=== PATIENT | male | born 1965 | race African-American/Black ===

== ENCOUNTER 2016-10-02 18:04 | Inpatient (IN) | payer OTHER ==
[~2016-10-02] VITALS: Ht 172.7 cm; Wt 72.6 kg
[~2016-10-02 18:04] MED LIST: IBUPROFEN600 MG ORAL; LORazepam Inj 2mg/ml 1ml ONE; VALIUM5 MG ORAL
[2016-10-02] MEDS ORDERED: DILANTIN100 MG ORAL (18:14)
[2016-10-02] MEDS ORDERED: LORazepam Inj 2mg/ml 1ml IM ONE (18:15)
--- NOTE | 2016-10-02 18:27 | Emergency Room Report ---
History of Present Illness General Chief Complaint: Seizure Source: Friend, Medical Record Present Illness HPI 51 YOM with known epilepsy, presents with seizure. BIBEMS. Unable to place IV. Patient had a second seizure in the ED coming in. Has blood in mouth, likely bit lip/tongue. Per EMS, patient compliant with dilantin except for today , "drank ETOH instead." No other trauma on scene per EMS. No family members presents. EMR reviewed, previous visit for ETOH withdrawal seizure. Allergies: Coded Allergies: No Known Allergies (Unverified , 02/10/15) Patient History Past Medical History: seizures Past Surgical History: unable to obtain Pertinent Family History: unable to obtain Social History: Reports: alcohol use Immunizations: UTD Reviewed Nursing Documentation: PMH: Agreed, PSxH: Agreed Nursing Documentation-PMH Past Medical History: No History, Except For Hx Seizures: Yes Review of Systems All Other Systems: limited - Seizure, post-ictal Physical Exam Vital Signs Date Time Temp Pulse Resp B/P Pulse Ox O2 Delivery O2 Flow Rate FiO2 10/02/16 18:05 98.8 165 23 124/104 95 Room Air Sp02 EP Interpretation: reviewed, abnormal General Appearance: normal inspection, other - seizing Head: normocephalic, atraumatic Eyes: bilateral eye EOMI, bilateral eye PERRL ENT: normal ENT inspection, no angioedema, TMs + canals normal, uvula midline, other - blood in oropharyx, small abrasion to tongue Neck: normal inspection, full range of motion, supple, no bony tend Respiratory: normal inspection, lungs clear, normal breath sounds, no respiratory distress, no retraction, no accessory muscle use, no wheezing Cardiovascular #1: regular rate, rhythm, no edema Gastrointestinal: normal inspection, normal bowel sounds, non tender, soft, no guarding, no hernia Genitourinary: no CVA tenderness Musculoskeletal: normal inspection, back normal, normal range of motion, Yusef' s Sign negative Neurologic: normal inspection, responsive, clinical specialist III-XII nml as tested, motor strength/tone normal, speech normal Psychiatric: normal inspection, judgement/insight normal, mood/affect normal Skin: normal inspection, normal color, no rash Medical Decision Making Diagnostic Impression: Primary Impression: Seizure disorder ER Course Bicarb level low and ABG with metabolic alkalosis likely d/t hyperpnea due to seizures Seizures ablated with IV ativan in ED 1g Keppra given All anti-epileptic levels are 0. ETOH level 39 - expected higher based on endorsed recent ETOH binge, but if this is low, likely ETOH withdrawal seizures Endorsed to Dr Guthrie for tele admission at 719pm EKG Diagnostic Results Rate: tachycardiac Rhythm: NSR ST Segments: no acute changes ASA given to the pt in ED: No Rhythm Strip Diag. Results EP Interpretation: yes Rate: 110 Rhythm: NSR, no PVC's, no ectopy Last Vital Signs Date Time Temp Pulse Resp B/P Pulse Ox O2 Delivery O2 Flow Rate FiO2 10/02/16 18:05 98.8 165 23 124/104 95 Room Air Status: improved Disposition: ADMITTED INPATIENT Condition: Serious Referrals: NOT CHOSEN IPA/,REFERRING (PCP) MERLINE RODRIGUEZ M.D. Oct 02, 2016 18:27
[2016-10-02] MEDS ORDERED: LORazepam Inj 2mg/ml 1ml IV ONE (18:30)
[2016-10-02 18:32] VITALS: BP 110/67
[2016-10-02 18:44] LABS: BASOPHILS % (AUTO) 3.1 % (0.0-2.0); EOSINOPHILS % (AUTO) 0.2 % (0.0-3.0); LYMPHOCYTES % (AUTO) 23.9 % (20.0-45.0); MEAN CORPUSCULAR HEMOGLOBIN 33.1 PG (27.0-31.0); MEAN CORPUSCULAR HGB CONC 32.1 G/DL (32.0-36.0); MEAN CORPUSCULAR VOLUME 103 FL (80-99); MEAN PLATELET VOLUME 6.2 FL (6.5-10.1); NEUTROPHILS % (AUTO) 61.9 % (45.0-75.0); PLATELET COUNT 225 K/UL (150-450); RED BLOOD COUNT 4.76 M/UL (4.70-6.10); RED CELL DISTRIBUTION WIDTH 12.4 % (11.6-14.8)
[2016-10-02] MEDS ORDERED: levETIRAcetam 1,000 MG in D5W 110 ML IVPB STA (18:52)
[2016-10-02 18:55] LABS: ACETAMINOPHEN < 10 ug/mL (10-30); ALCOHOL 39 mg/dL
[2016-10-02] MEDS ORDERED: levETIRAcetam 500mg vial IV ONE (19:22)
[2016-10-02 20:04] LABS: ALANINE AMINOTRANSFERASE 27 U/L (3-41); ALBUMIN/GLOBULIN RATIO 1.2 (1.0-2.7); ASPARTATE AMINO TRANSFERASE 78 U/L (5-40); CALCIUM 9.7 mg/dL (8.6-10.2); CHLORIDE 92 mEQ/L (98-107); CREATININE 0.8 mg/dL (0.7-1.2); GLOMERULAR FILTRATION RATE > 60 mL/min (>60); HEMOLYSIS 9; POTASSIUM 3.9 mEQ/L (3.4-4.9); SODIUM 145 mEQ/L (135-145); TOTAL PROTEIN 8.2 g/dL (6.6-8.7)
[2016-10-02 20:10] LABS: ANION GAP 44 (5-15)
[2016-10-02 20:13] LABS: CARBON DIOXIDE 9 mEQ/L (20-30)
[2016-10-02 20:40] VITALS: BP 123/69
[2016-10-02 21:26] VITALS: BP 120/59
[2016-10-02 22:25] LABS: ABG BASE EXCESS -1.3
[2016-10-02 22:26] LABS: ABG ALLEN TEST POSITIVE; ABG PCO2 31.6 mmHg (35.0-45.0)
[2016-10-02] MEDS ORDERED: Miralax 17gm pkt ORAL PRN (23:30)
[2016-10-02] MEDS ORDERED: chlordiazePOXIDE 25mg Cap ORAL PRN (23:30)
[2016-10-02] MEDS ORDERED: LORazepam Inj 2mg/ml 1ml IV PRN (23:30)
[2016-10-02] MEDS ORDERED: Morphine Sulfate 2mg/ml Inj IVP PRN (23:30)
[2016-10-02] MEDS ORDERED: Zolpidem 5mg tab ORAL PRN (23:30)
[2016-10-02] MEDS ORDERED: Mylanta II UD 30ml ORAL PRN (23:30)
[2016-10-03 00:16] VITALS: BP 119/76
[2016-10-03 04:14] VITALS: BP 122/82
[2016-10-03 07:32] LABS: ALANINE AMINOTRANSFERASE 21 U/L (3-41); ALBUMIN/GLOBULIN RATIO 1.2 (1.0-2.7); ANION GAP 18 (5-15); ASPARTATE AMINO TRANSFERASE 57 U/L (5-40); CALCIUM 9.3 mg/dL (8.6-10.2); CARBON DIOXIDE 26 mEQ/L (20-30); CHLORIDE 98 mEQ/L (98-107); CREATININE 0.6 mg/dL (0.7-1.2); GLOMERULAR FILTRATION RATE > 60 mL/min (>60); HEMOLYSIS 5; MEAN CORPUSCULAR HEMOGLOBIN 34.1 PG (27.0-31.0); MEAN CORPUSCULAR VOLUME 100 FL (80-99); MEAN PLATELET VOLUME 7.9 FL (6.5-10.1); PLATELET COUNT 206 K/UL (150-450); POTASSIUM 3.9 mEQ/L (3.4-4.9); RED BLOOD COUNT 4.31 M/UL (4.70-6.10); SODIUM 142 mEQ/L (135-145); TOTAL PROTEIN 7.3 g/dL (6.6-8.7); WHITE BLOOD COUNT 18.3 K/UL (4.8-10.8)
[2016-10-03 07:46] VITALS: BP 130/89
[2016-10-03] MEDS ORDERED: Thiamine HCl 100 MG, Folic Acid 1 MG, Magnesium Sulfate 2,000 MG, Multivitamin - 12 Inj... IV SCH ×5 (08:00)
[2016-10-03] MEDS: chlordiazePOXIDE 25mg Cap ORAL PRN (08:05)
[2016-10-03] MEDS: Heparin 5000 units/ml inj SUBQ SCH ×2 (09:05→22:14)
[2016-10-03] MEDS: Thiamine 100mg in D5W 55ml IVPB SCH (09:05)
[2016-10-03] MEDS: Phenytoin 100mg cap ORAL SCH ×3 (09:05→19:13)
[2016-10-03] MEDS: Folic Acid 1 MG, Magnesium Sulfate 2,000 MG, Multivitamin - 12 Injection 10 ML in NS w/... IV SCH (09:06)
[2016-10-03 11:28] VITALS: BP 123/78
[2016-10-03 11:53] LABS: BAND NEUTROPHILS % (MANUAL) 1 % (0-8); BASOPHILS % (MANUAL) 0 % (0-2); EOSINOPHILS % (MANUAL) 0 % (0-3); LYMPHOCYTES % (MANUAL) 3 % (20-45); NEUTROPHILS % (MANUAL) 88 % (45-75); PLATELET ESTIMATE ADEQUATE; PLATELET MORPHOLOGY NORMAL; TOTAL CELLS COUNTED 100
[2016-10-03 11:54] LABS: STOMATOCYTES OCCASIONAL
--- NOTE | 2016-10-03 11:58 | History and Physical ---
History of Present Illness General Date patient seen: Oct 03, 2016 Reason for Hospitalization: Seizure Present Illness HPI 51 year old with known hx of epilepsy, ETOH abuse BIBA with CC of seizure, he had a second seizure in the ED. He was treated and admitted to telemetry. Currently he is awake, stating that he ran out of his Dilantin a few month ago. He also stated that he started drinking. Allergies: Coded Allergies: No Known Allergies (Unverified , 02/10/15) Medication History Scheduled Phenytoin Sodium Extended* (Dilantin*), Unknown Dose ORAL THREE TIMES A DAY, ( Reported) Scheduled PRN Diazepam* (Valium*), 5 MG ORAL BID PRN for Muscle Spasm Ibuprofen* (Motrin*), 600 MG ORAL Q8H PRN for For Pain Patient History Healthcare decision maker Resuscitation status Full Code Advanced Directive on File No Past Medical/Surgical History Past Medical/Surgical History: (1) Alcohol withdrawal seizure (2) Seizure disorder (3) Alcohol withdrawal seizure Review of Systems All Other Systems: negative except mentioned in HPI Physical Exam General Appearance: WD/WN Lines, tubes and drains: peripheral, central line HEENT: normocephalic, atraumatic Neck: non-tender, normal alignment Respiratory/Chest: chest wall non-tender, lungs clear Breasts: no masses Cardiovascular/Chest: normal peripheral pulses Abdomen: normal bowel sounds, non tender Genitourinary/Rectal: normal genital exam Last 24 Hour Vital Signs Date Time Temp Pulse Resp B/P Pulse Ox O2 Delivery O2 Flow Rate FiO2 10/03/16 11:28 99.0 110 20 123/78 95 Room Air 10/03/16 08:00 111 10/03/16 07:46 99.1 124 20 130/89 96 Room Air 10/03/16 04:14 98.5 121 22 122/82 97 Room Air 10/03/16 04:00 125 10/03/16 00:16 98.8 130 20 119/76 98 Room Air 10/03/16 00:00 126 10/02/16 21:26 98.2 132 22 120/59 96 Room Air 10/02/16 20:41 98.7 143 19 110/67 94 Room Air 10/02/16 20:40 98.5 130 24 123/69 100 Room Air 10/02/16 19:29 143 19 Room Air 10/02/16 18:32 98.7 143 19 110/67 94 Room Air 10/02/16 18:05 98.8 165 23 124/104 95 Room Air Intake and Output 10/02/16 10/03/16 19:00 07:00 Intake Total 270 ml Output Total 300 ml Balance -30 ml Intake IV Total 270 ml Output Urine Total 300 ml # Voids 4 # Bowel Movements 4 Laboratory Tests Test 10/02/16 18:22 10/02/16 19:00 10/02/16 20:33 10/03/16 05:00 White Blood Count 10.0 K/UL (4.8-10.8) 18.3 K/UL (4.8-10.8) #H Red Blood Count 4.76 M/UL (4.70-6.10) 4.31 M/UL (4.70-6.10) L Hemoglobin 15.7 G/DL (14.2-18.0) 14.7 G/DL (14.2-18.0) Hematocrit 49.0 % (42.0-52.0) 43.1 % (42.0-52.0) Mean Corpuscular Volume 103 FL (80-99) H 100 FL (80-99) H Mean Corpuscular Hemoglobin 33.1 PG (27.0-31.0) H 34.1 PG (27.0-31.0) H Mean Corpuscular Hemoglobin Concent 32.1 G/DL (32.0-36.0) 34.0 G/DL (32.0-36.0) Red Cell Distribution Width 12.4 % (11.6-14.8) 12.0 % (11.6-14.8) Platelet Count 225 K/UL (150-450) 206 K/UL (150-450) Mean Platelet Volume 6.2 FL (6.5-10.1) L 7.9 FL (6.5-10.1) Neutrophils (%) (Auto) 61.9 % (45.0-75.0) % (45.0-75.0) Lymphocytes (%) (Auto) 23.9 % (20.0-45.0) % (20.0-45.0) Monocytes (%) (Auto) 11.0 % (1.0-10.0) H % (1.0-10.0) Eosinophils (%) (Auto) 0.2 % (0.0-3.0) % (0.0-3.0) Basophils (%) (Auto) 3.1 % (0.0-2.0) H % (0.0-2.0) Sodium Level 145 mEQ/L (135-145) 142 mEQ/L (135-145) Potassium Level 3.9 mEQ/L (3.4-4.9) 3.9 mEQ/L (3.4-4.9) Chloride Level 92 mEQ/L (98-107) L 98 mEQ/L (98-107) Carbon Dioxide Level 9 mEQ/L (20-30) *L 26 mEQ/L (20-30) Anion Gap 44 (5-15) H 18 (5-15) H Blood Urea Nitrogen 3 mg/dL (7-23) L 4 mg/dL (7-23) L Creatinine 0.8 mg/dL (0.7-1.2) 0.6 mg/dL (0.7-1.2) L Estimat Glomerular Filtration Rate > 60 mL/min (>60) > 60 mL/min (>60) Glucose Level 140 mg/dL (74-106) H 124 mg/dL (74-106) H Calcium Level 9.7 mg/dL (8.6-10.2) 9.3 mg/dL (8.6-10.2) Total Bilirubin 0.8 mg/dL (0.0-1.2) 1.0 mg/dL (0.0-1.2) Aspartate Amino Transf (AST/SGOT) 78 U/L (5-40) H 57 U/L (5-40) H Alanine Aminotransferase (ALT/SGPT) 27 U/L (3-41) 21 U/L (3-41) Alkaline Phosphatase 81 U/L (40-129) 64 U/L (40-129) Total Creatine Kinase 130 U/L (38-174) Total Protein 8.2 g/dL (6.6-8.7) 7.3 g/dL (6.6-8.7) Albumin 4.5 g/dL (3.5-5.2) 4.1 g/dL (3.5-5.2) Globulin 3.7 g/dL 3.2 g/dL Albumin/Globulin Ratio 1.2 (1.0-2.7) 1.2 (1.0-2.7) Salicylates Level < 1 mg/dL (10-30) L Acetaminophen Level < 10 ug/mL (10-30) L Phenytoin (Dilantin) Level < 0.8 ug/mL (10-20) L Serum Alcohol 39 mg/dL Urine Opiates Screen Negative (NEGATIVE) Urine Barbiturates Screen Negative (NEGATIVE) Phencyclidine (PCP) Screen Negative (NEGATIVE) Urine Amphetamines Screen Negative (NEGATIVE) Urine Benzodiazepines Screen Negative (NEGATIVE) Urine Cocaine Screen Negative (NEGATIVE) Urine Marijuana (THC) Screen Negative (NEGATIVE) Arterial Blood pH 7.453 (7.350-7.450) Arterial Blood Partial Pressure CO2 31.6 mmHg (35.0-45.0) L Arterial Blood Partial Pressure O2 100.5 mmHg (75.0-100.0) H Arterial Blood HCO3 21.6 mmol/L (22.0-26.0) L Arterial Blood Oxygen Saturation 97.6 % (92.0-98.0) Arterial Blood Base Excess -1.3 Cesar Test Positive Neutrophils % (Manual) Pending Lymphocytes % (Manual) Pending Platelet Estimate Pending Platelet Morphology Pending Microbiology Date/Time Source Procedure Growth Status 10/02/16 22:15 Stool Clostridium difficile Toxin Assay - Final Complete Height (Feet): 5 Height (Inches): 8.00 Weight (Pounds): 160 Medications Current Medications Medications (Trade) Dose Ordered Sig/Tonny Route PRN Reason Start Time Stop Time Status Last Admin Dose Admin Acetaminophen (Tylenol) 650 mg Q4H PRN ORAL fever 10/02/16 23:30 11/01/16 23:29 Al Hydroxide/Mg Hydroxide (Mylanta II) 30 ml Q6H PRN ORAL dyspepsia 10/02/16 23:30 11/01/16 23:29 Chlordiazepoxide (Librium) 25 mg Q6H PRN ORAL anxiety and tachycardia 10/03/16 11:30 10/10/16 11:29 10/03/16 08:05 Dextrose STAT PRN IV Hypoglycemia 10/02/16 23:30 11/01/16 23:29 Diazepam (Valium) 5 mg BID PRN ORAL Muscle Spasm 10/02/16 23:30 3/4/17 23:29 Folic Acid 1 mg/ Magnesium Sulfate 2000 mg/ Multivitamins 10 ml/Sodium Chloride 1,014.2 ml @ 125 mls/ hr Q24H IV 10/03/16 09:00 11/02/16 08:59 10/03/16 09:06 Heparin Sodium (Porcine) (Heparin 5000 units/ml) 5,000 units EVERY 12 HOURS SUBQ 10/03/16 09:00 11/02/16 08:59 10/03/16 09:05 Lorazepam (Ativan 2mg/ml 1ml) 2 mg EVERY HOUR PRN IV seizures 10/02/16 23:30 10/09/16 23:29 Morphine Sulfate (Morphine Sulfate) 1 mg Q4H PRN IVP For Pain 10/02/16 23:30 10/09/16 23:29 Ondansetron HCl (Zofran) 4 mg Q6H PRN IVP Nausea & Vomiting 10/02/16 23:30 11/01/16 23:29 10/03/16 02:50 Phenytoin (Dilantin) 100 mg THREE TIMES A DAY ORAL 10/03/16 09:00 11/02/16 08:59 10/03/16 09:05 Polyethylene Glycol (Miralax) 17 gm HSPRN PRN ORAL Constipation 10/02/16 23:30 11/01/16 23:29 Thiamine HCl/ Dextrose (Vitamin B1/D5W) 56 ml @ 112 mls/hr Q24H IVPB 10/03/16 09:00 11/02/16 08:59 10/03/16 09:05 Zolpidem Tartrate (Ambien) 5 mg HSPRN PRN ORAL Insomnia 10/02/16 23:30 11/01/16 23:29 Assessment/Plan Problem List: (1) Alcohol withdrawal seizure ICD Codes: F10.239 - Alcohol dependence with withdrawal, unspecified SNOMED: 826046994 (2) Seizure disorder ICD Codes: G40.909 - Epilepsy, unspecified, not intractable, without status epilepticus SNOMED: 484181676 (3) Non-compliance ICD Codes: Z91.19 - Patient's noncompliance with other medical treatment and regimen SNOMED: 8684182 Assessment/Plan resume Dilantin Banana bag Iv fluids Neuro evaluation YAMILET HUNT Oct 03, 2016 11:58
[2016-10-03] MEDS ORDERED: chlorproMAZINE 10mg tab ORAL PRN (12:00)
--- NOTE | 2016-10-03 12:18 | Neurology Progress Note ---
Objective Physical Exam Last Vital Signs Date Time Temp Pulse Resp B/P Pulse Ox O2 Delivery O2 Flow Rate FiO2 10/03/16 11:28 99.0 110 20 123/78 95 Room Air Laboratory Tests Test 10/02/16 18:22 10/02/16 19:00 10/02/16 20:33 10/03/16 05:00 White Blood Count 10.0 K/UL (4.8-10.8) 18.3 K/UL (4.8-10.8) #H Red Blood Count 4.76 M/UL (4.70-6.10) 4.31 M/UL (4.70-6.10) L Hemoglobin 15.7 G/DL (14.2-18.0) 14.7 G/DL (14.2-18.0) Hematocrit 49.0 % (42.0-52.0) 43.1 % (42.0-52.0) Mean Corpuscular Volume 103 FL (80-99) H 100 FL (80-99) H Mean Corpuscular Hemoglobin 33.1 PG (27.0-31.0) H 34.1 PG (27.0-31.0) H Mean Corpuscular Hemoglobin Concent 32.1 G/DL (32.0-36.0) 34.0 G/DL (32.0-36.0) Red Cell Distribution Width 12.4 % (11.6-14.8) 12.0 % (11.6-14.8) Platelet Count 225 K/UL (150-450) 206 K/UL (150-450) Mean Platelet Volume 6.2 FL (6.5-10.1) L 7.9 FL (6.5-10.1) Neutrophils (%) (Auto) 61.9 % (45.0-75.0) % (45.0-75.0) Lymphocytes (%) (Auto) 23.9 % (20.0-45.0) % (20.0-45.0) Monocytes (%) (Auto) 11.0 % (1.0-10.0) H % (1.0-10.0) Eosinophils (%) (Auto) 0.2 % (0.0-3.0) % (0.0-3.0) Basophils (%) (Auto) 3.1 % (0.0-2.0) H % (0.0-2.0) Sodium Level 145 mEQ/L (135-145) 142 mEQ/L (135-145) Potassium Level 3.9 mEQ/L (3.4-4.9) 3.9 mEQ/L (3.4-4.9) Chloride Level 92 mEQ/L (98-107) L 98 mEQ/L (98-107) Carbon Dioxide Level 9 mEQ/L (20-30) *L 26 mEQ/L (20-30) Anion Gap 44 (5-15) H 18 (5-15) H Blood Urea Nitrogen 3 mg/dL (7-23) L 4 mg/dL (7-23) L Creatinine 0.8 mg/dL (0.7-1.2) 0.6 mg/dL (0.7-1.2) L Estimat Glomerular Filtration Rate > 60 mL/min (>60) > 60 mL/min (>60) Glucose Level 140 mg/dL (74-106) H 124 mg/dL (74-106) H Calcium Level 9.7 mg/dL (8.6-10.2) 9.3 mg/dL (8.6-10.2) Total Bilirubin 0.8 mg/dL (0.0-1.2) 1.0 mg/dL (0.0-1.2) Aspartate Amino Transf (AST/SGOT) 78 U/L (5-40) H 57 U/L (5-40) H Alanine Aminotransferase (ALT/SGPT) 27 U/L (3-41) 21 U/L (3-41) Alkaline Phosphatase 81 U/L (40-129) 64 U/L (40-129) Total Creatine Kinase 130 U/L (38-174) Total Protein 8.2 g/dL (6.6-8.7) 7.3 g/dL (6.6-8.7) Albumin 4.5 g/dL (3.5-5.2) 4.1 g/dL (3.5-5.2) Globulin 3.7 g/dL 3.2 g/dL Albumin/Globulin Ratio 1.2 (1.0-2.7) 1.2 (1.0-2.7) Salicylates Level < 1 mg/dL (10-30) L Acetaminophen Level < 10 ug/mL (10-30) L Phenytoin (Dilantin) Level < 0.8 ug/mL (10-20) L Serum Alcohol 39 mg/dL Urine Opiates Screen Negative (NEGATIVE) Urine Barbiturates Screen Negative (NEGATIVE) Phencyclidine (PCP) Screen Negative (NEGATIVE) Urine Amphetamines Screen Negative (NEGATIVE) Urine Benzodiazepines Screen Negative (NEGATIVE) Urine Cocaine Screen Negative (NEGATIVE) Urine Marijuana (THC) Screen Negative (NEGATIVE) Arterial Blood pH 7.453 (7.350-7.450) Arterial Blood Partial Pressure CO2 31.6 mmHg (35.0-45.0) L Arterial Blood Partial Pressure O2 100.5 mmHg (75.0-100.0) H Arterial Blood HCO3 21.6 mmol/L (22.0-26.0) L Arterial Blood Oxygen Saturation 97.6 % (92.0-98.0) Arterial Blood Base Excess -1.3 Cesar Test Positive Differential Total Cells Counted 100 Neutrophils % (Manual) 88 % (45-75) H Lymphocytes % (Manual) 3 % (20-45) L Monocytes % (Manual) 8 % (1-10) Eosinophils % (Manual) 0 % (0-3) Basophils % (Manual) 0 % (0-2) Band Neutrophils 1 % (0-8) Platelet Estimate Adequate Platelet Morphology Normal Stomatocytes Occasional Impression/Recommendations Problems: (1) Seizure disorder (2) Non-compliance Status: stable Recommendations #[id number] ATILIO CHOWDHURY Oct 03, 2016 12:18
[2016-10-03] MEDS ORDERED: Phenytoin 500 MG in NS 110 ML IVPB ONE (14:00)
[2016-10-03 16:00] VITALS: BP 99/60
[2016-10-03] MEDS ORDERED: Tubing IV Secondary IV ONE (16:27)
[2016-10-03] MEDS ORDERED: NS 275ml ONE (16:27)
[2016-10-03] MEDS ORDERED: Phenytoin 250mg/5ml vial ONE (19:02)
--- NOTE | 2016-10-03 19:38 | Consultation ---
DATE OF CONSULTATION: 10/03/2016 NEUROLOGICAL CONSULTATION CONSULTING PHYSICIAN: González Myers M.D. REFERRING PHYSICIAN: Marvin Guthrie M.D. HISTORY OF PRESENT ILLNESS: This is a 51-year-old gentleman who is seen in neurological consultation to evaluate the exacerbation of chronic seizure disorder. The patient informed me that he has chronic seizures, which he felt were related to his alcohol abuse, but he was maintained previously on Dilantin, but had no seizures for the last year and he stopped taking medications. He also tried to stop drinking alcohol, but later clarifying that he actually does drink a small amount of beer. The patient was brought to this hospital after he had episodes of seizure. There was another seizure when he was brought to emergency room. He has signs of bitten tongue and lips. On arrival, his vital signs, blood pressure 124/104, respirations 20, heart rate of 165, and temperature 98. His initial laboratory work included a chemistry panel with alcohol level of 39 and phenytoin less than 0.8. Chemistry panel with carbon dioxide of 9, chloride 92, anion gap of 44, blood sugar 140, elevated AST of 78, and CPK of 120. His CBC study was unremarkable except elevated MCV and MCH. Repeat study today revealed WBC 18.3. The patient was admitted for further diagnostic studies and treatment. He was started on Dilantin 100 mg t.i.d., p.r.n. Zofran, p.r.n. lorazepam, Librium p.r.n., thiamine, and he was loaded with Keppra 1000 mg. Since admission, there was no further seizure activity. The patient developed persistent hiccup. FAMILY HISTORY: Noncontributory. SOCIAL HISTORY: The patient lives with his girlfriend. He is on disability. PAST MEDICAL HISTORY: History of alcohol abuse, history of seizure activities, and history of chronic psychiatric disease, as a result of which, he was placed on General Relief. The patient is off antipsychotic treatment. HABITS: The patient denies smoking, denies drug abuse, but admits to drinking "beer." REVIEW OF SYSTEMS: Denies headache or dizziness. No chest pain. No palpitation. No respiratory problem. Denies abdominal pain or discomfort. No urine or bowel incontinence. He has some hiccup and some bitten tongue. PHYSICAL EXAMINATION: GENERAL: This is a well-developed, well-nourished man, not in acute distress, lying comfortably in bed asleep. He is easily arousable. VITAL SIGNS: Stable except persistent sinus tachycardia, rate of 110. HEENT: Head, normocephalic. No evidence of injuries except the bitten tongue. NECK: Supple. No meningeal signs. MUSCULOSKELETAL: Unremarkable. There are no deformities. Peripheral pulses 1+ and symmetric. MENTAL STATUS: The patient is alert and oriented x3. Speech is fluent. Language intact. There is no aphasia. No apraxia. Cooperative and follows commands. CRANIAL NERVES: Cranial Nerve II: Pupils both responding to light and accommodation. Extraocular movements are intact. No nystagmus. CRANIAL NERVE V: Normal corneal responses. CRANIAL NERVE VII: No facial asymmetry. CRANIAL NERVE VIII: Grossly normal hearing. CRANIAL NERVE IX THROUGH XII: Tongue is in midline. Symmetric palate elevation. MOTOR EXAMINATION: Normal muscle tone. Strength 5/5 in all extremities. No involuntary movement. Deep tendon reflexes are 1+ and symmetric with downgoing toes on both sides. SENSORY EXAMINATION: Normal to pinprick and light touch. GAIT: Somewhat stooped, but stable. IMPRESSION: 1. Chronic seizure disorder exacerbation due to noncompliance. 2. Alcohol abuse, alcohol intoxication. 3. Chronic psychiatric disorder. 4. History of recurrent hiccups. RECOMMENDATION: Talked to the patient to restart the use of Dilantin. We will reload him with 1 g, followed by 300 mg at bedtime. Continue with thiamine and folate supplements. Recheck blood levels in a.m. We will follow with you. Thank you for allowing me to see this interesting patient in neurological consultation. González Myers M.D. DR: KAT JOB#: [id number] CC:
[2016-10-03 20:00] VITALS: BP 87/60
[2016-10-04 00:37] VITALS: BP 104/71
[2016-10-04] MEDS: chlordiazePOXIDE 25mg Cap ORAL PRN ×2 (01:47→12:49)
[2016-10-04 04:10] VITALS: BP 116/76
[2016-10-04 08:02] VITALS: BP 120/81
[2016-10-04] MEDS: Phenytoin 100mg cap ORAL SCH ×2 (09:15→12:42)
[2016-10-04] MEDS: Heparin 5000 units/ml inj SUBQ SCH (09:16)
[2016-10-04] MEDS: Thiamine 100mg in D5W 55ml IVPB SCH (10:04)
[2016-10-04] MEDS: Folic Acid 1 MG, Magnesium Sulfate 2,000 MG, Multivitamin - 12 Injection 10 ML in NS w/... IV SCH (10:38)
[2016-10-04 11:21] VITALS: BP 98/63
--- NOTE | 2016-10-04 12:11 | Neurology Progress Note ---
Interim History Interim History ROS Limited/Unobtainable: No Complaints: none Events: noted to be confused in AM Objective Physical Exam Last Vital Signs Date Time Temp Pulse Resp B/P Pulse Ox O2 Delivery O2 Flow Rate FiO2 10/04/16 11:21 98.6 113 20 98/63 99 Room Air General: well developed, well nourished, no acute distress Head: normocophalic, atraumatic Neck: no rigidity Neurologic Exam Mental Status: awake, alert, other - forgetful, ox2 Speech: normal speech, no dysarthia Language: normal language, no aphasia Cranial Nerve II: fundus normal, visual sheikh, no papilledema Cranial Nerves III, IV, : PERRLA, EOMI, pupils Cranial Nerve V: normal facial sensations, temporales function normal, masseters function normal, pterygoids function normal Cranial Nerve VII: no facial asymmetry, normal facial expressions Cranial Nerve VIII: normal hearing, no nystagmus Cranial Nerve IX: normal palate elevation, gag response Cranial Nerve X: no voice hoarseness Cranial Nerve XI: SCM symmetric, trapezii function normal Cranial Nerve XII: tongue midline, no tongue atrophy/fasciculations Motor System: normal muscle tone, strength 5/5, no involuntary movement, no muscle wasting Sensory: normal pinprick, normal light touch, normal position sense, normal graphesthesia Coordination: normal finger to nose bilaterally, normal heel to frances bilaterally, negative Romberg test Deep Tendon Reflexes: 0 ankle (L), 0 ankle (R), 0 bicep (L), 0 bicep (R), 0 brachioradialis (L), 0 brachioradialis (R), 0 knee (L), 0 knee (R), 0 tricep (L) , 0 tricep (R) Reflexes: flexor plantar (L), flexor plantar (R) Impression/Recommendations Problems: (1) Seizure disorder (2) Non-compliance (3) Episode of confusion Status: stable Recommendations EEG #[id number] DPH level tsh b12 MRI brain ATILIO CHOWDHURY Oct 04, 2016 12:11
[2016-10-04 13:23] LABS: CHOLESTEROL/HDL RATIO 2.8 (3.3-4.4)
[2016-10-04 13:29] LABS: THYROID STIMULATING HORMONE 2.01 uIU/mL (0.300-4.500)
--- NOTE | 2016-10-04 14:43 | Pulmonology Progress Note ---
Assessment/Plan Problems: (1) Alcohol withdrawal seizure (2) Seizure disorder (3) Non-compliance (4) Tachycardia Assessment/Plan IV fluids prn benzodiazepines Anti-seizures by neurology MRI ordered Subjective ROS Limited/Unobtainable: No Constitutional: Reports: no symptoms HEENT: Repors: no symptoms Respiratory: Reports: no symptoms Cardiovascular: Reports: no symptoms Gastrointestinal/Abdominal: Reports: no symptoms Allergies: Coded Allergies: No Known Allergies (Unverified , 02/10/15) Objective Last 24 Hour Vital Signs Date Time Temp Pulse Resp B/P Pulse Ox O2 Delivery O2 Flow Rate FiO2 10/04/16 12:19 118 10/04/16 11:21 98.6 113 20 98/63 99 Room Air 10/04/16 08:08 124 10/04/16 08:02 96.9 114 20 120/81 97 Room Air 10/04/16 04:10 98.7 98 19 116/76 99 Room Air 10/04/16 04:00 111 10/04/16 00:37 98.6 100 21 104/71 98 Room Air 10/04/16 00:00 114 10/03/16 20:00 97.9 88 19 87/60 98 Room Air 10/03/16 20:00 86 10/03/16 16:00 99 10/03/16 16:00 97.9 101 20 99/60 97 Room Air Intake and Output 10/03/16 10/04/16 19:00 07:00 Intake Total 1131 ml 700 ml Output Total 500 ml Balance 1131 ml 200 ml Intake Oral 450 ml 200 ml IV Total 681 ml 500 ml Output Urine Total 500 ml # Voids 1 HEENT: normocephalic Respiratory/Chest: chest wall non-tender, lungs clear Cardiovascular: normal peripheral pulses, normal rate Abdomen: normal bowel sounds, no organomegaly Extremities: no cyanosis 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 Lymphatic: no neck adenopathy Microbiology Date/Time Source Procedure Growth Status 10/02/16 22:15 Stool Clostridium difficile Toxin Assay - Final Complete Laboratory Tests 10/04/16 12:45: Triglycerides Level 102, Cholesterol Level 149, LDL Cholesterol 76, HDL Cholesterol 53, Cholesterol/HDL Ratio 2.8L, Vitamin B12 Level 968H, Thyroid Stimulating Hormone (TSH) 2.010, Phenytoin (Dilantin) Level 5.5L Current Medications Medications (Trade) Dose Ordered Sig/Tonny Route PRN Reason Start Time Stop Time Status Last Admin Dose Admin Acetaminophen (Tylenol) 650 mg Q4H PRN ORAL fever 10/02/16 23:30 11/01/16 23:29 Al Hydroxide/Mg Hydroxide (Mylanta II) 30 ml Q6H PRN ORAL dyspepsia 10/02/16 23:30 11/01/16 23:29 Chlordiazepoxide (Librium) 25 mg Q6H PRN ORAL anxiety and tachycardia 10/03/16 11:30 10/10/16 11:29 10/04/16 12:49 Chlorpromazine (Thorazine) 10 mg Q6H PRN ORAL hiccup 10/03/16 12:00 11/02/16 11:59 10/03/16 13:14 Dextrose STAT PRN IV Hypoglycemia 10/02/16 23:30 11/01/16 23:29 Diazepam (Valium) 5 mg BID PRN ORAL Muscle Spasm 10/02/16 23:30 10/09/16 23:29 Folic Acid 1 mg/ Magnesium Sulfate 2000 mg/ Multivitamins 10 ml/Sodium Chloride 1,014.2 ml @ 125 mls/ hr Q24H IV 10/03/16 09:00 11/02/16 08:59 10/04/16 10:38 Heparin Sodium (Porcine) (Heparin 5000 units/ml) 5,000 units EVERY 12 HOURS SUBQ 10/03/16 09:00 11/02/16 08:59 10/04/16 09:16 Lorazepam (Ativan 2mg/ml 1ml) 2 mg EVERY HOUR PRN IV seizures 10/02/16 23:30 10/09/16 23:29 Morphine Sulfate (Morphine Sulfate) 1 mg Q4H PRN IVP For Pain 10/02/16 23:30 10/09/16 23:29 Ondansetron HCl (Zofran) 4 mg Q6H PRN IVP Nausea & Vomiting 10/02/16 23:30 11/01/16 23:29 10/03/16 02:50 Phenytoin (Dilantin) 100 mg THREE TIMES A DAY ORAL 10/03/16 09:00 11/02/16 08:59 10/04/16 12:42 Polyethylene Glycol (Miralax) 17 gm HSPRN PRN ORAL Constipation 10/02/16 23:30 11/01/16 23:29 Thiamine HCl/ Dextrose (Vitamin B1/D5W) 56 ml @ 112 mls/hr Q24H IVPB 10/03/16 09:00 11/02/16 08:59 10/04/16 10:04 Zolpidem Tartrate (Ambien) 5 mg HSPRN PRN ORAL Insomnia 10/02/16 23:30 11/01/16 23:29 YAMILET HUNT Oct 04, 2016 14:43
--- NOTE | 2016-10-04 15:12 | Cardiology Progress Note ---
Assessment/Plan Assessment/Plan [id number] sinus tachy demaand related etoh seizure / epilepsy agitation hr has improved form 140-160 at admission ot present level of 110's he seem agitated and wasn to go home if agrees to stay will order echo keep on ivf tsh normal consider u/a and urine tox screen Objective Last 24 Hour Vital Signs Date Time Temp Pulse Resp B/P Pulse Ox O2 Delivery O2 Flow Rate FiO2 10/04/16 12:19 118 10/04/16 11:21 98.6 113 20 98/63 99 Room Air 10/04/16 08:08 124 10/04/16 08:02 96.9 114 20 120/81 97 Room Air 10/04/16 04:10 98.7 98 19 116/76 99 Room Air 10/04/16 04:00 111 10/04/16 00:37 98.6 100 21 104/71 98 Room Air 10/04/16 00:00 114 10/03/16 20:00 97.9 88 19 87/60 98 Room Air 10/03/16 20:00 86 10/03/16 16:00 99 10/03/16 16:00 97.9 101 20 99/60 97 Room Air Intake and Output 10/03/16 10/04/16 19:00 07:00 Intake Total 1131 ml 700 ml Output Total 500 ml Balance 1131 ml 200 ml Intake Oral 450 ml 200 ml IV Total 681 ml 500 ml Output Urine Total 500 ml # Voids 1 Laboratory Tests Test 10/04/16 12:45 Triglycerides Level 102 mg/dL (< 150) Cholesterol Level 149 mg/dL (< 200) LDL Cholesterol 76 mg/dL (60-99) HDL Cholesterol 53 mg/dL (> 60) Cholesterol/HDL Ratio 2.8 (3.3-4.4) L Vitamin B12 Level 968 pg/mL (211-946) H Thyroid Stimulating Hormone (TSH) 2.010 uIU/mL (0.300-4.500) Phenytoin (Dilantin) Level 5.5 ug/mL (10-20) L Microbiology Date/Time Source Procedure Growth Status 10/02/16 22:15 Stool Clostridium difficile Toxin Assay - Final Complete LA NENA CRAIG Oct 04, 2016 15:12
--- NOTE | 2016-10-05 00:18 | Consultation ---
DATE OF CONSULTATION: 10/04/2016 CARDIOLOGY CONSULTATION CONSULTING PHYSICIAN: Celso Herrera M.D. REFERRING PHYSICIAN: Marvin Guthrie M.D. REASON FOR REFERRAL: Tachycardia. HISTORY OF PRESENT ILLNESS: This is a middle-aged gentleman, 51 years old, who presented to the hospital on 10/02/2016. He has a history of known epilepsy and presented with a seizure. Paramedics were not able to start an intravenous. The patient had a second seizure in the department, had blood in his mouth, likely from biting his tongue. He apparently is incompliant with Dilantin. The patient is drinking alcohol instead of taking the medication. He is treated with a heart rate of 140, has remained tachycardiac at a rate of 110. This consultation is requested for the patient. He denies any chest pain or pressure or tightness. There is no PND. No orthopnea. No palpitations. No dizziness or lightheadedness on standing. He has shortness of breath only if he is laid somewhere. He is actually packing and is removing his tele box in anticipation of going home on his own today. He must leave he states. PAST MEDICAL HISTORY: Positive for history of seizure. He denies any diabetes or high blood pressure, heart attack, cancer, stroke, hepatitis, tuberculosis, asthma, emphysema, ulcers or kidney problems, liver problems, thyroid problems, anemia, or arthritis. SOCIAL HISTORY: He does drink alcoholic beverages. He does not admit to how many. He does not smoke and does not use drugs. REVIEW OF SYSTEMS: GI: Denies any nausea, vomiting, diarrhea, or constipation. Genitourinary: Denies any burning on urination. Pulmonary: He denies any coughing or wheezing. Constitutional: Denies any fevers, chills, or night sweats. Neurologic: Denies any numbness or tingling or problems with balance. PHYSICAL EXAMINATION: GENERAL: Shows to be an elderly gentleman. He is somewhat tremulous and agitated. NECK: Supple. No jugular venous distention. LUNGS: Clear to auscultation and percussion CARDIAC: S1 is normal. S2 is normal. Regular rhythm. Tachycardic. No heaves, thrills, or gallops noted. ABDOMEN: Soft and nontender. Positive bowel sounds. EXTREMITIES: There is no edema. He is difficult to examine because he is constantly trying to get up and is not willing to put both of his legs on the bed. One leg is on the floor. LABORATORY AND DIAGNOSTIC VALUES: He has a white count of 18.3 with a hemoglobin of 14.7 and a platelet count of 206,000. White count on 10/02/2016 was 10, yesterday was 18.2. We do not have a white count from today. Blood gases, pH of 7.43, pCO2 of 32, pO2 of 105, and a bicarbonate of 21. His chemistry, sodium is 142, potassium 3.9, chloride 98, bicarbonate 26, BUN of 18, creatinine 0.6, and a glucose of 124. Calcium is 9.3. AST is 57 and ALT of 21. Total cholesterol 149 with LDL of 76 and HDL of 53. TSH of 2.1 and B12 of 968. Urinalysis is fairly unremarkable. He does not have any x-rays available for review. His EKG shows sinus tachycardia. His original EKG shows sinus tachycardia of 141. He has had documented heart rate in the emergency room in 163 in the physician's chart. The patient does not have any significant ST or T wave abnormalities on this EKG despite being at a rate of 141. ASSESSMENT AND PLAN: 1. Alcoholism with a history of seizure disorder and epilepsy. 2. Sinus tachycardia, likely multifactorial, and with agitation. Dr. Guthrie, this patient was seen in cardiac consultation. The patient certainly has improved with the heart rate in the 160s now down to 110s. He seems to be a bit agitated and wanted to go home. He remains tachycardic. I suspect that he is probably demand related and certainly an echocardiogram would be helpful to rule out any cardiovascular causes of tachycardia, although it is likely that this may be volume depletion in origin as well as his being in agitated state of mind. If he agrees to stay, I will order an echocardiogram and further testing including an echocardiogram and orthostatic vitals, to continue intravenous hydration for the time being as part of his treatment and workup. Celso Herrera M.D. DR: FÉLIX JOB#: [id number] CC:
--- NOTE | 2016-10-05 08:34 | Discharge Summary ---
Discharge Summary Hospital Course Date of Admission Oct 02, 2016 at 18:57 Date of Discharge Oct 04, 2016 at 15:30 Admitting Diagnosis SEIZURES HPI Geovanni Brar is a 51 year old male who was admitted on Oct 02, 2016 at 18:57 for Seizures Hospital Course dc summary#[id number] Discharge Discharge Disposition Patient signed AMA Discharge Diagnoses: Discharge Instructions Discharge Instructions Special Instructions I have been assigned to complete a D/C Summary on this account. I was not involved in the patient management Kaitlin Little NP ([facility]) Oct 05, 2016 08:34
--- NOTE | 2016-10-06 06:18 | Discharge Summary 2 SIG ---
DATE OF ADMISSION: 10/02/2016 DATE OF DISCHARGE: 10/04/2016 REASON FOR ADMISSION: 51-year-old male with known history of seizure disorder presented with a seizure episode. He was brought in by ambulance. The patient had a second seizure episode in the emergency department while coming in. He had blood in his mouth likely biting his lip and tongue. The patient stated that he drank alcohol. Otherwise, he was unable to provide further information. Workup in the emergency room revealed alcohol level of 39, bicarbonate level low 9, ABG revealed metabolic alkalosis likely secondary to hyperpnea due to the seizure. Seizures ablated in emergency department with the intravenous Ativan. Patient also received 1 gram of Keppra. Again alcohol level was 39, which was expected to be higher based on endorsed recent alcohol binge. Since the level was low, it was likely alcohol withdrawal seizure. EKG showed sinus tachycardia, no acute changes. Heart rate was in 140 to 160 range, pulse oximetry was stable on the room air, elevated AST with normal ALT. The ratio was more than 2:1. The patient was admitted to the hospital for further management. ADMITTING DIAGNOSES: 1. Alcohol withdrawal seizures. 2. Chronic seizure disorder. 3. Alcohol intoxication. 4. History of alcohol abuse. 5. Noncompliance. 6. Metabolic alkalosis. 7. Sinus tachycardia. HOSPITAL STAY: The patient was admitted. The patient was started on intravenous fluids with thiamine, folic acid, and multivitamin. Urine toxicology screen was negative. Dilantin level was subtherapeutic. Neuro consult was requested. Neurologist ordered an MRI of the brain as well as an EEG. B12 level was stable. TSH was stable. The patient was loaded with 1 gram of Dilantin and continued on 300 mg at bedtime. Reinforced compliance with medication. Per Neurology, seizures were likely chronic seizure disease exacerbation secondary to noncompliance ( subtherapeutic Dilantin level) plus alcohol withdrawal seizure ( recent binge of alcohol). Cardiology consult was requested due to the tachycardia; upon admission with heart rate was 140 to 160. No acute ischemic changes on EKG. Cardiology seen the patient, heart rate was down to 110. Per tool builder, it was sinus tachycardia, demand related. The patient was agitated. If the patient agreed to stay per Cardiology, he would order echocardiogram. The patient refused to stay and do the MRI well as the other testing. He stated that he will go to [facility] where he lives. He stated that he needs to leave to pay his rent, otherwise he was going to be evicted. Girlfriend at the bedside next to the patient. The risks and consequences of signing against medical advice were explained to the patient. Nevertheless, the patient signed the form. FINAL DIAGNOSES: 1. Alcohol withdrawal seizures versus 2. Chronic seizure disorder exacerbation secondary to noncompliance. 2. Seizure disorder. 3. Alcohol abuse. 4. Alcohol intoxication. 5. Noncompliance. 6. Sinus tachycardia, demand related. Marvin Guthrie M.D. I have been assigned to dictate discharge summary on this account and I was not involved in the patient's management. Kaitlin Little ([facility]) N.PMaria Fernanda DR: RAVI JOB#: [id number] CC: LAN
--- NOTE | 2016-10-07 08:29 | Cardiology Report ---
APPROVED REPORT EKG Measurement Heart [id number] Sinus tachycardia Possible Left atrial enlargement Cannot rule out Anterior infarct, age undetermined Abnormal ECG
== END 2016-10-04 15:30 | disposition left against medical advice (07) | DRG 770 ==
LOC: EDBD 18:04 → EMR 18:40 → 2E 18:57 → EDBEDREQ 19:50
DX: F10.239 Alcohol dependence with withdrawal, unspecified (principal); E87.3 Alkalosis; G40.909 Epilepsy, unspecified, not intractable, without status epilepticus; Z91.19 Patient's noncompliance with other medical treatment and regimen; F10.229 Alcohol dependence with intoxication, unspecified; R00.0 Tachycardia, unspecified; F99 Mental disorder, not otherwise specified; R45.1 Restlessness and agitation
CPT/HCPCS: 36415; 36600; 80053; 80061; 80185; 80300; 80329; 82550; 82607; 82803; 84443; 85007; 85025; 87493; 93005; J1165; J2405

== ENCOUNTER 2017-07-31 14:57 | Inpatient (IN) | payer OTHER ==
[~2017-07-31] VITALS: Ht 172.7 cm; Wt 68.0 kg
[~2017-07-31 14:57] MED LIST changes: +DILANTIN100 MG ORAL; -LORazepam Inj 2mg/ml 1ml ONE
--- NOTE | 2017-07-31 15:11 | Emergency Room Report ---
History of Present Illness General Chief Complaint: Seizure Source: Patient Present Illness HPI 52-year-old male, history of seizures, noncompliant with Dilantin, also history of alcohol abuse, drinks every day, presenting with seizure. EMS was called after a friend calling 911, so patient to have a generalized tonic-clonic seizure. Less than 2 minutes. Patient does not recall event. Patient was noted to have trauma in his head, states that this happened a few days ago but states "I don't know how that happened" States that he drinks alcohol every day, more than a pint, however states that the last drink was yesterday He was last admitted in September 2016 for alcohol withdrawal and signed out AGAINST MEDICAL ADVICE Allergies: Coded Allergies: No Known Allergies (Unverified , 02/10/15) Patient History Past Medical History: see triage record Past Surgical History: none Pertinent Family History: none Reviewed Nursing Documentation: PMH: Agreed, PSxH: Agreed Nursing Documentation-PMH Past Medical History: No History, Except For Hx Cardiac Problems: No Hx Cancer: No Hx Gastrointestinal Problems: No Hx Neurological Problems: Yes Hx Seizures: Yes Review of Systems All Other Systems: negative except mentioned in HPI Physical Exam Vital Signs Date Time Temp Pulse Resp B/P (MAP) Pulse Ox O2 Delivery O2 Flow Rate FiO2 07/31/17 14:50 99.1 144 16 124/87 99 Room Air Sp02 EP Interpretation: reviewed, normal General Appearance: other - Disheveled middle-aged male, appears tremulous, however is awake alert and cooperating Head: normocephalic - Nonboggy hematoma on top of head, tender to palpation Eyes: bilateral eye normal inspection, bilateral eye PERRL, bilateral eye EOMI ENT: normal ENT inspection, normal pharynx, normal voice, moist mucus membranes Neck: normal inspection, full range of motion, supple Respiratory: normal inspection, lungs clear, normal breath sounds, no respiratory distress, no retraction, no wheezing, speaking full sentences, chest symmetrical Cardiovascular #1: no edema, tachycardia Cardiovascular #2: 2+ radial (R), 2+ radial (L) Gastrointestinal: normal inspection, non tender, soft, non-distended, no guarding Musculoskeletal: normal inspection, back normal, normal range of motion, non- tender Neurologic: normal inspection, alert, oriented x3, responsive, motor strength/ tone normal, sensory intact, normal gait, speech normal Psychiatric: normal inspection, judgement/insight normal, memory normal Skin: normal inspection, normal color, no rash, warm/dry, well hydrated, normal turgor Procedures Critical Care Time Critical Care Time 40 minutes of CC time 52-year-old male with seizure, alcohol abuse VS: Tachycardic Airway patent. Not hypoxic. PLAN: IV access, labs, troponin, Ativan when necessary, fluids Anticipate admission to Tele CC time also includes review of labs, review of EMR, discussion with family and paperwork from SNF, d/w hospitalist CC could include dosing of pressors, additional Abx CC time does not include procedures Medical Decision Making Diagnostic Impression: Primary Impression: Alcohol withdrawal seizure Additional Impression: Elevated troponin ER Course 52-year-old male, history of alcohol abuse, also history of primary seizures on Dilantin, with p/w seizure DDX: Alcohol withdrawal Primary seizure, triggered by infection UTI/PNA vs. dehydration vs. medication non compliance Electrolyte disturbance: hypoglycemia vs. hyponatremia vs. hypocalcemia vs. hypomagnesemia Cardiac: Arrythmia/acs Intracranial pathology: intracranial bleed, stroke Tox Plan: BGM EKG Labs, seizure medication levels, tox labs Ativan PRN, Librium, Dilantin ER course: Patient tremulous, tachycardic in the 120s, given Ativan and Librium No further seizures in ED however remains tachy pt required multiple doses of ativan CT Head neg will admit There is mild elevation of his troponin, 0.07, again taken later 3 hours is 0.08. I do not think that patient is having an NSTEMI, patient's troponin likely mildly elevated secondary to patient's tachycardia from withdrawal Disposition: Patient will be admitted to tele for seizure and alcohol withdrawal D/W hospitalist Dr Krishnamurthy who is covering for Dr Guthrie EKG Diagnostic Results EP Interpretation: Yes Rate: Tachycardic Rhythm: NSR ST Segments: No acute changes ASA given to patient: No Rhythm Strip EP Interpretation: Yes Rate: 120 Rhythm: NSR, no PVCs, no ectopy Laboratory Tests Test 07/31/17 15:30 White Blood Count 6.2 K/UL (4.8-10.8) Red Blood Count 4.59 M/UL (4.70-6.10) L Hemoglobin 15.1 G/DL (14.2-18.0) Hematocrit 46.3 % (42.0-52.0) Mean Corpuscular Volume 101 FL (80-99) H Mean Corpuscular Hemoglobin 32.8 PG (27.0-31.0) H Mean Corpuscular Hemoglobin Concent 32.5 G/DL (32.0-36.0) Red Cell Distribution Width 12.1 % (11.6-14.8) Platelet Count 138 K/UL (150-450) L Mean Platelet Volume 8.9 FL (6.5-10.1) Neutrophils (%) (Auto) % (45.0-75.0) Lymphocytes (%) (Auto) % (20.0-45.0) Monocytes (%) (Auto) % (1.0-10.0) Eosinophils (%) (Auto) % (0.0-3.0) Basophils (%) (Auto) % (0.0-2.0) Neutrophils % (Manual) Pending Lymphocytes % (Manual) Pending Platelet Estimate Pending Platelet Morphology Pending Urine Color Yellow Urine Appearance Slightly cloudy Urine pH 5 (4.5-8.0) Urine Specific [place] 1.030 (1.005-1.035) Urine Protein 2+ (NEGATIVE) H Urine Glucose (UA) Negative (NEGATIVE) Urine Ketones 3+ (NEGATIVE) H Urine Occult Blood 2+ (NEGATIVE) H Urine Nitrite Negative (NEGATIVE) Urine Bilirubin Negative (NEGATIVE) Urine Urobilinogen Normal MG/DL (0.0-1.0) Urine Leukocyte Esterase Negative (NEGATIVE) Urine RBC 20-30 /HPF (0 - 0) H Urine WBC 2-4 /HPF (0 - 0) Urine Squamous Epithelial Cells Occasional /LPF Urine Bacteria Occasional /HPF (NONE) Sodium Level 134 MMOL/L (136-145) L Potassium Level 3.6 MMOL/L (3.5-5.1) Chloride Level 92 MMOL/L (98-107) L Carbon Dioxide Level 21 MMOL/L (21-32) Anion Gap 21 mmol/L (5-15) H Blood Urea Nitrogen 4 mg/dL (7-18) L Creatinine 0.7 MG/DL (0.55-1.30) Estimate Glomerular Filtration Rate > 60 mL/min (>60) Glucose Level 98 MG/DL (74-106) Calcium Level 8.1 MG/DL (8.5-10.1) L Total Bilirubin 0.6 MG/DL (0.2-1.0) Aspartate Amino Transferase (AST) 124 U/L (15-37) H Alanine Aminotransferase (ALT) 51 U/L (12-78) Alkaline Phosphatase 78 U/L (46-116) Troponin I Pending Total Protein 7.3 G/DL (6.4-8.2) Albumin 3.4 G/DL (3.4-5.0) Globulin 3.9 g/dL Albumin/Globulin Ratio 0.9 (1.0-2.7) L Urine Opiates Screen Negative (NEGATIVE) Urine Barbiturates Screen Negative (NEGATIVE) Phenytoin (Dilantin) Level < 0.4 ug/mL (10-20) L Phencyclidine (PCP) Screen Negative (NEGATIVE) Urine Amphetamines Screen Negative (NEGATIVE) Urine Benzodiazepines Screen Negative (NEGATIVE) Urine Cocaine Screen Negative (NEGATIVE) Urine Marijuana (THC) Screen Negative (NEGATIVE) Serum Alcohol 21 mg/dL CT/MRI/US Diagnostic Results CT/MRI/US Diagnostic Results : Imaging Test Ordered: CT Head Impression CT HEAD: Comparison: CT head 02/10/15 No ICH, mass effect or edema. No evidence of acute cortical stroke. Mild generalized atrophy. Periventricular small vessel ischemic change. Visualized sinuses and mastoid air cells are clear aside from mild mucosal thickening maxillary and ethmoid sinuses. No skull fractures.. Last Vital Signs Date Time Temp Pulse Resp B/P (MAP) Pulse Ox O2 Delivery O2 Flow Rate FiO2 07/31/17 14:50 99.1 144 16 124/87 99 Room Air Disposition: ADMITTED INPATIENT Condition: Serious Patient Instructions: Alcohol Withdrawal, [id number], Seizure, Adult Renae Hernandez M.D. Jul 31, 2017 15:11
[2017-07-31] MEDS ORDERED: LORazepam Inj 2mg/ml 1ml IV ONE ×4 (15:15→18:15)
[2017-07-31] MEDS ORDERED: chlordiazePOXIDE 25mg Cap ORAL ONE (15:15)
[2017-07-31 15:53] LABS: APPEARANCE,URINE SLIGHTLY CLOUDY; BILIRUBIN, URINE NEGATIVE (NEGATIVE); GLUCOSE, URINE (UA) NEGATIVE (NEGATIVE); KETONES,URINE 3+ (NEGATIVE); LEUKOCYTE ESTERASE ,URINE NEGATIVE (NEGATIVE); NITRITE,URINE NEGATIVE (NEGATIVE); PH,URINE 5 (4.5-8.0); PROTEIN,URINE 2+ (NEGATIVE); UROBILINOGEN,URINE NORMAL MG/DL (0.0-1.0)
[2017-07-31 15:58] LABS: COLOR,URINE YELLOW
[2017-07-31 16:32] LABS: HEMATOCRIT 46.3 % (42.0-52.0); HEMOGLOBIN 15.1 G/DL (14.2-18.0); MEAN CORPUSCULAR VOLUME 101 FL (80-99); PLATELET COUNT 138 K/UL (150-450); RED BLOOD COUNT 4.59 M/UL (4.70-6.10); RED CELL DISTRIBUTION WIDTH 12.1 % (11.6-14.8); WHITE BLOOD COUNT 6.2 K/UL (4.8-10.8)
[2017-07-31 16:40] LABS: ANION GAP 21 mmol/L (5-15); BLOOD UREA NITROGEN 4 mg/dL (7-18); CALCIUM 8.1 MG/DL (8.5-10.1); CARBON DIOXIDE 21 MMOL/L (21-32); CHLORIDE 92 MMOL/L (98-107); CREATININE 0.7 MG/DL (0.55-1.30); POTASSIUM 3.6 MMOL/L (3.5-5.1); SODIUM 134 MMOL/L (136-145)
[2017-07-31 16:43] LABS: ALANINE AMINOTRANSFERASE 51 U/L (12-78); ALBUMIN 3.4 G/DL (3.4-5.0); ALBUMIN/GLOBULIN RATIO 0.9 (1.0-2.7); ALKALINE PHOSPHATASE 78 U/L (46-116); ASPARTATE AMINO TRANSFERASE 124 U/L (15-37); BILIRUBIN,TOTAL 0.6 MG/DL (0.2-1.0)
[2017-07-31 17:59] VITALS: BP 154/65
[2017-07-31 19:29] VITALS: BP 118/79
[2017-07-31] MEDS ORDERED: cefTRIAXone 1 GM in NS 55 ML IVPB ONE ×2 (19:45→22:45)
[2017-07-31] MEDS ORDERED: Acetaminophen 500mg (ES) tab ORAL ONE (19:45)
[2017-07-31 21:46] VITALS: BP 95/55
--- NOTE | 2017-07-31 22:31 | Infectious Diseases Prog Note ---
Assessment/Plan Problems: (1) Altered mental status Assessment & Plan: with seizure , possible meningitis , will start vancomycin and ceftriaxon , monitor mental status (2) Diarrhea Assessment & Plan: will start metronidazol empirically and send stool culture and C diff (3) Fever Assessment & Plan: due to the above, will send blood culture and start vancomcyin and ceftriaxon to cover for possible sepsis /meningitis (4) Alcohol withdrawal seizure Assessment & Plan: restart seizure meds, consult neurology (5) Non-compliance Assessment & Plan: recommend counseling and alcohol rehab (6) Oral thrush Assessment & Plan: will start nystatin and screen for HIV Subjective Allergies: Coded Allergies: No Known Allergies (Unverified , 02/10/15) Objective Vital Signs Last 24 Hour Vital Signs Date Time Temp Pulse Resp B/P (MAP) Pulse Ox O2 Delivery O2 Flow Rate FiO2 07/31/17 21:46 102.4 136 24 95/55 96 Room Air 07/31/17 20:46 102.4 07/31/17 19:29 99.1 136 23 118/79 97 Room Air 07/31/17 17:59 99.1 146 23 154/65 96 Room Air 07/31/17 15:00 144 16 Room Air 07/31/17 14:50 99.1 144 16 124/87 99 Room Air Height (Feet): 5 Height (Inches): 8.00 Weight (Pounds): 160 Laboratory Tests Test 07/31/17 15:30 07/31/17 18:06 White Blood Count 6.2 K/UL (4.8-10.8) Red Blood Count 4.59 M/UL (4.70-6.10) L Hemoglobin 15.1 G/DL (14.2-18.0) Hematocrit 46.3 % (42.0-52.0) Mean Corpuscular Volume 101 FL (80-99) H Mean Corpuscular Hemoglobin 32.8 PG (27.0-31.0) H Mean Corpuscular Hemoglobin Concent 32.5 G/DL (32.0-36.0) Red Cell Distribution Width 12.1 % (11.6-14.8) Platelet Count 138 K/UL (150-450) L Mean Platelet Volume 8.9 FL (6.5-10.1) Neutrophils (%) (Auto) % (45.0-75.0) Lymphocytes (%) (Auto) % (20.0-45.0) Monocytes (%) (Auto) % (1.0-10.0) Eosinophils (%) (Auto) % (0.0-3.0) Basophils (%) (Auto) % (0.0-2.0) Differential Total Cells Counted 100 Neutrophils % (Manual) 74 % (45-75) Lymphocytes % (Manual) 12 % (20-45) L Monocytes % (Manual) 14 % (1-10) H Eosinophils % (Manual) 0 % (0-3) Basophils % (Manual) 0 % (0-2) Band Neutrophils 0 % (0-8) Platelet Estimate Decreased L Platelet Morphology Normal Red Blood Cell Morphology Normal Urine Color Yellow Urine Appearance Slightly cloudy Urine pH 5 (4.5-8.0) Urine Specific [place] 1.030 (1.005-1.035) Urine Protein 2+ (NEGATIVE) H Urine Glucose (UA) Negative (NEGATIVE) Urine Ketones 3+ (NEGATIVE) H Urine Occult Blood 2+ (NEGATIVE) H Urine Nitrite Negative (NEGATIVE) Urine Bilirubin Negative (NEGATIVE) Urine Urobilinogen Normal MG/DL (0.0-1.0) Urine Leukocyte Esterase Negative (NEGATIVE) Urine RBC 20-30 /HPF (0 - 0) H Urine WBC 2-4 /HPF (0 - 0) Urine Squamous Epithelial Cells Occasional /LPF Urine Bacteria Occasional /HPF (NONE) Sodium Level 134 MMOL/L (136-145) L Potassium Level 3.6 MMOL/L (3.5-5.1) Chloride Level 92 MMOL/L (98-107) L Carbon Dioxide Level 21 MMOL/L (21-32) Anion Gap 21 mmol/L (5-15) H Blood Urea Nitrogen 4 mg/dL (7-18) L Creatinine 0.7 MG/DL (0.55-1.30) Estimat Glomerular Filtration Rate > 60 mL/min (>60) Glucose Level 98 MG/DL (74-106) Calcium Level 8.1 MG/DL (8.5-10.1) L Total Bilirubin 0.6 MG/DL (0.2-1.0) Aspartate Amino Transf (AST/SGOT) 124 U/L (15-37) H Alanine Aminotransferase (ALT/SGPT) 51 U/L (12-78) Alkaline Phosphatase 78 U/L (46-116) Troponin I 0.077 ng/mL (0.000-0.056) 0.088 ng/mL (0.000-0.056) Total Protein 7.3 G/DL (6.4-8.2) Albumin 3.4 G/DL (3.4-5.0) Globulin 3.9 g/dL Albumin/Globulin Ratio 0.9 (1.0-2.7) L Urine Opiates Screen Negative (NEGATIVE) Urine Barbiturates Screen Negative (NEGATIVE) Phenytoin (Dilantin) Level < 0.4 ug/mL (10-20) L Phencyclidine (PCP) Screen Negative (NEGATIVE) Urine Amphetamines Screen Negative (NEGATIVE) Urine Benzodiazepines Screen Negative (NEGATIVE) Urine Cocaine Screen Negative (NEGATIVE) Urine Marijuana (THC) Screen Negative (NEGATIVE) Serum Alcohol 21 mg/dL Current Medications Medications (Trade) Dose Ordered Sig/Tonny Route PRN Reason Start Time Stop Time Status Last Admin Dose Admin Sodium Chloride 1,000 ml @ 999 mls/hr Q1H1M ONCE IV 07/31/17 21:45 07/31/17 22:45 07/31/17 21:44 Lubna Bey M.D. Jul 31, 2017 22:31
[2017-07-31 23:00] VITALS: BP 96/61
[2017-07-31] MEDS ORDERED: LORazepam Inj 2mg/ml 1ml IV PRN (23:00)
[2017-07-31] MEDS ORDERED: chlordiazePOXIDE 25mg Cap ORAL PRN (23:00)
[2017-08-01] VITALS: BP 109/72
[2017-08-01] MEDS: NS w/KCl 20mEq 1,000 ML IV SCH ×6 (00:30→23:21)
[2017-08-01] MEDS: Vancomycin 1.5 GM/D5W 250ML IVPB SCH ×3 (01:41→23:16)
[2017-08-01 04:00] VITALS: BP 122/74
[2017-08-01 05:03] LABS: BASOPHILS % (AUTO) 0.7 % (0.0-2.0); HEMATOCRIT 37.5 % (42.0-52.0); HEMOGLOBIN 12.8 G/DL (14.2-18.0); MEAN CORPUSCULAR VOLUME 100 FL (80-99); MONOCYTES % (AUTO) 12.2 % (1.0-10.0); NEUTROPHILS % (AUTO) 81.1 % (45.0-75.0); PLATELET COUNT 122 K/UL (150-450); RED BLOOD COUNT 3.75 M/UL (4.70-6.10); RED CELL DISTRIBUTION WIDTH 12.4 % (11.6-14.8); WHITE BLOOD COUNT 11.9 K/UL (4.8-10.8)
[2017-08-01 05:21] LABS: ALANINE AMINOTRANSFERASE 31 U/L (12-78); ALBUMIN 2.4 G/DL (3.4-5.0); ALBUMIN/GLOBULIN RATIO 0.7 (1.0-2.7); ALKALINE PHOSPHATASE 55 U/L (46-116); ANION GAP 9 mmol/L (5-15); ASPARTATE AMINO TRANSFERASE 77 U/L (15-37); BILIRUBIN,TOTAL 0.5 MG/DL (0.2-1.0); BLOOD UREA NITROGEN 4 mg/dL (7-18); CALCIUM 6.6 MG/DL (8.5-10.1); CARBON DIOXIDE 26 MMOL/L (21-32); CHLORIDE 101 MMOL/L (98-107); CREATININE 0.6 MG/DL (0.55-1.30); SODIUM 136 MMOL/L (136-145)
[2017-08-01 08:00] VITALS: BP 107/75
--- NOTE | 2017-08-01 08:21 | Diagnostic Imaging Report ---
Indication: Reason For Exam: PAIN Technique: Continuous helical CT scanning of the head was performed without intravenous contrast material. Axial and coronal 5 mm sections were generated. Dose: Total Dose Length Product - DLP [address] Dose Index - CTDIvol(s) 70.38 mGy. Automated exposure control was utilized for dose reduction. Comparison: 02/10/2015 Findings: There is prominence of cortical sulci and the ventricular system. Periventricular low density is present. There is no shift of midline structures. No abnormal extra-axial fluid collections are noted. There is no evidence of intracerebral bleeding. No other abnormal high or low density areas are noted within the brain. Impression: Atrophy. Chronic small vessel white matter ischemic change. No acute abnormality. The above report is concordant with preliminary reading by [employer] . The CT scanner at [facility] is accredited by the [employer] and the scans are performed using protocols designed to limit radiation exposure to as low as reasonably achievable to attain images of sufficient resolution adequate for diagnostic evaluation.
--- NOTE | 2017-08-01 09:44 | Neurology Progress Note ---
Objective Physical Exam Last Vital Signs Date Time Temp Pulse Resp B/P (MAP) Pulse Ox O2 Delivery O2 Flow Rate FiO2 08/01/17 04:24 106 08/01/17 04:00 97.7 19 122/74 97 Room Air Laboratory Tests Test 07/31/17 15:30 07/31/17 18:06 08/01/17 03:15 White Blood Count 6.2 K/UL (4.8-10.8) 11.9 K/UL (4.8-10.8) #H Red Blood Count 4.59 M/UL (4.70-6.10) L 3.75 M/UL (4.70-6.10) L Hemoglobin 15.1 G/DL (14.2-18.0) 12.8 G/DL (14.2-18.0) L Hematocrit 46.3 % (42.0-52.0) 37.5 % (42.0-52.0) L Mean Corpuscular Volume 101 FL (80-99) H 100 FL (80-99) H Mean Corpuscular Hemoglobin 32.8 PG (27.0-31.0) H 34.0 PG (27.0-31.0) H Mean Corpuscular Hemoglobin Concent 32.5 G/DL (32.0-36.0) 34.0 G/DL (32.0-36.0) Red Cell Distribution Width 12.1 % (11.6-14.8) 12.4 % (11.6-14.8) Platelet Count 138 K/UL (150-450) L 122 K/UL (150-450) L Mean Platelet Volume 8.9 FL (6.5-10.1) 9.3 FL (6.5-10.1) Neutrophils (%) (Auto) % (45.0-75.0) 81.1 % (45.0-75.0) H Lymphocytes (%) (Auto) % (20.0-45.0) 6.0 % (20.0-45.0) L Monocytes (%) (Auto) % (1.0-10.0) 12.2 % (1.0-10.0) H Eosinophils (%) (Auto) % (0.0-3.0) 0.0 % (0.0-3.0) Basophils (%) (Auto) % (0.0-2.0) 0.7 % (0.0-2.0) Differential Total Cells Counted 100 Neutrophils % (Manual) 74 % (45-75) Lymphocytes % (Manual) 12 % (20-45) L Monocytes % (Manual) 14 % (1-10) H Eosinophils % (Manual) 0 % (0-3) Basophils % (Manual) 0 % (0-2) Band Neutrophils 0 % (0-8) Platelet Estimate Decreased L Platelet Morphology Normal Red Blood Cell Morphology Normal Urine Color Yellow Urine Appearance Slightly cloudy Urine pH 5 (4.5-8.0) Urine Specific [place] 1.030 (1.005-1.035) Urine Protein 2+ (NEGATIVE) H Urine Glucose (UA) Negative (NEGATIVE) Urine Ketones 3+ (NEGATIVE) H Urine Occult Blood 2+ (NEGATIVE) H Urine Nitrite Negative (NEGATIVE) Urine Bilirubin Negative (NEGATIVE) Urine Urobilinogen Normal MG/DL (0.0-1.0) Urine Leukocyte Esterase Negative (NEGATIVE) Urine RBC 20-30 /HPF (0 - 0) H Urine WBC 2-4 /HPF (0 - 0) Urine Squamous Epithelial Cells Occasional /LPF Urine Bacteria Occasional /HPF (NONE) Sodium Level 134 MMOL/L (136-145) L 136 MMOL/L (136-145) Potassium Level 3.6 MMOL/L (3.5-5.1) 3.0 MMOL/L (3.5-5.1) L Chloride Level 92 MMOL/L (98-107) L 101 MMOL/L (98-107) Carbon Dioxide Level 21 MMOL/L (21-32) 26 MMOL/L (21-32) Anion Gap 21 mmol/L (5-15) H 9 mmol/L (5-15) Blood Urea Nitrogen 4 mg/dL (7-18) L 4 mg/dL (7-18) L Creatinine 0.7 MG/DL (0.55-1.30) 0.6 MG/DL (0.55-1.30) Estimat Glomerular Filtration Rate > 60 mL/min (>60) > 60 mL/min (>60) Glucose Level 98 MG/DL (74-106) 97 MG/DL (74-106) Calcium Level 8.1 MG/DL (8.5-10.1) L 6.6 MG/DL (8.5-10.1) L Total Bilirubin 0.6 MG/DL (0.2-1.0) 0.5 MG/DL (0.2-1.0) Aspartate Amino Transf (AST/SGOT) 124 U/L (15-37) H 77 U/L (15-37) H Alanine Aminotransferase (ALT/SGPT) 51 U/L (12-78) 31 U/L (12-78) Alkaline Phosphatase 78 U/L (46-116) 55 U/L (46-116) Troponin I 0.077 ng/mL (0.000-0.056) 0.088 ng/mL (0.000-0.056) Total Protein 7.3 G/DL (6.4-8.2) 5.7 G/DL (6.4-8.2) L Albumin 3.4 G/DL (3.4-5.0) 2.4 G/DL (3.4-5.0) L Globulin 3.9 g/dL 3.3 g/dL Albumin/Globulin Ratio 0.9 (1.0-2.7) L 0.7 (1.0-2.7) L Urine Opiates Screen Negative (NEGATIVE) Urine Barbiturates Screen Negative (NEGATIVE) Phenytoin (Dilantin) Level < 0.4 ug/mL (10-20) L Phencyclidine (PCP) Screen Negative (NEGATIVE) Urine Amphetamines Screen Negative (NEGATIVE) Urine Benzodiazepines Screen Negative (NEGATIVE) Urine Cocaine Screen Negative (NEGATIVE) Urine Marijuana (THC) Screen Negative (NEGATIVE) Serum Alcohol 21 mg/dL Impression/Recommendations Problems: (1) Alcohol withdrawal seizure (2) Non-compliance (3) Diarrhea (4) Elevated troponin Status: unchanged Recommendations #[id number] ATILIO CHOWDHURY Aug 01, 2017 09:44
[2017-08-01] MEDS ORDERED: LORazepam Inj 2mg/ml 1ml IV PRN (10:00)
[2017-08-01] MEDS: cefTRIAXone 2 GM in D5W 55 ML IVPB SCH ×2 (10:33→20:45)
[2017-08-01] MEDS ORDERED: Folic Acid 1 MG, Magnesium Sulfate 2,000 MG, Multivitamin - 12 Injection 10 ML in NS w/... IV SCH (10:45)
[2017-08-01] MEDS ORDERED: Phenytoin 1,000 MG in NS 275 ML IVPB ONE (11:00)
[2017-08-01] MEDS: chlordiazePOXIDE 25mg Cap ORAL SCH ×2 (11:21→21:59)
[2017-08-01] MEDS: Thiamine HCl 100 MG in D5W 55 ML IV SCH (11:51)
--- NOTE | 2017-08-01 11:57 | Infectious Diseases Prog Note ---
Assessment/Plan Problems: (1) Altered mental status Assessment & Plan: with seizure , possible meningitis , continue vancomycin and ceftriaxon , monitor mental status, may need LP if no improvement in the next 24 hours , neurology is following (2) Diarrhea Assessment & Plan: on metronidazol empirically pending stool culture and C diff (3) Fever Assessment & Plan: due to the above, on vancomcyin , ceftriaxon to cover for possible sepsis /meningitis , and metronidazol for possible colitis pending stool study (4) Alcohol withdrawal seizure Assessment & Plan: restart seizure meds, watch for withdrawal, neurology is following (5) Non-compliance Assessment & Plan: recommend counseling and alcohol rehab Subjective ROS Limited/Unobtainable: Yes Allergies: Coded Allergies: No Known Allergies (Unverified , 02/10/15) Subjective he was more awake and alert, denied ay headache or photophobia , no fever or chills, no cough or SOB, more responsive Objective Vital Signs Last 24 Hour Vital Signs Date Time Temp Pulse Resp B/P (MAP) Pulse Ox O2 Delivery O2 Flow Rate FiO2 08/01/17 08:00 107 08/01/17 04:24 106 08/01/17 04:00 97.7 109 19 122/74 97 Room Air 109 08/01/17 00:00 98.8 122 16 109/72 95 Room Air 07/31/17 23:00 102.4 136 24 95/55 96 Room Air 07/31/17 23:00 120 23 96/61 95 Room Air 07/31/17 21:46 102.4 136 24 95/55 96 Room Air 07/31/17 20:46 102.4 07/31/17 19:29 99.1 136 23 118/79 97 Room Air 07/31/17 17:59 99.1 146 23 154/65 96 Room Air 07/31/17 15:00 144 16 Room Air 07/31/17 14:50 99.1 144 16 124/87 99 Room Air Height (Feet): 5 Height (Inches): 8.00 Weight (Pounds): 150 General Appearance: WD/WN, no acute distress HEENT: normocephalic, atraumatic, anicteric, mucous membranes moist, PERRL, EOMI, pharynx normal, supple, no JVD, other - oral thrush Respiratory/Chest: chest wall non-tender, lungs clear, normal breath sounds, no respiratory distress, no accessory muscle use, decreased breath sounds Cardiovascular: normal peripheral pulses, normal rate, regular rhythm, no gallop/murmur, no JVD Abdomen: normal bowel sounds, soft, non tender, no organomegaly, non distended , no mass, no scars Extremities: no cyanosis, no clubbing Skin: no rash, no lesions, no ulcers, other - bruises Neurologic/Psychiatric: alert, responsive Lymphatic: no neck adenopathy, no groin adenopathy Laboratory Tests Test 07/31/17 15:30 07/31/17 18:06 08/01/17 03:15 White Blood Count 6.2 K/UL (4.8-10.8) 11.9 K/UL (4.8-10.8) #H Red Blood Count 4.59 M/UL (4.70-6.10) L 3.75 M/UL (4.70-6.10) L Hemoglobin 15.1 G/DL (14.2-18.0) 12.8 G/DL (14.2-18.0) L Hematocrit 46.3 % (42.0-52.0) 37.5 % (42.0-52.0) L Mean Corpuscular Volume 101 FL (80-99) H 100 FL (80-99) H Mean Corpuscular Hemoglobin 32.8 PG (27.0-31.0) H 34.0 PG (27.0-31.0) H Mean Corpuscular Hemoglobin Concent 32.5 G/DL (32.0-36.0) 34.0 G/DL (32.0-36.0) Red Cell Distribution Width 12.1 % (11.6-14.8) 12.4 % (11.6-14.8) Platelet Count 138 K/UL (150-450) L 122 K/UL (150-450) L Mean Platelet Volume 8.9 FL (6.5-10.1) 9.3 FL (6.5-10.1) Neutrophils (%) (Auto) % (45.0-75.0) 81.1 % (45.0-75.0) H Lymphocytes (%) (Auto) % (20.0-45.0) 6.0 % (20.0-45.0) L Monocytes (%) (Auto) % (1.0-10.0) 12.2 % (1.0-10.0) H Eosinophils (%) (Auto) % (0.0-3.0) 0.0 % (0.0-3.0) Basophils (%) (Auto) % (0.0-2.0) 0.7 % (0.0-2.0) Differential Total Cells Counted 100 Neutrophils % (Manual) 74 % (45-75) Lymphocytes % (Manual) 12 % (20-45) L Monocytes % (Manual) 14 % (1-10) H Eosinophils % (Manual) 0 % (0-3) Basophils % (Manual) 0 % (0-2) Band Neutrophils 0 % (0-8) Platelet Estimate Decreased L Platelet Morphology Normal Red Blood Cell Morphology Normal Urine Color Yellow Urine Appearance Slightly cloudy Urine pH 5 (4.5-8.0) Urine Specific [place] 1.030 (1.005-1.035) Urine Protein 2+ (NEGATIVE) H Urine Glucose (UA) Negative (NEGATIVE) Urine Ketones 3+ (NEGATIVE) H Urine Occult Blood 2+ (NEGATIVE) H Urine Nitrite Negative (NEGATIVE) Urine Bilirubin Negative (NEGATIVE) Urine Urobilinogen Normal MG/DL (0.0-1.0) Urine Leukocyte Esterase Negative (NEGATIVE) Urine RBC 20-30 /HPF (0 - 0) H Urine WBC 2-4 /HPF (0 - 0) Urine Squamous Epithelial Cells Occasional /LPF Urine Bacteria Occasional /HPF (NONE) Sodium Level 134 MMOL/L (136-145) L 136 MMOL/L (136-145) Potassium Level 3.6 MMOL/L (3.5-5.1) 3.0 MMOL/L (3.5-5.1) L Chloride Level 92 MMOL/L (98-107) L 101 MMOL/L (98-107) Carbon Dioxide Level 21 MMOL/L (21-32) 26 MMOL/L (21-32) Anion Gap 21 mmol/L (5-15) H 9 mmol/L (5-15) Blood Urea Nitrogen 4 mg/dL (7-18) L 4 mg/dL (7-18) L Creatinine 0.7 MG/DL (0.55-1.30) 0.6 MG/DL (0.55-1.30) Estimat Glomerular Filtration Rate > 60 mL/min (>60) > 60 mL/min (>60) Glucose Level 98 MG/DL (74-106) 97 MG/DL (74-106) Calcium Level 8.1 MG/DL (8.5-10.1) L 6.6 MG/DL (8.5-10.1) L Total Bilirubin 0.6 MG/DL (0.2-1.0) 0.5 MG/DL (0.2-1.0) Aspartate Amino Transf (AST/SGOT) 124 U/L (15-37) H 77 U/L (15-37) H Alanine Aminotransferase (ALT/SGPT) 51 U/L (12-78) 31 U/L (12-78) Alkaline Phosphatase 78 U/L (46-116) 55 U/L (46-116) Troponin I 0.077 ng/mL (0.000-0.056) 0.088 ng/mL (0.000-0.056) Total Protein 7.3 G/DL (6.4-8.2) 5.7 G/DL (6.4-8.2) L Albumin 3.4 G/DL (3.4-5.0) 2.4 G/DL (3.4-5.0) L Globulin 3.9 g/dL 3.3 g/dL Albumin/Globulin Ratio 0.9 (1.0-2.7) L 0.7 (1.0-2.7) L Urine Opiates Screen Negative (NEGATIVE) Urine Barbiturates Screen Negative (NEGATIVE) Phenytoin (Dilantin) Level < 0.4 ug/mL (10-20) L Phencyclidine (PCP) Screen Negative (NEGATIVE) Urine Amphetamines Screen Negative (NEGATIVE) Urine Benzodiazepines Screen Negative (NEGATIVE) Urine Cocaine Screen Negative (NEGATIVE) Urine Marijuana (THC) Screen Negative (NEGATIVE) Serum Alcohol 21 mg/dL Current Medications Medications (Trade) Dose Ordered Sig/Tonny Route PRN Reason Start Time Stop Time Status Last Admin Dose Admin Acetaminophen (Tylenol) 650 mg Q8HR PRN ORAL Mild Pain/Temp > 100.5 07/31/17 23:00 08/30/17 22:59 Ceftriaxone Sodium 2 gm/ Dextrose 55 ml @ 110 mls/hr EVERY 12 HOURS IVPB 08/01/17 09:00 08/08/17 08:59 08/01/17 10:33 Chlordiazepoxide (Librium) 25 mg Q8HR ORAL 08/01/17 10:30 08/07/17 10:29 08/01/17 11:21 Folic Acid 1 mg/ Magnesium Sulfate 2000 mg/ Multivitamins 10 ml/Sodium Chloride 1,014.2 ml @ 125 mls/ hr Q24H IV 08/01/17 11:30 08/31/17 11:29 Lorazepam (Ativan 2mg/ml 1ml) 2 mg Q4H PRN IV Agitation seizure 08/01/17 10:00 08/08/17 09:59 Metronidazole 100 ml @ 100 mls/hr Q8HR IVPB 07/31/17 22:30 08/07/17 22:29 07/31/17 23:59 Sodium Chloride 1,000 ml @ 200 mls/hr Q5H IV 07/31/17 23:00 08/30/17 22:59 08/01/17 10:33 Thiamine HCl 100 mg/Dextrose 56 ml @ 112 mls/hr Q24H IV 08/01/17 11:30 08/31/17 11:29 Vancomycin HCl (Vanco rx to dose) 1 ea DAILY PRN MISC Per rx protocol 07/31/17 22:30 08/30/17 22:29 Vancomycin HCl/ Dextrose 250 ml @ 125 mls/hr Q12H IVPB 07/31/17 23:00 08/05/17 22:59 08/01/17 01:41 Lubna Bey M.D. Aug 01, 2017 11:57
[2017-08-01 12:00] VITALS: BP 122/67
[2017-08-01] MEDS: Folic Acid 1 MG, Magnesium Sulfate 2,000 MG, Multivitamin - 12 Injection 10 ML in NS w/... IV SCH (13:46)
[2017-08-01] MEDS ORDERED: Metoprolol 25mg tab ORAL ONE (14:30)
[2017-08-01] MEDS ORDERED: Metoprolol Succinate XL 50mg tab ORAL ONE (14:30)
[2017-08-01 16:00] VITALS: BP 130/60
--- NOTE | 2017-08-01 16:30 | Consultation ---
DATE OF CONSULTATION: 08/01/2017 NEUROLOGICAL CONSULTATION CONSULTING PHYSICIAN: González Myers M.D. REQUESTING PHYSICIAN: Robert Johnston M.D. HISTORY OF PRESENT ILLNESS: This is a 52-year-old man, seen in neurological consultation to evaluate the exacerbation of seizure activities. The patient has a chronic seizure disorder and known to be noncompliant, admitted now for not being taking some medication three times a week. He was brought to this facility after being observed with having generalized seizure. Apparently, he has heavy alcohol abuse drinking daily at least a pint of hard liquors. The patient now indicated that he had a previous seizure a few weeks ago, had head trauma, but has no recollection to what hospital he was. He is known to this facility since September 2016 when he was admitted with alcohol withdrawal seizure activity, loaded with Dilantin, discharged home against medical advice, and apparently was not keep taking medications His admission laboratory work included a phenytoin level less than 0.4, serum alcohol of 21. CBC study with elevated MCV and MCH, WBC of 11.9 and platelet count of 122,000. Chemistry panel with elevated troponin 0.077. Sodium 134. AST 124. Urinalysis 20 to 30 RBCs, 3+ ketones, and 2+ protein. CAT scan of the brain revealed periventricular low density, atrophy, signs of chronic small vessel ischemic changes, but no acute abnormalities noted. PAST MEDICAL HISTORY: The patient has a history of chronic seizure disorder, history of psychiatric disorder, and history of alcohol abuse. MEDICATIONS: The patient indicated prior to admission, he was taking Valium 5 mg twice a day for muscle spasms as needed as well as ibuprofen. He was supposed to take Dilantin 100 mg t.i.d., ALLERGIES: None reported. SOCIAL HISTORY: Smoker, alcohol abuse. FAMILY HISTORY: Unavailable. REVIEW OF SYMPTOMS: Aches and pains in low back region. No recollection of how he was brought to this facility. Generalized weakness. Denies chest pain or palpitations. Denies respiratory problems. PHYSICAL EXAMINATION: GENERAL: A well developed, somewhat ill-appearing and drowsy man, not in acute distress. VITAL SIGNS: Included heart rate of 106, temperature 97.7 degrees, blood pressure was 122/74. HEENT: Head normocephalic. There are signs of recent bruises. NECK: Supple. No meningeal signs. MUSCULOSKELETAL: Unremarkable. The patient has loose stool incontinent. Peripheral pulses 1+ symmetric. MENTAL STATUS: Arousable. Able to respond briefly, able to follow simple commands. He is slightly confused and amnestic on the event. CRANIAL NERVE II: Pupils both responding to light and accommodation. Extraocular movements intact. No nystagmus. CRANIAL NERVE V: Normal corneal responses. CRANIAL NERVE VII: No facial asymmetry. CRANIAL NERVE VIII: Normal hearing. CRANIAL NERVES IX THROUGH XII: Within normal limits. MOTOR: Revealed normal muscle tone. There is slight resting tremor of both upper extremities. Deep tendon reflexes 1+ symmetric with downgoing toes on both sides. SENSORY: Normal to pin stimulation. Gait not tested. IMPRESSION: 1. Chronic seizure disorder exacerbation due to noncompliance. 2. Alcohol abuse, withdrawal syndrome. 3. History of chronic psychiatric disorder. 4. Hyponatremia and hypocalcemia. 5. Abnormal troponin. RECOMMENDATION: Reload with Dilantin 1 g slow IV. Continue with Librium 25 mg q.8 h., Ativan 2 mg q.4 h. p.r.n. for breakthrough agitation or seizure activity. Start intravenous banana bag with magnesium, folate, and thiamine supplements. Thank you for allowing me to see this interesting patient in neurological consultation. González Myers M.D. DR: Pepe JOB#: [id number] CC:
--- NOTE | 2017-08-01 17:00 | Consultation ---
DATE OF CONSULTATION: 08/01/2017 INFECTIOUS DISEASES CONSULTATION CONSULTING PHYSICIAN: Lubna Bey M.D. REQUESTING PHYSICIAN: Robert Johnston M.D. REASON FOR CONSULTATION: Fever, diarrhea, and possible meningitis, recommendation for antibiotics treatment and management. HISTORY OF PRESENT ILLNESS: The patient is a 52-year-old male with history of seizure disorder, who is noncompliant with his seizure medication and alcohol abuse, who has been drinking daily over the last couple of days, was brought in to [facility] Emergency Room for breakthrough seizure. The patient was found by a friend seizing, who activated the emergency call and was found to have generalized tonic-clonic seizure activity. The patient was postictal, could not provide any history regarding the incident, but he stated that he was drinking everyday. In the emergency room, he was found to be febrile with temperature of 99.1 degrees. He was also altered. So, he was admitted to the hospital, started on IV antibiotics, and I was consulted by the primary admitting provider for antibiotics treatment and further management. As of note, the patient still altered, cannot provide any history. History was mainly obtained from the medical record and the nursing staff. PAST MEDICAL HISTORY: Significant for seizure disorder and alcohol abuse. PAST SURGICAL HISTORY: Negative. MEDICATIONS: He received Librium, Ativan, and ceftriaxone in the emergency room. For the rest of his medications, please refer to MAR. ALLERGIES: No known drug allergy. SOCIAL HISTORY: The patient lives alone at home. He drinks alcohol on daily basis, unclear whether he was using drugs or tobacco. FAMILY HISTORY: Unable to obtain. REVIEW OF SYSTEMS: Unable to obtain. The patient is poor historian. PHYSICAL EXAMINATION: VITAL SIGNS: Temperature 102.4 degrees, pulse 136, respirations 23, blood pressure 118/79, and pulse oximetry 97% on room air. GENERAL: Middle-aged male, lying in bed, obtunded, altered, not in acute distress. HEENT: Normocephalic and atraumatic. Mild bruises on the skull. Pupils reactive to light equally. Moist oral mucosa with thrush mainly on his tongue. NECK: Supple. No lymphadenopathy. CARDIOVASCULAR: He is tachycardic. S1 and S2 normal. No gallop or murmur. LUNGS: Diminished breathing sounds at the bases. Poor air entry. Normal respiratory effort. ABDOMEN: Soft, nontender, and nondistended. No organomegaly. No ascites. EXTREMITIES: No edema or cyanosis. SKIN: No rash or hives. NEUROLOGIC: Unable to perform. The patient does not follow commands. LABORATORY AND DIAGNOSTIC DATA: Labs showed white count of 6.2, hemoglobin of 15.1, hematocrit 46.3, and platelet count of 138,000. BUN of 4 and creatinine of 0.7. AST of 124 and ALT of 51. Urinalysis negative for nitrite, negative for leukocyte esterase, and WBC 2 to 4. Imaging, head CT scan showed atrophy and chronic small vessel white matter ischemic changes with no acute abnormalities. ASSESSMENT AND RECOMMENDATION: 1. Altered mental status with seizure activity, possible underlying meningitis. We will start the patient on vancomycin and ceftriaxone. Monitor mental status. May need lumbar puncture if no improvement in his condition. Continue seizure medicine as per Neurology. 2. Diarrhea. We will start the patient on metronidazole empirically and send stool culture and Clostridium difficile. 3. Fever, suspect due to the above. We will send blood culture. Start vancomycin and ceftriaxone to cover for possible sepsis and meningitis, pending further workup. 4. Alcohol withdrawal seizure. Continue to monitor in telemetry. Neurology is following. Restart seizure medication and consider alcohol withdrawal protocol. 5. Noncompliance with alcohol abuse. Recommend counseling and rehabilitation. Thank you for the consult. Infectious Diseases will continue to follow. Lubna Bey M.D. DR: Abiodun JOB#: [id number] CC:
[2017-08-01] MEDS: Nystatin Susp 500,000 units/5ml ORAL SCH ×3 (17:26→23:16)
[2017-08-01] MEDS ORDERED: Tubing IV Secondary IV ONE (17:29)
[2017-08-01] MEDS ORDERED: NS 275ml ONE (17:29)
--- NOTE | 2017-08-01 19:15 | Cardiology Report ---
APPROVED REPORT EKG Measurement Heart [id number] Sinus tachycardia Possible Left atrial enlargement Rightward axis Septal infarct, age undetermined Abnormal ECG
[2017-08-01 20:00] VITALS: BP 104/65
[2017-08-02] VITALS (7 sets, daily range): BP systolic 107–114; BP diastolic 58–78
--- NOTE | 2017-08-02 01:15 | History and Physical Report ---
DATE OF ADMISSION: 07/31/2017 NOTE: POOR AUDIO INTERNAL MEDICINE HISTORY AND PHYSICAL HISTORY OF PRESENT ILLNESS: The patient is a pleasant 52-year-old male with past medical history significant for seizure disorder, noncompliance, alcohol abuse, has been drinking daily over the past several days to weeks, presented to the ER with breakthrough seizure seizing activated in the emergency room, found to be in generalized tonic-clonic seizing with anterior and posterior currently sleepy. He has been drinking everyday. In the ER, he was noted to have a temperature of 99.3 and he was started on antibiotics. ID Service consulted. Currently, the patient has been started on vancomycin and ceftriaxone. May need lumbar puncture if it does not improve. Also having diarrhea at this time. He is on Flagyl empirically. He is on Ativan for alcohol withdrawal. He has also been seen by Neurology Service, recommending Dilantin p.r.n. PAST MEDICAL HISTORY: Chronic seizure disorder, psychiatric disorder, and alcohol abuse. MEDICATIONS: None reported. ALLERGIES: No known drug allergies. SOCIAL HISTORY: Alcohol abuse. Smoker. The patient's illicit drug use, none known. FAMILY HISTORY: Unknown. REVIEW OF SYSTEMS: The patient is pain free. Unable to obtain concise history, obtain at a later date. PHYSICAL EXAMINATION: VITAL SIGNS: Reviewed. GENERAL: No distress. PULMONARY: Decreased breath sounds. CARDIOVASCULAR: Regular rate. No S3 or S4. ABDOMEN: Soft, nontender, and nondistended. EXTREMITIES: There is 1+ edema. LABORATORY DATA: Labs, WBC is 11.9, hemoglobin 12.9, hematocrit 38, and platelet count 222,000. BUN of and creatinine 0.6 . HIV is negative. IMAGING STUDIES: CAT scan of the brain shows chronically changes. ASSESSMENT AND RECOMMENDATIONS: 1. Tonic-clonic seizure, potentially related to alcohol abuse versus potential meningitis. The patient may need a lumbar puncture if it does not improve. Currently on antibiotics as per ID Service. 2. Fever, suspected due to potential infection. Blood cultures and urine cultures are pending as well as chest x-ray. 3. Diarrhea. He is on Flagyl empirically. 4. Alcohol withdrawal seizure. Continue to closely monitor. Telemetry and Neurology is on board. Continue alcohol withdrawal protocol. 5. Chronic alcohol abuse. 6. Noncompliance. 7. Hyponatremia. 8. Hypocalcemia. 9. Abnormal troponin. 10. I appreciate the consultants' care. Robert Johnston M.D. DR: JACQUELINE JOB#: [id number] CC:
[2017-08-02] MEDS: NS w/KCl 20mEq 1,000 ML IV SCH (05:03)
[2017-08-02] MEDS: chlordiazePOXIDE 25mg Cap ORAL SCH ×3 (05:04→23:00)
--- NOTE | 2017-08-02 10:06 | Consultation ---
Consult Note Consult Note 52-year-old male, history of seizures, noncompliant with Dilantin, also history of alcohol abuse, drinks every day, presenting with seizure. EMS was called after a friend calling 911, so patient to have a generalized tonic-clonic seizure. Less than 2 minutes. Patient does not recall event. Patient was noted to have trauma in his head, states that this happened a few days ago but states "I don't know how that happened" States that he drinks alcohol every day, more than a pint, however states that the last drink was yesterday He was last admitted in September 2016 for alcohol withdrawal and signed out AGAINST MEDICAL ADVICE Past Medical History: No History, Except For Hx Neurological Problems: Yes Hx Seizures: Yes interviewed examined data reviewed Assessment/Plan Electrolyte imbalance due to dehydration and diarrhea (1) Altered mental status (2) Diarrhea ? Pancreatic insuff (3) Fever (4) Alcohol withdrawal seizure (5) Non-compliance (6) Anemia Plan: IV K supplement Per GI and ID per orders LANDRY ORO Aug 02, 2017 10:06
[2017-08-02] MEDS: cefTRIAXone 2 GM in D5W 55 ML IVPB SCH ×2 (10:15→22:05)
[2017-08-02] MEDS: Nystatin Susp 500,000 units/5ml ORAL SCH ×4 (10:16→22:05)
[2017-08-02 10:40] LABS: BASOPHILS % (AUTO) 0.7 % (0.0-2.0); HEMATOCRIT 38.2 % (42.0-52.0); HEMOGLOBIN 12.7 G/DL (14.2-18.0); LYMPHOCYTES % (AUTO) 12.7 % (20.0-45.0); MEAN CORPUSCULAR VOLUME 101 FL (80-99); MONOCYTES % (AUTO) 15.2 % (1.0-10.0); NEUTROPHILS % (AUTO) 70.4 % (45.0-75.0); PLATELET COUNT 125 K/UL (150-450); RED BLOOD COUNT 3.79 M/UL (4.70-6.10); RED CELL DISTRIBUTION WIDTH 12.9 % (11.6-14.8)
--- NOTE | 2017-08-02 10:50 | Infectious Diseases Prog Note ---
Assessment/Plan Problems: (1) Altered mental status Assessment & Plan: with seizure , continue vancomycin and ceftriaxon empirically , mental status is improving quickly , doubt meningitis (2) Diarrhea Assessment & Plan: continue metronidazol empirically , pending stool culture and C diff (3) Fever Assessment & Plan: due to the above, await blood culture and stool study , continue vancomcyin and ceftriaxon to cover for possible sepsis /meningitis (4) Alcohol withdrawal seizure Assessment & Plan: restart seizure meds, neurology is following (5) Non-compliance Assessment & Plan: recommend counseling and alcohol rehab (6) Oral thrush Assessment & Plan: continue oral nystatin, screening for HIV is negative Subjective Constitutional: Reports: fatigue, drenching sweats HEENT: Reports: no symptoms Respiratory: Reports: productive cough Breasts: Reports: no symptoms Cardiovascular: Reports: no symptoms Gastrointestinal/Abdominal: Reports: diarrhea Genitourinary: Reports: no symptoms Neurologic: Reports: weakness Psychiatric: Reports: no symptoms Skin: Reports: no symptoms Endocrine: Reports: no symptoms Hematologic: Reports: no symptoms Musculoskeletal: Reports: no symptoms Allergies: Coded Allergies: No Known Allergies (Unverified , 02/10/15) Subjective he was more awake and alert, denied ay headache or photophobia , no fever or chills, no cough or SOB, more responsive Objective Vital Signs Last 24 Hour Vital Signs Date Time Temp Pulse Resp B/P (MAP) Pulse Ox O2 Delivery O2 Flow Rate FiO2 08/02/17 04:00 98.1 93 20 109/71 93 Room Air 08/02/17 04:00 107 08/02/17 00:00 98.2 101 20 114/72 94 Room Air 08/02/17 00:00 100 08/01/17 21:44 98.5 08/01/17 20:00 100.4 113 20 104/65 94 Room Air 08/01/17 20:00 111 08/01/17 16:00 112 08/01/17 16:00 97.8 63 19 130/60 97 Room Air 73 08/01/17 14:33 135 122/74 08/01/17 12:00 97.8 63 19 122/67 97 Room Air 84 08/01/17 12:00 133 Height (Feet): 5 Height (Inches): 8.00 Weight (Pounds): 150 General Appearance: WD/WN, no acute distress HEENT: normocephalic, atraumatic, anicteric, mucous membranes moist, PERRL, EOMI, pharynx normal, supple, no JVD Respiratory/Chest: chest wall non-tender, no respiratory distress, no accessory muscle use, decreased breath sounds, expiratory wheezing Cardiovascular: normal peripheral pulses, normal rate, regular rhythm, no gallop/murmur, no JVD Abdomen: normal bowel sounds, soft, non tender, no organomegaly, non distended , no mass, no scars Extremities: no cyanosis, no clubbing Skin: no rash, no lesions, no ulcers Neurologic/Psychiatric: alert, responsive Microbiology Date/Time Source Procedure Growth Status 07/31/17 23:30 Blood Blood Culture - Preliminary NO GROWTH AFTER 24 HOURS Resulted 07/31/17 23:25 Blood Blood Culture - Preliminary NO GROWTH AFTER 24 HOURS Resulted Laboratory Tests Test 08/02/17 07:44 White Blood Count 8.0 K/UL (4.8-10.8) Red Blood Count 3.79 M/UL (4.70-6.10) L Hemoglobin 12.7 G/DL (14.2-18.0) L Hematocrit 38.2 % (42.0-52.0) L Mean Corpuscular Volume 101 FL (80-99) H Mean Corpuscular Hemoglobin 33.5 PG (27.0-31.0) H Mean Corpuscular Hemoglobin Concent 33.2 G/DL (32.0-36.0) Red Cell Distribution Width 12.9 % (11.6-14.8) Platelet Count 125 K/UL (150-450) L Mean Platelet Volume 8.6 FL (6.5-10.1) Neutrophils (%) (Auto) 70.4 % (45.0-75.0) Lymphocytes (%) (Auto) 12.7 % (20.0-45.0) L Monocytes (%) (Auto) 15.2 % (1.0-10.0) H Eosinophils (%) (Auto) 1.0 % (0.0-3.0) Basophils (%) (Auto) 0.7 % (0.0-2.0) Phenytoin (Dilantin) Level 11.6 ug/mL (10-20) Current Medications Medications (Trade) Dose Ordered Sig/Tonny Route PRN Reason Start Time Stop Time Status Last Admin Dose Admin Acetaminophen (Tylenol) 650 mg Q8HR PRN ORAL Mild Pain/Temp > 100.5 07/31/17 23:00 08/30/17 22:59 08/01/17 20:45 Amylase/Lipase/ Protease (Pancrease) 2 ea THREE TIMES A DAY ORAL 08/02/17 13:00 09/01/17 12:59 Ceftriaxone Sodium 2 gm/ Dextrose 55 ml @ 110 mls/hr EVERY 12 HOURS IVPB 08/01/17 09:00 08/08/17 08:59 08/02/17 10:15 Chlordiazepoxide (Librium) 25 mg Q8HR ORAL 08/01/17 10:30 08/07/17 10:29 08/02/17 05:04 Folic Acid 1 mg/ Magnesium Sulfate 2000 mg/ Multivitamins 10 ml/Sodium Chloride 1,014.2 ml @ 125 mls/ hr Q24H IV 08/01/17 11:30 08/31/17 11:29 08/01/17 13:46 Lansoprazole (Prevacid) 30 mg DAILY ORAL 08/02/17 11:00 09/01/17 10:59 Lorazepam (Ativan 2mg/ml 1ml) 2 mg Q4H PRN IV Agitation seizure 08/01/17 10:00 08/08/17 09:59 Metronidazole 100 ml @ 100 mls/hr Q8HR IVPB 07/31/17 22:30 08/07/17 22:29 08/02/17 05:04 Nystatin (Nystatin) 5 ml QID ORAL 08/01/17 14:00 08/08/17 13:59 08/02/17 10:16 Potassium Chloride 40 meq/ Dextrose 1,020 ml @ 75 mls/hr [id number] IV 08/02/17 11:30 09/01/17 11:29 Thiamine HCl 100 mg/Dextrose 56 ml @ 112 mls/hr Q24H IV 08/01/17 11:30 08/31/17 11:29 08/01/17 11:51 Vancomycin HCl (Vanco rx to dose) 1 ea DAILY PRN MISC Per rx protocol 07/31/17 22:30 08/30/17 22:29 Vancomycin HCl/ Dextrose 250 ml @ 125 mls/hr Q12H IVPB 07/31/17 23:00 08/05/17 22:59 08/01/17 23:16 Lubna Bey M.D. Aug 02, 2017 10:50
[2017-08-02 11:23] LABS: PHOSPHORUS 2.5 MG/DL (2.5-4.9)
[2017-08-02] MEDS: Vancomycin 1.5 GM/D5W 250ML IVPB SCH ×2 (11:32→22:57)
[2017-08-02 11:33] LABS: ALANINE AMINOTRANSFERASE 23 U/L (12-78); ALBUMIN/GLOBULIN RATIO 0.6 (1.0-2.7); ALKALINE PHOSPHATASE 48 U/L (46-116); ANION GAP 9 mmol/L (5-15); ASPARTATE AMINO TRANSFERASE 59 U/L (15-37); BILIRUBIN,TOTAL 0.5 MG/DL (0.2-1.0); BLOOD UREA NITROGEN 4 mg/dL (7-18); CALCIUM 6.5 MG/DL (8.5-10.1); CARBON DIOXIDE 25 MMOL/L (21-32); CHLORIDE 105 MMOL/L (98-107); CHOLESTEROL 55 MG/DL (< 200); CREATININE 0.4 MG/DL (0.55-1.30); FERRITIN 619 NG/ML (8-388); HDL CHOLESTEROL 11 MG/DL (40-60); POTASSIUM 2.8 MMOL/L (3.5-5.1); SODIUM 138 MMOL/L (136-145); TRIGLYCERIDES 77 MG/DL (30-150)
[2017-08-02] MEDS: Folic Acid 1 MG, Magnesium Sulfate 2,000 MG, Multivitamin - 12 Injection 10 ML in NS w/... IV SCH (11:33)
[2017-08-02] MEDS: Thiamine HCl 100 MG in D5W 55 ML IV SCH (11:34)
[2017-08-02] MEDS: Pancrease Cap ORAL SCH ×2 (12:49→19:31)
--- NOTE | 2017-08-02 14:59 | Diagnostic Imaging Report ---
Indication: Back pain Comparison: None Findings: 3 views of the lumbar spine were obtained. No acute fracture or malalignment is identified. Vertebral body heights and disk spaces are well maintained. Posterior elements are unremarkable. Impression: No acute findings.
--- NOTE | 2017-08-02 18:20 | Wound Care Consultation ---
Wound Assessment Wound Assessment #1: Wound Number: 1 Wound Present on Admission: Yes New Wound: No Status Change of Wound: No Wound Location Body Site Modif: right Wound Location Body Site: buttocks Wound Type: pressure ulcer Panchito Test: Does not Panchito Pressure Ulcer Stage: II Wound Thickness: Partial Thickness Wound Length: 2.0 Wound Width: 2.0 Wound Depth: less than 0.1 Percent of Wound [place]/Red: 100 Wound Drainage Description: Serosanguineous Wound Drainage Amount: Scant Wound Drainage Odor: None/Absent Tissue Surrounding Wound: Erythemic Wound General Appearance: Reddened, Draining Wound Assessment #2: Wound Number: 2 Wound Present on Admission: Yes New Wound: No Status Change of Wound: No Wound Location Body Site Modif: left Wound Location Body Site: buttocks Wound Type: pressure ulcer Panchito Test: Does not Panchito Pressure Ulcer Stage: II - scattered Wound Thickness: Partial Thickness Percent of Wound [place]/Red: 100 Wound Drainage Description: Serosanguineous Wound Drainage Amount: Scant Wound Drainage Odor: None/Absent Tissue Surrounding Wound: Erythemic Wound General Appearance: Reddened, Draining Wound Assessment #3: Wound Number: 3 Wound Present on Admission: Yes New Wound: No Status Change of Wound: No Wound Location Body Site Modif: mid Wound Location Body Site: other - Sacrococcygeal Wound Type: pressure ulcer Panchito Test: Does not Panchito Pressure Ulcer Stage: Deep Tissue Injury Wound Thickness: Full Thickness Wound Length: 3.5 Wound Width: 3.0 Wound Depth: utd Percent of Wound Purple/Maroon: 100 Wound Drainage Amount: None Wound Drainage Odor: None/Absent Tissue Surrounding Wound: Erythemic Wound General Appearance: Reddened - purple Wound Assessment #4: Wound Number: 4 Wound Present on Admission: Yes New Wound: No Status Change of Wound: No Wound Location Body Site: perineal area Wound Type: chemical burn Panchito Test: Does not Panchito Percent of Wound [place]/Red: 100 Wound Drainage Amount: None Wound Drainage Odor: None/Absent Tissue Surrounding Wound: Erythemic Wound General Appearance: Reddened Wound Comment #1 Right buttock stage II pressure ulcer #2 Left buttock scattered stage II pressure ulcer #3 Perineal area chemical burn #4 Sacrococcygeal DTI pressure ulcer Recommendation -Local wound care per protocol -Keep clean and dry -Turn and reposition -Optimize nutrition -Low air loss mattress -Offload both heels -Heel protector on both heels -Assess and f/u accordingly for any changes ISMAEL ARREDONDO RN Aug 02, 2017 18:20
--- NOTE | 2017-08-02 23:27 | General Progress Note ---
Assessment/Plan Assessment/Plan ASSESSMENT AND RECOMMENDATIONS: 1. Tonic-clonic seizure, potentially related to alcohol abuse versus potential meningitis. The patient may need a lumbar puncture if it does not improve. Currently on antibiotics as per ID Service. --> continue alcohol withdrawal protocol 2. Fever, suspected due to potential infection. Better 3. Alcohol withdrawal seizure. Continue to closely monitor. Telemetry and Neurology is on board. Continue alcohol withdrawal protocol. 4. Chronic alcohol abuse. 5. Hyponatremia. 6. Hypocalcemia. 7. Abnormal troponin. Subjective Constitutional: Reports: weakness Hematologic/Lymphatic: Reports: anemia Allergies: Coded Allergies: No Known Allergies (Unverified , 02/10/15) All Systems: reviewed and negative except above Subjective confused Objective Last 24 Hour Vital Signs Date Time Temp Pulse Resp B/P (MAP) Pulse Ox O2 Delivery O2 Flow Rate FiO2 08/02/17 19:54 98.1 115 19 107/58 91 Room Air 114 08/02/17 16:00 108 08/02/17 16:00 97.2 113 18 110/69 94 Room Air 08/02/17 12:00 108 08/02/17 12:00 96.9 115 20 109/66 95 Room Air 08/02/17 08:00 97.2 112 20 114/78 96 Room Air 08/02/17 08:00 116 08/02/17 04:00 98.1 93 20 109/71 93 Room Air 08/02/17 04:00 107 08/02/17 00:00 98.2 101 20 114/72 94 Room Air 08/02/17 00:00 100 Intake and Output 08/01/17 08/02/17 19:00 07:00 Intake Total 472 ml 1300 ml Balance 472 ml 1300 ml Intake Oral 472 ml 100 ml IV Total 1200 ml # Voids 2 4 # Bowel Movements 1 1 Laboratory Tests 08/02/17 07:44: White Blood Count 8.0, Red Blood Count 3.79L, Hemoglobin 12.7L, Hematocrit 38.2L , Mean Corpuscular Volume 101H, Mean Corpuscular Hemoglobin 33.5H, Mean Corpuscular Hemoglobin Concent 33.2, Red Cell Distribution Width 12.9, Platelet Count 125L, Mean Platelet Volume 8.6, Neutrophils (%) (Auto) 70.4, Lymphocytes ( %) (Auto) 12.7L, Monocytes (%) (Auto) 15.2H, Eosinophils (%) (Auto) 1.0, Basophils (%) (Auto) 0.7, Phenytoin (Dilantin) Level 11.6 08/02/17 10:35: Sodium Level 138, Potassium Level 2.8L, Chloride Level 105, Carbon Dioxide Level 25, Anion Gap 9, Blood Urea Nitrogen 4L, Creatinine 0.4L, Estimat Glomerular Filtration Rate > 60, Glucose Level 108H, Hemoglobin A1c 5.0, Uric Acid 3.2, Calcium Level 6.5L, Phosphorus Level 2.5, Magnesium Level 1.6L, Ferritin 619H, Total Bilirubin 0.5, Gamma Glutamyl Transpeptidase 345H, Aspartate Amino Transf (AST/SGOT) 59H, Alanine Aminotransferase (ALT/SGPT) 23, Alkaline Phosphatase 48, Troponin I 0.059H, C-Reactive Protein, Quantitative 7.5H, Pro-B-Type Natriuretic Peptide 968H, Total Protein 5.2L, Albumin 2.0L, Globulin 3.2, Albumin/Globulin Ratio 0.6L, Triglycerides Level 77, Cholesterol Level 55, LDL Cholesterol 31, HDL Cholesterol 11L, Cholesterol/HDL Ratio 5.0H, Lipase 79, Vitamin B12 Level 686, Folate 9.6, Thyroid Stimulating Hormone (TSH) 0.639, Vancomycin Level Trough 6.2 Height (Feet): 5 Height (Inches): 8.00 Weight (Pounds): 150 General Appearance: lethargic, confused EENT: normal ENT inspection Neck: normal alignment Extremities: normal range of motion Skin: normal pigmentation Robert Johnston Aug 02, 2017 23:27
[2017-08-03 03:53] VITALS: BP 118/78
[2017-08-03] MEDS: chlordiazePOXIDE 25mg Cap ORAL SCH ×3 (06:35→22:08)
[2017-08-03] MEDS: Vancomycin 1.5 GM/D5W 250ML IVPB SCH ×3 (06:35→23:22)
[2017-08-03 08:17] VITALS: BP 115/75
[2017-08-03] MEDS: Pancrease Cap ORAL SCH ×3 (09:28→18:16)
[2017-08-03] MEDS: Nystatin Susp 500,000 units/5ml ORAL SCH ×4 (09:28→21:05)
[2017-08-03] MEDS: cefTRIAXone 2 GM in D5W 55 ML IVPB SCH ×2 (09:31→21:05)
[2017-08-03] MEDS: Heparin 5000 units/ml inj SUBQ SCH ×2 (09:35→21:05)
[2017-08-03] MEDS ORDERED: Potassium Chloride 50 MEQ in Sodium Chloride 500ML 550 ML IVPB ONE (11:00)
[2017-08-03] MEDS: Thiamine HCl 100 MG in D5W 55 ML IV SCH (11:47)
[2017-08-03 12:01] VITALS: BP 110/64
[2017-08-03] MEDS: Folic Acid 1 MG, Magnesium Sulfate 2,000 MG, Multivitamin - 12 Injection 10 ML in NS w/... IV SCH (12:55)
--- NOTE | 2017-08-03 13:59 | Nephrology Progress Note ---
Assessment/Plan Problem List: (1) Elevated troponin (2) Altered mental status (3) Diarrhea (4) Alcohol withdrawal seizure (5) Electrolyte and fluid disorder Assessment Electrolyte imbalance due to dehydration and diarrhea (1) Altered mental status (2) Diarrhea ? Pancreatic insuff (3) Fever (4) Alcohol withdrawal seizure (5) Non-compliance (6) Anemia (7) troponin elevation Plan Plan: IV K supplement Per GI and ID nitrates per orders Subjective ROS Limited/Unobtainable: No Constitutional: Reports: malaise Objective Objective Last 24 Hour Vital Signs Date Time Temp Pulse Resp B/P (MAP) Pulse Ox O2 Delivery O2 Flow Rate FiO2 08/03/17 12:01 97.7 100 20 110/64 92 100 08/03/17 08:17 98.1 103 20 115/75 97 103 08/03/17 04:00 109 08/03/17 03:53 100.4 110 20 118/78 91 Room Air 110 08/03/17 00:00 120 08/02/17 23:50 97.8 116 20 107/69 98 Room Air 115 08/02/17 20:00 115 08/02/17 19:54 98.1 115 19 107/58 91 Room Air 114 08/02/17 16:00 108 08/02/17 16:00 97.2 113 18 110/69 94 Room Air Intake and Output 08/02/17 08/03/17 19:00 07:00 Intake Total 590 ml Output Total 800 ml Balance 590 ml -800 ml Intake Oral 590 ml Output Urine Total 800 ml # Voids 5 5 # Bowel Movements 3 1 Laboratory Tests 08/03/17 12:45: Vancomycin Level Trough 15.4H Height (Feet): 5 Height (Inches): 8.00 Weight (Pounds): 150 General Appearance: no apparent distress Cardiovascular: regular rhythm Respiratory/Chest: decreased breath sounds Abdomen: soft, distended LANDRY ORO Aug 03, 2017 13:59
--- NOTE | 2017-08-03 15:04 | Infectious Diseases Prog Note ---
Assessment/Plan Problems: (1) Altered mental status Assessment & Plan: with seizure , continue vancomycin and ceftriaxon empirically , mental status is improving quickly , doubt meningitis, suspect pneumonia , await culture results (2) Aspiration pneumonia Assessment & Plan: due to the above, on vancomycin, ceftriaxon and flagyl , will check CXR (3) Diarrhea Assessment & Plan: continue metronidazol empirically , pending stool culture and C diff (4) Fever Assessment & Plan: due to the above, await blood culture and stool study , continue vancomcyin and ceftriaxon to cover for possible sepsis, and pneumonia (5) Alcohol withdrawal seizure Assessment & Plan: restart seizure meds, neurology is following (6) Non-compliance Assessment & Plan: recommend counseling and alcohol rehab (7) Oral thrush Assessment & Plan: continue oral nystatin, screening for HIV is negative Subjective Constitutional: Reports: fatigue HEENT: Reports: no symptoms Respiratory: Reports: productive cough Breasts: Reports: no symptoms Cardiovascular: Reports: no symptoms Gastrointestinal/Abdominal: Reports: no symptoms Genitourinary: Reports: no symptoms Neurologic: Reports: no symptoms Psychiatric: Reports: no symptoms Skin: Reports: no symptoms Endocrine: Reports: no symptoms Hematologic: Reports: no symptoms Musculoskeletal: Reports: no symptoms Allergies: Coded Allergies: No Known Allergies (Unverified , 02/10/15) Subjective he was more awake and alert, denied ay headache or photophobia , no fever or chills, no cough or SOB, more responsive Objective Vital Signs Last 24 Hour Vital Signs Date Time Temp Pulse Resp B/P (MAP) Pulse Ox O2 Delivery O2 Flow Rate FiO2 08/03/17 12:01 97.7 100 20 110/64 92 100 08/03/17 08:17 98.1 103 20 115/75 97 103 08/03/17 04:00 109 08/03/17 03:53 100.4 110 20 118/78 91 Room Air 110 08/03/17 00:00 120 08/02/17 23:50 97.8 116 20 107/69 98 Room Air 115 08/02/17 20:00 115 08/02/17 19:54 98.1 115 19 107/58 91 Room Air 114 08/02/17 16:00 108 08/02/17 16:00 97.2 113 18 110/69 94 Room Air Height (Feet): 5 Height (Inches): 8.00 Weight (Pounds): 150 General Appearance: WD/WN, no acute distress HEENT: normocephalic, atraumatic, anicteric, mucous membranes moist, PERRL Respiratory/Chest: chest wall non-tender, lungs clear, normal breath sounds, no respiratory distress, no accessory muscle use Cardiovascular: normal peripheral pulses, normal rate, regular rhythm, no gallop/murmur, no JVD Abdomen: normal bowel sounds, soft, non tender, no organomegaly, non distended , no mass, no scars Extremities: no cyanosis, no clubbing Skin: no rash, no lesions, no ulcers Neurologic/Psychiatric: alert, oriented x 3, responsive Lymphatic: no neck adenopathy, no groin adenopathy Microbiology Date/Time Source Procedure Growth Status 07/31/17 23:30 Blood Blood Culture - Preliminary NO GROWTH AFTER 48 HOURS Resulted 07/31/17 23:25 Blood Blood Culture - Preliminary NO GROWTH AFTER 48 HOURS Resulted Laboratory Tests Test 08/03/17 12:45 Vancomycin Level Trough 15.4 ug/mL (5.0-12.0) H Current Medications Medications (Trade) Dose Ordered Sig/Tonny Route PRN Reason Start Time Stop Time Status Last Admin Dose Admin Acetaminophen (Tylenol) 650 mg Q8HR PRN ORAL Mild Pain/Temp > 100.5 07/31/17 23:00 08/30/17 22:59 08/01/17 20:45 Amylase/Lipase/ Protease (Pancrease) 2 ea THREE TIMES A DAY ORAL 08/02/17 13:00 09/01/17 12:59 08/03/17 13:38 Ceftriaxone Sodium 2 gm/ Dextrose 55 ml @ 110 mls/hr EVERY 12 HOURS IVPB 08/01/17 09:00 08/08/17 08:59 08/03/17 09:31 Chlordiazepoxide (Librium) 25 mg Q8HR ORAL 08/01/17 10:30 08/07/17 10:29 08/03/17 13:38 Folic Acid 1 mg/ Magnesium Sulfate 2000 mg/ Multivitamins 10 ml/Sodium Chloride 1,014.2 ml @ 125 mls/ hr Q24H IV 08/01/17 11:30 08/31/17 11:29 08/03/17 12:55 Heparin Sodium (Porcine) (Heparin 5000 units/ml) 5,000 units EVERY 12 HOURS SUBQ 08/03/17 09:00 09/02/17 08:59 08/03/17 09:35 Lansoprazole (Prevacid) 30 mg DAILY ORAL 08/02/17 11:00 09/01/17 10:59 08/03/17 09:27 Lorazepam (Ativan 2mg/ml 1ml) 2 mg Q4H PRN IV Agitation seizure 08/01/17 10:00 08/08/17 09:59 Metronidazole 100 ml @ 100 mls/hr Q8HR IVPB 07/31/17 22:30 08/07/17 22:29 08/03/17 14:48 Nitroglycerin (Ntg) 1 patch Q24H TDERMAL 08/03/17 15:00 09/02/17 14:59 Nystatin (Nystatin) 5 ml QID ORAL 08/01/17 14:00 08/08/17 13:59 08/03/17 13:39 Potassium Chloride 40 meq/ Dextrose 1,020 ml @ 50 mls/hr [id number] IV 08/03/17 16:00 09/02/17 15:59 Potassium Chloride 50 meq/ Sodium Chloride 575 ml @ 115 mls/hr ONCE ONCE IVPB 08/03/17 11:00 08/03/17 15:59 08/03/17 11:48 Thiamine HCl 100 mg/Dextrose 56 ml @ 112 mls/hr Q24H IV 08/01/17 11:30 08/31/17 11:29 08/03/17 11:47 Vancomycin HCl (Vanco rx to dose) 1 ea DAILY PRN MISC Per rx protocol 07/31/17 22:30 08/30/17 22:29 Vancomycin HCl/ Dextrose 250 ml @ 125 mls/hr Q8HR IVPB 08/02/17 22:00 08/07/17 21:59 08/03/17 06:35 Lubna Bey M.D. Aug 03, 2017 15:03
[2017-08-03 16:15] VITALS: BP 99/64
[2017-08-03] MEDS: Nitroglycerin Patch 0.2mg/hr TDERMAL SCH ×2 (16:29→16:30)
--- NOTE | 2017-08-03 17:23 | General Progress Note ---
Assessment/Plan Assessment/Plan ASSESSMENT AND RECOMMENDATIONS: 1. Tonic-clonic seizure --> continue seizure meds, neuro is on the case --> continue alcohol withdrawal protocol 2. Fever, suspected due to potential infection. Better 3. Alcohol withdrawal seizure. Continue to closely monitor. Educate re cessation 4. Thrombocytopenia, will obtain abdominal ultrasound and complete viral studies. HIV negative 5. Aspiration pneumonia 6. Oral thrush 7. Anemia, currently mild. Will continue to monitor Subjective Allergies: Coded Allergies: No Known Allergies (Unverified , 02/10/15) Subjective confused Objective Last 24 Hour Vital Signs Date Time Temp Pulse Resp B/P (MAP) Pulse Ox O2 Delivery O2 Flow Rate FiO2 08/03/17 16:30 99/64 08/03/17 16:15 97.9 67 20 99/64 94 08/03/17 12:01 97.7 100 20 110/64 92 100 08/03/17 08:17 98.1 103 20 115/75 97 103 08/03/17 04:00 109 08/03/17 03:53 100.4 110 20 118/78 91 Room Air 110 08/03/17 00:00 120 08/02/17 23:50 97.8 116 20 107/69 98 Room Air 115 08/02/17 20:00 115 08/02/17 19:54 98.1 115 19 107/58 91 Room Air 114 Intake and Output 08/02/17 08/03/17 19:00 07:00 Intake Total 590 ml Output Total 800 ml Balance 590 ml -800 ml Intake Oral 590 ml Output Urine Total 800 ml # Voids 5 5 # Bowel Movements 3 1 Laboratory Tests 08/03/17 12:45: Vancomycin Level Trough 15.4H Height (Feet): 5 Height (Inches): 8.00 Weight (Pounds): 150 Robert Johnston Aug 03, 2017 17:23
[2017-08-03 20:02] VITALS: BP 106/68
[2017-08-04 00:02] VITALS: BP 119/78
[2017-08-04 04:07] VITALS: BP 115/67
[2017-08-04] MEDS: Vancomycin 1.5 GM/D5W 250ML IVPB SCH ×3 (06:01→22:58)
[2017-08-04] MEDS: chlordiazePOXIDE 25mg Cap ORAL SCH ×3 (06:04→22:33)
[2017-08-04 08:07] LABS: HEMATOCRIT 36.6 % (42.0-52.0); HEMOGLOBIN 12.6 G/DL (14.2-18.0); MEAN CORPUSCULAR VOLUME 98 FL (80-99); PLATELET COUNT 180 K/UL (150-450); RED BLOOD COUNT 3.73 M/UL (4.70-6.10); RED CELL DISTRIBUTION WIDTH 12.9 % (11.6-14.8); WHITE BLOOD COUNT 5.4 K/UL (4.8-10.8)
[2017-08-04 08:08] VITALS: BP 113/69
[2017-08-04 08:46] LABS: % IRON SATURATION 31 % (15-50); IRON 40 ug/dL (50-175); TOTAL IRON BINDING CAPACITY 130 ug/dL (250-450)
[2017-08-04 08:57] LABS: ALANINE AMINOTRANSFERASE 17 U/L (12-78); ALBUMIN 2.2 G/DL (3.4-5.0); ALBUMIN/GLOBULIN RATIO 0.7 (1.0-2.7); ALKALINE PHOSPHATASE 55 U/L (46-116); ANION GAP 7 mmol/L (5-15); ASPARTATE AMINO TRANSFERASE 50 U/L (15-37); BILIRUBIN,TOTAL 0.5 MG/DL (0.2-1.0); BLOOD UREA NITROGEN 2 mg/dL (7-18); CALCIUM 6.6 MG/DL (8.5-10.1); CARBON DIOXIDE 27 MMOL/L (21-32); CHLORIDE 102 MMOL/L (98-107); CREATININE 0.4 MG/DL (0.55-1.30); PHOSPHORUS 1.3 MG/DL (2.5-4.9); POTASSIUM 2.8 MMOL/L (3.5-5.1); SODIUM 135 MMOL/L (136-145)
[2017-08-04] MEDS: cefTRIAXone 2 GM in D5W 55 ML IVPB SCH ×2 (09:54→22:08)
[2017-08-04] MEDS: Pancrease Cap ORAL SCH ×3 (10:03→18:01)
[2017-08-04] MEDS: Nystatin Susp 500,000 units/5ml ORAL SCH ×4 (10:03→22:08)
[2017-08-04] MEDS: Heparin 5000 units/ml inj SUBQ SCH ×2 (10:04→22:09)
--- NOTE | 2017-08-04 11:02 | Nephrology Progress Note ---
Assessment/Plan Problem List: (1) Elevated troponin (2) Altered mental status (3) Diarrhea (4) Alcohol withdrawal seizure (5) Electrolyte and fluid disorder Assessment Electrolyte imbalance due to dehydration and diarrhea (1) Altered mental status (2) Diarrhea ? Pancreatic insuff (3) Fever (4) Alcohol withdrawal seizure (5) Non-compliance (6) Anemia (7) troponin elevation Plan Plan: IV K and Phos and Mag supplement DC IV Per GI and ID nitrates per orders low dose beta carol Subjective ROS Limited/Unobtainable: No Constitutional: Reports: malaise, weakness Objective Objective Last 24 Hour Vital Signs Date Time Temp Pulse Resp B/P (MAP) Pulse Ox O2 Delivery O2 Flow Rate FiO2 08/04/17 08:08 97.9 98 20 113/69 93 08/04/17 05:14 102 08/04/17 04:07 98.2 92 20 115/67 100 Room Air 08/04/17 00:02 98.1 102 20 119/78 Room Air 08/04/17 00:00 99 08/03/17 20:02 97.3 96 20 106/68 94 Room Air 08/03/17 20:00 101 08/03/17 16:30 99/64 08/03/17 16:15 97.9 67 20 99/64 94 08/03/17 16:00 102 08/03/17 12:01 97.7 100 20 110/64 92 100 08/03/17 12:00 107 Intake and Output 08/03/17 08/04/17 19:00 07:00 Intake Total 240 ml 905 ml Output Total 3300 ml 1500 ml Balance -3060 ml -595 ml Intake Oral 240 ml IV Total 905 ml Output Urine Total 3300 ml 1500 ml # Bowel Movements 1 Laboratory Tests 08/03/17 12:45: Vancomycin Level Trough 15.4H, Hepatitis A IgM Antibody [Pending], Hepatitis B Surface Antigen [Pending], Hepatitis B Core IgM Antibody [Pending], Hepatitis C Antibody [Pending] 08/04/17 07:27: White Blood Count 5.4, Red Blood Count 3.73L, Hemoglobin 12.6L, Hematocrit 36.6L , Mean Corpuscular Volume 98, Mean Corpuscular Hemoglobin 33.8H, Mean Corpuscular Hemoglobin Concent 34.5, Red Cell Distribution Width 12.9, Platelet Count 180, Mean Platelet Volume 6.9, Neutrophils (%) (Auto) , Lymphocytes (%) ( Auto) , Monocytes (%) (Auto) , Eosinophils (%) (Auto) , Basophils (%) (Auto) , Differential Total Cells Counted 100, Neutrophils % (Manual) 50, Lymphocytes % ( Manual) 22, Monocytes % (Manual) 24H, Eosinophils % (Manual) 4H, Basophils % ( Manual) 0, Band Neutrophils 0, Platelet Estimate Adequate, Platelet Morphology Normal, Red Blood Cell Morphology Normal, Hypochromasia , Sodium Level 135L, Potassium Level 2.8L, Chloride Level 102, Carbon Dioxide Level 27, Anion Gap 7, Blood Urea Nitrogen 2L, Creatinine 0.4L, Estimat Glomerular Filtration Rate > 60 , Glucose Level 104, Uric Acid 2.0L, Calcium Level 6.6L, Phosphorus Level 1.3L, Magnesium Level 1.6L, Iron Level 40L, Total Iron Binding Capacity 130L, Percent Iron Saturation 31, Unsaturated Iron Binding 90L, Total Bilirubin 0.5, Aspartate Amino Transf (AST/SGOT) 50H, Alanine Aminotransferase (ALT/SGPT) 17, Alkaline Phosphatase 55, Troponin I 0.043, C-Reactive Protein, Quantitative 3.8H , Pro-B-Type Natriuretic Peptide 997H, Total Protein 5.5L, Albumin 2.2L, Globulin 3.3, Albumin/Globulin Ratio 0.7L Height (Feet): 5 Height (Inches): 8.00 Weight (Pounds): 150 General Appearance: no apparent distress Cardiovascular: tachycardia Abdomen: soft LANDRY ORO Aug 04, 2017 11:02
[2017-08-04] MEDS ORDERED: Metoprolol Tartrate 12.5mg TAB ORAL ONE (11:30)
[2017-08-04 12:00] VITALS: BP 103/65
[2017-08-04] MEDS ORDERED: Potassium Phosphate 30 MM in NS 275 ML IV ONE (12:30)
--- NOTE | 2017-08-04 12:49 | Diagnostic Imaging Report ---
Indication: Abnormal liver function tests. Abnormal renal function tests Technique: Richards-scale and duplex images of the upper abdomen were obtained Comparison: none Findings: Gallbladder demonstrates shadowing gallstones. There is equivocal mild gallbladder wall thickening, although this is probably an artifact of under distention. No pericholecystic fluid. Sonographic Dawson's sign is negative. Common bile duct measures mm in diameter. No intrahepatic biliary ductal dilatation. Liver demonstrates diffusely increased echogenicity, consistent with diffuse hepatocellular disease, most likely fatty change. Portal vein and hepatic veins are patent. Pancreas is unremarkable. Spleen is unremarkable. Left kidney measures 12.5 cm in length. Right kidney measures 12.8 cm length. Both kidneys demonstrate normal echogenicity. There is no hydronephrosis. No focal abnormality . Abdominal aorta is partially obscured by bowel gas, visualized portions are non-aneurysmal . Incidental finding of a left pleural effusion Impression: Cholelithiasis. Negative for dilated ducts Liver demonstrates diffusely increased echogenicity, consistent with diffuse hepatocellular disease, most likely fatty change. Left pleural effusion incidentally noted
--- NOTE | 2017-08-04 15:14 | Infectious Diseases Prog Note ---
Assessment/Plan Problems: (1) Altered mental status Assessment & Plan: due to seizure breakthrough , improved, continue vancomycin and ceftriaxon empirically , suspect aspiration pneumonia , mainly due to altered mental status, await culture results (2) Aspiration pneumonia Assessment & Plan: due to the above, on vancomycin, ceftriaxon and flagyl , monitor CXR (3) Diarrhea Assessment & Plan: continue metronidazol empirically , pending stool culture and C diff (4) Fever Assessment & Plan: due to the above, await blood culture and stool study , continue vancomcyin and ceftriaxon to cover for possible sepsis, and pneumonia (5) Alcohol withdrawal seizure Assessment & Plan: restart seizure meds, neurology is following (6) Non-compliance Assessment & Plan: recommend counseling and alcohol rehab (7) Oral thrush Assessment & Plan: continue oral nystatin, screening for HIV is negative Subjective Constitutional: Reports: no symptoms HEENT: Reports: no symptoms Respiratory: Reports: productive cough Breasts: Reports: no symptoms Cardiovascular: Reports: no symptoms Gastrointestinal/Abdominal: Reports: no symptoms Genitourinary: Reports: no symptoms Neurologic: Reports: weakness Psychiatric: Reports: depression Skin: Reports: no symptoms Endocrine: Reports: no symptoms Hematologic: Reports: no symptoms Musculoskeletal: Reports: no symptoms Allergies: Coded Allergies: No Known Allergies (Unverified , 02/10/15) Subjective he was more awake and alert, denied ay headache or photophobia , no fever or chills, no cough or SOB, more responsive Objective Vital Signs Last 24 Hour Vital Signs Date Time Temp Pulse Resp B/P (MAP) Pulse Ox O2 Delivery O2 Flow Rate FiO2 08/04/17 12:00 98.1 108 20 103/65 92 08/04/17 11:53 107 103/65 08/04/17 08:08 97.9 98 20 113/69 93 08/04/17 05:14 102 08/04/17 04:07 98.2 92 20 115/67 100 Room Air 08/04/17 00:02 98.1 102 20 119/78 Room Air 08/04/17 00:00 99 08/03/17 20:02 97.3 96 20 106/68 94 Room Air 08/03/17 20:00 101 08/03/17 16:30 99/64 08/03/17 16:15 97.9 67 20 99/64 94 08/03/17 16:00 102 Height (Feet): 5 Height (Inches): 8.00 Weight (Pounds): 150 General Appearance: WD/WN, no acute distress HEENT: normocephalic, atraumatic, anicteric, mucous membranes moist, PERRL, EOMI, pharynx normal, supple, no JVD Respiratory/Chest: chest wall non-tender, lungs clear, normal breath sounds, no respiratory distress, no accessory muscle use Cardiovascular: normal peripheral pulses, normal rate, regular rhythm, no gallop/murmur, no JVD Abdomen: normal bowel sounds, soft, non tender, no organomegaly, non distended , no mass, no scars Extremities: no cyanosis, no clubbing Skin: no rash, no lesions, no ulcers Neurologic/Psychiatric: alert, oriented x 3, responsive Laboratory Tests Test 08/04/17 07:27 White Blood Count 5.4 K/UL (4.8-10.8) Red Blood Count 3.73 M/UL (4.70-6.10) L Hemoglobin 12.6 G/DL (14.2-18.0) L Hematocrit 36.6 % (42.0-52.0) L Mean Corpuscular Volume 98 FL (80-99) Mean Corpuscular Hemoglobin 33.8 PG (27.0-31.0) H Mean Corpuscular Hemoglobin Concent 34.5 G/DL (32.0-36.0) Red Cell Distribution Width 12.9 % (11.6-14.8) Platelet Count 180 K/UL (150-450) Mean Platelet Volume 6.9 FL (6.5-10.1) Neutrophils (%) (Auto) % (45.0-75.0) Lymphocytes (%) (Auto) % (20.0-45.0) Monocytes (%) (Auto) % (1.0-10.0) Eosinophils (%) (Auto) % (0.0-3.0) Basophils (%) (Auto) % (0.0-2.0) Differential Total Cells Counted 100 Neutrophils % (Manual) 50 % (45-75) Lymphocytes % (Manual) 22 % (20-45) Monocytes % (Manual) 24 % (1-10) H Eosinophils % (Manual) 4 % (0-3) H Basophils % (Manual) 0 % (0-2) Band Neutrophils 0 % (0-8) Platelet Estimate Adequate Platelet Morphology Normal Red Blood Cell Morphology Normal Hypochromasia Sodium Level 135 MMOL/L (136-145) L Potassium Level 2.8 MMOL/L (3.5-5.1) L Chloride Level 102 MMOL/L (98-107) Carbon Dioxide Level 27 MMOL/L (21-32) Anion Gap 7 mmol/L (5-15) Blood Urea Nitrogen 2 mg/dL (7-18) L Creatinine 0.4 MG/DL (0.55-1.30) L Estimat Glomerular Filtration Rate > 60 mL/min (>60) Glucose Level 104 MG/DL (74-106) Uric Acid 2.0 MG/DL (2.6-7.2) L Calcium Level 6.6 MG/DL (8.5-10.1) L Phosphorus Level 1.3 MG/DL (2.5-4.9) L Magnesium Level 1.6 MG/DL (1.8-2.4) L Iron Level 40 ug/dL (50-175) L Total Iron Binding Capacity 130 ug/dL (250-450) L Percent Iron Saturation 31 % (15-50) Unsaturated Iron Binding 90 ug/dL (112-346) L Total Bilirubin 0.5 MG/DL (0.2-1.0) Aspartate Amino Transf (AST/SGOT) 50 U/L (15-37) H Alanine Aminotransferase (ALT/SGPT) 17 U/L (12-78) Alkaline Phosphatase 55 U/L (46-116) Troponin I 0.043 ng/mL (0.000-0.056) C-Reactive Protein, Quantitative 3.8 mg/dL (0.00-0.90) H Pro-B-Type Natriuretic Peptide 997 pg/mL (0-125) H Total Protein 5.5 G/DL (6.4-8.2) L Albumin 2.2 G/DL (3.4-5.0) L Globulin 3.3 g/dL Albumin/Globulin Ratio 0.7 (1.0-2.7) L Current Medications Medications (Trade) Dose Ordered Sig/Tonny Route PRN Reason Start Time Stop Time Status Last Admin Dose Admin Acetaminophen (Tylenol) 650 mg Q8HR PRN ORAL Mild Pain/Temp > 100.5 12/24/17 23:00 08/30/17 22:59 08/01/17 20:45 Amylase/Lipase/ Protease (Pancrease) 3 ea THREE TIMES A DAY ORAL 08/04/17 13:00 09/03/17 12:59 08/04/17 13:51 Ceftriaxone Sodium 2 gm/ Dextrose 55 ml @ 110 mls/hr EVERY 12 HOURS IVPB 08/01/17 09:00 08/08/17 08:59 08/04/17 09:54 Chlordiazepoxide (Librium) 25 mg Q8HR ORAL 08/01/17 10:30 08/07/17 10:29 08/04/17 13:52 Folic Acid (Folate) 1 mg DAILY ORAL 08/05/17 09:00 09/04/17 08:59 Heparin Sodium (Porcine) (Heparin 5000 units/ml) 5,000 units EVERY 12 HOURS SUBQ 08/03/17 09:00 09/02/17 08:59 08/04/17 10:04 Lansoprazole (Prevacid) 30 mg DAILY ORAL 08/02/17 11:00 09/01/17 10:59 08/04/17 10:07 Lorazepam (Ativan 2mg/ml 1ml) 2 mg Q4H PRN IV Agitation seizure 08/01/17 10:00 08/08/17 09:59 Magnesium Sulfate 100 ml @ 100 mls/hr Q1H IVPB 08/04/17 12:00 08/04/17 15:59 08/04/17 14:49 Metoprolol Tartrate (Lopressor) 12.5 mg Q12HR ORAL 08/04/17 21:00 09/03/17 20:59 Metronidazole 100 ml @ 100 mls/hr Q8HR IVPB 07/31/17 22:30 08/07/17 22:29 08/04/17 13:55 Nitroglycerin (Ntg) 1 patch Q24H TDERMAL 08/03/17 15:00 09/02/17 14:59 Nystatin (Nystatin) 5 ml QID ORAL 08/01/17 14:00 08/08/17 13:59 08/04/17 13:52 Potassium Chloride 40 meq/ Sodium Chloride 570 ml @ 142.5 mls/ hr ONCE ONCE IVPB 08/04/17 18:30 08/04/17 22:29 Potassium Phosphate 30 mm/ Sodium Chloride 285 ml @ 47.5 mls/hr ONCE ONCE IV 08/04/17 12:30 08/04/17 18:29 08/04/17 13:20 Thiamine HCl (Vitamin B1) 100 mg DAILY ORAL 08/05/17 09:00 09/04/17 08:59 Vancomycin HCl (Vanco rx to dose) 1 ea DAILY PRN MISC Per rx protocol 07/31/17 22:30 08/30/17 22:29 Vancomycin HCl/ Dextrose 250 ml @ 125 mls/hr Q8HR IVPB 08/02/17 22:00 08/07/17 21:59 08/04/17 14:49 Lubna Bey M.D. Aug 04, 2017 15:14
[2017-08-04 16:00] VITALS: BP 112/73
--- NOTE | 2017-08-04 16:06 | Diagnostic Imaging Report ---
Indication: Cough Technique: One view of the chest Comparison: 02/10/2015 Findings: There is hazy appearance to the mid and lower lungs bilaterally. The heart size is normal. The pleural spaces are clear. Impression: Hazy appearance to the bilateral mid and lower lungs, may reflect mild pulmonary edema, among other possibilities. Correlate with clinical findings
[2017-08-04] MEDS ORDERED: Potassium Chloride 40 MEQ in Sodium Chloride 500ML 550 ML IVPB ONE (18:30)
[2017-08-04 20:00] VITALS: BP 111/72
[2017-08-04] MEDS: Metoprolol Tartrate 12.5mg TAB ORAL SCH (22:08)
[2017-08-05] VITALS: BP 120/73
[2017-08-05 04:01] VITALS: BP 109/69
[2017-08-05] MEDS: chlordiazePOXIDE 25mg Cap ORAL SCH ×2 (05:31→21:22)
[2017-08-05] MEDS: Vancomycin 1.5 GM/D5W 250ML IVPB SCH (05:32)
[2017-08-05 08:00] VITALS: BP 113/73
--- NOTE | 2017-08-05 08:02 | General Progress Note ---
Assessment/Plan Assessment/Plan LATE ENTRY ASSESSMENT AND RECOMMENDATIONS: 1. Tonic-clonic seizure --> continue seizure meds, neuro is on the case --> continue alcohol withdrawal protocol 2. Fever, suspected due to potential infection. Better 3. Alcohol withdrawal seizure. Continue to closely monitor. Educate re cessation 4. Thrombocytopenia, will obtain abdominal ultrasound and complete viral studies. HIV negative, hepatitis negative -> abd US consistent with hepatocellular disease -> plt count normalized now 5. Aspiration pneumonia 6. Oral thrush 7. Anemia, currently mild. Will continue to monitor Subjective Date patient seen: Aug 04, 2017 Allergies: Coded Allergies: No Known Allergies (Unverified , 02/10/15) All Systems: reviewed and negative except above Subjective NAD Objective Last 24 Hour Vital Signs Date Time Temp Pulse Resp B/P (MAP) Pulse Ox O2 Delivery O2 Flow Rate FiO2 08/05/17 04:01 98.1 98 20 109/69 91 Room Air 08/05/17 04:00 93 08/05/17 04:00 Room Air 08/05/17 00:00 94 08/05/17 00:00 Room Air 08/05/17 00:00 97.0 92 20 120/73 95 Room Air 08/04/17 22:08 94 111/72 08/04/17 20:00 Room Air 08/04/17 20:00 99.3 94 20 111/72 93 Room Air 08/04/17 20:00 100 08/04/17 16:00 97.9 92 20 112/73 91 92 08/04/17 16:00 90 08/04/17 12:00 98.1 108 20 103/65 92 08/04/17 12:00 106 08/04/17 11:53 107 103/65 08/04/17 08:08 97.9 98 20 113/69 93 Intake and Output 08/04/17 08/05/17 19:00 07:00 Intake Total 687.5 ml 932.5 ml Output Total 2000 ml 1800 ml Balance -1312.5 ml -867.5 ml Intake Oral 420 ml IV Total 267.5 ml 932.5 ml Output Urine Total 2000 ml 1800 ml Height (Feet): 5 Height (Inches): 8.00 Weight (Pounds): 150 General Appearance: no apparent distress EENT: normal ENT inspection Cardiovascular: normal peripheral pulses Respiratory/Chest: chest wall non-tender Abdomen: normal bowel sounds Edema: mild edema Robert Johnston Aug 05, 2017 08:02
[2017-08-05 08:17] LABS: HEMATOCRIT 39.8 % (42.0-52.0); HEMOGLOBIN 13.2 G/DL (14.2-18.0); MEAN CORPUSCULAR VOLUME 101 FL (80-99); PLATELET COUNT 242 K/UL (150-450); RED BLOOD COUNT 3.95 M/UL (4.70-6.10); RED CELL DISTRIBUTION WIDTH 13.3 % (11.6-14.8); WHITE BLOOD COUNT 8.1 K/UL (4.8-10.8)
[2017-08-05 08:34] LABS: ALANINE AMINOTRANSFERASE 17 U/L (12-78); ALBUMIN 2.4 G/DL (3.4-5.0); ALBUMIN/GLOBULIN RATIO 0.6 (1.0-2.7); ALKALINE PHOSPHATASE 68 U/L (46-116); ANION GAP 5 mmol/L (5-15); ASPARTATE AMINO TRANSFERASE 44 U/L (15-37); BILIRUBIN,TOTAL 0.6 MG/DL (0.2-1.0); BLOOD UREA NITROGEN 2 mg/dL (7-18); CALCIUM 7.1 MG/DL (8.5-10.1); CARBON DIOXIDE 27 MMOL/L (21-32); CHLORIDE 103 MMOL/L (98-107); CREATININE 0.5 MG/DL (0.55-1.30); GAMMA GLUTAMYL TRANSPEPTIDASE 374 U/L (5-85); PHOSPHORUS 2.1 MG/DL (2.5-4.9); POTASSIUM 3.1 MMOL/L (3.5-5.1); SODIUM 135 MMOL/L (136-145)
[2017-08-05] MEDS: Nystatin Susp 500,000 units/5ml ORAL SCH ×4 (08:42→20:38)
[2017-08-05] MEDS: Pancrease Cap ORAL SCH ×3 (08:42→18:53)
[2017-08-05] MEDS: Metoprolol Tartrate 12.5mg TAB ORAL SCH (08:42)
[2017-08-05] MEDS: cefTRIAXone 2 GM in D5W 55 ML IVPB SCH ×2 (08:43→20:38)
[2017-08-05] MEDS: Heparin 5000 units/ml inj SUBQ SCH ×2 (08:44→20:40)
[2017-08-05] MEDS ORDERED: Thiamine 100mg tab ORAL SCH (09:00)
[2017-08-05] MEDS ORDERED: Potassium Phosphate 30 MM in NS 275 ML IV ONE ×2 (10:30→15:30)
--- NOTE | 2017-08-05 10:51 | Nephrology Progress Note ---
Assessment/Plan Problem List: (1) Elevated troponin (2) Altered mental status (3) Diarrhea (4) Alcohol withdrawal seizure (5) Electrolyte and fluid disorder Assessment Electrolyte imbalance due to dehydration and diarrhea diarrhea resolved (1) Altered mental status (2) Diarrhea ? Pancreatic insuff (3) Fever (4) Alcohol withdrawal seizure (5) Non-compliance (6) Anemia (7) troponin elevation Plan Plan: IV K and Phos and Mag supplement DC IV fluid Per GI and ID nitrates per orders low dose beta carol DC planning Subjective ROS Limited/Unobtainable: No Objective Objective Last 24 Hour Vital Signs Date Time Temp Pulse Resp B/P (MAP) Pulse Ox O2 Delivery O2 Flow Rate FiO2 08/05/17 08:42 107 113/73 08/05/17 08:00 97.1 107 20 113/73 93 Room Air 08/05/17 04:01 98.1 98 20 109/69 91 Room Air 08/05/17 04:00 93 08/05/17 04:00 Room Air 08/05/17 00:00 94 08/05/17 00:00 Room Air 08/05/17 00:00 97.0 92 20 120/73 95 Room Air 08/04/17 22:08 94 111/72 08/04/17 20:00 Room Air 08/04/17 20:00 99.3 94 20 111/72 93 Room Air 08/04/17 20:00 100 08/04/17 16:00 97.9 92 20 112/73 91 92 08/04/17 16:00 90 08/04/17 12:00 98.1 108 20 103/65 92 08/04/17 12:00 106 08/04/17 11:53 107 103/65 Intake and Output 08/04/17 08/05/17 19:00 07:00 Intake Total 687.5 ml 932.5 ml Output Total 2000 ml 1800 ml Balance -1312.5 ml -867.5 ml Intake Oral 420 ml IV Total 267.5 ml 932.5 ml Output Urine Total 2000 ml 1800 ml Laboratory Tests 08/05/17 07:45: White Blood Count 8.1, Red Blood Count 3.95L, Hemoglobin 13.2L, Hematocrit 39.8L , Mean Corpuscular Volume 101H, Mean Corpuscular Hemoglobin 33.5H, Mean Corpuscular Hemoglobin Concent 33.3, Red Cell Distribution Width 13.3, Platelet Count 242, Mean Platelet Volume 6.9, Neutrophils (%) (Auto) , Lymphocytes (%) ( Auto) , Monocytes (%) (Auto) , Eosinophils (%) (Auto) , Basophils (%) (Auto) , Differential Total Cells Counted 100, Neutrophils % (Manual) 58, Lymphocytes % ( Manual) 16L, Monocytes % (Manual) 23H, Eosinophils % (Manual) 3, Basophils % ( Manual) 0, Band Neutrophils 0, Platelet Estimate Adequate, Platelet Morphology Normal, Macrocytosis 1+, Sodium Level 135L, Potassium Level 3.1L, Chloride Level 103, Carbon Dioxide Level 27, Anion Gap 5, Blood Urea Nitrogen 2L, Creatinine 0.5L, Estimat Glomerular Filtration Rate > 60, Glucose Level 107H, Uric Acid 2.0L, Calcium Level 7.1L, Phosphorus Level 2.1L, Magnesium Level 1.5L , Total Bilirubin 0.6, Gamma Glutamyl Transpeptidase 374H, Aspartate Amino Transf (AST/SGOT) 44H, Alanine Aminotransferase (ALT/SGPT) 17, Alkaline Phosphatase 68, Troponin I 0.026, C-Reactive Protein, Quantitative 3.2H, Pro-B- Type Natriuretic Peptide 764H, Total Protein 6.2L, Albumin 2.4L, Globulin 3.8, Albumin/Globulin Ratio 0.6L Height (Feet): 5 Height (Inches): 8.00 Weight (Pounds): 150 General Appearance: no apparent distress Cardiovascular: tachycardia Abdomen: soft Objective no change LANDRY ORO Aug 05, 2017 10:51
[2017-08-05] MEDS ORDERED: Metoprolol Tartrate 12.5mg TAB ORAL ONE (11:00)
[2017-08-05] MEDS ORDERED: Vitamin D 50,000 units cap ORAL SCH (11:30)
[2017-08-05 12:00] VITALS: BP 99/66
--- NOTE | 2017-08-05 14:26 | Infectious Diseases Prog Note ---
Assessment/Plan Problems: (1) Altered mental status Assessment & Plan: due to seizure breakthrough , improved, continue vancomycin and ceftriaxon empirically , suspect aspiration pneumonia , mainly due to altered mental status, await culture results (2) Aspiration pneumonia Assessment & Plan: due to the above, on vancomycin, ceftriaxon and flagyl , monitor CXR (3) Diarrhea Assessment & Plan: continue metronidazol empirically , pending stool culture and C diff (4) Fever Assessment & Plan: due to the above, resolved , await blood culture and stool study , continue vancomcyin and ceftriaxon to cover for possible sepsis, and pneumonia (5) Alcohol withdrawal seizure Assessment & Plan: restart seizure meds, neurology is following (6) Non-compliance Assessment & Plan: recommend counseling and alcohol rehab (7) Oral thrush Assessment & Plan: continue oral nystatin, screening for HIV is negative Subjective Constitutional: Reports: no symptoms HEENT: Reports: no symptoms Respiratory: Reports: no symptoms Breasts: Reports: no symptoms Cardiovascular: Reports: no symptoms Gastrointestinal/Abdominal: Reports: no symptoms Genitourinary: Reports: no symptoms Neurologic: Reports: no symptoms Psychiatric: Reports: no symptoms Skin: Reports: no symptoms Endocrine: Reports: no symptoms Hematologic: Reports: no symptoms Musculoskeletal: Reports: no symptoms Allergies: Coded Allergies: No Known Allergies (Unverified , 02/10/15) Subjective he was more awake and alert, denied ay headache or photophobia , no fever or chills, no cough or SOB, more responsive Objective Vital Signs Last 24 Hour Vital Signs Date Time Temp Pulse Resp B/P (MAP) Pulse Ox O2 Delivery O2 Flow Rate FiO2 08/05/17 12:00 96.2 103 20 99/66 96 Room Air 08/05/17 11:18 107 113/73 08/05/17 08:42 107 113/73 08/05/17 08:00 103 08/05/17 08:00 97.1 107 20 113/73 93 Room Air 08/05/17 04:01 98.1 98 20 109/69 91 Room Air 08/05/17 04:00 93 08/05/17 04:00 Room Air 08/05/17 00:00 94 08/05/17 00:00 Room Air 08/05/17 00:00 97.0 92 20 120/73 95 Room Air 08/04/17 22:08 94 111/72 12/28/17 20:00 Room Air 08/04/17 20:00 99.3 94 20 111/72 93 Room Air 08/04/17 20:00 100 08/04/17 16:00 97.9 92 20 112/73 91 92 08/04/17 16:00 90 Height (Feet): 5 Height (Inches): 8.00 Weight (Pounds): 150 General Appearance: WD/WN, no acute distress HEENT: normocephalic, atraumatic, anicteric, mucous membranes moist Respiratory/Chest: chest wall non-tender, no respiratory distress, no accessory muscle use, decreased breath sounds, expiratory wheezing Cardiovascular: normal peripheral pulses, normal rate, regular rhythm, no gallop/murmur, no JVD Abdomen: normal bowel sounds, soft, non tender, no organomegaly, non distended , no mass, no scars Extremities: no cyanosis, no clubbing Skin: no rash, no lesions, no ulcers Neurologic/Psychiatric: alert, oriented x 3, responsive Laboratory Tests Test 08/05/17 07:45 White Blood Count 8.1 K/UL (4.8-10.8) Red Blood Count 3.95 M/UL (4.70-6.10) L Hemoglobin 13.2 G/DL (14.2-18.0) L Hematocrit 39.8 % (42.0-52.0) L Mean Corpuscular Volume 101 FL (80-99) H Mean Corpuscular Hemoglobin 33.5 PG (27.0-31.0) H Mean Corpuscular Hemoglobin Concent 33.3 G/DL (32.0-36.0) Red Cell Distribution Width 13.3 % (11.6-14.8) Platelet Count 242 K/UL (150-450) Mean Platelet Volume 6.9 FL (6.5-10.1) Neutrophils (%) (Auto) % (45.0-75.0) Lymphocytes (%) (Auto) % (20.0-45.0) Monocytes (%) (Auto) % (1.0-10.0) Eosinophils (%) (Auto) % (0.0-3.0) Basophils (%) (Auto) % (0.0-2.0) Differential Total Cells Counted 100 Neutrophils % (Manual) 58 % (45-75) Lymphocytes % (Manual) 16 % (20-45) L Monocytes % (Manual) 23 % (1-10) H Eosinophils % (Manual) 3 % (0-3) Basophils % (Manual) 0 % (0-2) Band Neutrophils 0 % (0-8) Platelet Estimate Adequate Platelet Morphology Normal Macrocytosis 1+ Sodium Level 135 MMOL/L (136-145) L Potassium Level 3.1 MMOL/L (3.5-5.1) L Chloride Level 103 MMOL/L (98-107) Carbon Dioxide Level 27 MMOL/L (21-32) Anion Gap 5 mmol/L (5-15) Blood Urea Nitrogen 2 mg/dL (7-18) L Creatinine 0.5 MG/DL (0.55-1.30) L Estimat Glomerular Filtration Rate > 60 mL/min (>60) Glucose Level 107 MG/DL (74-106) H Uric Acid 2.0 MG/DL (2.6-7.2) L Calcium Level 7.1 MG/DL (8.5-10.1) L Phosphorus Level 2.1 MG/DL (2.5-4.9) L Magnesium Level 1.5 MG/DL (1.8-2.4) L Total Bilirubin 0.6 MG/DL (0.2-1.0) Gamma Glutamyl Transpeptidase 374 U/L (5-85) H Aspartate Amino Transf (AST/SGOT) 44 U/L (15-37) H Alanine Aminotransferase (ALT/SGPT) 17 U/L (12-78) Alkaline Phosphatase 68 U/L (46-116) Troponin I 0.026 ng/mL (0.000-0.056) C-Reactive Protein, Quantitative 3.2 mg/dL (0.00-0.90) H Pro-B-Type Natriuretic Peptide 764 pg/mL (0-125) H Total Protein 6.2 G/DL (6.4-8.2) L Albumin 2.4 G/DL (3.4-5.0) L Globulin 3.8 g/dL Albumin/Globulin Ratio 0.6 (1.0-2.7) L Current Medications Medications (Trade) Dose Ordered Sig/Tonny Route PRN Reason Start Time Stop Time Status Last Admin Dose Admin Acetaminophen (Tylenol) 650 mg Q8HR PRN ORAL Mild Pain/Temp > 100.5 07/31/17 23:00 08/30/17 22:59 08/01/17 20:45 Amylase/Lipase/ Protease (Pancrease) 3 ea THREE TIMES A DAY ORAL 08/04/17 13:00 09/03/17 12:59 08/05/17 13:34 Ceftriaxone Sodium 2 gm/ Dextrose 55 ml @ 110 mls/hr EVERY 12 HOURS IVPB 08/01/17 09:00 08/08/17 08:59 08/05/17 08:43 Chlordiazepoxide (Librium) 25 mg Q8HR ORAL 08/01/17 10:30 08/07/17 10:29 08/05/17 05:31 Ergocalciferol (Drisdol) 50,000 intlu QWEEK ORAL 08/05/17 11:30 09/04/17 11:29 08/05/17 11:18 Folic Acid (Folate) 1 mg DAILY ORAL 08/05/17 09:00 09/04/17 08:59 08/05/17 08:41 Heparin Sodium (Porcine) (Heparin 5000 units/ml) 5,000 units EVERY 12 HOURS SUBQ 08/03/17 09:00 09/02/17 08:59 08/05/17 08:44 Lansoprazole (Prevacid) 30 mg DAILY ORAL 08/02/17 11:00 09/01/17 10:59 08/05/17 08:43 Lorazepam (Ativan 2mg/ml 1ml) 2 mg Q4H PRN IV Agitation seizure 08/01/17 10:00 08/08/17 09:59 Metoprolol Tartrate (Lopressor) 25 mg Q12HR ORAL 08/05/17 21:00 09/04/17 20:59 Metronidazole 100 ml @ 100 mls/hr Q8HR IVPB 07/31/17 22:30 08/07/17 22:29 08/05/17 05:32 Nitroglycerin (Ntg) 1 patch Q24H TDERMAL 08/03/17 15:00 09/02/17 14:59 Nystatin (Nystatin) 5 ml QID ORAL 08/01/17 14:00 08/08/17 13:59 08/05/17 13:33 Potassium Phosphate 30 mm/ Sodium Chloride 285 ml @ 47.5 mls/hr ONCE ONCE IV 08/05/17 10:30 08/05/17 16:29 08/05/17 11:03 Potassium Chloride (K-Dur) 40 meq TWICE A DAY ORAL 08/05/17 09:30 09/04/17 09:29 08/05/17 11:18 Thiamine HCl (Vitamin B1) 100 mg DAILY ORAL 08/05/17 09:00 09/04/17 08:59 08/05/17 08:43 Vancomycin HCl (Vanco rx to dose) 1 ea DAILY PRN MISC Per rx protocol 07/31/17 22:30 08/30/17 22:29 Vancomycin HCl/ Dextrose 250 ml @ 125 mls/hr Q8HR IVPB 08/02/17 22:00 08/07/17 21:59 08/05/17 05:32 Lubna Bey M.D. Aug 05, 2017 14:26
--- NOTE | 2017-08-05 15:15 | Infectious Diseases Prog Note ---
Assessment/Plan Problems: (1) Altered mental status Assessment & Plan: due to seizure breakthrough , improved, continue vancomycin and ceftriaxon empirically , suspect aspiration pneumonia , mainly due to altered mental status, await culture results (2) Aspiration pneumonia Assessment & Plan: due to the above, on vancomycin, ceftriaxon and flagyl , monitor CXR (3) Diarrhea Assessment & Plan: continue metronidazol empirically , pending stool culture and C diff (4) Fever Assessment & Plan: due to the above, resolved , await blood culture and stool study , continue vancomcyin and ceftriaxon to cover for possible sepsis, and pneumonia (5) Alcohol withdrawal seizure Assessment & Plan: restart seizure meds, neurology is following (6) Non-compliance Assessment & Plan: recommend counseling and alcohol rehab (7) Oral thrush Assessment & Plan: continue oral nystatin, screening for HIV is negative Subjective Constitutional: Reports: no symptoms HEENT: Reports: no symptoms Respiratory: Reports: no symptoms Breasts: Reports: no symptoms Cardiovascular: Reports: no symptoms Gastrointestinal/Abdominal: Reports: no symptoms Genitourinary: Reports: no symptoms Neurologic: Reports: no symptoms Psychiatric: Reports: no symptoms Skin: Reports: no symptoms Endocrine: Reports: no symptoms Hematologic: Reports: no symptoms Allergies: Coded Allergies: No Known Allergies (Unverified , 02/10/15) Subjective he was more awake and alert, denied ay headache or photophobia , no fever or chills, no cough or SOB, more responsive Objective Vital Signs Last 24 Hour Vital Signs Date Time Temp Pulse Resp B/P (MAP) Pulse Ox O2 Delivery O2 Flow Rate FiO2 08/05/17 12:00 96.2 103 20 99/66 96 Room Air 08/05/17 11:18 107 113/73 08/05/17 08:42 107 113/73 08/05/17 08:00 103 08/05/17 08:00 97.1 107 20 113/73 93 Room Air 08/05/17 04:01 98.1 98 20 109/69 91 Room Air 08/05/17 04:00 93 08/05/17 04:00 Room Air 08/05/17 00:00 94 08/05/17 00:00 Room Air 08/05/17 00:00 97.0 92 20 120/73 95 Room Air 08/04/17 22:08 94 111/72 08/04/17 20:00 Room Air 08/04/17 20:00 99.3 94 20 111/72 93 Room Air 08/04/17 20:00 100 08/04/17 16:00 97.9 92 20 112/73 91 92 08/04/17 16:00 90 Height (Feet): 5 Height (Inches): 8.00 Weight (Pounds): 150 General Appearance: WD/WN, no acute distress HEENT: normocephalic, atraumatic, anicteric, mucous membranes moist Respiratory/Chest: lungs clear, no respiratory distress, no accessory muscle use, decreased breath sounds, crackles/rales Cardiovascular: normal peripheral pulses, normal rate, regular rhythm, no JVD Abdomen: normal bowel sounds, soft, non tender, no organomegaly, non distended , no mass, no scars Extremities: no cyanosis, no clubbing Skin: no rash, no lesions, no ulcers Neurologic/Psychiatric: alert, oriented x 3, responsive Lymphatic: no neck adenopathy, no groin adenopathy Musculoskeletal: normal muscle bulk, no effusion Laboratory Tests Test 08/05/17 07:45 White Blood Count 8.1 K/UL (4.8-10.8) Red Blood Count 3.95 M/UL (4.70-6.10) L Hemoglobin 13.2 G/DL (14.2-18.0) L Hematocrit 39.8 % (42.0-52.0) L Mean Corpuscular Volume 101 FL (80-99) H Mean Corpuscular Hemoglobin 33.5 PG (27.0-31.0) H Mean Corpuscular Hemoglobin Concent 33.3 G/DL (32.0-36.0) Red Cell Distribution Width 13.3 % (11.6-14.8) Platelet Count 242 K/UL (150-450) Mean Platelet Volume 6.9 FL (6.5-10.1) Neutrophils (%) (Auto) % (45.0-75.0) Lymphocytes (%) (Auto) % (20.0-45.0) Monocytes (%) (Auto) % (1.0-10.0) Eosinophils (%) (Auto) % (0.0-3.0) Basophils (%) (Auto) % (0.0-2.0) Differential Total Cells Counted 100 Neutrophils % (Manual) 58 % (45-75) Lymphocytes % (Manual) 16 % (20-45) L Monocytes % (Manual) 23 % (1-10) H Eosinophils % (Manual) 3 % (0-3) Basophils % (Manual) 0 % (0-2) Band Neutrophils 0 % (0-8) Platelet Estimate Adequate Platelet Morphology Normal Macrocytosis 1+ Sodium Level 135 MMOL/L (136-145) L Potassium Level 3.1 MMOL/L (3.5-5.1) L Chloride Level 103 MMOL/L (98-107) Carbon Dioxide Level 27 MMOL/L (21-32) Anion Gap 5 mmol/L (5-15) Blood Urea Nitrogen 2 mg/dL (7-18) L Creatinine 0.5 MG/DL (0.55-1.30) L Estimat Glomerular Filtration Rate > 60 mL/min (>60) Glucose Level 107 MG/DL (74-106) H Uric Acid 2.0 MG/DL (2.6-7.2) L Calcium Level 7.1 MG/DL (8.5-10.1) L Phosphorus Level 2.1 MG/DL (2.5-4.9) L Magnesium Level 1.5 MG/DL (1.8-2.4) L Total Bilirubin 0.6 MG/DL (0.2-1.0) Gamma Glutamyl Transpeptidase 374 U/L (5-85) H Aspartate Amino Transf (AST/SGOT) 44 U/L (15-37) H Alanine Aminotransferase (ALT/SGPT) 17 U/L (12-78) Alkaline Phosphatase 68 U/L (46-116) Troponin I 0.026 ng/mL (0.000-0.056) C-Reactive Protein, Quantitative 3.2 mg/dL (0.00-0.90) H Pro-B-Type Natriuretic Peptide 764 pg/mL (0-125) H Total Protein 6.2 G/DL (6.4-8.2) L Albumin 2.4 G/DL (3.4-5.0) L Globulin 3.8 g/dL Albumin/Globulin Ratio 0.6 (1.0-2.7) L Current Medications Medications (Trade) Dose Ordered Sig/Tonny Route PRN Reason Start Time Stop Time Status Last Admin Dose Admin Acetaminophen (Tylenol) 650 mg Q8HR PRN ORAL Mild Pain/Temp > 100.5 08/05/17 22:00 08/30/17 22:59 Amylase/Lipase/ Protease (Pancrease) 3 ea THREE TIMES A DAY ORAL 08/05/17 18:00 09/03/17 12:59 Ceftriaxone Sodium 2 gm/ Dextrose 55 ml @ 110 mls/hr EVERY 12 HOURS IVPB 08/05/17 21:00 08/08/17 08:59 Chlordiazepoxide (Librium) 25 mg Q8HR ORAL 08/05/17 22:00 08/07/17 10:29 Ergocalciferol (Drisdol) 50,000 intlu QWEEK ORAL 08/12/17 11:30 09/04/17 11:29 Folic Acid (Folate) 1 mg DAILY ORAL 08/06/17 09:00 09/04/17 08:59 Heparin Sodium (Porcine) (Heparin 5000 units/ml) 5,000 units EVERY 12 HOURS SUBQ 08/05/17 21:00 09/02/17 08:59 Lansoprazole (Prevacid) 30 mg DAILY ORAL 08/06/17 09:00 09/01/17 10:59 Lorazepam (Ativan 2mg/ml 1ml) 2 mg Q4H PRN IV Agitation seizure 08/05/17 18:00 08/08/17 09:59 Metoprolol Tartrate (Lopressor) 25 mg Q12HR ORAL 08/05/17 21:00 09/04/17 20:59 Metronidazole 100 ml @ 100 mls/hr Q8H IVPB 08/05/17 15:30 08/12/17 15:29 Nitroglycerin (Ntg) 1 patch Q24H TDERMAL 08/05/17 15:30 09/02/17 15:29 Nystatin (Nystatin) 5 ml QID ORAL 08/05/17 18:00 08/08/17 13:59 Potassium Phosphate 30 mm/ Sodium Chloride 285 ml @ 47.5 mls/hr ONCE ONCE IV 08/05/17 10:30 08/05/17 16:29 08/05/17 11:03 Potassium Phosphate 30 mm/ Sodium Chloride 285 ml @ 47.5 mls/hr ONCE ONCE IV 08/05/17 15:30 08/05/17 21:29 Potassium Chloride (K-Dur) 40 meq TWICE A DAY ORAL 08/05/17 18:00 09/04/17 09:29 Thiamine HCl (Vitamin B1) 100 mg DAILY ORAL 08/06/17 09:00 09/04/17 08:59 Vancomycin HCl (Vanco rx to dose) 1 ea DAILY PRN MISC Per rx protocol 08/06/17 09:00 08/30/17 22:29 Vancomycin HCl/ Dextrose 250 ml @ 125 mls/hr Q8H IVPB 08/05/17 15:30 08/10/17 15:29 Lubna Bey M.D. Aug 05, 2017 15:15
[2017-08-05 15:58] VITALS: BP 120/77
[2017-08-05] MEDS: Nitroglycerin Patch 0.2mg/hr TDERMAL SCH (17:11)
[2017-08-05] MEDS: Vancomycin 1.5gm/D5W 250ml 250 ML IVPB SCH ×2 (17:12→23:53)
[2017-08-05] MEDS ORDERED: LORazepam Inj 2mg/ml 1ml IV PRN (18:00)
[2017-08-05 20:13] VITALS: BP 120/78
[2017-08-05] MEDS: Metoprolol 25mg tab ORAL SCH (20:39)
[2017-08-05] MEDS ORDERED: Metoprolol 25mg tab ORAL SCH (21:00)
--- NOTE | 2017-08-05 21:20 | General Progress Note ---
Assessment/Plan Assessment/Plan ASSESSMENT AND RECOMMENDATIONS: 1. Tonic-clonic seizure --> continue seizure meds, neuro is on the case --> continue alcohol withdrawal protocol 2. Fever, suspected due to potential infection. Better 3. Alcohol withdrawal seizure. Continue to closely monitor. Educate re cessation 4. Thrombocytopenia, will obtain abdominal ultrasound and complete viral studies. HIV negative, hepatitis negative -> abd US consistent with hepatocellular disease -> plt count normalized now 5. Aspiration pneumonia 6. Oral thrush 7. Anemia, currently mild. Will continue to monitor Subjective Allergies: Coded Allergies: No Known Allergies (Unverified , 02/10/15) All Systems: reviewed and negative except above Subjective NAD Objective Last 24 Hour Vital Signs Date Time Temp Pulse Resp B/P (MAP) Pulse Ox O2 Delivery O2 Flow Rate FiO2 08/05/17 20:39 90 120/78 08/05/17 20:13 98.3 90 20 120/78 96 Room Air 08/05/17 17:11 120/77 08/05/17 15:58 96.2 86 20 120/77 97 Room Air 08/05/17 12:00 96.2 103 20 99/66 96 Room Air 08/05/17 11:18 107 113/73 08/05/17 08:42 107 113/73 08/05/17 08:00 103 08/05/17 08:00 97.1 107 20 113/73 93 Room Air 08/05/17 04:01 98.1 98 20 109/69 91 Room Air 08/05/17 04:00 93 08/05/17 04:00 Room Air 08/05/17 00:00 94 08/05/17 00:00 Room Air 08/05/17 00:00 97.0 92 20 120/73 95 Room Air 08/04/17 22:08 94 111/72 Intake and Output 08/04/17 08/05/17 19:00 07:00 Intake Total 687.5 ml 932.5 ml Output Total 2000 ml 1800 ml Balance -1312.5 ml -867.5 ml Intake Oral 420 ml IV Total 267.5 ml 932.5 ml Output Urine Total 2000 ml 1800 ml Laboratory Tests 08/05/17 07:45: White Blood Count 8.1, Red Blood Count 3.95L, Hemoglobin 13.2L, Hematocrit 39.8L , Mean Corpuscular Volume 101H, Mean Corpuscular Hemoglobin 33.5H, Mean Corpuscular Hemoglobin Concent 33.3, Red Cell Distribution Width 13.3, Platelet Count 242, Mean Platelet Volume 6.9, Neutrophils (%) (Auto) , Lymphocytes (%) ( Auto) , Monocytes (%) (Auto) , Eosinophils (%) (Auto) , Basophils (%) (Auto) , Differential Total Cells Counted 100, Neutrophils % (Manual) 58, Lymphocytes % ( Manual) 16L, Monocytes % (Manual) 23H, Eosinophils % (Manual) 3, Basophils % ( Manual) 0, Band Neutrophils 0, Platelet Estimate Adequate, Platelet Morphology Normal, Macrocytosis 1+, Sodium Level 135L, Potassium Level 3.1L, Chloride Level 103, Carbon Dioxide Level 27, Anion Gap 5, Blood Urea Nitrogen 2L, Creatinine 0.5L, Estimat Glomerular Filtration Rate > 60, Glucose Level 107H, Uric Acid 2.0L, Calcium Level 7.1L, Phosphorus Level 2.1L, Magnesium Level 1.5L , Total Bilirubin 0.6, Gamma Glutamyl Transpeptidase 374H, Aspartate Amino Transf (AST/SGOT) 44H, Alanine Aminotransferase (ALT/SGPT) 17, Alkaline Phosphatase 68, Troponin I 0.026, C-Reactive Protein, Quantitative 3.2H, Pro-B- Type Natriuretic Peptide 764H, Total Protein 6.2L, Albumin 2.4L, Globulin 3.8, Albumin/Globulin Ratio 0.6L Height (Feet): 5 Height (Inches): 8.00 Weight (Pounds): 150 General Appearance: no apparent distress EENT: normal ENT inspection Neck: normal alignment Cardiovascular: normal peripheral pulses Abdomen: normal bowel sounds Extremities: non-tender Neurologic: rn labor delivery II-XII grossly normal Robert Johnston Aug 05, 2017 21:20
[2017-08-06 00:02] VITALS: BP 120/72
[2017-08-06 04:00] VITALS: BP 108/71
[2017-08-06] MEDS: chlordiazePOXIDE 25mg Cap ORAL SCH ×2 (05:47→13:43)
[2017-08-06] MEDS: Vancomycin 1.5gm/D5W 250ml 250 ML IVPB SCH ×2 (06:33→15:30)
[2017-08-06 07:55] VITALS: BP 108/71
[2017-08-06] MEDS: cefTRIAXone 2 GM in D5W 55 ML IVPB SCH (08:26)
[2017-08-06] MEDS: Pancrease Cap ORAL SCH ×2 (08:27→13:37)
[2017-08-06] MEDS: Nystatin Susp 500,000 units/5ml ORAL SCH ×2 (08:27→13:37)
[2017-08-06] MEDS: Metoprolol 25mg tab ORAL SCH (08:28)
[2017-08-06] MEDS: Heparin 5000 units/ml inj SUBQ SCH (08:36)
[2017-08-06] MEDS ORDERED: Thiamine 100mg tab ORAL SCH (09:00)
[2017-08-06 11:48] VITALS: BP 99/67
[2017-08-06] MEDS: Nitroglycerin Patch 0.2mg/hr TDERMAL SCH (14:42)
--- NOTE | 2017-08-06 15:24 | Nephrology Progress Note ---
Assessment/Plan Problem List: (1) Elevated troponin (2) Altered mental status (3) Diarrhea (4) Alcohol withdrawal seizure (5) Electrolyte and fluid disorder Assessment Electrolyte imbalance due to dehydration and diarrhea diarrhea resolved (1) Altered mental status (2) Diarrhea ? Pancreatic insuff (3) Fever (4) Alcohol withdrawal seizure (5) Non-compliance (6) Anemia (7) troponin elevation Plan Plan: no labs today IV K and Phos and Mag supplement DC IV fluid Per GI and ID nitrates per orders low dose beta carol DC planning Subjective ROS Limited/Unobtainable: No Constitutional: Reports: malaise Objective Objective Last 24 Hour Vital Signs Date Time Temp Pulse Resp B/P (MAP) Pulse Ox O2 Delivery O2 Flow Rate FiO2 08/06/17 14:42 110/80 08/06/17 11:48 99.1 88 18 99/67 92 Room Air 08/06/17 08:28 95 111/73 08/06/17 07:55 98.4 95 20 108/71 91 Room Air 08/06/17 04:00 98.5 90 20 108/71 94 Nasal Cannula 08/06/17 00:02 98.7 90 20 120/72 94 Room Air 08/05/17 20:39 90 120/78 08/05/17 20:13 98.3 90 20 120/78 96 Room Air 08/05/17 17:11 120/77 08/05/17 15:58 96.2 86 20 120/77 97 Room Air Intake and Output 08/05/17 08/06/17 19:00 07:00 Intake Total 830 ml 600 ml Output Total 850 ml 1000 ml Balance -20 ml -400 ml Intake Oral 830 ml 600 ml Output Urine Total 850 ml 1000 ml # Bowel Movements 1 Height (Feet): 5 Height (Inches): 8.00 Weight (Pounds): 150 General Appearance: no apparent distress Objective no change LANDRY ORO Aug 06, 2017 15:24
--- NOTE | 2017-08-06 15:34 | Infectious Diseases Prog Note ---
Assessment/Plan Problems: (1) Altered mental status Assessment & Plan: due to seizure breakthrough , improved, continue vancomycin and ceftriaxon empirically , suspect aspiration pneumonia , mainly due to altered mental status, await culture results (2) Aspiration pneumonia Assessment & Plan: due to the above, on vancomycin, ceftriaxon and flagyl , monitor CXR (3) Diarrhea Assessment & Plan: continue metronidazol empirically , pending stool culture and C diff (4) Fever Assessment & Plan: due to the above, resolved , await blood culture and stool study , continue vancomcyin and ceftriaxon to cover for possible sepsis, and pneumonia (5) Alcohol withdrawal seizure Assessment & Plan: restart seizure meds, neurology is following (6) Non-compliance Assessment & Plan: recommend counseling and alcohol rehab (7) Oral thrush Assessment & Plan: continue oral nystatin, screening for HIV is negative Subjective Constitutional: Reports: no symptoms HEENT: Reports: no symptoms Respiratory: Reports: no symptoms Breasts: Reports: no symptoms Cardiovascular: Reports: no symptoms Gastrointestinal/Abdominal: Reports: no symptoms Genitourinary: Reports: no symptoms Neurologic: Reports: no symptoms Psychiatric: Reports: no symptoms Skin: Reports: no symptoms Endocrine: Reports: no symptoms Hematologic: Reports: no symptoms Musculoskeletal: Reports: no symptoms Allergies: Coded Allergies: No Known Allergies (Unverified , 02/10/15) Subjective he was more awake and alert, denied ay headache or photophobia , no fever or chills, no cough or SOB, more responsive Objective Vital Signs Last 24 Hour Vital Signs Date Time Temp Pulse Resp B/P (MAP) Pulse Ox O2 Delivery O2 Flow Rate FiO2 08/06/17 14:42 110/80 08/06/17 11:48 99.1 88 18 99/67 92 Room Air 08/06/17 08:28 95 111/73 08/06/17 07:55 98.4 95 20 108/71 91 Room Air 08/06/17 04:00 98.5 90 20 108/71 94 Nasal Cannula 08/06/17 00:02 98.7 90 20 120/72 94 Room Air 08/05/17 20:39 90 120/78 08/05/17 20:13 98.3 90 20 120/78 96 Room Air 08/05/17 17:11 120/77 08/05/17 15:58 96.2 86 20 120/77 97 Room Air Height (Feet): 5 Height (Inches): 8.00 Weight (Pounds): 150 General Appearance: WD/WN, no acute distress HEENT: normocephalic, atraumatic, anicteric, mucous membranes moist Respiratory/Chest: chest wall non-tender, lungs clear, normal breath sounds, no respiratory distress, no accessory muscle use Cardiovascular: normal peripheral pulses, normal rate, regular rhythm, no gallop/murmur, no JVD Abdomen: normal bowel sounds, soft, non tender, no organomegaly, non distended , no mass Extremities: no cyanosis, no clubbing Skin: no rash, no lesions, no ulcers Neurologic/Psychiatric: alert, oriented x 3, responsive Current Medications Medications (Trade) Dose Ordered Sig/Tonny Route PRN Reason Start Time Stop Time Status Last Admin Dose Admin Acetaminophen (Tylenol) 650 mg Q8HR PRN ORAL Mild Pain/Temp > 100.5 08/05/17 22:00 08/30/17 22:59 Amylase/Lipase/ Protease (Pancrease) 3 ea THREE TIMES A DAY ORAL 08/05/17 18:00 09/03/17 12:59 08/06/17 13:37 Ceftriaxone Sodium 2 gm/ Dextrose 55 ml @ 110 mls/hr EVERY 12 HOURS IVPB 08/05/17 21:00 08/08/17 08:59 08/06/17 08:26 Chlordiazepoxide (Librium) 25 mg Q8HR ORAL 08/05/17 22:00 08/07/17 10:29 08/06/17 13:43 Ergocalciferol (Drisdol) 50,000 intlu QWEEK ORAL 08/12/17 11:30 09/04/17 11:29 Folic Acid (Folate) 1 mg DAILY ORAL 08/06/17 09:00 09/04/17 08:59 08/06/17 08:29 Heparin Sodium (Porcine) (Heparin 5000 units/ml) 5,000 units EVERY 12 HOURS SUBQ 08/05/17 21:00 09/02/17 08:59 08/06/17 08:36 Lansoprazole (Prevacid) 30 mg DAILY ORAL 08/06/17 09:00 09/01/17 10:59 08/06/17 08:27 Lorazepam (Ativan 2mg/ml 1ml) 2 mg Q4H PRN IV Agitation seizure 08/05/17 18:00 08/08/17 09:59 Metoprolol Tartrate (Lopressor) 25 mg Q12HR ORAL 08/05/17 21:00 09/04/17 20:59 08/06/17 08:28 Metronidazole 100 ml @ 100 mls/hr Q8H IVPB 08/05/17 15:30 08/12/17 15:29 08/06/17 14:36 Nitroglycerin (Ntg) 1 patch Q24H TDERMAL 08/05/17 15:30 09/02/17 15:29 08/06/17 14:42 Nystatin (Nystatin) 5 ml QID ORAL 08/05/17 18:00 08/08/17 13:59 08/06/17 13:37 Potassium Chloride (K-Dur) 40 meq TWICE A DAY ORAL 08/05/17 18:00 09/04/17 09:29 08/06/17 08:29 Thiamine HCl (Vitamin B1) 100 mg DAILY ORAL 08/06/17 09:00 09/04/17 08:59 08/06/17 08:27 Vancomycin HCl (Vanco rx to dose) 1 ea DAILY PRN MISC Per rx protocol 08/06/17 09:00 08/30/17 22:29 Vancomycin HCl/ Dextrose 250 ml @ 125 mls/hr Q8H IVPB 08/05/17 15:30 08/10/17 15:29 08/06/17 06:33 Lubna Bey M.D. Aug 06, 2017 15:34
[2017-08-06 15:44] VITALS: BP 113/67
[2017-08-06] MEDS ORDERED: Tubing IV Secondary IV ONE ×4 (17:04→17:19)
[2017-08-06] MEDS ORDERED: NS 275ml ONE ×2 (17:04→17:19)
--- NOTE | 2017-08-06 19:35 | General Progress Note ---
Assessment/Plan Assessment/Plan ASSESSMENT AND RECOMMENDATIONS: 1. Tonic-clonic seizure --> continue seizure meds, neuro is on the case --> continue alcohol withdrawal protocol 2. Fever, suspected due to potential infection. Better 3. Alcohol withdrawal seizure. Continue to closely monitor. Educate re cessation 4. Thrombocytopenia, will obtain abdominal ultrasound and complete viral studies. HIV negative, hepatitis negative -> abd US consistent with hepatocellular disease -> plt count normalized now 5. Aspiration pneumonia 6. Oral thrush 7. Anemia, currently mild. Will continue to monitor Subjective Allergies: Coded Allergies: No Known Allergies (Unverified , 02/10/15) All Systems: reviewed and negative except above Subjective wants to go home Objective Last 24 Hour Vital Signs Date Time Temp Pulse Resp B/P (MAP) Pulse Ox O2 Delivery O2 Flow Rate FiO2 08/06/17 15:44 99.3 65 20 113/67 93 Room Air 08/06/17 14:42 110/80 08/06/17 11:48 99.1 88 18 99/67 92 Room Air 08/06/17 08:28 95 111/73 08/06/17 07:55 98.4 95 20 108/71 91 Room Air 08/06/17 04:00 98.5 90 20 108/71 94 Nasal Cannula 08/06/17 00:02 98.7 90 20 120/72 94 Room Air 08/05/17 20:39 90 120/78 08/05/17 20:13 98.3 90 20 120/78 96 Room Air Intake and Output 08/05/17 08/06/17 19:00 07:00 Intake Total 830 ml 600 ml Output Total 850 ml 1000 ml Balance -20 ml -400 ml Intake Oral 830 ml 600 ml Output Urine Total 850 ml 1000 ml # Bowel Movements 1 Height (Feet): 5 Height (Inches): 8.00 Weight (Pounds): 150 General Appearance: no apparent distress EENT: normal ENT inspection Neck: normal alignment Cardiovascular: normal peripheral pulses Extremities: normal range of motion Neurologic: manager system II-XII grossly normal Skin: normal pigmentation Robert Johnston Aug 06, 2017 19:35
--- NOTE | 2017-08-10 13:08 | Discharge Summary ---
Discharge Summary Hospital Course Date of Admission Jul 31, 2017 at 20:03 Date of Discharge Aug 06, 2017 at 17:20 Admitting Diagnosis alcohol withdrawal/seizure HPI Geovanni Brar is a 52 year old male who was admitted on Jul 31, 2017 at 20:03 for Seizure, Alcohol Withdrawal Hospital Course dc summary #[id number] Discharge Discharge Disposition Patient signed AMA Discharge Diagnoses: Discharge Instructions Discharge Instructions Special Instructions I have been assigned to complete a D/C Summary on this account. I was not involved in the patient management Kaitlin Little NP ([facility]anchtein) Aug 10, 2017 13:08
--- NOTE | 2017-08-11 09:30 | Discharge Summary 2 SIG ---
DATE OF ADMISSION: 07/31/2017 DATE OF DISCHARGE: 08/06/2017 REASON FOR ADMISSION: 52-year-old male with a history of seizure disorder, noncompliant with Dilantin and history of alcohol abuse, alcohol abuse with daily consumption, presented with seizure. His friend called paramedics since the patient had a generalized tonic-clonic seizure, lasted less than two minutes. The patient did not recall the event. Upon evaluation in the emergency room, urine tox screen was negative. Serum alcohol - 21. The patient was tachycardic with a heart rate -144. Pulse oximetry was 99% on room air. Low-grade fever -99.1. Airway was patent. The patient was not hypoxic. Noted elevated troponin-0.077. CT of the head revealed no acute intracranial pathology. Follow up troponi -0.088. Troponin with mild elevation likely secondary to tachycardia from alcohol withdrawal. The patient was admitted with alcohol withdrawal seizure and elevated troponin for further management. HOSPITAL COURSE: The patient was admitted. ID, Nephrology, and Neurology consults were requested. CT of the head revealed chronic small vessel white matter ischemic changes and atrophy, but no acute abnormality was found. Neurologist closely evaluated the patient and concluded that the patient had chronic seizure disorder with exacerbation secondary to noncompliance. He loaded the patient with Dilantin and started the patient on IV banana bag with magnesium, folate, multivitamin, and thiamine supplements. The patient was continued on Librium [id number] and Ativan as needed for breakthrough agitation and seizure activity. Troponin started to trend down. The last one- 0.059. It was felt that the patient did not have non-ST elevation myocardial infarction. The patient had no cardiac symptoms, and elevated troponin was likely related to seizure activity or alcohol withdrawal. Osteopathic Physician closely followed the patient for electrolytes abnormalities. Renal parameters and electrolytes were closely monitored. Nephrotoxics were avoided and all electrolytes were corrected. as needed. The patient was on the IV fluids, which was discontinued on the last day prior to the patient signing against medical advice. Abdominal ultrasound revealed cholelithiasis, but was negative for dilated ducte. The liver demonstrated diffusely increased echogenicity consistent with diffuse hepatocellular disease, most likely fatty changes. Lumbar spine x-ray revealed no acute findings and chest x-ray revealed hazy appearance of the bilateral lower lungs,which may reflect mild pulmonary edema versus pneumonia. The patient had leukocytosis on the next day. In conjunction with low-grade fever and tachycardia, it was felt that the patient likely had aspiration pneumonia possibly as a result of the seizures. Anemia workup was consistent with anemia of chronic disease, remained on the baseline. Goal to keep hemoglobin above 7. The patient was clinically improving. Supplemental oxygen and pulmonary toilet provided as needed. Pulse oximetry was stable on the room air. HIV test was negative. Hepatitis panel was negative. Lipid panel was within normal limits. TSH was within normal limits. The patient noted to have oral thrush and started on oral nystatin. Blood cultures were negative. The patient was on empiric Flagyl along with other antibiotics due to the diarrhea. Stool for C. diff was pending to be sent. The patient was kept on seizure precautions. No further seizure. Mental status back to normal. The patient decided to sign against medical advice. The risks and consequences of signing against medical advice were discussed with the patient. The patient verbalized understanding, but signed AMA form and left. FINAL DIAGNOSES: 1. Chronic seizure disorder exacerbation secondary to noncompliance. 2. Alcohol abuse with withdrawal syndrome. 3. Alcohol withdrawal seizure. 4. Altered mental status secondary to seizure. 5. Aspiration pneumonia. 6. Electrolyte abnormality with hyponatremia, hypocalcemia, hypophosphatemia, hypokalemia, and hypomagnesemia. 7. Elevated troponin. 8. Anemia of chronic disease. 9. Diarrhea. 10. Oral thrush. Robert Johnston M.D. I have been assigned to dictate discharge summary on this account and I was not involved in the patient's management. Kaitlin Donohueshannan N.P. DR: CHRISTAL JOB#: [id number] CC: LAN
[2017-08-12] MEDS ORDERED: Vitamin D 50,000 units cap ORAL SCH (11:30)
== END 2017-08-06 17:20 | disposition left against medical advice (07) | DRG 770 ==
LOC: EDBD 14:57 → EMR 15:35 → EDBEDREQ 18:04 → 2W 20:03 → EDBEDREQ 21:15 → 2E 08-01 06:29 → 3E 08-05 14:15
DX: F10.239 Alcohol dependence with withdrawal, unspecified (principal); J69.0 Pneumonitis due to inhalation of food and vomit; B37.0 Candidal stomatitis; E87.1 Hypo-osmolality and hyponatremia; E83.39 Other disorders of phosphorus metabolism; E83.42 Hypomagnesemia; E83.51 Hypocalcemia; G40.909 Epilepsy, unspecified, not intractable, without status epilepticus; R19.7 Diarrhea, unspecified; E86.0 Dehydration; D63.8 Anemia in other chronic diseases classified elsewhere; F17.200 Nicotine dependence, unspecified, uncomplicated; Z91.14 Patient's other noncompliance with medication regimen; R79.89 Other specified abnormal findings of blood chemistry; Z53.21 Procedure and treatment not carried out due to patient leaving prior to being seen by health care provider
CPT/HCPCS: 36415; 70450; 71010; 72020; 76700; 80053; 80061; 80185; 80202; 80307; 80329; 81003; 82607; 82728; 82746; 82977; 83036; 83540; 83550; 83690; 83735; 83880; 84100; 84443; 84484; 84550; 85007; 85025; 86140; 86703; 86705; 86709; 86803; 87040; 87340; 93005; J1165; J8499

== ENCOUNTER 2017-12-19 22:50 | Emergency (ER) | payer OTHER ==
[~2017-12-19] VITALS: Ht 172.7 cm; Wt 65.8 kg
[2017-12-19] MEDS ORDERED: Sodium Chloride 500ML 500 ML IV ONE (23:02)
[2017-12-19] MEDS ORDERED: LORazepam Inj 2mg/ml 1ml IV ONE (23:15)
[2017-12-19] MEDS ORDERED: Phenytoin 500 MG in NS 110 ML IVPB ONE (23:15)
[2017-12-19 23:50] LABS: BASOPHILS % (AUTO) 1.7 % (0.0-2.0); EOSINOPHILS % (AUTO) 1.3 % (0.0-3.0); HEMATOCRIT 41.8 % (42.0-52.0); HEMOGLOBIN 14.4 G/DL (14.2-18.0); LYMPHOCYTES % (AUTO) 16.4 % (20.0-45.0); MEAN CORPUSCULAR VOLUME 96 FL (80-99); MONOCYTES % (AUTO) 14.8 % (1.0-10.0); NEUTROPHILS % (AUTO) 65.9 % (45.0-75.0); PLATELET COUNT 218 K/UL (150-450); RED BLOOD COUNT 4.37 M/UL (4.70-6.10); RED CELL DISTRIBUTION WIDTH 11.3 % (11.6-14.8); WHITE BLOOD COUNT 8.3 K/UL (4.8-10.8)
[2017-12-19 23:55] LABS: ANION GAP 14 mmol/L (5-15); BLOOD UREA NITROGEN 3 mg/dL (7-18); CALCIUM 9.3 MG/DL (8.5-10.1); CARBON DIOXIDE 25 MMOL/L (21-32); CHLORIDE 96 MMOL/L (98-107); CREATININE 1.1 MG/DL (0.55-1.30); POTASSIUM 3.3 MMOL/L (3.5-5.1); SODIUM 135 MMOL/L (136-145)
[2017-12-20] LABS: ALANINE AMINOTRANSFERASE 57 U/L (12-78); ALBUMIN/GLOBULIN RATIO 0.9 (1.0-2.7); ALKALINE PHOSPHATASE 102 U/L (46-116); ASPARTATE AMINO TRANSFERASE 130 U/L (15-37); BILIRUBIN,TOTAL 1.4 MG/DL (0.2-1.0); CREATINE KINASE 118 U/L (26-308)
[2017-12-20 00:23] LABS: CKMB 0.5 NG/ML (0.0-3.6)
[2017-12-20 03:32] VITALS: BP 138/89
--- NOTE | 2017-12-20 03:54 | Emergency Room Report ---
History of Present Illness General Chief Complaint: Seizure Source: Patient Present Illness HPI Patient presents with seizure activity Patient was staying with his girlfriend when he was found to have tonic-clonic seizure patient has had long-standing seizure disorder Is noncompliant with his Dilantin At this time denies any headache denies any chest pain or shortness of breath denies any vomiting or diarrhea Patient does drink alcohol on a daily basis Denies any fevers Allergies: Coded Allergies: No Known Allergies (Unverified , 02/10/15) Patient History Past Medical History: see triage record Pertinent Family History: none Reviewed Nursing Documentation: PMH: Agreed; PSxH: Agreed Nursing Documentation-PMH Past Medical History: No History, Except For Hx Cardiac Problems: No Hx Cancer: No Hx Gastrointestinal Problems: No Hx Neurological Problems: Yes Hx Seizures: Yes Review of Systems All Other Systems: negative except mentioned in HPI Physical Exam Vital Signs Date Time Temp Pulse Resp B/P (MAP) Pulse Ox O2 Delivery O2 Flow Rate FiO2 12/19/17 22:52 98.3 120 18 126/73 98 Room Air 98.2 Sp02 EP Interpretation: reviewed, normal General Appearance: well appearing, no apparent distress Head: normocephalic, atraumatic Eyes: bilateral eye PERRL, bilateral eye EOMI ENT: hearing grossly normal, normal pharynx, TMs + canals normal, uvula midline Neck: full range of motion, supple, no meningismus, no bony tend Respiratory: lungs clear, normal breath sounds, no rhonchi, no respiratory distress, no retraction, no accessory muscle use Cardiovascular #1: normal peripheral pulses, no edema, no gallop, no JVD, no murmur, tachycardia Gastrointestinal: normal bowel sounds, non tender, soft, no mass, no organomegaly, non-distended, no guarding, no hernia, no pulsatile mass, no rebound Genitourinary: no CVA tenderness Musculoskeletal: normal inspection Neurologic: oriented x3, responsive, java security architect III-XII nml as tested, motor strength/ tone normal, sensory intact Psychiatric: mood/affect normal Skin: normal color, no rash, warm/dry, palpation normal Lymphatic: normal inspection, no adenopathy Medical Decision Making Diagnostic Impression: Primary Impression: Seizure disorder ER Course Patient is awake and alert at this time Has had several presentations with breakthrough seizures Patient is appropriate with blood work at baseline levels patient was also provided with Dilantin Patient reports that he is noncompliant however is requesting prescription Patient observed for prolonged period of time in the emergency room continues to be more appropriate Hemodynamically improved with improved heart rate as well And will have close outpatient follow-up Labs Test 12/19/17 23:25 White Blood Count 8.3 K/UL (4.8-10.8) Red Blood Count 4.37 M/UL (4.70-6.10) Hemoglobin 14.4 G/DL (14.2-18.0) Hematocrit 41.8 % (42.0-52.0) Mean Corpuscular Volume 96 FL (80-99) Mean Corpuscular Hemoglobin 32.9 PG (27.0-31.0) Mean Corpuscular Hemoglobin Concent 34.4 G/DL (32.0-36.0) Red Cell Distribution Width 11.3 % (11.6-14.8) Platelet Count 218 K/UL (150-450) Mean Platelet Volume 7.9 FL (6.5-10.1) Neutrophils (%) (Auto) 65.9 % (45.0-75.0) Lymphocytes (%) (Auto) 16.4 % (20.0-45.0) Monocytes (%) (Auto) 14.8 % (1.0-10.0) Eosinophils (%) (Auto) 1.3 % (0.0-3.0) Basophils (%) (Auto) 1.7 % (0.0-2.0) Sodium Level 135 MMOL/L (136-145) Potassium Level 3.3 MMOL/L (3.5-5.1) Chloride Level 96 MMOL/L (98-107) Carbon Dioxide Level 25 MMOL/L (21-32) Anion Gap 14 mmol/L (5-15) Blood Urea Nitrogen 3 mg/dL (7-18) Creatinine 1.1 MG/DL (0.55-1.30) Estimat Glomerular Filtration Rate > 60 mL/min (>60) Glucose Level 136 MG/DL (74-106) Calcium Level 9.3 MG/DL (8.5-10.1) Total Bilirubin 1.4 MG/DL (0.2-1.0) Direct Bilirubin 0.0 MG/DL (0.0-0.3) Aspartate Amino Transf (AST/SGOT) 130 U/L (15-37) Alanine Aminotransferase (ALT/SGPT) 57 U/L (12-78) Alkaline Phosphatase 102 U/L (46-116) Total Creatine Kinase 118 U/L (26-308) Creatine Kinase MB 0.5 NG/ML (0.0-3.6) Creatine Kinase MB Relative Index 0.4 Total Protein 8.6 G/DL (6.4-8.2) Albumin 4.0 G/DL (3.4-5.0) Globulin 4.6 g/dL Albumin/Globulin Ratio 0.9 (1.0-2.7) Lipase 48 U/L (73-393) Urine Opiates Screen Negative (NEGATIVE) Urine Barbiturates Screen Negative (NEGATIVE) Phenytoin (Dilantin) Level 2.5 ug/mL (10-20) Phencyclidine (PCP) Screen Negative (NEGATIVE) Urine Amphetamines Screen Negative (NEGATIVE) Urine Benzodiazepines Screen Negative (NEGATIVE) Urine Cocaine Screen Negative (NEGATIVE) Urine Marijuana (THC) Screen Negative (NEGATIVE) Serum Alcohol < 3 mg/dL Rhythm Strip Diag. Results EP Interpretation: yes Rate: 112 Rhythm: no PVC's, no ectopy, other - sinus tach Chest X-Ray Diagnostic Results Chest X-Ray Diagnostic Results : Chest X-Ray Ordered: Yes # of Views/Limited/Complete: 1 View Indication: Chest Pain EP Interpretation: Yes Interpretation: no consolidation, no effusion, no pneumothorax Impression: No acute disease Electronically Signed by: Marce Jo DO Last Vital Signs Date Time Temp Pulse Resp B/P (MAP) Pulse Ox O2 Delivery O2 Flow Rate FiO2 12/20/17 03:32 98.2 113 18 138/89 98 Room Air 98.2 Status: improved Disposition: HOME, SELF-CARE Condition: Improved Scripts Phenytoin Sodium Extended* (DILANTIN*) 100 Mg Capsule 100 MG ORAL THREE TIMES A DAY, #90 CAP 0 Refills Prov: Marce Jo DO 12/20/17 Referrals: [facility]ERR[facility] (PCP) Additional Instructions: Patient is provided with the discharge instructions notified to follow up with primary doctor in the next 2-3 days otherwise return to the er with any worsening symptoms. Please note that this report is being documented using Pocket Change Card technology. This can lead to erroneous entry secondary to incorrect interpretation by the dictating instrument. Marce Jo DO December 20, 2017 03:54
[2017-12-20] MEDS ORDERED: DILANTIN100 MG ORAL (04:06)
[2017-12-20] MEDS ORDERED: LORazepam Inj 2mg/ml 1ml IV ONE (04:30)
[2017-12-20] MEDS ORDERED: Thiamine 100mg tab ORAL ONE (04:30)
[2017-12-20 07:15] VITALS: BP 113/79
[2017-12-20 08:37] VITALS: BP 113/79
--- NOTE | 2017-12-20 11:40 | Diagnostic Imaging Report ---
Indication: Chest pain Technique: One view of the chest Comparison: 08/04/2017 Findings: Lungs and pleural spaces are clear. Heart size is normal . Previously demonstrated parenchymal opacities are no longer evident Impression: No acute process
--- NOTE | 2017-12-20 14:28 | Cardiology Report ---
APPROVED REPORT EKG Measurement Heart [id number] Sinus tachycardia Biatrial enlargement Rightward axis Cannot rule out Anterior infarct, age undetermined Abnormal ECG
== END 2017-12-20 08:42 | disposition home or self-care (01) ==
LOC: EDUNIT# 22:50 → EDBD 22:50 → EMR 23:05
DX: G40.409 Other generalized epilepsy and epileptic syndromes, not intractable, without status epilepticus (principal)
CPT/HCPCS: 36415; 71045; 80053; 80185; 80307; 80329; 82248; 82550; 82553; 83690; 85025; 93005; 96374; 96375; 99283; J1165; J7040

== ENCOUNTER 2019-02-14 11:10 | Inpatient (IN) | payer OTHER ==
[~2019-02-14] VITALS: Ht 165.1 cm; Wt 74.8 kg
[2019-02-14 11:15] VITALS: BP 128/78
--- NOTE | 2019-02-14 11:18 | NUR ---
ED Nurse Note: seizure precaution pad appplied on both siderails.
--- NOTE | 2019-02-14 11:20 | NUR ---
ED Nurse Note: pt brought in to ER by ambulance from home after having seizure for 60 seconds and witnessed by girlfriend. pt aao x 3-4 and fatigued. skin clean and intact. pt was able to ambulate with assist from gurney to ER bed. pt denied head injury. per pt he was on couch. pt admitted that he drinks alcohol everyday. last drink was last night. pt is gown and on cardiac specialist.
--- NOTE | 2019-02-14 11:25 | NUR ---
ED Nurse Note: pt vomited x 3 yellow and watery vomit.
--- NOTE | 2019-02-14 11:29 | NUR ---
ED Nurse Note: reported ERMD about vomit and tachycardia.
--- NOTE | 2019-02-14 11:35 | NUR ---
ED Nurse Note: ERMD at bedside assessing patient.
--- NOTE | 2019-02-14 11:41 | Emergency Room Report ---
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 No c/p sob. Patient states he has been without his seizure medications, which tends to help, being off his meds aggravates his situation. Allergies: Coded Allergies: No Known Allergies (Unverified , 02/10/15) Nursing Documentation-[facility] Past Medical History: No History, Except For Hx Cardiac Problems: No Hx Cancer: No Hx Gastrointestinal Problems: No History Of Psychiatric Problem: Yes - etoh abuse Hx Neurological Problems: Yes Hx Seizures: Yes Review of Systems Constitutional: Denies: chills, fever Eye: Denies: blurred vision, double vision ENT: Denies: throat pain, nasal discharge Respiratory: Denies: cough, shortness of breath Cardiovascular: Denies: chest pain, palpitations Gastrointestinal: Denies: abdominal pain, diarrhea, nausea, vomiting Genitourinary: Denies: pain Musculoskeletal: Denies: back pain, muscle pain Skin: Denies: rash, lesions Neurological: Reports: seizure; Denies: headache, focal weakness Hematologic/Lymphatic: Denies: easy bleeding, easy bruising All Other Systems: negative except mentioned in HPI Physical Exam Vital Signs Date Time Temp Pulse Resp B/P (MAP) Pulse Ox O2 Delivery O2 Flow Rate FiO2 02/14/19 11:06 99.3 134 18 124/68 (86) 92 Room Air Sp02 EP Interpretation: reviewed, normal General Appearance: well appearing, no apparent distress, alert Head: normocephalic, atraumatic, other - Trauma noted to the head Eyes: bilateral eye PERRL, bilateral eye EOMI ENT: uvula midline, moist mucus membranes, other - Patient with bite loza on the tongue and lips Neck: supple, thyroid normal, supple/symm/no masses Respiratory: lungs clear, no respiratory distress, no retraction, no accessory muscle use Cardiovascular #1: normal peripheral pulses, regular rate, rhythm, no edema, no gallop, no murmur Gastrointestinal: non tender, soft, no guarding, no rebound Musculoskeletal: normal inspection Neurologic: alert, oriented x3 Psychiatric: mood/affect normal Skin: no rash, warm/dry Medical Decision Making Diagnostic Impression: Primary Impression: Seizure disorder Additional Impression: Non-compliance ER Course With acute seizure disorder, patient with acute seizure just prior to arrival, patient given phenytoin loading dose, patient then had a seizure in the ER in which she was given 4 of Ativan which resolved the seizure, patient is currently asymptomatic. Remains persistently tachycardic, will order another bolus, We will admit patient for observation given his 2 seizures, patient was given a loading dose of phenytoin, Patient admitted to Dr. Harris Laboratory Tests Test 02/14/19 11:20 02/14/19 12:30 White Blood Count 13.9 K/UL (4.8-10.8) H Red Blood Count 4.48 M/UL (4.70-6.10) L Hemoglobin 14.9 G/DL (14.2-18.0) Hematocrit 44.8 % (42.0-52.0) Mean Corpuscular Volume 100 FL (80-99) H Mean Corpuscular Hemoglobin 33.1 PG (27.0-31.0) H Mean Corpuscular Hemoglobin Concent 33.2 G/DL (32.0-36.0) Red Cell Distribution Width 13.0 % (11.6-14.8) Platelet Count 188 K/UL (150-450) Mean Platelet Volume 6.9 FL (6.5-10.1) Neutrophils (%) (Auto) 79.2 % (45.0-75.0) H Lymphocytes (%) (Auto) 8.1 % (20.0-45.0) L Monocytes (%) (Auto) 11.6 % (1.0-10.0) H Eosinophils (%) (Auto) 0.1 % (0.0-3.0) Basophils (%) (Auto) 1.0 % (0.0-2.0) Sodium Level 139 MMOL/L (136-145) Potassium Level 3.4 MMOL/L (3.5-5.1) L Chloride Level 98 MMOL/L (98-107) Carbon Dioxide Level 18 MMOL/L (21-32) L Anion Gap 24 mmol/L (5-15) H Blood Urea Nitrogen 3 mg/dL (7-18) L Creatinine 0.9 MG/DL (0.55-1.30) Estimate Glomerular Filtration Rate > 60 mL/min (>60) Glucose Level 124 MG/DL (74-106) H Calcium Level 9.7 MG/DL (8.5-10.1) Total Bilirubin 1.4 MG/DL (0.2-1.0) H Direct Bilirubin 0.5 MG/DL (0.0-0.3) H Aspartate Amino Transferase (AST) 98 U/L (15-37) H Alanine Aminotransferase (ALT) 35 U/L (12-78) Alkaline Phosphatase 130 U/L (46-116) H Total Creatine Kinase 73 U/L (26-308) Creatine Kinase MB 1.0 NG/ML (0.0-3.6) Creatine Kinase MB Relative Index 1.3 Total Protein 9.0 G/DL (6.4-8.2) H Albumin 3.8 G/DL (3.4-5.0) Globulin 5.2 g/dL Albumin/Globulin Ratio 0.7 (1.0-2.7) L Phenytoin (Dilantin) Level < 0.5 ug/mL (10-20) L Urine Color Yellow Urine Appearance Slightly cloudy Urine pH 6 (4.5-8.0) Urine Specific [place] 1.020 (1.005-1.035) Urine Protein 3+ (NEGATIVE) H Urine Glucose (UA) Negative (NEGATIVE) Urine Ketones 3+ (NEGATIVE) H Urine Blood 3+ (NEGATIVE) H Urine Nitrite Negative (NEGATIVE) Urine Bilirubin Negative (NEGATIVE) Urine Urobilinogen 1 MG/DL (0.0-1.0) H Urine Leukocyte Esterase 3+ (NEGATIVE) H Urine RBC 10-15 /HPF (0 - 0) H Urine WBC Tntc /HPF (0 - 0) H Urine Squamous Epithelial Cells Occasional /LPF Urine Bacteria Many /HPF (NONE) H Urine Opiates Screen Negative (NEGATIVE) Urine Barbiturates Screen Negative (NEGATIVE) Phencyclidine (PCP) Screen Negative (NEGATIVE) Urine Amphetamines Screen Negative (NEGATIVE) Urine Benzodiazepines Screen Negative (NEGATIVE) Urine Cocaine Screen Negative (NEGATIVE) Urine Marijuana (THC) Screen Negative (NEGATIVE) EKG Diagnostic Results EKG Time: 11:52 EP Interpretation: Tachycardia, no acute ST elevations, normal axis Rate: tachycardiac Rhythm: other - sinus tachycardia ST Segments: no acute changes Last Vital Signs Date Time Temp Pulse Resp B/P (MAP) Pulse Ox O2 Delivery O2 Flow Rate FiO2 02/14/19 11:15 130 22 Room Air 02/14/19 11:15 99.3 128/78 92 Disposition: ADMITTED INPATIENT Condition: Improved Myron Smith M.D. Feb 14, 2019 11:41
--- NOTE | 2019-02-14 11:52 | NUR ---
ED Nurse Note: pt requested orange juice. per ERMD it is ok for him to drink.
[2019-02-14 11:56] LABS: EOSINOPHILS % (AUTO) 0.1 % (0.0-3.0); HEMATOCRIT 44.8 % (42.0-52.0); HEMOGLOBIN 14.9 G/DL (14.2-18.0); LYMPHOCYTES % (AUTO) 8.1 % (20.0-45.0); MEAN CORPUSCULAR VOLUME 100 FL (80-99); MONOCYTES % (AUTO) 11.6 % (1.0-10.0); NEUTROPHILS % (AUTO) 79.2 % (45.0-75.0); PLATELET COUNT 188 K/UL (150-450); RED BLOOD COUNT 4.48 M/UL (4.70-6.10); WHITE BLOOD COUNT 13.9 K/UL (4.8-10.8)
[2019-02-14 11:58] LABS: ANION GAP 24 mmol/L (5-15); BLOOD UREA NITROGEN 3 mg/dL (7-18); CALCIUM 9.7 MG/DL (8.5-10.1); CARBON DIOXIDE 18 MMOL/L (21-32); CHLORIDE 98 MMOL/L (98-107); CREATININE 0.9 MG/DL (0.55-1.30); POTASSIUM 3.4 MMOL/L (3.5-5.1); SODIUM 139 MMOL/L (136-145)
[2019-02-14 12:12] LABS: ALANINE AMINOTRANSFERASE 35 U/L (12-78); ALBUMIN 3.8 G/DL (3.4-5.0); ALBUMIN/GLOBULIN RATIO 0.7 (1.0-2.7); ALKALINE PHOSPHATASE 130 U/L (46-116); ASPARTATE AMINO TRANSFERASE 98 U/L (15-37); BILIRUBIN,DIRECT 0.5 MG/DL (0.0-0.3); BILIRUBIN,TOTAL 1.4 MG/DL (0.2-1.0); CREATINE KINASE 73 U/L (26-308)
[2019-02-14 12:43] LABS: APPEARANCE,URINE SLIGHTLY CLOUDY; BILIRUBIN, URINE NEGATIVE (NEGATIVE); GLUCOSE, URINE (UA) NEGATIVE (NEGATIVE); KETONES,URINE 3+ (NEGATIVE); LEUKOCYTE ESTERASE ,URINE 3+ (NEGATIVE); NITRITE,URINE NEGATIVE (NEGATIVE); PH,URINE 6 (4.5-8.0); PROTEIN,URINE 3+ (NEGATIVE); UROBILINOGEN,URINE 1 MG/DL (0.0-1.0)
[2019-02-14 12:46] LABS: COLOR,URINE YELLOW
[2019-02-14] MEDS ORDERED: Phenytoin Susp 100mg/4ml ORAL ONE (13:00)
[2019-02-14 13:15] VITALS: BP 134/79
[2019-02-14] MEDS ORDERED: Phenytoin 1,000 MG in NS 275 ML IVPB ONE (13:15)
--- NOTE | 2019-02-14 13:20 | NUR ---
ED Nurse Note: pt pulled out iv line by mistake.
--- NOTE | 2019-02-14 13:58 | NUR ---
ED Nurse Note: pt had a seizure for 60 seconds witnessed by RN and RT. ERMD informed immediately.
[2019-02-14] MEDS ORDERED: LORazepam Inj 2mg/ml 1ml IV ONE ×2 (14:00)
[2019-02-14 15:15] VITALS: BP 138/71
--- NOTE | 2019-02-14 15:52 | NUR ---
ED Nurse Note: report given to ESHA Espinoza
--- NOTE | 2019-02-14 15:54 | NUR ---
logan marino (girlfriend)
--- NOTE | 2019-02-14 16:00 | NUR ---
ED Nurse Note: pt left unit with 1 alarm technician and 1 RN in stable condition.
[2019-02-14 16:09] VITALS: BP 128/83
--- NOTE | 2019-02-14 16:10 | NUR ---
NURSE NOTES: Pt transferred safely from ER to 2E. Belongings list verified. Pt has phone at bedside. monitoring and evaluation advisor applied and pt is sinus tachy @ 120. Pt is very lethargic, alert and oriented x2. No SOB/pain noted. IV site is patent. Respirations are even and unlabored on room air. Seizure precautions in place. Pt is cold and shivering; applied extra blanket. Pt is in stable condition at this time; admission orders in.
[2019-02-14] MEDS ORDERED: LORazepam Inj 2mg/ml 1ml IV PRN (16:15)
--- NOTE | 2019-02-14 16:20 | History and Physical ---
History of Present Illness General Date patient seen: Feb 14, 2019 Reason for Hospitalization: Seizure Present Illness HPI 54 year old male with PMH of seizure disorder (on phenytoin) and ETOH abuse presented s/p seizures, tonic-clonic, unknown length of time, does not recall what happened. Last thing he remembered was sitting on the couch, denies head trauma. Pt states he has not been taking his medications for past few weeks because he ran out and had no refills left. Denies ETOH recently, lives with a friend who takes care of him. Pt denies n/v/c/d, abdominal complaints, chest pain, urinary complaints, falls, headaches, blurry vision, fevers, chills or SOB. Allergies: Coded Allergies: No Known Allergies (Unverified , 02/10/15) Medication History Scheduled Phenytoin Sodium Extended* (Dilantin*), 100 MG ORAL THREE TIMES A DAY, (Reported ) Discontinued Medications Diazepam* (Valium*), 5 MG ORAL BID PRN for Muscle Spasm Discontinued Reason: Pt stopped taking med Ibuprofen* (Motrin*), 600 MG ORAL Q8H PRN for For Pain Discontinued Reason: Pt stopped taking med Phenytoin Sodium Extended* (Dilantin*), 100 MG ORAL THREE TIMES A DAY Discontinued Reason: Pt stopped taking med Patient History History Provided By: Patient Healthcare decision maker Resuscitation status Advanced Directive on File Review of Systems ROS Narrative General ROS:~no weight loss or fever Psychological ROS:~no depression or mood changes, no memory loss Ophthalmic ROS:~no visual changes or eye irritation ENT ROS:~no nasal congestion, hearing loss, dizziness Allergy and Immunology ROS:~no allergic symptoms or urticaria Hematological and Lymphatic ROS:~no swollen glands, unusual bleeding or bruising Endocrine ROS:~no polyuria, polydipsia, weight changes, temperature intolerance Respiratory ROS:~no cough, shortness of breath, or wheezing Cardiovascular ROS:~no chest pain or dyspnea on exertion Gastrointestinal ROS:~no abdominal pain, change in bowel habits, or black or bloody stools~c/o constipation~ Musculoskeletal ROS:~no myalgias or arthralgias Neurological ROS:~no TIA or stroke symptoms Dermatological ROS:~no new or changing skin lesions, rashes or pruritis Physical Exam Last 24 Hour Vital Signs Date Time Temp Pulse Resp B/P (MAP) Pulse Ox O2 Delivery O2 Flow Rate FiO2 02/14/19 16:00 98.6 116 19 133/61 98 Room Air 02/14/19 15:15 98.6 120 22 138/71 98 Nasal Cannula 2.0 02/14/19 13:15 98.9 118 22 134/79 98 Room Air 02/14/19 11:15 130 22 Room Air 02/14/19 11:15 99.3 135 22 128/78 92 Room Air 02/14/19 11:06 99.3 134 18 124/68 (86) 92 Room Air Laboratory Tests Test 02/14/19 11:20 02/14/19 12:30 White Blood Count 13.9 K/UL (4.8-10.8) H Red Blood Count 4.48 M/UL (4.70-6.10) L Hemoglobin 14.9 G/DL (14.2-18.0) Hematocrit 44.8 % (42.0-52.0) Mean Corpuscular Volume 100 FL (80-99) H Mean Corpuscular Hemoglobin 33.1 PG (27.0-31.0) H Mean Corpuscular Hemoglobin Concent 33.2 G/DL (32.0-36.0) Red Cell Distribution Width 13.0 % (11.6-14.8) Platelet Count 188 K/UL (150-450) Mean Platelet Volume 6.9 FL (6.5-10.1) Neutrophils (%) (Auto) 79.2 % (45.0-75.0) H Lymphocytes (%) (Auto) 8.1 % (20.0-45.0) L Monocytes (%) (Auto) 11.6 % (1.0-10.0) H Eosinophils (%) (Auto) 0.1 % (0.0-3.0) Basophils (%) (Auto) 1.0 % (0.0-2.0) Sodium Level 139 MMOL/L (136-145) Potassium Level 3.4 MMOL/L (3.5-5.1) L Chloride Level 98 MMOL/L (98-107) Carbon Dioxide Level 18 MMOL/L (21-32) L Anion Gap 24 mmol/L (5-15) H Blood Urea Nitrogen 3 mg/dL (7-18) L Creatinine 0.9 MG/DL (0.55-1.30) Estimat Glomerular Filtration Rate > 60 mL/min (>60) Glucose Level 124 MG/DL (74-106) H Calcium Level 9.7 MG/DL (8.5-10.1) Total Bilirubin 1.4 MG/DL (0.2-1.0) H Direct Bilirubin 0.5 MG/DL (0.0-0.3) H Aspartate Amino Transf (AST/SGOT) 98 U/L (15-37) H Alanine Aminotransferase (ALT/SGPT) 35 U/L (12-78) Alkaline Phosphatase 130 U/L (46-116) H Total Creatine Kinase 73 U/L (26-308) Creatine Kinase MB 1.0 NG/ML (0.0-3.6) Creatine Kinase MB Relative Index 1.3 Total Protein 9.0 G/DL (6.4-8.2) H Albumin 3.8 G/DL (3.4-5.0) Globulin 5.2 g/dL Albumin/Globulin Ratio 0.7 (1.0-2.7) L Phenytoin (Dilantin) Level < 0.5 ug/mL (10-20) L Urine Color Yellow Urine Appearance Slightly cloudy Urine pH 6 (4.5-8.0) Urine Specific [place] 1.020 (1.005-1.035) Urine Protein 3+ (NEGATIVE) H Urine Glucose (UA) Negative (NEGATIVE) Urine Ketones 3+ (NEGATIVE) H Urine Blood 3+ (NEGATIVE) H Urine Nitrite Negative (NEGATIVE) Urine Bilirubin Negative (NEGATIVE) Urine Urobilinogen 1 MG/DL (0.0-1.0) H Urine Leukocyte Esterase 3+ (NEGATIVE) H Urine RBC 10-15 /HPF (0 - 0) H Urine WBC Tntc /HPF (0 - 0) H Urine Squamous Epithelial Cells Occasional /LPF Urine Bacteria Many /HPF (NONE) H Urine Opiates Screen Negative (NEGATIVE) Urine Barbiturates Screen Negative (NEGATIVE) Phencyclidine (PCP) Screen Negative (NEGATIVE) Urine Amphetamines Screen Negative (NEGATIVE) Urine Benzodiazepines Screen Negative (NEGATIVE) Urine Cocaine Screen Negative (NEGATIVE) Urine Marijuana (THC) Screen Negative (NEGATIVE) Height (Feet): 5 Height (Inches): 8.00 Weight (Pounds): 140 Objective Narrative General appearance:~~alert, cooperative, no distress, appears stated age Head:~~Normocephalic, without obvious abnormality, atraumatic Eyes:~~conjunctivae/corneas clear. PERRL, EOM's intact. Fundi benign Throat:~~Lips, mucosa, and tongue normal. Teeth and gums normal Neck:~~supple, symmetrical, trachea midline, no adenopathy, thyroid: not enlarged, symmetric, no tenderness/mass/nodules, no carotid bruit and no JVD Lungs:~~clear to auscultation bilaterally Heart:~~regular rate and rhythm, S1, S2 normal, no murmur, click, rub or gallop Abdomen:~~soft, non-tender. Bowel sounds normal. No masses, ~no organomegaly Extremities:~~extremities normal, atraumatic, no cyanosis or edema Pulses:~~2+ and symmetric Skin:~~Skin color, texture, turgor normal. No rashes or lesions Neurologic:~~Grossly normal Assessment/Plan Assessment/Plan: 54 year old male with pMH of seizure disorder and etoh abuse admitted for seizures 2/2 non-compliance #Seizures 2/2 noncomplaint with AED -s/p phenytoin load in ed -Cont Phenytoin -Neurology consulted -Ativan PRN for seizures -NPO until cleared by speech -Seizure precautions #Hypokalemia -repleted -CTM Code: Commercial Real Estate Assistant of note does not reflect time of encounter Lyn Cuevas MD Feb 14, 2019 16:20
--- NOTE | 2019-02-14 16:57 | NUR ---
NURSE NOTES: Pt vomited moderate amount of black emesis. Addendum: 02/14/19 at 1701 by Carley Marcelo RN Dr. Cuevas aware. She said she will consult GI.
--- NOTE | 2019-02-14 17:43 | NUR ---
NURSE NOTES: Pt is A+Ox4, but confused at times due to medication. Surinder ordered consent for EGD. Will wait to witness consent until patient is more alert.
--- NOTE | 2019-02-14 17:54 | NUR ---
NURSE NOTES: Healed wound with hyperpigmentation noted on left mid back. Not pressure related.
--- NOTE | 2019-02-14 19:26 | NUR ---
HAND-OFF: Report given to ESHA Dela Cruz. Pt is in stable condition; plan of care endorsed.
--- NOTE | 2019-02-14 19:30 | NUR ---
NURSE NOTES: Received report from Mikala Cabello RN. Patient in bed AAO X3-4 with episodes of confusion. No complaint of acute pain at this time. Kept clean, dry, and comfortable in bed. IV line intact and patent with continuous cardiac monitoring per protocol and tachycardia. Condom catheter in place for incontinence and cleaned in bed PRN if soiled. Noted coffee-ground emesis from the previous morning, will continue for any further episodes noted. Safety and seizure precaution in place; siderails X3 up and padded, call light within reach, bed in lowest position and free from clutter, brakes and alarm on at all times, and suction equipment at bedside. Needs and wants anticipated and attended, will continue plan of care and monitor for any changes noted. NPO after CHRIS Cadena will witness consent signing by patient tomorrow 02/15/19 EEG scheduled tomorrow 02/15/19
[2019-02-14 20:00] VITALS: BP 103/74
[2019-02-14] MEDS: Heparin 5000 units/ml inj SUBQ SCH (20:42)
--- NOTE | 2019-02-14 20:43 | NUR ---
NURSE NOTES: Heparin SQ held d/t coffee ground emesis observed X1 by previous shift, aware. Will await EGD result scheduled for tomorrow 02/15/19. Will continue to monitor
[2019-02-14] MEDS: Phenytoin 100mg cap ORAL SCH (21:19)
[2019-02-14] MEDS: Docusate 100mg cap ORAL SCH (21:19)
--- NOTE | 2019-02-14 22:30 | Neurology Progress Note ---
Interim History Interim History ROS Limited/Unobtainable: No Interim History 54 year old male with PMH of seizure disorder (on phenytoin) and ETOH abuse presented s/p seizures, tonic-clonic, unknown length of time, does not recall what happened. Last thing he remembered was sitting on the couch, denies head trauma. Pt states he has not been taking his medications for past few weeks because he ran out and had no refills left. Denies ETOH recently, lives with a friend who takes care of him. Pt denies n/v/c/d, abdominal complaints, chest pain, urinary complaints, falls, headaches, blurry vision, fevers, chills or SOB. Objective Physical Exam Last Vital Signs Date Time Temp Pulse Resp B/P (MAP) Pulse Ox O2 Delivery O2 Flow Rate FiO2 02/14/19 20:00 98.2 120 22 103/74 (84) 96 02/14/19 16:38 Room Air 02/14/19 15:15 2.0 Laboratory Tests Test 02/14/19 11:20 02/14/19 12:30 02/14/19 18:30 White Blood Count 13.9 K/UL (4.8-10.8) H Red Blood Count 4.48 M/UL (4.70-6.10) L Hemoglobin 14.9 G/DL (14.2-18.0) Hematocrit 44.8 % (42.0-52.0) Mean Corpuscular Volume 100 FL (80-99) H Mean Corpuscular Hemoglobin 33.1 PG (27.0-31.0) H Mean Corpuscular Hemoglobin Concent 33.2 G/DL (32.0-36.0) Red Cell Distribution Width 13.0 % (11.6-14.8) Platelet Count 188 K/UL (150-450) Mean Platelet Volume 6.9 FL (6.5-10.1) Neutrophils (%) (Auto) 79.2 % (45.0-75.0) H Lymphocytes (%) (Auto) 8.1 % (20.0-45.0) L Monocytes (%) (Auto) 11.6 % (1.0-10.0) H Eosinophils (%) (Auto) 0.1 % (0.0-3.0) Basophils (%) (Auto) 1.0 % (0.0-2.0) Sodium Level 139 MMOL/L (136-145) Potassium Level 3.4 MMOL/L (3.5-5.1) L Chloride Level 98 MMOL/L (98-107) Carbon Dioxide Level 18 MMOL/L (21-32) L Anion Gap 24 mmol/L (5-15) H Blood Urea Nitrogen 3 mg/dL (7-18) L Creatinine 0.9 MG/DL (0.55-1.30) Estimat Glomerular Filtration Rate > 60 mL/min (>60) Glucose Level 124 MG/DL (74-106) H Calcium Level 9.7 MG/DL (8.5-10.1) Total Bilirubin 1.4 MG/DL (0.2-1.0) H Direct Bilirubin 0.5 MG/DL (0.0-0.3) H Aspartate Amino Transf (AST/SGOT) 98 U/L (15-37) H Alanine Aminotransferase (ALT/SGPT) 35 U/L (12-78) Alkaline Phosphatase 130 U/L (46-116) H Total Creatine Kinase 73 U/L (26-308) Creatine Kinase MB 1.0 NG/ML (0.0-3.6) Creatine Kinase MB Relative Index 1.3 Total Protein 9.0 G/DL (6.4-8.2) H Albumin 3.8 G/DL (3.4-5.0) Globulin 5.2 g/dL Albumin/Globulin Ratio 0.7 (1.0-2.7) L Lipase 68 U/L (73-393) L Phenytoin (Dilantin) Level < 0.5 ug/mL (10-20) L Urine Color Yellow Urine Appearance Slightly cloudy Urine pH 6 (4.5-8.0) Urine Specific [place] 1.020 (1.005-1.035) Urine Protein 3+ (NEGATIVE) H Urine Glucose (UA) Negative (NEGATIVE) Urine Ketones 3+ (NEGATIVE) H Urine Blood 3+ (NEGATIVE) H Urine Nitrite Negative (NEGATIVE) Urine Bilirubin Negative (NEGATIVE) Urine Urobilinogen 1 MG/DL (0.0-1.0) H Urine Leukocyte Esterase 3+ (NEGATIVE) H Urine RBC 10-15 /HPF (0 - 0) H Urine WBC Tntc /HPF (0 - 0) H Urine Squamous Epithelial Cells Occasional /LPF Urine Bacteria Many /HPF (NONE) H Urine Opiates Screen Negative (NEGATIVE) Urine Barbiturates Screen Negative (NEGATIVE) Phencyclidine (PCP) Screen Negative (NEGATIVE) Urine Amphetamines Screen Negative (NEGATIVE) Urine Benzodiazepines Screen Negative (NEGATIVE) Urine Cocaine Screen Negative (NEGATIVE) Urine Marijuana (THC) Screen Negative (NEGATIVE) Stool Occult Blood Pending General: well developed Head: normocophalic Neck: no rigidity EENT: benign Neurologic Exam Mental Status: awake, alert, oriented x4, normal cognition, good mathematical skills, normal recent memory, normal remote memory, preserved visuospatial function Speech: normal speech, no dysarthia Cranial Nerves III, IV, : PERRLA, EOMI, pupils Motor System: normal muscle tone, strength 5/5, no involuntary movement, no muscle wasting Impression/Recommendations Problems: (1) Episode of confusion (2) Tachycardia (3) Fever (4) Diarrhea (5) Altered mental status (6) Alcohol withdrawal seizure (7) Oral thrush (8) Electrolyte and fluid disorder (9) Aspiration pneumonia (10) Alcohol withdrawal seizure (11) Non-compliance (12) Seizure disorder Status: stable Diagnostic Impression seizure due to non compliance dilantin load cont dilantin 100 mg q8h eeg Myron Estrella MD Feb 14, 2019 22:30
[2019-02-15] VITALS (14 sets, daily range): BP systolic 80–135; BP diastolic 43–95
--- NOTE | 2019-02-15 | NUR ---
NURSE NOTES: Noted patient with coffee-ground emesis X1. Kept HOB elevated at semi fowlers for aspiration precaution. Will continue to monitor. Anticoagulants held.
--- NOTE | 2019-02-15 03:00 | NUR ---
NURSE NOTES: Patient in bed with no complaints of CP or SOB at this time. Observed on surveillance monitor that patient's HR spiked up 170. Obtained EKG strip to confirm. Showed possible anterolateral infarct. MD Kimberly. called and left message of patients current situation. Awaiting call-back MD Faith. called and left message of patients current situation. Awaiting call-back
--- NOTE | 2019-02-15 03:30 | NUR ---
NURSE NOTES: Received call back from Jenny Lloyd MD. Stat trop lvl, Aivan 2mg IV once, and 500ml NS bolus ordered.
[2019-02-15] MEDS ORDERED: LORazepam Inj 2mg/ml 1ml IV ONE (05:30)
--- NOTE | 2019-02-15 06:00 | NUR ---
NURSE NOTES: Patient in bed AAO X3 with no complaints of CP or SOB. HR down to 130-140. Still NPO for EGD procedure today. Will continue to monitor.
--- NOTE | 2019-02-15 06:15 | General Progress Note ---
Assessment/Plan Status: stable Assessment/Plan: Coverage note; received call about tachycardia in 150. admitted for seizure and alcohol withdrawal - requiring ativan. no chest pain. per staff- patient otherwise stable/ BP stable. appears inebriated/confused- withdrawl. rajat get trop I. ekg reviewed by ER MD per staff-no STEMI. plan -will order ativan 2 mg and fluid bolus. wait trop level. rechecked later- patient stable. getting fluid bolus- heart rate not much change. ekg more like sinus tachycardia. continue to monitor- patient no symptoms per staff Later met patient at bedside. wants some juice- states little. denies any chest pain/dyspnea. admits shaking. has tremors.dry mouth. per staff- still coffee ground emesis. hb pending this morning. Heart rate down to 130 now Subjective Allergies: Coded Allergies: No Known Allergies (Unverified , 02/10/15) Objective Last 24 Hour Vital Signs Date Time Temp Pulse Resp B/P (MAP) Pulse Ox O2 Delivery O2 Flow Rate FiO2 02/15/19 00:00 98.6 125 20 109/75 (86) 96 02/14/19 21:00 Room Air 02/14/19 20:00 98.2 120 22 103/74 (84) 96 02/14/19 16:38 Room Air 02/14/19 16:09 98.8 115 20 128/83 (98) 98 02/14/19 16:00 98.6 116 19 133/61 98 Room Air 02/14/19 15:15 98.6 120 22 138/71 98 Nasal Cannula 2.0 02/14/19 13:15 98.9 118 22 134/79 98 Room Air 02/14/19 11:15 130 22 Room Air 02/14/19 11:15 99.3 135 22 128/78 92 Room Air 02/14/19 11:06 99.3 134 18 124/68 (86) 92 Room Air Intake and Output 02/14/19 02/15/19 19:00 07:00 Intake Total 1295 ml Balance 1295 ml Intake Oral 0 ml IV Total 1295 ml # Voids 2 # Bowel Movements 1 1 Laboratory Tests 02/14/19 11:20: White Blood Count 13.9H, Red Blood Count 4.48L, Hemoglobin 14.9, Hematocrit 44.8 , Mean Corpuscular Volume 100H, Mean Corpuscular Hemoglobin 33.1H, Mean Corpuscular Hemoglobin Concent 33.2, Red Cell Distribution Width 13.0, Platelet Count 188, Mean Platelet Volume 6.9, Neutrophils (%) (Auto) 79.2H, Lymphocytes ( %) (Auto) 8.1L, Monocytes (%) (Auto) 11.6H, Eosinophils (%) (Auto) 0.1, Basophils (%) (Auto) 1.0, Sodium Level 139, Potassium Level 3.4L, Chloride Level 98, Carbon Dioxide Level 18L, Anion Gap 24H, Blood Urea Nitrogen 3L, Creatinine 0.9, Estimat Glomerular Filtration Rate > 60, Glucose Level 124H, Calcium Level 9.7, Total Bilirubin 1.4H, Direct Bilirubin 0.5H, Aspartate Amino Transf (AST/SGOT) 98H, Alanine Aminotransferase (ALT/SGPT) 35, Alkaline Phosphatase 130H, Total Creatine Kinase 73, Creatine Kinase MB 1.0, Creatine Kinase MB Relative Index 1.3, Total Protein 9.0H, Albumin 3.8, Globulin 5.2, Albumin/Globulin Ratio 0.7L, Lipase 68L, Phenytoin (Dilantin) Level < 0.5L 02/14/19 12:30: Urine Color Yellow, Urine Appearance Slightly cloudy, Urine pH 6, Urine Specific [place] 1.020, Urine Protein 3+H, Urine Glucose (UA) Negative, Urine Ketones 3+H, Urine Blood 3+H, Urine Nitrite Negative, Urine Bilirubin Negative, Urine Urobilinogen 1H, Urine Leukocyte Esterase 3+H, Urine RBC 10-15H, Urine WBC TntcH, Urine Squamous Epithelial Cells Occasional, Urine Bacteria ManyH, Urine Opiates Screen Negative, Urine Barbiturates Screen Negative, Phencyclidine (PCP) Screen Negative, Urine Amphetamines Screen Negative, Urine Benzodiazepines Screen Negative, Urine Cocaine Screen Negative, Urine Marijuana (THC) Screen Negative 02/14/19 18:30: Stool Occult Blood [Pending] Height (Feet): 5 Height (Inches): 8.00 Weight (Pounds): 130 David Lloyd MD Feb 15, 2019 06:15
[2019-02-15] MEDS: Phenytoin 100mg cap ORAL SCH ×4 (06:16→22:59)
--- NOTE | 2019-02-15 07:00 | NUR ---
NURSE NOTES: Pt seen by Jenny Melara MD. new orders received and carried out. Continue plan of care
[2019-02-15 07:03] LABS: INR 1.3 (0.9-1.1)
[2019-02-15 07:26] LABS: HEMATOCRIT 40.7 % (42.0-52.0); HEMOGLOBIN 13.9 G/DL (14.2-18.0); MEAN CORPUSCULAR VOLUME 99 FL (80-99); PLATELET COUNT 130 K/UL (150-450); RED BLOOD COUNT 4.13 M/UL (4.70-6.10)
[2019-02-15 07:32] LABS: ANION GAP 17 mmol/L (5-15); BLOOD UREA NITROGEN 8 mg/dL (7-18); CALCIUM 8.9 MG/DL (8.5-10.1); CARBON DIOXIDE 20 MMOL/L (21-32); CHLORIDE 105 MMOL/L (98-107); CREATINE KINASE 90 U/L (26-308); CREATININE 1.1 MG/DL (0.55-1.30); PHOSPHORUS 2.2 MG/DL (2.5-4.9); POTASSIUM 3.1 MMOL/L (3.5-5.1); SODIUM 141 MMOL/L (136-145)
--- NOTE | 2019-02-15 07:34 | NUR ---
HAND-OFF: Report given to Kamilah Moran RN. Patient in bed with no S/S of distress. Endorsed plan of care.
--- NOTE | 2019-02-15 07:35 | NUR ---
NURSE NOTES: Received patient in bed. In no apparent distress. On nasal cannula at 2LPM. With IVF running of NS at 75cc/hour. Kept NPO for EGD. Will continue plan of care.
[2019-02-15 07:37] LABS: WHITE BLOOD COUNT 27.5 K/UL (4.8-10.8)
[2019-02-15] MEDS: Heparin 5000 units/ml inj SUBQ SCH (08:30)
[2019-02-15] MEDS: Docusate 100mg cap ORAL SCH (08:30)
--- NOTE | 2019-02-15 10:42 | GI Initial Consult Note ---
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 No c/p sob. Patient states he has been without his seizure medications, which tends to help, being off his meds aggravates his situation. Patient seen, awake alert oriented no apparent distress. Reported that patient had an episode of coffee-ground emesis last night. In addition, reported by the RN the patient had dark tarry stools this morning. Patient presents with recurrent seizures. Currently with a white count of 28, hemoglobin of 13.9, electrolyte imbalance and elevated LFTs. No known history of endoscopic colonoscopy. Home Meds Reported Medications Phenytoin Sodium Extended* (DILANTIN*) 100 Mg Capsule, 100 MG ORAL THREE TIMES A DAY, #90 CAP 0 Refills 10/02/16 Discontinued Scripts Phenytoin Sodium Extended* (DILANTIN*) 100 Mg Capsule, 100 MG ORAL THREE TIMES A DAY, #90 CAP 0 Refills Prov:Marce Jo DO 12/20/17 Ibuprofen* (MOTRIN*) 600 Mg Tablet, 600 MG ORAL Q8H PRN for For Pain, #30 TAB 0 Refills Prov:SHRUTHI SCOTT M.D. 02/10/15 Diazepam* (VALIUM*) 5 Mg Tablet, 5 MG ORAL BID PRN for Muscle Spasm, #10 TAB 0 Refills Prov:SHRUTHI SCOTT M.D. 02/10/15 Med list reviewed/reconciled: Yes Allergies: Coded Allergies: No Known Allergies (Unverified , 02/10/15) Patient History History Provided By: Patient, Medical Record PMH Narrative Past Medical History: No History, Except For Hx Cardiac Problems: No Hx Cancer: No Hx Gastrointestinal Problems: No History Of Psychiatric Problem: Yes - etoh abuse Hx Neurological Problems: Yes Hx Seizures: Yes Social History: Denies: smoking, alcohol use, drug use, other Review of Systems All Other Systems: negative except mentioned in HPI Physical Exam Vital Signs Date Time Temp Pulse Resp B/P (MAP) Pulse Ox O2 Delivery O2 Flow Rate FiO2 02/14/19 11:06 99.3 134 18 124/68 (86) 92 Room Air 02/14/19 15:15 2.0 Sp02 EP Interpretation: reviewed, normal Labs Laboratory Tests Test 02/14/19 11:20 02/14/19 12:30 02/14/19 18:30 02/15/19 06:09 White Blood Count 13.9 K/UL (4.8-10.8) H 27.5 K/UL (4.8-10.8) #*H Red Blood Count 4.48 M/UL (4.70-6.10) L 4.13 M/UL (4.70-6.10) L Hemoglobin 14.9 G/DL (14.2-18.0) 13.9 G/DL (14.2-18.0) L Hematocrit 44.8 % (42.0-52.0) 40.7 % (42.0-52.0) L Mean Corpuscular Volume 100 FL (80-99) H 99 FL (80-99) Mean Corpuscular Hemoglobin 33.1 PG (27.0-31.0) H 33.7 PG (27.0-31.0) H Mean Corpuscular Hemoglobin Concent 33.2 G/DL (32.0-36.0) 34.2 G/DL (32.0-36.0) Red Cell Distribution Width 13.0 % (11.6-14.8) 13.0 % (11.6-14.8) Platelet Count 188 K/UL (150-450) 130 K/UL (150-450) L Mean Platelet Volume 6.9 FL (6.5-10.1) 7.7 FL (6.5-10.1) Neutrophils (%) (Auto) 79.2 % (45.0-75.0) H % (45.0-75.0) Lymphocytes (%) (Auto) 8.1 % (20.0-45.0) L % (20.0-45.0) Monocytes (%) (Auto) 11.6 % (1.0-10.0) H % (1.0-10.0) Eosinophils (%) (Auto) 0.1 % (0.0-3.0) % (0.0-3.0) Basophils (%) (Auto) 1.0 % (0.0-2.0) % (0.0-2.0) Sodium Level 139 MMOL/L (136-145) 141 MMOL/L (136-145) Potassium Level 3.4 MMOL/L (3.5-5.1) L 3.1 MMOL/L (3.5-5.1) L Chloride Level 98 MMOL/L (98-107) 105 MMOL/L (98-107) Carbon Dioxide Level 18 MMOL/L (21-32) L 20 MMOL/L (21-32) L Anion Gap 24 mmol/L (5-15) H 17 mmol/L (5-15) H Blood Urea Nitrogen 3 mg/dL (7-18) L 8 mg/dL (7-18) Creatinine 0.9 MG/DL (0.55-1.30) 1.1 MG/DL (0.55-1.30) Estimat Glomerular Filtration Rate > 60 mL/min (>60) > 60 mL/min (>60) Glucose Level 124 MG/DL (74-106) H 108 MG/DL (74-106) H Calcium Level 9.7 MG/DL (8.5-10.1) 8.9 MG/DL (8.5-10.1) Total Bilirubin 1.4 MG/DL (0.2-1.0) H Direct Bilirubin 0.5 MG/DL (0.0-0.3) H Aspartate Amino Transf (AST/SGOT) 98 U/L (15-37) H Alanine Aminotransferase (ALT/SGPT) 35 U/L (12-78) Alkaline Phosphatase 130 U/L (46-116) H Total Creatine Kinase 73 U/L (26-308) 90 U/L (26-308) Creatine Kinase MB 1.0 NG/ML (0.0-3.6) Creatine Kinase MB Relative Index 1.3 Total Protein 9.0 G/DL (6.4-8.2) H Albumin 3.8 G/DL (3.4-5.0) Globulin 5.2 g/dL Albumin/Globulin Ratio 0.7 (1.0-2.7) L Lipase 68 U/L (73-393) L Phenytoin (Dilantin) Level < 0.5 ug/mL (10-20) L Urine Color Yellow Urine Appearance Slightly cloudy Urine pH 6 (4.5-8.0) Urine Specific [place] 1.020 (1.005-1.035) Urine Protein 3+ (NEGATIVE) H Urine Glucose (UA) Negative (NEGATIVE) Urine Ketones 3+ (NEGATIVE) H Urine Blood 3+ (NEGATIVE) H Urine Nitrite Negative (NEGATIVE) Urine Bilirubin Negative (NEGATIVE) Urine Urobilinogen 1 MG/DL (0.0-1.0) H Urine Leukocyte Esterase 3+ (NEGATIVE) H Urine RBC 10-15 /HPF (0 - 0) H Urine WBC Tntc /HPF (0 - 0) H Urine Squamous Epithelial Cells Occasional /LPF Urine Bacteria Many /HPF (NONE) H Urine Opiates Screen Negative (NEGATIVE) Urine Barbiturates Screen Negative (NEGATIVE) Phencyclidine (PCP) Screen Negative (NEGATIVE) Urine Amphetamines Screen Negative (NEGATIVE) Urine Benzodiazepines Screen Negative (NEGATIVE) Urine Cocaine Screen Negative (NEGATIVE) Urine Marijuana (THC) Screen Negative (NEGATIVE) Stool Occult Blood Pending Differential Total Cells Counted 100 Neutrophils % (Manual) 83 % (45-75) H Lymphocytes % (Manual) 2 % (20-45) L Monocytes % (Manual) 6 % (1-10) Eosinophils % (Manual) 1 % (0-3) Basophils % (Manual) 0 % (0-2) Band Neutrophils 8 % (0-8) Platelet Estimate Decreased L Platelet Morphology Normal Red Blood Cell Morphology Normal Prothrombin Time 13.8 SEC (9.30-11.50) H Prothromb Time International Ratio 1.3 (0.9-1.1) H Activated Partial Thromboplast Time 32 SEC (23-33) Phosphorus Level 2.2 MG/DL (2.5-4.9) L Magnesium Level 1.4 MG/DL (1.8-2.4) L Troponin I 0.014 ng/mL (0.000-0.056) General Appearance: well appearing, no apparent distress, alert Head: normocephalic EENT: PERRL/EOMI, normal ENT inspection Neck: supple Respiratory: normal breath sounds, no respiratory distress Cardiovascular: normal rate Gastrointestinal: normal inspection, non tender, soft, normal bowel sounds, non -distended Rectal: deferred Genitourinary: deferred Musculoskeletal: normal inspection, back normal Neurologic: normal inspection, alert, oriented x3, responsive Psychiatric: normal inspection, judgement/insight normal, memory normal Skin: normal inspection, normal color, no rash, warm/dry, palpation normal, well hydrated Lymphatic: normal inspection, no adenopathy Current Medications Current Medications Medications (Trade) Dose Ordered Sig/Tonny Route PRN Reason Start Time Stop Time Status Last Admin Dose Admin Acetaminophen (Tylenol) 650 mg Q4H PRN ORAL Mild Pain (Pain Scale 1-3) 02/14/19 16:21 03/16/19 16:20 02/15/19 09:12 Bisacodyl (Dulcolax) 10 mg HSPRN PRN RECTAL Constipation 02/14/19 16:15 03/16/19 16:14 Dextrose (Dextrose 50%) 25 ml Q30M PRN IV Hypoglycemia 02/14/19 16:15 03/16/19 16:14 Dextrose (Dextrose 50%) 50 ml Q30M PRN IV Hypoglycemia 02/14/19 16:15 03/16/19 16:14 Diphenhydramine HCl (Benadryl) 25 mg Q6H PRN ORAL Itching/Pruritis 02/14/19 16:21 03/16/19 16:20 Docusate Sodium (Colace) 100 mg EVERY 12 HOURS ORAL 02/14/19 21:00 03/16/19 20:59 02/15/19 08:30 Heparin Sodium (Porcine) (Heparin 5000 units/ml) 5,000 units EVERY 12 HOURS SUBQ 02/14/19 21:00 03/16/19 20:59 Lorazepam (Ativan 2mg/ml 1ml) 1 mg Q4H PRN IV For Seizures 02/14/19 16:15 02/21/19 16:14 Magnesium Sulfate 100 ml @ 100 mls/hr Q1H IVPB 02/15/19 09:30 02/15/19 11:29 02/15/19 09:38 Ondansetron HCl (Zofran) 4 mg Q6H PRN IVP Nausea & Vomiting 02/14/19 16:15 03/16/19 16:14 02/15/19 02:25 Phenytoin (Dilantin) 100 mg Q8HR ORAL 02/14/19 22:00 03/16/19 21:59 02/15/19 06:16 Potassium Phosphate 30 mm/ Sodium Chloride 285 ml @ 47.5 mls/hr ONCE ONCE IV 02/15/19 11:00 02/15/19 16:59 Sodium Chloride 1,000 ml @ 75 mls/hr [id number] IVLG 02/14/19 16:21 03/16/19 16:20 02/15/19 06:19 GI: Plan Problems: (1) Coffee ground emesis (2) Episode of confusion (3) Alcohol withdrawal seizure (4) Electrolyte and fluid disorder (5) Non-compliance Plan plan for EGD when stable maintain NPO Follow-up ID recommendations given leukocytosis anemia work up OB stool r/o GI bleed monitor H&H, prn transfusions bowel regimen IV hydration plus electrolyte correction ppi fu labs Discussed with Dr. Bloom. Thank you for this patient referral, we will follow. The patient was seen and examined at bedside and all new and available data was reviewed in the patients chart. I agree with the above findings, impression and plan. (Patient seen earlier today. Signature stamp does not reflect patient encounter time.). - MD Marcella MaysBannerAlfredoSurinder GUNNER MATE Feb 15, 2019 10:42
[2019-02-15] MEDS ORDERED: Potassium Phosphate 30 MM in NS 275 ML IV ONE (11:00)
[2019-02-15] MEDS ORDERED: Vancomycin 1gm/D5W 275ml IVPB ONE ×2 (12:00)
--- NOTE | 2019-02-15 12:20 | NUR ---
TRANSFER TO FLOOR: Patient transferred to SDU room 242-2, per Dr. Cuevas. Report given to Wisam Squires RN. Belongings and medications given to Wisam Squires RN. Patient remians on nasal cannula at 2LPM.
--- NOTE | 2019-02-15 12:41 | Infectious Diseases Prog Note ---
Assessment/Plan Assessment/Plan Ful consult to follow: A) 1) sepsis, sirs, leukocytosis, fevers, elevated lactic acid 2) GIB 3) gram neg uti/pyelonephritis 4) allergies - nkda P) 1) vancomycin and zosyn 2) check cultures, labs, imaging 3) GI f/u 4 thank you Subjective Allergies: Coded Allergies: No Known Allergies (Unverified , 02/10/15) Objective Vital Signs Last 24 Hour Vital Signs Date Time Temp Pulse Resp B/P (MAP) Pulse Ox O2 Delivery O2 Flow Rate FiO2 02/15/19 12:15 96/61 (73) 02/15/19 11:30 98.7 132 18 86/62 (70) 96 02/15/19 09:00 Room Air 02/15/19 08:00 100.4 144 18 92/68 (76) 96 02/15/19 07:26 146 02/15/19 04:00 98.5 131 20 135/77 (96) 98 02/15/19 04:00 142 02/15/19 00:00 128 02/15/19 00:00 98.6 125 20 109/75 (86) 96 02/14/19 21:00 Room Air 02/14/19 20:00 137 02/14/19 20:00 98.2 120 22 103/74 (84) 96 02/14/19 16:38 Room Air 02/14/19 16:09 98.8 115 20 128/83 (98) 98 02/14/19 16:00 98.6 116 19 133/61 98 Room Air 02/14/19 15:15 98.6 120 22 138/71 98 Nasal Cannula 2.0 02/14/19 13:15 98.9 118 22 134/79 98 Room Air Height (Feet): 5 Height (Inches): 5.00 Weight (Pounds): 130 Microbiology Date/Time Source Procedure Growth Status 02/14/19 12:30 Urine,Clean Catch Urine Culture - Preliminary Gram Negative Bacillus 1 Resulted Laboratory Tests Test 02/14/19 18:30 02/15/19 06:09 02/15/19 11:15 Stool Occult Blood Pending White Blood Count 27.5 K/UL (4.8-10.8) #*H Red Blood Count 4.13 M/UL (4.70-6.10) L Hemoglobin 13.9 G/DL (14.2-18.0) L Hematocrit 40.7 % (42.0-52.0) L Mean Corpuscular Volume 99 FL (80-99) Mean Corpuscular Hemoglobin 33.7 PG (27.0-31.0) H Mean Corpuscular Hemoglobin Concent 34.2 G/DL (32.0-36.0) Red Cell Distribution Width 13.0 % (11.6-14.8) Platelet Count 130 K/UL (150-450) L Mean Platelet Volume 7.7 FL (6.5-10.1) Neutrophils (%) (Auto) % (45.0-75.0) Lymphocytes (%) (Auto) % (20.0-45.0) Monocytes (%) (Auto) % (1.0-10.0) Eosinophils (%) (Auto) % (0.0-3.0) Basophils (%) (Auto) % (0.0-2.0) Differential Total Cells Counted 100 Neutrophils % (Manual) 83 % (45-75) H Lymphocytes % (Manual) 2 % (20-45) L Monocytes % (Manual) 6 % (1-10) Eosinophils % (Manual) 1 % (0-3) Basophils % (Manual) 0 % (0-2) Band Neutrophils 8 % (0-8) Platelet Estimate Decreased L Platelet Morphology Normal Red Blood Cell Morphology Normal Prothrombin Time 13.8 SEC (9.30-11.50) H Prothromb Time International Ratio 1.3 (0.9-1.1) H Activated Partial Thromboplast Time 32 SEC (23-33) Sodium Level 141 MMOL/L (136-145) Potassium Level 3.1 MMOL/L (3.5-5.1) L Chloride Level 105 MMOL/L (98-107) Carbon Dioxide Level 20 MMOL/L (21-32) L Anion Gap 17 mmol/L (5-15) H Blood Urea Nitrogen 8 mg/dL (7-18) Creatinine 1.1 MG/DL (0.55-1.30) Estimat Glomerular Filtration Rate > 60 mL/min (>60) Glucose Level 108 MG/DL (74-106) H Calcium Level 8.9 MG/DL (8.5-10.1) Phosphorus Level 2.2 MG/DL (2.5-4.9) L Magnesium Level 1.4 MG/DL (1.8-2.4) L Total Creatine Kinase 90 U/L (26-308) Troponin I 0.014 ng/mL (0.000-0.056) Lactic Acid Level 7.90 mmol/L (0.4-2.0) H Current Medications Medications (Trade) Dose Ordered Sig/Tonny Route PRN Reason Start Time Stop Time Status Last Admin Dose Admin Acetaminophen (Tylenol) 650 mg Q4H PRN ORAL Mild Pain (Pain Scale 1-3) 02/15/19 12:30 03/16/19 12:29 Bisacodyl (Dulcolax) 10 mg HSPRN PRN RECTAL Constipation 02/15/19 21:00 03/16/19 20:59 Dextrose (Dextrose 50%) 25 ml Q30M PRN IV Hypoglycemia 02/15/19 12:45 03/16/19 16:14 Dextrose (Dextrose 50%) 50 ml Q30M PRN IV Hypoglycemia 02/15/19 12:45 03/16/19 16:14 Diphenhydramine HCl (Benadryl) 25 mg Q6H PRN ORAL Itching/Pruritis 02/15/19 13:00 03/16/19 12:59 Docusate Sodium (Colace) 100 mg EVERY 12 HOURS ORAL 02/15/19 21:00 03/16/19 20:59 Heparin Sodium (Porcine) (Heparin 5000 units/ml) 5,000 units EVERY 12 HOURS SUBQ 02/15/19 21:00 03/16/19 20:59 Lorazepam (Ativan 2mg/ml 1ml) 1 mg Q4H PRN IV For Seizures 02/15/19 13:00 02/21/19 12:59 Ondansetron HCl (Zofran) 4 mg Q6H PRN IVP Nausea & Vomiting 02/15/19 13:00 03/16/19 12:59 Phenytoin (Dilantin) 100 mg Q8HR ORAL 02/15/19 14:00 03/16/19 21:59 Piperacillin Sod/ Tazobactam Sod 3.375 gm/Sodium Chloride 110 ml @ 27.5 mls/hr EVERY 8 HOURS IVPB 02/15/19 14:00 02/20/19 13:59 Sodium Chloride 1,000 ml @ 75 mls/hr [id number] IVLG 02/15/19 12:30 03/17/19 12:29 Vancomycin HCl (Vanco rx to dose) 1 ea DAILY PRN MISC Per rx protocol 02/15/19 13:00 03/17/19 12:59 Vancomycin HCl 750 mg/Sodium Chloride 275 ml @ 183.333 mls/hr Q12H IVPB 02/16/19 00:00 02/21/19 00:00 Vancomycin HCl 1 gm/Dextrose 275 ml @ 183.708 mls/hr ONCE ONCE IVPB 02/16/19 12:00 02/16/19 13:29 Barry Plummer MD Feb 15, 2019 12:41
--- NOTE | 2019-02-15 12:42 | NUR ---
CASE MANAGEMENT: INITIAL REVIEW 54 YO M BIB [facility] CC: SZ PMHx: SZ. ETOH ABUSE. SI:RECURRENT SZ. GRAM NEG LUIS UTI. T 99.3 HR 134 RR 18 B/P 124/68 SATS 92% ON RA WBC 13.9 K 3.4 CO2 18 BUN 3 GLU 124 TBILI 1.4 DBILI 0.5 AST 98 ALP 130 LIPASE 68 PHENYTOIN <0.5 IS: NS BOLUS X2 PHENYTOIN PO X2 ATIVAN IV X2 PATIENT ADMITTED TO [facility] 02/14/2019 @ 1610 DCP: PATIENT TO BE DISCHARGED TO HOME ONCE MEDICALLY CLEARED 02/15/2019 SI:RECURRENT SZ. GRAM NEG LUIS UTI. T 100.4 HR 144 RR 18 B//P 92/68 SATS 96% ON RA WBC 27.5 K 3.1 CO2 20 GLU 108 LACTIC ACID 7.9 PHOS 2.2 MG 1.4 IS: IVF @ 75 mL/HR ZOSYN IV Q8H VANCO IV Q12H DILANTIN PO Q8H SDU DCP: PATIENT TO BE DISCHARGED TO HOME ONCE MEDICALLY CLEARED PLAN OF CARE: TRANSFER TO SDU Addendum: 02/16/19 at 0822 by Lisa Rivers CM [facility]
--- NOTE | 2019-02-15 12:53 | NUR ---
INSURANCE NO B/AR INDICATION WHERE TO FAX CLINICALS OR REVIEWS AT THIS TIME.
[2019-02-15] MEDS ORDERED: Vancomycin 1 GM in D5W 275 ML IVPB ONE ×4 (13:00)
[2019-02-15] MEDS ORDERED: LORazepam Inj 2mg/ml 1ml IV PRN (13:00)
[2019-02-15] MEDS: Piperacillin/Tazobactam 3.375 GM in NS 110 ML IVPB SCH ×3 (13:46→22:22)
[2019-02-15] MEDS ORDERED: Piperacillin/Tazobactam 3.375 GM in NS 110 ML IVPB SCH (14:00)
--- NOTE | 2019-02-15 14:10 | Consultation ---
History of Present Illness General Reason for Hospitalization: Seizure Present Illness HPI This is a pleasant 54-year-old male with known history of seizures who presented to [facility] after having a seizure. Patient noncompliant with medications states that he ran out a little while ago and has not been taking them for over 2 weeks. Patient states that he has abdominal discomfort at times intermittent nausea and had coffee-ground emesis recently. Per report patient noted to have dark maroon-colored stools as well this morning. Patient identified to have a worsening leukocytosis, anemia, lactic acidosis. Surgery called to evaluate and assist with care. Patient seen, patient [place], chart reviewed. Currently patient in monitored unit undergoing work-up. States he feels well and is thirsty. Does not have any current complaints. Allergies: Coded Allergies: No Known Allergies (Unverified , 02/10/15) Medication History Scheduled Phenytoin Sodium Extended* (Dilantin*), 100 MG ORAL THREE TIMES A DAY, (Reported ) Discontinued Medications Diazepam* (Valium*), 5 MG ORAL BID PRN for Muscle Spasm Discontinued Reason: Pt stopped taking med Ibuprofen* (Motrin*), 600 MG ORAL Q8H PRN for For Pain Discontinued Reason: Pt stopped taking med Phenytoin Sodium Extended* (Dilantin*), 100 MG ORAL THREE TIMES A DAY Discontinued Reason: Pt stopped taking med Patient History History Provided By: Patient, Medical Record, PMD Healthcare decision maker Resuscitation status Full Code Advanced Directive on File No Past Medical/Surgical History Past Medical/Surgical History: (1) Non-compliance (2) Electrolyte and fluid disorder (3) Fever (4) Oral thrush (5) Diarrhea (6) Aspiration pneumonia (7) Seizure disorder (8) Tachycardia (9) Altered mental status (10) Alcohol withdrawal seizure (11) Alcohol withdrawal seizure (12) Episode of confusion (13) Coffee ground emesis Review of Systems Review of Symptoms General ROS: no weight loss or fever Psychological ROS: no depression or mood changes, no memory loss Ophthalmic ROS: no visual changes or eye irritation ENT ROS: no nasal congestion, hearing loss, dizziness Allergy and Immunology ROS: no allergic symptoms or urticaria Hematological and Lymphatic ROS: no swollen glands, unusual bleeding or bruising Endocrine ROS: no polyuria, polydipsia, weight changes, temperature intolerance Respiratory ROS: no cough, shortness of breath, or wheezing Cardiovascular ROS: no chest pain or dyspnea on exertion Gastrointestinal ROS: abdominal pain, no bright red blood in stool. Musculoskeletal ROS: no myalgias or arthralgias Neurological ROS: no TIA or stroke symptoms Dermatological ROS: no new or changing skin lesions, rashes or pruritis Physical Exam Physical Exam General appearance: alert, cooperative, no distress, appears stated age Head: Normocephalic, without obvious abnormality, atraumatic Eyes: conjunctivae/corneas clear. PERRL, EOM's intact. Fundi benign Throat: Lips, mucosa, and tongue normal. Teeth and gums normal Neck: supple, symmetrical, trachea midline, no adenopathy, thyroid: not enlarged, symmetric, no tenderness/mass/nodules, no carotid bruit and no JVD Lungs: clear to auscultation bilaterally Heart: regular rate and rhythm, S1, S2 normal, no murmur, click, rub or gallop Abdomen: soft, non-tender. Bowel sounds normal. No masses, no organomegaly Extremities: extremities normal, atraumatic, no cyanosis or edema Pulses: 2+ and symmetric Skin: Skin color, texture, turgor normal. No rashes or lesions Neurologic: Grossly normal Last 24 Hour Vital Signs Date Time Temp Pulse Resp B/P (MAP) Pulse Ox O2 Delivery O2 Flow Rate FiO2 02/15/19 12:15 96/61 (73) 02/15/19 11:30 98.7 132 18 86/62 (70) 96 02/15/19 09:00 Room Air 02/15/19 08:00 100.4 144 18 92/68 (76) 96 02/15/19 07:26 146 02/15/19 04:00 98.5 131 20 135/77 (96) 98 02/15/19 04:00 142 02/15/19 00:00 128 02/15/19 00:00 98.6 125 20 109/75 (86) 96 02/14/19 21:00 Room Air 02/14/19 20:00 137 02/14/19 20:00 98.2 120 22 103/74 (84) 96 02/14/19 16:38 Room Air 02/14/19 16:09 98.8 115 20 128/83 (98) 98 02/14/19 16:00 98.6 116 19 133/61 98 Room Air 02/14/19 15:15 98.6 120 22 138/71 98 Nasal Cannula 2.0 Intake and Output 02/14/19 02/15/19 19:00 07:00 Intake Total 1295 ml Output Total 602 ml Balance 1295 ml -602 ml Intake Oral 0 ml IV Total 1295 ml Output Urine Total 600 ml Emesis 2 ml # Voids 2 # Bowel Movements 1 1 Laboratory Tests Test 02/14/19 18:30 02/15/19 06:09 02/15/19 11:15 02/15/19 13:45 Stool Occult Blood Positive (NEGATIVE) White Blood Count 27.5 K/UL (4.8-10.8) #*H Red Blood Count 4.13 M/UL (4.70-6.10) L Hemoglobin 13.9 G/DL (14.2-18.0) L Hematocrit 40.7 % (42.0-52.0) L Mean Corpuscular Volume 99 FL (80-99) Mean Corpuscular Hemoglobin 33.7 PG (27.0-31.0) H Mean Corpuscular Hemoglobin Concent 34.2 G/DL (32.0-36.0) Red Cell Distribution Width 13.0 % (11.6-14.8) Platelet Count 130 K/UL (150-450) L Mean Platelet Volume 7.7 FL (6.5-10.1) Neutrophils (%) (Auto) % (45.0-75.0) Lymphocytes (%) (Auto) % (20.0-45.0) Monocytes (%) (Auto) % (1.0-10.0) Eosinophils (%) (Auto) % (0.0-3.0) Basophils (%) (Auto) % (0.0-2.0) Differential Total Cells Counted 100 Neutrophils % (Manual) 83 % (45-75) H Lymphocytes % (Manual) 2 % (20-45) L Monocytes % (Manual) 6 % (1-10) Eosinophils % (Manual) 1 % (0-3) Basophils % (Manual) 0 % (0-2) Band Neutrophils 8 % (0-8) Platelet Estimate Decreased L Platelet Morphology Normal Red Blood Cell Morphology Normal Prothrombin Time 13.8 SEC (9.30-11.50) H Prothromb Time International Ratio 1.3 (0.9-1.1) H Activated Partial Thromboplast Time 32 SEC (23-33) Sodium Level 141 MMOL/L (136-145) Potassium Level 3.1 MMOL/L (3.5-5.1) L Chloride Level 105 MMOL/L (98-107) Carbon Dioxide Level 20 MMOL/L (21-32) L Anion Gap 17 mmol/L (5-15) H Blood Urea Nitrogen 8 mg/dL (7-18) Creatinine 1.1 MG/DL (0.55-1.30) Estimat Glomerular Filtration Rate > 60 mL/min (>60) Glucose Level 108 MG/DL (74-106) H Calcium Level 8.9 MG/DL (8.5-10.1) Phosphorus Level 2.2 MG/DL (2.5-4.9) L Magnesium Level 1.4 MG/DL (1.8-2.4) L Total Creatine Kinase 90 U/L (26-308) Troponin I 0.014 ng/mL (0.000-0.056) Lactic Acid Level 7.90 mmol/L (0.4-2.0) H Pending Height (Feet): 5 Height (Inches): 5.00 Weight (Pounds): 130 Medications Current Medications Medications (Trade) Dose Ordered Sig/Tonny Route PRN Reason Start Time Stop Time Status Last Admin Dose Admin Acetaminophen (Tylenol) 650 mg Q4H PRN ORAL Mild Pain (Pain Scale 1-3) 02/15/19 12:30 03/16/19 12:29 Bisacodyl (Dulcolax) 10 mg HSPRN PRN RECTAL Constipation 02/15/19 21:00 03/16/19 20:59 Dextrose (Dextrose 50%) 25 ml Q30M PRN IV Hypoglycemia 02/15/19 12:45 03/16/19 16:14 Dextrose (Dextrose 50%) 50 ml Q30M PRN IV Hypoglycemia 02/15/19 12:45 03/16/19 16:14 Diphenhydramine HCl (Benadryl) 25 mg Q6H PRN ORAL Itching/Pruritis 02/15/19 13:00 03/16/19 12:59 Docusate Sodium (Colace) 100 mg EVERY 12 HOURS ORAL 02/15/19 21:00 03/16/19 20:59 Heparin Sodium (Porcine) (Heparin 5000 units/ml) 5,000 units EVERY 12 HOURS SUBQ 02/15/19 21:00 03/16/19 20:59 Lorazepam (Ativan 2mg/ml 1ml) 1 mg Q4H PRN IV For Seizures 02/15/19 13:00 02/21/19 12:59 Ondansetron HCl (Zofran) 4 mg Q6H PRN IVP Nausea & Vomiting 02/15/19 13:00 03/16/19 12:59 Phenytoin (Dilantin) 100 mg Q8HR ORAL 02/15/19 14:00 03/16/19 21:59 02/15/19 13:46 Piperacillin Sod/ Tazobactam Sod 3.375 gm/Sodium Chloride 110 ml @ 27.5 mls/hr EVERY 8 HOURS IVPB 02/15/19 14:00 02/20/19 13:59 02/15/19 13:46 Sodium Chloride 1,000 ml @ 75 mls/hr [id number] IVLG 02/15/19 12:30 03/17/19 12:29 02/15/19 12:42 Vancomycin HCl (Vanco rx to dose) 1 ea DAILY PRN MISC Per rx protocol 02/15/19 13:00 03/17/19 12:59 Vancomycin HCl 750 mg/Sodium Chloride 275 ml @ 183.333 mls/hr Q12H IVPB 02/16/19 00:00 02/21/19 00:00 Vancomycin HCl 1 gm/Dextrose 275 ml @ 183.708 mls/hr ONCE ONCE IVPB 02/15/19 13:00 02/15/19 14:29 Assessment/Plan Problem List: (1) Non-compliance Assessment & Plan: Noncompliance with seizure medication with known history of seizures Now had seizure Appreciate neurology input ICD Codes: Z91.19 - Patient's noncompliance with other medical treatment and regimen SNOMED: 4540672 (2) Electrolyte and fluid disorder Assessment & Plan: Likely due to EtOH use and dehydration IV hydration Trend labs ICD Codes: E87.8 - Other disorders of electrolyte and fluid balance, not elsewhere classified SNOMED: 95056254 (3) Fever ICD Codes: R50.9 - Fever, unspecified SNOMED: 845299005 (4) Oral thrush ICD Codes: B37.0 - Candidal stomatitis SNOMED: 64061610 (5) Diarrhea ICD Codes: R19.7 - Diarrhea, unspecified SNOMED: 47767790 (6) Aspiration pneumonia ICD Codes: J69.0 - Pneumonitis due to inhalation of food and vomit SNOMED: 726948336 (7) Seizure disorder ICD Codes: G40.909 - Epilepsy, unspecified, not intractable, without status epilepticus SNOMED: 817704081 (8) Tachycardia ICD Codes: R00.0 - Tachycardia, unspecified SNOMED: 6955867 (9) Altered mental status ICD Codes: R41.82 - Altered mental status, unspecified SNOMED: 240607149 (10) Alcohol withdrawal seizure ICD Codes: F10.239 - Alcohol dependence with withdrawal, unspecified SNOMED: 155861529 (11) Alcohol withdrawal seizure ICD Codes: F10.239 - Alcohol dependence with withdrawal, unspecified SNOMED: 004355462 (12) Episode of confusion ICD Codes: R41.0 - Disorientation, unspecified SNOMED: 50159759 (13) Coffee ground emesis ICD Codes: K92.0 - Hematemesis SNOMED: 63227538 (14) Gastrointestinal bleed Assessment & Plan: Patient on admission identified to have maroon-colored stool and coffee-ground emesis. Labs noted mild anemia with H&H trending down. No acute active bleed noted but given patient's history high risk for potential ulcers. PPI Appreciate GI input considerations for EGD once stable We will follow with recommendations thank you ICD Codes: K92.2 - Gastrointestinal hemorrhage, unspecified SNOMED: 61041364 Juanpablo Marcus Feb 15, 2019 14:10
--- NOTE | 2019-02-15 14:28 | NUR ---
P.T NOTE:LATE ENTRY 929 P.T EVALUATION COMPLETED AND TREATMENT INITIATED. PLEASE REFER TO P.T EVALUATION FOR CURRENT FUNCTIONAL STATUS. PATIENT IS ALERT, O TO SELF AND PLACE BUT NOT TIME AND CURRENT SITUATION. PATIENT IS SOMEWHAT CONFUSED AND RESTLESS HOWEVER ABLE TO FOLLOW COMMANDS WITH CONSTANT REDIRECTIONS. PATIENT DENIED C/O PAIN NOR DISCOMFORT. PATIENT IS GENERALLY WEAK AND APPEARED DECONDITIONED. PATIENT CURRENTLY REQUIRE MOD A X 1 FOR BED MOBILITY AND MOD A X 1 FOR TRANSFER MOBILITY TASKS USING THE FWW. PATIENT WAS ABLE TO WITH WITH BUE SUPPORT AND WAS ABLE TO STAND USING THE FWW FOR 30 SECS WITH MOD SUPPORT HOWEVER UNABLE TO TAKE STEPS DUE WEAKNESS. SKILLED P.T SERVICE IS WARRANTED TO INCREASE HIS STRENGTH, BALANCE AND ENDURANCE TO INCREASE HIS MOBILITY INDEPENDENCE AND SAFETY. SNF IS RECOMMEND FOR SHORT TERM REHAB VS HOME P.T AT D/C. THANK YOU FOR THIS REFERRAL.
--- NOTE | 2019-02-15 15:00 | NUR ---
NURSE NOTES: Patient alert and oriented x 4. Signed IV contrast consent for CT abdomen. Consent in chart.
--- NOTE | 2019-02-15 15:28 | Diagnostic Imaging Report ---
Indication: Abdominal pain Technique: Grayscale and duplex Doppler imaging of the abdomen performed. Comparison: 08/04/2017 Findings: The liver is echogenic, measures 19 cm and shows a nodular surface. Doppler interrogation of the main portal vein shows patency with hepatopedal, monophasic flow. There is no biliary ductal dilatation identified. Gallbladder shows multiple small stones. Sonographic Dawson's sign was negative per technologist. CBD is 3 mm. There demonstrated part of the pancreas, aorta and IVC show no definite abnormalities. Both kidneys appear unremarkable. There is no hydronephrosis. IMPRESSION: Cholelithiasis Hepatomegaly with fatty infiltration. Surface nodularity suggestive of chronic disease.
--- NOTE | 2019-02-15 16:00 | NUR ---
NURSE NOTES: Patient vomited x 1 dark brown emesis. Notified Dr. Marcus. MD ordered Pantoprazole 40 mg IV x 1 now and Pantoprazole 40 mg IV BID. Ordered CBC, BMP, and lactic acid at 1800 hours. MD aware of Lactic Acid level. Orders entered, noted, and carried out. Will continue to monitor patient.
[2019-02-15] MEDS ORDERED: Pantoprazole Inj IVP SCH (16:15)
--- NOTE | 2019-02-15 16:47 | NUR ---
SPEECH PATHOLOGY: COGNITIVE/LINGUISTIC STATUS: PATIENT PRESENTS WITH MOD/SEVERE COGNITIVE IMPAIRMENT VERIFIED BY RN'S OBSERVATION THAT THE PATIENT PRESENTS "ALTERED", PATIENT CONTINUES TO EXPERIENCE REPEATED EPISODES OF EMESIS, DISORIENTATION, CONFUSION. PATIENT UNABLE TO DRAW A CLOCK, GENERATIVE NAMING LESS THAN 5 ITEMS PER CATAGORY, PERSEVERATION, FLAT AFFECT. ST TO FOLLOW UP WITH COGNITIVE/LINGUISTIC TRAINING, ONGOING ASSESSMENT, PATIENT/CAREGIVER EDUCATION. THANK YOU FOR THIS REFERRAL. GERA VAZQUEZ MA/MSLP
--- NOTE | 2019-02-15 17:23 | Cardiac Electrophysiology PN ---
Subjective Subjective [id number] Objective Last 24 Hour Vital Signs Date Time Temp Pulse Resp B/P (MAP) Pulse Ox O2 Delivery O2 Flow Rate FiO2 02/15/19 12:15 96/61 (73) 02/15/19 12:00 132 02/15/19 11:30 98.7 132 18 86/62 (70) 96 02/15/19 09:00 Room Air 02/15/19 08:00 100.4 144 18 92/68 (76) 96 02/15/19 07:26 146 02/15/19 04:00 98.5 131 20 135/77 (96) 98 02/15/19 04:00 142 02/15/19 00:00 128 02/15/19 00:00 98.6 125 20 109/75 (86) 96 02/14/19 21:00 Room Air 02/14/19 20:00 137 02/14/19 20:00 98.2 120 22 103/74 (84) 96 Intake and Output 02/14/19 02/15/19 19:00 07:00 Intake Total 1295 ml Output Total 602 ml Balance 1295 ml -602 ml Intake Oral 0 ml IV Total 1295 ml Output Urine Total 600 ml Emesis 2 ml # Voids 2 # Bowel Movements 1 1 Laboratory Tests Test 02/14/19 18:30 02/15/19 06:09 02/15/19 11:15 02/15/19 13:45 Stool Occult Blood Positive (NEGATIVE) White Blood Count 27.5 K/UL (4.8-10.8) #*H Red Blood Count 4.13 M/UL (4.70-6.10) L Hemoglobin 13.9 G/DL (14.2-18.0) L Hematocrit 40.7 % (42.0-52.0) L Mean Corpuscular Volume 99 FL (80-99) Mean Corpuscular Hemoglobin 33.7 PG (27.0-31.0) H Mean Corpuscular Hemoglobin Concent 34.2 G/DL (32.0-36.0) Red Cell Distribution Width 13.0 % (11.6-14.8) Platelet Count 130 K/UL (150-450) L Mean Platelet Volume 7.7 FL (6.5-10.1) Neutrophils (%) (Auto) % (45.0-75.0) Lymphocytes (%) (Auto) % (20.0-45.0) Monocytes (%) (Auto) % (1.0-10.0) Eosinophils (%) (Auto) % (0.0-3.0) Basophils (%) (Auto) % (0.0-2.0) Differential Total Cells Counted 100 Neutrophils % (Manual) 83 % (45-75) H Lymphocytes % (Manual) 2 % (20-45) L Monocytes % (Manual) 6 % (1-10) Eosinophils % (Manual) 1 % (0-3) Basophils % (Manual) 0 % (0-2) Band Neutrophils 8 % (0-8) Platelet Estimate Decreased L Platelet Morphology Normal Red Blood Cell Morphology Normal Prothrombin Time 13.8 SEC (9.30-11.50) H Prothromb Time International Ratio 1.3 (0.9-1.1) H Activated Partial Thromboplast Time 32 SEC (23-33) Sodium Level 141 MMOL/L (136-145) Potassium Level 3.1 MMOL/L (3.5-5.1) L Chloride Level 105 MMOL/L (98-107) Carbon Dioxide Level 20 MMOL/L (21-32) L Anion Gap 17 mmol/L (5-15) H Blood Urea Nitrogen 8 mg/dL (7-18) Creatinine 1.1 MG/DL (0.55-1.30) Estimat Glomerular Filtration Rate > 60 mL/min (>60) Glucose Level 108 MG/DL (74-106) H Calcium Level 8.9 MG/DL (8.5-10.1) Phosphorus Level 2.2 MG/DL (2.5-4.9) L Magnesium Level 1.4 MG/DL (1.8-2.4) L Total Creatine Kinase 90 U/L (26-308) Troponin I 0.014 ng/mL (0.000-0.056) Lactic Acid Level 7.90 mmol/L (0.4-2.0) H 7.30 mmol/L (0.66-2.22) H Microbiology Date/Time Source Procedure Growth Status 02/14/19 12:30 Urine,Clean Catch Urine Culture - Preliminary Gram Negative Bacillus 1 Resulted Fidencio Trevino MD Feb 15, 2019 17:23
--- NOTE | 2019-02-15 18:00 | Consultation ---
DATE OF CONSULTATION: 02/15/2019 CARDIOLOGY CONSULTATION CONSULTING PHYSICIAN: Fidencio Trevino M.D. REFERRING PHYSICIAN: Diego Castrejon M.D. REASON FOR CONSULTATION: Tachycardia. HISTORY OF PRESENT ILLNESS: This is a 54-year-old gentleman with history of seizure disorder, on Dilantin and history of alcohol abuse, presented to the hospital with tonic clonic seizures of unknown length of time. The patient does not remember what happened. The patient has been not taking his medication for past 2 weeks as he ran out of medication and did not have any refills. In the emergency room, the patient was found to be tachycardic with heart rate of 160s. No evidence of atrial fibrillation, it was just sinus tachycardia. Cardiology consultation was obtained for further evaluation. REVIEW OF SYSTEMS: Negative other than what was mentioned in the history of present illness. PAST MEDICAL HISTORY: As mentioned above. FAMILY HISTORY: Noncontributory. SOCIAL HISTORY: He lives with a friend who takes care of him. PHYSICAL EXAMINATION: VITAL SIGNS: Show blood pressure of 96/61, it was as low as 86/62, pulse was 160s, currently 132, respirations 18. HEAD AND NECK: Shows no JVD. LUNGS: Decreased breath sounds. CARDIOVASCULAR: Regular S1 and S2 with no gallop or murmur. ABDOMEN: Soft. EXTREMITIES: No pitting edema. LABORATORY AND DIAGNOSTIC DATA: His labs show white count of 27.5, hemoglobin of 13.9, hematocrit of 40, and platelet count 130. Sodium 141, potassium , BUN of 8, creatinine 1.1. Troponin is negative. His urine toxicology screen is negative. ASSESSMENT AND PLAN: 1. Tachycardia due to sinus tachycardia. No evidence of acute myocardial infarction given the computer was read as such. The patient does not have any chest pain. This is likely due to the patient's sepsis and anemia and alcohol withdrawal. 2. Sepsis. The patient was on broad-spectrum IV antibiotics. 3. Seizures with noncompliance. Thank you very much for allowing me to participate in the care of this patient. Please do not hesitate to contact me for any questions regarding my evaluation. Echocardiogram is pending at the time of this dictation. Fidencio Trevino M.D. DR: RAYRAY JOB#: [id number] CC:
[2019-02-15 18:02] LABS: HEMATOCRIT 38.4 % (42.0-52.0); HEMOGLOBIN 12.8 G/DL (14.2-18.0); MEAN CORPUSCULAR VOLUME 99 FL (80-99); PLATELET COUNT 106 K/UL (150-450); RED BLOOD COUNT 3.89 M/UL (4.70-6.10); RED CELL DISTRIBUTION WIDTH 13.2 % (11.6-14.8)
--- NOTE | 2019-02-15 18:12 | NUR ---
NURSE NOTES: Called and left message with Erasmo regarding EEG order, . Awaiting call back. Will continue to monitor patient.
[2019-02-15 18:24] LABS: ANION GAP 19 mmol/L (5-15); BLOOD UREA NITROGEN 11 mg/dL (7-18); CALCIUM 8.9 MG/DL (8.5-10.1); CARBON DIOXIDE 15 MMOL/L (21-32); CHLORIDE 109 MMOL/L (98-107); CREATININE 1.2 MG/DL (0.55-1.30); POTASSIUM 3.8 MMOL/L (3.5-5.1); SODIUM 143 MMOL/L (136-145)
--- NOTE | 2019-02-15 18:49 | NUR ---
NURSE NOTES: Patient noted with elevated heart rate of 151 bpm. Contacted and informed Dr. Trevino that patient's heart rate goes as high as 151 bpm sinus tachycardia, BP 103/65. Patient denies dizziness, denies chest paint. Currently patient is heart rate [address] Trevino acknowledged, ordered NS 500 cc bolus x 1. Order entered, noted, and carried out. Will continue to monitor patient.
[2019-02-15 19:08] LABS: WHITE BLOOD COUNT 25.5 K/UL (4.8-10.8)
--- NOTE | 2019-02-15 19:32 | NUR ---
NURSE NOTES: Contacted and informed Dr. Marcus of WBC level of 25 and lactic acid of 9.60. Dr. Marcus acknowledged. No new orders given at this time. Noted.
--- NOTE | 2019-02-15 19:33 | NUR ---
HAND-OFF: Report given to ESHA Angel.
--- NOTE | 2019-02-15 19:45 | NUR ---
NURSE NOTES: BEDSIDE REPORT RECEIVED FROM ESHA SALGUERO. PT IS X3-4, ABLE TO MAKE NEEDS KNOWN. 2L NC SATING WELL. SIZE STAMPER SHOWING ST, ASYMPTOMATIC CURRENTLY. CONDOM CATH IN PLACE, DRAINING. SKIN IS CLEAN, DRY, INTACT. IV SITES ARE LW AND RFRA, ASYMPTOMATIC. RUNNING NS @ 125. ORDER FOR 500 NS BOLUS FOR DECREASED BLOOD PRESSURE. ESHA SALGUERO WILL CARRY OUT AND I WILL REASSESS BP. AWAITING LABS TO INFORM MD. BED IS LOCKED IN LOWEST POSITION, SRX3, CALL ROSE W/ IN REACH, SZ PRECAUTIONS CONTINUED. WILL CONTINUE TO MONITOR AND FOLLOW W/ PLAN OF CARE.
--- NOTE | 2019-02-15 20:05 | General Progress Note ---
Assessment/Plan Status: stable Assessment/Plan: 54 year old male with pMH of seizure disorder and etoh abuse admitted for seizures 2/2 non-compliance #Severe sepsis likely 2/2 UTI #Hypotension responding to fluids -Vanc and Zosyn started -ID consulted -f/u cultures -upgrade to SKY #Lactic acidosis likely 2/2 recent seizures -unlikely abdominal source as pt denies abdominal pain -CTM -Fluid boluses ordered -Cont mIVF -Repeat in AM #Coffee ground emesis likely in setting of GI bleed -H/H stable -GI consult appreciated -Plan for EGD in AM -cont NPO -surgery consult appreciated #Seizures 2/2 noncomplaint with AED -s/p phenytoin load in ed -Cont Phenytoin -Neurology consult appreciated -pendign EEG tonight -Ativan PRN for seizures -NPO until cleared by speech -Seizure precautions #Hypokalemia -repleted -CTM 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 Lactic acidosis possible 2/2 recent seizures. Clinically stable, answering questions appropriately, has no complaints at this time. Objective Last 24 Hour Vital Signs Date Time Temp Pulse Resp B/P (MAP) Pulse Ox O2 Delivery O2 Flow Rate FiO2 02/15/19 16:00 Room Air 02/15/19 16:00 97.7 133 23 103/65 (78) 97 02/15/19 16:00 135 02/15/19 12:15 96/61 (73) 02/15/19 12:00 132 02/15/19 11:30 98.7 132 18 86/62 (70) 96 02/15/19 09:00 Room Air 02/15/19 08:00 100.4 144 18 92/68 (76) 96 02/15/19 07:26 146 02/15/19 04:00 98.5 131 20 135/77 (96) 98 02/15/19 04:00 142 02/15/19 00:00 128 02/15/19 00:00 98.6 125 20 109/75 (86) 96 02/14/19 21:00 Room Air 02/14/19 20:00 137 02/14/19 20:00 98.2 120 22 103/74 (84) 96 Intake and Output 02/14/19 02/15/19 19:00 07:00 Intake Total 1295 ml Output Total 602 ml Balance 1295 ml -602 ml Intake Oral 0 ml IV Total 1295 ml Output Urine Total 600 ml Emesis 2 ml # Voids 2 # Bowel Movements 1 1 Laboratory Tests 02/15/19 06:09: White Blood Count 27.5#*H, Red Blood Count 4.13L, Hemoglobin 13.9L, Hematocrit 40.7L, Mean Corpuscular Volume 99, Mean Corpuscular Hemoglobin 33.7H, Mean Corpuscular Hemoglobin Concent 34.2, Red Cell Distribution Width 13.0, Platelet Count 130L, Mean Platelet Volume 7.7, Neutrophils (%) (Auto) , Lymphocytes (%) ( Auto) , Monocytes (%) (Auto) , Eosinophils (%) (Auto) , Basophils (%) (Auto) , Differential Total Cells Counted 100, Neutrophils % (Manual) 83H, Lymphocytes % (Manual) 2L, Monocytes % (Manual) 6, Eosinophils % (Manual) 1, Basophils % ( Manual) 0, Band Neutrophils 8, Platelet Estimate DecreasedL, Platelet Morphology Normal, Red Blood Cell Morphology Normal, Prothrombin Time 13.8H, Prothromb Time International Ratio 1.3H, Activated Partial Thromboplast Time 32 , Sodium Level 141, Potassium Level 3.1L, Chloride Level 105, Carbon Dioxide Level 20L, Anion Gap 17H, Blood Urea Nitrogen 8, Creatinine 1.1, Estimat Glomerular Filtration Rate > 60, Glucose Level 108H, Calcium Level 8.9, Phosphorus Level 2.2L, Magnesium Level 1.4L, Total Creatine Kinase 90, Troponin I 0.014 02/15/19 11:15: Lactic Acid Level 7.90H 02/15/19 13:45: Lactic Acid Level 7.30H 02/15/19 17:55: White Blood Count 25.5*H, Red Blood Count 3.89L, Hemoglobin 12.8L, Hematocrit 38.4L, Mean Corpuscular Volume 99, Mean Corpuscular Hemoglobin 32.9H, Mean Corpuscular Hemoglobin Concent 33.4, Red Cell Distribution Width 13.2, Platelet Count 106L, Mean Platelet Volume 8.2, Neutrophils (%) (Auto) , Lymphocytes (%) ( Auto) , Monocytes (%) (Auto) , Eosinophils (%) (Auto) , Basophils (%) (Auto) , Neutrophils % (Manual) [Pending], Lymphocytes % (Manual) [Pending], Platelet Estimate [Pending], Platelet Morphology [Pending], Sodium Level 143, Potassium Level 3.8, Chloride Level 109H, Carbon Dioxide Level 15L, Anion Gap 19H, Blood Urea Nitrogen 11, Creatinine 1.2, Estimat Glomerular Filtration Rate > 60, Glucose Level 133H, Calcium Level 8.9, Lactic Acid Level 9.60H Height (Feet): 5 Height (Inches): 5.00 Weight (Pounds): 130 Objective General appearance: alert, cooperative, no distress, appears stated age Head: Normocephalic, without obvious abnormality, atraumatic Eyes: conjunctivae/corneas clear. PERRL, EOM's intact. Fundi benign Throat: Lips, mucosa, and tongue normal. Teeth and gums normal Neck: supple, symmetrical, trachea midline, no adenopathy, thyroid: not enlarged, symmetric, no tenderness/mass/nodules, no carotid bruit and no JVD Lungs: clear to auscultation bilaterally Heart: regular rate and rhythm, S1, S2 normal, no murmur, click, rub or gallop Abdomen: soft, non-tender. Bowel sounds normal. No masses, no organomegaly Extremities: extremities normal, atraumatic, no cyanosis or edema Pulses: 2+ and symmetric Skin: Skin color, texture, turgor normal. No rashes or lesions Neurologic: Grossly normal Lyn Cuevas MD Feb 15, 2019 20:05
--- NOTE | 2019-02-15 20:15 | NUR ---
NURSE NOTES: SPOKE W/ DR. SANTIZO, BP SYS IS 70-80 SUSTAINED AFTER 1, 500 BOLUS, ORDER TO ADMIN #2. WILL CARRY OUT AND CONTINUE TO MONITOR. LET MD KNOW LACTIC ACID LEVEL. WILL CONTINUE TO MONITOR.
--- NOTE | 2019-02-15 20:17 | Neurology Progress Note ---
Interim History Interim History ROS Limited/Unobtainable: No Interim History no further seizures pending eeg Objective Physical Exam Last Vital Signs Date Time Temp Pulse Resp B/P (MAP) Pulse Ox O2 Delivery O2 Flow Rate FiO2 02/15/19 16:00 Room Air 02/15/19 16:00 97.7 133 23 103/65 (78) 97 02/14/19 15:15 2.0 Laboratory Tests Test 02/15/19 06:09 02/15/19 11:15 02/15/19 13:45 02/15/19 17:55 White Blood Count 27.5 K/UL (4.8-10.8) #*H 25.5 K/UL (4.8-10.8) *H Red Blood Count 4.13 M/UL (4.70-6.10) L 3.89 M/UL (4.70-6.10) L Hemoglobin 13.9 G/DL (14.2-18.0) L 12.8 G/DL (14.2-18.0) L Hematocrit 40.7 % (42.0-52.0) L 38.4 % (42.0-52.0) L Mean Corpuscular Volume 99 FL (80-99) 99 FL (80-99) Mean Corpuscular Hemoglobin 33.7 PG (27.0-31.0) H 32.9 PG (27.0-31.0) H Mean Corpuscular Hemoglobin Concent 34.2 G/DL (32.0-36.0) 33.4 G/DL (32.0-36.0) Red Cell Distribution Width 13.0 % (11.6-14.8) 13.2 % (11.6-14.8) Platelet Count 130 K/UL (150-450) L 106 K/UL (150-450) L Mean Platelet Volume 7.7 FL (6.5-10.1) 8.2 FL (6.5-10.1) Neutrophils (%) (Auto) % (45.0-75.0) % (45.0-75.0) Lymphocytes (%) (Auto) % (20.0-45.0) % (20.0-45.0) Monocytes (%) (Auto) % (1.0-10.0) % (1.0-10.0) Eosinophils (%) (Auto) % (0.0-3.0) % (0.0-3.0) Basophils (%) (Auto) % (0.0-2.0) % (0.0-2.0) Differential Total Cells Counted 100 Neutrophils % (Manual) 83 % (45-75) H Pending Lymphocytes % (Manual) 2 % (20-45) L Pending Monocytes % (Manual) 6 % (1-10) Eosinophils % (Manual) 1 % (0-3) Basophils % (Manual) 0 % (0-2) Band Neutrophils 8 % (0-8) Platelet Estimate Decreased L Pending Platelet Morphology Normal Pending Red Blood Cell Morphology Normal Prothrombin Time 13.8 SEC (9.30-11.50) H Prothromb Time International Ratio 1.3 (0.9-1.1) H Activated Partial Thromboplast Time 32 SEC (23-33) Sodium Level 141 MMOL/L (136-145) 143 MMOL/L (136-145) Potassium Level 3.1 MMOL/L (3.5-5.1) L 3.8 MMOL/L (3.5-5.1) Chloride Level 105 MMOL/L (98-107) 109 MMOL/L (98-107) H Carbon Dioxide Level 20 MMOL/L (21-32) L 15 MMOL/L (21-32) L Anion Gap 17 mmol/L (5-15) H 19 mmol/L (5-15) H Blood Urea Nitrogen 8 mg/dL (7-18) 11 mg/dL (7-18) Creatinine 1.1 MG/DL (0.55-1.30) 1.2 MG/DL (0.55-1.30) Estimat Glomerular Filtration Rate > 60 mL/min (>60) > 60 mL/min (>60) Glucose Level 108 MG/DL (74-106) H 133 MG/DL (74-106) H Calcium Level 8.9 MG/DL (8.5-10.1) 8.9 MG/DL (8.5-10.1) Phosphorus Level 2.2 MG/DL (2.5-4.9) L Magnesium Level 1.4 MG/DL (1.8-2.4) L Total Creatine Kinase 90 U/L (26-308) Troponin I 0.014 ng/mL (0.000-0.056) Lactic Acid Level 7.90 mmol/L (0.4-2.0) H 7.30 mmol/L (0.66-2.22) H 9.60 mmol/L (0.4-2.0) H General: well developed Head: normocophalic Neck: no rigidity EENT: benign Neurologic Exam Mental Status: awake, alert, oriented x4, normal cognition, good mathematical skills, normal recent memory, normal remote memory, preserved visuospatial function Speech: normal speech, no dysarthia Cranial Nerves III, IV, : PERRLA, EOMI, pupils Motor System: normal muscle tone, strength 5/5, no involuntary movement, no muscle wasting Impression/Recommendations Problems: (1) Episode of confusion (2) Tachycardia (3) Fever (4) Diarrhea (5) Altered mental status (6) Alcohol withdrawal seizure (7) Oral thrush (8) Electrolyte and fluid disorder (9) Aspiration pneumonia (10) Alcohol withdrawal seizure (11) Non-compliance (12) Seizure disorder Status: stable Diagnostic Impression seizure due to non compliance dilantin load cont dilantin 100 mg q8h eeg Myron Estrella MD Feb 15, 2019 20:17
[2019-02-15] MEDS ORDERED: Docusate 100mg cap ORAL SCH (21:00)
[2019-02-15] MEDS ORDERED: Heparin 5000 units/ml inj SUBQ SCH (21:00)
--- NOTE | 2019-02-15 21:00 | NUR ---
NURSE NOTES: ADMINISTERED #2 BOLUS, PT BP STILL IN 70-80'S SYS SUSTAINED. REACHED OUT TO DR. SANTIZO REGARDING THIS, LOW URINE OUTPUT, NEW ONSET CONFUSION, DOUBLE VISION REPORTED BY PT. ORDER #3 BOLUS, AND WILL CONTACT DR. EDUARDO WHO IS ONSITE. NO OTHER ORDERS AT THIS TIME. WILL CONTINUE TO MONITOR.
--- NOTE | 2019-02-15 21:25 | NUR ---
NURSE NOTES: FINISHED NS BOLUS #3, PT REMAINS IN 80'S-90'S SYS SUSTAINED. DR. EDUARDO AT BEDSIDE, GOING TO INSERT FEMORAL TLC. UPDATED HIM ON PT CONDITION. PT IS LETHARGIC, CONFUSED, COMBATIVE, OBSERVED PULLING AT IV. WILL CONTINUE TO MONITOR AND FOLLOW W/ PLAN OF CARE.
--- NOTE | 2019-02-15 21:30 | NUR ---
NURSE NOTES: PER DR. BARAHONA, ORDER TO INSERT WILKINSON. CARRIED OUT, NO OUTPUT CURRENTLY. ORDER TO TRANSFER TO ICU, WILL CARRY OUT. PT HAD EPISODE OF VOMITING, PO MED HELD. DR. EDUARDO AWARE. WILL CONTINUE TO MONITOR.
--- NOTE | 2019-02-15 21:31 | Operative Note - PDOC ---
Operative Note Operative Note Date of Operation/Procedure: Feb 15, 2019 Pre-op Diagnosis: sepsis, hypotension Procedure: left femoral central venous catheter insertion Post-op Diagnosis: same as pre-op Surgeon: john Anesthesia: local Specimen: none Complications: none Condition: stable Estimated Blood Loss: minimal Drains: none Implant(s) used?: No Indications for Procedure 54M admitted to [facility] with sepsis. hypotension, tachycardic, leukocytosis, lactic acidosis. poor peripheral access. needs fluids, meds, and possible pressors. consent obtained. procedure done at bedside. Description of Procedure patient made comfortable at bedside. left groin prepped and draped in standard surgical fashion after time out performed. consent noted. site noted. 1% lido with epi infiltrated. finder needle used and left femoral vein cannulated on first stick. venous blood noted. guidewire placed and needle removed. small skin incision made around wire. dilators used. line placed over wire without complication. all three ports flushed and aspirated well. line sutured in place. dressings applied. patient tolerated well. line ready for use Juanpablo Marcus Feb 15, 2019 21:31
--- NOTE | 2019-02-15 22:00 | NUR ---
TRANSFER TO FLOOR: Patient transferred to ICU 246-B, per DR. EDUARDO. Report given to ESHA LE. Belongings and medications given to ESHA LE. Family and or S/O informed of transfer.
--- NOTE | 2019-02-15 22:10 | NUR ---
NURSE NOTES: Received pt from SDU, report given by ESHA Angel. Pt's transferred to ICU due to hypotension, his BP current 90/45, pt received 1500ml NS bolus, also newly inserted Left femoral TLC by DR Marcus, running NS at 150ml/hr at this time. Patient in bed AAO X2-3 with episodes of confusion. O2 sat at 98% with 2L/NC. No complaint of acute pain at this time. NPO at this time. Kept clean, dry, and comfortable in bed. IV line Right FA 20G intact and patent. Continuous cardiac monitoring per protocol and noted tachycardia. Aguilar 18fr noted in place for incontinence small amount of dark eneida urine noted. Noted coffee-ground emesis from the previous shift, will continue for any further episodes noted. Safety and seizure precaution in place; siderails X3 up and padded, call light within reach, bed in lowest position and free from clutter, brakes and alarm on at all times, and suction equipment at bedside. Planning for EGD, abdomen CT scan with contrast, and 2D Echo in AM. EEG done previous shift, result in chart. Needs and wants anticipated and attended, will continue plan of care and monitor for any changes noted.
--- NOTE | 2019-02-15 22:30 | NUR ---
NURSE NOTES: PRIMARY INFORMED OF TRANSFER. LEFT MESSAGE WITH CATDR. 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
[2019-02-16] VITALS (67 sets, daily range): BP systolic 58–125; BP diastolic 32–104
[2019-02-16] MEDS ORDERED: Vancomycin 750 MG in NS 275 ML IVPB SCH ×4
[2019-02-16] MEDS ORDERED: Vancomycin 750mg/NS 275ml IVPB SCH ×2
[2019-02-16] MEDS: LORazepam Inj 2mg/ml 1ml IV PRN ×2 (00:07→10:46)
--- NOTE | 2019-02-16 00:50 | NUR ---
NURSE NOTES: Noted pt became more confuse, tachycardia and tachypnea, paged Dr Castrejon. Awaiting for call back. Also EKG was done showed SVT, paged Dr. Trevino. Current Hr 178, BP 97/53, Resp 38, O2 sat 98% on 2L/NC. Will continue to monitor. Levophed on standby per Dr Marcus previously ordered.
[2019-02-16] MEDS ORDERED: LORazepam Inj 2mg/ml 1ml IV PRN (01:00)
[2019-02-16] MEDS ORDERED: Acetaminophen 650 MG SUPP RECTAL PRN (04:30)
--- NOTE | 2019-02-16 04:40 | NUR ---
NURSE NOTES: Dr Sylvester is covering for Dr Castrejon called back, also informed pt's current condition and lactic acid level, Dr ordered to have STAT ABG and Banana bag. Will continue to monitor.
--- NOTE | 2019-02-16 05:10 | NUR ---
NURSE NOTES: Relayed ABG result to Dr Sylvester, ordered to start Bipap 15/5 100%FiO2, and BiCarb drip. Orders noted and carried out. Pt's resting in bed, continue with ST and tachypnea. Will continue to monitor.
[2019-02-16] MEDS: SODIUM BICARBONATE IV SCH ×3 (05:29→23:24)
[2019-02-16] MEDS: SODIUM CHLORIDE IV SCH ×3 (05:29→23:24)
[2019-02-16 05:38] LABS: HEMATOCRIT 32.3 % (42.0-52.0); MEAN CORPUSCULAR VOLUME 107 FL (80-99); PLATELET COUNT 90 K/UL (150-450); RED BLOOD COUNT 3.03 M/UL (4.70-6.10); RED CELL DISTRIBUTION WIDTH 14.9 % (11.6-14.8)
[2019-02-16 05:49] LABS: WHITE BLOOD COUNT 41.8 K/UL (4.8-10.8)
[2019-02-16] MEDS: Phenytoin 100mg cap ORAL SCH ×3 (06:00→21:27)
[2019-02-16] MEDS: Piperacillin/Tazobactam 3.375 GM in NS 110 ML IVPB SCH ×3 (06:00→21:29)
[2019-02-16 06:03] LABS: CREATINE KINASE 210 U/L (26-308); PHOSPHORUS 3.4 MG/DL (2.5-4.9)
[2019-02-16 06:06] LABS: ANION GAP 27 mmol/L (5-15); BLOOD UREA NITROGEN 14 mg/dL (7-18); CALCIUM 8.4 MG/DL (8.5-10.1); CHLORIDE 111 MMOL/L (98-107); CREATININE 2.1 MG/DL (0.55-1.30); POTASSIUM 3.8 MMOL/L (3.5-5.1); SODIUM 147 MMOL/L (136-145)
--- NOTE | 2019-02-16 06:16 | NUR ---
NURSE NOTES: Called and left message for MD Trevino at this time. Patient is currently on Levophed at 30 mcg/min. Hr 163, BP 77/48. awaiting call back
[2019-02-16 06:25] LABS: CARBON DIOXIDE 9 MMOL/L (21-32)
[2019-02-16 06:26] LABS: ALANINE AMINOTRANSFERASE 29 U/L (12-78); ALBUMIN 2.3 G/DL (3.4-5.0); ALKALINE PHOSPHATASE 75 U/L (46-116); ASPARTATE AMINO TRANSFERASE 110 U/L (15-37); BILIRUBIN,DIRECT 1.3 MG/DL (0.0-0.3); BILIRUBIN,TOTAL 2.1 MG/DL (0.2-1.0)
--- NOTE | 2019-02-16 07:00 | NUR ---
HAND-OFF: Report given to ESHA Cool.
--- NOTE | 2019-02-16 07:29 | NUR ---
RESPIRATORY NOTE: received pt on bipap. partial facial mask being used. foam tape in place with skin intact. no redness or skin tears visible around facial area. pt is tachypneic and tachycardic with retractive breathing. will attempt to remove bipap on pt. will cont to monitor.
--- NOTE | 2019-02-16 07:35 | NUR ---
NURSE NOTES: Report received from Dale RN. Pt alert and oriented x 1-2, confused and restless at times. Pt connected to rn cardiac rehab 130s. Pt on bipap 15/5 saturating 100%. Pt kept NPO at this time. Aguilar noted and intact with a small amount of clear eneida urine. BAUDILIO 20 G HL noted and intact. L TLC noted with Levophed going at 30 mcg and NS +3 amp bicarb at 125 cc/hr. Dr Cuevas called because bp in 70s and she ordered to add vasopressin. Safety measures in place with bed locked and in lowest position, side rails x3 up and bed alarm on. Will continue to monitor and continue plan of care.
--- NOTE | 2019-02-16 07:51 | NUR ---
RADIOLOGY DEPT., CHEST X-RAY DONE.-P.DYE
[2019-02-16] MEDS: Vasopressin 100 UNITS in NS 95 ML IV SCH (08:15)
--- NOTE | 2019-02-16 08:30 | General Progress Note ---
Assessment/Plan Status: stable Assessment/Plan: (1) Coffee ground emesis (2) Episode of confusion (3) Alcohol withdrawal seizure (4) Electrolyte and fluid disorder (5) Non-compliance (6) Sepsis/DIC (7) coagulopathic Plan Hold EGD plans for now ppi monitor H&H maintain NPO Follow-up ID recommendations given leukocytosis OB stool r/o GI bleed monitor H&H, prn transfusions IV hydration plus electrolyte correction Vit K fu labs Subjective ROS Limited/Unobtainable: No Allergies: Coded Allergies: No Known Allergies (Unverified , 02/10/15) Objective Last 24 Hour Vital Signs Date Time Temp Pulse Resp B/P (MAP) Pulse Ox O2 Delivery O2 Flow Rate FiO2 02/16/19 08:00 99.0 157 35 79/54 (62) 100 02/16/19 07:30 156 43 81/50 (60) 100 02/16/19 07:24 158 44 100 Facial 50 02/16/19 07:15 158 38 84/51 (62) 100 02/16/19 07:00 99.0 158 38 84/51 (62) 100 02/16/19 07:00 84/51 02/16/19 06:45 157 41 91/48 (62) 100 02/16/19 06:33 76/48 02/16/19 06:30 156 41 73/48 (56) 100 02/16/19 06:15 160 45 76/48 (57) 99 02/16/19 06:10 162 42 77/48 (58) 95 02/16/19 06:00 160 37 81/50 (60) 100 02/16/19 06:00 81/50 02/16/19 05:45 162 36 87/64 (72) 98 02/16/19 05:31 99.9 02/16/19 05:30 163 36 85/56 (66) 100 02/16/19 05:30 87/64 02/16/19 05:19 164 36 89/52 (64) 96 02/16/19 05:16 162 37 Bi-Pap 100 02/16/19 05:15 161 40 83/55 (64) 98 02/16/19 05:10 162 37 99 Facial 100 02/16/19 05:06 161 37 88/53 (65) 100 02/16/19 05:00 88/53 02/16/19 05:00 100.5 159 32 58/44 (49) 95 02/16/19 04:58 160 37 80/46 (57) 95 02/16/19 04:53 163 30 82/51 (61) 96 02/16/19 04:45 166 41 83/55 (64) 100 02/16/19 04:30 167 41 85/50 (62) 97 02/16/19 04:30 83/55 02/16/19 04:15 171 36 88/56 (67) 85 02/16/19 04:00 Room Air 02/16/19 04:00 88/56 02/16/19 04:00 173 02/16/19 04:00 168 50 97/55 (69) 95 02/16/19 03:45 173 50 74/52 (59) 99 02/16/19 03:30 74/52 02/16/19 03:30 182 28 96/60 (72) 88 02/16/19 03:15 173 56 92/68 (76) 93 02/16/19 03:00 177 46 79/50 (60) 94 02/16/19 03:00 79/38 02/16/19 02:45 173 56 76/53 (61) 97 02/16/19 02:30 173 42 87/48 (61) 96 02/16/19 02:09 171 47 96/32 (53) 98 02/16/19 02:06 173 33 85/47 (60) 97 02/16/19 02:02 79/55 02/16/19 02:00 168 43 77/52 (60) 99 02/16/19 01:45 178 37 88/41 (57) 98 02/16/19 01:30 173 40 79/42 (54) 98 02/16/19 01:15 172 46 96/54 (68) 99 02/16/19 01:00 99.4 175 38 97/53 (68) 98 02/16/19 00:45 185 41 98/65 (76) 90 02/16/19 00:39 184 22 93/64 (74) 99 02/16/19 00:15 180 25 105/54 (71) 96 02/16/19 00:00 145 02/16/19 00:00 Room Air 02/16/19 00:00 176 24 125/104 (111) 91 02/15/19 23:45 163 31 109/66 (80) 96 02/15/19 23:30 150 29 93/71 (78) 95 02/15/19 23:00 138 20 103/64 (77) 96 02/15/19 22:45 134 26 80/60 (67) 95 02/15/19 22:30 134 22 131/95 (107) 96 02/15/19 22:15 135 28 115/43 (67) 95 02/15/19 22:00 98.5 21 83/55 (64) 95 02/15/19 20:00 Room Air 02/15/19 20:00 98.1 130 22 85/65 (72) 98 02/15/19 20:00 134 02/15/19 16:00 Room Air 02/15/19 16:00 97.7 133 23 103/65 (78) 97 02/15/19 16:00 135 02/15/19 12:15 96/61 (73) 02/15/19 12:00 132 02/15/19 11:30 98.7 132 18 86/62 (70) 96 02/15/19 09:00 Room Air Intake and Output 02/15/19 02/16/19 18:59 06:59 Intake Total 1520.0 ml 4993.666 ml Output Total 126 ml 201 ml Balance 1394.0 ml 4792.666 ml Intake Oral 0 ml IV Total 1520.0 ml 4993.666 ml Output Urine Total 125 ml 200 ml Emesis 1 ml 1 ml # Voids 1 # Bowel Movements 3 Laboratory Tests 02/15/19 11:15: Lactic Acid Level 7.90H 02/15/19 13:45: Lactic Acid Level 7.30H 02/15/19 17:55: Lactic Acid Level 9.60H, White Blood Count 25.5*H, Red Blood Count 3.89L, Hemoglobin 12.8L, Hematocrit 38.4L, Mean Corpuscular Volume 99, Mean Corpuscular Hemoglobin 32.9H, Mean Corpuscular Hemoglobin Concent 33.4, Red Cell Distribution Width 13.2, Platelet Count 106L, Mean Platelet Volume 8.2, Neutrophils (%) (Auto) , Lymphocytes (%) (Auto) , Monocytes (%) (Auto) , Eosinophils (%) (Auto) , Basophils (%) (Auto) , Differential Total Cells Counted 100, Neutrophils % (Manual) 61, Lymphocytes % (Manual) 5L, Monocytes % ( Manual) 4, Eosinophils % (Manual) 0, Basophils % (Manual) 0, Metamyelocytes % 5H , Band Neutrophils 25H, Platelet Estimate DecreasedL, Platelet Morphology Normal , Poikilocytosis 1+, Macrocytosis 1+, Sodium Level 143, Potassium Level 3.8, Chloride Level 109H, Carbon Dioxide Level 15L, Anion Gap 19H, Blood Urea Nitrogen 11, Creatinine 1.2, Estimat Glomerular Filtration Rate > 60, Glucose Level 133H, Calcium Level 8.9 02/16/19 00:42: Lactic Acid Level 14.70H 02/16/19 04:35: Arterial Blood pH 7.105*L, Arterial Blood Partial Pressure CO2 26.5L, Arterial Blood Partial Pressure O2 89.5, Arterial Blood HCO3 8.1*L, Arterial Blood Oxygen Saturation 92.7L, Arterial Blood Base Excess -19.9*L, Cesar Test Positive 02/16/19 05:20: White Blood Count 41.8#*H, Red Blood Count 3.03L, Hemoglobin 10.0L, Hematocrit 32.3L, Mean Corpuscular Volume 107#H, Mean Corpuscular Hemoglobin 32.9H, Mean Corpuscular Hemoglobin Concent 30.9L, Red Cell Distribution Width 14.9H, Platelet Count 90L, Mean Platelet Volume 9.5, Neutrophils (%) (Auto) , Lymphocytes (%) (Auto) , Monocytes (%) (Auto) , Eosinophils (%) (Auto) , Basophils (%) (Auto) , Neutrophils % (Manual) [Pending], Lymphocytes % (Manual) [Pending], Platelet Estimate [Pending], Platelet Morphology [Pending], Erythrocyte Sedimentation Rate 23H, Prothrombin Time 20.2H, Prothromb Time International Ratio 2.0H, Activated Partial Thromboplast Time 50H, Sodium Level 147H, Potassium Level 3.8, Chloride Level 111H, Carbon Dioxide Level 9*L, Anion Gap 27H, Blood Urea Nitrogen 14, Creatinine 2.1#H, Estimat Glomerular Filtration Rate 40.0, Glucose Level 33#*L, Lactic Acid Level 16.00H, Calcium Level 8.4L, Phosphorus Level 3.4, Total Bilirubin 2.1H, Direct Bilirubin 1.3H, Aspartate Amino Transf (AST/SGOT) 110H, Alanine Aminotransferase (ALT/SGPT) 29, Alkaline Phosphatase 75, Total Creatine Kinase 210, Troponin I 0.167H, C- Reactive Protein, Quantitative 6.8H, Total Protein 5.5L, Albumin 2.3L, Lipase 39L Height (Feet): 5 Height (Inches): 5.00 Weight (Pounds): 130 General Appearance: lethargic EENT: normal ENT inspection Neck: supple Cardiovascular: tachycardia Respiratory/Chest: decreased breath sounds Abdomen: normal bowel sounds, non tender, soft Extremities: non-tender Jones Bloom MD Feb 16, 2019 08:30
--- NOTE | 2019-02-16 08:45 | Pulmonolgy Critical Care Note ---
Critical Care - Asmt/Plan Problems: (1) Septic shock (2) Sepsis (3) Sinus tachycardia (4) Lactic acid acidosis (5) High anion gap metabolic acidosis (6) STEFANI (acute kidney injury) (7) Abnormal LFTs (8) Coffee ground emesis (9) Gastrointestinal bleed (10) Altered mental status (11) Alcohol withdrawal seizure (12) Seizure disorder Assessment/Plan: NS 1L wide open now, inc IVF to 200cc/hr Titrate NE to keep MAP > 60, add Vaso 0.04 Continue Vano/Zosyn per ID, F/U Cx's Trend Cr, LA, LFT's STAT repeat ABG now May need intubation CXR, KUB F/U GI recs, EGD when able Monitor HH, transfuse as needed Banana bag daily Monitor for EtOH w/drawal, PRN ativan DVT Px: Hep SQ (held) STAT TTE Duplex and D-dimer FC CCT 60 Critical Care - Objective Last 24 Hour Vital Signs Date Time Temp Pulse Resp B/P (MAP) Pulse Ox O2 Delivery O2 Flow Rate FiO2 02/16/19 08:00 99.0 157 35 79/54 (62) 100 02/16/19 07:30 156 43 81/50 (60) 100 02/16/19 07:24 158 44 100 Facial 50 02/16/19 07:15 158 38 84/51 (62) 100 02/16/19 07:00 99.0 158 38 84/51 (62) 100 02/16/19 07:00 84/51 02/16/19 06:45 157 41 91/48 (62) 100 02/16/19 06:33 76/48 02/16/19 06:30 156 41 73/48 (56) 100 02/16/19 06:15 160 45 76/48 (57) 99 02/16/19 06:10 162 42 77/48 (58) 95 02/16/19 06:00 160 37 81/50 (60) 100 02/16/19 06:00 81/50 02/16/19 05:45 162 36 87/64 (72) 98 02/16/19 05:31 99.9 02/16/19 05:30 163 36 85/56 (66) 100 02/16/19 05:30 87/64 02/16/19 05:19 164 36 89/52 (64) 96 02/16/19 05:16 162 37 Bi-Pap 100 02/16/19 05:15 161 40 83/55 (64) 98 02/16/19 05:10 162 37 99 Facial 100 02/16/19 05:06 161 37 88/53 (65) 100 02/16/19 05:00 88/53 02/16/19 05:00 100.5 159 32 58/44 (49) 95 02/16/19 04:58 160 37 80/46 (57) 95 02/16/19 04:53 163 30 82/51 (61) 96 02/16/19 04:45 166 41 83/55 (64) 100 02/16/19 04:30 167 41 85/50 (62) 97 02/16/19 04:30 83/55 02/16/19 04:15 171 36 88/56 (67) 85 02/16/19 04:00 Room Air 02/16/19 04:00 88/56 02/16/19 04:00 173 02/16/19 04:00 168 50 97/55 (69) 95 02/16/19 03:45 173 50 74/52 (59) 99 02/16/19 03:30 74/52 02/16/19 03:30 182 28 96/60 (72) 88 02/16/19 03:15 173 56 92/68 (76) 93 02/16/19 03:00 177 46 79/50 (60) 94 02/16/19 03:00 79/38 02/16/19 02:45 173 56 76/53 (61) 97 02/16/19 02:30 173 42 87/48 (61) 96 02/16/19 02:09 171 47 96/32 (53) 98 02/16/19 02:06 173 33 85/47 (60) 97 02/16/19 02:02 79/55 02/16/19 02:00 168 43 77/52 (60) 99 02/16/19 01:45 178 37 88/41 (57) 98 02/16/19 01:30 173 40 79/42 (54) 98 02/16/19 01:15 172 46 96/54 (68) 99 02/16/19 01:00 99.4 175 38 97/53 (68) 98 02/16/19 00:45 185 41 98/65 (76) 90 02/16/19 00:39 184 22 93/64 (74) 99 02/16/19 00:15 180 25 105/54 (71) 96 02/16/19 00:00 145 02/16/19 00:00 Room Air 02/16/19 00:00 176 24 125/104 (111) 91 02/15/19 23:45 163 31 109/66 (80) 96 02/15/19 23:30 150 29 93/71 (78) 95 02/15/19 23:00 138 20 103/64 (77) 96 02/15/19 22:45 134 26 80/60 (67) 95 02/15/19 22:30 134 22 131/95 (107) 96 02/15/19 22:15 135 28 115/43 (67) 95 02/15/19 22:00 98.5 21 83/55 (64) 95 02/15/19 20:00 Room Air 02/15/19 20:00 98.1 130 22 85/65 (72) 98 02/15/19 20:00 134 02/15/19 16:00 Room Air 02/15/19 16:00 97.7 133 23 103/65 (78) 97 02/15/19 16:00 135 02/15/19 12:15 96/61 (73) 02/15/19 12:00 132 02/15/19 11:30 98.7 132 18 86/62 (70) 96 02/15/19 09:00 Room Air Status: other - confused on BiPAP Condition: critical HEENT: atraumatic, normocephalic Lungs: clear Heart: HR/BP unstable Abdomen: soft, non-tender, active bowel sounds Extremities: no C/C/E Micro: Microbiology Date/Time Source Procedure Growth Status 02/14/19 12:30 Urine,Clean Catch Urine Culture - Final Escherichia Coli Complete Accucheck: 33 Blood Sugars: BS not controlled Critical Care - Subjective ROS Limited/Unobtainable: Yes ICU Day: 2 Interval Events: 54 m h/o Sz DO, EtOH abuse p/w CGE and TC Sz'd, started on BSABx, ON tx'd to ICU with tachy and low BP, R fem CVC placed now on NE 30 and NS @ 100 7.105/26/89/8/92, LA 16 Cr 2.1 WCt 40, trop inc, pt agitated on BiPAP 20/12 Condition: critical IV Access: central - R fem CVC EKG Rhythm: Sinus Tachycardia FI02: 50 Sputum Amount: None Fluids: [id number] of HCO30-@150 Drips: NE@ 30 I&O: Intake and Output 02/15/19 02/16/19 18:59 06:59 Intake Total 1520.0 ml 4993.666 ml Output Total 126 ml 201 ml Balance 1394.0 ml 4792.666 ml Intake Oral 0 ml IV Total 1520.0 ml 4993.666 ml Output Urine Total 125 ml 200 ml Emesis 1 ml 1 ml # Voids 1 # Bowel Movements 3 Subjective: confused Labs: Laboratory Tests Test 02/15/19 11:15 02/15/19 13:45 02/15/19 17:55 02/16/19 00:42 Lactic Acid Level 7.90 mmol/L (0.4-2.0) H 7.30 mmol/L (0.66-2.22) H 9.60 mmol/L (0.4-2.0) H 14.70 mmol/L (0.4-2.0) H White Blood Count 25.5 K/UL (4.8-10.8) *H Red Blood Count 3.89 M/UL (4.70-6.10) L Hemoglobin 12.8 G/DL (14.2-18.0) L Hematocrit 38.4 % (42.0-52.0) L Mean Corpuscular Volume 99 FL (80-99) Mean Corpuscular Hemoglobin 32.9 PG (27.0-31.0) H Mean Corpuscular Hemoglobin Concent 33.4 G/DL (32.0-36.0) Red Cell Distribution Width 13.2 % (11.6-14.8) Platelet Count 106 K/UL (150-450) L Mean Platelet Volume 8.2 FL (6.5-10.1) Neutrophils (%) (Auto) % (45.0-75.0) Lymphocytes (%) (Auto) % (20.0-45.0) Monocytes (%) (Auto) % (1.0-10.0) Eosinophils (%) (Auto) % (0.0-3.0) Basophils (%) (Auto) % (0.0-2.0) Differential Total Cells Counted 100 Neutrophils % (Manual) 61 % (45-75) Lymphocytes % (Manual) 5 % (20-45) L Monocytes % (Manual) 4 % (1-10) Eosinophils % (Manual) 0 % (0-3) Basophils % (Manual) 0 % (0-2) Metamyelocytes % 5 % (0-0) H Band Neutrophils 25 % (0-8) H Platelet Estimate Decreased L Platelet Morphology Normal Poikilocytosis 1+ Macrocytosis 1+ Sodium Level 143 MMOL/L (136-145) Potassium Level 3.8 MMOL/L (3.5-5.1) Chloride Level 109 MMOL/L (98-107) H Carbon Dioxide Level 15 MMOL/L (21-32) L Anion Gap 19 mmol/L (5-15) H Blood Urea Nitrogen 11 mg/dL (7-18) Creatinine 1.2 MG/DL (0.55-1.30) Estimat Glomerular Filtration Rate > 60 mL/min (>60) Glucose Level 133 MG/DL (74-106) H Calcium Level 8.9 MG/DL (8.5-10.1) Test 02/16/19 04:35 02/16/19 05:20 Arterial Blood pH 7.105 (7.350-7.450) Arterial Blood Partial Pressure CO2 26.5 mmHg (35.0-45.0) L Arterial Blood Partial Pressure O2 89.5 mmHg (75.0-100.0) Arterial Blood HCO3 8.1 mmol/L (22.0-26.0) *L Arterial Blood Oxygen Saturation 92.7 % (95-100) L Arterial Blood Base Excess -19.9 (-2-2) *L Cesar Test Positive White Blood Count 41.8 K/UL (4.8-10.8) #*H Red Blood Count 3.03 M/UL (4.70-6.10) L Hemoglobin 10.0 G/DL (14.2-18.0) L Hematocrit 32.3 % (42.0-52.0) L Mean Corpuscular Volume 107 FL (80-99) #H Mean Corpuscular Hemoglobin 32.9 PG (27.0-31.0) H Mean Corpuscular Hemoglobin Concent 30.9 G/DL (32.0-36.0) L Red Cell Distribution Width 14.9 % (11.6-14.8) H Platelet Count 90 K/UL (150-450) L Mean Platelet Volume 9.5 FL (6.5-10.1) Neutrophils (%) (Auto) % (45.0-75.0) Lymphocytes (%) (Auto) % (20.0-45.0) Monocytes (%) (Auto) % (1.0-10.0) Eosinophils (%) (Auto) % (0.0-3.0) Basophils (%) (Auto) % (0.0-2.0) Differential Total Cells Counted 100 Neutrophils % (Manual) 65 % (45-75) Lymphocytes % (Manual) 6 % (20-45) L Monocytes % (Manual) 13 % (1-10) H Eosinophils % (Manual) 1 % (0-3) Basophils % (Manual) 1 % (0-2) Metamyelocytes % 1 % (0-0) H Band Neutrophils 13 % (0-8) H Platelet Estimate Decreased L Platelet Morphology Normal Anisocytosis 1+ Macrocytosis 1+ Erythrocyte Sedimentation Rate 23 MM/HR (0-20) H Prothrombin Time 20.2 SEC (9.30-11.50) H Prothromb Time International Ratio 2.0 (0.9-1.1) H Activated Partial Thromboplast Time 50 SEC (23-33) H Sodium Level 147 MMOL/L (136-145) H Potassium Level 3.8 MMOL/L (3.5-5.1) Chloride Level 111 MMOL/L (98-107) H Carbon Dioxide Level 9 MMOL/L (21-32) *L Anion Gap 27 mmol/L (5-15) H Blood Urea Nitrogen 14 mg/dL (7-18) Creatinine 2.1 MG/DL (0.55-1.30) #H Estimat Glomerular Filtration Rate 40.0 mL/min (>60) Glucose Level 33 MG/DL (74-106) #*L Lactic Acid Level 16.00 mmol/L (0.66-2.22) H Calcium Level 8.4 MG/DL (8.5-10.1) L Phosphorus Level 3.4 MG/DL (2.5-4.9) Total Bilirubin 2.1 MG/DL (0.2-1.0) H Direct Bilirubin 1.3 MG/DL (0.0-0.3) H Aspartate Amino Transf (AST/SGOT) 110 U/L (15-37) H Alanine Aminotransferase (ALT/SGPT) 29 U/L (12-78) Alkaline Phosphatase 75 U/L (46-116) Total Creatine Kinase 210 U/L (26-308) Troponin I 0.167 ng/mL (0.000-0.056) C-Reactive Protein, Quantitative 6.8 mg/dL (0.00-0.90) H Total Protein 5.5 G/DL (6.4-8.2) L Albumin 2.3 G/DL (3.4-5.0) L Lipase 39 U/L (73-393) L Han Harris MD Feb 16, 2019 08:45
[2019-02-16] MEDS ORDERED: Docusate 100mg cap ORAL SCH (09:00)
[2019-02-16] MEDS ORDERED: Pantoprazole Inj IVP SCH (09:00)
[2019-02-16] MEDS: Pantoprazole Inj IVP SCH ×2 (09:00→21:30)
[2019-02-16] MEDS ORDERED: Norepinephrine Bitartrate 8 MG in D5W 500ml 500 ML IV SCH (09:30)
--- NOTE | 2019-02-16 09:30 | NUR ---
NURSE NOTES: Dr Harris came to see pt. Labs reordered stat. Echo at bedside done. Will continue to monitor.
[2019-02-16] MEDS ORDERED: Phytonadione 1 MG in D5W 55 ML IVPB ONE (10:00)
[2019-02-16 10:20] LABS: HEMATOCRIT 28.3 % (42.0-52.0); HEMOGLOBIN 8.8 G/DL (14.2-18.0); MEAN CORPUSCULAR VOLUME 107 FL (80-99); PLATELET COUNT 73 K/UL (150-450); RED BLOOD COUNT 2.66 M/UL (4.70-6.10); RED CELL DISTRIBUTION WIDTH 14.4 % (11.6-14.8)
[2019-02-16] MEDS: Thiamine 100mg in D5W 55ml IVPB SCH (10:20)
[2019-02-16] MEDS: Folic Acid 1 MG, Magnesium Sulfate 2,000 MG, Multivitamin - 12 Injection 10 ML in Sodiu... IV SCH (10:20)
[2019-02-16 10:21] LABS: WHITE BLOOD COUNT 40.2 K/UL (4.8-10.8)
[2019-02-16 10:48] LABS: ALBUMIN 1.8 G/DL (3.4-5.0); ALBUMIN/GLOBULIN RATIO 0.6 (1.0-2.7); ALKALINE PHOSPHATASE 39 U/L (46-116); ANION GAP 23 mmol/L (5-15); ASPARTATE AMINO TRANSFERASE 109 U/L (15-37); BILIRUBIN,TOTAL 1.7 MG/DL (0.2-1.0); BLOOD UREA NITROGEN 16 mg/dL (7-18); CALCIUM 7.7 MG/DL (8.5-10.1); CARBON DIOXIDE 13 MMOL/L (21-32); CHLORIDE 113 MMOL/L (98-107); CREATININE 2.2 MG/DL (0.55-1.30); POTASSIUM 3.9 MMOL/L (3.5-5.1); SODIUM 149 MMOL/L (136-145)
--- NOTE | 2019-02-16 11:16 | NUR ---
NURSE NOTES: Discussed ABG result with Dr Harris, bipap settings changed to 20/5. Pt given ativan for agitation. BP 80s/50s, HR 130s. Will continue to monitor.
[2019-02-16 11:42] LABS: ALANINE AMINOTRANSFERASE 27 U/L (12-78); BILIRUBIN,DIRECT 1.1 MG/DL (0.0-0.3)
[2019-02-16] MEDS ORDERED: Isovue-300 100ml vial INJ PRN ×2 (12:00)
--- NOTE | 2019-02-16 12:09 | Emergency Room Report ---
History of Present Illness General Chief Complaint: Seizure Source: Patient, Medical Record, PMD Present Illness HPI 54-year-old male past medical history of seizures, initially admitted to the inpatient floor sent to the ICU for hypotension, patient found to be tachypneic , short of breath, at 1145 Dr. Marcus called me to intubate patient, due to resp failure. Patient found altered unable to give a history Allergies: Coded Allergies: No Known Allergies (Unverified , 02/10/15) Patient History Limited by: medical condition Past Medical History: old chart reviewed Reviewed Nursing Documentation: PMH: Agreed; PSxH: Agreed Nursing Documentation-PM Past Medical History: No History, Except For Hx Cardiac Problems: No Hx Cancer: No Hx Gastrointestinal Problems: No History Of Psychiatric Problem: Yes - etoh abuse Hx Neurological Problems: Yes Hx Seizures: Yes Review of Systems All Other Systems: limited - Patient altered Physical Exam Vital Signs Date Time Temp Pulse Resp B/P (MAP) Pulse Ox O2 Delivery O2 Flow Rate FiO2 02/14/19 11:06 99.3 134 18 124/68 (86) 92 Room Air 02/14/19 15:15 2.0 02/16/19 05:10 100 General Appearance: severe distress, thin Eyes: bilateral eye PERRL, bilateral eye EOMI ENT: uvula midline, dry mucus membranes Neck: supple Respiratory: respiratory distress, accessory muscle use Cardiovascular #1: no murmur, tachycardia Gastrointestinal: non tender, soft Neuologic: other - confused, unable to answer questions Skin: normal color, warm/dry Procedures Critical Care Time Critical Care Time The patient was immediately assessed by myself and the nurse, and cardiac monitoring initiated due to the potential for rapid decompensation of the patient's clinical condition. During the course of the patient's stay, I spent a considerable amount of time at the bedside performing serial re-evaluations of the patient's hemodynamic and clinical status because of the recognized potential threat to life or limb in this condition. I then had a chance to review not only all of the available current laboratory and radiographic studies obtained today, but I also reviewed old records available to me at the time. Additionally, any ancillary information available including lyric writer records were reviewed. Sequential vital signs were obtained. Patient was at risk of respiratory failure she was tachypneic, and short of breath, lactic acidosis Critical Care time of 30 minutes was performed exclusive of billable procedures. Intubation Intubation : Consent: Emergent Time of Intubation: 12:00 Intubation Method: orotracheal Tube Size (cm): 7.5 Medications: Etomidate, Rocuronium Breath Sounds after Intubation: equal Intubation Complications: no complications Post Intubation Xray: Yes Progress/Xray Impression: Tube well-seated, NG tube in place Attempts: One Patient Tolerated: Well Complications: None Medical Decision Making Diagnostic Impression: Primary Impression: Lactic acid acidosis Additional Impression: Sepsis Ruled Out: Seizure disorder, Non-compliance Last Vital Signs Date Time Temp Pulse Resp B/P (MAP) Pulse Ox O2 Delivery O2 Flow Rate FiO2 02/16/19 11:26 86/51 02/16/19 11:11 139 28 98 02/16/19 10:57 Facial 100 02/16/19 08:00 99.0 02/14/19 15:15 2.0 Disposition: ADMITTED INPATIENT Condition: Critical Referrals: NON PHYSICIAN (PCP) Myron Smith M.D. Feb 16, 2019 12:09
--- NOTE | 2019-02-16 12:19 | Diagnostic Imaging Report ---
Indication: Dyspnea Comparison: 12/19/2017 A single view chest radiograph was obtained. Findings: Interstitial opacities demonstrated with the slightly prominent central pulmonary vascularity. Heart size is stable and within normal limits in size. IMPRESSION: Suspected interstitial edema.
--- NOTE | 2019-02-16 12:20 | Surgery Progress Note ---
Surgery Progress Note Subjective Procedure Performed left femoral central venous catheter insertion Additional Comments patient continues to decline. tachycardic hypotensive on pressors worsening sepsis / leukocytosis renal function declining bacteremia on IV Abx IV fluids needs to be intubated now Objective Last 24 Hour Vital Signs Date Time Temp Pulse Resp B/P (MAP) Pulse Ox O2 Delivery O2 Flow Rate FiO2 02/16/19 11:26 86/51 02/16/19 11:11 139 28 86/51 (63) 98 02/16/19 11:00 139 28 98 02/16/19 10:57 143 39 100 Facial 100 02/16/19 10:30 143 22 86/59 (68) 99 02/16/19 10:00 143 36 88/37 (54) 100 02/16/19 09:23 79/54 02/16/19 09:15 139 38 100 Facial 50 02/16/19 09:00 144 43 63/34 (44) 100 02/16/19 08:30 154 35 81/50 (60) 100 02/16/19 08:00 Bi-pap 02/16/19 08:00 156 02/16/19 08:00 99.0 157 35 79/54 (62) 100 02/16/19 07:30 156 43 81/50 (60) 100 02/16/19 07:24 158 44 100 Facial 50 02/16/19 07:15 158 38 84/51 (62) 100 02/16/19 07:00 99.0 158 38 84/51 (62) 100 02/16/19 07:00 84/51 02/16/19 06:45 157 41 91/48 (62) 100 02/16/19 06:33 76/48 02/16/19 06:30 156 41 73/48 (56) 100 02/16/19 06:15 160 45 76/48 (57) 99 02/16/19 06:10 162 42 77/48 (58) 95 02/16/19 06:00 160 37 81/50 (60) 100 02/16/19 06:00 81/50 02/16/19 05:45 162 36 87/64 (72) 98 02/16/19 05:31 99.9 02/16/19 05:30 163 36 85/56 (66) 100 02/16/19 05:30 87/64 02/16/19 05:19 164 36 89/52 (64) 96 02/16/19 05:16 162 37 Bi-Pap 100 02/16/19 05:15 161 40 83/55 (64) 98 02/16/19 05:10 162 37 99 Facial 100 02/16/19 05:06 161 37 88/53 (65) 100 02/16/19 05:00 88/53 02/16/19 05:00 100.5 159 32 58/44 (49) 95 02/16/19 04:58 160 37 80/46 (57) 95 02/16/19 04:53 163 30 82/51 (61) 96 02/16/19 04:45 166 41 83/55 (64) 100 02/16/19 04:30 167 41 85/50 (62) 97 02/16/19 04:30 83/55 02/16/19 04:15 171 36 88/56 (67) 85 02/16/19 04:00 Room Air 02/16/19 04:00 88/56 02/16/19 04:00 173 02/16/19 04:00 168 50 97/55 (69) 95 02/16/19 03:45 173 50 74/52 (59) 99 02/16/19 03:30 74/52 02/16/19 03:30 182 28 96/60 (72) 88 02/16/19 03:15 173 56 92/68 (76) 93 02/16/19 03:00 177 46 79/50 (60) 94 02/16/19 03:00 79/38 02/16/19 02:45 173 56 76/53 (61) 97 02/16/19 02:30 173 42 87/48 (61) 96 02/16/19 02:09 171 47 96/32 (53) 98 02/16/19 02:06 173 33 85/47 (60) 97 02/16/19 02:02 79/55 02/16/19 02:00 168 43 77/52 (60) 99 02/16/19 01:45 178 37 88/41 (57) 98 02/16/19 01:30 173 40 79/42 (54) 98 02/16/19 01:15 172 46 96/54 (68) 99 02/16/19 01:00 99.4 175 38 97/53 (68) 98 02/16/19 00:45 185 41 98/65 (76) 90 02/16/19 00:39 184 22 93/64 (74) 99 02/16/19 00:15 180 25 105/54 (71) 96 02/16/19 00:00 145 02/16/19 00:00 Room Air 02/16/19 00:00 176 24 125/104 (111) 91 02/15/19 23:45 163 31 109/66 (80) 96 02/15/19 23:30 150 29 93/71 (78) 95 02/15/19 23:00 138 20 103/64 (77) 96 02/15/19 22:45 134 26 80/60 (67) 95 02/15/19 22:30 134 22 131/95 (107) 96 02/15/19 22:15 135 28 115/43 (67) 95 02/15/19 22:00 98.5 21 83/55 (64) 95 02/15/19 20:00 Room Air 02/15/19 20:00 98.1 130 22 85/65 (72) 98 02/15/19 20:00 134 02/15/19 16:00 Room Air 02/15/19 16:00 97.7 133 23 103/65 (78) 97 02/15/19 16:00 135 I&O Intake and Output 02/15/19 02/16/19 19:00 07:00 Intake Total 1520.0 ml 5258.666 ml Output Total 126 ml 211 ml Balance 1394.0 ml 5047.666 ml Intake Oral 0 ml IV Total 1520.0 ml 5258.666 ml Output Urine Total 125 ml 210 ml Emesis 1 ml 1 ml # Voids 1 # Bowel Movements 3 Cardiovascular: RSR Respiratory: decreased breath sounds Abdomen: soft, distended, non-tender, decreased bowel sounds Extremities: edema, no cyanosis Laboratory Tests Test 02/15/19 13:45 02/15/19 17:55 02/16/19 00:42 02/16/19 04:35 Lactic Acid Level 7.30 mmol/L (0.66-2.22) H 9.60 mmol/L (0.4-2.0) H 14.70 mmol/L (0.4-2.0) H White Blood Count 25.5 K/UL (4.8-10.8) *H Red Blood Count 3.89 M/UL (4.70-6.10) L Hemoglobin 12.8 G/DL (14.2-18.0) L Hematocrit 38.4 % (42.0-52.0) L Mean Corpuscular Volume 99 FL (80-99) Mean Corpuscular Hemoglobin 32.9 PG (27.0-31.0) H Mean Corpuscular Hemoglobin Concent 33.4 G/DL (32.0-36.0) Red Cell Distribution Width 13.2 % (11.6-14.8) Platelet Count 106 K/UL (150-450) L Mean Platelet Volume 8.2 FL (6.5-10.1) Neutrophils (%) (Auto) % (45.0-75.0) Lymphocytes (%) (Auto) % (20.0-45.0) Monocytes (%) (Auto) % (1.0-10.0) Eosinophils (%) (Auto) % (0.0-3.0) Basophils (%) (Auto) % (0.0-2.0) Differential Total Cells Counted 100 Neutrophils % (Manual) 61 % (45-75) Lymphocytes % (Manual) 5 % (20-45) L Monocytes % (Manual) 4 % (1-10) Eosinophils % (Manual) 0 % (0-3) Basophils % (Manual) 0 % (0-2) Metamyelocytes % 5 % (0-0) H Band Neutrophils 25 % (0-8) H Platelet Estimate Decreased L Platelet Morphology Normal Poikilocytosis 1+ Macrocytosis 1+ Sodium Level 143 MMOL/L (136-145) Potassium Level 3.8 MMOL/L (3.5-5.1) Chloride Level 109 MMOL/L (98-107) H Carbon Dioxide Level 15 MMOL/L (21-32) L Anion Gap 19 mmol/L (5-15) H Blood Urea Nitrogen 11 mg/dL (7-18) Creatinine 1.2 MG/DL (0.55-1.30) Estimat Glomerular Filtration Rate > 60 mL/min (>60) Glucose Level 133 MG/DL (74-106) H Calcium Level 8.9 MG/DL (8.5-10.1) Arterial Blood pH 7.105 (7.350-7.450) Arterial Blood Partial Pressure CO2 26.5 mmHg (35.0-45.0) L Arterial Blood Partial Pressure O2 89.5 mmHg (75.0-100.0) Arterial Blood HCO3 8.1 mmol/L (22.0-26.0) *L Arterial Blood Oxygen Saturation 92.7 % (95-100) L Arterial Blood Base Excess -19.9 (-2-2) *L Cesar Test Positive Test 02/16/19 05:20 02/16/19 09:50 02/16/19 10:25 02/16/19 11:15 White Blood Count 41.8 K/UL (4.8-10.8) #*H 40.2 K/UL (4.8-10.8) *H Red Blood Count 3.03 M/UL (4.70-6.10) L 2.66 M/UL (4.70-6.10) L Hemoglobin 10.0 G/DL (14.2-18.0) L 8.8 G/DL (14.2-18.0) L Hematocrit 32.3 % (42.0-52.0) L 28.3 % (42.0-52.0) L Mean Corpuscular Volume 107 FL (80-99) #H 107 FL (80-99) H Mean Corpuscular Hemoglobin 32.9 PG (27.0-31.0) H 33.2 PG (27.0-31.0) H Mean Corpuscular Hemoglobin Concent 30.9 G/DL (32.0-36.0) L 31.2 G/DL (32.0-36.0) L Red Cell Distribution Width 14.9 % (11.6-14.8) H 14.4 % (11.6-14.8) Platelet Count 90 K/UL (150-450) L 73 K/UL (150-450) L Mean Platelet Volume 9.5 FL (6.5-10.1) 8.2 FL (6.5-10.1) Neutrophils (%) (Auto) % (45.0-75.0) % (45.0-75.0) Lymphocytes (%) (Auto) % (20.0-45.0) % (20.0-45.0) Monocytes (%) (Auto) % (1.0-10.0) % (1.0-10.0) Eosinophils (%) (Auto) % (0.0-3.0) % (0.0-3.0) Basophils (%) (Auto) % (0.0-2.0) % (0.0-2.0) Differential Total Cells Counted 100 100 Neutrophils % (Manual) 65 % (45-75) 58 % (45-75) Lymphocytes % (Manual) 6 % (20-45) L 11 % (20-45) L Monocytes % (Manual) 13 % (1-10) H 12 % (1-10) H Eosinophils % (Manual) 1 % (0-3) 0 % (0-3) Basophils % (Manual) 1 % (0-2) 0 % (0-2) Metamyelocytes % 1 % (0-0) H 2 % (0-0) H Band Neutrophils 13 % (0-8) H 17 % (0-8) H Platelet Estimate Decreased L Decreased L Platelet Morphology Normal Normal Anisocytosis 1+ 1+ Macrocytosis 1+ 1+ Erythrocyte Sedimentation Rate 23 MM/HR (0-20) H Prothrombin Time 20.2 SEC (9.30-11.50) H Prothromb Time International Ratio 2.0 (0.9-1.1) H Activated Partial Thromboplast Time 50 SEC (23-33) H Sodium Level 147 MMOL/L (136-145) H 149 MMOL/L (136-145) H Potassium Level 3.8 MMOL/L (3.5-5.1) 3.9 MMOL/L (3.5-5.1) Chloride Level 111 MMOL/L (98-107) H 113 MMOL/L (98-107) H Carbon Dioxide Level 9 MMOL/L (21-32) *L 13 MMOL/L (21-32) L Anion Gap 27 mmol/L (5-15) H 23 mmol/L (5-15) H Blood Urea Nitrogen 14 mg/dL (7-18) 16 mg/dL (7-18) Creatinine 2.1 MG/DL (0.55-1.30) #H 2.2 MG/DL (0.55-1.30) H Estimat Glomerular Filtration Rate 40.0 mL/min (>60) 37.8 mL/min (>60) Glucose Level 33 MG/DL (74-106) #*L 112 MG/DL (74-106) H Lactic Acid Level 16.00 mmol/L (0.66-2.22) H 17.00 mmol/L (0.4-2.0) H Calcium Level 8.4 MG/DL (8.5-10.1) L 7.7 MG/DL (8.5-10.1) L Phosphorus Level 3.4 MG/DL (2.5-4.9) Total Bilirubin 2.1 MG/DL (0.2-1.0) H 1.7 MG/DL (0.2-1.0) H Direct Bilirubin 1.3 MG/DL (0.0-0.3) H 1.1 MG/DL (0.0-0.3) H Aspartate Amino Transf (AST/SGOT) 110 U/L (15-37) H 109 U/L (15-37) H Alanine Aminotransferase (ALT/SGPT) 29 U/L (12-78) 27 U/L (12-78) Alkaline Phosphatase 75 U/L (46-116) 39 U/L (46-116) L Total Creatine Kinase 210 U/L (26-308) Troponin I 0.167 ng/mL (0.000-0.056) C-Reactive Protein, Quantitative 6.8 mg/dL (0.00-0.90) H Total Protein 5.5 G/DL (6.4-8.2) L 4.6 G/DL (6.4-8.2) L Albumin 2.3 G/DL (3.4-5.0) L 1.8 G/DL (3.4-5.0) L Lipase 39 U/L (73-393) L Hypochromasia 1+ D-Dimer 17.05 mg/L FEU (0.00-0.49) H Globulin 2.8 g/dL Albumin/Globulin Ratio 0.6 (1.0-2.7) L Arterial Blood pH 7.240 (7.350-7.450) Arterial Blood Partial Pressure CO2 19.4 mmHg (35.0-45.0) *L Arterial Blood Partial Pressure O2 145.2 mmHg (75.0-100.0) H Arterial Blood HCO3 8.2 mmol/L (22.0-26.0) *L Arterial Blood Oxygen Saturation 98.0 % (95-100) Arterial Blood Base Excess -17.3 (-2-2) *L Cesar Test Positive Vancomycin Level Trough 13.3 ug/mL (5.0-12.0) H Plan Problems: (1) Non-compliance Assessment & Plan: Noncompliance with seizure medication with known history of seizures Now had seizure Appreciate neurology input (2) Electrolyte and fluid disorder Assessment & Plan: Likely due to EtOH use and dehydration IV hydration Trend labs (3) Fever (4) Oral thrush (5) Diarrhea (6) Aspiration pneumonia (7) Seizure disorder (8) Tachycardia (9) Altered mental status (10) Alcohol withdrawal seizure (11) Alcohol withdrawal seizure (12) Episode of confusion (13) Coffee ground emesis (14) Gastrointestinal bleed Assessment & Plan: Patient on admission identified to have maroon-colored stool and coffee-ground emesis. Labs noted mild anemia with H&H trending down. No acute active bleed noted but given patient's history high risk for potential ulcers. PPI Appreciate GI input considerations for EGD once stable We will follow with recommendations thank you (15) Sinus tachycardia (16) Septic shock (17) Sepsis Assessment & Plan: Patient septic and declining worsening leukocytosis anemia renal function declining electrolyte disturbance US noted on pressors now on iv fluids with bolus on IV abx intubated at bedside cont with aggressive resuscitation needs CT C/A/P STAT (18) Lactic acid acidosis (19) STEFANI (acute kidney injury) (20) Abnormal LFTs (21) High anion gap metabolic acidosis Juanpablo Marcus Feb 16, 2019 12:20
--- NOTE | 2019-02-16 12:25 | NUR ---
RESPIRATORY NOTE: was called that pt needed to be intubated. intubated pt at 1200 with RN and ER MD at bedside. ETT size 7.5 placed 24cm at the lip and secured via anchor fast. xray to be taken to confirm placement. no redness or skin tears prior to placing anchor fast. MD given verbal orders for vent settings AC 20 420 50% +5. pt current sedated with no resp distress noted. will cont to monitor
[2019-02-16] MEDS ORDERED: Vancomycin 1gm/D5W 275ml IVPB ONE ×2 (13:00)
[2019-02-16] MEDS ORDERED: Phytonadione 10 MG in D5W 55 ML IVPB ONE (13:00)
--- NOTE | 2019-02-16 13:16 | NUR ---
P.T Note: Pt was transferred to ICU for further medical management. P.T on hold. ROBERT Swann.T. please reorder when medically stable. Thank you.
--- NOTE | 2019-02-16 13:24 | NUR ---
CASE MANAGEMENT: REVIEW 02/16/2019 SI:RECURRENT SZ. GRAM NEG LUIS UTI. T 99.2 HR 149 RR 25 B/P 108/70 SATS 87% ON MECH VENT FIO2 50 WBC 40.2 NA 149 CL 113 CO2 13 CR 2.2 GLU 112 LACTIC ACID 17 CA 7.7 TBILI 1.7 DBILI 1.1 ALT 109 ALP 39 TROPONIN 0.167 IS: IVF @ 75 mL/HR ZOSYN IV Q8H VANCO IV Q12H DILANTIN PO Q8H VASOPRESSIN IV Q24H LEVOPHED PER PARAMETERS ICU DCP: PATIENT TO BE DISCHARGED TO HOME ONCE MEDICALLY CLEARED PLAN OF CARE: VENT SUPPORT CT ABD
--- NOTE | 2019-02-16 13:28 | NUR ---
INSURANCE CLINICALS AND REVIEWS FAXED TO F/S FAXED TO [facility]: [place] P- [phone]..............REVIEW/CLINICAL Addendum: 02/16/19 at 1331 by Lisa Rivers CORRECTION CLINICALS AND REVIEWS FAXED TO F/S FAXED TO [facility]: [place] P- [phone] X [phone]..............REVIEW/CLINICAL
--- NOTE | 2019-02-16 13:45 | NUR ---
NURSE NOTES: Pt still sedated post intubation. BP now is 104/56 on vasopressin and levophed. HR 150s. Will continue to monitor.
--- NOTE | 2019-02-16 14:03 | NUR ---
DISCHARGE SWALLOW/SPEECH THERAPY NOTE: PATIENT SEEN FOR SWALLOWING, SEE SWALLOWING EVALUATION. PATIENT D/C FROM SKILLED ST SINCE HE TRANSFERRED TO ICU DUE TO CHANGE IN MEDICAL STATUS AND INTUBATION. PLAN: PLEASE RECONSULT WHEN INDICATED.
[2019-02-16] MEDS ORDERED: Etomidate 40mg/20ml Inj IV ONE (14:10)
[2019-02-16] MEDS ORDERED: Zemuron 50mg/5ml Inj IV ONE (14:10)
--- NOTE | 2019-02-16 14:21 | NUR ---
RADIOLOGY DEPT, ABDOMEN X-RAY DONE.-P.DYE
--- NOTE | 2019-02-16 15:00 | Consultation ---
Consult Note Consult Note asked to eval for rising Cr Patient seen in ICU-B Intubated on Vent On pressors data reviewed discussed with melt superintendant/Plan - STEFANI (acute kidney injury) - Septic shock - Lactic acid acidosis - Abnormal LFTs - Gastrointestinal bleed - Alcohol withdrawal seizure Hemodynamic support Pressors / Fluids Aim to correct the electrolyte and acid base imbalance monitor renal parameters gastric support per orders Scotty Bailon MD Feb 16, 2019 15:00
--- NOTE | 2019-02-16 15:13 | Diagnostic Imaging Report ---
Indication: Abdominal pain Comparison: None Single view of the abdomen obtained Findings: NG tube is in good position. There is air in the stomach. There is relative absence of bowel gas otherwise limiting evaluation. No mass, ectopic calcifications, or abnormal gas collections are identified. The bones are unremarkable. There is a left femoral line present. There is a catheter projected over the urethra well short of the bladder. Please correlate clinically. Impression: Relatively nondiagnostic exam due to absence of bowel gas. Question the position of the Aguilar catheter. This is projected over the urethra.
--- NOTE | 2019-02-16 15:27 | NUR ---
NURSE NOTES: Pt had large liquid maroon stool. made aware. Dr ordered stat cbc and lactic acid. BP 90s/60s, HR 140s on max levophed and max vasopressin. Will continue to monitor.
[2019-02-16 15:38] LABS: HEMATOCRIT 29.6 % (42.0-52.0); HEMOGLOBIN 9.2 G/DL (14.2-18.0); MEAN CORPUSCULAR VOLUME 106 FL (80-99); PLATELET COUNT 75 K/UL (150-450); RED CELL DISTRIBUTION WIDTH 14.8 % (11.6-14.8)
--- NOTE | 2019-02-16 15:43 | Cardiology Report ---
APPROVED REPORT EXAM: Two-dimensional and M-mode echocardiogram with Doppler and color Doppler. INDICATION Tachycardia M-Mode DIMENSIONS IVSd1.2 (0.7-1.1cm)Left Atrium (MM)2.4 (1.6-4.0cm) LVDd3.0 (3.5-5.6cm)Aortic Root4.0 (2.0-3.7cm) PWd1.0 (0.7-1.1cm)Aortic Cusp Exc.1.9 (1.5-2.0cm) IVSs1.9 cm LVDs1.3 (2.5-4.0cm) PWs1.6 cm Technically difficult study due to patient on ventilator. Study quality precludes accurate assessment of regional wall motion. Normal left ventricular chamber size, systolic function and wall motion. Left ventricular ejection fraction estimated to be 65%. No evidence of left ventricular hypertrophy. Trivial pericardial effusion. All other cardiac chamber sizes are within normal limits. Focal aortic valve sclerosis with adequate cusp excursion. Thickened mitral valve leaflets with normal excursion. Mild mitral annulus and aortic root calcification. Mild aortic root dilation. Normal pulmonic valve structure. Normal tricuspid valve structure. IVC is normal in size with physiological collapse. A color flow and spectral Doppler study was performed and revealed: No aortic regurgitation. Trace mitral regurgitation. Mitral diastolic velocities suggest mild left ventricular diastolic dysfunction (Grade I). Mild to moderate tricuspid regurgitation. Tricuspid systolic velocities suggests peak right ventricular systolic pressure of 55 mmHg, consistent with moderate pulmonary hypertension. No pulmonic regurgitation present.
[2019-02-16 15:45] LABS: WHITE BLOOD COUNT 40.1 K/UL (4.8-10.8)
--- NOTE | 2019-02-16 15:59 | Cardiology Report ---
APPROVED REPORT EKG Measurement Heart [id number] Sinus tachycardia Possible Inferior infarct, age undetermined Possible Anterolateral infarct, age undetermined Abnormal ECG
--- NOTE | 2019-02-16 16:04 | Cardiology Report ---
APPROVED REPORT EKG Measurement Heart [id number] Sinus tachycardia Otherwise normal ECG
--- NOTE | 2019-02-16 16:08 | Neurology Progress Note ---
Interim History Interim History ROS Limited/Unobtainable: Yes Interim History septi shock intubated, minimal sedation on pressors Poor wihrawal pupils reactive Objective Physical Exam Last Vital Signs Date Time Temp Pulse Resp B/P (MAP) Pulse Ox O2 Delivery O2 Flow Rate FiO2 02/16/19 15:55 95/67 02/16/19 15:13 148 26 40 02/16/19 15:00 100 02/16/19 12:00 99.2 02/16/19 12:00 Mechanical Ventilator 02/14/19 15:15 2.0 Laboratory Tests Test 02/15/19 17:55 02/16/19 00:42 02/16/19 04:35 02/16/19 05:20 White Blood Count 25.5 K/UL (4.8-10.8) *H 41.8 K/UL (4.8-10.8) #*H Red Blood Count 3.89 M/UL (4.70-6.10) L 3.03 M/UL (4.70-6.10) L Hemoglobin 12.8 G/DL (14.2-18.0) L 10.0 G/DL (14.2-18.0) L Hematocrit 38.4 % (42.0-52.0) L 32.3 % (42.0-52.0) L Mean Corpuscular Volume 99 FL (80-99) 107 FL (80-99) #H Mean Corpuscular Hemoglobin 32.9 PG (27.0-31.0) H 32.9 PG (27.0-31.0) H Mean Corpuscular Hemoglobin Concent 33.4 G/DL (32.0-36.0) 30.9 G/DL (32.0-36.0) L Red Cell Distribution Width 13.2 % (11.6-14.8) 14.9 % (11.6-14.8) H Platelet Count 106 K/UL (150-450) L 90 K/UL (150-450) L Mean Platelet Volume 8.2 FL (6.5-10.1) 9.5 FL (6.5-10.1) Neutrophils (%) (Auto) % (45.0-75.0) % (45.0-75.0) Lymphocytes (%) (Auto) % (20.0-45.0) % (20.0-45.0) Monocytes (%) (Auto) % (1.0-10.0) % (1.0-10.0) Eosinophils (%) (Auto) % (0.0-3.0) % (0.0-3.0) Basophils (%) (Auto) % (0.0-2.0) % (0.0-2.0) Differential Total Cells Counted 100 100 Neutrophils % (Manual) 61 % (45-75) 65 % (45-75) Lymphocytes % (Manual) 5 % (20-45) L 6 % (20-45) L Monocytes % (Manual) 4 % (1-10) 13 % (1-10) H Eosinophils % (Manual) 0 % (0-3) 1 % (0-3) Basophils % (Manual) 0 % (0-2) 1 % (0-2) Metamyelocytes % 5 % (0-0) H 1 % (0-0) H Band Neutrophils 25 % (0-8) H 13 % (0-8) H Platelet Estimate Decreased L Decreased L Platelet Morphology Normal Normal Poikilocytosis 1+ Macrocytosis 1+ 1+ Sodium Level 143 MMOL/L (136-145) 147 MMOL/L (136-145) H Potassium Level 3.8 MMOL/L (3.5-5.1) 3.8 MMOL/L (3.5-5.1) Chloride Level 109 MMOL/L (98-107) H 111 MMOL/L (98-107) H Carbon Dioxide Level 15 MMOL/L (21-32) L 9 MMOL/L (21-32) *L Anion Gap 19 mmol/L (5-15) H 27 mmol/L (5-15) H Blood Urea Nitrogen 11 mg/dL (7-18) 14 mg/dL (7-18) Creatinine 1.2 MG/DL (0.55-1.30) 2.1 MG/DL (0.55-1.30) #H Estimat Glomerular Filtration Rate > 60 mL/min (>60) 40.0 mL/min (>60) Glucose Level 133 MG/DL (74-106) H 33 MG/DL (74-106) #*L Lactic Acid Level 9.60 mmol/L (0.4-2.0) H 14.70 mmol/L (0.4-2.0) H 16.00 mmol/L (0.66-2.22) H Calcium Level 8.9 MG/DL (8.5-10.1) 8.4 MG/DL (8.5-10.1) L Arterial Blood pH 7.105 (7.350-7.450) Arterial Blood Partial Pressure CO2 26.5 mmHg (35.0-45.0) L Arterial Blood Partial Pressure O2 89.5 mmHg (75.0-100.0) Arterial Blood HCO3 8.1 mmol/L (22.0-26.0) *L Arterial Blood Oxygen Saturation 92.7 % (95-100) L Arterial Blood Base Excess -19.9 (-2-2) *L Cesar Test Positive Anisocytosis 1+ Erythrocyte Sedimentation Rate 23 MM/HR (0-20) H Prothrombin Time 20.2 SEC (9.30-11.50) H Prothromb Time International Ratio 2.0 (0.9-1.1) H Activated Partial Thromboplast Time 50 SEC (23-33) H Phosphorus Level 3.4 MG/DL (2.5-4.9) Total Bilirubin 2.1 MG/DL (0.2-1.0) H Direct Bilirubin 1.3 MG/DL (0.0-0.3) H Aspartate Amino Transf (AST/SGOT) 110 U/L (15-37) H Alanine Aminotransferase (ALT/SGPT) 29 U/L (12-78) Alkaline Phosphatase 75 U/L (46-116) Total Creatine Kinase 210 U/L (26-308) Troponin I 0.167 ng/mL (0.000-0.056) C-Reactive Protein, Quantitative 6.8 mg/dL (0.00-0.90) H Total Protein 5.5 G/DL (6.4-8.2) L Albumin 2.3 G/DL (3.4-5.0) L Lipase 39 U/L (73-393) L Test 02/16/19 09:50 02/16/19 10:25 02/16/19 11:15 02/16/19 13:50 White Blood Count 40.2 K/UL (4.8-10.8) *H Red Blood Count 2.66 M/UL (4.70-6.10) L Hemoglobin 8.8 G/DL (14.2-18.0) L Hematocrit 28.3 % (42.0-52.0) L Mean Corpuscular Volume 107 FL (80-99) H Mean Corpuscular Hemoglobin 33.2 PG (27.0-31.0) H Mean Corpuscular Hemoglobin Concent 31.2 G/DL (32.0-36.0) L Red Cell Distribution Width 14.4 % (11.6-14.8) Platelet Count 73 K/UL (150-450) L Mean Platelet Volume 8.2 FL (6.5-10.1) Neutrophils (%) (Auto) % (45.0-75.0) Lymphocytes (%) (Auto) % (20.0-45.0) Monocytes (%) (Auto) % (1.0-10.0) Eosinophils (%) (Auto) % (0.0-3.0) Basophils (%) (Auto) % (0.0-2.0) Differential Total Cells Counted 100 Neutrophils % (Manual) 58 % (45-75) Lymphocytes % (Manual) 11 % (20-45) L Monocytes % (Manual) 12 % (1-10) H Eosinophils % (Manual) 0 % (0-3) Basophils % (Manual) 0 % (0-2) Metamyelocytes % 2 % (0-0) H Band Neutrophils 17 % (0-8) H Platelet Estimate Decreased L Platelet Morphology Normal Hypochromasia 1+ Anisocytosis 1+ Macrocytosis 1+ D-Dimer 17.05 mg/L FEU (0.00-0.49) H Sodium Level 149 MMOL/L (136-145) H Potassium Level 3.9 MMOL/L (3.5-5.1) Chloride Level 113 MMOL/L (98-107) H Carbon Dioxide Level 13 MMOL/L (21-32) L Anion Gap 23 mmol/L (5-15) H Blood Urea Nitrogen 16 mg/dL (7-18) Creatinine 2.2 MG/DL (0.55-1.30) H Estimat Glomerular Filtration Rate 37.8 mL/min (>60) Glucose Level 112 MG/DL (74-106) H Lactic Acid Level 17.00 mmol/L (0.4-2.0) H Calcium Level 7.7 MG/DL (8.5-10.1) L Total Bilirubin 1.7 MG/DL (0.2-1.0) H Direct Bilirubin 1.1 MG/DL (0.0-0.3) H Aspartate Amino Transf (AST/SGOT) 109 U/L (15-37) H Alanine Aminotransferase (ALT/SGPT) 27 U/L (12-78) Alkaline Phosphatase 39 U/L (46-116) L Total Protein 4.6 G/DL (6.4-8.2) L Albumin 1.8 G/DL (3.4-5.0) L Globulin 2.8 g/dL Albumin/Globulin Ratio 0.6 (1.0-2.7) L Arterial Blood pH 7.240 (7.350-7.450) 7.130 (7.350-7.450) Arterial Blood Partial Pressure CO2 19.4 mmHg (35.0-45.0) *L 42.1 mmHg (35.0-45.0) Arterial Blood Partial Pressure O2 145.2 mmHg (75.0-100.0) H 127.5 mmHg (75.0-100.0) H Arterial Blood HCO3 8.2 mmol/L (22.0-26.0) *L 13.7 mmol/L (22.0-26.0) *L Arterial Blood Oxygen Saturation 98.0 % (95-100) 97.1 % (95-100) Arterial Blood Base Excess -17.3 (-2-2) *L -14.6 (-2-2) *L Cesar Test Positive Positive Vancomycin Level Trough 13.3 ug/mL (5.0-12.0) H Test 02/16/19 15:00 White Blood Count 40.1 K/UL (4.8-10.8) *H Red Blood Count 2.80 M/UL (4.70-6.10) L Hemoglobin 9.2 G/DL (14.2-18.0) L Hematocrit 29.6 % (42.0-52.0) L Mean Corpuscular Volume 106 FL (80-99) H Mean Corpuscular Hemoglobin 33.0 PG (27.0-31.0) H Mean Corpuscular Hemoglobin Concent 31.2 G/DL (32.0-36.0) L Red Cell Distribution Width 14.8 % (11.6-14.8) Platelet Count 75 K/UL (150-450) L Mean Platelet Volume 11.4 FL (6.5-10.1) H Neutrophils (%) (Auto) % (45.0-75.0) Lymphocytes (%) (Auto) % (20.0-45.0) Monocytes (%) (Auto) % (1.0-10.0) Eosinophils (%) (Auto) % (0.0-3.0) Basophils (%) (Auto) % (0.0-2.0) Neutrophils % (Manual) Pending Lymphocytes % (Manual) Pending Platelet Estimate Pending Platelet Morphology Pending Lactic Acid Level 10.10 mmol/L (0.4-2.0) H Head: normocophalic Neck: no rigidity EENT: benign Neurologic Exam Cranial Nerves III, IV, : PERRLA Motor System: no involuntary movement Objective pupils 3 mm reactive no nuchal rigidity minimal withdrawal intubated cc time 35 min Impression/Recommendations Problems: (1) Episode of confusion (2) Tachycardia (3) Fever (4) Diarrhea (5) Altered mental status (6) Alcohol withdrawal seizure (7) Oral thrush (8) Electrolyte and fluid disorder (9) Aspiration pneumonia (10) Alcohol withdrawal seizure (11) Non-compliance (12) Seizure disorder Status: deteriorating Diagnostic Impression seizure due to non compliance septic shock with bacteremia broad sectrum atb sp intubation dilantin 100 mg tid Poor prognosis Myron Estrella MD Feb 16, 2019 16:08
--- NOTE | 2019-02-16 16:44 | Cardiac Electrophysiology PN ---
Assessment/Plan Assessment/Plan 1. Sinus tachycardia up to 170s. No evidence of acute myocardial infarction . The patient did not have any chest pain. This is likely due to the patient's sepsis and anemia and alcohol withdrawal. Echo Nl EF 60% 2. Septic shock and severe Lactic acidosis on Levophed and vasopressin and broad -spectrum IV antibiotics. 3. Troponin leak. Type 2. Repeat pending. 4. Respiratory failure intubated 5. ETOH withdrawal 6. Seizures with noncompliance. CONSTANCE RN Subjective Subjective Transferred to ICU for septic shock. On Levophed and Vasopressin and intubated on the Vent Objective Last 24 Hour Vital Signs Date Time Temp Pulse Resp B/P (MAP) Pulse Ox O2 Delivery O2 Flow Rate FiO2 02/16/19 16:00 99.3 140 26 90/58 (69) 100 02/16/19 16:00 Mechanical Ventilator 02/16/19 16:00 139 02/16/19 15:55 95/67 02/16/19 15:13 148 26 40 02/16/19 15:00 148 25 95/67 (76) 100 02/16/19 14:30 148 22 93/50 (64) 100 02/16/19 14:00 150 16 96/71 (79) 100 02/16/19 13:30 146 24 104/56 (72) 100 02/16/19 13:00 150 23 102/54 (70) 100 02/16/19 12:58 149 22 50 02/16/19 12:30 150 20 100/58 (72) 100 02/16/19 12:00 99.2 149 25 108/70 (83) 87 02/16/19 12:00 Mechanical Ventilator 02/16/19 12:00 142 02/16/19 11:30 138 31 98/53 (68) 100 02/16/19 11:26 86/51 02/16/19 11:11 139 28 86/51 (63) 98 02/16/19 11:00 139 28 98 02/16/19 10:57 143 39 100 Facial 100 02/16/19 10:30 143 22 86/59 (68) 99 02/16/19 10:00 143 36 88/37 (54) 100 02/16/19 09:23 79/54 02/16/19 09:15 139 38 100 Facial 50 02/16/19 09:00 144 43 63/34 (44) 100 02/16/19 08:30 154 35 81/50 (60) 100 02/16/19 08:00 Bi-pap 02/16/19 08:00 156 02/16/19 08:00 99.0 157 35 79/54 (62) 100 02/16/19 07:30 156 43 81/50 (60) 100 02/16/19 07:24 158 44 100 Facial 50 02/16/19 07:15 158 38 84/51 (62) 100 02/16/19 07:00 99.0 158 38 84/51 (62) 100 02/16/19 07:00 84/51 02/16/19 06:45 157 41 91/48 (62) 100 02/16/19 06:33 76/48 02/16/19 06:30 156 41 73/48 (56) 100 02/16/19 06:15 160 45 76/48 (57) 99 02/16/19 06:10 162 42 77/48 (58) 95 02/16/19 06:00 160 37 81/50 (60) 100 02/16/19 06:00 81/50 02/16/19 05:45 162 36 87/64 (72) 98 02/16/19 05:31 99.9 02/16/19 05:30 163 36 85/56 (66) 100 02/16/19 05:30 87/64 02/16/19 05:19 164 36 89/52 (64) 96 02/16/19 05:16 162 37 Bi-Pap 100 02/16/19 05:15 161 40 83/55 (64) 98 02/16/19 05:10 162 37 99 Facial 100 02/16/19 05:06 161 37 88/53 (65) 100 02/16/19 05:00 88/53 02/16/19 05:00 100.5 159 32 58/44 (49) 95 02/16/19 04:58 160 37 80/46 (57) 95 02/16/19 04:53 163 30 82/51 (61) 96 02/16/19 04:45 166 41 83/55 (64) 100 02/16/19 04:30 167 41 85/50 (62) 97 02/16/19 04:30 83/55 02/16/19 04:15 171 36 88/56 (67) 85 02/16/19 04:00 Room Air 02/16/19 04:00 88/56 02/16/19 04:00 173 02/16/19 04:00 168 50 97/55 (69) 95 02/16/19 03:45 173 50 74/52 (59) 99 02/16/19 03:30 74/52 02/16/19 03:30 182 28 96/60 (72) 88 02/16/19 03:15 173 56 92/68 (76) 93 02/16/19 03:00 177 46 79/50 (60) 94 02/16/19 03:00 79/38 02/16/19 02:45 173 56 76/53 (61) 97 02/16/19 02:30 173 42 87/48 (61) 96 02/16/19 02:09 171 47 96/32 (53) 98 02/16/19 02:06 173 33 85/47 (60) 97 02/16/19 02:02 79/55 02/16/19 02:00 168 43 77/52 (60) 99 02/16/19 01:45 178 37 88/41 (57) 98 02/16/19 01:30 173 40 79/42 (54) 98 02/16/19 01:15 172 46 96/54 (68) 99 02/16/19 01:00 99.4 175 38 97/53 (68) 98 02/16/19 00:45 185 41 98/65 (76) 90 02/16/19 00:39 184 22 93/64 (74) 99 02/16/19 00:15 180 25 105/54 (71) 96 02/16/19 00:00 145 02/16/19 00:00 Room Air 02/16/19 00:00 176 24 125/104 (111) 91 02/15/19 23:45 163 31 109/66 (80) 96 02/15/19 23:30 150 29 93/71 (78) 95 02/15/19 23:00 138 20 103/64 (77) 96 02/15/19 22:45 134 26 80/60 (67) 95 02/15/19 22:30 134 22 131/95 (107) 96 02/15/19 22:15 135 28 115/43 (67) 95 02/15/19 22:00 98.5 21 83/55 (64) 95 02/15/19 20:00 Room Air 02/15/19 20:00 98.1 130 22 85/65 (72) 98 02/15/19 20:00 134 Intake and Output 02/15/19 02/16/19 19:00 07:00 Intake Total 1520.0 ml 5258.666 ml Output Total 126 ml 211 ml Balance 1394.0 ml 5047.666 ml Intake Oral 0 ml IV Total 1520.0 ml 5258.666 ml Output Urine Total 125 ml 210 ml Emesis 1 ml 1 ml # Voids 1 # Bowel Movements 3 Laboratory Tests Test 02/15/19 17:55 02/16/19 00:42 02/16/19 04:35 02/16/19 05:20 White Blood Count 25.5 K/UL (4.8-10.8) *H 41.8 K/UL (4.8-10.8) #*H Red Blood Count 3.89 M/UL (4.70-6.10) L 3.03 M/UL (4.70-6.10) L Hemoglobin 12.8 G/DL (14.2-18.0) L 10.0 G/DL (14.2-18.0) L Hematocrit 38.4 % (42.0-52.0) L 32.3 % (42.0-52.0) L Mean Corpuscular Volume 99 FL (80-99) 107 FL (80-99) #H Mean Corpuscular Hemoglobin 32.9 PG (27.0-31.0) H 32.9 PG (27.0-31.0) H Mean Corpuscular Hemoglobin Concent 33.4 G/DL (32.0-36.0) 30.9 G/DL (32.0-36.0) L Red Cell Distribution Width 13.2 % (11.6-14.8) 14.9 % (11.6-14.8) H Platelet Count 106 K/UL (150-450) L 90 K/UL (150-450) L Mean Platelet Volume 8.2 FL (6.5-10.1) 9.5 FL (6.5-10.1) Neutrophils (%) (Auto) % (45.0-75.0) % (45.0-75.0) Lymphocytes (%) (Auto) % (20.0-45.0) % (20.0-45.0) Monocytes (%) (Auto) % (1.0-10.0) % (1.0-10.0) Eosinophils (%) (Auto) % (0.0-3.0) % (0.0-3.0) Basophils (%) (Auto) % (0.0-2.0) % (0.0-2.0) Differential Total Cells Counted 100 100 Neutrophils % (Manual) 61 % (45-75) 65 % (45-75) Lymphocytes % (Manual) 5 % (20-45) L 6 % (20-45) L Monocytes % (Manual) 4 % (1-10) 13 % (1-10) H Eosinophils % (Manual) 0 % (0-3) 1 % (0-3) Basophils % (Manual) 0 % (0-2) 1 % (0-2) Metamyelocytes % 5 % (0-0) H 1 % (0-0) H Band Neutrophils 25 % (0-8) H 13 % (0-8) H Platelet Estimate Decreased L Decreased L Platelet Morphology Normal Normal Poikilocytosis 1+ Macrocytosis 1+ 1+ Sodium Level 143 MMOL/L (136-145) 147 MMOL/L (136-145) H Potassium Level 3.8 MMOL/L (3.5-5.1) 3.8 MMOL/L (3.5-5.1) Chloride Level 109 MMOL/L (98-107) H 111 MMOL/L (98-107) H Carbon Dioxide Level 15 MMOL/L (21-32) L 9 MMOL/L (21-32) *L Anion Gap 19 mmol/L (5-15) H 27 mmol/L (5-15) H Blood Urea Nitrogen 11 mg/dL (7-18) 14 mg/dL (7-18) Creatinine 1.2 MG/DL (0.55-1.30) 2.1 MG/DL (0.55-1.30) #H Estimat Glomerular Filtration Rate > 60 mL/min (>60) 40.0 mL/min (>60) Glucose Level 133 MG/DL (74-106) H 33 MG/DL (74-106) #*L Lactic Acid Level 9.60 mmol/L (0.4-2.0) H 14.70 mmol/L (0.4-2.0) H 16.00 mmol/L (0.66-2.22) H Calcium Level 8.9 MG/DL (8.5-10.1) 8.4 MG/DL (8.5-10.1) L Arterial Blood pH 7.105 (7.350-7.450) Arterial Blood Partial Pressure CO2 26.5 mmHg (35.0-45.0) L Arterial Blood Partial Pressure O2 89.5 mmHg (75.0-100.0) Arterial Blood HCO3 8.1 mmol/L (22.0-26.0) *L Arterial Blood Oxygen Saturation 92.7 % (95-100) L Arterial Blood Base Excess -19.9 (-2-2) *L Cesar Test Positive Anisocytosis 1+ Erythrocyte Sedimentation Rate 23 MM/HR (0-20) H Prothrombin Time 20.2 SEC (9.30-11.50) H Prothromb Time International Ratio 2.0 (0.9-1.1) H Activated Partial Thromboplast Time 50 SEC (23-33) H Phosphorus Level 3.4 MG/DL (2.5-4.9) Total Bilirubin 2.1 MG/DL (0.2-1.0) H Direct Bilirubin 1.3 MG/DL (0.0-0.3) H Aspartate Amino Transf (AST/SGOT) 110 U/L (15-37) H Alanine Aminotransferase (ALT/SGPT) 29 U/L (12-78) Alkaline Phosphatase 75 U/L (46-116) Total Creatine Kinase 210 U/L (26-308) Troponin I 0.167 ng/mL (0.000-0.056) C-Reactive Protein, Quantitative 6.8 mg/dL (0.00-0.90) H Total Protein 5.5 G/DL (6.4-8.2) L Albumin 2.3 G/DL (3.4-5.0) L Lipase 39 U/L (73-393) L Test 02/16/19 09:50 02/16/19 10:25 02/16/19 11:15 02/16/19 13:50 White Blood Count 40.2 K/UL (4.8-10.8) *H Red Blood Count 2.66 M/UL (4.70-6.10) L Hemoglobin 8.8 G/DL (14.2-18.0) L Hematocrit 28.3 % (42.0-52.0) L Mean Corpuscular Volume 107 FL (80-99) H Mean Corpuscular Hemoglobin 33.2 PG (27.0-31.0) H Mean Corpuscular Hemoglobin Concent 31.2 G/DL (32.0-36.0) L Red Cell Distribution Width 14.4 % (11.6-14.8) Platelet Count 73 K/UL (150-450) L Mean Platelet Volume 8.2 FL (6.5-10.1) Neutrophils (%) (Auto) % (45.0-75.0) Lymphocytes (%) (Auto) % (20.0-45.0) Monocytes (%) (Auto) % (1.0-10.0) Eosinophils (%) (Auto) % (0.0-3.0) Basophils (%) (Auto) % (0.0-2.0) Differential Total Cells Counted 100 Neutrophils % (Manual) 58 % (45-75) Lymphocytes % (Manual) 11 % (20-45) L Monocytes % (Manual) 12 % (1-10) H Eosinophils % (Manual) 0 % (0-3) Basophils % (Manual) 0 % (0-2) Metamyelocytes % 2 % (0-0) H Band Neutrophils 17 % (0-8) H Platelet Estimate Decreased L Platelet Morphology Normal Hypochromasia 1+ Anisocytosis 1+ Macrocytosis 1+ D-Dimer 17.05 mg/L FEU (0.00-0.49) H Sodium Level 149 MMOL/L (136-145) H Potassium Level 3.9 MMOL/L (3.5-5.1) Chloride Level 113 MMOL/L (98-107) H Carbon Dioxide Level 13 MMOL/L (21-32) L Anion Gap 23 mmol/L (5-15) H Blood Urea Nitrogen 16 mg/dL (7-18) Creatinine 2.2 MG/DL (0.55-1.30) H Estimat Glomerular Filtration Rate 37.8 mL/min (>60) Glucose Level 112 MG/DL (74-106) H Lactic Acid Level 17.00 mmol/L (0.4-2.0) H Calcium Level 7.7 MG/DL (8.5-10.1) L Total Bilirubin 1.7 MG/DL (0.2-1.0) H Direct Bilirubin 1.1 MG/DL (0.0-0.3) H Aspartate Amino Transf (AST/SGOT) 109 U/L (15-37) H Alanine Aminotransferase (ALT/SGPT) 27 U/L (12-78) Alkaline Phosphatase 39 U/L (46-116) L Total Protein 4.6 G/DL (6.4-8.2) L Albumin 1.8 G/DL (3.4-5.0) L Globulin 2.8 g/dL Albumin/Globulin Ratio 0.6 (1.0-2.7) L Arterial Blood pH 7.240 (7.350-7.450) 7.130 (7.350-7.450) Arterial Blood Partial Pressure CO2 19.4 mmHg (35.0-45.0) *L 42.1 mmHg (35.0-45.0) Arterial Blood Partial Pressure O2 145.2 mmHg (75.0-100.0) H 127.5 mmHg (75.0-100.0) H Arterial Blood HCO3 8.2 mmol/L (22.0-26.0) *L 13.7 mmol/L (22.0-26.0) *L Arterial Blood Oxygen Saturation 98.0 % (95-100) 97.1 % (95-100) Arterial Blood Base Excess -17.3 (-2-2) *L -14.6 (-2-2) *L Cesar Test Positive Positive Vancomycin Level Trough 13.3 ug/mL (5.0-12.0) H Test 02/16/19 15:00 White Blood Count 40.1 K/UL (4.8-10.8) *H Red Blood Count 2.80 M/UL (4.70-6.10) L Hemoglobin 9.2 G/DL (14.2-18.0) L Hematocrit 29.6 % (42.0-52.0) L Mean Corpuscular Volume 106 FL (80-99) H Mean Corpuscular Hemoglobin 33.0 PG (27.0-31.0) H Mean Corpuscular Hemoglobin Concent 31.2 G/DL (32.0-36.0) L Red Cell Distribution Width 14.8 % (11.6-14.8) Platelet Count 75 K/UL (150-450) L Mean Platelet Volume 11.4 FL (6.5-10.1) H Neutrophils (%) (Auto) % (45.0-75.0) Lymphocytes (%) (Auto) % (20.0-45.0) Monocytes (%) (Auto) % (1.0-10.0) Eosinophils (%) (Auto) % (0.0-3.0) Basophils (%) (Auto) % (0.0-2.0) Neutrophils % (Manual) Pending Lymphocytes % (Manual) Pending Platelet Estimate Pending Platelet Morphology Pending Lactic Acid Level 10.10 mmol/L (0.4-2.0) H Microbiology Date/Time Source Procedure Growth Status 02/15/19 11:30 Blood Blood Culture - Preliminary Resulted 02/15/19 11:15 Blood Blood Culture - Preliminary Resulted 02/14/19 12:30 Urine,Clean Catch Urine Culture - Final Escherichia Coli Complete Objective HEAD AND NECK: Shows no JVD.Orally intubated with OG tube LUNGS: Decreased breath sounds. CARDIOVASCULAR: Regular S1 and S2 with no gallop or murmur. ABDOMEN: Soft. EXTREMITIES: No pitting edema. Fidencio Trevino MD Feb 16, 2019 16:44
--- NOTE | 2019-02-16 17:00 | NUR ---
NURSE NOTES: Dr Trevino here to see pt. No new orders. Will continue to monitor.
--- NOTE | 2019-02-16 17:15 | Electroencephalogram ---
REQUESTING PHYSICIAN: Myron Estrella M.D. READING PHYSICIAN: Lance Joyce M.D. DATE OF TRACIN02/15/2019 HISTORY: This EEG was performed on a 54-year-old gentleman with a history of a seizure disorder, who was hospitalized for an alteration in mental state and alcohol withdrawal. The purpose of this EEG was to evaluate the patient for ongoing ictal or interictal phenomena. TECHNICAL NOTE: This EEG was performed on a [employer] with electrodes placed on the scalp according to the International 10-20 system. [id number] and [id number] montages were used. The EEG was technically satisfactory and was performed while the patient was in the awake state. OBSERVATIONS: In the best awake state, the background activity consisted of 8-9 Hz low-amplitude alpha activity, with a moderate amount of superimposed beta frequencies. Large parts of the EEG were marred by EMG artifact. No definite focal abnormalities or epileptiform discharges were seen. IMPRESSION: Normal awake EEG. COMMENT: A normal EEG does not rule out a seizure disorder. Lance Joyce M.D., M.S.P.H. DR: TIFFANY JOB#: [id number] MTDD
[2019-02-16] MEDS: Docusate 100mg cap ORAL SCH (17:16)
[2019-02-16] MEDS ORDERED: Gentamicin Rx monitoring MISC PRN (18:00)
--- NOTE | 2019-02-16 18:05 | Infectious Diseases Prog Note ---
Assessment/Plan Assessment/Plan Ful consult dictated: A) 1) sepsis/shock, sirs, leukocytosis, fevers, elevated lactic acid, respiratory failure, vent 2) gram neg bacteremia 3) e.coli uti/pyelonephritis 4) allergies - nkda 5) GIB, etoh, sz P) 1) vancomycin and zosyn, add gentamicin 2) check cultures, labs, imaging 3) icu, pressors, vent 4) will f/u Subjective Allergies: Coded Allergies: No Known Allergies (Unverified , 02/10/15) Objective Vital Signs Last 24 Hour Vital Signs Date Time Temp Pulse Resp B/P (MAP) Pulse Ox O2 Delivery O2 Flow Rate FiO2 02/16/19 17:02 139 26 40 02/16/19 17:00 138 27 81/59 (66) 100 02/16/19 16:00 99.3 140 26 90/58 (69) 100 02/16/19 16:00 Mechanical Ventilator 02/16/19 16:00 139 02/16/19 15:55 95/67 02/16/19 15:13 148 26 40 02/16/19 15:00 148 25 95/67 (76) 100 02/16/19 14:30 148 22 93/50 (64) 100 02/16/19 14:00 150 16 96/71 (79) 100 02/16/19 13:30 146 24 104/56 (72) 100 02/16/19 13:00 150 23 102/54 (70) 100 02/16/19 12:58 149 22 50 02/16/19 12:30 150 20 100/58 (72) 100 02/16/19 12:00 99.2 149 25 108/70 (83) 87 02/16/19 12:00 Mechanical Ventilator 02/16/19 12:00 142 02/16/19 11:30 138 31 98/53 (68) 100 02/16/19 11:26 86/51 02/16/19 11:11 139 28 86/51 (63) 98 02/16/19 11:00 139 28 98 02/16/19 10:57 143 39 100 Facial 100 02/16/19 10:30 143 22 86/59 (68) 99 02/16/19 10:00 143 36 88/37 (54) 100 02/16/19 09:23 79/54 02/16/19 09:15 139 38 100 Facial 50 02/16/19 09:00 144 43 63/34 (44) 100 02/16/19 08:30 154 35 81/50 (60) 100 02/16/19 08:00 Bi-pap 02/16/19 08:00 156 02/16/19 08:00 99.0 157 35 79/54 (62) 100 02/16/19 07:30 156 43 81/50 (60) 100 02/16/19 07:24 158 44 100 Facial 50 02/16/19 07:15 158 38 84/51 (62) 100 02/16/19 07:00 99.0 158 38 84/51 (62) 100 02/16/19 07:00 84/51 02/16/19 06:45 157 41 91/48 (62) 100 02/16/19 06:33 76/48 02/16/19 06:30 156 41 73/48 (56) 100 02/16/19 06:15 160 45 76/48 (57) 99 02/16/19 06:10 162 42 77/48 (58) 95 02/16/19 06:00 160 37 81/50 (60) 100 02/16/19 06:00 81/50 02/16/19 05:45 162 36 87/64 (72) 98 02/16/19 05:31 99.9 02/16/19 05:30 163 36 85/56 (66) 100 02/16/19 05:30 87/64 02/16/19 05:19 164 36 89/52 (64) 96 02/16/19 05:16 162 37 Bi-Pap 100 02/16/19 05:15 161 40 83/55 (64) 98 02/16/19 05:10 162 37 99 Facial 100 02/16/19 05:06 161 37 88/53 (65) 100 02/16/19 05:00 88/53 02/16/19 05:00 100.5 159 32 58/44 (49) 95 02/16/19 04:58 160 37 80/46 (57) 95 02/16/19 04:53 163 30 82/51 (61) 96 02/16/19 04:45 166 41 83/55 (64) 100 02/16/19 04:30 167 41 85/50 (62) 97 02/16/19 04:30 83/55 02/16/19 04:15 171 36 88/56 (67) 85 02/16/19 04:00 Room Air 02/16/19 04:00 88/56 02/16/19 04:00 173 02/16/19 04:00 168 50 97/55 (69) 95 02/16/19 03:45 173 50 74/52 (59) 99 02/16/19 03:30 74/52 02/16/19 03:30 182 28 96/60 (72) 88 02/16/19 03:15 173 56 92/68 (76) 93 02/16/19 03:00 177 46 79/50 (60) 94 02/16/19 03:00 79/38 02/16/19 02:45 173 56 76/53 (61) 97 02/16/19 02:30 173 42 87/48 (61) 96 02/16/19 02:09 171 47 96/32 (53) 98 02/16/19 02:06 173 33 85/47 (60) 97 02/16/19 02:02 79/55 02/16/19 02:00 168 43 77/52 (60) 99 02/16/19 01:45 178 37 88/41 (57) 98 02/16/19 01:30 173 40 79/42 (54) 98 02/16/19 01:15 172 46 96/54 (68) 99 02/16/19 01:00 99.4 175 38 97/53 (68) 98 02/16/19 00:45 185 41 98/65 (76) 90 02/16/19 00:39 184 22 93/64 (74) 99 02/16/19 00:15 180 25 105/54 (71) 96 02/16/19 00:00 145 02/16/19 00:00 Room Air 02/16/19 00:00 176 24 125/104 (111) 91 02/15/19 23:45 163 31 109/66 (80) 96 02/15/19 23:30 150 29 93/71 (78) 95 02/15/19 23:00 138 20 103/64 (77) 96 02/15/19 22:45 134 26 80/60 (67) 95 02/15/19 22:30 134 22 131/95 (107) 96 02/15/19 22:15 135 28 115/43 (67) 95 02/15/19 22:00 98.5 21 83/55 (64) 95 02/15/19 20:00 Room Air 02/15/19 20:00 98.1 130 22 85/65 (72) 98 02/15/19 20:00 134 Height (Feet): 5 Height (Inches): 5.00 Weight (Pounds): 130 Microbiology Date/Time Source Procedure Growth Status 02/15/19 11:30 Blood Blood Culture - Preliminary Resulted 02/15/19 11:15 Blood Blood Culture - Preliminary Resulted 02/14/19 12:30 Urine,Clean Catch Urine Culture - Final Escherichia Coli Complete Laboratory Tests Test 02/16/19 00:42 02/16/19 04:35 02/16/19 05:20 02/16/19 09:50 Lactic Acid Level 14.70 mmol/L (0.4-2.0) H 16.00 mmol/L (0.66-2.22) H 17.00 mmol/L (0.4-2.0) H Arterial Blood pH 7.105 (7.350-7.450) Arterial Blood Partial Pressure CO2 26.5 mmHg (35.0-45.0) L Arterial Blood Partial Pressure O2 89.5 mmHg (75.0-100.0) Arterial Blood HCO3 8.1 mmol/L (22.0-26.0) *L Arterial Blood Oxygen Saturation 92.7 % (95-100) L Arterial Blood Base Excess -19.9 (-2-2) *L Cesar Test Positive White Blood Count 41.8 K/UL (4.8-10.8) #*H 40.2 K/UL (4.8-10.8) *H Red Blood Count 3.03 M/UL (4.70-6.10) L 2.66 M/UL (4.70-6.10) L Hemoglobin 10.0 G/DL (14.2-18.0) L 8.8 G/DL (14.2-18.0) L Hematocrit 32.3 % (42.0-52.0) L 28.3 % (42.0-52.0) L Mean Corpuscular Volume 107 FL (80-99) #H 107 FL (80-99) H Mean Corpuscular Hemoglobin 32.9 PG (27.0-31.0) H 33.2 PG (27.0-31.0) H Mean Corpuscular Hemoglobin Concent 30.9 G/DL (32.0-36.0) L 31.2 G/DL (32.0-36.0) L Red Cell Distribution Width 14.9 % (11.6-14.8) H 14.4 % (11.6-14.8) Platelet Count 90 K/UL (150-450) L 73 K/UL (150-450) L Mean Platelet Volume 9.5 FL (6.5-10.1) 8.2 FL (6.5-10.1) Neutrophils (%) (Auto) % (45.0-75.0) % (45.0-75.0) Lymphocytes (%) (Auto) % (20.0-45.0) % (20.0-45.0) Monocytes (%) (Auto) % (1.0-10.0) % (1.0-10.0) Eosinophils (%) (Auto) % (0.0-3.0) % (0.0-3.0) Basophils (%) (Auto) % (0.0-2.0) % (0.0-2.0) Differential Total Cells Counted 100 100 Neutrophils % (Manual) 65 % (45-75) 58 % (45-75) Lymphocytes % (Manual) 6 % (20-45) L 11 % (20-45) L Monocytes % (Manual) 13 % (1-10) H 12 % (1-10) H Eosinophils % (Manual) 1 % (0-3) 0 % (0-3) Basophils % (Manual) 1 % (0-2) 0 % (0-2) Metamyelocytes % 1 % (0-0) H 2 % (0-0) H Band Neutrophils 13 % (0-8) H 17 % (0-8) H Platelet Estimate Decreased L Decreased L Platelet Morphology Normal Normal Anisocytosis 1+ 1+ Macrocytosis 1+ 1+ Erythrocyte Sedimentation Rate 23 MM/HR (0-20) H Prothrombin Time 20.2 SEC (9.30-11.50) H Prothromb Time International Ratio 2.0 (0.9-1.1) H Activated Partial Thromboplast Time 50 SEC (23-33) H Sodium Level 147 MMOL/L (136-145) H 149 MMOL/L (136-145) H Potassium Level 3.8 MMOL/L (3.5-5.1) 3.9 MMOL/L (3.5-5.1) Chloride Level 111 MMOL/L (98-107) H 113 MMOL/L (98-107) H Carbon Dioxide Level 9 MMOL/L (21-32) *L 13 MMOL/L (21-32) L Anion Gap 27 mmol/L (5-15) H 23 mmol/L (5-15) H Blood Urea Nitrogen 14 mg/dL (7-18) 16 mg/dL (7-18) Creatinine 2.1 MG/DL (0.55-1.30) #H 2.2 MG/DL (0.55-1.30) H Estimat Glomerular Filtration Rate 40.0 mL/min (>60) 37.8 mL/min (>60) Glucose Level 33 MG/DL (74-106) #*L 112 MG/DL (74-106) H Calcium Level 8.4 MG/DL (8.5-10.1) L 7.7 MG/DL (8.5-10.1) L Phosphorus Level 3.4 MG/DL (2.5-4.9) Total Bilirubin 2.1 MG/DL (0.2-1.0) H 1.7 MG/DL (0.2-1.0) H Direct Bilirubin 1.3 MG/DL (0.0-0.3) H 1.1 MG/DL (0.0-0.3) H Aspartate Amino Transf (AST/SGOT) 110 U/L (15-37) H 109 U/L (15-37) H Alanine Aminotransferase (ALT/SGPT) 29 U/L (12-78) 27 U/L (12-78) Alkaline Phosphatase 75 U/L (46-116) 39 U/L (46-116) L Total Creatine Kinase 210 U/L (26-308) Troponin I 0.167 ng/mL (0.000-0.056) C-Reactive Protein, Quantitative 6.8 mg/dL (0.00-0.90) H Total Protein 5.5 G/DL (6.4-8.2) L 4.6 G/DL (6.4-8.2) L Albumin 2.3 G/DL (3.4-5.0) L 1.8 G/DL (3.4-5.0) L Lipase 39 U/L (73-393) L Hypochromasia 1+ D-Dimer 17.05 mg/L FEU (0.00-0.49) H Globulin 2.8 g/dL Albumin/Globulin Ratio 0.6 (1.0-2.7) L Test 02/16/19 10:25 02/16/19 11:15 02/16/19 13:50 02/16/19 15:00 Arterial Blood pH 7.240 (7.350-7.450) 7.130 (7.350-7.450) Arterial Blood Partial Pressure CO2 19.4 mmHg (35.0-45.0) *L 42.1 mmHg (35.0-45.0) Arterial Blood Partial Pressure O2 145.2 mmHg (75.0-100.0) H 127.5 mmHg (75.0-100.0) H Arterial Blood HCO3 8.2 mmol/L (22.0-26.0) *L 13.7 mmol/L (22.0-26.0) *L Arterial Blood Oxygen Saturation 98.0 % (95-100) 97.1 % (95-100) Arterial Blood Base Excess -17.3 (-2-2) *L -14.6 (-2-2) *L Cesar Test Positive Positive Vancomycin Level Trough 13.3 ug/mL (5.0-12.0) H White Blood Count 40.1 K/UL (4.8-10.8) *H Red Blood Count 2.80 M/UL (4.70-6.10) L Hemoglobin 9.2 G/DL (14.2-18.0) L Hematocrit 29.6 % (42.0-52.0) L Mean Corpuscular Volume 106 FL (80-99) H Mean Corpuscular Hemoglobin 33.0 PG (27.0-31.0) H Mean Corpuscular Hemoglobin Concent 31.2 G/DL (32.0-36.0) L Red Cell Distribution Width 14.8 % (11.6-14.8) Platelet Count 75 K/UL (150-450) L Mean Platelet Volume 11.4 FL (6.5-10.1) H Neutrophils (%) (Auto) % (45.0-75.0) Lymphocytes (%) (Auto) % (20.0-45.0) Monocytes (%) (Auto) % (1.0-10.0) Eosinophils (%) (Auto) % (0.0-3.0) Basophils (%) (Auto) % (0.0-2.0) Neutrophils % (Manual) Pending Lymphocytes % (Manual) Pending Platelet Estimate Pending Platelet Morphology Pending Lactic Acid Level 10.10 mmol/L (0.4-2.0) H Current Medications Medications (Trade) Dose Ordered Sig/Tonny Route PRN Reason Start Time Stop Time Status Last Admin Dose Admin Acetaminophen (Tylenol) 650 mg Q4H PRN ORAL Mild Pain (Pain Scale 1-3) 02/16/19 00:30 03/16/19 12:29 Acetaminophen (Tylenol) 650 mg Q4H PRN RECTAL Mild Pain (Pain Scale 1-3) 02/16/19 04:30 03/18/19 04:29 02/16/19 04:31 Bisacodyl (Dulcolax) 10 mg HSPRN PRN RECTAL Constipation 02/16/19 21:00 03/16/19 20:59 Chlorhexidine Gluconate (Stephanie-Hex 2%) 1 applic DAILY@2000 TOPIC 02/16/19 20:00 03/18/19 19:59 Dextrose (Dextrose 50%) 25 ml Q30M PRN IV Hypoglycemia 02/15/19 22:15 03/16/19 16:14 Dextrose (Dextrose 50%) 50 ml Q30M PRN IV Hypoglycemia 02/15/19 22:15 03/16/19 16:14 02/16/19 06:32 Docusate Sodium (Colace) 100 mg TID ORAL 02/16/19 18:00 03/16/19 20:59 Folic Acid 1 mg/ Magnesium Sulfate 2000 mg/ Multivitamins 10 ml/Sodium Chloride 1,014.2 ml @ 125 mls/ hr Q24H IV 02/16/19 09:00 03/18/19 08:59 02/16/19 10:20 Iopamidol (Isovue-300 100ml) 100 ml NOW PRN INJ Radiology Procedure 02/16/19 12:00 02/18/19 11:59 Iopamidol (Isovue-300 100ml) 100 ml NOW PRN INJ Radiology Procedure 02/16/19 12:00 02/18/19 11:59 Lorazepam (Ativan 2mg/ml 1ml) 1 mg Q2H PRN IV For Anxiety 02/16/19 09:00 02/23/19 08:59 02/16/19 10:46 Lorazepam (Ativan 2mg/ml 1ml) 1 mg Q4H PRN IV For Seizures 02/16/19 00:15 02/23/19 00:14 02/16/19 00:07 Norepinephrine Bitartrate 8 mg/ Dextrose 508 ml @ 0 mls/hr Q24H IV 02/16/19 09:30 03/18/19 09:29 02/16/19 15:55 Ondansetron HCl (Zofran) 4 mg Q6H PRN IVP Nausea & Vomiting 02/16/19 01:00 03/16/19 12:59 Pantoprazole (Protonix) 40 mg EVERY 12 HOURS IVP 02/16/19 09:00 03/18/19 08:59 02/16/19 09:00 Phenytoin (Dilantin) 100 mg Q8HR ORAL 02/15/19 22:15 03/16/19 21:59 02/15/19 22:59 Piperacillin Sod/ Tazobactam Sod 3.375 gm/Sodium Chloride 110 ml @ 27.5 mls/hr EVERY 12 HOURS IVPB 02/16/19 21:00 02/21/19 20:59 Sodium Bicarbonate 150 ml/Sodium Chloride 1,150 ml @ 125 mls/hr Q9H12M IV 02/16/19 05:00 03/18/19 04:59 02/16/19 15:20 Thiamine HCl 100 mg/Dextrose 56 ml @ 112 mls/hr Q24H IVPB 02/16/19 09:00 03/18/19 08:59 02/16/19 10:20 Vancomycin HCl (Vanco rx to dose) 1 ea DAILY PRN MISC Per rx protocol 02/16/19 09:00 03/17/19 12:59 Vasopressin 100 units/Sodium Chloride 100 ml @ 0 mls/hr Q24H IV 02/16/19 08:15 03/18/19 08:14 02/16/19 08:15 Barry Plummer MD Feb 16, 2019 18:05
--- NOTE | 2019-02-16 19:12 | NUR ---
HAND-OFF: Report given to Dale BALBUENA.
--- NOTE | 2019-02-16 19:20 | NUR ---
NURSE NOTES: Received report from ESHA Cool. Patient in bed AO X1, nonverbal, eyes open spontaneously, currently intubated ETT8, 24LL, AC26, VT 600, PEEP 5, O2 sat at 100% with 40% FiO2. NPO at this time. Continuous cardiac monitoring per protocol and noted tachycardia. BP87/54, currently on max of Levophed 30mcg/min and max of vasopressin 0.04units/min. Also NS with 3 amps of bicarb running at 125ml/hr via Left femorla TLC. Aguilar 18fr draining small amount of dark/ reddish urine noted. Safety and seizure precaution in place; siderails X3 up and padded, call light within reach, bed in lowest position and free from clutter, brakes and alarm on at all times, and suction equipment at bedside. Needs and wants anticipated and attended, will continue plan of care and monitor for any changes noted.
--- NOTE | 2019-02-16 19:41 | NUR ---
RESPIRATORY NOTE: Received pt. on current AC vent settings with a 7.[address], measuring 24 at the lip. Pt is currently stable at this time. Vent alarms on and audible, ambu bag at bedside. Will continue to monitor.
[2019-02-16] MEDS ORDERED: Gentamicin inj 120 MG in NS 110 ML IVPB SCH (20:00)
[2019-02-16] MEDS: Dyna-Hex 2% Top Sol 2oz TOPIC SCH (20:22)
--- NOTE | 2019-02-16 20:39 | General Progress Note ---
Assessment/Plan Status: deteriorating Assessment/Plan: 54 year old male with pMH of seizure disorder and etoh abuse admitted for seizures 2/2 non-compliance #severe septic shock likely 2/2 UTI #Gram negative bacteremia #Acute respiratory failure -Vanc and Zosyn - gentamicin started -ID consult appreciated -f/u cultures -cont ICU care -cont BIPAP for now -ED MD called for intubation #Lactic acidosis -2/2 severe shock/ poss abd source/ seizures -CTM -Fluid boluses ordered -Cont mIVF -Repeat in AM - increased, bolused, pending repeat #Coagulopathy -likely 2/2 hepatic injury 2/2 shock -WIll give vitamin K in setting of poss GI bleed #Coffee ground emesis likely in setting of GI bleed -H/H stable -GI consult appreciated -Plan for EGD once stable -cont NPO -surgery consult appreciated #Seizures 2/2 noncomplaint with AED -s/p phenytoin load in ed -Cont Phenytoin -Neurology consult appreciated -pendign EEG tonight -Ativan PRN for seizures -NPO -Seizure precautions #Hypokalemia -repleted -CTM Code: Asphalt Patcher of note does not reflect time of encounter Subjective Date patient seen: Feb 16, 2019 ROS Limited/Unobtainable: Yes Allergies: Coded Allergies: No Known Allergies (Unverified , 02/10/15) Subjective Pt hypotensive overnight, femoral line placed, started on pressors and transferred to MICU. This AM, maxed out on levophen, vasopressin added, lactate trending up, boluses given, INR increased, creatinine increased. On BiPAP, increased respiratory rate, will need intubation. Objective Last 24 Hour Vital Signs Date Time Temp Pulse Resp B/P (MAP) Pulse Ox O2 Delivery O2 Flow Rate FiO2 02/16/19 19:00 141 26 91/53 (66) 100 02/16/19 18:57 142 28 40 02/16/19 18:00 140 26 78/52 (61) 100 02/16/19 17:02 139 26 40 02/16/19 17:00 138 27 81/59 (66) 100 02/16/19 16:00 99.3 140 26 90/58 (69) 100 02/16/19 16:00 Mechanical Ventilator 02/16/19 16:00 139 02/16/19 15:55 95/67 02/16/19 15:13 148 26 40 02/16/19 15:00 148 25 95/67 (76) 100 02/16/19 14:30 148 22 93/50 (64) 100 02/16/19 14:00 150 16 96/71 (79) 100 02/16/19 13:30 146 24 104/56 (72) 100 02/16/19 13:00 150 23 102/54 (70) 100 02/16/19 12:58 149 22 50 02/16/19 12:30 150 20 100/58 (72) 100 02/16/19 12:00 99.2 149 25 108/70 (83) 87 02/16/19 12:00 Mechanical Ventilator 02/16/19 12:00 142 02/16/19 11:30 138 31 98/53 (68) 100 02/16/19 11:26 86/51 02/16/19 11:11 139 28 86/51 (63) 98 02/16/19 11:00 139 28 98 02/16/19 10:57 143 39 100 Facial 100 02/16/19 10:30 143 22 86/59 (68) 99 02/16/19 10:00 143 36 88/37 (54) 100 02/16/19 09:23 79/54 02/16/19 09:15 139 38 100 Facial 50 02/16/19 09:00 144 43 63/34 (44) 100 02/16/19 08:30 154 35 81/50 (60) 100 02/16/19 08:00 Bi-pap 02/16/19 08:00 156 02/16/19 08:00 99.0 157 35 79/54 (62) 100 02/16/19 07:30 156 43 81/50 (60) 100 02/16/19 07:24 158 44 100 Facial 50 02/16/19 07:15 158 38 84/51 (62) 100 02/16/19 07:00 99.0 158 38 84/51 (62) 100 02/16/19 07:00 84/51 02/16/19 06:45 157 41 91/48 (62) 100 02/16/19 06:33 76/48 02/16/19 06:30 156 41 73/48 (56) 100 02/16/19 06:15 160 45 76/48 (57) 99 02/16/19 06:10 162 42 77/48 (58) 95 02/16/19 06:00 160 37 81/50 (60) 100 02/16/19 06:00 81/50 02/16/19 05:45 162 36 87/64 (72) 98 02/16/19 05:31 99.9 02/16/19 05:30 163 36 85/56 (66) 100 02/16/19 05:30 87/64 02/16/19 05:19 164 36 89/52 (64) 96 02/16/19 05:16 162 37 Bi-Pap 100 02/16/19 05:15 161 40 83/55 (64) 98 02/16/19 05:10 162 37 99 Facial 100 02/16/19 05:06 161 37 88/53 (65) 100 02/16/19 05:00 88/53 02/16/19 05:00 100.5 159 32 58/44 (49) 95 02/16/19 04:58 160 37 80/46 (57) 95 02/16/19 04:53 163 30 82/51 (61) 96 02/16/19 04:45 166 41 83/55 (64) 100 02/16/19 04:30 167 41 85/50 (62) 97 02/16/19 04:30 83/55 02/16/19 04:15 171 36 88/56 (67) 85 02/16/19 04:00 Room Air 02/16/19 04:00 88/56 02/16/19 04:00 173 02/16/19 04:00 168 50 97/55 (69) 95 02/16/19 03:45 173 50 74/52 (59) 99 02/16/19 03:30 74/52 02/16/19 03:30 182 28 96/60 (72) 88 02/16/19 03:15 173 56 92/68 (76) 93 02/16/19 03:00 177 46 79/50 (60) 94 02/16/19 03:00 79/38 02/16/19 02:45 173 56 76/53 (61) 97 02/16/19 02:30 173 42 87/48 (61) 96 02/16/19 02:09 171 47 96/32 (53) 98 02/16/19 02:06 173 33 85/47 (60) 97 02/16/19 02:02 79/55 02/16/19 02:00 168 43 77/52 (60) 99 02/16/19 01:45 178 37 88/41 (57) 98 02/16/19 01:30 173 40 79/42 (54) 98 02/16/19 01:15 172 46 96/54 (68) 99 02/16/19 01:00 99.4 175 38 97/53 (68) 98 02/16/19 00:45 185 41 98/65 (76) 90 02/16/19 00:39 184 22 93/64 (74) 99 02/16/19 00:15 180 25 105/54 (71) 96 02/16/19 00:00 145 02/16/19 00:00 Room Air 02/16/19 00:00 176 24 125/104 (111) 91 02/15/19 23:45 163 31 109/66 (80) 96 02/15/19 23:30 150 29 93/71 (78) 95 02/15/19 23:00 138 20 103/64 (77) 96 02/15/19 22:45 134 26 80/60 (67) 95 02/15/19 22:30 134 22 131/95 (107) 96 02/15/19 22:15 135 28 115/43 (67) 95 02/15/19 22:00 98.5 21 83/55 (64) 95 Intake and Output 02/15/19 02/16/19 19:00 07:00 Intake Total 1520.0 ml 5258.666 ml Output Total 126 ml 211 ml Balance 1394.0 ml 5047.666 ml Intake Oral 0 ml IV Total 1520.0 ml 5258.666 ml Output Urine Total 125 ml 210 ml Emesis 1 ml 1 ml # Voids 1 # Bowel Movements 3 Laboratory Tests 02/16/19 00:42: Lactic Acid Level 14.70H 02/16/19 04:35: Arterial Blood pH 7.105*L, Arterial Blood Partial Pressure CO2 26.5L, Arterial Blood Partial Pressure O2 89.5, Arterial Blood HCO3 8.1*L, Arterial Blood Oxygen Saturation 92.7L, Arterial Blood Base Excess -19.9*L, Cesar Test Positive 02/16/19 05:20: Lactic Acid Level 16.00H, White Blood Count 41.8#*H, Red Blood Count 3.03L, Hemoglobin 10.0L, Hematocrit 32.3L, Mean Corpuscular Volume 107#H, Mean Corpuscular Hemoglobin 32.9H, Mean Corpuscular Hemoglobin Concent 30.9L, Red Cell Distribution Width 14.9H, Platelet Count 90L, Mean Platelet Volume 9.5, Neutrophils (%) (Auto) , Lymphocytes (%) (Auto) , Monocytes (%) (Auto) , Eosinophils (%) (Auto) , Basophils (%) (Auto) , Differential Total Cells Counted 100, Neutrophils % (Manual) 65, Lymphocytes % (Manual) 6L, Monocytes % ( Manual) 13H, Eosinophils % (Manual) 1, Basophils % (Manual) 1, Metamyelocytes % 1H, Band Neutrophils 13H, Platelet Estimate DecreasedL, Platelet Morphology Normal, Anisocytosis 1+, Macrocytosis 1+, Erythrocyte Sedimentation Rate 23H, Prothrombin Time 20.2H, Prothromb Time International Ratio 2.0H, Activated Partial Thromboplast Time 50H, Sodium Level 147H, Potassium Level 3.8, Chloride Level 111H, Carbon Dioxide Level 9*L, Anion Gap 27H, Blood Urea Nitrogen 14, Creatinine 2.1#H, Estimat Glomerular Filtration Rate 40.0, Glucose Level 33#*L, Calcium Level 8.4L, Phosphorus Level 3.4, Total Bilirubin 2.1H, Direct Bilirubin 1.3H, Aspartate Amino Transf (AST/SGOT) 110H, Alanine Aminotransferase (ALT/SGPT) 29, Alkaline Phosphatase 75, Total Creatine Kinase 210, Troponin I 0.167H, C-Reactive Protein, Quantitative 6.8H, Total Protein 5.5L, Albumin 2.3L, Lipase 39L 02/16/19 09:50: Lactic Acid Level 17.00H, White Blood Count 40.2*H, Red Blood Count 2.66L, Hemoglobin 8.8L, Hematocrit 28.3L, Mean Corpuscular Volume 107H, Mean Corpuscular Hemoglobin 33.2H, Mean Corpuscular Hemoglobin Concent 31.2L, Red Cell Distribution Width 14.4, Platelet Count 73L, Mean Platelet Volume 8.2, Neutrophils (%) (Auto) , Lymphocytes (%) (Auto) , Monocytes (%) (Auto) , Eosinophils (%) (Auto) , Basophils (%) (Auto) , Differential Total Cells Counted 100, Neutrophils % (Manual) 58, Lymphocytes % (Manual) 11L, Monocytes % (Manual) 12H, Eosinophils % (Manual) 0, Basophils % (Manual) 0, Metamyelocytes % 2H, Band Neutrophils 17H, Platelet Estimate DecreasedL, Platelet Morphology Normal, Anisocytosis 1+, Macrocytosis 1+, Sodium Level 149H, Potassium Level 3.9 , Chloride Level 113H, Carbon Dioxide Level 13L, Anion Gap 23H, Blood Urea Nitrogen 16, Creatinine 2.2H, Estimat Glomerular Filtration Rate 37.8, Glucose Level 112H, Calcium Level 7.7L, Total Bilirubin 1.7H, Direct Bilirubin 1.1H, Aspartate Amino Transf (AST/SGOT) 109H, Alanine Aminotransferase (ALT/SGPT) 27, Alkaline Phosphatase 39L, Total Protein 4.6L, Albumin 1.8L, Hypochromasia 1+, D- Dimer 17.05H, Globulin 2.8, Albumin/Globulin Ratio 0.6L 02/16/19 10:25: Arterial Blood pH 7.240*L, Arterial Blood Partial Pressure CO2 19.4*L, Arterial Blood Partial Pressure O2 145.2H, Arterial Blood HCO3 8.2*L, Arterial Blood Oxygen Saturation 98.0, Arterial Blood Base Excess -17.3*L, Cesar Test Positive 02/16/19 11:15: Vancomycin Level Trough 13.3H 02/16/19 13:50: Arterial Blood pH 7.130*L, Arterial Blood Partial Pressure CO2 42.1, Arterial Blood Partial Pressure O2 127.5H, Arterial Blood HCO3 13.7*L, Arterial Blood Oxygen Saturation 97.1, Arterial Blood Base Excess -14.6*L, Cesar Test Positive 02/16/19 15:00: White Blood Count 40.1*H, Red Blood Count 2.80L, Hemoglobin 9.2L, Hematocrit 29.6L, Mean Corpuscular Volume 106H, Mean Corpuscular Hemoglobin 33.0H, Mean Corpuscular Hemoglobin Concent 31.2L, Red Cell Distribution Width 14.8, Platelet Count 75L, Mean Platelet Volume 11.4H, Neutrophils (%) (Auto) , Lymphocytes (%) (Auto) , Monocytes (%) (Auto) , Eosinophils (%) (Auto) , Basophils (%) (Auto) , Neutrophils % (Manual) [Pending], Lymphocytes % (Manual) [Pending], Platelet Estimate [Pending], Platelet Morphology [Pending], Lactic Acid Level 10.10H Height (Feet): 5 Height (Inches): 5.00 Weight (Pounds): 130 Objective General appearance: alert, distress, appears stated age, on bipap Head: Normocephalic, without obvious abnormality, atraumatic Eyes: conjunctivae/corneas clear. PERRL, EOM's intact. Fundi benign Throat: Lips, mucosa, and tongue normal. Teeth and gums normal Neck: supple, symmetrical, trachea midline, no adenopathy, thyroid: not enlarged, symmetric, no tenderness/mass/nodules, no carotid bruit and no JVD Lungs: increased work of breathing, on BiPAP Heart: regular rate and rhythm, S1, S2 normal, no murmur, click, rub or gallop Abdomen: soft, non-tender. Bowel sounds normal. No masses, no organomegaly Extremities: extremities normal, atraumatic, no cyanosis or edema Pulses: 2+ and symmetric Skin: Skin color, texture, turgor normal. No rashes or lesions Neurologic: Grossly normal Lyn Cuevas MD Feb 16, 2019 20:39
--- NOTE | 2019-02-16 21:11 | NUR ---
NURSE NOTES: Called and spoke with MD Healy at this time. Notified him patient SBP currently 75-81, MAP 57. MD ordered to add ashley at this time. Orders read back and confirmed by .
--- NOTE | 2019-02-16 22:00 | NUR ---
NURSE NOTES: Pt's BP 89/50, continue on max of Levophed and max of Vasopressin, pt's resting in bed with eyes closed, no acute distress noted at this time. Will continue to monitor
--- NOTE | 2019-02-16 22:15 | Consultation ---
DATE OF CONSULTATION: 02/16/2019 INFECTIOUS DISEASE CONSULTATION CONSULTING PHYSICIAN: Barry Plummer M.D. ATTENDING PHYSICIAN: Diego Castrejon M.D. REFERRING PHYSICIAN: Lyn Adorno M.D. REASON FOR CONSULTATION: Sepsis, shock, gram-negative bacteremia, E. coli urinary tract infection, pyelonephritis, fevers, and leukocytosis. CHIEF COMPLAINT: The patient's chief complaint coming into the hospital is recurrent seizures. HISTORY OF PRESENT ILLNESS: This is a 54-year-old male, who I saw yesterday, who had an elevated white count and febrile and septic. The patient was started empirically on vancomycin and Zosyn. Workup shows that he has gram-negative bacteremia and E. coli urinary tract infection and pyelonephritis with sepsis and fevers and leukocytosis. The patient has severe sepsis with white count as high as 41.8 today and was 25.5 yesterday. The patient is also febrile. Currently, the patient is in septic shock requiring pressors and now is in respiratory failure on a vent. The patient is on Zosyn and vancomycin. I am going to add gentamicin. The patient's urine culture had E. coli sensitive to Zosyn, cefazolin, Cipro, and gentamicin. MAR was noted. Orders were noted. Notes and records were reviewed. The patient is in the intensive care unit. Again, the patient presented to the [facility] . REVIEW OF SYSTEMS: HEAD AND NECK: He is orally intubated. CARDIAC: He is on pressors. GASTROINTESTINAL: No diarrhea, nausea, or vomiting. GENITOURINARY: He has a Aguilar. PULMONARY: On a vent. Poorly responsive currently. He came in with what looks like recurrent seizures also. PAST MEDICAL HISTORY: The patient's past medical history includes the following. The patient has a past medical history of seizure disorder and ETOH abuse. He does not have a history of diabetes or hypertension. ALLERGIES: No known drug allergies. SOCIAL HISTORY: Positive for ETOH abuse. No IV drug abuse. No mention of smoking. FAMILY HISTORY: Noncontributory. No mention of any significant diseases per the records. MEDICATIONS: Noted and reviewed. He is on Zosyn, vancomycin, ____, gentamicin, and docusate. Other medications that he is on include pantoprazole, folic acid, thiamine, lorazepam, vasopressin, sodium, and acetaminophen. MAR was noted. Outside medications were noted and reconciliated. Antibiotics, Zosyn, vancomycin, and gentamicin started. PHYSICAL EXAMINATION: VITAL SIGNS: Temperature is 99.3, pulse rate 139, respiratory rate 26, blood pressure 81/59, and saturation 100% on FiO2 40%. He is on multiple pressors. T-max is 100.5. GENERAL: Lethargic, poorly responsive. HEAD AND NECK: Orally intubated. Eye exam, no icterus. Normocephalic. HEART: Regular. Tachycardic. No obvious gallop or murmur. ABDOMEN: Soft. Decreased bowel sounds. LUNGS: Bilateral rhonchi. Possible rales. SKIN: No rash. MUSCULOSKELETAL: No effusion. Legs are without cellulitis. PERIPHERAL VASCULAR: No gangrene. GENITOURINARY: He has a Aguilar. Urine is cloudy. LINES SITES: Without phlebitis. NEUROLOGIC: Poorly responsive. LABORATORY DATA: White count 40.1, hemoglobin 9.2, and platelet count is 75,000. Creatinine is 2.2. Lactic acid is 17. Urinalysis had 3+ leukocyte esterase and too many to count white blood cells. CULTURES: Blood cultures are gram-negative rods. Identification is pending in multiple bottles and urine culture with E. coli, sensitive to Zosyn, cephalosporins, and gentamicin. Chest x-ray which is done today showed interstitial edema. CT scan of the abdomen and pelvis has been ordered, but the patient is unstable for it. Ultrasound showed cholelithiasis. No ductal dilatation mentioned. ASSESSMENT AND PLAN: 1. The patient has sepsis shock. The patient has gram-negative bacteremia, likely E. coli urinary tract infection and pyelonephritis with gram-negative bacteremia sepsis shock. The patient has leukocytosis and fevers. Rule out aspiration, healthcare-acquired pneumonia, versus edema and respiratory failure. Continue vancomycin and Zosyn and gentamicin is added for aminoglycoside coverage for the gram-negative bacteremia. Continue vancomycin, Zosyn, and gentamicin. Check cultures, labs, chest x-ray, sputum culture, and final blood culture results. Continue treatment for sepsis, shock, gram-negative bacteremia, and E. coli urinary tract infection, pyelonephritis, sepsis, elevated white count, and possible pneumonia. 2. History of seizures. Workup per Neurology. 3. Acute kidney injury, likely secondary to sepsis. 4. The patient is anemic. 5. Severe sepsis with leukocytosis. 6. History of ETOH abuse. 7. No known allergies. 8. Family history is noncontributory. 9. MAR was noted. 10. Case was discussed with RN. 11. Social history is positive for ETOH abuse. 12. Poor prognosis. Barry Plummer M.D. DR: CHRISTOPHER JOB#: [id number] CC:
[2019-02-16] MEDS: Phenylephrine 50 MG in D5W 245 ML IV SCH (22:30)
[2019-02-17] VITALS (84 sets, daily range): BP systolic 64–123; BP diastolic 42–85
--- NOTE | 2019-02-17 | NUR ---
NURSE NOTES: Pt's resting in bed, in no acute distress, bilateral wrist restrains in placed, no adverb events noted. Will continue to monitor
[2019-02-17] MEDS: SODIUM CHLORIDE IV SCH ×2 (01:35→08:49)
[2019-02-17] MEDS: SODIUM BICARBONATE IV SCH ×2 (01:35→08:49)
--- NOTE | 2019-02-17 02:00 | NUR ---
NURSE NOTES: Pt's resting in bed, in no acute distress. VS stable with max of Levophed and Vasopressin. Will continue to monitor.
--- NOTE | 2019-02-17 04:00 | NUR ---
NURSE NOTES: Pt's resting in bed, in no acute distress. VS stable. Will continue to monitor.
--- NOTE | 2019-02-17 06:00 | NUR ---
NURSE NOTES: Pt's resting in bed, in no acute distress. VS stable. Noted moderate amount of melena. Dr Bloom awarejen. Will continue to monitor.
[2019-02-17] MEDS ORDERED: D5W 275ml ONE ×2 (06:01→08:59)
[2019-02-17] MEDS ORDERED: NS 275ml ONE ×3 (06:01→19:30)
[2019-02-17] MEDS: Phenytoin 100mg cap ORAL SCH ×3 (06:26→22:49)
--- NOTE | 2019-02-17 07:00 | NUR ---
HAND-OFF: Report given to ESHA Guardado.
--- NOTE | 2019-02-17 07:01 | NUR ---
NURSE NOTES: Received patient from ESHA Hunter. Patient blood pressure 106/66, HR 124, temp 99.1, and RR 26. Patient sightly restless at this time but drowsy. Patient on bilateral soft wrist restraint due to patient witnessed attempting to remove ETT/OGT. Patient on seizure precaution. Patient intubated with ETT 8cm with 24cm at the lip line. Setting AC 26, tidal volume 600, Patient NPO with coffee ground gastric secretion. Patient has oral gastric tube that is patent and verified with auscultation at this time. Patient has black stool. Patient skin intact. Patient has delgado for urine retention with pink, blood tinged urine. Patient has right forearm 20 gauge PIV that is patent and asymptomatic at this time. Patient has left femoral triple lumen catheter that is patent, asymptomatic, and dressing intact. Patient on levophed drip at 30mcg/min and vasopressin 0.04units/min. patient blood pressure stable at 108/60. Will continue to monitor blood pressure and titrate drips per protocol. Patient running normal saline with 2 amp Bicarb at 125mL/hr and banana bag at 125mL/hr. Patient bed in low position with bed alarm on and call light in reach at this time. Patient labs pending this morning. Will follow up.
[2019-02-17 07:22] LABS: HEMATOCRIT 24.7 % (42.0-52.0); HEMOGLOBIN 8.2 G/DL (14.2-18.0); MEAN CORPUSCULAR VOLUME 100 FL (80-99); PLATELET COUNT 50 K/UL (150-450); RED BLOOD COUNT 2.47 M/UL (4.70-6.10); RED CELL DISTRIBUTION WIDTH 14.4 % (11.6-14.8); WHITE BLOOD COUNT 18.9 K/UL (4.8-10.8)
[2019-02-17 07:29] LABS: INR 1.9 (0.9-1.1)
[2019-02-17 07:30] LABS: AMMONIA 93 umol/L (11-32)
--- NOTE | 2019-02-17 07:48 | General Progress Note ---
Assessment/Plan Status: deteriorating Assessment/Plan: (1) Coffee ground emesis (2) Episode of confusion (3) Alcohol withdrawal seizure (4) Electrolyte and fluid disorder (5) Non-compliance (6) Sepsis/DIC (7) coagulopathic Plan black stools per nurses high risk patient, consider EGD on Tuesday if needed ppi IV Q 12 monitor H&H maintain NPO Follow-up ID recommendations given leukocytosis OB stool r/o GI bleed monitor H&H, prn transfusions IV hydration plus electrolyte correction fu labs Subjective ROS Limited/Unobtainable: No Allergies: Coded Allergies: No Known Allergies (Unverified , 02/10/15) Objective Last 24 Hour Vital Signs Date Time Temp Pulse Resp B/P (MAP) Pulse Ox O2 Delivery O2 Flow Rate FiO2 02/17/19 07:18 124 26 40 02/17/19 07:00 131 25 101/66 (78) 99 02/17/19 06:30 131 25 93/63 (73) 99 02/17/19 06:27 105/73 02/17/19 06:15 151 25 105/73 (84) 99 02/17/19 06:00 145 26 115/68 (84) 99 02/17/19 05:45 155 25 119/72 (88) 98 02/17/19 05:40 99.5 02/17/19 05:30 144 28 105/60 (75) 99 02/17/19 05:16 146 29 40 02/17/19 05:15 143 25 121/72 (88) 100 02/17/19 05:00 150 23 101/75 (84) 98 02/17/19 04:45 150 26 116/65 (82) 97 02/17/19 04:30 148 25 96/71 (79) 02/17/19 04:15 153 26 117/69 (85) 95 02/17/19 04:00 141 22 103/72 (82) 02/17/19 04:00 Mechanical Ventilator 02/17/19 04:00 140 02/17/19 03:45 140 26 103/63 (76) 86 02/17/19 03:30 144 28 97/59 (72) 91 02/17/19 03:15 151 23 107/77 (87) 100 02/17/19 03:03 140 26 40 02/17/19 03:00 145 24 103/69 (80) 100 02/17/19 02:45 147 27 112/79 (90) 100 02/17/19 02:30 138 26 102/85 (91) 100 02/17/19 02:00 143 25 90/63 (72) 100 02/17/19 01:35 96/65 02/17/19 01:30 147 26 96/65 (75) 80 02/17/19 01:16 145 32 40 02/17/19 01:00 135 25 105/63 (77) 100 02/17/19 00:30 136 26 101/67 (78) 100 02/17/19 00:00 144 02/17/19 00:00 136 26 96/60 (72) 100 02/17/19 00:00 Mechanical Ventilator 02/16/19 23:30 137 27 96/61 (73) 100 02/16/19 23:06 142 31 40 02/16/19 23:00 136 27 89/64 (72) 100 02/16/19 22:30 140 29 86/55 (65) 100 02/16/19 22:00 89/50 02/16/19 22:00 143 29 89/50 (63) 100 02/16/19 21:45 149 33 84/48 (60) 100 02/16/19 21:30 145 26 108/63 (78) 100 02/16/19 21:15 142 30 81/53 (62) 100 02/16/19 21:03 140 30 40 02/16/19 21:00 84/48 02/16/19 21:00 142 26 84/45 (58) 100 02/16/19 20:56 93/68 02/16/19 20:45 148 30 93/68 (76) 100 02/16/19 20:30 147 32 94/58 (70) 100 02/16/19 20:15 152 27 103/86 (92) 100 02/16/19 20:00 99.4 148 26 97/62 (74) 100 02/16/19 20:00 103/86 02/16/19 20:00 Mechanical Ventilator 02/16/19 20:00 140 02/16/19 19:00 141 26 91/53 (66) 100 02/16/19 18:57 142 28 40 02/16/19 18:00 140 26 78/52 (61) 100 02/16/19 17:02 139 26 40 02/16/19 17:00 138 27 81/59 (66) 100 02/16/19 16:00 99.3 140 26 90/58 (69) 100 02/16/19 16:00 Mechanical Ventilator 02/16/19 16:00 139 02/16/19 15:55 95/67 02/16/19 15:13 148 26 40 02/16/19 15:00 148 25 95/67 (76) 100 02/16/19 14:30 148 22 93/50 (64) 100 02/16/19 14:00 150 16 96/71 (79) 100 02/16/19 13:30 146 24 104/56 (72) 100 02/16/19 13:00 150 23 102/54 (70) 100 02/16/19 12:58 149 22 50 02/16/19 12:30 150 20 100/58 (72) 100 02/16/19 12:00 99.2 149 25 108/70 (83) 87 02/16/19 12:00 Mechanical Ventilator 02/16/19 12:00 142 02/16/19 11:30 138 31 98/53 (68) 100 02/16/19 11:26 86/51 02/16/19 11:11 139 28 86/51 (63) 98 02/16/19 11:00 139 28 98 02/16/19 10:57 143 39 100 Facial 100 02/16/19 10:30 143 22 86/59 (68) 99 02/16/19 10:00 143 36 88/37 (54) 100 02/16/19 09:23 79/54 02/16/19 09:15 139 38 100 Facial 50 02/16/19 09:00 144 43 63/34 (44) 100 02/16/19 08:30 154 35 81/50 (60) 100 02/16/19 08:00 Bi-pap 02/16/19 08:00 156 02/16/19 08:00 99.0 157 35 79/54 (62) 100 Intake and Output 02/16/19 02/17/19 18:59 06:59 Intake Total 2806.78 ml 3123.40 ml Output Total 830 ml 440 ml Balance 1976.78 ml 2683.40 ml IV Total 2806.78 ml 3123.40 ml Output Urine Total 230 ml 440 ml Gastric Drainage Total 600 ml # Bowel Movements 1 Laboratory Tests 02/16/19 09:50: White Blood Count 40.2*H, Red Blood Count 2.66L, Hemoglobin 8.8L, Hematocrit 28.3L, Mean Corpuscular Volume 107H, Mean Corpuscular Hemoglobin 33.2H, Mean Corpuscular Hemoglobin Concent 31.2L, Red Cell Distribution Width 14.4, Platelet Count 73L, Mean Platelet Volume 8.2, Neutrophils (%) (Auto) , Lymphocytes (%) (Auto) , Monocytes (%) (Auto) , Eosinophils (%) (Auto) , Basophils (%) (Auto) , Differential Total Cells Counted 100, Neutrophils % ( Manual) 58, Lymphocytes % (Manual) 11L, Monocytes % (Manual) 12H, Eosinophils % (Manual) 0, Basophils % (Manual) 0, Metamyelocytes % 2H, Band Neutrophils 17H, Platelet Estimate DecreasedL, Platelet Morphology Normal, Hypochromasia 1+, Anisocytosis 1+, Macrocytosis 1+, D-Dimer 17.05H, Sodium Level 149H, Potassium Level 3.9, Chloride Level 113H, Carbon Dioxide Level 13L, Anion Gap 23H, Blood Urea Nitrogen 16, Creatinine 2.2H, Estimat Glomerular Filtration Rate 37.8, Glucose Level 112H, Lactic Acid Level 17.00H, Calcium Level 7.7L, Total Bilirubin 1.7H, Direct Bilirubin 1.1H, Aspartate Amino Transf (AST/SGOT) 109H, Alanine Aminotransferase (ALT/SGPT) 27, Alkaline Phosphatase 39L, Total Protein 4.6L, Albumin 1.8L, Globulin 2.8, Albumin/Globulin Ratio 0.6L 02/16/19 10:25: Arterial Blood pH 7.240*L, Arterial Blood Partial Pressure CO2 19.4*L, Arterial Blood Partial Pressure O2 145.2H, Arterial Blood HCO3 8.2*L, Arterial Blood Oxygen Saturation 98.0, Arterial Blood Base Excess -17.3*L, Cesar Test Positive 02/16/19 11:15: Vancomycin Level Trough 13.3H 02/16/19 13:50: Arterial Blood pH 7.130*L, Arterial Blood Partial Pressure CO2 42.1, Arterial Blood Partial Pressure O2 127.5H, Arterial Blood HCO3 13.7*L, Arterial Blood Oxygen Saturation 97.1, Arterial Blood Base Excess -14.6*L, Cesar Test Positive 02/16/19 15:00: White Blood Count 40.1*H, Red Blood Count 2.80L, Hemoglobin 9.2L, Hematocrit 29.6L, Mean Corpuscular Volume 106H, Mean Corpuscular Hemoglobin 33.0H, Mean Corpuscular Hemoglobin Concent 31.2L, Red Cell Distribution Width 14.8, Platelet Count 75L, Mean Platelet Volume 11.4H, Neutrophils (%) (Auto) , Lymphocytes (%) (Auto) , Monocytes (%) (Auto) , Eosinophils (%) (Auto) , Basophils (%) (Auto) , Neutrophils % (Manual) [Pending], Lymphocytes % (Manual) [Pending], Platelet Estimate [Pending], Platelet Morphology [Pending], Lactic Acid Level 10.10H 02/17/19 06:30: White Blood Count [Pending], Red Blood Count [Pending], Hemoglobin [Pending], Hematocrit [Pending], Mean Corpuscular Volume [Pending], Mean Corpuscular Hemoglobin [Pending], Mean Corpuscular Hemoglobin Concent [Pending], Red Cell Distribution Width [Pending], Platelet Count [Pending], Mean Platelet Volume [ Pending], Neutrophils (%) (Auto) [Pending], Lymphocytes (%) (Auto) [Pending], Monocytes (%) (Auto) [Pending], Eosinophils (%) (Auto) [Pending], Basophils (%) (Auto) [Pending], Lactic Acid Level 5.30H, Prothrombin Time 19.9H, Prothromb Time International Ratio 1.9H, Sodium Level [Pending], Potassium Level [Pending] , Chloride Level [Pending], Carbon Dioxide Level [Pending], Blood Urea Nitrogen [Pending], Creatinine [Pending], Estimat Glomerular Filtration Rate [Pending], Glucose Level [Pending], Hemoglobin A1c 4.5, Uric Acid [Pending], Calcium Level [Pending], Phosphorus Level [Pending], Magnesium Level [Pending], Iron Level [ Pending], Unsaturated Iron Binding [Pending], Ferritin [Pending], Total Bilirubin [Pending], Gamma Glutamyl Transpeptidase [Pending], Aspartate Amino Transf (AST/SGOT) [Pending], Alanine Aminotransferase (ALT/SGPT) [Pending], Alkaline Phosphatase [Pending], Ammonia 93H, Troponin I [Pending], C-Reactive Protein, Quantitative [Pending], Pro-B-Type Natriuretic Peptide [Pending], Total Protein [Pending], Albumin [Pending], Globulin [Pending], Triglycerides Level [Pending], Cholesterol Level [Pending], LDL Cholesterol [Pending], HDL Cholesterol [Pending], Cholesterol/HDL Ratio [Pending], Vitamin B12 Level [ Pending], Folate [Pending], Thyroid Stimulating Hormone (TSH) [Pending], Cortisol AM Sample [Pending], Random Vancomycin Level [Pending], Phenytoin ( Dilantin) Level [Pending] Height (Feet): 5 Height (Inches): 5.00 Weight (Pounds): 130 General Appearance: lethargic EENT: normal ENT inspection Neck: supple Cardiovascular: bradycardia Respiratory/Chest: decreased breath sounds Abdomen: normal bowel sounds, non tender, soft Extremities: non-tender Jones Bloom MD Feb 17, 2019 07:48
[2019-02-17 07:54] LABS: ALANINE AMINOTRANSFERASE 33 U/L (12-78); ALBUMIN 1.7 G/DL (3.4-5.0); ALBUMIN/GLOBULIN RATIO 0.6 (1.0-2.7); ALKALINE PHOSPHATASE 45 U/L (46-116); ANION GAP 9 mmol/L (5-15); ASPARTATE AMINO TRANSFERASE 125 U/L (15-37); BILIRUBIN,TOTAL 3.5 MG/DL (0.2-1.0); CALCIUM 7.7 MG/DL (8.5-10.1); CARBON DIOXIDE 27 MMOL/L (21-32); CHLORIDE 114 MMOL/L (98-107); CREATININE 1.3 MG/DL (0.55-1.30); POTASSIUM 2.9 MMOL/L (3.5-5.1); SODIUM 150 MMOL/L (136-145)
[2019-02-17 07:56] LABS: BILIRUBIN,DIRECT 2.7 MG/DL (0.0-0.3)
[2019-02-17 08:00] LABS: % IRON SATURATION 99 % (15-50); IRON 91 ug/dL (50-175); TOTAL IRON BINDING CAPACITY 92 ug/dL (250-450)
[2019-02-17 08:02] LABS: BLOOD UREA NITROGEN 24 mg/dL (7-18)
[2019-02-17 08:06] LABS: GAMMA GLUTAMYL TRANSPEPTIDASE 358 U/L (5-85)
[2019-02-17 08:14] LABS: CHOLESTEROL < 50 MG/DL (< 200); FERRITIN 543 NG/ML (8-388); HDL CHOLESTEROL 6 MG/DL (40-60); TRIGLYCERIDES 81 MG/DL (30-150)
[2019-02-17] MEDS: Vasopressin 100 UNITS in NS 95 ML IV SCH (08:15)
--- NOTE | 2019-02-17 08:22 | NUR ---
NURSE NOTES: Dr Bloom notified regarding Hgb 8.2, Hct 24.7, and platelet of 50 today as well as black stool and coffee ground emesis. No new orders received.
[2019-02-17 08:28] LABS: PHOSPHORUS 0.5 MG/DL (2.5-4.9)
[2019-02-17] MEDS: Pantoprazole Inj IVP SCH ×2 (08:48→21:12)
[2019-02-17] MEDS: Thiamine 100mg in D5W 55ml IVPB SCH (08:48)
[2019-02-17] MEDS: Piperacillin/Tazobactam 3.375 GM in NS 110 ML IVPB SCH ×2 (08:49→21:13)
[2019-02-17] MEDS: Docusate 100mg cap ORAL SCH ×3 (08:49→17:50)
[2019-02-17] MEDS: Folic Acid 1 MG, Magnesium Sulfate 2,000 MG, Multivitamin - 12 Injection 10 ML in Sodiu... IV SCH (08:49)
[2019-02-17] MEDS ORDERED: NS 500ML ONE (08:56)
[2019-02-17] MEDS ORDERED: Tubing IV Secondary IV ONE ×3 (08:56→19:30)
[2019-02-17] MEDS: Vancomycin 500mg/D5W 110ml IVPB SCH ×4 (09:06→21:12)
--- NOTE | 2019-02-17 09:23 | NUR ---
RADIOLOGY DEPT., CHEST X-RAY DONE.-P.DYE
[2019-02-17 10:00] LABS: ANION GAP 7 mmol/L (5-15); BLOOD UREA NITROGEN 25 mg/dL (7-18); CALCIUM 7.6 MG/DL (8.5-10.1); CARBON DIOXIDE 29 MMOL/L (21-32); CHLORIDE 115 MMOL/L (98-107); CREATININE 1.3 MG/DL (0.55-1.30); SODIUM 151 MMOL/L (136-145)
[2019-02-17] MEDS ORDERED: Potassium Phosphate 30 MM in NS 275 ML IV SCH ×2 (10:00→16:00)
[2019-02-17 10:18] LABS: ALANINE AMINOTRANSFERASE 37 U/L (12-78); ALBUMIN 1.7 G/DL (3.4-5.0); ALBUMIN/GLOBULIN RATIO 0.7 (1.0-2.7); ALKALINE PHOSPHATASE 49 U/L (46-116); ASPARTATE AMINO TRANSFERASE 131 U/L (15-37); BILIRUBIN,TOTAL 3.6 MG/DL (0.2-1.0)
[2019-02-17 10:19] LABS: BILIRUBIN,DIRECT 2.8 MG/DL (0.0-0.3)
--- NOTE | 2019-02-17 10:24 | Nephrology Progress Note ---
Assessment/Plan Problem List: (1) STEFANI (acute kidney injury) Assessment: Cr lower (2) Septic shock (3) Electrolyte and fluid disorder (4) Abnormal LFTs Assessment - STEFANI (acute kidney injury) - Septic shock - Lactic acid acidosis - Abnormal LFTs - Gastrointestinal bleed - Alcohol withdrawal seizure Plan K and Mag and Phos supplement as needed Hemodynamic support Pressors / Fluids Aim to correct the electrolyte and acid base imbalance monitor renal parameters gastric support per orders Subjective ROS Limited/Unobtainable: Yes Objective Objective Last 24 Hour Vital Signs Date Time Temp Pulse Resp B/P (MAP) Pulse Ox O2 Delivery O2 Flow Rate FiO2 02/17/19 09:07 117 24 40 02/17/19 07:18 124 26 40 02/17/19 07:00 131 25 101/66 (78) 99 02/17/19 06:30 131 25 93/63 (73) 99 02/17/19 06:27 105/73 02/17/19 06:15 151 25 105/73 (84) 99 02/17/19 06:00 145 26 115/68 (84) 99 02/17/19 05:45 155 25 119/72 (88) 98 02/17/19 05:40 99.5 02/17/19 05:30 144 28 105/60 (75) 99 02/17/19 05:16 146 29 40 02/17/19 05:15 143 25 121/72 (88) 100 02/17/19 05:00 150 23 101/75 (84) 98 02/17/19 04:45 150 26 116/65 (82) 97 02/17/19 04:30 148 25 96/71 (79) 02/17/19 04:15 153 26 117/69 (85) 95 02/17/19 04:00 141 22 103/72 (82) 02/17/19 04:00 Mechanical Ventilator 02/17/19 04:00 140 02/17/19 03:45 140 26 103/63 (76) 86 02/17/19 03:30 144 28 97/59 (72) 91 02/17/19 03:15 151 23 107/77 (87) 100 02/17/19 03:03 140 26 40 02/17/19 03:00 145 24 103/69 (80) 100 02/17/19 02:45 147 27 112/79 (90) 100 02/17/19 02:30 138 26 102/85 (91) 100 02/17/19 02:00 143 25 90/63 (72) 100 02/17/19 01:35 96/65 02/17/19 01:30 147 26 96/65 (75) 80 02/17/19 01:16 145 32 40 02/17/19 01:00 135 25 105/63 (77) 100 02/17/19 00:30 136 26 101/67 (78) 100 02/17/19 00:00 144 02/17/19 00:00 136 26 96/60 (72) 100 02/17/19 00:00 Mechanical Ventilator 02/16/19 23:30 137 27 96/61 (73) 100 02/16/19 23:06 142 31 40 02/16/19 23:00 136 27 89/64 (72) 100 02/16/19 22:30 140 29 86/55 (65) 100 02/16/19 22:00 89/50 02/16/19 22:00 143 29 89/50 (63) 100 02/16/19 21:45 149 33 84/48 (60) 100 02/16/19 21:30 145 26 108/63 (78) 100 02/16/19 21:15 142 30 81/53 (62) 100 02/16/19 21:03 140 30 40 02/16/19 21:00 84/48 02/16/19 21:00 142 26 84/45 (58) 100 02/16/19 20:56 93/68 02/16/19 20:45 148 30 93/68 (76) 100 02/16/19 20:30 147 32 94/58 (70) 100 02/16/19 20:15 152 27 103/86 (92) 100 02/16/19 20:00 99.4 148 26 97/62 (74) 100 02/16/19 20:00 103/86 02/16/19 20:00 Mechanical Ventilator 02/16/19 20:00 140 02/16/19 19:00 141 26 91/53 (66) 100 02/16/19 18:57 142 28 40 02/16/19 18:00 140 26 78/52 (61) 100 02/16/19 17:02 139 26 40 02/16/19 17:00 138 27 81/59 (66) 100 02/16/19 16:00 99.3 140 26 90/58 (69) 100 02/16/19 16:00 Mechanical Ventilator 02/16/19 16:00 139 02/16/19 15:55 95/67 02/16/19 15:13 148 26 40 02/16/19 15:00 148 25 95/67 (76) 100 02/16/19 14:30 148 22 93/50 (64) 100 02/16/19 14:00 150 16 96/71 (79) 100 02/16/19 13:30 146 24 104/56 (72) 100 02/16/19 13:00 150 23 102/54 (70) 100 02/16/19 12:58 149 22 50 02/16/19 12:30 150 20 100/58 (72) 100 02/16/19 12:00 99.2 149 25 108/70 (83) 87 02/16/19 12:00 Mechanical Ventilator 02/16/19 12:00 142 02/16/19 11:30 138 31 98/53 (68) 100 02/16/19 11:26 86/51 02/16/19 11:11 139 28 86/51 (63) 98 02/16/19 11:00 139 28 98 02/16/19 10:57 143 39 100 Facial 100 02/16/19 10:30 143 22 86/59 (68) 99 Intake and Output 02/16/19 02/17/19 18:59 06:59 Intake Total 2806.78 ml 3123.40 ml Output Total 830 ml 440 ml Balance 1976.78 ml 2683.40 ml IV Total 2806.78 ml 3123.40 ml Output Urine Total 230 ml 440 ml Gastric Drainage Total 600 ml # Bowel Movements 1 Laboratory Tests 02/16/19 10:25: Arterial Blood pH 7.240*L, Arterial Blood Partial Pressure CO2 19.4*L, Arterial Blood Partial Pressure O2 145.2H, Arterial Blood HCO3 8.2*L, Arterial Blood Oxygen Saturation 98.0, Arterial Blood Base Excess -17.3*L, Cesar Test Positive 02/16/19 11:15: Vancomycin Level Trough 13.3H 02/16/19 13:50: Arterial Blood pH 7.130*L, Arterial Blood Partial Pressure CO2 42.1, Arterial Blood Partial Pressure O2 127.5H, Arterial Blood HCO3 13.7*L, Arterial Blood Oxygen Saturation 97.1, Arterial Blood Base Excess -14.6*L, Cesar Test Positive 02/16/19 15:00: White Blood Count 40.1*H, Red Blood Count 2.80L, Hemoglobin 9.2L, Hematocrit 29.6L, Mean Corpuscular Volume 106H, Mean Corpuscular Hemoglobin 33.0H, Mean Corpuscular Hemoglobin Concent 31.2L, Red Cell Distribution Width 14.8, Platelet Count 75L, Mean Platelet Volume 11.4H, Neutrophils (%) (Auto) , Lymphocytes (%) (Auto) , Monocytes (%) (Auto) , Eosinophils (%) (Auto) , Basophils (%) (Auto) , Differential Total Cells Counted 100, Neutrophils % ( Manual) 30L, Lymphocytes % (Manual) 2L, Monocytes % (Manual) 4, Eosinophils % ( Manual) 0, Basophils % (Manual) 0, Metamyelocytes % 3H, Myelocytes % 5H, Blast Cells % 2*H, Band Neutrophils 54H, Platelet Estimate DecreasedL, Platelet Morphology See comment, Giant Platelets Rare, Anisocytosis 1+, Macrocytosis 2+, Lactic Acid Level 10.10H 02/17/19 06:30: White Blood Count 18.9#H, Red Blood Count 2.47L, Hemoglobin 8.2L, Hematocrit 24.7L, Mean Corpuscular Volume 100H, Mean Corpuscular Hemoglobin 33.5H, Mean Corpuscular Hemoglobin Concent 33.4, Red Cell Distribution Width 14.4, Platelet Count 50L, Mean Platelet Volume 9.2, Neutrophils (%) (Auto) , Lymphocytes (%) ( Auto) , Monocytes (%) (Auto) , Eosinophils (%) (Auto) , Basophils (%) (Auto) , Differential Total Cells Counted 100, Neutrophils % (Manual) 53, Lymphocytes % ( Manual) 8L, Monocytes % (Manual) 9, Eosinophils % (Manual) 1, Basophils % ( Manual) 0, Metamyelocytes % 1H, Band Neutrophils 28H, Nucleated Red Blood Cells 1, Platelet Estimate DecreasedL, Platelet Morphology Normal, Macrocytosis 1+, Prothrombin Time 19.9H, Prothromb Time International Ratio 1.9H, Sodium Level 150H, Potassium Level 2.9L, Chloride Level 114H, Carbon Dioxide Level 27, Anion Gap 9, Blood Urea Nitrogen 24H, Creatinine 1.3, Estimat Glomerular Filtration Rate > 60, Glucose Level 148H, Hemoglobin A1c 4.5, Lactic Acid Level 5.30H, Uric Acid 3.7, Calcium Level 7.7L, Phosphorus Level 0.5*L, Magnesium Level 1.8, Iron Level 91, Total Iron Binding Capacity 92L, Percent Iron Saturation 99H, Unsaturated Iron Binding 1L, Ferritin 543H, Total Bilirubin 3.5H, Direct Bilirubin 2.7H, Gamma Glutamyl Transpeptidase 358H, Aspartate Amino Transf (AST/ SGOT) 125H, Alanine Aminotransferase (ALT/SGPT) 33, Alkaline Phosphatase 45L, Ammonia 93H, Troponin I 0.113H, C-Reactive Protein, Quantitative 8.2H, Pro-B- Type Natriuretic Peptide 2467H, Total Protein 4.5L, Albumin 1.7L, Globulin 2.8, Albumin/Globulin Ratio 0.6L, Triglycerides Level 81, Cholesterol Level < 50, LDL Cholesterol 16, HDL Cholesterol 6L, Cholesterol/HDL Ratio 8.3H, Vitamin B12 Level 1852H, Folate 7.3L, Thyroid Stimulating Hormone (TSH) 0.216L, Cortisol AM Sample [Pending], Random Vancomycin Level 10.7, Phenytoin (Dilantin) Level 7.2L 02/17/19 08:21: Sodium Level 151H, Potassium Level 3.0L, Chloride Level 115H, Carbon Dioxide Level 29, Anion Gap 7, Blood Urea Nitrogen 25H, Creatinine 1.3, Estimat Glomerular Filtration Rate > 60, Glucose Level 157H, Lactic Acid Level 5.60H, Calcium Level 7.6L, Total Bilirubin 3.6H, Direct Bilirubin 2.8H, Aspartate Amino Transf (AST/SGOT) 131H, Alanine Aminotransferase (ALT/SGPT) 37, Alkaline Phosphatase 49, Total Protein 4.2L, Albumin 1.7L, Globulin 2.5, Albumin/ Globulin Ratio 0.7L 02/17/19 09:25: Phosphorus Level [Pending] Height (Feet): 5 Height (Inches): 5.00 Weight (Pounds): 130 General Appearance: mild distress EENT: other - vented Cardiovascular: tachycardia Respiratory/Chest: decreased breath sounds Abdomen: distended Scotty Bailon MD Feb 17, 2019 10:24
--- NOTE | 2019-02-17 10:52 | NUR ---
NURSE NOTES: Left message for Dr Bailon regarding repeat CMP potassium value of 3.0 and phosphorous value of less than 0.5. Awaiting call back.
--- NOTE | 2019-02-17 12:00 | NUR ---
NURSE NOTES: Patient blood pressure 98/62, HR 118, temp 98.9, and RR 27. Patient sleeping. Patient tolerating new ventilator setting of AC 26, tidal volume 500. Patient NPO with coffee ground gastric secretion. Patient has oral gastric tube that is patent and verified with auscultation at this time. Patient was asking for something to drink but he was told that he cannot have it while on ventilator. Patient had tarry black stool times 2 this morning. Patient skin intact. Patient has delgado for urine retention with pink, blood tinged urine. Patient has right forearm 20 gauge PIV that is patent and asymptomatic and running Zosyn at this time. Patient has left femoral triple lumen catheter that is patent, asymptomatic, and dressing intact. Patient on levophed drip at 30mcg/min and vasopressin 0.03 units/min. Dr Villasenor came to see the patient and he asked for the patient to be weaned from Vasopressin first. Will continue to monitor blood pressure and titrate drips per protocol. Patient running normal saline at 100mL/hr, banana bag at 125mL/hr, and 30mmol potassium phosphate at 47.5mL/hr. Dr Bailon ordered a total of 60mmol. Second bag due for 1600. Patient bed in low position with bed alarm on and call light in reach at this time.
--- NOTE | 2019-02-17 12:01 | Surgery Progress Note ---
Surgery Progress Note Subjective Procedure Performed left femoral central venous catheter insertion Additional Comments tachycardic fevers leukocytosis much improved lactic acidosis improved electrolytes abnormal exam stable weaning off pressors Objective Last 24 Hour Vital Signs Date Time Temp Pulse Resp B/P (MAP) Pulse Ox O2 Delivery O2 Flow Rate FiO2 02/17/19 11:32 82/55 02/17/19 11:15 110 26 40 02/17/19 09:07 117 24 40 02/17/19 07:18 124 26 40 02/17/19 07:00 131 25 101/66 (78) 99 02/17/19 06:30 131 25 93/63 (73) 99 02/17/19 06:27 105/73 02/17/19 06:15 151 25 105/73 (84) 99 02/17/19 06:00 145 26 115/68 (84) 99 02/17/19 05:45 155 25 119/72 (88) 98 02/17/19 05:40 99.5 02/17/19 05:30 144 28 105/60 (75) 99 02/17/19 05:16 146 29 40 02/17/19 05:15 143 25 121/72 (88) 100 02/17/19 05:00 150 23 101/75 (84) 98 02/17/19 04:45 150 26 116/65 (82) 97 02/17/19 04:30 148 25 96/71 (79) 02/17/19 04:15 153 26 117/69 (85) 95 02/17/19 04:00 141 22 103/72 (82) 02/17/19 04:00 Mechanical Ventilator 02/17/19 04:00 140 02/17/19 03:45 140 26 103/63 (76) 86 02/17/19 03:30 144 28 97/59 (72) 91 02/17/19 03:15 151 23 107/77 (87) 100 02/17/19 03:03 140 26 40 02/17/19 03:00 145 24 103/69 (80) 100 02/17/19 02:45 147 27 112/79 (90) 100 02/17/19 02:30 138 26 102/85 (91) 100 02/17/19 02:00 143 25 90/63 (72) 100 02/17/19 01:35 96/65 02/17/19 01:30 147 26 96/65 (75) 80 02/17/19 01:16 145 32 40 02/17/19 01:00 135 25 105/63 (77) 100 02/17/19 00:30 136 26 101/67 (78) 100 02/17/19 00:00 144 02/17/19 00:00 136 26 96/60 (72) 100 02/17/19 00:00 Mechanical Ventilator 02/16/19 23:30 137 27 96/61 (73) 100 02/16/19 23:06 142 31 40 02/16/19 23:00 136 27 89/64 (72) 100 02/16/19 22:30 140 29 86/55 (65) 100 02/16/19 22:00 89/50 02/16/19 22:00 143 29 89/50 (63) 100 02/16/19 21:45 149 33 84/48 (60) 100 02/16/19 21:30 145 26 108/63 (78) 100 02/16/19 21:15 142 30 81/53 (62) 100 02/16/19 21:03 140 30 40 02/16/19 21:00 84/48 02/16/19 21:00 142 26 84/45 (58) 100 02/16/19 20:56 93/68 02/16/19 20:45 148 30 93/68 (76) 100 02/16/19 20:30 147 32 94/58 (70) 100 02/16/19 20:15 152 27 103/86 (92) 100 02/16/19 20:00 99.4 148 26 97/62 (74) 100 02/16/19 20:00 103/86 02/16/19 20:00 Mechanical Ventilator 02/16/19 20:00 140 02/16/19 19:00 141 26 91/53 (66) 100 02/16/19 18:57 142 28 40 02/16/19 18:00 140 26 78/52 (61) 100 02/16/19 17:02 139 26 40 02/16/19 17:00 138 27 81/59 (66) 100 02/16/19 16:00 99.3 140 26 90/58 (69) 100 02/16/19 16:00 Mechanical Ventilator 02/16/19 16:00 139 02/16/19 15:55 95/67 02/16/19 15:13 148 26 40 02/16/19 15:00 148 25 95/67 (76) 100 02/16/19 14:30 148 22 93/50 (64) 100 02/16/19 14:00 150 16 96/71 (79) 100 02/16/19 13:30 146 24 104/56 (72) 100 02/16/19 13:00 150 23 102/54 (70) 100 02/16/19 12:58 149 22 50 02/16/19 12:30 150 20 100/58 (72) 100 I&O Intake and Output 02/16/19 02/17/19 18:59 06:59 Intake Total 2806.78 ml 3123.40 ml Output Total 830 ml 440 ml Balance 1976.78 ml 2683.40 ml IV Total 2806.78 ml 3123.40 ml Output Urine Total 230 ml 440 ml Gastric Drainage Total 600 ml # Bowel Movements 1 Dressing: dry Wound: clean Cardiovascular: RSR Respiratory: decreased breath sounds Abdomen: soft, non-tender, present bowel sounds, non-distended Extremities: no edema, no tenderness, no cyanosis Laboratory Tests Test 02/16/19 13:50 02/16/19 15:00 02/17/19 06:30 02/17/19 08:21 Arterial Blood pH 7.130 (7.350-7.450) Arterial Blood Partial Pressure CO2 42.1 mmHg (35.0-45.0) Arterial Blood Partial Pressure O2 127.5 mmHg (75.0-100.0) H Arterial Blood HCO3 13.7 mmol/L (22.0-26.0) *L Arterial Blood Oxygen Saturation 97.1 % (95-100) Arterial Blood Base Excess -14.6 (-2-2) *L Cesar Test Positive White Blood Count 40.1 K/UL (4.8-10.8) *H 18.9 K/UL (4.8-10.8) #H Red Blood Count 2.80 M/UL (4.70-6.10) L 2.47 M/UL (4.70-6.10) L Hemoglobin 9.2 G/DL (14.2-18.0) L 8.2 G/DL (14.2-18.0) L Hematocrit 29.6 % (42.0-52.0) L 24.7 % (42.0-52.0) L Mean Corpuscular Volume 106 FL (80-99) H 100 FL (80-99) H Mean Corpuscular Hemoglobin 33.0 PG (27.0-31.0) H 33.5 PG (27.0-31.0) H Mean Corpuscular Hemoglobin Concent 31.2 G/DL (32.0-36.0) L 33.4 G/DL (32.0-36.0) Red Cell Distribution Width 14.8 % (11.6-14.8) 14.4 % (11.6-14.8) Platelet Count 75 K/UL (150-450) L 50 K/UL (150-450) L Mean Platelet Volume 11.4 FL (6.5-10.1) H 9.2 FL (6.5-10.1) Neutrophils (%) (Auto) % (45.0-75.0) % (45.0-75.0) Lymphocytes (%) (Auto) % (20.0-45.0) % (20.0-45.0) Monocytes (%) (Auto) % (1.0-10.0) % (1.0-10.0) Eosinophils (%) (Auto) % (0.0-3.0) % (0.0-3.0) Basophils (%) (Auto) % (0.0-2.0) % (0.0-2.0) Differential Total Cells Counted 100 100 Neutrophils % (Manual) 30 % (45-75) L 53 % (45-75) Lymphocytes % (Manual) 2 % (20-45) L 8 % (20-45) L Monocytes % (Manual) 4 % (1-10) 9 % (1-10) Eosinophils % (Manual) 0 % (0-3) 1 % (0-3) Basophils % (Manual) 0 % (0-2) 0 % (0-2) Metamyelocytes % 3 % (0-0) H 1 % (0-0) H Myelocytes % 5 % (0-0) H Blast Cells % 2 % (0-0) *H Band Neutrophils 54 % (0-8) H 28 % (0-8) H Platelet Estimate Decreased L Decreased L Platelet Morphology See comment Normal Giant Platelets Rare Anisocytosis 1+ Macrocytosis 2+ 1+ Lactic Acid Level 10.10 mmol/L (0.4-2.0) H 5.30 mmol/L (0.4-2.0) H 5.60 mmol/L (0.66-2.22) H Nucleated Red Blood Cells 1 /100 WBC Prothrombin Time 19.9 SEC (9.30-11.50) H Prothromb Time International Ratio 1.9 (0.9-1.1) H Sodium Level 150 MMOL/L (136-145) H 151 MMOL/L (136-145) H Potassium Level 2.9 MMOL/L (3.5-5.1) L 3.0 MMOL/L (3.5-5.1) L Chloride Level 114 MMOL/L (98-107) H 115 MMOL/L (98-107) H Carbon Dioxide Level 27 MMOL/L (21-32) 29 MMOL/L (21-32) Anion Gap 9 mmol/L (5-15) 7 mmol/L (5-15) Blood Urea Nitrogen 24 mg/dL (7-18) H 25 mg/dL (7-18) H Creatinine 1.3 MG/DL (0.55-1.30) 1.3 MG/DL (0.55-1.30) Estimat Glomerular Filtration Rate > 60 mL/min (>60) > 60 mL/min (>60) Glucose Level 148 MG/DL (74-106) H 157 MG/DL (74-106) H Hemoglobin A1c 4.5 % (4.3-6.0) Uric Acid 3.7 MG/DL (2.6-7.2) Calcium Level 7.7 MG/DL (8.5-10.1) L 7.6 MG/DL (8.5-10.1) L Phosphorus Level 0.5 MG/DL (2.5-4.9) *L Magnesium Level 1.8 MG/DL (1.8-2.4) Iron Level 91 ug/dL (50-175) Total Iron Binding Capacity 92 ug/dL (250-450) L Percent Iron Saturation 99 % (15-50) H Unsaturated Iron Binding 1 ug/dL (112-346) L Ferritin 543 NG/ML (8-388) H Total Bilirubin 3.5 MG/DL (0.2-1.0) H 3.6 MG/DL (0.2-1.0) H Direct Bilirubin 2.7 MG/DL (0.0-0.3) H 2.8 MG/DL (0.0-0.3) H Gamma Glutamyl Transpeptidase 358 U/L (5-85) H Aspartate Amino Transf (AST/SGOT) 125 U/L (15-37) H 131 U/L (15-37) H Alanine Aminotransferase (ALT/SGPT) 33 U/L (12-78) 37 U/L (12-78) Alkaline Phosphatase 45 U/L (46-116) L 49 U/L (46-116) Ammonia 93 umol/L (11-32) H Troponin I 0.113 ng/mL (0.000-0.056) C-Reactive Protein, Quantitative 8.2 mg/dL (0.00-0.90) H Pro-B-Type Natriuretic Peptide 2467 pg/mL (0-125) H Total Protein 4.5 G/DL (6.4-8.2) L 4.2 G/DL (6.4-8.2) L Albumin 1.7 G/DL (3.4-5.0) L 1.7 G/DL (3.4-5.0) L Globulin 2.8 g/dL 2.5 g/dL Albumin/Globulin Ratio 0.6 (1.0-2.7) L 0.7 (1.0-2.7) L Triglycerides Level 81 MG/DL (30-150) Cholesterol Level < 50 MG/DL (< 200) LDL Cholesterol 16 mg/dL (<100) HDL Cholesterol 6 MG/DL (40-60) L Cholesterol/HDL Ratio 8.3 (3.3-4.4) H Vitamin B12 Level 1852 PG/ML (193-986) H Folate 7.3 NG/ML (8.6-58.9) L Thyroid Stimulating Hormone (TSH) 0.216 uiU/mL (0.358-3.740) Cortisol AM Sample Pending Random Vancomycin Level 10.7 ug/mL Phenytoin (Dilantin) Level 7.2 ug/mL (10-20) L Test 7/13/19 09:25 02/17/19 11:07 Phosphorus Level < 0.5 MG/DL (2.5-4.9) *L Arterial Blood pH 7.570 (7.350-7.450) Arterial Blood Partial Pressure CO2 28.7 mmHg (35.0-45.0) L Arterial Blood Partial Pressure O2 68.5 mmHg (75.0-100.0) L Arterial Blood HCO3 26.1 mmol/L (22.0-26.0) H Arterial Blood Oxygen Saturation 95.2 % (95-100) Arterial Blood Base Excess 4.0 (-2-2) H Cesar Test Positive Plan Problems: (1) Non-compliance Assessment & Plan: Noncompliance with seizure medication with known history of seizures Now had seizure Appreciate neurology input (2) Electrolyte and fluid disorder Assessment & Plan: Likely due to EtOH use and dehydration IV hydration Trend labs (3) Fever (4) Oral thrush (5) Diarrhea (6) Aspiration pneumonia (7) Seizure disorder (8) Tachycardia (9) Altered mental status (10) Alcohol withdrawal seizure (11) Alcohol withdrawal seizure (12) Episode of confusion (13) Coffee ground emesis (14) Gastrointestinal bleed Assessment & Plan: Patient on admission identified to have maroon-colored stool and coffee-ground emesis. Labs noted mild anemia with H&H trending down. No acute active bleed noted but given patient's history high risk for potential ulcers. PPI Appreciate GI input considerations for EGD once stable We will follow with recommendations thank you (15) Sinus tachycardia (16) Septic shock (17) Sepsis Assessment & Plan: Patient septic leukocytosis improved today lactic acidosis improving anemia renal function declining electrolyte disturbance US noted on pressors now but weaning on IV abx intubated on vent support cont with aggressive resuscitation needs CT C/A/P (18) Lactic acid acidosis (19) STEFANI (acute kidney injury) (20) Abnormal LFTs (21) High anion gap metabolic acidosis Juanpablo Marcus Feb 17, 2019 12:01
--- NOTE | 2019-02-17 12:02 | Diagnostic Imaging Report ---
Indication: Dyspnea Comparison: 02/16/2019 A single view chest radiograph was obtained. Findings: Left basilar consolidation with air bronchograms demonstrated. Costophrenic angle is obscured. Heart size is normal. Tubes and lines are stable and satisfactory in position. IMPRESSION: No significant change from the previous exam
--- NOTE | 2019-02-17 12:27 | Infectious Diseases Prog Note ---
Assessment/Plan Assessment/Plan Ful consult dictated: A) 1) sepsis/shock, sirs, leukocytosis, fevers, elevated lactic acid, respiratory failure, vent 2) gram neg bacteremia 3) e.coli uti/pyelonephritis 4) allergies - nkda 5) GIB, etoh, sz P) 1) vancomycin and zosyn, gentamicin 2) check cultures, labs, imaging 3) icu, pressors, vent 4) will f/u Subjective Constitutional: Reports: other - + vent and pressors HEENT: Reports: congestion Respiratory: Reports: shortness of breath Gastrointestinal/Abdominal: Reports: other - tarry black stool; Denies: nausea , vomiting Genitourinary: Reports: other - + delgado Allergies: Coded Allergies: No Known Allergies (Unverified , 02/10/15) Objective Vital Signs Last 24 Hour Vital Signs Date Time Temp Pulse Resp B/P (MAP) Pulse Ox O2 Delivery O2 Flow Rate FiO2 02/17/19 11:32 82/55 02/17/19 11:15 110 26 40 02/17/19 09:07 117 24 40 02/17/19 07:18 124 26 40 02/17/19 07:00 131 25 101/66 (78) 99 02/17/19 06:30 131 25 93/63 (73) 99 02/17/19 06:27 105/73 02/17/19 06:15 151 25 105/73 (84) 99 02/17/19 06:00 145 26 115/68 (84) 99 02/17/19 05:45 155 25 119/72 (88) 98 02/17/19 05:40 99.5 02/17/19 05:30 144 28 105/60 (75) 99 02/17/19 05:16 146 29 40 02/17/19 05:15 143 25 121/72 (88) 100 02/17/19 05:00 150 23 101/75 (84) 98 02/17/19 04:45 150 26 116/65 (82) 97 02/17/19 04:30 148 25 96/71 (79) 02/17/19 04:15 153 26 117/69 (85) 95 02/17/19 04:00 141 22 103/72 (82) 02/17/19 04:00 Mechanical Ventilator 02/17/19 04:00 140 02/17/19 03:45 140 26 103/63 (76) 86 02/17/19 03:30 144 28 97/59 (72) 91 02/17/19 03:15 151 23 107/77 (87) 100 02/17/19 03:03 140 26 40 02/17/19 03:00 145 24 103/69 (80) 100 02/17/19 02:45 147 27 112/79 (90) 100 02/17/19 02:30 138 26 102/85 (91) 100 02/17/19 02:00 143 25 90/63 (72) 100 02/17/19 01:35 96/65 02/17/19 01:30 147 26 96/65 (75) 80 02/17/19 01:16 145 32 40 02/17/19 01:00 135 25 105/63 (77) 100 02/17/19 00:30 136 26 101/67 (78) 100 02/17/19 00:00 144 02/17/19 00:00 136 26 96/60 (72) 100 02/17/19 00:00 Mechanical Ventilator 02/16/19 23:30 137 27 96/61 (73) 100 02/16/19 23:06 142 31 40 02/16/19 23:00 136 27 89/64 (72) 100 02/16/19 22:30 140 29 86/55 (65) 100 02/16/19 22:00 89/50 02/16/19 22:00 143 29 89/50 (63) 100 02/16/19 21:45 149 33 84/48 (60) 100 02/16/19 21:30 145 26 108/63 (78) 100 02/16/19 21:15 142 30 81/53 (62) 100 02/16/19 21:03 140 30 40 02/16/19 21:00 84/48 02/16/19 21:00 142 26 84/45 (58) 100 02/16/19 20:56 93/68 02/16/19 20:45 148 30 93/68 (76) 100 02/16/19 20:30 147 32 94/58 (70) 100 02/16/19 20:15 152 27 103/86 (92) 100 02/16/19 20:00 99.4 148 26 97/62 (74) 100 02/16/19 20:00 103/86 02/16/19 20:00 Mechanical Ventilator 02/16/19 20:00 140 02/16/19 19:00 141 26 91/53 (66) 100 02/16/19 18:57 142 28 40 02/16/19 18:00 140 26 78/52 (61) 100 02/16/19 17:02 139 26 40 02/16/19 17:00 138 27 81/59 (66) 100 02/16/19 16:00 99.3 140 26 90/58 (69) 100 02/16/19 16:00 Mechanical Ventilator 02/16/19 16:00 139 02/16/19 15:55 95/67 02/16/19 15:13 148 26 40 02/16/19 15:00 148 25 95/67 (76) 100 02/16/19 14:30 148 22 93/50 (64) 100 02/16/19 14:00 150 16 96/71 (79) 100 02/16/19 13:30 146 24 104/56 (72) 100 02/16/19 13:00 150 23 102/54 (70) 100 02/16/19 12:58 149 22 50 02/16/19 12:30 150 20 100/58 (72) 100 Height (Feet): 5 Height (Inches): 5.00 Weight (Pounds): 130 General Appearance: other - more alert HEENT: normocephalic, no JVD, other - intubated Abdomen: soft, non tender, no organomegaly, non distended Microbiology Date/Time Source Procedure Growth Status 02/15/19 11:30 Blood Blood Culture - Preliminary Gram Negative Isac Resulted 02/15/19 11:15 Blood Blood Culture - Preliminary Gram Negative Isac Resulted 02/16/19 19:30 Sputum Gram Stain - Final Resulted 02/16/19 19:30 Sputum Sputum Culture Pending Resulted 02/14/19 12:30 Urine,Clean Catch Urine Culture - Final Escherichia Coli Complete Laboratory Tests Test 02/16/19 13:50 02/16/19 15:00 02/17/19 06:30 02/17/19 08:21 Arterial Blood pH 7.130 (7.350-7.450) Arterial Blood Partial Pressure CO2 42.1 mmHg (35.0-45.0) Arterial Blood Partial Pressure O2 127.5 mmHg (75.0-100.0) H Arterial Blood HCO3 13.7 mmol/L (22.0-26.0) *L Arterial Blood Oxygen Saturation 97.1 % (95-100) Arterial Blood Base Excess -14.6 (-2-2) *L Cesar Test Positive White Blood Count 40.1 K/UL (4.8-10.8) *H 18.9 K/UL (4.8-10.8) #H Red Blood Count 2.80 M/UL (4.70-6.10) L 2.47 M/UL (4.70-6.10) L Hemoglobin 9.2 G/DL (14.2-18.0) L 8.2 G/DL (14.2-18.0) L Hematocrit 29.6 % (42.0-52.0) L 24.7 % (42.0-52.0) L Mean Corpuscular Volume 106 FL (80-99) H 100 FL (80-99) H Mean Corpuscular Hemoglobin 33.0 PG (27.0-31.0) H 33.5 PG (27.0-31.0) H Mean Corpuscular Hemoglobin Concent 31.2 G/DL (32.0-36.0) L 33.4 G/DL (32.0-36.0) Red Cell Distribution Width 14.8 % (11.6-14.8) 14.4 % (11.6-14.8) Platelet Count 75 K/UL (150-450) L 50 K/UL (150-450) L Mean Platelet Volume 11.4 FL (6.5-10.1) H 9.2 FL (6.5-10.1) Neutrophils (%) (Auto) % (45.0-75.0) % (45.0-75.0) Lymphocytes (%) (Auto) % (20.0-45.0) % (20.0-45.0) Monocytes (%) (Auto) % (1.0-10.0) % (1.0-10.0) Eosinophils (%) (Auto) % (0.0-3.0) % (0.0-3.0) Basophils (%) (Auto) % (0.0-2.0) % (0.0-2.0) Differential Total Cells Counted 100 100 Neutrophils % (Manual) 30 % (45-75) L 53 % (45-75) Lymphocytes % (Manual) 2 % (20-45) L 8 % (20-45) L Monocytes % (Manual) 4 % (1-10) 9 % (1-10) Eosinophils % (Manual) 0 % (0-3) 1 % (0-3) Basophils % (Manual) 0 % (0-2) 0 % (0-2) Metamyelocytes % 3 % (0-0) H 1 % (0-0) H Myelocytes % 5 % (0-0) H Blast Cells % 2 % (0-0) *H Band Neutrophils 54 % (0-8) H 28 % (0-8) H Platelet Estimate Decreased L Decreased L Platelet Morphology See comment Normal Giant Platelets Rare Anisocytosis 1+ Macrocytosis 2+ 1+ Lactic Acid Level 10.10 mmol/L (0.4-2.0) H 5.30 mmol/L (0.4-2.0) H 5.60 mmol/L (0.66-2.22) H Nucleated Red Blood Cells 1 /100 WBC Prothrombin Time 19.9 SEC (9.30-11.50) H Prothromb Time International Ratio 1.9 (0.9-1.1) H Sodium Level 150 MMOL/L (136-145) H 151 MMOL/L (136-145) H Potassium Level 2.9 MMOL/L (3.5-5.1) L 3.0 MMOL/L (3.5-5.1) L Chloride Level 114 MMOL/L (98-107) H 115 MMOL/L (98-107) H Carbon Dioxide Level 27 MMOL/L (21-32) 29 MMOL/L (21-32) Anion Gap 9 mmol/L (5-15) 7 mmol/L (5-15) Blood Urea Nitrogen 24 mg/dL (7-18) H 25 mg/dL (7-18) H Creatinine 1.3 MG/DL (0.55-1.30) 1.3 MG/DL (0.55-1.30) Estimat Glomerular Filtration Rate > 60 mL/min (>60) > 60 mL/min (>60) Glucose Level 148 MG/DL (74-106) H 157 MG/DL (74-106) H Hemoglobin A1c 4.5 % (4.3-6.0) Uric Acid 3.7 MG/DL (2.6-7.2) Calcium Level 7.7 MG/DL (8.5-10.1) L 7.6 MG/DL (8.5-10.1) L Phosphorus Level 0.5 MG/DL (2.5-4.9) *L Magnesium Level 1.8 MG/DL (1.8-2.4) Iron Level 91 ug/dL (50-175) Total Iron Binding Capacity 92 ug/dL (250-450) L Percent Iron Saturation 99 % (15-50) H Unsaturated Iron Binding 1 ug/dL (112-346) L Ferritin 543 NG/ML (8-388) H Total Bilirubin 3.5 MG/DL (0.2-1.0) H 3.6 MG/DL (0.2-1.0) H Direct Bilirubin 2.7 MG/DL (0.0-0.3) H 2.8 MG/DL (0.0-0.3) H Gamma Glutamyl Transpeptidase 358 U/L (5-85) H Aspartate Amino Transf (AST/SGOT) 125 U/L (15-37) H 131 U/L (15-37) H Alanine Aminotransferase (ALT/SGPT) 33 U/L (12-78) 37 U/L (12-78) Alkaline Phosphatase 45 U/L (46-116) L 49 U/L (46-116) Ammonia 93 umol/L (11-32) H Troponin I 0.113 ng/mL (0.000-0.056) C-Reactive Protein, Quantitative 8.2 mg/dL (0.00-0.90) H Pro-B-Type Natriuretic Peptide 2467 pg/mL (0-125) H Total Protein 4.5 G/DL (6.4-8.2) L 4.2 G/DL (6.4-8.2) L Albumin 1.7 G/DL (3.4-5.0) L 1.7 G/DL (3.4-5.0) L Globulin 2.8 g/dL 2.5 g/dL Albumin/Globulin Ratio 0.6 (1.0-2.7) L 0.7 (1.0-2.7) L Triglycerides Level 81 MG/DL (30-150) Cholesterol Level < 50 MG/DL (< 200) LDL Cholesterol 16 mg/dL (<100) HDL Cholesterol 6 MG/DL (40-60) L Cholesterol/HDL Ratio 8.3 (3.3-4.4) H Vitamin B12 Level 1852 PG/ML (193-986) H Folate 7.3 NG/ML (8.6-58.9) L Thyroid Stimulating Hormone (TSH) 0.216 uiU/mL (0.358-3.740) Cortisol AM Sample Pending Random Vancomycin Level 10.7 ug/mL Phenytoin (Dilantin) Level 7.2 ug/mL (10-20) L Test 02/17/19 09:25 02/17/19 11:07 Phosphorus Level < 0.5 MG/DL (2.5-4.9) *L Arterial Blood pH 7.570 (7.350-7.450) Arterial Blood Partial Pressure CO2 28.7 mmHg (35.0-45.0) L Arterial Blood Partial Pressure O2 68.5 mmHg (75.0-100.0) L Arterial Blood HCO3 26.1 mmol/L (22.0-26.0) H Arterial Blood Oxygen Saturation 95.2 % (95-100) Arterial Blood Base Excess 4.0 (-2-2) H Cesar Test Positive Current Medications Medications (Trade) Dose Ordered Sig/Tonny Route PRN Reason Start Time Stop Time Status Last Admin Dose Admin Acetaminophen (Tylenol) 650 mg Q4H PRN ORAL Mild Pain (Pain Scale 1-3) 02/16/19 00:30 03/16/19 12:29 02/17/19 04:53 Acetaminophen (Tylenol) 650 mg Q4H PRN RECTAL Mild Pain (Pain Scale 1-3) 02/16/19 04:30 03/18/19 04:29 02/16/19 04:31 Bisacodyl (Dulcolax) 10 mg HSPRN PRN RECTAL Constipation 02/16/19 21:00 03/16/19 20:59 Chlorhexidine Gluconate (Stephanie-Hex 2%) 1 applic DAILY@2000 TOPIC 02/16/19 20:00 03/18/19 19:59 02/16/19 20:22 Dextrose (Dextrose 50%) 25 ml Q30M PRN IV Hypoglycemia 02/15/19 22:15 03/16/19 16:14 Dextrose (Dextrose 50%) 50 ml Q30M PRN IV Hypoglycemia 02/15/19 22:15 03/16/19 16:14 02/16/19 06:32 Docusate Sodium (Colace) 100 mg TID ORAL 02/16/19 18:00 03/16/19 20:59 Folic Acid 1 mg/ Magnesium Sulfate 2000 mg/ Multivitamins 10 ml/Sodium Chloride 1,014.2 ml @ 125 mls/ hr Q24H IV 02/16/19 09:00 03/18/19 08:59 02/17/19 08:49 Gentamicin Protocol (Gentamicin pharmacy to dose) 1 ea DAILY PRN MISC Per rx protocol 02/16/19 18:00 03/18/19 17:59 Gentamicin Sulfate 300 mg/ Sodium Chloride 117.5 ml @ 117.5 mls/ hr Q36H IVPB 02/17/19 17:00 02/24/19 16:59 Iopamidol (Isovue-300 100ml) 100 ml NOW PRN INJ Radiology Procedure 02/16/19 12:00 02/18/19 11:59 Lorazepam (Ativan 2mg/ml 1ml) 1 mg Q2H PRN IV For Anxiety 02/16/19 09:00 02/23/19 08:59 02/16/19 10:46 Lorazepam (Ativan 2mg/ml 1ml) 1 mg Q4H PRN IV For Seizures 02/16/19 00:15 02/23/19 00:14 02/16/19 00:07 Norepinephrine Bitartrate 8 mg/ Dextrose 508 ml @ 0 mls/hr Q24H IV 02/16/19 09:30 03/18/19 09:29 02/17/19 11:32 Ondansetron HCl (Zofran) 4 mg Q6H PRN IVP Nausea & Vomiting 02/16/19 01:00 03/16/19 12:59 Pantoprazole (Protonix) 40 mg EVERY 12 HOURS IVP 02/16/19 09:00 03/18/19 08:59 02/17/19 08:48 Phenylephrine HCl 50 mg/Dextrose 250 ml @ 0 mls/hr Q24H IV 02/16/19 22:30 03/18/19 22:29 Phenytoin (Dilantin) 100 mg Q8HR ORAL 02/15/19 22:15 03/16/19 21:59 02/17/19 06:26 Piperacillin Sod/ Tazobactam Sod 3.375 gm/Sodium Chloride 110 ml @ 27.5 mls/hr EVERY 12 HOURS IVPB 02/16/19 21:00 02/21/19 20:59 02/17/19 08:49 Potassium Phosphate 30 mm/ Sodium Chloride 285 ml @ 47.5 mls/hr ONCE IV 02/17/19 10:00 02/17/19 16:00 02/17/19 10:06 Potassium Phosphate 30 mm/ Sodium Chloride 285 ml @ 47.5 mls/hr ONCE IV 02/17/19 16:00 02/17/19 22:00 Sodium Chloride 1,000 ml @ 100 mls/hr Q10H IV 02/17/19 11:46 03/19/19 11:45 02/17/19 12:06 Thiamine HCl 100 mg/Dextrose 56 ml @ 112 mls/hr Q24H IVPB 02/16/19 09:00 03/18/19 08:59 02/17/19 08:48 Vancomycin HCl (Vanco rx to dose) 1 ea DAILY PRN MISC Per rx protocol 02/16/19 09:00 03/17/19 12:59 Vancomycin HCl 500 mg/Dextrose 110 ml @ 110 mls/hr Q12HR IVPB 02/17/19 09:00 02/22/19 08:59 02/17/19 09:06 Vasopressin 100 units/Sodium Chloride 100 ml @ 0 mls/hr Q24H IV 02/16/19 08:15 03/18/19 08:14 02/16/19 08:15 Barry Plummer MD Feb 17, 2019 12:27
--- NOTE | 2019-02-17 14:00 | NUR ---
NURSE NOTES: Patient blood pressure 114/65 on levophed 30mcg/min and Vasopressin 0.04units/min. Will continue to monitor blood pressure and titrate medication per protocol.
--- NOTE | 2019-02-17 14:32 | Pulmonolgy Critical Care Note ---
Critical Care - Asmt/Plan Problems: (1) Seizure disorder (2) Endotracheally intubated (3) Septic shock (4) Sepsis (5) Sinus tachycardia (6) Lactic acid acidosis (7) High anion gap metabolic acidosis (8) STEFANI (acute kidney injury) (9) Abnormal LFTs (10) Coffee ground emesis (11) Gastrointestinal bleed (12) Altered mental status (13) Alcohol withdrawal seizure (14) Ventilator dependent Assessment/Plan: Change IVF to [id number] Replete K and phos Titrate NE to keep MAP > 60, continue Vaso 0.02 Continue Vano/Zosyn/Gent per ID, F/U Cx's Trend Cr, LA, LFT's STAT CT-A CAP (already ordered), can be done with ICU/ACLS RN and crash cart F/U GI recs, PPI, EGD possibly tuesday Monitor HH and platelets, transfuse as needed Banana bag daily Monitor for EtOH w/drawal, PRN ativan Continue AEDs, monitor for Sz's, F/U neuro recs FC CCT 45 Critical Care - Objective Last 24 Hour Vital Signs Date Time Temp Pulse Resp B/P (MAP) Pulse Ox O2 Delivery O2 Flow Rate FiO2 02/17/19 14:00 123/74 02/17/19 14:00 112 27 123/74 (90) 100 02/17/19 13:45 116 31 119/71 (87) 100 02/17/19 13:30 116 28 123/76 (92) 100 02/17/19 13:15 114 28 112/63 (79) 100 02/17/19 13:05 114 28 40 02/17/19 13:00 117 29 91/49 (63) 100 02/17/19 13:00 112/63 02/17/19 12:45 120 33 115/72 (86) 100 02/17/19 12:30 117 31 112/70 (84) 100 02/17/19 12:15 131 25 98/62 (74) 100 02/17/19 12:00 119 02/17/19 12:00 98/62 02/17/19 12:00 98.9 122 31 121/70 (87) 100 02/17/19 12:00 Mechanical Ventilator 02/17/19 11:45 107 26 123/76 (92) 100 02/17/19 11:32 82/55 02/17/19 11:30 108 26 114/73 (87) 100 02/17/19 11:24 125 23 82/55 (64) 98 02/17/19 11:15 110 26 40 02/17/19 11:00 82/55 02/17/19 10:45 117 26 112/70 (84) 100 02/17/19 10:30 127 25 108/68 (81) 99 02/17/19 10:15 129 24 100/72 (81) 100 02/17/19 10:00 126 27 112/71 (85) 100 02/17/19 10:00 100/72 02/17/19 09:45 119 26 113/70 (84) 100 02/17/19 09:30 121 25 108/70 (83) 100 02/17/19 09:15 136 22 102/66 (78) 100 02/17/19 09:07 117 24 40 02/17/19 09:00 124 25 105/64 (78) 100 02/17/19 09:00 102/66 02/17/19 08:45 126 26 105/67 (80) 100 02/17/19 08:30 136 25 101/66 (78) 100 02/17/19 08:15 124 26 109/65 (80) 94 02/17/19 08:00 Mechanical Ventilator 02/17/19 08:00 108/60 02/17/19 08:00 124 02/17/19 08:00 99.1 126 25 108/60 (76) 100 02/17/19 07:45 128 25 82/50 (61) 100 02/17/19 07:30 136 25 116/70 (85) 98 02/17/19 07:18 124 26 40 02/17/19 07:15 127 26 101/66 (78) 100 02/17/19 07:00 131 25 101/66 (78) 99 02/17/19 06:30 131 25 93/63 (73) 99 02/17/19 06:27 105/73 02/17/19 06:15 151 25 105/73 (84) 99 02/17/19 06:00 145 26 115/68 (84) 99 02/17/19 05:45 155 25 119/72 (88) 98 02/17/19 05:40 99.5 7/13/19 05:30 144 28 105/60 (75) 99 02/17/19 05:16 146 29 40 02/17/19 05:15 143 25 121/72 (88) 100 02/17/19 05:00 150 23 101/75 (84) 98 02/17/19 04:45 150 26 116/65 (82) 97 02/17/19 04:30 148 25 96/71 (79) 02/17/19 04:15 153 26 117/69 (85) 95 02/17/19 04:00 141 22 103/72 (82) 02/17/19 04:00 Mechanical Ventilator 02/17/19 04:00 140 02/17/19 03:45 140 26 103/63 (76) 86 02/17/19 03:30 144 28 97/59 (72) 91 02/17/19 03:15 151 23 107/77 (87) 100 02/17/19 03:03 140 26 40 02/17/19 03:00 145 24 103/69 (80) 100 02/17/19 02:45 147 27 112/79 (90) 100 02/17/19 02:30 138 26 102/85 (91) 100 02/17/19 02:00 143 25 90/63 (72) 100 02/17/19 01:35 96/65 02/17/19 01:30 147 26 96/65 (75) 80 02/17/19 01:16 145 32 40 02/17/19 01:00 135 25 105/63 (77) 100 02/17/19 00:30 136 26 101/67 (78) 100 02/17/19 00:00 144 02/17/19 00:00 136 26 96/60 (72) 100 02/17/19 00:00 Mechanical Ventilator 02/16/19 23:30 137 27 96/61 (73) 100 02/16/19 23:06 142 31 40 02/16/19 23:00 136 27 89/64 (72) 100 02/16/19 22:30 140 29 86/55 (65) 100 02/16/19 22:00 89/50 02/16/19 22:00 143 29 89/50 (63) 100 02/16/19 21:45 149 33 84/48 (60) 100 02/16/19 21:30 145 26 108/63 (78) 100 02/16/19 21:15 142 30 81/53 (62) 100 02/16/19 21:03 140 30 40 02/16/19 21:00 84/48 02/16/19 21:00 142 26 84/45 (58) 100 02/16/19 20:56 93/68 02/16/19 20:45 148 30 93/68 (76) 100 02/16/19 20:30 147 32 94/58 (70) 100 02/16/19 20:15 152 27 103/86 (92) 100 02/16/19 20:00 99.4 148 26 97/62 (74) 100 02/16/19 20:00 103/86 02/16/19 20:00 Mechanical Ventilator 02/16/19 20:00 140 02/16/19 19:00 141 26 91/53 (66) 100 02/16/19 18:57 142 28 40 02/16/19 18:00 140 26 78/52 (61) 100 02/16/19 17:02 139 26 40 02/16/19 17:00 138 27 81/59 (66) 100 02/16/19 16:00 99.3 140 26 90/58 (69) 100 02/16/19 16:00 Mechanical Ventilator 02/16/19 16:00 139 02/16/19 15:55 95/67 02/16/19 15:13 148 26 40 02/16/19 15:00 148 25 95/67 (76) 100 02/16/19 14:30 148 22 93/50 (64) 100 Status: somnolent, other - intubated Condition: critical HEENT: atraumatic, normocephalic Lungs: rhonchi - @ bases Heart: HR/BP stable Abdomen: soft, non-tender, active bowel sounds Extremities: no C/C/E, other - L fem CVC R FA 20g IV FC, ETT, OGT Micro: Microbiology Date/Time Source Procedure Growth Status 02/15/19 11:30 Blood Blood Culture - Preliminary Gram Negative Isac Resulted 02/15/19 11:15 Blood Blood Culture - Preliminary Gram Negative Isac Resulted 02/16/19 19:30 Sputum Gram Stain - Final Resulted 02/16/19 19:30 Sputum Sputum Culture Pending Resulted Accucheck: 33 Critical Care - Subjective ROS Limited/Unobtainable: Yes ICU Day: 3 Intubation Day: 2 Interval Events: Intubated yesterday 7.57/29/69/26/96 Vaso 0.02, NE 30 Na 151 HCO3 29 gap 7 cr 1.3 TB inc TTE LVEF 65% nl LV PASP 55 Duplex neg D-dimer + CT-A not done GNR in blood WCT better Hb 8.2 Plt 50 Condition: critical IV Access: central - L fem CVC (02/16) EKG Rhythm: Sinus Tachycardia FI02: 40 Vent Support Breath Rate: 26 Vent Support Mode: AC - ac 26 tv 500 40/5 Vent Tidal Volume: 500 Sputum Amount: Small PEEP: 5.0 PIP: 30 Secretions: minimal Fluids: NS@100 + BANANA BAG Drips: NE 30 VASO 0.02 I&O: Intake and Output 02/16/19 02/17/19 19:00 07:00 Intake Total 2783.48 ml 3123.40 ml Output Total 850 ml 460 ml Balance 1933.48 ml 2663.40 ml IV Total 2783.48 ml 3123.40 ml Output Urine Total 250 ml 460 ml Gastric Drainage Total 600 ml # Bowel Movements 1 Subjective: [place] CXR: Inf L base ET-Tube: 7.5 ET Position: 24 Labs: Laboratory Tests Test 02/16/19 15:00 02/17/19 06:30 02/17/19 08:21 02/17/19 09:25 White Blood Count 40.1 K/UL (4.8-10.8) *H 18.9 K/UL (4.8-10.8) #H Red Blood Count 2.80 M/UL (4.70-6.10) L 2.47 M/UL (4.70-6.10) L Hemoglobin 9.2 G/DL (14.2-18.0) L 8.2 G/DL (14.2-18.0) L Hematocrit 29.6 % (42.0-52.0) L 24.7 % (42.0-52.0) L Mean Corpuscular Volume 106 FL (80-99) H 100 FL (80-99) H Mean Corpuscular Hemoglobin 33.0 PG (27.0-31.0) H 33.5 PG (27.0-31.0) H Mean Corpuscular Hemoglobin Concent 31.2 G/DL (32.0-36.0) L 33.4 G/DL (32.0-36.0) Red Cell Distribution Width 14.8 % (11.6-14.8) 14.4 % (11.6-14.8) Platelet Count 75 K/UL (150-450) L 50 K/UL (150-450) L Mean Platelet Volume 11.4 FL (6.5-10.1) H 9.2 FL (6.5-10.1) Neutrophils (%) (Auto) % (45.0-75.0) % (45.0-75.0) Lymphocytes (%) (Auto) % (20.0-45.0) % (20.0-45.0) Monocytes (%) (Auto) % (1.0-10.0) % (1.0-10.0) Eosinophils (%) (Auto) % (0.0-3.0) % (0.0-3.0) Basophils (%) (Auto) % (0.0-2.0) % (0.0-2.0) Differential Total Cells Counted 100 100 Neutrophils % (Manual) 30 % (45-75) L 53 % (45-75) Lymphocytes % (Manual) 2 % (20-45) L 8 % (20-45) L Monocytes % (Manual) 4 % (1-10) 9 % (1-10) Eosinophils % (Manual) 0 % (0-3) 1 % (0-3) Basophils % (Manual) 0 % (0-2) 0 % (0-2) Metamyelocytes % 3 % (0-0) H 1 % (0-0) H Myelocytes % 5 % (0-0) H Blast Cells % 2 % (0-0) *H Band Neutrophils 54 % (0-8) H 28 % (0-8) H Platelet Estimate Decreased L Decreased L Platelet Morphology See comment Normal Giant Platelets Rare Anisocytosis 1+ Macrocytosis 2+ 1+ Lactic Acid Level 10.10 mmol/L (0.4-2.0) H 5.30 mmol/L (0.4-2.0) H 5.60 mmol/L (0.66-2.22) H Nucleated Red Blood Cells 1 /100 WBC Prothrombin Time 19.9 SEC (9.30-11.50) H Prothromb Time International Ratio 1.9 (0.9-1.1) H Sodium Level 150 MMOL/L (136-145) H 151 MMOL/L (136-145) H Potassium Level 2.9 MMOL/L (3.5-5.1) L 3.0 MMOL/L (3.5-5.1) L Chloride Level 114 MMOL/L (98-107) H 115 MMOL/L (98-107) H Carbon Dioxide Level 27 MMOL/L (21-32) 29 MMOL/L (21-32) Anion Gap 9 mmol/L (5-15) 7 mmol/L (5-15) Blood Urea Nitrogen 24 mg/dL (7-18) H 25 mg/dL (7-18) H Creatinine 1.3 MG/DL (0.55-1.30) 1.3 MG/DL (0.55-1.30) Estimat Glomerular Filtration Rate > 60 mL/min (>60) > 60 mL/min (>60) Glucose Level 148 MG/DL (74-106) H 157 MG/DL (74-106) H Hemoglobin A1c 4.5 % (4.3-6.0) Uric Acid 3.7 MG/DL (2.6-7.2) Calcium Level 7.7 MG/DL (8.5-10.1) L 7.6 MG/DL (8.5-10.1) L Phosphorus Level 0.5 MG/DL (2.5-4.9) *L < 0.5 MG/DL (2.5-4.9) *L Magnesium Level 1.8 MG/DL (1.8-2.4) Iron Level 91 ug/dL (50-175) Total Iron Binding Capacity 92 ug/dL (250-450) L Percent Iron Saturation 99 % (15-50) H Unsaturated Iron Binding 1 ug/dL (112-346) L Ferritin 543 NG/ML (8-388) H Total Bilirubin 3.5 MG/DL (0.2-1.0) H 3.6 MG/DL (0.2-1.0) H Direct Bilirubin 2.7 MG/DL (0.0-0.3) H 2.8 MG/DL (0.0-0.3) H Gamma Glutamyl Transpeptidase 358 U/L (5-85) H Aspartate Amino Transf (AST/SGOT) 125 U/L (15-37) H 131 U/L (15-37) H Alanine Aminotransferase (ALT/SGPT) 33 U/L (12-78) 37 U/L (12-78) Alkaline Phosphatase 45 U/L (46-116) L 49 U/L (46-116) Ammonia 93 umol/L (11-32) H Troponin I 0.113 ng/mL (0.000-0.056) C-Reactive Protein, Quantitative 8.2 mg/dL (0.00-0.90) H Pro-B-Type Natriuretic Peptide 2467 pg/mL (0-125) H Total Protein 4.5 G/DL (6.4-8.2) L 4.2 G/DL (6.4-8.2) L Albumin 1.7 G/DL (3.4-5.0) L 1.7 G/DL (3.4-5.0) L Globulin 2.8 g/dL 2.5 g/dL Albumin/Globulin Ratio 0.6 (1.0-2.7) L 0.7 (1.0-2.7) L Triglycerides Level 81 MG/DL (30-150) Cholesterol Level < 50 MG/DL (< 200) LDL Cholesterol 16 mg/dL (<100) HDL Cholesterol 6 MG/DL (40-60) L Cholesterol/HDL Ratio 8.3 (3.3-4.4) H Vitamin B12 Level 1852 PG/ML (193-986) H Folate 7.3 NG/ML (8.6-58.9) L Thyroid Stimulating Hormone (TSH) 0.216 uiU/mL (0.358-3.740) Cortisol AM Sample Pending Random Vancomycin Level 10.7 ug/mL Phenytoin (Dilantin) Level 7.2 ug/mL (10-20) L Test 02/17/19 11:07 02/17/19 13:07 Arterial Blood pH 7.570 (7.350-7.450) Arterial Blood Partial Pressure CO2 28.7 mmHg (35.0-45.0) L Arterial Blood Partial Pressure O2 68.5 mmHg (75.0-100.0) L Arterial Blood HCO3 26.1 mmol/L (22.0-26.0) H Arterial Blood Oxygen Saturation 95.2 % (95-100) Arterial Blood Base Excess 4.0 (-2-2) H Cesar Test Positive Lactic Acid Level 3.00 mmol/L (0.4-2.0) H Han Harris MD Feb 17, 2019 14:32
--- NOTE | 2019-02-17 14:43 | NUR ---
CASE MANAGEMENT: REVIEW 02/17/2019 SI:RECURRENT SZ. GRAM NEG LUIS UTI. T 98.9 HR 122 RR 31 B/P 98/62 SATS 100% ON MECH VENT FIO2 40 WBC 18.9 NA 151 K 3 CL 115 BUN 25 GLU 157 CA 7.6 PHOS <0.5 TBILI 3.6 DBILI 2.8 AST 131 IS: IVF @ 75 mL/HR ZOSYN IV Q8H VANCO IV Q12H DILANTIN PO Q8H VASOPRESSIN IV Q24H LEVOPHED PER PARAMETERS ICU DCP: PATIENT TO BE DISCHARGED TO HOME ONCE MEDICALLY CLEARED PLAN OF CARE: VENT SUPPORT CT ABD
[2019-02-17] MEDS ORDERED: Isovue-370 150ml vial INJ PRN ×3 (14:45)
--- NOTE | 2019-02-17 14:45 | Cardiac Electrophysiology PN ---
Assessment/Plan Assessment/Plan 1. Sinus tachycardia up to 170s. No evidence of acute myocardial infarction . The patient did not have any chest pain. This is likely due to sepsis and anemia and alcohol withdrawal. Echo Nl EF 60% 2. Septic shock and severe Lactic acidosis on Levophed and vasopressin and broad -spectrum IV antibiotics. 3. Troponin leak. Type 2. Repeat level 0.16 4. Respiratory failure on the vent. 5. ETOH withdrawal 6. Seizures with noncompliance. CONSTANCE RN and Dr Harris Extubation tomorrow Subjective Subjective In ICU for septic shock. On Levophed and Vasopressin and intubated on the Vent. In Sinus tach. Objective Last 24 Hour Vital Signs Date Time Temp Pulse Resp B/P (MAP) Pulse Ox O2 Delivery O2 Flow Rate FiO2 02/17/19 14:00 123/74 02/17/19 14:00 112 27 123/74 (90) 100 02/17/19 13:45 116 31 119/71 (87) 100 02/17/19 13:30 116 28 123/76 (92) 100 02/17/19 13:15 114 28 112/63 (79) 100 02/17/19 13:05 114 28 40 02/17/19 13:00 117 29 91/49 (63) 100 02/17/19 13:00 112/63 02/17/19 12:45 120 33 115/72 (86) 100 02/17/19 12:30 117 31 112/70 (84) 100 02/17/19 12:15 131 25 98/62 (74) 100 02/17/19 12:00 119 02/17/19 12:00 98/62 02/17/19 12:00 98.9 122 31 121/70 (87) 100 02/17/19 12:00 Mechanical Ventilator 02/17/19 11:45 107 26 123/76 (92) 100 02/17/19 11:32 82/55 02/17/19 11:30 108 26 114/73 (87) 100 02/17/19 11:24 125 23 82/55 (64) 98 02/17/19 11:15 110 26 40 02/17/19 11:00 82/55 02/17/19 10:45 117 26 112/70 (84) 100 02/17/19 10:30 127 25 108/68 (81) 99 02/17/19 10:15 129 24 100/72 (81) 100 02/17/19 10:00 126 27 112/71 (85) 100 02/17/19 10:00 100/72 02/17/19 09:45 119 26 113/70 (84) 100 02/17/19 09:30 121 25 108/70 (83) 100 02/17/19 09:15 136 22 102/66 (78) 100 02/17/19 09:07 117 24 40 02/17/19 09:00 124 25 105/64 (78) 100 02/17/19 09:00 102/66 02/17/19 08:45 126 26 105/67 (80) 100 02/17/19 08:30 136 25 101/66 (78) 100 02/17/19 08:15 124 26 109/65 (80) 94 02/17/19 08:00 Mechanical Ventilator 02/17/19 08:00 108/60 02/17/19 08:00 124 02/17/19 08:00 99.1 126 25 108/60 (76) 100 02/17/19 07:45 128 25 82/50 (61) 100 02/17/19 07:30 136 25 116/70 (85) 98 02/17/19 07:18 124 26 40 02/17/19 07:15 127 26 101/66 (78) 100 02/17/19 07:00 131 25 101/66 (78) 99 02/17/19 06:30 131 25 93/63 (73) 99 02/17/19 06:27 105/73 02/17/19 06:15 151 25 105/73 (84) 99 02/17/19 06:00 145 26 115/68 (84) 99 02/17/19 05:45 155 25 119/72 (88) 98 02/17/19 05:40 99.5 02/17/19 05:30 144 28 105/60 (75) 99 02/17/19 05:16 146 29 40 02/17/19 05:15 143 25 121/72 (88) 100 02/17/19 05:00 150 23 101/75 (84) 98 02/17/19 04:45 150 26 116/65 (82) 97 02/17/19 04:30 148 25 96/71 (79) 02/17/19 04:15 153 26 117/69 (85) 95 02/17/19 04:00 141 22 103/72 (82) 02/17/19 04:00 Mechanical Ventilator 02/17/19 04:00 140 02/17/19 03:45 140 26 103/63 (76) 86 02/17/19 03:30 144 28 97/59 (72) 91 02/17/19 03:15 151 23 107/77 (87) 100 02/17/19 03:03 140 26 40 02/17/19 03:00 145 24 103/69 (80) 100 02/17/19 02:45 147 27 112/79 (90) 100 02/17/19 02:30 138 26 102/85 (91) 100 02/17/19 02:00 143 25 90/63 (72) 100 02/17/19 01:35 96/65 02/17/19 01:30 147 26 96/65 (75) 80 02/17/19 01:16 145 32 40 02/17/19 01:00 135 25 105/63 (77) 100 02/17/19 00:30 136 26 101/67 (78) 100 02/17/19 00:00 144 02/17/19 00:00 136 26 96/60 (72) 100 02/17/19 00:00 Mechanical Ventilator 02/16/19 23:30 137 27 96/61 (73) 100 02/16/19 23:06 142 31 40 02/16/19 23:00 136 27 89/64 (72) 100 02/16/19 22:30 140 29 86/55 (65) 100 02/16/19 22:00 89/50 02/16/19 22:00 143 29 89/50 (63) 100 02/16/19 21:45 149 33 84/48 (60) 100 02/16/19 21:30 145 26 108/63 (78) 100 02/16/19 21:15 142 30 81/53 (62) 100 02/16/19 21:03 140 30 40 02/16/19 21:00 84/48 02/16/19 21:00 142 26 84/45 (58) 100 02/16/19 20:56 93/68 02/16/19 20:45 148 30 93/68 (76) 100 02/16/19 20:30 147 32 94/58 (70) 100 02/16/19 20:15 152 27 103/86 (92) 100 02/16/19 20:00 99.4 148 26 97/62 (74) 100 02/16/19 20:00 103/86 02/16/19 20:00 Mechanical Ventilator 02/16/19 20:00 140 02/16/19 19:00 141 26 91/53 (66) 100 02/16/19 18:57 142 28 40 02/16/19 18:00 140 26 78/52 (61) 100 02/16/19 17:02 139 26 40 02/16/19 17:00 138 27 81/59 (66) 100 02/16/19 16:00 99.3 140 26 90/58 (69) 100 02/16/19 16:00 Mechanical Ventilator 02/16/19 16:00 139 02/16/19 15:55 95/67 02/16/19 15:13 148 26 40 02/16/19 15:00 148 25 95/67 (76) 100 Intake and Output 02/16/19 02/17/19 19:00 07:00 Intake Total 2783.48 ml 3123.40 ml Output Total 850 ml 460 ml Balance 1933.48 ml 2663.40 ml IV Total 2783.48 ml 3123.40 ml Output Urine Total 250 ml 460 ml Gastric Drainage Total 600 ml # Bowel Movements 1 Laboratory Tests Test 02/16/19 15:00 02/17/19 06:30 02/17/19 08:21 02/17/19 09:25 White Blood Count 40.1 K/UL (4.8-10.8) *H 18.9 K/UL (4.8-10.8) #H Red Blood Count 2.80 M/UL (4.70-6.10) L 2.47 M/UL (4.70-6.10) L Hemoglobin 9.2 G/DL (14.2-18.0) L 8.2 G/DL (14.2-18.0) L Hematocrit 29.6 % (42.0-52.0) L 24.7 % (42.0-52.0) L Mean Corpuscular Volume 106 FL (80-99) H 100 FL (80-99) H Mean Corpuscular Hemoglobin 33.0 PG (27.0-31.0) H 33.5 PG (27.0-31.0) H Mean Corpuscular Hemoglobin Concent 31.2 G/DL (32.0-36.0) L 33.4 G/DL (32.0-36.0) Red Cell Distribution Width 14.8 % (11.6-14.8) 14.4 % (11.6-14.8) Platelet Count 75 K/UL (150-450) L 50 K/UL (150-450) L Mean Platelet Volume 11.4 FL (6.5-10.1) H 9.2 FL (6.5-10.1) Neutrophils (%) (Auto) % (45.0-75.0) % (45.0-75.0) Lymphocytes (%) (Auto) % (20.0-45.0) % (20.0-45.0) Monocytes (%) (Auto) % (1.0-10.0) % (1.0-10.0) Eosinophils (%) (Auto) % (0.0-3.0) % (0.0-3.0) Basophils (%) (Auto) % (0.0-2.0) % (0.0-2.0) Differential Total Cells Counted 100 100 Neutrophils % (Manual) 30 % (45-75) L 53 % (45-75) Lymphocytes % (Manual) 2 % (20-45) L 8 % (20-45) L Monocytes % (Manual) 4 % (1-10) 9 % (1-10) Eosinophils % (Manual) 0 % (0-3) 1 % (0-3) Basophils % (Manual) 0 % (0-2) 0 % (0-2) Metamyelocytes % 3 % (0-0) H 1 % (0-0) H Myelocytes % 5 % (0-0) H Blast Cells % 2 % (0-0) *H Band Neutrophils 54 % (0-8) H 28 % (0-8) H Platelet Estimate Decreased L Decreased L Platelet Morphology See comment Normal Giant Platelets Rare Anisocytosis 1+ Macrocytosis 2+ 1+ Lactic Acid Level 10.10 mmol/L (0.4-2.0) H 5.30 mmol/L (0.4-2.0) H 5.60 mmol/L (0.66-2.22) H Nucleated Red Blood Cells 1 /100 WBC Prothrombin Time 19.9 SEC (9.30-11.50) H Prothromb Time International Ratio 1.9 (0.9-1.1) H Sodium Level 150 MMOL/L (136-145) H 151 MMOL/L (136-145) H Potassium Level 2.9 MMOL/L (3.5-5.1) L 3.0 MMOL/L (3.5-5.1) L Chloride Level 114 MMOL/L (98-107) H 115 MMOL/L (98-107) H Carbon Dioxide Level 27 MMOL/L (21-32) 29 MMOL/L (21-32) Anion Gap 9 mmol/L (5-15) 7 mmol/L (5-15) Blood Urea Nitrogen 24 mg/dL (7-18) H 25 mg/dL (7-18) H Creatinine 1.3 MG/DL (0.55-1.30) 1.3 MG/DL (0.55-1.30) Estimat Glomerular Filtration Rate > 60 mL/min (>60) > 60 mL/min (>60) Glucose Level 148 MG/DL (74-106) H 157 MG/DL (74-106) H Hemoglobin A1c 4.5 % (4.3-6.0) Uric Acid 3.7 MG/DL (2.6-7.2) Calcium Level 7.7 MG/DL (8.5-10.1) L 7.6 MG/DL (8.5-10.1) L Phosphorus Level 0.5 MG/DL (2.5-4.9) *L < 0.5 MG/DL (2.5-4.9) *L Magnesium Level 1.8 MG/DL (1.8-2.4) Iron Level 91 ug/dL (50-175) Total Iron Binding Capacity 92 ug/dL (250-450) L Percent Iron Saturation 99 % (15-50) H Unsaturated Iron Binding 1 ug/dL (112-346) L Ferritin 543 NG/ML (8-388) H Total Bilirubin 3.5 MG/DL (0.2-1.0) H 3.6 MG/DL (0.2-1.0) H Direct Bilirubin 2.7 MG/DL (0.0-0.3) H 2.8 MG/DL (0.0-0.3) H Gamma Glutamyl Transpeptidase 358 U/L (5-85) H Aspartate Amino Transf (AST/SGOT) 125 U/L (15-37) H 131 U/L (15-37) H Alanine Aminotransferase (ALT/SGPT) 33 U/L (12-78) 37 U/L (12-78) Alkaline Phosphatase 45 U/L (46-116) L 49 U/L (46-116) Ammonia 93 umol/L (11-32) H Troponin I 0.113 ng/mL (0.000-0.056) C-Reactive Protein, Quantitative 8.2 mg/dL (0.00-0.90) H Pro-B-Type Natriuretic Peptide 2467 pg/mL (0-125) H Total Protein 4.5 G/DL (6.4-8.2) L 4.2 G/DL (6.4-8.2) L Albumin 1.7 G/DL (3.4-5.0) L 1.7 G/DL (3.4-5.0) L Globulin 2.8 g/dL 2.5 g/dL Albumin/Globulin Ratio 0.6 (1.0-2.7) L 0.7 (1.0-2.7) L Triglycerides Level 81 MG/DL (30-150) Cholesterol Level < 50 MG/DL (< 200) LDL Cholesterol 16 mg/dL (<100) HDL Cholesterol 6 MG/DL (40-60) L Cholesterol/HDL Ratio 8.3 (3.3-4.4) H Vitamin B12 Level 1852 PG/ML (193-986) H Folate 7.3 NG/ML (8.6-58.9) L Thyroid Stimulating Hormone (TSH) 0.216 uiU/mL (0.358-3.740) Cortisol AM Sample Pending Random Vancomycin Level 10.7 ug/mL Phenytoin (Dilantin) Level 7.2 ug/mL (10-20) L Test 02/17/19 11:07 02/17/19 13:07 Arterial Blood pH 7.570 (7.350-7.450) Arterial Blood Partial Pressure CO2 28.7 mmHg (35.0-45.0) L Arterial Blood Partial Pressure O2 68.5 mmHg (75.0-100.0) L Arterial Blood HCO3 26.1 mmol/L (22.0-26.0) H Arterial Blood Oxygen Saturation 95.2 % (95-100) Arterial Blood Base Excess 4.0 (-2-2) H Cesar Test Positive Lactic Acid Level 3.00 mmol/L (0.4-2.0) H Microbiology Date/Time Source Procedure Growth Status 02/15/19 11:30 Blood Blood Culture - Preliminary Gram Negative Isac Resulted 02/15/19 11:15 Blood Blood Culture - Preliminary Gram Negative Isac Resulted 02/16/19 19:30 Sputum Gram Stain - Final Resulted 02/16/19 19:30 Sputum Sputum Culture Pending Resulted Objective HEAD AND NECK: Shows no JVD.Orally intubated with OG tube LUNGS: Decreased breath sounds. CARDIOVASCULAR: Regular S1 and S2 with no gallop or murmur. ABDOMEN: Soft. EXTREMITIES: No pitting edema. Fidencio Trevino MD Feb 17, 2019 14:45
[2019-02-17] MEDS: D5 1/2NS w/KCl 20mEq 1,000 ML IV SCH (15:34)
--- NOTE | 2019-02-17 16:00 | NUR ---
NURSE NOTES: Patient blood pressure 112/69, HR 127, temp 98.9, and RR 26. Patient calm and sleeping. Patient tolerating ventilator setting of AC 26, tidal volume 500, FiO2 40%. Patient NPO with coffee ground/bloody gastric secretion. 150mL was extracted this afternoon. Patient has oral gastric tube that is patent and verified with auscultation at this time. Patient has an order for chest, abdomen, and pelvis CTA with contrast. Will follow up and take patient down when possible. Patient has delgado for urine retention with pink, blood tinged urine. Patient's left femoral triple lumen catheter that is patent, asymptomatic, and dressing intact. Patient on Levophed drip at 30mcg/min. Vasopressin stopped per Dr Trevino. Will continue to monitor blood pressure and titrate Levophed per protocol. Patient running D5 0.45% normal saline with 20mEq KCl at 100mL/hr, banana bag at 125mL/hr, and 2nd bag of 30mmol potassium phosphate at 47.5mL/hr. Patient bed in low position with bed alarm on and call light in reach at this time. Patient turned and oral care performed at this time.
[2019-02-17] MEDS ORDERED: Gentamicin inj 300 MG in NS 110 ML IVPB SCH (17:00)
--- NOTE | 2019-02-17 18:00 | NUR ---
NURSE NOTES: Blood pressure 97/48 on Levophed at 28mcg/min. Will continue to monitor and titrate levophed drip per protocol. Patient calm and sleeping at this time. bed in low position with bed alarm on. Patient's girlfriend just called to report that the patient fell about 4-5 months ago and had a large bruise on his side that resulted in pain for a while. The patient did not go to the doctor after this fall.
[2019-02-17 18:46] LABS: HEMATOCRIT 22.7 % (42.0-52.0); HEMOGLOBIN 7.8 G/DL (14.2-18.0); MEAN CORPUSCULAR VOLUME 96 FL (80-99); PLATELET COUNT 44 K/UL (150-450); RED BLOOD COUNT 2.36 M/UL (4.70-6.10); RED CELL DISTRIBUTION WIDTH 13.2 % (11.6-14.8); WHITE BLOOD COUNT 15.2 K/UL (4.8-10.8)
--- NOTE | 2019-02-17 19:00 | NUR ---
HAND-OFF: Report given to ESHA Carpio. Patient blood pressure 108/67 at this time on Levophed 28mcg/min. Still awaiting result of CTA of chest, abdomen, and pelvis. Dr medrano and Dr Harris notified regarding Hgb of 7.8, hct 22.7, and Platelet 44 this afternoon. No new orders received. Endorsed to follow up.
--- NOTE | 2019-02-17 19:30 | NUR ---
NURSE NOTES: Recvd.on a vent.orally intubated.See Settings.Lungs Few Rh.Diminished BS at Bases.P.Ox.97-100%.See V/S.Scope ST.Levo.drip in progress TiT.BPS>90.OGT intact clamped.NPO.IV therapy in progress.F/Cath.intact patent Dumping large amt.Pinkish Urinary drainage.Pos.chg.Suctioned.Alert able to follows simple command.anxious/apprehensive occ. forgot limitations.Bila.soft wrist restraints on prev.self-injury.Re-assured,Re-oriented.
[2019-02-17] MEDS: Dyna-Hex 2% Top Sol 2oz TOPIC SCH (19:43)
--- NOTE | 2019-02-17 20:15 | Neurology Progress Note ---
Interim History Interim History ROS Limited/Unobtainable: Yes Interim History more awake, able to follow commands one 1 pressor now Objective Physical Exam Last Vital Signs Date Time Temp Pulse Resp B/P (MAP) Pulse Ox O2 Delivery O2 Flow Rate FiO2 02/17/19 19:30 142 29 111/68 (82) 100 02/17/19 17:08 40 02/17/19 17:00 98.9 02/17/19 16:00 Mechanical Ventilator 02/14/19 15:15 2.0 Laboratory Tests Test 02/17/19 06:30 02/17/19 08:21 02/17/19 09:25 02/17/19 11:07 White Blood Count 18.9 K/UL (4.8-10.8) #H Red Blood Count 2.47 M/UL (4.70-6.10) L Hemoglobin 8.2 G/DL (14.2-18.0) L Hematocrit 24.7 % (42.0-52.0) L Mean Corpuscular Volume 100 FL (80-99) H Mean Corpuscular Hemoglobin 33.5 PG (27.0-31.0) H Mean Corpuscular Hemoglobin Concent 33.4 G/DL (32.0-36.0) Red Cell Distribution Width 14.4 % (11.6-14.8) Platelet Count 50 K/UL (150-450) L Mean Platelet Volume 9.2 FL (6.5-10.1) Neutrophils (%) (Auto) % (45.0-75.0) Lymphocytes (%) (Auto) % (20.0-45.0) Monocytes (%) (Auto) % (1.0-10.0) Eosinophils (%) (Auto) % (0.0-3.0) Basophils (%) (Auto) % (0.0-2.0) Differential Total Cells Counted 100 Neutrophils % (Manual) 53 % (45-75) Lymphocytes % (Manual) 8 % (20-45) L Monocytes % (Manual) 9 % (1-10) Eosinophils % (Manual) 1 % (0-3) Basophils % (Manual) 0 % (0-2) Metamyelocytes % 1 % (0-0) H Band Neutrophils 28 % (0-8) H Nucleated Red Blood Cells 1 /100 WBC Platelet Estimate Decreased L Platelet Morphology Normal Macrocytosis 1+ Prothrombin Time 19.9 SEC (9.30-11.50) H Prothromb Time International Ratio 1.9 (0.9-1.1) H Sodium Level 150 MMOL/L (136-145) H 151 MMOL/L (136-145) H Potassium Level 2.9 MMOL/L (3.5-5.1) L 3.0 MMOL/L (3.5-5.1) L Chloride Level 114 MMOL/L (98-107) H 115 MMOL/L (98-107) H Carbon Dioxide Level 27 MMOL/L (21-32) 29 MMOL/L (21-32) Anion Gap 9 mmol/L (5-15) 7 mmol/L (5-15) Blood Urea Nitrogen 24 mg/dL (7-18) H 25 mg/dL (7-18) H Creatinine 1.3 MG/DL (0.55-1.30) 1.3 MG/DL (0.55-1.30) Estimat Glomerular Filtration Rate > 60 mL/min (>60) > 60 mL/min (>60) Glucose Level 148 MG/DL (74-106) H 157 MG/DL (74-106) H Hemoglobin A1c 4.5 % (4.3-6.0) Lactic Acid Level 5.30 mmol/L (0.4-2.0) H 5.60 mmol/L (0.66-2.22) H Uric Acid 3.7 MG/DL (2.6-7.2) Calcium Level 7.7 MG/DL (8.5-10.1) L 7.6 MG/DL (8.5-10.1) L Phosphorus Level 0.5 MG/DL (2.5-4.9) *L < 0.5 MG/DL (2.5-4.9) *L Magnesium Level 1.8 MG/DL (1.8-2.4) Iron Level 91 ug/dL (50-175) Total Iron Binding Capacity 92 ug/dL (250-450) L Percent Iron Saturation 99 % (15-50) H Unsaturated Iron Binding 1 ug/dL (112-346) L Ferritin 543 NG/ML (8-388) H Total Bilirubin 3.5 MG/DL (0.2-1.0) H 3.6 MG/DL (0.2-1.0) H Direct Bilirubin 2.7 MG/DL (0.0-0.3) H 2.8 MG/DL (0.0-0.3) H Gamma Glutamyl Transpeptidase 358 U/L (5-85) H Aspartate Amino Transf (AST/SGOT) 125 U/L (15-37) H 131 U/L (15-37) H Alanine Aminotransferase (ALT/SGPT) 33 U/L (12-78) 37 U/L (12-78) Alkaline Phosphatase 45 U/L (46-116) L 49 U/L (46-116) Ammonia 93 umol/L (11-32) H Troponin I 0.113 ng/mL (0.000-0.056) C-Reactive Protein, Quantitative 8.2 mg/dL (0.00-0.90) H Pro-B-Type Natriuretic Peptide 2467 pg/mL (0-125) H Total Protein 4.5 G/DL (6.4-8.2) L 4.2 G/DL (6.4-8.2) L Albumin 1.7 G/DL (3.4-5.0) L 1.7 G/DL (3.4-5.0) L Globulin 2.8 g/dL 2.5 g/dL Albumin/Globulin Ratio 0.6 (1.0-2.7) L 0.7 (1.0-2.7) L Triglycerides Level 81 MG/DL (30-150) Cholesterol Level < 50 MG/DL (< 200) LDL Cholesterol 16 mg/dL (<100) HDL Cholesterol 6 MG/DL (40-60) L Cholesterol/HDL Ratio 8.3 (3.3-4.4) H Vitamin B12 Level 1852 PG/ML (193-986) H Folate 7.3 NG/ML (8.6-58.9) L Thyroid Stimulating Hormone (TSH) 0.216 uiU/mL (0.358-3.740) Cortisol AM Sample Pending Random Vancomycin Level 10.7 ug/mL Phenytoin (Dilantin) Level 7.2 ug/mL (10-20) L Arterial Blood pH 7.570 (7.350-7.450) Arterial Blood Partial Pressure CO2 28.7 mmHg (35.0-45.0) L Arterial Blood Partial Pressure O2 68.5 mmHg (75.0-100.0) L Arterial Blood HCO3 26.1 mmol/L (22.0-26.0) H Arterial Blood Oxygen Saturation 95.2 % (95-100) Arterial Blood Base Excess 4.0 (-2-2) H Cesar Test Positive Test 02/17/19 11:50 02/17/19 13:07 02/17/19 18:24 Lactic Acid Level 2.90 mmol/L (0.66-2.22) H 3.00 mmol/L (0.4-2.0) H 2.60 mmol/L (0.4-2.0) H White Blood Count 15.2 K/UL (4.8-10.8) H Red Blood Count 2.36 M/UL (4.70-6.10) L Hemoglobin 7.8 G/DL (14.2-18.0) L Hematocrit 22.7 % (42.0-52.0) L Mean Corpuscular Volume 96 FL (80-99) Mean Corpuscular Hemoglobin 32.9 PG (27.0-31.0) H Mean Corpuscular Hemoglobin Concent 34.2 G/DL (32.0-36.0) Red Cell Distribution Width 13.2 % (11.6-14.8) Platelet Count 44 K/UL (150-450) L Mean Platelet Volume 8.8 FL (6.5-10.1) Neutrophils (%) (Auto) % (45.0-75.0) Lymphocytes (%) (Auto) % (20.0-45.0) Monocytes (%) (Auto) % (1.0-10.0) Eosinophils (%) (Auto) % (0.0-3.0) Basophils (%) (Auto) % (0.0-2.0) Neutrophils % (Manual) Pending Lymphocytes % (Manual) Pending Platelet Estimate Pending Platelet Morphology Pending Head: normocophalic Neck: no rigidity EENT: benign Neurologic Exam Cranial Nerves III, IV, : PERRLA Motor System: no involuntary movement Objective pupils 3 mm reactive no nuchal rigidity minimal withdrawal intubated cc time 35 min Impression/Recommendations Problems: (1) Episode of confusion (2) Tachycardia (3) Fever (4) Diarrhea (5) Altered mental status (6) Alcohol withdrawal seizure (7) Oral thrush (8) Electrolyte and fluid disorder (9) Aspiration pneumonia (10) Alcohol withdrawal seizure (11) Non-compliance (12) Seizure disorder Status: deteriorating Diagnostic Impression seizure due to non compliance septic shock with bacteremia broad sectrum atb sp intubation dilantin 100 mg tid Poor prognosis Myron Estrella MD Feb 17, 2019 20:15
--- NOTE | 2019-02-17 20:30 | NUR ---
RESPIRATORY NOTE: Received pt. on 840 vent. Vent settings are: A/C rate of 26, Vt 500, FI02 40%, PEEP +5. No respiratory distress noted, pt. sP02 @ 100%. AMBU bag @ BS. Vent plugged on red outlet. Will continue to monitor pt.
[2019-02-17] MEDS: Phenylephrine 50 MG in D5W 245 ML IV SCH (22:30)
--- NOTE | 2019-02-17 22:30 | NUR ---
NURSE NOTES: Repositioned,Suctioned.Due meds admin.Cont.to Diuresis large amt.of urine.IV Hydration remain in progress.No Sz.act.noted.Precaution maintained.
--- NOTE | 2019-02-17 23:44 | General Progress Note ---
Assessment/Plan Assessment/Plan: 54 year old male with pMH of seizure disorder and etoh abuse admitted for seizures 2/2 non-compliance #severe septic shock likely 2/2 UTI #Gram negative bacteremia #Acute respiratory failure -Vanc and Zosyn - gentamicin -ID consult appreciated -f/u cultures -cont ICU care -intubated and sedated -vent management per pulmonary -wean as tolerated -Titrate pressors to goal map >65 -abg prn -pending CT chest/abd/pel #Lactic acidosis -2/2 severe shock/ poss abd source/ seizures -CTM -Fluid boluses ordered -Cont mIVF -Repeat in AM - increased, bolused, pending repeat #Coagulopathy -likely 2/2 hepatic injury 2/2 shock #Coffee ground emesis likely in setting of GI bleed -H/H trending down -GI consult appreciated -Plan for EGD once stable -cont NPO -surgery consult appreciated #Seizures 2/2 noncomplaint with AED -s/p phenytoin load in ed -Cont Phenytoin -Neurology consult appreciated -pendign EEG -Ativan PRN for seizures -NPO -Seizure precautions #Hypokalemia #hypophos -repleted -CTM Code: Layer Out of note does not reflect time of encounter Subjective Date patient seen: Feb 17, 2019 Allergies: Coded Allergies: No Known Allergies (Unverified , 02/10/15) Subjective Pt remains intubated and sedated, lactic acid trending down, severe hypophos, repleted, repeat pending, pending CT Objective Last 24 Hour Vital Signs Date Time Temp Pulse Resp B/P (MAP) Pulse Ox O2 Delivery O2 Flow Rate FiO2 02/17/19 23:26 136 31 40 02/17/19 22:59 116/67 02/17/19 22:30 124 115/69 02/17/19 22:15 137 33 107/66 (80) 97 02/17/19 22:00 125 27 112/67 (82) 98 02/17/19 21:45 123 27 119/71 (87) 100 02/17/19 21:31 127 28 91/63 (72) 98 02/17/19 21:30 128 28 113/66 (82) 98 02/17/19 21:30 130 26 40 02/17/19 21:15 126 27 120/54 (76) 98 02/17/19 21:00 136 30 98/65 (76) 97 02/17/19 20:45 143 33 115/70 (85) 97 02/17/19 20:30 133 28 110/70 (83) 98 02/17/19 20:15 139 30 100/64 (76) 98 02/17/19 20:00 98.8 143 25 96/59 (71) 97 02/17/19 20:00 Mechanical Ventilator 02/17/19 20:00 144 02/17/19 19:45 139 29 87/58 (68) 99 02/17/19 19:30 142 29 111/68 (82) 100 02/17/19 19:30 142 29 111/68 (82) 100 02/17/19 19:15 137 26 108/67 (81) 72 02/17/19 19:00 135 28 97/70 (79) 98 02/17/19 19:00 97/48 02/17/19 19:00 133 28 40 02/17/19 18:45 133 28 103/64 (77) 98 02/17/19 18:32 141 24 112/50 (70) 97 02/17/19 18:15 127 27 97/48 (64) 98 02/17/19 18:00 106/67 02/17/19 18:00 130 25 113/71 (85) 99 02/17/19 17:45 132 28 106/67 (80) 98 02/17/19 17:30 132 28 106/63 (77) 99 02/17/19 17:15 136 27 115/82 (93) 98 02/17/19 17:08 134 32 40 02/17/19 17:00 98.9 133 26 102/68 (79) 98 02/17/19 17:00 115/82 02/17/19 16:40 99/55 02/17/19 16:30 129 28 99/55 (70) 98 02/17/19 16:00 130 26 112/69 (83) 98 02/17/19 16:00 71/48 02/17/19 16:00 125 02/17/19 16:00 Mechanical Ventilator 02/17/19 15:30 126 26 99/56 (70) 100 02/17/19 15:00 93/60 02/17/19 15:00 123 27 64/42 (49) 98 7/13/19 14:55 109 26 40 02/17/19 14:30 115 27 119/71 (87) 100 02/17/19 14:00 123/74 02/17/19 14:00 112 27 123/74 (90) 100 02/17/19 13:45 116 31 119/71 (87) 100 02/17/19 13:30 116 28 123/76 (92) 100 02/17/19 13:15 114 28 112/63 (79) 100 02/17/19 13:05 114 28 40 02/17/19 13:00 117 29 91/49 (63) 100 02/17/19 13:00 112/63 02/17/19 12:45 120 33 115/72 (86) 100 02/17/19 12:30 117 31 112/70 (84) 100 02/17/19 12:15 131 25 98/62 (74) 100 02/17/19 12:00 119 02/17/19 12:00 98/62 02/17/19 12:00 98.9 122 31 121/70 (87) 100 02/17/19 12:00 Mechanical Ventilator 02/17/19 11:45 107 26 123/76 (92) 100 02/17/19 11:32 82/55 02/17/19 11:30 108 26 114/73 (87) 100 02/17/19 11:24 125 23 82/55 (64) 98 02/17/19 11:15 110 26 40 02/17/19 11:00 82/55 02/17/19 10:45 117 26 112/70 (84) 100 02/17/19 10:30 127 25 108/68 (81) 99 02/17/19 10:15 129 24 100/72 (81) 100 02/17/19 10:00 126 27 112/71 (85) 100 02/17/19 10:00 100/72 02/17/19 09:45 119 26 113/70 (84) 100 02/17/19 09:30 121 25 108/70 (83) 100 02/17/19 09:15 136 22 102/66 (78) 100 02/17/19 09:07 117 24 40 02/17/19 09:00 124 25 105/64 (78) 100 02/17/19 09:00 102/66 7/13/19 08:45 126 26 105/67 (80) 100 02/17/19 08:30 136 25 101/66 (78) 100 02/17/19 08:15 124 26 109/65 (80) 94 02/17/19 08:00 Mechanical Ventilator 02/17/19 08:00 108/60 02/17/19 08:00 124 02/17/19 08:00 99.1 126 25 108/60 (76) 100 02/17/19 07:45 128 25 82/50 (61) 100 02/17/19 07:30 136 25 116/70 (85) 98 02/17/19 07:18 124 26 40 02/17/19 07:15 127 26 101/66 (78) 100 02/17/19 07:00 131 25 101/66 (78) 99 02/17/19 06:30 131 25 93/63 (73) 99 02/17/19 06:27 105/73 02/17/19 06:15 151 25 105/73 (84) 99 02/17/19 06:00 145 26 115/68 (84) 99 02/17/19 05:45 155 25 119/72 (88) 98 02/17/19 05:40 99.5 02/17/19 05:30 144 28 105/60 (75) 99 02/17/19 05:16 146 29 40 02/17/19 05:15 143 25 121/72 (88) 100 02/17/19 05:00 150 23 101/75 (84) 98 02/17/19 04:45 150 26 116/65 (82) 97 02/17/19 04:30 148 25 96/71 (79) 02/17/19 04:15 153 26 117/69 (85) 95 02/17/19 04:00 141 22 103/72 (82) 02/17/19 04:00 Mechanical Ventilator 02/17/19 04:00 140 02/17/19 03:45 140 26 103/63 (76) 86 02/17/19 03:30 144 28 97/59 (72) 91 02/17/19 03:15 151 23 107/77 (87) 100 02/17/19 03:03 140 26 40 02/17/19 03:00 145 24 103/69 (80) 100 02/17/19 02:45 147 27 112/79 (90) 100 02/17/19 02:30 138 26 102/85 (91) 100 02/17/19 02:00 143 25 90/63 (72) 100 02/17/19 01:35 96/65 02/17/19 01:30 147 26 96/65 (75) 80 02/17/19 01:16 145 32 40 02/17/19 01:00 135 25 105/63 (77) 100 02/17/19 00:30 136 26 101/67 (78) 100 02/17/19 00:00 144 02/17/19 00:00 136 26 96/60 (72) 100 02/17/19 00:00 Mechanical Ventilator Intake and Output 02/16/19 02/17/19 19:00 07:00 Intake Total 2783.48 ml 3123.40 ml Output Total 850 ml 460 ml Balance 1933.48 ml 2663.40 ml IV Total 2783.48 ml 3123.40 ml Output Urine Total 250 ml 460 ml Gastric Drainage Total 600 ml # Bowel Movements 1 Laboratory Tests 02/17/19 06:30: White Blood Count 18.9#H, Red Blood Count 2.47L, Hemoglobin 8.2L, Hematocrit 24.7L, Mean Corpuscular Volume 100H, Mean Corpuscular Hemoglobin 33.5H, Mean Corpuscular Hemoglobin Concent 33.4, Red Cell Distribution Width 14.4, Platelet Count 50L, Mean Platelet Volume 9.2, Neutrophils (%) (Auto) , Lymphocytes (%) ( Auto) , Monocytes (%) (Auto) , Eosinophils (%) (Auto) , Basophils (%) (Auto) , Differential Total Cells Counted 100, Neutrophils % (Manual) 53, Lymphocytes % ( Manual) 8L, Monocytes % (Manual) 9, Eosinophils % (Manual) 1, Basophils % ( Manual) 0, Metamyelocytes % 1H, Band Neutrophils 28H, Nucleated Red Blood Cells 1, Platelet Estimate DecreasedL, Platelet Morphology Normal, Macrocytosis 1+, Prothrombin Time 19.9H, Prothromb Time International Ratio 1.9H, Sodium Level 150H, Potassium Level 2.9L, Chloride Level 114H, Carbon Dioxide Level 27, Anion Gap 9, Blood Urea Nitrogen 24H, Creatinine 1.3, Estimat Glomerular Filtration Rate > 60, Glucose Level 148H, Hemoglobin A1c 4.5, Lactic Acid Level 5.30H, Uric Acid 3.7, Calcium Level 7.7L, Phosphorus Level 0.5*L, Magnesium Level 1.8, Iron Level 91, Total Iron Binding Capacity 92L, Percent Iron Saturation 99H, Unsaturated Iron Binding 1L, Ferritin 543H, Total Bilirubin 3.5H, Direct Bilirubin 2.7H, Gamma Glutamyl Transpeptidase 358H, Aspartate Amino Transf (AST/ SGOT) 125H, Alanine Aminotransferase (ALT/SGPT) 33, Alkaline Phosphatase 45L, Ammonia 93H, Troponin I 0.113H, C-Reactive Protein, Quantitative 8.2H, Pro-B- Type Natriuretic Peptide 2467H, Total Protein 4.5L, Albumin 1.7L, Globulin 2.8, Albumin/Globulin Ratio 0.6L, Triglycerides Level 81, Cholesterol Level < 50, LDL Cholesterol 16, HDL Cholesterol 6L, Cholesterol/HDL Ratio 8.3H, Vitamin B12 Level 1852H, Folate 7.3L, Thyroid Stimulating Hormone (TSH) 0.216L, Cortisol AM Sample [Pending], Random Vancomycin Level 10.7, Phenytoin (Dilantin) Level 7.2L 02/17/19 08:21: Sodium Level 151H, Potassium Level 3.0L, Chloride Level 115H, Carbon Dioxide Level 29, Anion Gap 7, Blood Urea Nitrogen 25H, Creatinine 1.3, Estimat Glomerular Filtration Rate > 60, Glucose Level 157H, Lactic Acid Level 5.60H, Calcium Level 7.6L, Total Bilirubin 3.6H, Direct Bilirubin 2.8H, Aspartate Amino Transf (AST/SGOT) 131H, Alanine Aminotransferase (ALT/SGPT) 37, Alkaline Phosphatase 49, Total Protein 4.2L, Albumin 1.7L, Globulin 2.5, Albumin/ Globulin Ratio 0.7L 02/17/19 09:25: Phosphorus Level < 0.5*L 02/17/19 11:07: Arterial Blood pH 7.570*H, Arterial Blood Partial Pressure CO2 28.7L, Arterial Blood Partial Pressure O2 68.5L, Arterial Blood HCO3 26.1H, Arterial Blood Oxygen Saturation 95.2, Arterial Blood Base Excess 4.0H, Cesar Test Positive 02/17/19 11:50: Lactic Acid Level 2.90H 02/17/19 13:07: Lactic Acid Level 3.00H 02/17/19 18:24: Lactic Acid Level 2.60H, White Blood Count 15.2H, Red Blood Count 2.36L, Hemoglobin 7.8L, Hematocrit 22.7L, Mean Corpuscular Volume 96, Mean Corpuscular Hemoglobin 32.9H, Mean Corpuscular Hemoglobin Concent 34.2, Red Cell Distribution Width 13.2, Platelet Count 44L, Mean Platelet Volume 8.8, Neutrophils (%) (Auto) , Lymphocytes (%) (Auto) , Monocytes (%) (Auto) , Eosinophils (%) (Auto) , Basophils (%) (Auto) , Differential Total Cells Counted 100, Neutrophils % (Manual) 56, Lymphocytes % (Manual) 13L, Monocytes % (Manual) 9, Eosinophils % (Manual) 2, Basophils % (Manual) 1, Band Neutrophils 19H, Platelet Estimate DecreasedL, Platelet Morphology Normal, Hypochromasia 1+ , Anisocytosis 1+ Height (Feet): 5 Height (Inches): 5.00 Weight (Pounds): 130 Objective General appearance: intubated and sedated Head: Normocephalic, without obvious abnormality, atraumatic Eyes: conjunctivae/corneas clear. PERRL, EOM's intact. Fundi benign Throat: Lips, mucosa, and tongue normal. Teeth and gums normal Neck: supple, symmetrical, trachea midline, no adenopathy, thyroid: not enlarged, symmetric, no tenderness/mass/nodules, no carotid bruit and no JVD Lungs: intubated, b/l air entry, no wheezing noted Heart: regular rate and rhythm, S1, S2 normal, no murmur, click, rub or gallop Abdomen: soft, non-tender. Bowel sounds normal. No masses, no organomegaly Extremities: extremities normal, atraumatic, no cyanosis or edema Pulses: 2+ and symmetric Skin: Skin color, texture, turgor normal. No rashes or lesions Neurologic: Grossly normal Lyn Cuevas MD Feb 17, 2019 23:44
[2019-02-18] VITALS (76 sets, daily range): BP systolic 89–119; BP diastolic 28–82
--- NOTE | 2019-02-18 00:29 | NUR ---
NURSE NOTES: Repositioned,suctioned.Neuro status same.See V/S.Levo.drip <24mcg/min.Scope rhythm same.Cont.Plan of care.
[2019-02-18] MEDS: D5 1/2NS w/KCl 20mEq 1,000 ML IV SCH ×3 (01:00→19:18)
--- NOTE | 2019-02-18 03:17 | NUR ---
NURSE NOTES: Pos.chg.Suctioned.Status same.No distress.
--- NOTE | 2019-02-18 05:00 | NUR ---
NURSE NOTES: Inct.of loose tarry stool.romana Diaz chg.blood drawn for cbc/cmp/tropo.etc spec.to lab.See V/S.Levo.Drip Tit.down to 18mcg/min.Scope Rhythm same.
[2019-02-18] MEDS: Phenytoin 100mg cap ORAL SCH (05:59)
[2019-02-18 06:58] LABS: HEMATOCRIT 21.7 % (42.0-52.0); HEMOGLOBIN 7.3 G/DL (14.2-18.0); MEAN CORPUSCULAR VOLUME 98 FL (80-99); PLATELET COUNT 40 K/UL (150-450); RED BLOOD COUNT 2.23 M/UL (4.70-6.10); RED CELL DISTRIBUTION WIDTH 13.9 % (11.6-14.8); WHITE BLOOD COUNT 13.2 K/UL (4.8-10.8)
--- NOTE | 2019-02-18 07:00 | NUR ---
RESPIRATORY NOTE:Received pt. on 840 vent. No respiratory distress noted, pt. sP02 @ 97%. AMBU bag @ BS. Vent plugged on red outlet. Alarms on and audible. Will continue to monitor pt
--- NOTE | 2019-02-18 07:07 | NUR ---
HAND-OFF: Report given to ESHA SEN.
--- NOTE | 2019-02-18 07:10 | NUR ---
NURSE NOTES: Received patient from ESHA Carpio. Patient blood pressure 98/61, HR 125, temp 100.0, and RR 26. Patient sightly restless at this time but drowsy. Patient on bilateral soft wrist restraint due to patient witnessed attempting to remove ETT/OGT. Patient on seizure precaution. Patient intubated with ETT 8cm with 24cm at the lip line. Setting AC 26, tidal volume 500, Patient NPO with coffee ground/dark bloody gastric secretion. Patient has oral gastric tube that is patent and verified with auscultation at this time. Patient has tarry black stool. Patient skin intact. Patient has delgado for urine retention with pink, blood tinged urine. Patient has right forearm 20 gauge PIV that is patent and asymptomatic at this time. Patient has left femoral triple lumen catheter that is patent, asymptomatic, and dressing intact. Patient on levophed drip at 18 mcg/min. Will monitor blood pressure and titrate drips per protocol. Dr Bloom placed an order for EGD tomorrow if patient off of levophed. Patient running D51/2NS with 20mEq at 100mL/hr and banana bag at 125mL/hr. Patient bed in low position with bed alarm on and call light in reach at this time. Patient labs pending this morning. Will follow up.
--- NOTE | 2019-02-18 07:16 | NUR ---
NURSE NOTES: Called radiology to ask about the CT chest result. The paper that is in the chart does not have a result for the CT chest. The area where the findings are normally typed was blank. I reported this to radiology and they stated that the radiologist, Dr Mccoy, will be read the CT and send us the result. Will follow up.
--- NOTE | 2019-02-18 07:23 | General Progress Note ---
Assessment/Plan Assessment/Plan: (1) Coffee ground emesis (2) Episode of confusion (3) Alcohol withdrawal seizure (4) Electrolyte and fluid disorder (5) Non-compliance (6) Sepsis/DIC (7) coagulopathic Plan black stools per nurses drop in H&H positive stool ob ppi IV Q 12 monitor H&H maintain NPO Follow-up ID recommendations given leukocytosis monitor H&H, prn transfusions IV hydration plus electrolyte correction fu labs plan EGD in AM if stable transfuse one unit of PRBC and FFP for today Vit k Subjective ROS Limited/Unobtainable: No Allergies: Coded Allergies: No Known Allergies (Unverified , 02/10/15) Objective Last 24 Hour Vital Signs Date Time Temp Pulse Resp B/P (MAP) Pulse Ox O2 Delivery O2 Flow Rate FiO2 02/18/19 06:44 129 30 40 02/18/19 06:00 121 28 100/61 (74) 100 02/18/19 05:45 128 29 105/61 (76) 98 02/18/19 05:30 128 29 92/28 (49) 99 02/18/19 05:25 133 28 40 02/18/19 05:15 127 31 99/60 (73) 99 02/18/19 05:11 107/63 02/18/19 05:00 129 34 107/63 (78) 100 02/18/19 04:45 137 29 118/73 (88) 02/18/19 04:30 125 28 105/68 (80) 99 02/18/19 04:15 128 31 106/68 (81) 98 02/18/19 04:00 128 29 107/66 (80) 97 02/18/19 04:00 Mechanical Ventilator 02/18/19 04:00 40 02/18/19 04:00 128 02/18/19 03:45 123 28 113/70 (84) 100 02/18/19 03:30 121 25 108/64 (79) 98 02/18/19 03:15 122 27 113/68 (83) 98 02/18/19 03:11 122 26 40 02/18/19 03:00 124 29 102/71 (81) 99 02/18/19 02:45 128 29 110/65 (80) 99 02/18/19 02:30 127 29 110/72 (85) 99 02/18/19 02:15 118 26 104/62 (76) 100 02/18/19 02:00 122 27 99/60 (73) 100 02/18/19 01:45 131 29 96/65 (75) 98 02/18/19 01:31 135 24 40 02/18/19 01:30 128 30 118/72 (87) 99 02/18/19 01:15 130 29 103/62 (76) 98 02/18/19 01:00 133 27 101/68 (79) 96 02/18/19 00:45 121 26 93/62 (72) 99 02/18/19 00:30 122 26 112/61 (78) 99 02/18/19 00:15 125 27 109/67 (81) 99 02/18/19 00:00 40 02/18/19 00:00 Mechanical Ventilator 02/18/19 00:00 98.6 127 30 104/64 (77) 98 02/18/19 00:00 127 02/17/19 23:45 125 27 99/63 (75) 99 02/17/19 23:30 131 27 92/61 (71) 99 02/17/19 23:26 136 31 40 02/17/19 23:15 138 31 102/61 (75) 97 02/17/19 23:00 138 29 114/63 (80) 96 02/17/19 22:59 116/67 02/17/19 22:45 125 27 116/67 (83) 98 02/17/19 22:30 126 28 115/69 (84) 99 02/17/19 22:30 124 115/69 02/17/19 22:15 137 33 107/66 (80) 97 02/17/19 22:00 125 27 112/67 (82) 98 02/17/19 21:45 123 27 119/71 (87) 100 02/17/19 21:31 127 28 91/63 (72) 98 02/17/19 21:30 128 28 113/66 (82) 98 02/17/19 21:30 130 26 40 02/17/19 21:15 126 27 120/54 (76) 98 02/17/19 21:00 136 30 98/65 (76) 97 02/17/19 20:45 143 33 115/70 (85) 97 02/17/19 20:30 133 28 110/70 (83) 98 02/17/19 20:15 139 30 100/64 (76) 98 02/17/19 20:00 98.8 143 25 96/59 (71) 97 02/17/19 20:00 40 02/17/19 20:00 Mechanical Ventilator 02/17/19 20:00 144 02/17/19 19:45 139 29 87/58 (68) 99 02/17/19 19:30 142 29 111/68 (82) 100 02/17/19 19:30 142 29 111/68 (82) 100 02/17/19 19:15 137 26 108/67 (81) 72 02/17/19 19:00 135 28 97/70 (79) 98 02/17/19 19:00 97/48 02/17/19 19:00 133 28 40 02/17/19 18:45 133 28 103/64 (77) 98 02/17/19 18:32 141 24 112/50 (70) 97 02/17/19 18:15 127 27 97/48 (64) 98 02/17/19 18:00 106/67 02/17/19 18:00 130 25 113/71 (85) 99 02/17/19 17:45 132 28 106/67 (80) 98 02/17/19 17:30 132 28 106/63 (77) 99 02/17/19 17:15 136 27 115/82 (93) 98 02/17/19 17:08 134 32 40 02/17/19 17:00 98.9 133 26 102/68 (79) 98 02/17/19 17:00 115/82 02/17/19 16:40 99/55 02/17/19 16:30 129 28 99/55 (70) 98 02/17/19 16:00 130 26 112/69 (83) 98 02/17/19 16:00 71/48 02/17/19 16:00 125 02/17/19 16:00 40 02/17/19 16:00 Mechanical Ventilator 02/17/19 15:30 126 26 99/56 (70) 100 02/17/19 15:00 93/60 02/17/19 15:00 123 27 64/42 (49) 98 02/17/19 14:55 109 26 40 02/17/19 14:30 115 27 119/71 (87) 100 02/17/19 14:00 123/74 02/17/19 14:00 112 27 123/74 (90) 100 02/17/19 13:45 116 31 119/71 (87) 100 02/17/19 13:30 116 28 123/76 (92) 100 02/17/19 13:15 114 28 112/63 (79) 100 02/17/19 13:05 114 28 40 02/17/19 13:00 117 29 91/49 (63) 100 02/17/19 13:00 112/63 02/17/19 12:45 120 33 115/72 (86) 100 02/17/19 12:30 117 31 112/70 (84) 100 02/17/19 12:15 131 25 98/62 (74) 100 02/17/19 12:00 119 02/17/19 12:00 98/62 02/17/19 12:00 98.9 122 31 121/70 (87) 100 02/17/19 12:00 40 02/17/19 12:00 Mechanical Ventilator 02/17/19 11:45 107 26 123/76 (92) 100 02/17/19 11:32 82/55 02/17/19 11:30 108 26 114/73 (87) 100 02/17/19 11:24 125 23 82/55 (64) 98 02/17/19 11:15 110 26 40 02/17/19 11:00 82/55 02/17/19 10:45 117 26 112/70 (84) 100 02/17/19 10:30 127 25 108/68 (81) 99 02/17/19 10:15 129 24 100/72 (81) 100 02/17/19 10:00 126 27 112/71 (85) 100 02/17/19 10:00 100/72 02/17/19 09:45 119 26 113/70 (84) 100 02/17/19 09:30 121 25 108/70 (83) 100 02/17/19 09:15 136 22 102/66 (78) 100 02/17/19 09:07 117 24 40 02/17/19 09:00 124 25 105/64 (78) 100 02/17/19 09:00 102/66 02/17/19 08:45 126 26 105/67 (80) 100 02/17/19 08:30 136 25 101/66 (78) 100 02/17/19 08:15 124 26 109/65 (80) 94 02/17/19 08:00 Mechanical Ventilator 02/17/19 08:00 108/60 02/17/19 08:00 40 02/17/19 08:00 124 02/17/19 08:00 99.1 126 25 108/60 (76) 100 02/17/19 07:45 128 25 82/50 (61) 100 02/17/19 07:30 136 25 116/70 (85) 98 Intake and Output 02/17/19 02/18/19 18:59 06:59 Intake Total 3940.375 ml 2420.00 ml Output Total 1875 ml 1450 ml Balance 2065.375 ml 970.00 ml IV Total 3940.375 ml 2420.00 ml Output Urine Total 1875 ml 1450 ml # Bowel Movements 2 Laboratory Tests 02/17/19 08:21: Sodium Level 151H, Potassium Level 3.0L, Chloride Level 115H, Carbon Dioxide Level 29, Anion Gap 7, Blood Urea Nitrogen 25H, Creatinine 1.3, Estimat Glomerular Filtration Rate > 60, Glucose Level 157H, Lactic Acid Level 5.60H, Calcium Level 7.6L, Total Bilirubin 3.6H, Direct Bilirubin 2.8H, Aspartate Amino Transf (AST/SGOT) 131H, Alanine Aminotransferase (ALT/SGPT) 37, Alkaline Phosphatase 49, Total Protein 4.2L, Albumin 1.7L, Globulin 2.5, Albumin/ Globulin Ratio 0.7L 02/17/19 09:25: Phosphorus Level < 0.5*L 02/17/19 11:07: Arterial Blood pH 7.570*H, Arterial Blood Partial Pressure CO2 28.7L, Arterial Blood Partial Pressure O2 68.5L, Arterial Blood HCO3 26.1H, Arterial Blood Oxygen Saturation 95.2, Arterial Blood Base Excess 4.0H, Cesar Test Positive 02/17/19 11:50: Lactic Acid Level 2.90H 02/17/19 13:07: Lactic Acid Level 3.00H 02/17/19 18:24: Lactic Acid Level 2.60H, White Blood Count 15.2H, Red Blood Count 2.36L, Hemoglobin 7.8L, Hematocrit 22.7L, Mean Corpuscular Volume 96, Mean Corpuscular Hemoglobin 32.9H, Mean Corpuscular Hemoglobin Concent 34.2, Red Cell Distribution Width 13.2, Platelet Count 44L, Mean Platelet Volume 8.8, Neutrophils (%) (Auto) , Lymphocytes (%) (Auto) , Monocytes (%) (Auto) , Eosinophils (%) (Auto) , Basophils (%) (Auto) , Differential Total Cells Counted 100, Neutrophils % (Manual) 56, Lymphocytes % (Manual) 13L, Monocytes % (Manual) 9, Eosinophils % (Manual) 2, Basophils % (Manual) 1, Band Neutrophils 19H, Platelet Estimate DecreasedL, Platelet Morphology Normal, Hypochromasia 1+ , Anisocytosis 1+ 02/18/19 05:00: Lactic Acid Level [Pending], White Blood Count 13.2H, Red Blood Count 2.23L, Hemoglobin 7.3L, Hematocrit 21.7L, Mean Corpuscular Volume 98, Mean Corpuscular Hemoglobin 32.9H, Mean Corpuscular Hemoglobin Concent 33.7, Red Cell Distribution Width 13.9, Platelet Count 40L, Mean Platelet Volume 9.5, Neutrophils (%) (Auto) , Lymphocytes (%) (Auto) , Monocytes (%) (Auto) , Eosinophils (%) (Auto) , Basophils (%) (Auto) , Neutrophils % (Manual) [Pending] , Lymphocytes % (Manual) [Pending], Platelet Estimate [Pending], Platelet Morphology [Pending], Sodium Level [Pending], Potassium Level [Pending], Chloride Level [Pending], Carbon Dioxide Level [Pending], Blood Urea Nitrogen [ Pending], Creatinine [Pending], Estimat Glomerular Filtration Rate [Pending], Glucose Level [Pending], Uric Acid [Pending], Calcium Level [Pending], Phosphorus Level [Pending], Magnesium Level [Pending], Total Bilirubin [Pending] , Aspartate Amino Transf (AST/SGOT) [Pending], Alanine Aminotransferase (ALT/ SGPT) [Pending], Alkaline Phosphatase [Pending], Troponin I [Pending], C- Reactive Protein, Quantitative [Pending], Pro-B-Type Natriuretic Peptide [ Pending], Total Protein [Pending], Albumin [Pending], Globulin [Pending], Random Gentamicin Level [Pending] Height (Feet): 5 Height (Inches): 5.00 Weight (Pounds): 130 General Appearance: lethargic EENT: normal ENT inspection Neck: supple Cardiovascular: tachycardia Respiratory/Chest: decreased breath sounds Abdomen: normal bowel sounds, non tender, soft Extremities: non-tender Jones Bloom MD Feb 18, 2019 07:23
[2019-02-18 07:42] LABS: PHOSPHORUS 1.1 MG/DL (2.5-4.9)
[2019-02-18 07:45] LABS: ALANINE AMINOTRANSFERASE 40 U/L (12-78); ALBUMIN 1.6 G/DL (3.4-5.0); ALBUMIN/GLOBULIN RATIO 0.6 (1.0-2.7); ALKALINE PHOSPHATASE 95 U/L (46-116); ANION GAP 6 mmol/L (5-15); ASPARTATE AMINO TRANSFERASE 153 U/L (15-37); BILIRUBIN,TOTAL 3.7 MG/DL (0.2-1.0); BLOOD UREA NITROGEN 16 mg/dL (7-18); CALCIUM 7.3 MG/DL (8.5-10.1); CARBON DIOXIDE 30 MMOL/L (21-32); CHLORIDE 113 MMOL/L (98-107); CREATININE 0.9 MG/DL (0.55-1.30); POTASSIUM 2.9 MMOL/L (3.5-5.1); SODIUM 149 MMOL/L (136-145)
[2019-02-18 07:49] LABS: BILIRUBIN,DIRECT 2.8 MG/DL (0.0-0.3)
--- NOTE | 2019-02-18 08:03 | NUR ---
NURSE NOTES: CT chest showed no sign of PE.
[2019-02-18] MEDS: Vasopressin 100 UNITS in NS 95 ML IV SCH (08:15)
[2019-02-18] MEDS: Docusate 100mg cap ORAL SCH ×3 (08:34→17:39)
[2019-02-18] MEDS: Vancomycin 500mg/D5W 110ml IVPB SCH ×2 (08:53)
[2019-02-18] MEDS: Folic Acid 1 MG, Magnesium Sulfate 2,000 MG, Multivitamin - 12 Injection 10 ML in Sodiu... IV SCH (08:53)
[2019-02-18] MEDS: Pantoprazole Inj IVP SCH ×2 (08:54→20:35)
[2019-02-18] MEDS: Thiamine 100mg in D5W 55ml IVPB SCH (08:54)
--- NOTE | 2019-02-18 10:00 | NUR ---
NURSE NOTES: Blood pressure 108/62, HR 124, SpO2 100%, and RR 26. Levophed drip running at 16mcg/min. Patient showing no sign of acute distress. Will continue to monitor blood pressure and titrate Levophed per protocol. Still unable to contact patient's sister for blood transfusion consent.
--- NOTE | 2019-02-18 10:28 | NUR ---
RD ASSESSMENT & RECOMMENDATIONS SEE CARE ACTIVITY FOR COMPLETE ASSESSMENT DAILY ESTIMATED NEEDS: Needs based on Critical care, sepsis 72.7kg 22-30 kcals/kg 5498-7623 total kcals 1.2-2 g protein/kg 87-145 g total protein 25-30 mL/kg 7654-7547 total fluid mLs NUTRITION DIAGNOSIS: 1) Swallowing difficulty r/t respiratory status as evidenced by pt now orally intubated, on pressor support, adm w/ seizures and GIB, NPO at this time. 2) Altered nutrition related lab values r/t clinical condition as evidenced by pt w/ low lytes (K 2.9, phos 1.1, Mg 1.6) critically elev WBC on adm, now trending down, elev ammonia, elev T bili. ENTERAL NUTRITION RECOMMENDATIONS: Vital AF 1.2 for critical care @75ml/hr x18 hrs (On dilantin q8hrs) to provide 1350ml, 1620 kcal, 101g pro, 1095ml free H2o - As medically able rec Vital AF for critical care - Start @25ml for 4 hrs, increase by 10ml/hr q4-6 hrs to goal - HOLD TF 1 hr before and after dilantin as per pharmacy recs - FEED W/ HEMODYNAMIC STABILITY-> OTHERWISE TROPHIC FEEDS FOR 5-10ML/HR - Flush per , HOB over 30 degrees ADDITIONAL RECOMMENDATIONS: 1) Tf recs as above when hemodynamically stable 2) Obtain a CALIBRATED BED SCALE Pt does not appear c/w WT of 130# per EMR 3) Replete lytes, check daily 4) Con't banana bag + thiamine
[2019-02-18] MEDS ORDERED: Potassium Phosphate 30 MM in NS 275 ML IV SCH (11:00)
[2019-02-18] MEDS ORDERED: Phytonadione 1 MG in D5W 55 ML IVPB SCH (11:00)
--- NOTE | 2019-02-18 11:46 | Surgery Progress Note ---
Surgery Progress Note Subjective Procedure Performed left femoral central venous catheter insertion Additional Comments leukocytosis improving weaning off pressors tachycardia improving uop noted slowly improving on vent support Objective Last 24 Hour Vital Signs Date Time Temp Pulse Resp B/P (MAP) Pulse Ox O2 Delivery O2 Flow Rate FiO2 02/18/19 10:43 117 32 40 02/18/19 09:01 118 32 40 02/18/19 06:44 129 30 40 02/18/19 06:00 121 28 100/61 (74) 100 02/18/19 05:45 128 29 105/61 (76) 98 02/18/19 05:30 128 29 92/28 (49) 99 02/18/19 05:25 133 28 40 02/18/19 05:15 127 31 99/60 (73) 99 02/18/19 05:11 107/63 02/18/19 05:00 129 34 107/63 (78) 100 02/18/19 04:45 137 29 118/73 (88) 02/18/19 04:30 125 28 105/68 (80) 99 02/18/19 04:15 128 31 106/68 (81) 98 02/18/19 04:00 128 29 107/66 (80) 97 02/18/19 04:00 Mechanical Ventilator 02/18/19 04:00 40 02/18/19 04:00 128 02/18/19 03:45 123 28 113/70 (84) 100 02/18/19 03:30 121 25 108/64 (79) 98 02/18/19 03:15 122 27 113/68 (83) 98 02/18/19 03:11 122 26 40 02/18/19 03:00 124 29 102/71 (81) 99 02/18/19 02:45 128 29 110/65 (80) 99 02/18/19 02:30 127 29 110/72 (85) 99 02/18/19 02:15 118 26 104/62 (76) 100 02/18/19 02:00 122 27 99/60 (73) 100 02/18/19 01:45 131 29 96/65 (75) 98 02/18/19 01:31 135 24 40 02/18/19 01:30 128 30 118/72 (87) 99 02/18/19 01:15 130 29 103/62 (76) 98 02/18/19 01:00 133 27 101/68 (79) 96 02/18/19 00:45 121 26 93/62 (72) 99 02/18/19 00:30 122 26 112/61 (78) 99 02/18/19 00:15 125 27 109/67 (81) 99 02/18/19 00:00 40 02/18/19 00:00 Mechanical Ventilator 02/18/19 00:00 98.6 127 30 104/64 (77) 98 02/18/19 00:00 127 02/17/19 23:45 125 27 99/63 (75) 99 02/17/19 23:30 131 27 92/61 (71) 99 02/17/19 23:26 136 31 40 02/17/19 23:15 138 31 102/61 (75) 97 02/17/19 23:00 138 29 114/63 (80) 96 02/17/19 22:59 116/67 02/17/19 22:45 125 27 116/67 (83) 98 02/17/19 22:30 126 28 115/69 (84) 99 02/17/19 22:30 124 115/69 02/17/19 22:15 137 33 107/66 (80) 97 02/17/19 22:00 125 27 112/67 (82) 98 02/17/19 21:45 123 27 119/71 (87) 100 02/17/19 21:31 127 28 91/63 (72) 98 02/17/19 21:30 128 28 113/66 (82) 98 02/17/19 21:30 130 26 40 02/17/19 21:15 126 27 120/54 (76) 98 02/17/19 21:00 136 30 98/65 (76) 97 02/17/19 20:45 143 33 115/70 (85) 97 02/17/19 20:30 133 28 110/70 (83) 98 02/17/19 20:15 139 30 100/64 (76) 98 02/17/19 20:00 98.8 143 25 96/59 (71) 97 02/17/19 20:00 40 02/17/19 20:00 Mechanical Ventilator 02/17/19 20:00 144 02/17/19 19:45 139 29 87/58 (68) 99 02/17/19 19:30 142 29 111/68 (82) 100 02/17/19 19:30 142 29 111/68 (82) 100 02/17/19 19:15 137 26 108/67 (81) 72 02/17/19 19:00 135 28 97/70 (79) 98 02/17/19 19:00 97/48 02/17/19 19:00 133 28 40 02/17/19 18:45 133 28 103/64 (77) 98 02/17/19 18:32 141 24 112/50 (70) 97 02/17/19 18:15 127 27 97/48 (64) 98 02/17/19 18:00 106/67 02/17/19 18:00 130 25 113/71 (85) 99 02/17/19 17:45 132 28 106/67 (80) 98 02/17/19 17:30 132 28 106/63 (77) 99 02/17/19 17:15 136 27 115/82 (93) 98 02/17/19 17:08 134 32 40 02/17/19 17:00 98.9 133 26 102/68 (79) 98 02/17/19 17:00 115/82 02/17/19 16:40 99/55 02/17/19 16:30 129 28 99/55 (70) 98 02/17/19 16:00 130 26 112/69 (83) 98 02/17/19 16:00 71/48 02/17/19 16:00 125 02/17/19 16:00 40 02/17/19 16:00 Mechanical Ventilator 02/17/19 15:30 126 26 99/56 (70) 100 02/17/19 15:00 93/60 02/17/19 15:00 123 27 64/42 (49) 98 02/17/19 14:55 109 26 40 02/17/19 14:30 115 27 119/71 (87) 100 02/17/19 14:00 123/74 02/17/19 14:00 112 27 123/74 (90) 100 02/17/19 13:45 116 31 119/71 (87) 100 02/17/19 13:30 116 28 123/76 (92) 100 02/17/19 13:15 114 28 112/63 (79) 100 02/17/19 13:05 114 28 40 02/17/19 13:00 117 29 91/49 (63) 100 02/17/19 13:00 112/63 02/17/19 12:45 120 33 115/72 (86) 100 02/17/19 12:30 117 31 112/70 (84) 100 02/17/19 12:15 131 25 98/62 (74) 100 02/17/19 12:00 119 02/17/19 12:00 98/62 02/17/19 12:00 98.9 122 31 121/70 (87) 100 02/17/19 12:00 40 02/17/19 12:00 Mechanical Ventilator I&O Intake and Output 02/17/19 02/18/19 18:59 06:59 Intake Total 3940.375 ml 2420.00 ml Output Total 1875 ml 1450 ml Balance 2065.375 ml 970.00 ml IV Total 3940.375 ml 2420.00 ml Output Urine Total 1875 ml 1450 ml # Bowel Movements 2 Cardiovascular: RSR Respiratory: clear Abdomen: soft, present bowel sounds, non-distended Extremities: no edema, no tenderness, no cyanosis Laboratory Tests Test 02/17/19 11:50 02/17/19 13:07 02/17/19 18:24 02/18/19 05:00 Lactic Acid Level 2.90 mmol/L (0.66-2.22) H 3.00 mmol/L (0.4-2.0) H 2.60 mmol/L (0.4-2.0) H 2.80 mmol/L (0.4-2.0) H White Blood Count 15.2 K/UL (4.8-10.8) H 13.2 K/UL (4.8-10.8) H Red Blood Count 2.36 M/UL (4.70-6.10) L 2.23 M/UL (4.70-6.10) L Hemoglobin 7.8 G/DL (14.2-18.0) L 7.3 G/DL (14.2-18.0) L Hematocrit 22.7 % (42.0-52.0) L 21.7 % (42.0-52.0) L Mean Corpuscular Volume 96 FL (80-99) 98 FL (80-99) Mean Corpuscular Hemoglobin 32.9 PG (27.0-31.0) H 32.9 PG (27.0-31.0) H Mean Corpuscular Hemoglobin Concent 34.2 G/DL (32.0-36.0) 33.7 G/DL (32.0-36.0) Red Cell Distribution Width 13.2 % (11.6-14.8) 13.9 % (11.6-14.8) Platelet Count 44 K/UL (150-450) L 40 K/UL (150-450) L Mean Platelet Volume 8.8 FL (6.5-10.1) 9.5 FL (6.5-10.1) Neutrophils (%) (Auto) % (45.0-75.0) % (45.0-75.0) Lymphocytes (%) (Auto) % (20.0-45.0) % (20.0-45.0) Monocytes (%) (Auto) % (1.0-10.0) % (1.0-10.0) Eosinophils (%) (Auto) % (0.0-3.0) % (0.0-3.0) Basophils (%) (Auto) % (0.0-2.0) % (0.0-2.0) Differential Total Cells Counted 100 100 Neutrophils % (Manual) 56 % (45-75) 43 % (45-75) L Lymphocytes % (Manual) 13 % (20-45) L 16 % (20-45) L Monocytes % (Manual) 9 % (1-10) 21 % (1-10) H Eosinophils % (Manual) 2 % (0-3) 0 % (0-3) Basophils % (Manual) 1 % (0-2) 0 % (0-2) Band Neutrophils 19 % (0-8) H 20 % (0-8) H Platelet Estimate Decreased L Decreased L Platelet Morphology Normal Hypochromasia 1+ 1+ Anisocytosis 1+ Giant Platelets Rare Macrocytosis 1+ Sodium Level 149 MMOL/L (136-145) H Potassium Level 2.9 MMOL/L (3.5-5.1) L Chloride Level 113 MMOL/L (98-107) H Carbon Dioxide Level 30 MMOL/L (21-32) Anion Gap 6 mmol/L (5-15) Blood Urea Nitrogen 16 mg/dL (7-18) Creatinine 0.9 MG/DL (0.55-1.30) Estimat Glomerular Filtration Rate > 60 mL/min (>60) Glucose Level 164 MG/DL (74-106) H Uric Acid 2.0 MG/DL (2.6-7.2) L Calcium Level 7.3 MG/DL (8.5-10.1) L Phosphorus Level 1.1 MG/DL (2.5-4.9) L Magnesium Level 1.6 MG/DL (1.8-2.4) L Total Bilirubin 3.7 MG/DL (0.2-1.0) H Direct Bilirubin 2.8 MG/DL (0.0-0.3) H Aspartate Amino Transf (AST/SGOT) 153 U/L (15-37) H Alanine Aminotransferase (ALT/SGPT) 40 U/L (12-78) Alkaline Phosphatase 95 U/L (46-116) Troponin I 0.069 ng/mL (0.000-0.056) C-Reactive Protein, Quantitative 9.6 mg/dL (0.00-0.90) H Pro-B-Type Natriuretic Peptide 1697 pg/mL (0-125) H Total Protein 4.4 G/DL (6.4-8.2) L Albumin 1.6 G/DL (3.4-5.0) L Globulin 2.8 g/dL Albumin/Globulin Ratio 0.6 (1.0-2.7) L Random Gentamicin Level 2.0 ug/mL Test 02/18/19 10:22 Lactic Acid Level 2.20 mmol/L (0.66-2.22) Plan Problems: (1) Non-compliance Assessment & Plan: Noncompliance with seizure medication with known history of seizures Now had seizure Appreciate neurology input (2) Electrolyte and fluid disorder Assessment & Plan: Likely due to EtOH use and dehydration IV hydration Trend labs (3) Fever (4) Oral thrush (5) Diarrhea (6) Aspiration pneumonia (7) Seizure disorder (8) Tachycardia (9) Altered mental status (10) Alcohol withdrawal seizure (11) Alcohol withdrawal seizure (12) Episode of confusion (13) Coffee ground emesis (14) Gastrointestinal bleed Assessment & Plan: Patient on admission identified to have maroon-colored stool and coffee-ground emesis. Labs noted mild anemia with H&H trending down. No acute active bleed noted but given patient's history high risk for potential ulcers. PPI Appreciate GI input considerations for EGD once stable We will follow with recommendations thank you (15) Sinus tachycardia (16) Septic shock (17) Sepsis Assessment & Plan: Patient septic leukocytosis improved today lactic acidosis improving anemia renal function declining electrolyte disturbance US noted on pressors now but weaning on IV abx intubated on vent support cont with aggressive resuscitation (18) Lactic acid acidosis (19) STEFANI (acute kidney injury) (20) Abnormal LFTs (21) High anion gap metabolic acidosis Juanpablo Marcus Feb 18, 2019 11:46
--- NOTE | 2019-02-18 11:49 | Pulmonolgy Critical Care Note ---
Critical Care - Asmt/Plan Problems: (1) Seizure disorder (2) Endotracheally intubated (3) Septic shock (4) Sepsis (5) Sinus tachycardia (6) Lactic acid acidosis (7) High anion gap metabolic acidosis (8) STEFANI (acute kidney injury) (9) Abnormal LFTs (10) Coffee ground emesis (11) Gastrointestinal bleed (12) Altered mental status (13) Alcohol withdrawal seizure (14) Ventilator dependent Assessment/Plan: Continue [id number]@100 Replete K and phos Titrate NE to keep MAP > 60, off Vaso Continue Vano/Zosyn/Gent per ID, F/U Cx's Trend Cr, LA, LFT's STAT CT-A CAP (already ordered), can be done with ICU/ACLS RN and crash cart F/U GI recs, PPI, EGD possibly tuesday Monitor HH and platelets, transfuse as needed, EGD tomorrow Banana bag daily Monitor for EtOH w/drawal, PRN ativan Continue AEDs, monitor for Sz's, F/U neuro recs FC CCT 35 Critical Care - Objective Last 24 Hour Vital Signs Date Time Temp Pulse Resp B/P (MAP) Pulse Ox O2 Delivery O2 Flow Rate FiO2 02/18/19 10:43 117 32 40 02/18/19 09:01 118 32 40 02/18/19 06:44 129 30 40 02/18/19 06:00 121 28 100/61 (74) 100 02/18/19 05:45 128 29 105/61 (76) 98 02/18/19 05:30 128 29 92/28 (49) 99 02/18/19 05:25 133 28 40 02/18/19 05:15 127 31 99/60 (73) 99 02/18/19 05:11 107/63 02/18/19 05:00 129 34 107/63 (78) 100 02/18/19 04:45 137 29 118/73 (88) 02/18/19 04:30 125 28 105/68 (80) 99 02/18/19 04:15 128 31 106/68 (81) 98 02/18/19 04:00 128 29 107/66 (80) 97 02/18/19 04:00 Mechanical Ventilator 02/18/19 04:00 40 02/18/19 04:00 128 02/18/19 03:45 123 28 113/70 (84) 100 02/18/19 03:30 121 25 108/64 (79) 98 02/18/19 03:15 122 27 113/68 (83) 98 02/18/19 03:11 122 26 40 02/18/19 03:00 124 29 102/71 (81) 99 02/18/19 02:45 128 29 110/65 (80) 99 02/18/19 02:30 127 29 110/72 (85) 99 02/18/19 02:15 118 26 104/62 (76) 100 02/18/19 02:00 122 27 99/60 (73) 100 02/18/19 01:45 131 29 96/65 (75) 98 02/18/19 01:31 135 24 40 02/18/19 01:30 128 30 118/72 (87) 99 02/18/19 01:15 130 29 103/62 (76) 98 02/18/19 01:00 133 27 101/68 (79) 96 02/18/19 00:45 121 26 93/62 (72) 99 02/18/19 00:30 122 26 112/61 (78) 99 02/18/19 00:15 125 27 109/67 (81) 99 02/18/19 00:00 40 02/18/19 00:00 Mechanical Ventilator 02/18/19 00:00 98.6 127 30 104/64 (77) 98 02/18/19 00:00 127 02/17/19 23:45 125 27 99/63 (75) 99 02/17/19 23:30 131 27 92/61 (71) 99 02/17/19 23:26 136 31 40 02/17/19 23:15 138 31 102/61 (75) 97 02/17/19 23:00 138 29 114/63 (80) 96 02/17/19 22:59 116/67 02/17/19 22:45 125 27 116/67 (83) 98 02/17/19 22:30 126 28 115/69 (84) 99 02/17/19 22:30 124 115/69 02/17/19 22:15 137 33 107/66 (80) 97 02/17/19 22:00 125 27 112/67 (82) 98 02/17/19 21:45 123 27 119/71 (87) 100 02/17/19 21:31 127 28 91/63 (72) 98 02/17/19 21:30 128 28 113/66 (82) 98 02/17/19 21:30 130 26 40 02/17/19 21:15 126 27 120/54 (76) 98 02/17/19 21:00 136 30 98/65 (76) 97 02/17/19 20:45 143 33 115/70 (85) 97 02/17/19 20:30 133 28 110/70 (83) 98 02/17/19 20:15 139 30 100/64 (76) 98 02/17/19 20:00 98.8 143 25 96/59 (71) 97 02/17/19 20:00 40 02/17/19 20:00 Mechanical Ventilator 02/17/19 20:00 144 02/17/19 19:45 139 29 87/58 (68) 99 02/17/19 19:30 142 29 111/68 (82) 100 02/17/19 19:30 142 29 111/68 (82) 100 02/17/19 19:15 137 26 108/67 (81) 72 02/17/19 19:00 135 28 97/70 (79) 98 02/17/19 19:00 97/48 02/17/19 19:00 133 28 40 02/17/19 18:45 133 28 103/64 (77) 98 02/17/19 18:32 141 24 112/50 (70) 97 02/17/19 18:15 127 27 97/48 (64) 98 02/17/19 18:00 106/67 02/17/19 18:00 130 25 113/71 (85) 99 02/17/19 17:45 132 28 106/67 (80) 98 02/17/19 17:30 132 28 106/63 (77) 99 02/17/19 17:15 136 27 115/82 (93) 98 02/17/19 17:08 134 32 40 02/17/19 17:00 98.9 133 26 102/68 (79) 98 02/17/19 17:00 115/82 02/17/19 16:40 99/55 02/17/19 16:30 129 28 99/55 (70) 98 02/17/19 16:00 130 26 112/69 (83) 98 02/17/19 16:00 71/48 02/17/19 16:00 125 02/17/19 16:00 40 02/17/19 16:00 Mechanical Ventilator 02/17/19 15:30 126 26 99/56 (70) 100 02/17/19 15:00 93/60 02/17/19 15:00 123 27 64/42 (49) 98 02/17/19 14:55 109 26 40 02/17/19 14:30 115 27 119/71 (87) 100 02/17/19 14:00 123/74 02/17/19 14:00 112 27 123/74 (90) 100 02/17/19 13:45 116 31 119/71 (87) 100 02/17/19 13:30 116 28 123/76 (92) 100 02/17/19 13:15 114 28 112/63 (79) 100 02/17/19 13:05 114 28 40 02/17/19 13:00 117 29 91/49 (63) 100 02/17/19 13:00 112/63 02/17/19 12:45 120 33 115/72 (86) 100 02/17/19 12:30 117 31 112/70 (84) 100 02/17/19 12:15 131 25 98/62 (74) 100 02/17/19 12:00 119 02/17/19 12:00 98/62 02/17/19 12:00 98.9 122 31 121/70 (87) 100 02/17/19 12:00 40 02/17/19 12:00 Mechanical Ventilator Status: sedated - intubated Condition: critical HEENT: atraumatic, normocephalic Lungs: rales Heart: HR/BP unstable Abdomen: soft, non-tender, active bowel sounds Extremities: no C/C/E Micro: Microbiology Date/Time Source Procedure Growth Status 02/17/19 06:30 Blood Blood Culture - Preliminary Gram Negative Isac Resulted 02/17/19 06:25 Blood Blood Culture - Preliminary Gram Negative Isac Resulted 02/16/19 19:30 Sputum Gram Stain - Final Resulted 02/16/19 19:30 Sputum Sputum Culture - Preliminary NO GROWTH AFTER 24 HOURS Resulted Accucheck: 33 Blood Sugars: BS not controlled Critical Care - Subjective ROS Limited/Unobtainable: Yes ICU Day: 4 Intubation Day: 3 Interval Events: Tarry stool, dark NGT OP Plan for EGD tomm Ne 16 off Vaso LA better More alert Condition: critical IV Access: central EKG Rhythm: Sinus Tachycardia FI02: 40 Vent Support Breath Rate: 26 Vent Support Mode: AC Vent Tidal Volume: 500 Sputum Amount: Small PEEP: 5.0 PIP: 30 Fluids: D51/[id number]@100 Drips: NE@16 I&O: Intake and Output 02/17/19 02/18/19 18:59 06:59 Intake Total 3940.375 ml 2420.00 ml Output Total 1875 ml 1450 ml Balance 2065.375 ml 970.00 ml IV Total 3940.375 ml 2420.00 ml Output Urine Total 1875 ml 1450 ml # Bowel Movements 2 Subjective: [place] ET-Tube: 7.5 ET Position: 24 Labs: Laboratory Tests Test 02/17/19 11:50 02/17/19 13:07 02/17/19 18:24 02/18/19 05:00 Lactic Acid Level 2.90 mmol/L (0.66-2.22) H 3.00 mmol/L (0.4-2.0) H 2.60 mmol/L (0.4-2.0) H 2.80 mmol/L (0.4-2.0) H White Blood Count 15.2 K/UL (4.8-10.8) H 13.2 K/UL (4.8-10.8) H Red Blood Count 2.36 M/UL (4.70-6.10) L 2.23 M/UL (4.70-6.10) L Hemoglobin 7.8 G/DL (14.2-18.0) L 7.3 G/DL (14.2-18.0) L Hematocrit 22.7 % (42.0-52.0) L 21.7 % (42.0-52.0) L Mean Corpuscular Volume 96 FL (80-99) 98 FL (80-99) Mean Corpuscular Hemoglobin 32.9 PG (27.0-31.0) H 32.9 PG (27.0-31.0) H Mean Corpuscular Hemoglobin Concent 34.2 G/DL (32.0-36.0) 33.7 G/DL (32.0-36.0) Red Cell Distribution Width 13.2 % (11.6-14.8) 13.9 % (11.6-14.8) Platelet Count 44 K/UL (150-450) L 40 K/UL (150-450) L Mean Platelet Volume 8.8 FL (6.5-10.1) 9.5 FL (6.5-10.1) Neutrophils (%) (Auto) % (45.0-75.0) % (45.0-75.0) Lymphocytes (%) (Auto) % (20.0-45.0) % (20.0-45.0) Monocytes (%) (Auto) % (1.0-10.0) % (1.0-10.0) Eosinophils (%) (Auto) % (0.0-3.0) % (0.0-3.0) Basophils (%) (Auto) % (0.0-2.0) % (0.0-2.0) Differential Total Cells Counted 100 100 Neutrophils % (Manual) 56 % (45-75) 43 % (45-75) L Lymphocytes % (Manual) 13 % (20-45) L 16 % (20-45) L Monocytes % (Manual) 9 % (1-10) 21 % (1-10) H Eosinophils % (Manual) 2 % (0-3) 0 % (0-3) Basophils % (Manual) 1 % (0-2) 0 % (0-2) Band Neutrophils 19 % (0-8) H 20 % (0-8) H Platelet Estimate Decreased L Decreased L Platelet Morphology Normal Hypochromasia 1+ 1+ Anisocytosis 1+ Giant Platelets Rare Macrocytosis 1+ Sodium Level 149 MMOL/L (136-145) H Potassium Level 2.9 MMOL/L (3.5-5.1) L Chloride Level 113 MMOL/L (98-107) H Carbon Dioxide Level 30 MMOL/L (21-32) Anion Gap 6 mmol/L (5-15) Blood Urea Nitrogen 16 mg/dL (7-18) Creatinine 0.9 MG/DL (0.55-1.30) Estimat Glomerular Filtration Rate > 60 mL/min (>60) Glucose Level 164 MG/DL (74-106) H Uric Acid 2.0 MG/DL (2.6-7.2) L Calcium Level 7.3 MG/DL (8.5-10.1) L Phosphorus Level 1.1 MG/DL (2.5-4.9) L Magnesium Level 1.6 MG/DL (1.8-2.4) L Total Bilirubin 3.7 MG/DL (0.2-1.0) H Direct Bilirubin 2.8 MG/DL (0.0-0.3) H Aspartate Amino Transf (AST/SGOT) 153 U/L (15-37) H Alanine Aminotransferase (ALT/SGPT) 40 U/L (12-78) Alkaline Phosphatase 95 U/L (46-116) Troponin I 0.069 ng/mL (0.000-0.056) C-Reactive Protein, Quantitative 9.6 mg/dL (0.00-0.90) H Pro-B-Type Natriuretic Peptide 1697 pg/mL (0-125) H Total Protein 4.4 G/DL (6.4-8.2) L Albumin 1.6 G/DL (3.4-5.0) L Globulin 2.8 g/dL Albumin/Globulin Ratio 0.6 (1.0-2.7) L Random Gentamicin Level 2.0 ug/mL Test 02/18/19 10:22 Lactic Acid Level 2.20 mmol/L (0.66-2.22) Han Harris MD Feb 18, 2019 11:49
--- NOTE | 2019-02-18 11:51 | NUR ---
NURSE NOTES: Called Sister multiple times with no answer. Dr Harris put in his note that the patient needs blood in emergency. Dr Harris also reported that the lactic does not need to be redrawn as the last value was 2.2.
--- NOTE | 2019-02-18 12:00 | NUR ---
NURSE NOTES: Patient blood pressure 98/61, HR 125, temp 98.9, O2 sat 100%, and RR 26. Patient sightly restless at this time but drowsy. Patient remains on bilateral soft wrist restraint due to patient witnessed attempting to remove ETT/OGT. Patient intubated with ETT 8cm with 24cm at the lip line. Setting AC 26, tidal volume 500, FiO2 40%, and PEEP 5. Patient NPO with yellow/pink with blood clots gastric secretion. Patient has oral gastric tube that is patent and verified with auscultation at this time. Patient has tarry black stool. Patient skin intact with some excoriation on the scrotum from frequent bowel movements. Patient has delgado for urine retention with pink, blood tinged urine with bloody sediment. Patient has right forearm 20 gauge PIV that is patent and asymptomatic at this time. Patient has left femoral triple lumen catheter that is patent, asymptomatic, and dressing intact. Patient on levophed drip at 16 mcg/min. Will monitor blood pressure and titrate drips per protocol. Patient running D51/2NS with 20mEq at 100mL/hr and banana bag at 125mL/hr. Patient bed in low position with bed alarm on and call light in reach at this time.
--- NOTE | 2019-02-18 12:57 | Nephrology Progress Note ---
Assessment/Plan Problem List: (1) STEFANI (acute kidney injury) Assessment: Cr lower (2) Septic shock (3) Electrolyte and fluid disorder (4) Abnormal LFTs Assessment - STEFANI (acute kidney injury) - Septic shock - Lactic acid acidosis - Abnormal LFTs - Gastrointestinal bleed - Alcohol withdrawal seizure Plan K and Mag and Phos supplement as needed Hemodynamic support Pressors / Fluids Aim to correct the electrolyte and acid base imbalance monitor renal parameters gastric support switch dilantin to keppra as LFTs rising per orders Subjective ROS Limited/Unobtainable: Yes Objective Objective Last 24 Hour Vital Signs Date Time Temp Pulse Resp B/P (MAP) Pulse Ox O2 Delivery O2 Flow Rate FiO2 02/18/19 10:43 117 32 40 02/18/19 09:01 118 32 40 02/18/19 06:44 129 30 40 02/18/19 06:00 121 28 100/61 (74) 100 02/18/19 05:45 128 29 105/61 (76) 98 02/18/19 05:30 128 29 92/28 (49) 99 02/18/19 05:25 133 28 40 02/18/19 05:15 127 31 99/60 (73) 99 02/18/19 05:11 107/63 02/18/19 05:00 129 34 107/63 (78) 100 02/18/19 04:45 137 29 118/73 (88) 02/18/19 04:30 125 28 105/68 (80) 99 02/18/19 04:15 128 31 106/68 (81) 98 02/18/19 04:00 128 29 107/66 (80) 97 02/18/19 04:00 Mechanical Ventilator 02/18/19 04:00 40 02/18/19 04:00 128 02/18/19 03:45 123 28 113/70 (84) 100 02/18/19 03:30 121 25 108/64 (79) 98 02/18/19 03:15 122 27 113/68 (83) 98 02/18/19 03:11 122 26 40 02/18/19 03:00 124 29 102/71 (81) 99 02/18/19 02:45 128 29 110/65 (80) 99 02/18/19 02:30 127 29 110/72 (85) 99 02/18/19 02:15 118 26 104/62 (76) 100 02/18/19 02:00 122 27 99/60 (73) 100 02/18/19 01:45 131 29 96/65 (75) 98 02/18/19 01:31 135 24 40 02/18/19 01:30 128 30 118/72 (87) 99 02/18/19 01:15 130 29 103/62 (76) 98 02/18/19 01:00 133 27 101/68 (79) 96 02/18/19 00:45 121 26 93/62 (72) 99 02/18/19 00:30 122 26 112/61 (78) 99 02/18/19 00:15 125 27 109/67 (81) 99 02/18/19 00:00 40 02/18/19 00:00 Mechanical Ventilator 02/18/19 00:00 98.6 127 30 104/64 (77) 98 02/18/19 00:00 127 02/17/19 23:45 125 27 99/63 (75) 99 02/17/19 23:30 131 27 92/61 (71) 99 02/17/19 23:26 136 31 40 02/17/19 23:15 138 31 102/61 (75) 97 02/17/19 23:00 138 29 114/63 (80) 96 02/17/19 22:59 116/67 02/17/19 22:45 125 27 116/67 (83) 98 02/17/19 22:30 126 28 115/69 (84) 99 02/17/19 22:30 124 115/69 02/17/19 22:15 137 33 107/66 (80) 97 02/17/19 22:00 125 27 112/67 (82) 98 02/17/19 21:45 123 27 119/71 (87) 100 02/17/19 21:31 127 28 91/63 (72) 98 02/17/19 21:30 128 28 113/66 (82) 98 02/17/19 21:30 130 26 40 02/17/19 21:15 126 27 120/54 (76) 98 02/17/19 21:00 136 30 98/65 (76) 97 02/17/19 20:45 143 33 115/70 (85) 97 02/17/19 20:30 133 28 110/70 (83) 98 02/17/19 20:15 139 30 100/64 (76) 98 02/17/19 20:00 98.8 143 25 96/59 (71) 97 02/17/19 20:00 40 02/17/19 20:00 Mechanical Ventilator 02/17/19 20:00 144 02/17/19 19:45 139 29 87/58 (68) 99 02/17/19 19:30 142 29 111/68 (82) 100 02/17/19 19:30 142 29 111/68 (82) 100 02/17/19 19:15 137 26 108/67 (81) 72 02/17/19 19:00 135 28 97/70 (79) 98 02/17/19 19:00 97/48 02/17/19 19:00 133 28 40 02/17/19 18:45 133 28 103/64 (77) 98 02/17/19 18:32 141 24 112/50 (70) 97 02/17/19 18:15 127 27 97/48 (64) 98 02/17/19 18:00 106/67 02/17/19 18:00 130 25 113/71 (85) 99 02/17/19 17:45 132 28 106/67 (80) 98 02/17/19 17:30 132 28 106/63 (77) 99 02/17/19 17:15 136 27 115/82 (93) 98 02/17/19 17:08 134 32 40 02/17/19 17:00 98.9 133 26 102/68 (79) 98 02/17/19 17:00 115/82 02/17/19 16:40 99/55 02/17/19 16:30 129 28 99/55 (70) 98 02/17/19 16:00 130 26 112/69 (83) 98 02/17/19 16:00 71/48 02/17/19 16:00 125 02/17/19 16:00 40 02/17/19 16:00 Mechanical Ventilator 02/17/19 15:30 126 26 99/56 (70) 100 02/17/19 15:00 93/60 02/17/19 15:00 123 27 64/42 (49) 98 02/17/19 14:55 109 26 40 02/17/19 14:30 115 27 119/71 (87) 100 02/17/19 14:00 123/74 02/17/19 14:00 112 27 123/74 (90) 100 02/17/19 13:45 116 31 119/71 (87) 100 02/17/19 13:30 116 28 123/76 (92) 100 02/17/19 13:15 114 28 112/63 (79) 100 02/17/19 13:05 114 28 40 02/17/19 13:00 117 29 91/49 (63) 100 02/17/19 13:00 112/63 Intake and Output 02/17/19 02/18/19 18:59 06:59 Intake Total 3940.375 ml 2420.00 ml Output Total 1875 ml 1450 ml Balance 2065.375 ml 970.00 ml IV Total 3940.375 ml 2420.00 ml Output Urine Total 1875 ml 1450 ml # Bowel Movements 2 Laboratory Tests 02/17/19 13:07: Lactic Acid Level 3.00H 02/17/19 18:24: Lactic Acid Level 2.60H, White Blood Count 15.2H, Red Blood Count 2.36L, Hemoglobin 7.8L, Hematocrit 22.7L, Mean Corpuscular Volume 96, Mean Corpuscular Hemoglobin 32.9H, Mean Corpuscular Hemoglobin Concent 34.2, Red Cell Distribution Width 13.2, Platelet Count 44L, Mean Platelet Volume 8.8, Neutrophils (%) (Auto) , Lymphocytes (%) (Auto) , Monocytes (%) (Auto) , Eosinophils (%) (Auto) , Basophils (%) (Auto) , Differential Total Cells Counted 100, Neutrophils % (Manual) 56, Lymphocytes % (Manual) 13L, Monocytes % (Manual) 9, Eosinophils % (Manual) 2, Basophils % (Manual) 1, Band Neutrophils 19H, Platelet Estimate DecreasedL, Platelet Morphology Normal, Hypochromasia 1+ , Anisocytosis 1+ 02/18/19 05:00: Lactic Acid Level 2.80H, White Blood Count 13.2H, Red Blood Count 2.23L, Hemoglobin 7.3L, Hematocrit 21.7L, Mean Corpuscular Volume 98, Mean Corpuscular Hemoglobin 32.9H, Mean Corpuscular Hemoglobin Concent 33.7, Red Cell Distribution Width 13.9, Platelet Count 40L, Mean Platelet Volume 9.5, Neutrophils (%) (Auto) , Lymphocytes (%) (Auto) , Monocytes (%) (Auto) , Eosinophils (%) (Auto) , Basophils (%) (Auto) , Differential Total Cells Counted 100, Neutrophils % (Manual) 43L, Lymphocytes % (Manual) 16L, Monocytes % (Manual) 21H, Eosinophils % (Manual) 0, Basophils % (Manual) 0, Band Neutrophils 20H, Platelet Estimate DecreasedL, Platelet Morphology , Hypochromasia 1+, Giant Platelets Rare, Macrocytosis 1+, Sodium Level 149H, Potassium Level 2.9L, Chloride Level 113H, Carbon Dioxide Level 30, Anion Gap 6 , Blood Urea Nitrogen 16, Creatinine 0.9, Estimat Glomerular Filtration Rate > 60, Glucose Level 164H, Uric Acid 2.0L, Calcium Level 7.3L, Phosphorus Level 1.1L, Magnesium Level 1.6L, Total Bilirubin 3.7H, Direct Bilirubin 2.8H, Aspartate Amino Transf (AST/SGOT) 153H, Alanine Aminotransferase (ALT/SGPT) 40, Alkaline Phosphatase 95, Troponin I 0.069H, C-Reactive Protein, Quantitative 9.6H, Pro-B-Type Natriuretic Peptide 1697H, Total Protein 4.4L, Albumin 1.6L, Globulin 2.8, Albumin/Globulin Ratio 0.6L, Random Gentamicin Level 2.0 02/18/19 10:22: Lactic Acid Level 2.20 Height (Feet): 5 Height (Inches): 5.00 Weight (Pounds): 130 General Appearance: no apparent distress Respiratory/Chest: decreased breath sounds Abdomen: distended Scotty Bailon MD Feb 18, 2019 12:57
--- NOTE | 2019-02-18 13:11 | Infectious Diseases Prog Note ---
Assessment/Plan Assessment/Plan ASSESSMENT AND PLAN: 1. sepsis, shock, gram neg bacteremia, gram neg sepsis, e.coli uti, pna/HCAP, ct noted, leukocytosis, sirs, fevers - zosyn, vancomycin, gentamicin - check final blood cultures, labs and chest x-ray - icu and supportive care 2. History of seizures. Workup per Neurology. 3. Acute kidney injury, likely secondary to sepsis. 4. The patient is anemic. 5. Severe sepsis with leukocytosis. 6. History of ETOH abuse. 7. No known allergies. 8. Family history is noncontributory. 9. MAR was noted. 10. Case was discussed with RN. 11. Social history is positive for ETOH abuse. 12. Poor prognosis. Subjective Constitutional: Denies: fever HEENT: Reports: congestion Respiratory: Reports: shortness of breath Cardiovascular: Denies: chest pain Gastrointestinal/Abdominal: Reports: diarrhea, other - black, tarry stool ; Denies: nausea, vomiting Genitourinary: Reports: other - + delgado Neurologic: Reports: weakness; Denies: headache Psychiatric: Denies: depression Skin: Denies: rash Hematologic: Reports: bleeding - + black, tarry school Musculoskeletal: Denies: pain Allergies: Coded Allergies: No Known Allergies (Unverified , 02/10/15) Objective Vital Signs Last 24 Hour Vital Signs Date Time Temp Pulse Resp B/P (MAP) Pulse Ox O2 Delivery O2 Flow Rate FiO2 02/18/19 10:43 117 32 40 02/18/19 09:01 118 32 40 02/18/19 06:44 129 30 40 02/18/19 06:00 121 28 100/61 (74) 100 02/18/19 05:45 128 29 105/61 (76) 98 02/18/19 05:30 128 29 92/28 (49) 99 02/18/19 05:25 133 28 40 02/18/19 05:15 127 31 99/60 (73) 99 02/18/19 05:11 107/63 02/18/19 05:00 129 34 107/63 (78) 100 02/18/19 04:45 137 29 118/73 (88) 02/18/19 04:30 125 28 105/68 (80) 99 02/18/19 04:15 128 31 106/68 (81) 98 02/18/19 04:00 128 29 107/66 (80) 97 02/18/19 04:00 Mechanical Ventilator 02/18/19 04:00 40 02/18/19 04:00 128 02/18/19 03:45 123 28 113/70 (84) 100 02/18/19 03:30 121 25 108/64 (79) 98 02/18/19 03:15 122 27 113/68 (83) 98 02/18/19 03:11 122 26 40 02/18/19 03:00 124 29 102/71 (81) 99 02/18/19 02:45 128 29 110/65 (80) 99 02/18/19 02:30 127 29 110/72 (85) 99 02/18/19 02:15 118 26 104/62 (76) 100 02/18/19 02:00 122 27 99/60 (73) 100 02/18/19 01:45 131 29 96/65 (75) 98 02/18/19 01:31 135 24 40 02/18/19 01:30 128 30 118/72 (87) 99 02/18/19 01:15 130 29 103/62 (76) 98 02/18/19 01:00 133 27 101/68 (79) 96 02/18/19 00:45 121 26 93/62 (72) 99 02/18/19 00:30 122 26 112/61 (78) 99 02/18/19 00:15 125 27 109/67 (81) 99 02/18/19 00:00 40 02/18/19 00:00 Mechanical Ventilator 02/18/19 00:00 98.6 127 30 104/64 (77) 98 02/18/19 00:00 127 02/17/19 23:45 125 27 99/63 (75) 99 02/17/19 23:30 131 27 92/61 (71) 99 02/17/19 23:26 136 31 40 02/17/19 23:15 138 31 102/61 (75) 97 02/17/19 23:00 138 29 114/63 (80) 96 02/17/19 22:59 116/67 02/17/19 22:45 125 27 116/67 (83) 98 02/17/19 22:30 126 28 115/69 (84) 99 02/17/19 22:30 124 115/69 02/17/19 22:15 137 33 107/66 (80) 97 02/17/19 22:00 125 27 112/67 (82) 98 02/17/19 21:45 123 27 119/71 (87) 100 02/17/19 21:31 127 28 91/63 (72) 98 02/17/19 21:30 128 28 113/66 (82) 98 02/17/19 21:30 130 26 40 02/17/19 21:15 126 27 120/54 (76) 98 02/17/19 21:00 136 30 98/65 (76) 97 02/17/19 20:45 143 33 115/70 (85) 97 02/17/19 20:30 133 28 110/70 (83) 98 02/17/19 20:15 139 30 100/64 (76) 98 02/17/19 20:00 98.8 143 25 96/59 (71) 97 02/17/19 20:00 40 02/17/19 20:00 Mechanical Ventilator 02/17/19 20:00 144 02/17/19 19:45 139 29 87/58 (68) 99 02/17/19 19:30 142 29 111/68 (82) 100 02/17/19 19:30 142 29 111/68 (82) 100 02/17/19 19:15 137 26 108/67 (81) 72 02/17/19 19:00 135 28 97/70 (79) 98 02/17/19 19:00 97/48 02/17/19 19:00 133 28 40 02/17/19 18:45 133 28 103/64 (77) 98 02/17/19 18:32 141 24 112/50 (70) 97 02/17/19 18:15 127 27 97/48 (64) 98 02/17/19 18:00 106/67 02/17/19 18:00 130 25 113/71 (85) 99 02/17/19 17:45 132 28 106/67 (80) 98 02/17/19 17:30 132 28 106/63 (77) 99 02/17/19 17:15 136 27 115/82 (93) 98 02/17/19 17:08 134 32 40 02/17/19 17:00 98.9 133 26 102/68 (79) 98 02/17/19 17:00 115/82 02/17/19 16:40 99/55 02/17/19 16:30 129 28 99/55 (70) 98 02/17/19 16:00 130 26 112/69 (83) 98 02/17/19 16:00 71/48 02/17/19 16:00 125 02/17/19 16:00 40 02/17/19 16:00 Mechanical Ventilator 02/17/19 15:30 126 26 99/56 (70) 100 02/17/19 15:00 93/60 02/17/19 15:00 123 27 64/42 (49) 98 02/17/19 14:55 109 26 40 02/17/19 14:30 115 27 119/71 (87) 100 02/17/19 14:00 123/74 02/17/19 14:00 112 27 123/74 (90) 100 02/17/19 13:45 116 31 119/71 (87) 100 02/17/19 13:30 116 28 123/76 (92) 100 02/17/19 13:15 114 28 112/63 (79) 100 02/17/19 13:05 114 28 40 Height (Feet): 5 Height (Inches): 5.00 Weight (Pounds): 130 General Appearance: other - + vent HEENT: normocephalic, atraumatic, anicteric, no JVD, other - oral - intubated Respiratory/Chest: crackles/rales, rhonchi - bilaterally Cardiovascular: normal rate, regular rhythm, regularly irregular, no JVD Abdomen: normal bowel sounds, soft, non tender, no organomegaly, non distended Genitourinary: other - + delgado - urine clear Extremities: no cyanosis Skin: no rash Neurologic/Psychiatric: comb setter II-XII grossly normal, alert, responsive, other - oral - intubated Lymphatic: no neck adenopathy Musculoskeletal: no effusion Objective CT abdomen and pelvis reading noted in paper chart - no abscess, ? enterocolitis , dense airspace disease Chest x-ray - 02/17/19 - Procedure: XRAY Chest 1v Indication: Dyspnea Comparison: 02/16/2019 A single view chest radiograph was obtained. Findings: Left basilar consolidation with air bronchograms demonstrated. Costophrenic angle is obscured. Heart size is normal. Tubes and lines are stable and satisfactory in position. IMPRESSION: No significant change from the previous exam Microbiology Date/Time Source Procedure Growth Status 02/17/19 06:30 Blood Blood Culture - Preliminary Gram Negative Isac Resulted 02/16/19 19:30 Sputum Gram Stain - Final Resulted 02/16/19 19:30 Sputum Sputum Culture - Preliminary NO GROWTH AFTER 24 HOURS Resulted 02/14/19 12:30 Urine,Clean Catch Urine Culture - Final Escherichia Coli Complete Microbiology Date/Time Source Procedure Growth Status 02/17/19 06:30 Blood Blood Culture - Preliminary Gram Negative Isac Resulted 02/17/19 06:25 Blood Blood Culture - Preliminary Gram Negative Isac Resulted 02/16/19 19:30 Sputum Gram Stain - Final Resulted 02/16/19 19:30 Sputum Sputum Culture - Preliminary NO GROWTH AFTER 24 HOURS Resulted Laboratory Tests Test 02/17/19 13:07 02/17/19 18:24 02/18/19 05:00 02/18/19 10:22 Lactic Acid Level 3.00 mmol/L (0.4-2.0) H 2.60 mmol/L (0.4-2.0) H 2.80 mmol/L (0.4-2.0) H 2.20 mmol/L (0.66-2.22) White Blood Count 15.2 K/UL (4.8-10.8) H 13.2 K/UL (4.8-10.8) H Red Blood Count 2.36 M/UL (4.70-6.10) L 2.23 M/UL (4.70-6.10) L Hemoglobin 7.8 G/DL (14.2-18.0) L 7.3 G/DL (14.2-18.0) L Hematocrit 22.7 % (42.0-52.0) L 21.7 % (42.0-52.0) L Mean Corpuscular Volume 96 FL (80-99) 98 FL (80-99) Mean Corpuscular Hemoglobin 32.9 PG (27.0-31.0) H 32.9 PG (27.0-31.0) H Mean Corpuscular Hemoglobin Concent 34.2 G/DL (32.0-36.0) 33.7 G/DL (32.0-36.0) Red Cell Distribution Width 13.2 % (11.6-14.8) 13.9 % (11.6-14.8) Platelet Count 44 K/UL (150-450) L 40 K/UL (150-450) L Mean Platelet Volume 8.8 FL (6.5-10.1) 9.5 FL (6.5-10.1) Neutrophils (%) (Auto) % (45.0-75.0) % (45.0-75.0) Lymphocytes (%) (Auto) % (20.0-45.0) % (20.0-45.0) Monocytes (%) (Auto) % (1.0-10.0) % (1.0-10.0) Eosinophils (%) (Auto) % (0.0-3.0) % (0.0-3.0) Basophils (%) (Auto) % (0.0-2.0) % (0.0-2.0) Differential Total Cells Counted 100 100 Neutrophils % (Manual) 56 % (45-75) 43 % (45-75) L Lymphocytes % (Manual) 13 % (20-45) L 16 % (20-45) L Monocytes % (Manual) 9 % (1-10) 21 % (1-10) H Eosinophils % (Manual) 2 % (0-3) 0 % (0-3) Basophils % (Manual) 1 % (0-2) 0 % (0-2) Band Neutrophils 19 % (0-8) H 20 % (0-8) H Platelet Estimate Decreased L Decreased L Platelet Morphology Normal Hypochromasia 1+ 1+ Anisocytosis 1+ Giant Platelets Rare Macrocytosis 1+ Sodium Level 149 MMOL/L (136-145) H Potassium Level 2.9 MMOL/L (3.5-5.1) L Chloride Level 113 MMOL/L (98-107) H Carbon Dioxide Level 30 MMOL/L (21-32) Anion Gap 6 mmol/L (5-15) Blood Urea Nitrogen 16 mg/dL (7-18) Creatinine 0.9 MG/DL (0.55-1.30) Estimat Glomerular Filtration Rate > 60 mL/min (>60) Glucose Level 164 MG/DL (74-106) H Uric Acid 2.0 MG/DL (2.6-7.2) L Calcium Level 7.3 MG/DL (8.5-10.1) L Phosphorus Level 1.1 MG/DL (2.5-4.9) L Magnesium Level 1.6 MG/DL (1.8-2.4) L Total Bilirubin 3.7 MG/DL (0.2-1.0) H Direct Bilirubin 2.8 MG/DL (0.0-0.3) H Aspartate Amino Transf (AST/SGOT) 153 U/L (15-37) H Alanine Aminotransferase (ALT/SGPT) 40 U/L (12-78) Alkaline Phosphatase 95 U/L (46-116) Troponin I 0.069 ng/mL (0.000-0.056) C-Reactive Protein, Quantitative 9.6 mg/dL (0.00-0.90) H Pro-B-Type Natriuretic Peptide 1697 pg/mL (0-125) H Total Protein 4.4 G/DL (6.4-8.2) L Albumin 1.6 G/DL (3.4-5.0) L Globulin 2.8 g/dL Albumin/Globulin Ratio 0.6 (1.0-2.7) L Random Gentamicin Level 2.0 ug/mL Current Medications Medications (Trade) Dose Ordered Sig/Tonny Route PRN Reason Start Time Stop Time Status Last Admin Dose Admin Acetaminophen (Tylenol) 650 mg Q4H PRN ORAL Mild Pain (Pain Scale 1-3) 02/16/19 00:30 03/16/19 12:29 02/17/19 04:53 Acetaminophen (Tylenol) 650 mg Q4H PRN RECTAL Mild Pain (Pain Scale 1-3) 02/16/19 04:30 03/18/19 04:29 02/16/19 04:31 Bisacodyl (Dulcolax) 10 mg HSPRN PRN RECTAL Constipation 02/16/19 21:00 03/16/19 20:59 Chlorhexidine Gluconate (Stephanie-Hex 2%) 1 applic DAILY@1999 TOPIC 02/16/19 20:00 03/18/19 19:59 02/17/19 19:43 Dextrose (Dextrose 50%) 25 ml Q30M PRN IV Hypoglycemia 02/15/19 22:15 03/16/19 16:14 Dextrose (Dextrose 50%) 50 ml Q30M PRN IV Hypoglycemia 02/15/19 22:15 03/16/19 16:14 02/16/19 06:32 Dextrose/ Electrolytes 1,000 ml @ 100 mls/hr Q10H IV 02/17/19 15:00 03/19/19 14:59 02/18/19 03:50 Docusate Sodium (Colace) 100 mg TID ORAL 02/16/19 18:00 03/16/19 20:59 Folic Acid 1 mg/ Magnesium Sulfate 2000 mg/ Multivitamins 10 ml/Sodium Chloride 1,014.2 ml @ 125 mls/ hr Q24H IV 02/16/19 09:00 03/18/19 08:59 02/18/19 08:53 Gentamicin Protocol (Gentamicin pharmacy to dose) 1 ea DAILY PRN MISC Per rx protocol 02/16/19 18:00 03/18/19 17:59 Gentamicin Sulfate 300 mg/ Sodium Chloride 117.5 ml @ 117.5 mls/ hr Q24H IVPB 02/18/19 17:00 02/25/19 16:59 Iopamidol (Isovue-370 150ml) 150 ml NOW PRN INJ Radiology Procedure 02/17/19 14:45 02/19/19 14:43 Iopamidol (Isovue-370 150ml) 150 ml NOW PRN INJ Radiology Procedure 02/17/19 14:45 02/19/19 14:43 Levetiracetam 100 ml @ 400 mls/hr Q12HR IVPB 02/19/19 09:00 03/21/19 08:59 Lorazepam (Ativan 2mg/ml 1ml) 1 mg Q2H PRN IV For Anxiety 02/16/19 09:00 02/23/19 08:59 02/16/19 10:46 Lorazepam (Ativan 2mg/ml 1ml) 1 mg Q4H PRN IV For Seizures 02/16/19 00:15 02/23/19 00:14 02/16/19 00:07 Magnesium Sulfate 100 ml @ 100 mls/hr Q1H IVPB 02/18/19 10:30 02/18/19 14:29 02/18/19 12:15 Norepinephrine Bitartrate 8 mg/ Dextrose 508 ml @ 0 mls/hr Q24H IV 02/16/19 09:30 03/18/19 09:29 02/18/19 05:11 Ondansetron HCl (Zofran) 4 mg Q6H PRN IVP Nausea & Vomiting 02/16/19 01:00 03/16/19 12:59 Pantoprazole (Protonix) 40 mg EVERY 12 HOURS IVP 02/16/19 09:00 03/18/19 08:59 02/18/19 08:54 Phenylephrine HCl 50 mg/Dextrose 250 ml @ 0 mls/hr Q24H IV 02/16/19 22:30 03/18/19 22:29 Piperacillin Sod/ Tazobactam Sod 3.375 gm/Sodium Chloride 110 ml @ 27.5 mls/hr Q8HR IVPB 02/18/19 14:00 02/25/19 13:59 Potassium Phosphate 30 mm/ Sodium Chloride 285 ml @ 47.5 mls/hr ONCE IV 02/18/19 11:00 02/18/19 17:00 02/18/19 10:51 Potassium Chloride 100 ml @ 100 mls/hr Q1HR IVPB 02/18/19 11:00 02/18/19 14:59 02/18/19 12:16 Thiamine HCl 100 mg/Dextrose 56 ml @ 112 mls/hr Q24H IVPB 02/16/19 09:00 03/18/19 08:59 02/18/19 08:54 Vancomycin HCl (Vanco rx to dose) 1 ea DAILY PRN MISC Per rx protocol 02/16/19 09:00 03/17/19 12:59 Vancomycin HCl 500 mg/Dextrose 110 ml @ 110 mls/hr Q12HR IVPB 02/17/19 09:00 02/22/19 08:59 02/18/19 08:53 Vasopressin 100 units/Sodium Chloride 100 ml @ 0 mls/hr Q24H IV 02/16/19 08:15 03/18/19 08:14 02/16/19 08:15 Barry Plummer MD Feb 18, 2019 13:11
[2019-02-18] MEDS: Piperacillin/Tazobactam 3.375 GM in NS 110 ML IVPB SCH ×2 (13:35→22:07)
--- NOTE | 2019-02-18 13:44 | General Progress Note ---
Assessment/Plan Assessment/Plan: 54 year old male with pMH of seizure disorder and etoh abuse admitted for seizures 2/2 non-compliance #severe septic shock likely 2/2 UTI #Gram negative bacteremia #Acute respiratory failure -Vanc and Zosyn - gentamicin -ID consult appreciated -f/u cultures -cont ICU care -intubated and sedated -vent management per pulmonary -wean as tolerated -Titrate pressors to goal map >65 -abg prn -pending CT chest/abd/pel #Lactic acidosis -2/2 severe shock/ poss abd source/ seizures -CTM -Fluid boluses ordered -Cont mIVF -Repeat in AM - increased, bolused, pending repeat #Coagulopathy -likely 2/2 hepatic injury 2/2 shock #Coffee ground emesis likely in setting of GI bleed -H/H trending down -GI consult appreciated -Plan for EGD once stable -cont NPO -surgery consult appreciated #Seizures 2/2 noncomplaint with AED -s/p phenytoin load in ed -Cont Phenytoin -Neurology consult appreciated -pendign EEG -Ativan PRN for seizures -NPO -Seizure precautions #Hypokalemia #hypophos #Hypomagnesemia -repleted -CTM Code: Blogs Manager of note does not reflect time of encounter Subjective Allergies: Coded Allergies: No Known Allergies (Unverified , 02/10/15) Subjective Pt remains intubated and sedated, lactic acid trending down, pending CT Objective Last 24 Hour Vital Signs Date Time Temp Pulse Resp B/P (MAP) Pulse Ox O2 Delivery O2 Flow Rate FiO2 02/18/19 13:18 114 30 40 02/18/19 13:04 98/61 02/18/19 10:43 117 32 40 02/18/19 09:01 118 32 40 02/18/19 06:44 129 30 40 02/18/19 06:00 121 28 100/61 (74) 100 02/18/19 05:45 128 29 105/61 (76) 98 02/18/19 05:30 128 29 92/28 (49) 99 02/18/19 05:25 133 28 40 02/18/19 05:15 127 31 99/60 (73) 99 02/18/19 05:11 107/63 02/18/19 05:00 129 34 107/63 (78) 100 02/18/19 04:45 137 29 118/73 (88) 02/18/19 04:30 125 28 105/68 (80) 99 02/18/19 04:15 128 31 106/68 (81) 98 02/18/19 04:00 128 29 107/66 (80) 97 02/18/19 04:00 Mechanical Ventilator 02/18/19 04:00 40 02/18/19 04:00 128 02/18/19 03:45 123 28 113/70 (84) 100 02/18/19 03:30 121 25 108/64 (79) 98 02/18/19 03:15 122 27 113/68 (83) 98 02/18/19 03:11 122 26 40 02/18/19 03:00 124 29 102/71 (81) 99 02/18/19 02:45 128 29 110/65 (80) 99 02/18/19 02:30 127 29 110/72 (85) 99 02/18/19 02:15 118 26 104/62 (76) 100 02/18/19 02:00 122 27 99/60 (73) 100 02/18/19 01:45 131 29 96/65 (75) 98 02/18/19 01:31 135 24 40 02/18/19 01:30 128 30 118/72 (87) 99 02/18/19 01:15 130 29 103/62 (76) 98 02/18/19 01:00 133 27 101/68 (79) 96 02/18/19 00:45 121 26 93/62 (72) 99 02/18/19 00:30 122 26 112/61 (78) 99 02/18/19 00:15 125 27 109/67 (81) 99 02/18/19 00:00 40 02/18/19 00:00 Mechanical Ventilator 02/18/19 00:00 98.6 127 30 104/64 (77) 98 02/18/19 00:00 127 02/17/19 23:45 125 27 99/63 (75) 99 02/17/19 23:30 131 27 92/61 (71) 99 02/17/19 23:26 136 31 40 02/17/19 23:15 138 31 102/61 (75) 97 02/17/19 23:00 138 29 114/63 (80) 96 02/17/19 22:59 116/67 02/17/19 22:45 125 27 116/67 (83) 98 02/17/19 22:30 126 28 115/69 (84) 99 02/17/19 22:30 124 115/69 02/17/19 22:15 137 33 107/66 (80) 97 02/17/19 22:00 125 27 112/67 (82) 98 02/17/19 21:45 123 27 119/71 (87) 100 02/17/19 21:31 127 28 91/63 (72) 98 02/17/19 21:30 128 28 113/66 (82) 98 02/17/19 21:30 130 26 40 02/17/19 21:15 126 27 120/54 (76) 98 02/17/19 21:00 136 30 98/65 (76) 97 02/17/19 20:45 143 33 115/70 (85) 97 02/17/19 20:30 133 28 110/70 (83) 98 02/17/19 20:15 139 30 100/64 (76) 98 02/17/19 20:00 98.8 143 25 96/59 (71) 97 02/17/19 20:00 40 02/17/19 20:00 Mechanical Ventilator 02/17/19 20:00 144 02/17/19 19:45 139 29 87/58 (68) 99 02/17/19 19:30 142 29 111/68 (82) 100 02/17/19 19:30 142 29 111/68 (82) 100 02/17/19 19:15 137 26 108/67 (81) 72 02/17/19 19:00 135 28 97/70 (79) 98 02/17/19 19:00 97/48 02/17/19 19:00 133 28 40 02/17/19 18:45 133 28 103/64 (77) 98 02/17/19 18:32 141 24 112/50 (70) 97 02/17/19 18:15 127 27 97/48 (64) 98 02/17/19 18:00 106/67 02/17/19 18:00 130 25 113/71 (85) 99 02/17/19 17:45 132 28 106/67 (80) 98 02/17/19 17:30 132 28 106/63 (77) 99 7/13/19 17:15 136 27 115/82 (93) 98 02/17/19 17:08 134 32 40 02/17/19 17:00 98.9 133 26 102/68 (79) 98 02/17/19 17:00 115/82 02/17/19 16:40 99/55 02/17/19 16:30 129 28 99/55 (70) 98 02/17/19 16:00 130 26 112/69 (83) 98 02/17/19 16:00 71/48 02/17/19 16:00 125 02/17/19 16:00 40 02/17/19 16:00 Mechanical Ventilator 02/17/19 15:30 126 26 99/56 (70) 100 02/17/19 15:00 93/60 02/17/19 15:00 123 27 64/42 (49) 98 02/17/19 14:55 109 26 40 02/17/19 14:30 115 27 119/71 (87) 100 02/17/19 14:00 123/74 02/17/19 14:00 112 27 123/74 (90) 100 02/17/19 13:45 116 31 119/71 (87) 100 Intake and Output 02/17/19 02/18/19 18:59 06:59 Intake Total 3940.375 ml 2420.00 ml Output Total 1875 ml 1450 ml Balance 2065.375 ml 970.00 ml IV Total 3940.375 ml 2420.00 ml Output Urine Total 1875 ml 1450 ml # Bowel Movements 2 Laboratory Tests 02/17/19 18:24: White Blood Count 15.2H, Red Blood Count 2.36L, Hemoglobin 7.8L, Hematocrit 22.7L, Mean Corpuscular Volume 96, Mean Corpuscular Hemoglobin 32.9H, Mean Corpuscular Hemoglobin Concent 34.2, Red Cell Distribution Width 13.2, Platelet Count 44L, Mean Platelet Volume 8.8, Neutrophils (%) (Auto) , Lymphocytes (%) ( Auto) , Monocytes (%) (Auto) , Eosinophils (%) (Auto) , Basophils (%) (Auto) , Differential Total Cells Counted 100, Neutrophils % (Manual) 56, Lymphocytes % ( Manual) 13L, Monocytes % (Manual) 9, Eosinophils % (Manual) 2, Basophils % ( Manual) 1, Band Neutrophils 19H, Platelet Estimate DecreasedL, Platelet Morphology Normal, Hypochromasia 1+, Anisocytosis 1+, Lactic Acid Level 2.60H 02/18/19 05:00: White Blood Count 13.2H, Red Blood Count 2.23L, Hemoglobin 7.3L, Hematocrit 21.7L, Mean Corpuscular Volume 98, Mean Corpuscular Hemoglobin 32.9H, Mean Corpuscular Hemoglobin Concent 33.7, Red Cell Distribution Width 13.9, Platelet Count 40L, Mean Platelet Volume 9.5, Neutrophils (%) (Auto) , Lymphocytes (%) ( Auto) , Monocytes (%) (Auto) , Eosinophils (%) (Auto) , Basophils (%) (Auto) , Differential Total Cells Counted 100, Neutrophils % (Manual) 43L, Lymphocytes % (Manual) 16L, Monocytes % (Manual) 21H, Eosinophils % (Manual) 0, Basophils % ( Manual) 0, Band Neutrophils 20H, Platelet Estimate DecreasedL, Platelet Morphology , Hypochromasia 1+, Lactic Acid Level 2.80H, Giant Platelets Rare, Macrocytosis 1+, Sodium Level 149H, Potassium Level 2.9L, Chloride Level 113H, Carbon Dioxide Level 30, Anion Gap 6, Blood Urea Nitrogen 16, Creatinine 0.9, Estimat Glomerular Filtration Rate > 60, Glucose Level 164H, Uric Acid 2.0L, Calcium Level 7.3L, Phosphorus Level 1.1L, Magnesium Level 1.6L, Total Bilirubin 3.7H, Direct Bilirubin 2.8H, Aspartate Amino Transf (AST/SGOT) 153H, Alanine Aminotransferase (ALT/SGPT) 40, Alkaline Phosphatase 95, Troponin I 0.069H, C-Reactive Protein, Quantitative 9.6H, Pro-B-Type Natriuretic Peptide 1697H, Total Protein 4.4L, Albumin 1.6L, Globulin 2.8, Albumin/Globulin Ratio 0.6L, Random Gentamicin Level 2.0 02/18/19 10:22: Lactic Acid Level 2.20 Height (Feet): 5 Height (Inches): 5.00 Weight (Pounds): 130 Objective General appearance: intubated and sedated Head: Normocephalic, without obvious abnormality, atraumatic Eyes: conjunctivae/corneas clear. PERRL, EOM's intact. Fundi benign Throat: Lips, mucosa, and tongue normal. Teeth and gums normal Neck: supple, symmetrical, trachea midline, no adenopathy, thyroid: not enlarged, symmetric, no tenderness/mass/nodules, no carotid bruit and no JVD Lungs: intubated, b/l air entry, no wheezing noted Heart: regular rate and rhythm, S1, S2 normal, no murmur, click, rub or gallop Abdomen: soft, non-tender. Bowel sounds normal. No masses, no organomegaly Extremities: extremities normal, atraumatic, no cyanosis or edema Pulses: 2+ and symmetric Skin: Skin color, texture, turgor normal. No rashes or lesions Neurologic: Grossly normal Lyn Cuevas MD Feb 18, 2019 13:44
--- NOTE | 2019-02-18 14:00 | NUR ---
NURSE NOTES: Blood pressure 101/66, HR 109, SpO2 100%, and RR 26. Levophed drip running at 16mcg/min. Patient showing no sign of acute distress. Will continue to monitor blood pressure and titrate Levophed per protocol.
--- NOTE | 2019-02-18 14:29 | Diagnostic Imaging Report ---
Indication: Chest pain Technique: Continuous helical transaxial imaging of the chest, abdomen and pelvis was obtained from the thoracic inlet to the upper abdomen during rapid intravenous contrast administration. Arterial phase of enhancement obtained. Coronal 2-D reformats were also obtained and maximum intensity projection images in multiple planes. Study obtained in a Siemens sensation [address] Automatic Exposure Control was utilized. Total Dose length Product (DLP): 1292.[address] Dose Index Volume (CTDIvol): 13.02,13.21 mGy Comparison: None Findings: CTA CHEST: There is considerable artifact due to motion especially at the lung bases. The central pulmonary artery is well opacified. Lobar and segmental vessels opacify normally as visualized. There is extensive consolidation involving the posterior aspects of both lower lobes suspicious for pneumonia. Correlate clinically. Trace bilateral pleural effusions are present. Endotracheal tube is present in good position above the kenyon. NG tube is also in good position with the tip well situated in the stomach lumen. The visualized part of the upper abdomen shows low-attenuation of the liver trace ascites and gallstones. There may be gallbladder wall thickening as well. CT abdomen pelvis: A venous phase examination of the abdomen and pelvis was also performed. There is generalized prominence with mild dilatation, wall enhancement and possible wall thickening involving several loops of small bowel as well as the colon. The colon is relatively nondistended. Small right inguinal hernia containing fat demonstrated. There is a small amount of ascites. There is no evidence of abscess. Kidneys enhance normally. There is no hydronephrosis. There is some prominence of the adrenal glands bilaterally. The pancreas is unremarkable. The spleen is normal in size. There is breathing motion which limits evaluation. The aorta was not evaluated during arterial phase but does enhance well and shows no evidence of dissection or aneurysm. There is no evidence of stenosis of the celiac artery or SMA or either renal artery but this is not comprehensively evaluated. IMPRESSION: No evidence of pulmonary embolus, aortic dissection or aneurysm. Posterior basilar consolidation suspicious for pneumonia. Correlate clinically. Trace bilateral pleural effusions. Possible enterocolitis as described above. Please correlate clinically. Mild ascites Fatty liver Cholelithiasis with wall thickening. Cholecystitis not excluded. Small right inguinal hernia containing fat Extensive breathing motion artifact limiting evaluation. [facility] has communicated the preliminary report (only regarding the CTA chest) to the referring physician and ordering physician.. Their findings are largely concordant with this report. The CT scanner at [facility] is accredited by the [employer] and the scans are performed using dose optimization techniques as appropriate to a performed exam including Automatic Exposure control.
--- NOTE | 2019-02-18 14:40 | NUR ---
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 LEUKOCYTOSIS . SEPTIC SHOCK VS: BP 98/61, P 118, T 98.5, RR 31, SpO2 99 WBC 13.2, RBC 2.23, H&H 7.3/21.7, Plt.Count 40, Na 149, K 2.9, Total Bilirubin 3.7, AST 153 IS:VANCOMYCIN 110ml IVPB POTASSIUM PHOSPHATE 285ml IV POTASSIUM CHLORIDE 100ml IVPB GENTAMICIN 117.5ml IVPB D5/ELECTROLYTES x1L IV PROTONIX 40mg IVP BANANA BAG 1,014.2ml IV THIAMINE 56ml IVPB NOREPINEPHRINE 508ml IV ZOSYN 110ml IVPB PLAN: MONITOR H&H NPO EGD IN AM TRANSFUSE ONE UNIT PRBC & FFP VIT K BANANA BAG ICU STATUS
--- NOTE | 2019-02-18 15:49 | General Progress Note ---
Assessment/Plan Assessment/Plan: 54 year old male with pMH of seizure disorder and etoh abuse admitted for seizures 2/2 non-compliance #severe septic shock likely 2/2 UTI #Gram negative bacteremia #Acute respiratory failure -Vanc and Zosyn - gentamicin -ID consult appreciated -f/u cultures -cont ICU care -intubated and sedated -vent management per pulmonary -wean as tolerated -Titrate pressors to goal map >65 - off vasopressin, levo titrated down -abg prn -pending CT chest/abd/pel #Lactic acidosis - improving -2/2 severe shock/ poss abd source/ seizures -CTM -Fluid boluses ordered -Cont mIVF -Repeat in AM - increased, bolused, pending repeat #Coagulopathy -likely 2/2 hepatic injury 2/2 shock #Coffee ground emesis likely in setting of GI bleed -H/H trending down - transfuse 1 unit PRBC today -GI consult appreciated -Plan for EGD once stable -cont NPO -surgery consult appreciated #Seizures 2/2 noncomplaint with AED -s/p phenytoin load in ed -Cont Phenytoin -Neurology consult appreciated -pendign EEG -Ativan PRN for seizures -NPO -Seizure precautions #Hypokalemia #hypophos #Hypomagnesemia -repleted -CTM Code: Basin Operator of note does not reflect time of encounter Subjective Date patient seen: Feb 18, 2019 Allergies: Coded Allergies: No Known Allergies (Unverified , 02/10/15) Subjective Pt remains intubated and sedated, lactic acid trending down, Hb downtrending, plan to transfuse 1 unit PRBC today, electrolytes repleted, Objective Last 24 Hour Vital Signs Date Time Temp Pulse Resp B/P (MAP) Pulse Ox O2 Delivery O2 Flow Rate FiO2 02/18/19 15:14 109 30 40 02/18/19 13:18 114 30 40 02/18/19 13:04 98/61 02/18/19 12:00 Mechanical Ventilator 02/18/19 12:00 40 02/18/19 10:43 117 32 40 02/18/19 09:01 118 32 40 02/18/19 08:00 40 02/18/19 08:00 Mechanical Ventilator 02/18/19 06:44 129 30 40 02/18/19 06:00 121 28 100/61 (74) 100 02/18/19 05:45 128 29 105/61 (76) 98 02/18/19 05:30 128 29 92/28 (49) 99 02/18/19 05:25 133 28 40 02/18/19 05:15 127 31 99/60 (73) 99 02/18/19 05:11 107/63 02/18/19 05:00 129 34 107/63 (78) 100 02/18/19 04:45 137 29 118/73 (88) 02/18/19 04:30 125 28 105/68 (80) 99 02/18/19 04:15 128 31 106/68 (81) 98 02/18/19 04:00 128 29 107/66 (80) 97 02/18/19 04:00 Mechanical Ventilator 02/18/19 04:00 40 02/18/19 04:00 128 02/18/19 03:45 123 28 113/70 (84) 100 02/18/19 03:30 121 25 108/64 (79) 98 02/18/19 03:15 122 27 113/68 (83) 98 02/18/19 03:11 122 26 40 02/18/19 03:00 124 29 102/71 (81) 99 02/18/19 02:45 128 29 110/65 (80) 99 02/18/19 02:30 127 29 110/72 (85) 99 02/18/19 02:15 118 26 104/62 (76) 100 02/18/19 02:00 122 27 99/60 (73) 100 02/18/19 01:45 131 29 96/65 (75) 98 02/18/19 01:31 135 24 40 02/18/19 01:30 128 30 118/72 (87) 99 02/18/19 01:15 130 29 103/62 (76) 98 02/18/19 01:00 133 27 101/68 (79) 96 02/18/19 00:45 121 26 93/62 (72) 99 02/18/19 00:30 122 26 112/61 (78) 99 02/18/19 00:15 125 27 109/67 (81) 99 02/18/19 00:00 40 02/18/19 00:00 Mechanical Ventilator 02/18/19 00:00 98.6 127 30 104/64 (77) 98 02/18/19 00:00 127 02/17/19 23:45 125 27 99/63 (75) 99 02/17/19 23:30 131 27 92/61 (71) 99 02/17/19 23:26 136 31 40 02/17/19 23:15 138 31 102/61 (75) 97 02/17/19 23:00 138 29 114/63 (80) 96 02/17/19 22:59 116/67 02/17/19 22:45 125 27 116/67 (83) 98 02/17/19 22:30 126 28 115/69 (84) 99 02/17/19 22:30 124 115/69 02/17/19 22:15 137 33 107/66 (80) 97 02/17/19 22:00 125 27 112/67 (82) 98 02/17/19 21:45 123 27 119/71 (87) 100 02/17/19 21:31 127 28 91/63 (72) 98 02/17/19 21:30 128 28 113/66 (82) 98 02/17/19 21:30 130 26 40 02/17/19 21:15 126 27 120/54 (76) 98 02/17/19 21:00 136 30 98/65 (76) 97 02/17/19 20:45 143 33 115/70 (85) 97 02/17/19 20:30 133 28 110/70 (83) 98 02/17/19 20:15 139 30 100/64 (76) 98 02/17/19 20:00 98.8 143 25 96/59 (71) 97 02/17/19 20:00 40 02/17/19 20:00 Mechanical Ventilator 02/17/19 20:00 144 02/17/19 19:45 139 29 87/58 (68) 99 02/17/19 19:30 142 29 111/68 (82) 100 02/17/19 19:30 142 29 111/68 (82) 100 02/17/19 19:15 137 26 108/67 (81) 72 02/17/19 19:00 135 28 97/70 (79) 98 02/17/19 19:00 97/48 02/17/19 19:00 133 28 40 02/17/19 18:45 133 28 103/64 (77) 98 02/17/19 18:32 141 24 112/50 (70) 97 02/17/19 18:15 127 27 97/48 (64) 98 02/17/19 18:00 106/67 02/17/19 18:00 130 25 113/71 (85) 99 02/17/19 17:45 132 28 106/67 (80) 98 02/17/19 17:30 132 28 106/63 (77) 99 02/17/19 17:15 136 27 115/82 (93) 98 02/17/19 17:08 134 32 40 02/17/19 17:00 98.9 133 26 102/68 (79) 98 02/17/19 17:00 115/82 02/17/19 16:40 99/55 02/17/19 16:30 129 28 99/55 (70) 98 02/17/19 16:00 130 26 112/69 (83) 98 02/17/19 16:00 71/48 02/17/19 16:00 125 02/17/19 16:00 40 02/17/19 16:00 Mechanical Ventilator Intake and Output 02/17/19 02/18/19 18:59 06:59 Intake Total 3940.375 ml 2420.00 ml Output Total 1875 ml 1450 ml Balance 2065.375 ml 970.00 ml IV Total 3940.375 ml 2420.00 ml Output Urine Total 1875 ml 1450 ml # Bowel Movements 2 Laboratory Tests 02/17/19 18:24: White Blood Count 15.2H, Red Blood Count 2.36L, Hemoglobin 7.8L, Hematocrit 22.7L, Mean Corpuscular Volume 96, Mean Corpuscular Hemoglobin 32.9H, Mean Corpuscular Hemoglobin Concent 34.2, Red Cell Distribution Width 13.2, Platelet Count 44L, Mean Platelet Volume 8.8, Neutrophils (%) (Auto) , Lymphocytes (%) ( Auto) , Monocytes (%) (Auto) , Eosinophils (%) (Auto) , Basophils (%) (Auto) , Differential Total Cells Counted 100, Neutrophils % (Manual) 56, Lymphocytes % ( Manual) 13L, Monocytes % (Manual) 9, Eosinophils % (Manual) 2, Basophils % ( Manual) 1, Band Neutrophils 19H, Platelet Estimate DecreasedL, Platelet Morphology Normal, Hypochromasia 1+, Anisocytosis 1+, Lactic Acid Level 2.60H 02/18/19 05:00: White Blood Count 13.2H, Red Blood Count 2.23L, Hemoglobin 7.3L, Hematocrit 21.7L, Mean Corpuscular Volume 98, Mean Corpuscular Hemoglobin 32.9H, Mean Corpuscular Hemoglobin Concent 33.7, Red Cell Distribution Width 13.9, Platelet Count 40L, Mean Platelet Volume 9.5, Neutrophils (%) (Auto) , Lymphocytes (%) ( Auto) , Monocytes (%) (Auto) , Eosinophils (%) (Auto) , Basophils (%) (Auto) , Differential Total Cells Counted 100, Neutrophils % (Manual) 43L, Lymphocytes % (Manual) 16L, Monocytes % (Manual) 21H, Eosinophils % (Manual) 0, Basophils % ( Manual) 0, Band Neutrophils 20H, Platelet Estimate DecreasedL, Platelet Morphology , Hypochromasia 1+, Lactic Acid Level 2.80H, Giant Platelets Rare, Macrocytosis 1+, Sodium Level 149H, Potassium Level 2.9L, Chloride Level 113H, Carbon Dioxide Level 30, Anion Gap 6, Blood Urea Nitrogen 16, Creatinine 0.9, Estimat Glomerular Filtration Rate > 60, Glucose Level 164H, Uric Acid 2.0L, Calcium Level 7.3L, Phosphorus Level 1.1L, Magnesium Level 1.6L, Total Bilirubin 3.7H, Direct Bilirubin 2.8H, Aspartate Amino Transf (AST/SGOT) 153H, Alanine Aminotransferase (ALT/SGPT) 40, Alkaline Phosphatase 95, Troponin I 0.069H, C-Reactive Protein, Quantitative 9.6H, Pro-B-Type Natriuretic Peptide 1697H, Total Protein 4.4L, Albumin 1.6L, Globulin 2.8, Albumin/Globulin Ratio 0.6L, Random Gentamicin Level 2.0 02/18/19 10:22: Lactic Acid Level 2.20 Height (Feet): 5 Height (Inches): 5.00 Weight (Pounds): 170 Objective General appearance: intubated and sedated Head: Normocephalic, without obvious abnormality, atraumatic Eyes: conjunctivae/corneas clear. PERRL, EOM's intact. Fundi benign Throat: Lips, mucosa, and tongue normal. Teeth and gums normal Neck: supple, symmetrical, trachea midline, no adenopathy, thyroid: not enlarged, symmetric, no tenderness/mass/nodules, no carotid bruit and no JVD Lungs: intubated, b/l air entry, no wheezing noted Heart: regular rate and rhythm, S1, S2 normal, no murmur, click, rub or gallop Abdomen: soft, non-tender. Bowel sounds normal. No masses, no organomegaly Extremities: extremities normal, atraumatic, no cyanosis or edema Pulses: 2+ and symmetric Skin: Skin color, texture, turgor normal. No rashes or lesions Neurologic: Grossly normal Lyn Cuevas MD Feb 18, 2019 15:49
--- NOTE | 2019-02-18 16:00 | NUR ---
NURSE NOTES: Patient blood pressure 104/69, HR 106, temp 98.8, O2 sat 100%, and RR 26. Patient still sightly restless at this time and asking for something to drink. Patient remains on bilateral soft wrist restraint due to patient witnessed attempting to remove ETT/OGT. Ventilator setting remains AC 26, tidal volume 500, FiO2 40%, and PEEP 5. Patient remains NPO with yellow/pink with blood clots gastric secretion. Patient has oral gastric tube that is patent and verified with auscultation at this time. Patient had one tarry black stool. Patient has some excoriation on the scrotum from frequent bowel movements. Aguilar has pink, blood tinged urine with bloody sediment. Left femoral triple lumen catheter patent, asymptomatic, and dressing intact. Levophed drip running at 16 mcg/min. Will monitor blood pressure and titrate drips per protocol. Patient running D5 1/2NS with 20mEq KCl at 100mL/hr and banana bag at 125mL/hr. Patient bed in low position with bed alarm on and call light in reach at this time. Addendum: 02/18/19 at 1840 by Debby Escobar RN Patient receiving one PRBC at this time.
--- NOTE | 2019-02-18 17:07 | Neurology Progress Note ---
Interim History Interim History ROS Limited/Unobtainable: Yes Interim History remains on atb, alert, following Objective Physical Exam Last Vital Signs Date Time Temp Pulse Resp B/P (MAP) Pulse Ox O2 Delivery O2 Flow Rate FiO2 02/18/19 16:00 40 02/18/19 16:00 Mechanical Ventilator 02/18/19 16:00 104/69 02/18/19 15:14 109 30 02/18/19 11:15 100 02/18/19 10:00 99.1 02/14/19 15:15 2.0 Laboratory Tests Test 02/17/19 18:24 02/18/19 05:00 02/18/19 10:22 White Blood Count 15.2 K/UL (4.8-10.8) H 13.2 K/UL (4.8-10.8) H Red Blood Count 2.36 M/UL (4.70-6.10) L 2.23 M/UL (4.70-6.10) L Hemoglobin 7.8 G/DL (14.2-18.0) L 7.3 G/DL (14.2-18.0) L Hematocrit 22.7 % (42.0-52.0) L 21.7 % (42.0-52.0) L Mean Corpuscular Volume 96 FL (80-99) 98 FL (80-99) Mean Corpuscular Hemoglobin 32.9 PG (27.0-31.0) H 32.9 PG (27.0-31.0) H Mean Corpuscular Hemoglobin Concent 34.2 G/DL (32.0-36.0) 33.7 G/DL (32.0-36.0) Red Cell Distribution Width 13.2 % (11.6-14.8) 13.9 % (11.6-14.8) Platelet Count 44 K/UL (150-450) L 40 K/UL (150-450) L Mean Platelet Volume 8.8 FL (6.5-10.1) 9.5 FL (6.5-10.1) Neutrophils (%) (Auto) % (45.0-75.0) % (45.0-75.0) Lymphocytes (%) (Auto) % (20.0-45.0) % (20.0-45.0) Monocytes (%) (Auto) % (1.0-10.0) % (1.0-10.0) Eosinophils (%) (Auto) % (0.0-3.0) % (0.0-3.0) Basophils (%) (Auto) % (0.0-2.0) % (0.0-2.0) Differential Total Cells Counted 100 100 Neutrophils % (Manual) 56 % (45-75) 43 % (45-75) L Lymphocytes % (Manual) 13 % (20-45) L 16 % (20-45) L Monocytes % (Manual) 9 % (1-10) 21 % (1-10) H Eosinophils % (Manual) 2 % (0-3) 0 % (0-3) Basophils % (Manual) 1 % (0-2) 0 % (0-2) Band Neutrophils 19 % (0-8) H 20 % (0-8) H Platelet Estimate Decreased L Decreased L Platelet Morphology Normal Hypochromasia 1+ 1+ Anisocytosis 1+ Lactic Acid Level 2.60 mmol/L (0.4-2.0) H 2.80 mmol/L (0.4-2.0) H 2.20 mmol/L (0.66-2.22) Giant Platelets Rare Macrocytosis 1+ Sodium Level 149 MMOL/L (136-145) H Potassium Level 2.9 MMOL/L (3.5-5.1) L Chloride Level 113 MMOL/L (98-107) H Carbon Dioxide Level 30 MMOL/L (21-32) Anion Gap 6 mmol/L (5-15) Blood Urea Nitrogen 16 mg/dL (7-18) Creatinine 0.9 MG/DL (0.55-1.30) Estimat Glomerular Filtration Rate > 60 mL/min (>60) Glucose Level 164 MG/DL (74-106) H Uric Acid 2.0 MG/DL (2.6-7.2) L Calcium Level 7.3 MG/DL (8.5-10.1) L Phosphorus Level 1.1 MG/DL (2.5-4.9) L Magnesium Level 1.6 MG/DL (1.8-2.4) L Total Bilirubin 3.7 MG/DL (0.2-1.0) H Direct Bilirubin 2.8 MG/DL (0.0-0.3) H Aspartate Amino Transf (AST/SGOT) 153 U/L (15-37) H Alanine Aminotransferase (ALT/SGPT) 40 U/L (12-78) Alkaline Phosphatase 95 U/L (46-116) Troponin I 0.069 ng/mL (0.000-0.056) C-Reactive Protein, Quantitative 9.6 mg/dL (0.00-0.90) H Pro-B-Type Natriuretic Peptide 1697 pg/mL (0-125) H Total Protein 4.4 G/DL (6.4-8.2) L Albumin 1.6 G/DL (3.4-5.0) L Globulin 2.8 g/dL Albumin/Globulin Ratio 0.6 (1.0-2.7) L Random Gentamicin Level 2.0 ug/mL Head: normocophalic Neck: no rigidity EENT: benign Neurologic Exam Cranial Nerves III, IV, : PERRLA Motor System: no involuntary movement Objective pupils 3 mm reactive no nuchal rigidity minimal withdrawal intubated cc time 35 min Impression/Recommendations Problems: (1) Episode of confusion (2) Tachycardia (3) Fever (4) Diarrhea (5) Altered mental status (6) Alcohol withdrawal seizure (7) Oral thrush (8) Electrolyte and fluid disorder (9) Aspiration pneumonia (10) Alcohol withdrawal seizure (11) Non-compliance (12) Seizure disorder Diagnostic Impression seizure due to non compliance septic shock with bacteremia broad sectrum atb sp intubation dilantin 100 mg tid Poor prognosis Myron Estrella MD Feb 18, 2019 17:07
[2019-02-18] MEDS ORDERED: Tubing IV Secondary IV ONE (17:12)
--- NOTE | 2019-02-18 17:32 | NUR ---
NURSE NOTES: One PRBC given. Patient blood pressure 118/79, temp 98.8, and HR 102. Patient showing no sign of acute distress. No transfusion reaction noted. Addendum: 02/18/19 at 1843 by Debby Escobar RN Patient's sister was not answering the phone after several attempts to contact her. Emergency MD consent obtained from from Dr Plummer at 1313. Sister called back at 1730 and was given update. She reported that her phone was turned off, but she will keep it turned on. Patient's girlfriend also called at 1600 and was given an update.
[2019-02-18] MEDS: Gentamicin inj 300 MG in NS 110 ML IVPB SCH (17:39)
--- NOTE | 2019-02-18 19:10 | NUR ---
HAND-OFF: Report given to ESHA Hunter. Patient blood pressure 109/70, HR 106, SpO2 100%, and RR 26. Patient running levophed at 16mcg/min. Patient running fresh frozen plasma. Endorsed to complete tranfusion and follow up. Patient bed in low position with bed alarm on. Patient has order for EGD and PICC tomorrow. Endorsed to follow up.
--- NOTE | 2019-02-18 19:30 | NUR ---
NURSE NOTES: Received report from ESHA Guardado. Patient in bed AO X1, nonverbal, eyes open spontaneously, currently intubated ETT8, 24LL, AC26, VT 500, PEEP 5, O2 sat at 100% with 40% FiO2. NPO at this time. Continuous cardiac monitoring per protocol and noted tachycardia. BP109/70, currently on Levophed 16mcg/min. Also D5 1/2NS with 20meq KCl running at 100ml/hr via Left femorla TLC. Aguilar 18fr draining small amount of dark/ reddish urine noted. Safety and seizure precaution in place; siderails X3 up and padded, call light within reach, bed in lowest position and free from clutter, brakes and alarm on at all times, and suction equipment at bedside. Bilateral soft wrist restraints noted, no adverse reaction. Needs and wants anticipated and attended, will continue plan of care and monitor for any changes noted.
--- NOTE | 2019-02-18 19:43 | Cardiac Electrophysiology PN ---
Assessment/Plan Assessment/Plan 1. Sinus tachycardia up to 170s. No evidence of acute myocardial infarction . This is likely due to sepsis and anemia and alcohol withdrawal. Echo Nl EF 60% 2. Septic shock and severe Lactic acidosis on Levophed and broad-spectrum IV antibiotics. 3. Troponin leak. Type 2. Repeat level 0.16 4. Respiratory failure on the vent. 5. ETOH withdrawal 6. Seizures with noncompliance. CONSTANCE RN Extubation pending in m Subjective Subjective In ICU on Levophed and off Vasopressin, intubated on the Vent. In Sinus tach. Objective Last 24 Hour Vital Signs Date Time Temp Pulse Resp B/P (MAP) Pulse Ox O2 Delivery O2 Flow Rate FiO2 02/18/19 19:28 106 32 40 02/18/19 17:25 107 30 40 02/18/19 16:00 101 02/18/19 16:00 40 02/18/19 16:00 Mechanical Ventilator 02/18/19 16:00 104/69 02/18/19 15:14 109 30 40 02/18/19 15:00 112/69 02/18/19 14:00 101/66 02/18/19 13:18 114 30 40 02/18/19 13:04 98/61 02/18/19 13:00 101/63 02/18/19 12:00 Mechanical Ventilator 02/18/19 12:00 107 02/18/19 12:00 98/61 02/18/19 12:00 40 02/18/19 11:15 113 28 107/65 (79) 100 02/18/19 11:00 107/65 02/18/19 11:00 112 28 107/66 (80) 100 02/18/19 10:45 116 23 105/68 (80) 99 02/18/19 10:43 117 32 40 02/18/19 10:30 118 30 100/63 (75) 99 02/18/19 10:15 125 30 108/62 (77) 98 02/18/19 10:00 99.1 125 24 102/60 (74) 98 02/18/19 10:00 108/62 02/18/19 09:45 127 33 103/64 (77) 99 02/18/19 09:30 127 31 104/62 (76) 99 02/18/19 09:15 118 29 99/63 (75) 100 02/18/19 09:01 118 32 40 02/18/19 09:00 122 26 104/64 (77) 99 02/18/19 09:00 99/63 02/18/19 08:45 120 25 101/62 (75) 100 02/18/19 08:30 116 28 101/62 (75) 100 02/18/19 08:15 122 29 95/65 (75) 100 02/18/19 08:00 40 02/18/19 08:00 Mechanical Ventilator 02/18/19 08:00 124 02/18/19 08:00 101/62 02/18/19 08:00 100.0 131 27 89/66 (74) 97 02/18/19 07:45 124 32 95/56 (69) 98 02/18/19 07:30 121 27 108/57 (74) 100 02/18/19 07:15 126 30 101/62 (75) 99 02/18/19 07:00 123 26 102/61 (75) 99 02/18/19 06:44 129 30 40 02/18/19 06:00 121 28 100/61 (74) 100 02/18/19 05:45 128 29 105/61 (76) 98 02/18/19 05:30 128 29 92/28 (49) 99 02/18/19 05:25 133 28 40 02/18/19 05:15 127 31 99/60 (73) 99 02/18/19 05:11 107/63 02/18/19 05:00 129 34 107/63 (78) 100 02/18/19 04:45 137 29 118/73 (88) 02/18/19 04:30 125 28 105/68 (80) 99 02/18/19 04:15 128 31 106/68 (81) 98 02/18/19 04:00 128 29 107/66 (80) 97 02/18/19 04:00 Mechanical Ventilator 02/18/19 04:00 40 02/18/19 04:00 128 02/18/19 03:45 123 28 113/70 (84) 100 02/18/19 03:30 121 25 108/64 (79) 98 02/18/19 03:15 122 27 113/68 (83) 98 02/18/19 03:11 122 26 40 02/18/19 03:00 124 29 102/71 (81) 99 02/18/19 02:45 128 29 110/65 (80) 99 02/18/19 02:30 127 29 110/72 (85) 99 02/18/19 02:15 118 26 104/62 (76) 100 02/18/19 02:00 122 27 99/60 (73) 100 02/18/19 01:45 131 29 96/65 (75) 98 02/18/19 01:31 135 24 40 02/18/19 01:30 128 30 118/72 (87) 99 02/18/19 01:15 130 29 103/62 (76) 98 02/18/19 01:00 133 27 101/68 (79) 96 02/18/19 00:45 121 26 93/62 (72) 99 02/18/19 00:30 122 26 112/61 (78) 99 02/18/19 00:15 125 27 109/67 (81) 99 02/18/19 00:00 40 02/18/19 00:00 Mechanical Ventilator 02/18/19 00:00 98.6 127 30 104/64 (77) 98 02/18/19 00:00 127 02/17/19 23:45 125 27 99/63 (75) 99 02/17/19 23:30 131 27 92/61 (71) 99 02/17/19 23:26 136 31 40 02/17/19 23:15 138 31 102/61 (75) 97 02/17/19 23:00 138 29 114/63 (80) 96 02/17/19 22:59 116/67 02/17/19 22:45 125 27 116/67 (83) 98 02/17/19 22:30 126 28 115/69 (84) 99 02/17/19 22:30 124 115/69 02/17/19 22:15 137 33 107/66 (80) 97 02/17/19 22:00 125 27 112/67 (82) 98 02/17/19 21:45 123 27 119/71 (87) 100 02/17/19 21:31 127 28 91/63 (72) 98 02/17/19 21:30 128 28 113/66 (82) 98 02/17/19 21:30 130 26 40 02/17/19 21:15 126 27 120/54 (76) 98 02/17/19 21:00 136 30 98/65 (76) 97 02/17/19 20:45 143 33 115/70 (85) 97 02/17/19 20:30 133 28 110/70 (83) 98 02/17/19 20:15 139 30 100/64 (76) 98 02/17/19 20:00 98.8 143 25 96/59 (71) 97 02/17/19 20:00 40 02/17/19 20:00 Mechanical Ventilator 02/17/19 20:00 144 02/17/19 19:45 139 29 87/58 (68) 99 Intake and Output 02/17/19 02/18/19 19:00 07:00 Intake Total 3952.855 ml 2334.40 ml Output Total 1925 ml 1440 ml Balance 2027.855 ml 894.40 ml IV Total 3952.855 ml 2334.40 ml Output Urine Total 1925 ml 1440 ml # Bowel Movements 2 Laboratory Tests Test 02/18/19 05:00 02/18/19 10:22 White Blood Count 13.2 K/UL (4.8-10.8) H Red Blood Count 2.23 M/UL (4.70-6.10) L Hemoglobin 7.3 G/DL (14.2-18.0) L Hematocrit 21.7 % (42.0-52.0) L Mean Corpuscular Volume 98 FL (80-99) Mean Corpuscular Hemoglobin 32.9 PG (27.0-31.0) H Mean Corpuscular Hemoglobin Concent 33.7 G/DL (32.0-36.0) Red Cell Distribution Width 13.9 % (11.6-14.8) Platelet Count 40 K/UL (150-450) L Mean Platelet Volume 9.5 FL (6.5-10.1) Neutrophils (%) (Auto) % (45.0-75.0) Lymphocytes (%) (Auto) % (20.0-45.0) Monocytes (%) (Auto) % (1.0-10.0) Eosinophils (%) (Auto) % (0.0-3.0) Basophils (%) (Auto) % (0.0-2.0) Differential Total Cells Counted 100 Neutrophils % (Manual) 43 % (45-75) L Lymphocytes % (Manual) 16 % (20-45) L Monocytes % (Manual) 21 % (1-10) H Eosinophils % (Manual) 0 % (0-3) Basophils % (Manual) 0 % (0-2) Band Neutrophils 20 % (0-8) H Platelet Estimate Decreased L Platelet Morphology Giant Platelets Rare Hypochromasia 1+ Macrocytosis 1+ Sodium Level 149 MMOL/L (136-145) H Potassium Level 2.9 MMOL/L (3.5-5.1) L Chloride Level 113 MMOL/L (98-107) H Carbon Dioxide Level 30 MMOL/L (21-32) Anion Gap 6 mmol/L (5-15) Blood Urea Nitrogen 16 mg/dL (7-18) Creatinine 0.9 MG/DL (0.55-1.30) Estimat Glomerular Filtration Rate > 60 mL/min (>60) Glucose Level 164 MG/DL (74-106) H Lactic Acid Level 2.80 mmol/L (0.4-2.0) H 2.20 mmol/L (0.66-2.22) Uric Acid 2.0 MG/DL (2.6-7.2) L Calcium Level 7.3 MG/DL (8.5-10.1) L Phosphorus Level 1.1 MG/DL (2.5-4.9) L Magnesium Level 1.6 MG/DL (1.8-2.4) L Total Bilirubin 3.7 MG/DL (0.2-1.0) H Direct Bilirubin 2.8 MG/DL (0.0-0.3) H Aspartate Amino Transf (AST/SGOT) 153 U/L (15-37) H Alanine Aminotransferase (ALT/SGPT) 40 U/L (12-78) Alkaline Phosphatase 95 U/L (46-116) Troponin I 0.069 ng/mL (0.000-0.056) C-Reactive Protein, Quantitative 9.6 mg/dL (0.00-0.90) H Pro-B-Type Natriuretic Peptide 1697 pg/mL (0-125) H Total Protein 4.4 G/DL (6.4-8.2) L Albumin 1.6 G/DL (3.4-5.0) L Globulin 2.8 g/dL Albumin/Globulin Ratio 0.6 (1.0-2.7) L Random Gentamicin Level 2.0 ug/mL Microbiology Date/Time Source Procedure Growth Status 02/17/19 06:30 Blood Blood Culture - Preliminary Gram Negative Isac Resulted 02/17/19 06:25 Blood Blood Culture - Preliminary Gram Negative Isac Resulted 02/16/19 19:30 Sputum Gram Stain - Final Resulted 02/16/19 19:30 Sputum Sputum Culture - Preliminary NO GROWTH AFTER 24 HOURS Resulted Objective HEAD AND NECK: Shows no JVD.Orally intubated with OG tube LUNGS: Decreased breath sounds. CARDIOVASCULAR: Regular S1 and S2 with no gallop or murmur. ABDOMEN: Soft. EXTREMITIES: No pitting edema. Fidencio Trevino MD Feb 18, 2019 19:43
[2019-02-18] MEDS: Dyna-Hex 2% Top Sol 2oz TOPIC SCH (20:35)
--- NOTE | 2019-02-18 22:00 | NUR ---
NURSE NOTES: Pt's resting in bed, alert, in no acute distress. VS stable, titrating down the LEvophed, currently running at 6mcg/min. Will continue to monitor.
[2019-02-18] MEDS: Vancomycin 1gm/D5W 275ml IVPB SCH ×2 (22:07)
[2019-02-18] MEDS: Phenylephrine 50 MG in D5W 245 ML IV SCH (22:30)
[2019-02-19] VITALS (33 sets, daily range): BP systolic 84–114; BP diastolic 48–73
--- NOTE | 2019-02-19 | NUR ---
NURSE NOTES: Pt's resting in bed, in no acute distress. VS stable. Will continue to monitor.
--- NOTE | 2019-02-19 02:00 | NUR ---
NURSE NOTES: Pt's resting in bed, in no acute distress. VS stable. Will continue to monitor.
--- NOTE | 2019-02-19 04:00 | NUR ---
NURSE NOTES: Pt's resting in bed, in no acute distress. VS stable. Will continue to monitor.
[2019-02-19 05:36] LABS: HEMATOCRIT 23.4 % (42.0-52.0); MEAN CORPUSCULAR VOLUME 96 FL (80-99); PLATELET COUNT 40 K/UL (150-450); RED BLOOD COUNT 2.45 M/UL (4.70-6.10); RED CELL DISTRIBUTION WIDTH 14.7 % (11.6-14.8); WHITE BLOOD COUNT 14.7 K/UL (4.8-10.8)
[2019-02-19 05:42] LABS: INR 1.3 (0.9-1.1)
--- NOTE | 2019-02-19 06:00 | NUR ---
NURSE NOTES: Pt's resting in bed, in no acute distress. VS stable. Will continue to monitor.
[2019-02-19] MEDS: Piperacillin/Tazobactam 3.375 GM in NS 110 ML IVPB SCH ×3 (06:08→22:58)
[2019-02-19] MEDS: D5 1/2NS w/KCl 20mEq 1,000 ML IV SCH ×3 (06:24→23:02)
[2019-02-19 06:30] LABS: PHOSPHORUS 1.7 MG/DL (2.5-4.9)
[2019-02-19 06:32] LABS: ALANINE AMINOTRANSFERASE 59 U/L (12-78); ALBUMIN 1.7 G/DL (3.4-5.0); ALBUMIN/GLOBULIN RATIO 0.7 (1.0-2.7); ALKALINE PHOSPHATASE 123 U/L (46-116); ANION GAP 9 mmol/L (5-15); ASPARTATE AMINO TRANSFERASE 197 U/L (15-37); BILIRUBIN,TOTAL 4.1 MG/DL (0.2-1.0); BLOOD UREA NITROGEN 8 mg/dL (7-18); CARBON DIOXIDE 26 MMOL/L (21-32); CHLORIDE 107 MMOL/L (98-107); CREATININE 0.8 MG/DL (0.55-1.30); SODIUM 141 MMOL/L (136-145)
--- NOTE | 2019-02-19 06:39 | NUR ---
RESPIRATORY NOTE: Recieved pt on [id number] peep of 5. Pt is awake, alert. Pt is orally intubated with ETT 7.5 @ 24cm lips line, secured by anchor fast. Juan Carlos Rhonchi B/S heard upon auscultation, suctioned small amount of thick tang secretions without incidents. Oral care done. Alarms are set ad audible, vent is plugged into the red outlet, ambu bag at bedside. Vent circuits and sxn tubing are patent and out of way. Pt is resting in bed, no SOB or resp distress noted at this time. Will continue to monitor pt.
--- NOTE | 2019-02-19 07:20 | NUR ---
HAND-OFF: Report given to ESHA Manjarrez.
[2019-02-19 07:24] LABS: POTASSIUM 2.7 MMOL/L (3.5-5.1)
[2019-02-19 07:25] LABS: BILIRUBIN,DIRECT 3.3 MG/DL (0.0-0.3)
--- NOTE | 2019-02-19 08:08 | NUR ---
NURSE NOTES: Received patient from ESHA Hunter. Patient afebrile with no apparent acute distress. ST 105 on the monitor.Patient on bilateral soft wrist restraint observed removing device, no skin impairment noted at this time.Side rails pads with no episode seizure at this time. OGT in place clamp with placement intact.ETT 8/24cm lip line AC 26 VT500, FiO2 400% Peep 5. NPO at this time for possible EGD due to episode of coffee ground and dark bloody stools.RF/TLC running Levophed drip at 6mcg/min. Right forearm 20 gauge patent with no s/s infiltrations running D5 1/2NS with 20mEq at 100mL/hr and banana bag at 125mL/hr. Aguilar catheter care in place draining reddish urine with no apparent sediments.Call light in reach at this time.Will continue to monitor.
[2019-02-19] MEDS: Vasopressin 100 UNITS in NS 95 ML IV SCH (08:15)
[2019-02-19] MEDS: Pantoprazole Inj IVP SCH ×2 (08:37→20:35)
[2019-02-19] MEDS: Docusate 100mg cap ORAL SCH ×3 (08:37→17:21)
[2019-02-19] MEDS: Folic Acid 1 MG, Magnesium Sulfate 2,000 MG, Multivitamin - 12 Injection 10 ML in Sodiu... IV SCH (08:49)
[2019-02-19] MEDS: levETIRAcetam 500mg/NS100ml 100 ML IVPB SCH ×2 (08:49→20:36)
[2019-02-19] MEDS: Thiamine 100mg in D5W 55ml IVPB SCH (08:50)
--- NOTE | 2019-02-19 09:08 | NUR ---
RESPIRATORY NOTE: Placed pt on CPAP PS 10 per weaning protocol. Pt didn't pass the weaning criteria and went to distress: RSBI 214, RR > 40bpm, HR 121bpm, Vt < 350ml in a minute. Placed pt back on AC mode with the same settings. Will continue to monitor. ESHA Manjarrez made aware.
--- NOTE | 2019-02-19 09:37 | NUR ---
NURSE NOTES: Seen by Dr Bailon,will follow up with new orders
--- NOTE | 2019-02-19 10:04 | NUR ---
NURSE NOTES: Turned and repositioned.Seen by Dr Rivera,will follow up with new order.Failed weaning twice on CPAP PS 10 , RR 40bpm, HR 121 Vt 250ml . Placed back on AC mode . Will continue to monitor.
[2019-02-19] MEDS: Vancomycin 1gm/D5W 275ml IVPB SCH ×4 (10:20→22:58)
[2019-02-19] MEDS ORDERED: Potassium Phosphate 30 MM in NS 275 ML IV ONE (10:30)
--- NOTE | 2019-02-19 10:31 | Nephrology Progress Note ---
Assessment/Plan Problem List: (1) STEFANI (acute kidney injury) Assessment: Cr lower (2) Septic shock (3) Electrolyte and fluid disorder (4) Abnormal LFTs Assessment - STEFANI (acute kidney injury) - Septic shock - Lactic acid acidosis - Abnormal LFTs - Gastrointestinal bleed - Alcohol withdrawal seizure Plan K and Mag and Phos supplement as needed start feeding Hemodynamic support Pressors / Fluids as needed Aim to correct the electrolyte and acid base imbalance monitor renal parameters gastric support switch dilantin to keppra as LFTs rising per orders Subjective ROS Limited/Unobtainable: Yes Objective Objective Last 24 Hour Vital Signs Date Time Temp Pulse Resp B/P (MAP) Pulse Ox O2 Delivery O2 Flow Rate FiO2 02/19/19 10:04 101/57 02/19/19 09:08 117 32 40 02/19/19 08:00 Mechanical Ventilator 02/19/19 08:00 40 02/19/19 07:00 94/61 02/19/19 06:39 103 26 40 02/19/19 06:00 93/61 02/19/19 05:00 102/65 02/19/19 04:56 111 29 40 02/19/19 04:00 107 02/19/19 04:00 Mechanical Ventilator 02/19/19 04:00 101/43 02/19/19 04:00 40 02/19/19 03:08 105 28 40 02/19/19 03:00 102/65 02/19/19 02:00 104/71 02/19/19 01:00 102/63 02/19/19 00:59 108 30 40 02/19/19 00:00 Mechanical Ventilator 02/19/19 00:00 95/60 02/19/19 00:00 40 02/19/19 00:00 101 02/18/19 23:27 104 28 40 02/18/19 23:00 104/67 02/18/19 22:08 103/66 02/18/19 22:00 107/68 02/18/19 21:30 106 26 40 02/18/19 21:00 104/69 02/18/19 20:00 115/74 02/18/19 20:00 Mechanical Ventilator 02/18/19 20:00 117 02/18/19 20:00 40 02/18/19 19:30 110 18 109/70 (83) 98 02/18/19 19:28 106 32 40 02/18/19 19:15 103 28 115/82 (93) 100 02/18/19 19:00 115/82 02/18/19 19:00 104 26 110/74 (86) 100 02/18/19 18:45 98 27 113/74 (87) 100 02/18/19 18:30 103 22 108/76 (87) 100 02/18/19 18:15 98 26 106/74 (85) 100 02/18/19 18:00 100 27 111/78 (89) 78 02/18/19 18:00 106/74 02/18/19 17:45 102 25 119/75 (90) 02/18/19 17:30 101 29 107/73 (84) 02/18/19 17:25 107 30 40 02/18/19 17:15 109 28 118/79 (92) 63 02/18/19 17:00 118/79 02/18/19 17:00 106 28 107/71 (83) 02/18/19 16:45 113 29 109/73 (85) 81 02/18/19 16:30 115 15 100/73 (82) 100 02/18/19 16:15 101 27 104/71 (82) 99 02/18/19 16:00 101 02/18/19 16:00 40 02/18/19 16:00 Mechanical Ventilator 02/18/19 16:00 104/69 02/18/19 16:00 98.8 104 29 108/71 (83) 98 02/18/19 15:45 101 26 104/69 (81) 100 02/18/19 15:30 104 27 100/62 (75) 100 02/18/19 15:15 119 28 112/69 (83) 97 02/18/19 15:14 109 30 40 02/18/19 15:00 119 28 108/66 (80) 96 02/18/19 15:00 112/69 02/18/19 14:45 103 26 101/66 (78) 100 02/18/19 14:30 105 26 105/66 (79) 100 02/18/19 14:15 107 26 101/66 (78) 100 02/18/19 14:00 118 23 107/63 (78) 95 02/18/19 14:00 101/66 02/18/19 13:45 105 27 98/67 (77) 100 02/18/19 13:30 106 27 105/65 (78) 100 02/18/19 13:18 114 30 40 02/18/19 13:15 113 26 101/63 (76) 100 02/18/19 13:04 98/61 02/18/19 13:00 118 24 108/61 (77) 99 02/18/19 13:00 101/63 02/18/19 12:45 107 26 98/61 (73) 100 02/18/19 12:30 108 27 98/61 (73) 100 02/18/19 12:15 115 31 108/64 (79) 100 02/18/19 12:06 98.5 115 27 106/64 (78) 99 02/18/19 12:00 Mechanical Ventilator 02/18/19 12:00 107 02/18/19 12:00 98/61 02/18/19 12:00 40 02/18/19 11:45 112 27 99/62 (74) 99 02/18/19 11:30 109 26 98/59 (72) 100 02/18/19 11:15 113 28 107/65 (79) 100 02/18/19 11:00 107/65 02/18/19 11:00 112 28 107/66 (80) 100 02/18/19 10:45 116 23 105/68 (80) 99 02/18/19 10:43 117 32 40 Intake and Output 02/18/19 02/19/19 19:00 07:00 Intake Total 2194.64 ml 2668.760 ml Output Total 2050 ml 1350 ml Balance 144.64 ml 1318.760 ml IV Total 2194.64 ml 2668.760 ml Output Urine Total 2050 ml 1350 ml Laboratory Tests 02/18/19 19:50: Vancomycin Level Trough 6.4 02/19/19 04:20: White Blood Count 14.7H, Red Blood Count 2.45L, Hemoglobin 8.0L, Hematocrit 23.4L, Mean Corpuscular Volume 96, Mean Corpuscular Hemoglobin 32.9H, Mean Corpuscular Hemoglobin Concent 34.4, Red Cell Distribution Width 14.7, Platelet Count 40L, Mean Platelet Volume 10.6H, Neutrophils (%) (Auto) , Lymphocytes (%) (Auto) , Monocytes (%) (Auto) , Eosinophils (%) (Auto) , Basophils (%) (Auto) , Differential Total Cells Counted 100, Neutrophils % (Manual) 74, Lymphocytes % ( Manual) 13L, Monocytes % (Manual) 7, Eosinophils % (Manual) 5H, Basophils % ( Manual) 1, Band Neutrophils 0, Platelet Estimate DecreasedL, Platelet Morphology Normal, Hypochromasia 3+, Anisocytosis 1+, Prothrombin Time 13.8H, Prothromb Time International Ratio 1.3H, Sodium Level 141, Potassium Level 2.7*L , Chloride Level 107, Carbon Dioxide Level 26, Anion Gap 9, Blood Urea Nitrogen 8, Creatinine 0.8, Estimat Glomerular Filtration Rate > 60, Glucose Level 160H, Uric Acid 1.6L, Calcium Level 7.0L, Phosphorus Level 1.7L, Magnesium Level 2.1, Total Bilirubin 4.1H, Direct Bilirubin 3.3H, Gamma Glutamyl Transpeptidase 474H , Aspartate Amino Transf (AST/SGOT) 197H, Alanine Aminotransferase (ALT/SGPT) 59 , Alkaline Phosphatase 123H, Troponin I 0.051, C-Reactive Protein, Quantitative 9.2H, Pro-B-Type Natriuretic Peptide 1980H, Total Protein 4.1L, Albumin 1.7L, Globulin 2.4, Albumin/Globulin Ratio 0.7L Height (Feet): 5 Height (Inches): 5.00 Weight (Pounds): 182 General Appearance: no apparent distress Objective no change Scotty Bailon MD Feb 19, 2019 10:31
[2019-02-19] MEDS ORDERED: Folic Acid 1 MG, Magnesium Sulfate 2,000 MG, Multivitamin - 12 Injection 10 ML in Sodiu... IV SCH (10:45)
[2019-02-19] MEDS ORDERED: D5 1/2NS w/KCl 20mEq 1,000 ML IV SCH (11:00)
[2019-02-19] MEDS: LORazepam Inj 2mg/ml 1ml IV PRN (11:03)
--- NOTE | 2019-02-19 11:19 | GI Progress Note ---
Assessment/Plan Problems: (1) Coffee ground emesis ICD Codes: K92.0 - Hematemesis SNOMED: 58975742 (2) Episode of confusion ICD Codes: R41.0 - Disorientation, unspecified SNOMED: 01672991 (3) Gastrointestinal bleed ICD Codes: K92.2 - Gastrointestinal hemorrhage, unspecified SNOMED: 34035448 (4) Abnormal LFTs ICD Codes: R94.5 - Abnormal results of liver function studies SNOMED: 483433305 (5) Diarrhea ICD Codes: R19.7 - Diarrhea, unspecified SNOMED: 53700959 (6) Electrolyte and fluid disorder ICD Codes: E87.8 - Other disorders of electrolyte and fluid balance, not elsewhere classified SNOMED: 94195318 (7) Sepsis ICD Codes: A41.9 - Sepsis, unspecified organism SNOMED: 00442741 Status: unchanged Status Narrative Discussed with Dr. Bloom. Assessment/Plan black stools per nurses drop in H&H positive stool ob EGD cancelled, will reschedule when patient is stable ppi IV Q 12 monitor H&H Follow-up ID recommendations given leukocytosis monitor H&H, prn transfusions IV hydration plus electrolyte correction fu labs Vit k The patient was seen and examined at bedside and all new and available data was reviewed in the patients chart. I agree with the above findings, impression and plan. (Patient seen earlier today. Signature stamp does not reflect patient encounter time.). - Jones Bloom MD Subjective Subjective limited Objective Last 24 Hour Vital Signs Date Time Temp Pulse Resp B/P (MAP) Pulse Ox O2 Delivery O2 Flow Rate FiO2 02/19/19 10:50 115 32 40 02/19/19 10:04 101/57 02/19/19 09:08 117 32 40 02/19/19 08:00 Mechanical Ventilator 02/19/19 08:00 40 02/19/19 07:00 94/61 02/19/19 06:39 103 26 40 02/19/19 06:00 93/61 02/19/19 05:00 102/65 02/19/19 04:56 111 29 40 02/19/19 04:00 107 02/19/19 04:00 Mechanical Ventilator 02/19/19 04:00 101/43 02/19/19 04:00 40 7/15/19 03:08 105 28 40 02/19/19 03:00 102/65 02/19/19 02:00 104/71 02/19/19 01:00 102/63 02/19/19 00:59 108 30 40 02/19/19 00:00 Mechanical Ventilator 02/19/19 00:00 95/60 02/19/19 00:00 40 02/19/19 00:00 101 02/18/19 23:27 104 28 40 02/18/19 23:00 104/67 02/18/19 22:08 103/66 02/18/19 22:00 107/68 02/18/19 21:30 106 26 40 02/18/19 21:00 104/69 02/18/19 20:00 115/74 02/18/19 20:00 Mechanical Ventilator 02/18/19 20:00 117 02/18/19 20:00 40 02/18/19 19:30 110 18 109/70 (83) 98 02/18/19 19:28 106 32 40 02/18/19 19:15 103 28 115/82 (93) 100 02/18/19 19:00 115/82 02/18/19 19:00 104 26 110/74 (86) 100 02/18/19 18:45 98 27 113/74 (87) 100 02/18/19 18:30 103 22 108/76 (87) 100 02/18/19 18:15 98 26 106/74 (85) 100 02/18/19 18:00 100 27 111/78 (89) 78 02/18/19 18:00 106/74 02/18/19 17:45 102 25 119/75 (90) 02/18/19 17:30 101 29 107/73 (84) 02/18/19 17:25 107 30 40 02/18/19 17:15 109 28 118/79 (92) 63 02/18/19 17:00 118/79 02/18/19 17:00 106 28 107/71 (83) 02/18/19 16:45 113 29 109/73 (85) 81 02/18/19 16:30 115 15 100/73 (82) 100 02/18/19 16:15 101 27 104/71 (82) 99 02/18/19 16:00 101 02/18/19 16:00 40 02/18/19 16:00 Mechanical Ventilator 02/18/19 16:00 104/69 02/18/19 16:00 98.8 104 29 108/71 (83) 98 02/18/19 15:45 101 26 104/69 (81) 100 02/18/19 15:30 104 27 100/62 (75) 100 02/18/19 15:15 119 28 112/69 (83) 97 02/18/19 15:14 109 30 40 02/18/19 15:00 119 28 108/66 (80) 96 02/18/19 15:00 112/69 02/18/19 14:45 103 26 101/66 (78) 100 02/18/19 14:30 105 26 105/66 (79) 100 02/18/19 14:15 107 26 101/66 (78) 100 02/18/19 14:00 118 23 107/63 (78) 95 02/18/19 14:00 101/66 02/18/19 13:45 105 27 98/67 (77) 100 02/18/19 13:30 106 27 105/65 (78) 100 02/18/19 13:18 114 30 40 02/18/19 13:15 113 26 101/63 (76) 100 02/18/19 13:04 98/61 02/18/19 13:00 118 24 108/61 (77) 99 02/18/19 13:00 101/63 02/18/19 12:45 107 26 98/61 (73) 100 02/18/19 12:30 108 27 98/61 (73) 100 02/18/19 12:15 115 31 108/64 (79) 100 02/18/19 12:06 98.5 115 27 106/64 (78) 99 02/18/19 12:00 Mechanical Ventilator 02/18/19 12:00 107 02/18/19 12:00 98/61 02/18/19 12:00 40 02/18/19 11:45 112 27 99/62 (74) 99 02/18/19 11:30 109 26 98/59 (72) 100 Intake and Output 02/18/19 02/19/19 19:00 07:00 Intake Total 2194.64 ml 2668.760 ml Output Total 2050 ml 1350 ml Balance 144.64 ml 1318.760 ml IV Total 2194.64 ml 2668.760 ml Output Urine Total 2050 ml 1350 ml Laboratory Tests Test 02/18/19 19:50 02/19/19 04:20 Vancomycin Level Trough 6.4 ug/mL (5.0-12.0) White Blood Count 14.7 K/UL (4.8-10.8) H Red Blood Count 2.45 M/UL (4.70-6.10) L Hemoglobin 8.0 G/DL (14.2-18.0) L Hematocrit 23.4 % (42.0-52.0) L Mean Corpuscular Volume 96 FL (80-99) Mean Corpuscular Hemoglobin 32.9 PG (27.0-31.0) H Mean Corpuscular Hemoglobin Concent 34.4 G/DL (32.0-36.0) Red Cell Distribution Width 14.7 % (11.6-14.8) Platelet Count 40 K/UL (150-450) L Mean Platelet Volume 10.6 FL (6.5-10.1) H Neutrophils (%) (Auto) % (45.0-75.0) Lymphocytes (%) (Auto) % (20.0-45.0) Monocytes (%) (Auto) % (1.0-10.0) Eosinophils (%) (Auto) % (0.0-3.0) Basophils (%) (Auto) % (0.0-2.0) Differential Total Cells Counted 100 Neutrophils % (Manual) 74 % (45-75) Lymphocytes % (Manual) 13 % (20-45) L Monocytes % (Manual) 7 % (1-10) Eosinophils % (Manual) 5 % (0-3) H Basophils % (Manual) 1 % (0-2) Band Neutrophils 0 % (0-8) Platelet Estimate Decreased L Platelet Morphology Normal Hypochromasia 3+ Anisocytosis 1+ Prothrombin Time 13.8 SEC (9.30-11.50) H Prothromb Time International Ratio 1.3 (0.9-1.1) H Sodium Level 141 MMOL/L (136-145) Potassium Level 2.7 MMOL/L (3.5-5.1) *L Chloride Level 107 MMOL/L (98-107) Carbon Dioxide Level 26 MMOL/L (21-32) Anion Gap 9 mmol/L (5-15) Blood Urea Nitrogen 8 mg/dL (7-18) Creatinine 0.8 MG/DL (0.55-1.30) Estimat Glomerular Filtration Rate > 60 mL/min (>60) Glucose Level 160 MG/DL (74-106) H Uric Acid 1.6 MG/DL (2.6-7.2) L Calcium Level 7.0 MG/DL (8.5-10.1) L Phosphorus Level 1.7 MG/DL (2.5-4.9) L Magnesium Level 2.1 MG/DL (1.8-2.4) Total Bilirubin 4.1 MG/DL (0.2-1.0) H Direct Bilirubin 3.3 MG/DL (0.0-0.3) H Gamma Glutamyl Transpeptidase 474 U/L (5-85) H Aspartate Amino Transf (AST/SGOT) 197 U/L (15-37) H Alanine Aminotransferase (ALT/SGPT) 59 U/L (12-78) Alkaline Phosphatase 123 U/L (46-116) H Troponin I 0.051 ng/mL (0.000-0.056) C-Reactive Protein, Quantitative 9.2 mg/dL (0.00-0.90) H Pro-B-Type Natriuretic Peptide 1980 pg/mL (0-125) H Total Protein 4.1 G/DL (6.4-8.2) L Albumin 1.7 G/DL (3.4-5.0) L Globulin 2.4 g/dL Albumin/Globulin Ratio 0.7 (1.0-2.7) L Height (Feet): 5 Height (Inches): 5.00 Weight (Pounds): 182 General Appearance: WD/WN, no apparent distress, alert Cardiovascular: normal rate Respiratory/Chest: normal breath sounds, no respiratory distress, other - mechanical vent Abdominal Exam: normal bowel sounds, non tender, soft Extremities: non-tender Juno Naranjo NP Feb 19, 2019 11:19
--- NOTE | 2019-02-19 11:19 | General Progress Note ---
Assessment/Plan Status: doing well, stable Status Narrative Assessment/Plan: 54 year old male with pMH of seizure disorder and etoh abuse admitted for seizures 2/2 non-compliance #severe septic shock likely 2/2 UTI #Gram negative bacteremia #Acute respiratory failure -Vanc and Zosyn - gentamicin - CT 02/18 with atelectasis mainly - Diuresis started -ID consult appreciated -f/u cultures - DEFER repeat blood cx to ID -cont ICU care -intubated and mild sedation. He follows commands well. -vent management per pulmonary, FAILED trial of Spontaneous today with RR up to 36 -wean as tolerated -Titrate pressors to goal map >65 -abg prn -pending CT chest/abd/pel #Lactic acidosis -2/2 severe shock/ poss abd source/ seizures -CTM -Fluid boluses ordered -Cont mIVF -Repeat in AM #Coagulopathy # Thrombocytopenia - 40,000 today. Stable for 2 days and has blood tinge urine - Requested hematology consult with Dr. Johnston -likely 2/2 hepatic injury 2/2 shock - Consumption coagulopathy. - Consider platelet transfusion if LESS than 30K with urine blood tinge color. #Coffee ground emesis likely in setting of GI bleed -H/H trending down -GI consult appreciated -Plan for EGD once stable. Cancelled today. -cont NPO -surgery consult appreciated #Seizures 2/2 noncomplaint with AED -s/p phenytoin load in ed -Cont Phenytoin -Neurology consult appreciated -pending EEG - no seizures noted in last 24 hours -Ativan PRN for seizures -NPO -Seizure precautions #Hypokalemia - Repleted after 2.7 level today #hypophosphatemia - Repleted. #Hypomagnesemia -repleted -CTM Code: Full Subjective ROS Limited/Unobtainable: Yes Constitutional: Reports: no symptoms HEENT: Reports: no symptoms Cardiovascular: Reports: no symptoms Allergies: Coded Allergies: No Known Allergies (Unverified , 02/10/15) Objective Last 24 Hour Vital Signs Date Time Temp Pulse Resp B/P (MAP) Pulse Ox O2 Delivery O2 Flow Rate FiO2 02/19/19 10:50 115 32 40 02/19/19 10:04 101/57 02/19/19 09:08 117 32 40 02/19/19 08:00 Mechanical Ventilator 02/19/19 08:00 40 02/19/19 07:00 94/61 02/19/19 06:39 103 26 40 02/19/19 06:00 93/61 02/19/19 05:00 102/65 02/19/19 04:56 111 29 40 02/19/19 04:00 107 02/19/19 04:00 Mechanical Ventilator 02/19/19 04:00 101/43 02/19/19 04:00 40 02/19/19 03:08 105 28 40 02/19/19 03:00 102/65 02/19/19 02:00 104/71 02/19/19 01:00 102/63 02/19/19 00:59 108 30 40 02/19/19 00:00 Mechanical Ventilator 02/19/19 00:00 95/60 02/19/19 00:00 40 02/19/19 00:00 101 02/18/19 23:27 104 28 40 02/18/19 23:00 104/67 02/18/19 22:08 103/66 02/18/19 22:00 107/68 02/18/19 21:30 106 26 40 02/18/19 21:00 104/69 02/18/19 20:00 115/74 02/18/19 20:00 Mechanical Ventilator 02/18/19 20:00 117 02/18/19 20:00 40 02/18/19 19:30 110 18 109/70 (83) 98 02/18/19 19:28 106 32 40 02/18/19 19:15 103 28 115/82 (93) 100 02/18/19 19:00 115/82 02/18/19 19:00 104 26 110/74 (86) 100 02/18/19 18:45 98 27 113/74 (87) 100 02/18/19 18:30 103 22 108/76 (87) 100 02/18/19 18:15 98 26 106/74 (85) 100 02/18/19 18:00 100 27 111/78 (89) 78 02/18/19 18:00 106/74 02/18/19 17:45 102 25 119/75 (90) 02/18/19 17:30 101 29 107/73 (84) 02/18/19 17:25 107 30 40 02/18/19 17:15 109 28 118/79 (92) 63 02/18/19 17:00 118/79 02/18/19 17:00 106 28 107/71 (83) 02/18/19 16:45 113 29 109/73 (85) 81 02/18/19 16:30 115 15 100/73 (82) 100 02/18/19 16:15 101 27 104/71 (82) 99 02/18/19 16:00 101 02/18/19 16:00 40 02/18/19 16:00 Mechanical Ventilator 02/18/19 16:00 104/69 02/18/19 16:00 98.8 104 29 108/71 (83) 98 02/18/19 15:45 101 26 104/69 (81) 100 02/18/19 15:30 104 27 100/62 (75) 100 02/18/19 15:15 119 28 112/69 (83) 97 02/18/19 15:14 109 30 40 02/18/19 15:00 119 28 108/66 (80) 96 02/18/19 15:00 112/69 02/18/19 14:45 103 26 101/66 (78) 100 02/18/19 14:30 105 26 105/66 (79) 100 02/18/19 14:15 107 26 101/66 (78) 100 02/18/19 14:00 118 23 107/63 (78) 95 02/18/19 14:00 101/66 02/18/19 13:45 105 27 98/67 (77) 100 02/18/19 13:30 106 27 105/65 (78) 100 02/18/19 13:18 114 30 40 02/18/19 13:15 113 26 101/63 (76) 100 02/18/19 13:04 98/61 02/18/19 13:00 118 24 108/61 (77) 99 02/18/19 13:00 101/63 02/18/19 12:45 107 26 98/61 (73) 100 02/18/19 12:30 108 27 98/61 (73) 100 02/18/19 12:15 115 31 108/64 (79) 100 02/18/19 12:06 98.5 115 27 106/64 (78) 99 02/18/19 12:00 Mechanical Ventilator 02/18/19 12:00 107 02/18/19 12:00 98/61 02/18/19 12:00 40 02/18/19 11:45 112 27 99/62 (74) 99 02/18/19 11:30 109 26 98/59 (72) 100 Intake and Output 02/18/19 02/19/19 19:00 07:00 Intake Total 2194.64 ml 2668.760 ml Output Total 2050 ml 1350 ml Balance 144.64 ml 1318.760 ml IV Total 2194.64 ml 2668.760 ml Output Urine Total 2050 ml 1350 ml Laboratory Tests 02/18/19 19:50: Vancomycin Level Trough 6.4 02/19/19 04:20: White Blood Count 14.7H, Red Blood Count 2.45L, Hemoglobin 8.0L, Hematocrit 23.4L, Mean Corpuscular Volume 96, Mean Corpuscular Hemoglobin 32.9H, Mean Corpuscular Hemoglobin Concent 34.4, Red Cell Distribution Width 14.7, Platelet Count 40L, Mean Platelet Volume 10.6H, Neutrophils (%) (Auto) , Lymphocytes (%) (Auto) , Monocytes (%) (Auto) , Eosinophils (%) (Auto) , Basophils (%) (Auto) , Differential Total Cells Counted 100, Neutrophils % (Manual) 74, Lymphocytes % ( Manual) 13L, Monocytes % (Manual) 7, Eosinophils % (Manual) 5H, Basophils % ( Manual) 1, Band Neutrophils 0, Platelet Estimate DecreasedL, Platelet Morphology Normal, Hypochromasia 3+, Anisocytosis 1+, Prothrombin Time 13.8H, Prothromb Time International Ratio 1.3H, Sodium Level 141, Potassium Level 2.7*L , Chloride Level 107, Carbon Dioxide Level 26, Anion Gap 9, Blood Urea Nitrogen 8, Creatinine 0.8, Estimat Glomerular Filtration Rate > 60, Glucose Level 160H, Uric Acid 1.6L, Calcium Level 7.0L, Phosphorus Level 1.7L, Magnesium Level 2.1, Total Bilirubin 4.1H, Direct Bilirubin 3.3H, Gamma Glutamyl Transpeptidase 474H , Aspartate Amino Transf (AST/SGOT) 197H, Alanine Aminotransferase (ALT/SGPT) 59 , Alkaline Phosphatase 123H, Troponin I 0.051, C-Reactive Protein, Quantitative 9.2H, Pro-B-Type Natriuretic Peptide 1980H, Total Protein 4.1L, Albumin 1.7L, Globulin 2.4, Albumin/Globulin Ratio 0.7L Height (Feet): 5 Height (Inches): 5.00 Weight (Pounds): 182 General Appearance: WD/WN, moderate distress, other - intubated, OGT EENT: PERRL/EOMI Cardiovascular: normal rate, regular rhythm Respiratory/Chest: decreased breath sounds Abdomen: normal bowel sounds Edema: trace edema 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
--- NOTE | 2019-02-19 11:35 | Pulmonolgy Critical Care Note ---
Critical Care - Asmt/Plan Problems: (1) Seizure disorder (2) Endotracheally intubated (3) Septic shock (4) Sepsis (5) Sinus tachycardia (6) Lactic acid acidosis (7) High anion gap metabolic acidosis (8) STEFANI (acute kidney injury) (9) Abnormal LFTs (10) Coffee ground emesis (11) Gastrointestinal bleed (12) Altered mental status (13) Alcohol withdrawal seizure (14) Ventilator dependent Assessment/Plan: Continue [id number]@100 Replete K and phos Titrate NE to keep MAP > 60, off Vaso Continue Vano/Zosyn/Gent per ID, F/U Cx's Trend Cr, LA, LFT's F/U GI recs, PPI, EGD when stable Monitor HH and platelets, transfuse as needed, EGD tomorrow Heme eval pending Monitor for EtOH w/drawal, PRN ativan Continue AEDs, monitor for Sz's, F/U neuro recs FC CCT 35 Critical Care - Objective Last 24 Hour Vital Signs Date Time Temp Pulse Resp B/P (MAP) Pulse Ox O2 Delivery O2 Flow Rate FiO2 02/19/19 10:50 115 32 40 02/19/19 10:04 101/57 02/19/19 09:08 117 32 40 02/19/19 08:00 Mechanical Ventilator 02/19/19 08:00 40 02/19/19 07:00 94/61 02/19/19 06:39 103 26 40 02/19/19 06:00 93/61 02/19/19 05:00 102/65 02/19/19 04:56 111 29 40 02/19/19 04:00 107 02/19/19 04:00 Mechanical Ventilator 02/19/19 04:00 101/43 02/19/19 04:00 40 02/19/19 03:08 105 28 40 02/19/19 03:00 102/65 02/19/19 02:00 104/71 02/19/19 01:00 102/63 02/19/19 00:59 108 30 40 02/19/19 00:00 Mechanical Ventilator 02/19/19 00:00 95/60 02/19/19 00:00 40 02/19/19 00:00 101 02/18/19 23:27 104 28 40 02/18/19 23:00 104/67 02/18/19 22:08 103/66 02/18/19 22:00 107/68 02/18/19 21:30 106 26 40 02/18/19 21:00 104/69 02/18/19 20:00 115/74 02/18/19 20:00 Mechanical Ventilator 02/18/19 20:00 117 02/18/19 20:00 40 02/18/19 19:30 110 18 109/70 (83) 98 02/18/19 19:28 106 32 40 02/18/19 19:15 103 28 115/82 (93) 100 02/18/19 19:00 115/82 02/18/19 19:00 104 26 110/74 (86) 100 02/18/19 18:45 98 27 113/74 (87) 100 02/18/19 18:30 103 22 108/76 (87) 100 02/18/19 18:15 98 26 106/74 (85) 100 02/18/19 18:00 100 27 111/78 (89) 78 02/18/19 18:00 106/74 02/18/19 17:45 102 25 119/75 (90) 02/18/19 17:30 101 29 107/73 (84) 02/18/19 17:25 107 30 40 02/18/19 17:15 109 28 118/79 (92) 63 02/18/19 17:00 118/79 02/18/19 17:00 106 28 107/71 (83) 02/18/19 16:45 113 29 109/73 (85) 81 02/18/19 16:30 115 15 100/73 (82) 100 02/18/19 16:15 101 27 104/71 (82) 99 02/18/19 16:00 101 02/18/19 16:00 40 02/18/19 16:00 Mechanical Ventilator 02/18/19 16:00 104/69 02/18/19 16:00 98.8 104 29 108/71 (83) 98 02/18/19 15:45 101 26 104/69 (81) 100 02/18/19 15:30 104 27 100/62 (75) 100 02/18/19 15:15 119 28 112/69 (83) 97 02/18/19 15:14 109 30 40 02/18/19 15:00 119 28 108/66 (80) 96 02/18/19 15:00 112/69 02/18/19 14:45 103 26 101/66 (78) 100 02/18/19 14:30 105 26 105/66 (79) 100 02/18/19 14:15 107 26 101/66 (78) 100 02/18/19 14:00 118 23 107/63 (78) 95 02/18/19 14:00 101/66 02/18/19 13:45 105 27 98/67 (77) 100 02/18/19 13:30 106 27 105/65 (78) 100 02/18/19 13:18 114 30 40 02/18/19 13:15 113 26 101/63 (76) 100 02/18/19 13:04 98/61 02/18/19 13:00 118 24 108/61 (77) 99 02/18/19 13:00 101/63 02/18/19 12:45 107 26 98/61 (73) 100 02/18/19 12:30 108 27 98/61 (73) 100 02/18/19 12:15 115 31 108/64 (79) 100 02/18/19 12:06 98.5 115 27 106/64 (78) 99 02/18/19 12:00 Mechanical Ventilator 02/18/19 12:00 107 02/18/19 12:00 98/61 02/18/19 12:00 40 02/18/19 11:45 112 27 99/62 (74) 99 Status: awake - confused on vent Condition: critical HEENT: atraumatic, normocephalic Lungs: rhonchi Heart: HR/BP stable Abdomen: soft, non-tender, active bowel sounds Extremities: edema - 1+, cyanosis - no, clubbing - no Micro: Microbiology Date/Time Source Procedure Growth Status 02/17/19 06:30 Blood Blood Culture - Preliminary Gram Negative Isac Resulted 02/17/19 06:25 Blood Blood Culture - Preliminary Gram Negative Isac Resulted 02/16/19 19:30 Sputum Gram Stain - Final Complete 02/16/19 19:30 Sputum Culture - Final Luciana Albicans Complete Accucheck: 33 Blood Sugars: BS not controlled Critical Care - Subjective ROS Limited/Unobtainable: Yes ICU Day: 5 Intubation Day: 4 Interval Events: Failed SBT EGD cancelled Condition: critical IV Access: central - L FEM EKG Rhythm: Sinus Tachycardia FI02: 40 Vent Support Breath Rate: 26 Vent Support Mode: AC Vent Tidal Volume: 500 Sputum Amount: Small PEEP: 5.0 PIP: 20 Secretions: Minimal Fluids: [id number] @ 100 + banana bag daily Drips: NE 6 I&O: Intake and Output 02/18/19 02/19/19 18:59 06:59 Intake Total 2184.76 ml 2696.860 ml Output Total 1890 ml 1500 ml Balance 294.76 ml 1196.860 ml IV Total 2184.76 ml 2696.860 ml Output Urine Total 1890 ml 1500 ml Subjective: [place] ET-Tube: 7.5 ET Position: 24 Labs: Laboratory Tests Test 02/18/19 19:50 02/19/19 04:20 Vancomycin Level Trough 6.4 ug/mL (5.0-12.0) White Blood Count 14.7 K/UL (4.8-10.8) H Red Blood Count 2.45 M/UL (4.70-6.10) L Hemoglobin 8.0 G/DL (14.2-18.0) L Hematocrit 23.4 % (42.0-52.0) L Mean Corpuscular Volume 96 FL (80-99) Mean Corpuscular Hemoglobin 32.9 PG (27.0-31.0) H Mean Corpuscular Hemoglobin Concent 34.4 G/DL (32.0-36.0) Red Cell Distribution Width 14.7 % (11.6-14.8) Platelet Count 40 K/UL (150-450) L Mean Platelet Volume 10.6 FL (6.5-10.1) H Neutrophils (%) (Auto) % (45.0-75.0) Lymphocytes (%) (Auto) % (20.0-45.0) Monocytes (%) (Auto) % (1.0-10.0) Eosinophils (%) (Auto) % (0.0-3.0) Basophils (%) (Auto) % (0.0-2.0) Differential Total Cells Counted 100 Neutrophils % (Manual) 74 % (45-75) Lymphocytes % (Manual) 13 % (20-45) L Monocytes % (Manual) 7 % (1-10) Eosinophils % (Manual) 5 % (0-3) H Basophils % (Manual) 1 % (0-2) Band Neutrophils 0 % (0-8) Platelet Estimate Decreased L Platelet Morphology Normal Hypochromasia 3+ Anisocytosis 1+ Prothrombin Time 13.8 SEC (9.30-11.50) H Prothromb Time International Ratio 1.3 (0.9-1.1) H Sodium Level 141 MMOL/L (136-145) Potassium Level 2.7 MMOL/L (3.5-5.1) *L Chloride Level 107 MMOL/L (98-107) Carbon Dioxide Level 26 MMOL/L (21-32) Anion Gap 9 mmol/L (5-15) Blood Urea Nitrogen 8 mg/dL (7-18) Creatinine 0.8 MG/DL (0.55-1.30) Estimat Glomerular Filtration Rate > 60 mL/min (>60) Glucose Level 160 MG/DL (74-106) H Uric Acid 1.6 MG/DL (2.6-7.2) L Calcium Level 7.0 MG/DL (8.5-10.1) L Phosphorus Level 1.7 MG/DL (2.5-4.9) L Magnesium Level 2.1 MG/DL (1.8-2.4) Total Bilirubin 4.1 MG/DL (0.2-1.0) H Direct Bilirubin 3.3 MG/DL (0.0-0.3) H Gamma Glutamyl Transpeptidase 474 U/L (5-85) H Aspartate Amino Transf (AST/SGOT) 197 U/L (15-37) H Alanine Aminotransferase (ALT/SGPT) 59 U/L (12-78) Alkaline Phosphatase 123 U/L (46-116) H Troponin I 0.051 ng/mL (0.000-0.056) C-Reactive Protein, Quantitative 9.2 mg/dL (0.00-0.90) H Pro-B-Type Natriuretic Peptide 1980 pg/mL (0-125) H Total Protein 4.1 G/DL (6.4-8.2) L Albumin 1.7 G/DL (3.4-5.0) L Globulin 2.4 g/dL Albumin/Globulin Ratio 0.7 (1.0-2.7) L Han Harris MD Feb 19, 2019 11:35
[2019-02-19] MEDS ORDERED: Heparin1,000 units/500ml Premix(Conc:2 units/ml) IV SCH (12:00)
[2019-02-19] MEDS ORDERED: Lidocaine 1% Plain 30 ml INJ SCH (12:00)
--- NOTE | 2019-02-19 12:07 | NUR ---
NURSE NOTES: Mouth care done, turned and repositioned.HOB elevated to prevent aspiration.Will continue to monitor
--- NOTE | 2019-02-19 12:08 | Surgery Progress Note ---
Surgery Progress Note Subjective Procedure Performed left femoral central venous catheter insertion Additional Comments no acute events. awake and responsive today wean from vent but not ready as he becomes tachypnea making urine labs improving imaging noted Objective Last 24 Hour Vital Signs Date Time Temp Pulse Resp B/P (MAP) Pulse Ox O2 Delivery O2 Flow Rate FiO2 02/19/19 11:00 109/67 02/19/19 10:50 115 32 40 02/19/19 10:04 101/57 02/19/19 09:08 117 32 40 02/19/19 08:00 Mechanical Ventilator 02/19/19 08:00 107 02/19/19 08:00 40 02/19/19 07:00 94/61 02/19/19 06:39 103 26 40 02/19/19 06:00 93/61 02/19/19 05:00 102/65 02/19/19 04:56 111 29 40 02/19/19 04:00 107 02/19/19 04:00 Mechanical Ventilator 02/19/19 04:00 101/43 02/19/19 04:00 40 02/19/19 03:08 105 28 40 02/19/19 03:00 102/65 02/19/19 02:00 104/71 02/19/19 01:00 102/63 02/19/19 00:59 108 30 40 02/19/19 00:00 Mechanical Ventilator 02/19/19 00:00 95/60 02/19/19 00:00 40 02/19/19 00:00 101 02/18/19 23:27 104 28 40 02/18/19 23:00 104/67 02/18/19 22:08 103/66 02/18/19 22:00 107/68 02/18/19 21:30 106 26 40 02/18/19 21:00 104/69 02/18/19 20:00 115/74 02/18/19 20:00 Mechanical Ventilator 02/18/19 20:00 117 02/18/19 20:00 40 02/18/19 19:30 110 18 109/70 (83) 98 02/18/19 19:28 106 32 40 02/18/19 19:15 103 28 115/82 (93) 100 02/18/19 19:00 115/82 02/18/19 19:00 104 26 110/74 (86) 100 02/18/19 18:45 98 27 113/74 (87) 100 02/18/19 18:30 103 22 108/76 (87) 100 02/18/19 18:15 98 26 106/74 (85) 100 02/18/19 18:00 100 27 111/78 (89) 78 02/18/19 18:00 106/74 02/18/19 17:45 102 25 119/75 (90) 02/18/19 17:30 101 29 107/73 (84) 02/18/19 17:25 107 30 40 02/18/19 17:15 109 28 118/79 (92) 63 02/18/19 17:00 118/79 02/18/19 17:00 106 28 107/71 (83) 02/18/19 16:45 113 29 109/73 (85) 81 02/18/19 16:30 115 15 100/73 (82) 100 02/18/19 16:15 101 27 104/71 (82) 99 02/18/19 16:00 101 02/18/19 16:00 40 02/18/19 16:00 Mechanical Ventilator 02/18/19 16:00 104/69 02/18/19 16:00 98.8 104 29 108/71 (83) 98 02/18/19 15:45 101 26 104/69 (81) 100 02/18/19 15:30 104 27 100/62 (75) 100 02/18/19 15:15 119 28 112/69 (83) 97 02/18/19 15:14 109 30 40 02/18/19 15:00 119 28 108/66 (80) 96 02/18/19 15:00 112/69 02/18/19 14:45 103 26 101/66 (78) 100 02/18/19 14:30 105 26 105/66 (79) 100 02/18/19 14:15 107 26 101/66 (78) 100 02/18/19 14:00 118 23 107/63 (78) 95 02/18/19 14:00 101/66 02/18/19 13:45 105 27 98/67 (77) 100 02/18/19 13:30 106 27 105/65 (78) 100 02/18/19 13:18 114 30 40 02/18/19 13:15 113 26 101/63 (76) 100 02/18/19 13:04 98/61 02/18/19 13:00 118 24 108/61 (77) 99 02/18/19 13:00 101/63 02/18/19 12:45 107 26 98/61 (73) 100 02/18/19 12:30 108 27 98/61 (73) 100 02/18/19 12:15 115 31 108/64 (79) 100 I&O Intake and Output 02/18/19 02/19/19 19:00 07:00 Intake Total 2194.64 ml 2668.760 ml Output Total 2050 ml 1350 ml Balance 144.64 ml 1318.760 ml IV Total 2194.64 ml 2668.760 ml Output Urine Total 2050 ml 1350 ml Laboratory Tests Test 02/18/19 19:50 02/19/19 04:20 Vancomycin Level Trough 6.4 ug/mL (5.0-12.0) White Blood Count 14.7 K/UL (4.8-10.8) H Red Blood Count 2.45 M/UL (4.70-6.10) L Hemoglobin 8.0 G/DL (14.2-18.0) L Hematocrit 23.4 % (42.0-52.0) L Mean Corpuscular Volume 96 FL (80-99) Mean Corpuscular Hemoglobin 32.9 PG (27.0-31.0) H Mean Corpuscular Hemoglobin Concent 34.4 G/DL (32.0-36.0) Red Cell Distribution Width 14.7 % (11.6-14.8) Platelet Count 40 K/UL (150-450) L Mean Platelet Volume 10.6 FL (6.5-10.1) H Neutrophils (%) (Auto) % (45.0-75.0) Lymphocytes (%) (Auto) % (20.0-45.0) Monocytes (%) (Auto) % (1.0-10.0) Eosinophils (%) (Auto) % (0.0-3.0) Basophils (%) (Auto) % (0.0-2.0) Differential Total Cells Counted 100 Neutrophils % (Manual) 74 % (45-75) Lymphocytes % (Manual) 13 % (20-45) L Monocytes % (Manual) 7 % (1-10) Eosinophils % (Manual) 5 % (0-3) H Basophils % (Manual) 1 % (0-2) Band Neutrophils 0 % (0-8) Platelet Estimate Decreased L Platelet Morphology Normal Hypochromasia 3+ Anisocytosis 1+ Prothrombin Time 13.8 SEC (9.30-11.50) H Prothromb Time International Ratio 1.3 (0.9-1.1) H Sodium Level 141 MMOL/L (136-145) Potassium Level 2.7 MMOL/L (3.5-5.1) *L Chloride Level 107 MMOL/L (98-107) Carbon Dioxide Level 26 MMOL/L (21-32) Anion Gap 9 mmol/L (5-15) Blood Urea Nitrogen 8 mg/dL (7-18) Creatinine 0.8 MG/DL (0.55-1.30) Estimat Glomerular Filtration Rate > 60 mL/min (>60) Glucose Level 160 MG/DL (74-106) H Uric Acid 1.6 MG/DL (2.6-7.2) L Calcium Level 7.0 MG/DL (8.5-10.1) L Phosphorus Level 1.7 MG/DL (2.5-4.9) L Magnesium Level 2.1 MG/DL (1.8-2.4) Total Bilirubin 4.1 MG/DL (0.2-1.0) H Direct Bilirubin 3.3 MG/DL (0.0-0.3) H Gamma Glutamyl Transpeptidase 474 U/L (5-85) H Aspartate Amino Transf (AST/SGOT) 197 U/L (15-37) H Alanine Aminotransferase (ALT/SGPT) 59 U/L (12-78) Alkaline Phosphatase 123 U/L (46-116) H Troponin I 0.051 ng/mL (0.000-0.056) C-Reactive Protein, Quantitative 9.2 mg/dL (0.00-0.90) H Pro-B-Type Natriuretic Peptide 1980 pg/mL (0-125) H Total Protein 4.1 G/DL (6.4-8.2) L Albumin 1.7 G/DL (3.4-5.0) L Globulin 2.4 g/dL Albumin/Globulin Ratio 0.7 (1.0-2.7) L Plan Problems: (1) Non-compliance Assessment & Plan: Noncompliance with seizure medication with known history of seizures Now had seizure Appreciate neurology input (2) Electrolyte and fluid disorder Assessment & Plan: Likely due to EtOH use and dehydration IV hydration Trend labs (3) Fever (4) Oral thrush (5) Diarrhea (6) Aspiration pneumonia (7) Seizure disorder (8) Tachycardia (9) Altered mental status (10) Alcohol withdrawal seizure (11) Alcohol withdrawal seizure (12) Episode of confusion (13) Coffee ground emesis (14) Gastrointestinal bleed Assessment & Plan: Patient on admission identified to have maroon-colored stool and coffee-ground emesis. Labs noted mild anemia with H&H trending down. No acute active bleed noted but given patient's history high risk for potential ulcers. PPI Appreciate GI input considerations for EGD once stable No evidence of pulmonary embolus, aortic dissection or aneurysm. Posterior basilar consolidation suspicious for pneumonia. Correlate clinically. Trace bilateral pleural effusions. Possible enterocolitis as described above. Please correlate clinically. Mild ascites Fatty liver Cholelithiasis with wall thickening. Cholecystitis not excluded. Small right inguinal hernia containing fat Extensive breathing motion artifact limiting evaluation. We will follow with recommendations thank you (15) Sinus tachycardia (16) Septic shock (17) Sepsis Assessment & Plan: Patient septic leukocytosis improved today lactic acidosis improving anemia renal function declining electrolyte disturbance US noted on pressors now but weaning on IV abx intubated on vent support cont with aggressive resuscitation (18) Lactic acid acidosis (19) STEFANI (acute kidney injury) (20) Abnormal LFTs (21) High anion gap metabolic acidosis Juanpablo Marcus Feb 19, 2019 12:08
--- NOTE | 2019-02-19 12:52 | NUR ---
NURSE NOTES: Pt seen by Dr Bloom per his request start feeding.
--- NOTE | 2019-02-19 14:11 | NUR ---
NURSE NOTES: Picc line placed BAUDILIO awaiting for confirmation.Turned and repositioned.Kept clean and dry
--- NOTE | 2019-02-19 14:20 | NUR ---
RADIOLOGY; RT SIDE PICC PLACED
--- NOTE | 2019-02-19 15:00 | NUR ---
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 LEUKOCYTOSIS . SEPTIC SHOCK . ACUTE RESP FAILURE VS: BP 93/61, P 115, RR 35, on VENT AC 26, PEEP 5.0, TV 500, FiO2 40 WBC 14.7, RBC2.45, H&H 8.0/23.4, Plt. Count 40, K 2.7, Uric Acid 1.6, Phos. 1.7, AST 197 IS:ZOSYN 110ml IVPB POTASSIUM CHLORIDE 100ml IVPB LORAZEPAM 1mg IV BANANA BAG 1,014.2ml IV VANCOMYCIN 275ml IVPB NOREPINEPHRINE 508ml IV POTASSIUM PHOSPHATE 285ml IV THIAMINE 56ml IVPB LEVETIRACETAM 100ml IVPB D5 ELECTROLYTES x1L IV PROTONIX 40mg IVP PLAN: START FEEDING PRESSORS AND FLUID NEEDED SWITCH DILANTIN TO KEPPRA EGD CANCELLED NOT STABLE WEAN TOLERATED ICU STATUS
--- NOTE | 2019-02-19 16:01 | NUR ---
NURSE NOTES: ADLS DONE,KEPT CLEAN AND DRY,MOUTH CARE DONE,WILL CONTINUE TO MONITOR
[2019-02-19] MEDS: Gentamicin inj 300 MG in NS 110 ML IVPB SCH (17:16)
--- NOTE | 2019-02-19 17:22 | Diagnostic Imaging Report ---
Indications: Needs long-term IV access Technique: Procedure performed at bedside. Procedural timeout performed. Ultrasound confirms patent compressible right basilic vein. Total sterile technique, including sterile probe cover and sterile gel, sterile gloves, hand hygiene, hat, mask,, sterile gown, large sterile drape, and preparation with 2% chlorhexidine utilized. Local anesthesia with 1% lidocaine. Under real-time ultrasound guidance, puncture basilic vein using 21-gauge needle, passage 0.018 guidewire, exchange for 4 [place] peel-away sheath. 4 [place] Bard dual-lumen power PICC cut to 39 cm. It was inserted through the peel-away sheath. Peel-away sheath and guidewire removed. Catheter fixed to the skin. Both catheter ports aspirated and flushed. Patient tolerated procedure well, without immediate complication. Followup chest x-ray obtained, documents catheter tip position at the cavoatrial junction Impression: Successful bedside placement of right arm PICC under sonographic guidance, as described above.
--- NOTE | 2019-02-19 18:12 | NUR ---
NURSE NOTES: PT ASLEEP,NO ACUTE DISTRESS,CALL LIGHT WITHIN EASY REACH,WILL CONTINUE TO MONITOR.TURNED AND REPOSITIONED
--- NOTE | 2019-02-19 18:14 | Cardiac Electrophysiology PN ---
Assessment/Plan Assessment/Plan 1. Sinus tachycardia up to 170s. No evidence of acute myocardial infarction . This is likely due to sepsis and anemia and alcohol withdrawal. Echo Nl EF 60% 2. Septic shock and severe Lactic acidosis on Levophed and broad-spectrum IV antibiotics. 3. Troponin leak. Type 2. Repeat level 0.16 4. Respiratory failure on the vent. Failed weaning 5. ETOH withdrawal 6. Seizures with noncompliance. 7. Upper gi bleed. EGD pending CONSTANCE RN Subjective Subjective In ICU on Levophed on the Vent. In Sinus tach.EGD cancelled today Objective Last 24 Hour Vital Signs Date Time Temp Pulse Resp B/P (MAP) Pulse Ox O2 Delivery O2 Flow Rate FiO2 02/19/19 18:00 102 33 100/67 (78) 100 02/19/19 17:30 103 28 99/67 (78) 97 02/19/19 17:12 112 31 40 02/19/19 17:00 103 28 99/67 (78) 97 02/19/19 16:30 103 28 99/67 (78) 97 02/19/19 16:00 Mechanical Ventilator 02/19/19 16:00 40 02/19/19 16:00 99.6 103 28 99/67 (78) 97 02/19/19 16:00 105 02/19/19 15:30 103 28 99/67 (78) 97 02/19/19 15:00 107 28 87/48 (61) 97 02/19/19 14:49 104 30 40 02/19/19 14:30 103 26 98/69 (79) 98 02/19/19 14:00 108 32 100/64 (76) 97 02/19/19 13:30 105 21 99/59 (72) 98 02/19/19 13:00 112/71 02/19/19 13:00 112 32 103/63 (76) 99 02/19/19 12:47 112 35 40 02/19/19 12:30 116 27 103/65 (78) 97 02/19/19 12:00 40 02/19/19 12:00 108 02/19/19 12:00 98.8 109 23 105/73 (84) 99 02/19/19 12:00 Mechanical Ventilator 02/19/19 12:00 103/66 02/19/19 11:30 111 22 88/58 (68) 100 02/19/19 11:30 111 22 88/58 (68) 100 02/19/19 11:00 116 30 88/58 (68) 100 02/19/19 11:00 109/67 02/19/19 10:50 115 32 40 02/19/19 10:30 114 24 100/55 (70) 100 02/19/19 10:04 101/57 02/19/19 10:00 115 31 93/65 (74) 99 02/19/19 09:30 119 18 94/60 (71) 96 02/19/19 09:08 117 32 40 02/19/19 09:00 119 24 93/60 (71) 98 02/19/19 09:00 101/57 02/19/19 08:30 130 34 114/60 (78) 99 02/19/19 08:00 Mechanical Ventilator 02/19/19 08:00 107 02/19/19 08:00 40 02/19/19 08:00 128 26 103/63 (76) 95 02/19/19 08:00 99/61 02/19/19 07:30 105 23 96/61 (73) 100 02/19/19 07:00 94/61 02/19/19 07:00 98.8 106 30 102/62 (75) 100 02/19/19 06:39 103 26 40 02/19/19 06:00 93/61 02/19/19 05:00 102/65 02/19/19 04:56 111 29 40 02/19/19 04:00 107 02/19/19 04:00 Mechanical Ventilator 02/19/19 04:00 101/43 02/19/19 04:00 40 02/19/19 03:08 105 28 40 02/19/19 03:00 102/65 02/19/19 02:00 104/71 02/19/19 01:00 102/63 02/19/19 00:59 108 30 40 02/19/19 00:00 Mechanical Ventilator 02/19/19 00:00 95/60 02/19/19 00:00 40 02/19/19 00:00 101 02/18/19 23:27 104 28 40 02/18/19 23:00 104/67 02/18/19 22:08 103/66 7/14/19 22:00 107/68 02/18/19 21:30 106 26 40 02/18/19 21:00 104/69 02/18/19 20:00 115/74 02/18/19 20:00 Mechanical Ventilator 02/18/19 20:00 117 02/18/19 20:00 40 02/18/19 19:30 110 18 109/70 (83) 98 02/18/19 19:28 106 32 40 02/18/19 19:15 103 28 115/82 (93) 100 02/18/19 19:00 115/82 02/18/19 19:00 104 26 110/74 (86) 100 02/18/19 18:45 98 27 113/74 (87) 100 02/18/19 18:30 103 22 108/76 (87) 100 02/18/19 18:15 98 26 106/74 (85) 100 Intake and Output 02/18/19 02/19/19 18:59 06:59 Intake Total 2184.76 ml 2696.860 ml Output Total 1890 ml 1500 ml Balance 294.76 ml 1196.860 ml IV Total 2184.76 ml 2696.860 ml Output Urine Total 1890 ml 1500 ml Laboratory Tests Test 02/18/19 19:50 02/19/19 04:20 Vancomycin Level Trough 6.4 ug/mL (5.0-12.0) White Blood Count 14.7 K/UL (4.8-10.8) H Red Blood Count 2.45 M/UL (4.70-6.10) L Hemoglobin 8.0 G/DL (14.2-18.0) L Hematocrit 23.4 % (42.0-52.0) L Mean Corpuscular Volume 96 FL (80-99) Mean Corpuscular Hemoglobin 32.9 PG (27.0-31.0) H Mean Corpuscular Hemoglobin Concent 34.4 G/DL (32.0-36.0) Red Cell Distribution Width 14.7 % (11.6-14.8) Platelet Count 40 K/UL (150-450) L Mean Platelet Volume 10.6 FL (6.5-10.1) H Neutrophils (%) (Auto) % (45.0-75.0) Lymphocytes (%) (Auto) % (20.0-45.0) Monocytes (%) (Auto) % (1.0-10.0) Eosinophils (%) (Auto) % (0.0-3.0) Basophils (%) (Auto) % (0.0-2.0) Differential Total Cells Counted 100 Neutrophils % (Manual) 74 % (45-75) Lymphocytes % (Manual) 13 % (20-45) L Monocytes % (Manual) 7 % (1-10) Eosinophils % (Manual) 5 % (0-3) H Basophils % (Manual) 1 % (0-2) Band Neutrophils 0 % (0-8) Platelet Estimate Decreased L Platelet Morphology Normal Hypochromasia 3+ Anisocytosis 1+ Prothrombin Time 13.8 SEC (9.30-11.50) H Prothromb Time International Ratio 1.3 (0.9-1.1) H Sodium Level 141 MMOL/L (136-145) Potassium Level 2.7 MMOL/L (3.5-5.1) *L Chloride Level 107 MMOL/L (98-107) Carbon Dioxide Level 26 MMOL/L (21-32) Anion Gap 9 mmol/L (5-15) Blood Urea Nitrogen 8 mg/dL (7-18) Creatinine 0.8 MG/DL (0.55-1.30) Estimat Glomerular Filtration Rate > 60 mL/min (>60) Glucose Level 160 MG/DL (74-106) H Uric Acid 1.6 MG/DL (2.6-7.2) L Calcium Level 7.0 MG/DL (8.5-10.1) L Phosphorus Level 1.7 MG/DL (2.5-4.9) L Magnesium Level 2.1 MG/DL (1.8-2.4) Total Bilirubin 4.1 MG/DL (0.2-1.0) H Direct Bilirubin 3.3 MG/DL (0.0-0.3) H Gamma Glutamyl Transpeptidase 474 U/L (5-85) H Aspartate Amino Transf (AST/SGOT) 197 U/L (15-37) H Alanine Aminotransferase (ALT/SGPT) 59 U/L (12-78) Alkaline Phosphatase 123 U/L (46-116) H Troponin I 0.051 ng/mL (0.000-0.056) C-Reactive Protein, Quantitative 9.2 mg/dL (0.00-0.90) H Pro-B-Type Natriuretic Peptide 1980 pg/mL (0-125) H Total Protein 4.1 G/DL (6.4-8.2) L Albumin 1.7 G/DL (3.4-5.0) L Globulin 2.4 g/dL Albumin/Globulin Ratio 0.7 (1.0-2.7) L Microbiology Date/Time Source Procedure Growth Status 02/17/19 06:30 Blood Blood Culture - Preliminary Gram Negative Isac Resulted 02/17/19 06:25 Blood Blood Culture - Preliminary Gram Negative Isac Resulted 02/16/19 19:30 Sputum Gram Stain - Final Complete 02/16/19 19:30 Sputum Culture - Final Luciana Albicans Complete Objective HEAD AND NECK: No JVD.Orally intubated with OG tube LUNGS: Decreased breath sounds. CARDIOVASCULAR: Regular S1 and S2 with no gallop or murmur. ABDOMEN: Soft. EXTREMITIES: No pitting edema. Fidencio Trevino MD Feb 19, 2019 18:14
--- NOTE | 2019-02-19 19:22 | NUR ---
HAND-OFF: Report given to ESHA LE.
--- NOTE | 2019-02-19 19:30 | NUR ---
NURSE NOTES: Received report from ESHA Manjarrez. Patient in bed AO X3, nonverbal, eyes open spontaneously, currently intubated ETT8, 24LL, AC26, VT 500, PEEP 5, O2 sat at 100% with 40% FiO2. On Jevity 1.2 at 30ml, goal via OGT. Continuous cardiac monitoring per protocol and noted tachycardia. BP109/69, currently on Levophed 10mcg/min. Also D5 1/2NS with 20meq KCl running at 100ml/hr via newly inserted Right upper arm PICC. Aguilar 18fr draining small amount of reddish urine noted. Safety and seizure precaution in place; siderails X3 up and padded, call light within reach, bed in lowest position and free from clutter, brakes and alarm on at all times, and suction equipment at bedside. Bilateral soft wrist restraints noted, no adverse reactions. Needs and wants anticipated and attended, will continue plan of care and monitor for any changes noted. Will continue to monitor.
[2019-02-19] MEDS: Dyna-Hex 2% Top Sol 2oz TOPIC SCH (20:35)
--- NOTE | 2019-02-19 22:00 | NUR ---
NURSE NOTES: Pt's resting in bed, in no acute distress. VS stable. Will continue to monitor.
[2019-02-19] MEDS: Phenylephrine 50 MG in D5W 245 ML IV SCH (22:30)
[2019-02-20] VITALS (32 sets, daily range): BP systolic 86–150; BP diastolic 52–80
--- NOTE | 2019-02-20 | NUR ---
NURSE NOTES: Pt's resting bed, in no acute distress. VS stable. Will continue to monitor.
--- NOTE | 2019-02-20 03:00 | NUR ---
NURSE NOTES: Pt's resting in bed, in no acute distress. VS stable, BP 121/71, Levophed has been stopped. Will continue to monitor.
--- NOTE | 2019-02-20 05:00 | NUR ---
NURSE NOTES: Pt's resting in bed, in no acute distress, VS stable. Will continue to monitor.
[2019-02-20 05:43] LABS: HEMOGLOBIN 8.9 G/DL (14.2-18.0); MEAN CORPUSCULAR VOLUME 96 FL (80-99); PLATELET COUNT 97 K/UL (150-450); RED CELL DISTRIBUTION WIDTH 15.1 % (11.6-14.8)
[2019-02-20 06:19] LABS: ALANINE AMINOTRANSFERASE 71 U/L (12-78); ALBUMIN 1.8 G/DL (3.4-5.0); ALBUMIN/GLOBULIN RATIO 0.6 (1.0-2.7); ALKALINE PHOSPHATASE 172 U/L (46-116); ANION GAP 8 mmol/L (5-15); ASPARTATE AMINO TRANSFERASE 217 U/L (15-37); BILIRUBIN,TOTAL 5.1 MG/DL (0.2-1.0); BLOOD UREA NITROGEN 6 mg/dL (7-18); CALCIUM 7.2 MG/DL (8.5-10.1); CARBON DIOXIDE 26 MMOL/L (21-32); CHLORIDE 104 MMOL/L (98-107); CREATININE 0.8 MG/DL (0.55-1.30); GAMMA GLUTAMYL TRANSPEPTIDASE 528 U/L (5-85); PHOSPHORUS 1.8 MG/DL (2.5-4.9); POTASSIUM 3.3 MMOL/L (3.5-5.1); SODIUM 138 MMOL/L (136-145)
[2019-02-20 06:21] LABS: WHITE BLOOD COUNT 25.9 K/UL (4.8-10.8)
[2019-02-20] MEDS: Piperacillin/Tazobactam 3.375 GM in NS 110 ML IVPB SCH ×3 (06:28→21:32)
[2019-02-20] MEDS ORDERED: NS 275ml ONE ×3 (06:50→17:21)
[2019-02-20] MEDS ORDERED: Tubing IV Secondary IV ONE ×3 (06:50→17:21)
[2019-02-20 06:54] LABS: BILIRUBIN,DIRECT 4.4 MG/DL (0.0-0.3)
--- NOTE | 2019-02-20 07:08 | NUR ---
RESPIRATORY NOTES: Received Patient on Vent settings ACVC 26, VT 500, FIO2 40%, PEEP +5. Patient has a 7.5 ETT at 24cm at the lip, secured with anchorfast. Bilateral rhonchi noted throughout both lung sheikh. Suction small amount of thin white secretions Q2 and PRN through ETT. Patient currently anxious and restless. Vent alarms are on and audible. Vent plugged into red outlet. Will continue to monitor throughout the day.
--- NOTE | 2019-02-20 07:29 | NUR ---
NURSE NOTES: Report received from ESHA Hunter
--- NOTE | 2019-02-20 07:30 | NUR ---
HAND-OFF: Report given to ESHA Manjarrez.
[2019-02-20] MEDS: Vasopressin 100 UNITS in NS 95 ML IV SCH (07:42)
--- NOTE | 2019-02-20 08:10 | NUR ---
NURSE NOTES: NURSE NOTES: Received patient from ESHA Hunter.Remains ST 103 on the monitor.Low grade fever,cooling measure applied. ETT 8/24cm lip line AC 26 VT500, FiO2 400% Peep 5. Bilateral soft wrist restraint observed removing device, no skin impairment noted at this time.Side rails pads with no episode seizure at this time. OGT in place with placement intact, no residual noted at this time.Running Jevity at 30CC.PIcc BAUDILIO and Levophed drip off at this time.Remains on D51/2 NS at 100cc/hr. Aguilar catheter care in place draining orange like urine with no apparent sediments.Call light in reach at this time.Will continue to monitor.
--- NOTE | 2019-02-20 08:31 | Neurology Progress Note ---
Interim History Interim History ROS Limited/Unobtainable: Yes Interim History alert and following weaning vent and pressors Objective Physical Exam Last Vital Signs Date Time Temp Pulse Resp B/P (MAP) Pulse Ox O2 Delivery O2 Flow Rate FiO2 02/20/19 07:00 99.4 125 23 93/59 (70) 100 02/20/19 06:44 40 02/20/19 04:00 Mechanical Ventilator 02/14/19 15:15 2.0 Laboratory Tests Test 02/20/19 04:30 White Blood Count 25.9 K/UL (4.8-10.8) #*H Red Blood Count 2.70 M/UL (4.70-6.10) L Hemoglobin 8.9 G/DL (14.2-18.0) L Hematocrit 26.0 % (42.0-52.0) L Mean Corpuscular Volume 96 FL (80-99) Mean Corpuscular Hemoglobin 33.1 PG (27.0-31.0) H Mean Corpuscular Hemoglobin Concent 34.3 G/DL (32.0-36.0) Red Cell Distribution Width 15.1 % (11.6-14.8) H Platelet Count 97 K/UL (150-450) #L Mean Platelet Volume 12.0 FL (6.5-10.1) H Neutrophils (%) (Auto) % (45.0-75.0) Lymphocytes (%) (Auto) % (20.0-45.0) Monocytes (%) (Auto) % (1.0-10.0) Eosinophils (%) (Auto) % (0.0-3.0) Basophils (%) (Auto) % (0.0-2.0) Differential Total Cells Counted 100 Neutrophils % (Manual) 72 % (45-75) Lymphocytes % (Manual) 8 % (20-45) L Monocytes % (Manual) 18 % (1-10) H Eosinophils % (Manual) 0 % (0-3) Basophils % (Manual) 0 % (0-2) Band Neutrophils 2 % (0-8) Platelet Estimate Decreased L Platelet Morphology Normal Anisocytosis 1+ Macrocytosis 1+ Sodium Level 138 MMOL/L (136-145) Potassium Level 3.3 MMOL/L (3.5-5.1) L Chloride Level 104 MMOL/L (98-107) Carbon Dioxide Level 26 MMOL/L (21-32) Anion Gap 8 mmol/L (5-15) Blood Urea Nitrogen 6 mg/dL (7-18) L Creatinine 0.8 MG/DL (0.55-1.30) Estimat Glomerular Filtration Rate > 60 mL/min (>60) Glucose Level 124 MG/DL (74-106) H Uric Acid 1.3 MG/DL (2.6-7.2) L Calcium Level 7.2 MG/DL (8.5-10.1) L Phosphorus Level 1.8 MG/DL (2.5-4.9) L Magnesium Level 1.8 MG/DL (1.8-2.4) Total Bilirubin 5.1 MG/DL (0.2-1.0) H Direct Bilirubin 4.4 MG/DL (0.0-0.3) H Gamma Glutamyl Transpeptidase 528 U/L (5-85) H Aspartate Amino Transf (AST/SGOT) 217 U/L (15-37) H Alanine Aminotransferase (ALT/SGPT) 71 U/L (12-78) Alkaline Phosphatase 172 U/L (46-116) H C-Reactive Protein, Quantitative 9.7 mg/dL (0.00-0.90) H Pro-B-Type Natriuretic Peptide 2054 pg/mL (0-125) H Total Protein 5.0 G/DL (6.4-8.2) L Albumin 1.8 G/DL (3.4-5.0) L Globulin 3.2 g/dL Albumin/Globulin Ratio 0.6 (1.0-2.7) L Head: normocophalic Neck: no rigidity EENT: benign Neurologic Exam Cranial Nerves III, IV, : PERRLA Motor System: no involuntary movement Objective pupils 3 mm reactive no nuchal rigidity minimal withdrawal intubated cc time 35 min Impression/Recommendations Problems: (1) Episode of confusion (2) Tachycardia (3) Fever (4) Diarrhea (5) Altered mental status (6) Alcohol withdrawal seizure (7) Oral thrush (8) Electrolyte and fluid disorder (9) Aspiration pneumonia (10) Alcohol withdrawal seizure (11) Non-compliance (12) Seizure disorder Status: doing well, stable Diagnostic Impression seizure due to non compliance septic shock with bacteremia broad sectrum atb sp intubation dilantin 100 mg tid Poor prognosis Myron Estrella MD Feb 20, 2019 08:31
[2019-02-20] MEDS: levETIRAcetam 500mg/NS100ml 100 ML IVPB SCH ×2 (08:35→20:36)
[2019-02-20] MEDS: Pantoprazole Inj IVP SCH ×2 (08:35→20:35)
[2019-02-20] MEDS: Docusate 100mg cap ORAL SCH ×3 (08:35→17:38)
--- NOTE | 2019-02-20 08:55 | Pulmonolgy Critical Care Note ---
Critical Care - Asmt/Plan Problems: (1) Seizure disorder (2) Endotracheally intubated (3) Septic shock (4) Sepsis (5) Sinus tachycardia (6) Lactic acid acidosis (7) High anion gap metabolic acidosis (8) STEFANI (acute kidney injury) (9) Abnormal LFTs (10) Coffee ground emesis (11) Gastrointestinal bleed (12) Altered mental status (13) Alcohol withdrawal seizure (14) Ventilator dependent Assessment/Plan: Continue D51/0BWt28T@100 Replete K and phos Titrate NE to keep MAP > 60, off Vaso Continue Vano/Zosyn/Gent per ID, F/U Cx's F/U GI recs, PPI, EGD when stable Monitor HH and platelets, transfuse as needed Heme eval Monitor for EtOH w/drawal, PRN ativan Continue AEDs, monitor for Sz's, F/U neuro recs FC CCT 35 Critical Care - Objective Last 24 Hour Vital Signs Date Time Temp Pulse Resp B/P (MAP) Pulse Ox O2 Delivery O2 Flow Rate FiO2 02/20/19 07:00 99.4 125 23 93/59 (70) 100 02/20/19 06:44 130 40 40 02/20/19 06:30 129 25 101/61 (74) 100 02/20/19 06:00 129 26 101/55 (70) 100 02/20/19 05:30 128 25 106/52 (70) 100 02/20/19 05:09 132 41 40 02/20/19 05:00 126 25 101/64 (76) 100 02/20/19 04:30 140 28 112/68 (83) 100 02/20/19 04:00 Mechanical Ventilator 02/20/19 04:00 40 02/20/19 04:00 126 02/20/19 04:00 133 27 100/71 (81) 99 02/20/19 03:30 131 23 121/71 (88) 99 02/20/19 03:25 135 31 40 02/20/19 03:00 121/71 02/20/19 03:00 141 34 124/78 (93) 99 02/20/19 02:30 132 36 136/80 (98) 99 02/20/19 02:00 136/80 02/20/19 02:00 133 36 109/72 (84) 98 02/20/19 01:30 132 32 115/76 (89) 99 02/20/19 01:11 133 38 40 02/20/19 01:00 133 25 107/72 (84) 100 02/20/19 01:00 115/76 02/20/19 00:30 122 29 115/71 (86) 99 02/20/19 00:00 120 02/20/19 00:00 40 02/20/19 00:00 Mechanical Ventilator 02/20/19 00:00 115/71 02/20/19 00:00 99.4 120 33 100/59 (73) 100 02/19/19 23:30 119 34 106/65 (79) 94 02/19/19 23:14 116 37 40 02/19/19 23:00 109/66 02/19/19 23:00 117 32 109/66 (80) 100 02/19/19 22:30 113 36 106/67 (80) 99 02/19/19 22:00 111 34 106/68 (81) 100 02/19/19 22:00 106/67 02/19/19 21:30 103 32 40 02/19/19 21:30 112 30 97/67 (77) 100 02/19/19 21:00 109 32 84/62 (69) 99 02/19/19 21:00 97/67 02/19/19 20:30 110 25 95/55 (68) 100 02/19/19 20:00 99.4 104 27 109/69 (82) 100 02/19/19 20:00 40 02/19/19 20:00 100 02/19/19 20:00 95/55 02/19/19 20:00 Mechanical Ventilator 02/19/19 19:07 101 31 40 02/19/19 19:00 96/67 02/19/19 19:00 102 29 96/67 (77) 100 02/19/19 18:30 101 30 98/66 (77) 100 02/19/19 18:00 102 33 100/67 (78) 100 02/19/19 18:00 98/66 02/19/19 17:30 103 28 99/67 (78) 97 02/19/19 17:12 112 31 40 02/19/19 17:00 100/70 02/19/19 17:00 103 28 99/67 (78) 97 02/19/19 16:30 103 28 99/67 (78) 97 02/19/19 16:00 Mechanical Ventilator 02/19/19 16:00 40 02/19/19 16:00 99.6 103 28 99/67 (78) 97 02/19/19 16:00 105 02/19/19 16:00 102/63 02/19/19 15:30 103 28 99/67 (78) 97 02/19/19 15:00 107 28 87/48 (61) 97 02/19/19 15:00 103/68 02/19/19 14:49 104 30 40 02/19/19 14:30 103 26 98/69 (79) 98 02/19/19 14:00 108 32 100/64 (76) 97 02/19/19 14:00 103/64 02/19/19 13:30 105 21 99/59 (72) 98 02/19/19 13:00 112/71 02/19/19 13:00 112 32 103/63 (76) 99 02/19/19 12:47 112 35 40 02/19/19 12:30 116 27 103/65 (78) 97 02/19/19 12:00 40 02/19/19 12:00 108 02/19/19 12:00 98.8 109 23 105/73 (84) 99 02/19/19 12:00 Mechanical Ventilator 02/19/19 12:00 103/66 02/19/19 11:30 111 22 88/58 (68) 100 02/19/19 11:30 111 22 88/58 (68) 100 02/19/19 11:00 116 30 88/58 (68) 100 02/19/19 11:00 109/67 02/19/19 10:50 115 32 40 02/19/19 10:30 114 24 100/55 (70) 100 02/19/19 10:04 101/57 02/19/19 10:00 115 31 93/65 (74) 99 02/19/19 09:30 119 18 94/60 (71) 96 02/19/19 09:08 117 32 40 02/19/19 09:00 119 24 93/60 (71) 98 02/19/19 09:00 101/57 Status: awake - intubated Condition: critical HEENT: atraumatic, other - OGT Lungs: clear Heart: HR/BP stable Abdomen: soft, non-tender, active bowel sounds Extremities: no C/C/E Accucheck: 33 Blood Sugars: BS controlled Critical Care - Subjective ROS Limited/Unobtainable: Yes ICU Day: 6 Intubation Day: 5 Interval Events: TREY WCT inc NE 2 S/P PICC Condition: stable IV Access: PICC EKG Rhythm: Sinus Rhythm FI02: 40 Vent Support Breath Rate: 26 Vent Support Mode: AC Vent Tidal Volume: 500 Sputum Amount: Small PEEP: 5.0 PIP: 41 Fluids: D51/2c20@100 Drips: NE@5 Tube Feeding Amount: 30 I&O: Intake and Output 02/19/19 02/20/19 19:00 07:00 Intake Total 3676.316 ml 2112.640 ml Output Total 1430 ml 1120 ml Balance 2246.316 ml 992.640 ml Free Water 90 ml IV Total 3426.316 ml 1752.640 ml Tube Feeding 160 ml 360 ml Output Urine Total 1430 ml 1120 ml Subjective: [place] ET-Tube: 7.5 ET Position: 24 Labs: Laboratory Tests Test 02/20/19 04:30 White Blood Count 25.9 K/UL (4.8-10.8) #*H Red Blood Count 2.70 M/UL (4.70-6.10) L Hemoglobin 8.9 G/DL (14.2-18.0) L Hematocrit 26.0 % (42.0-52.0) L Mean Corpuscular Volume 96 FL (80-99) Mean Corpuscular Hemoglobin 33.1 PG (27.0-31.0) H Mean Corpuscular Hemoglobin Concent 34.3 G/DL (32.0-36.0) Red Cell Distribution Width 15.1 % (11.6-14.8) H Platelet Count 97 K/UL (150-450) #L Mean Platelet Volume 12.0 FL (6.5-10.1) H Neutrophils (%) (Auto) % (45.0-75.0) Lymphocytes (%) (Auto) % (20.0-45.0) Monocytes (%) (Auto) % (1.0-10.0) Eosinophils (%) (Auto) % (0.0-3.0) Basophils (%) (Auto) % (0.0-2.0) Differential Total Cells Counted 100 Neutrophils % (Manual) 72 % (45-75) Lymphocytes % (Manual) 8 % (20-45) L Monocytes % (Manual) 18 % (1-10) H Eosinophils % (Manual) 0 % (0-3) Basophils % (Manual) 0 % (0-2) Band Neutrophils 2 % (0-8) Platelet Estimate Decreased L Platelet Morphology Normal Anisocytosis 1+ Macrocytosis 1+ Sodium Level 138 MMOL/L (136-145) Potassium Level 3.3 MMOL/L (3.5-5.1) L Chloride Level 104 MMOL/L (98-107) Carbon Dioxide Level 26 MMOL/L (21-32) Anion Gap 8 mmol/L (5-15) Blood Urea Nitrogen 6 mg/dL (7-18) L Creatinine 0.8 MG/DL (0.55-1.30) Estimat Glomerular Filtration Rate > 60 mL/min (>60) Glucose Level 124 MG/DL (74-106) H Uric Acid 1.3 MG/DL (2.6-7.2) L Calcium Level 7.2 MG/DL (8.5-10.1) L Phosphorus Level 1.8 MG/DL (2.5-4.9) L Magnesium Level 1.8 MG/DL (1.8-2.4) Total Bilirubin 5.1 MG/DL (0.2-1.0) H Direct Bilirubin 4.4 MG/DL (0.0-0.3) H Gamma Glutamyl Transpeptidase 528 U/L (5-85) H Aspartate Amino Transf (AST/SGOT) 217 U/L (15-37) H Alanine Aminotransferase (ALT/SGPT) 71 U/L (12-78) Alkaline Phosphatase 172 U/L (46-116) H C-Reactive Protein, Quantitative 9.7 mg/dL (0.00-0.90) H Pro-B-Type Natriuretic Peptide 2054 pg/mL (0-125) H Total Protein 5.0 G/DL (6.4-8.2) L Albumin 1.8 G/DL (3.4-5.0) L Globulin 3.2 g/dL Albumin/Globulin Ratio 0.6 (1.0-2.7) L Han Harris L. MD Feb 20, 2019 08:55
--- NOTE | 2019-02-20 08:55 | NUR ---
RESPIRATORY NOTE: Weaning started at 0855. Patient placed on PS 14 PEEP +5 FIO2 40% by Dr. Harris. Patient struggling on PS; RR >45 HR> 120 BPM however will continue to keep on PS per Dr. Harris. Josseline BALBUENA aware.
[2019-02-20] MEDS ORDERED: Folic Acid 1 MG, Magnesium Sulfate 2,000 MG, Multivitamin - 12 Injection 10 ML in Sodiu... IV SCH (09:00)
--- NOTE | 2019-02-20 09:08 | NUR ---
NURSE NOTES: Seen by Dr Harris and placed on CPAP PS 14, tolerated fairly well, will continue to monitor, mouth care done
--- NOTE | 2019-02-20 09:18 | Hematology/Onc Progress Note ---
Assessment/Plan Assessment/Plan # Bicytopenia with anemia likely due to Gi bleed -- stool occult blood +, requires further eval with gi, also with etoh withdrawal, also can be related to meds/abx --> anemia panel has been reviewed and results are acd --> peripheral smear reviewed and noted to have blasts --> STAT FLOW CYTOMETRY ordered because of blasts/myelocytes/metas on the smear (rule out leukemia) --> wbc is better at this time, could be related to infection, gram neg --> monitor for etoh withdrawal # Anemia of chronic disease, per anemia panel --> hgb trend 8-->7-->8-->9 --> may require gi eval when more stable with scope (EGD) --> transfuse if hb <7 # Sinus tachycardia up to 170s. No evidence of acute myocardial infarction . --> This is likely due to sepsis and anemia and alcohol withdrawal. Echo Nl EF 60% # Leukocytosis due to Septic shock and severe Lactic acidosis on Levophed and broad-spectrum IV antibiotics. --> per ID care, continue abx --> review flow --> pressor as needed # Troponin leak. Type 2. --> per cards # Respiratory failure on the vent. Failed weaning --> sbt trial per pulm # ETOH withdrawal # Seizures with noncompliance. Greatly appreciate consultation. Subjective Constitutional: Denies: no symptoms, chills, fever, malaise, weakness, other HEENT: Denies: no symptoms, eye pain, blurred vision, tearing, double vision, ear pain, ear discharge, nose pain, nose congestion, throat pain, throat swelling, mouth pain, mouth swelling, other Cardiovascular: Denies: no symptoms, chest pain, edema, irregular heart rate, lightheadedness, palpitations, syncope, other Respiratory: Denies: no symptoms, cough, shortness of breath, SOB with excertion, SOB at rest, sputum, wheezing, other Gastrointestinal/Abdominal: Denies: no symptoms, abdomen distended, abdominal pain, black stools, tarry stools, blood in stool, constipated, diarrhea, difficulty swallowing, nausea, poor appetite, poor fluid intake, rectal bleeding , vomiting, other Neurologic/Psychiatric: Denies: no symptoms, anxiety, depressed, emotional problems, headache, numbness, paresthesia, pre-existing deficit, seizure, tingling, tremors, weakness, other Endocrine: Denies: no symptoms, excessive sweating, flushing, intolerance to cold, intolerance to heat, increased hunger, increased thirst, increased urine, unexplained weight gain, unexplained weight loss, other Allergies: Coded Allergies: No Known Allergies (Unverified , 02/10/15) Subjective 02/20: intubated, counts are better, on vent, sbt in process, no f/c, mag low Objective Objective Current Medications Medications (Trade) Dose Ordered Sig/Tonny Route PRN Reason Start Time Stop Time Status Last Admin Dose Admin Acetaminophen (Tylenol) 650 mg Q4H PRN ORAL Mild Pain (Pain Scale 1-3) 02/16/19 00:30 03/16/19 12:29 02/17/19 04:53 Acetaminophen (Tylenol) 650 mg Q4H PRN RECTAL Mild Pain (Pain Scale 1-3) 02/16/19 04:30 03/18/19 04:29 02/16/19 04:31 Bisacodyl (Dulcolax) 10 mg HSPRN PRN RECTAL Constipation 02/16/19 21:00 03/16/19 20:59 Chlorhexidine Gluconate (Stephanie-Hex 2%) 1 applic DAILY@2000 TOPIC 02/19/19 20:00 03/21/19 19:59 02/19/19 20:35 Dextrose (Dextrose 50%) 25 ml Q30M PRN IV Hypoglycemia 02/15/19 22:15 03/16/19 16:14 Dextrose (Dextrose 50%) 50 ml Q30M PRN IV Hypoglycemia 02/15/19 22:15 03/16/19 16:14 02/16/19 06:32 Dextrose/ Electrolytes 1,000 ml @ 100 mls/hr Q10H IV 02/19/19 18:00 03/21/19 17:59 02/19/19 23:02 Docusate Sodium (Colace) 100 mg TID ORAL 02/16/19 18:00 03/16/19 20:59 02/20/19 08:35 Gentamicin Protocol (Gentamicin pharmacy to dose) 1 ea DAILY PRN MISC Per rx protocol 02/16/19 18:00 03/18/19 17:59 Gentamicin Sulfate 350 mg/ Sodium Chloride 118.75 ml @ 237.5 mls/hr Q24H IVPB 02/20/19 17:00 02/27/19 16:59 Levetiracetam 100 ml @ 400 mls/hr Q12HR IVPB 02/19/19 09:00 03/21/19 08:59 02/20/19 08:35 Lorazepam (Ativan 2mg/ml 1ml) 1 mg Q2H PRN IV For Anxiety 02/16/19 09:00 02/23/19 08:59 02/16/19 10:46 Lorazepam (Ativan 2mg/ml 1ml) 1 mg Q4H PRN IV For Seizures 02/16/19 00:15 02/23/19 00:14 02/19/19 11:03 Norepinephrine Bitartrate 8 mg/ Dextrose 508 ml @ 0 mls/hr Q24H IV 02/16/19 09:30 03/18/19 09:29 02/19/19 10:04 Ondansetron HCl (Zofran) 4 mg Q6H PRN IVP Nausea & Vomiting 02/16/19 01:00 03/16/19 12:59 Pantoprazole (Protonix) 40 mg EVERY 12 HOURS IVP 02/16/19 09:00 03/18/19 08:59 02/20/19 08:35 Phenylephrine HCl 50 mg/Dextrose 250 ml @ 0 mls/hr Q24H IV 02/16/19 22:30 03/18/19 22:29 Piperacillin Sod/ Tazobactam Sod 3.375 gm/Sodium Chloride 110 ml @ 27.5 mls/hr Q8HR IVPB 02/18/19 14:00 02/25/19 13:59 02/20/19 06:28 Potassium Phosphate 30 mm/ Sodium Chloride 285 ml @ 47.5 mls/hr ONCE IV 02/20/19 10:00 02/20/19 16:00 Thiamine HCl 100 mg/Dextrose 56 ml @ 112 mls/hr Q24H IVPB 02/16/19 09:00 03/18/19 08:59 02/19/19 08:50 Vancomycin HCl (Vanco rx to dose) 1 ea DAILY PRN MISC Per rx protocol 02/16/19 09:00 03/17/19 12:59 Vancomycin HCl 1 gm/Dextrose 275 ml @ 183.708 mls/hr Q12HR@1000,2200 IVPB 02/18/19 22:00 02/23/19 21:59 02/19/19 22:58 Vasopressin 100 units/Sodium Chloride 100 ml @ 0 mls/hr Q24H IV 02/16/19 08:15 03/18/19 08:14 02/16/19 08:15 Last 24 Hour Vital Signs Date Time Temp Pulse Resp B/P (MAP) Pulse Ox O2 Delivery O2 Flow Rate FiO2 02/20/19 07:00 99.4 125 23 93/59 (70) 100 02/20/19 06:44 130 40 40 02/20/19 06:30 129 25 101/61 (74) 100 02/20/19 06:00 129 26 101/55 (70) 100 02/20/19 05:30 128 25 106/52 (70) 100 02/20/19 05:09 132 41 40 02/20/19 05:00 126 25 101/64 (76) 100 02/20/19 04:30 140 28 112/68 (83) 100 02/20/19 04:00 Mechanical Ventilator 02/20/19 04:00 40 02/20/19 04:00 126 02/20/19 04:00 133 27 100/71 (81) 99 02/20/19 03:30 131 23 121/71 (88) 99 02/20/19 03:25 135 31 40 02/20/19 03:00 121/71 02/20/19 03:00 141 34 124/78 (93) 99 02/20/19 02:30 132 36 136/80 (98) 99 02/20/19 02:00 136/80 02/20/19 02:00 133 36 109/72 (84) 98 02/20/19 01:30 132 32 115/76 (89) 99 02/20/19 01:11 133 38 40 02/20/19 01:00 133 25 107/72 (84) 100 02/20/19 01:00 115/76 02/20/19 00:30 122 29 115/71 (86) 99 02/20/19 00:00 120 02/20/19 00:00 40 02/20/19 00:00 Mechanical Ventilator 02/20/19 00:00 115/71 02/20/19 00:00 99.4 120 33 100/59 (73) 100 02/19/19 23:30 119 34 106/65 (79) 94 02/19/19 23:14 116 37 40 02/19/19 23:00 109/66 02/19/19 23:00 117 32 109/66 (80) 100 02/19/19 22:30 113 36 106/67 (80) 99 02/19/19 22:00 111 34 106/68 (81) 100 02/19/19 22:00 106/67 02/19/19 21:30 103 32 40 02/19/19 21:30 112 30 97/67 (77) 100 02/19/19 21:00 109 32 84/62 (69) 99 02/19/19 21:00 97/67 02/19/19 20:30 110 25 95/55 (68) 100 02/19/19 20:00 99.4 104 27 109/69 (82) 100 02/19/19 20:00 40 02/19/19 20:00 100 02/19/19 20:00 95/55 02/19/19 20:00 Mechanical Ventilator 02/19/19 19:07 101 31 40 02/19/19 19:00 96/67 02/19/19 19:00 102 29 96/67 (77) 100 02/19/19 18:30 101 30 98/66 (77) 100 02/19/19 18:00 102 33 100/67 (78) 100 02/19/19 18:00 98/66 02/19/19 17:30 103 28 99/67 (78) 97 02/19/19 17:12 112 31 40 02/19/19 17:00 100/70 02/19/19 17:00 103 28 99/67 (78) 97 02/19/19 16:30 103 28 99/67 (78) 97 02/19/19 16:00 Mechanical Ventilator 02/19/19 16:00 40 02/19/19 16:00 99.6 103 28 99/67 (78) 97 02/19/19 16:00 105 02/19/19 16:00 102/63 02/19/19 15:30 103 28 99/67 (78) 97 02/19/19 15:00 107 28 87/48 (61) 97 02/19/19 15:00 103/68 02/19/19 14:49 104 30 40 02/19/19 14:30 103 26 98/69 (79) 98 02/19/19 14:00 108 32 100/64 (76) 97 02/19/19 14:00 103/64 02/19/19 13:30 105 21 99/59 (72) 98 02/19/19 13:00 112/71 02/19/19 13:00 112 32 103/63 (76) 99 02/19/19 12:47 112 35 40 02/19/19 12:30 116 27 103/65 (78) 97 02/19/19 12:00 40 02/19/19 12:00 108 02/19/19 12:00 98.8 109 23 105/73 (84) 99 02/19/19 12:00 Mechanical Ventilator 02/19/19 12:00 103/66 02/19/19 11:30 111 22 88/58 (68) 100 02/19/19 11:30 111 22 88/58 (68) 100 02/19/19 11:00 116 30 88/58 (68) 100 02/19/19 11:00 109/67 02/19/19 10:50 115 32 40 02/19/19 10:30 114 24 100/55 (70) 100 02/19/19 10:04 101/57 02/19/19 10:00 115 31 93/65 (74) 99 02/19/19 09:30 119 18 94/60 (71) 96 02/19/19 09:08 117 32 40 02/19/19 09:00 119 24 93/60 (71) 98 02/19/19 09:00 101/57 02/19/19 08:30 130 34 114/60 (78) 99 02/19/19 08:00 Mechanical Ventilator 02/19/19 08:00 107 02/19/19 08:00 40 02/19/19 08:00 128 26 103/63 (76) 95 02/19/19 08:00 99/61 02/19/19 07:30 105 23 96/61 (73) 100 02/19/19 07:00 94/61 02/19/19 07:00 98.8 106 30 102/62 (75) 100 02/19/19 06:39 103 26 40 02/19/19 06:00 93/61 02/19/19 05:00 102/65 02/19/19 04:56 111 29 40 02/19/19 04:00 107 02/19/19 04:00 Mechanical Ventilator 02/19/19 04:00 101/43 02/19/19 04:00 40 02/19/19 03:08 105 28 40 02/19/19 03:00 102/65 02/19/19 02:00 104/71 02/19/19 01:00 102/63 02/19/19 00:59 108 30 40 02/19/19 00:00 Mechanical Ventilator 02/19/19 00:00 95/60 02/19/19 00:00 40 02/19/19 00:00 101 02/18/19 23:27 104 28 40 02/18/19 23:00 104/67 02/18/19 22:08 103/66 02/18/19 22:00 107/68 02/18/19 21:30 106 26 40 02/18/19 21:00 104/69 02/18/19 20:00 115/74 02/18/19 20:00 Mechanical Ventilator 02/18/19 20:00 117 02/18/19 20:00 40 02/18/19 19:30 110 18 109/70 (83) 98 02/18/19 19:28 106 32 40 02/18/19 19:15 103 28 115/82 (93) 100 02/18/19 19:00 115/82 02/18/19 19:00 104 26 110/74 (86) 100 02/18/19 18:45 98 27 113/74 (87) 100 02/18/19 18:30 103 22 108/76 (87) 100 02/18/19 18:15 98 26 106/74 (85) 100 02/18/19 18:00 100 27 111/78 (89) 78 02/18/19 18:00 106/74 02/18/19 17:45 102 25 119/75 (90) 02/18/19 17:30 101 29 107/73 (84) 02/18/19 17:25 107 30 40 02/18/19 17:15 109 28 118/79 (92) 63 02/18/19 17:00 118/79 02/18/19 17:00 106 28 107/71 (83) 02/18/19 16:45 113 29 109/73 (85) 81 02/18/19 16:30 115 15 100/73 (82) 100 02/18/19 16:15 101 27 104/71 (82) 99 02/18/19 16:00 101 02/18/19 16:00 40 02/18/19 16:00 Mechanical Ventilator 02/18/19 16:00 104/69 02/18/19 16:00 98.8 104 29 108/71 (83) 98 02/18/19 15:45 101 26 104/69 (81) 100 02/18/19 15:30 104 27 100/62 (75) 100 02/18/19 15:15 119 28 112/69 (83) 97 02/18/19 15:14 109 30 40 02/18/19 15:00 119 28 108/66 (80) 96 02/18/19 15:00 112/69 02/18/19 14:45 103 26 101/66 (78) 100 02/18/19 14:30 105 26 105/66 (79) 100 02/18/19 14:15 107 26 101/66 (78) 100 02/18/19 14:00 118 23 107/63 (78) 95 02/18/19 14:00 101/66 02/18/19 13:45 105 27 98/67 (77) 100 02/18/19 13:30 106 27 105/65 (78) 100 02/18/19 13:18 114 30 40 02/18/19 13:15 113 26 101/63 (76) 100 02/18/19 13:04 98/61 02/18/19 13:00 118 24 108/61 (77) 99 02/18/19 13:00 101/63 02/18/19 12:45 107 26 98/61 (73) 100 02/18/19 12:30 108 27 98/61 (73) 100 02/18/19 12:15 115 31 108/64 (79) 100 02/18/19 12:06 98.5 115 27 106/64 (78) 99 02/18/19 12:00 Mechanical Ventilator 02/18/19 12:00 107 02/18/19 12:00 98/61 02/18/19 12:00 40 02/18/19 11:45 112 27 99/62 (74) 99 02/18/19 11:30 109 26 98/59 (72) 100 02/18/19 11:15 113 28 107/65 (79) 100 02/18/19 11:00 107/65 02/18/19 11:00 112 28 107/66 (80) 100 02/18/19 10:45 116 23 105/68 (80) 99 02/18/19 10:43 117 32 40 02/18/19 10:30 118 30 100/63 (75) 99 02/18/19 10:15 125 30 108/62 (77) 98 02/18/19 10:00 99.1 125 24 102/60 (74) 98 02/18/19 10:00 108/62 02/18/19 09:45 127 33 103/64 (77) 99 02/18/19 09:30 127 31 104/62 (76) 99 02/18/19 09:15 118 29 99/63 (75) 100 Intake and Output 02/19/19 02/20/19 19:00 07:00 Intake Total 3676.316 ml 2112.640 ml Output Total 1430 ml 1120 ml Balance 2246.316 ml 992.640 ml Free Water 90 ml IV Total 3426.316 ml 1752.640 ml Tube Feeding 160 ml 360 ml Output Urine Total 1430 ml 1120 ml Labs Test 02/17/19 09:25 02/17/19 11:07 02/17/19 11:50 02/17/19 13:07 Phosphorus Level < 0.5 MG/DL (2.5-4.9) Arterial Blood pH 7.570 (7.350-7.450) Arterial Blood Partial Pressure CO2 28.7 mmHg (35.0-45.0) Arterial Blood Partial Pressure O2 68.5 mmHg (75.0-100.0) Arterial Blood HCO3 26.1 mmol/L (22.0-26.0) Arterial Blood Oxygen Saturation 95.2 % (95-100) Arterial Blood Base Excess 4.0 (-2-2) Cesar Test Positive Lactic Acid Level 2.90 mmol/L (0.66-2.22) 3.00 mmol/L (0.4-2.0) Test 02/17/19 18:24 02/18/19 05:00 02/18/19 10:22 02/18/19 19:50 White Blood Count 15.2 K/UL (4.8-10.8) 13.2 K/UL (4.8-10.8) Red Blood Count 2.36 M/UL (4.70-6.10) 2.23 M/UL (4.70-6.10) Hemoglobin 7.8 G/DL (14.2-18.0) 7.3 G/DL (14.2-18.0) Hematocrit 22.7 % (42.0-52.0) 21.7 % (42.0-52.0) Mean Corpuscular Volume 96 FL (80-99) 98 FL (80-99) Mean Corpuscular Hemoglobin 32.9 PG (27.0-31.0) 32.9 PG (27.0-31.0) Mean Corpuscular Hemoglobin Concent 34.2 G/DL (32.0-36.0) 33.7 G/DL (32.0-36.0) Red Cell Distribution Width 13.2 % (11.6-14.8) 13.9 % (11.6-14.8) Platelet Count 44 K/UL (150-450) 40 K/UL (150-450) Mean Platelet Volume 8.8 FL (6.5-10.1) 9.5 FL (6.5-10.1) Neutrophils (%) (Auto) % (45.0-75.0) % (45.0-75.0) Lymphocytes (%) (Auto) % (20.0-45.0) % (20.0-45.0) Monocytes (%) (Auto) % (1.0-10.0) % (1.0-10.0) Eosinophils (%) (Auto) % (0.0-3.0) % (0.0-3.0) Basophils (%) (Auto) % (0.0-2.0) % (0.0-2.0) Differential Total Cells Counted 100 100 Neutrophils % (Manual) 56 % (45-75) 43 % (45-75) Lymphocytes % (Manual) 13 % (20-45) 16 % (20-45) Monocytes % (Manual) 9 % (1-10) 21 % (1-10) Eosinophils % (Manual) 2 % (0-3) 0 % (0-3) Basophils % (Manual) 1 % (0-2) 0 % (0-2) Band Neutrophils 19 % (0-8) 20 % (0-8) Platelet Estimate Decreased Decreased Platelet Morphology Normal Hypochromasia 1+ 1+ Anisocytosis 1+ Lactic Acid Level 2.60 mmol/L (0.4-2.0) 2.80 mmol/L (0.4-2.0) 2.20 mmol/L (0.66-2.22) Giant Platelets Rare Macrocytosis 1+ Sodium Level 149 MMOL/L (136-145) Potassium Level 2.9 MMOL/L (3.5-5.1) Chloride Level 113 MMOL/L (98-107) Carbon Dioxide Level 30 MMOL/L (21-32) Anion Gap 6 mmol/L (5-15) Blood Urea Nitrogen 16 mg/dL (7-18) Creatinine 0.9 MG/DL (0.55-1.30) Estimat Glomerular Filtration Rate > 60 mL/min (>60) Glucose Level 164 MG/DL (74-106) Uric Acid 2.0 MG/DL (2.6-7.2) Calcium Level 7.3 MG/DL (8.5-10.1) Phosphorus Level 1.1 MG/DL (2.5-4.9) Magnesium Level 1.6 MG/DL (1.8-2.4) Total Bilirubin 3.7 MG/DL (0.2-1.0) Direct Bilirubin 2.8 MG/DL (0.0-0.3) Aspartate Amino Transf (AST/SGOT) 153 U/L (15-37) Alanine Aminotransferase (ALT/SGPT) 40 U/L (12-78) Alkaline Phosphatase 95 U/L (46-116) Troponin I 0.069 ng/mL (0.000-0.056) C-Reactive Protein, Quantitative 9.6 mg/dL (0.00-0.90) Pro-B-Type Natriuretic Peptide 1697 pg/mL (0-125) Total Protein 4.4 G/DL (6.4-8.2) Albumin 1.6 G/DL (3.4-5.0) Globulin 2.8 g/dL Albumin/Globulin Ratio 0.6 (1.0-2.7) Random Gentamicin Level 2.0 ug/mL Vancomycin Level Trough 6.4 ug/mL (5.0-12.0) Test 02/19/19 04:20 02/20/19 04:30 02/20/19 08:50 White Blood Count 14.7 K/UL (4.8-10.8) 25.9 K/UL (4.8-10.8) Red Blood Count 2.45 M/UL (4.70-6.10) 2.70 M/UL (4.70-6.10) Hemoglobin 8.0 G/DL (14.2-18.0) 8.9 G/DL (14.2-18.0) Hematocrit 23.4 % (42.0-52.0) 26.0 % (42.0-52.0) Mean Corpuscular Volume 96 FL (80-99) 96 FL (80-99) Mean Corpuscular Hemoglobin 32.9 PG (27.0-31.0) 33.1 PG (27.0-31.0) Mean Corpuscular Hemoglobin Concent 34.4 G/DL (32.0-36.0) 34.3 G/DL (32.0-36.0) Red Cell Distribution Width 14.7 % (11.6-14.8) 15.1 % (11.6-14.8) Platelet Count 40 K/UL (150-450) 97 K/UL (150-450) Mean Platelet Volume 10.6 FL (6.5-10.1) 12.0 FL (6.5-10.1) Neutrophils (%) (Auto) % (45.0-75.0) % (45.0-75.0) Lymphocytes (%) (Auto) % (20.0-45.0) % (20.0-45.0) Monocytes (%) (Auto) % (1.0-10.0) % (1.0-10.0) Eosinophils (%) (Auto) % (0.0-3.0) % (0.0-3.0) Basophils (%) (Auto) % (0.0-2.0) % (0.0-2.0) Differential Total Cells Counted 100 100 Neutrophils % (Manual) 74 % (45-75) 72 % (45-75) Lymphocytes % (Manual) 13 % (20-45) 8 % (20-45) Monocytes % (Manual) 7 % (1-10) 18 % (1-10) Eosinophils % (Manual) 5 % (0-3) 0 % (0-3) Basophils % (Manual) 1 % (0-2) 0 % (0-2) Band Neutrophils 0 % (0-8) 2 % (0-8) Platelet Estimate Decreased Decreased Platelet Morphology Normal Normal Hypochromasia 3+ Anisocytosis 1+ 1+ Prothrombin Time 13.8 SEC (9.30-11.50) Prothromb Time International Ratio 1.3 (0.9-1.1) Sodium Level 141 MMOL/L (136-145) 138 MMOL/L (136-145) Potassium Level 2.7 MMOL/L (3.5-5.1) 3.3 MMOL/L (3.5-5.1) Chloride Level 107 MMOL/L (98-107) 104 MMOL/L (98-107) Carbon Dioxide Level 26 MMOL/L (21-32) 26 MMOL/L (21-32) Anion Gap 9 mmol/L (5-15) 8 mmol/L (5-15) Blood Urea Nitrogen 8 mg/dL (7-18) 6 mg/dL (7-18) Creatinine 0.8 MG/DL (0.55-1.30) 0.8 MG/DL (0.55-1.30) Estimat Glomerular Filtration Rate > 60 mL/min (>60) > 60 mL/min (>60) Glucose Level 160 MG/DL (74-106) 124 MG/DL (74-106) Uric Acid 1.6 MG/DL (2.6-7.2) 1.3 MG/DL (2.6-7.2) Calcium Level 7.0 MG/DL (8.5-10.1) 7.2 MG/DL (8.5-10.1) Phosphorus Level 1.7 MG/DL (2.5-4.9) 1.8 MG/DL (2.5-4.9) Magnesium Level 2.1 MG/DL (1.8-2.4) 1.8 MG/DL (1.8-2.4) Total Bilirubin 4.1 MG/DL (0.2-1.0) 5.1 MG/DL (0.2-1.0) Direct Bilirubin 3.3 MG/DL (0.0-0.3) 4.4 MG/DL (0.0-0.3) Gamma Glutamyl Transpeptidase 474 U/L (5-85) 528 U/L (5-85) Aspartate Amino Transf (AST/SGOT) 197 U/L (15-37) 217 U/L (15-37) Alanine Aminotransferase (ALT/SGPT) 59 U/L (12-78) 71 U/L (12-78) Alkaline Phosphatase 123 U/L (46-116) 172 U/L (46-116) Troponin I 0.051 ng/mL (0.000-0.056) C-Reactive Protein, Quantitative 9.2 mg/dL (0.00-0.90) 9.7 mg/dL (0.00-0.90) Pro-B-Type Natriuretic Peptide 1980 pg/mL (0-125) 2054 pg/mL (0-125) Total Protein 4.1 G/DL (6.4-8.2) 5.0 G/DL (6.4-8.2) Albumin 1.7 G/DL (3.4-5.0) 1.8 G/DL (3.4-5.0) Globulin 2.4 g/dL 3.2 g/dL Albumin/Globulin Ratio 0.7 (1.0-2.7) 0.6 (1.0-2.7) Macrocytosis 1+ Height (Feet): 5 Height (Inches): 5.00 Weight (Pounds): 182 Objective Gen: NAD HEENT: atraumatic, other - OGT Lungs: clear ++ vent Heart: HR/BP stable Abdomen: soft, non-tender, active bowel sounds Extremities: no cce Robert Johnston MD Feb 20, 2019 09:18
--- NOTE | 2019-02-20 09:51 | GI Progress Note ---
Assessment/Plan Problems: (1) Coffee ground emesis ICD Codes: K92.0 - Hematemesis SNOMED: 09141763 (2) Episode of confusion ICD Codes: R41.0 - Disorientation, unspecified SNOMED: 42883548 (3) Gastrointestinal bleed ICD Codes: K92.2 - Gastrointestinal hemorrhage, unspecified SNOMED: 73872573 (4) Abnormal LFTs ICD Codes: R94.5 - Abnormal results of liver function studies SNOMED: 470836712 (5) Diarrhea ICD Codes: R19.7 - Diarrhea, unspecified SNOMED: 87712911 (6) Electrolyte and fluid disorder ICD Codes: E87.8 - Other disorders of electrolyte and fluid balance, not elsewhere classified SNOMED: 91363917 (7) Sepsis ICD Codes: A41.9 - Sepsis, unspecified organism SNOMED: 57785425 Status: unchanged Status Narrative Discussed with Dr. Bloom. Assessment/Plan black stools per nurses drop in H&H positive stool ob EGD cancelled, will need endoscopy when stable. WBC jump to 25.9 ppi IV Q 12 monitor H&H Follow-up ID recommendations given leukocytosis monitor H&H, prn transfusions IV hydration plus electrolyte correction fu labs Vit k The patient was seen and examined at bedside and all new and available data was reviewed in the patients chart. I agree with the above findings, impression and plan. (Patient seen earlier today. Signature stamp does not reflect patient encounter time.). - Jones Bloom MD Subjective Subjective limited Objective Last 24 Hour Vital Signs Date Time Temp Pulse Resp B/P (MAP) Pulse Ox O2 Delivery O2 Flow Rate FiO2 02/20/19 09:00 120 38 101/62 (75) 100 02/20/19 08:55 117 39 102/58 (73) 100 02/20/19 08:00 121 26 86/59 (68) 99 02/20/19 08:00 Mechanical Ventilator 02/20/19 08:00 40 02/20/19 07:00 99.4 125 23 93/59 (70) 100 02/20/19 06:44 130 40 40 02/20/19 06:30 129 25 101/61 (74) 100 02/20/19 06:00 129 26 101/55 (70) 100 02/20/19 05:30 128 25 106/52 (70) 100 02/20/19 05:09 132 41 40 02/20/19 05:00 126 25 101/64 (76) 100 02/20/19 04:30 140 28 112/68 (83) 100 02/20/19 04:00 Mechanical Ventilator 02/20/19 04:00 40 02/20/19 04:00 126 02/20/19 04:00 133 27 100/71 (81) 99 02/20/19 03:30 131 23 121/71 (88) 99 02/20/19 03:25 135 31 40 02/20/19 03:00 121/71 02/20/19 03:00 141 34 124/78 (93) 99 02/20/19 02:30 132 36 136/80 (98) 99 02/20/19 02:00 136/80 02/20/19 02:00 133 36 109/72 (84) 98 02/20/19 01:30 132 32 115/76 (89) 99 02/20/19 01:11 133 38 40 02/20/19 01:00 133 25 107/72 (84) 100 02/20/19 01:00 115/76 02/20/19 00:30 122 29 115/71 (86) 99 02/20/19 00:00 120 02/20/19 00:00 40 02/20/19 00:00 Mechanical Ventilator 02/20/19 00:00 115/71 02/20/19 00:00 99.4 120 33 100/59 (73) 100 02/19/19 23:30 119 34 106/65 (79) 94 02/19/19 23:14 116 37 40 02/19/19 23:00 109/66 02/19/19 23:00 117 32 109/66 (80) 100 02/19/19 22:30 113 36 106/67 (80) 99 02/19/19 22:00 111 34 106/68 (81) 100 02/19/19 22:00 106/67 02/19/19 21:30 103 32 40 02/19/19 21:30 112 30 97/67 (77) 100 02/19/19 21:00 109 32 84/62 (69) 99 02/19/19 21:00 97/67 02/19/19 20:30 110 25 95/55 (68) 100 02/19/19 20:00 99.4 104 27 109/69 (82) 100 02/19/19 20:00 40 02/19/19 20:00 100 02/19/19 20:00 95/55 02/19/19 20:00 Mechanical Ventilator 02/19/19 19:07 101 31 40 02/19/19 19:00 96/67 02/19/19 19:00 102 29 96/67 (77) 100 02/19/19 18:30 101 30 98/66 (77) 100 02/19/19 18:00 102 33 100/67 (78) 100 02/19/19 18:00 98/66 02/19/19 17:30 103 28 99/67 (78) 97 02/19/19 17:12 112 31 40 02/19/19 17:00 100/70 02/19/19 17:00 103 28 99/67 (78) 97 02/19/19 16:30 103 28 99/67 (78) 97 02/19/19 16:00 Mechanical Ventilator 02/19/19 16:00 40 02/19/19 16:00 99.6 103 28 99/67 (78) 97 02/19/19 16:00 105 02/19/19 16:00 102/63 02/19/19 15:30 103 28 99/67 (78) 97 02/19/19 15:00 107 28 87/48 (61) 97 02/19/19 15:00 103/68 02/19/19 14:49 104 30 40 02/19/19 14:30 103 26 98/69 (79) 98 02/19/19 14:00 108 32 100/64 (76) 97 02/19/19 14:00 103/64 02/19/19 13:30 105 21 99/59 (72) 98 02/19/19 13:00 112/71 02/19/19 13:00 112 32 103/63 (76) 99 02/19/19 12:47 112 35 40 02/19/19 12:30 116 27 103/65 (78) 97 02/19/19 12:00 40 02/19/19 12:00 108 02/19/19 12:00 98.8 109 23 105/73 (84) 99 02/19/19 12:00 Mechanical Ventilator 02/19/19 12:00 103/66 02/19/19 11:30 111 22 88/58 (68) 100 02/19/19 11:30 111 22 88/58 (68) 100 02/19/19 11:00 116 30 88/58 (68) 100 02/19/19 11:00 109/67 02/19/19 10:50 115 32 40 02/19/19 10:30 114 24 100/55 (70) 100 02/19/19 10:04 101/57 02/19/19 10:00 115 31 93/65 (74) 99 Intake and Output 02/19/19 02/20/19 19:00 07:00 Intake Total 3676.316 ml 2112.640 ml Output Total 1430 ml 1120 ml Balance 2246.316 ml 992.640 ml Free Water 90 ml IV Total 3426.316 ml 1752.640 ml Tube Feeding 160 ml 360 ml Output Urine Total 1430 ml 1120 ml Laboratory Tests Test 02/20/19 04:30 02/20/19 08:50 White Blood Count 25.9 K/UL (4.8-10.8) #*H Red Blood Count 2.70 M/UL (4.70-6.10) L Hemoglobin 8.9 G/DL (14.2-18.0) L Hematocrit 26.0 % (42.0-52.0) L Mean Corpuscular Volume 96 FL (80-99) Mean Corpuscular Hemoglobin 33.1 PG (27.0-31.0) H Mean Corpuscular Hemoglobin Concent 34.3 G/DL (32.0-36.0) Red Cell Distribution Width 15.1 % (11.6-14.8) H Platelet Count 97 K/UL (150-450) #L Mean Platelet Volume 12.0 FL (6.5-10.1) H Neutrophils (%) (Auto) % (45.0-75.0) Lymphocytes (%) (Auto) % (20.0-45.0) Monocytes (%) (Auto) % (1.0-10.0) Eosinophils (%) (Auto) % (0.0-3.0) Basophils (%) (Auto) % (0.0-2.0) Differential Total Cells Counted 100 Neutrophils % (Manual) 72 % (45-75) Lymphocytes % (Manual) 8 % (20-45) L Monocytes % (Manual) 18 % (1-10) H Eosinophils % (Manual) 0 % (0-3) Basophils % (Manual) 0 % (0-2) Band Neutrophils 2 % (0-8) Platelet Estimate Decreased L Platelet Morphology Normal Anisocytosis 1+ Macrocytosis 1+ Sodium Level 138 MMOL/L (136-145) Potassium Level 3.3 MMOL/L (3.5-5.1) L Chloride Level 104 MMOL/L (98-107) Carbon Dioxide Level 26 MMOL/L (21-32) Anion Gap 8 mmol/L (5-15) Blood Urea Nitrogen 6 mg/dL (7-18) L Creatinine 0.8 MG/DL (0.55-1.30) Estimat Glomerular Filtration Rate > 60 mL/min (>60) Glucose Level 124 MG/DL (74-106) H Uric Acid 1.3 MG/DL (2.6-7.2) L Calcium Level 7.2 MG/DL (8.5-10.1) L Phosphorus Level 1.8 MG/DL (2.5-4.9) L Magnesium Level 1.8 MG/DL (1.8-2.4) Total Bilirubin 5.1 MG/DL (0.2-1.0) H Direct Bilirubin 4.4 MG/DL (0.0-0.3) H Gamma Glutamyl Transpeptidase 528 U/L (5-85) H Aspartate Amino Transf (AST/SGOT) 217 U/L (15-37) H Alanine Aminotransferase (ALT/SGPT) 71 U/L (12-78) Alkaline Phosphatase 172 U/L (46-116) H C-Reactive Protein, Quantitative 9.7 mg/dL (0.00-0.90) H Pro-B-Type Natriuretic Peptide 2054 pg/mL (0-125) H Total Protein 5.0 G/DL (6.4-8.2) L Albumin 1.8 G/DL (3.4-5.0) L Globulin 3.2 g/dL Albumin/Globulin Ratio 0.6 (1.0-2.7) L Vancomycin Level Trough 10.7 ug/mL (5.0-12.0) Height (Feet): 5 Height (Inches): 5.00 Weight (Pounds): 182 General Appearance: no apparent distress Cardiovascular: normal rate Juno Naranjo NP Feb 20, 2019 09:51
[2019-02-20] MEDS: Thiamine 100mg in D5W 55ml IVPB SCH (09:59)
[2019-02-20] MEDS ORDERED: Potassium Phosphate 30 MM in NS 275 ML IV SCH (10:00)
[2019-02-20] MEDS: Vancomycin 1.25gm Premix IVPB SCH ×2 (10:04→21:32)
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
[2019-02-20] MEDS: D5 1/2NS w/KCl 20mEq 1,000 ML IV SCH (10:17)
--- NOTE | 2019-02-20 12:01 | NUR ---
NURSE NOTES: Mouth care done,turned and repositioned, HOB elevated at 35 degree to prevent aspiration.Will continue to monitor.Remains on CPAP mode and fairly tolerated.Seen by Dr Rivera, will follow up new orders.
--- NOTE | 2019-02-20 12:29 | Cardiac Electrophysiology PN ---
Assessment/Plan Assessment/Plan 1. Sinus tachycardia up to 170s. No evidence of acute myocardial infarction . This is likely due to sepsis and anemia and alcohol withdrawal. Echo Nl EF 60% 2. Septic shock and severe Lactic acidosis on Levophed and broad-spectrum IV antibiotics. 3. Troponin leak. Type 2. Repeat level 0.16 4. Respiratory failure on the vent. Failed weaning. Being weaned again today 5. ETOH withdrawal 6. Seizures with noncompliance. 7. Upper gi bleed. EGD pending CONSTANCE RN Subjective Subjective In ICU off Levophed now on the Vent. In Sinus tach. Objective Last 24 Hour Vital Signs Date Time Temp Pulse Resp B/P (MAP) Pulse Ox O2 Delivery O2 Flow Rate FiO2 02/20/19 12:00 Mechanical Ventilator 02/20/19 12:00 40 02/20/19 12:00 98.8 109 23 121/76 (91) 100 02/20/19 11:00 133 45 150/78 (102) 94 02/20/19 10:36 123 43 40 02/20/19 10:00 125 49 110/63 (79) 99 02/20/19 09:00 120 38 101/62 (75) 100 02/20/19 08:55 123 44 40 02/20/19 08:55 100 02/20/19 08:55 117 39 102/58 (73) 100 02/20/19 08:00 121 26 86/59 (68) 99 02/20/19 08:00 Mechanical Ventilator 02/20/19 08:00 40 02/20/19 07:00 99.4 125 23 93/59 (70) 100 02/20/19 06:44 130 40 40 02/20/19 06:30 129 25 101/61 (74) 100 02/20/19 06:00 129 26 101/55 (70) 100 02/20/19 05:30 128 25 106/52 (70) 100 02/20/19 05:09 132 41 40 02/20/19 05:00 126 25 101/64 (76) 100 02/20/19 04:30 140 28 112/68 (83) 100 02/20/19 04:00 Mechanical Ventilator 02/20/19 04:00 40 02/20/19 04:00 126 02/20/19 04:00 133 27 100/71 (81) 99 02/20/19 03:30 131 23 121/71 (88) 99 02/20/19 03:25 135 31 40 02/20/19 03:00 121/71 02/20/19 03:00 141 34 124/78 (93) 99 02/20/19 02:30 132 36 136/80 (98) 99 02/20/19 02:00 136/80 02/20/19 02:00 133 36 109/72 (84) 98 02/20/19 01:30 132 32 115/76 (89) 99 02/20/19 01:11 133 38 40 02/20/19 01:00 133 25 107/72 (84) 100 02/20/19 01:00 115/76 02/20/19 00:30 122 29 115/71 (86) 99 02/20/19 00:00 120 02/20/19 00:00 40 02/20/19 00:00 Mechanical Ventilator 02/20/19 00:00 115/71 02/20/19 00:00 99.4 120 33 100/59 (73) 100 02/19/19 23:30 119 34 106/65 (79) 94 02/19/19 23:14 116 37 40 02/19/19 23:00 109/66 02/19/19 23:00 117 32 109/66 (80) 100 02/19/19 22:30 113 36 106/67 (80) 99 02/19/19 22:00 111 34 106/68 (81) 100 02/19/19 22:00 106/67 02/19/19 21:30 103 32 40 02/19/19 21:30 112 30 97/67 (77) 100 02/19/19 21:00 109 32 84/62 (69) 99 02/19/19 21:00 97/67 02/19/19 20:30 110 25 95/55 (68) 100 02/19/19 20:00 99.4 104 27 109/69 (82) 100 02/19/19 20:00 40 02/19/19 20:00 100 02/19/19 20:00 95/55 02/19/19 20:00 Mechanical Ventilator 02/19/19 19:07 101 31 40 02/19/19 19:00 96/67 02/19/19 19:00 102 29 96/67 (77) 100 02/19/19 18:30 101 30 98/66 (77) 100 02/19/19 18:00 102 33 100/67 (78) 100 02/19/19 18:00 98/66 02/19/19 17:30 103 28 99/67 (78) 97 02/19/19 17:12 112 31 40 02/19/19 17:00 100/70 02/19/19 17:00 103 28 99/67 (78) 97 02/19/19 16:30 103 28 99/67 (78) 97 02/19/19 16:00 Mechanical Ventilator 02/19/19 16:00 40 02/19/19 16:00 99.6 103 28 99/67 (78) 97 02/19/19 16:00 105 02/19/19 16:00 102/63 02/19/19 15:30 103 28 99/67 (78) 97 02/19/19 15:00 107 28 87/48 (61) 97 02/19/19 15:00 103/68 02/19/19 14:49 104 30 40 02/19/19 14:30 103 26 98/69 (79) 98 02/19/19 14:00 108 32 100/64 (76) 97 02/19/19 14:00 103/64 02/19/19 13:30 105 21 99/59 (72) 98 02/19/19 13:00 112/71 02/19/19 13:00 112 32 103/63 (76) 99 02/19/19 12:47 112 35 40 02/19/19 12:30 116 27 103/65 (78) 97 Intake and Output 02/19/19 02/20/19 19:00 07:00 Intake Total 3676.316 ml 2112.640 ml Output Total 1430 ml 1120 ml Balance 2246.316 ml 992.640 ml Free Water 90 ml IV Total 3426.316 ml 1752.640 ml Tube Feeding 160 ml 360 ml Output Urine Total 1430 ml 1120 ml Laboratory Tests Test 02/20/19 04:30 02/20/19 08:50 White Blood Count 25.9 K/UL (4.8-10.8) #*H Red Blood Count 2.70 M/UL (4.70-6.10) L Hemoglobin 8.9 G/DL (14.2-18.0) L Hematocrit 26.0 % (42.0-52.0) L Mean Corpuscular Volume 96 FL (80-99) Mean Corpuscular Hemoglobin 33.1 PG (27.0-31.0) H Mean Corpuscular Hemoglobin Concent 34.3 G/DL (32.0-36.0) Red Cell Distribution Width 15.1 % (11.6-14.8) H Platelet Count 97 K/UL (150-450) #L Mean Platelet Volume 12.0 FL (6.5-10.1) H Neutrophils (%) (Auto) % (45.0-75.0) Lymphocytes (%) (Auto) % (20.0-45.0) Monocytes (%) (Auto) % (1.0-10.0) Eosinophils (%) (Auto) % (0.0-3.0) Basophils (%) (Auto) % (0.0-2.0) Differential Total Cells Counted 100 Neutrophils % (Manual) 72 % (45-75) Lymphocytes % (Manual) 8 % (20-45) L Monocytes % (Manual) 18 % (1-10) H Eosinophils % (Manual) 0 % (0-3) Basophils % (Manual) 0 % (0-2) Band Neutrophils 2 % (0-8) Platelet Estimate Decreased L Platelet Morphology Normal Anisocytosis 1+ Macrocytosis 1+ Sodium Level 138 MMOL/L (136-145) Potassium Level 3.3 MMOL/L (3.5-5.1) L Chloride Level 104 MMOL/L (98-107) Carbon Dioxide Level 26 MMOL/L (21-32) Anion Gap 8 mmol/L (5-15) Blood Urea Nitrogen 6 mg/dL (7-18) L Creatinine 0.8 MG/DL (0.55-1.30) Estimat Glomerular Filtration Rate > 60 mL/min (>60) Glucose Level 124 MG/DL (74-106) H Uric Acid 1.3 MG/DL (2.6-7.2) L Calcium Level 7.2 MG/DL (8.5-10.1) L Phosphorus Level 1.8 MG/DL (2.5-4.9) L Magnesium Level 1.8 MG/DL (1.8-2.4) Total Bilirubin 5.1 MG/DL (0.2-1.0) H Direct Bilirubin 4.4 MG/DL (0.0-0.3) H Gamma Glutamyl Transpeptidase 528 U/L (5-85) H Aspartate Amino Transf (AST/SGOT) 217 U/L (15-37) H Alanine Aminotransferase (ALT/SGPT) 71 U/L (12-78) Alkaline Phosphatase 172 U/L (46-116) H C-Reactive Protein, Quantitative 9.7 mg/dL (0.00-0.90) H Pro-B-Type Natriuretic Peptide 2054 pg/mL (0-125) H Total Protein 5.0 G/DL (6.4-8.2) L Albumin 1.8 G/DL (3.4-5.0) L Globulin 3.2 g/dL Albumin/Globulin Ratio 0.6 (1.0-2.7) L Vancomycin Level Trough 10.7 ug/mL (5.0-12.0) Objective HEAD AND NECK: No JVD.Orally intubated with OG tube LUNGS: Decreased breath sounds. CARDIOVASCULAR: Regular S1 and S2 with no gallop or murmur. ABDOMEN: Soft. EXTREMITIES: No pitting edema. Fidencio Trevino MD Feb 20, 2019 12:29
--- NOTE | 2019-02-20 12:39 | NUR ---
DISCHARGE SWALLOW/SPEECH THERAPY SUMMARY: PATIENT SEEN FOR SPEECH EVAL GIVEN THAT ORDER SAID SPEECH EVAL. PER DR SANTIZO'S REPORT, SHE WANTED PT NPO UNTIL SEEN BY SPEECH. PATIENT NPO AND HAS TF AND ON VENT. PLEASE RECONSULT FOR SWALLOW EVAL WHEN PATIENT READY. DISCHARGE FROM [facility] DUE TO TRANSFER TO ICU AND MEDICAL STATUS CHANGE.
--- NOTE | 2019-02-20 13:22 | Nephrology Progress Note ---
Assessment/Plan Problem List: (1) STEFANI (acute kidney injury) Assessment: Cr lower (2) Septic shock (3) Electrolyte and fluid disorder (4) Abnormal LFTs Assessment: fatty liver Assessment - STEFANI (acute kidney injury) - Septic shock - Lactic acid acidosis - Abnormal LFTs - Gastrointestinal bleed - Alcohol withdrawal seizure Plan K and Mag and Phos supplement as needed start feeding Hemodynamic support Pressors / Fluids as needed Aim to correct the electrolyte and acid base imbalance monitor renal parameters gastric support switch dilantin to keppra as LFTs rising per orders Subjective ROS Limited/Unobtainable: Yes Objective Objective Last 24 Hour Vital Signs Date Time Temp Pulse Resp B/P (MAP) Pulse Ox O2 Delivery O2 Flow Rate FiO2 02/20/19 13:00 122 29 114/69 (84) 95 02/20/19 12:49 122 44 40 02/20/19 12:00 Mechanical Ventilator 02/20/19 12:00 40 02/20/19 12:00 98.8 109 23 121/76 (91) 100 02/20/19 11:00 133 45 150/78 (102) 94 02/20/19 10:36 123 43 40 02/20/19 10:00 125 49 110/63 (79) 99 02/20/19 09:00 120 38 101/62 (75) 100 02/20/19 08:55 123 44 40 02/20/19 08:55 100 02/20/19 08:55 117 39 102/58 (73) 100 02/20/19 08:00 121 26 86/59 (68) 99 02/20/19 08:00 Mechanical Ventilator 02/20/19 08:00 40 02/20/19 07:00 99.4 125 23 93/59 (70) 100 02/20/19 06:44 130 40 40 02/20/19 06:30 129 25 101/61 (74) 100 02/20/19 06:00 129 26 101/55 (70) 100 02/20/19 05:30 128 25 106/52 (70) 100 02/20/19 05:09 132 41 40 02/20/19 05:00 126 25 101/64 (76) 100 02/20/19 04:30 140 28 112/68 (83) 100 02/20/19 04:00 Mechanical Ventilator 02/20/19 04:00 40 02/20/19 04:00 126 02/20/19 04:00 133 27 100/71 (81) 99 02/20/19 03:30 131 23 121/71 (88) 99 02/20/19 03:25 135 31 40 02/20/19 03:00 121/71 02/20/19 03:00 141 34 124/78 (93) 99 02/20/19 02:30 132 36 136/80 (98) 99 02/20/19 02:00 136/80 02/20/19 02:00 133 36 109/72 (84) 98 02/20/19 01:30 132 32 115/76 (89) 99 02/20/19 01:11 133 38 40 02/20/19 01:00 133 25 107/72 (84) 100 02/20/19 01:00 115/76 02/20/19 00:30 122 29 115/71 (86) 99 02/20/19 00:00 120 02/20/19 00:00 40 02/20/19 00:00 Mechanical Ventilator 02/20/19 00:00 115/71 02/20/19 00:00 99.4 120 33 100/59 (73) 100 02/19/19 23:30 119 34 106/65 (79) 94 02/19/19 23:14 116 37 40 02/19/19 23:00 109/66 02/19/19 23:00 117 32 109/66 (80) 100 02/19/19 22:30 113 36 106/67 (80) 99 02/19/19 22:00 111 34 106/68 (81) 100 02/19/19 22:00 106/67 02/19/19 21:30 103 32 40 02/19/19 21:30 112 30 97/67 (77) 100 02/19/19 21:00 109 32 84/62 (69) 99 02/19/19 21:00 97/67 02/19/19 20:30 110 25 95/55 (68) 100 02/19/19 20:00 99.4 104 27 109/69 (82) 100 02/19/19 20:00 40 02/19/19 20:00 100 02/19/19 20:00 95/55 02/19/19 20:00 Mechanical Ventilator 02/19/19 19:07 101 31 40 02/19/19 19:00 96/67 02/19/19 19:00 102 29 96/67 (77) 100 02/19/19 18:30 101 30 98/66 (77) 100 02/19/19 18:00 102 33 100/67 (78) 100 02/19/19 18:00 98/66 02/19/19 17:30 103 28 99/67 (78) 97 02/19/19 17:12 112 31 40 02/19/19 17:00 100/70 02/19/19 17:00 103 28 99/67 (78) 97 02/19/19 16:30 103 28 99/67 (78) 97 02/19/19 16:00 Mechanical Ventilator 02/19/19 16:00 40 02/19/19 16:00 99.6 103 28 99/67 (78) 97 02/19/19 16:00 105 02/19/19 16:00 102/63 02/19/19 15:30 103 28 99/67 (78) 97 02/19/19 15:00 107 28 87/48 (61) 97 02/19/19 15:00 103/68 02/19/19 14:49 104 30 40 02/19/19 14:30 103 26 98/69 (79) 98 02/19/19 14:00 108 32 100/64 (76) 97 02/19/19 14:00 103/64 02/19/19 13:30 105 21 99/59 (72) 98 Intake and Output 02/19/19 02/20/19 19:00 07:00 Intake Total 3676.316 ml 2112.640 ml Output Total 1430 ml 1120 ml Balance 2246.316 ml 992.640 ml Free Water 90 ml IV Total 3426.316 ml 1752.640 ml Tube Feeding 160 ml 360 ml Output Urine Total 1430 ml 1120 ml Laboratory Tests 02/20/19 04:30: White Blood Count 25.9#*H, Red Blood Count 2.70L, Hemoglobin 8.9L, Hematocrit 26.0L, Mean Corpuscular Volume 96, Mean Corpuscular Hemoglobin 33.1H, Mean Corpuscular Hemoglobin Concent 34.3, Red Cell Distribution Width 15.1H, Platelet Count 97#L, Mean Platelet Volume 12.0H, Neutrophils (%) (Auto) , Lymphocytes (%) (Auto) , Monocytes (%) (Auto) , Eosinophils (%) (Auto) , Basophils (%) (Auto) , Differential Total Cells Counted 100, Neutrophils % ( Manual) 72, Lymphocytes % (Manual) 8L, Monocytes % (Manual) 18H, Eosinophils % ( Manual) 0, Basophils % (Manual) 0, Band Neutrophils 2, Platelet Estimate DecreasedL, Platelet Morphology Normal, Anisocytosis 1+, Macrocytosis 1+, Sodium Level 138, Potassium Level 3.3L, Chloride Level 104, Carbon Dioxide Level 26, Anion Gap 8, Blood Urea Nitrogen 6L, Creatinine 0.8, Estimat Glomerular Filtration Rate > 60, Glucose Level 124H, Uric Acid 1.3L, Calcium Level 7.2L, Phosphorus Level 1.8L, Magnesium Level 1.8, Total Bilirubin 5.1H, Direct Bilirubin 4.4H, Gamma Glutamyl Transpeptidase 528H, Aspartate Amino Transf (AST/SGOT) 217H, Alanine Aminotransferase (ALT/SGPT) 71, Alkaline Phosphatase 172H, C-Reactive Protein, Quantitative 9.7H, Pro-B-Type Natriuretic Peptide 2054H, Total Protein 5.0L, Albumin 1.8L, Globulin 3.2, Albumin/Globulin Ratio 0.6L 02/20/19 08:50: Vancomycin Level Trough 10.7 Height (Feet): 5 Height (Inches): 5.00 Weight (Pounds): 182 General Appearance: no apparent distress EENT: other - vented Cardiovascular: tachycardia Respiratory/Chest: decreased breath sounds Abdomen: distended Objective no change Scotty Bailon MD Feb 20, 2019 13:21
--- NOTE | 2019-02-20 13:29 | Infectious Diseases Prog Note ---
Assessment/Plan Assessment/Plan ASSESSMENT AND PLAN: 1. sepsis, shock, e.coli bacteremia/uti, gram neg sepsis, pna/HCAP, ct noted, leukocytosis, sirs, fevers + risk for c.diff. and fungemia, leukocytosis worse - zosyn, vancomycin, diflucan and po vancomycin - surveillance cultures, monitor labs and chest x-ray - icu and supportive care 2. History of seizures. Workup per Neurology. 3. Acute kidney injury, likely secondary to sepsis. 4. The patient is anemic. 5. Severe sepsis with leukocytosis. 6. History of ETOH abuse. 7. No known allergies. 8. Family history is noncontributory. 9. MAR was noted. 10. Case was discussed with RN. 11. Social history is positive for ETOH abuse. 12. Poor prognosis. Subjective Constitutional: Reports: other - on vent; Denies: fever HEENT: Reports: congestion Respiratory: Reports: shortness of breath Cardiovascular: Denies: chest pain Gastrointestinal/Abdominal: Reports: diarrhea; Denies: nausea, vomiting Genitourinary: Reports: other - + delgado Neurologic: Reports: weakness Psychiatric: Denies: depression Skin: Denies: rash Hematologic: Denies: bleeding Musculoskeletal: Denies: pain Allergies: Coded Allergies: No Known Allergies (Unverified , 02/10/15) Objective Vital Signs Last 24 Hour Vital Signs Date Time Temp Pulse Resp B/P (MAP) Pulse Ox O2 Delivery O2 Flow Rate FiO2 02/20/19 13:00 122 29 114/69 (84) 95 02/20/19 12:49 122 44 40 02/20/19 12:00 Mechanical Ventilator 02/20/19 12:00 40 02/20/19 12:00 98.8 109 23 121/76 (91) 100 02/20/19 11:00 133 45 150/78 (102) 94 02/20/19 10:36 123 43 40 02/20/19 10:00 125 49 110/63 (79) 99 02/20/19 09:00 120 38 101/62 (75) 100 02/20/19 08:55 123 44 40 02/20/19 08:55 100 02/20/19 08:55 117 39 102/58 (73) 100 02/20/19 08:00 121 26 86/59 (68) 99 02/20/19 08:00 Mechanical Ventilator 02/20/19 08:00 40 02/20/19 07:00 99.4 125 23 93/59 (70) 100 02/20/19 06:44 130 40 40 02/20/19 06:30 129 25 101/61 (74) 100 02/20/19 06:00 129 26 101/55 (70) 100 02/20/19 05:30 128 25 106/52 (70) 100 02/20/19 05:09 132 41 40 02/20/19 05:00 126 25 101/64 (76) 100 02/20/19 04:30 140 28 112/68 (83) 100 02/20/19 04:00 Mechanical Ventilator 02/20/19 04:00 40 02/20/19 04:00 126 02/20/19 04:00 133 27 100/71 (81) 99 02/20/19 03:30 131 23 121/71 (88) 99 02/20/19 03:25 135 31 40 02/20/19 03:00 121/71 02/20/19 03:00 141 34 124/78 (93) 99 02/20/19 02:30 132 36 136/80 (98) 99 02/20/19 02:00 136/80 02/20/19 02:00 133 36 109/72 (84) 98 02/20/19 01:30 132 32 115/76 (89) 99 02/20/19 01:11 133 38 40 02/20/19 01:00 133 25 107/72 (84) 100 02/20/19 01:00 115/76 02/20/19 00:30 122 29 115/71 (86) 99 02/20/19 00:00 120 02/20/19 00:00 40 02/20/19 00:00 Mechanical Ventilator 02/20/19 00:00 115/71 02/20/19 00:00 99.4 120 33 100/59 (73) 100 02/19/19 23:30 119 34 106/65 (79) 94 02/19/19 23:14 116 37 40 02/19/19 23:00 109/66 02/19/19 23:00 117 32 109/66 (80) 100 02/19/19 22:30 113 36 106/67 (80) 99 02/19/19 22:00 111 34 106/68 (81) 100 02/19/19 22:00 106/67 02/19/19 21:30 103 32 40 02/19/19 21:30 112 30 97/67 (77) 100 02/19/19 21:00 109 32 84/62 (69) 99 02/19/19 21:00 97/67 02/19/19 20:30 110 25 95/55 (68) 100 02/19/19 20:00 99.4 104 27 109/69 (82) 100 02/19/19 20:00 40 02/19/19 20:00 100 02/19/19 20:00 95/55 02/19/19 20:00 Mechanical Ventilator 02/19/19 19:07 101 31 40 02/19/19 19:00 96/67 02/19/19 19:00 102 29 96/67 (77) 100 02/19/19 18:30 101 30 98/66 (77) 100 02/19/19 18:00 102 33 100/67 (78) 100 02/19/19 18:00 98/66 02/19/19 17:30 103 28 99/67 (78) 97 02/19/19 17:12 112 31 40 02/19/19 17:00 100/70 02/19/19 17:00 103 28 99/67 (78) 97 02/19/19 16:30 103 28 99/67 (78) 97 02/19/19 16:00 Mechanical Ventilator 02/19/19 16:00 40 02/19/19 16:00 99.6 103 28 99/67 (78) 97 02/19/19 16:00 105 02/19/19 16:00 102/63 02/19/19 15:30 103 28 99/67 (78) 97 02/19/19 15:00 107 28 87/48 (61) 97 02/19/19 15:00 103/68 02/19/19 14:49 104 30 40 02/19/19 14:30 103 26 98/69 (79) 98 02/19/19 14:00 108 32 100/64 (76) 97 02/19/19 14:00 103/64 02/19/19 13:30 105 21 99/59 (72) 98 Height (Feet): 5 Height (Inches): 5.00 Weight (Pounds): 182 General Appearance: other - on vent, alert HEENT: normocephalic, atraumatic, anicteric Respiratory/Chest: crackles/rales, rhonchi - bilaterally Cardiovascular: normal rate, regular rhythm, no gallop/murmur, no JVD Abdomen: normal bowel sounds, soft, non tender, no organomegaly, non distended Genitourinary: other - + delgado - urine cloudy Extremities: no cyanosis Skin: no rash 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 Posterior basilar consolidation suspicious for pneumonia. Correlate clinically. Trace bilateral pleural effusions. Possible enterocolitis as described above. Please correlate clinically. Mild ascites Fatty liver Cholelithiasis with wall thickening. Cholecystitis not excluded. Small right inguinal hernia containing fat Extensive breathing motion artifact limiting evaluation. Chest x-ray - 02/17/19 - Procedure: XRAY Chest 1v Indication: Dyspnea Comparison: 02/16/2019 A single view chest radiograph was obtained. Findings: Left basilar consolidation with air bronchograms demonstrated. Costophrenic angle is obscured. Heart size is normal. Tubes and lines are stable and satisfactory in position. IMPRESSION: No significant change from the previous exam Microbiology Date/Time Source Procedure Growth Status 02/17/19 06:30 Blood Blood Culture - Final Escherichia Coli Complete 02/16/19 19:30 Sputum Gram Stain - Final Complete 02/16/19 19:30 Sputum Culture - Final Luciana Albicans Complete 02/14/19 12:30 Urine,Clean Catch Urine Culture - Final Escherichia Coli Complete Laboratory Tests Test 02/20/19 04:30 02/20/19 08:50 White Blood Count 25.9 K/UL (4.8-10.8) #*H Red Blood Count 2.70 M/UL (4.70-6.10) L Hemoglobin 8.9 G/DL (14.2-18.0) L Hematocrit 26.0 % (42.0-52.0) L Mean Corpuscular Volume 96 FL (80-99) Mean Corpuscular Hemoglobin 33.1 PG (27.0-31.0) H Mean Corpuscular Hemoglobin Concent 34.3 G/DL (32.0-36.0) Red Cell Distribution Width 15.1 % (11.6-14.8) H Platelet Count 97 K/UL (150-450) #L Mean Platelet Volume 12.0 FL (6.5-10.1) H Neutrophils (%) (Auto) % (45.0-75.0) Lymphocytes (%) (Auto) % (20.0-45.0) Monocytes (%) (Auto) % (1.0-10.0) Eosinophils (%) (Auto) % (0.0-3.0) Basophils (%) (Auto) % (0.0-2.0) Differential Total Cells Counted 100 Neutrophils % (Manual) 72 % (45-75) Lymphocytes % (Manual) 8 % (20-45) L Monocytes % (Manual) 18 % (1-10) H Eosinophils % (Manual) 0 % (0-3) Basophils % (Manual) 0 % (0-2) Band Neutrophils 2 % (0-8) Platelet Estimate Decreased L Platelet Morphology Normal Anisocytosis 1+ Macrocytosis 1+ Sodium Level 138 MMOL/L (136-145) Potassium Level 3.3 MMOL/L (3.5-5.1) L Chloride Level 104 MMOL/L (98-107) Carbon Dioxide Level 26 MMOL/L (21-32) Anion Gap 8 mmol/L (5-15) Blood Urea Nitrogen 6 mg/dL (7-18) L Creatinine 0.8 MG/DL (0.55-1.30) Estimat Glomerular Filtration Rate > 60 mL/min (>60) Glucose Level 124 MG/DL (74-106) H Uric Acid 1.3 MG/DL (2.6-7.2) L Calcium Level 7.2 MG/DL (8.5-10.1) L Phosphorus Level 1.8 MG/DL (2.5-4.9) L Magnesium Level 1.8 MG/DL (1.8-2.4) Total Bilirubin 5.1 MG/DL (0.2-1.0) H Direct Bilirubin 4.4 MG/DL (0.0-0.3) H Gamma Glutamyl Transpeptidase 528 U/L (5-85) H Aspartate Amino Transf (AST/SGOT) 217 U/L (15-37) H Alanine Aminotransferase (ALT/SGPT) 71 U/L (12-78) Alkaline Phosphatase 172 U/L (46-116) H C-Reactive Protein, Quantitative 9.7 mg/dL (0.00-0.90) H Pro-B-Type Natriuretic Peptide 2054 pg/mL (0-125) H Total Protein 5.0 G/DL (6.4-8.2) L Albumin 1.8 G/DL (3.4-5.0) L Globulin 3.2 g/dL Albumin/Globulin Ratio 0.6 (1.0-2.7) L Vancomycin Level Trough 10.7 ug/mL (5.0-12.0) Current Medications Medications (Trade) Dose Ordered Sig/Tonny Route PRN Reason Start Time Stop Time Status Last Admin Dose Admin Acetaminophen (Tylenol) 650 mg Q4H PRN ORAL Mild Pain (Pain Scale 1-3) 02/16/19 00:30 03/16/19 12:29 02/17/19 04:53 Acetaminophen (Tylenol) 650 mg Q4H PRN RECTAL Mild Pain (Pain Scale 1-3) 02/16/19 04:30 03/18/19 04:29 02/16/19 04:31 Bisacodyl (Dulcolax) 10 mg HSPRN PRN RECTAL Constipation 02/16/19 21:00 03/16/19 20:59 Chlorhexidine Gluconate (Stephanie-Hex 2%) 1 applic DAILY@2000 TOPIC 02/19/19 20:00 03/21/19 19:59 02/19/19 20:35 Dextrose (Dextrose 50%) 25 ml Q30M PRN IV Hypoglycemia 02/15/19 22:15 03/16/19 16:14 Dextrose (Dextrose 50%) 50 ml Q30M PRN IV Hypoglycemia 02/15/19 22:15 03/16/19 16:14 02/16/19 06:32 Dextrose/ Electrolytes 1,000 ml @ 100 mls/hr Q10H IV 02/19/19 18:00 03/21/19 17:59 02/20/19 10:17 Docusate Sodium (Colace) 100 mg TID ORAL 02/16/19 18:00 03/16/19 20:59 02/20/19 13:17 Levetiracetam 100 ml @ 400 mls/hr Q12HR IVPB 02/19/19 09:00 03/21/19 08:59 02/20/19 08:35 Lorazepam (Ativan 2mg/ml 1ml) 1 mg Q2H PRN IV For Anxiety 02/16/19 09:00 02/23/19 08:59 02/16/19 10:46 Lorazepam (Ativan 2mg/ml 1ml) 1 mg Q4H PRN IV For Seizures 02/16/19 00:15 02/23/19 00:14 02/19/19 11:03 Norepinephrine Bitartrate 8 mg/ Dextrose 508 ml @ 0 mls/hr Q24H IV 02/16/19 09:30 03/18/19 09:29 02/19/19 10:04 Ondansetron HCl (Zofran) 4 mg Q6H PRN IVP Nausea & Vomiting 02/16/19 01:00 03/16/19 12:59 Pantoprazole (Protonix) 40 mg EVERY 12 HOURS IVP 02/16/19 09:00 03/18/19 08:59 02/20/19 08:35 Phenylephrine HCl 50 mg/Dextrose 250 ml @ 0 mls/hr Q24H IV 02/16/19 22:30 03/18/19 22:29 Piperacillin Sod/ Tazobactam Sod 3.375 gm/Sodium Chloride 110 ml @ 27.5 mls/hr Q8HR IVPB 02/18/19 14:00 02/25/19 13:59 02/20/19 13:18 Potassium Phosphate 30 mm/ Sodium Chloride 285 ml @ 47.5 mls/hr ONCE IV 02/20/19 10:00 02/20/19 16:00 02/20/19 09:59 Thiamine HCl 100 mg/Dextrose 56 ml @ 112 mls/hr Q24H IVPB 02/16/19 09:00 03/18/19 08:59 02/20/19 09:59 Vancomycin HCl (Vanco rx to dose) 1 ea DAILY PRN MISC Per rx protocol 02/16/19 09:00 03/17/19 12:59 Vancomycin HCl/ Dextrose 275 ml @ 183.333 mls/hr Q12HR@1000,2200 IVPB 02/20/19 10:00 02/25/19 09:59 02/20/19 10:04 Vasopressin 100 units/Sodium Chloride 100 ml @ 0 mls/hr Q24H IV 02/16/19 08:15 03/18/19 08:14 02/16/19 08:15 Barry Plummer MD Feb 20, 2019 13:29
[2019-02-20] MEDS ORDERED: Tubing Blood Filter IV ONE (14:05)
--- NOTE | 2019-02-20 14:25 | NUR ---
NURSE NOTES: Seen by Dr Dasilva made aware WBC 25.9, will follow up new order.Turned and repositioned.
--- NOTE | 2019-02-20 14:43 | NUR ---
RESPIRATORY NOTES: Placed back onto ACVC previous settings. Addendum: 02/20/19 at 1443 by MALA LUIS RT VT <130 mL
--- NOTE | 2019-02-20 15:00 | NUR ---
NURSE NOTES: Pt back on AC mode with same setting, no acute distress,will continue to monitor
--- NOTE | 2019-02-20 15:21 | General Progress Note ---
Assessment/Plan Status: doing well, unchanged Assessment/Plan: Assessment/Plan Status: doing well, stable Status Narrative Assessment/Plan: 54 year old male with pMH of seizure disorder and etoh abuse admitted for seizures 2/2 non-compliance #severe septic shock likely 2/2 UTI #Gram negative bacteremia #Acute respiratory failure -Vanc and Zosyn - gentamicin - Now on Fluconazole per ID - Re culture today ordered due to severe increase in the WBC from 15 to 26 thousand. - CBC in AM - CT 02/18 with atelectasis primarily - Diuresis started -ID consult appreciated -f/u cultures -cont ICU care -intubated and mild sedation. He follows commands well. -vent management per pulmonary, FAILED trial of Spontaneous today with RR up to 36 -wean as tolerated -Titrate pressors to goal map >65 -abg prn - Reviewed CT chest/abd/pel #Lactic acidosis -2/2 severe shock/ poss abd source/ seizures -CTM -Fluid boluses ordered -Cont mIVF #Coagulopathy # Thrombocytopenia - 40,000 today. Stable for 2 days and has blood tinge urine - Hematology consult with Dr. Johnston appreciated. -likely 2/2 hepatic injury 2/2 shock - Consumption coagulopathy. - Consider platelet transfusion if LESS than 30K with urine blood tinge color. #Coffee ground emesis likely in setting of GI bleed -H/H trending down. Monitor -GI consult appreciated -Plan for EGD once stable. Cancelled until the patient is hemodynamically more stable, OFF pressors. -surgery consult appreciated #Seizures 2/2 noncomplaint with AED -s/p phenytoin load in ED -Cont Phenytoin -Neurology consult appreciated -pending EEG - no seizures noted in last 24 hours -Ativan PRN for seizures -NPO -Seizure precautions #Hypokalemia - Replete as needed #hypophosphatemia - Repleted. #Hypomagnesemia -repleted -CTM Code: Full Subjective ROS Limited/Unobtainable: Yes Allergies: Coded Allergies: No Known Allergies (Unverified , 02/10/15) Objective Last 24 Hour Vital Signs Date Time Temp Pulse Resp B/P (MAP) Pulse Ox O2 Delivery O2 Flow Rate FiO2 02/20/19 14:40 115 53 40 02/20/19 14:00 117 29 122/78 (93) 99 02/20/19 13:00 122 29 114/69 (84) 95 02/20/19 12:49 122 44 40 02/20/19 12:00 Mechanical Ventilator 02/20/19 12:00 127 02/20/19 12:00 40 02/20/19 12:00 98.8 109 23 121/76 (91) 100 02/20/19 11:00 133 45 150/78 (102) 94 02/20/19 10:36 123 43 40 02/20/19 10:00 125 49 110/63 (79) 99 02/20/19 09:00 120 38 101/62 (75) 100 02/20/19 08:55 123 44 40 02/20/19 08:55 100 02/20/19 08:55 117 39 102/58 (73) 100 02/20/19 08:00 126 02/20/19 08:00 121 26 86/59 (68) 99 02/20/19 08:00 Mechanical Ventilator 02/20/19 08:00 40 02/20/19 07:00 99.4 125 23 93/59 (70) 100 02/20/19 06:44 130 40 40 02/20/19 06:30 129 25 101/61 (74) 100 02/20/19 06:00 129 26 101/55 (70) 100 02/20/19 05:30 128 25 106/52 (70) 100 02/20/19 05:09 132 41 40 02/20/19 05:00 126 25 101/64 (76) 100 02/20/19 04:30 140 28 112/68 (83) 100 02/20/19 04:00 Mechanical Ventilator 02/20/19 04:00 40 02/20/19 04:00 126 02/20/19 04:00 133 27 100/71 (81) 99 02/20/19 03:30 131 23 121/71 (88) 99 02/20/19 03:25 135 31 40 02/20/19 03:00 121/71 02/20/19 03:00 141 34 124/78 (93) 99 02/20/19 02:30 132 36 136/80 (98) 99 02/20/19 02:00 136/80 02/20/19 02:00 133 36 109/72 (84) 98 02/20/19 01:30 132 32 115/76 (89) 99 02/20/19 01:11 133 38 40 02/20/19 01:00 133 25 107/72 (84) 100 02/20/19 01:00 115/76 02/20/19 00:30 122 29 115/71 (86) 99 02/20/19 00:00 120 02/20/19 00:00 40 02/20/19 00:00 Mechanical Ventilator 02/20/19 00:00 115/71 02/20/19 00:00 99.4 120 33 100/59 (73) 100 02/19/19 23:30 119 34 106/65 (79) 94 02/19/19 23:14 116 37 40 02/19/19 23:00 109/66 02/19/19 23:00 117 32 109/66 (80) 100 02/19/19 22:30 113 36 106/67 (80) 99 02/19/19 22:00 111 34 106/68 (81) 100 02/19/19 22:00 106/67 02/19/19 21:30 103 32 40 02/19/19 21:30 112 30 97/67 (77) 100 02/19/19 21:00 109 32 84/62 (69) 99 02/19/19 21:00 97/67 02/19/19 20:30 110 25 95/55 (68) 100 02/19/19 20:00 99.4 104 27 109/69 (82) 100 02/19/19 20:00 40 02/19/19 20:00 100 02/19/19 20:00 95/55 02/19/19 20:00 Mechanical Ventilator 02/19/19 19:07 101 31 40 02/19/19 19:00 96/67 02/19/19 19:00 102 29 96/67 (77) 100 02/19/19 18:30 101 30 98/66 (77) 100 02/19/19 18:00 102 33 100/67 (78) 100 02/19/19 18:00 98/66 02/19/19 17:30 103 28 99/67 (78) 97 02/19/19 17:12 112 31 40 02/19/19 17:00 100/70 02/19/19 17:00 103 28 99/67 (78) 97 02/19/19 16:30 103 28 99/67 (78) 97 02/19/19 16:00 Mechanical Ventilator 02/19/19 16:00 40 02/19/19 16:00 99.6 103 28 99/67 (78) 97 02/19/19 16:00 105 02/19/19 16:00 102/63 02/19/19 15:30 103 28 99/67 (78) 97 Intake and Output 02/19/19 02/20/19 18:59 06:59 Intake Total 3498.576 ml 2410.740 ml Output Total 1470 ml 1080 ml Balance 2028.576 ml 1330.740 ml Free Water 30 ml 60 ml IV Total 3338.576 ml 1990.740 ml Tube Feeding 130 ml 360 ml Output Urine Total 1470 ml 1080 ml Laboratory Tests 02/20/19 04:30: White Blood Count 25.9#*H, Red Blood Count 2.70L, Hemoglobin 8.9L, Hematocrit 26.0L, Mean Corpuscular Volume 96, Mean Corpuscular Hemoglobin 33.1H, Mean Corpuscular Hemoglobin Concent 34.3, Red Cell Distribution Width 15.1H, Platelet Count 97#L, Mean Platelet Volume 12.0H, Neutrophils (%) (Auto) , Lymphocytes (%) (Auto) , Monocytes (%) (Auto) , Eosinophils (%) (Auto) , Basophils (%) (Auto) , Differential Total Cells Counted 100, Neutrophils % ( Manual) 72, Lymphocytes % (Manual) 8L, Monocytes % (Manual) 18H, Eosinophils % ( Manual) 0, Basophils % (Manual) 0, Band Neutrophils 2, Platelet Estimate DecreasedL, Platelet Morphology Normal, Anisocytosis 1+, Macrocytosis 1+, Sodium Level 138, Potassium Level 3.3L, Chloride Level 104, Carbon Dioxide Level 26, Anion Gap 8, Blood Urea Nitrogen 6L, Creatinine 0.8, Estimat Glomerular Filtration Rate > 60, Glucose Level 124H, Uric Acid 1.3L, Calcium Level 7.2L, Phosphorus Level 1.8L, Magnesium Level 1.8, Total Bilirubin 5.1H, Direct Bilirubin 4.4H, Gamma Glutamyl Transpeptidase 528H, Aspartate Amino Transf (AST/SGOT) 217H, Alanine Aminotransferase (ALT/SGPT) 71, Alkaline Phosphatase 172H, C-Reactive Protein, Quantitative 9.7H, Pro-B-Type Natriuretic Peptide 2054H, Total Protein 5.0L, Albumin 1.8L, Globulin 3.2, Albumin/Globulin Ratio 0.6L 02/20/19 08:50: Vancomycin Level Trough 10.7 Height (Feet): 5 Height (Inches): 5.00 Weight (Pounds): 182 General Appearance: WD/WN, moderate distress, other - intubated, ngt EENT: PERRL/EOMI Cardiovascular: regular rhythm Respiratory/Chest: lungs clear Abdomen: non tender Neurologic: [employer]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
--- NOTE | 2019-02-20 16:02 | NUR ---
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 SEPSIS . STEFANI VS: BP 150/78, P 133, T 98.8, RR 53, SpO2 94 on VENT FiO2 40 WBC 25.9, RBC 2.70, H&H 8.9/26.0, Plt.Count 97, K 3.3, BUN 6 IS:FLUCONAZOLE 200ml IV NS x1L IV ZOSYN 110ml IVPB D5/ELECTROLYTES x1L IV VANCOMYCIN 275ml IVPB THIAMINE 56ml IVPB POTASSIUM PHOSPHATE 285ml IV LEVETIRACETAM 100ml IVPB S/P PICC INSERTION 02/19 FAILED WEENING PLAN: HEMODYNAMIC SUPPORT PRESSORS/ FLUIDS PRN ICU STATUS
--- NOTE | 2019-02-20 16:06 | Surgery Progress Note ---
Surgery Progress Note Subjective Procedure Performed left femoral central venous catheter insertion Additional Comments leukocytosis worsening anemia awake responsive intubated weaning on vent very ill labs noted Objective Last 24 Hour Vital Signs Date Time Temp Pulse Resp B/P (MAP) Pulse Ox O2 Delivery O2 Flow Rate FiO2 02/20/19 14:40 115 53 40 02/20/19 14:00 117 29 122/78 (93) 99 02/20/19 13:00 122 29 114/69 (84) 95 02/20/19 12:49 122 44 40 02/20/19 12:00 Mechanical Ventilator 02/20/19 12:00 127 02/20/19 12:00 40 02/20/19 12:00 98.8 109 23 121/76 (91) 100 02/20/19 11:00 133 45 150/78 (102) 94 02/20/19 10:36 123 43 40 02/20/19 10:00 125 49 110/63 (79) 99 02/20/19 09:00 120 38 101/62 (75) 100 02/20/19 08:55 123 44 40 02/20/19 08:55 100 02/20/19 08:55 117 39 102/58 (73) 100 02/20/19 08:00 126 02/20/19 08:00 121 26 86/59 (68) 99 02/20/19 08:00 Mechanical Ventilator 02/20/19 08:00 40 02/20/19 07:00 99.4 125 23 93/59 (70) 100 02/20/19 06:44 130 40 40 02/20/19 06:30 129 25 101/61 (74) 100 02/20/19 06:00 129 26 101/55 (70) 100 02/20/19 05:30 128 25 106/52 (70) 100 02/20/19 05:09 132 41 40 02/20/19 05:00 126 25 101/64 (76) 100 02/20/19 04:30 140 28 112/68 (83) 100 02/20/19 04:00 Mechanical Ventilator 02/20/19 04:00 40 02/20/19 04:00 126 02/20/19 04:00 133 27 100/71 (81) 99 02/20/19 03:30 131 23 121/71 (88) 99 02/20/19 03:25 135 31 40 02/20/19 03:00 121/71 02/20/19 03:00 141 34 124/78 (93) 99 02/20/19 02:30 132 36 136/80 (98) 99 02/20/19 02:00 136/80 02/20/19 02:00 133 36 109/72 (84) 98 02/20/19 01:30 132 32 115/76 (89) 99 02/20/19 01:11 133 38 40 02/20/19 01:00 133 25 107/72 (84) 100 02/20/19 01:00 115/76 02/20/19 00:30 122 29 115/71 (86) 99 02/20/19 00:00 120 02/20/19 00:00 40 02/20/19 00:00 Mechanical Ventilator 02/20/19 00:00 115/71 02/20/19 00:00 99.4 120 33 100/59 (73) 100 02/19/19 23:30 119 34 106/65 (79) 94 02/19/19 23:14 116 37 40 02/19/19 23:00 109/66 02/19/19 23:00 117 32 109/66 (80) 100 02/19/19 22:30 113 36 106/67 (80) 99 02/19/19 22:00 111 34 106/68 (81) 100 02/19/19 22:00 106/67 02/19/19 21:30 103 32 40 02/19/19 21:30 112 30 97/67 (77) 100 02/19/19 21:00 109 32 84/62 (69) 99 02/19/19 21:00 97/67 02/19/19 20:30 110 25 95/55 (68) 100 02/19/19 20:00 99.4 104 27 109/69 (82) 100 02/19/19 20:00 40 02/19/19 20:00 100 02/19/19 20:00 95/55 02/19/19 20:00 Mechanical Ventilator 02/19/19 19:07 101 31 40 02/19/19 19:00 96/67 02/19/19 19:00 102 29 96/67 (77) 100 02/19/19 18:30 101 30 98/66 (77) 100 02/19/19 18:00 102 33 100/67 (78) 100 02/19/19 18:00 98/66 02/19/19 17:30 103 28 99/67 (78) 97 02/19/19 17:12 112 31 40 02/19/19 17:00 100/70 02/19/19 17:00 103 28 99/67 (78) 97 02/19/19 16:30 103 28 99/67 (78) 97 I&O Intake and Output 02/19/19 02/20/19 19:00 07:00 Intake Total 3676.316 ml 2112.640 ml Output Total 1430 ml 1120 ml Balance 2246.316 ml 992.640 ml Free Water 90 ml IV Total 3426.316 ml 1752.640 ml Tube Feeding 160 ml 360 ml Output Urine Total 1430 ml 1120 ml Cardiovascular: RSR Respiratory: decreased breath sounds Abdomen: soft, present bowel sounds, non-distended Extremities: no edema, no tenderness, no cyanosis, other Laboratory Tests Test 02/20/19 04:30 02/20/19 08:50 White Blood Count 25.9 K/UL (4.8-10.8) #*H Red Blood Count 2.70 M/UL (4.70-6.10) L Hemoglobin 8.9 G/DL (14.2-18.0) L Hematocrit 26.0 % (42.0-52.0) L Mean Corpuscular Volume 96 FL (80-99) Mean Corpuscular Hemoglobin 33.1 PG (27.0-31.0) H Mean Corpuscular Hemoglobin Concent 34.3 G/DL (32.0-36.0) Red Cell Distribution Width 15.1 % (11.6-14.8) H Platelet Count 97 K/UL (150-450) #L Mean Platelet Volume 12.0 FL (6.5-10.1) H Neutrophils (%) (Auto) % (45.0-75.0) Lymphocytes (%) (Auto) % (20.0-45.0) Monocytes (%) (Auto) % (1.0-10.0) Eosinophils (%) (Auto) % (0.0-3.0) Basophils (%) (Auto) % (0.0-2.0) Differential Total Cells Counted 100 Neutrophils % (Manual) 72 % (45-75) Lymphocytes % (Manual) 8 % (20-45) L Monocytes % (Manual) 18 % (1-10) H Eosinophils % (Manual) 0 % (0-3) Basophils % (Manual) 0 % (0-2) Band Neutrophils 2 % (0-8) Platelet Estimate Decreased L Platelet Morphology Normal Anisocytosis 1+ Macrocytosis 1+ Sodium Level 138 MMOL/L (136-145) Potassium Level 3.3 MMOL/L (3.5-5.1) L Chloride Level 104 MMOL/L (98-107) Carbon Dioxide Level 26 MMOL/L (21-32) Anion Gap 8 mmol/L (5-15) Blood Urea Nitrogen 6 mg/dL (7-18) L Creatinine 0.8 MG/DL (0.55-1.30) Estimat Glomerular Filtration Rate > 60 mL/min (>60) Glucose Level 124 MG/DL (74-106) H Uric Acid 1.3 MG/DL (2.6-7.2) L Calcium Level 7.2 MG/DL (8.5-10.1) L Phosphorus Level 1.8 MG/DL (2.5-4.9) L Magnesium Level 1.8 MG/DL (1.8-2.4) Total Bilirubin 5.1 MG/DL (0.2-1.0) H Direct Bilirubin 4.4 MG/DL (0.0-0.3) H Gamma Glutamyl Transpeptidase 528 U/L (5-85) H Aspartate Amino Transf (AST/SGOT) 217 U/L (15-37) H Alanine Aminotransferase (ALT/SGPT) 71 U/L (12-78) Alkaline Phosphatase 172 U/L (46-116) H C-Reactive Protein, Quantitative 9.7 mg/dL (0.00-0.90) H Pro-B-Type Natriuretic Peptide 2054 pg/mL (0-125) H Total Protein 5.0 G/DL (6.4-8.2) L Albumin 1.8 G/DL (3.4-5.0) L Globulin 3.2 g/dL Albumin/Globulin Ratio 0.6 (1.0-2.7) L Vancomycin Level Trough 10.7 ug/mL (5.0-12.0) Plan Problems: (1) Non-compliance Assessment & Plan: Noncompliance with seizure medication with known history of seizures Now had seizure Appreciate neurology input (2) Electrolyte and fluid disorder Assessment & Plan: Likely due to EtOH use and dehydration IV hydration Trend labs (3) Fever (4) Oral thrush (5) Diarrhea (6) Aspiration pneumonia (7) Seizure disorder (8) Tachycardia (9) Altered mental status (10) Alcohol withdrawal seizure (11) Alcohol withdrawal seizure (12) Episode of confusion (13) Coffee ground emesis (14) Gastrointestinal bleed Assessment & Plan: Patient on admission identified to have maroon-colored stool and coffee-ground emesis. Labs noted mild anemia with H&H trending down. No acute active bleed noted but given patient's history high risk for potential ulcers. PPI Appreciate GI input considerations for EGD once stable No evidence of pulmonary embolus, aortic dissection or aneurysm. Posterior basilar consolidation suspicious for pneumonia. Correlate clinically. Trace bilateral pleural effusions. Possible enterocolitis as described above. Please correlate clinically. Mild ascites Fatty liver Cholelithiasis with wall thickening. Cholecystitis not excluded. Small right inguinal hernia containing fat Extensive breathing motion artifact limiting evaluation. We will follow with recommendations thank you (15) Sinus tachycardia (16) Septic shock (17) Sepsis Assessment & Plan: Patient septic leukocytosis improved today lactic acidosis improving anemia renal function declining electrolyte disturbance US noted on pressors now but weaning on IV abx intubated on vent support cont with aggressive resuscitation repeat US ordered ?stone (18) Lactic acid acidosis (19) STEFANI (acute kidney injury) (20) Abnormal LFTs (21) High anion gap metabolic acidosis Juanpablo Marcus Feb 20, 2019 16:06
--- NOTE | 2019-02-20 16:23 | NUR ---
NURSE NOTES: Pt turned and repositioned, mouth care done, hoib elevated to prevent aspiration.No residual at this time.Will continue to monitor
[2019-02-20] MEDS ORDERED: Gentamicin inj 350 MG in NS 110 ML IVPB SCH (17:00)
[2019-02-20 17:22] LABS: APPEARANCE,URINE CLOUDY; BILIRUBIN, URINE 1+ (NEGATIVE); GLUCOSE, URINE (UA) NEGATIVE (NEGATIVE); KETONES,URINE NEGATIVE (NEGATIVE); LEUKOCYTE ESTERASE ,URINE 3+ (NEGATIVE); NITRITE,URINE NEGATIVE (NEGATIVE); PH,URINE 6.5 (4.5-8.0); PROTEIN,URINE 1+ (NEGATIVE); UROBILINOGEN,URINE NORMAL MG/DL (0.0-1.0)
[2019-02-20 17:23] LABS: COLOR,URINE AMBER
[2019-02-20] MEDS: Vancomycin oral 125mg/2.5ml ORAL SCH ×2 (17:38→20:35)
--- NOTE | 2019-02-20 18:12 | NUR ---
NURSE NOTES: ADLS DONE, TURNED AND REPOSITIONED, MOUTH CARE PERFORM.WILL CONTINUE MONITOR
--- NOTE | 2019-02-20 18:55 | NUR ---
RESPIRATORY NOTE: Received pt on AC 26, 500VT, 40%, PEEP +5. Pt intubated w/ ETT 7.5 @ 24cm lipline, secured by anchorfast. Pt alert/awake, follows commands. Bite block in place as pt tends to bite down ETT. B/S kylie. rhonchi, sxn small amounts of thick, yellow-green secretions. Both hands on soft-restraints to prevent pt from self-extubation. Vent plugged into red outlet, ambubag at bedside. Pt in no apparent distress at this time. Will continue to monitor pt.
--- NOTE | 2019-02-20 19:20 | NUR ---
HAND-OFF: Report given to ESHA DICKEY.
[2019-02-20] MEDS: LORazepam Inj 2mg/ml 1ml IV PRN (19:25)
[2019-02-20] MEDS: Dyna-Hex 2% Top Sol 2oz TOPIC SCH (19:42)
--- NOTE | 2019-02-20 19:45 | NUR ---
NURSE NOTES: PATIENT AWOKE, ANXIOUS STATUS, ON ETT TO VENT AC 26/TV 500/FIO2 40%/ PEEP 5, O2 SATURATION OVER 96% NOTED, OGT INTACT AND PATENT ONGOING JEVITY 1.2 AT 40ML/HR, RESIDUE 20ML NOTED, ABDOMEN SOFT, HYPERACTIVE BOWEL SOUND TO 4 QUADRANTS, F/C INTACT AND PATENT, SLIGHT PINKISH YELLOW URINE OUTED, ON SCD'S TO BOTH LOWER LEGS, PICC LINE TO RIGHT UPPER ARM, INTACT AND PATENT PERIPHERAL LINE TO RIGHT FA 20G, ONGOING NS AT 50ML/HR VIA PICC LINE, 2 POINT SOFT RESTRAINTS STATUS, KEPT HOB OVER 30 DEGREE, MADE LOWER BED POSITION, PROVIDED CALL LIGHT WITHIN REACH, ON BED ALARM, WILL CONTINUE TO MONITOR.
--- NOTE | 2019-02-20 22:00 | NUR ---
NURSE NOTES: REPOSITIONED, ORAL CARE WAS DONE.
[2019-02-20] MEDS: Phenylephrine 50 MG in D5W 245 ML IV SCH (22:30)
[2019-02-21] VITALS (29 sets, daily range): BP systolic 74–123; BP diastolic 45–75
--- NOTE | 2019-02-21 | NUR ---
NURSE NOTES: NO PAIN OR DISTRESS NOTED AT THIS TIME, WILL CONTINUE PLAN OF CARE.
--- NOTE | 2019-02-21 02:00 | NUR ---
NURSE NOTES: PATIENT TRIED TO REMOVE LINE, RELEASED RESTRAINTS AND REAPPLIED FOR SAFETY, WILL CONTINUE TO MONITOR.
[2019-02-21] MEDS: LORazepam Inj 2mg/ml 1ml IV PRN (03:34)
--- NOTE | 2019-02-21 03:34 | NUR ---
NURSE NOTES: PATIENT IRRITABLE AND ANXIOUS STATUS, GIVEN ATIVAN 1MG BY IVP SLOWLY PRN ORDERED, SECURED RESTRAINTS, WILL CONTINUE TO MONITOR.
--- NOTE | 2019-02-21 04:30 | NUR ---
NURSE NOTES: MORNING CARE AND ORAL CARE WAS DONE.
[2019-02-21 05:16] LABS: INR 1.6 (0.9-1.1)
[2019-02-21 05:17] LABS: HEMATOCRIT 24.3 % (42.0-52.0); HEMOGLOBIN 8.4 G/DL (14.2-18.0); MEAN CORPUSCULAR VOLUME 96 FL (80-99); PLATELET COUNT 163 K/UL (150-450); RED BLOOD COUNT 2.54 M/UL (4.70-6.10); RED CELL DISTRIBUTION WIDTH 15.2 % (11.6-14.8)
[2019-02-21 05:30] LABS: ALANINE AMINOTRANSFERASE 66 U/L (12-78); ALBUMIN 1.6 G/DL (3.4-5.0); ALBUMIN/GLOBULIN RATIO 0.6 (1.0-2.7); ALKALINE PHOSPHATASE 176 U/L (46-116); ANION GAP 10 mmol/L (5-15); ASPARTATE AMINO TRANSFERASE 191 U/L (15-37); BILIRUBIN,TOTAL 5.6 MG/DL (0.2-1.0); BLOOD UREA NITROGEN 8 mg/dL (7-18); CALCIUM 7.1 MG/DL (8.5-10.1); CARBON DIOXIDE 25 MMOL/L (21-32); CHLORIDE 107 MMOL/L (98-107); CREATININE 0.7 MG/DL (0.55-1.30); POTASSIUM 3.2 MMOL/L (3.5-5.1); SODIUM 141 MMOL/L (136-145)
[2019-02-21] MEDS: Piperacillin/Tazobactam 3.375 GM in NS 110 ML IVPB SCH ×3 (05:32→21:57)
[2019-02-21 05:33] LABS: WHITE BLOOD COUNT 29.4 K/UL (4.8-10.8)
[2019-02-21 05:44] LABS: BILIRUBIN,DIRECT 4.7 MG/DL (0.0-0.3)
--- NOTE | 2019-02-21 06:20 | NUR ---
NURSE NOTES: NO ACUTE DISTRESS NOTED AT THIS SHIFT.
--- NOTE | 2019-02-21 07:10 | NUR ---
NURSE NOTES: Received pt from ESHA Berrios. Patient is lightly sedated. Able to arouse by touch and voice. Orally intubated, ETT 8.0/24cm at lip line, AC 26/TV 500/Fio2 40%/PEEP +5. Spo2 100%, RR 26. Bilateral soft restraints in place for safety and impulsiveness. Skin intact and warm to touch. Side rails padded for seizure precautions. OGT clamped and NPO since KS for abdominal US this morning. Aguilar catheter draining bright yellow urine to gravity. Rectal tube draining greenish brown loose stool to gravity. Abdomen is slightly firm and ascitic. Patient has a BAUDILIO PICC running NS@50ml/hr. Chemical burn noted on scrotum and weeping noted from old left femoral TLC site. Bed locked, alarmed and in lowest position. Will continue plan of care.
--- NOTE | 2019-02-21 07:15 | NUR ---
HAND-OFF: Report given to ESHA LIMA.
--- NOTE | 2019-02-21 07:23 | NUR ---
RESPIRATORY NOTE: Received pt on ordered vent settings. Pt airway is patent and secured. Suctioned pt prn. Vent alarms are on and audible. Vent is plugged into red outlet. Will monitor pt progress.
[2019-02-21] MEDS: Vasopressin 100 UNITS in NS 95 ML IV SCH (07:39)
--- NOTE | 2019-02-21 08:52 | Neurology Progress Note ---
Interim History Interim History ROS Limited/Unobtainable: Yes Interim History eyes closed but able to open and follow commands US being done Objective Physical Exam Last Vital Signs Date Time Temp Pulse Resp B/P (MAP) Pulse Ox O2 Delivery O2 Flow Rate FiO2 02/21/19 07:23 112 32 40 02/21/19 07:00 110/69 (83) 100 02/21/19 04:00 98.1 02/21/19 04:00 Mechanical Ventilator 02/14/19 15:15 2.0 Laboratory Tests Test 02/20/19 16:00 02/21/19 03:50 Urine Color [place] Urine Appearance Cloudy Urine pH 6.5 (4.5-8.0) Urine Specific [place] 1.010 (1.005-1.035) Urine Protein 1+ (NEGATIVE) H Urine Glucose (UA) Negative (NEGATIVE) Urine Ketones Negative (NEGATIVE) Urine Blood 5+ (NEGATIVE) H Urine Nitrite Negative (NEGATIVE) Urine Bilirubin 1+ (NEGATIVE) H Urine Ictotest Positive (NEGATIVE) Urine Urobilinogen Normal MG/DL (0.0-1.0) Urine Leukocyte Esterase 3+ (NEGATIVE) H Urine RBC Tntc /HPF (0 - 0) H Urine WBC 10-15 /HPF (0 - 0) H Urine Squamous Epithelial Cells None /LPF (NONE/OCC) Urine Bacteria Few /HPF (NONE) Lactic Acid Level 1.40 mmol/L (0.4-2.0) White Blood Count 29.4 K/UL (4.8-10.8) *H Red Blood Count 2.54 M/UL (4.70-6.10) L Hemoglobin 8.4 G/DL (14.2-18.0) L Hematocrit 24.3 % (42.0-52.0) L Mean Corpuscular Volume 96 FL (80-99) Mean Corpuscular Hemoglobin 33.3 PG (27.0-31.0) H Mean Corpuscular Hemoglobin Concent 34.7 G/DL (32.0-36.0) Red Cell Distribution Width 15.2 % (11.6-14.8) H Platelet Count 163 K/UL (150-450) # Mean Platelet Volume 10.1 FL (6.5-10.1) Neutrophils (%) (Auto) % (45.0-75.0) Lymphocytes (%) (Auto) % (20.0-45.0) Monocytes (%) (Auto) % (1.0-10.0) Eosinophils (%) (Auto) % (0.0-3.0) Basophils (%) (Auto) % (0.0-2.0) Differential Total Cells Counted 100 Neutrophils % (Manual) 80 % (45-75) H Lymphocytes % (Manual) 5 % (20-45) L Monocytes % (Manual) 10 % (1-10) Eosinophils % (Manual) 0 % (0-3) Basophils % (Manual) 0 % (0-2) Band Neutrophils 5 % (0-8) Platelet Estimate Adequate Platelet Morphology Giant Platelets 1+ Polychromasia 1+ Anisocytosis 1+ Erythrocyte Sedimentation Rate 83 MM/HR (0-20) H Prothrombin Time 16.2 SEC (9.30-11.50) H Prothromb Time International Ratio 1.6 (0.9-1.1) H Activated Partial Thromboplast Time 34 SEC (23-33) H Sodium Level 141 MMOL/L (136-145) Potassium Level 3.2 MMOL/L (3.5-5.1) L Chloride Level 107 MMOL/L (98-107) Carbon Dioxide Level 25 MMOL/L (21-32) Anion Gap 10 mmol/L (5-15) Blood Urea Nitrogen 8 mg/dL (7-18) Creatinine 0.7 MG/DL (0.55-1.30) Estimat Glomerular Filtration Rate > 60 mL/min (>60) Glucose Level 82 MG/DL (74-106) Calcium Level 7.1 MG/DL (8.5-10.1) L Total Bilirubin 5.6 MG/DL (0.2-1.0) H Direct Bilirubin 4.7 MG/DL (0.0-0.3) H Aspartate Amino Transf (AST/SGOT) 191 U/L (15-37) H Alanine Aminotransferase (ALT/SGPT) 66 U/L (12-78) Alkaline Phosphatase 176 U/L (46-116) H C-Reactive Protein, Quantitative 9.5 mg/dL (0.00-0.90) H Total Protein 4.2 G/DL (6.4-8.2) L Albumin 1.6 G/DL (3.4-5.0) L Globulin 2.6 g/dL Albumin/Globulin Ratio 0.6 (1.0-2.7) L Amylase Level 123 U/L (25-115) H Lipase 855 U/L (73-393) H Head: normocophalic Neck: no rigidity EENT: benign Neurologic Exam Cranial Nerves III, IV, : PERRLA Motor System: no involuntary movement Objective pupils 3 mm reactive no nuchal rigidity minimal withdrawal intubated cc time 35 min Impression/Recommendations Problems: (1) Episode of confusion (2) Tachycardia (3) Fever (4) Diarrhea (5) Altered mental status (6) Alcohol withdrawal seizure (7) Oral thrush (8) Electrolyte and fluid disorder (9) Aspiration pneumonia (10) Alcohol withdrawal seizure (11) Non-compliance (12) Seizure disorder Status: doing well, unchanged Diagnostic Impression seizure due to non compliance septic shock with bacteremia broad sectrum atb sp intubation dilantin 100 mg tid Poor prognosis Myron Estrella MD Feb 21, 2019 08:52
[2019-02-21] MEDS: Docusate 100mg cap ORAL SCH ×3 (09:00→17:08)
--- NOTE | 2019-02-21 09:00 | NUR ---
NURSE NOTES: abdominal US done at bedside. Restarted TF jevity 1.2@30ml/hr, goal is 40ml/hr. No residual, HOB 35 degrees.
[2019-02-21] MEDS: Pantoprazole Inj IVP SCH ×2 (09:14→20:33)
[2019-02-21] MEDS: levETIRAcetam 500mg/NS100ml 100 ML IVPB SCH ×2 (09:14→20:33)
[2019-02-21] MEDS: Thiamine 100mg in D5W 55ml IVPB SCH (09:14)
[2019-02-21] MEDS: Vancomycin oral 125mg/2.5ml ORAL SCH ×2 (09:15→12:26)
--- NOTE | 2019-02-21 09:45 | NUR ---
NURSE NOTES: Patient unable to wean on CPAP/PS13, patient became tachypneic >40RR and HR >130's. Addendum: 02/21/19 at 1216 by FRANCY LIMA RN CPAP/PS 14*
--- NOTE | 2019-02-21 09:50 | NUR ---
RADIOLOGY: PCXR IS COMPLETE 09AM -NF
[2019-02-21] MEDS: Vancomycin 1.25gm Premix IVPB SCH ×2 (10:14→22:33)
--- NOTE | 2019-02-21 10:15 | NUR ---
Social Service Note ALICIA spoke with sister Josee Brar [phone] to obtain history. Patient is orally intubated and unable to answer questions. Patient with previous admissions with alcohol related issues. Patient sister states patient continues to drink on a regular basis. She is unaware of patient's medication compliancy but believes its not consistent. Patient lives at home with his girlfriend Ming Ascencio [phone]. Unable to determine at this time the level of care patient will require upon discharge. Patient is a full code. No advance directives. Patient[facility] medical [facility] [phone]. Will continue to monitor and and assist as needed.
--- NOTE | 2019-02-21 10:21 | Diagnostic Imaging Report ---
Indication: Dyspnea Comparison: 02/17/2019 A single view chest radiograph was obtained. Findings: Diffuse groundglass opacities have increased since the previous occasion. Heart remains normal in size. There is a left pleural effusion likely present. Tubes and lines are stable. A right PICC line is present. The tip is projected over the SVC. IMPRESSION: Worsening pulmonary edema. PICC line in good position. No change otherwise
[2019-02-21 10:39] LABS: PHOSPHORUS 2.3 MG/DL (2.5-4.9)
--- NOTE | 2019-02-21 11:18 | GI Progress Note ---
Assessment/Plan Problems: (1) Coffee ground emesis ICD Codes: K92.0 - Hematemesis SNOMED: 62655469 (2) Episode of confusion ICD Codes: R41.0 - Disorientation, unspecified SNOMED: 67901225 (3) Gastrointestinal bleed ICD Codes: K92.2 - Gastrointestinal hemorrhage, unspecified SNOMED: 71156610 (4) Abnormal LFTs ICD Codes: R94.5 - Abnormal results of liver function studies SNOMED: 905905873 (5) Diarrhea ICD Codes: R19.7 - Diarrhea, unspecified SNOMED: 19667396 (6) Electrolyte and fluid disorder ICD Codes: E87.8 - Other disorders of electrolyte and fluid balance, not elsewhere classified SNOMED: 70201572 (7) Sepsis ICD Codes: A41.9 - Sepsis, unspecified organism SNOMED: 88323506 Status: stable Status Narrative Discussed with Dr. Bloom. Assessment/Plan black stools per nurses drop in H&H positive stool ob WBC 29.4 off pressors EGD cancelled, will need endoscopy when stable. ppi IV Q 12 monitor H&H Follow-up ID recommendations given leukocytosis monitor H&H, prn transfusions IV hydration plus electrolyte correction fu labs Vit k The patient was seen and examined at bedside and all new and available data was reviewed in the patients chart. I agree with the above findings, impression and plan. (Patient seen earlier today. Signature stamp does not reflect patient encounter time.). - Jones Bloom MD Subjective Subjective limited Objective Last 24 Hour Vital Signs Date Time Temp Pulse Resp B/P (MAP) Pulse Ox O2 Delivery O2 Flow Rate FiO2 02/21/19 09:18 112 32 40 02/21/19 09:00 108 32 98/62 (74) 99 02/21/19 08:10 40 02/21/19 08:00 Mechanical Ventilator 02/21/19 08:00 98.3 109 25 101/62 (75) 97 02/21/19 08:00 40 02/21/19 08:00 111 02/21/19 07:23 112 32 40 02/21/19 07:00 111 32 110/69 (83) 100 02/21/19 07:00 40 02/21/19 06:00 102 27 95/62 (73) 100 02/21/19 05:00 106 31 96/57 (70) 100 02/21/19 04:53 106 31 40 02/21/19 04:00 98.1 113 32 98/59 (72) 100 02/21/19 04:00 40 02/21/19 04:00 Mechanical Ventilator 02/21/19 03:23 120 02/21/19 03:00 118 34 123/75 (91) 100 02/21/19 03:00 114 34 40 02/21/19 02:00 113 32 89/45 (60) 98 02/21/19 01:00 109 24 111/66 (81) 98 02/21/19 00:58 113 32 40 02/21/19 00:00 Mechanical Ventilator 02/21/19 00:00 98.6 108 32 107/62 (77) 97 02/21/19 00:00 40 02/20/19 23:05 119 02/20/19 23:00 113 29 113/71 (85) 99 02/20/19 22:53 117 33 40 02/20/19 22:30 117 120/64 02/20/19 22:00 117 36 120/64 (82) 95 02/20/19 21:00 108 30 99/60 (73) 100 02/20/19 20:45 110 35 40 02/20/19 20:00 Mechanical Ventilator 02/20/19 20:00 40 02/20/19 20:00 98.6 113 34 105/54 (71) 97 02/20/19 19:27 115 02/20/19 19:00 115 29 101/70 (80) 93 02/20/19 18:53 116 37 40 02/20/19 18:00 117 25 101/70 (80) 93 02/20/19 17:05 105 30 40 02/20/19 17:00 103 25 91/57 (68) 93 02/20/19 16:00 105 02/20/19 16:00 Mechanical Ventilator 02/20/19 16:00 40 02/20/19 16:00 98.2 106 26 92/56 (68) 100 02/20/19 15:00 118 37 109/69 (82) 95 02/20/19 15:00 40 02/20/19 14:40 40 02/20/19 14:40 115 53 40 02/20/19 14:00 117 29 122/78 (93) 99 02/20/19 13:00 122 29 114/69 (84) 95 02/20/19 12:49 122 44 40 02/20/19 12:00 Mechanical Ventilator 02/20/19 12:00 127 02/20/19 12:00 40 02/20/19 12:00 98.8 109 23 121/76 (91) 100 Intake and Output 02/20/19 02/21/19 19:00 07:00 Intake Total 2222.666 ml 1376.0 ml Output Total 2050 ml 1520 ml Balance 172.666 ml -144.0 ml Free Water 120 ml IV Total 1692.666 ml 1126.0 ml Tube Feeding 410 ml 200 ml Other 50 ml Output Urine Total 2050 ml 1490 ml Stool Total 30 ml # Bowel Movements 1 4 Laboratory Tests Test 02/20/19 16:00 02/21/19 03:50 Urine Color [place] Urine Appearance Cloudy Urine pH 6.5 (4.5-8.0) Urine Specific [place] 1.010 (1.005-1.035) Urine Protein 1+ (NEGATIVE) H Urine Glucose (UA) Negative (NEGATIVE) Urine Ketones Negative (NEGATIVE) Urine Blood 5+ (NEGATIVE) H Urine Nitrite Negative (NEGATIVE) Urine Bilirubin 1+ (NEGATIVE) H Urine Ictotest Positive (NEGATIVE) Urine Urobilinogen Normal MG/DL (0.0-1.0) Urine Leukocyte Esterase 3+ (NEGATIVE) H Urine RBC Tntc /HPF (0 - 0) H Urine WBC 10-15 /HPF (0 - 0) H Urine Squamous Epithelial Cells None /LPF (NONE/OCC) Urine Bacteria Few /HPF (NONE) Lactic Acid Level 1.40 mmol/L (0.4-2.0) White Blood Count 29.4 K/UL (4.8-10.8) *H Red Blood Count 2.54 M/UL (4.70-6.10) L Hemoglobin 8.4 G/DL (14.2-18.0) L Hematocrit 24.3 % (42.0-52.0) L Mean Corpuscular Volume 96 FL (80-99) Mean Corpuscular Hemoglobin 33.3 PG (27.0-31.0) H Mean Corpuscular Hemoglobin Concent 34.7 G/DL (32.0-36.0) Red Cell Distribution Width 15.2 % (11.6-14.8) H Platelet Count 163 K/UL (150-450) # Mean Platelet Volume 10.1 FL (6.5-10.1) Neutrophils (%) (Auto) % (45.0-75.0) Lymphocytes (%) (Auto) % (20.0-45.0) Monocytes (%) (Auto) % (1.0-10.0) Eosinophils (%) (Auto) % (0.0-3.0) Basophils (%) (Auto) % (0.0-2.0) Differential Total Cells Counted 100 Neutrophils % (Manual) 80 % (45-75) H Lymphocytes % (Manual) 5 % (20-45) L Monocytes % (Manual) 10 % (1-10) Eosinophils % (Manual) 0 % (0-3) Basophils % (Manual) 0 % (0-2) Band Neutrophils 5 % (0-8) Platelet Estimate Adequate Platelet Morphology Giant Platelets 1+ Polychromasia 1+ Anisocytosis 1+ Erythrocyte Sedimentation Rate 83 MM/HR (0-20) H Prothrombin Time 16.2 SEC (9.30-11.50) H Prothromb Time International Ratio 1.6 (0.9-1.1) H Activated Partial Thromboplast Time 34 SEC (23-33) H Sodium Level 141 MMOL/L (136-145) Potassium Level 3.2 MMOL/L (3.5-5.1) L Chloride Level 107 MMOL/L (98-107) Carbon Dioxide Level 25 MMOL/L (21-32) Anion Gap 10 mmol/L (5-15) Blood Urea Nitrogen 8 mg/dL (7-18) Creatinine 0.7 MG/DL (0.55-1.30) Estimat Glomerular Filtration Rate > 60 mL/min (>60) Glucose Level 82 MG/DL (74-106) Calcium Level 7.1 MG/DL (8.5-10.1) L Phosphorus Level 2.3 MG/DL (2.5-4.9) L Magnesium Level 1.6 MG/DL (1.8-2.4) L Total Bilirubin 5.6 MG/DL (0.2-1.0) H Direct Bilirubin 4.7 MG/DL (0.0-0.3) H Aspartate Amino Transf (AST/SGOT) 191 U/L (15-37) H Alanine Aminotransferase (ALT/SGPT) 66 U/L (12-78) Alkaline Phosphatase 176 U/L (46-116) H C-Reactive Protein, Quantitative 9.5 mg/dL (0.00-0.90) H Total Protein 4.2 G/DL (6.4-8.2) L Albumin 1.6 G/DL (3.4-5.0) L Globulin 2.6 g/dL Albumin/Globulin Ratio 0.6 (1.0-2.7) L Amylase Level 123 U/L (25-115) H Lipase 855 U/L (73-393) H Microbiology Date/Time Source Procedure Growth Status 02/20/19 14:00 Sputum Induced Gram Stain - Final Resulted 02/20/19 14:00 Sputum Induced Sputum Culture Pending Resulted 02/20/19 20:20 Stool Clostridium difficile Toxin Assay - Final Complete 02/20/19 16:20 Indwelling Cath Urine Culture - Preliminary NO GROWTH Resulted Height (Feet): 5 Height (Inches): 5.00 Weight (Pounds): 182 General Appearance: no apparent distress Cardiovascular: normal rate Respiratory/Chest: normal breath sounds, no respiratory distress Abdominal Exam: normal bowel sounds, non tender, soft Extremities: normal range of motion, non-tender Juno Naranjo NP Feb 21, 2019 11:18
--- NOTE | 2019-02-21 11:32 | Diagnostic Imaging Report ---
Indication: Abdominal pain Technique: Grayscale and duplex Doppler imaging of the abdomen performed. Comparison: None Findings: The liver is notable for surface nodularity and increased echogenicity and size measuring about 19 cm there is mild ascites. There are bilateral pleural effusions.. Doppler interrogation of the main portal vein shows patency with hepatopedal, monophasic flow. There is no biliary ductal dilatation identified. Gallbladder shows stones and wall thickening. Sonographic Dawson's sign was negative per technologist. CBD is 3 mm. There demonstrated part of the pancreas, aorta and IVC show no definite abnormalities the largely obscured due to bowel gas. Both kidneys appear unremarkable. There is no hydronephrosis. IMPRESSION: Hepatomegaly with fatty infiltration and surface nodularity indicative of chronic disease. Mild ascites Bilateral pleural effusions Cholelithiasis.
--- NOTE | 2019-02-21 12:03 | Pulmonolgy Critical Care Note ---
Critical Care - Asmt/Plan Problems: (1) Seizure disorder (2) Endotracheally intubated (3) Septic shock (4) Sepsis (5) Sinus tachycardia (6) Lactic acid acidosis (7) High anion gap metabolic acidosis (8) STEFANI (acute kidney injury) (9) Abnormal LFTs (10) Coffee ground emesis (11) Gastrointestinal bleed (12) Altered mental status (13) Alcohol withdrawal seizure (14) Ventilator dependent Assessment/Plan: D/C IVF, lasix 20 IV x 1 Replete K, phos and Mag Off pressords Continue Vano po/IV/Zosyn per ID, F/U Cx's F/U GI recs, PPI, EGD when stable Monitor HH and platelets, transfuse as needed Monitor counts, transfuse as neded Monitor for EtOH w/drawal, PRN ativan Continue AEDs, monitor for Sz's, F/U neuro recs FC CCT 35 Critical Care - Objective Last 24 Hour Vital Signs Date Time Temp Pulse Resp B/P (MAP) Pulse Ox O2 Delivery O2 Flow Rate FiO2 02/21/19 11:00 102 25 93/65 (74) 02/21/19 10:00 103 25 84/51 (62) 99 02/21/19 09:18 112 32 40 02/21/19 09:00 108 32 98/62 (74) 99 02/21/19 08:10 40 02/21/19 08:00 Mechanical Ventilator 02/21/19 08:00 98.3 109 25 101/62 (75) 97 02/21/19 08:00 40 02/21/19 08:00 111 02/21/19 07:23 112 32 40 02/21/19 07:00 111 32 110/69 (83) 100 02/21/19 07:00 40 02/21/19 06:00 102 27 95/62 (73) 100 02/21/19 05:00 106 31 96/57 (70) 100 02/21/19 04:53 106 31 40 02/21/19 04:00 98.1 113 32 98/59 (72) 100 02/21/19 04:00 40 02/21/19 04:00 Mechanical Ventilator 02/21/19 03:23 120 02/21/19 03:00 118 34 123/75 (91) 100 02/21/19 03:00 114 34 40 02/21/19 02:00 113 32 89/45 (60) 98 02/21/19 01:00 109 24 111/66 (81) 98 02/21/19 00:58 113 32 40 02/21/19 00:00 Mechanical Ventilator 02/21/19 00:00 98.6 108 32 107/62 (77) 97 02/21/19 00:00 40 02/20/19 23:05 119 02/20/19 23:00 113 29 113/71 (85) 99 02/20/19 22:53 117 33 40 02/20/19 22:30 117 120/64 02/20/19 22:00 117 36 120/64 (82) 95 02/20/19 21:00 108 30 99/60 (73) 100 02/20/19 20:45 110 35 40 02/20/19 20:00 Mechanical Ventilator 02/20/19 20:00 40 02/20/19 20:00 98.6 113 34 105/54 (71) 97 02/20/19 19:27 115 02/20/19 19:00 115 29 101/70 (80) 93 02/20/19 18:53 116 37 40 02/20/19 18:00 117 25 101/70 (80) 93 02/20/19 17:05 105 30 40 02/20/19 17:00 103 25 91/57 (68) 93 02/20/19 16:00 105 02/20/19 16:00 Mechanical Ventilator 02/20/19 16:00 40 02/20/19 16:00 98.2 106 26 92/56 (68) 100 02/20/19 15:00 118 37 109/69 (82) 95 02/20/19 15:00 40 02/20/19 14:40 40 02/20/19 14:40 115 53 40 02/20/19 14:00 117 29 122/78 (93) 99 02/20/19 13:00 122 29 114/69 (84) 95 02/20/19 12:49 122 44 40 02/20/19 12:00 Mechanical Ventilator 02/20/19 12:00 127 02/20/19 12:00 40 02/20/19 12:00 98.8 109 23 121/76 (91) 100 Status: sedated - intubated Condition: critical HEENT: atraumatic, normocephalic Neck: full ROM Lungs: rales - @ bases Heart: HR/BP stable Abdomen: soft, non-tender, active bowel sounds Extremities: edema - 1+, cyanosis - no , clubbing - no Micro: Microbiology Date/Time Source Procedure Growth Status 02/20/19 14:00 Sputum Induced Gram Stain - Final Resulted 02/20/19 14:00 Sputum Induced Sputum Culture Pending Resulted 02/20/19 20:20 Stool Clostridium difficile Toxin Assay - Final Complete 02/20/19 16:20 Indwelling Cath Urine Culture - Preliminary NO GROWTH Resulted Accucheck: 33 Blood Sugars: BS controlled Critical Care - Subjective ROS Limited/Unobtainable: Yes ICU Day: 7 Intubation Day: 6 Interval Events: WCt inc Failed SBT Off NE Condition: critical IV Access: PICC EKG Rhythm: Sinus Tachycardia FI02: 40 Vent Support Breath Rate: 26 Vent Support Mode: AC Vent Tidal Volume: 500 Sputum Amount: Small PEEP: 5.0 PIP: 20 Secretions: N/A Fluids: NS@50 Drips: None Tube Feeding Amount: 30 Residuals: 0 I&O: Intake and Output 02/20/19 02/21/19 19:00 07:00 Intake Total 2222.666 ml 1376.0 ml Output Total 2050 ml 1520 ml Balance 172.666 ml -144.0 ml Free Water 120 ml IV Total 1692.666 ml 1126.0 ml Tube Feeding 410 ml 200 ml Other 50 ml Output Urine Total 2050 ml 1490 ml Stool Total 30 ml # Bowel Movements 1 4 Subjective: [place] CXR: PVC ET-Tube: 7.5 ET Position: 24 Labs: Laboratory Tests Test 02/20/19 16:00 02/21/19 03:50 Urine Color [place] Urine Appearance Cloudy Urine pH 6.5 (4.5-8.0) Urine Specific [place] 1.010 (1.005-1.035) Urine Protein 1+ (NEGATIVE) H Urine Glucose (UA) Negative (NEGATIVE) Urine Ketones Negative (NEGATIVE) Urine Blood 5+ (NEGATIVE) H Urine Nitrite Negative (NEGATIVE) Urine Bilirubin 1+ (NEGATIVE) H Urine Ictotest Positive (NEGATIVE) Urine Urobilinogen Normal MG/DL (0.0-1.0) Urine Leukocyte Esterase 3+ (NEGATIVE) H Urine RBC Tntc /HPF (0 - 0) H Urine WBC 10-15 /HPF (0 - 0) H Urine Squamous Epithelial Cells None /LPF (NONE/OCC) Urine Bacteria Few /HPF (NONE) Lactic Acid Level 1.40 mmol/L (0.4-2.0) White Blood Count 29.4 K/UL (4.8-10.8) *H Red Blood Count 2.54 M/UL (4.70-6.10) L Hemoglobin 8.4 G/DL (14.2-18.0) L Hematocrit 24.3 % (42.0-52.0) L Mean Corpuscular Volume 96 FL (80-99) Mean Corpuscular Hemoglobin 33.3 PG (27.0-31.0) H Mean Corpuscular Hemoglobin Concent 34.7 G/DL (32.0-36.0) Red Cell Distribution Width 15.2 % (11.6-14.8) H Platelet Count 163 K/UL (150-450) # Mean Platelet Volume 10.1 FL (6.5-10.1) Neutrophils (%) (Auto) % (45.0-75.0) Lymphocytes (%) (Auto) % (20.0-45.0) Monocytes (%) (Auto) % (1.0-10.0) Eosinophils (%) (Auto) % (0.0-3.0) Basophils (%) (Auto) % (0.0-2.0) Differential Total Cells Counted 100 Neutrophils % (Manual) 80 % (45-75) H Lymphocytes % (Manual) 5 % (20-45) L Monocytes % (Manual) 10 % (1-10) Eosinophils % (Manual) 0 % (0-3) Basophils % (Manual) 0 % (0-2) Band Neutrophils 5 % (0-8) Platelet Estimate Adequate Platelet Morphology Giant Platelets 1+ Polychromasia 1+ Anisocytosis 1+ Erythrocyte Sedimentation Rate 83 MM/HR (0-20) H Prothrombin Time 16.2 SEC (9.30-11.50) H Prothromb Time International Ratio 1.6 (0.9-1.1) H Activated Partial Thromboplast Time 34 SEC (23-33) H Sodium Level 141 MMOL/L (136-145) Potassium Level 3.2 MMOL/L (3.5-5.1) L Chloride Level 107 MMOL/L (98-107) Carbon Dioxide Level 25 MMOL/L (21-32) Anion Gap 10 mmol/L (5-15) Blood Urea Nitrogen 8 mg/dL (7-18) Creatinine 0.7 MG/DL (0.55-1.30) Estimat Glomerular Filtration Rate > 60 mL/min (>60) Glucose Level 82 MG/DL (74-106) Calcium Level 7.1 MG/DL (8.5-10.1) L Phosphorus Level 2.3 MG/DL (2.5-4.9) L Magnesium Level 1.6 MG/DL (1.8-2.4) L Total Bilirubin 5.6 MG/DL (0.2-1.0) H Direct Bilirubin 4.7 MG/DL (0.0-0.3) H Aspartate Amino Transf (AST/SGOT) 191 U/L (15-37) H Alanine Aminotransferase (ALT/SGPT) 66 U/L (12-78) Alkaline Phosphatase 176 U/L (46-116) H C-Reactive Protein, Quantitative 9.5 mg/dL (0.00-0.90) H Total Protein 4.2 G/DL (6.4-8.2) L Albumin 1.6 G/DL (3.4-5.0) L Globulin 2.6 g/dL Albumin/Globulin Ratio 0.6 (1.0-2.7) L Amylase Level 123 U/L (25-115) H Lipase 855 U/L (73-393) H Han Harris MD Feb 21, 2019 12:03
--- NOTE | 2019-02-21 12:13 | NUR ---
NURSE NOTES: Dr. Harris at bedside making rounds. DC'd IVF and ordered lasix 20mg IVP x1.
--- NOTE | 2019-02-21 12:15 | NUR ---
RADIOLOGY DEPT., CHEST X-RAY DONE.-P.DYE
--- NOTE | 2019-02-21 12:36 | NUR ---
RD ASSESSMENT & RECOMMENDATIONS SEE CARE ACTIVITY FOR COMPLETE ASSESSMENT DAILY ESTIMATED NEEDS: Needs based on Critical care, sepsis 72.7kg 22-30 kcals/kg 2468-5214 total kcals 1.2-2 g protein/kg 87-145 g total protein 25-30 mL/kg 5419-5215 total fluid mLs NUTRITION DIAGNOSIS: 1) Swallowing difficulty r/t respiratory status as evidenced by pt now orally intubated, on pressor support, adm w/ siezures and GIB, now on OGT feeding. 2) Altered nutrition related lab values r/t clinical condition as evidenced by pt w/ low lytes (K 3.2, phos 1.8, Mg 1.6) critically elev WBC, elev ammonia, elev T bili. CURRENT TF:Jevity 1.2 @ 40ml/hr x 24 hrs ENTERAL NUTRITION RECOMMENDATIONS: Jevity 1.2 @ 60ml/hr x 24 hrs + Prosource 1pkt daily to provide 1440ml, 1728kcal, 80g +11g prot, 1162ml free water - INCREASE goal rate to 60ml/hr x 24 hrs - Add prosource 1pkt daily - Flush per MD HOB over 30 degrees ADDITIONAL RECOMMENDATIONS: 1) Monitor HD stability: NE held at this time 2) Obtain a CALIBRATED BED SCALE Pt does not appear c/w WT of 130# per EMR 3) Replete lytes, check daily (low K, phos and mag) 4) Add folic acid: h/o ETOH abuse, low folate (7.3), now off banana bag Continue Thiamine 5) Monitor TF tolerance- lipase and amylase trending up Addendum: 02/21/19 at [address] For TF: FEED W/ HEMODYNAMIC STABILITY-> OTHERWISE TROPHIC FEEDS FOR 5-10ML/HR
--- NOTE | 2019-02-21 13:25 | Nephrology Progress Note ---
Assessment/Plan Problem List: (1) STEFANI (acute kidney injury) Assessment: Cr lower (2) Septic shock (3) Electrolyte and fluid disorder (4) Abnormal LFTs Assessment: fatty liver Assessment - STEFANI (acute kidney injury) - Septic shock - Lactic acid acidosis - Abnormal LFTs - Gastrointestinal bleed - Alcohol withdrawal seizure Plan K and Mag and Phos supplement as needed start feeding Hemodynamic support Pressors / Fluids as needed Aim to correct the electrolyte and acid base imbalance monitor renal parameters gastric support switch dilantin to keppra as LFTs rising per orders Subjective ROS Limited/Unobtainable: Yes Objective Objective Last 24 Hour Vital Signs Date Time Temp Pulse Resp B/P (MAP) Pulse Ox O2 Delivery O2 Flow Rate FiO2 02/21/19 13:15 108 33 40 02/21/19 13:00 98.3 109 24 95/61 (72) 99 02/21/19 12:00 98 25 94/61 (72) 98 02/21/19 12:00 Mechanical Ventilator 02/21/19 11:28 104 02/21/19 11:15 109 34 40 02/21/19 11:00 102 25 93/65 (74) 100 02/21/19 10:00 103 25 84/51 (62) 99 02/21/19 09:30 93/65 02/21/19 09:18 112 32 40 02/21/19 09:00 108 32 98/62 (74) 99 02/21/19 08:10 40 02/21/19 08:00 Mechanical Ventilator 02/21/19 08:00 98.3 109 25 101/62 (75) 97 02/21/19 08:00 40 02/21/19 08:00 111 02/21/19 07:23 112 32 40 02/21/19 07:00 111 32 110/69 (83) 100 02/21/19 07:00 40 02/21/19 06:00 102 27 95/62 (73) 100 02/21/19 05:00 106 31 96/57 (70) 100 02/21/19 04:53 106 31 40 02/21/19 04:00 98.1 113 32 98/59 (72) 100 02/21/19 04:00 40 02/21/19 04:00 Mechanical Ventilator 02/21/19 03:23 120 02/21/19 03:00 118 34 123/75 (91) 100 02/21/19 03:00 114 34 40 02/21/19 02:00 113 32 89/45 (60) 98 02/21/19 01:00 109 24 111/66 (81) 98 02/21/19 00:58 113 32 40 02/21/19 00:00 Mechanical Ventilator 02/21/19 00:00 98.6 108 32 107/62 (77) 97 02/21/19 00:00 40 02/20/19 23:05 119 02/20/19 23:00 113 29 113/71 (85) 99 02/20/19 22:53 117 33 40 02/20/19 22:30 117 120/64 02/20/19 22:00 117 36 120/64 (82) 95 02/20/19 21:00 108 30 99/60 (73) 100 02/20/19 20:45 110 35 40 02/20/19 20:00 Mechanical Ventilator 02/20/19 20:00 40 02/20/19 20:00 98.6 113 34 105/54 (71) 97 02/20/19 19:27 115 02/20/19 19:00 115 29 101/70 (80) 93 02/20/19 18:53 116 37 40 02/20/19 18:00 117 25 101/70 (80) 93 02/20/19 17:05 105 30 40 02/20/19 17:00 103 25 91/57 (68) 93 02/20/19 16:00 105 02/20/19 16:00 Mechanical Ventilator 02/20/19 16:00 40 02/20/19 16:00 98.2 106 26 92/56 (68) 100 02/20/19 15:00 118 37 109/69 (82) 95 02/20/19 15:00 40 02/20/19 14:40 40 02/20/19 14:40 115 53 40 02/20/19 14:00 117 29 122/78 (93) 99 Intake and Output 02/20/19 02/21/19 19:00 07:00 Intake Total 2222.666 ml 1376.0 ml Output Total 2050 ml 1520 ml Balance 172.666 ml -144.0 ml Free Water 120 ml IV Total 1692.666 ml 1126.0 ml Tube Feeding 410 ml 200 ml Other 50 ml Output Urine Total 2050 ml 1490 ml Stool Total 30 ml # Bowel Movements 1 4 Laboratory Tests 02/20/19 16:00: Urine Color [place], Urine Appearance Cloudy, Urine pH 6.5, Urine Specific [place] 1.010, Urine Protein 1+H, Urine Glucose (UA) Negative, Urine Ketones Negative, Urine Blood 5+H, Urine Nitrite Negative, Urine Bilirubin 1+H, Urine Ictotest Positive, Urine Urobilinogen Normal, Urine Leukocyte Esterase 3+H, Urine RBC TntcH, Urine WBC 10-15H, Urine Squamous Epithelial Cells None, Urine Bacteria Few, Lactic Acid Level 1.40 02/21/19 03:50: White Blood Count 29.4*H, Red Blood Count 2.54L, Hemoglobin 8.4L, Hematocrit 24.3L, Mean Corpuscular Volume 96, Mean Corpuscular Hemoglobin 33.3H, Mean Corpuscular Hemoglobin Concent 34.7, Red Cell Distribution Width 15.2H, Platelet Count 163#, Mean Platelet Volume 10.1, Neutrophils (%) (Auto) , Lymphocytes (%) (Auto) , Monocytes (%) (Auto) , Eosinophils (%) (Auto) , Basophils (%) (Auto) , Differential Total Cells Counted 100, Neutrophils % ( Manual) 80H, Lymphocytes % (Manual) 5L, Monocytes % (Manual) 10, Eosinophils % ( Manual) 0, Basophils % (Manual) 0, Band Neutrophils 5, Platelet Estimate Adequate, Platelet Morphology , Giant Platelets 1+, Polychromasia 1+, Anisocytosis 1+, Erythrocyte Sedimentation Rate 83H, Prothrombin Time 16.2H, Prothromb Time International Ratio 1.6H, Activated Partial Thromboplast Time 34H , Sodium Level 141, Potassium Level 3.2L, Chloride Level 107, Carbon Dioxide Level 25, Anion Gap 10, Blood Urea Nitrogen 8, Creatinine 0.7, Estimat Glomerular Filtration Rate > 60, Glucose Level 82, Calcium Level 7.1L, Phosphorus Level 2.3L, Magnesium Level 1.6L, Total Bilirubin 5.6H, Direct Bilirubin 4.7H, Aspartate Amino Transf (AST/SGOT) 191H, Alanine Aminotransferase (ALT/SGPT) 66, Alkaline Phosphatase 176H, C-Reactive Protein, Quantitative 9.5H, Total Protein 4.2L, Albumin 1.6L, Globulin 2.6, Albumin/ Globulin Ratio 0.6L, Amylase Level 123H, Lipase 855H Height (Feet): 5 Height (Inches): 5.00 Weight (Pounds): 171 General Appearance: no apparent distress EENT: other - vented Cardiovascular: tachycardia Respiratory/Chest: decreased breath sounds Abdomen: distended Objective no change Scotty Bailon MD Feb 21, 2019 13:25
--- NOTE | 2019-02-21 13:32 | Cardiac Electrophysiology PN ---
Assessment/Plan Assessment/Plan 1. Sinus tachycardia up to 170s. No evidence of acute myocardial infarction . This is likely due to sepsis and anemia and alcohol withdrawal. Echo Nl EF 60% 2. S/P Septic shock off Levophed and broad-spectrum IV antibiotics. 3. Troponin leak. Type 2. Repeat level 0.16 4. Respiratory failure on the vent. Failed weaning again today 5. ETOH withdrawal 6. Seizures with noncompliance. 7. Upper gi bleed. EGD still pending for high WBC DW RN Subjective Subjective In ICU off Levophed on the Vent. In Sinus tach. Failed weaning Objective Last 24 Hour Vital Signs Date Time Temp Pulse Resp B/P (MAP) Pulse Ox O2 Delivery O2 Flow Rate FiO2 02/21/19 13:15 108 33 40 02/21/19 13:00 98.3 109 24 95/61 (72) 99 02/21/19 12:00 98 25 94/61 (72) 98 02/21/19 12:00 Mechanical Ventilator 02/21/19 11:28 104 02/21/19 11:15 109 34 40 02/21/19 11:00 102 25 93/65 (74) 100 02/21/19 10:00 103 25 84/51 (62) 99 02/21/19 09:30 93/65 02/21/19 09:18 112 32 40 02/21/19 09:00 108 32 98/62 (74) 99 02/21/19 08:10 40 02/21/19 08:00 Mechanical Ventilator 02/21/19 08:00 98.3 109 25 101/62 (75) 97 02/21/19 08:00 40 02/21/19 08:00 111 02/21/19 07:23 112 32 40 02/21/19 07:00 111 32 110/69 (83) 100 02/21/19 07:00 40 02/21/19 06:00 102 27 95/62 (73) 100 02/21/19 05:00 106 31 96/57 (70) 100 02/21/19 04:53 106 31 40 02/21/19 04:00 98.1 113 32 98/59 (72) 100 02/21/19 04:00 40 02/21/19 04:00 Mechanical Ventilator 02/21/19 03:23 120 02/21/19 03:00 118 34 123/75 (91) 100 02/21/19 03:00 114 34 40 02/21/19 02:00 113 32 89/45 (60) 98 02/21/19 01:00 109 24 111/66 (81) 98 02/21/19 00:58 113 32 40 02/21/19 00:00 Mechanical Ventilator 02/21/19 00:00 98.6 108 32 107/62 (77) 97 02/21/19 00:00 40 02/20/19 23:05 119 02/20/19 23:00 113 29 113/71 (85) 99 02/20/19 22:53 117 33 40 02/20/19 22:30 117 120/64 02/20/19 22:00 117 36 120/64 (82) 95 02/20/19 21:00 108 30 99/60 (73) 100 02/20/19 20:45 110 35 40 02/20/19 20:00 Mechanical Ventilator 02/20/19 20:00 40 02/20/19 20:00 98.6 113 34 105/54 (71) 97 02/20/19 19:27 115 02/20/19 19:00 115 29 101/70 (80) 93 02/20/19 18:53 116 37 40 02/20/19 18:00 117 25 101/70 (80) 93 02/20/19 17:05 105 30 40 02/20/19 17:00 103 25 91/57 (68) 93 02/20/19 16:00 105 02/20/19 16:00 Mechanical Ventilator 02/20/19 16:00 40 02/20/19 16:00 98.2 106 26 92/56 (68) 100 02/20/19 15:00 118 37 109/69 (82) 95 02/20/19 15:00 40 02/20/19 14:40 40 02/20/19 14:40 115 53 40 02/20/19 14:00 117 29 122/78 (93) 99 Intake and Output 02/20/19 02/21/19 19:00 07:00 Intake Total 2222.666 ml 1376.0 ml Output Total 2050 ml 1520 ml Balance 172.666 ml -144.0 ml Free Water 120 ml IV Total 1692.666 ml 1126.0 ml Tube Feeding 410 ml 200 ml Other 50 ml Output Urine Total 2050 ml 1490 ml Stool Total 30 ml # Bowel Movements 1 4 Laboratory Tests Test 02/20/19 16:00 02/21/19 03:50 Urine Color [place] Urine Appearance Cloudy Urine pH 6.5 (4.5-8.0) Urine Specific [place] 1.010 (1.005-1.035) Urine Protein 1+ (NEGATIVE) H Urine Glucose (UA) Negative (NEGATIVE) Urine Ketones Negative (NEGATIVE) Urine Blood 5+ (NEGATIVE) H Urine Nitrite Negative (NEGATIVE) Urine Bilirubin 1+ (NEGATIVE) H Urine Ictotest Positive (NEGATIVE) Urine Urobilinogen Normal MG/DL (0.0-1.0) Urine Leukocyte Esterase 3+ (NEGATIVE) H Urine RBC Tntc /HPF (0 - 0) H Urine WBC 10-15 /HPF (0 - 0) H Urine Squamous Epithelial Cells None /LPF (NONE/OCC) Urine Bacteria Few /HPF (NONE) Lactic Acid Level 1.40 mmol/L (0.4-2.0) White Blood Count 29.4 K/UL (4.8-10.8) *H Red Blood Count 2.54 M/UL (4.70-6.10) L Hemoglobin 8.4 G/DL (14.2-18.0) L Hematocrit 24.3 % (42.0-52.0) L Mean Corpuscular Volume 96 FL (80-99) Mean Corpuscular Hemoglobin 33.3 PG (27.0-31.0) H Mean Corpuscular Hemoglobin Concent 34.7 G/DL (32.0-36.0) Red Cell Distribution Width 15.2 % (11.6-14.8) H Platelet Count 163 K/UL (150-450) # Mean Platelet Volume 10.1 FL (6.5-10.1) Neutrophils (%) (Auto) % (45.0-75.0) Lymphocytes (%) (Auto) % (20.0-45.0) Monocytes (%) (Auto) % (1.0-10.0) Eosinophils (%) (Auto) % (0.0-3.0) Basophils (%) (Auto) % (0.0-2.0) Differential Total Cells Counted 100 Neutrophils % (Manual) 80 % (45-75) H Lymphocytes % (Manual) 5 % (20-45) L Monocytes % (Manual) 10 % (1-10) Eosinophils % (Manual) 0 % (0-3) Basophils % (Manual) 0 % (0-2) Band Neutrophils 5 % (0-8) Platelet Estimate Adequate Platelet Morphology Giant Platelets 1+ Polychromasia 1+ Anisocytosis 1+ Erythrocyte Sedimentation Rate 83 MM/HR (0-20) H Prothrombin Time 16.2 SEC (9.30-11.50) H Prothromb Time International Ratio 1.6 (0.9-1.1) H Activated Partial Thromboplast Time 34 SEC (23-33) H Sodium Level 141 MMOL/L (136-145) Potassium Level 3.2 MMOL/L (3.5-5.1) L Chloride Level 107 MMOL/L (98-107) Carbon Dioxide Level 25 MMOL/L (21-32) Anion Gap 10 mmol/L (5-15) Blood Urea Nitrogen 8 mg/dL (7-18) Creatinine 0.7 MG/DL (0.55-1.30) Estimat Glomerular Filtration Rate > 60 mL/min (>60) Glucose Level 82 MG/DL (74-106) Calcium Level 7.1 MG/DL (8.5-10.1) L Phosphorus Level 2.3 MG/DL (2.5-4.9) L Magnesium Level 1.6 MG/DL (1.8-2.4) L Total Bilirubin 5.6 MG/DL (0.2-1.0) H Direct Bilirubin 4.7 MG/DL (0.0-0.3) H Aspartate Amino Transf (AST/SGOT) 191 U/L (15-37) H Alanine Aminotransferase (ALT/SGPT) 66 U/L (12-78) Alkaline Phosphatase 176 U/L (46-116) H C-Reactive Protein, Quantitative 9.5 mg/dL (0.00-0.90) H Total Protein 4.2 G/DL (6.4-8.2) L Albumin 1.6 G/DL (3.4-5.0) L Globulin 2.6 g/dL Albumin/Globulin Ratio 0.6 (1.0-2.7) L Amylase Level 123 U/L (25-115) H Lipase 855 U/L (73-393) H Microbiology Date/Time Source Procedure Growth Status 02/20/19 14:00 Sputum Induced Gram Stain - Final Resulted 02/20/19 14:00 Sputum Induced Sputum Culture Pending Resulted 02/20/19 20:20 Stool Clostridium difficile Toxin Assay - Final Complete 02/20/19 16:20 Indwelling Cath Urine Culture - Preliminary NO GROWTH Resulted Objective HEAD AND NECK: No JVD.Orally intubated with OG tube LUNGS: Decreased breath sounds. CARDIOVASCULAR: Regular S1 and S2 with no gallop or murmur. ABDOMEN: Soft. EXTREMITIES: No pitting edema. Fidencio Trevino MD Feb 21, 2019 13:32
--- NOTE | 2019-02-21 13:34 | Hematology/Onc Progress Note ---
Assessment/Plan Assessment/Plan # Bicytopenia with anemia likely due to Gi bleed -- stool occult blood +, requires further eval with gi, also with etoh withdrawal, also can be related to meds/abx --> anemia panel has been reviewed and results are acd --> peripheral smear reviewed and not noted to have blasts --> Flow cytometry is pending --> wbc is better at this time, could be related to infection, gram neg --> started on folate 1mg po daily (LOW FOLATE) # Anemia of chronic disease, per anemia panel --> hgb trend 8-->7-->8-->9 --> may require gi eval when more stable with scope (EGD) --> transfuse if hb <7 # Sinus tachycardia up to 170s. No evidence of acute myocardial infarction . --> This is likely due to sepsis and anemia and alcohol withdrawal. Echo Nl EF 60% # Leukocytosis due to Septic shock and severe Lactic acidosis on Levophed and broad-spectrum IV antibiotics. --> per ID care, continue abx --> review flow --> pressor as needed # Troponin leak. Type 2. --> per cards # Respiratory failure on the vent. Failed weaning --> sbt trial per pulm # ETOH withdrawal # Seizures with noncompliance. Greatly appreciate consultation. Subjective Constitutional: Denies: no symptoms, chills, fever, malaise, weakness, other HEENT: Denies: no symptoms, eye pain, blurred vision, tearing, double vision, ear pain, ear discharge, nose pain, nose congestion, throat pain, throat swelling, mouth pain, mouth swelling, other Cardiovascular: Denies: no symptoms, chest pain, edema, irregular heart rate, lightheadedness, palpitations, syncope, other Respiratory: Denies: no symptoms, cough, shortness of breath, SOB with excertion, SOB at rest, sputum, wheezing, other Gastrointestinal/Abdominal: Denies: no symptoms, abdomen distended, abdominal pain, black stools, tarry stools, blood in stool, constipated, diarrhea, difficulty swallowing, nausea, poor appetite, poor fluid intake, rectal bleeding , vomiting, other Neurologic/Psychiatric: Denies: no symptoms, anxiety, depressed, emotional problems, headache, numbness, paresthesia, pre-existing deficit, seizure, tingling, tremors, weakness, other Endocrine: Denies: no symptoms, excessive sweating, flushing, intolerance to cold, intolerance to heat, increased hunger, increased thirst, increased urine, unexplained weight gain, unexplained weight loss, other Hematologic/Lymphatic: Denies: no symptoms, anemia, easy bleeding, easy bruising, adenopathy, other Allergies: Coded Allergies: No Known Allergies (Unverified , 02/10/15) Subjective 02/20: intubated, counts are better, on vent, sbt in process, no f/c, mag low 02/21: endoscopy on hold at this time, bloody stool, plt better, on abx Objective Objective Current Medications Medications (Trade) Dose Ordered Sig/Tonny Route PRN Reason Start Time Stop Time Status Last Admin Dose Admin Acetaminophen (Tylenol) 650 mg Q4H PRN ORAL Mild Pain (Pain Scale 1-3) 02/16/19 00:30 03/16/19 12:29 02/17/19 04:53 Acetaminophen (Tylenol) 650 mg Q4H PRN RECTAL Mild Pain (Pain Scale 1-3) 02/16/19 04:30 03/18/19 04:29 02/16/19 04:31 Bisacodyl (Dulcolax) 10 mg HSPRN PRN RECTAL Constipation 02/16/19 21:00 03/16/19 20:59 Chlorhexidine Gluconate (Stephanie-Hex 2%) 1 applic DAILY@2000 TOPIC 02/19/19 20:00 03/21/19 19:59 02/20/19 19:42 Dextrose (Dextrose 50%) 25 ml Q30M PRN IV Hypoglycemia 02/15/19 22:15 03/16/19 16:14 Dextrose (Dextrose 50%) 50 ml Q30M PRN IV Hypoglycemia 02/15/19 22:15 03/16/19 16:14 02/16/19 06:32 Docusate Sodium (Colace) 100 mg TID ORAL 02/16/19 18:00 03/16/19 20:59 02/20/19 17:38 Fluconazole/ Sodium Chloride 200 ml @ 200 mls/hr Q24H IV 02/20/19 15:00 02/27/19 14:59 02/20/19 14:19 Furosemide (Lasix) 20 mg ONCE IV 02/21/19 12:15 02/21/19 15:00 02/21/19 12:26 Levetiracetam 100 ml @ 400 mls/hr Q12HR IVPB 02/19/19 09:00 03/21/19 08:59 02/21/19 09:14 Lorazepam (Ativan 2mg/ml 1ml) 1 mg Q2H PRN IV For Anxiety 02/16/19 09:00 02/23/19 08:59 02/21/19 03:34 Lorazepam (Ativan 2mg/ml 1ml) 1 mg Q4H PRN IV For Seizures 02/16/19 00:15 02/23/19 00:14 02/19/19 11:03 Magnesium Sulfate 100 ml @ 100 mls/hr Q1H IVPB 02/21/19 13:30 02/21/19 17:29 Norepinephrine Bitartrate 8 mg/ Dextrose 508 ml @ 0 mls/hr Q24H IV 02/16/19 09:30 03/18/19 09:29 02/19/19 10:04 Ondansetron HCl (Zofran) 4 mg Q6H PRN IVP Nausea & Vomiting 02/16/19 01:00 03/16/19 12:59 Pantoprazole (Protonix) 40 mg EVERY 12 HOURS IVP 02/16/19 09:00 03/18/19 08:59 02/21/19 09:14 Phenylephrine HCl 50 mg/Dextrose 250 ml @ 0 mls/hr Q24H IV 02/16/19 22:30 03/18/19 22:29 Piperacillin Sod/ Tazobactam Sod 3.375 gm/Sodium Chloride 110 ml @ 27.5 mls/hr Q8HR IVPB 02/18/19 14:00 02/25/19 13:59 02/21/19 12:26 Potassium Phosphate 30 mm/ Sodium Chloride 285 ml @ 47.5 mls/hr ONCE IV 02/21/19 14:00 02/21/19 20:00 Thiamine HCl 100 mg/Dextrose 56 ml @ 112 mls/hr Q24H IVPB 02/16/19 09:00 03/18/19 08:59 02/21/19 09:14 Vancomycin HCl (Firvanq) 125 mg FOUR TIMES A DAY ORAL 02/20/19 18:00 02/27/19 17:59 02/21/19 12:26 Vancomycin HCl (Vanco rx to dose) 1 ea DAILY PRN MISC Per rx protocol 02/16/19 09:00 03/17/19 12:59 Vancomycin HCl/ Dextrose 275 ml @ 183.333 mls/hr Q12HR@1000,2200 IVPB 02/20/19 10:00 02/25/19 09:59 02/21/19 10:14 Vasopressin 100 units/Sodium Chloride 100 ml @ 0 mls/hr Q24H IV 02/16/19 08:15 03/18/19 08:14 02/16/19 08:15 Last 24 Hour Vital Signs Date Time Temp Pulse Resp B/P (MAP) Pulse Ox O2 Delivery O2 Flow Rate FiO2 02/21/19 13:15 108 33 40 02/21/19 13:00 98.3 109 24 95/61 (72) 99 02/21/19 12:00 98 25 94/61 (72) 98 02/21/19 12:00 Mechanical Ventilator 02/21/19 11:28 104 02/21/19 11:15 109 34 40 02/21/19 11:00 102 25 93/65 (74) 100 02/21/19 10:00 103 25 84/51 (62) 99 02/21/19 09:30 93/65 02/21/19 09:18 112 32 40 02/21/19 09:00 108 32 98/62 (74) 99 02/21/19 08:10 40 02/21/19 08:00 Mechanical Ventilator 02/21/19 08:00 98.3 109 25 101/62 (75) 97 02/21/19 08:00 40 02/21/19 08:00 111 02/21/19 07:23 112 32 40 02/21/19 07:00 111 32 110/69 (83) 100 02/21/19 07:00 40 02/21/19 06:00 102 27 95/62 (73) 100 02/21/19 05:00 106 31 96/57 (70) 100 02/21/19 04:53 106 31 40 02/21/19 04:00 98.1 113 32 98/59 (72) 100 02/21/19 04:00 40 02/21/19 04:00 Mechanical Ventilator 02/21/19 03:23 120 02/21/19 03:00 118 34 123/75 (91) 100 02/21/19 03:00 114 34 40 02/21/19 02:00 113 32 89/45 (60) 98 02/21/19 01:00 109 24 111/66 (81) 98 02/21/19 00:58 113 32 40 02/21/19 00:00 Mechanical Ventilator 02/21/19 00:00 98.6 108 32 107/62 (77) 97 02/21/19 00:00 40 02/20/19 23:05 119 02/20/19 23:00 113 29 113/71 (85) 99 02/20/19 22:53 117 33 40 02/20/19 22:30 117 120/64 02/20/19 22:00 117 36 120/64 (82) 95 02/20/19 21:00 108 30 99/60 (73) 100 02/20/19 20:45 110 35 40 02/20/19 20:00 Mechanical Ventilator 02/20/19 20:00 40 02/20/19 20:00 98.6 113 34 105/54 (71) 97 02/20/19 19:27 115 02/20/19 19:00 115 29 101/70 (80) 93 02/20/19 18:53 116 37 40 02/20/19 18:00 117 25 101/70 (80) 93 02/20/19 17:05 105 30 40 02/20/19 17:00 103 25 91/57 (68) 93 02/20/19 16:00 105 02/20/19 16:00 Mechanical Ventilator 02/20/19 16:00 40 02/20/19 16:00 98.2 106 26 92/56 (68) 100 02/20/19 15:00 118 37 109/69 (82) 95 02/20/19 15:00 40 02/20/19 14:40 40 02/20/19 14:40 115 53 40 02/20/19 14:00 117 29 122/78 (93) 99 02/20/19 13:00 122 29 114/69 (84) 95 02/20/19 12:49 122 44 40 02/20/19 12:00 Mechanical Ventilator 02/20/19 12:00 127 02/20/19 12:00 40 02/20/19 12:00 98.8 109 23 121/76 (91) 100 02/20/19 11:00 133 45 150/78 (102) 94 02/20/19 10:36 123 43 40 02/20/19 10:00 125 49 110/63 (79) 99 02/20/19 09:00 120 38 101/62 (75) 100 02/20/19 08:55 123 44 40 02/20/19 08:55 100 02/20/19 08:55 117 39 102/58 (73) 100 02/20/19 08:40 40 02/20/19 08:00 126 02/20/19 08:00 121 26 86/59 (68) 99 02/20/19 08:00 Mechanical Ventilator 02/20/19 08:00 40 02/20/19 07:00 99.4 125 23 93/59 (70) 100 02/20/19 06:44 130 40 40 02/20/19 06:30 129 25 101/61 (74) 100 02/20/19 06:00 129 26 101/55 (70) 100 02/20/19 05:30 128 25 106/52 (70) 100 02/20/19 05:09 132 41 40 02/20/19 05:00 126 25 101/64 (76) 100 02/20/19 04:30 140 28 112/68 (83) 100 02/20/19 04:00 Mechanical Ventilator 02/20/19 04:00 40 02/20/19 04:00 126 02/20/19 04:00 133 27 100/71 (81) 99 02/20/19 03:30 131 23 121/71 (88) 99 02/20/19 03:25 135 31 40 02/20/19 03:00 121/71 02/20/19 03:00 141 34 124/78 (93) 99 02/20/19 02:30 132 36 136/80 (98) 99 02/20/19 02:00 136/80 02/20/19 02:00 133 36 109/72 (84) 98 02/20/19 01:30 132 32 115/76 (89) 99 02/20/19 01:11 133 38 40 02/20/19 01:00 133 25 107/72 (84) 100 02/20/19 01:00 115/76 02/20/19 00:30 122 29 115/71 (86) 99 02/20/19 00:00 120 02/20/19 00:00 40 02/20/19 00:00 Mechanical Ventilator 02/20/19 00:00 115/71 02/20/19 00:00 99.4 120 33 100/59 (73) 100 02/19/19 23:30 119 34 106/65 (79) 94 02/19/19 23:14 116 37 40 02/19/19 23:00 109/66 02/19/19 23:00 117 32 109/66 (80) 100 02/19/19 22:30 113 36 106/67 (80) 99 02/19/19 22:00 111 34 106/68 (81) 100 02/19/19 22:00 106/67 02/19/19 21:30 103 32 40 02/19/19 21:30 112 30 97/67 (77) 100 02/19/19 21:00 109 32 84/62 (69) 99 02/19/19 21:00 97/67 02/19/19 20:30 110 25 95/55 (68) 100 02/19/19 20:00 99.4 104 27 109/69 (82) 100 02/19/19 20:00 40 02/19/19 20:00 100 02/19/19 20:00 95/55 02/19/19 20:00 Mechanical Ventilator 02/19/19 19:07 101 31 40 02/19/19 19:00 96/67 02/19/19 19:00 102 29 96/67 (77) 100 02/19/19 18:30 101 30 98/66 (77) 100 02/19/19 18:00 102 33 100/67 (78) 100 02/19/19 18:00 98/66 02/19/19 17:30 103 28 99/67 (78) 97 02/19/19 17:12 112 31 40 02/19/19 17:00 100/70 02/19/19 17:00 103 28 99/67 (78) 97 02/19/19 16:30 103 28 99/67 (78) 97 02/19/19 16:00 Mechanical Ventilator 02/19/19 16:00 40 02/19/19 16:00 99.6 103 28 99/67 (78) 97 02/19/19 16:00 105 02/19/19 16:00 102/63 02/19/19 15:30 103 28 99/67 (78) 97 02/19/19 15:00 107 28 87/48 (61) 97 02/19/19 15:00 103/68 02/19/19 14:49 104 30 40 02/19/19 14:30 103 26 98/69 (79) 98 02/19/19 14:00 108 32 100/64 (76) 97 02/19/19 14:00 103/64 Intake and Output 02/20/19 02/21/19 19:00 07:00 Intake Total 2222.666 ml 1376.0 ml Output Total 2050 ml 1520 ml Balance 172.666 ml -144.0 ml Free Water 120 ml IV Total 1692.666 ml 1126.0 ml Tube Feeding 410 ml 200 ml Other 50 ml Output Urine Total 2050 ml 1490 ml Stool Total 30 ml # Bowel Movements 1 4 Labs Test 02/18/19 19:50 02/19/19 04:20 02/20/19 04:30 02/20/19 08:50 Vancomycin Level Trough 6.4 ug/mL (5.0-12.0) 10.7 ug/mL (5.0-12.0) White Blood Count 14.7 K/UL (4.8-10.8) 25.9 K/UL (4.8-10.8) Red Blood Count 2.45 M/UL (4.70-6.10) 2.70 M/UL (4.70-6.10) Hemoglobin 8.0 G/DL (14.2-18.0) 8.9 G/DL (14.2-18.0) Hematocrit 23.4 % (42.0-52.0) 26.0 % (42.0-52.0) Mean Corpuscular Volume 96 FL (80-99) 96 FL (80-99) Mean Corpuscular Hemoglobin 32.9 PG (27.0-31.0) 33.1 PG (27.0-31.0) Mean Corpuscular Hemoglobin Concent 34.4 G/DL (32.0-36.0) 34.3 G/DL (32.0-36.0) Red Cell Distribution Width 14.7 % (11.6-14.8) 15.1 % (11.6-14.8) Platelet Count 40 K/UL (150-450) 97 K/UL (150-450) Mean Platelet Volume 10.6 FL (6.5-10.1) 12.0 FL (6.5-10.1) Neutrophils (%) (Auto) % (45.0-75.0) % (45.0-75.0) Lymphocytes (%) (Auto) % (20.0-45.0) % (20.0-45.0) Monocytes (%) (Auto) % (1.0-10.0) % (1.0-10.0) Eosinophils (%) (Auto) % (0.0-3.0) % (0.0-3.0) Basophils (%) (Auto) % (0.0-2.0) % (0.0-2.0) Differential Total Cells Counted 100 100 Neutrophils % (Manual) 74 % (45-75) 72 % (45-75) Lymphocytes % (Manual) 13 % (20-45) 8 % (20-45) Monocytes % (Manual) 7 % (1-10) 18 % (1-10) Eosinophils % (Manual) 5 % (0-3) 0 % (0-3) Basophils % (Manual) 1 % (0-2) 0 % (0-2) Band Neutrophils 0 % (0-8) 2 % (0-8) Platelet Estimate Decreased Decreased Platelet Morphology Normal Normal Hypochromasia 3+ Anisocytosis 1+ 1+ Prothrombin Time 13.8 SEC (9.30-11.50) Prothromb Time International Ratio 1.3 (0.9-1.1) Sodium Level 141 MMOL/L (136-145) 138 MMOL/L (136-145) Potassium Level 2.7 MMOL/L (3.5-5.1) 3.3 MMOL/L (3.5-5.1) Chloride Level 107 MMOL/L (98-107) 104 MMOL/L (98-107) Carbon Dioxide Level 26 MMOL/L (21-32) 26 MMOL/L (21-32) Anion Gap 9 mmol/L (5-15) 8 mmol/L (5-15) Blood Urea Nitrogen 8 mg/dL (7-18) 6 mg/dL (7-18) Creatinine 0.8 MG/DL (0.55-1.30) 0.8 MG/DL (0.55-1.30) Estimat Glomerular Filtration Rate > 60 mL/min (>60) > 60 mL/min (>60) Glucose Level 160 MG/DL (74-106) 124 MG/DL (74-106) Uric Acid 1.6 MG/DL (2.6-7.2) 1.3 MG/DL (2.6-7.2) Calcium Level 7.0 MG/DL (8.5-10.1) 7.2 MG/DL (8.5-10.1) Phosphorus Level 1.7 MG/DL (2.5-4.9) 1.8 MG/DL (2.5-4.9) Magnesium Level 2.1 MG/DL (1.8-2.4) 1.8 MG/DL (1.8-2.4) Total Bilirubin 4.1 MG/DL (0.2-1.0) 5.1 MG/DL (0.2-1.0) Direct Bilirubin 3.3 MG/DL (0.0-0.3) 4.4 MG/DL (0.0-0.3) Gamma Glutamyl Transpeptidase 474 U/L (5-85) 528 U/L (5-85) Aspartate Amino Transf (AST/SGOT) 197 U/L (15-37) 217 U/L (15-37) Alanine Aminotransferase (ALT/SGPT) 59 U/L (12-78) 71 U/L (12-78) Alkaline Phosphatase 123 U/L (46-116) 172 U/L (46-116) Troponin I 0.051 ng/mL (0.000-0.056) C-Reactive Protein, Quantitative 9.2 mg/dL (0.00-0.90) 9.7 mg/dL (0.00-0.90) Pro-B-Type Natriuretic Peptide 1980 pg/mL (0-125) 2054 pg/mL (0-125) Total Protein 4.1 G/DL (6.4-8.2) 5.0 G/DL (6.4-8.2) Albumin 1.7 G/DL (3.4-5.0) 1.8 G/DL (3.4-5.0) Globulin 2.4 g/dL 3.2 g/dL Albumin/Globulin Ratio 0.7 (1.0-2.7) 0.6 (1.0-2.7) Macrocytosis 1+ Test 02/20/19 16:00 02/21/19 03:50 Urine Color [place] Urine Appearance Cloudy Urine pH 6.5 (4.5-8.0) Urine Specific [place] 1.010 (1.005-1.035) Urine Protein 1+ (NEGATIVE) Urine Glucose (UA) Negative (NEGATIVE) Urine Ketones Negative (NEGATIVE) Urine Blood 5+ (NEGATIVE) Urine Nitrite Negative (NEGATIVE) Urine Bilirubin 1+ (NEGATIVE) Urine Ictotest Positive (NEGATIVE) Urine Urobilinogen Normal MG/DL (0.0-1.0) Urine Leukocyte Esterase 3+ (NEGATIVE) Urine RBC Tntc /HPF (0 - 0) Urine WBC 10-15 /HPF (0 - 0) Urine Squamous Epithelial Cells None /LPF (NONE/OCC) Urine Bacteria Few /HPF (NONE) Lactic Acid Level 1.40 mmol/L (0.4-2.0) White Blood Count 29.4 K/UL (4.8-10.8) Red Blood Count 2.54 M/UL (4.70-6.10) Hemoglobin 8.4 G/DL (14.2-18.0) Hematocrit 24.3 % (42.0-52.0) Mean Corpuscular Volume 96 FL (80-99) Mean Corpuscular Hemoglobin 33.3 PG (27.0-31.0) Mean Corpuscular Hemoglobin Concent 34.7 G/DL (32.0-36.0) Red Cell Distribution Width 15.2 % (11.6-14.8) Platelet Count 163 K/UL (150-450) Mean Platelet Volume 10.1 FL (6.5-10.1) Neutrophils (%) (Auto) % (45.0-75.0) Lymphocytes (%) (Auto) % (20.0-45.0) Monocytes (%) (Auto) % (1.0-10.0) Eosinophils (%) (Auto) % (0.0-3.0) Basophils (%) (Auto) % (0.0-2.0) Differential Total Cells Counted 100 Neutrophils % (Manual) 80 % (45-75) Lymphocytes % (Manual) 5 % (20-45) Monocytes % (Manual) 10 % (1-10) Eosinophils % (Manual) 0 % (0-3) Basophils % (Manual) 0 % (0-2) Band Neutrophils 5 % (0-8) Platelet Estimate Adequate Platelet Morphology Giant Platelets 1+ Polychromasia 1+ Anisocytosis 1+ Erythrocyte Sedimentation Rate 83 MM/HR (0-20) Prothrombin Time 16.2 SEC (9.30-11.50) Prothromb Time International Ratio 1.6 (0.9-1.1) Activated Partial Thromboplast Time 34 SEC (23-33) Sodium Level 141 MMOL/L (136-145) Potassium Level 3.2 MMOL/L (3.5-5.1) Chloride Level 107 MMOL/L (98-107) Carbon Dioxide Level 25 MMOL/L (21-32) Anion Gap 10 mmol/L (5-15) Blood Urea Nitrogen 8 mg/dL (7-18) Creatinine 0.7 MG/DL (0.55-1.30) Estimat Glomerular Filtration Rate > 60 mL/min (>60) Glucose Level 82 MG/DL (74-106) Calcium Level 7.1 MG/DL (8.5-10.1) Phosphorus Level 2.3 MG/DL (2.5-4.9) Magnesium Level 1.6 MG/DL (1.8-2.4) Total Bilirubin 5.6 MG/DL (0.2-1.0) Direct Bilirubin 4.7 MG/DL (0.0-0.3) Aspartate Amino Transf (AST/SGOT) 191 U/L (15-37) Alanine Aminotransferase (ALT/SGPT) 66 U/L (12-78) Alkaline Phosphatase 176 U/L (46-116) C-Reactive Protein, Quantitative 9.5 mg/dL (0.00-0.90) Total Protein 4.2 G/DL (6.4-8.2) Albumin 1.6 G/DL (3.4-5.0) Globulin 2.6 g/dL Albumin/Globulin Ratio 0.6 (1.0-2.7) Amylase Level 123 U/L (25-115) Lipase 855 U/L (73-393) Micro Microbiology Date/Time Source Procedure Growth Status 02/20/19 14:00 Sputum Induced Gram Stain - Final Resulted 02/20/19 14:00 Sputum Induced Sputum Culture Pending Resulted 02/20/19 20:20 Stool Clostridium difficile Toxin Assay - Final Complete 02/20/19 16:20 Indwelling Cath Urine Culture - Preliminary NO GROWTH Resulted Height (Feet): 5 Height (Inches): 5.00 Weight (Pounds): 171 Objective Gen: NAD HEENT: atraumatic, other - OGT Lungs: clear ++ vent Heart: HR/BP stable Abdomen: soft, non-tender, active bowel sounds Extremities: no cce Robert Johnston MD Feb 21, 2019 13:34
[2019-02-21] MEDS ORDERED: Potassium Phosphate 30 MM in NS 275 ML IV SCH (14:00)
--- NOTE | 2019-02-21 14:09 | NUR ---
*-* INSURANCE *-* ALL CLINICAL AD REVIEWS HAVE BEEN FAXED TO: VANESSA WATTERS: ANTWON P- [phone] [phone]..............REVIEW/CLINICAL
--- NOTE | 2019-02-21 14:59 | NUR ---
NURSE NOTES: Turned and repositioned. Rectal tube slightly leaking, cleaned patient and kept dry. Reinserted rectal tube. Greenish drainage from ETT suction. Notified Dr. Harris, no new orders given. K phos 30mm infusing now via PICC.
[2019-02-21] MEDS ORDERED: Tubing IV Secondary IV ONE (15:35)
--- NOTE | 2019-02-21 16:15 | NUR ---
CASE MANAGEMENT:REVIEW 02/21/19 SI: SEPSIS. TROPONIN LEAK 98.3 109 24 95/61 99% ON VENT SUPPORT @ 40% FIO2 WBC+19.4 H/H-8.4/24.3 CA-7.1 MAG-1.6 IS: IV MAG SULFATE Q1HRS X3 IV K-PHOS X1 IV DIFLUCAN Q24 IV VANCOMYCIN Q12 IV ZOSYN Q8HRS IV KEPPRA Q12 LEVOPHED GTT : ICU STATUS DCP: PATIENT IS FROM HOME
--- NOTE | 2019-02-21 16:36 | Surgery Progress Note ---
Surgery Progress Note Subjective Procedure Performed left femoral central venous catheter insertion Additional Comments having black stools. loose with rectal tube c diff negative worsening leukocytosis US noted exam stable off pressors on vent not ready to wean Objective Last 24 Hour Vital Signs Date Time Temp Pulse Resp B/P (MAP) Pulse Ox O2 Delivery O2 Flow Rate FiO2 02/21/19 16:00 Mechanical Ventilator 02/21/19 15:13 11 35 40 02/21/19 15:00 100 26 91/53 (66) 99 02/21/19 14:00 103 28 100/50 (67) 99 02/21/19 13:15 108 33 40 02/21/19 13:00 98.3 109 24 95/61 (72) 99 02/21/19 12:00 98 25 94/61 (72) 98 02/21/19 12:00 Mechanical Ventilator 02/21/19 11:28 104 02/21/19 11:15 109 34 40 02/21/19 11:00 102 25 93/65 (74) 100 02/21/19 10:00 103 25 84/51 (62) 99 02/21/19 09:30 93/65 02/21/19 09:18 112 32 40 02/21/19 09:00 108 32 98/62 (74) 99 02/21/19 08:10 40 02/21/19 08:00 Mechanical Ventilator 02/21/19 08:00 98.3 109 25 101/62 (75) 97 02/21/19 08:00 40 02/21/19 08:00 111 02/21/19 07:23 112 32 40 02/21/19 07:00 111 32 110/69 (83) 100 02/21/19 07:00 40 02/21/19 06:00 102 27 95/62 (73) 100 02/21/19 05:00 106 31 96/57 (70) 100 02/21/19 04:53 106 31 40 02/21/19 04:00 98.1 113 32 98/59 (72) 100 02/21/19 04:00 40 02/21/19 04:00 Mechanical Ventilator 02/21/19 03:23 120 02/21/19 03:00 118 34 123/75 (91) 100 02/21/19 03:00 114 34 40 02/21/19 02:00 113 32 89/45 (60) 98 02/21/19 01:00 109 24 111/66 (81) 98 02/21/19 00:58 113 32 40 02/21/19 00:00 Mechanical Ventilator 02/21/19 00:00 98.6 108 32 107/62 (77) 97 02/21/19 00:00 40 02/20/19 23:05 119 02/20/19 23:00 113 29 113/71 (85) 99 02/20/19 22:53 117 33 40 02/20/19 22:30 117 120/64 02/20/19 22:00 117 36 120/64 (82) 95 02/20/19 21:00 108 30 99/60 (73) 100 02/20/19 20:45 110 35 40 02/20/19 20:00 Mechanical Ventilator 02/20/19 20:00 40 02/20/19 20:00 98.6 113 34 105/54 (71) 97 02/20/19 19:27 115 02/20/19 19:00 115 29 101/70 (80) 93 02/20/19 18:53 116 37 40 02/20/19 18:00 117 25 101/70 (80) 93 02/20/19 17:05 105 30 40 02/20/19 17:00 103 25 91/57 (68) 93 I&O Intake and Output 02/20/19 02/21/19 19:00 07:00 Intake Total 2222.666 ml 1376.0 ml Output Total 2050 ml 1520 ml Balance 172.666 ml -144.0 ml Free Water 120 ml IV Total 1692.666 ml 1126.0 ml Tube Feeding 410 ml 200 ml Other 50 ml Output Urine Total 2050 ml 1490 ml Stool Total 30 ml # Bowel Movements 1 4 Cardiovascular: RSR Respiratory: clear Abdomen: soft, distended, non-tender, present bowel sounds Extremities: no edema, no tenderness, no cyanosis Laboratory Tests Test 02/21/19 03:50 White Blood Count 29.4 K/UL (4.8-10.8) *H Red Blood Count 2.54 M/UL (4.70-6.10) L Hemoglobin 8.4 G/DL (14.2-18.0) L Hematocrit 24.3 % (42.0-52.0) L Mean Corpuscular Volume 96 FL (80-99) Mean Corpuscular Hemoglobin 33.3 PG (27.0-31.0) H Mean Corpuscular Hemoglobin Concent 34.7 G/DL (32.0-36.0) Red Cell Distribution Width 15.2 % (11.6-14.8) H Platelet Count 163 K/UL (150-450) # Mean Platelet Volume 10.1 FL (6.5-10.1) Neutrophils (%) (Auto) % (45.0-75.0) Lymphocytes (%) (Auto) % (20.0-45.0) Monocytes (%) (Auto) % (1.0-10.0) Eosinophils (%) (Auto) % (0.0-3.0) Basophils (%) (Auto) % (0.0-2.0) Differential Total Cells Counted 100 Neutrophils % (Manual) 80 % (45-75) H Lymphocytes % (Manual) 5 % (20-45) L Monocytes % (Manual) 10 % (1-10) Eosinophils % (Manual) 0 % (0-3) Basophils % (Manual) 0 % (0-2) Band Neutrophils 5 % (0-8) Platelet Estimate Adequate Platelet Morphology Giant Platelets 1+ Polychromasia 1+ Anisocytosis 1+ Erythrocyte Sedimentation Rate 83 MM/HR (0-20) H Prothrombin Time 16.2 SEC (9.30-11.50) H Prothromb Time International Ratio 1.6 (0.9-1.1) H Activated Partial Thromboplast Time 34 SEC (23-33) H Sodium Level 141 MMOL/L (136-145) Potassium Level 3.2 MMOL/L (3.5-5.1) L Chloride Level 107 MMOL/L (98-107) Carbon Dioxide Level 25 MMOL/L (21-32) Anion Gap 10 mmol/L (5-15) Blood Urea Nitrogen 8 mg/dL (7-18) Creatinine 0.7 MG/DL (0.55-1.30) Estimat Glomerular Filtration Rate > 60 mL/min (>60) Glucose Level 82 MG/DL (74-106) Calcium Level 7.1 MG/DL (8.5-10.1) L Phosphorus Level 2.3 MG/DL (2.5-4.9) L Magnesium Level 1.6 MG/DL (1.8-2.4) L Total Bilirubin 5.6 MG/DL (0.2-1.0) H Direct Bilirubin 4.7 MG/DL (0.0-0.3) H Aspartate Amino Transf (AST/SGOT) 191 U/L (15-37) H Alanine Aminotransferase (ALT/SGPT) 66 U/L (12-78) Alkaline Phosphatase 176 U/L (46-116) H C-Reactive Protein, Quantitative 9.5 mg/dL (0.00-0.90) H Total Protein 4.2 G/DL (6.4-8.2) L Albumin 1.6 G/DL (3.4-5.0) L Globulin 2.6 g/dL Albumin/Globulin Ratio 0.6 (1.0-2.7) L Amylase Level 123 U/L (25-115) H Lipase 855 U/L (73-393) H Plan Problems: (1) Non-compliance Assessment & Plan: Noncompliance with seizure medication with known history of seizures Now had seizure Appreciate neurology input (2) Electrolyte and fluid disorder Assessment & Plan: Likely due to EtOH use and dehydration IV hydration Trend labs (3) Fever (4) Oral thrush (5) Diarrhea (6) Aspiration pneumonia (7) Seizure disorder (8) Tachycardia (9) Altered mental status (10) Alcohol withdrawal seizure (11) Alcohol withdrawal seizure (12) Episode of confusion (13) Coffee ground emesis (14) Gastrointestinal bleed Assessment & Plan: Patient on admission identified to have maroon-colored stool and coffee-ground emesis. Labs noted mild anemia with H&H trending down. No acute active bleed noted but given patient's history high risk for potential ulcers. PPI Appreciate GI input considerations for EGD once stable No evidence of pulmonary embolus, aortic dissection or aneurysm. Posterior basilar consolidation suspicious for pneumonia. Correlate clinically. Trace bilateral pleural effusions. Possible enterocolitis as described above. Please correlate clinically. Mild ascites Fatty liver Cholelithiasis with wall thickening. Cholecystitis not excluded. Small right inguinal hernia containing fat Extensive breathing motion artifact limiting evaluation. We will follow with recommendations thank you (15) Sinus tachycardia (16) Septic shock (17) Sepsis Assessment & Plan: Patient septic leukocytosis improved today lactic acidosis improving anemia renal function declining electrolyte disturbance US noted on pressors now but weaning on IV abx intubated on vent support cont with aggressive resuscitation repeat US ordered noted. likely liver dysfunction. (18) Lactic acid acidosis (19) STEFANI (acute kidney injury) (20) Abnormal LFTs (21) High anion gap metabolic acidosis Juanpablo Marcus Feb 21, 2019 16:36
--- NOTE | 2019-02-21 16:50 | NUR ---
NURSE NOTES: Oral care done. Patient observed chewing on ETT, bite block placed back in. patient is more alert but less agitated but still impulsive. Able to follow simple commands like opening his mouth and blinking eyes. Notified Dr. Negrete C-diff results came back negative, no response yet. Afebrile. No signs of distress noted.
--- NOTE | 2019-02-21 17:30 | NUR ---
NURSE NOTES: Received T/O to discontinue Vanco PO per Dr. Negrete. Read back given and verified.
--- NOTE | 2019-02-21 18:08 | General Progress Note ---
Assessment/Plan Status: stable Assessment/Plan: Assessment/Plan Status: doing well, stable Status Narrative Assessment/Plan: 54 year old male with pMH of seizure disorder and etoh abuse admitted for seizures 2/2 non-compliance #severe septic shock likely 2/2 UTI #Gram negative bacteremia #Acute respiratory failure -Vanc and Zosyn - gentamicin - Fluconazole per ID - Re culture today ordered due to severe increase in the WBC from 15 to 26 to 29 thousand of unclear etiology - CBC in AM - CT 02/18 with atelectasis primarily - Diuresis started and good response -ID consult appreciated - Add Immunoglobulin and hepatitis panel. -f/u cultures -cont ICU care -intubated and mild sedation. He follows commands well. FAILED weaning trial. -vent management per pulmonary -wean as tolerated -Titrate pressors to goal map >65 -abg prn - Reviewed CT chest/abd/pel #Lactic acidosis -2/2 severe shock/ poss abd source/ seizures -CTM -Fluid boluses ordered -Cont mIVF #Coagulopathy # Thrombocytopenia - 40,000 today. Stable for 3 days and has blood tinge urine - Hematology consult with Dr. Johnston appreciated. Flow cytometry pending. -likely 2/2 hepatic injury 2/2 shock - Consumption coagulopathy. - Consider platelet transfusion if LESS than 30K with urine blood tinge color. #Coffee ground emesis likely in setting of GI bleed -H/H trending down. Monitor -GI consult appreciated -Plan for EGD once stable. Cancelled until the patient is hemodynamically more stable, OFF pressors. Reported on HOLD due to leukocytosis. -surgery consult appreciated #Seizures 2/2 noncomplaint with AED -s/p phenytoin load in ED -Cont Phenytoin -Neurology consult appreciated -pending EEG - no seizures noted in last 24 hours -Ativan PRN for seizures -NPO -Seizure precautions #Hypokalemia - Replete as needed #hypophosphatemia - Repleted. #Hypomagnesemia -repleted -CTM Code: Full Subjective ROS Limited/Unobtainable: Yes Allergies: Coded Allergies: No Known Allergies (Unverified , 02/10/15) Objective Last 24 Hour Vital Signs Date Time Temp Pulse Resp B/P (MAP) Pulse Ox O2 Delivery O2 Flow Rate FiO2 02/21/19 17:00 90 26 86/56 (66) 99 02/21/19 16:55 111 36 40 02/21/19 16:00 Mechanical Ventilator 02/21/19 16:00 Mechanical Ventilator 02/21/19 16:00 40 02/21/19 16:00 95 02/21/19 16:00 98.2 95 26 98/59 (72) 99 02/21/19 15:13 11 35 40 02/21/19 15:00 100 26 91/53 (66) 99 02/21/19 14:00 103 28 100/50 (67) 99 02/21/19 13:15 108 33 40 02/21/19 13:00 98.3 109 24 95/61 (72) 99 02/21/19 12:00 98 25 94/61 (72) 98 02/21/19 12:00 Mechanical Ventilator 02/21/19 11:28 104 02/21/19 11:15 109 34 40 02/21/19 11:00 102 25 93/65 (74) 100 02/21/19 10:00 103 25 84/51 (62) 99 02/21/19 09:30 93/65 02/21/19 09:18 112 32 40 02/21/19 09:00 108 32 98/62 (74) 99 02/21/19 08:10 40 02/21/19 08:00 Mechanical Ventilator 02/21/19 08:00 98.3 109 25 101/62 (75) 97 02/21/19 08:00 40 02/21/19 08:00 111 02/21/19 07:23 112 32 40 02/21/19 07:00 111 32 110/69 (83) 100 02/21/19 07:00 40 02/21/19 06:00 102 27 95/62 (73) 100 02/21/19 05:00 106 31 96/57 (70) 100 02/21/19 04:53 106 31 40 02/21/19 04:00 98.1 113 32 98/59 (72) 100 02/21/19 04:00 40 02/21/19 04:00 Mechanical Ventilator 02/21/19 03:23 120 02/21/19 03:00 118 34 123/75 (91) 100 02/21/19 03:00 114 34 40 02/21/19 02:00 113 32 89/45 (60) 98 02/21/19 01:00 109 24 111/66 (81) 98 02/21/19 00:58 113 32 40 02/21/19 00:00 Mechanical Ventilator 02/21/19 00:00 98.6 108 32 107/62 (77) 97 02/21/19 00:00 40 02/20/19 23:05 119 02/20/19 23:00 113 29 113/71 (85) 99 02/20/19 22:53 117 33 40 02/20/19 22:30 117 120/64 02/20/19 22:00 117 36 120/64 (82) 95 02/20/19 21:00 108 30 99/60 (73) 100 02/20/19 20:45 110 35 40 02/20/19 20:00 Mechanical Ventilator 02/20/19 20:00 40 02/20/19 20:00 98.6 113 34 105/54 (71) 97 02/20/19 19:27 115 02/20/19 19:00 115 29 101/70 (80) 93 02/20/19 18:53 116 37 40 Intake and Output 02/20/19 02/21/19 19:00 07:00 Intake Total 2222.666 ml 1376.0 ml Output Total 2050 ml 1520 ml Balance 172.666 ml -144.0 ml Free Water 120 ml IV Total 1692.666 ml 1126.0 ml Tube Feeding 410 ml 200 ml Other 50 ml Output Urine Total 2050 ml 1490 ml Stool Total 30 ml # Bowel Movements 1 4 Laboratory Tests 02/21/19 03:50: White Blood Count 29.4*H, Red Blood Count 2.54L, Hemoglobin 8.4L, Hematocrit 24.3L, Mean Corpuscular Volume 96, Mean Corpuscular Hemoglobin 33.3H, Mean Corpuscular Hemoglobin Concent 34.7, Red Cell Distribution Width 15.2H, Platelet Count 163#, Mean Platelet Volume 10.1, Neutrophils (%) (Auto) , Lymphocytes (%) (Auto) , Monocytes (%) (Auto) , Eosinophils (%) (Auto) , Basophils (%) (Auto) , Differential Total Cells Counted 100, Neutrophils % ( Manual) 80H, Lymphocytes % (Manual) 5L, Monocytes % (Manual) 10, Eosinophils % ( Manual) 0, Basophils % (Manual) 0, Band Neutrophils 5, Platelet Estimate Adequate, Platelet Morphology , Giant Platelets 1+, Polychromasia 1+, Anisocytosis 1+, Erythrocyte Sedimentation Rate 83H, Prothrombin Time 16.2H, Prothromb Time International Ratio 1.6H, Activated Partial Thromboplast Time 34H , Sodium Level 141, Potassium Level 3.2L, Chloride Level 107, Carbon Dioxide Level 25, Anion Gap 10, Blood Urea Nitrogen 8, Creatinine 0.7, Estimat Glomerular Filtration Rate > 60, Glucose Level 82, Calcium Level 7.1L, Phosphorus Level 2.3L, Magnesium Level 1.6L, Total Bilirubin 5.6H, Direct Bilirubin 4.7H, Aspartate Amino Transf (AST/SGOT) 191H, Alanine Aminotransferase (ALT/SGPT) 66, Alkaline Phosphatase 176H, C-Reactive Protein, Quantitative 9.5H, Total Protein 4.2L, Albumin 1.6L, Globulin 2.6, Albumin/ Globulin Ratio 0.6L, Amylase Level 123H, Lipase 855H Height (Feet): 5 Height (Inches): 5.00 Weight (Pounds): 171 General Appearance: WD/WN, moderate distress EENT: PERRL/EOMI Neck: non-tender Cardiovascular: normal peripheral pulses, normal rate Respiratory/Chest: lungs clear, normal breath sounds 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
--- NOTE | 2019-02-21 18:44 | Diagnostic Imaging Report ---
APPROVED REPORT CPT Code: 30244 Present Symptoms Shortness of breath BILATERAL: Imaging reveals a patent deep venous system bilaterally. There is no evidence of thrombus within the femoral, popliteal or tibial segments. The greater saphenous veins are also within normal limits. Doppler indicates normal spontaneous flow within these segments.
--- NOTE | 2019-02-21 19:12 | NUR ---
HAND-OFF: Report given to Yash RN using SBAR. Last bag of magnesium sulfate hung, infusing well.
--- NOTE | 2019-02-21 19:45 | NUR ---
NURSE NOTES: PATIENT SLEEPING STATUS, ON ETT TO VENT AC 26/TV 500/FIO2 40%/ PEEP 5, O2 SATURATION OVER 95% NOTED, OGT INTACT AND PATENT ONGOING JEVITY 1.2 AT 40ML/HR, NO RESIDUE NOTED, ABDOMEN SOFT, HYPERACTIVE BOWEL SOUND TO 4 QUADRANTS, RECTAL TUBE INTACT, DARK GREEN COLOR STOOL DRAINING GRAVITY, F/C INTACT AND PATENT, SLIGHT YELLOW URINE OUTED, ON SCD'S TO BOTH LOWER LEGS, PICC LINE TO RIGHT UPPER ARM, INTACT AND PATENT, 2 POINT SOFT RESTRAINTS FOR SAFETY STATUS, KEPT HOB OVER 30 DEGREE, MADE LOWER BED POSITION, PROVIDED CALL LIGHT WITHIN REACH, ON BED ALARM, WILL CONTINUE TO MONITOR.
[2019-02-21] MEDS: Dyna-Hex 2% Top Sol 2oz TOPIC SCH (19:49)
--- NOTE | 2019-02-21 21:57 | NUR ---
NURSE NOTES: BP 78/50 NOTED, STARTED LEVOPHED DRIP 2MCG/MIN ORDERED, WILL CONTINUE TO MONITOR.
--- NOTE | 2019-02-21 22:09 | NUR ---
NURSE NOTES: PENDING VANCO TROUGH LEVEL AT THIS TIME.
[2019-02-21] MEDS: Phenylephrine 50 MG in D5W 245 ML IV SCH (22:30)
[2019-02-22] VITALS (61 sets, daily range): BP systolic 86–132; BP diastolic 38–79
--- NOTE | 2019-02-22 00:36 | NUR ---
NURSE NOTES: PATIENT AWOKE, ONGOING LEVOPHED DRIP 4MCG/MIN VIA PICC LINE, WILL CONTINUE TO MONITOR.
[2019-02-22] MEDS: LORazepam Inj 2mg/ml 1ml IV PRN (01:29)
--- NOTE | 2019-02-22 02:00 | NUR ---
NURSE NOTES: ORAL CARE WAS DONE, RELEASED RESTRAINTS AND REAPPLIED FOR SAFETY.
--- NOTE | 2019-02-22 04:00 | NUR ---
NURSE NOTES: MORNING CARE WAS DONE, RECTAL TUBE INTACT AND DARK GREENISH LIQUID OUTED.
[2019-02-22 04:54] LABS: HEMATOCRIT 25.3 % (42.0-52.0); HEMOGLOBIN 8.6 G/DL (14.2-18.0); MEAN CORPUSCULAR VOLUME 96 FL (80-99); PLATELET COUNT 283 K/UL (150-450); RED BLOOD COUNT 2.65 M/UL (4.70-6.10); RED CELL DISTRIBUTION WIDTH 15.2 % (11.6-14.8)
[2019-02-22 05:24] LABS: ALANINE AMINOTRANSFERASE 67 U/L (12-78); ALBUMIN 1.4 G/DL (3.4-5.0); ALBUMIN/GLOBULIN RATIO 0.4 (1.0-2.7); ALKALINE PHOSPHATASE 249 U/L (46-116); ANION GAP 10 mmol/L (5-15); ASPARTATE AMINO TRANSFERASE 204 U/L (15-37); BILIRUBIN,TOTAL 6.1 MG/DL (0.2-1.0); BLOOD UREA NITROGEN 7 mg/dL (7-18); CALCIUM 7.5 MG/DL (8.5-10.1); CARBON DIOXIDE 23 MMOL/L (21-32); CHLORIDE 107 MMOL/L (98-107); CREATININE 0.8 MG/DL (0.55-1.30); PHOSPHORUS 2.9 MG/DL (2.5-4.9); SODIUM 140 MMOL/L (136-145)
[2019-02-22 05:27] LABS: WHITE BLOOD COUNT 33.6 K/UL (4.8-10.8)
[2019-02-22 05:44] LABS: POTASSIUM 2.7 MMOL/L (3.5-5.1)
[2019-02-22] MEDS: Piperacillin/Tazobactam 3.375 GM in NS 110 ML IVPB SCH ×3 (05:54→21:51)
--- NOTE | 2019-02-22 06:03 | NUR ---
NURSE NOTES: CALLED DR. LLOYD REGARDING POTASSIUM LEVEL 2.7 THAT EXCHANGER WAS AWARE, WILL BE PAGE DR. REID.
--- NOTE | 2019-02-22 07:03 | NUR ---
HAND-OFF: Report given to Isabela MALIK RN.
--- NOTE | 2019-02-22 07:04 | NUR ---
NURSE NOTES: Received patient from ESHA Berrios. Patient sleeping at this time and restless. Patient blood pressure 113/66 on 4mcg/min Levophed. Will continue to monitor blood pressure and titrate per protocol. Patient showing sinus tachycardia on the threat monitoring analyst at 114 at this time. Patient restless and trying to communicate but has a bite block and ETT 8cm with 24cm at the lip line. Patient on setting AC 26, tidal volume 500, FiO2 40%, and peep 5. Patient tolerating setting with resp rate of 26 and oxygen saturation 93%. Patient has an OGT that is patent, asymptomatic, and verified with auscultation at this time. Patient running tube feeding jevity 1.2 at 40mL/hr with less than 10mL residual. Patient has delgado and rectal tube. Patient has dark eneida urine and dark green stool. Patient on bilateral soft wrist restraint due to patient being witnessed attempting to pull and ETT and OGT. Patient has right upper arm PICC that is patent, asymptomatic, and dressing changed on 02/20. Patient skin intact apart from scrotal excoriation due to cleaning from frequent bowel movements. Patient has potassium level of 2.7 this morning. Will notify Dr Bailon. message left for Dr Armas by senior graduate advisor RN. Bed in low position with bed alarm on and call light in reach.
--- NOTE | 2019-02-22 07:16 | NUR ---
RESPIRATORY NOTE: received pt orally intubated with ETT 7.5, placed 24 cm at the lip. ett secured via anchor fast with no redness visible around facial, mouth area. pt restless and tachypneic at this time. slightly labored breathing. will attempt to wean later this morning and cont to monitor. ambu bag at bedside. vent alarms are set and audible.
[2019-02-22] MEDS: Vasopressin 100 UNITS in NS 95 ML IV SCH (08:15)
--- NOTE | 2019-02-22 08:43 | NUR ---
RESPIRATORY NOTE: attempted to wean pt at 0840 with CPAP PS 8. pt's RR rapidly increased to 44. weaning criteria was semi met. will attempt to wean later again. RN notified
[2019-02-22] MEDS: Pantoprazole Inj IVP SCH ×2 (09:19→20:42)
[2019-02-22] MEDS: Thiamine 100mg in D5W 55ml IVPB SCH (09:19)
[2019-02-22] MEDS: levETIRAcetam 500mg/NS100ml 100 ML IVPB SCH ×2 (09:20→20:42)
--- NOTE | 2019-02-22 09:30 | NUR ---
NURSE NOTES: Patient blood pressure 110/68 on 2mcg/min levophed drip. Will continue to monitor and titrate medication per protocol. Patient failed weaning this morning. Will attempt another weaning trial later when patient has been given time to rest. Patient sleeping at this time but appears confused and restless when he wakes up. Will continue to monitor and reorient patient when needed.
--- NOTE | 2019-02-22 09:51 | Hematology/Onc Progress Note ---
Assessment/Plan Assessment/Plan # Bicytopenia with anemia likely due to Gi bleed -- stool occult blood +, requires further eval with gi, also with etoh withdrawal, also can be related to meds/abx --> anemia panel has been reviewed and results are acd --> peripheral smear reviewed and not noted to have blasts --> wbc is better at this time, could be related to infection, gram neg --> started on folate 1mg po daily (LOW FOLATE) --> Flow cytometry is pending # Anemia of chronic disease, per anemia panel --> hgb trend 8-->7-->8-->9-->8.6 --> may require gi eval when more stable with scope (EGD) --> transfuse if hb <7 # Sinus tachycardia up to 170s. No evidence of acute myocardial infarction . --> This is likely due to sepsis and anemia, alcohol withdrawal --> Echo Nl EF 60% # Leukocytosis due to Septic shock and severe Lactic acidosis on Levophed and broad-spectrum IV antibiotics. --> per ID care, continue abx --> pressor as needed --> vanc/zosyn, flucon # Troponin leak, type 2. --> per cards # Respiratory failure on the vent. Failed weaning --> sbt trial per pulm --> on vent # ETOH withdrawal # Seizures with noncompliance Greatly appreciate consultation. Subjective Constitutional: Denies: no symptoms, chills, fever, malaise, weakness, other HEENT: Denies: no symptoms, eye pain, blurred vision, tearing, double vision, ear pain, ear discharge, nose pain, nose congestion, throat pain, throat swelling, mouth pain, mouth swelling, other Cardiovascular: Denies: no symptoms, chest pain, edema, irregular heart rate, lightheadedness, palpitations, syncope, other Respiratory: Denies: no symptoms, cough, shortness of breath, SOB with excertion, SOB at rest, sputum, wheezing, other Gastrointestinal/Abdominal: Denies: no symptoms, abdomen distended, abdominal pain, black stools, tarry stools, blood in stool, constipated, diarrhea, difficulty swallowing, nausea, poor appetite, poor fluid intake, rectal bleeding , vomiting, other Genitourinary: Denies: no symptoms, burning, discharge, frequency, flank pain, hematuria, incontinence, pain, urgency, other Neurologic/Psychiatric: Denies: no symptoms, anxiety, depressed, emotional problems, headache, numbness, paresthesia, pre-existing deficit, seizure, tingling, tremors, weakness, other Endocrine: Denies: no symptoms, excessive sweating, flushing, intolerance to cold, intolerance to heat, increased hunger, increased thirst, increased urine, unexplained weight gain, unexplained weight loss, other Allergies: Coded Allergies: No Known Allergies (Unverified , 02/10/15) Subjective 02/20: intubated, counts are better, on vent, sbt in process, no f/c, mag low 02/21: endoscopy on hold at this time, bloody stool, plt better, on abx 02/22: no events reported, remains intubated, no bleeding, plt better, k is low, repleted Objective Objective Current Medications Medications (Trade) Dose Ordered Sig/Tonny Route PRN Reason Start Time Stop Time Status Last Admin Dose Admin Acetaminophen (Tylenol) 650 mg Q4H PRN ORAL Mild Pain (Pain Scale 1-3) 02/16/19 00:30 03/16/19 12:29 02/17/19 04:53 Acetaminophen (Tylenol) 650 mg Q4H PRN RECTAL Mild Pain (Pain Scale 1-3) 02/16/19 04:30 03/18/19 04:29 02/16/19 04:31 Bisacodyl (Dulcolax) 10 mg HSPRN PRN RECTAL Constipation 02/16/19 21:00 03/16/19 20:59 Chlorhexidine Gluconate (Stephanie-Hex 2%) 1 applic DAILY@1999 TOPIC 02/19/19 20:00 03/21/19 19:59 02/21/19 19:49 Dextrose (Dextrose 50%) 25 ml Q30M PRN IV Hypoglycemia 02/15/19 22:15 03/16/19 16:14 Dextrose (Dextrose 50%) 50 ml Q30M PRN IV Hypoglycemia 02/15/19 22:15 03/16/19 16:14 02/16/19 06:32 Fluconazole/ Sodium Chloride 200 ml @ 200 mls/hr Q24H IV 02/20/19 15:00 02/27/19 14:59 02/21/19 14:46 Folic Acid (Folate) 1 mg DAILY ORAL 02/22/19 09:00 03/24/19 08:59 02/22/19 09:20 Levetiracetam 100 ml @ 400 mls/hr Q12HR IVPB 02/19/19 09:00 03/21/19 08:59 02/22/19 09:20 Lorazepam (Ativan 2mg/ml 1ml) 1 mg Q2H PRN IV For Anxiety 02/16/19 09:00 02/23/19 08:59 02/22/19 01:29 Lorazepam (Ativan 2mg/ml 1ml) 1 mg Q4H PRN IV For Seizures 02/16/19 00:15 02/23/19 00:14 02/19/19 11:03 Norepinephrine Bitartrate 8 mg/ Dextrose 508 ml @ 0 mls/hr Q24H IV 02/16/19 09:30 03/18/19 09:29 02/21/19 21:57 Ondansetron HCl (Zofran) 4 mg Q6H PRN IVP Nausea & Vomiting 02/16/19 01:00 03/16/19 12:59 Pantoprazole (Protonix) 40 mg EVERY 12 HOURS IVP 02/16/19 09:00 03/18/19 08:59 02/22/19 09:19 Phenylephrine HCl 50 mg/Dextrose 250 ml @ 0 mls/hr Q24H IV 02/16/19 22:30 03/18/19 22:29 Piperacillin Sod/ Tazobactam Sod 3.375 gm/Sodium Chloride 110 ml @ 27.5 mls/hr Q8HR IVPB 02/18/19 14:00 02/25/19 13:59 02/22/19 05:54 Potassium Chloride 100 ml @ 50 mls/hr Q2H IVPB 02/22/19 09:00 02/22/19 16:59 02/22/19 09:20 Thiamine HCl 100 mg/Dextrose 56 ml @ 112 mls/hr Q24H IVPB 02/16/19 09:00 03/18/19 08:59 02/22/19 09:19 Vancomycin HCl (Vanco rx to dose) 1 ea DAILY PRN MISC Per rx protocol 02/16/19 09:00 03/17/19 12:59 Vancomycin HCl/ Dextrose 275 ml @ 183.333 mls/hr Q12HR@1000,2200 IVPB 02/20/19 10:00 02/25/19 09:59 02/21/19 22:33 Vasopressin 100 units/Sodium Chloride 100 ml @ 0 mls/hr Q24H IV 02/16/19 08:15 03/18/19 08:14 02/16/19 08:15 Last 24 Hour Vital Signs Date Time Temp Pulse Resp B/P (MAP) Pulse Ox O2 Delivery O2 Flow Rate FiO2 02/22/19 09:00 110/68 02/22/19 08:41 115 33 40 40 02/22/19 08:40 92 02/22/19 08:15 118 34 118/66 (83) 95 02/22/19 08:00 98.0 119 37 109/69 (82) 94 02/22/19 08:00 110/66 02/22/19 07:30 119 32 118/79 (92) 92 02/22/19 07:12 122 33 40 02/22/19 07:00 108 32 114/76 (89) 95 02/22/19 07:00 107/79 02/22/19 06:30 109 34 102/73 (83) 96 02/22/19 06:00 107 34 105/64 (78) 92 02/22/19 06:00 105/64 02/22/19 05:30 98 26 105/63 (77) 98 02/22/19 05:12 97 27 40 02/22/19 05:00 102/68 02/22/19 05:00 96 26 102/68 (79) 100 02/22/19 04:30 97 30 94/65 (75) 100 02/22/19 04:00 98.2 101 31 97/65 (76) 99 02/22/19 04:00 40 02/22/19 04:00 97/65 02/22/19 04:00 Mechanical Ventilator 02/22/19 03:30 107 34 99/60 (73) 94 02/22/19 03:18 108 35 40 02/22/19 03:13 106 02/22/19 03:00 114/68 02/22/19 03:00 109 29 114/68 (83) 94 02/22/19 02:30 107 28 102/67 (79) 94 02/22/19 02:00 106/67 02/22/19 02:00 116 31 106/67 (80) 94 02/22/19 01:30 121 37 109/63 (78) 94 02/22/19 01:00 111 31 109/64 (79) 94 02/22/19 01:00 109/64 02/22/19 00:55 89 32 40 02/22/19 00:30 107 26 101/67 (78) 94 02/22/19 00:00 98.2 102 28 98/64 (75) 99 02/22/19 00:00 98/64 02/22/19 00:00 40 02/22/19 00:00 Mechanical Ventilator 02/21/19 23:30 92 29 108/66 (80) 99 02/21/19 23:24 91 02/21/19 23:20 88 29 40 02/21/19 23:00 93 32 95/66 (76) 99 02/21/19 23:00 95/66 02/21/19 22:30 93 28 105/67 (80) 99 02/21/19 22:30 89 106/73 02/21/19 22:15 93 28 106/73 (84) 100 02/21/19 22:02 88/59 02/21/19 22:00 93 27 88/59 (69) 98 02/21/19 21:57 78/50 02/21/19 21:17 96 26 40 02/21/19 21:15 94 23 78/50 (59) 99 02/21/19 21:00 93 26 85/55 (65) 99 02/21/19 20:15 92 26 84/46 (59) 99 02/21/19 20:00 40 02/21/19 20:00 Mechanical Ventilator 02/21/19 20:00 86 02/21/19 20:00 97.5 93 27 74/50 (58) 97 02/21/19 19:13 91 26 40 02/21/19 19:00 91 26 91/63 (72) 99 02/21/19 18:00 91 26 89/58 (68) 99 02/21/19 17:00 90 26 86/56 (66) 99 02/21/19 16:55 111 36 40 02/21/19 16:00 Mechanical Ventilator 02/21/19 16:00 Mechanical Ventilator 02/21/19 16:00 40 02/21/19 16:00 95 02/21/19 16:00 98.2 95 26 98/59 (72) 99 02/21/19 15:13 11 35 40 02/21/19 15:00 100 26 91/53 (66) 99 02/21/19 14:00 103 28 100/50 (67) 99 02/21/19 13:15 108 33 40 02/21/19 13:00 98.3 109 24 95/61 (72) 99 02/21/19 12:00 98 25 94/61 (72) 98 02/21/19 12:00 Mechanical Ventilator 02/21/19 11:28 104 02/21/19 11:15 109 34 40 02/21/19 11:00 102 25 93/65 (74) 100 02/21/19 10:00 103 25 84/51 (62) 99 02/21/19 09:30 93/65 02/21/19 09:18 112 32 40 02/21/19 09:00 108 32 98/62 (74) 99 02/21/19 08:10 40 02/21/19 08:00 Mechanical Ventilator 02/21/19 08:00 98.3 109 25 101/62 (75) 97 02/21/19 08:00 40 02/21/19 08:00 111 02/21/19 07:23 112 32 40 02/21/19 07:00 111 32 110/69 (83) 100 02/21/19 07:00 40 02/21/19 06:00 102 27 95/62 (73) 100 02/21/19 05:00 106 31 96/57 (70) 100 02/21/19 04:53 106 31 40 02/21/19 04:00 98.1 113 32 98/59 (72) 100 02/21/19 04:00 40 02/21/19 04:00 Mechanical Ventilator 02/21/19 03:23 120 02/21/19 03:00 118 34 123/75 (91) 100 02/21/19 03:00 114 34 40 02/21/19 02:00 113 32 89/45 (60) 98 02/21/19 01:00 109 24 111/66 (81) 98 02/21/19 00:58 113 32 40 02/21/19 00:00 Mechanical Ventilator 02/21/19 00:00 98.6 108 32 107/62 (77) 97 02/21/19 00:00 40 02/20/19 23:05 119 02/20/19 23:00 113 29 113/71 (85) 99 02/20/19 22:53 117 33 40 02/20/19 22:30 117 120/64 02/20/19 22:00 117 36 120/64 (82) 95 02/20/19 21:00 108 30 99/60 (73) 100 02/20/19 20:45 110 35 40 02/20/19 20:00 Mechanical Ventilator 02/20/19 20:00 40 02/20/19 20:00 98.6 113 34 105/54 (71) 97 02/20/19 19:27 115 02/20/19 19:00 115 29 101/70 (80) 93 02/20/19 18:53 116 37 40 02/20/19 18:00 117 25 101/70 (80) 93 02/20/19 17:05 105 30 40 02/20/19 17:00 103 25 91/57 (68) 93 02/20/19 16:00 105 02/20/19 16:00 Mechanical Ventilator 02/20/19 16:00 40 02/20/19 16:00 98.2 106 26 92/56 (68) 100 02/20/19 15:00 118 37 109/69 (82) 95 02/20/19 15:00 40 02/20/19 14:40 40 02/20/19 14:40 115 53 40 02/20/19 14:00 117 29 122/78 (93) 99 02/20/19 13:00 122 29 114/69 (84) 95 02/20/19 12:49 122 44 40 02/20/19 12:00 Mechanical Ventilator 02/20/19 12:00 127 02/20/19 12:00 40 02/20/19 12:00 98.8 109 23 121/76 (91) 100 02/20/19 11:00 133 45 150/78 (102) 94 02/20/19 10:36 123 43 40 02/20/19 10:00 125 49 110/63 (79) 99 Intake and Output 02/21/19 02/22/19 19:00 07:00 Intake Total 712.5 ml 1180.42 ml Output Total 1910 ml 1300 ml Balance -1197.5 ml -119.58 ml Free Water 100 ml 50 ml IV Total 252.5 ml 650.42 ml Tube Feeding 360 ml 480 ml Output Urine Total 1860 ml 1300 ml Stool Total 50 ml # Bowel Movements 50 Labs Test 02/20/19 04:30 02/20/19 08:50 02/20/19 16:00 02/21/19 03:50 White Blood Count 25.9 K/UL (4.8-10.8) 29.4 K/UL (4.8-10.8) Red Blood Count 2.70 M/UL (4.70-6.10) 2.54 M/UL (4.70-6.10) Hemoglobin 8.9 G/DL (14.2-18.0) 8.4 G/DL (14.2-18.0) Hematocrit 26.0 % (42.0-52.0) 24.3 % (42.0-52.0) Mean Corpuscular Volume 96 FL (80-99) 96 FL (80-99) Mean Corpuscular Hemoglobin 33.1 PG (27.0-31.0) 33.3 PG (27.0-31.0) Mean Corpuscular Hemoglobin Concent 34.3 G/DL (32.0-36.0) 34.7 G/DL (32.0-36.0) Red Cell Distribution Width 15.1 % (11.6-14.8) 15.2 % (11.6-14.8) Platelet Count 97 K/UL (150-450) 163 K/UL (150-450) Mean Platelet Volume 12.0 FL (6.5-10.1) 10.1 FL (6.5-10.1) Neutrophils (%) (Auto) % (45.0-75.0) % (45.0-75.0) Lymphocytes (%) (Auto) % (20.0-45.0) % (20.0-45.0) Monocytes (%) (Auto) % (1.0-10.0) % (1.0-10.0) Eosinophils (%) (Auto) % (0.0-3.0) % (0.0-3.0) Basophils (%) (Auto) % (0.0-2.0) % (0.0-2.0) Differential Total Cells Counted 100 100 Neutrophils % (Manual) 72 % (45-75) 80 % (45-75) Lymphocytes % (Manual) 8 % (20-45) 5 % (20-45) Monocytes % (Manual) 18 % (1-10) 10 % (1-10) Eosinophils % (Manual) 0 % (0-3) 0 % (0-3) Basophils % (Manual) 0 % (0-2) 0 % (0-2) Band Neutrophils 2 % (0-8) 5 % (0-8) Platelet Estimate Decreased Adequate Platelet Morphology Normal Anisocytosis 1+ 1+ Macrocytosis 1+ Sodium Level 138 MMOL/L (136-145) 141 MMOL/L (136-145) Potassium Level 3.3 MMOL/L (3.5-5.1) 3.2 MMOL/L (3.5-5.1) Chloride Level 104 MMOL/L (98-107) 107 MMOL/L (98-107) Carbon Dioxide Level 26 MMOL/L (21-32) 25 MMOL/L (21-32) Anion Gap 8 mmol/L (5-15) 10 mmol/L (5-15) Blood Urea Nitrogen 6 mg/dL (7-18) 8 mg/dL (7-18) Creatinine 0.8 MG/DL (0.55-1.30) 0.7 MG/DL (0.55-1.30) Estimat Glomerular Filtration Rate > 60 mL/min (>60) > 60 mL/min (>60) Glucose Level 124 MG/DL (74-106) 82 MG/DL (74-106) Uric Acid 1.3 MG/DL (2.6-7.2) Calcium Level 7.2 MG/DL (8.5-10.1) 7.1 MG/DL (8.5-10.1) Phosphorus Level 1.8 MG/DL (2.5-4.9) 2.3 MG/DL (2.5-4.9) Magnesium Level 1.8 MG/DL (1.8-2.4) 1.6 MG/DL (1.8-2.4) Total Bilirubin 5.1 MG/DL (0.2-1.0) 5.6 MG/DL (0.2-1.0) Direct Bilirubin 4.4 MG/DL (0.0-0.3) 4.7 MG/DL (0.0-0.3) Gamma Glutamyl Transpeptidase 528 U/L (5-85) Aspartate Amino Transf (AST/SGOT) 217 U/L (15-37) 191 U/L (15-37) Alanine Aminotransferase (ALT/SGPT) 71 U/L (12-78) 66 U/L (12-78) Alkaline Phosphatase 172 U/L (46-116) 176 U/L (46-116) C-Reactive Protein, Quantitative 9.7 mg/dL (0.00-0.90) 9.5 mg/dL (0.00-0.90) Pro-B-Type Natriuretic Peptide 2054 pg/mL (0-125) Total Protein 5.0 G/DL (6.4-8.2) 4.2 G/DL (6.4-8.2) Albumin 1.8 G/DL (3.4-5.0) 1.6 G/DL (3.4-5.0) Globulin 3.2 g/dL 2.6 g/dL Albumin/Globulin Ratio 0.6 (1.0-2.7) 0.6 (1.0-2.7) Vancomycin Level Trough 10.7 ug/mL (5.0-12.0) Urine Color [place] Urine Appearance Cloudy Urine pH 6.5 (4.5-8.0) Urine Specific [place] 1.010 (1.005-1.035) Urine Protein 1+ (NEGATIVE) Urine Glucose (UA) Negative (NEGATIVE) Urine Ketones Negative (NEGATIVE) Urine Blood 5+ (NEGATIVE) Urine Nitrite Negative (NEGATIVE) Urine Bilirubin 1+ (NEGATIVE) Urine Ictotest Positive (NEGATIVE) Urine Urobilinogen Normal MG/DL (0.0-1.0) Urine Leukocyte Esterase 3+ (NEGATIVE) Urine RBC Tntc /HPF (0 - 0) Urine WBC 10-15 /HPF (0 - 0) Urine Squamous Epithelial Cells None /LPF (NONE/OCC) Urine Bacteria Few /HPF (NONE) Lactic Acid Level 1.40 mmol/L (0.4-2.0) Giant Platelets 1+ Polychromasia 1+ Erythrocyte Sedimentation Rate 83 MM/HR (0-20) Prothrombin Time 16.2 SEC (9.30-11.50) Prothromb Time International Ratio 1.6 (0.9-1.1) Activated Partial Thromboplast Time 34 SEC (23-33) Amylase Level 123 U/L (25-115) Lipase 855 U/L (73-393) Test 02/21/19 21:10 02/22/19 03:46 Vancomycin Level Trough 15.3 ug/mL (5.0-12.0) White Blood Count 33.6 K/UL (4.8-10.8) Red Blood Count 2.65 M/UL (4.70-6.10) Hemoglobin 8.6 G/DL (14.2-18.0) Hematocrit 25.3 % (42.0-52.0) Mean Corpuscular Volume 96 FL (80-99) Mean Corpuscular Hemoglobin 32.4 PG (27.0-31.0) Mean Corpuscular Hemoglobin Concent 33.9 G/DL (32.0-36.0) Red Cell Distribution Width 15.2 % (11.6-14.8) Platelet Count 283 K/UL (150-450) Mean Platelet Volume 8.6 FL (6.5-10.1) Neutrophils (%) (Auto) % (45.0-75.0) Lymphocytes (%) (Auto) % (20.0-45.0) Monocytes (%) (Auto) % (1.0-10.0) Eosinophils (%) (Auto) % (0.0-3.0) Basophils (%) (Auto) % (0.0-2.0) Differential Total Cells Counted 100 Neutrophils % (Manual) 88 % (45-75) Lymphocytes % (Manual) 5 % (20-45) Monocytes % (Manual) 7 % (1-10) Eosinophils % (Manual) 0 % (0-3) Basophils % (Manual) 0 % (0-2) Band Neutrophils 0 % (0-8) Platelet Estimate Adequate Platelet Morphology Normal Hypochromasia 2+ Anisocytosis 1+ Spherocytes 1+ Sodium Level 140 MMOL/L (136-145) Potassium Level 2.7 MMOL/L (3.5-5.1) Chloride Level 107 MMOL/L (98-107) Carbon Dioxide Level 23 MMOL/L (21-32) Anion Gap 10 mmol/L (5-15) Blood Urea Nitrogen 7 mg/dL (7-18) Creatinine 0.8 MG/DL (0.55-1.30) Estimat Glomerular Filtration Rate > 60 mL/min (>60) Glucose Level 139 MG/DL (74-106) Calcium Level 7.5 MG/DL (8.5-10.1) Phosphorus Level 2.9 MG/DL (2.5-4.9) Magnesium Level 2.0 MG/DL (1.8-2.4) Total Bilirubin 6.1 MG/DL (0.2-1.0) Direct Bilirubin 5.0 MG/DL (0.0-0.3) Aspartate Amino Transf (AST/SGOT) 204 U/L (15-37) Alanine Aminotransferase (ALT/SGPT) 67 U/L (12-78) Alkaline Phosphatase 249 U/L (46-116) Total Protein 4.9 G/DL (6.4-8.2) Albumin 1.4 G/DL (3.4-5.0) Globulin 3.5 g/dL Albumin/Globulin Ratio 0.4 (1.0-2.7) Height (Feet): 5 Height (Inches): 5.00 Weight (Pounds): 171 Objective Gen: NAD HEENT: atraumatic, other - OGT Lungs: clear ++ vent Heart: HR/BP stable Abdomen: soft, non-tender, active bowel sounds Extremities: no cce Robert Johnston MD Feb 22, 2019 09:51
--- NOTE | 2019-02-22 10:01 | Neurology Progress Note ---
Interim History Interim History ROS Limited/Unobtainable: Yes Interim History more alert moving all 4, coming off pressors Objective Physical Exam Last Vital Signs Date Time Temp Pulse Resp B/P (MAP) Pulse Ox O2 Delivery O2 Flow Rate FiO2 02/22/19 09:00 110/68 02/22/19 08:41 115 33 40 40 02/22/19 08:40 92 02/22/19 08:00 98.0 02/22/19 04:00 Mechanical Ventilator 02/14/19 15:15 2.0 Laboratory Tests Test 02/21/19 21:10 02/22/19 03:46 Vancomycin Level Trough 15.3 ug/mL (5.0-12.0) H White Blood Count 33.6 K/UL (4.8-10.8) *H Red Blood Count 2.65 M/UL (4.70-6.10) L Hemoglobin 8.6 G/DL (14.2-18.0) L Hematocrit 25.3 % (42.0-52.0) L Mean Corpuscular Volume 96 FL (80-99) Mean Corpuscular Hemoglobin 32.4 PG (27.0-31.0) H Mean Corpuscular Hemoglobin Concent 33.9 G/DL (32.0-36.0) Red Cell Distribution Width 15.2 % (11.6-14.8) H Platelet Count 283 K/UL (150-450) # Mean Platelet Volume 8.6 FL (6.5-10.1) Neutrophils (%) (Auto) % (45.0-75.0) Lymphocytes (%) (Auto) % (20.0-45.0) Monocytes (%) (Auto) % (1.0-10.0) Eosinophils (%) (Auto) % (0.0-3.0) Basophils (%) (Auto) % (0.0-2.0) Differential Total Cells Counted 100 Neutrophils % (Manual) 88 % (45-75) H Lymphocytes % (Manual) 5 % (20-45) L Monocytes % (Manual) 7 % (1-10) Eosinophils % (Manual) 0 % (0-3) Basophils % (Manual) 0 % (0-2) Band Neutrophils 0 % (0-8) Platelet Estimate Adequate Platelet Morphology Normal Hypochromasia 2+ Anisocytosis 1+ Spherocytes 1+ Sodium Level 140 MMOL/L (136-145) Potassium Level 2.7 MMOL/L (3.5-5.1) *L Chloride Level 107 MMOL/L (98-107) Carbon Dioxide Level 23 MMOL/L (21-32) Anion Gap 10 mmol/L (5-15) Blood Urea Nitrogen 7 mg/dL (7-18) Creatinine 0.8 MG/DL (0.55-1.30) Estimat Glomerular Filtration Rate > 60 mL/min (>60) Glucose Level 139 MG/DL (74-106) H Calcium Level 7.5 MG/DL (8.5-10.1) L Phosphorus Level 2.9 MG/DL (2.5-4.9) Magnesium Level 2.0 MG/DL (1.8-2.4) Total Bilirubin 6.1 MG/DL (0.2-1.0) H Direct Bilirubin 5.0 MG/DL (0.0-0.3) H Aspartate Amino Transf (AST/SGOT) 204 U/L (15-37) H Alanine Aminotransferase (ALT/SGPT) 67 U/L (12-78) Alkaline Phosphatase 249 U/L (46-116) H Total Protein 4.9 G/DL (6.4-8.2) L Albumin 1.4 G/DL (3.4-5.0) L Globulin 3.5 g/dL Albumin/Globulin Ratio 0.4 (1.0-2.7) L Head: normocophalic Neck: no rigidity EENT: benign Neurologic Exam Cranial Nerves III, IV, : PERRLA Motor System: no involuntary movement Objective pupils 3 mm reactive no nuchal rigidity minimal withdrawal intubated cc time 35 min Impression/Recommendations Problems: (1) Episode of confusion (2) Tachycardia (3) Fever (4) Diarrhea (5) Altered mental status (6) Alcohol withdrawal seizure (7) Oral thrush (8) Electrolyte and fluid disorder (9) Aspiration pneumonia (10) Alcohol withdrawal seizure (11) Non-compliance (12) Seizure disorder Status: stable Diagnostic Impression seizure due to non compliance septic shock with bacteremia broad sectrum atb sp intubation dilantin 100 mg tid Poor prognosis Myron Estrella MD Feb 22, 2019 10:01
[2019-02-22] MEDS: Vancomycin 1.25gm Premix IVPB SCH ×2 (10:17→21:50)
--- NOTE | 2019-02-22 11:30 | NUR ---
RESPIRATORY NOTE: attempted to wean pt again with SIMV rate of 16 and PS 10, but pt continued to have a high RR 39-40. RN aware and placed back on AC
--- NOTE | 2019-02-22 11:41 | Pulmonolgy Critical Care Note ---
Critical Care - Asmt/Plan Problems: (1) Seizure disorder (2) Endotracheally intubated (3) Septic shock (4) Sepsis (5) Sinus tachycardia (6) Lactic acid acidosis (7) High anion gap metabolic acidosis (8) STEFANI (acute kidney injury) (9) Abnormal LFTs (10) Coffee ground emesis (11) Gastrointestinal bleed (12) Altered mental status (13) Alcohol withdrawal seizure (14) Ventilator dependent Assessment/Plan: Continue ventilatory support/settings reviewed SBT when stable Monitor volumes, PRN lasix Replete K, phos and Mag Off pressords Continue Vanco/Zosyn per ID, F/U Cx's F/U GI recs, PPI, EGD when stable, ? colo Monitor counts, transfuse as neded Monitor for EtOH w/drawal, PRN ativan Continue AEDs, monitor for Sz's, F/U neuro recs FC CCT 35 Critical Care - Objective Last 24 Hour Vital Signs Date Time Temp Pulse Resp B/P (MAP) Pulse Ox O2 Delivery O2 Flow Rate FiO2 02/22/19 10:56 106 36 40 02/22/19 10:45 97 29 91/58 (69) 99 02/22/19 10:30 102 32 94/65 (75) 98 02/22/19 10:15 105 29 99/55 (70) 95 02/22/19 10:12 90/47 02/22/19 10:04 107 28 90/47 (61) 97 02/22/19 10:00 94/62 02/22/19 10:00 105 29 88/51 (63) 97 02/22/19 09:45 109 31 94/62 (73) 98 02/22/19 09:30 114 36 106/68 (81) 93 02/22/19 09:30 94/62 02/22/19 09:15 111 35 103/70 (81) 95 02/22/19 09:00 112 33 110/68 (82) 92 02/22/19 09:00 110/68 02/22/19 08:45 116 39 106/69 (81) 92 02/22/19 08:41 115 33 40 40 02/22/19 08:40 92 02/22/19 08:30 117 37 110/71 (84) 95 02/22/19 08:15 118 34 118/66 (83) 95 7/18/19 08:00 118 7/18/19 08:00 40 7/18/19 08:00 Mechanical Ventilator 7/18 08:00 98.0 119 37 109/69 (82) 94 7/18/19 08:00 110/66 7/18/19 07:30 119 32 118/79 (92) 92 7/18/19 07:12 122 33 40 7/18/19 07:00 108 32 114/76 (89) 95 7/18/19 07:00 107/79 7/18/19 06:30 109 34 102/73 (83) 96 7/18/19 06:00 107 34 105/64 (78) 92 7/18/19 06:00 105/64 7/18/19 05:30 98 26 105/63 (77) 98 7/18/19 05:12 97 27 40 7/18/19 05:00 102/68 7/18/19 05:00 96 26 102/68 (79) 100 7/18/19 04:30 97 30 94/65 (75) 100 7/18/19 04:00 98.2 101 31 97/65 (76) 99 7/18/19 04:00 40 7/18/19 04:00 97/65 7/18/19 04:00 Mechanical Ventilator 18 03:30 107 34 99/60 (73) 94 7/18/19 03:18 108 35 40 7/18/19 03:13 106 7/18/19 03:00 114/68 7/18/19 03:00 109 29 114/68 (83) 94 7/18/19 02:30 107 28 102/67 (79) 94 7/18/19 02:00 106/67 7/18/19 02:00 116 31 106/67 (80) 94 7/18/19 01:30 121 37 109/63 (78) 94 7/18/19 01:00 111 31 109/64 (79) 94 7/18/19 01:00 109/64 7/18/19 00:55 89 32 40 7/18/19 00:30 107 26 101/67 (78) 94 7/18/19 00:00 98.2 102 28 98/64 (75) 99 7/18/19 00:00 98/64 7/18/19 00:00 40 02/22/19 00:00 Mechanical Ventilator 02/21/19 23:30 92 29 108/66 (80) 99 02/21/19 23:24 91 02/21/19 23:20 88 29 40 02/21/19 23:00 93 32 95/66 (76) 99 02/21/19 23:00 95/66 02/21/19 22:30 93 28 105/67 (80) 99 02/21/19 22:30 89 106/73 02/21/19 22:15 93 28 106/73 (84) 100 02/21/19 22:02 88/59 02/21/19 22:00 93 27 88/59 (69) 98 02/21/19 21:57 78/50 02/21/19 21:17 96 26 40 02/21/19 21:15 94 23 78/50 (59) 99 02/21/19 21:00 93 26 85/55 (65) 99 02/21/19 20:15 92 26 84/46 (59) 99 02/21/19 20:00 40 02/21/19 20:00 Mechanical Ventilator 02/21/19 20:00 86 02/21/19 20:00 97.5 93 27 74/50 (58) 97 02/21/19 19:13 91 26 40 02/21/19 19:00 91 26 91/63 (72) 99 02/21/19 18:00 91 26 89/58 (68) 99 02/21/19 17:00 90 26 86/56 (66) 99 02/21/19 16:55 111 36 40 02/21/19 16:00 Mechanical Ventilator 02/21/19 16:00 Mechanical Ventilator 02/21/19 16:00 40 02/21/19 16:00 95 02/21/19 16:00 98.2 95 26 98/59 (72) 99 02/21/19 15:13 11 35 40 02/21/19 15:00 100 26 91/53 (66) 99 02/21/19 14:00 103 28 100/50 (67) 99 02/21/19 13:15 108 33 40 02/21/19 13:00 98.3 109 24 95/61 (72) 99 02/21/19 12:00 98 25 94/61 (72) 98 02/21/19 12:00 Mechanical Ventilator Status: sedated Condition: critical, other - ETT, OGT HEENT: atraumatic, normocephalic Lungs: clear Heart: HR/BP unstable Abdomen: soft, non-tender, active bowel sounds Extremities: no C/C/E Micro: Microbiology Date/Time Source Procedure Growth Status 02/20/19 15:50 Blood Blood Culture - Preliminary NO GROWTH AFTER 24 HOURS Resulted 02/20/19 14:00 Blood Blood Culture - Preliminary NO GROWTH AFTER 24 HOURS Resulted 02/20/19 14:00 Sputum Induced Gram Stain - Final Complete 02/20/19 14:00 Sputum Culture - Final Luciana Albicans Complete 02/20/19 20:20 Stool Clostridium difficile Toxin Assay - Final Complete 02/20/19 16:20 Indwelling Cath Urine Culture - Preliminary NO GROWTH AFTER 24 HOURS Resulted Accucheck: 33 Blood Sugars: BS controlled Critical Care - Subjective ROS Limited/Unobtainable: Yes ICU Day: 8 Intubation Day: 7 Interval Events: Back on low dose NE Failed SBT HH stable, WCT inc Still ST but better -1.3L Getting IV K Condition: critical IV Access: PICC EKG Rhythm: Sinus Tachycardia FI02: 40 Vent Support Breath Rate: 26 Vent Support Mode: AC Vent Tidal Volume: 500 Sputum Amount: Small PEEP: 5.0 PIP: 32 Secretions: Minimal Fluids: SLIV Drips: NE@2mcg Tube Feeding Amount: 40 I&O: Intake and Output 02/21/19 02/22/19 19:00 07:00 Intake Total 712.5 ml 1180.42 ml Output Total 1910 ml 1300 ml Balance -1197.5 ml -119.58 ml Free Water 100 ml 50 ml IV Total 252.5 ml 650.42 ml Tube Feeding 360 ml 480 ml Output Urine Total 1860 ml 1300 ml Stool Total 50 ml # Bowel Movements 50 Subjective: [place] ET-Tube: 7.5 ET Position: 24 Labs: Laboratory Tests Test 02/21/19 21:10 02/22/19 03:46 Vancomycin Level Trough 15.3 ug/mL (5.0-12.0) H White Blood Count 33.6 K/UL (4.8-10.8) *H Red Blood Count 2.65 M/UL (4.70-6.10) L Hemoglobin 8.6 G/DL (14.2-18.0) L Hematocrit 25.3 % (42.0-52.0) L Mean Corpuscular Volume 96 FL (80-99) Mean Corpuscular Hemoglobin 32.4 PG (27.0-31.0) H Mean Corpuscular Hemoglobin Concent 33.9 G/DL (32.0-36.0) Red Cell Distribution Width 15.2 % (11.6-14.8) H Platelet Count 283 K/UL (150-450) # Mean Platelet Volume 8.6 FL (6.5-10.1) Neutrophils (%) (Auto) % (45.0-75.0) Lymphocytes (%) (Auto) % (20.0-45.0) Monocytes (%) (Auto) % (1.0-10.0) Eosinophils (%) (Auto) % (0.0-3.0) Basophils (%) (Auto) % (0.0-2.0) Differential Total Cells Counted 100 Neutrophils % (Manual) 88 % (45-75) H Lymphocytes % (Manual) 5 % (20-45) L Monocytes % (Manual) 7 % (1-10) Eosinophils % (Manual) 0 % (0-3) Basophils % (Manual) 0 % (0-2) Band Neutrophils 0 % (0-8) Platelet Estimate Adequate Platelet Morphology Normal Hypochromasia 2+ Anisocytosis 1+ Spherocytes 1+ Sodium Level 140 MMOL/L (136-145) Potassium Level 2.7 MMOL/L (3.5-5.1) *L Chloride Level 107 MMOL/L (98-107) Carbon Dioxide Level 23 MMOL/L (21-32) Anion Gap 10 mmol/L (5-15) Blood Urea Nitrogen 7 mg/dL (7-18) Creatinine 0.8 MG/DL (0.55-1.30) Estimat Glomerular Filtration Rate > 60 mL/min (>60) Glucose Level 139 MG/DL (74-106) H Calcium Level 7.5 MG/DL (8.5-10.1) L Phosphorus Level 2.9 MG/DL (2.5-4.9) Magnesium Level 2.0 MG/DL (1.8-2.4) Total Bilirubin 6.1 MG/DL (0.2-1.0) H Direct Bilirubin 5.0 MG/DL (0.0-0.3) H Aspartate Amino Transf (AST/SGOT) 204 U/L (15-37) H Alanine Aminotransferase (ALT/SGPT) 67 U/L (12-78) Alkaline Phosphatase 249 U/L (46-116) H Total Protein 4.9 G/DL (6.4-8.2) L Albumin 1.4 G/DL (3.4-5.0) L Globulin 3.5 g/dL Albumin/Globulin Ratio 0.4 (1.0-2.7) L Han Harris MD Feb 22, 2019 11:41
--- NOTE | 2019-02-22 12:00 | NUR ---
NURSE NOTES: Patient blood pressure 90/49 on 2mcg/min Levophed, HR 99, temp 98.5, RR 29, and oxygen saturation 96%. Patient sleeping at this time. Sister at the bedside. Sister given update. Patient failed second weaning trial. Aguilar leaking. Patient cleaned. Oral care performed. Patient running tube feeding with no residual. Patient showing no sign of acute distress. Patient bed in low position with bed alarm on and call light in reach at this time. Patient running second of four bags of KCL 20mEq. Will continue to monitor blood pressure and titrate Levophed per protocol. Will continue to monitor EKG and potassium administration.
--- NOTE | 2019-02-22 12:16 | GI Progress Note ---
Assessment/Plan Problems: (1) Coffee ground emesis ICD Codes: K92.0 - Hematemesis SNOMED: 95561885 (2) Episode of confusion ICD Codes: R41.0 - Disorientation, unspecified SNOMED: 32598710 (3) Gastrointestinal bleed ICD Codes: K92.2 - Gastrointestinal hemorrhage, unspecified SNOMED: 04339440 (4) Abnormal LFTs ICD Codes: R94.5 - Abnormal results of liver function studies SNOMED: 733725553 (5) Diarrhea ICD Codes: R19.7 - Diarrhea, unspecified SNOMED: 96185476 (6) Electrolyte and fluid disorder ICD Codes: E87.8 - Other disorders of electrolyte and fluid balance, not elsewhere classified SNOMED: 75633107 (7) Sepsis ICD Codes: A41.9 - Sepsis, unspecified organism SNOMED: 97458401 Status: not improved, unchanged Status Narrative Discussed with Dr. Bloom. Assessment/Plan black stools per nurses drop in H&H positive stool ob elevated white count off pressors EGD postponed, will need endoscopy when stable. ppi IV Q 12 monitor H&H Follow-up ID recommendations given leukocytosis monitor H&H, prn transfusions IV hydration plus electrolyte correction fu labs Vit k The patient was seen and examined at bedside and all new and available data was reviewed in the patients chart. I agree with the above findings, impression and plan. (Patient seen earlier today. Signature stamp does not reflect patient encounter time.). - Jones Bloom MD Subjective Subjective limited Objective Last 24 Hour Vital Signs Date Time Temp Pulse Resp B/P (MAP) Pulse Ox O2 Delivery O2 Flow Rate FiO2 02/22/19 10:56 106 36 40 02/22/19 10:45 97 29 91/58 (69) 99 02/22/19 10:30 102 32 94/65 (75) 98 02/22/19 10:15 105 29 99/55 (70) 95 02/22/19 10:12 90/47 02/22/19 10:04 107 28 90/47 (61) 97 02/22/19 10:00 94/62 02/22/19 10:00 105 29 88/51 (63) 97 02/22/19 09:45 109 31 94/62 (73) 98 02/22/19 09:30 114 36 106/68 (81) 93 718/19 09:30 94/62 7/18/19 09:15 111 35 103/70 (81) 95 7/18 09:00 112 33 110/68 (82) 92 718 09:00 110/68 718 08:45 116 39 106/69 (81) 92 18 08:41 115 33 40 40 18 08:40 92 18 08:30 117 37 110/71 (84) 95 18 08:15 118 34 118/66 (83) 95 18 08:00 118 /18 08:00 40 02/22/19 08:00 Mechanical Ventilator 02/22/19 08:00 98.0 119 37 109/69 (82) 94 718 08:00 110/66 02/22/19 07:30 119 32 118/79 (92) 92 02/22/19 07:12 122 33 40 02/22/19 07:00 108 32 114/76 (89) 95 02/22/19 07:00 107/79 02/22/19 06:30 109 34 102/73 (83) 96 7/18/ 06:00 107 34 105/64 (78) 92 718 06:00 105/64 02/22/19 05:30 98 26 105/63 (77) 98 7/18/ 05:12 97 27 40 /18/19 05:00 102/68 18 05:00 96 26 102/68 (79) 100 7/18/19 04:30 97 30 94/65 (75) 100 7/18/19 04:00 98.2 101 31 97/65 (76) 99 7/18/19 04:00 40 7/18/19 04:00 97/65 7/18/ 04:00 Mechanical Ventilator 02/22/19 03:30 107 34 99/60 (73) 94 718/19 03:18 108 35 40 7/18/ 03:13 106 7/18/ 03:00 114/68 718/ 03:00 109 29 114/68 (83) 94 71819 02:30 107 28 102/67 (79) 94 02/22/19 02:00 106/67 02/22/19 02:00 116 31 106/67 (80) 94 02/22/19 01:30 121 37 109/63 (78) 94 02/22/19 01:00 111 31 109/64 (79) 94 18 01:00 109/64 02/22/19 00:55 89 32 40 02/22/19 00:30 107 26 101/67 (78) 94 02/22/19 00:00 98.2 102 28 98/64 (75) 99 02/22/19 00:00 98/64 02/22/19 00:00 40 02/22/19 00:00 Mechanical Ventilator 02/21/19 23:30 92 29 108/66 (80) 99 02/21/19 23:24 91 02/21/19 23:20 88 29 40 02/21/19 23:00 93 32 95/66 (76) 99 02/21/19 23:00 95/66 02/21/19 22:30 93 28 105/67 (80) 99 02/21/19 22:30 89 106/73 02/21/19 22:15 93 28 106/73 (84) 100 02/21/19 22:02 88/59 02/21/19 22:00 93 27 88/59 (69) 98 02/21/19 21:57 78/50 02/21/19 21:17 96 26 40 02/21/19 21:15 94 23 78/50 (59) 99 02/21/19 21:00 93 26 85/55 (65) 99 02/21/19 20:15 92 26 84/46 (59) 99 02/21/19 20:00 40 02/21/19 20:00 Mechanical Ventilator 02/21/19 20:00 86 02/21/19 20:00 97.5 93 27 74/50 (58) 97 02/21/19 19:13 91 26 40 02/21/19 19:00 91 26 91/63 (72) 99 02/21/19 18:00 91 26 89/58 (68) 99 02/21/19 17:00 90 26 86/56 (66) 99 02/21/19 16:55 111 36 40 02/21/19 16:00 Mechanical Ventilator 7/17/19 16:00 Mechanical Ventilator 02/21/19 16:00 40 02/21/19 16:00 95 02/21/19 16:00 98.2 95 26 98/59 (72) 99 02/21/19 15:13 11 35 40 02/21/19 15:00 100 26 91/53 (66) 99 02/21/19 14:00 103 28 100/50 (67) 99 02/21/19 13:15 108 33 40 02/21/19 13:00 98.3 109 24 95/61 (72) 99 Intake and Output 02/21/19 02/22/19 19:00 07:00 Intake Total 712.5 ml 1180.42 ml Output Total 1910 ml 1300 ml Balance -1197.5 ml -119.58 ml Free Water 100 ml 50 ml IV Total 252.5 ml 650.42 ml Tube Feeding 360 ml 480 ml Output Urine Total 1860 ml 1300 ml Stool Total 50 ml # Bowel Movements 50 Laboratory Tests Test 02/21/19 21:10 02/22/19 03:46 Vancomycin Level Trough 15.3 ug/mL (5.0-12.0) H White Blood Count 33.6 K/UL (4.8-10.8) *H Red Blood Count 2.65 M/UL (4.70-6.10) L Hemoglobin 8.6 G/DL (14.2-18.0) L Hematocrit 25.3 % (42.0-52.0) L Mean Corpuscular Volume 96 FL (80-99) Mean Corpuscular Hemoglobin 32.4 PG (27.0-31.0) H Mean Corpuscular Hemoglobin Concent 33.9 G/DL (32.0-36.0) Red Cell Distribution Width 15.2 % (11.6-14.8) H Platelet Count 283 K/UL (150-450) # Mean Platelet Volume 8.6 FL (6.5-10.1) Neutrophils (%) (Auto) % (45.0-75.0) Lymphocytes (%) (Auto) % (20.0-45.0) Monocytes (%) (Auto) % (1.0-10.0) Eosinophils (%) (Auto) % (0.0-3.0) Basophils (%) (Auto) % (0.0-2.0) Differential Total Cells Counted 100 Neutrophils % (Manual) 88 % (45-75) H Lymphocytes % (Manual) 5 % (20-45) L Monocytes % (Manual) 7 % (1-10) Eosinophils % (Manual) 0 % (0-3) Basophils % (Manual) 0 % (0-2) Band Neutrophils 0 % (0-8) Platelet Estimate Adequate Platelet Morphology Normal Hypochromasia 2+ Anisocytosis 1+ Spherocytes 1+ Sodium Level 140 MMOL/L (136-145) Potassium Level 2.7 MMOL/L (3.5-5.1) *L Chloride Level 107 MMOL/L (98-107) Carbon Dioxide Level 23 MMOL/L (21-32) Anion Gap 10 mmol/L (5-15) Blood Urea Nitrogen 7 mg/dL (7-18) Creatinine 0.8 MG/DL (0.55-1.30) Estimat Glomerular Filtration Rate > 60 mL/min (>60) Glucose Level 139 MG/DL (74-106) H Calcium Level 7.5 MG/DL (8.5-10.1) L Phosphorus Level 2.9 MG/DL (2.5-4.9) Magnesium Level 2.0 MG/DL (1.8-2.4) Total Bilirubin 6.1 MG/DL (0.2-1.0) H Direct Bilirubin 5.0 MG/DL (0.0-0.3) H Aspartate Amino Transf (AST/SGOT) 204 U/L (15-37) H Alanine Aminotransferase (ALT/SGPT) 67 U/L (12-78) Alkaline Phosphatase 249 U/L (46-116) H Total Protein 4.9 G/DL (6.4-8.2) L Albumin 1.4 G/DL (3.4-5.0) L Globulin 3.5 g/dL Albumin/Globulin Ratio 0.4 (1.0-2.7) L Height (Feet): 5 Height (Inches): 5.00 Weight (Pounds): 170 Cardiovascular: normal rate Respiratory/Chest: normal breath sounds, no respiratory distress Abdominal Exam: normal bowel sounds, non tender, soft Extremities: non-tender Juno Naranjo THREAD CLIPPER Feb 22, 2019 12:16
--- NOTE | 2019-02-22 13:24 | Diagnostic Imaging Report ---
Indication: Dyspnea Comparison: 02/21/2019 A single view chest radiograph was obtained. Findings: Tubes and lines are satisfactory and stable. Heart size is normal and stable. Groundglass opacities noted diffusely. Bilateral basilar consolidation with air bronchograms demonstrated. A probable left pleural effusion is noted. IMPRESSION: Evidence of radiographically stable pulmonary edema which may be noncardiogenic. Basilar consolidation unchanged. Left pleural effusion
--- NOTE | 2019-02-22 13:40 | NUR ---
RADIOLOGY DEPT., CHEST X-RAY DONE.-P.DYE
--- NOTE | 2019-02-22 14:43 | NUR ---
NURSE NOTES: Notified Dr Harris about the result from ABG and chest x-ray taken this morning.
--- NOTE | 2019-02-22 15:22 | NUR ---
NURSE NOTES: Patient's delgado was leaking. Upon deflation of the catheter, the patient started to bleed around the delgado. The delgado slipped out and the patient continues to bleed from the tip of the penis. Dr Marcus notified. Dr Sen is in the hospital. Will show him when he comes to ICU. Addendum: 02/22/19 at 1728 by Debby Escobar RN Dr Sen, Dr Marcus, Dr Trevino, and Dr Negrete all notified when they rounded on the patient. Bleeding has stopped. A large blood clot remains at the tip of the penis. Dr Matta has been consulted and he will put in a 3 way delgado for bladder irrigation. 3-way delgado set up and urology cart at the bedside. Awaiting arrival of Dr Matta.
[2019-02-22] MEDS ORDERED: Spironolactone 25mg tab NG SCH (15:45)
--- NOTE | 2019-02-22 15:46 | Nephrology Progress Note ---
Assessment/Plan Problem List: (1) STEFANI (acute kidney injury) Assessment: Cr lower (2) Septic shock (3) Electrolyte and fluid disorder (4) Abnormal LFTs Assessment: fatty liver Assessment - STEFANI (acute kidney injury) - Septic shock - Lactic acid acidosis - Abnormal LFTs - Gastrointestinal bleed - Alcohol withdrawal seizure Plan K and Mag and Phos supplement as needed start feeding Hemodynamic support Pressors / Fluids as needed Aim to correct the electrolyte and acid base imbalance monitor renal parameters gastric support switch dilantin to keppra as LFTs rising per orders Subjective ROS Limited/Unobtainable: Yes Objective Objective Last 24 Hour Vital Signs Date Time Temp Pulse Resp B/P (MAP) Pulse Ox O2 Delivery O2 Flow Rate FiO2 02/22/19 14:55 95 31 40 02/22/19 12:49 97 35 40 02/22/19 12:30 98 31 111/53 (72) 96 02/22/19 12:15 102 31 119/54 (75) 97 02/22/19 12:06 100 36 101/47 (65) 95 02/22/19 12:03 103 33 90/49 (63) 92 02/22/19 12:00 Mechanical Ventilator 02/22/19 12:00 40 02/22/19 12:00 101 02/22/19 12:00 98.5 100 28 86/38 (54) 96 02/22/19 11:45 99 34 94/60 (71) 96 02/22/19 11:33 99 32 92/58 (69) 97 02/22/19 11:30 98 32 89/58 (68) 96 02/22/19 11:15 100 39 105/63 (77) 98 02/22/19 11:00 104 34 109/66 (80) 94 02/22/19 10:56 106 36 40 02/22/19 10:45 97 29 91/58 (69) 99 02/22/19 10:30 102 32 94/65 (75) 98 02/22/19 10:15 105 29 99/55 (70) 95 02/22/19 10:12 90/47 02/22/19 10:04 107 28 90/47 (61) 97 19 10:00 94/62 02/22/19 10:00 105 29 88/51 (63) 97 02/22/19 09:45 109 31 94/62 (73) 98 7/18/19 09:30 114 36 106/68 (81) 93 7/18/19 09:30 94/62 7/18/19 09:15 111 35 103/70 (81) 95 7/18/19 09:00 112 33 110/68 (82) 92 [id number] 09:00 110/68 718/ 08:45 116 39 106/69 (81) 92 18 08:41 115 33 40 40 18/19 08:40 92 18 08:30 117 37 110/71 (84) 95 18 08:15 118 34 118/66 (83) 95 18 08:00 118 18 08:00 40 02/22/19 08:00 Mechanical Ventilator 02/22/19 08:00 98.0 119 37 109/69 (82) 94 18 08:00 110/66 02/22/19 07:30 119 32 118/79 (92) 92 02/22/19 07:12 122 33 40 02/22/ 07:00 108 32 114/76 (89) 95 18 07:00 107/79 18/ 06:30 109 34 102/73 (83) 96 18/ 06:00 107 34 105/64 (78) 92 18/19 06:00 105/64 /18/19 05:30 98 26 105/63 (77) 98 7/18/19 05:12 97 27 40 18/19 05:00 102/68 18/19 05:00 96 26 102/68 (79) 100 7/18/19 04:30 97 30 94/65 (75) 100 18/19 04:00 98.2 101 31 97/65 (76) 99 /18/19 04:00 40 7/18/19 04:00 97/65 18/19 04:00 Mechanical Ventilator 18 03:30 107 34 99/60 (73) 94 718/19 03:18 108 35 40 18/19 03:13 106 7/18/19 03:00 114/68 718 03:00 109 29 114/68 (83) 94 7/18/ 02:30 107 28 102/67 (79) 94 718/19 02:00 106/67 7/18 02:00 116 31 106/67 (80) 94 1819 01:30 121 37 109/63 (78) 94 71819 01:00 111 31 109/64 (79) 94 18/19 01:00 109/64 18 00:55 89 32 40 18 00:30 107 26 101/67 (78) 94 18 00:00 98.2 102 28 98/64 (75) 99 18 00:00 98/64 02/22/19 00:00 40 02/22/19 00:00 Mechanical Ventilator 02/21/19 23:30 92 29 108/66 (80) 99 02/21/19 23:24 91 02/21/19 23:20 88 29 40 02/21/19 23:00 93 32 95/66 (76) 99 02/21/19 23:00 95/66 02/21/19 22:30 93 28 105/67 (80) 99 02/21/19 22:30 89 106/73 02/21/19 22:15 93 28 106/73 (84) 100 02/21/19 22:02 88/59 02/21/19 22:00 93 27 88/59 (69) 98 02/21/19 21:57 78/50 02/21/19 21:17 96 26 40 02/21/19 21:15 94 23 78/50 (59) 99 02/21/19 21:00 93 26 85/55 (65) 99 02/21/19 20:15 92 26 84/46 (59) 99 02/21/19 20:00 40 02/21/19 20:00 Mechanical Ventilator 02/21/19 20:00 86 02/21/19 20:00 97.5 93 27 74/50 (58) 97 02/21/19 19:13 91 26 40 02/21/19 19:00 91 26 91/63 (72) 99 02/21/19 18:00 91 26 89/58 (68) 99 02/21/19 17:00 90 26 86/56 (66) 99 02/21/19 16:55 111 36 40 02/21/19 16:00 Mechanical Ventilator 02/21/19 16:00 Mechanical Ventilator 02/21/19 16:00 40 02/21/19 16:00 95 02/21/19 16:00 98.2 95 26 98/59 (72) 99 Intake and Output 02/21/19 02/22/19 19:00 07:00 Intake Total 712.5 ml 1180.42 ml Output Total 1910 ml 1300 ml Balance -1197.5 ml -119.58 ml Free Water 100 ml 50 ml IV Total 252.5 ml 650.42 ml Tube Feeding 360 ml 480 ml Output Urine Total 1860 ml 1300 ml Stool Total 50 ml # Bowel Movements 50 Laboratory Tests 02/21/19 21:10: Vancomycin Level Trough 15.3H 02/22/19 03:46: White Blood Count 33.6*H, Red Blood Count 2.65L, Hemoglobin 8.6L, Hematocrit 25.3L, Mean Corpuscular Volume 96, Mean Corpuscular Hemoglobin 32.4H, Mean Corpuscular Hemoglobin Concent 33.9, Red Cell Distribution Width 15.2H, Platelet Count 283#, Mean Platelet Volume 8.6, Neutrophils (%) (Auto) , Lymphocytes (%) (Auto) , Monocytes (%) (Auto) , Eosinophils (%) (Auto) , Basophils (%) (Auto) , Differential Total Cells Counted 100, Neutrophils % ( Manual) 88H, Lymphocytes % (Manual) 5L, Monocytes % (Manual) 7, Eosinophils % ( Manual) 0, Basophils % (Manual) 0, Band Neutrophils 0, Platelet Estimate Adequate, Platelet Morphology Normal, Hypochromasia 2+, Anisocytosis 1+, Spherocytes 1+, Sodium Level 140, Potassium Level 2.7*L, Chloride Level 107, Carbon Dioxide Level 23, Anion Gap 10, Blood Urea Nitrogen 7, Creatinine 0.8, Estimat Glomerular Filtration Rate > 60, Glucose Level 139H, Calcium Level 7.5L , Phosphorus Level 2.9, Magnesium Level 2.0, Total Bilirubin 6.1H, Direct Bilirubin 5.0H, Aspartate Amino Transf (AST/SGOT) 204H, Alanine Aminotransferase (ALT/SGPT) 67, Alkaline Phosphatase 249H, Total Protein 4.9L, Albumin 1.4L, Globulin 3.5, Albumin/Globulin Ratio 0.4L 02/22/19 14:05: Arterial Blood pH 7.490H, Arterial Blood Partial Pressure CO2 32.4L, Arterial Blood Partial Pressure O2 99.6, Arterial Blood HCO3 24.2, Arterial Blood Oxygen Saturation 97.2, Arterial Blood Base Excess 1.2, Cesar Test Positive Height (Feet): 5 Height (Inches): 5.00 Weight (Pounds): 170 General Appearance: no apparent distress EENT: other - vented Cardiovascular: tachycardia Respiratory/Chest: decreased breath sounds Abdomen: distended Objective no change Scotty Bailon MD Feb 22, 2019 15:46
--- NOTE | 2019-02-22 15:57 | NUR ---
*-* INSURANCE *-* ALL CLINICAL AD REVIEWS HAVE BEEN FAXED TO: VANESSA WATTERS: [place] P- [id number] X [id number] [phone]..............REVIEW/CLINICAL
--- NOTE | 2019-02-22 16:03 | Surgery Progress Note ---
Surgery Progress Note Subjective Procedure Performed left femoral central venous catheter insertion Additional Comments leukocytosis worsening exam unchanged labs noted septic Objective Last 24 Hour Vital Signs Date Time Temp Pulse Resp B/P (MAP) Pulse Ox O2 Delivery O2 Flow Rate FiO2 02/22/19 14:55 95 31 40 02/22/19 12:49 97 35 40 02/22/19 12:30 98 31 111/53 (72) 96 02/22/19 12:15 102 31 119/54 (75) 97 02/22/19 12:06 100 36 101/47 (65) 95 02/22/19 12:03 103 33 90/49 (63) 92 02/22/19 12:00 Mechanical Ventilator 02/22/19 12:00 40 02/22/19 12:00 101 02/22/19 12:00 98.5 100 28 86/38 (54) 96 02/22/19 11:45 99 34 94/60 (71) 96 02/22/19 11:33 99 32 92/58 (69) 97 02/22/19 11:30 98 32 89/58 (68) 96 02/22/19 11:15 100 39 105/63 (77) 98 02/22/19 11:00 104 34 109/66 (80) 94 1819 10:56 106 36 40 02/22/19 10:45 97 29 91/58 (69) 99 18/19 10:30 102 32 94/65 (75) 98 18/19 10:15 105 29 99/55 (70) 95 1819 10:12 90/47 1819 10:04 107 28 90/47 (61) 97 1819 10:00 94/62 1819 10:00 105 29 88/51 (63) 97 1819 09:45 109 31 94/62 (73) 98 1819 09:30 114 36 106/68 (81) 93 18/19 09:30 94/62 18/19 09:15 111 35 103/70 (81) 95 18 09:00 112 33 110/68 (82) 92 18/19 09:00 110/68 18/19 08:45 116 39 106/69 (81) 92 18/19 08:41 115 33 40 40 7/18/19 08:40 92 7/18/19 08:30 117 37 110/71 (84) 95 7/18/19 08:15 118 34 118/66 (83) 95 7/18/19 08:00 118 7/18/19 08:00 40 7/18/19 08:00 Mechanical Ventilator 02/22/19 08:00 98.0 119 37 109/69 (82) 94 718/19 08:00 110/66 718/19 07:30 119 32 118/79 (92) 92 718/19 07:12 122 33 40 7/18/19 07:00 108 32 114/76 (89) 95 7/18/19 07:00 107/79 718/ 06:30 109 34 102/73 (83) 96 7/18/19 06:00 107 34 105/64 (78) 92 7/18 06:00 105/64 7/ 05:30 98 26 105/63 (77) 98 7/18/19 05:12 97 27 40 /18/19 05:00 102/68 7/18/19 05:00 96 26 102/68 (79) 100 7/18/19 04:30 97 30 94/65 (75) 100 7/18/19 04:00 98.2 101 31 97/65 (76) 99 7/18/19 04:00 40 7/18/19 04:00 97/65 7/18/19 04:00 Mechanical Ventilator 02/22/19 03:30 107 34 99/60 (73) 94 718/19 03:18 108 35 40 718/19 03:13 106 7/18/19 03:00 114/68 7/18/19 03:00 109 29 114/68 (83) 94 7/18/19 02:30 107 28 102/67 (79) 94 7/18/19 02:00 106/67 7/18/19 02:00 116 31 106/67 (80) 94 7/18/19 01:30 121 37 109/63 (78) 94 7/18/19 01:00 111 31 109/64 (79) 94 718/19 01:00 109/64 718/19 00:55 89 32 40 7/18/19 00:30 107 26 101/67 (78) 94 02/22/19 00:00 98.2 102 28 98/64 (75) 99 02/22/19 00:00 98/64 02/22/19 00:00 40 02/22/19 00:00 Mechanical Ventilator 02/21/19 23:30 92 29 108/66 (80) 99 02/21/19 23:24 91 02/21/19 23:20 88 29 40 02/21/19 23:00 93 32 95/66 (76) 99 02/21/19 23:00 95/66 02/21/19 22:30 93 28 105/67 (80) 99 02/21/19 22:30 89 106/73 02/21/19 22:15 93 28 106/73 (84) 100 02/21/19 22:02 88/59 02/21/19 22:00 93 27 88/59 (69) 98 02/21/19 21:57 78/50 02/21/19 21:17 96 26 40 02/21/19 21:15 94 23 78/50 (59) 99 02/21/19 21:00 93 26 85/55 (65) 99 02/21/19 20:15 92 26 84/46 (59) 99 02/21/19 20:00 40 02/21/19 20:00 Mechanical Ventilator 02/21/19 20:00 86 02/21/19 20:00 97.5 93 27 74/50 (58) 97 02/21/19 19:13 91 26 40 02/21/19 19:00 91 26 91/63 (72) 99 02/21/19 18:00 91 26 89/58 (68) 99 02/21/19 17:00 90 26 86/56 (66) 99 02/21/19 16:55 111 36 40 I&O Intake and Output 02/21/19 02/22/19 19:00 07:00 Intake Total 712.5 ml 1180.42 ml Output Total 1910 ml 1300 ml Balance -1197.5 ml -119.58 ml Free Water 100 ml 50 ml IV Total 252.5 ml 650.42 ml Tube Feeding 360 ml 480 ml Output Urine Total 1860 ml 1300 ml Stool Total 50 ml # Bowel Movements 50 Cardiovascular: RSR Respiratory: decreased breath sounds Abdomen: soft, present bowel sounds Extremities: no cyanosis, other Laboratory Tests Test 02/21/19 21:10 02/22/19 03:46 02/22/19 14:05 Vancomycin Level Trough 15.3 ug/mL (5.0-12.0) H White Blood Count 33.6 K/UL (4.8-10.8) *H Red Blood Count 2.65 M/UL (4.70-6.10) L Hemoglobin 8.6 G/DL (14.2-18.0) L Hematocrit 25.3 % (42.0-52.0) L Mean Corpuscular Volume 96 FL (80-99) Mean Corpuscular Hemoglobin 32.4 PG (27.0-31.0) H Mean Corpuscular Hemoglobin Concent 33.9 G/DL (32.0-36.0) Red Cell Distribution Width 15.2 % (11.6-14.8) H Platelet Count 283 K/UL (150-450) # Mean Platelet Volume 8.6 FL (6.5-10.1) Neutrophils (%) (Auto) % (45.0-75.0) Lymphocytes (%) (Auto) % (20.0-45.0) Monocytes (%) (Auto) % (1.0-10.0) Eosinophils (%) (Auto) % (0.0-3.0) Basophils (%) (Auto) % (0.0-2.0) Differential Total Cells Counted 100 Neutrophils % (Manual) 88 % (45-75) H Lymphocytes % (Manual) 5 % (20-45) L Monocytes % (Manual) 7 % (1-10) Eosinophils % (Manual) 0 % (0-3) Basophils % (Manual) 0 % (0-2) Band Neutrophils 0 % (0-8) Platelet Estimate Adequate Platelet Morphology Normal Hypochromasia 2+ Anisocytosis 1+ Spherocytes 1+ Sodium Level 140 MMOL/L (136-145) Potassium Level 2.7 MMOL/L (3.5-5.1) *L Chloride Level 107 MMOL/L (98-107) Carbon Dioxide Level 23 MMOL/L (21-32) Anion Gap 10 mmol/L (5-15) Blood Urea Nitrogen 7 mg/dL (7-18) Creatinine 0.8 MG/DL (0.55-1.30) Estimat Glomerular Filtration Rate > 60 mL/min (>60) Glucose Level 139 MG/DL (74-106) H Calcium Level 7.5 MG/DL (8.5-10.1) L Phosphorus Level 2.9 MG/DL (2.5-4.9) Magnesium Level 2.0 MG/DL (1.8-2.4) Total Bilirubin 6.1 MG/DL (0.2-1.0) H Direct Bilirubin 5.0 MG/DL (0.0-0.3) H Aspartate Amino Transf (AST/SGOT) 204 U/L (15-37) H Alanine Aminotransferase (ALT/SGPT) 67 U/L (12-78) Alkaline Phosphatase 249 U/L (46-116) H Total Protein 4.9 G/DL (6.4-8.2) L Albumin 1.4 G/DL (3.4-5.0) L Globulin 3.5 g/dL Albumin/Globulin Ratio 0.4 (1.0-2.7) L Arterial Blood pH 7.490 (7.350-7.450) Arterial Blood Partial Pressure CO2 32.4 mmHg (35.0-45.0) L Arterial Blood Partial Pressure O2 99.6 mmHg (75.0-100.0) Arterial Blood HCO3 24.2 mmol/L (22.0-26.0) Arterial Blood Oxygen Saturation 97.2 % (95-100) Arterial Blood Base Excess 1.2 (-2-2) Cesar Test Positive Plan Problems: (1) Non-compliance Assessment & Plan: Noncompliance with seizure medication with known history of seizures Now had seizure Appreciate neurology input (2) Electrolyte and fluid disorder Assessment & Plan: Likely due to EtOH use and dehydration IV hydration Trend labs (3) Fever (4) Oral thrush (5) Diarrhea (6) Aspiration pneumonia (7) Seizure disorder (8) Tachycardia (9) Altered mental status (10) Alcohol withdrawal seizure (11) Alcohol withdrawal seizure (12) Episode of confusion (13) Coffee ground emesis (14) Gastrointestinal bleed Assessment & Plan: Patient on admission identified to have maroon-colored stool and coffee-ground emesis. Labs noted mild anemia with H&H trending down. No acute active bleed noted but given patient's history high risk for potential ulcers. PPI Appreciate GI input considerations for EGD once stable No evidence of pulmonary embolus, aortic dissection or aneurysm. Posterior basilar consolidation suspicious for pneumonia. Correlate clinically. Trace bilateral pleural effusions. Possible enterocolitis as described above. Please correlate clinically. Mild ascites Fatty liver Cholelithiasis with wall thickening. Cholecystitis not excluded. Small right inguinal hernia containing fat Extensive breathing motion artifact limiting evaluation. We will follow with recommendations thank you (15) Sinus tachycardia (16) Septic shock (17) Sepsis Assessment & Plan: Patient septic leukocytosis improved today lactic acidosis improving anemia renal function declining electrolyte disturbance US noted on pressors now but weaning on IV abx intubated on vent support cont with aggressive resuscitation repeat US ordered noted. likely liver dysfunction. (18) Lactic acid acidosis (19) STEFANI (acute kidney injury) (20) Abnormal LFTs (21) High anion gap metabolic acidosis Juanpablo Marcus Feb 22, 2019 16:03
--- NOTE | 2019-02-22 16:51 | Cardiac Electrophysiology PN ---
Assessment/Plan Assessment/Plan 1. Sinus tachycardia up to 170s. No evidence of acute myocardial infarction . Due to sepsis and anemia and alcohol withdrawal. Echo Nl EF 60% 2. Septic shock and E Coli bacteremia , back on pressors and on broad- spectrum IV antibiotics. 3. Troponin leak. Type 2. Repeat level 0.16 4. Respiratory failure on the vent. Failed weaning again 5. ETOH withdrawal 6. Seizures with noncompliance. 7. Upper gi bleed. EGD still pending for high WBC DW RN Subjective Subjective In ICU on the Vent. In Sinus tach. Failed weaning. Bled from his [place].Back on Levophed. Objective Last 24 Hour Vital Signs Date Time Temp Pulse Resp B/P (MAP) Pulse Ox O2 Delivery O2 Flow Rate FiO2 02/22/19 14:55 95 31 40 02/22/19 12:49 97 35 40 02/22/19 12:30 98 31 111/53 (72) 96 02/22/19 12:15 102 31 119/54 (75) 97 02/22/19 12:06 100 36 101/47 (65) 95 02/22/19 12:03 103 33 90/49 (63) 92 02/22/19 12:00 Mechanical Ventilator 02/22/19 12:00 40 02/22/19 12:00 101 02/22/19 12:00 98.5 100 28 86/38 (54) 96 02/22/19 11:45 99 34 94/60 (71) 96 02/22/19 11:33 99 32 92/58 (69) 97 02/22/19 11:30 98 32 89/58 (68) 96 02/22/19 11:15 100 39 105/63 (77) 98 02/22/19 11:00 104 34 109/66 (80) 94 02/22/19 10:56 106 36 40 02/22/19 10:45 97 29 91/58 (69) 99 02/22/19 10:30 102 32 94/65 (75) 98 02/22/19 10:15 105 29 99/55 (70) 95 02/22/19 10:12 90/47 02/22/19 10:04 107 28 90/47 (61) 97 02/22/19 10:00 94/62 02/22/19 10:00 105 29 88/51 (63) 97 7/18/19 09:45 109 31 94/62 (73) 98 7/18/19 09:30 114 36 106/68 (81) 93 7/18/19 09:30 94/62 7/18/19 09:15 111 35 103/70 (81) 95 7/18/19 09:00 112 33 110/68 (82) 92 718/19 09:00 110/68 718/19 08:45 116 39 106/69 (81) 92 18 08:41 115 33 40 40 /18/19 08:40 92 /18/ 08:30 117 37 110/71 (84) 95 718/19 08:15 118 34 118/66 (83) 95 1819 08:00 118 18 08:00 40 18/ 08:00 Mechanical Ventilator 02/22/19 08:00 98.0 119 37 109/69 (82) 94 18 08:00 110/66 02/22/19 07:30 119 32 118/79 (92) 92 1819 07:12 122 33 40 18/ 07:00 108 32 114/76 (89) 95 7/18/19 07:00 107/79 718/19 06:30 109 34 102/73 (83) 96 7/18/19 06:00 107 34 105/64 (78) 92 7/18/19 06:00 105/64 7/18/19 05:30 98 26 105/63 (77) 98 7/18/19 05:12 97 27 40 /18/19 05:00 102/68 7/18/19 05:00 96 26 102/68 (79) 100 7/18/19 04:30 97 30 94/65 (75) 100 7/18/19 04:00 98.2 101 31 97/65 (76) 99 7/18/19 04:00 40 7/18/19 04:00 97/65 718/19 04:00 Mechanical Ventilator 02/22/19 03:30 107 34 99/60 (73) 94 7/18/19 03:18 108 35 40 7/18/19 03:13 106 7/18/19 03:00 114/68 7 03:00 109 29 114/68 (83) 94 718 02:30 107 28 102/67 (79) 94 718 02:00 106/67 718 02:00 116 31 106/67 (80) 94 71819 01:30 121 37 109/63 (78) 94 71819 01:00 111 31 109/64 (79) 94 18 01:00 109/64 18 00:55 89 32 40 18 00:30 107 26 101/67 (78) 94 18 00:00 98.2 102 28 98/64 (75) 99 18 00:00 98/64 02/22/19 00:00 40 02/22/19 00:00 Mechanical Ventilator 02/21/19 23:30 92 29 108/66 (80) 99 02/21/19 23:24 91 02/21/19 23:20 88 29 40 02/21/19 23:00 93 32 95/66 (76) 99 02/21/19 23:00 95/66 02/21/19 22:30 93 28 105/67 (80) 99 02/21/19 22:30 89 106/73 02/21/19 22:15 93 28 106/73 (84) 100 02/21/19 22:02 88/59 02/21/19 22:00 93 27 88/59 (69) 98 02/21/19 21:57 78/50 02/21/19 21:17 96 26 40 02/21/19 21:15 94 23 78/50 (59) 99 02/21/19 21:00 93 26 85/55 (65) 99 02/21/19 20:15 92 26 84/46 (59) 99 02/21/19 20:00 40 02/21/19 20:00 Mechanical Ventilator 02/21/19 20:00 86 02/21/19 20:00 97.5 93 27 74/50 (58) 97 02/21/19 19:13 91 26 40 02/21/19 19:00 91 26 91/63 (72) 99 02/21/19 18:00 91 26 89/58 (68) 99 02/21/19 17:00 90 26 86/56 (66) 99 02/21/19 16:55 111 36 40 Intake and Output 02/21/19 02/22/19 19:00 07:00 Intake Total 712.5 ml 1180.42 ml Output Total 1910 ml 1300 ml Balance -1197.5 ml -119.58 ml Free Water 100 ml 50 ml IV Total 252.5 ml 650.42 ml Tube Feeding 360 ml 480 ml Output Urine Total 1860 ml 1300 ml Stool Total 50 ml # Bowel Movements 50 Laboratory Tests Test 02/21/19 21:10 02/22/19 03:46 02/22/19 14:05 Vancomycin Level Trough 15.3 ug/mL (5.0-12.0) H White Blood Count 33.6 K/UL (4.8-10.8) *H Red Blood Count 2.65 M/UL (4.70-6.10) L Hemoglobin 8.6 G/DL (14.2-18.0) L Hematocrit 25.3 % (42.0-52.0) L Mean Corpuscular Volume 96 FL (80-99) Mean Corpuscular Hemoglobin 32.4 PG (27.0-31.0) H Mean Corpuscular Hemoglobin Concent 33.9 G/DL (32.0-36.0) Red Cell Distribution Width 15.2 % (11.6-14.8) H Platelet Count 283 K/UL (150-450) # Mean Platelet Volume 8.6 FL (6.5-10.1) Neutrophils (%) (Auto) % (45.0-75.0) Lymphocytes (%) (Auto) % (20.0-45.0) Monocytes (%) (Auto) % (1.0-10.0) Eosinophils (%) (Auto) % (0.0-3.0) Basophils (%) (Auto) % (0.0-2.0) Differential Total Cells Counted 100 Neutrophils % (Manual) 88 % (45-75) H Lymphocytes % (Manual) 5 % (20-45) L Monocytes % (Manual) 7 % (1-10) Eosinophils % (Manual) 0 % (0-3) Basophils % (Manual) 0 % (0-2) Band Neutrophils 0 % (0-8) Platelet Estimate Adequate Platelet Morphology Normal Hypochromasia 2+ Anisocytosis 1+ Spherocytes 1+ Sodium Level 140 MMOL/L (136-145) Potassium Level 2.7 MMOL/L (3.5-5.1) *L Chloride Level 107 MMOL/L (98-107) Carbon Dioxide Level 23 MMOL/L (21-32) Anion Gap 10 mmol/L (5-15) Blood Urea Nitrogen 7 mg/dL (7-18) Creatinine 0.8 MG/DL (0.55-1.30) Estimat Glomerular Filtration Rate > 60 mL/min (>60) Glucose Level 139 MG/DL (74-106) H Calcium Level 7.5 MG/DL (8.5-10.1) L Phosphorus Level 2.9 MG/DL (2.5-4.9) Magnesium Level 2.0 MG/DL (1.8-2.4) Total Bilirubin 6.1 MG/DL (0.2-1.0) H Direct Bilirubin 5.0 MG/DL (0.0-0.3) H Aspartate Amino Transf (AST/SGOT) 204 U/L (15-37) H Alanine Aminotransferase (ALT/SGPT) 67 U/L (12-78) Alkaline Phosphatase 249 U/L (46-116) H Total Protein 4.9 G/DL (6.4-8.2) L Albumin 1.4 G/DL (3.4-5.0) L Globulin 3.5 g/dL Albumin/Globulin Ratio 0.4 (1.0-2.7) L Arterial Blood pH 7.490 (7.350-7.450) Arterial Blood Partial Pressure CO2 32.4 mmHg (35.0-45.0) L Arterial Blood Partial Pressure O2 99.6 mmHg (75.0-100.0) Arterial Blood HCO3 24.2 mmol/L (22.0-26.0) Arterial Blood Oxygen Saturation 97.2 % (95-100) Arterial Blood Base Excess 1.2 (-2-2) Cesar Test Positive Microbiology Date/Time Source Procedure Growth Status 02/20/19 15:50 Blood Blood Culture - Preliminary NO GROWTH AFTER 24 HOURS Resulted 02/20/19 14:00 Blood Blood Culture - Preliminary NO GROWTH AFTER 24 HOURS Resulted 02/20/19 14:00 Sputum Induced Gram Stain - Final Complete 02/20/19 14:00 Sputum Culture - Final Luciana Albicans Complete 02/20/19 20:20 Stool Clostridium difficile Toxin Assay - Final Complete 02/20/19 16:20 Indwelling Cath Urine Culture - Preliminary NO GROWTH AFTER 24 HOURS Resulted Objective HEAD AND NECK: No JVD.Orally intubated with OG tube LUNGS: Decreased breath sounds. CARDIOVASCULAR: Regular S1 and S2 with no gallop or murmur. ABDOMEN: Soft. EXTREMITIES: No pitting edema. Fidencio Trevino MD Feb 22, 2019 16:51
--- NOTE | 2019-02-22 16:56 | General Progress Note ---
Assessment/Plan Status: not improved, unchanged Assessment/Plan: Assessment/Plan Status: doing well, stable Status Narrative Assessment/Plan: 54 year old male with pMH of seizure disorder and etoh abuse admitted for seizures 2/2 non-compliance #severe septic shock likely 2/2 UTI #Gram negative bacteremia, now resolved by surveillance follow up blood culture #Acute respiratory failure -Vanc and Zosyn - gentamicin - Fluconazole per ID - Re culture ordered due to severe increase in the WBC from 15 to 26 to 29 thousand of unclear etiology - AWAIT ID input. - CBC serial. - CT 02/18 with atelectasis primarily - Diuresis started and good response -ID consult appreciated - Add Immunoglobulin and hepatitis panel. PENDING -f/u cultures -cont ICU care -intubated and mild sedation. He follows commands well. FAILED weaning trial. -vent management per pulmonary -wean as tolerated -Titrate pressors to goal map >65 -abg prn - Reviewed CT chest/abd/pel #Lactic acidosis -2/2 severe shock/ poss abd source/ seizures - 2 D Echo on 02/16 with EF 65%. Discussed with cardiology and etiology likely sepsis and not cardiogenic -CTM -Fluid boluses completed. -Cont mIVF #Coagulopathy # Thrombocytopenia - 40,000 today. Stable for 3 days and has blood tinge urine - Hematology consult with Dr. Johnston appreciated. Flow cytometry pending. -likely 2/2 hepatic injury 2/2 shock - Consumption coagulopathy. - Consider platelet transfusion if LESS than 30K with urine blood tinge color. #Coffee ground emesis likely in setting of GI bleed -H/H trending down. Monitor -GI consult appreciated -Plan for EGD once stable. Cancelled until the patient is hemodynamically more stable, OFF pressors transition and now back on low dose LEVOPHED 3 mcg - -surgery consult appreciated #Seizures 2/2 noncomplaint with AED -s/p phenytoin load in ED -Cont Phenytoin -Neurology consult appreciated -pending EEG - no seizures noted in last 24 hours -Ativan PRN for seizures -NPO -Seizure precautions #Hypokalemia - Replete as needed #hypophosphatemia - Repleted. #Hypomagnesemia -repleted -CTM # Urethral hemorrhage and clot evacuation - Dr. Matta from urology contacted for evaluation and consideration of 3 way CBI. - H/H and INR stat today. - Consider PRBC and Platelets if Hb < 8 or Plt < 30 K Code: Full Subjective ROS Limited/Unobtainable: Yes Allergies: Coded Allergies: No Known Allergies (Unverified , 02/10/15) All Systems: reviewed and negative except above Objective Last 24 Hour Vital Signs Date Time Temp Pulse Resp B/P (MAP) Pulse Ox O2 Delivery O2 Flow Rate FiO2 02/22/19 14:55 95 31 40 02/22/19 12:49 97 35 40 02/22/19 12:30 98 31 111/53 (72) 96 02/22/19 12:15 102 31 119/54 (75) 97 02/22/19 12:06 100 36 101/47 (65) 95 02/22/19 12:03 103 33 90/49 (63) 92 02/22/19 12:00 Mechanical Ventilator 02/22/19 12:00 40 02/22/19 12:00 101 02/22/19 12:00 98.5 100 28 86/38 (54) 96 02/22/19 11:45 99 34 94/60 (71) 96 02/22/19 11:33 99 32 92/58 (69) 97 02/22/19 11:30 98 32 89/58 (68) 96 02/22/19 11:15 100 39 105/63 (77) 98 02/22/19 11:00 104 34 109/66 (80) 94 02/22/19 10:56 106 36 40 02/22/19 10:45 97 29 91/58 (69) 99 02/22/19 10:30 102 32 94/65 (75) 98 02/22/19 10:15 105 29 99/55 (70) 95 02/22/19 10:12 90/47 02/22/19 10:04 107 28 90/47 (61) 97 02/22/19 10:00 94/62 02/22/19 10:00 105 29 88/51 (63) 97 02/22/19 09:45 109 31 94/62 (73) 98 02/22/19 09:30 114 36 106/68 (81) 93 02/22/19 09:30 94/62 02/22/19 09:15 111 35 103/70 (81) 95 7/18/19 09:00 112 33 110/68 (82) 92 718/19 09:00 110/68 71819 08:45 116 39 106/69 (81) 92 718 08:41 115 33 40 40 7/18/19 08:40 92 7/18/19 08:30 117 37 110/71 (84) 95 71819 08:15 118 34 118/66 (83) 95 18 08:00 118 /18 08:00 40 18 08:00 Mechanical Ventilator 02/22/19 08:00 98.0 119 37 109/69 (82) 94 71819 08:00 110/66 718 07:30 119 32 118/79 (92) 92 02/22/19 07:12 122 33 40 718 07:00 108 32 114/76 (89) 95 18 07:00 107/79 18 06:30 109 34 102/73 (83) 96 18 06:00 107 34 105/64 (78) 92 7/1819 06:00 105/64 // 05:30 98 26 105/63 (77) 98 7/18/19 05:12 97 27 40 /18 05:00 102/68 18 05:00 96 26 102/68 (79) 100 7/18/19 04:30 97 30 94/65 (75) 100 7/18/19 04:00 98.2 101 31 97/65 (76) 99 7/18/19 04:00 40 7/18/19 04:00 97/65 718/19 04:00 Mechanical Ventilator 02/22/19 03:30 107 34 99/60 (73) 94 7/18/19 03:18 108 35 40 7/18/19 03:13 106 7/18/19 03:00 114/68 7/18/19 03:00 109 29 114/68 (83) 94 7/18/19 02:30 107 28 102/67 (79) 94 7/18/19 02:00 106/67 718/19 02:00 116 31 106/67 (80) 94 7/18/19 01:30 121 37 109/63 (78) 94 7/18/19 01:00 111 31 109/64 (79) 94 02/22/19 01:00 109/64 02/22/19 00:55 89 32 40 02/22/19 00:30 107 26 101/67 (78) 94 02/22/19 00:00 98.2 102 28 98/64 (75) 99 18 00:00 98/64 02/22/19 00:00 40 02/22/19 00:00 Mechanical Ventilator 02/21/19 23:30 92 29 108/66 (80) 99 02/21/19 23:24 91 02/21/19 23:20 88 29 40 02/21/19 23:00 93 32 95/66 (76) 99 02/21/19 23:00 95/66 02/21/19 22:30 93 28 105/67 (80) 99 02/21/19 22:30 89 106/73 02/21/19 22:15 93 28 106/73 (84) 100 02/21/19 22:02 88/59 02/21/19 22:00 93 27 88/59 (69) 98 02/21/19 21:57 78/50 02/21/19 21:17 96 26 40 02/21/19 21:15 94 23 78/50 (59) 99 02/21/19 21:00 93 26 85/55 (65) 99 02/21/19 20:15 92 26 84/46 (59) 99 02/21/19 20:00 40 02/21/19 20:00 Mechanical Ventilator 02/21/19 20:00 86 02/21/19 20:00 97.5 93 27 74/50 (58) 97 02/21/19 19:13 91 26 40 02/21/19 19:00 91 26 91/63 (72) 99 02/21/19 18:00 91 26 89/58 (68) 99 02/21/19 17:00 90 26 86/56 (66) 99 02/21/19 16:55 111 36 40 Intake and Output 02/21/19 02/22/19 19:00 07:00 Intake Total 712.5 ml 1180.42 ml Output Total 1910 ml 1300 ml Balance -1197.5 ml -119.58 ml Free Water 100 ml 50 ml IV Total 252.5 ml 650.42 ml Tube Feeding 360 ml 480 ml Output Urine Total 1860 ml 1300 ml Stool Total 50 ml # Bowel Movements 50 Laboratory Tests 02/21/19 21:10: Vancomycin Level Trough 15.3H 02/22/19 03:46: White Blood Count 33.6*H, Red Blood Count 2.65L, Hemoglobin 8.6L, Hematocrit 25.3L, Mean Corpuscular Volume 96, Mean Corpuscular Hemoglobin 32.4H, Mean Corpuscular Hemoglobin Concent 33.9, Red Cell Distribution Width 15.2H, Platelet Count 283#, Mean Platelet Volume 8.6, Neutrophils (%) (Auto) , Lymphocytes (%) (Auto) , Monocytes (%) (Auto) , Eosinophils (%) (Auto) , Basophils (%) (Auto) , Differential Total Cells Counted 100, Neutrophils % ( Manual) 88H, Lymphocytes % (Manual) 5L, Monocytes % (Manual) 7, Eosinophils % ( Manual) 0, Basophils % (Manual) 0, Band Neutrophils 0, Platelet Estimate Adequate, Platelet Morphology Normal, Hypochromasia 2+, Anisocytosis 1+, Spherocytes 1+, Sodium Level 140, Potassium Level 2.7*L, Chloride Level 107, Carbon Dioxide Level 23, Anion Gap 10, Blood Urea Nitrogen 7, Creatinine 0.8, Estimat Glomerular Filtration Rate > 60, Glucose Level 139H, Calcium Level 7.5L , Phosphorus Level 2.9, Magnesium Level 2.0, Total Bilirubin 6.1H, Direct Bilirubin 5.0H, Aspartate Amino Transf (AST/SGOT) 204H, Alanine Aminotransferase (ALT/SGPT) 67, Alkaline Phosphatase 249H, Total Protein 4.9L, Albumin 1.4L, Globulin 3.5, Albumin/Globulin Ratio 0.4L 02/22/19 14:05: Arterial Blood pH 7.490H, Arterial Blood Partial Pressure CO2 32.4L, Arterial Blood Partial Pressure O2 99.6, Arterial Blood HCO3 24.2, Arterial Blood Oxygen Saturation 97.2, Arterial Blood Base Excess 1.2, Cesar Test Positive Height (Feet): 5 Height (Inches): 5.00 Weight (Pounds): 170 General Appearance: WD/WN, moderate distress EENT: PERRL/EOMI Neck: non-tender Cardiovascular: normal rate, regular rhythm Respiratory/Chest: lungs clear, normal breath sounds Abdomen: normal bowel sounds Extremities: normal range of motion Edema: trace edema Neurologic: machine feeder II-XII grossly normal Roberto Sen MD Feb 22, 2019 16:56
--- NOTE | 2019-02-22 17:28 | NUR ---
[employer] SI:SEPSIS. TROPONIN LEAK VS: BP 111/53, P 102, T 98.5, RR 37, SpO2 96 on VENT FiO2 40 WBC 33.6, RBC 2.65, H&H 8.6/25.3, K 2.7 IS:FLUCONAZOLE 200ml IV POTASSIUM CHLORIDE 100ml IVPB ZOSYN 110ml IVPB VANCOMYCIN 275ml IVPB LEVETIRACETAM 100ml IVPB THIAMINE 56ml IVPB LORAZEPAM 1mg IV ICU STATUS
--- NOTE | 2019-02-22 17:48 | Infectious Diseases Prog Note ---
Assessment/Plan Assessment/Plan ASSESSMENT AND PLAN: 1. sepsis, shock, e.coli bacteremia/uti, gram neg sepsis, pna/HCAP, ct noted, sirs, fevers fungemia, leukocytosis worse, c.diff. negative - zosyn, vancomycin, diflucan - surveillance blood cultures negative, monitor labs and chest x-ray - icu and supportive care - d/w Dr. Sen 2. History of seizures. Workup per Neurology. 3. Acute kidney injury, likely secondary to sepsis. 4. The patient is anemic. 5. Severe sepsis with leukocytosis. 6. History of ETOH abuse. 7. No known allergies. 8. Family history is noncontributory. 9. MAR was noted. 10. Case was discussed with RN. 11. Social history is positive for ETOH abuse. 12. Poor prognosis. Subjective Constitutional: Reports: fever HEENT: Reports: congestion Respiratory: Reports: shortness of breath Cardiovascular: Reports: other - on pressors Gastrointestinal/Abdominal: Reports: diarrhea; Denies: nausea, vomiting Genitourinary: Reports: other - + delgado Neurologic: Reports: weakness Psychiatric: Denies: depression Skin: Denies: rash Hematologic: Denies: bleeding Musculoskeletal: Denies: pain Allergies: Coded Allergies: No Known Allergies (Unverified , 02/10/15) Objective Vital Signs Last 24 Hour Vital Signs Date Time Temp Pulse Resp B/P (MAP) Pulse Ox O2 Delivery O2 Flow Rate FiO2 02/22/19 17:08 106 37 40 02/22/19 16:00 Mechanical Ventilator 02/22/19 14:55 95 31 40 02/22/19 12:49 97 35 40 02/22/19 12:30 98 31 111/53 (72) 96 02/22/19 12:15 102 31 119/54 (75) 97 02/22/19 12:06 100 36 101/47 (65) 95 02/22/19 12:03 103 33 90/49 (63) 92 02/22/19 12:00 Mechanical Ventilator 02/22/19 12:00 40 02/22/19 12:00 101 02/22/19 12:00 98.5 100 28 86/38 (54) 96 02/22/19 11:45 99 34 94/60 (71) 96 02/22/19 11:33 99 32 92/58 (69) 97 7/18/19 11:30 98 32 89/58 (68) 96 7/18/19 11:15 100 39 105/63 (77) 98 7/18/19 11:00 104 34 109/66 (80) 94 7/18/19 10:56 106 36 40 7/18/19 10:45 97 29 91/58 (69) 99 7/18/19 10:30 102 32 94/65 (75) 98 7/18/19 10:15 105 29 99/55 (70) 95 7/18/19 10:12 90/47 7/18/19 10:04 107 28 90/47 (61) 97 7/18/19 10:00 94/62 7/18/19 10:00 105 29 88/51 (63) 97 7/18/19 09:45 109 31 94/62 (73) 98 7/18/19 09:30 114 36 106/68 (81) 93 7/18/19 09:30 94/62 7/18/19 09:15 111 35 103/70 (81) 95 7/18/19 09:00 112 33 110/68 (82) 92 7/18/19 09:00 110/68 7/18/ 08:45 116 39 106/69 (81) 92 7/18/ 08:41 115 33 40 40 /18/19 08:40 92 /18/ 08:30 117 37 110/71 (84) 95 7/18/19 08:15 118 34 118/66 (83) 95 18/19 08:00 118 /18/ 08:00 40 7/18/ 08:00 Mechanical Ventilator 18 08:00 98.0 119 37 109/69 (82) 94 7/18/19 08:00 110/66 7/18/19 07:30 119 32 118/79 (92) 92 7/18/ 07:12 122 33 40 7/18/19 07:00 108 32 114/76 (89) 95 7/18/19 07:00 107/79 7/18/19 06:30 109 34 102/73 (83) 96 7/18/19 06:00 107 34 105/64 (78) 92 7/18/19 06:00 105/64 7/18/19 05:30 98 26 105/63 (77) 98 7/18/19 05:12 97 27 40 7/18/19 05:00 102/68 7/18/19 05:00 96 26 102/68 (79) 100 7/18/19 04:30 97 30 94/65 (75) 100 7/18/19 04:00 98.2 101 31 97/65 (76) 99 7/18/19 04:00 40 7/18/19 04:00 97/65 [id number] 04:00 Mechanical Ventilator 18 03:30 107 34 99/60 (73) 94 718/19 03:18 108 35 40 7/18/ 03:13 106 7/18 03:00 114/68 718 03:00 109 29 114/68 (83) 94 71819 02:30 107 28 102/67 (79) 94 18 02:00 106/67 718 02:00 116 31 106/67 (80) 94 718/19 01:30 121 37 109/63 (78) 94 7/18/19 01:00 111 31 109/64 (79) 94 7/18/19 01:00 109/64 18/19 00:55 89 32 40 /18/19 00:30 107 26 101/67 (78) 94 7/18/19 00:00 98.2 102 28 98/64 (75) 99 7/18/19 00:00 98/64 718/19 00:00 40 /18/ 00:00 Mechanical Ventilator 02/21/19 23:30 92 29 108/66 (80) 99 /17/19 23:24 91 7/17/ 23:20 88 29 40 // 23:00 93 32 95/66 (76) 99 7/17/19 23:00 95/66 7//19 22:30 93 28 105/67 (80) 99 //19 22:30 89 106/73 7/17/19 22:15 93 28 106/73 (84) 100 7/17/19 22:02 88/59 7/17/19 22:00 93 27 88/59 (69) 98 7/19 21:57 78/50 7/ 21:17 96 26 40 7/17/19 21:15 94 23 78/50 (59) 99 02/21/19 21:00 93 26 85/55 (65) 99 02/21/19 20:15 92 26 84/46 (59) 99 02/21/19 20:00 40 02/21/19 20:00 Mechanical Ventilator 02/21/19 20:00 86 02/21/19 20:00 97.5 93 27 74/50 (58) 97 02/21/19 19:13 91 26 40 02/21/19 19:00 91 26 91/63 (72) 99 02/21/19 18:00 91 26 89/58 (68) 99 Height (Feet): 5 Height (Inches): 5.00 Weight (Pounds): 170 General Appearance: other - on vent, lethargic HEENT: normocephalic, atraumatic, anicteric Respiratory/Chest: crackles/rales, rhonchi - bilaterally Cardiovascular: normal rate, regular rhythm, regularly irregular, no JVD Abdomen: normal bowel sounds, soft, non tender, no organomegaly, non distended , other - + rectal tube and diarrhea Genitourinary: other - + delgado - urine clear Extremities: no cyanosis Skin: no rash Neurologic/Psychiatric: other - weak, lethargic, on vent Lymphatic: no neck adenopathy Musculoskeletal: no effusion Objective CT abdomen and pelvis: IMPRESSION: No evidence of pulmonary embolus, aortic dissection or aneurysm. Posterior basilar consolidation suspicious for pneumonia. Correlate clinically. Trace bilateral pleural effusions. Possible enterocolitis as described above. Please correlate clinically. Mild ascites Fatty liver Cholelithiasis with wall thickening. Cholecystitis not excluded. Small right inguinal hernia containing fat Extensive breathing motion artifact limiting evaluation. Chest x-ray - 02/17/19 - Procedure: XRAY Chest 1v Indication: Dyspnea Comparison: 02/16/2019 A single view chest radiograph was obtained. Findings: Left basilar consolidation with air bronchograms demonstrated. Costophrenic angle is obscured. Heart size is normal. Tubes and lines are stable and satisfactory in position. IMPRESSION: No significant change from the previous exam Procedure: XRAY Chest 1v Indication: Dyspnea Comparison: 02/21/2019 A single view chest radiograph was obtained. Findings: Tubes and lines are satisfactory and stable. Heart size is normal and stable. Groundglass opacities noted diffusely. Bilateral basilar consolidation with air bronchograms demonstrated. A probable left pleural effusion is noted. IMPRESSION: Evidence of radiographically stable pulmonary edema which may be noncardiogenic. Basilar consolidation unchanged. Left pleural effusion Procedure: XRAY Chest 1v Indication: Dyspnea Comparison: 02/21/2019 A single view chest radiograph was obtained. Chest x-ray - 02/21/19 - Findings: Tubes and lines are satisfactory and stable. Heart size is normal and stable. Groundglass opacities noted diffusely. Bilateral basilar consolidation with air bronchograms demonstrated. A probable left pleural effusion is noted. IMPRESSION: Evidence of radiographically stable pulmonary edema which may be noncardiogenic. Basilar consolidation unchanged. Left pleural effusion Microbiology Date/Time Source Procedure Growth Status 02/20/19 15:50 Blood Blood Culture - Preliminary NO GROWTH AFTER 24 HOURS Resulted 02/20/19 14:00 Blood Blood Culture - Preliminary NO GROWTH AFTER 24 HOURS Resulted 02/20/19 14:00 Sputum Induced Gram Stain - Final Complete 02/20/19 14:00 Sputum Culture - Final Luciana Albicans Complete 02/20/19 20:20 Stool Clostridium difficile Toxin Assay - Final Complete 02/20/19 16:20 Indwelling Cath Urine Culture - Preliminary NO GROWTH AFTER 24 HOURS Resulted Laboratory Tests Test 02/21/19 21:10 02/22/19 03:46 02/22/19 14:05 Vancomycin Level Trough 15.3 ug/mL (5.0-12.0) H White Blood Count 33.6 K/UL (4.8-10.8) *H Red Blood Count 2.65 M/UL (4.70-6.10) L Hemoglobin 8.6 G/DL (14.2-18.0) L Hematocrit 25.3 % (42.0-52.0) L Mean Corpuscular Volume 96 FL (80-99) Mean Corpuscular Hemoglobin 32.4 PG (27.0-31.0) H Mean Corpuscular Hemoglobin Concent 33.9 G/DL (32.0-36.0) Red Cell Distribution Width 15.2 % (11.6-14.8) H Platelet Count 283 K/UL (150-450) # Mean Platelet Volume 8.6 FL (6.5-10.1) Neutrophils (%) (Auto) % (45.0-75.0) Lymphocytes (%) (Auto) % (20.0-45.0) Monocytes (%) (Auto) % (1.0-10.0) Eosinophils (%) (Auto) % (0.0-3.0) Basophils (%) (Auto) % (0.0-2.0) Differential Total Cells Counted 100 Neutrophils % (Manual) 88 % (45-75) H Lymphocytes % (Manual) 5 % (20-45) L Monocytes % (Manual) 7 % (1-10) Eosinophils % (Manual) 0 % (0-3) Basophils % (Manual) 0 % (0-2) Band Neutrophils 0 % (0-8) Platelet Estimate Adequate Platelet Morphology Normal Hypochromasia 2+ Anisocytosis 1+ Spherocytes 1+ Sodium Level 140 MMOL/L (136-145) Potassium Level 2.7 MMOL/L (3.5-5.1) *L Chloride Level 107 MMOL/L (98-107) Carbon Dioxide Level 23 MMOL/L (21-32) Anion Gap 10 mmol/L (5-15) Blood Urea Nitrogen 7 mg/dL (7-18) Creatinine 0.8 MG/DL (0.55-1.30) Estimat Glomerular Filtration Rate > 60 mL/min (>60) Glucose Level 139 MG/DL (74-106) H Calcium Level 7.5 MG/DL (8.5-10.1) L Phosphorus Level 2.9 MG/DL (2.5-4.9) Magnesium Level 2.0 MG/DL (1.8-2.4) Total Bilirubin 6.1 MG/DL (0.2-1.0) H Direct Bilirubin 5.0 MG/DL (0.0-0.3) H Aspartate Amino Transf (AST/SGOT) 204 U/L (15-37) H Alanine Aminotransferase (ALT/SGPT) 67 U/L (12-78) Alkaline Phosphatase 249 U/L (46-116) H Total Protein 4.9 G/DL (6.4-8.2) L Albumin 1.4 G/DL (3.4-5.0) L Globulin 3.5 g/dL Albumin/Globulin Ratio 0.4 (1.0-2.7) L Arterial Blood pH 7.490 (7.350-7.450) Arterial Blood Partial Pressure CO2 32.4 mmHg (35.0-45.0) L Arterial Blood Partial Pressure O2 99.6 mmHg (75.0-100.0) Arterial Blood HCO3 24.2 mmol/L (22.0-26.0) Arterial Blood Oxygen Saturation 97.2 % (95-100) Arterial Blood Base Excess 1.2 (-2-2) Cesar Test Positive Current Medications Medications (Trade) Dose Ordered Sig/Tonny Route PRN Reason Start Time Stop Time Status Last Admin Dose Admin Acetaminophen (Tylenol) 650 mg Q4H PRN ORAL Mild Pain (Pain Scale 1-3) 02/16/19 00:30 03/16/19 12:29 02/17/19 04:53 Acetaminophen (Tylenol) 650 mg Q4H PRN RECTAL Mild Pain (Pain Scale 1-3) 02/16/19 04:30 03/18/19 04:29 02/16/19 04:31 Bisacodyl (Dulcolax) 10 mg HSPRN PRN RECTAL Constipation 02/16/19 21:00 03/16/19 20:59 Chlorhexidine Gluconate (Stephanie-Hex 2%) 1 applic DAILY@2000 TOPIC 02/19/19 20:00 03/21/19 19:59 02/21/19 19:49 Dextrose (Dextrose 50%) 25 ml Q30M PRN IV Hypoglycemia 02/15/19 22:15 03/16/19 16:14 Dextrose (Dextrose 50%) 50 ml Q30M PRN IV Hypoglycemia 02/15/19 22:15 03/16/19 16:14 02/16/19 06:32 Fluconazole/ Sodium Chloride 200 ml @ 200 mls/hr Q24H IV 02/20/19 15:00 02/27/19 14:59 02/22/19 15:28 Folic Acid (Folate) 1 mg DAILY ORAL 02/22/19 09:00 03/24/19 08:59 02/22/19 09:20 Levetiracetam 100 ml @ 400 mls/hr Q12HR IVPB 02/19/19 09:00 03/21/19 08:59 02/22/19 09:20 Lorazepam (Ativan 2mg/ml 1ml) 1 mg Q2H PRN IV For Anxiety 02/16/19 09:00 02/23/19 08:59 02/22/19 01:29 Lorazepam (Ativan 2mg/ml 1ml) 1 mg Q4H PRN IV For Seizures 02/16/19 00:15 02/23/19 00:14 02/19/19 11:03 Norepinephrine Bitartrate 8 mg/ Dextrose 508 ml @ 0 mls/hr Q24H IV 02/16/19 09:30 03/18/19 09:29 02/21/19 21:57 Ondansetron HCl (Zofran) 4 mg Q6H PRN IVP Nausea & Vomiting 02/16/19 01:00 03/16/19 12:59 Pantoprazole (Protonix) 40 mg EVERY 12 HOURS IVP 02/16/19 09:00 03/18/19 08:59 02/22/19 09:19 Phenylephrine HCl 50 mg/Dextrose 250 ml @ 0 mls/hr Q24H IV 02/16/19 22:30 03/18/19 22:29 Piperacillin Sod/ Tazobactam Sod 3.375 gm/Sodium Chloride 110 ml @ 27.5 mls/hr Q8HR IVPB 02/18/19 14:00 02/25/19 13:59 02/22/19 13:56 Spironolactone (Aldactone) 25 mg EVERY 12 HOURS NG 02/22/19 21:00 03/24/19 20:59 Thiamine HCl 100 mg/Dextrose 56 ml @ 112 mls/hr Q24H IVPB 02/16/19 09:00 03/18/19 08:59 02/22/19 09:19 Vancomycin HCl (Vanco rx to dose) 1 ea DAILY PRN MISC Per rx protocol 02/16/19 09:00 03/17/19 12:59 Vancomycin HCl/ Dextrose 275 ml @ 183.333 mls/hr Q12HR@1000,2200 IVPB 02/20/19 10:00 02/25/19 09:59 02/22/19 10:17 Vasopressin 100 units/Sodium Chloride 100 ml @ 0 mls/hr Q24H IV 02/16/19 08:15 03/18/19 08:14 02/16/19 08:15 Barry Plummer MD Feb 22, 2019 17:48
[2019-02-22 18:21] LABS: HEMATOCRIT 24.3 % (42.0-52.0); HEMOGLOBIN 8.3 G/DL (14.2-18.0); MEAN CORPUSCULAR VOLUME 93 FL (80-99); PLATELET COUNT 325 K/UL (150-450); RED CELL DISTRIBUTION WIDTH 14.4 % (11.6-14.8)
--- NOTE | 2019-02-22 18:24 | NUR ---
NURSE NOTES: Patient voided about 450mL dark yellow urine without any presence of blood. Dr Sen and Dr Matta notified. Awaiting call back and orders from Dr Matta. Post void residual 171mL upon bladder scan. Condom catheter put in place. Blood pressure 113/78 on 3mcg/min of Levophed drip. Will continue to monitor and titrate per protocol. Patient cleaned, repositioned, and oral care performed at this time.
[2019-02-22 18:26] LABS: WHITE BLOOD COUNT 35.1 K/UL (4.8-10.8)
[2019-02-22 18:33] LABS: INR 1.5 (0.9-1.1)
--- NOTE | 2019-02-22 19:20 | NUR ---
HAND-OFF: Report given to ESHA Berrios. Patient VS stable at this time on 3mcg/min levophed drip. Dr Matta has not yet come to see the patient. urology cart by the patient's door. Aguilar at the bedside. Endorsed to follow up.
--- NOTE | 2019-02-22 19:40 | NUR ---
NURSE NOTES: PATIENT AWOKE STATUS, ON ETT TO VENT AC 26/TV 500/FIO2 40%/ PEEP 5, O2 SATURATION OVER 96% NOTED, OGT INTACT AND PATENT ONGOING JEVITY 1.2 AT 40ML/HR, NO RESIDUE NOTED, ABDOMEN SOFT, HYPERACTIVE BOWEL SOUND TO 4 QUADRANTS, RECTAL TUBE INTACT, GREENISH YELLOW COLOR STOOL DRAINING GRAVITY, CONDOM CATHETER INTACT AND PATENT,THIN HEMATURIA URINE IN THE LINE, WEEPING FROM LEFT FEMORAL PREVIOUS TLC SITE, ON SCD'S TO BOTH LOWER LEGS, PICC LINE TO RIGHT UPPER ARM INTACT AND PATENT, ONGOING LEVOPHED DRIP 3MCG/MIN, 2 POINT SOFT RESTRAINTS FOR SAFETY STATUS, KEPT HOB OVER 30 DEGREE, MADE LOWER BED POSITION, PROVIDED CALL LIGHT WITHIN REACH, ON BED ALARM, WILL CONTINUE TO MONITOR.
[2019-02-22] MEDS: Dyna-Hex 2% Top Sol 2oz TOPIC SCH (19:54)
--- NOTE | 2019-02-22 19:58 | NUR ---
NURSE NOTES: CALLED BACK FROM FR. SCHMIDT THAT REPORTED PT'S SITUATION, RESIDUE 171ML NOTED AFTER VOID, WAS AWARE. SAID, "JUST WATCH HIM, LEAVE ALONE."
--- NOTE | 2019-02-22 20:23 | NUR ---
NURSE NOTES: VOIDED 230ML DARK KAYLA COLOR URINE OUTED, BLADDER SCAN WAS DONE 233ML NOTED AT THIS TIME.
[2019-02-22] MEDS: Spironolactone 25mg tab NG SCH (20:42)
--- NOTE | 2019-02-22 22:00 | NUR ---
NURSE NOTES: RELEASED RESTRAINTS, REAPPLIED FOR SAFETY, WILL CONTINUE TO MONITOR.
[2019-02-22] MEDS: Phenylephrine 50 MG in D5W 245 ML IV SCH (22:30)
--- NOTE | 2019-02-22 22:54 | NUR ---
NURSE NOTES: VOIDED 350ML, DARK KAYLA COLOR URINE OUTED, WILL CONTINUE TO MONITOR.
[2019-02-23] VITALS (54 sets, daily range): BP systolic 84–124; BP diastolic 51–79
[2019-02-23] MEDS: LORazepam Inj 2mg/ml 1ml IV PRN (01:00)
--- NOTE | 2019-02-23 01:00 | NUR ---
NURSE NOTES: PATIENT IRRITABLE, ANXIOUS AND TRIED TO REMOVE ENDOTUBE THAT GIVEN ATIVAN 1MG BY IVP SLOWLY PRN ORDERED, WILL CONTINUE TO MONITOR.
--- NOTE | 2019-02-23 02:40 | NUR ---
NURSE NOTES: PATIENT AWOKE, TRIED TO OUT OF BED, DID NOT FOLLOWED COMMANDS, SECURED 2 POINT SOFT RESTRAINTS, WILL CONTINUE TO MONITOR.
[2019-02-23 04:43] LABS: HEMATOCRIT 23.1 % (42.0-52.0); HEMOGLOBIN 7.7 G/DL (14.2-18.0); MEAN CORPUSCULAR VOLUME 96 FL (80-99); PLATELET COUNT 335 K/UL (150-450); RED BLOOD COUNT 2.41 M/UL (4.70-6.10); RED CELL DISTRIBUTION WIDTH 15.1 % (11.6-14.8)
--- NOTE | 2019-02-23 04:43 | NUR ---
NURSE NOTES: MORNING CARE AND ORAL CARE WAS DONE, NO LEAKED RECTAL TUBE AND CONDOM CATHETER AT THIS TIME.
[2019-02-23 05:06] LABS: PHOSPHORUS 2.3 MG/DL (2.5-4.9); WHITE BLOOD COUNT 34.9 K/UL (4.8-10.8)
[2019-02-23 05:13] LABS: ALANINE AMINOTRANSFERASE 76 U/L (12-78); ALBUMIN 1.4 G/DL (3.4-5.0); ALBUMIN/GLOBULIN RATIO 0.5 (1.0-2.7); ALKALINE PHOSPHATASE 261 U/L (46-116); ANION GAP 9 mmol/L (5-15); ASPARTATE AMINO TRANSFERASE 222 U/L (15-37); BILIRUBIN,TOTAL 6.8 MG/DL (0.2-1.0); BLOOD UREA NITROGEN 6 mg/dL (7-18); CALCIUM 7.6 MG/DL (8.5-10.1); CARBON DIOXIDE 24 MMOL/L (21-32); CHLORIDE 109 MMOL/L (98-107); CREATININE 0.7 MG/DL (0.55-1.30); POTASSIUM 3.2 MMOL/L (3.5-5.1); SODIUM 142 MMOL/L (136-145)
[2019-02-23 05:26] LABS: BILIRUBIN,DIRECT 5.6 MG/DL (0.0-0.3)
[2019-02-23] MEDS: Piperacillin/Tazobactam 3.375 GM in NS 110 ML IVPB SCH ×3 (05:48→22:32)
--- NOTE | 2019-02-23 06:20 | NUR ---
NURSE NOTES: PATIENT ASLEEP STATUS, NO PAIN OR SOB NOTED AT THIS SHIFT.
--- NOTE | 2019-02-23 07:00 | NUR ---
HAND-OFF: Report given to Isabela MALIK RN.
--- NOTE | 2019-02-23 07:05 | NUR ---
NURSE NOTES: Received patient from ESHA Berrios. Patient sleeping at this time and asking for something to drink. Explained to the patient that he cannot have anything to drink at this time. Patient blood pressure 111/73 on 3mcg/min Levophed. Will continue to monitor blood pressure and titrate per protocol. Patient showing sinus rhythm on the stunt man at 91 at this time. Patient intubated with ETT 8cm size with 24cm at the lip line. Ventilator setting AC 26, tidal volume 500, FiO2 40%, and peep 5. Patient tolerating setting with resp rate of 26 and oxygen saturation 100%. OGT noted that is patent, asymptomatic, and verified with auscultation at this time. Tube feeding jevity 1.2 running at 40mL/hr with no residual at this time. Patient has condom catheter that is intact at this time and draining dark yellow urine. Bladder scan shows 315mL retained urine at this time. Last post void residual was 454mL and 6am. Rectal tube noted with dark green pasty stool. Patient on bilateral soft wrist restraint due to patient being witnessed attempting to pull out ETT and OGT. Patient has right upper arm PICC that is patent, asymptomatic, and intact dressing last changed on 02/20. Patient skin intact apart from scrotal excoriation due to cleaning from frequent bowel movements. right upper back old pink scar noted. Patient has potassium level of 3.2 this morning[address] Will notify Dr Bailon when he rounds on the patient. Bed in low position with bed alarm on and call light in reach.
--- NOTE | 2019-02-23 07:18 | NUR ---
RESPIRATORY NOTE: pt orally intubated with ETT 7.5, placed 24cm at the lip secured via anchor fast. no redness or skin tears visible on facial area. pt on current vent settings with no signs of resp distress. pt slightly tachypneic. vent alarms are set and audible with ambu bag at bedside. will attempt to wean later this morning and cont to monitor.
--- NOTE | 2019-02-23 07:42 | NUR ---
NURSE NOTES: Patient voided 325mL with 293mL post void residual.
[2019-02-23] MEDS: Vasopressin 100 UNITS in NS 95 ML IV SCH (07:57)
[2019-02-23] MEDS: levETIRAcetam 500mg/NS100ml 100 ML IVPB SCH ×2 (08:50→21:10)
[2019-02-23] MEDS: Pantoprazole Inj IVP SCH ×2 (08:50→21:10)
[2019-02-23] MEDS: Spironolactone 25mg tab NG SCH ×3 (08:50→21:10)
[2019-02-23] MEDS: Thiamine 100mg in D5W 55ml IVPB SCH (08:50)
--- NOTE | 2019-02-23 10:02 | NUR ---
NURSE NOTES: Patient voided 300mL and has post void residual 329mL. Addendum: 02/23/19 at 1029 by Debby Escobar RN Blood pressure 110/69 on 3mcg/min Levophed drip. Will continue to monitor blood pressure and titrate Levophed per protocol. Patient showing no sign of acute distress.
--- NOTE | 2019-02-23 10:21 | Nephrology Progress Note ---
Assessment/Plan Problem List: (1) STEFANI (acute kidney injury) Assessment: Cr lower (2) Septic shock (3) Electrolyte and fluid disorder (4) Abnormal LFTs Assessment: fatty liver (5) Hyperbilirubinemia Assessment - STEFANI (acute kidney injury) - Septic shock - Lactic acid acidosis - Abnormal LFTs - Gastrointestinal bleed - Alcohol withdrawal seizure Plan K and Mag and Phos supplement as needed discussed with RN start feeding Hemodynamic support Pressors / Fluids as needed Aim to correct the electrolyte and acid base imbalance monitor renal parameters gastric support switch dilantin to keppra as LFTs rising per orders Subjective ROS Limited/Unobtainable: Yes Objective Objective Last 24 Hour Vital Signs Date Time Temp Pulse Resp B/P (MAP) Pulse Ox O2 Delivery O2 Flow Rate FiO2 02/23/19 09:45 94 27 99/62 (74) 99 02/23/19 09:37 96/65 02/23/19 09:30 94 26 96/65 (75) 97 02/23/19 09:15 94 25 97/64 (75) 95 02/23/19 09:00 96 26 87/54 (65) 100 02/23/19 08:45 96 27 102/71 (81) 96 02/23/19 08:45 102 33 40 02/23/19 08:30 96 25 96/57 (70) 94 02/23/19 08:15 96 27 95/59 (71) 98 02/23/19 08:00 97 02/23/19 08:00 40 02/23/19 08:00 97.6 95 26 97/66 (76) 98 02/23/19 08:00 Mechanical Ventilator 02/23/19 07:45 95 26 100/62 (75) 94 02/23/19 07:30 93 23 109/69 (82) 96 02/23/19 07:16 92 27 40 02/23/19 07:00 93 26 106/75 (85) 99 02/23/19 07:00 106/75 02/23/19 06:30 92 26 101/60 (74) 97 02/23/19 06:00 107/69 02/23/19 06:00 93 30 107/69 (82) 99 02/23/19 05:30 89 28 113/79 (90) 98 02/23/19 05:06 85 28 40 02/23/19 05:00 95 26 116/65 (82) 97 02/23/19 05:00 116/65 02/23/19 04:30 95 34 114/74 (87) 100 02/23/19 04:00 Mechanical Ventilator 02/23/19 04:00 40 02/23/19 04:00 109/68 02/23/19 04:00 98.7 88 30 109/68 (82) 100 02/23/19 03:30 94 33 115/68 (84) 99 02/23/19 03:08 95 02/23/19 03:00 124/96 02/23/19 03:00 96 26 124/78 (93) 96 02/23/19 02:36 89 26 40 02/23/19 02:30 94 26 103/66 (78) 98 02/23/19 02:00 92 26 111/73 (86) 97 02/23/19 01:30 94 26 100/62 (75) 97 02/23/19 01:10 104 38 40 02/23/19 01:00 105 34 113/70 (84) 95 02/23/19 01:00 113/70 02/23/19 00:30 96 29 107/64 (78) 98 02/23/19 00:00 98.5 96 30 100/65 (77) 98 02/23/19 00:00 40 02/23/19 00:00 Mechanical Ventilator 02/23/19 00:00 100/65 02/22/19 23:30 99 34 111/70 (84) 97 02/22/19 23:06 96 02/22/19 23:00 102 36 103/61 (75) 97 02/22/19 23:00 103/61 02/22/19 22:49 111 38 40 02/22/19 22:30 100 31 109/76 (87) 99 02/22/19 22:30 110 109/76 02/22/19 22:00 108 32 109/71 (84) 95 02/22/19 22:00 109/71 02/22/19 21:30 112 37 108/68 (81) 95 02/22/19 21:00 110 34 106/72 (83) 95 02/22/19 21:00 106/72 02/22/19 20:35 108 39 40 02/22/19 20:30 110 36 111/71 (84) 94 7/18/19 20:00 40 7/18/19 20:00 102/62 7/18/19 20:00 98.5 107 34 102/62 (75) 96 7/18/19 20:00 Mechanical Ventilator 1819 19:30 109 39 104/69 (81) 96 7/18/19 19:17 114 7/18/19 19:04 121 35 40 7/18/19 19:00 116 39 115/71 (86) 94 7/18/19 19:00 104/66 7/18/19 18:30 113 39 111/74 (86) 96 7/18/19 18:00 112 38 111/68 (82) 93 7/18/19 18:00 108/80 7/18/19 17:30 108 37 114/64 (81) 96 7/18/19 17:08 106 37 40 7/18/19 17:00 105 36 107/71 (83) 98 7/18/19 17:00 112/85 718/19 16:30 106 35 108/70 (83) 96 7/18/19 16:00 40 7/18/19 16:00 98.7 99 23 110/48 (68) 95 7/18/19 16:00 112/85 7/18/19 16:00 Mechanical Ventilator 18 16:00 97 7/18/19 15:30 100 29 115/52 (73) 97 7/18/19 15:00 97 27 132/57 (82) 97 7/18/19 15:00 127/86 7/18/19 14:55 95 31 40 7/18/19 14:30 94 23 103/54 (70) 96 7/18/19 14:00 94 23 94/44 (61) 96 7/18/19 14:00 117/82 7/18/19 13:30 94 30 105/57 (73) 97 7/18/19 13:00 92/67 7/18/19 13:00 98.7 97 30 102/57 (72) 97 7/18/19 12:49 97 35 40 7/18/19 12:30 98 31 111/53 (72) 96 7/18/19 12:15 102 31 119/54 (75) 97 7/18/19 12:06 100 36 101/47 (65) 95 02/22/19 12:03 103 33 90/49 (63) 92 02/22/19 12:00 Mechanical Ventilator 02/22/19 12:00 40 02/22/19 12:00 101 02/22/19 12:00 113/89 02/22/19 12:00 98.5 100 28 86/38 (54) 96 02/22/19 11:45 99 34 94/60 (71) 96 02/22/19 11:33 99 32 92/58 (69) 97 02/22/19 11:30 98 32 89/58 (68) 96 02/22/19 11:15 100 39 105/63 (77) 98 02/22/19 11:00 98/74 02/22/19 11:00 104 34 109/66 (80) 94 02/22/19 10:56 106 36 40 02/22/19 10:45 97 29 91/58 (69) 99 02/22/19 10:30 102 32 94/65 (75) 98 Intake and Output 02/22/19 02/23/19 19:00 07:00 Intake Total 1483.040 ml 1195.73 ml Output Total 1260 ml 1960 ml Balance 223.040 ml -764.27 ml IV Total 1003.040 ml 665.73 ml Tube Feeding 480 ml 480 ml Other 50 ml Output Urine Total 1210 ml 1860 ml Stool Total 50 ml 100 ml # Voids 1 5 Laboratory Tests 02/22/19 14:05: Arterial Blood pH 7.490H, Arterial Blood Partial Pressure CO2 32.4L, Arterial Blood Partial Pressure O2 99.6, Arterial Blood HCO3 24.2, Arterial Blood Oxygen Saturation 97.2, Arterial Blood Base Excess 1.2, Cesar Test Positive 02/22/19 17:50: White Blood Count 35.1*H, Red Blood Count 2.60L, Hemoglobin 8.3L, Hematocrit 24.3L, Mean Corpuscular Volume 93, Mean Corpuscular Hemoglobin 31.9H, Mean Corpuscular Hemoglobin Concent 34.1, Red Cell Distribution Width 14.4, Platelet Count 325, Mean Platelet Volume 7.4, Neutrophils (%) (Auto) , Lymphocytes (%) ( Auto) , Monocytes (%) (Auto) , Eosinophils (%) (Auto) , Basophils (%) (Auto) , Differential Total Cells Counted 100, Neutrophils % (Manual) 85H, Lymphocytes % (Manual) 7L, Monocytes % (Manual) 4, Eosinophils % (Manual) 1, Basophils % ( Manual) 0, Band Neutrophils 3, Platelet Estimate Adequate, Platelet Morphology Normal, Polychromasia 1+, Anisocytosis 1+, Macrocytosis 1+, Prothrombin Time 15.6H, Prothromb Time International Ratio 1.5H 02/23/19 04:05: White Blood Count 34.9*H, Red Blood Count 2.41L, Hemoglobin 7.7L, Hematocrit 23.1L, Mean Corpuscular Volume 96, Mean Corpuscular Hemoglobin 31.8H, Mean Corpuscular Hemoglobin Concent 33.2, Red Cell Distribution Width 15.1H, Platelet Count 335, Mean Platelet Volume 7.6, Neutrophils (%) (Auto) , Lymphocytes (%) (Auto) , Monocytes (%) (Auto) , Eosinophils (%) (Auto) , Basophils (%) (Auto) , Differential Total Cells Counted 100, Neutrophils % ( Manual) 81H, Lymphocytes % (Manual) 10L, Monocytes % (Manual) 3, Eosinophils % ( Manual) 1, Basophils % (Manual) 0, Band Neutrophils 5, Platelet Estimate Adequate, Platelet Morphology Normal, Polychromasia 1+, Anisocytosis 1+, Nucleated Red Blood Cells 1, Hypochromasia 1+, Sodium Level 142, Potassium Level 3.2L, Chloride Level 109H, Carbon Dioxide Level 24, Anion Gap 9, Blood Urea Nitrogen 6L, Creatinine 0.7, Estimat Glomerular Filtration Rate > 60, Glucose Level 113H, Calcium Level 7.6L, Phosphorus Level 2.3L, Magnesium Level 1.6L, Total Bilirubin 6.8H, Direct Bilirubin 5.6H, Aspartate Amino Transf (AST/ SGOT) 222H, Alanine Aminotransferase (ALT/SGPT) 76, Alkaline Phosphatase 261H, C -Reactive Protein, Quantitative 6.2H, Pro-B-Type Natriuretic Peptide 318H, Total Protein 4.5L, Albumin 1.4L, Globulin 3.1, Albumin/Globulin Ratio 0.5L Height (Feet): 5 Height (Inches): 5.00 Weight (Pounds): 176 General Appearance: no apparent distress Cardiovascular: tachycardia Respiratory/Chest: decreased breath sounds Abdomen: distended Objective no change Scotty Bailon MD Feb 23, 2019 10:21
--- NOTE | 2019-02-23 10:28 | NUR ---
RESPIRATORY NOTE: started to wean pt at 1015 with vent settings of CPAP PS 10. pt in no resp distress at this time, but is slightly tachypneic. RN notified. will cont to monitor.
[2019-02-23] MEDS ORDERED: Potassium Phosphate 30 MM in NS 275 ML IV ONE (10:30)
--- NOTE | 2019-02-23 10:57 | Cardiology Report ---
APPROVED REPORT EKG Measurement Heart [id number] Supraventricular tachycardia Right superior axis deviation Nonspecific ST abnormality Abnormal ECG
[2019-02-23] MEDS: Vancomycin 1.25gm Premix IVPB SCH ×2 (11:03→22:32)
[2019-02-23] MEDS ORDERED: Sterile Water For Inj 1000ml IV ONE (11:21)
[2019-02-23] MEDS ORDERED: Tubing IV Secondary IV ONE ×2 (11:21→16:36)
[2019-02-23] MEDS ORDERED: NS 275ml ONE ×2 (11:21→11:23)
--- NOTE | 2019-02-23 11:26 | NUR ---
NURSE NOTES: Patient respiratory rate increased to high 40's. Patient put back on AC 26, tidal volume 500, FiO2 40%, and PEEP 5.
--- NOTE | 2019-02-23 12:02 | NUR ---
NURSE NOTES: Patient sleeping at this time. Patient lethargic. Patient asked for a beer earlier. Told patient that he cannot drink with the ETT tube and we do not have beer in the hospital. Patient receiving magnesium 4g total IV. The second bag is running at this time. Patient receiving potassium phospate 30mmol at this time. Tube feeding running at 40mL/hr. Condom catheter still in place. HR 93, SpO2 99%, and RR 27. Patient weaned earlier on CPAP setting but failed due to high respiratory rate in the high 40s. Patient voiding with last post void residual 582mL after 300mL void at 11am. Blood pressure 84/52 on 2mcg Levophed drip. Will continue to monitor and titrate per protocol. Patient repositioned and oral care performed at this time.
--- NOTE | 2019-02-23 12:11 | GI Progress Note ---
Assessment/Plan Problems: (1) Coffee ground emesis ICD Codes: K92.0 - Hematemesis SNOMED: 52055737 (2) Episode of confusion ICD Codes: R41.0 - Disorientation, unspecified SNOMED: 84455817 (3) Gastrointestinal bleed ICD Codes: K92.2 - Gastrointestinal hemorrhage, unspecified SNOMED: 05136191 (4) Abnormal LFTs ICD Codes: R94.5 - Abnormal results of liver function studies SNOMED: 817899817 (5) Diarrhea ICD Codes: R19.7 - Diarrhea, unspecified SNOMED: 90124838 (6) Electrolyte and fluid disorder ICD Codes: E87.8 - Other disorders of electrolyte and fluid balance, not elsewhere classified SNOMED: 07897311 (7) Sepsis ICD Codes: A41.9 - Sepsis, unspecified organism SNOMED: 92310500 Status: unchanged Status Narrative Discussed with Dr. Bloom. Assessment/Plan black stools per nurses drop in H&H positive stool ob elevated white count off pressors rising bilirubin, will consider steroids EGD postponed until patient stable. ppi IV Q 12 monitor H&H, prn transfusions IV hydration plus electrolyte correction fu labs follow up ID recs Vit k The patient was seen and examined at bedside and all new and available data was reviewed in the patients chart. I agree with the above findings, impression and plan. (Patient seen earlier today. Signature stamp does not reflect patient encounter time.). - Jones Bloom MD Subjective Subjective limited Objective Last 24 Hour Vital Signs Date Time Temp Pulse Resp B/P (MAP) Pulse Ox O2 Delivery O2 Flow Rate FiO2 02/23/19 10:20 102 27 40 02/23/19 10:15 96 25 110/69 (83) 95 02/23/19 10:00 94 22 92/51 (65) 96 02/23/19 09:45 94 27 99/62 (74) 99 02/23/19 09:37 96/65 02/23/19 09:30 94 26 96/65 (75) 97 02/23/19 09:15 94 25 97/64 (75) 95 02/23/19 09:00 96 26 87/54 (65) 100 02/23/19 08:45 96 27 102/71 (81) 96 02/23/19 08:45 102 33 40 02/23/19 08:30 96 25 96/57 (70) 94 02/23/19 08:15 96 27 95/59 (71) 98 02/23/19 08:00 97 02/23/19 08:00 40 02/23/19 08:00 97.6 95 26 97/66 (76) 98 02/23/19 08:00 Mechanical Ventilator 02/23/19 07:45 95 26 100/62 (75) 94 02/23/19 07:30 93 23 109/69 (82) 96 02/23/19 07:16 92 27 40 02/23/19 07:00 93 26 106/75 (85) 99 02/23/19 07:00 106/75 02/23/19 06:30 92 26 101/60 (74) 97 02/23/19 06:00 107/69 02/23/19 06:00 93 30 107/69 (82) 99 02/23/19 05:30 89 28 113/79 (90) 98 02/23/19 05:06 85 28 40 02/23/19 05:00 95 26 116/65 (82) 97 02/23/19 05:00 116/65 02/23/19 04:30 95 34 114/74 (87) 100 02/23/19 04:00 Mechanical Ventilator 02/23/19 04:00 40 02/23/19 04:00 109/68 02/23/19 04:00 98.7 88 30 109/68 (82) 100 02/23/19 03:30 94 33 115/68 (84) 99 02/23/19 03:08 95 02/23/19 03:00 124/96 02/23/19 03:00 96 26 124/78 (93) 96 02/23/19 02:36 89 26 40 02/23/19 02:30 94 26 103/66 (78) 98 02/23/19 02:00 92 26 111/73 (86) 97 02/23/19 01:30 94 26 100/62 (75) 97 02/23/19 01:10 104 38 40 02/23/19 01:00 105 34 113/70 (84) 95 02/23/19 01:00 113/70 02/23/19 00:30 96 29 107/64 (78) 98 02/23/19 00:00 98.5 96 30 100/65 (77) 98 02/23/19 00:00 40 02/23/19 00:00 Mechanical Ventilator 02/23/19 00:00 100/65 02/22/19 23:30 99 34 111/70 (84) 97 [id number] 23:06 96 02/22/19 23:00 102 36 103/61 (75) 97 02/22/19 23:00 103/61 02/22/19 22:49 111 38 40 02/22/19 22:30 100 31 109/76 (87) 99 [id number] 22:30 110 109/76 02/22/19 22:00 108 32 109/71 (84) 95 02/22/19 22:00 109/71 02/22/19 21:30 112 37 108/68 (81) 95 02/22/19 21:00 110 34 106/72 (83) 95 02/22/19 21:00 106/72 02/22/19 20:35 108 39 40 02/22/19 20:30 110 36 111/71 (84) 94 1819 20:00 40 19 20:00 102/62 19 20:00 98.5 107 34 102/62 (75) 96 19 20:00 Mechanical Ventilator 02/22/19 19:30 109 39 104/69 (81) 96 18/19 19:17 114 /1819 19:04 121 35 40 18/19 19:00 116 39 115/71 (86) 94 1819 19:00 104/66 18/19 18:30 113 39 111/74 (86) 96 18/19 18:00 112 38 111/68 (82) 93 718/19 18:00 108/80 718/19 17:30 108 37 114/64 (81) 96 18/19 17:08 106 37 40 7/18/19 17:00 105 36 107/71 (83) 98 7/18/19 17:00 112/85 718/19 16:30 106 35 108/70 (83) 96 18/19 16:00 40 718/19 16:00 98.7 99 23 110/48 (68) 95 7/18/19 16:00 112/85 02/22/19 16:00 Mechanical Ventilator 02/22/19 16:00 97 02/22/19 15:30 100 29 115/52 (73) 97 02/22/19 15:00 97 27 132/57 (82) 97 02/22/19 15:00 127/86 02/22/19 14:55 95 31 40 02/22/19 14:30 94 23 103/54 (70) 96 02/22/19 14:00 94 23 94/44 (61) 96 02/22/19 14:00 117/82 02/22/19 13:30 94 30 105/57 (73) 97 02/22/19 13:00 92/67 02/22/19 13:00 98.7 97 30 102/57 (72) 97 02/22/19 12:49 97 35 40 02/22/19 12:30 98 31 111/53 (72) 96 02/22/19 12:15 102 31 119/54 (75) 97 Intake and Output 02/22/19 02/23/19 19:00 07:00 Intake Total 1483.040 ml 1195.73 ml Output Total 1260 ml 1960 ml Balance 223.040 ml -764.27 ml IV Total 1003.040 ml 665.73 ml Tube Feeding 480 ml 480 ml Other 50 ml Output Urine Total 1210 ml 1860 ml Stool Total 50 ml 100 ml # Voids 1 5 Laboratory Tests Test 02/22/19 14:05 02/22/19 17:50 02/23/19 04:05 Arterial Blood pH 7.490 (7.350-7.450) Arterial Blood Partial Pressure CO2 32.4 mmHg (35.0-45.0) L Arterial Blood Partial Pressure O2 99.6 mmHg (75.0-100.0) Arterial Blood HCO3 24.2 mmol/L (22.0-26.0) Arterial Blood Oxygen Saturation 97.2 % (95-100) Arterial Blood Base Excess 1.2 (-2-2) Cesar Test Positive White Blood Count 35.1 K/UL (4.8-10.8) *H 34.9 K/UL (4.8-10.8) *H Red Blood Count 2.60 M/UL (4.70-6.10) L 2.41 M/UL (4.70-6.10) L Hemoglobin 8.3 G/DL (14.2-18.0) L 7.7 G/DL (14.2-18.0) L Hematocrit 24.3 % (42.0-52.0) L 23.1 % (42.0-52.0) L Mean Corpuscular Volume 93 FL (80-99) 96 FL (80-99) Mean Corpuscular Hemoglobin 31.9 PG (27.0-31.0) H 31.8 PG (27.0-31.0) H Mean Corpuscular Hemoglobin Concent 34.1 G/DL (32.0-36.0) 33.2 G/DL (32.0-36.0) Red Cell Distribution Width 14.4 % (11.6-14.8) 15.1 % (11.6-14.8) H Platelet Count 325 K/UL (150-450) 335 K/UL (150-450) Mean Platelet Volume 7.4 FL (6.5-10.1) 7.6 FL (6.5-10.1) Neutrophils (%) (Auto) % (45.0-75.0) % (45.0-75.0) Lymphocytes (%) (Auto) % (20.0-45.0) % (20.0-45.0) Monocytes (%) (Auto) % (1.0-10.0) % (1.0-10.0) Eosinophils (%) (Auto) % (0.0-3.0) % (0.0-3.0) Basophils (%) (Auto) % (0.0-2.0) % (0.0-2.0) Differential Total Cells Counted 100 100 Neutrophils % (Manual) 85 % (45-75) H 81 % (45-75) H Lymphocytes % (Manual) 7 % (20-45) L 10 % (20-45) L Monocytes % (Manual) 4 % (1-10) 3 % (1-10) Eosinophils % (Manual) 1 % (0-3) 1 % (0-3) Basophils % (Manual) 0 % (0-2) 0 % (0-2) Band Neutrophils 3 % (0-8) 5 % (0-8) Platelet Estimate Adequate Adequate Platelet Morphology Normal Normal Polychromasia 1+ 1+ Anisocytosis 1+ 1+ Macrocytosis 1+ Prothrombin Time 15.6 SEC (9.30-11.50) H Prothromb Time International Ratio 1.5 (0.9-1.1) H Nucleated Red Blood Cells 1 /100 WBC Hypochromasia 1+ Sodium Level 142 MMOL/L (136-145) Potassium Level 3.2 MMOL/L (3.5-5.1) L Chloride Level 109 MMOL/L (98-107) H Carbon Dioxide Level 24 MMOL/L (21-32) Anion Gap 9 mmol/L (5-15) Blood Urea Nitrogen 6 mg/dL (7-18) L Creatinine 0.7 MG/DL (0.55-1.30) Estimat Glomerular Filtration Rate > 60 mL/min (>60) Glucose Level 113 MG/DL (74-106) H Calcium Level 7.6 MG/DL (8.5-10.1) L Phosphorus Level 2.3 MG/DL (2.5-4.9) L Magnesium Level 1.6 MG/DL (1.8-2.4) L Total Bilirubin 6.8 MG/DL (0.2-1.0) H Direct Bilirubin 5.6 MG/DL (0.0-0.3) H Aspartate Amino Transf (AST/SGOT) 222 U/L (15-37) H Alanine Aminotransferase (ALT/SGPT) 76 U/L (12-78) Alkaline Phosphatase 261 U/L (46-116) H C-Reactive Protein, Quantitative 6.2 mg/dL (0.00-0.90) H Pro-B-Type Natriuretic Peptide 318 pg/mL (0-125) H Total Protein 4.5 G/DL (6.4-8.2) L Albumin 1.4 G/DL (3.4-5.0) L Globulin 3.1 g/dL Albumin/Globulin Ratio 0.5 (1.0-2.7) L Microbiology Date/Time Source Procedure Growth Status 02/22/19 23:55 Stool Clostridium difficile Toxin Assay - Final Complete Height (Feet): 5 Height (Inches): 5.00 Weight (Pounds): 176 General Appearance: no apparent distress Cardiovascular: normal rate Respiratory/Chest: normal breath sounds Juno Naranjo NP Feb 23, 2019 12:11
--- NOTE | 2019-02-23 12:49 | NUR ---
RESPIRATORY NOTE: pt was placed back on AC due to increase in respirations.
--- NOTE | 2019-02-23 14:00 | NUR ---
NURSE NOTES: Patient sister at the bedside. Patient blood pressure 103/58, HR 9, SpO2 97%, and RR 27. Patient showing no sign of acute distress. Patient on 2mcg/min of Levophed at this time. Will continue to monitor blood pressure and titrate Levophed per protocol. Repositioning done at this time.
--- NOTE | 2019-02-23 14:05 | NUR ---
*-* INSURANCE *-* ALL CLINICAL AD REVIEWS HAVE BEEN FAXED TO: VANESSA WATTERS: [place] P- [phone] X [phone]..............REVIEW/CLINICAL
--- NOTE | 2019-02-23 14:08 | Cardiac Electrophysiology PN ---
Assessment/Plan Assessment/Plan 1. Sinus tachycardia up to 170s. No evidence of acute myocardial infarction . Due to sepsis and anemia and alcohol withdrawal. Echo Nl EF 60% 2. Septic shock and E Coli bacteremia , back on Levophed. Is on broad-spectrum IV antibiotics. 3. Troponin leak. Type 2. Repeat level 0.16 and now negative 4. Respiratory failure on the vent. Failed weaning again 5. ETOH withdrawal 6. Seizures with noncompliance. 7. Upper gi bleed. EGD held for high WBC 8. Hematuria, resolved DW RN, Dr Sen and sister Subjective Subjective In ICU on the Vent on Levophed.Sister at bedside. Objective Last 24 Hour Vital Signs Date Time Temp Pulse Resp B/P (MAP) Pulse Ox O2 Delivery O2 Flow Rate FiO2 02/23/19 13:30 94 29 92/57 (69) 97 02/23/19 13:00 92 29 93/60 (71) 98 02/23/19 12:48 94 28 40 02/23/19 12:30 98.3 94 29 103/53 (70) 98 02/23/19 12:00 95 02/23/19 12:00 94 29 84/52 (63) 98 02/23/19 11:30 97 32 96/55 (69) 98 02/23/19 11:00 105 39 107/59 (75) 96 02/23/19 10:30 103 37 112/62 (79) 97 02/23/19 10:20 102 27 40 02/23/19 10:15 96 25 110/69 (83) 95 02/23/19 10:00 94 22 92/51 (65) 96 02/23/19 09:45 94 27 99/62 (74) 99 02/23/19 09:37 96/65 02/23/19 09:30 94 26 96/65 (75) 97 02/23/19 09:15 94 25 97/64 (75) 95 02/23/19 09:00 96 26 87/54 (65) 100 02/23/19 08:45 96 27 102/71 (81) 96 02/23/19 08:45 102 33 40 02/23/19 08:30 96 25 96/57 (70) 94 02/23/19 08:15 96 27 95/59 (71) 98 02/23/19 08:00 97 02/23/19 08:00 40 02/23/19 08:00 97.6 95 26 97/66 (76) 98 02/23/19 08:00 Mechanical Ventilator 02/23/19 07:45 95 26 100/62 (75) 94 02/23/19 07:30 93 23 109/69 (82) 96 02/23/19 07:16 92 27 40 02/23/19 07:00 93 26 106/75 (85) 99 02/23/19 07:00 106/75 02/23/19 06:30 92 26 101/60 (74) 97 02/23/19 06:00 107/69 02/23/19 06:00 93 30 107/69 (82) 99 02/23/19 05:30 89 28 113/79 (90) 98 02/23/19 05:06 85 28 40 02/23/19 05:00 95 26 116/65 (82) 97 02/23/19 05:00 116/65 02/23/19 04:30 95 34 114/74 (87) 100 02/23/19 04:00 Mechanical Ventilator 02/23/19 04:00 40 02/23/19 04:00 109/68 02/23/19 04:00 98.7 88 30 109/68 (82) 100 02/23/19 03:30 94 33 115/68 (84) 99 02/23/19 03:08 95 02/23/19 03:00 124/96 02/23/19 03:00 96 26 124/78 (93) 96 02/23/19 02:36 89 26 40 02/23/19 02:30 94 26 103/66 (78) 98 02/23/19 02:00 92 26 111/73 (86) 97 02/23/19 01:30 94 26 100/62 (75) 97 02/23/19 01:10 104 38 40 02/23/19 01:00 105 34 113/70 (84) 95 02/23/19 01:00 113/70 02/23/19 00:30 96 29 107/64 (78) 98 02/23/19 00:00 98.5 96 30 100/65 (77) 98 02/23/19 00:00 40 02/23/19 00:00 Mechanical Ventilator 02/23/19 00:00 100/65 7/18/19 23:30 99 34 111/70 (84) 97 7/18/19 23:06 96 7/18/19 23:00 102 36 103/61 (75) 97 7/18/19 23:00 103/61 7/18/19 22:49 111 38 40 7/18/19 22:30 100 31 109/76 (87) 99 7/18/19 22:30 110 109/76 7/18/19 22:00 108 32 109/71 (84) 95 7/18/19 22:00 109/71 7/18/19 21:30 112 37 108/68 (81) 95 7/18/19 21:00 110 34 106/72 (83) 95 7/18/19 21:00 106/72 18/19 20:35 108 39 40 7/18/19 20:30 110 36 111/71 (84) 94 7/18/19 20:00 40 7/18/19 20:00 102/62 7/18/19 20:00 98.5 107 34 102/62 (75) 96 7/18/19 20:00 Mechanical Ventilator 18/19 19:30 109 39 104/69 (81) 96 7/18/19 19:17 114 7/18/19 19:04 121 35 40 7/18/19 19:00 116 39 115/71 (86) 94 7/18/19 19:00 104/66 7/18/19 18:30 113 39 111/74 (86) 96 7/18/19 18:00 112 38 111/68 (82) 93 7/18/19 18:00 108/80 7/18/19 17:30 108 37 114/64 (81) 96 7/18/19 17:08 106 37 40 7/18/19 17:00 105 36 107/71 (83) 98 7/18/19 17:00 112/85 7/18/19 16:30 106 35 108/70 (83) 96 7/18/19 16:00 40 7/18/19 16:00 98.7 99 23 110/48 (68) 95 7/18/19 16:00 112/85 7/18/19 16:00 Mechanical Ventilator 18/19 16:00 97 7/18/19 15:30 100 29 115/52 (73) 97 7/18/19 15:00 97 27 132/57 (82) 97 02/22/19 15:00 127/86 02/22/19 14:55 95 31 40 02/22/19 14:30 94 23 103/54 (70) 96 Intake and Output 02/22/19 02/23/19 19:00 07:00 Intake Total 1483.040 ml 1195.73 ml Output Total 1260 ml 1960 ml Balance 223.040 ml -764.27 ml IV Total 1003.040 ml 665.73 ml Tube Feeding 480 ml 480 ml Other 50 ml Output Urine Total 1210 ml 1860 ml Stool Total 50 ml 100 ml # Voids 1 5 Laboratory Tests Test 02/22/19 17:50 02/23/19 04:05 White Blood Count 35.1 K/UL (4.8-10.8) *H 34.9 K/UL (4.8-10.8) *H Red Blood Count 2.60 M/UL (4.70-6.10) L 2.41 M/UL (4.70-6.10) L Hemoglobin 8.3 G/DL (14.2-18.0) L 7.7 G/DL (14.2-18.0) L Hematocrit 24.3 % (42.0-52.0) L 23.1 % (42.0-52.0) L Mean Corpuscular Volume 93 FL (80-99) 96 FL (80-99) Mean Corpuscular Hemoglobin 31.9 PG (27.0-31.0) H 31.8 PG (27.0-31.0) H Mean Corpuscular Hemoglobin Concent 34.1 G/DL (32.0-36.0) 33.2 G/DL (32.0-36.0) Red Cell Distribution Width 14.4 % (11.6-14.8) 15.1 % (11.6-14.8) H Platelet Count 325 K/UL (150-450) 335 K/UL (150-450) Mean Platelet Volume 7.4 FL (6.5-10.1) 7.6 FL (6.5-10.1) Neutrophils (%) (Auto) % (45.0-75.0) % (45.0-75.0) Lymphocytes (%) (Auto) % (20.0-45.0) % (20.0-45.0) Monocytes (%) (Auto) % (1.0-10.0) % (1.0-10.0) Eosinophils (%) (Auto) % (0.0-3.0) % (0.0-3.0) Basophils (%) (Auto) % (0.0-2.0) % (0.0-2.0) Differential Total Cells Counted 100 100 Neutrophils % (Manual) 85 % (45-75) H 81 % (45-75) H Lymphocytes % (Manual) 7 % (20-45) L 10 % (20-45) L Monocytes % (Manual) 4 % (1-10) 3 % (1-10) Eosinophils % (Manual) 1 % (0-3) 1 % (0-3) Basophils % (Manual) 0 % (0-2) 0 % (0-2) Band Neutrophils 3 % (0-8) 5 % (0-8) Platelet Estimate Adequate Adequate Platelet Morphology Normal Normal Polychromasia 1+ 1+ Anisocytosis 1+ 1+ Macrocytosis 1+ Prothrombin Time 15.6 SEC (9.30-11.50) H Prothromb Time International Ratio 1.5 (0.9-1.1) H Nucleated Red Blood Cells 1 /100 WBC Hypochromasia 1+ Sodium Level 142 MMOL/L (136-145) Potassium Level 3.2 MMOL/L (3.5-5.1) L Chloride Level 109 MMOL/L (98-107) H Carbon Dioxide Level 24 MMOL/L (21-32) Anion Gap 9 mmol/L (5-15) Blood Urea Nitrogen 6 mg/dL (7-18) L Creatinine 0.7 MG/DL (0.55-1.30) Estimat Glomerular Filtration Rate > 60 mL/min (>60) Glucose Level 113 MG/DL (74-106) H Calcium Level 7.6 MG/DL (8.5-10.1) L Phosphorus Level 2.3 MG/DL (2.5-4.9) L Magnesium Level 1.6 MG/DL (1.8-2.4) L Total Bilirubin 6.8 MG/DL (0.2-1.0) H Direct Bilirubin 5.6 MG/DL (0.0-0.3) H Aspartate Amino Transf (AST/SGOT) 222 U/L (15-37) H Alanine Aminotransferase (ALT/SGPT) 76 U/L (12-78) Alkaline Phosphatase 261 U/L (46-116) H C-Reactive Protein, Quantitative 6.2 mg/dL (0.00-0.90) H Pro-B-Type Natriuretic Peptide 318 pg/mL (0-125) H Total Protein 4.5 G/DL (6.4-8.2) L Albumin 1.4 G/DL (3.4-5.0) L Globulin 3.1 g/dL Albumin/Globulin Ratio 0.5 (1.0-2.7) L Microbiology Date/Time Source Procedure Growth Status 02/20/19 15:50 Blood Blood Culture - Preliminary NO GROWTH AFTER 48 HOURS Resulted 02/22/19 23:55 Stool Clostridium difficile Toxin Assay - Final Complete 02/20/19 20:20 Stool Clostridium difficile Toxin Assay - Final Complete 02/20/19 16:20 Indwelling Cath Urine Culture - Final NO GROWTH AFTER 48 HOURS Complete Objective HEAD AND NECK: No JVD.Orally intubated with OG tube LUNGS: Decreased breath sounds. CARDIOVASCULAR: Regular S1 and S2 with no gallop or murmur. ABDOMEN: Soft. EXTREMITIES: No pitting edema. Fidencio Trevino MD Feb 23, 2019 14:08
--- NOTE | 2019-02-23 14:47 | General Progress Note ---
Assessment/Plan Status: not improved, unchanged Assessment/Plan: Assessment/Plan Status: doing well, stable Status Narrative Assessment/Plan: 54 year old male with pMH of seizure disorder and etoh abuse admitted for seizures 2/2 non-compliance #severe septic shock likely 2/2 UTI #Gram negative bacteremia, now resolved by surveillance follow up blood culture #Acute respiratory failure requiting intubation -Vanc and Zosyn - gentamicin - Fluconazole per ID - Re culture ordered due to severe increase in the WBC from 15 to 26 to 29 thousand of unclear etiology - Hematology consult noted to be due to sepsis. - CBC serial. - CT 02/18 with atelectasis primarily - Diuresis started and good response -ID consult appreciated - Immunoglobulin and hepatitis panel. PENDING -f/u cultures -cont ICU care -intubated and mild sedation. He follows commands well. FAILED weaning trial. -vent management per pulmonary -wean as tolerated -Titrate pressors to goal map >65 -abg prn - Reviewed CT chest/abd/pel #Lactic acidosis -2/2 severe shock/ poss abd source/ seizures - 2 D Echo on 02/16 with EF 65%. Discussed with cardiology and etiology likely sepsis and not cardiogenic -CTM -Fluid boluses completed. -Cont mIVF #Coagulopathy # Thrombocytopenia - 40,000 stable Monitor. No active bleeding toay. - Hematology consult with Dr. Johnston appreciated. Flow cytometry pending. -likely 2/2 hepatic injury 2/2 shock - Consumption coagulopathy. - Consider platelet transfusion if LESS than 30K with urine blood tinge color. #Coffee ground emesis likely in setting of GI bleed -H/H trending down. Monitor -GI consult appreciated -Plan for EGD once stable. Cancelled until the patient is hemodynamically more stable, OFF pressors transition and now back on low dose LEVOPHED 3 mcg - -surgery consult appreciated #Seizures 2/2 noncomplaint with AED -s/p phenytoin load in ED -Cont Phenytoin -Neurology consult appreciated -pending EEG - no seizures noted in last 24 hours -Ativan PRN for seizures -NPO -Seizure precautions #Hypokalemia - Replete as needed #hypophosphatemia - Repleted. #Hypomagnesemia -repleted -CTM # Urethral hemorrhage and clot evacuation - Discussed with Dr. Matta over the phone and bleeding stopped spontaneously, No formal urology consult for now in place. - If recurrent hemorrhage will address. - H/H and INR stat today. - Consider PRBC and Platelets if Hb < 8 or Plt < 30 K # Urinary retention PVR > 300 cc needs Aguilar placement today. D/w RN Code: Full Subjective Allergies: Coded Allergies: No Known Allergies (Unverified , 02/10/15) All Systems: reviewed and negative except above Objective Last 24 Hour Vital Signs Date Time Temp Pulse Resp B/P (MAP) Pulse Ox O2 Delivery O2 Flow Rate FiO2 02/23/19 14:32 91 30 40 02/23/19 13:30 94 29 92/57 (69) 97 02/23/19 13:00 92 29 93/60 (71) 98 02/23/19 12:48 94 28 40 02/23/19 12:30 98.3 94 29 103/53 (70) 98 02/23/19 12:00 95 02/23/19 12:00 94 29 84/52 (63) 98 02/23/19 11:30 97 32 96/55 (69) 98 02/23/19 11:00 105 39 107/59 (75) 96 02/23/19 10:30 103 37 112/62 (79) 97 02/23/19 10:20 102 27 40 02/23/19 10:15 96 25 110/69 (83) 95 02/23/19 10:00 94 22 92/51 (65) 96 02/23/19 09:45 94 27 99/62 (74) 99 02/23/19 09:37 96/65 02/23/19 09:30 94 26 96/65 (75) 97 02/23/19 09:15 94 25 97/64 (75) 95 02/23/19 09:00 96 26 87/54 (65) 100 02/23/19 08:45 96 27 102/71 (81) 96 02/23/19 08:45 102 33 40 02/23/19 08:30 96 25 96/57 (70) 94 02/23/19 08:15 96 27 95/59 (71) 98 02/23/19 08:00 97 02/23/19 08:00 40 02/23/19 08:00 97.6 95 26 97/66 (76) 98 02/23/19 08:00 Mechanical Ventilator 02/23/19 07:45 95 26 100/62 (75) 94 02/23/19 07:30 93 23 109/69 (82) 96 02/23/19 07:16 92 27 40 02/23/19 07:00 93 26 106/75 (85) 99 02/23/19 07:00 106/75 02/23/19 06:30 92 26 101/60 (74) 97 02/23/19 06:00 107/69 02/23/19 06:00 93 30 107/69 (82) 99 02/23/19 05:30 89 28 113/79 (90) 98 02/23/19 05:06 85 28 40 02/23/19 05:00 95 26 116/65 (82) 97 02/23/19 05:00 116/65 02/23/19 04:30 95 34 114/74 (87) 100 02/23/19 04:00 Mechanical Ventilator 02/23/19 04:00 40 02/23/19 04:00 109/68 02/23/19 04:00 98.7 88 30 109/68 (82) 100 02/23/19 03:30 94 33 115/68 (84) 99 02/23/19 03:08 95 02/23/19 03:00 124/96 02/23/19 03:00 96 26 124/78 (93) 96 02/23/19 02:36 89 26 40 02/23/19 02:30 94 26 103/66 (78) 98 02/23/19 02:00 92 26 111/73 (86) 97 02/23/19 01:30 94 26 100/62 (75) 97 02/23/19 01:10 104 38 40 02/23/19 01:00 105 34 113/70 (84) 95 02/23/19 01:00 113/70 02/23/19 00:30 96 29 107/64 (78) 98 02/23/19 00:00 98.5 96 30 100/65 (77) 98 02/23/19 00:00 40 02/23/19 00:00 Mechanical Ventilator 02/23/19 00:00 100/65 02/22/19 23:30 99 34 111/70 (84) 97 02/22/19 23:06 96 02/22/19 23:00 102 36 103/61 (75) 97 7/18/19 23:00 103/61 7/18/19 22:49 111 38 40 7/18/19 22:30 100 31 109/76 (87) 99 7/18/19 22:30 110 109/76 7/18/19 22:00 108 32 109/71 (84) 95 7/18/19 22:00 109/71 7/18/19 21:30 112 37 108/68 (81) 95 7/18/19 21:00 110 34 106/72 (83) 95 7/18/19 21:00 106/72 718/19 20:35 108 39 40 7/18/19 20:30 110 36 111/71 (84) 94 7/18/19 20:00 40 7/18/19 20:00 102/62 718/19 20:00 98.5 107 34 102/62 (75) 96 7/18/19 20:00 Mechanical Ventilator 18 19:30 109 39 104/69 (81) 96 718/19 19:17 114 /18/19 19:04 121 35 40 7/18/19 19:00 116 39 115/71 (86) 94 7/18/19 19:00 104/66 7/18/19 18:30 113 39 111/74 (86) 96 7/18/19 18:00 112 38 111/68 (82) 93 7/18/19 18:00 108/80 7/18/19 17:30 108 37 114/64 (81) 96 718/19 17:08 106 37 40 7/18/19 17:00 105 36 107/71 (83) 98 7/18/19 17:00 112/85 718/19 16:30 106 35 108/70 (83) 96 7/18/19 16:00 40 7/18/19 16:00 98.7 99 23 110/48 (68) 95 7/18/19 16:00 112/85 718/19 16:00 Mechanical Ventilator 18/19 16:00 97 7/18/19 15:30 100 29 115/52 (73) 97 7/18/19 15:00 97 27 132/57 (82) 97 7/18/19 15:00 127/86 7/18/19 14:55 95 31 40 Intake and Output 02/22/19 02/23/19 19:00 07:00 Intake Total 1483.040 ml 1195.73 ml Output Total 1260 ml 1960 ml Balance 223.040 ml -764.27 ml IV Total 1003.040 ml 665.73 ml Tube Feeding 480 ml 480 ml Other 50 ml Output Urine Total 1210 ml 1860 ml Stool Total 50 ml 100 ml # Voids 1 5 Laboratory Tests 02/22/19 17:50: White Blood Count 35.1*H, Red Blood Count 2.60L, Hemoglobin 8.3L, Hematocrit 24.3L, Mean Corpuscular Volume 93, Mean Corpuscular Hemoglobin 31.9H, Mean Corpuscular Hemoglobin Concent 34.1, Red Cell Distribution Width 14.4, Platelet Count 325, Mean Platelet Volume 7.4, Neutrophils (%) (Auto) , Lymphocytes (%) ( Auto) , Monocytes (%) (Auto) , Eosinophils (%) (Auto) , Basophils (%) (Auto) , Differential Total Cells Counted 100, Neutrophils % (Manual) 85H, Lymphocytes % (Manual) 7L, Monocytes % (Manual) 4, Eosinophils % (Manual) 1, Basophils % ( Manual) 0, Band Neutrophils 3, Platelet Estimate Adequate, Platelet Morphology Normal, Polychromasia 1+, Anisocytosis 1+, Macrocytosis 1+, Prothrombin Time 15.6H, Prothromb Time International Ratio 1.5H 02/23/19 04:05: White Blood Count 34.9*H, Red Blood Count 2.41L, Hemoglobin 7.7L, Hematocrit 23.1L, Mean Corpuscular Volume 96, Mean Corpuscular Hemoglobin 31.8H, Mean Corpuscular Hemoglobin Concent 33.2, Red Cell Distribution Width 15.1H, Platelet Count 335, Mean Platelet Volume 7.6, Neutrophils (%) (Auto) , Lymphocytes (%) (Auto) , Monocytes (%) (Auto) , Eosinophils (%) (Auto) , Basophils (%) (Auto) , Differential Total Cells Counted 100, Neutrophils % ( Manual) 81H, Lymphocytes % (Manual) 10L, Monocytes % (Manual) 3, Eosinophils % ( Manual) 1, Basophils % (Manual) 0, Band Neutrophils 5, Platelet Estimate Adequate, Platelet Morphology Normal, Polychromasia 1+, Anisocytosis 1+, Nucleated Red Blood Cells 1, Hypochromasia 1+, Sodium Level 142, Potassium Level 3.2L, Chloride Level 109H, Carbon Dioxide Level 24, Anion Gap 9, Blood Urea Nitrogen 6L, Creatinine 0.7, Estimat Glomerular Filtration Rate > 60, Glucose Level 113H, Calcium Level 7.6L, Phosphorus Level 2.3L, Magnesium Level 1.6L, Total Bilirubin 6.8H, Direct Bilirubin 5.6H, Aspartate Amino Transf (AST/ SGOT) 222H, Alanine Aminotransferase (ALT/SGPT) 76, Alkaline Phosphatase 261H, C -Reactive Protein, Quantitative 6.2H, Pro-B-Type Natriuretic Peptide 318H, Total Protein 4.5L, Albumin 1.4L, Globulin 3.1, Albumin/Globulin Ratio 0.5L Height (Feet): 5 Height (Inches): 5.00 Weight (Pounds): 176 General Appearance: moderate distress EENT: PERRL/EOMI Cardiovascular: normal peripheral pulses, normal rate Abdomen: normal bowel sounds Neurologic: cell preparer II-XII grossly normal Skin: normal pigmentation Roberto Sen MD Feb 23, 2019 14:47
--- NOTE | 2019-02-23 15:18 | Surgery Progress Note ---
Surgery Progress Note Subjective Procedure Performed left femoral central venous catheter insertion Additional Comments weaning of pressors sister at bedside no blood at penis today Objective Last 24 Hour Vital Signs Date Time Temp Pulse Resp B/P (MAP) Pulse Ox O2 Delivery O2 Flow Rate FiO2 02/23/19 14:32 91 30 40 02/23/19 13:30 94 29 92/57 (69) 97 02/23/19 13:00 92 29 93/60 (71) 98 02/23/19 12:48 94 28 40 02/23/19 12:30 98.3 94 29 103/53 (70) 98 02/23/19 12:00 95 02/23/19 12:00 94 29 84/52 (63) 98 02/23/19 11:30 97 32 96/55 (69) 98 02/23/19 11:00 105 39 107/59 (75) 96 02/23/19 10:30 103 37 112/62 (79) 97 02/23/19 10:20 102 27 40 02/23/19 10:15 96 25 110/69 (83) 95 02/23/19 10:00 94 22 92/51 (65) 96 02/23/19 09:45 94 27 99/62 (74) 99 02/23/19 09:37 96/65 02/23/19 09:30 94 26 96/65 (75) 97 02/23/19 09:15 94 25 97/64 (75) 95 02/23/19 09:00 96 26 87/54 (65) 100 02/23/19 08:45 96 27 102/71 (81) 96 02/23/19 08:45 102 33 40 02/23/19 08:30 96 25 96/57 (70) 94 02/23/19 08:15 96 27 95/59 (71) 98 02/23/19 08:00 97 02/23/19 08:00 40 02/23/19 08:00 97.6 95 26 97/66 (76) 98 02/23/19 08:00 Mechanical Ventilator 02/23/19 07:45 95 26 100/62 (75) 94 02/23/19 07:30 93 23 109/69 (82) 96 02/23/19 07:16 92 27 40 02/23/19 07:00 93 26 106/75 (85) 99 02/23/19 07:00 106/75 02/23/19 06:30 92 26 101/60 (74) 97 02/23/19 06:00 107/69 02/23/19 06:00 93 30 107/69 (82) 99 02/23/19 05:30 89 28 113/79 (90) 98 02/23/19 05:06 85 28 40 02/23/19 05:00 95 26 116/65 (82) 97 02/23/19 05:00 116/65 02/23/19 04:30 95 34 114/74 (87) 100 02/23/19 04:00 Mechanical Ventilator 02/23/19 04:00 40 02/23/19 04:00 109/68 02/23/19 04:00 98.7 88 30 109/68 (82) 100 02/23/19 03:30 94 33 115/68 (84) 99 02/23/19 03:08 95 02/23/19 03:00 124/96 02/23/19 03:00 96 26 124/78 (93) 96 02/23/19 02:36 89 26 40 02/23/19 02:30 94 26 103/66 (78) 98 02/23/19 02:00 92 26 111/73 (86) 97 02/23/19 01:30 94 26 100/62 (75) 97 02/23/19 01:10 104 38 40 02/23/19 01:00 105 34 113/70 (84) 95 02/23/19 01:00 113/70 02/23/19 00:30 96 29 107/64 (78) 98 02/23/19 00:00 98.5 96 30 100/65 (77) 98 02/23/19 00:00 40 02/23/19 00:00 Mechanical Ventilator 02/23/19 00:00 100/65 02/22/19 23:30 99 34 111/70 (84) 97 02/22/19 23:06 96 02/22/19 23:00 102 36 103/61 (75) 97 02/22/19 23:00 103/61 02/22/19 22:49 111 38 40 02/22/19 22:30 100 31 109/76 (87) 99 02/22/19 22:30 110 109/76 7/18/19 22:00 108 32 109/71 (84) 95 19 22:00 109/71 19 21:30 112 37 108/68 (81) 95 02/22/19 21:00 110 34 106/72 (83) 95 02/22/19 21:00 106/72 02/22/19 20:35 108 39 40 18 20:30 110 36 111/71 (84) 94 02/22/19 20:00 40 02/22/19 20:00 102/62 02/22/19 20:00 98.5 107 34 102/62 (75) 96 02/22/19 20:00 Mechanical Ventilator 02/22/19 19:30 109 39 104/69 (81) 96 02/22/19 19:17 114 02/22/19 19:04 121 35 40 02/22/19 19:00 116 39 115/71 (86) 94 02/22/19 19:00 104/66 02/22/19 18:30 113 39 111/74 (86) 96 02/22/19 18:00 112 38 111/68 (82) 93 19 18:00 108/80 02/22/19 17:30 108 37 114/64 (81) 96 02/22/19 17:08 106 37 40 02/22/19 17:00 105 36 107/71 (83) 98 19 17:00 112/85 02/22/19 16:30 106 35 108/70 (83) 96 02/22/19 16:00 40 02/22/19 16:00 98.7 99 23 110/48 (68) 95 02/22/19 16:00 112/85 19 16:00 Mechanical Ventilator 02/22/19 16:00 97 02/22/19 15:30 100 29 115/52 (73) 97 I&O Intake and Output 02/22/19 02/23/19 19:00 07:00 Intake Total 1483.040 ml 1195.73 ml Output Total 1260 ml 1960 ml Balance 223.040 ml -764.27 ml IV Total 1003.040 ml 665.73 ml Tube Feeding 480 ml 480 ml Other 50 ml Output Urine Total 1210 ml 1860 ml Stool Total 50 ml 100 ml # Voids 1 5 Cardiovascular: RSR Respiratory: clear Abdomen: soft, present bowel sounds, non-distended Extremities: no cyanosis, other Laboratory Tests Test 02/22/19 17:50 02/23/19 04:05 White Blood Count 35.1 K/UL (4.8-10.8) *H 34.9 K/UL (4.8-10.8) *H Red Blood Count 2.60 M/UL (4.70-6.10) L 2.41 M/UL (4.70-6.10) L Hemoglobin 8.3 G/DL (14.2-18.0) L 7.7 G/DL (14.2-18.0) L Hematocrit 24.3 % (42.0-52.0) L 23.1 % (42.0-52.0) L Mean Corpuscular Volume 93 FL (80-99) 96 FL (80-99) Mean Corpuscular Hemoglobin 31.9 PG (27.0-31.0) H 31.8 PG (27.0-31.0) H Mean Corpuscular Hemoglobin Concent 34.1 G/DL (32.0-36.0) 33.2 G/DL (32.0-36.0) Red Cell Distribution Width 14.4 % (11.6-14.8) 15.1 % (11.6-14.8) H Platelet Count 325 K/UL (150-450) 335 K/UL (150-450) Mean Platelet Volume 7.4 FL (6.5-10.1) 7.6 FL (6.5-10.1) Neutrophils (%) (Auto) % (45.0-75.0) % (45.0-75.0) Lymphocytes (%) (Auto) % (20.0-45.0) % (20.0-45.0) Monocytes (%) (Auto) % (1.0-10.0) % (1.0-10.0) Eosinophils (%) (Auto) % (0.0-3.0) % (0.0-3.0) Basophils (%) (Auto) % (0.0-2.0) % (0.0-2.0) Differential Total Cells Counted 100 100 Neutrophils % (Manual) 85 % (45-75) H 81 % (45-75) H Lymphocytes % (Manual) 7 % (20-45) L 10 % (20-45) L Monocytes % (Manual) 4 % (1-10) 3 % (1-10) Eosinophils % (Manual) 1 % (0-3) 1 % (0-3) Basophils % (Manual) 0 % (0-2) 0 % (0-2) Band Neutrophils 3 % (0-8) 5 % (0-8) Platelet Estimate Adequate Adequate Platelet Morphology Normal Normal Polychromasia 1+ 1+ Anisocytosis 1+ 1+ Macrocytosis 1+ Prothrombin Time 15.6 SEC (9.30-11.50) H Prothromb Time International Ratio 1.5 (0.9-1.1) H Nucleated Red Blood Cells 1 /100 WBC Hypochromasia 1+ Sodium Level 142 MMOL/L (136-145) Potassium Level 3.2 MMOL/L (3.5-5.1) L Chloride Level 109 MMOL/L (98-107) H Carbon Dioxide Level 24 MMOL/L (21-32) Anion Gap 9 mmol/L (5-15) Blood Urea Nitrogen 6 mg/dL (7-18) L Creatinine 0.7 MG/DL (0.55-1.30) Estimat Glomerular Filtration Rate > 60 mL/min (>60) Glucose Level 113 MG/DL (74-106) H Calcium Level 7.6 MG/DL (8.5-10.1) L Phosphorus Level 2.3 MG/DL (2.5-4.9) L Magnesium Level 1.6 MG/DL (1.8-2.4) L Total Bilirubin 6.8 MG/DL (0.2-1.0) H Direct Bilirubin 5.6 MG/DL (0.0-0.3) H Aspartate Amino Transf (AST/SGOT) 222 U/L (15-37) H Alanine Aminotransferase (ALT/SGPT) 76 U/L (12-78) Alkaline Phosphatase 261 U/L (46-116) H C-Reactive Protein, Quantitative 6.2 mg/dL (0.00-0.90) H Pro-B-Type Natriuretic Peptide 318 pg/mL (0-125) H Total Protein 4.5 G/DL (6.4-8.2) L Albumin 1.4 G/DL (3.4-5.0) L Globulin 3.1 g/dL Albumin/Globulin Ratio 0.5 (1.0-2.7) L Plan Problems: (1) Non-compliance Assessment & Plan: Noncompliance with seizure medication with known history of seizures Now had seizure Appreciate neurology input (2) Electrolyte and fluid disorder Assessment & Plan: Likely due to EtOH use and dehydration IV hydration Trend labs (3) Fever (4) Oral thrush (5) Diarrhea (6) Aspiration pneumonia (7) Seizure disorder (8) Tachycardia (9) Altered mental status (10) Alcohol withdrawal seizure (11) Alcohol withdrawal seizure (12) Episode of confusion (13) Coffee ground emesis (14) Gastrointestinal bleed Assessment & Plan: Patient on admission identified to have maroon-colored stool and coffee-ground emesis. Labs noted mild anemia with H&H trending down. No acute active bleed noted but given patient's history high risk for potential ulcers. PPI Appreciate GI input considerations for EGD once stable No evidence of pulmonary embolus, aortic dissection or aneurysm. Posterior basilar consolidation suspicious for pneumonia. Correlate clinically. Trace bilateral pleural effusions. Possible enterocolitis as described above. Please correlate clinically. Mild ascites Fatty liver Cholelithiasis with wall thickening. Cholecystitis not excluded. Small right inguinal hernia containing fat Extensive breathing motion artifact limiting evaluation. We will follow with recommendations thank you (15) Sinus tachycardia (16) Septic shock (17) Sepsis Assessment & Plan: Patient septic leukocytosis improved today lactic acidosis improving anemia renal function declining electrolyte disturbance US noted on pressors now but weaning on IV abx intubated on vent support cont with aggressive resuscitation US noted again. liver decompensated delgado wean pressors (18) Lactic acid acidosis (19) STEFANI (acute kidney injury) (20) Abnormal LFTs (21) High anion gap metabolic acidosis Juanpablo Marcus Feb 23, 2019 15:18
--- NOTE | 2019-02-23 15:23 | NUR ---
CASE MANAGEMENT:REVIEW 02/23/19 SI: SEPTIC SHOCK. ACUTE RESPIRATORY FAILURE 98.3 94 29 103/53 98% ON VENT SUPPORT W/40% FIO2 WBC+34.9 H/H-7.7/23.1 IS: IV K-PHOS X1 IV DIFLUCAN Q24 IV VANCOMYCIN Q12 IV KEPPRA Q12 IV ZOSYN Q8HRS ALDACTONE NG Q12 LEVOPHED GTT : ICU STATUS
--- NOTE | 2019-02-23 16:04 | NUR ---
NURSE NOTES: Patient sleeping at this time. Patient remains lethargic. Magnesium 4g infused. Potassium phosphorous 30mmol still running. Tube feeding running at 40mL/hr. Condom catheter still in place. Patient has post void residuals around 300-500mL. Last void at 1340 with 300mL out and 339mL residual. HR 90, SpO2 99%, and RR 23. Patient stable on ventilator setting of AC 26, tidal volume 500, FiO2 40%, and PEEP 5. Blood pressure 111/77 on 2mcg Levophed drip. Will continue to monitor and titrate per protocol. Patient repositioned and oral care performed at this time.
--- NOTE | 2019-02-23 16:16 | Hematology/Onc Progress Note ---
Assessment/Plan Assessment/Plan # Bicytopenia with anemia likely due to Gi bleed -- stool occult blood +, requires further eval with gi, also with etoh withdrawal, also can be related to meds/abx --> anemia panel has been reviewed and results are acd --> peripheral smear reviewed and not noted to have blasts --> wbc is better at this time, could be related to infection, gram neg --> started on folate 1mg po daily (LOW FOLATE) --> Flow cytometry shows no evidence of b-lymphoproliferative disorder --> Hep panel negative # Anemia of chronic disease, per anemia panel --> hgb trend 8-->7-->8-->9-->8.6-->7.7 --> may require gi eval when more stable with scope (EGD) --> transfuse if hb <7 --> cont folic acid # Sinus tachycardia up to 170s. No evidence of acute myocardial infarction . --> This is likely due to sepsis and anemia, alcohol withdrawal --> Echo Nl EF 60% # Leukocytosis due to Septic shock and severe Lactic acidosis on Levophed and broad-spectrum IV antibiotics. --> per ID care, continue abx --> pressor as needed --> vanc/zosyn, flucon --> Hgb trend: 34.9 # Troponin leak, type 2. --> per cards # Respiratory failure on the vent. Failed weaning --> sbt trial per pulm --> on vent # ETOH withdrawal # Seizures with noncompliance Greatly appreciate consultation. Subjective ROS Limited/Unobtainable: Yes Constitutional: Reports: malaise Hematologic/Lymphatic: Reports: anemia Allergies: Coded Allergies: No Known Allergies (Unverified , 02/10/15) Subjective 02/20: intubated, counts are better, on vent, sbt in process, no f/c, mag low 02/21: endoscopy on hold at this time, bloody stool, plt better, on abx 02/22: no events reported, remains intubated, no bleeding, plt better, k is low, repleted\ 02/23: remains in icu, letargic, flow cytometry showed no evidence of b- lymphoproliferative disorder, c-diif neagtive, labs reviewed, remains on levo, on cpap Objective Objective Current Medications Medications (Trade) Dose Ordered Sig/Tonny Route PRN Reason Start Time Stop Time Status Last Admin Dose Admin Acetaminophen (Tylenol) 650 mg Q4H PRN ORAL Mild Pain (Pain Scale 1-3) 02/16/19 00:30 03/16/19 12:29 02/17/19 04:53 Acetaminophen (Tylenol) 650 mg Q4H PRN RECTAL Mild Pain (Pain Scale 1-3) 02/16/19 04:30 03/18/19 04:29 02/16/19 04:31 Bisacodyl (Dulcolax) 10 mg HSPRN PRN RECTAL Constipation 02/16/19 21:00 03/16/19 20:59 Chlorhexidine Gluconate (Stephanie-Hex 2%) 1 applic DAILY@2000 TOPIC 02/19/19 20:00 03/21/19 19:59 02/22/19 19:54 Dextrose (Dextrose 50%) 25 ml Q30M PRN IV Hypoglycemia 02/15/19 22:15 03/16/19 16:14 Dextrose (Dextrose 50%) 50 ml Q30M PRN IV Hypoglycemia 02/15/19 22:15 03/16/19 16:14 02/16/19 06:32 Fluconazole/ Sodium Chloride 200 ml @ 200 mls/hr Q24H IV 02/20/19 15:00 02/27/19 14:59 02/23/19 15:43 Folic Acid (Folate) 1 mg DAILY ORAL 02/22/19 09:00 03/24/19 08:59 02/23/19 08:50 Levetiracetam 100 ml @ 400 mls/hr Q12HR IVPB 02/19/19 09:00 03/21/19 08:59 02/23/19 08:50 Norepinephrine Bitartrate 8 mg/ Dextrose 508 ml @ 0 mls/hr Q24H IV 02/16/19 09:30 03/18/19 09:29 02/23/19 09:37 Ondansetron HCl (Zofran) 4 mg Q6H PRN IVP Nausea & Vomiting 02/16/19 01:00 03/16/19 12:59 Pantoprazole (Protonix) 40 mg EVERY 12 HOURS IVP 02/16/19 09:00 03/18/19 08:59 02/23/19 08:50 Phenylephrine HCl 50 mg/Dextrose 250 ml @ 0 mls/hr Q24H IV 02/16/19 22:30 03/18/19 22:29 Piperacillin Sod/ Tazobactam Sod 3.375 gm/Sodium Chloride 110 ml @ 27.5 mls/hr Q8HR IVPB 02/18/19 14:00 02/25/19 13:59 02/23/19 13:45 Potassium Phosphate 30 mm/ Sodium Chloride 285 ml @ 47.5 mls/hr ONCE ONCE IV 02/23/19 10:30 02/23/19 16:29 02/23/19 11:03 Spironolactone (Aldactone) 25 mg EVERY 12 HOURS NG 02/22/19 21:00 03/24/19 20:59 02/23/19 08:50 Thiamine HCl 100 mg/Dextrose 56 ml @ 112 mls/hr Q24H IVPB 02/16/19 09:00 03/18/19 08:59 02/23/19 08:50 Vancomycin HCl (Vanco rx to dose) 1 ea DAILY PRN MISC Per rx protocol 02/16/19 09:00 03/17/19 12:59 Vancomycin HCl/ Dextrose 275 ml @ 183.333 mls/hr Q12HR@1000,2200 IVPB 02/20/19 10:00 02/25/19 09:59 02/23/19 11:03 Vasopressin 100 units/Sodium Chloride 100 ml @ 0 mls/hr Q24H IV 02/16/19 08:15 03/18/19 08:14 02/16/19 08:15 Last 24 Hour Vital Signs Date Time Temp Pulse Resp B/P (MAP) Pulse Ox O2 Delivery O2 Flow Rate FiO2 02/23/19 15:30 90 26 92/56 (68) 97 02/23/19 15:00 98/59 02/23/19 15:00 95 26 102/61 (75) 97 02/23/19 14:32 91 30 40 02/23/19 14:30 102 20 102/51 (68) 97 02/23/19 14:00 103/58 02/23/19 14:00 93 29 96/56 (69) 97 02/23/19 13:30 94 29 92/57 (69) 97 02/23/19 13:00 92 29 93/60 (71) 98 02/23/19 13:00 93/60 02/23/19 12:48 94 28 40 02/23/19 12:30 98.3 94 29 103/53 (70) 98 02/23/19 12:00 84/52 02/23/19 12:00 Mechanical Ventilator 02/23/19 12:00 95 02/23/19 12:00 94 29 84/52 (63) 98 02/23/19 12:00 40 02/23/19 11:30 97 32 96/55 (69) 98 02/23/19 11:03 107/59 02/23/19 11:00 105 39 107/59 (75) 96 02/23/19 10:30 110/69 02/23/19 10:30 103 37 112/62 (79) 97 02/23/19 10:20 102 27 40 02/23/19 10:15 96 25 110/69 (83) 95 02/23/19 10:00 110/69 02/23/19 10:00 94 22 92/51 (65) 96 02/23/19 09:45 94 27 99/62 (74) 99 02/23/19 09:37 96/65 02/23/19 09:30 94 26 96/65 (75) 97 02/23/19 09:15 94 25 97/64 (75) 95 02/23/19 09:00 96 26 87/54 (65) 100 02/23/19 09:00 97/64 02/23/19 08:45 96 27 102/71 (81) 96 02/23/19 08:45 102 33 40 02/23/19 08:30 96 25 96/57 (70) 94 02/23/19 08:15 96 27 95/59 (71) 98 02/23/19 08:00 97 02/23/19 08:00 40 02/23/19 08:00 95/59 02/23/19 08:00 97.6 95 26 97/66 (76) 98 02/23/19 08:00 Mechanical Ventilator 02/23/19 07:45 95 26 100/62 (75) 94 02/23/19 07:30 93 23 109/69 (82) 96 02/23/19 07:16 92 27 40 02/23/19 07:00 93 26 106/75 (85) 99 02/23/19 07:00 106/75 02/23/19 06:30 92 26 101/60 (74) 97 02/23/19 06:00 107/69 02/23/19 06:00 93 30 107/69 (82) 99 02/23/19 05:30 89 28 113/79 (90) 98 02/23/19 05:06 85 28 40 02/23/19 05:00 95 26 116/65 (82) 97 02/23/19 05:00 116/65 02/23/19 04:30 95 34 114/74 (87) 100 02/23/19 04:00 Mechanical Ventilator 02/23/19 04:00 40 02/23/19 04:00 109/68 02/23/19 04:00 98.7 88 30 109/68 (82) 100 02/23/19 03:30 94 33 115/68 (84) 99 02/23/19 03:08 95 02/23/19 03:00 124/96 02/23/19 03:00 96 26 124/78 (93) 96 02/23/19 02:36 89 26 40 02/23/19 02:30 94 26 103/66 (78) 98 02/23/19 02:00 92 26 111/73 (86) 97 02/23/19 01:30 94 26 100/62 (75) 97 02/23/19 01:10 104 38 40 02/23/19 01:00 105 34 113/70 (84) 95 02/23/19 01:00 113/70 02/23/19 00:30 96 29 107/64 (78) 98 02/23/19 00:00 98.5 96 30 100/65 (77) 98 02/23/19 00:00 40 02/23/19 00:00 Mechanical Ventilator 02/23/19 00:00 100/65 02/22/19 23:30 99 34 111/70 (84) 97 02/22/19 23:06 96 02/22/19 23:00 102 36 103/61 (75) 97 02/22/19 23:00 103/61 02/22/19 22:49 111 38 40 02/22/19 22:30 100 31 109/76 (87) 99 02/22/19 22:30 110 109/76 7/18/19 22:00 108 32 109/71 (84) 95 7/18/19 22:00 109/71 7/18/19 21:30 112 37 108/68 (81) 95 7/18/19 21:00 110 34 106/72 (83) 95 7/18/19 21:00 106/72 7/18/19 20:35 108 39 40 7/18/19 20:30 110 36 111/71 (84) 94 718/19 20:00 40 718/19 20:00 102/62 718/19 20:00 98.5 107 34 102/62 (75) 96 [id number] 20:00 Mechanical Ventilator 02/22/19 19:30 109 39 104/69 (81) 96 1819 19:17 114 1819 19:04 121 35 40 7/18/19 19:00 116 39 115/71 (86) 94 [id number] 19:00 104/66 18/19 18:30 113 39 111/74 (86) 96 19 18:00 112 38 111/68 (82) 93 7/18/19 18:00 108/80 7/18/19 17:30 108 37 114/64 (81) 96 18/19 17:08 106 37 40 /18/19 17:00 105 36 107/71 (83) 98 7/18/19 17:00 112/85 18/19 16:30 106 35 108/70 (83) 96 18/19 16:00 40 18/19 16:00 98.7 99 23 110/48 (68) 95 18/19 16:00 112/85 718/19 16:00 Mechanical Ventilator 19 16:00 97 7/18/19 15:30 100 29 115/52 (73) 97 7/18/19 15:00 97 27 132/57 (82) 97 7/18/19 15:00 127/86 7/18/19 14:55 95 31 40 7/18/19 14:30 94 23 103/54 (70) 96 7/18/19 14:00 94 23 94/44 (61) 96 718/19 14:00 117/82 718/19 13:30 94 30 105/57 (73) 97 7/18/19 13:00 92/67 7/18/19 13:00 98.7 97 30 102/57 (72) 97 7/18/19 12:49 97 35 40 7/18/19 12:30 98 31 111/53 (72) 96 7/18/19 12:15 102 31 119/54 (75) 97 7/18/19 12:06 100 36 101/47 (65) 95 7/18/19 12:03 103 33 90/49 (63) 92 7/18/19 12:00 Mechanical Ventilator 18 12:00 40 7/18/19 12:00 101 7/18/19 12:00 113/89 7/18/ 12:00 98.5 100 28 86/38 (54) 96 7/18/19 11:45 99 34 94/60 (71) 96 7/18/19 11:33 99 32 92/58 (69) 97 7/18/19 11:30 98 32 89/58 (68) 96 7/18/19 11:15 100 39 105/63 (77) 98 7/18/19 11:00 98/74 7/18/19 11:00 104 34 109/66 (80) 94 7/18/19 10:56 106 36 40 7/18/19 10:45 97 29 91/58 (69) 99 7/18/19 10:30 102 32 94/65 (75) 98 7/18/19 10:15 105 29 99/55 (70) 95 7/18/19 10:12 90/47 7/18/19 10:04 107 28 90/47 (61) 97 7/18/19 10:00 94/62 7/18/19 10:00 105 29 88/51 (63) 97 7/18/19 09:45 109 31 94/62 (73) 98 7/18/19 09:30 114 36 106/68 (81) 93 7/18/19 09:30 94/62 7/18/19 09:15 111 35 103/70 (81) 95 7/18/19 09:00 112 33 110/68 (82) 92 7/18/19 09:00 110/68 7/18/19 08:45 116 39 106/69 (81) 92 7/18/19 08:41 115 33 40 40 7/18/19 08:40 92 7/18/19 08:30 117 37 110/71 (84) 95 7/18/19 08:15 118 34 118/66 (83) 95 7/18/19 08:00 118 7/18/19 08:00 40 7/18/19 08:00 Mechanical Ventilator 02/22/19 08:00 98.0 119 37 109/69 (82) 94 718/19 08:00 110/66 718/19 07:30 119 32 118/79 (92) 92 718/19 07:12 122 33 40 7/18/19 07:00 108 32 114/76 (89) 95 7/18/19 07:00 107/79 7 06:30 109 34 102/73 (83) 96 7/18/19 06:00 107 34 105/64 (78) 92 18 06:00 105/64 718 05:30 98 26 105/63 (77) 98 /18/19 05:12 97 27 40 /18/19 05:00 102/68 7/18/19 05:00 96 26 102/68 (79) 100 7/18/19 04:30 97 30 94/65 (75) 100 7/18/ 04:00 98.2 101 31 97/65 (76) 99 7/18/19 04:00 40 7/18/19 04:00 97/65 7/18/19 04:00 Mechanical Ventilator 02/22/19 03:30 107 34 99/60 (73) 94 718 03:18 108 35 40 7/18/19 03:13 106 7/18/19 03:00 114/68 7/18/19 03:00 109 29 114/68 (83) 94 7/18/19 02:30 107 28 102/67 (79) 94 7/18/19 02:00 106/67 718/19 02:00 116 31 106/67 (80) 94 7/18/19 01:30 121 37 109/63 (78) 94 7/18/19 01:00 111 31 109/64 (79) 94 7/18/19 01:00 109/64 718/19 00:55 89 32 40 7/18/19 00:30 107 26 101/67 (78) 94 02/22/19 00:00 98.2 102 28 98/64 (75) 99 02/22/19 00:00 98/64 02/22/19 00:00 40 02/22/19 00:00 Mechanical Ventilator 02/21/19 23:30 92 29 108/66 (80) 99 02/21/19 23:24 91 02/21/19 23:20 88 29 40 02/21/19 23:00 93 32 95/66 (76) 99 02/21/19 23:00 95/66 02/21/19 22:30 93 28 105/67 (80) 99 02/21/19 22:30 89 106/73 02/21/19 22:15 93 28 106/73 (84) 100 02/21/19 22:02 88/59 02/21/19 22:00 93 27 88/59 (69) 98 02/21/19 21:57 78/50 02/21/19 21:17 96 26 40 02/21/19 21:15 94 23 78/50 (59) 99 02/21/19 21:00 93 26 85/55 (65) 99 02/21/19 20:15 92 26 84/46 (59) 99 02/21/19 20:00 40 02/21/19 20:00 Mechanical Ventilator 02/21/19 20:00 86 02/21/19 20:00 97.5 93 27 74/50 (58) 97 02/21/19 19:13 91 26 40 02/21/19 19:00 91 26 91/63 (72) 99 02/21/19 18:00 91 26 89/58 (68) 99 02/21/19 17:00 90 26 86/56 (66) 99 02/21/19 16:55 111 36 40 Intake and Output 02/22/19 02/23/19 19:00 07:00 Intake Total 1483.040 ml 1195.73 ml Output Total 1260 ml 1960 ml Balance 223.040 ml -764.27 ml IV Total 1003.040 ml 665.73 ml Tube Feeding 480 ml 480 ml Other 50 ml Output Urine Total 1210 ml 1860 ml Stool Total 50 ml 100 ml # Voids 1 5 Labs Test 7/17/19 03:50 02/21/19 21:10 02/22/19 03:46 02/22/19 14:05 White Blood Count 29.4 K/UL (4.8-10.8) 33.6 K/UL (4.8-10.8) Red Blood Count 2.54 M/UL (4.70-6.10) 2.65 M/UL (4.70-6.10) Hemoglobin 8.4 G/DL (14.2-18.0) 8.6 G/DL (14.2-18.0) Hematocrit 24.3 % (42.0-52.0) 25.3 % (42.0-52.0) Mean Corpuscular Volume 96 FL (80-99) 96 FL (80-99) Mean Corpuscular Hemoglobin 33.3 PG (27.0-31.0) 32.4 PG (27.0-31.0) Mean Corpuscular Hemoglobin Concent 34.7 G/DL (32.0-36.0) 33.9 G/DL (32.0-36.0) Red Cell Distribution Width 15.2 % (11.6-14.8) 15.2 % (11.6-14.8) Platelet Count 163 K/UL (150-450) 283 K/UL (150-450) Mean Platelet Volume 10.1 FL (6.5-10.1) 8.6 FL (6.5-10.1) Neutrophils (%) (Auto) % (45.0-75.0) % (45.0-75.0) Lymphocytes (%) (Auto) % (20.0-45.0) % (20.0-45.0) Monocytes (%) (Auto) % (1.0-10.0) % (1.0-10.0) Eosinophils (%) (Auto) % (0.0-3.0) % (0.0-3.0) Basophils (%) (Auto) % (0.0-2.0) % (0.0-2.0) Differential Total Cells Counted 100 100 Neutrophils % (Manual) 80 % (45-75) 88 % (45-75) Lymphocytes % (Manual) 5 % (20-45) 5 % (20-45) Monocytes % (Manual) 10 % (1-10) 7 % (1-10) Eosinophils % (Manual) 0 % (0-3) 0 % (0-3) Basophils % (Manual) 0 % (0-2) 0 % (0-2) Band Neutrophils 5 % (0-8) 0 % (0-8) Platelet Estimate Adequate Adequate Platelet Morphology Normal Giant Platelets 1+ Polychromasia 1+ Anisocytosis 1+ 1+ Erythrocyte Sedimentation Rate 83 MM/HR (0-20) Prothrombin Time 16.2 SEC (9.30-11.50) Prothromb Time International Ratio 1.6 (0.9-1.1) Activated Partial Thromboplast Time 34 SEC (23-33) Sodium Level 141 MMOL/L (136-145) 140 MMOL/L (136-145) Potassium Level 3.2 MMOL/L (3.5-5.1) 2.7 MMOL/L (3.5-5.1) Chloride Level 107 MMOL/L (98-107) 107 MMOL/L (98-107) Carbon Dioxide Level 25 MMOL/L (21-32) 23 MMOL/L (21-32) Anion Gap 10 mmol/L (5-15) 10 mmol/L (5-15) Blood Urea Nitrogen 8 mg/dL (7-18) 7 mg/dL (7-18) Creatinine 0.7 MG/DL (0.55-1.30) 0.8 MG/DL (0.55-1.30) Estimat Glomerular Filtration Rate > 60 mL/min (>60) > 60 mL/min (>60) Glucose Level 82 MG/DL (74-106) 139 MG/DL (74-106) Calcium Level 7.1 MG/DL (8.5-10.1) 7.5 MG/DL (8.5-10.1) Phosphorus Level 2.3 MG/DL (2.5-4.9) 2.9 MG/DL (2.5-4.9) Magnesium Level 1.6 MG/DL (1.8-2.4) 2.0 MG/DL (1.8-2.4) Total Bilirubin 5.6 MG/DL (0.2-1.0) 6.1 MG/DL (0.2-1.0) Direct Bilirubin 4.7 MG/DL (0.0-0.3) 5.0 MG/DL (0.0-0.3) Aspartate Amino Transf (AST/SGOT) 191 U/L (15-37) 204 U/L (15-37) Alanine Aminotransferase (ALT/SGPT) 66 U/L (12-78) 67 U/L (12-78) Alkaline Phosphatase 176 U/L (46-116) 249 U/L (46-116) C-Reactive Protein, Quantitative 9.5 mg/dL (0.00-0.90) Total Protein 4.2 G/DL (6.4-8.2) 4.9 G/DL (6.4-8.2) Albumin 1.6 G/DL (3.4-5.0) 1.4 G/DL (3.4-5.0) Globulin 2.6 g/dL 3.5 g/dL Albumin/Globulin Ratio 0.6 (1.0-2.7) 0.4 (1.0-2.7) Amylase Level 123 U/L (25-115) Lipase 855 U/L (73-393) Immunoglobulin G 1039 mg/dL (700-1600) Immunoglobulin G1 446 mg/dL (248-810) Immunoglobulin G2 408 mg/dL (130-555) Immunoglobulin G3 29 mg/dL (15-102) Immunoglobulin G4 21 mg/dL (2-96) Hepatitis A IgM Antibody Negative (Negative) Hepatitis B Surface Antigen Negative (Negative) Hepatitis B Core IgM Antibody Negative (Negative) Hepatitis C Antibody <0.1 s/co ratio Vancomycin Level Trough 15.3 ug/mL (5.0-12.0) Hypochromasia 2+ Spherocytes 1+ Arterial Blood pH 7.490 (7.350-7.450) Arterial Blood Partial Pressure CO2 32.4 mmHg (35.0-45.0) Arterial Blood Partial Pressure O2 99.6 mmHg (75.0-100.0) Arterial Blood HCO3 24.2 mmol/L (22.0-26.0) Arterial Blood Oxygen Saturation 97.2 % (95-100) Arterial Blood Base Excess 1.2 (-2-2) Cesar Test Positive Test 02/22/19 17:50 02/23/19 04:05 White Blood Count 35.1 K/UL (4.8-10.8) 34.9 K/UL (4.8-10.8) Red Blood Count 2.60 M/UL (4.70-6.10) 2.41 M/UL (4.70-6.10) Hemoglobin 8.3 G/DL (14.2-18.0) 7.7 G/DL (14.2-18.0) Hematocrit 24.3 % (42.0-52.0) 23.1 % (42.0-52.0) Mean Corpuscular Volume 93 FL (80-99) 96 FL (80-99) Mean Corpuscular Hemoglobin 31.9 PG (27.0-31.0) 31.8 PG (27.0-31.0) Mean Corpuscular Hemoglobin Concent 34.1 G/DL (32.0-36.0) 33.2 G/DL (32.0-36.0) Red Cell Distribution Width 14.4 % (11.6-14.8) 15.1 % (11.6-14.8) Platelet Count 325 K/UL (150-450) 335 K/UL (150-450) Mean Platelet Volume 7.4 FL (6.5-10.1) 7.6 FL (6.5-10.1) Neutrophils (%) (Auto) % (45.0-75.0) % (45.0-75.0) Lymphocytes (%) (Auto) % (20.0-45.0) % (20.0-45.0) Monocytes (%) (Auto) % (1.0-10.0) % (1.0-10.0) Eosinophils (%) (Auto) % (0.0-3.0) % (0.0-3.0) Basophils (%) (Auto) % (0.0-2.0) % (0.0-2.0) Differential Total Cells Counted 100 100 Neutrophils % (Manual) 85 % (45-75) 81 % (45-75) Lymphocytes % (Manual) 7 % (20-45) 10 % (20-45) Monocytes % (Manual) 4 % (1-10) 3 % (1-10) Eosinophils % (Manual) 1 % (0-3) 1 % (0-3) Basophils % (Manual) 0 % (0-2) 0 % (0-2) Band Neutrophils 3 % (0-8) 5 % (0-8) Platelet Estimate Adequate Adequate Platelet Morphology Normal Normal Polychromasia 1+ 1+ Anisocytosis 1+ 1+ Macrocytosis 1+ Prothrombin Time 15.6 SEC (9.30-11.50) Prothromb Time International Ratio 1.5 (0.9-1.1) Nucleated Red Blood Cells 1 /100 WBC Hypochromasia 1+ Sodium Level 142 MMOL/L (136-145) Potassium Level 3.2 MMOL/L (3.5-5.1) Chloride Level 109 MMOL/L (98-107) Carbon Dioxide Level 24 MMOL/L (21-32) Anion Gap 9 mmol/L (5-15) Blood Urea Nitrogen 6 mg/dL (7-18) Creatinine 0.7 MG/DL (0.55-1.30) Estimat Glomerular Filtration Rate > 60 mL/min (>60) Glucose Level 113 MG/DL (74-106) Calcium Level 7.6 MG/DL (8.5-10.1) Phosphorus Level 2.3 MG/DL (2.5-4.9) Magnesium Level 1.6 MG/DL (1.8-2.4) Total Bilirubin 6.8 MG/DL (0.2-1.0) Direct Bilirubin 5.6 MG/DL (0.0-0.3) Aspartate Amino Transf (AST/SGOT) 222 U/L (15-37) Alanine Aminotransferase (ALT/SGPT) 76 U/L (12-78) Alkaline Phosphatase 261 U/L (46-116) C-Reactive Protein, Quantitative 6.2 mg/dL (0.00-0.90) Pro-B-Type Natriuretic Peptide 318 pg/mL (0-125) Total Protein 4.5 G/DL (6.4-8.2) Albumin 1.4 G/DL (3.4-5.0) Globulin 3.1 g/dL Albumin/Globulin Ratio 0.5 (1.0-2.7) Micro Microbiology Date/Time Source Procedure Growth Status 02/22/19 23:55 Stool Clostridium difficile Toxin Assay - Final Complete Height (Feet): 5 Height (Inches): 5.00 Weight (Pounds): 176 General Appearance: lethargic, confused Objective Gen: NAD HEENT: atraumatic, other - OGT Lungs: clear, cpap++ Heart: HR/BP stable Abdomen: soft, non-tender, active bowel sounds Extremities: no cce Robert Johnston MD Feb 23, 2019 16:16
--- NOTE | 2019-02-23 18:00 | NUR ---
NURSE NOTES: Aguilar inserted using aseptic technique at [address] Sen. 325mL output. Blood pressure 94/60 on 2mcg/min Levophed drip. Will continue to monitor and titrate Levophed per protocol. HR 90, SpO2 96%, and RR 33. Patient bed in low position with bed alarm on and call light in reach at this time. Addendum: 02/23/19 at 1856 by Debby Escobar RN Bed bath and oral care performed at this time.
--- NOTE | 2019-02-23 18:53 | Pulmonolgy Critical Care Note ---
Critical Care - Asmt/Plan Problems: (1) Seizure disorder (2) Endotracheally intubated (3) Septic shock (4) Sepsis (5) Sinus tachycardia (6) Lactic acid acidosis (7) High anion gap metabolic acidosis (8) STEFANI (acute kidney injury) (9) Abnormal LFTs (10) Coffee ground emesis (11) Gastrointestinal bleed (12) Altered mental status (13) Alcohol withdrawal seizure (14) Ventilator dependent Assessment/Plan: Continue ventilatory support/settings reviewed SBT when stable Monitor volumes, PRN lasix Replete K, phos and Mag Titrate NE Continue Vanco/Zosyn/Flucon per ID, F/U Cx's F/U GI recs, PPI, EGD when stable, ? colo Monitor counts, transfuse as neded Monitor for EtOH w/drawal, PRN ativan Continue AEDs, monitor for Sz's, F/U neuro recs FC CCT 35 Critical Care - Objective Last 24 Hour Vital Signs Date Time Temp Pulse Resp B/P (MAP) Pulse Ox O2 Delivery O2 Flow Rate FiO2 02/23/19 18:30 92 30 96/61 (73) 96 02/23/19 18:00 93 35 94/58 (70) 96 02/23/19 17:30 95 33 104/63 (77) 96 02/23/19 17:19 93 29 40 02/23/19 17:00 88 26 104/70 (81) 100 02/23/19 16:30 84 26 101/61 (74) 100 02/23/19 16:00 Mechanical Ventilator 02/23/19 16:00 40 02/23/19 16:00 89 02/23/19 16:00 98.3 95 26 98/59 (72) 100 02/23/19 15:30 90 26 92/56 (68) 97 02/23/19 15:00 98/59 02/23/19 15:00 95 26 102/61 (75) 97 02/23/19 14:32 91 30 40 02/23/19 14:30 102 20 102/51 (68) 97 02/23/19 14:00 103/58 02/23/19 14:00 93 29 96/56 (69) 97 02/23/19 13:30 94 29 92/57 (69) 97 02/23/19 13:00 92 29 93/60 (71) 98 02/23/19 13:00 93/60 02/23/19 12:48 94 28 40 02/23/19 12:30 98.3 94 29 103/53 (70) 98 02/23/19 12:00 84/52 02/23/19 12:00 Mechanical Ventilator 02/23/19 12:00 95 02/23/19 12:00 94 29 84/52 (63) 98 02/23/19 12:00 40 02/23/19 11:30 97 32 96/55 (69) 98 02/23/19 11:03 107/59 02/23/19 11:00 105 39 107/59 (75) 96 02/23/19 10:30 110/69 02/23/19 10:30 103 37 112/62 (79) 97 02/23/19 10:20 102 27 40 02/23/19 10:15 96 25 110/69 (83) 95 02/23/19 10:00 110/69 02/23/19 10:00 94 22 92/51 (65) 96 02/23/19 09:45 94 27 99/62 (74) 99 02/23/19 09:37 96/65 02/23/19 09:30 94 26 96/65 (75) 97 02/23/19 09:15 94 25 97/64 (75) 95 02/23/19 09:00 96 26 87/54 (65) 100 02/23/19 09:00 97/64 02/23/19 08:45 96 27 102/71 (81) 96 02/23/19 08:45 102 33 40 02/23/19 08:30 96 25 96/57 (70) 94 02/23/19 08:15 96 27 95/59 (71) 98 02/23/19 08:00 97 02/23/19 08:00 40 02/23/19 08:00 95/59 02/23/19 08:00 97.6 95 26 97/66 (76) 98 02/23/19 08:00 Mechanical Ventilator 02/23/19 07:45 95 26 100/62 (75) 94 02/23/19 07:30 93 23 109/69 (82) 96 02/23/19 07:16 92 27 40 02/23/19 07:00 93 26 106/75 (85) 99 02/23/19 07:00 106/75 02/23/19 06:30 92 26 101/60 (74) 97 02/23/19 06:00 107/69 02/23/19 06:00 93 30 107/69 (82) 99 02/23/19 05:30 89 28 113/79 (90) 98 02/23/19 05:06 85 28 40 02/23/19 05:00 95 26 116/65 (82) 97 02/23/19 05:00 116/65 02/23/19 04:30 95 34 114/74 (87) 100 02/23/19 04:00 Mechanical Ventilator 02/23/19 04:00 40 02/23/19 04:00 109/68 02/23/19 04:00 98.7 88 30 109/68 (82) 100 02/23/19 03:30 94 33 115/68 (84) 99 02/23/19 03:08 95 02/23/19 03:00 124/96 02/23/19 03:00 96 26 124/78 (93) 96 02/23/19 02:36 89 26 40 02/23/19 02:30 94 26 103/66 (78) 98 02/23/19 02:00 92 26 111/73 (86) 97 02/23/19 01:30 94 26 100/62 (75) 97 02/23/19 01:10 104 38 40 02/23/19 01:00 105 34 113/70 (84) 95 02/23/19 01:00 113/70 02/23/19 00:30 96 29 107/64 (78) 98 02/23/19 00:00 98.5 96 30 100/65 (77) 98 02/23/19 00:00 40 02/23/19 00:00 Mechanical Ventilator 02/23/19 00:00 100/65 02/22/19 23:30 99 34 111/70 (84) 97 02/22/19 23:06 96 02/22/19 23:00 102 36 103/61 (75) 97 02/22/19 23:00 103/61 02/22/19 22:49 111 38 40 02/22/19 22:30 100 31 109/76 (87) 99 02/22/19 22:30 110 109/76 02/22/19 22:00 108 32 109/71 (84) 95 02/22/19 22:00 109/71 02/22/19 21:30 112 37 108/68 (81) 95 02/22/19 21:00 110 34 106/72 (83) 95 02/22/19 21:00 106/72 02/22/19 20:35 108 39 40 02/22/19 20:30 110 36 111/71 (84) 94 02/22/19 20:00 40 02/22/19 20:00 102/62 02/22/19 20:00 98.5 107 34 102/62 (75) 96 02/22/19 20:00 Mechanical Ventilator 02/22/19 19:30 109 39 104/69 (81) 96 02/22/19 19:17 114 02/22/19 19:04 121 35 40 02/22/19 19:00 116 39 115/71 (86) 94 02/22/19 19:00 104/66 Status: sedated - intubated Condition: critical HEENT: atraumatic, normocephalic Lungs: rhonchi Heart: HR/BP unstable Abdomen: soft, non-tender, active bowel sounds Extremities: no C/C/E Micro: Microbiology Date/Time Source Procedure Growth Status 02/22/19 23:55 Stool Clostridium difficile Toxin Assay - Final Complete 02/20/19 20:20 Stool Clostridium difficile Toxin Assay - Final Complete Accucheck: 33 Blood Sugars: BS controlled Critical Care - Subjective ROS Limited/Unobtainable: Yes ICU Day: 9 Intubation Day: 8 Interval Events: Failed SBT Weaning NE Condition: critical IV Access: PICC EKG Rhythm: Sinus Rhythm FI02: 40 Vent Support Breath Rate: 26 Vent Support Mode: AC Vent Tidal Volume: 500 Sputum Amount: Small PEEP: 5.0 PIP: 44 Secretions: small Fluids: SLIV Drips: NE Tube Feeding Amount: 40 I&O: Intake and Output 02/22/19 02/23/19 19:00 07:00 Intake Total 1483.040 ml 1195.73 ml Output Total 1260 ml 1960 ml Balance 223.040 ml -764.27 ml IV Total 1003.040 ml 665.73 ml Tube Feeding 480 ml 480 ml Other 50 ml Output Urine Total 1210 ml 1860 ml Stool Total 50 ml 100 ml # Voids 1 5 Subjective: [place] CXR: PVC ET-Tube: 7.5 ET Position: 24 Labs: Laboratory Tests Test 02/23/19 04:05 White Blood Count 34.9 K/UL (4.8-10.8) *H Red Blood Count 2.41 M/UL (4.70-6.10) L Hemoglobin 7.7 G/DL (14.2-18.0) L Hematocrit 23.1 % (42.0-52.0) L Mean Corpuscular Volume 96 FL (80-99) Mean Corpuscular Hemoglobin 31.8 PG (27.0-31.0) H Mean Corpuscular Hemoglobin Concent 33.2 G/DL (32.0-36.0) Red Cell Distribution Width 15.1 % (11.6-14.8) H Platelet Count 335 K/UL (150-450) Mean Platelet Volume 7.6 FL (6.5-10.1) Neutrophils (%) (Auto) % (45.0-75.0) Lymphocytes (%) (Auto) % (20.0-45.0) Monocytes (%) (Auto) % (1.0-10.0) Eosinophils (%) (Auto) % (0.0-3.0) Basophils (%) (Auto) % (0.0-2.0) Differential Total Cells Counted 100 Neutrophils % (Manual) 81 % (45-75) H Lymphocytes % (Manual) 10 % (20-45) L Monocytes % (Manual) 3 % (1-10) Eosinophils % (Manual) 1 % (0-3) Basophils % (Manual) 0 % (0-2) Band Neutrophils 5 % (0-8) Nucleated Red Blood Cells 1 /100 WBC Platelet Estimate Adequate Platelet Morphology Normal Polychromasia 1+ Hypochromasia 1+ Anisocytosis 1+ Sodium Level 142 MMOL/L (136-145) Potassium Level 3.2 MMOL/L (3.5-5.1) L Chloride Level 109 MMOL/L (98-107) H Carbon Dioxide Level 24 MMOL/L (21-32) Anion Gap 9 mmol/L (5-15) Blood Urea Nitrogen 6 mg/dL (7-18) L Creatinine 0.7 MG/DL (0.55-1.30) Estimat Glomerular Filtration Rate > 60 mL/min (>60) Glucose Level 113 MG/DL (74-106) H Calcium Level 7.6 MG/DL (8.5-10.1) L Phosphorus Level 2.3 MG/DL (2.5-4.9) L Magnesium Level 1.6 MG/DL (1.8-2.4) L Total Bilirubin 6.8 MG/DL (0.2-1.0) H Direct Bilirubin 5.6 MG/DL (0.0-0.3) H Aspartate Amino Transf (AST/SGOT) 222 U/L (15-37) H Alanine Aminotransferase (ALT/SGPT) 76 U/L (12-78) Alkaline Phosphatase 261 U/L (46-116) H C-Reactive Protein, Quantitative 6.2 mg/dL (0.00-0.90) H Pro-B-Type Natriuretic Peptide 318 pg/mL (0-125) H Total Protein 4.5 G/DL (6.4-8.2) L Albumin 1.4 G/DL (3.4-5.0) L Globulin 3.1 g/dL Albumin/Globulin Ratio 0.5 (1.0-2.7) L Han Harris MD Feb 23, 2019 18:53
--- NOTE | 2019-02-23 19:30 | NUR ---
NURSE NOTES:Received pt awake and alert, followed simple commands, orally intubated on ac mode , NSR on the monito, Bp been supported with Levophed drip at 2mcg/min, Bilateral soft wrist restraints on for safety to avoid self extubation. Tolerateg OGt fdg Jevity 1.2 at 40ml/hr, no residuals HOB kept elevated, on aspiration precaution. Pt has2-3+ edema ashvin. on the RT hand 3+. Aguilar to gravity with moderatwe amt of yellowish urine. Monitor I and O. Monitor lytes.Padded side rails on. On seizure precaution. Will continue to monitor.
--- NOTE | 2019-02-23 19:35 | NUR ---
HAND-OFF: Report given to ESHA Todd. Patient blood pressure 99/63 on 2mcg/min levophed drip. Endorsed to monitor and follow up.
--- NOTE | 2019-02-23 20:00 | NUR ---
NURSE NOTES:Levophed drip down to 1mcg/min. MAP 70 at this time. Watch pt BP.
[2019-02-23] MEDS: Dyna-Hex 2% Top Sol 2oz TOPIC SCH (20:16)
--- NOTE | 2019-02-23 21:19 | NUR ---
NURSE NOTES:Spironolactone meds not given due to low bp.
[2019-02-23] MEDS: Phenylephrine 50 MG in D5W 245 ML IV SCH (22:30)
--- NOTE | 2019-02-23 23:00 | NUR ---
NURSE NOTES:Suctioned tk whitish secretions moderate in amt. HOB kept elevted. watch for any resp. distress.
[2019-02-24] VITALS (27 sets, daily range): BP systolic 95–130; BP diastolic 52–87
--- NOTE | 2019-02-24 01:00 | NUR ---
NURSE NOTES:Diuresing well lg amt of eneida yellow urine. Monitor i and O. Monitor lytes.
--- NOTE | 2019-02-24 03:00 | NUR ---
NURSE NOTES:Levophed drip off. Bp stable.
--- NOTE | 2019-02-24 05:00 | NUR ---
NURSE NOTES:Complete bath with bed changed done.
--- NOTE | 2019-02-24 06:00 | NUR ---
NURSE NOTES: Bp remained stable. No resp. distress noted.
[2019-02-24] MEDS: Piperacillin/Tazobactam 3.375 GM in NS 110 ML IVPB SCH ×3 (06:18→21:52)
--- NOTE | 2019-02-24 07:00 | NUR ---
RESPIRATORY NOTE: Received pt orally intubated with ETT, secured via anchor fast. On PB vent; current vent settings in place. No pt distress noted. Vitals WNLalarms are on and audible with ambu bag at bedside. will cont to monitor.
[2019-02-24 07:05] LABS: HEMATOCRIT 23.2 % (42.0-52.0); HEMOGLOBIN 7.9 G/DL (14.2-18.0); MEAN CORPUSCULAR VOLUME 95 FL (80-99); PLATELET COUNT 360 K/UL (150-450); RED BLOOD COUNT 2.45 M/UL (4.70-6.10); RED CELL DISTRIBUTION WIDTH 15.8 % (11.6-14.8)
[2019-02-24 07:11] LABS: ALANINE AMINOTRANSFERASE 73 U/L (12-78); ALBUMIN 1.3 G/DL (3.4-5.0); ALBUMIN/GLOBULIN RATIO 0.3 (1.0-2.7); ALKALINE PHOSPHATASE 257 U/L (46-116); ANION GAP 8 mmol/L (5-15); ASPARTATE AMINO TRANSFERASE 225 U/L (15-37); BLOOD UREA NITROGEN 5 mg/dL (7-18); CALCIUM 7.7 MG/DL (8.5-10.1); CARBON DIOXIDE 26 MMOL/L (21-32); CHLORIDE 106 MMOL/L (98-107); CREATININE 0.7 MG/DL (0.55-1.30); PHOSPHORUS 3.2 MG/DL (2.5-4.9); SODIUM 141 MMOL/L (136-145)
[2019-02-24 07:14] LABS: POTASSIUM 2.7 MMOL/L (3.5-5.1)
--- NOTE | 2019-02-24 07:15 | NUR ---
NURSE NOTES:Lab called K 2.7- Endorse to ESHA Pinzon To call Dr Bailon
--- NOTE | 2019-02-24 07:20 | NUR ---
HAND-OFF: Report given to Jeromy BALBUENA.
[2019-02-24 07:34] LABS: BILIRUBIN,DIRECT 5.9 MG/DL (0.0-0.3)
[2019-02-24] MEDS: Vasopressin 100 UNITS in NS 95 ML IV SCH (08:15)
[2019-02-24] MEDS: Spironolactone 25mg tab NG SCH (09:18)
[2019-02-24] MEDS: Thiamine 100mg in D5W 55ml IVPB SCH (09:18)
[2019-02-24] MEDS: levETIRAcetam 500mg/NS100ml 100 ML IVPB SCH ×2 (09:18→20:25)
[2019-02-24] MEDS: Pantoprazole Inj IVP SCH (09:18)
--- NOTE | 2019-02-24 09:45 | NUR ---
NURSE NOTES: Dr. Bailon placed order for 60mEq for potassium of 2.7, changed spirolactone to 50mg and added an additional dose of 25mg to be given once,
[2019-02-24] MEDS ORDERED: Spironolactone 25mg tab NG SCH (10:15)
[2019-02-24] MEDS: Vancomycin 1.25gm Premix IVPB SCH (11:10)
--- NOTE | 2019-02-24 11:15 | NUR ---
NURSE NOTES: spoke with Dr. Bailon regarding additional dose of spirolactone 25mg to be given once since bP has been 92-105 systolic, ordered to give a bolus of 500ml once, will continue to monitor. ,
[2019-02-24] MEDS ORDERED: Sodium Chloride 550 ML IVPB ONE (11:45)
--- NOTE | 2019-02-24 12:11 | NUR ---
RD ASSESSMENT & RECOMMENDATIONS SEE CARE ACTIVITY FOR COMPLETE ASSESSMENT DAILY ESTIMATED NEEDS: Needs based on Critical care, sepsis 72.7kg 22-30 kcals/kg 7964-8014 total kcals 1.2-2 g protein/kg 87-145 g total protein 25-30 mL/kg 8736-0367 total fluid mLs NUTRITION DIAGNOSIS: 1) Swallowing difficulty r/t respiratory status as evidenced by pt now orally intubated, adm w/ seizures and GIB, now on OGT feeding, pressor support held at this time. 2) Altered nutrition related lab values r/t clinical condition as evidenced by pt w/ low lytes (K 2.7, phos 1.8-> wnl, Mg 1.6->wnl) critically elev WBC, elev ammonia, elev T bili(1.4->7.0). CURRENT TF:Jevity 1.2 @ 40ml/hr x 24 hrs ENTERAL NUTRITION RECOMMENDATIONS: Jevity 1.2 @ 60ml/hr x 24 hrs + Prosource 1pkt daily to provide 1440ml, 1728kcal, 80g +11g prot, 1162ml free water - With HD stability, INCREASE goal rate to 60ml/hr x 24 hrs - Add prosource 1pkt daily - Flush per MD, HOB over 30 degrees FEED W/ HEMODYNAMIC STABILITY-> OTHERWISE TROPHIC FEEDS FOR 10-15ML/HR ADDITIONAL RECOMMENDATIONS: 1) Monitor HD stability: NE held at this time 2) Obtain a CALIBRATED BED SCALE Pt does not appear c/w WT of 130# per EMR 3) Replete lytes, check daily (low K) 4) Monitor TF tolerance- lipase and amylase elev 5) Monitor LFTs and T bili (trending up) .
--- NOTE | 2019-02-24 12:30 | NUR ---
NURSE NOTES: Dr. Goldberg updated patient tube feeding progress and noted he remains with diarrhea, no verbal orders given at this time, will review patient chart and change orders. patient remains tolerating tube feeding at jevity at 40ml/hr and patient remains with soft watery stools,
--- NOTE | 2019-02-24 13:30 | NUR ---
NURSE NOTES: Dr. Gupta updated on patient progress and consulting doctors plans, no verbal orders given at this time. Dr. lopez update on patient progress, no verbal orders given at this time. spoke with Dr. Sen regarding patient plans.
--- NOTE | 2019-02-24 13:39 | General Progress Note ---
Assessment/Plan Status: not improved, unchanged Assessment/Plan: Assessment/Plan Status: doing well, stable Status Narrative Assessment/Plan: 54 year old male with pMH of seizure disorder and etoh abuse admitted for seizures 2/2 non-compliance #severe septic shock likely 2/2 UTI #Gram negative bacteremia, now resolved by surveillance follow up blood culture #Acute respiratory failure requiting intubation -Vanc and Zosyn - gentamicin - Fluconazole per ID - Re culture ordered due to severe increase in the WBC from 15 to 26 to 29 thousand of unclear etiology - Hematology consult noted to be due to sepsis. - CBC serial. - CT 02/18 with atelectasis primarily - Diuresis started and good response -ID consult appreciated - Immunoglobulin and hepatitis panel negative. -cont ICU care -intubated and mild sedation. He follows commands well. FAILED weaning trial. -vent management per pulmonary -Titrate pressors to goal map >65 -abg prn - Reviewed CT chest/abd/pel #Lactic acidosis -2/2 severe shock/ poss abd source/ seizures - 2 D Echo on 02/16 with EF 65%. Discussed with cardiology and etiology likely sepsis and not cardiogenic -CTM -Fluid boluses completed. -Cont mIVF #Coagulopathy # Thrombocytopenia - 40,000 stable Monitor. No active bleeding toay. - Hematology consult with Dr. Johnston appreciated. Flow cytometry pending. -likely 2/2 hepatic injury 2/2 shock - Consumption coagulopathy. - Consider platelet transfusion if LESS than 30K with urine blood tinge color. #Coffee ground emesis likely in setting of GI bleed -H/H trending down. Monitor -GI consult appreciated -Plan for EGD once stable. Cancelled until the patient is hemodynamically more stable, OFF pressors transition and now back on low dose LEVOPHED 3 mcg - -surgery consult appreciated #Seizures 2/2 noncomplaint with AED -s/p phenytoin load in ED -Cont Phenytoin -Neurology consult appreciated -pending EEG - no seizures noted in last 24 hours -Ativan PRN for seizures -NPO -Seizure precautions #Hypokalemia - Replete as needed #hypophosphatemia - Repleted. #Hypomagnesemia -repleted -CTM # Urethral hemorrhage and clot evacuation - Discussed with Dr. Matta over the phone and bleeding stopped spontaneously, No formal urology consult for now in place. - If recurrent hemorrhage will address. - H/H and INR stat today. - Consider PRBC and Platelets if Hb < 8 or Plt < 30 K # Urinary retention PVR > 300 cc WILKINSON replaced 02/[address] ( in case of repeat hemorrhage ) D/w RN Code: Full Subjective ROS Limited/Unobtainable: Yes Allergies: Coded Allergies: No Known Allergies (Unverified , 02/10/15) All Systems: reviewed and negative except above Objective Last 24 Hour Vital Signs Date Time Temp Pulse Resp B/P (MAP) Pulse Ox O2 Delivery O2 Flow Rate FiO2 02/24/19 12:50 93 33 50 02/24/19 11:00 108 28 95/64 (74) 94 02/24/19 10:52 103 30 50 02/24/19 10:00 114 27 113/71 (85) 97 02/24/19 09:30 109/68 02/24/19 09:01 106 33 50 02/24/19 09:00 105 33 95/59 (71) 94 02/24/19 08:00 40 02/24/19 08:00 98.3 113 33 124/68 (86) 93 02/24/19 08:00 116 02/24/19 08:00 Mechanical Ventilator 02/24/19 07:00 115 29 121/87 (98) 98 02/24/19 06:56 95 02/24/19 06:52 116 40 50 02/24/19 06:00 112 29 124/58 (80) 98 02/24/19 05:00 98 27 40 02/24/19 05:00 115 29 126/67 (86) 98 02/24/19 04:00 104 02/24/19 04:00 Mechanical Ventilator 02/24/19 04:00 40 02/24/19 04:00 98.6 104 29 96/55 (69) 98 02/24/19 03:00 100/58 02/24/19 03:00 93 29 97/52 (67) 97 02/24/19 02:37 89 26 40 02/24/19 02:30 85 28 105/59 (74) 97 02/24/19 02:00 106/59 02/24/19 02:00 87 28 102/59 (73) 97 02/24/19 01:30 86 28 101/60 (74) 98 02/24/19 01:01 86 27 40 02/24/19 01:00 101/68 02/24/19 01:00 78 29 99/71 (80) 95 02/24/19 00:30 88 29 105/63 (77) 97 02/24/19 00:00 Mechanical Ventilator 02/24/19 00:00 85 02/24/19 00:00 40 02/24/19 00:00 99.0 85 28 101/65 (77) 97 02/24/19 00:00 101/65 02/23/19 23:30 88 28 94/56 (69) 97 02/23/19 23:00 88 27 92/53 (66) 97 02/23/19 23:00 92/53 02/23/19 22:54 91 26 40 02/23/19 22:30 86 26 103/63 (76) 99 02/23/19 22:30 83 94/58 02/23/19 22:00 88 27 94/58 (70) 98 02/23/19 22:00 94/58 02/23/19 21:30 88 29 93/59 (70) 97 02/23/19 21:20 98 30 40 02/23/19 21:00 90 28 100/66 (77) 97 02/23/19 21:00 100/66 02/23/19 20:30 90 26 95/61 (72) 97 02/23/19 20:00 Mechanical Ventilator 02/23/19 20:00 89/57 02/23/19 20:00 98.6 90 26 89/57 (68) 96 02/23/19 20:00 40 02/23/19 20:00 90 02/23/19 19:30 92 30 90/58 (69) 98 02/23/19 19:00 92 33 105/65 (78) 96 02/23/19 19:00 105/65 02/23/19 18:54 90 32 40 02/23/19 18:30 92 30 96/61 (73) 96 02/23/19 18:00 93 35 94/58 (70) 96 02/23/19 18:00 94/60 02/23/19 17:30 95 33 104/63 (77) 96 02/23/19 17:19 93 29 40 02/23/19 17:00 94/60 02/23/19 17:00 88 26 104/70 (81) 100 02/23/19 16:30 84 26 101/61 (74) 100 02/23/19 16:00 Mechanical Ventilator 02/23/19 16:00 40 02/23/19 16:00 101/61 02/23/19 16:00 89 02/23/19 16:00 98.3 95 26 98/59 (72) 100 02/23/19 15:30 90 26 92/56 (68) 97 02/23/19 15:00 98/59 02/23/19 15:00 95 26 102/61 (75) 97 02/23/19 14:32 91 30 40 02/23/19 14:30 102 20 102/51 (68) 97 02/23/19 14:00 103/58 02/23/19 14:00 93 29 96/56 (69) 97 Intake and Output 02/23/19 02/24/19 19:00 07:00 Intake Total 1859.795 ml 810.48 ml Output Total 2000 ml 3330 ml Balance -140.205 ml -2519.52 ml Free Water 90 ml IV Total 1379.795 ml 240.48 ml Tube Feeding 480 ml 480 ml Output Urine Total 2000 ml 3130 ml Stool Total 200 ml # Voids 5 Laboratory Tests 02/24/19 04:20: White Blood Count 32.0*H, Red Blood Count 2.45L, Hemoglobin 7.9L, Hematocrit 23.2L, Mean Corpuscular Volume 95, Mean Corpuscular Hemoglobin 32.1H, Mean Corpuscular Hemoglobin Concent 33.9, Red Cell Distribution Width 15.8H, Platelet Count 360, Mean Platelet Volume 7.1, Neutrophils (%) (Auto) , Lymphocytes (%) (Auto) , Monocytes (%) (Auto) , Eosinophils (%) (Auto) , Basophils (%) (Auto) , Differential Total Cells Counted 100, Neutrophils % ( Manual) 78H, Lymphocytes % (Manual) 13L, Monocytes % (Manual) 4, Eosinophils % ( Manual) 4H, Basophils % (Manual) 1, Band Neutrophils 0, Platelet Estimate Adequate, Platelet Morphology Normal, Hypochromasia 3+, Anisocytosis 1+, Spherocytes 2+, Sodium Level 141, Potassium Level 2.7*L, Chloride Level 106, Carbon Dioxide Level 26, Anion Gap 8, Blood Urea Nitrogen 5L, Creatinine 0.7, Estimat Glomerular Filtration Rate > 60, Glucose Level 92, Calcium Level 7.7L, Phosphorus Level 3.2, Magnesium Level 1.9, Total Bilirubin 7.0H, Direct Bilirubin 5.9H, Aspartate Amino Transf (AST/SGOT) 225H, Alanine Aminotransferase (ALT/SGPT) 73, Alkaline Phosphatase 257H, Total Protein 5.1L, Albumin 1.3L, Globulin 3.8, Albumin/Globulin Ratio 0.3L Height (Feet): 5 Height (Inches): 5.00 Weight (Pounds): 188 General Appearance: WD/WN EENT: PERRL/EOMI Neck: non-tender Cardiovascular: normal peripheral pulses, normal rate Abdomen: normal bowel sounds Extremities: normal range of motion 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
--- NOTE | 2019-02-24 14:30 | NUR ---
NURSE NOTES: Dr Bailon placed new orders for medication,
--- NOTE | 2019-02-24 14:30 | NUR ---
NURSE NOTES: Dr. Trevino made aware of patient HR of 95-105 in sinus rhythm/Tachycardia with no arrhythmias noted, no verbal orders given at this time.
--- NOTE | 2019-02-24 14:49 | Cardiac Electrophysiology PN ---
Assessment/Plan Assessment/Plan 1. Sinus tachycardia up to 170s. No evidence of acute myocardial infarction . Due to sepsis and anemia and alcohol withdrawal. EF 60% 2. S/P Septic shock and E Coli bacteremia, on broad-spectrum IV antibiotics. 3. Troponin leak. Type 2. Repeat level 0.16 and now negative 4. Respiratory failure on the vent. Failed weaning again 5. ETOH withdrawal 6. Seizures with noncompliance. 7. Upper gi bleed. EGD held for high WBC 8. Hematuria, resolved DW RN Subjective Subjective In ICU on the Vent off pressors. Failed weaning Objective Last 24 Hour Vital Signs Date Time Temp Pulse Resp B/P (MAP) Pulse Ox O2 Delivery O2 Flow Rate FiO2 02/24/19 13:00 96 32 105/70 (82) 98 02/24/19 12:50 93 33 50 02/24/19 12:00 Mechanical Ventilator 02/24/19 12:00 98.0 98 33 97/63 (74) 99 02/24/19 12:00 98 02/24/19 12:00 50 02/24/19 11:00 108 28 95/64 (74) 94 02/24/19 10:52 103 30 50 02/24/19 10:00 114 27 113/71 (85) 97 02/24/19 09:30 109/68 02/24/19 09:01 106 33 50 02/24/19 09:00 105 33 95/59 (71) 94 02/24/19 08:00 50 02/24/19 08:00 98.3 113 33 124/68 (86) 93 02/24/19 08:00 116 02/24/19 08:00 Mechanical Ventilator 02/24/19 07:00 115 29 121/87 (98) 98 02/24/19 06:56 95 02/24/19 06:52 116 40 50 02/24/19 06:00 112 29 124/58 (80) 98 02/24/19 05:00 98 27 40 02/24/19 05:00 115 29 126/67 (86) 98 02/24/19 04:00 104 02/24/19 04:00 Mechanical Ventilator 02/24/19 04:00 40 02/24/19 04:00 98.6 104 29 96/55 (69) 98 02/24/19 03:00 100/58 02/24/19 03:00 93 29 97/52 (67) 97 02/24/19 02:37 89 26 40 02/24/19 02:30 85 28 105/59 (74) 97 02/24/19 02:00 106/59 02/24/19 02:00 87 28 102/59 (73) 97 02/24/19 01:30 86 28 101/60 (74) 98 02/24/19 01:01 86 27 40 02/24/19 01:00 101/68 02/24/19 01:00 78 29 99/71 (80) 95 02/24/19 00:30 88 29 105/63 (77) 97 02/24/19 00:00 Mechanical Ventilator 02/24/19 00:00 85 02/24/19 00:00 40 02/24/19 00:00 99.0 85 28 101/65 (77) 97 02/24/19 00:00 101/65 02/23/19 23:30 88 28 94/56 (69) 97 02/23/19 23:00 88 27 92/53 (66) 97 02/23/19 23:00 92/53 02/23/19 22:54 91 26 40 02/23/19 22:30 86 26 103/63 (76) 99 02/23/19 22:30 83 94/58 02/23/19 22:00 88 27 94/58 (70) 98 02/23/19 22:00 94/58 02/23/19 21:30 88 29 93/59 (70) 97 02/23/19 21:20 98 30 40 02/23/19 21:00 90 28 100/66 (77) 97 02/23/19 21:00 100/66 02/23/19 20:30 90 26 95/61 (72) 97 02/23/19 20:00 Mechanical Ventilator 02/23/19 20:00 89/57 02/23/19 20:00 98.6 90 26 89/57 (68) 96 02/23/19 20:00 40 02/23/19 20:00 90 02/23/19 19:30 92 30 90/58 (69) 98 02/23/19 19:00 92 33 105/65 (78) 96 02/23/19 19:00 105/65 02/23/19 18:54 90 32 40 02/23/19 18:30 92 30 96/61 (73) 96 02/23/19 18:00 93 35 94/58 (70) 96 02/23/19 18:00 94/60 02/23/19 17:30 95 33 104/63 (77) 96 02/23/19 17:19 93 29 40 02/23/19 17:00 94/60 02/23/19 17:00 88 26 104/70 (81) 100 02/23/19 16:30 84 26 101/61 (74) 100 02/23/19 16:00 Mechanical Ventilator 02/23/19 16:00 40 02/23/19 16:00 101/61 02/23/19 16:00 89 02/23/19 16:00 98.3 95 26 98/59 (72) 100 02/23/19 15:30 90 26 92/56 (68) 97 02/23/19 15:00 98/59 02/23/19 15:00 95 26 102/61 (75) 97 Intake and Output 02/23/19 02/24/19 19:00 07:00 Intake Total 1859.795 ml 810.48 ml Output Total 2000 ml 3330 ml Balance -140.205 ml -2519.52 ml Free Water 90 ml IV Total 1379.795 ml 240.48 ml Tube Feeding 480 ml 480 ml Output Urine Total 2000 ml 3130 ml Stool Total 200 ml # Voids 5 Laboratory Tests Test 02/24/19 04:20 White Blood Count 32.0 K/UL (4.8-10.8) *H Red Blood Count 2.45 M/UL (4.70-6.10) L Hemoglobin 7.9 G/DL (14.2-18.0) L Hematocrit 23.2 % (42.0-52.0) L Mean Corpuscular Volume 95 FL (80-99) Mean Corpuscular Hemoglobin 32.1 PG (27.0-31.0) H Mean Corpuscular Hemoglobin Concent 33.9 G/DL (32.0-36.0) Red Cell Distribution Width 15.8 % (11.6-14.8) H Platelet Count 360 K/UL (150-450) Mean Platelet Volume 7.1 FL (6.5-10.1) Neutrophils (%) (Auto) % (45.0-75.0) Lymphocytes (%) (Auto) % (20.0-45.0) Monocytes (%) (Auto) % (1.0-10.0) Eosinophils (%) (Auto) % (0.0-3.0) Basophils (%) (Auto) % (0.0-2.0) Differential Total Cells Counted 100 Neutrophils % (Manual) 78 % (45-75) H Lymphocytes % (Manual) 13 % (20-45) L Monocytes % (Manual) 4 % (1-10) Eosinophils % (Manual) 4 % (0-3) H Basophils % (Manual) 1 % (0-2) Band Neutrophils 0 % (0-8) Platelet Estimate Adequate Platelet Morphology Normal Hypochromasia 3+ Anisocytosis 1+ Spherocytes 2+ Sodium Level 141 MMOL/L (136-145) Potassium Level 2.7 MMOL/L (3.5-5.1) *L Chloride Level 106 MMOL/L (98-107) Carbon Dioxide Level 26 MMOL/L (21-32) Anion Gap 8 mmol/L (5-15) Blood Urea Nitrogen 5 mg/dL (7-18) L Creatinine 0.7 MG/DL (0.55-1.30) Estimat Glomerular Filtration Rate > 60 mL/min (>60) Glucose Level 92 MG/DL (74-106) Calcium Level 7.7 MG/DL (8.5-10.1) L Phosphorus Level 3.2 MG/DL (2.5-4.9) Magnesium Level 1.9 MG/DL (1.8-2.4) Total Bilirubin 7.0 MG/DL (0.2-1.0) H Direct Bilirubin 5.9 MG/DL (0.0-0.3) H Aspartate Amino Transf (AST/SGOT) 225 U/L (15-37) H Alanine Aminotransferase (ALT/SGPT) 73 U/L (12-78) Alkaline Phosphatase 257 U/L (46-116) H Total Protein 5.1 G/DL (6.4-8.2) L Albumin 1.3 G/DL (3.4-5.0) L Globulin 3.8 g/dL Albumin/Globulin Ratio 0.3 (1.0-2.7) L Microbiology Date/Time Source Procedure Growth Status 02/22/19 19:32 Blood Blood Culture - Preliminary NO GROWTH AFTER 24 HOURS Resulted 02/22/19 19:31 Blood Blood Culture - Preliminary NO GROWTH AFTER 24 HOURS Resulted 02/22/19 23:55 Stool Clostridium difficile Toxin Assay - Final Complete Objective HEAD AND NECK: No JVD.Orally intubated with OG tube LUNGS: Decreased breath sounds. CARDIOVASCULAR: Regular S1 and S2 with no gallop or murmur. ABDOMEN: Soft. EXTREMITIES: No pitting edema. Fidencio Trevino MD Feb 24, 2019 14:49
--- NOTE | 2019-02-24 14:59 | Nephrology Progress Note ---
Assessment/Plan Problem List: (1) STEFANI (acute kidney injury) Assessment: Cr lower (2) Septic shock (3) Electrolyte and fluid disorder (4) Abnormal LFTs Assessment: fatty liver (5) Hyperbilirubinemia Assessment - STEFANI (acute kidney injury) - Septic shock - Lactic acid acidosis - Abnormal LFTs - Gastrointestinal bleed - Alcohol withdrawal seizure Plan K and Mag and Phos supplement as needed discussed with RN PRN Albumin bolus for low bp Midodrine start feeding Hemodynamic support Pressors / Fluids as needed Aim to correct the electrolyte and acid base imbalance monitor renal parameters gastric support switch dilantin to keppra as LFTs rising per orders Subjective ROS Limited/Unobtainable: Yes Objective Objective Last 24 Hour Vital Signs Date Time Temp Pulse Resp B/P (MAP) Pulse Ox O2 Delivery O2 Flow Rate FiO2 02/24/19 14:51 95 30 50 02/24/19 14:00 93 30 108/64 (79) 98 02/24/19 13:00 96 32 105/70 (82) 98 02/24/19 12:50 93 33 50 02/24/19 12:00 Mechanical Ventilator 02/24/19 12:00 98.0 98 33 97/63 (74) 99 02/24/19 12:00 98 02/24/19 12:00 50 02/24/19 11:00 108 28 95/64 (74) 94 02/24/19 10:52 103 30 50 02/24/19 10:00 114 27 113/71 (85) 97 02/24/19 09:30 109/68 02/24/19 09:01 106 33 50 02/24/19 09:00 105 33 95/59 (71) 94 02/24/19 08:00 50 02/24/19 08:00 98.3 113 33 124/68 (86) 93 02/24/19 08:00 116 02/24/19 08:00 Mechanical Ventilator 02/24/19 07:00 115 29 121/87 (98) 98 02/24/19 06:56 95 02/24/19 06:52 116 40 50 02/24/19 06:00 112 29 124/58 (80) 98 02/24/19 05:00 98 27 40 02/24/19 05:00 115 29 126/67 (86) 98 02/24/19 04:00 104 02/24/19 04:00 Mechanical Ventilator 02/24/19 04:00 40 02/24/19 04:00 98.6 104 29 96/55 (69) 98 02/24/19 03:00 100/58 02/24/19 03:00 93 29 97/52 (67) 97 02/24/19 02:37 89 26 40 02/24/19 02:30 85 28 105/59 (74) 97 02/24/19 02:00 106/59 02/24/19 02:00 87 28 102/59 (73) 97 02/24/19 01:30 86 28 101/60 (74) 98 02/24/19 01:01 86 27 40 02/24/19 01:00 101/68 02/24/19 01:00 78 29 99/71 (80) 95 02/24/19 00:30 88 29 105/63 (77) 97 02/24/19 00:00 Mechanical Ventilator 02/24/19 00:00 85 02/24/19 00:00 40 02/24/19 00:00 99.0 85 28 101/65 (77) 97 02/24/19 00:00 101/65 02/23/19 23:30 88 28 94/56 (69) 97 02/23/19 23:00 88 27 92/53 (66) 97 02/23/19 23:00 92/53 02/23/19 22:54 91 26 40 02/23/19 22:30 86 26 103/63 (76) 99 02/23/19 22:30 83 94/58 02/23/19 22:00 88 27 94/58 (70) 98 02/23/19 22:00 94/58 02/23/19 21:30 88 29 93/59 (70) 97 02/23/19 21:20 98 30 40 02/23/19 21:00 90 28 100/66 (77) 97 02/23/19 21:00 100/66 02/23/19 20:30 90 26 95/61 (72) 97 02/23/19 20:00 Mechanical Ventilator 02/23/19 20:00 89/57 02/23/19 20:00 98.6 90 26 89/57 (68) 96 02/23/19 20:00 40 02/23/19 20:00 90 02/23/19 19:30 92 30 90/58 (69) 98 02/23/19 19:00 92 33 105/65 (78) 96 02/23/19 19:00 105/65 02/23/19 18:54 90 32 40 02/23/19 18:30 92 30 96/61 (73) 96 02/23/19 18:00 93 35 94/58 (70) 96 02/23/19 18:00 94/60 02/23/19 17:30 95 33 104/63 (77) 96 02/23/19 17:19 93 29 40 02/23/19 17:00 94/60 02/23/19 17:00 88 26 104/70 (81) 100 02/23/19 16:30 84 26 101/61 (74) 100 02/23/19 16:00 Mechanical Ventilator 02/23/19 16:00 40 02/23/19 16:00 101/61 02/23/19 16:00 89 02/23/19 16:00 98.3 95 26 98/59 (72) 100 02/23/19 15:30 90 26 92/56 (68) 97 02/23/19 15:00 98/59 02/23/19 15:00 95 26 102/61 (75) 97 Intake and Output 02/23/19 02/24/19 19:00 07:00 Intake Total 1859.795 ml 810.48 ml Output Total 2000 ml 3330 ml Balance -140.205 ml -2519.52 ml Free Water 90 ml IV Total 1379.795 ml 240.48 ml Tube Feeding 480 ml 480 ml Output Urine Total 2000 ml 3130 ml Stool Total 200 ml # Voids 5 Laboratory Tests 02/24/19 04:20: White Blood Count 32.0*H, Red Blood Count 2.45L, Hemoglobin 7.9L, Hematocrit 23.2L, Mean Corpuscular Volume 95, Mean Corpuscular Hemoglobin 32.1H, Mean Corpuscular Hemoglobin Concent 33.9, Red Cell Distribution Width 15.8H, Platelet Count 360, Mean Platelet Volume 7.1, Neutrophils (%) (Auto) , Lymphocytes (%) (Auto) , Monocytes (%) (Auto) , Eosinophils (%) (Auto) , Basophils (%) (Auto) , Differential Total Cells Counted 100, Neutrophils % ( Manual) 78H, Lymphocytes % (Manual) 13L, Monocytes % (Manual) 4, Eosinophils % ( Manual) 4H, Basophils % (Manual) 1, Band Neutrophils 0, Platelet Estimate Adequate, Platelet Morphology Normal, Hypochromasia 3+, Anisocytosis 1+, Spherocytes 2+, Sodium Level 141, Potassium Level 2.7*L, Chloride Level 106, Carbon Dioxide Level 26, Anion Gap 8, Blood Urea Nitrogen 5L, Creatinine 0.7, Estimat Glomerular Filtration Rate > 60, Glucose Level 92, Calcium Level 7.7L, Phosphorus Level 3.2, Magnesium Level 1.9, Total Bilirubin 7.0H, Direct Bilirubin 5.9H, Aspartate Amino Transf (AST/SGOT) 225H, Alanine Aminotransferase (ALT/SGPT) 73, Alkaline Phosphatase 257H, Total Protein 5.1L, Albumin 1.3L, Globulin 3.8, Albumin/Globulin Ratio 0.3L Height (Feet): 5 Height (Inches): 5.00 Weight (Pounds): 188 General Appearance: no apparent distress EENT: other - vented Cardiovascular: tachycardia Respiratory/Chest: decreased breath sounds Abdomen: distended Objective no change Scotty Bailon MD Feb 24, 2019 14:59
--- NOTE | 2019-02-24 15:03 | Surgery Progress Note ---
Surgery Progress Note Subjective Procedure Performed left femoral central venous catheter insertion Additional Comments leukocytosis awake weaned off pressors responsive labs noted Objective Last 24 Hour Vital Signs Date Time Temp Pulse Resp B/P (MAP) Pulse Ox O2 Delivery O2 Flow Rate FiO2 02/24/19 14:51 95 30 50 02/24/19 14:00 93 30 108/64 (79) 98 02/24/19 13:00 96 32 105/70 (82) 98 02/24/19 12:50 93 33 50 02/24/19 12:00 Mechanical Ventilator 02/24/19 12:00 98.0 98 33 97/63 (74) 99 02/24/19 12:00 98 02/24/19 12:00 50 02/24/19 11:00 108 28 95/64 (74) 94 02/24/19 10:52 103 30 50 02/24/19 10:00 114 27 113/71 (85) 97 02/24/19 09:30 109/68 02/24/19 09:01 106 33 50 02/24/19 09:00 105 33 95/59 (71) 94 02/24/19 08:00 50 02/24/19 08:00 98.3 113 33 124/68 (86) 93 02/24/19 08:00 116 02/24/19 08:00 Mechanical Ventilator 02/24/19 07:00 115 29 121/87 (98) 98 02/24/19 06:56 95 02/24/19 06:52 116 40 50 02/24/19 06:00 112 29 124/58 (80) 98 02/24/19 05:00 98 27 40 02/24/19 05:00 115 29 126/67 (86) 98 02/24/19 04:00 104 02/24/19 04:00 Mechanical Ventilator 02/24/19 04:00 40 02/24/19 04:00 98.6 104 29 96/55 (69) 98 02/24/19 03:00 100/58 02/24/19 03:00 93 29 97/52 (67) 97 02/24/19 02:37 89 26 40 02/24/19 02:30 85 28 105/59 (74) 97 02/24/19 02:00 106/59 02/24/19 02:00 87 28 102/59 (73) 97 02/24/19 01:30 86 28 101/60 (74) 98 02/24/19 01:01 86 27 40 02/24/19 01:00 101/68 02/24/19 01:00 78 29 99/71 (80) 95 02/24/19 00:30 88 29 105/63 (77) 97 02/24/19 00:00 Mechanical Ventilator 02/24/19 00:00 85 02/24/19 00:00 40 02/24/19 00:00 99.0 85 28 101/65 (77) 97 02/24/19 00:00 101/65 02/23/19 23:30 88 28 94/56 (69) 97 02/23/19 23:00 88 27 92/53 (66) 97 02/23/19 23:00 92/53 02/23/19 22:54 91 26 40 02/23/19 22:30 86 26 103/63 (76) 99 02/23/19 22:30 83 94/58 02/23/19 22:00 88 27 94/58 (70) 98 02/23/19 22:00 94/58 02/23/19 21:30 88 29 93/59 (70) 97 02/23/19 21:20 98 30 40 02/23/19 21:00 90 28 100/66 (77) 97 02/23/19 21:00 100/66 02/23/19 20:30 90 26 95/61 (72) 97 02/23/19 20:00 Mechanical Ventilator 02/23/19 20:00 89/57 02/23/19 20:00 98.6 90 26 89/57 (68) 96 02/23/19 20:00 40 02/23/19 20:00 90 02/23/19 19:30 92 30 90/58 (69) 98 02/23/19 19:00 92 33 105/65 (78) 96 02/23/19 19:00 105/65 02/23/19 18:54 90 32 40 02/23/19 18:30 92 30 96/61 (73) 96 02/23/19 18:00 93 35 94/58 (70) 96 19 18:00 94/60 19 17:30 95 33 104/63 (77) 96 02/23/19 17:19 93 29 40 02/23/19 17:00 94/60 02/23/19 17:00 88 26 104/70 (81) 100 02/23/19 16:30 84 26 101/61 (74) 100 02/23/19 16:00 Mechanical Ventilator 02/23/19 16:00 40 02/23/19 16:00 101/61 02/23/19 16:00 89 02/23/19 16:00 98.3 95 26 98/59 (72) 100 02/23/19 15:30 90 26 92/56 (68) 97 I&O Intake and Output 02/23/19 02/24/19 19:00 07:00 Intake Total 1859.795 ml 837.98 ml Output Total 2000 ml 3330 ml Balance -140.205 ml -2492.02 ml Free Water 90 ml IV Total 1379.795 ml 267.98 ml Tube Feeding 480 ml 480 ml Output Urine Total 2000 ml 3130 ml Stool Total 200 ml # Voids 5 Drains: other Cardiovascular: RSR Respiratory: clear, decreased breath sounds Abdomen: soft, distended, decreased bowel sounds Extremities: no cyanosis Laboratory Tests Test 02/24/19 04:20 White Blood Count 32.0 K/UL (4.8-10.8) *H Red Blood Count 2.45 M/UL (4.70-6.10) L Hemoglobin 7.9 G/DL (14.2-18.0) L Hematocrit 23.2 % (42.0-52.0) L Mean Corpuscular Volume 95 FL (80-99) Mean Corpuscular Hemoglobin 32.1 PG (27.0-31.0) H Mean Corpuscular Hemoglobin Concent 33.9 G/DL (32.0-36.0) Red Cell Distribution Width 15.8 % (11.6-14.8) H Platelet Count 360 K/UL (150-450) Mean Platelet Volume 7.1 FL (6.5-10.1) Neutrophils (%) (Auto) % (45.0-75.0) Lymphocytes (%) (Auto) % (20.0-45.0) Monocytes (%) (Auto) % (1.0-10.0) Eosinophils (%) (Auto) % (0.0-3.0) Basophils (%) (Auto) % (0.0-2.0) Differential Total Cells Counted 100 Neutrophils % (Manual) 78 % (45-75) H Lymphocytes % (Manual) 13 % (20-45) L Monocytes % (Manual) 4 % (1-10) Eosinophils % (Manual) 4 % (0-3) H Basophils % (Manual) 1 % (0-2) Band Neutrophils 0 % (0-8) Platelet Estimate Adequate Platelet Morphology Normal Hypochromasia 3+ Anisocytosis 1+ Spherocytes 2+ Sodium Level 141 MMOL/L (136-145) Potassium Level 2.7 MMOL/L (3.5-5.1) *L Chloride Level 106 MMOL/L (98-107) Carbon Dioxide Level 26 MMOL/L (21-32) Anion Gap 8 mmol/L (5-15) Blood Urea Nitrogen 5 mg/dL (7-18) L Creatinine 0.7 MG/DL (0.55-1.30) Estimat Glomerular Filtration Rate > 60 mL/min (>60) Glucose Level 92 MG/DL (74-106) Calcium Level 7.7 MG/DL (8.5-10.1) L Phosphorus Level 3.2 MG/DL (2.5-4.9) Magnesium Level 1.9 MG/DL (1.8-2.4) Total Bilirubin 7.0 MG/DL (0.2-1.0) H Direct Bilirubin 5.9 MG/DL (0.0-0.3) H Aspartate Amino Transf (AST/SGOT) 225 U/L (15-37) H Alanine Aminotransferase (ALT/SGPT) 73 U/L (12-78) Alkaline Phosphatase 257 U/L (46-116) H Total Protein 5.1 G/DL (6.4-8.2) L Albumin 1.3 G/DL (3.4-5.0) L Globulin 3.8 g/dL Albumin/Globulin Ratio 0.3 (1.0-2.7) L Plan Problems: (1) Non-compliance Assessment & Plan: Noncompliance with seizure medication with known history of seizures Now had seizure Appreciate neurology input (2) Electrolyte and fluid disorder Assessment & Plan: Likely due to EtOH use and dehydration IV hydration Trend labs (3) Fever (4) Oral thrush (5) Diarrhea (6) Aspiration pneumonia (7) Seizure disorder (8) Tachycardia (9) Altered mental status (10) Alcohol withdrawal seizure (11) Alcohol withdrawal seizure (12) Episode of confusion (13) Coffee ground emesis (14) Gastrointestinal bleed Assessment & Plan: Patient on admission identified to have maroon-colored stool and coffee-ground emesis. Labs noted mild anemia with H&H trending down. No acute active bleed noted but given patient's history high risk for potential ulcers. PPI Appreciate GI input considerations for EGD once stable No evidence of pulmonary embolus, aortic dissection or aneurysm. Posterior basilar consolidation suspicious for pneumonia. Correlate clinically. Trace bilateral pleural effusions. Possible enterocolitis as described above. Please correlate clinically. Mild ascites Fatty liver Cholelithiasis with wall thickening. Cholecystitis not excluded. Small right inguinal hernia containing fat Extensive breathing motion artifact limiting evaluation. We will follow with recommendations thank you (15) Sinus tachycardia (16) Septic shock (17) Sepsis Assessment & Plan: Patient septic leukocytosis improved today lactic acidosis improving anemia renal function declining electrolyte disturbance US noted on pressors now but weaning on IV abx intubated on vent support cont with aggressive resuscitation US noted again. liver decompensated delgado wean pressors (18) Lactic acid acidosis (19) STEFANI (acute kidney injury) (20) Abnormal LFTs (21) High anion gap metabolic acidosis Juanpablo Marcus Feb 24, 2019 15:03
--- NOTE | 2019-02-24 15:30 | NUR ---
NURSE NOTES: Dr. Farris updated on patient status and WBC of 32.0, placed orders to discontinue fluconazole, lacto bacillus and ammonia level. No further verbal orders given.
--- NOTE | 2019-02-24 16:05 | Infectious Diseases Prog Note ---
Assessment/Plan Assessment/Plan ASSESSMENT AND PLAN: 1. sepsis, shock, e.coli bacteremia/uti, gram neg sepsis, pna/HCAP, ct noted, sirs, fevers fungemia but blood cultures negative, leukocytosis worse, c.diff. negative - zosyn and vancomycin, discontinue diflucan - surveillance blood cultures negative, monitor labs and chest x-ray - icu and supportive care 2. History of seizures. Workup per Neurology. 3. Acute kidney injury, likely secondary to sepsis. 4. The patient is anemic. 5. Severe sepsis with leukocytosis. 6. History of ETOH abuse. 7. No known allergies. 8. Family history is noncontributory. 9. MAR was noted. 10. Case was discussed with RN. 11. Social history is positive for ETOH abuse. 12. Poor prognosis. Subjective Constitutional: Reports: other - + vent ; Denies: fever Respiratory: Reports: shortness of breath Cardiovascular: Reports: other - off pressors Gastrointestinal/Abdominal: Reports: diarrhea, other - + rectal tube ; Denies: nausea, vomiting Neurologic: Reports: other - lethargic, weak Psychiatric: Reports: other - NA Skin: Denies: rash Hematologic: Denies: bleeding Musculoskeletal: Reports: other - NA Allergies: Coded Allergies: No Known Allergies (Unverified , 02/10/15) Objective Vital Signs Last 24 Hour Vital Signs Date Time Temp Pulse Resp B/P (MAP) Pulse Ox O2 Delivery O2 Flow Rate FiO2 02/24/19 15:00 103 32 117/73 (88) 97 02/24/19 14:51 95 30 50 02/24/19 14:00 93 30 108/64 (79) 98 02/24/19 13:00 96 32 105/70 (82) 98 02/24/19 12:50 93 33 50 02/24/19 12:00 Mechanical Ventilator 02/24/19 12:00 98.0 98 33 97/63 (74) 99 02/24/19 12:00 98 02/24/19 12:00 50 02/24/19 11:00 108 28 95/64 (74) 94 02/24/19 10:52 103 30 50 02/24/19 10:00 114 27 113/71 (85) 97 02/24/19 09:30 109/68 02/24/19 09:01 106 33 50 02/24/19 09:00 105 33 95/59 (71) 94 02/24/19 08:00 50 02/24/19 08:00 98.3 113 33 124/68 (86) 93 02/24/19 08:00 116 02/24/19 08:00 Mechanical Ventilator 02/24/19 07:00 115 29 121/87 (98) 98 02/24/19 06:56 95 02/24/19 06:52 116 40 50 02/24/19 06:00 112 29 124/58 (80) 98 02/24/19 05:00 98 27 40 02/24/19 05:00 115 29 126/67 (86) 98 02/24/19 04:00 104 02/24/19 04:00 Mechanical Ventilator 02/24/19 04:00 40 02/24/19 04:00 98.6 104 29 96/55 (69) 98 02/24/19 03:00 100/58 02/24/19 03:00 93 29 97/52 (67) 97 02/24/19 02:37 89 26 40 02/24/19 02:30 85 28 105/59 (74) 97 02/24/19 02:00 106/59 02/24/19 02:00 87 28 102/59 (73) 97 02/24/19 01:30 86 28 101/60 (74) 98 02/24/19 01:01 86 27 40 02/24/19 01:00 101/68 02/24/19 01:00 78 29 99/71 (80) 95 02/24/19 00:30 88 29 105/63 (77) 97 02/24/19 00:00 Mechanical Ventilator 02/24/19 00:00 85 02/24/19 00:00 40 02/24/19 00:00 99.0 85 28 101/65 (77) 97 02/24/19 00:00 101/65 02/23/19 23:30 88 28 94/56 (69) 97 02/23/19 23:00 88 27 92/53 (66) 97 02/23/19 23:00 92/53 02/23/19 22:54 91 26 40 02/23/19 22:30 86 26 103/63 (76) 99 02/23/19 22:30 83 94/58 02/23/19 22:00 88 27 94/58 (70) 98 02/23/19 22:00 94/58 02/23/19 21:30 88 29 93/59 (70) 97 02/23/19 21:20 98 30 40 02/23/19 21:00 90 28 100/66 (77) 97 02/23/19 21:00 100/66 02/23/19 20:30 90 26 95/61 (72) 97 02/23/19 20:00 Mechanical Ventilator 02/23/19 20:00 89/57 02/23/19 20:00 98.6 90 26 89/57 (68) 96 02/23/19 20:00 40 02/23/19 20:00 90 02/23/19 19:30 92 30 90/58 (69) 98 02/23/19 19:00 92 33 105/65 (78) 96 02/23/19 19:00 105/65 02/23/19 18:54 90 32 40 02/23/19 18:30 92 30 96/61 (73) 96 02/23/19 18:00 93 35 94/58 (70) 96 02/23/19 18:00 94/60 02/23/19 17:30 95 33 104/63 (77) 96 02/23/19 17:19 93 29 40 02/23/19 17:00 94/60 02/23/19 17:00 88 26 104/70 (81) 100 02/23/19 16:30 84 26 101/61 (74) 100 02/23/19 16:00 Mechanical Ventilator 02/23/19 16:00 40 02/23/19 16:00 101/61 02/23/19 16:00 89 02/23/19 16:00 98.3 95 26 98/59 (72) 100 Height (Feet): 5 Height (Inches): 5.00 Weight (Pounds): 188 General Appearance: other - on vent HEENT: normocephalic, atraumatic, no JVD, other - oral - intubated, possible icterus Respiratory/Chest: crackles/rales, rhonchi - bilaterally Cardiovascular: normal rate, regular rhythm, no gallop/murmur, no JVD Abdomen: normal bowel sounds, soft, non tender, no organomegaly Genitourinary: other - + delgado Extremities: no cyanosis Skin: no rash 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 Posterior basilar consolidation suspicious for pneumonia. Correlate clinically. Trace bilateral pleural effusions. Possible enterocolitis as described above. Please correlate clinically. Mild ascites Fatty liver Cholelithiasis with wall thickening. Cholecystitis not excluded. Small right inguinal hernia containing fat Extensive breathing motion artifact limiting evaluation. Chest x-ray - 02/17/19 - Procedure: XRAY Chest 1v Indication: Dyspnea Comparison: 02/16/2019 A single view chest radiograph was obtained. Findings: Left basilar consolidation with air bronchograms demonstrated. Costophrenic angle is obscured. Heart size is normal. Tubes and lines are stable and satisfactory in position. IMPRESSION: No significant change from the previous exam Chest x-ray - 02/21/19 - Comparison: 02/17/2019 A single view chest radiograph was obtained. Findings: Diffuse groundglass opacities have increased since the previous occasion. Heart remains normal in size. There is a left pleural effusion likely present. Tubes and lines are stable. A right PICC line is present. The tip is projected over the SVC. IMPRESSION: Worsening pulmonary edema. PICC line in good position. No change otherwise Chest x-ray - 02/22/19 - Findings: Tubes and lines are satisfactory and stable. Heart size is normal and stable. Groundglass opacities noted diffusely. Bilateral basilar consolidation with air bronchograms demonstrated. A probable left pleural effusion is noted. IMPRESSION: Evidence of radiographically stable pulmonary edema which may be noncardiogenic. Basilar consolidation unchanged. Left pleural effusion Microbiology Date/Time Source Procedure Growth Status 02/22/19 19:32 Blood Blood Culture - Preliminary NO GROWTH AFTER 24 HOURS Resulted 02/22/19 19:31 Blood Blood Culture - Preliminary NO GROWTH AFTER 24 HOURS Resulted 02/22/19 23:55 Stool Clostridium difficile Toxin Assay - Final Complete Laboratory Tests Test 02/24/19 04:20 White Blood Count 32.0 K/UL (4.8-10.8) *H Red Blood Count 2.45 M/UL (4.70-6.10) L Hemoglobin 7.9 G/DL (14.2-18.0) L Hematocrit 23.2 % (42.0-52.0) L Mean Corpuscular Volume 95 FL (80-99) Mean Corpuscular Hemoglobin 32.1 PG (27.0-31.0) H Mean Corpuscular Hemoglobin Concent 33.9 G/DL (32.0-36.0) Red Cell Distribution Width 15.8 % (11.6-14.8) H Platelet Count 360 K/UL (150-450) Mean Platelet Volume 7.1 FL (6.5-10.1) Neutrophils (%) (Auto) % (45.0-75.0) Lymphocytes (%) (Auto) % (20.0-45.0) Monocytes (%) (Auto) % (1.0-10.0) Eosinophils (%) (Auto) % (0.0-3.0) Basophils (%) (Auto) % (0.0-2.0) Differential Total Cells Counted 100 Neutrophils % (Manual) 78 % (45-75) H Lymphocytes % (Manual) 13 % (20-45) L Monocytes % (Manual) 4 % (1-10) Eosinophils % (Manual) 4 % (0-3) H Basophils % (Manual) 1 % (0-2) Band Neutrophils 0 % (0-8) Platelet Estimate Adequate Platelet Morphology Normal Hypochromasia 3+ Anisocytosis 1+ Spherocytes 2+ Sodium Level 141 MMOL/L (136-145) Potassium Level 2.7 MMOL/L (3.5-5.1) *L Chloride Level 106 MMOL/L (98-107) Carbon Dioxide Level 26 MMOL/L (21-32) Anion Gap 8 mmol/L (5-15) Blood Urea Nitrogen 5 mg/dL (7-18) L Creatinine 0.7 MG/DL (0.55-1.30) Estimat Glomerular Filtration Rate > 60 mL/min (>60) Glucose Level 92 MG/DL (74-106) Calcium Level 7.7 MG/DL (8.5-10.1) L Phosphorus Level 3.2 MG/DL (2.5-4.9) Magnesium Level 1.9 MG/DL (1.8-2.4) Total Bilirubin 7.0 MG/DL (0.2-1.0) H Direct Bilirubin 5.9 MG/DL (0.0-0.3) H Aspartate Amino Transf (AST/SGOT) 225 U/L (15-37) H Alanine Aminotransferase (ALT/SGPT) 73 U/L (12-78) Alkaline Phosphatase 257 U/L (46-116) H Total Protein 5.1 G/DL (6.4-8.2) L Albumin 1.3 G/DL (3.4-5.0) L Globulin 3.8 g/dL Albumin/Globulin Ratio 0.3 (1.0-2.7) L Current Medications Medications (Trade) Dose Ordered Sig/Tonny Route PRN Reason Start Time Stop Time Status Last Admin Dose Admin Acetaminophen (Tylenol) 650 mg Q4H PRN ORAL Mild Pain (Pain Scale 1-3) 02/16/19 00:30 03/16/19 12:29 02/17/19 04:53 Acetaminophen (Tylenol) 650 mg Q4H PRN RECTAL Mild Pain (Pain Scale 1-3) 02/16/19 04:30 03/18/19 04:29 02/16/19 04:31 Chlorhexidine Gluconate (Stephanie-Hex 2%) 1 applic DAILY@2000 TOPIC 02/19/19 20:00 03/21/19 19:59 02/23/19 20:16 Dextrose (Dextrose 50%) 25 ml Q30M PRN IV Hypoglycemia 02/15/19 22:15 03/16/19 16:14 Dextrose (Dextrose 50%) 50 ml Q30M PRN IV Hypoglycemia 02/15/19 22:15 03/16/19 16:14 02/16/19 06:32 Fluconazole/ Sodium Chloride 200 ml @ 200 mls/hr Q24H IV 02/20/19 15:00 02/27/19 14:59 02/24/19 15:23 Lactobacillus Acidophilus (Culturelle) 1 tab TWICE A DAY ORAL 02/24/19 18:00 03/26/19 17:59 Lansoprazole (Prevacid) 30 mg BID NG 02/24/19 18:00 03/26/19 17:59 Levetiracetam 100 ml @ 400 mls/hr Q12HR IVPB 02/19/19 09:00 03/21/19 08:59 02/24/19 09:18 Midodrine (Pro-Amatine) 2.5 mg THREE TIMES A DAY ORAL 02/24/19 15:00 03/26/19 14:59 02/24/19 15:22 Norepinephrine Bitartrate 8 mg/ Dextrose 508 ml @ 0 mls/hr Q24H IV 02/16/19 09:30 03/18/19 09:29 02/23/19 09:37 Ondansetron HCl (Zofran) 4 mg Q6H PRN IVP Nausea & Vomiting 02/16/19 01:00 03/16/19 12:59 Phenylephrine HCl 50 mg/Dextrose 250 ml @ 0 mls/hr Q24H IV 02/16/19 22:30 03/18/19 22:29 Piperacillin Sod/ Tazobactam Sod 3.375 gm/Sodium Chloride 110 ml @ 27.5 mls/hr Q8HR IVPB 02/24/19 22:00 03/03/19 21:59 Potassium Chloride 100 ml @ 100 mls/hr Q1HR IVPB 02/24/19 11:00 02/24/19 16:59 02/24/19 14:45 Spironolactone (Aldactone) 50 mg EVERY 12 HOURS NG 02/24/19 21:00 03/24/19 20:59 Thiamine HCl (Vitamin B1) 100 mg DAILY NG 02/25/19 09:00 03/27/19 08:59 Vancomycin HCl (Vanco rx to dose) 1 ea DAILY PRN MISC Per rx protocol 02/16/19 09:00 03/17/19 12:59 Vancomycin HCl/ Dextrose 275 ml @ 183.333 mls/hr Q12HR@1000,2200 IVPB 02/20/19 10:00 02/25/19 09:59 02/24/19 11:10 Vasopressin 100 units/Sodium Chloride 100 ml @ 0 mls/hr Q24H IV 02/16/19 08:15 03/18/19 08:14 02/16/19 08:15 Barry Plummer MD Feb 24, 2019 16:05
--- NOTE | 2019-02-24 16:10 | NUR ---
NURSE NOTES: Ammonia blood sample sent to laboratory for analysis, patient eyes are noted to be yellowish, jaundice, patient remains responsive to tactile stimulus and is able to move hands and head. will continue plan of care.
--- NOTE | 2019-02-24 16:11 | General Progress Note ---
Assessment/Plan Status: not improved, unchanged Assessment/Plan: Assessment - Resp failure - diarrhea - UGIB - abnormal LFT, negative hepatitis serologies - h/o EtOH, possible early cirrhosis - sepsis, leukocytosis - cholelithiasis Recommendations - change TF to vital - add probiotics - monitor stool output - abx per ID - supportive care - EGD once stable Subjective Allergies: Coded Allergies: No Known Allergies (Unverified , 02/10/15) Subjective above noted seen in ICU intubated sister at bedside d/w RN diarrhea persists tolerating TF Objective Last 24 Hour Vital Signs Date Time Temp Pulse Resp B/P (MAP) Pulse Ox O2 Delivery O2 Flow Rate FiO2 02/24/19 15:00 103 32 117/73 (88) 97 02/24/19 14:51 95 30 50 02/24/19 14:00 93 30 108/64 (79) 98 02/24/19 13:00 96 32 105/70 (82) 98 02/24/19 12:50 93 33 50 02/24/19 12:00 Mechanical Ventilator 02/24/19 12:00 98.0 98 33 97/63 (74) 99 02/24/19 12:00 98 02/24/19 12:00 50 02/24/19 11:00 108 28 95/64 (74) 94 02/24/19 10:52 103 30 50 02/24/19 10:00 114 27 113/71 (85) 97 02/24/19 09:30 109/68 02/24/19 09:01 106 33 50 02/24/19 09:00 105 33 95/59 (71) 94 02/24/19 08:00 50 02/24/19 08:00 98.3 113 33 124/68 (86) 93 02/24/19 08:00 116 02/24/19 08:00 Mechanical Ventilator 02/24/19 07:00 115 29 121/87 (98) 98 02/24/19 06:56 95 02/24/19 06:52 116 40 50 02/24/19 06:00 112 29 124/58 (80) 98 02/24/19 05:00 98 27 40 02/24/19 05:00 115 29 126/67 (86) 98 02/24/19 04:00 104 02/24/19 04:00 Mechanical Ventilator 02/24/19 04:00 40 02/24/19 04:00 98.6 104 29 96/55 (69) 98 02/24/19 03:00 100/58 02/24/19 03:00 93 29 97/52 (67) 97 02/24/19 02:37 89 26 40 02/24/19 02:30 85 28 105/59 (74) 97 02/24/19 02:00 106/59 02/24/19 02:00 87 28 102/59 (73) 97 02/24/19 01:30 86 28 101/60 (74) 98 02/24/19 01:01 86 27 40 02/24/19 01:00 101/68 02/24/19 01:00 78 29 99/71 (80) 95 02/24/19 00:30 88 29 105/63 (77) 97 02/24/19 00:00 Mechanical Ventilator 02/24/19 00:00 85 02/24/19 00:00 40 02/24/19 00:00 99.0 85 28 101/65 (77) 97 02/24/19 00:00 101/65 02/23/19 23:30 88 28 94/56 (69) 97 02/23/19 23:00 88 27 92/53 (66) 97 02/23/19 23:00 92/53 02/23/19 22:54 91 26 40 02/23/19 22:30 86 26 103/63 (76) 99 02/23/19 22:30 83 94/58 02/23/19 22:00 88 27 94/58 (70) 98 02/23/19 22:00 94/58 02/23/19 21:30 88 29 93/59 (70) 97 02/23/19 21:20 98 30 40 02/23/19 21:00 90 28 100/66 (77) 97 02/23/19 21:00 100/66 02/23/19 20:30 90 26 95/61 (72) 97 02/23/19 20:00 Mechanical Ventilator 02/23/19 20:00 89/57 02/23/19 20:00 98.6 90 26 89/57 (68) 96 02/23/19 20:00 40 02/23/19 20:00 90 02/23/19 19:30 92 30 90/58 (69) 98 02/23/19 19:00 92 33 105/65 (78) 96 02/23/19 19:00 105/65 02/23/19 18:54 90 32 40 02/23/19 18:30 92 30 96/61 (73) 96 02/23/19 18:00 93 35 94/58 (70) 96 02/23/19 18:00 94/60 02/23/19 17:30 95 33 104/63 (77) 96 02/23/19 17:19 93 29 40 02/23/19 17:00 94/60 02/23/19 17:00 88 26 104/70 (81) 100 02/23/19 16:30 84 26 101/61 (74) 100 Intake and Output 02/23/19 02/24/19 19:00 07:00 Intake Total 1859.795 ml 837.98 ml Output Total 2000 ml 3330 ml Balance -140.205 ml -2492.02 ml Free Water 90 ml IV Total 1379.795 ml 267.98 ml Tube Feeding 480 ml 480 ml Output Urine Total 2000 ml 3130 ml Stool Total 200 ml # Voids 5 Laboratory Tests 02/24/19 04:20: White Blood Count 32.0*H, Red Blood Count 2.45L, Hemoglobin 7.9L, Hematocrit 23.2L, Mean Corpuscular Volume 95, Mean Corpuscular Hemoglobin 32.1H, Mean Corpuscular Hemoglobin Concent 33.9, Red Cell Distribution Width 15.8H, Platelet Count 360, Mean Platelet Volume 7.1, Neutrophils (%) (Auto) , Lymphocytes (%) (Auto) , Monocytes (%) (Auto) , Eosinophils (%) (Auto) , Basophils (%) (Auto) , Differential Total Cells Counted 100, Neutrophils % ( Manual) 78H, Lymphocytes % (Manual) 13L, Monocytes % (Manual) 4, Eosinophils % ( Manual) 4H, Basophils % (Manual) 1, Band Neutrophils 0, Platelet Estimate Adequate, Platelet Morphology Normal, Hypochromasia 3+, Anisocytosis 1+, Spherocytes 2+, Sodium Level 141, Potassium Level 2.7*L, Chloride Level 106, Carbon Dioxide Level 26, Anion Gap 8, Blood Urea Nitrogen 5L, Creatinine 0.7, Estimat Glomerular Filtration Rate > 60, Glucose Level 92, Calcium Level 7.7L, Phosphorus Level 3.2, Magnesium Level 1.9, Total Bilirubin 7.0H, Direct Bilirubin 5.9H, Aspartate Amino Transf (AST/SGOT) 225H, Alanine Aminotransferase (ALT/SGPT) 73, Alkaline Phosphatase 257H, Total Protein 5.1L, Albumin 1.3L, Globulin 3.8, Albumin/Globulin Ratio 0.3L Height (Feet): 5 Height (Inches): 5.00 Weight (Pounds): 188 Objective Debilitated NCAT , (+) ETT and feeding tube supple CTA RRR abd soft, slightly distended no edema Madhav Goldberg MD Feb 24, 2019 16:11
--- NOTE | 2019-02-24 16:47 | Hematology/Onc Progress Note ---
Assessment/Plan Assessment/Plan # Bicytopenia with anemia likely due to Gi bleed -- stool occult blood +, requires further eval with gi, also with etoh withdrawal, also can be related to meds/abx --> anemia panel has been reviewed and results are acd --> peripheral smear reviewed and not noted to have blasts --> wbc remains elevated --> started on folate 1mg po daily (LOW FOLATE) --> Flow cytometry shows no evidence of b-lymphoproliferative disorder --> Hep panel negative # Anemia of chronic disease, per anemia panel --> hgb trend 8-->7-->8-->9-->8.6-->7.7-->7.9 --> may require gi eval when more stable with scope (EGD) --> transfuse if hb <7 --> cont folic acid and thiamine # Sinus tachycardia up to 170s. No evidence of acute myocardial infarction . --> This is likely due to sepsis and anemia, alcohol withdrawal --> Echo Nl EF 60% # Leukocytosis due to Septic shock and severe Lactic acidosis on Levophed and broad-spectrum IV antibiotics. --> per ID care, continue abx --> pressor as needed --> vanc/zosyn, flucon --> Hgb trend: 34.9 # Troponin leak, type 2. --> per cards # Respiratory failure on the vent. Failed weaning --> sbt trial per pulm --> on vent # ETOH withdrawal # Seizures with noncompliance Greatly appreciate consultation. Subjective ROS Limited/Unobtainable: Yes Allergies: Coded Allergies: No Known Allergies (Unverified , 02/10/15) Subjective 02/20: intubated, counts are better, on vent, sbt in process, no f/c, mag low 02/21: endoscopy on hold at this time, bloody stool, plt better, on abx 02/22: no events reported, remains intubated, no bleeding, plt better, k is low, repleted\ 02/23: remains in icu, letargic, flow cytometry showed no evidence of b- lymphoproliferative disorder, c-diif negative, labs reviewed, remains on levo 02/24: in icu, on vent, wbc at 32, id made aware. Objective Objective Current Medications Medications (Trade) Dose Ordered Sig/Tonny Route PRN Reason Start Time Stop Time Status Last Admin Dose Admin Acetaminophen (Tylenol) 650 mg Q4H PRN ORAL Mild Pain (Pain Scale 1-3) 02/16/19 00:30 03/16/19 12:29 02/17/19 04:53 Acetaminophen (Tylenol) 650 mg Q4H PRN RECTAL Mild Pain (Pain Scale 1-3) 02/16/19 04:30 03/18/19 04:29 02/16/19 04:31 Chlorhexidine Gluconate (Stephanie-Hex 2%) 1 applic DAILY@2000 TOPIC 02/19/19 20:00 03/21/19 19:59 02/23/19 20:16 Dextrose (Dextrose 50%) 25 ml Q30M PRN IV Hypoglycemia 02/15/19 22:15 03/16/19 16:14 Dextrose (Dextrose 50%) 50 ml Q30M PRN IV Hypoglycemia 02/15/19 22:15 03/16/19 16:14 02/16/19 06:32 Lactobacillus Acidophilus (Culturelle) 1 tab TWICE A DAY ORAL 02/24/19 18:00 03/26/19 17:59 Lansoprazole (Prevacid) 30 mg BID NG 02/24/19 18:00 03/26/19 17:59 Levetiracetam 100 ml @ 400 mls/hr Q12HR IVPB 02/19/19 09:00 03/21/19 08:59 02/24/19 09:18 Midodrine (Pro-Amatine) 2.5 mg THREE TIMES A DAY ORAL 02/24/19 15:00 03/26/19 14:59 02/24/19 15:22 Norepinephrine Bitartrate 8 mg/ Dextrose 508 ml @ 0 mls/hr Q24H IV 02/16/19 09:30 03/18/19 09:29 02/23/19 09:37 Ondansetron HCl (Zofran) 4 mg Q6H PRN IVP Nausea & Vomiting 02/16/19 01:00 03/16/19 12:59 Phenylephrine HCl 50 mg/Dextrose 250 ml @ 0 mls/hr Q24H IV 02/16/19 22:30 03/18/19 22:29 Piperacillin Sod/ Tazobactam Sod 3.375 gm/Sodium Chloride 110 ml @ 27.5 mls/hr Q8HR IVPB 02/24/19 22:00 03/03/19 21:59 Potassium Chloride 100 ml @ 100 mls/hr Q1HR IVPB 02/24/19 11:00 02/24/19 16:59 02/24/19 15:57 Spironolactone (Aldactone) 50 mg EVERY 12 HOURS NG 02/24/19 21:00 03/24/19 20:59 Thiamine HCl (Vitamin B1) 100 mg DAILY NG 02/25/19 09:00 03/27/19 08:59 Vancomycin HCl (Vanco rx to dose) 1 ea DAILY PRN MISC Per rx protocol 02/16/19 09:00 03/17/19 12:59 Vancomycin HCl/ Dextrose 275 ml @ 183.333 mls/hr Q12HR@1000,2200 IVPB 02/24/19 22:00 03/01/19 21:59 Vasopressin 100 units/Sodium Chloride 100 ml @ 0 mls/hr Q24H IV 02/16/19 08:15 03/18/19 08:14 02/16/19 08:15 Last 24 Hour Vital Signs Date Time Temp Pulse Resp B/P (MAP) Pulse Ox O2 Delivery O2 Flow Rate FiO2 02/24/19 15:00 103 32 117/73 (88) 97 02/24/19 14:51 95 30 50 02/24/19 14:00 93 30 108/64 (79) 98 02/24/19 13:00 96 32 105/70 (82) 98 02/24/19 12:50 93 33 50 02/24/19 12:00 Mechanical Ventilator 02/24/19 12:00 98.0 98 33 97/63 (74) 99 02/24/19 12:00 98 02/24/19 12:00 50 02/24/19 11:00 108 28 95/64 (74) 94 02/24/19 10:52 103 30 50 02/24/19 10:00 114 27 113/71 (85) 97 02/24/19 09:30 109/68 02/24/19 09:01 106 33 50 02/24/19 09:00 105 33 95/59 (71) 94 02/24/19 08:00 50 02/24/19 08:00 98.3 113 33 124/68 (86) 93 02/24/19 08:00 116 02/24/19 08:00 Mechanical Ventilator 02/24/19 07:00 115 29 121/87 (98) 98 02/24/19 06:56 95 02/24/19 06:52 116 40 50 02/24/19 06:00 112 29 124/58 (80) 98 02/24/19 05:00 98 27 40 02/24/19 05:00 115 29 126/67 (86) 98 02/24/19 04:00 104 02/24/19 04:00 Mechanical Ventilator 02/24/19 04:00 40 02/24/19 04:00 98.6 104 29 96/55 (69) 98 02/24/19 03:00 100/58 02/24/19 03:00 93 29 97/52 (67) 97 02/24/19 02:37 89 26 40 02/24/19 02:30 85 28 105/59 (74) 97 02/24/19 02:00 106/59 02/24/19 02:00 87 28 102/59 (73) 97 02/24/19 01:30 86 28 101/60 (74) 98 02/24/19 01:01 86 27 40 02/24/19 01:00 101/68 02/24/19 01:00 78 29 99/71 (80) 95 02/24/19 00:30 88 29 105/63 (77) 97 02/24/19 00:00 Mechanical Ventilator 02/24/19 00:00 85 02/24/19 00:00 40 02/24/19 00:00 99.0 85 28 101/65 (77) 97 02/24/19 00:00 101/65 02/23/19 23:30 88 28 94/56 (69) 97 02/23/19 23:00 88 27 92/53 (66) 97 02/23/19 23:00 92/53 02/23/19 22:54 91 26 40 02/23/19 22:30 86 26 103/63 (76) 99 02/23/19 22:30 83 94/58 02/23/19 22:00 88 27 94/58 (70) 98 02/23/19 22:00 94/58 02/23/19 21:30 88 29 93/59 (70) 97 02/23/19 21:20 98 30 40 7/19/19 21:00 90 28 100/66 (77) 97 02/23/19 21:00 100/66 02/23/19 20:30 90 26 95/61 (72) 97 02/23/19 20:00 Mechanical Ventilator 02/23/19 20:00 89/57 02/23/19 20:00 98.6 90 26 89/57 (68) 96 02/23/19 20:00 40 02/23/19 20:00 90 02/23/19 19:30 92 30 90/58 (69) 98 02/23/19 19:00 92 33 105/65 (78) 96 02/23/19 19:00 105/65 02/23/19 18:54 90 32 40 02/23/19 18:30 92 30 96/61 (73) 96 02/23/19 18:00 93 35 94/58 (70) 96 02/23/19 18:00 94/60 02/23/19 17:30 95 33 104/63 (77) 96 02/23/19 17:19 93 29 40 02/23/19 17:00 94/60 02/23/19 17:00 88 26 104/70 (81) 100 02/23/19 16:30 84 26 101/61 (74) 100 02/23/19 16:00 Mechanical Ventilator 02/23/19 16:00 40 02/23/19 16:00 101/61 02/23/19 16:00 89 02/23/19 16:00 98.3 95 26 98/59 (72) 100 02/23/19 15:30 90 26 92/56 (68) 97 02/23/19 15:00 98/59 02/23/19 15:00 95 26 102/61 (75) 97 02/23/19 14:32 91 30 40 02/23/19 14:30 102 20 102/51 (68) 97 02/23/19 14:00 103/58 02/23/19 14:00 93 29 96/56 (69) 97 02/23/19 13:30 94 29 92/57 (69) 97 02/23/19 13:00 92 29 93/60 (71) 98 02/23/19 13:00 93/60 02/23/19 12:48 94 28 40 02/23/19 12:30 98.3 94 29 103/53 (70) 98 02/23/19 12:00 84/52 02/23/19 12:00 Mechanical Ventilator 02/23/19 12:00 95 02/23/19 12:00 94 29 84/52 (63) 98 02/23/19 12:00 40 02/23/19 11:30 97 32 96/55 (69) 98 02/23/19 11:03 107/59 02/23/19 11:00 105 39 107/59 (75) 96 02/23/19 10:30 110/69 02/23/19 10:30 103 37 112/62 (79) 97 02/23/19 10:20 102 27 40 02/23/19 10:15 96 25 110/69 (83) 95 02/23/19 10:00 110/69 02/23/19 10:00 94 22 92/51 (65) 96 02/23/19 09:45 94 27 99/62 (74) 99 02/23/19 09:37 96/65 02/23/19 09:30 94 26 96/65 (75) 97 02/23/19 09:15 94 25 97/64 (75) 95 02/23/19 09:00 96 26 87/54 (65) 100 02/23/19 09:00 97/64 02/23/19 08:45 96 27 102/71 (81) 96 02/23/19 08:45 102 33 40 02/23/19 08:30 96 25 96/57 (70) 94 02/23/19 08:15 96 27 95/59 (71) 98 02/23/19 08:00 97 02/23/19 08:00 40 02/23/19 08:00 95/59 02/23/19 08:00 97.6 95 26 97/66 (76) 98 02/23/19 08:00 Mechanical Ventilator 02/23/19 07:45 95 26 100/62 (75) 94 02/23/19 07:30 93 23 109/69 (82) 96 02/23/19 07:16 92 27 40 02/23/19 07:00 93 26 106/75 (85) 99 02/23/19 07:00 106/75 02/23/19 06:30 92 26 101/60 (74) 97 7/19/19 06:00 107/69 02/23/19 06:00 93 30 107/69 (82) 99 02/23/19 05:30 89 28 113/79 (90) 98 02/23/19 05:06 85 28 40 02/23/19 05:00 95 26 116/65 (82) 97 02/23/19 05:00 116/65 02/23/19 04:30 95 34 114/74 (87) 100 02/23/19 04:00 Mechanical Ventilator 02/23/19 04:00 40 02/23/19 04:00 109/68 02/23/19 04:00 98.7 88 30 109/68 (82) 100 02/23/19 03:30 94 33 115/68 (84) 99 02/23/19 03:08 95 02/23/19 03:00 124/96 02/23/19 03:00 96 26 124/78 (93) 96 02/23/19 02:36 89 26 40 02/23/19 02:30 94 26 103/66 (78) 98 02/23/19 02:00 92 26 111/73 (86) 97 02/23/19 01:30 94 26 100/62 (75) 97 02/23/19 01:10 104 38 40 02/23/19 01:00 105 34 113/70 (84) 95 02/23/19 01:00 113/70 02/23/19 00:30 96 29 107/64 (78) 98 02/23/19 00:00 98.5 96 30 100/65 (77) 98 02/23/19 00:00 40 02/23/19 00:00 Mechanical Ventilator 02/23/19 00:00 100/65 02/22/19 23:30 99 34 111/70 (84) 97 02/22/19 23:06 96 02/22/19 23:00 102 36 103/61 (75) 97 02/22/19 23:00 103/61 02/22/19 22:49 111 38 40 02/22/19 22:30 100 31 109/76 (87) 99 18 22:30 110 109/76 02/22/19 22:00 108 32 109/71 (84) 95 02/22/19 22:00 109/71 02/22/19 21:30 112 37 108/68 (81) 95 02/22/19 21:00 110 34 106/72 (83) 95 02/22/19 21:00 106/72 02/22/19 20:35 108 39 40 02/22/19 20:30 110 36 111/71 (84) 94 02/22/19 20:00 40 19 20:00 102/62 02/22/19 20:00 98.5 107 34 102/62 (75) 96 02/22/19 20:00 Mechanical Ventilator 02/22/19 19:30 109 39 104/69 (81) 96 02/22/19 19:17 114 02/22/19 19:04 121 35 40 02/22/19 19:00 116 39 115/71 (86) 94 02/22/19 19:00 104/66 02/22/19 18:30 113 39 111/74 (86) 96 02/22/19 18:00 112 38 111/68 (82) 93 02/22/19 18:00 108/80 02/22/19 17:30 108 37 114/64 (81) 96 02/22/19 17:08 106 37 40 02/22/19 17:00 105 36 107/71 (83) 98 02/22/19 17:00 112/85 Intake and Output 02/23/19 02/24/19 19:00 07:00 Intake Total 1859.795 ml 837.98 ml Output Total 2000 ml 3330 ml Balance -140.205 ml -2492.02 ml Free Water 90 ml IV Total 1379.795 ml 267.98 ml Tube Feeding 480 ml 480 ml Output Urine Total 2000 ml 3130 ml Stool Total 200 ml # Voids 5 Labs Test 02/21/19 21:10 02/22/19 03:46 02/22/19 14:05 02/22/19 17:50 Vancomycin Level Trough 15.3 ug/mL (5.0-12.0) White Blood Count 33.6 K/UL (4.8-10.8) 35.1 K/UL (4.8-10.8) Red Blood Count 2.65 M/UL (4.70-6.10) 2.60 M/UL (4.70-6.10) Hemoglobin 8.6 G/DL (14.2-18.0) 8.3 G/DL (14.2-18.0) Hematocrit 25.3 % (42.0-52.0) 24.3 % (42.0-52.0) Mean Corpuscular Volume 96 FL (80-99) 93 FL (80-99) Mean Corpuscular Hemoglobin 32.4 PG (27.0-31.0) 31.9 PG (27.0-31.0) Mean Corpuscular Hemoglobin Concent 33.9 G/DL (32.0-36.0) 34.1 G/DL (32.0-36.0) Red Cell Distribution Width 15.2 % (11.6-14.8) 14.4 % (11.6-14.8) Platelet Count 283 K/UL (150-450) 325 K/UL (150-450) Mean Platelet Volume 8.6 FL (6.5-10.1) 7.4 FL (6.5-10.1) Neutrophils (%) (Auto) % (45.0-75.0) % (45.0-75.0) Lymphocytes (%) (Auto) % (20.0-45.0) % (20.0-45.0) Monocytes (%) (Auto) % (1.0-10.0) % (1.0-10.0) Eosinophils (%) (Auto) % (0.0-3.0) % (0.0-3.0) Basophils (%) (Auto) % (0.0-2.0) % (0.0-2.0) Differential Total Cells Counted 100 100 Neutrophils % (Manual) 88 % (45-75) 85 % (45-75) Lymphocytes % (Manual) 5 % (20-45) 7 % (20-45) Monocytes % (Manual) 7 % (1-10) 4 % (1-10) Eosinophils % (Manual) 0 % (0-3) 1 % (0-3) Basophils % (Manual) 0 % (0-2) 0 % (0-2) Band Neutrophils 0 % (0-8) 3 % (0-8) Platelet Estimate Adequate Adequate Platelet Morphology Normal Normal Hypochromasia 2+ Anisocytosis 1+ 1+ Spherocytes 1+ Sodium Level 140 MMOL/L (136-145) Potassium Level 2.7 MMOL/L (3.5-5.1) Chloride Level 107 MMOL/L (98-107) Carbon Dioxide Level 23 MMOL/L (21-32) Anion Gap 10 mmol/L (5-15) Blood Urea Nitrogen 7 mg/dL (7-18) Creatinine 0.8 MG/DL (0.55-1.30) Estimat Glomerular Filtration Rate > 60 mL/min (>60) Glucose Level 139 MG/DL (74-106) Calcium Level 7.5 MG/DL (8.5-10.1) Phosphorus Level 2.9 MG/DL (2.5-4.9) Magnesium Level 2.0 MG/DL (1.8-2.4) Total Bilirubin 6.1 MG/DL (0.2-1.0) Direct Bilirubin 5.0 MG/DL (0.0-0.3) Aspartate Amino Transf (AST/SGOT) 204 U/L (15-37) Alanine Aminotransferase (ALT/SGPT) 67 U/L (12-78) Alkaline Phosphatase 249 U/L (46-116) Total Protein 4.9 G/DL (6.4-8.2) Albumin 1.4 G/DL (3.4-5.0) Globulin 3.5 g/dL Albumin/Globulin Ratio 0.4 (1.0-2.7) Arterial Blood pH 7.490 (7.350-7.450) Arterial Blood Partial Pressure CO2 32.4 mmHg (35.0-45.0) Arterial Blood Partial Pressure O2 99.6 mmHg (75.0-100.0) Arterial Blood HCO3 24.2 mmol/L (22.0-26.0) Arterial Blood Oxygen Saturation 97.2 % (95-100) Arterial Blood Base Excess 1.2 (-2-2) Cesar Test Positive Polychromasia 1+ Macrocytosis 1+ Prothrombin Time 15.6 SEC (9.30-11.50) Prothromb Time International Ratio 1.5 (0.9-1.1) Test 02/23/19 04:05 02/24/19 04:20 02/24/19 16:00 White Blood Count 34.9 K/UL (4.8-10.8) 32.0 K/UL (4.8-10.8) Red Blood Count 2.41 M/UL (4.70-6.10) 2.45 M/UL (4.70-6.10) Hemoglobin 7.7 G/DL (14.2-18.0) 7.9 G/DL (14.2-18.0) Hematocrit 23.1 % (42.0-52.0) 23.2 % (42.0-52.0) Mean Corpuscular Volume 96 FL (80-99) 95 FL (80-99) Mean Corpuscular Hemoglobin 31.8 PG (27.0-31.0) 32.1 PG (27.0-31.0) Mean Corpuscular Hemoglobin Concent 33.2 G/DL (32.0-36.0) 33.9 G/DL (32.0-36.0) Red Cell Distribution Width 15.1 % (11.6-14.8) 15.8 % (11.6-14.8) Platelet Count 335 K/UL (150-450) 360 K/UL (150-450) Mean Platelet Volume 7.6 FL (6.5-10.1) 7.1 FL (6.5-10.1) Neutrophils (%) (Auto) % (45.0-75.0) % (45.0-75.0) Lymphocytes (%) (Auto) % (20.0-45.0) % (20.0-45.0) Monocytes (%) (Auto) % (1.0-10.0) % (1.0-10.0) Eosinophils (%) (Auto) % (0.0-3.0) % (0.0-3.0) Basophils (%) (Auto) % (0.0-2.0) % (0.0-2.0) Differential Total Cells Counted 100 100 Neutrophils % (Manual) 81 % (45-75) 78 % (45-75) Lymphocytes % (Manual) 10 % (20-45) 13 % (20-45) Monocytes % (Manual) 3 % (1-10) 4 % (1-10) Eosinophils % (Manual) 1 % (0-3) 4 % (0-3) Basophils % (Manual) 0 % (0-2) 1 % (0-2) Band Neutrophils 5 % (0-8) 0 % (0-8) Nucleated Red Blood Cells 1 /100 WBC Platelet Estimate Adequate Adequate Platelet Morphology Normal Normal Polychromasia 1+ Hypochromasia 1+ 3+ Anisocytosis 1+ 1+ Sodium Level 142 MMOL/L (136-145) 141 MMOL/L (136-145) Potassium Level 3.2 MMOL/L (3.5-5.1) 2.7 MMOL/L (3.5-5.1) Chloride Level 109 MMOL/L (98-107) 106 MMOL/L (98-107) Carbon Dioxide Level 24 MMOL/L (21-32) 26 MMOL/L (21-32) Anion Gap 9 mmol/L (5-15) 8 mmol/L (5-15) Blood Urea Nitrogen 6 mg/dL (7-18) 5 mg/dL (7-18) Creatinine 0.7 MG/DL (0.55-1.30) 0.7 MG/DL (0.55-1.30) Estimat Glomerular Filtration Rate > 60 mL/min (>60) > 60 mL/min (>60) Glucose Level 113 MG/DL (74-106) 92 MG/DL (74-106) Calcium Level 7.6 MG/DL (8.5-10.1) 7.7 MG/DL (8.5-10.1) Phosphorus Level 2.3 MG/DL (2.5-4.9) 3.2 MG/DL (2.5-4.9) Magnesium Level 1.6 MG/DL (1.8-2.4) 1.9 MG/DL (1.8-2.4) Total Bilirubin 6.8 MG/DL (0.2-1.0) 7.0 MG/DL (0.2-1.0) Direct Bilirubin 5.6 MG/DL (0.0-0.3) 5.9 MG/DL (0.0-0.3) Aspartate Amino Transf (AST/SGOT) 222 U/L (15-37) 225 U/L (15-37) Alanine Aminotransferase (ALT/SGPT) 76 U/L (12-78) 73 U/L (12-78) Alkaline Phosphatase 261 U/L (46-116) 257 U/L (46-116) C-Reactive Protein, Quantitative 6.2 mg/dL (0.00-0.90) Pro-B-Type Natriuretic Peptide 318 pg/mL (0-125) Total Protein 4.5 G/DL (6.4-8.2) 5.1 G/DL (6.4-8.2) Albumin 1.4 G/DL (3.4-5.0) 1.3 G/DL (3.4-5.0) Globulin 3.1 g/dL 3.8 g/dL Albumin/Globulin Ratio 0.5 (1.0-2.7) 0.3 (1.0-2.7) Spherocytes 2+ Ammonia 47 umol/L (11-32) Height (Feet): 5 Height (Inches): 5.00 Weight (Pounds): 188 Objective Gen: NAD HEENT: atraumatic, other - OGT Lungs: clear, VENT++ Heart: HR/BP unstable Abdomen: soft, non-tender, active bowel sounds Extremities: no cce, L femoral cath+ Robert Johnston MD Feb 24, 2019 16:47
[2019-02-24] MEDS: Lactobacillus-GG tablet ORAL SCH (17:55)
[2019-02-24] MEDS ORDERED: Lactobacillus-GG tablet ORAL SCH (18:00)
--- NOTE | 2019-02-24 18:06 | Pulmonolgy Critical Care Note ---
Critical Care - Asmt/Plan Assessment/Plan: Problems: (1) Seizure disorder (2) Endotracheally intubated (3) Septic shock (4) Sepsis (5) Sinus tachycardia (6) Lactic acid acidosis (7) High anion gap metabolic acidosis (8) STEFANI (acute kidney injury) (9) Abnormal LFTs (10) Coffee ground emesis (11) Gastrointestinal bleed (12) Altered mental status (13) Alcohol withdrawal seizure (14) Ventilator dependent Assessment/Plan: Continue ventilatory support/settings reviewed SBT when stable Monitor volumes, PRN lasix Replete K, phos and Mag Titrate NE Continue Vanco/Zosyn/Flucon per ID, F/U Cx's F/U GI recs, PPI, EGD when stable, ? 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 Discussed with: nurses Critical Care - Objective Last 24 Hour Vital Signs Date Time Temp Pulse Resp B/P (MAP) Pulse Ox O2 Delivery O2 Flow Rate FiO2 02/24/19 18:00 93 28 107/66 (80) 97 02/24/19 17:00 97 34 112/73 (86) 96 02/24/19 16:51 87 30 50 02/24/19 16:00 50 02/24/19 16:00 102 02/24/19 16:00 Mechanical Ventilator 02/24/19 16:00 98.1 96 34 110/70 (83) 96 02/24/19 15:00 103 32 117/73 (88) 97 02/24/19 14:51 95 30 50 02/24/19 14:00 93 30 108/64 (79) 98 02/24/19 13:00 96 32 105/70 (82) 98 02/24/19 12:50 93 33 50 02/24/19 12:00 Mechanical Ventilator 02/24/19 12:00 98.0 98 33 97/63 (74) 99 02/24/19 12:00 98 02/24/19 12:00 50 02/24/19 11:00 108 28 95/64 (74) 94 02/24/19 10:52 103 30 50 02/24/19 10:00 114 27 113/71 (85) 97 02/24/19 09:30 109/68 02/24/19 09:01 106 33 50 02/24/19 09:00 105 33 95/59 (71) 94 02/24/19 08:00 50 02/24/19 08:00 98.3 113 33 124/68 (86) 93 02/24/19 08:00 116 02/24/19 08:00 Mechanical Ventilator 02/24/19 07:00 115 29 121/87 (98) 98 02/24/19 06:56 95 02/24/19 06:52 116 40 50 02/24/19 06:00 112 29 124/58 (80) 98 02/24/19 05:00 98 27 40 02/24/19 05:00 115 29 126/67 (86) 98 02/24/19 04:00 104 02/24/19 04:00 Mechanical Ventilator 02/24/19 04:00 40 02/24/19 04:00 98.6 104 29 96/55 (69) 98 02/24/19 03:00 100/58 02/24/19 03:00 93 29 97/52 (67) 97 02/24/19 02:37 89 26 40 02/24/19 02:30 85 28 105/59 (74) 97 02/24/19 02:00 106/59 02/24/19 02:00 87 28 102/59 (73) 97 02/24/19 01:30 86 28 101/60 (74) 98 02/24/19 01:01 86 27 40 02/24/19 01:00 101/68 02/24/19 01:00 78 29 99/71 (80) 95 02/24/19 00:30 88 29 105/63 (77) 97 02/24/19 00:00 Mechanical Ventilator 02/24/19 00:00 85 02/24/19 00:00 40 02/24/19 00:00 99.0 85 28 101/65 (77) 97 02/24/19 00:00 101/65 02/23/19 23:30 88 28 94/56 (69) 97 02/23/19 23:00 88 27 92/53 (66) 97 02/23/19 23:00 92/53 02/23/19 22:54 91 26 40 02/23/19 22:30 86 26 103/63 (76) 99 02/23/19 22:30 83 94/58 02/23/19 22:00 88 27 94/58 (70) 98 02/23/19 22:00 94/58 02/23/19 21:30 88 29 93/59 (70) 97 02/23/19 21:20 98 30 40 02/23/19 21:00 90 28 100/66 (77) 97 02/23/19 21:00 100/66 02/23/19 20:30 90 26 95/61 (72) 97 02/23/19 20:00 Mechanical Ventilator 02/23/19 20:00 89/57 02/23/19 20:00 98.6 90 26 89/57 (68) 96 02/23/19 20:00 40 02/23/19 20:00 90 02/23/19 19:30 92 30 90/58 (69) 98 02/23/19 19:00 92 33 105/65 (78) 96 02/23/19 19:00 105/65 02/23/19 18:54 90 32 40 02/23/19 18:30 92 30 96/61 (73) 96 Status: somnolent Condition: critical Lungs: rhonchi Heart: HR/BP unstable Abdomen: soft, non-tender Extremities: edema Micro: Microbiology Date/Time Source Procedure Growth Status 02/22/19 19:32 Blood Blood Culture - Preliminary NO GROWTH AFTER 24 HOURS Resulted 02/22/19 19:31 Blood Blood Culture - Preliminary NO GROWTH AFTER 24 HOURS Resulted 02/22/19 23:55 Stool Clostridium difficile Toxin Assay - Final Complete Accucheck: 33 Blood Sugars: BS not controlled Critical Care - Subjective Condition: critical FI02: 50 Vent Support Breath Rate: 26 Vent Support Mode: AC Vent Tidal Volume: 500 Sputum Amount: Scant PEEP: 5.0 PIP: 31 Tube Feeding Amount: 40 I&O: Intake and Output 02/23/19 02/24/19 19:00 07:00 Intake Total 1859.795 ml 837.98 ml Output Total 2000 ml 3330 ml Balance -140.205 ml -2492.02 ml Free Water 90 ml IV Total 1379.795 ml 267.98 ml Tube Feeding 480 ml 480 ml Output Urine Total 2000 ml 3130 ml Stool Total 200 ml # Voids 5 Subjective: lethargic on the vent failed weaning 3 x today off pressors at ths time positive uop minimal secretions noted ET-Tube: 7.5 ET Position: 24 Radha Marx DO Feb 24, 2019 18:06
--- NOTE | 2019-02-24 19:00 | NUR ---
RESPIRATORY NOTE: RECEIVED PT ORALLY INTUBATED WITH 7.5 ETT AT 24 LL. ETT SECURE AND PATENT. PT CURRENT ON VENT SETTINGS: AC 26 VT500 PEEP +5 FIO2 50%. PT ROCIO CURRENT VENT SETTING WELL. SX SMALL THICK WHITE/CLEAR SECRETIONS. NO RESPIRATORY DISTRESS NOTED. VENT PLUGGED INTO RED OUTLET. ALARMS ON AND AUDIBLE. WILL CONTINUE MONITORING PT CLOSELY.
--- NOTE | 2019-02-24 19:30 | NUR ---
NURSE NOTES: Received report from ESHA Pinzon. Patient is alert and oriented. Able to follow commands and able to make needs known. ETT 03/31 noted. Vent setting AC 26, TV 500, FiO2 50% and Peep 5. OG tube is intact and running with Vital 1.2 AF at 40ml/hr. Rectal tube is intact and draining. Aguilar is intact and draining with yellow urine. Elevated HOB>30. Call light placed in easy reach. Will continue plan of care.
--- NOTE | 2019-02-24 19:33 | NUR ---
HAND-OFF: Report given to aniya Sweeney.
[2019-02-24] MEDS: Spironolactone 50mg tab NG SCH (20:26)
[2019-02-24] MEDS: Dyna-Hex 2% Top Sol 2oz TOPIC SCH (20:26)
--- NOTE | 2019-02-24 20:45 | Consultation ---
DATE OF CONSULTATION: 02/24/2019 CONSULTING PHYSICIAN: Jeremy Matta M.D. REFERRING PHYSICIAN: REASON FOR CONSULTATION: Evaluation of hematuria. HISTORY OF PRESENT ILLNESS: This is a 54-year-old male. He was originally admitted to the hospital because of the seizures and he was hypotensive. He has been in the intensive care unit. He has had urinary tract infection and sepsis. A few days ago, he had hematuria noted in his Aguilar catheter. The Aguilar was removed. The patient was voiding with a condom catheter. The urine did clear. Urology evaluation has been requested. Currently Aguilar has been reinserted. He has been draining urine, it has been grossly yellowish eneida. The patient is intubated. Most of the history was obtained from the chart. PAST MEDICAL HISTORY: Significant for above again history of seizure disorder, alcohol use. PAST SURGICAL HISTORY: Unknown. CURRENT MEDICATIONS: Reviewed. ALLERGIES: No allergies. PHYSICAL EXAMINATION: GENERAL: He is intubated. GENITOURINARY: Aguilar is in place, 16-[place]ris[place] three-way. Urine is yellowish eneida. No bleeding. LABORATORY DATA: His UA on admission showed white cells, many bacteria. At that time, he had a urine culture that showed E coli. He also had a blood culture that was E coli. His white count is now 32, hemoglobin 7.9, and platelets are 360. His BUN is 5 and creatinine 0.7. DIAGNOSTIC IMAGING STUDIES: The patient had an abdominal ultrasound which showed normal kidneys without evidence of hydronephrosis. He had a CT of the abdomen and pelvis angiogram. The kidneys were reported to be normal with no hydronephrosis. IMPRESSION: 1. Gross hematuria history, which is now resolved. 2. Urinary retention. 3. Probable neurogenic bladder. 4. Urinary tract infection history. 5. Sepsis history. PLAN/DISCUSSION: The patient is to be monitored clinically. He has a Aguilar catheter indwelling. Urine draining is yellowish eneida. No bleeding. It will be irrigated on a p.r.n. basis. He will be monitored clinically with antibiotics as ordered per recommendation of Infectious Diseases. Thank you for this consultation. Jeremy Matta M.D. DR: aGlen JOB#: [id number] CC:
--- NOTE | 2019-02-24 21:20 | NUR ---
NURSE NOTES: All due medications given as ordered. Repositioned patient and oral care provided.
[2019-02-24] MEDS: Vancomycin 275 ML IVPB SCH (21:52)
[2019-02-24] MEDS: Phenylephrine 50 MG in D5W 245 ML IV SCH (22:30)
--- NOTE | 2019-02-24 23:20 | NUR ---
NURSE NOTES: Repositioned patient. No distress/SOB noted. Will continue plan of care.
[2019-02-25] VITALS (24 sets, daily range): BP systolic 102–140; BP diastolic 72–83
--- NOTE | 2019-02-25 01:02 | NUR ---
NURSE NOTES: Patient is asking turning off the light and cover with extra blanket.
--- NOTE | 2019-02-25 03:20 | NUR ---
NURSE NOTES: Repositioned patient and oral suction provided.
--- NOTE | 2019-02-25 04:30 | NUR ---
NURSE NOTES: Bed bath given. Oral care provided.
[2019-02-25] MEDS: Piperacillin/Tazobactam 3.375 GM in NS 110 ML IVPB SCH (06:02)
[2019-02-25 06:19] LABS: HEMATOCRIT 25.8 % (42.0-52.0); HEMOGLOBIN 8.3 G/DL (14.2-18.0); MEAN CORPUSCULAR VOLUME 98 FL (80-99); PLATELET COUNT 410 K/UL (150-450); RED BLOOD COUNT 2.63 M/UL (4.70-6.10); RED CELL DISTRIBUTION WIDTH 16.8 % (11.6-14.8)
[2019-02-25 06:22] LABS: WHITE BLOOD COUNT 36.3 K/UL (4.8-10.8)
[2019-02-25 06:38] LABS: ALANINE AMINOTRANSFERASE 82 U/L (12-78); ALBUMIN 1.5 G/DL (3.4-5.0); ALBUMIN/GLOBULIN RATIO 0.3 (1.0-2.7); ALKALINE PHOSPHATASE 299 U/L (46-116); ANION GAP 7 mmol/L (5-15); ASPARTATE AMINO TRANSFERASE 257 U/L (15-37); BILIRUBIN,TOTAL 9.6 MG/DL (0.2-1.0); BLOOD UREA NITROGEN 4 mg/dL (7-18); CALCIUM 7.9 MG/DL (8.5-10.1); CARBON DIOXIDE 26 MMOL/L (21-32); CHLORIDE 106 MMOL/L (98-107); CREATININE 0.6 MG/DL (0.55-1.30); GAMMA GLUTAMYL TRANSPEPTIDASE 661 U/L (5-85); PHOSPHORUS 3.5 MG/DL (2.5-4.9); POTASSIUM 4.8 MMOL/L (3.5-5.1); SODIUM 138 MMOL/L (136-145)
[2019-02-25 06:44] LABS: BILIRUBIN,DIRECT 7.1 MG/DL (0.0-0.3)
--- NOTE | 2019-02-25 06:48 | NUR ---
NURSE NOTES: Called Dr. Plummer and left message regarding WBC level.
--- NOTE | 2019-02-25 07:25 | NUR ---
HAND-OFF: Report given to ESHA Ponce. Endorsed plan of care.
--- NOTE | 2019-02-25 07:50 | NUR ---
RESPIRATORY NOTE: Received pt. on 840 vent. Vent settings are: A/C rate of 26, Vt 500, FI02 50%, PEEP +5. Pt. sP02 @ 98%. Ambu bag @ BS. Vent plugged on red outlet. Will continue to monitor pt.
[2019-02-25] MEDS: Vasopressin 100 UNITS in NS 95 ML IV SCH (08:15)
[2019-02-25] MEDS: levETIRAcetam 500mg/NS100ml 100 ML IVPB SCH ×2 (08:38→20:29)
[2019-02-25] MEDS: Thiamine 100mg tab NG SCH (08:39)
[2019-02-25] MEDS: Lactobacillus-GG tablet ORAL SCH ×3 (08:39→20:30)
[2019-02-25] MEDS: Spironolactone 50mg tab NG SCH ×2 (08:39→20:30)
--- NOTE | 2019-02-25 08:49 | NUR ---
NURSE NOTES: Received telephone order from Dr. Plummer. Charge nurse made aware.
--- NOTE | 2019-02-25 09:01 | Urology Progress Note ---
Assessment/Plan Status: not improved, unchanged Assessment/Plan: 1. Gross hematuria history, improved. 2. Urinary retention. 3. Probable neurogenic bladder. 4. Urinary tract infection history. 5. Sepsis history. monitor clinically delgado indwelling hand irrigated and do PRN abx as ordered f/u on blood cx renal fxn stable Subjective Allergies: Coded Allergies: No Known Allergies (Unverified , 02/10/15) Subjective all noted Objective Last 24 Hour Vital Signs Date Time Temp Pulse Resp B/P (MAP) Pulse Ox O2 Delivery O2 Flow Rate FiO2 02/25/19 08:00 Mechanical Ventilator 02/25/19 07:49 104 38 50 02/25/19 07:00 102 35 124/74 (91) 99 02/25/19 06:00 104 33 131/80 (97) 95 02/25/19 05:00 108 32 128/74 (92) 95 02/25/19 05:00 108 36 50 02/25/19 04:00 106 02/25/19 04:00 Mechanical Ventilator 02/25/19 04:00 50 02/25/19 04:00 98.2 111 36 121/78 (92) 97 02/25/19 03:10 107 35 50 02/25/19 03:00 106 36 122/74 (90) 95 02/25/19 02:00 100 36 107/75 (86) 98 02/25/19 01:12 104 37 50 02/25/19 01:00 105 38 126/79 (95) 99 02/25/19 00:00 98.1 107 29 129/73 (91) 97 02/25/19 00:00 103 02/25/19 00:00 Mechanical Ventilator 02/24/19 23:00 109 39 118/77 (91) 94 02/24/19 23:00 105 35 50 02/24/19 22:30 101 112/76 02/24/19 22:00 103 33 130/76 (94) 96 02/24/19 21:00 101 38 50 02/24/19 21:00 106 38 112/76 (88) 95 02/24/19 20:00 98.0 105 37 117/79 (92) 93 02/24/19 20:00 50 02/24/19 20:00 102 02/24/19 20:00 Mechanical Ventilator 7/20/19 19:00 96 35 50 02/24/19 19:00 102 28 110/86 (94) 93 02/24/19 18:00 93 28 107/66 (80) 97 02/24/19 17:00 97 34 112/73 (86) 96 02/24/19 16:51 87 30 50 02/24/19 16:00 50 02/24/19 16:00 102 02/24/19 16:00 Mechanical Ventilator 02/24/19 16:00 98.1 96 34 110/70 (83) 96 02/24/19 15:00 103 32 117/73 (88) 97 02/24/19 14:51 95 30 50 02/24/19 14:00 93 30 108/64 (79) 98 02/24/19 13:00 96 32 105/70 (82) 98 02/24/19 12:50 93 33 50 02/24/19 12:00 Mechanical Ventilator 02/24/19 12:00 98.0 98 33 97/63 (74) 99 02/24/19 12:00 98 02/24/19 12:00 50 02/24/19 11:00 108 28 95/64 (74) 94 02/24/19 10:52 103 30 50 02/24/19 10:00 114 27 113/71 (85) 97 02/24/19 09:30 109/68 Intake and Output 02/24/19 02/25/19 18:59 06:59 Intake Total 2528.833 ml 965.000 ml Output Total 1750 ml 2600 ml Balance 778.833 ml -1635.000 ml Free Water 155 ml IV Total 1873.833 ml 485.000 ml Tube Feeding 480 ml 480 ml Other 20 ml Output Urine Total 1750 ml 1675 ml Stool Total 925 ml Microbiology Date/Time Source Procedure Growth Status 02/22/19 19:32 Blood Blood Culture - Preliminary NO GROWTH AFTER 48 HOURS Resulted 02/20/19 14:00 Sputum Induced Gram Stain - Final Complete 02/20/19 14:00 Sputum Culture - Final Luciana Albicans Complete 02/22/19 23:55 Stool Clostridium difficile Toxin Assay - Final Complete 02/20/19 16:20 Indwelling Cath Urine Culture - Final NO GROWTH AFTER 48 HOURS Complete Current Medications Medications (Trade) Dose Ordered Sig/Tonny Route PRN Reason Start Time Stop Time Status Last Admin Dose Admin Acetaminophen (Tylenol) 650 mg Q4H PRN ORAL Mild Pain (Pain Scale 1-3) 02/16/19 00:30 03/16/19 12:29 02/17/19 04:53 Acetaminophen (Tylenol) 650 mg Q4H PRN RECTAL Mild Pain (Pain Scale 1-3) 02/16/19 04:30 03/18/19 04:29 02/16/19 04:31 Chlorhexidine Gluconate (Stephanie-Hex 2%) 1 applic DAILY@2000 TOPIC 02/19/19 20:00 03/21/19 19:59 02/24/19 20:26 Dextrose (Dextrose 50%) 25 ml Q30M PRN IV Hypoglycemia 02/15/19 22:15 03/16/19 16:14 Dextrose (Dextrose 50%) 50 ml Q30M PRN IV Hypoglycemia 02/15/19 22:15 03/16/19 16:14 02/16/19 06:32 Lactobacillus Acidophilus (Culturelle) 1 tab TWICE A DAY ORAL 02/24/19 18:00 03/26/19 17:59 02/25/19 08:39 Lansoprazole (Prevacid) 30 mg BID NG 02/24/19 18:00 03/26/19 17:59 02/25/19 08:39 Levetiracetam 100 ml @ 400 mls/hr Q12HR IVPB 02/19/19 09:00 03/21/19 08:59 02/25/19 08:38 Midodrine (Pro-Amatine) 2.5 mg THREE TIMES A DAY ORAL 02/24/19 15:00 03/26/19 14:59 02/25/19 08:39 Norepinephrine Bitartrate 8 mg/ Dextrose 508 ml @ 0 mls/hr Q24H IV 02/16/19 09:30 03/18/19 09:29 02/23/19 09:37 Ondansetron HCl (Zofran) 4 mg Q6H PRN IVP Nausea & Vomiting 02/16/19 01:00 03/16/19 12:59 02/24/19 18:50 Phenylephrine HCl 50 mg/Dextrose 250 ml @ 0 mls/hr Q24H IV 02/16/19 22:30 03/18/19 22:29 Piperacillin Sod/ Tazobactam Sod 3.375 gm/Sodium Chloride 110 ml @ 27.5 mls/hr Q8HR IVPB 02/24/19 22:00 03/03/19 21:59 02/25/19 06:02 Spironolactone (Aldactone) 50 mg EVERY 12 HOURS NG 02/24/19 21:00 03/24/19 20:59 02/25/19 08:39 Thiamine HCl (Vitamin B1) 100 mg DAILY NG 02/25/19 09:00 03/27/19 08:59 02/25/19 08:39 Vancomycin HCl (Vanco rx to dose) 1 ea DAILY PRN MISC Per rx protocol 02/16/19 09:00 03/17/19 12:59 Vancomycin HCl/ Dextrose 275 ml @ 183.333 mls/hr Q12HR@1000,2200 IVPB 02/24/19 22:00 03/01/19 21:59 02/24/19 21:52 Vasopressin 100 units/Sodium Chloride 100 ml @ 0 mls/hr Q24H IV 02/16/19 08:15 03/18/19 08:14 02/16/19 08:15 Laboratory Tests 02/24/19 16:00: Ammonia 47H 02/25/19 05:25: White Blood Count 36.3*H, Red Blood Count 2.63L, Hemoglobin 8.3L, Hematocrit 25.8L, Mean Corpuscular Volume 98, Mean Corpuscular Hemoglobin 31.5H, Mean Corpuscular Hemoglobin Concent 32.2, Red Cell Distribution Width 16.8H, Platelet Count 410, Mean Platelet Volume 6.8, Neutrophils (%) (Auto) , Lymphocytes (%) (Auto) , Monocytes (%) (Auto) , Eosinophils (%) (Auto) , Basophils (%) (Auto) , Differential Total Cells Counted 100, Neutrophils % ( Manual) 79H, Lymphocytes % (Manual) 5L, Monocytes % (Manual) 9, Eosinophils % ( Manual) 1, Basophils % (Manual) 0, Band Neutrophils 6, Platelet Estimate Adequate, Platelet Morphology Normal, Polychromasia 1+, Hypochromasia 2+, Anisocytosis 1+, Sodium Level 138, Potassium Level 4.8#, Chloride Level 106, Carbon Dioxide Level 26, Anion Gap 7, Blood Urea Nitrogen 4L, Creatinine 0.6, Estimat Glomerular Filtration Rate > 60, Glucose Level 97, Uric Acid 1.0L, Calcium Level 7.9L, Phosphorus Level 3.5, Magnesium Level 1.7L, Total Bilirubin 9.6H, Direct Bilirubin 7.1H, Gamma Glutamyl Transpeptidase 661H, Aspartate Amino Transf (AST/SGOT) 257H, Alanine Aminotransferase (ALT/SGPT) 82H, Alkaline Phosphatase 299H, C-Reactive Protein, Quantitative 5.8H, Pro-B-Type Natriuretic Peptide 559H, Total Protein 6.1L, Albumin 1.5L, Globulin 4.6, Albumin/Globulin Ratio 0.3L, Folate 23.6 Height (Feet): 5 Height (Inches): 5.00 Weight (Pounds): 188 Objective exam stable, urine clearing Jeremy Matta MD Feb 25, 2019 09:01
[2019-02-25 09:36] LABS: APPEARANCE,URINE CLEAR; BILIRUBIN, URINE 2+ (NEGATIVE); GLUCOSE, URINE (UA) NEGATIVE (NEGATIVE); KETONES,URINE NEGATIVE (NEGATIVE); LEUKOCYTE ESTERASE ,URINE 1+ (NEGATIVE); NITRITE,URINE NEGATIVE (NEGATIVE); PH,URINE 7 (4.5-8.0); PROTEIN,URINE NEGATIVE (NEGATIVE); UROBILINOGEN,URINE 1 MG/DL (0.0-1.0)
[2019-02-25 09:45] LABS: COLOR,URINE YELLOW
[2019-02-25] MEDS: Vancomycin 275 ML IVPB SCH ×2 (10:33→22:11)
[2019-02-25] MEDS: Micafungin 100 MG in NS 110 ML IVPB SCH (10:33)
--- NOTE | 2019-02-25 10:40 | NUR ---
NURSE NOTES: Dr. Marx at bedside. With order to wean patient. RT made aware. Current Vent setting of AC 26 , VT 500, peep 5, FiO2 is 50%.
--- NOTE | 2019-02-25 10:45 | NUR ---
NURSE NOTES: RT at bedside, changed Fio2 to 40%. Oxygen saturation at 98%. Will continue to monitor.
--- NOTE | 2019-02-25 10:54 | Pulmonolgy Critical Care Note ---
Critical Care - Asmt/Plan Assessment/Plan: Problems: (1) Seizure disorder (2) Endotracheally intubated (3) Septic shock (4) Sepsis (5) Sinus tachycardia (6) Lactic acid acidosis (7) High anion gap metabolic acidosis (8) STEFANI (acute kidney injury) (9) Abnormal LFTs (10) Coffee ground emesis (11) Gastrointestinal bleed (12) Altered mental status (13) Alcohol withdrawal seizure (14) Ventilator dependent Assessment/Plan: Continue ventilatory support/settings reviewed SBT when stable Monitor volumes, PRN lasix Replete K, phos and Mag Titrate NE Continue Vanco/Zosyn/Flucon per ID, F/U Cx's F/U GI recs, PPI, EGD when stable, ? colo Monitor counts, transfuse as neded Monitor for EtOH w/drawal, PRN ativan Continue AEDs, monitor for Sz's, F/U neuro recs FC CCT 35 Respiratory: CXR, weaning trial Cardiac: continue to monitor HR/BP Renal: F/U I&O Gastrointestinal: continue feedings/current rate Endocrine: monitor blood sugar Neurologic: PRN Ativan Prophylaxis: Protonix Disposition: keep in ICU Time Spent (Minutes): 40 Notes Reviewed: market basket maker Discussed with: nurses Critical Care - Objective Last 24 Hour Vital Signs Date Time Temp Pulse Resp B/P (MAP) Pulse Ox O2 Delivery O2 Flow Rate FiO2 02/25/19 10:48 105 36 40 02/25/19 10:45 40 02/25/19 10:00 98 33 116/81 (93) 98 02/25/19 09:26 102 37 50 02/25/19 09:00 103 36 120/82 (95) 99 02/25/19 08:00 50 02/25/19 08:00 97.8 104 36 125/81 (96) 96 02/25/19 08:00 Mechanical Ventilator 02/25/19 07:49 104 38 50 02/25/19 07:24 101 02/25/19 07:00 102 35 124/74 (91) 99 02/25/19 06:00 104 33 131/80 (97) 95 02/25/19 05:00 108 32 128/74 (92) 95 02/25/19 05:00 108 36 50 02/25/19 04:00 106 02/25/19 04:00 Mechanical Ventilator 02/25/19 04:00 50 02/25/19 04:00 98.2 111 36 121/78 (92) 97 02/25/19 03:10 107 35 50 02/25/19 03:00 106 36 122/74 (90) 95 02/25/19 02:00 100 36 107/75 (86) 98 02/25/19 01:12 104 37 50 02/25/19 01:00 105 38 126/79 (95) 99 02/25/19 00:00 98.1 107 29 129/73 (91) 97 02/25/19 00:00 103 02/25/19 00:00 Mechanical Ventilator 02/24/19 23:00 109 39 118/77 (91) 94 02/24/19 23:00 105 35 50 02/24/19 22:30 101 112/76 02/24/19 22:00 103 33 130/76 (94) 96 02/24/19 21:00 101 38 50 02/24/19 21:00 106 38 112/76 (88) 95 02/24/19 20:00 98.0 105 37 117/79 (92) 93 02/24/19 20:00 50 20 20:00 102 02/24/19 20:00 Mechanical Ventilator 02/24/19 19:00 96 35 50 02/24/19 19:00 102 28 110/86 (94) 93 02/24/19 18:00 93 28 107/66 (80) 97 02/24/19 17:00 97 34 112/73 (86) 96 02/24/19 16:51 87 30 50 02/24/19 16:00 50 02/24/19 16:00 102 02/24/19 16:00 Mechanical Ventilator 02/24/19 16:00 98.1 96 34 110/70 (83) 96 02/24/19 15:00 103 32 117/73 (88) 97 02/24/19 14:51 95 30 50 02/24/19 14:00 93 30 108/64 (79) 98 02/24/19 13:00 96 32 105/70 (82) 98 02/24/19 12:50 93 33 50 02/24/19 12:00 Mechanical Ventilator 02/24/19 12:00 98.0 98 33 97/63 (74) 99 02/24/19 12:00 98 02/24/19 12:00 50 02/24/19 11:00 108 28 95/64 (74) 94 Status: awake Condition: critical Lungs: rhonchi Heart: HR/BP unstable Abdomen: soft, non-tender Extremities: edema Micro: Microbiology Date/Time Source Procedure Growth Status 02/22/19 19:32 Blood Blood Culture - Preliminary NO GROWTH AFTER 48 HOURS Resulted 02/22/19 19:31 Blood Blood Culture - Preliminary NO GROWTH AFTER 48 HOURS Resulted 02/22/19 23:55 Stool Clostridium difficile Toxin Assay - Final Complete Accucheck: 33 Blood Sugars: BS not controlled Critical Care - Subjective Condition: critical FI02: 40 Vent Support Breath Rate: 26 Vent Support Mode: AC Vent Tidal Volume: 500 Sputum Amount: Moderate PEEP: 5.0 PIP: 44 Tube Feeding Amount: 40 I&O: Intake and Output 02/24/19 02/25/19 18:59 06:59 Intake Total 2528.833 ml 965.000 ml Output Total 1750 ml 2600 ml Balance 778.833 ml -1635.000 ml Free Water 155 ml IV Total 1873.833 ml 485.000 ml Tube Feeding 480 ml 480 ml Other 20 ml Output Urine Total 1750 ml 1675 ml Stool Total 925 ml Subjective: awake and agitated on the vent no weaning attempted today, not ordered per nursing/RT icteric off pressors at ths time positive uop tolerating TF minimal secretions noted ET-Tube: 7.5 ET Position: 24 Labs: Current Medications Medications (Trade) Dose Ordered Sig/Tonny Route PRN Reason Start Time Stop Time Status Last Admin Dose Admin Acetaminophen (Tylenol) 650 mg Q4H PRN ORAL Mild Pain (Pain Scale 1-3) 02/16/19 00:30 03/16/19 12:29 02/17/19 04:53 Acetaminophen (Tylenol) 650 mg Q4H PRN RECTAL Mild Pain (Pain Scale 1-3) 02/16/19 04:30 03/18/19 04:29 02/16/19 04:31 Cefepime HCl 2 gm/ Dextrose 55 ml @ 110 mls/hr EVERY 12 HOURS IVPB 02/25/19 11:30 03/04/19 11:29 Chlorhexidine Gluconate (Stephanie-Hex 2%) 1 applic DAILY@2000 TOPIC 02/19/19 20:00 03/21/19 19:59 02/24/19 20:26 Dextrose (Dextrose 50%) 25 ml Q30M PRN IV Hypoglycemia 02/15/19 22:15 03/16/19 16:14 Dextrose (Dextrose 50%) 50 ml Q30M PRN IV Hypoglycemia 02/15/19 22:15 03/16/19 16:14 02/16/19 06:32 Lactobacillus Acidophilus (Culturelle) 1 tab TWICE A DAY ORAL 02/24/19 18:00 03/26/19 17:59 02/25/19 08:39 Lansoprazole (Prevacid) 30 mg BID NG 02/24/19 18:00 03/26/19 17:59 02/25/19 08:39 Levetiracetam 100 ml @ 400 mls/hr Q12HR IVPB 02/19/19 09:00 03/21/19 08:59 02/25/19 08:38 Metronidazole 100 ml @ 100 mls/hr Q8HR IVPB 02/25/19 14:00 03/04/19 13:59 Micafungin Sodium 100 mg/Sodium Chloride 110 ml @ 110 mls/hr Q24H IVPB 02/25/19 10:30 03/04/19 10:29 02/25/19 10:33 Midodrine (Pro-Amatine) 2.5 mg THREE TIMES A DAY ORAL 02/24/19 15:00 03/26/19 14:59 02/25/19 08:39 Norepinephrine Bitartrate 8 mg/ Dextrose 508 ml @ 0 mls/hr Q24H IV 02/16/19 09:30 03/18/19 09:29 02/23/19 09:37 Ondansetron HCl (Zofran) 4 mg Q6H PRN IVP Nausea & Vomiting 02/16/19 01:00 03/16/19 12:59 02/24/19 18:50 Phenylephrine HCl 50 mg/Dextrose 250 ml @ 0 mls/hr Q24H IV 02/16/19 22:30 03/18/19 22:29 Spironolactone (Aldactone) 50 mg EVERY 12 HOURS NG 02/24/19 21:00 03/24/19 20:59 02/25/19 08:39 Thiamine HCl (Vitamin B1) 100 mg DAILY NG 02/25/19 09:00 03/27/19 08:59 02/25/19 08:39 Vancomycin HCl (Vanco rx to dose) 1 ea DAILY PRN MISC Per rx protocol 02/16/19 09:00 03/17/19 12:59 Vancomycin HCl/ Dextrose 275 ml @ 183.333 mls/hr Q12HR@1000,2200 IVPB 02/24/19 22:00 03/01/19 21:59 02/25/19 10:33 Vasopressin 100 units/Sodium Chloride 100 ml @ 0 mls/hr Q24H IV 02/16/19 08:15 03/18/19 08:14 02/16/19 08:15 Laboratory Tests Test 02/24/19 16:00 02/25/19 05:25 02/25/19 09:05 Ammonia 47 umol/L (11-32) H White Blood Count 36.3 K/UL (4.8-10.8) *H Red Blood Count 2.63 M/UL (4.70-6.10) L Hemoglobin 8.3 G/DL (14.2-18.0) L Hematocrit 25.8 % (42.0-52.0) L Mean Corpuscular Volume 98 FL (80-99) Mean Corpuscular Hemoglobin 31.5 PG (27.0-31.0) H Mean Corpuscular Hemoglobin Concent 32.2 G/DL (32.0-36.0) Red Cell Distribution Width 16.8 % (11.6-14.8) H Platelet Count 410 K/UL (150-450) Mean Platelet Volume 6.8 FL (6.5-10.1) Neutrophils (%) (Auto) % (45.0-75.0) Lymphocytes (%) (Auto) % (20.0-45.0) Monocytes (%) (Auto) % (1.0-10.0) Eosinophils (%) (Auto) % (0.0-3.0) Basophils (%) (Auto) % (0.0-2.0) Differential Total Cells Counted 100 Neutrophils % (Manual) 79 % (45-75) H Lymphocytes % (Manual) 5 % (20-45) L Monocytes % (Manual) 9 % (1-10) Eosinophils % (Manual) 1 % (0-3) Basophils % (Manual) 0 % (0-2) Band Neutrophils 6 % (0-8) Platelet Estimate Adequate Platelet Morphology Normal Polychromasia 1+ Hypochromasia 2+ Anisocytosis 1+ Sodium Level 138 MMOL/L (136-145) Potassium Level 4.8 MMOL/L (3.5-5.1) # Chloride Level 106 MMOL/L (98-107) Carbon Dioxide Level 26 MMOL/L (21-32) Anion Gap 7 mmol/L (5-15) Blood Urea Nitrogen 4 mg/dL (7-18) L Creatinine 0.6 MG/DL (0.55-1.30) Estimat Glomerular Filtration Rate > 60 mL/min (>60) Glucose Level 97 MG/DL (74-106) Uric Acid 1.0 MG/DL (2.6-7.2) L Calcium Level 7.9 MG/DL (8.5-10.1) L Phosphorus Level 3.5 MG/DL (2.5-4.9) Magnesium Level 1.7 MG/DL (1.8-2.4) L Total Bilirubin 9.6 MG/DL (0.2-1.0) H Direct Bilirubin 7.1 MG/DL (0.0-0.3) H Gamma Glutamyl Transpeptidase 661 U/L (5-85) H Aspartate Amino Transf (AST/SGOT) 257 U/L (15-37) H Alanine Aminotransferase (ALT/SGPT) 82 U/L (12-78) H Alkaline Phosphatase 299 U/L (46-116) H C-Reactive Protein, Quantitative 5.8 mg/dL (0.00-0.90) H Pro-B-Type Natriuretic Peptide 559 pg/mL (0-125) H Total Protein 6.1 G/DL (6.4-8.2) L Albumin 1.5 G/DL (3.4-5.0) L Globulin 4.6 g/dL Albumin/Globulin Ratio 0.3 (1.0-2.7) L Folate 23.6 NG/ML (8.6-58.9) Urine Color Yellow Urine Appearance Clear Urine pH 7 (4.5-8.0) Urine Specific [place] 1.005 (1.005-1.035) Urine Protein Negative (NEGATIVE) Urine Glucose (UA) Negative (NEGATIVE) Urine Ketones Negative (NEGATIVE) Urine Blood 1+ (NEGATIVE) H Urine Nitrite Negative (NEGATIVE) Urine Bilirubin 2+ (NEGATIVE) H Urine Ictotest Positive (NEGATIVE) Urine Urobilinogen 1 MG/DL (0.0-1.0) H Urine Leukocyte Esterase 1+ (NEGATIVE) H Urine RBC 0-2 /HPF (0 - 0) H Urine WBC 0-2 /HPF (0 - 0) Urine Squamous Epithelial Cells Occasional /LPF Urine Bacteria Occasional /HPF (NONE) Radha Marx DO Feb 25, 2019 10:54
--- NOTE | 2019-02-25 10:57 | General Progress Note ---
Assessment/Plan Status: not improved, unchanged Assessment/Plan: Assessment - Resp failure - diarrhea - UGIB - abnormal LFT, negative hepatitis serologies, s/p U/S x 2 (no biliary dilation) - ? cirrhosis and sepsis/hypoperfusion - ? meds - ? cholecystitis - ? alcoholic hepatitis - cholelithiasis - h/o EtOH, possible early cirrhosis Recommendations - vital TF - probiotics - monitor stool output - abx per ID - d/c tylenol - min duration antifungal Rx - supportive care - EGD once stable - Surgical f/u re GB - Will consider doppler of hepatic vessels Subjective Allergies: Coded Allergies: No Known Allergies (Unverified , 02/10/15) Subjective above noted seen in ICU intubated d/w RN off pressors LFT still climbing still with diarrhea Objective Last 24 Hour Vital Signs Date Time Temp Pulse Resp B/P (MAP) Pulse Ox O2 Delivery O2 Flow Rate FiO2 02/25/19 10:00 98 33 116/81 (93) 98 02/25/19 09:26 102 37 50 02/25/19 09:00 103 36 120/82 (95) 99 02/25/19 08:00 50 02/25/19 08:00 97.8 104 36 125/81 (96) 96 02/25/19 08:00 Mechanical Ventilator 02/25/19 07:49 104 38 50 02/25/19 07:24 101 02/25/19 07:00 102 35 124/74 (91) 99 02/25/19 06:00 104 33 131/80 (97) 95 02/25/19 05:00 108 32 128/74 (92) 95 02/25/19 05:00 108 36 50 02/25/19 04:00 106 02/25/19 04:00 Mechanical Ventilator 02/25/19 04:00 50 02/25/19 04:00 98.2 111 36 121/78 (92) 97 02/25/19 03:10 107 35 50 02/25/19 03:00 106 36 122/74 (90) 95 02/25/19 02:00 100 36 107/75 (86) 98 02/25/19 01:12 104 37 50 02/25/19 01:00 105 38 126/79 (95) 99 02/25/19 00:00 98.1 107 29 129/73 (91) 97 02/25/19 00:00 103 02/25/19 00:00 Mechanical Ventilator 02/24/19 23:00 109 39 118/77 (91) 94 02/24/19 23:00 105 35 50 02/24/19 22:30 101 112/76 02/24/19 22:00 103 33 130/76 (94) 96 02/24/19 21:00 101 38 50 02/24/19 21:00 106 38 112/76 (88) 95 02/24/19 20:00 98.0 105 37 117/79 (92) 93 02/24/19 20:00 50 02/24/19 20:00 102 02/24/19 20:00 Mechanical Ventilator 02/24/19 19:00 96 35 50 02/24/19 19:00 102 28 110/86 (94) 93 02/24/19 18:00 93 28 107/66 (80) 97 02/24/19 17:00 97 34 112/73 (86) 96 02/24/19 16:51 87 30 50 02/24/19 16:00 50 02/24/19 16:00 102 02/24/19 16:00 Mechanical Ventilator 02/24/19 16:00 98.1 96 34 110/70 (83) 96 02/24/19 15:00 103 32 117/73 (88) 97 02/24/19 14:51 95 30 50 02/24/19 14:00 93 30 108/64 (79) 98 02/24/19 13:00 96 32 105/70 (82) 98 02/24/19 12:50 93 33 50 02/24/19 12:00 Mechanical Ventilator 02/24/19 12:00 98.0 98 33 97/63 (74) 99 02/24/19 12:00 98 02/24/19 12:00 50 02/24/19 11:00 108 28 95/64 (74) 94 02/24/19 10:52 103 30 50 Intake and Output 02/24/19 02/25/19 18:59 06:59 Intake Total 2528.833 ml 965.000 ml Output Total 1750 ml 2600 ml Balance 778.833 ml -1635.000 ml Free Water 155 ml IV Total 1873.833 ml 485.000 ml Tube Feeding 480 ml 480 ml Other 20 ml Output Urine Total 1750 ml 1675 ml Stool Total 925 ml Laboratory Tests 02/24/19 16:00: Ammonia 47H 02/25/19 05:25: White Blood Count 36.3*H, Red Blood Count 2.63L, Hemoglobin 8.3L, Hematocrit 25.8L, Mean Corpuscular Volume 98, Mean Corpuscular Hemoglobin 31.5H, Mean Corpuscular Hemoglobin Concent 32.2, Red Cell Distribution Width 16.8H, Platelet Count 410, Mean Platelet Volume 6.8, Neutrophils (%) (Auto) , Lymphocytes (%) (Auto) , Monocytes (%) (Auto) , Eosinophils (%) (Auto) , Basophils (%) (Auto) , Differential Total Cells Counted 100, Neutrophils % ( Manual) 79H, Lymphocytes % (Manual) 5L, Monocytes % (Manual) 9, Eosinophils % ( Manual) 1, Basophils % (Manual) 0, Band Neutrophils 6, Platelet Estimate Adequate, Platelet Morphology Normal, Polychromasia 1+, Hypochromasia 2+, Anisocytosis 1+, Sodium Level 138, Potassium Level 4.8#, Chloride Level 106, Carbon Dioxide Level 26, Anion Gap 7, Blood Urea Nitrogen 4L, Creatinine 0.6, Estimat Glomerular Filtration Rate > 60, Glucose Level 97, Uric Acid 1.0L, Calcium Level 7.9L, Phosphorus Level 3.5, Magnesium Level 1.7L, Total Bilirubin 9.6H, Direct Bilirubin 7.1H, Gamma Glutamyl Transpeptidase 661H, Aspartate Amino Transf (AST/SGOT) 257H, Alanine Aminotransferase (ALT/SGPT) 82H, Alkaline Phosphatase 299H, C-Reactive Protein, Quantitative 5.8H, Pro-B-Type Natriuretic Peptide 559H, Total Protein 6.1L, Albumin 1.5L, Globulin 4.6, Albumin/Globulin Ratio 0.3L, Folate 23.6 02/25/19 09:05: Urine Color Yellow, Urine Appearance Clear, Urine pH 7, Urine Specific [place] 1.005, Urine Protein Negative, Urine Glucose (UA) Negative, Urine Ketones Negative, Urine Blood 1+H, Urine Nitrite Negative, Urine Bilirubin 2+H, Urine Ictotest Positive, Urine Urobilinogen 1H, Urine Leukocyte Esterase 1+H, Urine RBC 0-2H, Urine WBC 0-2, Urine Squamous Epithelial Cells Occasional, Urine Bacteria Occasional Height (Feet): 5 Height (Inches): 5.00 Weight (Pounds): 188 Objective Debilitated minimally interactive NCAT , (+) ETT and feeding tube supple CTA RRR abd soft, slightly distended no edema Madhav Goldberg MD Feb 25, 2019 10:56
[2019-02-25] MEDS: LORazepam Inj 2mg/ml 1ml IV PRN ×3 (11:11→21:12)
[2019-02-25] MEDS: Cefepime HCl 2 GM in D5W 55 ML IVPB SCH ×2 (11:48→20:29)
--- NOTE | 2019-02-25 13:00 | NUR ---
NURSE NOTES: Patient is tachypneic, unable to wean vent.
--- NOTE | 2019-02-25 13:05 | Cardiac Electrophysiology PN ---
Assessment/Plan Assessment/Plan 1. Sinus tachycardia up to 170s. No evidence of acute myocardial infarction . Due to sepsis and anemia and alcohol withdrawal. EF 60% 2. S/P Septic shock and E Coli bacteremia, on broad-spectrum IV antibiotics. 3. Troponin leak. Type 2. Repeat level 0.16 and now negative 4. Respiratory failure on the vent. Failed weaning again 5. ETOH withdrawal 6. Seizures with noncompliance. 7. Upper gi bleed. EGD held for high WBC 8. Hematuria, resolved DW RN Subjective Subjective In ICU on the Vent off pressors. Failed weaning again today. Sister at bedside Objective Last 24 Hour Vital Signs Date Time Temp Pulse Resp B/P (MAP) Pulse Ox O2 Delivery O2 Flow Rate FiO2 02/25/19 12:00 98.0 107 33 121/80 (94) 99 02/25/19 12:00 Mechanical Ventilator 02/25/19 11:17 109 02/25/19 11:00 105 35 124/78 (93) 92 02/25/19 10:48 105 36 40 02/25/19 10:45 40 02/25/19 10:00 98 33 116/81 (93) 98 02/25/19 09:26 102 37 50 02/25/19 09:26 97 02/25/19 09:00 103 36 120/82 (95) 99 02/25/19 08:00 50 02/25/19 08:00 97.8 104 36 125/81 (96) 96 02/25/19 08:00 Mechanical Ventilator 02/25/19 07:49 104 38 50 02/25/19 07:24 101 02/25/19 07:00 102 35 124/74 (91) 99 02/25/19 06:00 104 33 131/80 (97) 95 02/25/19 05:00 108 32 128/74 (92) 95 02/25/19 05:00 108 36 50 02/25/19 04:00 106 02/25/19 04:00 Mechanical Ventilator 02/25/19 04:00 50 02/25/19 04:00 98.2 111 36 121/78 (92) 97 02/25/19 03:10 107 35 50 02/25/19 03:00 106 36 122/74 (90) 95 02/25/19 02:00 100 36 107/75 (86) 98 02/25/19 01:12 104 37 50 02/25/19 01:00 105 38 126/79 (95) 99 02/25/19 00:00 98.1 107 29 129/73 (91) 97 02/25/19 00:00 103 02/25/19 00:00 Mechanical Ventilator 02/24/19 23:00 109 39 118/77 (91) 94 02/24/19 23:00 105 35 50 02/24/19 22:30 101 112/76 02/24/19 22:00 103 33 130/76 (94) 96 02/24/19 21:00 101 38 50 02/24/19 21:00 106 38 112/76 (88) 95 02/24/19 20:00 98.0 105 37 117/79 (92) 93 02/24/19 20:00 50 02/24/19 20:00 102 02/24/19 20:00 Mechanical Ventilator 02/24/19 19:00 96 35 50 02/24/19 19:00 102 28 110/86 (94) 93 02/24/19 18:00 93 28 107/66 (80) 97 02/24/19 17:00 97 34 112/73 (86) 96 02/24/19 16:51 87 30 50 02/24/19 16:00 50 02/24/19 16:00 102 02/24/19 16:00 Mechanical Ventilator 02/24/19 16:00 98.1 96 34 110/70 (83) 96 02/24/19 15:00 103 32 117/73 (88) 97 02/24/19 14:51 95 30 50 02/24/19 14:00 93 30 108/64 (79) 98 Intake and Output 02/24/19 02/25/19 19:00 07:00 Intake Total 2501.333 ml 965.000 ml Output Total 2225 ml 2400 ml Balance 276.333 ml -1435.000 ml Free Water 155 ml IV Total 1846.333 ml 485.000 ml Tube Feeding 480 ml 480 ml Other 20 ml Output Urine Total 1625 ml 1750 ml Stool Total 600 ml 650 ml Laboratory Tests Test 02/24/19 16:00 02/25/19 05:25 02/25/19 09:05 Ammonia 47 umol/L (11-32) H White Blood Count 36.3 K/UL (4.8-10.8) *H Red Blood Count 2.63 M/UL (4.70-6.10) L Hemoglobin 8.3 G/DL (14.2-18.0) L Hematocrit 25.8 % (42.0-52.0) L Mean Corpuscular Volume 98 FL (80-99) Mean Corpuscular Hemoglobin 31.5 PG (27.0-31.0) H Mean Corpuscular Hemoglobin Concent 32.2 G/DL (32.0-36.0) Red Cell Distribution Width 16.8 % (11.6-14.8) H Platelet Count 410 K/UL (150-450) Mean Platelet Volume 6.8 FL (6.5-10.1) Neutrophils (%) (Auto) % (45.0-75.0) Lymphocytes (%) (Auto) % (20.0-45.0) Monocytes (%) (Auto) % (1.0-10.0) Eosinophils (%) (Auto) % (0.0-3.0) Basophils (%) (Auto) % (0.0-2.0) Differential Total Cells Counted 100 Neutrophils % (Manual) 79 % (45-75) H Lymphocytes % (Manual) 5 % (20-45) L Monocytes % (Manual) 9 % (1-10) Eosinophils % (Manual) 1 % (0-3) Basophils % (Manual) 0 % (0-2) Band Neutrophils 6 % (0-8) Platelet Estimate Adequate Platelet Morphology Normal Polychromasia 1+ Hypochromasia 2+ Anisocytosis 1+ Sodium Level 138 MMOL/L (136-145) Potassium Level 4.8 MMOL/L (3.5-5.1) # Chloride Level 106 MMOL/L (98-107) Carbon Dioxide Level 26 MMOL/L (21-32) Anion Gap 7 mmol/L (5-15) Blood Urea Nitrogen 4 mg/dL (7-18) L Creatinine 0.6 MG/DL (0.55-1.30) Estimat Glomerular Filtration Rate > 60 mL/min (>60) Glucose Level 97 MG/DL (74-106) Uric Acid 1.0 MG/DL (2.6-7.2) L Calcium Level 7.9 MG/DL (8.5-10.1) L Phosphorus Level 3.5 MG/DL (2.5-4.9) Magnesium Level 1.7 MG/DL (1.8-2.4) L Total Bilirubin 9.6 MG/DL (0.2-1.0) H Direct Bilirubin 7.1 MG/DL (0.0-0.3) H Gamma Glutamyl Transpeptidase 661 U/L (5-85) H Aspartate Amino Transf (AST/SGOT) 257 U/L (15-37) H Alanine Aminotransferase (ALT/SGPT) 82 U/L (12-78) H Alkaline Phosphatase 299 U/L (46-116) H C-Reactive Protein, Quantitative 5.8 mg/dL (0.00-0.90) H Pro-B-Type Natriuretic Peptide 559 pg/mL (0-125) H Total Protein 6.1 G/DL (6.4-8.2) L Albumin 1.5 G/DL (3.4-5.0) L Globulin 4.6 g/dL Albumin/Globulin Ratio 0.3 (1.0-2.7) L Folate 23.6 NG/ML (8.6-58.9) Urine Color Yellow Urine Appearance Clear Urine pH 7 (4.5-8.0) Urine Specific [place] 1.005 (1.005-1.035) Urine Protein Negative (NEGATIVE) Urine Glucose (UA) Negative (NEGATIVE) Urine Ketones Negative (NEGATIVE) Urine Blood 1+ (NEGATIVE) H Urine Nitrite Negative (NEGATIVE) Urine Bilirubin 2+ (NEGATIVE) H Urine Ictotest Positive (NEGATIVE) Urine Urobilinogen 1 MG/DL (0.0-1.0) H Urine Leukocyte Esterase 1+ (NEGATIVE) H Urine RBC 0-2 /HPF (0 - 0) H Urine WBC 0-2 /HPF (0 - 0) Urine Squamous Epithelial Cells Occasional /LPF Urine Bacteria Occasional /HPF (NONE) Microbiology Date/Time Source Procedure Growth Status 02/22/19 19:32 Blood Blood Culture - Preliminary NO GROWTH AFTER 48 HOURS Resulted 02/22/19 19:31 Blood Blood Culture - Preliminary NO GROWTH AFTER 48 HOURS Resulted 02/22/19 23:55 Stool Clostridium difficile Toxin Assay - Final Complete Objective HEAD AND NECK: No JVD.Orally intubated with OG tube LUNGS: Decreased breath sounds. CARDIOVASCULAR: Regular S1 and S2 with no gallop or murmur. ABDOMEN: Soft. EXTREMITIES: No pitting edema. Fidencio Trevino MD Feb 25, 2019 13:05
[2019-02-25] MEDS ORDERED: NS 500ML ONE (13:25)
[2019-02-25] MEDS ORDERED: Tubing IV Secondary IV ONE (13:25)
--- NOTE | 2019-02-25 14:34 | Hematology/Onc Progress Note ---
Assessment/Plan Assessment/Plan # Bicytopenia with anemia likely due to Gi bleed -- stool occult blood +, requires further eval with gi, also with etoh withdrawal, also can be related to meds/abx --> anemia panel has been reviewed and results are acd --> peripheral smear reviewed and not noted to have blasts --> wbc remains elevated --> started on folate 1mg po daily (LOW FOLATE) --> Flow cytometry shows no evidence of b-lymphoproliferative disorder --> Hep panel negative # Anemia of chronic disease, per anemia panel --> hgb trend 8-->7-->8-->9-->8.6-->7.7-->7.9-->8.3 --> may require gi eval when more stable with scope (EGD) --> transfuse if hb <7 --> cont folic acid and thiamine # Sinus tachycardia up to 170s. No evidence of acute myocardial infarction . --> This is likely due to sepsis and anemia, alcohol withdrawal --> Echo Nl EF 60% # Leukocytosis due to Septic shock and severe Lactic acidosis on Levophed and broad-spectrum IV antibiotics. --> per ID care, continue abx --> pressor as needed --> vanc/zosyn, flucon --> Hgb trend: 34.9 # Troponin leak, type 2. --> per cards # Respiratory failure on the vent. Failed weaning --> sbt trial per pulm --> on vent # ETOH withdrawal # Seizures with noncompliance Greatly appreciate consultation. Subjective ROS Limited/Unobtainable: Yes Allergies: Coded Allergies: No Known Allergies (Unverified , 02/10/15) Subjective 02/20: intubated, counts are better, on vent, sbt in process, no f/c, mag low 02/21: endoscopy on hold at this time, bloody stool, plt better, on abx 02/22: no events reported, remains intubated, no bleeding, plt better, k is low, repleted\ 02/23: remains in icu, letargic, flow cytometry showed no evidence of b- lymphoproliferative disorder, c-diif negative, labs reviewed, remains on levo 02/24: in icu, on vent, wbc at 32, id made aware. 02/25: icu, weaning off of vent, labs reviewed, continues on abx Objective Objective Current Medications Medications (Trade) Dose Ordered Sig/Tonny Route PRN Reason Start Time Stop Time Status Last Admin Dose Admin Acetaminophen (Tylenol) 650 mg Q4H PRN ORAL Mild Pain (Pain Scale 1-3) 02/16/19 00:30 03/16/19 12:29 02/17/19 04:53 Acetaminophen (Tylenol) 650 mg Q4H PRN RECTAL Mild Pain (Pain Scale 1-3) 02/16/19 04:30 03/18/19 04:29 02/16/19 04:31 Cefepime HCl 2 gm/ Dextrose 55 ml @ 110 mls/hr EVERY 12 HOURS IVPB 02/25/19 11:30 03/04/19 11:29 02/25/19 11:48 Chlorhexidine Gluconate (Stephanie-Hex 2%) 1 applic DAILY@2000 TOPIC 02/19/19 20:00 03/21/19 19:59 02/24/19 20:26 Dextrose (Dextrose 50%) 25 ml Q30M PRN IV Hypoglycemia 02/15/19 22:15 03/16/19 16:14 Dextrose (Dextrose 50%) 50 ml Q30M PRN IV Hypoglycemia 02/15/19 22:15 03/16/19 16:14 02/16/19 06:32 Lactobacillus Acidophilus (Culturelle) 1 tab TWICE A DAY ORAL 02/24/19 18:00 03/26/19 17:59 02/25/19 08:39 Lansoprazole (Prevacid) 30 mg BID NG 02/24/19 18:00 03/26/19 17:59 02/25/19 08:39 Levetiracetam 100 ml @ 400 mls/hr Q12HR IVPB 02/19/19 09:00 03/21/19 08:59 02/25/19 08:38 Lorazepam (Ativan 2mg/ml 1ml) 1 mg Q4H PRN IV For Anxiety 02/25/19 11:00 03/04/19 10:59 02/25/19 11:11 Metronidazole 100 ml @ 100 mls/hr Q8HR IVPB 02/25/19 14:00 03/04/19 13:59 02/25/19 14:15 Micafungin Sodium 100 mg/Sodium Chloride 110 ml @ 110 mls/hr Q24H IVPB 02/25/19 10:30 03/04/19 10:29 02/25/19 10:33 Midodrine (Pro-Amatine) 2.5 mg THREE TIMES A DAY ORAL 02/24/19 15:00 03/26/19 14:59 02/25/19 08:39 Norepinephrine Bitartrate 8 mg/ Dextrose 508 ml @ 0 mls/hr Q24H IV 02/16/19 09:30 03/18/19 09:29 02/23/19 09:37 Ondansetron HCl (Zofran) 4 mg Q6H PRN IVP Nausea & Vomiting 02/16/19 01:00 03/16/19 12:59 02/24/19 18:50 Phenylephrine HCl 50 mg/Dextrose 250 ml @ 0 mls/hr Q24H IV 02/16/19 22:30 03/18/19 22:29 Spironolactone (Aldactone) 50 mg EVERY 12 HOURS NG 02/24/19 21:00 03/24/19 20:59 02/25/19 08:39 Thiamine HCl (Vitamin B1) 100 mg DAILY NG 02/25/19 09:00 03/27/19 08:59 02/25/19 08:39 Vancomycin HCl (Vanco rx to dose) 1 ea DAILY PRN MISC Per rx protocol 02/16/19 09:00 03/17/19 12:59 Vancomycin HCl/ Dextrose 275 ml @ 183.333 mls/hr Q12HR@1000,2200 IVPB 02/24/19 22:00 03/01/19 21:59 02/25/19 10:33 Vasopressin 100 units/Sodium Chloride 100 ml @ 0 mls/hr Q24H IV 02/16/19 08:15 03/18/19 08:14 02/16/19 08:15 Last 24 Hour Vital Signs Date Time Temp Pulse Resp B/P (MAP) Pulse Ox O2 Delivery O2 Flow Rate FiO2 02/25/19 14:00 106 33 140/79 (99) 99 02/25/19 13:30 104 37 40 02/25/19 13:00 108 31 123/78 (93) 98 02/25/19 12:00 98.0 107 33 121/80 (94) 99 02/25/19 12:00 Mechanical Ventilator 02/25/19 11:17 109 02/25/19 11:00 105 35 124/78 (93) 92 02/25/19 10:48 105 36 40 02/25/19 10:45 40 02/25/19 10:00 98 33 116/81 (93) 98 02/25/19 09:26 102 37 50 02/25/19 09:26 97 02/25/19 09:00 103 36 120/82 (95) 99 02/25/19 08:00 50 02/25/19 08:00 97.8 104 36 125/81 (96) 96 02/25/19 08:00 Mechanical Ventilator 02/25/19 07:49 104 38 50 02/25/19 07:24 101 02/25/19 07:00 102 35 124/74 (91) 99 02/25/19 06:00 104 33 131/80 (97) 95 02/25/19 05:00 108 32 128/74 (92) 95 02/25/19 05:00 108 36 50 02/25/19 04:00 106 02/25/19 04:00 Mechanical Ventilator 02/25/19 04:00 50 02/25/19 04:00 98.2 111 36 121/78 (92) 97 02/25/19 03:10 107 35 50 02/25/19 03:00 106 36 122/74 (90) 95 02/25/19 02:00 100 36 107/75 (86) 98 02/25/19 01:12 104 37 50 02/25/19 01:00 105 38 126/79 (95) 99 02/25/19 00:00 98.1 107 29 129/73 (91) 97 02/25/19 00:00 103 02/25/19 00:00 Mechanical Ventilator 02/24/19 23:00 109 39 118/77 (91) 94 02/24/19 23:00 105 35 50 02/24/19 22:30 101 112/76 02/24/19 22:00 103 33 130/76 (94) 96 02/24/19 21:00 101 38 50 02/24/19 21:00 106 38 112/76 (88) 95 02/24/19 20:00 98.0 105 37 117/79 (92) 93 02/24/19 20:00 50 02/24/19 20:00 102 720 20:00 Mechanical Ventilator 02/24/19 19:00 96 35 50 7 19:00 102 28 110/86 (94) 93 7 18:00 93 28 107/66 (80) 97 7 17:00 97 34 112/73 (86) 96 02/24/19 16:51 87 30 50 7 16:00 50 7 16:00 102 02/24/19 16:00 Mechanical Ventilator 02/24/19 16:00 98.1 96 34 110/70 (83) 96 7 15:00 103 32 117/73 (88) 97 02/24/19 14:51 95 30 50 02/24/19 14:00 93 30 108/64 (79) 98 02/24/19 13:00 96 32 105/70 (82) 98 02/24/19 12:50 93 33 50 02/24/19 12:00 Mechanical Ventilator 02/24/19 12:00 98.0 98 33 97/63 (74) 99 7 12:00 98 02/24/19 12:00 50 02/24/19 11:00 108 28 95/64 (74) 94 7 10:52 103 30 50 02/24/19 10:00 114 27 113/71 (85) 97 02/24/19 09:30 109/68 02/24/19 09:01 106 33 50 7 09:00 105 33 95/59 (71) 94 02/24/19 08:00 50 02/24/19 08:00 98.3 113 33 124/68 (86) 93 02/24/19 08:00 116 7 08:00 Mechanical Ventilator 02/24/19 07:00 115 29 121/87 (98) 98 02/24/19 06:56 95 7 06:52 116 40 50 02/24/19 06:00 112 29 124/58 (80) 98 02/24/19 05:00 98 27 40 7 05:00 115 29 126/67 (86) 98 02/24/19 04:00 104 7 04:00 Mechanical Ventilator 02/24/19 04:00 40 7 04:00 98.6 104 29 96/55 (69) 98 02/24/19 03:00 100/58 02/24/19 03:00 93 29 97/52 (67) 97 02/24/19 02:37 89 26 40 02/24/19 02:30 85 28 105/59 (74) 97 02/24/19 02:00 106/59 02/24/19 02:00 87 28 102/59 (73) 97 02/24/19 01:30 86 28 101/60 (74) 98 02/24/19 01:01 86 27 40 02/24/19 01:00 101/68 02/24/19 01:00 78 29 99/71 (80) 95 02/24/19 00:30 88 29 105/63 (77) 97 02/24/19 00:00 Mechanical Ventilator 02/24/19 00:00 85 02/24/19 00:00 40 02/24/19 00:00 99.0 85 28 101/65 (77) 97 02/24/19 00:00 101/65 02/23/19 23:30 88 28 94/56 (69) 97 02/23/19 23:00 88 27 92/53 (66) 97 02/23/19 23:00 92/53 02/23/19 22:54 91 26 40 02/23/19 22:30 86 26 103/63 (76) 99 02/23/19 22:30 83 94/58 02/23/19 22:00 88 27 94/58 (70) 98 02/23/19 22:00 94/58 02/23/19 21:30 88 29 93/59 (70) 97 02/23/19 21:20 98 30 40 02/23/19 21:00 90 28 100/66 (77) 97 02/23/19 21:00 100/66 02/23/19 20:30 90 26 95/61 (72) 97 02/23/19 20:00 Mechanical Ventilator 02/23/19 20:00 89/57 02/23/19 20:00 98.6 90 26 89/57 (68) 96 02/23/19 20:00 40 02/23/19 20:00 90 02/23/19 19:30 92 30 90/58 (69) 98 02/23/19 19:00 92 33 105/65 (78) 96 02/23/19 19:00 105/65 02/23/19 18:54 90 32 40 02/23/19 18:30 92 30 96/61 (73) 96 02/23/19 18:00 93 35 94/58 (70) 96 02/23/19 18:00 94/60 02/23/19 17:30 95 33 104/63 (77) 96 02/23/19 17:19 93 29 40 02/23/19 17:00 94/60 02/23/19 17:00 88 26 104/70 (81) 100 02/23/19 16:30 84 26 101/61 (74) 100 02/23/19 16:00 Mechanical Ventilator 02/23/19 16:00 40 02/23/19 16:00 101/61 02/23/19 16:00 89 02/23/19 16:00 98.3 95 26 98/59 (72) 100 02/23/19 15:30 90 26 92/56 (68) 97 02/23/19 15:00 98/59 02/23/19 15:00 95 26 102/61 (75) 97 02/23/19 14:32 91 30 40 Intake and Output 02/24/19 02/25/19 19:00 07:00 Intake Total 2501.333 ml 965.000 ml Output Total 2225 ml 2400 ml Balance 276.333 ml -1435.000 ml Free Water 155 ml IV Total 1846.333 ml 485.000 ml Tube Feeding 480 ml 480 ml Other 20 ml Output Urine Total 1625 ml 1750 ml Stool Total 600 ml 650 ml Labs Test 02/22/19 17:50 02/23/19 04:05 02/24/19 04:20 02/24/19 16:00 White Blood Count 35.1 K/UL (4.8-10.8) 34.9 K/UL (4.8-10.8) 32.0 K/UL (4.8-10.8) Red Blood Count 2.60 M/UL (4.70-6.10) 2.41 M/UL (4.70-6.10) 2.45 M/UL (4.70-6.10) Hemoglobin 8.3 G/DL (14.2-18.0) 7.7 G/DL (14.2-18.0) 7.9 G/DL (14.2-18.0) Hematocrit 24.3 % (42.0-52.0) 23.1 % (42.0-52.0) 23.2 % (42.0-52.0) Mean Corpuscular Volume 93 FL (80-99) 96 FL (80-99) 95 FL (80-99) Mean Corpuscular Hemoglobin 31.9 PG (27.0-31.0) 31.8 PG (27.0-31.0) 32.1 PG (27.0-31.0) Mean Corpuscular Hemoglobin Concent 34.1 G/DL (32.0-36.0) 33.2 G/DL (32.0-36.0) 33.9 G/DL (32.0-36.0) Red Cell Distribution Width 14.4 % (11.6-14.8) 15.1 % (11.6-14.8) 15.8 % (11.6-14.8) Platelet Count 325 K/UL (150-450) 335 K/UL (150-450) 360 K/UL (150-450) Mean Platelet Volume 7.4 FL (6.5-10.1) 7.6 FL (6.5-10.1) 7.1 FL (6.5-10.1) Neutrophils (%) (Auto) % (45.0-75.0) % (45.0-75.0) % (45.0-75.0) Lymphocytes (%) (Auto) % (20.0-45.0) % (20.0-45.0) % (20.0-45.0) Monocytes (%) (Auto) % (1.0-10.0) % (1.0-10.0) % (1.0-10.0) Eosinophils (%) (Auto) % (0.0-3.0) % (0.0-3.0) % (0.0-3.0) Basophils (%) (Auto) % (0.0-2.0) % (0.0-2.0) % (0.0-2.0) Differential Total Cells Counted 100 100 100 Neutrophils % (Manual) 85 % (45-75) 81 % (45-75) 78 % (45-75) Lymphocytes % (Manual) 7 % (20-45) 10 % (20-45) 13 % (20-45) Monocytes % (Manual) 4 % (1-10) 3 % (1-10) 4 % (1-10) Eosinophils % (Manual) 1 % (0-3) 1 % (0-3) 4 % (0-3) Basophils % (Manual) 0 % (0-2) 0 % (0-2) 1 % (0-2) Band Neutrophils 3 % (0-8) 5 % (0-8) 0 % (0-8) Platelet Estimate Adequate Adequate Adequate Platelet Morphology Normal Normal Normal Polychromasia 1+ 1+ Anisocytosis 1+ 1+ 1+ Macrocytosis 1+ Prothrombin Time 15.6 SEC (9.30-11.50) Prothromb Time International Ratio 1.5 (0.9-1.1) Nucleated Red Blood Cells 1 /100 WBC Hypochromasia 1+ 3+ Sodium Level 142 MMOL/L (136-145) 141 MMOL/L (136-145) Potassium Level 3.2 MMOL/L (3.5-5.1) 2.7 MMOL/L (3.5-5.1) Chloride Level 109 MMOL/L (98-107) 106 MMOL/L (98-107) Carbon Dioxide Level 24 MMOL/L (21-32) 26 MMOL/L (21-32) Anion Gap 9 mmol/L (5-15) 8 mmol/L (5-15) Blood Urea Nitrogen 6 mg/dL (7-18) 5 mg/dL (7-18) Creatinine 0.7 MG/DL (0.55-1.30) 0.7 MG/DL (0.55-1.30) Estimat Glomerular Filtration Rate > 60 mL/min (>60) > 60 mL/min (>60) Glucose Level 113 MG/DL (74-106) 92 MG/DL (74-106) Calcium Level 7.6 MG/DL (8.5-10.1) 7.7 MG/DL (8.5-10.1) Phosphorus Level 2.3 MG/DL (2.5-4.9) 3.2 MG/DL (2.5-4.9) Magnesium Level 1.6 MG/DL (1.8-2.4) 1.9 MG/DL (1.8-2.4) Total Bilirubin 6.8 MG/DL (0.2-1.0) 7.0 MG/DL (0.2-1.0) Direct Bilirubin 5.6 MG/DL (0.0-0.3) 5.9 MG/DL (0.0-0.3) Aspartate Amino Transf (AST/SGOT) 222 U/L (15-37) 225 U/L (15-37) Alanine Aminotransferase (ALT/SGPT) 76 U/L (12-78) 73 U/L (12-78) Alkaline Phosphatase 261 U/L (46-116) 257 U/L (46-116) C-Reactive Protein, Quantitative 6.2 mg/dL (0.00-0.90) Pro-B-Type Natriuretic Peptide 318 pg/mL (0-125) Total Protein 4.5 G/DL (6.4-8.2) 5.1 G/DL (6.4-8.2) Albumin 1.4 G/DL (3.4-5.0) 1.3 G/DL (3.4-5.0) Globulin 3.1 g/dL 3.8 g/dL Albumin/Globulin Ratio 0.5 (1.0-2.7) 0.3 (1.0-2.7) Spherocytes 2+ Ammonia 47 umol/L (11-32) Test 02/25/19 05:25 02/25/19 09:05 White Blood Count 36.3 K/UL (4.8-10.8) Red Blood Count 2.63 M/UL (4.70-6.10) Hemoglobin 8.3 G/DL (14.2-18.0) Hematocrit 25.8 % (42.0-52.0) Mean Corpuscular Volume 98 FL (80-99) Mean Corpuscular Hemoglobin 31.5 PG (27.0-31.0) Mean Corpuscular Hemoglobin Concent 32.2 G/DL (32.0-36.0) Red Cell Distribution Width 16.8 % (11.6-14.8) Platelet Count 410 K/UL (150-450) Mean Platelet Volume 6.8 FL (6.5-10.1) Neutrophils (%) (Auto) % (45.0-75.0) Lymphocytes (%) (Auto) % (20.0-45.0) Monocytes (%) (Auto) % (1.0-10.0) Eosinophils (%) (Auto) % (0.0-3.0) Basophils (%) (Auto) % (0.0-2.0) Differential Total Cells Counted 100 Neutrophils % (Manual) 79 % (45-75) Lymphocytes % (Manual) 5 % (20-45) Monocytes % (Manual) 9 % (1-10) Eosinophils % (Manual) 1 % (0-3) Basophils % (Manual) 0 % (0-2) Band Neutrophils 6 % (0-8) Platelet Estimate Adequate Platelet Morphology Normal Polychromasia 1+ Hypochromasia 2+ Anisocytosis 1+ Sodium Level 138 MMOL/L (136-145) Potassium Level 4.8 MMOL/L (3.5-5.1) Chloride Level 106 MMOL/L (98-107) Carbon Dioxide Level 26 MMOL/L (21-32) Anion Gap 7 mmol/L (5-15) Blood Urea Nitrogen 4 mg/dL (7-18) Creatinine 0.6 MG/DL (0.55-1.30) Estimat Glomerular Filtration Rate > 60 mL/min (>60) Glucose Level 97 MG/DL (74-106) Uric Acid 1.0 MG/DL (2.6-7.2) Calcium Level 7.9 MG/DL (8.5-10.1) Phosphorus Level 3.5 MG/DL (2.5-4.9) Magnesium Level 1.7 MG/DL (1.8-2.4) Total Bilirubin 9.6 MG/DL (0.2-1.0) Direct Bilirubin 7.1 MG/DL (0.0-0.3) Gamma Glutamyl Transpeptidase 661 U/L (5-85) Aspartate Amino Transf (AST/SGOT) 257 U/L (15-37) Alanine Aminotransferase (ALT/SGPT) 82 U/L (12-78) Alkaline Phosphatase 299 U/L (46-116) C-Reactive Protein, Quantitative 5.8 mg/dL (0.00-0.90) Pro-B-Type Natriuretic Peptide 559 pg/mL (0-125) Total Protein 6.1 G/DL (6.4-8.2) Albumin 1.5 G/DL (3.4-5.0) Globulin 4.6 g/dL Albumin/Globulin Ratio 0.3 (1.0-2.7) Folate 23.6 NG/ML (8.6-58.9) Urine Color Yellow Urine Appearance Clear Urine pH 7 (4.5-8.0) Urine Specific [place] 1.005 (1.005-1.035) Urine Protein Negative (NEGATIVE) Urine Glucose (UA) Negative (NEGATIVE) Urine Ketones Negative (NEGATIVE) Urine Blood 1+ (NEGATIVE) Urine Nitrite Negative (NEGATIVE) Urine Bilirubin 2+ (NEGATIVE) Urine Ictotest Positive (NEGATIVE) Urine Urobilinogen 1 MG/DL (0.0-1.0) Urine Leukocyte Esterase 1+ (NEGATIVE) Urine RBC 0-2 /HPF (0 - 0) Urine WBC 0-2 /HPF (0 - 0) Urine Squamous Epithelial Cells Occasional /LPF Urine Bacteria Occasional /HPF (NONE) Height (Feet): 5 Height (Inches): 5.00 Weight (Pounds): 188 Objective Gen: NAD HEENT: atraumatic, other - OGT Lungs: clear, VENT++ Heart: HR/BP unstable Abdomen: soft, non-tender, active bowel sounds Extremities: no cce, L femoral cath+ Robert Johnston MD Feb 25, 2019 14:34
--- NOTE | 2019-02-25 15:00 | NUR ---
NURSE NOTES: Family at bedside. Patient awake, Patient is still tachypneic. Patient is tolerating tube feeding.
--- NOTE | 2019-02-25 17:00 | NUR ---
NURSE NOTES: Bed bath provided.
--- NOTE | 2019-02-25 17:12 | Nephrology Progress Note ---
Assessment/Plan Problem List: (1) STEFANI (acute kidney injury) Assessment: Cr lower (2) Septic shock (3) Electrolyte and fluid disorder (4) Abnormal LFTs Assessment: fatty liver (5) Hyperbilirubinemia Assessment - STEFANI (acute kidney injury) - Septic shock - Lactic acid acidosis - Abnormal LFTs - Gastrointestinal bleed - Alcohol withdrawal seizure Plan K and Mag and Phos supplement as needed discussed with RN PRN Albumin bolus for low bp Midodrine start feeding Hemodynamic support Pressors / Fluids as needed Aim to correct the electrolyte and acid base imbalance monitor renal parameters gastric support switch dilantin to keppra as LFTs rising per orders Subjective ROS Limited/Unobtainable: Yes Objective Objective Last 24 Hour Vital Signs Date Time Temp Pulse Resp B/P (MAP) Pulse Ox O2 Delivery O2 Flow Rate FiO2 02/25/19 17:01 107 35 40 02/25/19 16:00 40 02/25/19 16:00 97.9 109 30 138/79 (98) 99 02/25/19 16:00 Mechanical Ventilator 02/25/19 15:25 104 02/25/19 15:24 103 18 40 02/25/19 15:00 103 36 123/75 (91) 100 02/25/19 14:00 106 33 140/79 (99) 99 02/25/19 13:30 104 37 40 02/25/19 13:00 108 31 123/78 (93) 98 02/25/19 12:00 98.0 107 33 121/80 (94) 99 02/25/19 12:00 Mechanical Ventilator 02/25/19 12:00 40 02/25/19 11:17 109 02/25/19 11:00 105 35 124/78 (93) 92 02/25/19 10:48 105 36 40 02/25/19 10:45 40 02/25/19 10:00 98 33 116/81 (93) 98 02/25/19 09:26 102 37 50 02/25/19 09:26 97 02/25/19 09:00 103 36 120/82 (95) 99 02/25/19 08:00 50 02/25/19 08:00 97.8 104 36 125/81 (96) 96 02/25/19 08:00 Mechanical Ventilator 02/25/19 07:49 104 38 50 02/25/19 07:24 101 02/25/19 07:00 102 35 124/74 (91) 99 02/25/19 06:00 104 33 131/80 (97) 95 02/25/19 05:00 108 32 128/74 (92) 95 02/25/19 05:00 108 36 50 02/25/19 04:00 106 02/25/19 04:00 Mechanical Ventilator 02/25/19 04:00 50 02/25/19 04:00 98.2 111 36 121/78 (92) 97 02/25/19 03:10 107 35 50 02/25/19 03:00 106 36 122/74 (90) 95 02/25/19 02:00 100 36 107/75 (86) 98 02/25/19 01:12 104 37 50 02/25/19 01:00 105 38 126/79 (95) 99 02/25/19 00:00 98.1 107 29 129/73 (91) 97 02/25/19 00:00 103 02/25/19 00:00 Mechanical Ventilator 02/24/19 23:00 109 39 118/77 (91) 94 02/24/19 23:00 105 35 50 02/24/19 22:30 101 112/76 02/24/19 22:00 103 33 130/76 (94) 96 02/24/19 21:00 101 38 50 02/24/19 21:00 106 38 112/76 (88) 95 02/24/19 20:00 98.0 105 37 117/79 (92) 93 02/24/19 20:00 50 02/24/19 20:00 102 02/24/19 20:00 Mechanical Ventilator 02/24/19 19:00 96 35 50 02/24/19 19:00 102 28 110/86 (94) 93 02/24/19 18:00 93 28 107/66 (80) 97 Intake and Output 02/24/19 02/25/19 19:00 07:00 Intake Total 2501.333 ml 965.000 ml Output Total 2225 ml 2400 ml Balance 276.333 ml -1435.000 ml Free Water 155 ml IV Total 1846.333 ml 485.000 ml Tube Feeding 480 ml 480 ml Other 20 ml Output Urine Total 1625 ml 1750 ml Stool Total 600 ml 650 ml Laboratory Tests 02/25/19 05:25: White Blood Count 36.3*H, Red Blood Count 2.63L, Hemoglobin 8.3L, Hematocrit 25.8L, Mean Corpuscular Volume 98, Mean Corpuscular Hemoglobin 31.5H, Mean Corpuscular Hemoglobin Concent 32.2, Red Cell Distribution Width 16.8H, Platelet Count 410, Mean Platelet Volume 6.8, Neutrophils (%) (Auto) , Lymphocytes (%) (Auto) , Monocytes (%) (Auto) , Eosinophils (%) (Auto) , Basophils (%) (Auto) , Differential Total Cells Counted 100, Neutrophils % ( Manual) 79H, Lymphocytes % (Manual) 5L, Monocytes % (Manual) 9, Eosinophils % ( Manual) 1, Basophils % (Manual) 0, Band Neutrophils 6, Platelet Estimate Adequate, Platelet Morphology Normal, Polychromasia 1+, Hypochromasia 2+, Anisocytosis 1+, Sodium Level 138, Potassium Level 4.8#, Chloride Level 106, Carbon Dioxide Level 26, Anion Gap 7, Blood Urea Nitrogen 4L, Creatinine 0.6, Estimat Glomerular Filtration Rate > 60, Glucose Level 97, Uric Acid 1.0L, Calcium Level 7.9L, Phosphorus Level 3.5, Magnesium Level 1.7L, Total Bilirubin 9.6H, Direct Bilirubin 7.1H, Gamma Glutamyl Transpeptidase 661H, Aspartate Amino Transf (AST/SGOT) 257H, Alanine Aminotransferase (ALT/SGPT) 82H, Alkaline Phosphatase 299H, C-Reactive Protein, Quantitative 5.8H, Pro-B-Type Natriuretic Peptide 559H, Total Protein 6.1L, Albumin 1.5L, Globulin 4.6, Albumin/Globulin Ratio 0.3L, Folate 23.6 02/25/19 09:05: Urine Color Yellow, Urine Appearance Clear, Urine pH 7, Urine Specific [place] 1.005, Urine Protein Negative, Urine Glucose (UA) Negative, Urine Ketones Negative, Urine Blood 1+H, Urine Nitrite Negative, Urine Bilirubin 2+H, Urine Ictotest Positive, Urine Urobilinogen 1H, Urine Leukocyte Esterase 1+H, Urine RBC 0-2H, Urine WBC 0-2, Urine Squamous Epithelial Cells Occasional, Urine Bacteria Occasional Height (Feet): 5 Height (Inches): 5.00 Weight (Pounds): 188 General Appearance: no apparent distress EENT: other - vented Cardiovascular: tachycardia Respiratory/Chest: decreased breath sounds Abdomen: distended Objective no change Scotty Bailon MD Feb 25, 2019 17:12
--- NOTE | 2019-02-25 19:06 | NUR ---
HAND-OFF: Report given to ESHA Cates.
--- NOTE | 2019-02-25 19:07 | NUR ---
NURSE NOTES: Received report from ESHA Ponce. Patient is drowsy. ETT size 8/24cm at lip line and venting setting AC 26, TV 500, FiO2 40%, Peep 5. O2Sat noted with 97-99%. Still noted with tachypnea 30s. OGT intact and running with Vital AF 1.2 @40ml/hr. Rectal tube intact. Aguilar intact and draining with yellow urine by gravity. Right upper arm PICC line intact and clean. Still on bilateral soft wrist restraints. Skin intact and clean on restraints site. Bilateral radial pulses are palpable. Kept HOB>30. Call light placed in easy reach. Will continue plan of care.
--- NOTE | 2019-02-25 20:05 | NUR ---
NURSE NOTES: Oral care provided and repositioned patient.
--- NOTE | 2019-02-25 20:14 | Surgery Progress Note ---
Surgery Progress Note Subjective Procedure Performed left femoral central venous catheter insertion Additional Comments liver enzymes worsening exam stable leukocytosis off pressors still requiring vent support Objective Last 24 Hour Vital Signs Date Time Temp Pulse Resp B/P (MAP) Pulse Ox O2 Delivery O2 Flow Rate FiO2 02/25/19 19:00 100 33 109/77 (88) 100 02/25/19 18:47 103 34 40 02/25/19 18:00 107 30 117/74 (88) 98 02/25/19 17:01 107 35 40 02/25/19 17:00 105 31 134/83 (100) 100 02/25/19 16:00 40 02/25/19 16:00 97.9 109 30 138/79 (98) 99 02/25/19 16:00 Mechanical Ventilator 02/25/19 15:25 104 02/25/19 15:24 103 18 40 02/25/19 15:00 103 36 123/75 (91) 100 02/25/19 14:00 106 33 140/79 (99) 99 02/25/19 13:30 104 37 40 02/25/19 13:00 108 31 123/78 (93) 98 02/25/19 12:00 98.0 107 33 121/80 (94) 99 02/25/19 12:00 Mechanical Ventilator 02/25/19 12:00 40 02/25/19 11:17 109 02/25/19 11:00 105 35 124/78 (93) 92 02/25/19 10:48 105 36 40 02/25/19 10:45 40 02/25/19 10:00 98 33 116/81 (93) 98 02/25/19 09:26 102 37 50 02/25/19 09:26 97 02/25/19 09:00 103 36 120/82 (95) 99 02/25/19 08:00 50 02/25/19 08:00 97.8 104 36 125/81 (96) 96 02/25/19 08:00 Mechanical Ventilator 02/25/19 07:49 104 38 50 02/25/19 07:24 101 02/25/19 07:00 102 35 124/74 (91) 99 02/25/19 06:00 104 33 131/80 (97) 95 02/25/19 05:00 108 32 128/74 (92) 95 02/25/19 05:00 108 36 50 02/25/19 04:00 106 02/25/19 04:00 Mechanical Ventilator 02/25/19 04:00 50 02/25/19 04:00 98.2 111 36 121/78 (92) 97 02/25/19 03:10 107 35 50 02/25/19 03:00 106 36 122/74 (90) 95 02/25/19 02:00 100 36 107/75 (86) 98 02/25/19 01:12 104 37 50 02/25/19 01:00 105 38 126/79 (95) 99 02/25/19 00:00 98.1 107 29 129/73 (91) 97 02/25/19 00:00 103 02/25/19 00:00 Mechanical Ventilator 02/24/19 23:00 109 39 118/77 (91) 94 02/24/19 23:00 105 35 50 02/24/19 22:30 101 112/76 02/24/19 22:00 103 33 130/76 (94) 96 02/24/19 21:00 101 38 50 02/24/19 21:00 106 38 112/76 (88) 95 I&O Intake and Output 02/24/19 02/25/19 19:00 07:00 Intake Total 2501.333 ml 965.000 ml Output Total 2225 ml 2400 ml Balance 276.333 ml -1435.000 ml Free Water 155 ml IV Total 1846.333 ml 485.000 ml Tube Feeding 480 ml 480 ml Other 20 ml Output Urine Total 1625 ml 1750 ml Stool Total 600 ml 650 ml Cardiovascular: RSR Respiratory: decreased breath sounds Abdomen: soft, present bowel sounds, non-distended Extremities: no tenderness, no cyanosis Laboratory Tests Test 02/25/19 05:25 02/25/19 09:05 White Blood Count 36.3 K/UL (4.8-10.8) *H Red Blood Count 2.63 M/UL (4.70-6.10) L Hemoglobin 8.3 G/DL (14.2-18.0) L Hematocrit 25.8 % (42.0-52.0) L Mean Corpuscular Volume 98 FL (80-99) Mean Corpuscular Hemoglobin 31.5 PG (27.0-31.0) H Mean Corpuscular Hemoglobin Concent 32.2 G/DL (32.0-36.0) Red Cell Distribution Width 16.8 % (11.6-14.8) H Platelet Count 410 K/UL (150-450) Mean Platelet Volume 6.8 FL (6.5-10.1) Neutrophils (%) (Auto) % (45.0-75.0) Lymphocytes (%) (Auto) % (20.0-45.0) Monocytes (%) (Auto) % (1.0-10.0) Eosinophils (%) (Auto) % (0.0-3.0) Basophils (%) (Auto) % (0.0-2.0) Differential Total Cells Counted 100 Neutrophils % (Manual) 79 % (45-75) H Lymphocytes % (Manual) 5 % (20-45) L Monocytes % (Manual) 9 % (1-10) Eosinophils % (Manual) 1 % (0-3) Basophils % (Manual) 0 % (0-2) Band Neutrophils 6 % (0-8) Platelet Estimate Adequate Platelet Morphology Normal Polychromasia 1+ Hypochromasia 2+ Anisocytosis 1+ Sodium Level 138 MMOL/L (136-145) Potassium Level 4.8 MMOL/L (3.5-5.1) # Chloride Level 106 MMOL/L (98-107) Carbon Dioxide Level 26 MMOL/L (21-32) Anion Gap 7 mmol/L (5-15) Blood Urea Nitrogen 4 mg/dL (7-18) L Creatinine 0.6 MG/DL (0.55-1.30) Estimat Glomerular Filtration Rate > 60 mL/min (>60) Glucose Level 97 MG/DL (74-106) Uric Acid 1.0 MG/DL (2.6-7.2) L Calcium Level 7.9 MG/DL (8.5-10.1) L Phosphorus Level 3.5 MG/DL (2.5-4.9) Magnesium Level 1.7 MG/DL (1.8-2.4) L Total Bilirubin 9.6 MG/DL (0.2-1.0) H Direct Bilirubin 7.1 MG/DL (0.0-0.3) H Gamma Glutamyl Transpeptidase 661 U/L (5-85) H Aspartate Amino Transf (AST/SGOT) 257 U/L (15-37) H Alanine Aminotransferase (ALT/SGPT) 82 U/L (12-78) H Alkaline Phosphatase 299 U/L (46-116) H C-Reactive Protein, Quantitative 5.8 mg/dL (0.00-0.90) H Pro-B-Type Natriuretic Peptide 559 pg/mL (0-125) H Total Protein 6.1 G/DL (6.4-8.2) L Albumin 1.5 G/DL (3.4-5.0) L Globulin 4.6 g/dL Albumin/Globulin Ratio 0.3 (1.0-2.7) L Folate 23.6 NG/ML (8.6-58.9) Urine Color Yellow Urine Appearance Clear Urine pH 7 (4.5-8.0) Urine Specific [place] 1.005 (1.005-1.035) Urine Protein Negative (NEGATIVE) Urine Glucose (UA) Negative (NEGATIVE) Urine Ketones Negative (NEGATIVE) Urine Blood 1+ (NEGATIVE) H Urine Nitrite Negative (NEGATIVE) Urine Bilirubin 2+ (NEGATIVE) H Urine Ictotest Positive (NEGATIVE) Urine Urobilinogen 1 MG/DL (0.0-1.0) H Urine Leukocyte Esterase 1+ (NEGATIVE) H Urine RBC 0-2 /HPF (0 - 0) H Urine WBC 0-2 /HPF (0 - 0) Urine Squamous Epithelial Cells Occasional /LPF Urine Bacteria Occasional /HPF (NONE) Plan Problems: (1) Non-compliance Assessment & Plan: Noncompliance with seizure medication with known history of seizures Now had seizure Appreciate neurology input (2) Electrolyte and fluid disorder Assessment & Plan: Likely due to EtOH use and dehydration IV hydration Trend labs (3) Fever (4) Oral thrush (5) Diarrhea (6) Aspiration pneumonia (7) Seizure disorder (8) Tachycardia (9) Altered mental status (10) Alcohol withdrawal seizure (11) Alcohol withdrawal seizure (12) Episode of confusion (13) Coffee ground emesis (14) Gastrointestinal bleed Assessment & Plan: Patient on admission identified to have maroon-colored stool and coffee-ground emesis. Labs noted mild anemia with H&H trending down. No acute active bleed noted but given patient's history high risk for potential ulcers. PPI Appreciate GI input considerations for EGD once stable No evidence of pulmonary embolus, aortic dissection or aneurysm. Posterior basilar consolidation suspicious for pneumonia. Correlate clinically. Trace bilateral pleural effusions. Possible enterocolitis as described above. Please correlate clinically. Mild ascites Fatty liver Cholelithiasis with wall thickening. Cholecystitis not excluded. Small right inguinal hernia containing fat Extensive breathing motion artifact limiting evaluation. We will follow with recommendations thank you (15) Sinus tachycardia (16) Septic shock (17) Sepsis Assessment & Plan: Patient septic leukocytosis improved today lactic acidosis improving anemia renal function declining electrolyte disturbance US noted on pressors now but weaning on IV abx intubated on vent support cont with aggressive resuscitation US noted again. liver decompensated delgaod (18) Lactic acid acidosis (19) STEFANI (acute kidney injury) (20) Abnormal LFTs (21) High anion gap metabolic acidosis Juanpablo Marcus Feb 25, 2019 20:14
[2019-02-25] MEDS: Dyna-Hex 2% Top Sol 2oz TOPIC SCH (20:30)
--- NOTE | 2019-02-25 22:05 | NUR ---
NURSE NOTES: Due medication given as ordered. No distress/SOB noted. Will continue plan of care.
[2019-02-25] MEDS: Phenylephrine 50 MG in D5W 245 ML IV SCH (22:30)
[2019-02-26] VITALS (24 sets, daily range): BP systolic 104–136; BP diastolic 61–86
--- NOTE | 2019-02-26 00:20 | NUR ---
NURSE NOTES: Oral care provided and repositioned patient. No distress noted. Will continue plan of care.
--- NOTE | 2019-02-26 02:02 | NUR ---
NURSE NOTES: Repositioned patient.
--- NOTE | 2019-02-26 04:00 | NUR ---
NURSE NOTES: Hold tube feeding for HIDA scan.
--- NOTE | 2019-02-26 04:11 | NUR ---
NURSE NOTES: Full bed bath given. Repositioned patient. Oral care provided. No distress noted. Will continue plan of care.
[2019-02-26] MEDS: LORazepam Inj 2mg/ml 1ml IV PRN ×3 (05:08→20:26)
--- NOTE | 2019-02-26 05:40 | NUR ---
NURSE NOTES: Due medication given as ordered.
--- NOTE | 2019-02-26 07:22 | NUR ---
RESPIRATORY NOTE: received pt orally intubated with ETT 7.5, placed 24cm at the lip secured by anchor fast. no redness visible around facial area. alarms are set and audible with ambu bag at bedside. will cont to monitor.
--- NOTE | 2019-02-26 07:22 | NUR ---
NURSE NOTES: Report received from ESHA Kumar
--- NOTE | 2019-02-26 07:30 | NUR ---
HAND-OFF: Report given to ESHA Manjarrez. Endorsed plan of care.
--- NOTE | 2019-02-26 07:49 | NUR ---
RADIOLOGY DEPT., CHEST X-RAY DONE.-P.DYE
--- NOTE | 2019-02-26 08:06 | NUR ---
NURSE NOTES: Patient awake when received, skin appearance yellowish, afebrile at this time.Orally intubated atb 03/31 AC 26 VT500, FiO2 40% Peep 5.PICC LINE BAUDILIO/DL,patent running TKO.On Vital AF 1.2 at 40cc , on hold for HIDA scan.OGT placement check and intact. Bilateral soft wrist restraint with no apparent skin impairment noted at this time.Side rails pads with no episode seizure at this time. Aguilar catheter care in place draining yellowish urine with no apparent sediments.Rectal tube in place with greenish liquid like stool.Call light in reach at this time.Will continue to monitor.
--- NOTE | 2019-02-26 08:12 | Urology Progress Note ---
Assessment/Plan Status: not improved, unchanged Assessment/Plan: 1. Gross hematuria history, improved. 2. Urinary retention. 3. Probable neurogenic bladder. 4. Urinary tract infection history. 5. Sepsis history. monitor clinically delgado indwelling hand irrigated and do PRN abx as ordered f/u on blood cx renal fxn stable Subjective Allergies: Coded Allergies: No Known Allergies (Unverified , 02/10/15) Subjective all noted, vent Objective Last 24 Hour Vital Signs Date Time Temp Pulse Resp B/P (MAP) Pulse Ox O2 Delivery O2 Flow Rate FiO2 02/26/19 07:20 94 27 40 02/26/19 07:00 94 27 106/61 (76) 100 02/26/19 06:00 99 32 114/69 (84) 100 02/26/19 05:00 109 31 133/86 (102) 100 02/26/19 04:55 107 34 40 02/26/19 04:00 102 02/26/19 04:00 40 02/26/19 04:00 97.7 99 32 125/78 (94) 100 02/26/19 04:00 Mechanical Ventilator 02/26/19 03:04 105 35 40 02/26/19 03:00 101 32 111/68 (82) 97 02/26/19 02:00 109 35 122/79 (93) 100 02/26/19 01:00 111 29 119/73 (88) 100 02/26/19 00:52 109 33 40 02/26/19 00:00 112 02/26/19 00:00 Mechanical Ventilator 02/26/19 00:00 98.0 108 33 120/70 (87) 99 02/26/19 00:00 40 02/25/19 23:00 111 28 125/77 (93) 100 02/25/19 22:52 104 31 40 02/25/19 22:00 98 30 114/72 (86) 100 02/25/19 21:00 108 31 118/75 (89) 98 02/25/19 20:44 100 30 40 02/25/19 20:00 98 02/25/19 20:00 97.7 95 31 102/72 (82) 100 02/25/19 20:00 Mechanical Ventilator 02/25/19 20:00 40 02/25/19 19:00 100 33 109/77 (88) 100 02/25/19 18:47 103 34 40 02/25/19 18:00 107 30 117/74 (88) 98 02/25/19 17:01 107 35 40 02/25/19 17:00 105 31 134/83 (100) 100 02/25/19 16:00 40 02/25/19 16:00 97.9 109 30 138/79 (98) 99 02/25/19 16:00 Mechanical Ventilator 02/25/19 15:25 104 02/25/19 15:24 103 18 40 02/25/19 15:00 103 36 123/75 (91) 100 02/25/19 14:00 106 33 140/79 (99) 99 02/25/19 13:30 104 37 40 02/25/19 13:00 108 31 123/78 (93) 98 02/25/19 12:00 98.0 107 33 121/80 (94) 99 02/25/19 12:00 Mechanical Ventilator 02/25/19 12:00 40 02/25/19 11:17 109 02/25/19 11:00 105 35 124/78 (93) 92 02/25/19 10:48 105 36 40 02/25/19 10:45 40 02/25/19 10:00 98 33 116/81 (93) 98 02/25/19 09:26 102 37 50 02/25/19 09:26 97 02/25/19 09:00 103 36 120/82 (95) 99 Intake and Output 02/25/19 02/26/19 19:00 07:00 Intake Total 1462.500 ml 990.000 ml Output Total 2115 ml 2460 ml Balance -652.500 ml -1470.000 ml IV Total 922.500 ml 630.000 ml Tube Feeding 480 ml 360 ml Other 60 ml Output Urine Total 1915 ml 2280 ml Stool Total 200 ml 180 ml Microbiology Date/Time Source Procedure Growth Status 02/22/19 19:32 Blood Blood Culture - Preliminary NO GROWTH AFTER 72 HOURS Resulted 02/20/19 14:00 Sputum Induced Gram Stain - Final Complete 02/20/19 14:00 Sputum Culture - Final Luciana Albicans Complete 02/22/19 23:55 Stool Clostridium difficile Toxin Assay - Final Complete 02/25/19 09:05 Indwelling Cath Urine Culture - Preliminary NO GROWTH Resulted Current Medications Medications (Trade) Dose Ordered Sig/Tonny Route PRN Reason Start Time Stop Time Status Last Admin Dose Admin Acetaminophen (Tylenol) 650 mg Q4H PRN ORAL Mild Pain (Pain Scale 1-3) 02/16/19 00:30 03/16/19 12:29 02/17/19 04:53 Acetaminophen (Tylenol) 650 mg Q4H PRN RECTAL Mild Pain (Pain Scale 1-3) 02/16/19 04:30 03/18/19 04:29 02/16/19 04:31 Cefepime HCl 2 gm/ Dextrose 55 ml @ 110 mls/hr EVERY 12 HOURS IVPB 02/25/19 11:30 03/04/19 11:29 02/25/19 20:29 Chlorhexidine Gluconate (Stephanie-Hex 2%) 1 applic DAILY@2000 TOPIC 02/19/19 20:00 03/21/19 19:59 02/25/19 20:30 Dextrose (Dextrose 50%) 25 ml Q30M PRN IV Hypoglycemia 02/15/19 22:15 03/16/19 16:14 Dextrose (Dextrose 50%) 50 ml Q30M PRN IV Hypoglycemia 02/15/19 22:15 03/16/19 16:14 02/16/19 06:32 Lactobacillus Acidophilus (Culturelle) 1 tab EVERY 12 HOURS ORAL 02/25/19 21:00 03/26/19 17:59 02/25/19 20:30 Lansoprazole (Prevacid) 30 mg EVERY 12 HOURS NG 02/25/19 21:00 03/26/19 17:59 02/25/19 20:30 Levetiracetam 100 ml @ 400 mls/hr Q12HR IVPB 02/19/19 09:00 03/21/19 08:59 02/25/19 20:29 Lorazepam (Ativan 2mg/ml 1ml) 1 mg Q4H PRN IV For Anxiety 02/25/19 11:00 03/04/19 10:59 02/26/19 05:08 Metronidazole 100 ml @ 100 mls/hr Q8HR IVPB 02/25/19 14:00 03/04/19 13:59 02/26/19 05:03 Micafungin Sodium 100 mg/Sodium Chloride 110 ml @ 110 mls/hr Q24H IVPB 02/25/19 10:30 03/04/19 10:29 02/25/19 10:33 Midodrine (Pro-Amatine) 2.5 mg THREE TIMES A DAY ORAL 02/24/19 15:00 03/26/19 14:59 02/25/19 08:39 Norepinephrine Bitartrate 8 mg/ Dextrose 508 ml @ 0 mls/hr Q24H IV 02/16/19 09:30 03/18/19 09:29 02/23/19 09:37 Ondansetron HCl (Zofran) 4 mg Q6H PRN IVP Nausea & Vomiting 02/16/19 01:00 03/16/19 12:59 02/24/19 18:50 Phenylephrine HCl 50 mg/Dextrose 250 ml @ 0 mls/hr Q24H IV 02/16/19 22:30 03/18/19 22:29 Spironolactone (Aldactone) 50 mg EVERY 12 HOURS NG 02/24/19 21:00 03/24/19 20:59 02/25/19 20:30 Thiamine HCl (Vitamin B1) 100 mg DAILY NG 02/25/19 09:00 03/27/19 08:59 02/25/19 08:39 Vancomycin HCl (Vanco rx to dose) 1 ea DAILY PRN MISC Per rx protocol 02/16/19 09:00 03/17/19 12:59 Vancomycin HCl/ Dextrose 275 ml @ 183.333 mls/hr Q12HR@1000,2200 IVPB 02/24/19 22:00 03/01/19 21:59 02/25/19 22:11 Vasopressin 100 units/Sodium Chloride 100 ml @ 0 mls/hr Q24H IV 02/16/19 08:15 03/18/19 08:14 02/16/19 08:15 Laboratory Tests 02/25/19 09:05: Urine Color Yellow, Urine Appearance Clear, Urine pH 7, Urine Specific [place] 1.005, Urine Protein Negative, Urine Glucose (UA) Negative, Urine Ketones Negative, Urine Blood 1+H, Urine Nitrite Negative, Urine Bilirubin 2+H, Urine Ictotest Positive, Urine Urobilinogen 1H, Urine Leukocyte Esterase 1+H, Urine RBC 0-2H, Urine WBC 0-2, Urine Squamous Epithelial Cells Occasional, Urine Bacteria Occasional Height (Feet): 5 Height (Inches): 5.00 Weight (Pounds): 188 Objective exam stable, urine clearing Jeremy Matta MD Feb 26, 2019 08:12
[2019-02-26] MEDS: Vasopressin 100 UNITS in NS 95 ML IV SCH (08:15)
--- NOTE | 2019-02-26 08:18 | NUR ---
RESPIRATORY NOTE: pt placed on CPAP PS 8 at 0815. will cont to monitor.
[2019-02-26 08:29] LABS: HEMATOCRIT 23.9 % (42.0-52.0); HEMOGLOBIN 7.9 G/DL (14.2-18.0); MEAN CORPUSCULAR VOLUME 97 FL (80-99); PLATELET COUNT 400 K/UL (150-450); RED BLOOD COUNT 2.46 M/UL (4.70-6.10); RED CELL DISTRIBUTION WIDTH 16.2 % (11.6-14.8)
[2019-02-26 08:32] LABS: WHITE BLOOD COUNT 27.8 K/UL (4.8-10.8)
[2019-02-26 08:50] LABS: ALANINE AMINOTRANSFERASE 68 U/L (12-78); ALBUMIN 1.4 G/DL (3.4-5.0); ALBUMIN/GLOBULIN RATIO 0.3 (1.0-2.7); ALKALINE PHOSPHATASE 279 U/L (46-116); ANION GAP 1 mmol/L (5-15); ASPARTATE AMINO TRANSFERASE 197 U/L (15-37); BILIRUBIN,TOTAL 9.9 MG/DL (0.2-1.0); BLOOD UREA NITROGEN 6 mg/dL (7-18); CALCIUM 7.8 MG/DL (8.5-10.1); CARBON DIOXIDE 29 MMOL/L (21-32); CHLORIDE 107 MMOL/L (98-107); CREATININE 0.6 MG/DL (0.55-1.30); SODIUM 137 MMOL/L (136-145)
[2019-02-26 08:51] LABS: BILIRUBIN,DIRECT 8.6 MG/DL (0.0-0.3)
--- NOTE | 2019-02-26 08:55 | NUR ---
NURSE NOTES: Seen by Dr Powell,made aware Hgb 7.9, order to continue monitor
[2019-02-26] MEDS: Thiamine 100mg tab NG SCH (09:09)
[2019-02-26] MEDS: levETIRAcetam 500mg/NS100ml 100 ML IVPB SCH ×2 (09:09→20:31)
[2019-02-26] MEDS: Spironolactone 50mg tab NG SCH ×2 (09:09→20:33)
[2019-02-26] MEDS: Cefepime HCl 2 GM in D5W 55 ML IVPB SCH ×2 (09:09→20:32)
[2019-02-26] MEDS: Lactobacillus-GG tablet ORAL SCH ×2 (09:11→20:32)
[2019-02-26] MEDS: Vancomycin 275 ML IVPB SCH ×2 (09:29→21:41)
[2019-02-26] MEDS: Micafungin 100 MG in NS 110 ML IVPB SCH (09:29)
--- NOTE | 2019-02-26 09:44 | NUR ---
NURSE NOTES: Patient taken down for HIDA scan.Will continue to monitor
--- NOTE | 2019-02-26 10:22 | General Progress Note ---
Assessment/Plan Status: not improved, unchanged Assessment/Plan: 54 year old male with pMH of seizure disorder and etoh abuse admitted for seizures 2/2 non-compliance # Transaminitis - f/u HIDA - ctm - appreciate GI and Sx input - us shows nodularity and chronic disease - hep panel negative - ggt increased #severe septic shock likely 2/2 UTI #Gram negative bacteremia, now resolved by surveillance follow up blood culture #Acute respiratory failure requiting intubation -Vanc and Zosyn - gentamicin - Fluconazole per ID - Re culture ordered due to severe increase in the WBC from 15 to 26 to 29 thousand of unclear etiology - Hematology consult noted to be due to sepsis. - CBC serial. - CT 02/18 with atelectasis primarily - Diuresis started and good response -ID consult appreciated - Immunoglobulin and hepatitis panel negative. -cont ICU care -intubated and mild sedation. He follows commands well. FAILED weaning trial. -vent management per pulmonary -Titrate pressors to goal map >65 -abg prn - Reviewed CT chest/abd/pel #Lactic acidosis -2/2 severe shock/ poss abd source/ seizures - 2 D Echo on 02/16 with EF 65%. Discussed with cardiology and etiology likely sepsis and not cardiogenic -CTM -Fluid boluses completed. -Cont mIVF #Coagulopathy # Thrombocytopenia - 40,000 stable Monitor. No active bleeding toay. - Hematology consult with Dr. Johnston appreciated. Flow cytometry pending. -likely 2/2 hepatic injury 2/2 shock - Consumption coagulopathy. - Consider platelet transfusion if LESS than 30K with urine blood tinge color. #Coffee ground emesis likely in setting of GI bleed -H/H trending down. Monitor -GI consult appreciated -Plan for EGD once stable. Cancelled until the patient is hemodynamically more stable, OFF pressors transition and now back on low dose LEVOPHED 3 mcg - -surgery consult appreciated #Seizures 2/2 noncomplaint with AED -s/p phenytoin load in ED -Cont Phenytoin -Neurology consult appreciated -pending EEG - no seizures noted in last 24 hours -Ativan PRN for seizures -NPO -Seizure precautions #Hypokalemia - Replete as needed #hypophosphatemia - Repleted. #Hypomagnesemia -repleted -CTM # Urethral hemorrhage and clot evacuation - Discussed with Dr. Matta over the phone and bleeding stopped spontaneously, No formal urology consult for now in place. - If recurrent hemorrhage will address. - H/H and INR stat today. - Consider PRBC and Platelets if Hb < 8 or Plt < 30 K # Urinary retention PVR > 300 cc WILKINSON replaced 02/[address] ( in case of repeat hemorrhage ) D/w RN Code: Full Subjective Date patient seen: Feb 26, 2019 ROS Limited/Unobtainable: Yes Allergies: Coded Allergies: No Known Allergies (Unverified , 02/10/15) Subjective patient seen after HIDA sister at bedside reports patient is less alert than yesterday Objective Last 24 Hour Vital Signs Date Time Temp Pulse Resp B/P (MAP) Pulse Ox O2 Delivery O2 Flow Rate FiO2 02/26/19 09:11 119/76 02/26/19 09:00 104 41 121/74 (90) 97 02/26/19 08:16 100 37 40 02/26/19 08:15 99 02/26/19 08:00 Mechanical Ventilator 02/26/19 08:00 98.4 99 35 121/77 (92) 100 02/26/19 08:00 40 02/26/19 07:20 94 27 40 02/26/19 07:00 94 27 106/61 (76) 100 02/26/19 06:00 99 32 114/69 (84) 100 02/26/19 05:00 109 31 133/86 (102) 100 02/26/19 04:55 107 34 40 02/26/19 04:00 102 02/26/19 04:00 40 02/26/19 04:00 97.7 99 32 125/78 (94) 100 02/26/19 04:00 Mechanical Ventilator 02/26/19 03:04 105 35 40 02/26/19 03:00 101 32 111/68 (82) 97 02/26/19 02:00 109 35 122/79 (93) 100 02/26/19 01:00 111 29 119/73 (88) 100 02/26/19 00:52 109 33 40 02/26/19 00:00 112 02/26/19 00:00 Mechanical Ventilator 02/26/19 00:00 98.0 108 33 120/70 (87) 99 02/26/19 00:00 40 02/25/19 23:00 111 28 125/77 (93) 100 02/25/19 22:52 104 31 40 02/25/19 22:00 98 30 114/72 (86) 100 02/25/19 21:00 108 31 118/75 (89) 98 02/25/19 20:44 100 30 40 02/25/19 20:00 98 02/25/19 20:00 97.7 95 31 102/72 (82) 100 02/25/19 20:00 Mechanical Ventilator 02/25/19 20:00 40 02/25/19 19:00 100 33 109/77 (88) 100 02/25/19 18:47 103 34 40 02/25/19 18:00 107 30 117/74 (88) 98 02/25/19 17:01 107 35 40 02/25/19 17:00 105 31 134/83 (100) 100 02/25/19 16:00 40 02/25/19 16:00 97.9 109 30 138/79 (98) 99 02/25/19 16:00 Mechanical Ventilator 02/25/19 15:25 104 02/25/19 15:24 103 18 40 02/25/19 15:00 103 36 123/75 (91) 100 02/25/19 14:00 106 33 140/79 (99) 99 02/25/19 13:30 104 37 40 02/25/19 13:00 108 31 123/78 (93) 98 02/25/19 12:00 98.0 107 33 121/80 (94) 99 02/25/19 12:00 Mechanical Ventilator 02/25/19 12:00 40 02/25/19 11:17 109 02/25/19 11:00 105 35 124/78 (93) 92 02/25/19 10:48 105 36 40 02/25/19 10:45 40 Intake and Output 02/25/19 02/26/19 19:00 07:00 Intake Total 1462.500 ml 990.000 ml Output Total 2115 ml 2460 ml Balance -652.500 ml -1470.000 ml IV Total 922.500 ml 630.000 ml Tube Feeding 480 ml 360 ml Other 60 ml Output Urine Total 1915 ml 2280 ml Stool Total 200 ml 180 ml Laboratory Tests 02/26/19 08:00: White Blood Count 27.8*H, Red Blood Count 2.46L, Hemoglobin 7.9L, Hematocrit 23.9L, Mean Corpuscular Volume 97, Mean Corpuscular Hemoglobin 32.2H, Mean Corpuscular Hemoglobin Concent 33.3, Red Cell Distribution Width 16.2H, Platelet Count 400, Mean Platelet Volume 6.6, Neutrophils (%) (Auto) , Lymphocytes (%) (Auto) , Monocytes (%) (Auto) , Eosinophils (%) (Auto) , Basophils (%) (Auto) , Differential Total Cells Counted 100, Neutrophils % ( Manual) 73, Lymphocytes % (Manual) 9L, Monocytes % (Manual) 12H, Eosinophils % ( Manual) 2, Basophils % (Manual) 0, Metamyelocytes % 2H, Myelocytes % 1H, Band Neutrophils 1, Platelet Estimate IncreasedH, Platelet Morphology Normal, Anisocytosis 1+, Macrocytosis 1+, Sodium Level 137, Potassium Level 3.0L, Chloride Level 107, Carbon Dioxide Level 29, Anion Gap 1L, Blood Urea Nitrogen 6L, Creatinine 0.6, Estimat Glomerular Filtration Rate > 60, Glucose Level 85, Calcium Level 7.8L, Total Bilirubin 9.9H, Direct Bilirubin 8.6H, Aspartate Amino Transf (AST/SGOT) 197H, Alanine Aminotransferase (ALT/SGPT) 68, Alkaline Phosphatase 279H, Total Protein 5.8L, Albumin 1.4L, Globulin 4.4, Albumin/ Globulin Ratio 0.3L Height (Feet): 5 Height (Inches): 5.00 Weight (Pounds): 182 General Appearance: WD/WN, no apparent distress, other - sedated Neck: non-tender, normal alignment, supple Cardiovascular: regular rhythm, no JVD, tachycardia Respiratory/Chest: lungs clear, normal breath sounds, no respiratory distress Abdomen: non tender, soft, no organomegaly Neurologic: other - sedated and unable to preforms full exam, normal tone, no twitching, eyes open spontaneously, cannot follow commands Skin: jaundice Heather Iglesias DO Feb 26, 2019 10:22
--- NOTE | 2019-02-26 10:33 | GI Progress Note ---
Assessment/Plan Problems: (1) Coffee ground emesis ICD Codes: K92.0 - Hematemesis SNOMED: 02824897 (2) Episode of confusion ICD Codes: R41.0 - Disorientation, unspecified SNOMED: 71563198 (3) Gastrointestinal bleed ICD Codes: K92.2 - Gastrointestinal hemorrhage, unspecified SNOMED: 30182250 (4) Abnormal LFTs ICD Codes: R94.5 - Abnormal results of liver function studies SNOMED: 935938650 (5) Diarrhea ICD Codes: R19.7 - Diarrhea, unspecified SNOMED: 71793670 (6) Electrolyte and fluid disorder ICD Codes: E87.8 - Other disorders of electrolyte and fluid balance, not elsewhere classified SNOMED: 29281484 (7) Sepsis ICD Codes: A41.9 - Sepsis, unspecified organism SNOMED: 10917298 Status: unchanged Status Narrative Discussed with Dr. Bloom. Assessment/Plan Assessment - Resp failure - diarrhea - UGIB - abnormal LFT, negative hepatitis serologies, s/p U/S x 2 (no biliary dilation) - ? cirrhosis and sepsis/hypoperfusion - ? meds - ? cholecystitis - ? alcoholic hepatitis . ? liver failure - cholelithiasis - h/o EtOH, possible early cirrhosis Recommendations - vital TF - probiotics - monitor stool output - abx per ID - d/c tylenol - min duration antifungal Rx - supportive care - EGD once stable - Surgical f/u re GB - Will consider doppler of hepatic vessels The patient was seen and examined at bedside and all new and available data was reviewed in the patients chart. I agree with the above findings, impression and plan. (Patient seen earlier today. Signature stamp does not reflect patient encounter time.). - Jones Bloom MD Subjective Subjective limited Objective Last 24 Hour Vital Signs Date Time Temp Pulse Resp B/P (MAP) Pulse Ox O2 Delivery O2 Flow Rate FiO2 02/26/19 10:00 96 26 108/64 (79) 99 02/26/19 09:11 119/76 02/26/19 09:00 104 41 121/74 (90) 97 02/26/19 08:16 100 37 40 02/26/19 08:15 99 02/26/19 08:00 Mechanical Ventilator 02/26/19 08:00 98.4 99 35 121/77 (92) 100 02/26/19 08:00 40 02/26/19 07:20 94 27 40 02/26/19 07:00 94 27 106/61 (76) 100 02/26/19 06:00 99 32 114/69 (84) 100 02/26/19 05:00 109 31 133/86 (102) 100 02/26/19 04:55 107 34 40 02/26/19 04:00 102 02/26/19 04:00 40 02/26/19 04:00 97.7 99 32 125/78 (94) 100 02/26/19 04:00 Mechanical Ventilator 02/26/19 03:04 105 35 40 02/26/19 03:00 101 32 111/68 (82) 97 02/26/19 02:00 109 35 122/79 (93) 100 02/26/19 01:00 111 29 119/73 (88) 100 02/26/19 00:52 109 33 40 02/26/19 00:00 112 02/26/19 00:00 Mechanical Ventilator 02/26/19 00:00 98.0 108 33 120/70 (87) 99 02/26/19 00:00 40 02/25/19 23:00 111 28 125/77 (93) 100 02/25/19 22:52 104 31 40 02/25/19 22:00 98 30 114/72 (86) 100 02/25/19 21:00 108 31 118/75 (89) 98 02/25/19 20:44 100 30 40 02/25/19 20:00 98 02/25/19 20:00 97.7 95 31 102/72 (82) 100 02/25/19 20:00 Mechanical Ventilator 02/25/19 20:00 40 02/25/19 19:00 100 33 109/77 (88) 100 02/25/19 18:47 103 34 40 02/25/19 18:00 107 30 117/74 (88) 98 02/25/19 17:01 107 35 40 02/25/19 17:00 105 31 134/83 (100) 100 02/25/19 16:00 40 02/25/19 16:00 97.9 109 30 138/79 (98) 99 02/25/19 16:00 Mechanical Ventilator 02/25/19 15:25 104 02/25/19 15:24 103 18 40 7/21/19 15:00 103 36 123/75 (91) 100 02/25/19 14:00 106 33 140/79 (99) 99 02/25/19 13:30 104 37 40 02/25/19 13:00 108 31 123/78 (93) 98 02/25/19 12:00 98.0 107 33 121/80 (94) 99 02/25/19 12:00 Mechanical Ventilator 02/25/19 12:00 40 02/25/19 11:17 109 02/25/19 11:00 105 35 124/78 (93) 92 02/25/19 10:48 105 36 40 02/25/19 10:45 40 Intake and Output 02/25/19 02/26/19 19:00 07:00 Intake Total 1462.500 ml 990.000 ml Output Total 2115 ml 2460 ml Balance -652.500 ml -1470.000 ml IV Total 922.500 ml 630.000 ml Tube Feeding 480 ml 360 ml Other 60 ml Output Urine Total 1915 ml 2280 ml Stool Total 200 ml 180 ml Laboratory Tests Test 02/26/19 08:00 White Blood Count 27.8 K/UL (4.8-10.8) *H Red Blood Count 2.46 M/UL (4.70-6.10) L Hemoglobin 7.9 G/DL (14.2-18.0) L Hematocrit 23.9 % (42.0-52.0) L Mean Corpuscular Volume 97 FL (80-99) Mean Corpuscular Hemoglobin 32.2 PG (27.0-31.0) H Mean Corpuscular Hemoglobin Concent 33.3 G/DL (32.0-36.0) Red Cell Distribution Width 16.2 % (11.6-14.8) H Platelet Count 400 K/UL (150-450) Mean Platelet Volume 6.6 FL (6.5-10.1) Neutrophils (%) (Auto) % (45.0-75.0) Lymphocytes (%) (Auto) % (20.0-45.0) Monocytes (%) (Auto) % (1.0-10.0) Eosinophils (%) (Auto) % (0.0-3.0) Basophils (%) (Auto) % (0.0-2.0) Differential Total Cells Counted 100 Neutrophils % (Manual) 73 % (45-75) Lymphocytes % (Manual) 9 % (20-45) L Monocytes % (Manual) 12 % (1-10) H Eosinophils % (Manual) 2 % (0-3) Basophils % (Manual) 0 % (0-2) Metamyelocytes % 2 % (0-0) H Myelocytes % 1 % (0-0) H Band Neutrophils 1 % (0-8) Platelet Estimate Increased H Platelet Morphology Normal Anisocytosis 1+ Macrocytosis 1+ Sodium Level 137 MMOL/L (136-145) Potassium Level 3.0 MMOL/L (3.5-5.1) L Chloride Level 107 MMOL/L (98-107) Carbon Dioxide Level 29 MMOL/L (21-32) Anion Gap 1 mmol/L (5-15) L Blood Urea Nitrogen 6 mg/dL (7-18) L Creatinine 0.6 MG/DL (0.55-1.30) Estimat Glomerular Filtration Rate > 60 mL/min (>60) Glucose Level 85 MG/DL (74-106) Calcium Level 7.8 MG/DL (8.5-10.1) L Total Bilirubin 9.9 MG/DL (0.2-1.0) H Direct Bilirubin 8.6 MG/DL (0.0-0.3) H Aspartate Amino Transf (AST/SGOT) 197 U/L (15-37) H Alanine Aminotransferase (ALT/SGPT) 68 U/L (12-78) Alkaline Phosphatase 279 U/L (46-116) H Total Protein 5.8 G/DL (6.4-8.2) L Albumin 1.4 G/DL (3.4-5.0) L Globulin 4.4 g/dL Albumin/Globulin Ratio 0.3 (1.0-2.7) L Height (Feet): 5 Height (Inches): 5.00 Weight (Pounds): 182 General Appearance: WD/WN, no apparent distress, alert Cardiovascular: normal rate Respiratory/Chest: normal breath sounds, no respiratory distress Abdominal Exam: normal bowel sounds, non tender, soft, GT site Extremities: non-tender Juno Naranjo [employer] Feb 26, 2019 10:33
--- NOTE | 2019-02-26 10:34 | NUR ---
NURSE NOTES: Ongoing HIDA scan, no apparent acute distress.Will continue to monitor. Patient seen by Dr Dr Mckoy,will follow up with new order
--- NOTE | 2019-02-26 10:40 | NUR ---
RESPIRATORY NOTE: pt placed back on AC due to procedure. brought pt down at 0940.
[2019-02-26] MEDS ORDERED: Morphine Sulfate 2mg/ml Inj(IV/IM USE ONLY) IVP SCH ×2 (11:15)
--- NOTE | 2019-02-26 11:25 | NUR ---
NURSE NOTES: Patient given 2mg Morphine per Dr Jorge at nuclear labs, unable to scan, ongoing HIDA scan.
--- NOTE | 2019-02-26 11:35 | NUR ---
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 98.4 HR 107 RR 35 B/P 121/77 AC 26 TV 500 FIO2 40% PEEP 5 WBC 27.8 H/H 7.9/23.8 K 3.0 MAG 1.6 IS: MICAFUNGIN IV CEFEPIME IV FLAGYL IV VANCO IV KEPPRA IV POTASSIUM IV X 1 MAGNESIUM IV X1 WEANING PROTOCOL ICU STATUS
--- NOTE | 2019-02-26 12:06 | NUR ---
NURSE NOTES: Ongoing HIDA scan,no apparent acute distress.Will continue to monitor
--- NOTE | 2019-02-26 12:15 | NUR ---
NURSE NOTES: Patient seen by Dr Harris, will follow up with new orders.Patient remains in nuclear lab for ongoing HIDA scan with no apparent acute distress noted qat this time
--- NOTE | 2019-02-26 12:23 | Pulmonolgy Critical Care Note ---
Critical Care - Asmt/Plan Problems: (1) Seizure disorder (2) Endotracheally intubated (3) Septic shock (4) Sepsis (5) Sinus tachycardia (6) Lactic acid acidosis (7) High anion gap metabolic acidosis (8) STEFANI (acute kidney injury) (9) Abnormal LFTs (10) Coffee ground emesis (11) Gastrointestinal bleed (12) Altered mental status (13) Alcohol withdrawal seizure (14) Ventilator dependent Assessment/Plan: Continue ventilatory support/settings reviewed Weaning trials as able Monitor volumes, PRN lasi Titrate NE Abx per ID F/U HIDA F/U GI recs, PPI, EGD when stable, ? colo Monitor counts, transfuse as neded Monitor for EtOH w/drawal, PRN ativan Continue AEDs, monitor for Sz's, F/U neuro recs FC CCT 35 Critical Care - Objective Last 24 Hour Vital Signs Date Time Temp Pulse Resp B/P (MAP) Pulse Ox O2 Delivery O2 Flow Rate FiO2 02/26/19 12:00 40 02/26/19 12:00 94 26 107/70 (82) 99 02/26/19 12:00 Mechanical Ventilator 02/26/19 11:56 98.4 02/26/19 11:00 105 26 117/68 (84) 99 02/26/19 10:00 96 26 108/64 (79) 99 02/26/19 09:11 119/76 02/26/19 09:00 104 41 121/74 (90) 97 02/26/19 08:16 100 37 40 02/26/19 08:15 99 02/26/19 08:00 Mechanical Ventilator 02/26/19 08:00 98.4 99 35 121/77 (92) 100 02/26/19 08:00 93 02/26/19 08:00 40 02/26/19 07:20 94 27 40 02/26/19 07:00 94 27 106/61 (76) 100 02/26/19 06:00 99 32 114/69 (84) 100 02/26/19 05:00 109 31 133/86 (102) 100 02/26/19 04:55 107 34 40 02/26/19 04:00 102 02/26/19 04:00 40 02/26/19 04:00 97.7 99 32 125/78 (94) 100 02/26/19 04:00 Mechanical Ventilator 02/26/19 03:04 105 35 40 02/26/19 03:00 101 32 111/68 (82) 97 02/26/19 02:00 109 35 122/79 (93) 100 02/26/19 01:00 111 29 119/73 (88) 100 02/26/19 00:52 109 33 40 02/26/19 00:00 112 02/26/19 00:00 Mechanical Ventilator 02/26/19 00:00 98.0 108 33 120/70 (87) 99 02/26/19 00:00 40 02/25/19 23:00 111 28 125/77 (93) 100 02/25/19 22:52 104 31 40 02/25/19 22:00 98 30 114/72 (86) 100 02/25/19 21:00 108 31 118/75 (89) 98 02/25/19 20:44 100 30 40 02/25/19 20:00 98 02/25/19 20:00 97.7 95 31 102/72 (82) 100 02/25/19 20:00 Mechanical Ventilator 02/25/19 20:00 40 02/25/19 19:00 100 33 109/77 (88) 100 02/25/19 18:47 103 34 40 02/25/19 18:00 107 30 117/74 (88) 98 02/25/19 17:01 107 35 40 02/25/19 17:00 105 31 134/83 (100) 100 02/25/19 16:00 40 02/25/19 16:00 97.9 109 30 138/79 (98) 99 02/25/19 16:00 Mechanical Ventilator 02/25/19 15:25 104 02/25/19 15:24 103 18 40 02/25/19 15:00 103 36 123/75 (91) 100 02/25/19 14:00 106 33 140/79 (99) 99 02/25/19 13:30 104 37 40 02/25/19 13:00 108 31 123/78 (93) 98 Status: awake - intubated Condition: critical HEENT: atraumatic, normocephalic Lungs: rhonchi Heart: HR/BP unstable Abdomen: soft, non-tender, active bowel sounds Extremities: no C/C/E Micro: Microbiology Date/Time Source Procedure Growth Status 02/25/19 09:05 Indwelling Cath Urine Culture - Preliminary NO GROWTH Resulted Accucheck: 33 Blood Sugars: BS controlled Critical Care - Subjective ROS Limited/Unobtainable: Yes ICU Day: 12 Intubation Day: 11 Interval Events: LFT inc AFVSS stable on vent getting HIDA Condition: critical IV Access: PICC EKG Rhythm: Sinus Rhythm FI02: 40 Vent Support Breath Rate: 26 Vent Support Mode: AC Vent Tidal Volume: 500 Sputum Amount: Small PEEP: 5.0 PIP: 14 Secretions: None Fluids: SLIV Drips: NE Tube Feeding Amount: 0 I&O: Intake and Output 02/25/19 02/26/19 19:00 07:00 Intake Total 1462.500 ml 990.000 ml Output Total 2115 ml 2460 ml Balance -652.500 ml -1470.000 ml IV Total 922.500 ml 630.000 ml Tube Feeding 480 ml 360 ml Other 60 ml Output Urine Total 1915 ml 2280 ml Stool Total 200 ml 180 ml Subjective: [place] ET-Tube: 8.0 ET Position: 24 Labs: Laboratory Tests Test 02/26/19 08:00 White Blood Count 27.8 K/UL (4.8-10.8) *H Red Blood Count 2.46 M/UL (4.70-6.10) L Hemoglobin 7.9 G/DL (14.2-18.0) L Hematocrit 23.9 % (42.0-52.0) L Mean Corpuscular Volume 97 FL (80-99) Mean Corpuscular Hemoglobin 32.2 PG (27.0-31.0) H Mean Corpuscular Hemoglobin Concent 33.3 G/DL (32.0-36.0) Red Cell Distribution Width 16.2 % (11.6-14.8) H Platelet Count 400 K/UL (150-450) Mean Platelet Volume 6.6 FL (6.5-10.1) Neutrophils (%) (Auto) % (45.0-75.0) Lymphocytes (%) (Auto) % (20.0-45.0) Monocytes (%) (Auto) % (1.0-10.0) Eosinophils (%) (Auto) % (0.0-3.0) Basophils (%) (Auto) % (0.0-2.0) Differential Total Cells Counted 100 Neutrophils % (Manual) 73 % (45-75) Lymphocytes % (Manual) 9 % (20-45) L Monocytes % (Manual) 12 % (1-10) H Eosinophils % (Manual) 2 % (0-3) Basophils % (Manual) 0 % (0-2) Metamyelocytes % 2 % (0-0) H Myelocytes % 1 % (0-0) H Band Neutrophils 1 % (0-8) Platelet Estimate Increased H Platelet Morphology Normal Anisocytosis 1+ Macrocytosis 1+ Sodium Level 137 MMOL/L (136-145) Potassium Level 3.0 MMOL/L (3.5-5.1) L Chloride Level 107 MMOL/L (98-107) Carbon Dioxide Level 29 MMOL/L (21-32) Anion Gap 1 mmol/L (5-15) L Blood Urea Nitrogen 6 mg/dL (7-18) L Creatinine 0.6 MG/DL (0.55-1.30) Estimat Glomerular Filtration Rate > 60 mL/min (>60) Glucose Level 85 MG/DL (74-106) Calcium Level 7.8 MG/DL (8.5-10.1) L Magnesium Level 1.6 MG/DL (1.8-2.4) L Total Bilirubin 9.9 MG/DL (0.2-1.0) H Direct Bilirubin 8.6 MG/DL (0.0-0.3) H Aspartate Amino Transf (AST/SGOT) 197 U/L (15-37) H Alanine Aminotransferase (ALT/SGPT) 68 U/L (12-78) Alkaline Phosphatase 279 U/L (46-116) H Total Protein 5.8 G/DL (6.4-8.2) L Albumin 1.4 G/DL (3.4-5.0) L Globulin 4.4 g/dL Albumin/Globulin Ratio 0.3 (1.0-2.7) L Han Harris MD Feb 26, 2019 12:23
--- NOTE | 2019-02-26 12:31 | Hematology/Onc Progress Note ---
Assessment/Plan Assessment/Plan # Bicytopenia with anemia likely due to Gi bleed -- stool occult blood +, requires further eval with gi, also with etoh withdrawal, also can be related to meds/abx --> anemia panel has been reviewed and results are acd --> peripheral smear reviewed and not noted to have blasts --> wbc remains elevated --> started on folate 1mg po daily (LOW FOLATE) --> Flow cytometry shows no evidence of b-lymphoproliferative disorder --> Hep panel negative --> 02/26 --> ONGOING HIDA SCAN # Anemia of chronic disease, per anemia panel --> hgb trend 8-->7-->8-->9-->8.6-->7.7-->7.9-->8.3-->7.9 --> may require gi eval when more stable with scope (EGD) --> transfuse if hb <7 --> cont folic acid and thiamine # Sinus tachycardia up to 170s. No evidence of acute myocardial infarction . --> This is likely due to sepsis and anemia, alcohol withdrawal --> Echo Nl EF 60% # Leukocytosis due to Septic shock and severe Lactic acidosis on Levophed and broad-spectrum IV antibiotics. --> per ID care, continue abx --> pressor as needed --> vanc/zosyn, flucon --> Hgb trend: 34.9 -->28k # Troponin leak, type 2. --> per cards # Respiratory failure on the vent. Failed weaning --> sbt trial per pulm --> on vent # ETOH withdrawal # Seizures with noncompliance Greatly appreciate consultation. Subjective Constitutional: Denies: no symptoms, chills, fever, malaise, weakness, other HEENT: Denies: no symptoms, eye pain, blurred vision, tearing, double vision, ear pain, ear discharge, nose pain, nose congestion, throat pain, throat swelling, mouth pain, mouth swelling, other Cardiovascular: Denies: no symptoms, chest pain, edema, irregular heart rate, lightheadedness, palpitations, syncope, other Gastrointestinal/Abdominal: Denies: no symptoms, abdomen distended, abdominal pain, black stools, tarry stools, blood in stool, constipated, diarrhea, difficulty swallowing, nausea, poor appetite, poor fluid intake, rectal bleeding , vomiting, other Endocrine: Denies: no symptoms, excessive sweating, flushing, intolerance to cold, intolerance to heat, increased hunger, increased thirst, increased urine, unexplained weight gain, unexplained weight loss, other Hematologic/Lymphatic: Denies: no symptoms, anemia, easy bleeding, easy bruising, adenopathy, other Allergies: Coded Allergies: No Known Allergies (Unverified , 02/10/15) Subjective 02/20: intubated, counts are better, on vent, sbt in process, no f/c, mag low 02/21: endoscopy on hold at this time, bloody stool, plt better, on abx 02/22: no events reported, remains intubated, no bleeding, plt better, k is low, repleted\ 02/23: remains in icu, letargic, flow cytometry showed no evidence of b- lymphoproliferative disorder, c-diif negative, labs reviewed, remains on levo 02/24: in icu, on vent, wbc at 32, id made aware. 02/25: icu, weaning off of vent, labs reviewed, continues on abx 02/26: no fc, no changes reported, wbc high, ongoing hida scan Objective Objective Current Medications Medications (Trade) Dose Ordered Sig/Tonny Route PRN Reason Start Time Stop Time Status Last Admin Dose Admin Acetaminophen (Tylenol) 650 mg Q4H PRN ORAL Mild Pain (Pain Scale 1-3) 02/16/19 00:30 03/16/19 12:29 02/17/19 04:53 Acetaminophen (Tylenol) 650 mg Q4H PRN RECTAL Mild Pain (Pain Scale 1-3) 02/16/19 04:30 03/18/19 04:29 02/16/19 04:31 Cefepime HCl 2 gm/ Dextrose 55 ml @ 110 mls/hr EVERY 12 HOURS IVPB 02/25/19 11:30 03/04/19 11:29 02/26/19 09:09 Chlorhexidine Gluconate (Stephanie-Hex 2%) 1 applic DAILY@1999 TOPIC 02/19/19 20:00 03/21/19 19:59 02/25/19 20:30 Dextrose (Dextrose 50%) 25 ml Q30M PRN IV Hypoglycemia 02/15/19 22:15 03/16/19 16:14 Dextrose (Dextrose 50%) 50 ml Q30M PRN IV Hypoglycemia 02/15/19 22:15 03/16/19 16:14 02/16/19 06:32 Lactobacillus Acidophilus (Culturelle) 1 tab EVERY 12 HOURS ORAL 02/25/19 21:00 03/26/19 17:59 02/26/19 09:11 Lansoprazole (Prevacid) 30 mg EVERY 12 HOURS NG 02/25/19 21:00 03/26/19 17:59 02/26/19 09:09 Levetiracetam 100 ml @ 400 mls/hr Q12HR IVPB 02/19/19 09:00 03/21/19 08:59 02/26/19 09:09 Lorazepam (Ativan 2mg/ml 1ml) 1 mg Q4H PRN IV For Anxiety 02/25/19 11:00 03/04/19 10:59 02/26/19 05:08 Magnesium Sulfate 100 ml @ 100 mls/hr Q1H IVPB 02/26/19 11:00 02/26/19 14:59 Metronidazole 100 ml @ 100 mls/hr Q8HR IVPB 02/25/19 14:00 03/04/19 13:59 02/26/19 05:03 Micafungin Sodium 100 mg/Sodium Chloride 110 ml @ 110 mls/hr Q24H IVPB 02/25/19 10:30 03/04/19 10:29 02/26/19 09:29 Midodrine (Pro-Amatine) 2.5 mg THREE TIMES A DAY ORAL 02/24/19 15:00 03/26/19 14:59 02/26/19 09:09 Norepinephrine Bitartrate 8 mg/ Dextrose 508 ml @ 0 mls/hr Q24H IV 02/16/19 09:30 03/18/19 09:29 02/23/19 09:37 Ondansetron HCl (Zofran) 4 mg Q6H PRN IVP Nausea & Vomiting 02/16/19 01:00 03/16/19 12:59 02/24/19 18:50 Phenylephrine HCl 50 mg/Dextrose 250 ml @ 0 mls/hr Q24H IV 02/16/19 22:30 03/18/19 22:29 Potassium Chloride 100 ml @ 50 mls/hr Q2H IVPB 02/26/19 11:00 02/26/19 14:59 Potassium Chloride 100 ml @ 100 mls/hr ONCE ONCE IVPB 02/26/19 15:00 02/26/19 15:59 Spironolactone (Aldactone) 50 mg EVERY 12 HOURS NG 02/24/19 21:00 03/24/19 20:59 02/26/19 09:09 Thiamine HCl (Vitamin B1) 100 mg DAILY NG 02/25/19 09:00 03/27/19 08:59 02/26/19 09:09 Vancomycin HCl (Vanco rx to dose) 1 ea DAILY PRN MISC Per rx protocol 02/16/19 09:00 03/17/19 12:59 Vancomycin HCl/ Dextrose 275 ml @ 183.333 mls/hr Q12HR@1000,2200 IVPB 02/24/19 22:00 03/01/19 21:59 02/26/19 09:29 Vasopressin 100 units/Sodium Chloride 100 ml @ 0 mls/hr Q24H IV 02/16/19 08:15 03/18/19 08:14 02/16/19 08:15 Last 24 Hour Vital Signs Date Time Temp Pulse Resp B/P (MAP) Pulse Ox O2 Delivery O2 Flow Rate FiO2 02/26/19 12:00 40 02/26/19 12:00 94 26 107/70 (82) 99 02/26/19 12:00 Mechanical Ventilator 02/26/19 11:56 98.4 02/26/19 11:00 105 26 117/68 (84) 99 02/26/19 10:00 96 26 108/64 (79) 99 02/26/19 09:11 119/76 02/26/19 09:00 104 41 121/74 (90) 97 02/26/19 08:16 100 37 40 02/26/19 08:15 99 02/26/19 08:00 Mechanical Ventilator 02/26/19 08:00 98.4 99 35 121/77 (92) 100 02/26/19 08:00 93 02/26/19 08:00 40 02/26/19 07:20 94 27 40 02/26/19 07:00 94 27 106/61 (76) 100 02/26/19 06:00 99 32 114/69 (84) 100 02/26/19 05:00 109 31 133/86 (102) 100 02/26/19 04:55 107 34 40 02/26/19 04:00 102 02/26/19 04:00 40 02/26/19 04:00 97.7 99 32 125/78 (94) 100 02/26/19 04:00 Mechanical Ventilator 02/26/19 03:04 105 35 40 02/26/19 03:00 101 32 111/68 (82) 97 02/26/19 02:00 109 35 122/79 (93) 100 02/26/19 01:00 111 29 119/73 (88) 100 02/26/19 00:52 109 33 40 02/26/19 00:00 112 02/26/19 00:00 Mechanical Ventilator 02/26/19 00:00 98.0 108 33 120/70 (87) 99 02/26/19 00:00 40 02/25/19 23:00 111 28 125/77 (93) 100 02/25/19 22:52 104 31 40 02/25/19 22:00 98 30 114/72 (86) 100 02/25/19 21:00 108 31 118/75 (89) 98 02/25/19 20:44 100 30 40 02/25/19 20:00 98 02/25/19 20:00 97.7 95 31 102/72 (82) 100 02/25/19 20:00 Mechanical Ventilator 02/25/19 20:00 40 02/25/19 19:00 100 33 109/77 (88) 100 02/25/19 18:47 103 34 40 02/25/19 18:00 107 30 117/74 (88) 98 02/25/19 17:01 107 35 40 02/25/19 17:00 105 31 134/83 (100) 100 02/25/19 16:00 40 02/25/19 16:00 97.9 109 30 138/79 (98) 99 02/25/19 16:00 Mechanical Ventilator 02/25/19 15:25 104 02/25/19 15:24 103 18 40 02/25/19 15:00 103 36 123/75 (91) 100 02/25/19 14:00 106 33 140/79 (99) 99 02/25/19 13:30 104 37 40 02/25/19 13:00 108 31 123/78 (93) 98 7/21/19 12:00 98.0 107 33 121/80 (94) 99 02/25/19 12:00 Mechanical Ventilator 02/25/19 12:00 40 02/25/19 11:17 109 02/25/19 11:00 105 35 124/78 (93) 92 02/25/19 10:48 105 36 40 02/25/19 10:45 40 02/25/19 10:00 98 33 116/81 (93) 98 02/25/19 09:26 102 37 50 02/25/19 09:26 97 02/25/19 09:00 103 36 120/82 (95) 99 02/25/19 08:00 50 02/25/19 08:00 97.8 104 36 125/81 (96) 96 02/25/19 08:00 Mechanical Ventilator 02/25/19 07:49 104 38 50 02/25/19 07:24 101 02/25/19 07:00 102 35 124/74 (91) 99 02/25/19 06:00 104 33 131/80 (97) 95 02/25/19 05:00 108 32 128/74 (92) 95 02/25/19 05:00 108 36 50 02/25/19 04:00 106 02/25/19 04:00 Mechanical Ventilator 02/25/19 04:00 50 02/25/19 04:00 98.2 111 36 121/78 (92) 97 02/25/19 03:10 107 35 50 02/25/19 03:00 106 36 122/74 (90) 95 02/25/19 02:00 100 36 107/75 (86) 98 02/25/19 01:12 104 37 50 02/25/19 01:00 105 38 126/79 (95) 99 02/25/19 00:00 98.1 107 29 129/73 (91) 97 02/25/19 00:00 103 02/25/19 00:00 Mechanical Ventilator 02/24/19 23:00 109 39 118/77 (91) 94 02/24/19 23:00 105 35 50 02/24/19 22:30 101 112/76 02/24/19 22:00 103 33 130/76 (94) 96 02/24/19 21:00 101 38 50 02/24/19 21:00 106 38 112/76 (88) 95 02/24/19 20:00 98.0 105 37 117/79 (92) 93 02/24/19 20:00 50 02/24/19 20:00 102 02/24/19 20:00 Mechanical Ventilator 02/24/19 19:00 96 35 50 02/24/19 19:00 102 28 110/86 (94) 93 02/24/19 18:00 93 28 107/66 (80) 97 02/24/19 17:00 97 34 112/73 (86) 96 02/24/19 16:51 87 30 50 02/24/19 16:00 50 02/24/19 16:00 102 02/24/19 16:00 Mechanical Ventilator 02/24/19 16:00 98.1 96 34 110/70 (83) 96 02/24/19 15:00 103 32 117/73 (88) 97 02/24/19 14:51 95 30 50 02/24/19 14:00 93 30 108/64 (79) 98 02/24/19 13:00 96 32 105/70 (82) 98 02/24/19 12:50 93 33 50 Intake and Output 02/25/19 02/26/19 19:00 07:00 Intake Total 1462.500 ml 990.000 ml Output Total 2115 ml 2460 ml Balance -652.500 ml -1470.000 ml IV Total 922.500 ml 630.000 ml Tube Feeding 480 ml 360 ml Other 60 ml Output Urine Total 1915 ml 2280 ml Stool Total 200 ml 180 ml Labs Test 02/24/19 04:20 02/24/19 16:00 02/25/19 05:25 02/25/19 09:05 White Blood Count 32.0 K/UL (4.8-10.8) 36.3 K/UL (4.8-10.8) Red Blood Count 2.45 M/UL (4.70-6.10) 2.63 M/UL (4.70-6.10) Hemoglobin 7.9 G/DL (14.2-18.0) 8.3 G/DL (14.2-18.0) Hematocrit 23.2 % (42.0-52.0) 25.8 % (42.0-52.0) Mean Corpuscular Volume 95 FL (80-99) 98 FL (80-99) Mean Corpuscular Hemoglobin 32.1 PG (27.0-31.0) 31.5 PG (27.0-31.0) Mean Corpuscular Hemoglobin Concent 33.9 G/DL (32.0-36.0) 32.2 G/DL (32.0-36.0) Red Cell Distribution Width 15.8 % (11.6-14.8) 16.8 % (11.6-14.8) Platelet Count 360 K/UL (150-450) 410 K/UL (150-450) Mean Platelet Volume 7.1 FL (6.5-10.1) 6.8 FL (6.5-10.1) Neutrophils (%) (Auto) % (45.0-75.0) % (45.0-75.0) Lymphocytes (%) (Auto) % (20.0-45.0) % (20.0-45.0) Monocytes (%) (Auto) % (1.0-10.0) % (1.0-10.0) Eosinophils (%) (Auto) % (0.0-3.0) % (0.0-3.0) Basophils (%) (Auto) % (0.0-2.0) % (0.0-2.0) Differential Total Cells Counted 100 100 Neutrophils % (Manual) 78 % (45-75) 79 % (45-75) Lymphocytes % (Manual) 13 % (20-45) 5 % (20-45) Monocytes % (Manual) 4 % (1-10) 9 % (1-10) Eosinophils % (Manual) 4 % (0-3) 1 % (0-3) Basophils % (Manual) 1 % (0-2) 0 % (0-2) Band Neutrophils 0 % (0-8) 6 % (0-8) Platelet Estimate Adequate Adequate Platelet Morphology Normal Normal Hypochromasia 3+ 2+ Anisocytosis 1+ 1+ Spherocytes 2+ Sodium Level 141 MMOL/L (136-145) 138 MMOL/L (136-145) Potassium Level 2.7 MMOL/L (3.5-5.1) 4.8 MMOL/L (3.5-5.1) Chloride Level 106 MMOL/L (98-107) 106 MMOL/L (98-107) Carbon Dioxide Level 26 MMOL/L (21-32) 26 MMOL/L (21-32) Anion Gap 8 mmol/L (5-15) 7 mmol/L (5-15) Blood Urea Nitrogen 5 mg/dL (7-18) 4 mg/dL (7-18) Creatinine 0.7 MG/DL (0.55-1.30) 0.6 MG/DL (0.55-1.30) Estimat Glomerular Filtration Rate > 60 mL/min (>60) > 60 mL/min (>60) Glucose Level 92 MG/DL (74-106) 97 MG/DL (74-106) Calcium Level 7.7 MG/DL (8.5-10.1) 7.9 MG/DL (8.5-10.1) Phosphorus Level 3.2 MG/DL (2.5-4.9) 3.5 MG/DL (2.5-4.9) Magnesium Level 1.9 MG/DL (1.8-2.4) 1.7 MG/DL (1.8-2.4) Total Bilirubin 7.0 MG/DL (0.2-1.0) 9.6 MG/DL (0.2-1.0) Direct Bilirubin 5.9 MG/DL (0.0-0.3) 7.1 MG/DL (0.0-0.3) Aspartate Amino Transf (AST/SGOT) 225 U/L (15-37) 257 U/L (15-37) Alanine Aminotransferase (ALT/SGPT) 73 U/L (12-78) 82 U/L (12-78) Alkaline Phosphatase 257 U/L (46-116) 299 U/L (46-116) Total Protein 5.1 G/DL (6.4-8.2) 6.1 G/DL (6.4-8.2) Albumin 1.3 G/DL (3.4-5.0) 1.5 G/DL (3.4-5.0) Globulin 3.8 g/dL 4.6 g/dL Albumin/Globulin Ratio 0.3 (1.0-2.7) 0.3 (1.0-2.7) Ammonia 47 umol/L (11-32) Polychromasia 1+ Uric Acid 1.0 MG/DL (2.6-7.2) Gamma Glutamyl Transpeptidase 661 U/L (5-85) C-Reactive Protein, Quantitative 5.8 mg/dL (0.00-0.90) Pro-B-Type Natriuretic Peptide 559 pg/mL (0-125) Folate 23.6 NG/ML (8.6-58.9) Urine Color Yellow Urine Appearance Clear Urine pH 7 (4.5-8.0) Urine Specific [place] 1.005 (1.005-1.035) Urine Protein Negative (NEGATIVE) Urine Glucose (UA) Negative (NEGATIVE) Urine Ketones Negative (NEGATIVE) Urine Blood 1+ (NEGATIVE) Urine Nitrite Negative (NEGATIVE) Urine Bilirubin 2+ (NEGATIVE) Urine Ictotest Positive (NEGATIVE) Urine Urobilinogen 1 MG/DL (0.0-1.0) Urine Leukocyte Esterase 1+ (NEGATIVE) Urine RBC 0-2 /HPF (0 - 0) Urine WBC 0-2 /HPF (0 - 0) Urine Squamous Epithelial Cells Occasional /LPF Urine Bacteria Occasional /HPF (NONE) Test 02/26/19 08:00 White Blood Count 27.8 K/UL (4.8-10.8) Red Blood Count 2.46 M/UL (4.70-6.10) Hemoglobin 7.9 G/DL (14.2-18.0) Hematocrit 23.9 % (42.0-52.0) Mean Corpuscular Volume 97 FL (80-99) Mean Corpuscular Hemoglobin 32.2 PG (27.0-31.0) Mean Corpuscular Hemoglobin Concent 33.3 G/DL (32.0-36.0) Red Cell Distribution Width 16.2 % (11.6-14.8) Platelet Count 400 K/UL (150-450) Mean Platelet Volume 6.6 FL (6.5-10.1) Neutrophils (%) (Auto) % (45.0-75.0) Lymphocytes (%) (Auto) % (20.0-45.0) Monocytes (%) (Auto) % (1.0-10.0) Eosinophils (%) (Auto) % (0.0-3.0) Basophils (%) (Auto) % (0.0-2.0) Differential Total Cells Counted 100 Neutrophils % (Manual) 73 % (45-75) Lymphocytes % (Manual) 9 % (20-45) Monocytes % (Manual) 12 % (1-10) Eosinophils % (Manual) 2 % (0-3) Basophils % (Manual) 0 % (0-2) Metamyelocytes % 2 % (0-0) Myelocytes % 1 % (0-0) Band Neutrophils 1 % (0-8) Platelet Estimate Increased Platelet Morphology Normal Anisocytosis 1+ Macrocytosis 1+ Sodium Level 137 MMOL/L (136-145) Potassium Level 3.0 MMOL/L (3.5-5.1) Chloride Level 107 MMOL/L (98-107) Carbon Dioxide Level 29 MMOL/L (21-32) Anion Gap 1 mmol/L (5-15) Blood Urea Nitrogen 6 mg/dL (7-18) Creatinine 0.6 MG/DL (0.55-1.30) Estimat Glomerular Filtration Rate > 60 mL/min (>60) Glucose Level 85 MG/DL (74-106) Calcium Level 7.8 MG/DL (8.5-10.1) Magnesium Level 1.6 MG/DL (1.8-2.4) Total Bilirubin 9.9 MG/DL (0.2-1.0) Direct Bilirubin 8.6 MG/DL (0.0-0.3) Aspartate Amino Transf (AST/SGOT) 197 U/L (15-37) Alanine Aminotransferase (ALT/SGPT) 68 U/L (12-78) Alkaline Phosphatase 279 U/L (46-116) Total Protein 5.8 G/DL (6.4-8.2) Albumin 1.4 G/DL (3.4-5.0) Globulin 4.4 g/dL Albumin/Globulin Ratio 0.3 (1.0-2.7) Height (Feet): 5 Height (Inches): 5.00 Weight (Pounds): 182 Objective Gen: NAD HEENT: atraumatic, other - OGT Lungs: clear, VENT++ Heart: HR/BP unstable Abdomen: soft, non-tender, active bowel sounds Extremities: no cce, L femoral cath+ Robert Johnston MD Feb 26, 2019 12:31
--- NOTE | 2019-02-26 12:37 | Diagnostic Imaging Report ---
Indication: Dyspnea Technique: One view of the chest Comparison: 02/22/2019 Findings: Stable satisfactory positions of endotracheal tube, nasogastric tube, right arm PICC. There appears to be decreased pleural fluid on the left. Mild interstitial airspace congestion persists bilaterally. No new infiltrates Impression: Improved left pleural effusion, over 4 days Persistent largely unchanged bilateral interstitial and hazy airspace edema Stable tube and line positions as described
--- NOTE | 2019-02-26 12:50 | NUR ---
RESPIRATORY NOTE: pt returned from procedure, placed back on CPAP to wean. RN notified
--- NOTE | 2019-02-26 12:59 | Nephrology Progress Note ---
Assessment/Plan Problem List: (1) STEFANI (acute kidney injury) Assessment: Cr lower (2) Septic shock (3) Electrolyte and fluid disorder (4) Abnormal LFTs Assessment: fatty liver (5) Hyperbilirubinemia Assessment - STEFANI (acute kidney injury) - Septic shock - Lactic acid acidosis - Abnormal LFTs - Gastrointestinal bleed - Alcohol withdrawal seizure Plan K and Mag and Phos supplement as needed discussed with RN PRN Albumin bolus for low bp Midodrine start feeding Hemodynamic support Pressors / Fluids as needed Aim to correct the electrolyte and acid base imbalance monitor renal parameters gastric support switch dilantin to keppra as LFTs rising per orders Subjective ROS Limited/Unobtainable: Yes Objective Objective Last 24 Hour Vital Signs Date Time Temp Pulse Resp B/P (MAP) Pulse Ox O2 Delivery O2 Flow Rate FiO2 02/26/19 12:49 106 37 02/26/19 12:00 40 02/26/19 12:00 94 26 107/70 (82) 99 02/26/19 12:00 Mechanical Ventilator 02/26/19 11:56 98.4 02/26/19 11:00 105 26 117/68 (84) 99 02/26/19 10:00 96 26 108/64 (79) 99 02/26/19 09:11 119/76 02/26/19 09:00 104 41 121/74 (90) 97 02/26/19 08:16 100 37 40 02/26/19 08:15 99 02/26/19 08:00 Mechanical Ventilator 02/26/19 08:00 98.4 99 35 121/77 (92) 100 02/26/19 08:00 93 02/26/19 08:00 40 02/26/19 07:20 94 27 40 02/26/19 07:00 94 27 106/61 (76) 100 02/26/19 06:00 99 32 114/69 (84) 100 02/26/19 05:00 109 31 133/86 (102) 100 02/26/19 04:55 107 34 40 02/26/19 04:00 102 02/26/19 04:00 40 02/26/19 04:00 97.7 99 32 125/78 (94) 100 02/26/19 04:00 Mechanical Ventilator 02/26/19 03:04 105 35 40 02/26/19 03:00 101 32 111/68 (82) 97 7/22/19 02:00 109 35 122/79 (93) 100 02/26/19 01:00 111 29 119/73 (88) 100 02/26/19 00:52 109 33 40 02/26/19 00:00 112 02/26/19 00:00 Mechanical Ventilator 02/26/19 00:00 98.0 108 33 120/70 (87) 99 02/26/19 00:00 40 02/25/19 23:00 111 28 125/77 (93) 100 02/25/19 22:52 104 31 40 02/25/19 22:00 98 30 114/72 (86) 100 02/25/19 21:00 108 31 118/75 (89) 98 02/25/19 20:44 100 30 40 02/25/19 20:00 98 02/25/19 20:00 97.7 95 31 102/72 (82) 100 02/25/19 20:00 Mechanical Ventilator 02/25/19 20:00 40 02/25/19 19:00 100 33 109/77 (88) 100 02/25/19 18:47 103 34 40 02/25/19 18:00 107 30 117/74 (88) 98 02/25/19 17:01 107 35 40 02/25/19 17:00 105 31 134/83 (100) 100 02/25/19 16:00 40 02/25/19 16:00 97.9 109 30 138/79 (98) 99 02/25/19 16:00 Mechanical Ventilator 02/25/19 15:25 104 02/25/19 15:24 103 18 40 02/25/19 15:00 103 36 123/75 (91) 100 02/25/19 14:00 106 33 140/79 (99) 99 02/25/19 13:30 104 37 40 02/25/19 13:00 108 31 123/78 (93) 98 Intake and Output 02/25/19 02/26/19 19:00 07:00 Intake Total 1462.500 ml 990.000 ml Output Total 2115 ml 2460 ml Balance -652.500 ml -1470.000 ml IV Total 922.500 ml 630.000 ml Tube Feeding 480 ml 360 ml Other 60 ml Output Urine Total 1915 ml 2280 ml Stool Total 200 ml 180 ml Laboratory Tests 02/26/19 08:00: White Blood Count 27.8*H, Red Blood Count 2.46L, Hemoglobin 7.9L, Hematocrit 23.9L, Mean Corpuscular Volume 97, Mean Corpuscular Hemoglobin 32.2H, Mean Corpuscular Hemoglobin Concent 33.3, Red Cell Distribution Width 16.2H, Platelet Count 400, Mean Platelet Volume 6.6, Neutrophils (%) (Auto) , Lymphocytes (%) (Auto) , Monocytes (%) (Auto) , Eosinophils (%) (Auto) , Basophils (%) (Auto) , Differential Total Cells Counted 100, Neutrophils % ( Manual) 73, Lymphocytes % (Manual) 9L, Monocytes % (Manual) 12H, Eosinophils % ( Manual) 2, Basophils % (Manual) 0, Metamyelocytes % 2H, Myelocytes % 1H, Band Neutrophils 1, Platelet Estimate IncreasedH, Platelet Morphology Normal, Anisocytosis 1+, Macrocytosis 1+, Sodium Level 137, Potassium Level 3.0L, Chloride Level 107, Carbon Dioxide Level 29, Anion Gap 1L, Blood Urea Nitrogen 6L, Creatinine 0.6, Estimat Glomerular Filtration Rate > 60, Glucose Level 85, Calcium Level 7.8L, Magnesium Level 1.6L, Total Bilirubin 9.9H, Direct Bilirubin 8.6H, Aspartate Amino Transf (AST/SGOT) 197H, Alanine Aminotransferase (ALT/SGPT) 68, Alkaline Phosphatase 279H, Total Protein 5.8L, Albumin 1.4L, Globulin 4.4, Albumin/Globulin Ratio 0.3L Height (Feet): 5 Height (Inches): 5.00 Weight (Pounds): 182 General Appearance: no apparent distress Objective no change Scotty Bailon MD Feb 26, 2019 12:59
--- NOTE | 2019-02-26 13:00 | Diagnostic Imaging Report ---
Indications: Abnormal liver function tests Technique: IV administration 5.5 mCi 99 M technetium Choletec. Serial images obtained over the abdomen for 2 hrs . At one hour, patient was given 2 mg of morphine IV Comparison: None Findings: There is slow hepatic uptake and excretion; hepatic uptake was overall very limited. Extrahepatic bile ducts are are not clearly identified, but duodenal excretion is demonstrated at about 33 minutes. The gallbladder is not visualized on the images pre morphine, but is visualized about 10 minutes after morphine administration. Impression: Limited hepatic uptake and excretion, probably due to hepatocellular disease. Note that previous imaging studies suggest the presence of cirrhotic changes. Otherwise unremarkable. No evidence of acute cholecystitis or common bile duct obstruction
--- NOTE | 2019-02-26 13:00 | NUR ---
NURSE NOTES: PT PLACED BACK ON CPAP PD 8, SEN BY DR ELIZABETH,WILL FOLLOW UP WITH NEW ORDER
--- NOTE | 2019-02-26 13:33 | Infectious Diseases Prog Note ---
Assessment/Plan Assessment/Plan ASSESSMENT AND PLAN: 1. sepsis, shock, e.coli bacteremia/uti, gram neg sepsis, pna/HCAP, ct noted, sirs, fevers, fungemia but blood cultures negative, leukocytosis worse, c.diff. negative, elevated lft's, ? cholecystitis - abx changed to cefepime, flagyl, vancomycin and micafungin - surveillance blood cultures negative, monitor labs and chest x-ray - icu and supportive care, on vent , off pressors - f/u on HIDA scan 2. History of seizures. Workup per Neurology. 3. Acute kidney injury, likely secondary to sepsis. 4. The patient is anemic. 5. Severe sepsis with leukocytosis. 6. History of ETOH abuse. 7. No known allergies. 8. Family history is noncontributory. 9. MAR was noted. 10. Case was discussed with RN. 11. Social history is positive for ETOH abuse. 12. Poor prognosis. Subjective Constitutional: Denies: fever HEENT: Reports: congestion Respiratory: Reports: shortness of breath Cardiovascular: Reports: other - no pressos; Denies: chest pain Gastrointestinal/Abdominal: Reports: diarrhea; Denies: nausea, vomiting Genitourinary: Reports: other - + delgado Neurologic: Reports: weakness, other Psychiatric: Reports: other - NA Skin: Denies: rash Hematologic: Denies: bleeding Musculoskeletal: Denies: pain Allergies: Coded Allergies: No Known Allergies (Unverified , 02/10/15) Objective Vital Signs Last 24 Hour Vital Signs Date Time Temp Pulse Resp B/P (MAP) Pulse Ox O2 Delivery O2 Flow Rate FiO2 02/26/19 12:49 106 37 02/26/19 12:00 40 02/26/19 12:00 94 26 107/70 (82) 99 02/26/19 12:00 Mechanical Ventilator 02/26/19 11:56 98.4 02/26/19 11:00 105 26 117/68 (84) 99 02/26/19 10:00 96 26 108/64 (79) 99 02/26/19 09:11 119/76 02/26/19 09:00 104 41 121/74 (90) 97 02/26/19 08:16 100 37 40 02/26/19 08:15 99 02/26/19 08:00 Mechanical Ventilator 02/26/19 08:00 98.4 99 35 121/77 (92) 100 02/26/19 08:00 93 02/26/19 08:00 40 02/26/19 07:20 94 27 40 02/26/19 07:00 94 27 106/61 (76) 100 02/26/19 06:00 99 32 114/69 (84) 100 02/26/19 05:00 109 31 133/86 (102) 100 02/26/19 04:55 107 34 40 02/26/19 04:00 102 02/26/19 04:00 40 02/26/19 04:00 97.7 99 32 125/78 (94) 100 02/26/19 04:00 Mechanical Ventilator 02/26/19 03:04 105 35 40 02/26/19 03:00 101 32 111/68 (82) 97 02/26/19 02:00 109 35 122/79 (93) 100 02/26/19 01:00 111 29 119/73 (88) 100 02/26/19 00:52 109 33 40 02/26/19 00:00 112 02/26/19 00:00 Mechanical Ventilator 02/26/19 00:00 98.0 108 33 120/70 (87) 99 02/26/19 00:00 40 02/25/19 23:00 111 28 125/77 (93) 100 02/25/19 22:52 104 31 40 02/25/19 22:00 98 30 114/72 (86) 100 02/25/19 21:00 108 31 118/75 (89) 98 02/25/19 20:44 100 30 40 02/25/19 20:00 98 02/25/19 20:00 97.7 95 31 102/72 (82) 100 02/25/19 20:00 Mechanical Ventilator 02/25/19 20:00 40 02/25/19 19:00 100 33 109/77 (88) 100 02/25/19 18:47 103 34 40 02/25/19 18:00 107 30 117/74 (88) 98 02/25/19 17:01 107 35 40 02/25/19 17:00 105 31 134/83 (100) 100 02/25/19 16:00 40 02/25/19 16:00 97.9 109 30 138/79 (98) 99 02/25/19 16:00 Mechanical Ventilator 02/25/19 15:25 104 02/25/19 15:24 103 18 40 02/25/19 15:00 103 36 123/75 (91) 100 02/25/19 14:00 106 33 140/79 (99) 99 02/25/19 13:30 104 37 40 Height (Feet): 5 Height (Inches): 5.00 Weight (Pounds): 182 General Appearance: no acute distress HEENT: normocephalic, atraumatic, anicteric, mucous membranes moist Respiratory/Chest: crackles/rales, rhonchi - bilaterally Cardiovascular: normal rate, regular rhythm, no gallop/murmur, no JVD Abdomen: normal bowel sounds, soft, non tender, no organomegaly, non distended Genitourinary: other - + delgado Extremities: no cyanosis Skin: no rash Neurologic/Psychiatric: other - oral-intubated Lymphatic: no neck adenopathy Musculoskeletal: no effusion Objective CT abdomen and pelvis: IMPRESSION: No evidence of pulmonary embolus, aortic dissection or aneurysm. Posterior basilar consolidation suspicious for pneumonia. Correlate clinically. Trace bilateral pleural effusions. Possible enterocolitis as described above. Please correlate clinically. Mild ascites Fatty liver Cholelithiasis with wall thickening. Cholecystitis not excluded. Small right inguinal hernia containing fat Extensive breathing motion artifact limiting evaluation. Chest x-ray - 02/17/19 - Procedure: XRAY Chest 1v Indication: Dyspnea Comparison: 02/16/2019 A single view chest radiograph was obtained. Findings: Left basilar consolidation with air bronchograms demonstrated. Costophrenic angle is obscured. Heart size is normal. Tubes and lines are stable and satisfactory in position. IMPRESSION: No significant change from the previous exam Chest x-ray - 02/21/19 - Comparison: 02/17/2019 A single view chest radiograph was obtained. Findings: Diffuse groundglass opacities have increased since the previous occasion. Heart remains normal in size. There is a left pleural effusion likely present. Tubes and lines are stable. A right PICC line is present. The tip is projected over the SVC. IMPRESSION: Worsening pulmonary edema. PICC line in good position. No change otherwise Chest x-ray - 02/22/19 - Findings: Tubes and lines are satisfactory and stable. Heart size is normal and stable. Groundglass opacities noted diffusely. Bilateral basilar consolidation with air bronchograms demonstrated. A probable left pleural effusion is noted. IMPRESSION: Evidence of radiographically stable pulmonary edema which may be noncardiogenic. Basilar consolidation unchanged. Left pleural effusion Chest x-ray - 02/26/19- Technique: One view of the chest Comparison: 02/22/2019 Findings: Stable satisfactory positions of endotracheal tube, nasogastric tube, right arm PICC. There appears to be decreased pleural fluid on the left. Mild interstitial airspace congestion persists bilaterally. No new infiltrates Impression: Improved left pleural effusion, over 4 days Persistent largely unchanged bilateral interstitial and hazy airspace edema Stable tube and line positions as described Microbiology Date/Time Source Procedure Growth Status 02/22/19 19:32 Blood Blood Culture - Preliminary NO GROWTH AFTER 72 HOURS Resulted 02/20/19 14:00 Sputum Induced Gram Stain - Final Complete 02/20/19 14:00 Sputum Culture - Final Luciana Albicans Complete 02/22/19 23:55 Stool Clostridium difficile Toxin Assay - Final Complete 02/25/19 09:05 Indwelling Cath Urine Culture - Preliminary NO GROWTH Resulted Microbiology Date/Time Source Procedure Growth Status 02/25/19 09:05 Indwelling Cath Urine Culture - Preliminary NO GROWTH Resulted Laboratory Tests Test 02/26/19 08:00 White Blood Count 27.8 K/UL (4.8-10.8) *H Red Blood Count 2.46 M/UL (4.70-6.10) L Hemoglobin 7.9 G/DL (14.2-18.0) L Hematocrit 23.9 % (42.0-52.0) L Mean Corpuscular Volume 97 FL (80-99) Mean Corpuscular Hemoglobin 32.2 PG (27.0-31.0) H Mean Corpuscular Hemoglobin Concent 33.3 G/DL (32.0-36.0) Red Cell Distribution Width 16.2 % (11.6-14.8) H Platelet Count 400 K/UL (150-450) Mean Platelet Volume 6.6 FL (6.5-10.1) Neutrophils (%) (Auto) % (45.0-75.0) Lymphocytes (%) (Auto) % (20.0-45.0) Monocytes (%) (Auto) % (1.0-10.0) Eosinophils (%) (Auto) % (0.0-3.0) Basophils (%) (Auto) % (0.0-2.0) Differential Total Cells Counted 100 Neutrophils % (Manual) 73 % (45-75) Lymphocytes % (Manual) 9 % (20-45) L Monocytes % (Manual) 12 % (1-10) H Eosinophils % (Manual) 2 % (0-3) Basophils % (Manual) 0 % (0-2) Metamyelocytes % 2 % (0-0) H Myelocytes % 1 % (0-0) H Band Neutrophils 1 % (0-8) Platelet Estimate Increased H Platelet Morphology Normal Anisocytosis 1+ Macrocytosis 1+ Sodium Level 137 MMOL/L (136-145) Potassium Level 3.0 MMOL/L (3.5-5.1) L Chloride Level 107 MMOL/L (98-107) Carbon Dioxide Level 29 MMOL/L (21-32) Anion Gap 1 mmol/L (5-15) L Blood Urea Nitrogen 6 mg/dL (7-18) L Creatinine 0.6 MG/DL (0.55-1.30) Estimat Glomerular Filtration Rate > 60 mL/min (>60) Glucose Level 85 MG/DL (74-106) Calcium Level 7.8 MG/DL (8.5-10.1) L Magnesium Level 1.6 MG/DL (1.8-2.4) L Total Bilirubin 9.9 MG/DL (0.2-1.0) H Direct Bilirubin 8.6 MG/DL (0.0-0.3) H Aspartate Amino Transf (AST/SGOT) 197 U/L (15-37) H Alanine Aminotransferase (ALT/SGPT) 68 U/L (12-78) Alkaline Phosphatase 279 U/L (46-116) H Total Protein 5.8 G/DL (6.4-8.2) L Albumin 1.4 G/DL (3.4-5.0) L Globulin 4.4 g/dL Albumin/Globulin Ratio 0.3 (1.0-2.7) L Current Medications Medications (Trade) Dose Ordered Sig/Tonny Route PRN Reason Start Time Stop Time Status Last Admin Dose Admin Acetaminophen (Tylenol) 650 mg Q4H PRN ORAL Mild Pain (Pain Scale 1-3) 02/16/19 00:30 03/16/19 12:29 02/17/19 04:53 Acetaminophen (Tylenol) 650 mg Q4H PRN RECTAL Mild Pain (Pain Scale 1-3) 02/16/19 04:30 03/18/19 04:29 02/16/19 04:31 Cefepime HCl 2 gm/ Dextrose 55 ml @ 110 mls/hr EVERY 12 HOURS IVPB 02/25/19 11:30 03/04/19 11:29 02/26/19 09:09 Chlorhexidine Gluconate (Stephanie-Hex 2%) 1 applic DAILY@2000 TOPIC 02/19/19 20:00 03/21/19 19:59 02/25/19 20:30 Dextrose (Dextrose 50%) 25 ml Q30M PRN IV Hypoglycemia 02/15/19 22:15 03/16/19 16:14 Dextrose (Dextrose 50%) 50 ml Q30M PRN IV Hypoglycemia 02/15/19 22:15 03/16/19 16:14 02/16/19 06:32 Lactobacillus Acidophilus (Culturelle) 1 tab EVERY 12 HOURS ORAL 02/25/19 21:00 03/26/19 17:59 02/26/19 09:11 Lansoprazole (Prevacid) 30 mg EVERY 12 HOURS NG 02/25/19 21:00 03/26/19 17:59 02/26/19 09:09 Levetiracetam 100 ml @ 400 mls/hr Q12HR IVPB 02/19/19 09:00 03/21/19 08:59 02/26/19 09:09 Lorazepam (Ativan 2mg/ml 1ml) 1 mg Q4H PRN IV For Anxiety 02/25/19 11:00 03/04/19 10:59 02/26/19 05:08 Magnesium Sulfate 100 ml @ 100 mls/hr Q1H IVPB 02/26/19 11:00 02/26/19 14:59 Metronidazole 100 ml @ 100 mls/hr Q8HR IVPB 02/25/19 14:00 03/04/19 13:59 02/26/19 05:03 Micafungin Sodium 100 mg/Sodium Chloride 110 ml @ 110 mls/hr Q24H IVPB 02/25/19 10:30 03/04/19 10:29 02/26/19 09:29 Midodrine (Pro-Amatine) 2.5 mg THREE TIMES A DAY ORAL 02/24/19 15:00 03/26/19 14:59 02/26/19 09:09 Norepinephrine Bitartrate 8 mg/ Dextrose 508 ml @ 0 mls/hr Q24H IV 02/16/19 09:30 03/18/19 09:29 02/23/19 09:37 Ondansetron HCl (Zofran) 4 mg Q6H PRN IVP Nausea & Vomiting 02/16/19 01:00 03/16/19 12:59 02/24/19 18:50 Phenylephrine HCl 50 mg/Dextrose 250 ml @ 0 mls/hr Q24H IV 02/16/19 22:30 03/18/19 22:29 Potassium Chloride 100 ml @ 50 mls/hr Q2H IVPB 02/26/19 11:00 02/26/19 14:59 Potassium Chloride 100 ml @ 100 mls/hr ONCE ONCE IVPB 02/26/19 15:00 02/26/19 15:59 Spironolactone (Aldactone) 50 mg EVERY 12 HOURS NG 02/24/19 21:00 03/24/19 20:59 02/26/19 09:09 Thiamine HCl (Vitamin B1) 100 mg DAILY NG 02/25/19 09:00 03/27/19 08:59 02/26/19 09:09 Vancomycin HCl (Vanco rx to dose) 1 ea DAILY PRN MISC Per rx protocol 02/16/19 09:00 03/17/19 12:59 Vancomycin HCl/ Dextrose 275 ml @ 183.333 mls/hr Q12HR@1000,2200 IVPB 02/24/19 22:00 03/01/19 21:59 02/26/19 09:29 Vasopressin 100 units/Sodium Chloride 100 ml @ 0 mls/hr Q24H IV 02/16/19 08:15 03/18/19 08:14 02/16/19 08:15 Barry Plummer MD Feb 26, 2019 13:33
--- NOTE | 2019-02-26 13:34 | NUR ---
NURSE NOTES: Seen by Dr DELACRUZ, WILL FOLLOW UP WITH NEW ORDERS.RETURNED FROM HIDA SCAN WITH NO ACUTE [id number].WILL CONTINUE TO MONITOR
--- NOTE | 2019-02-26 13:37 | NUR ---
*-* INSURANCE *-* UPDATED CLINICAL AD REVIEWS HAVE BEEN FAXED TO: VANESSA COREA: [place] P- [phone] [phone]..............REVIEW/CLINICAL
--- NOTE | 2019-02-26 14:10 | Surgery Progress Note ---
Surgery Progress Note Subjective Procedure Performed left femoral central venous catheter insertion Additional Comments awake jaundice family at bedside HIDA noted liver function worse tolerating some weaning from vent but not ready for extubation Objective Last 24 Hour Vital Signs Date Time Temp Pulse Resp B/P (MAP) Pulse Ox O2 Delivery O2 Flow Rate FiO2 02/26/19 13:00 98.4 116 33 136/83 (100) 97 02/26/19 12:49 106 37 02/26/19 12:00 40 02/26/19 12:00 94 26 107/70 (82) 99 02/26/19 12:00 Mechanical Ventilator 02/26/19 11:56 98.4 02/26/19 11:00 105 26 117/68 (84) 99 02/26/19 10:00 96 26 108/64 (79) 99 02/26/19 09:11 119/76 02/26/19 09:00 104 41 121/74 (90) 97 02/26/19 08:16 100 37 40 02/26/19 08:15 99 02/26/19 08:00 Mechanical Ventilator 02/26/19 08:00 98.4 99 35 121/77 (92) 100 02/26/19 08:00 93 02/26/19 08:00 40 02/26/19 07:20 94 27 40 02/26/19 07:00 94 27 106/61 (76) 100 02/26/19 06:00 99 32 114/69 (84) 100 02/26/19 05:00 109 31 133/86 (102) 100 02/26/19 04:55 107 34 40 02/26/19 04:00 102 02/26/19 04:00 40 02/26/19 04:00 97.7 99 32 125/78 (94) 100 02/26/19 04:00 Mechanical Ventilator 02/26/19 03:04 105 35 40 02/26/19 03:00 101 32 111/68 (82) 97 02/26/19 02:00 109 35 122/79 (93) 100 02/26/19 01:00 111 29 119/73 (88) 100 02/26/19 00:52 109 33 40 02/26/19 00:00 112 02/26/19 00:00 Mechanical Ventilator 02/26/19 00:00 98.0 108 33 120/70 (87) 99 02/26/19 00:00 40 02/25/19 23:00 111 28 125/77 (93) 100 02/25/19 22:52 104 31 40 02/25/19 22:00 98 30 114/72 (86) 100 02/25/19 21:00 108 31 118/75 (89) 98 02/25/19 20:44 100 30 40 02/25/19 20:00 98 02/25/19 20:00 97.7 95 31 102/72 (82) 100 02/25/19 20:00 Mechanical Ventilator 02/25/19 20:00 40 02/25/19 19:00 100 33 109/77 (88) 100 02/25/19 18:47 103 34 40 02/25/19 18:00 107 30 117/74 (88) 98 02/25/19 17:01 107 35 40 02/25/19 17:00 105 31 134/83 (100) 100 02/25/19 16:00 40 02/25/19 16:00 97.9 109 30 138/79 (98) 99 02/25/19 16:00 Mechanical Ventilator 02/25/19 15:25 104 02/25/19 15:24 103 18 40 02/25/19 15:00 103 36 123/75 (91) 100 I&O Intake and Output 02/25/19 02/26/19 19:00 07:00 Intake Total 1462.500 ml 990.000 ml Output Total 2115 ml 2460 ml Balance -652.500 ml -1470.000 ml IV Total 922.500 ml 630.000 ml Tube Feeding 480 ml 360 ml Other 60 ml Output Urine Total 1915 ml 2280 ml Stool Total 200 ml 180 ml Cardiovascular: RSR Respiratory: clear Abdomen: soft, distended, non-tender, present bowel sounds, non-distended Extremities: edema, no tenderness, no cyanosis Laboratory Tests Test 02/26/19 08:00 White Blood Count 27.8 K/UL (4.8-10.8) *H Red Blood Count 2.46 M/UL (4.70-6.10) L Hemoglobin 7.9 G/DL (14.2-18.0) L Hematocrit 23.9 % (42.0-52.0) L Mean Corpuscular Volume 97 FL (80-99) Mean Corpuscular Hemoglobin 32.2 PG (27.0-31.0) H Mean Corpuscular Hemoglobin Concent 33.3 G/DL (32.0-36.0) Red Cell Distribution Width 16.2 % (11.6-14.8) H Platelet Count 400 K/UL (150-450) Mean Platelet Volume 6.6 FL (6.5-10.1) Neutrophils (%) (Auto) % (45.0-75.0) Lymphocytes (%) (Auto) % (20.0-45.0) Monocytes (%) (Auto) % (1.0-10.0) Eosinophils (%) (Auto) % (0.0-3.0) Basophils (%) (Auto) % (0.0-2.0) Differential Total Cells Counted 100 Neutrophils % (Manual) 73 % (45-75) Lymphocytes % (Manual) 9 % (20-45) L Monocytes % (Manual) 12 % (1-10) H Eosinophils % (Manual) 2 % (0-3) Basophils % (Manual) 0 % (0-2) Metamyelocytes % 2 % (0-0) H Myelocytes % 1 % (0-0) H Band Neutrophils 1 % (0-8) Platelet Estimate Increased H Platelet Morphology Normal Anisocytosis 1+ Macrocytosis 1+ Sodium Level 137 MMOL/L (136-145) Potassium Level 3.0 MMOL/L (3.5-5.1) L Chloride Level 107 MMOL/L (98-107) Carbon Dioxide Level 29 MMOL/L (21-32) Anion Gap 1 mmol/L (5-15) L Blood Urea Nitrogen 6 mg/dL (7-18) L Creatinine 0.6 MG/DL (0.55-1.30) Estimat Glomerular Filtration Rate > 60 mL/min (>60) Glucose Level 85 MG/DL (74-106) Calcium Level 7.8 MG/DL (8.5-10.1) L Magnesium Level 1.6 MG/DL (1.8-2.4) L Total Bilirubin 9.9 MG/DL (0.2-1.0) H Direct Bilirubin 8.6 MG/DL (0.0-0.3) H Aspartate Amino Transf (AST/SGOT) 197 U/L (15-37) H Alanine Aminotransferase (ALT/SGPT) 68 U/L (12-78) Alkaline Phosphatase 279 U/L (46-116) H Total Protein 5.8 G/DL (6.4-8.2) L Albumin 1.4 G/DL (3.4-5.0) L Globulin 4.4 g/dL Albumin/Globulin Ratio 0.3 (1.0-2.7) L Plan Problems: (1) Non-compliance Assessment & Plan: Noncompliance with seizure medication with known history of seizures Now had seizure Appreciate neurology input (2) Electrolyte and fluid disorder Assessment & Plan: Likely due to EtOH use and dehydration IV hydration Trend labs (3) Fever (4) Oral thrush (5) Diarrhea (6) Aspiration pneumonia (7) Seizure disorder (8) Tachycardia (9) Altered mental status (10) Alcohol withdrawal seizure (11) Alcohol withdrawal seizure (12) Episode of confusion (13) Coffee ground emesis (14) Gastrointestinal bleed Assessment & Plan: Patient on admission identified to have maroon-colored stool and coffee-ground emesis. Labs noted mild anemia with H&H trending down. No acute active bleed noted but given patient's history high risk for potential ulcers. PPI Appreciate GI input considerations for EGD once stable No evidence of pulmonary embolus, aortic dissection or aneurysm. Posterior basilar consolidation suspicious for pneumonia. Correlate clinically. Trace bilateral pleural effusions. Possible enterocolitis as described above. Please correlate clinically. Mild ascites Fatty liver Cholelithiasis with wall thickening. Cholecystitis not excluded. Small right inguinal hernia containing fat Extensive breathing motion artifact limiting evaluation. We will follow with recommendations thank you (15) Sinus tachycardia (16) Septic shock (17) Sepsis Assessment & Plan: Patient septic leukocytosis improved today lactic acidosis improving anemia renal function declining electrolyte disturbance US noted on pressors now but weaning on IV abx intubated on vent support cont with aggressive resuscitation US noted again. liver decompensated HIDA noted and likely cirrhosis delgado (18) Lactic acid acidosis (19) STEFANI (acute kidney injury) (20) Abnormal LFTs (21) High anion gap metabolic acidosis Juanpablo Marcus Feb 26, 2019 14:10
--- NOTE | 2019-02-26 14:49 | NUR ---
RESPIRATORY NOTE: pt placed back on AC due to restlessness. upon suctioning pt, large amount of thick red blood. peak pressures are elevated. RN aware.
--- NOTE | 2019-02-26 15:13 | NUR ---
NURSE NOTES: Patient noted with bright red blood from ETT post suctioned.Dr Bloom and Surinder made aware with order to monitor. Order noted and carried out
--- NOTE | 2019-02-26 16:12 | NUR ---
NURSE NOTES: Patient turned and repositioned, mouth care done.Family at bedside and update given, will continue to monitor
--- NOTE | 2019-02-26 17:49 | NUR ---
NURSE NOTES: Made Dr Harris aware pt pressure hit 80 and bright red blood during suction with difficulty to go through ETT for suction.Order for delta p 24 and abg in 2 hrs. Order noted and carried out.Possible bronch tomorrow, do not need to be NPO per Dr Harris
--- NOTE | 2019-02-26 18:41 | NUR ---
NURSE NOTES: Patient ADLs done, mouth care completed,turned and repositioned.Kept clean and dry.Consent obtained from sister Josee for tomorrow bronch.Kept on close monitoring.
--- NOTE | 2019-02-26 19:27 | NUR ---
HAND-OFF: Report given to ESHA Montgomery.
--- NOTE | 2019-02-26 19:37 | NUR ---
NURSE NOTES: SEEN THE PATIENT BY DR. BARNES, NO MADE NEW ORDER.
--- NOTE | 2019-02-26 19:43 | Cardiac Electrophysiology PN ---
Assessment/Plan Assessment/Plan 1. Sinus tachycardia up to 170s. No evidence of acute myocardial infarction . Due to sepsis and anemia and alcohol withdrawal. EF 60%. HR better 2. S/P Septic shock and E Coli bacteremia, on broad-spectrum IV antibiotics. 3. Troponin leak. Type 2. Repeat level 0.16 and now negative 4. Respiratory failure on the vent. Failed weaning again Bronchoscopy in am pending 5. ETOH withdrawal 6. Seizures with noncompliance. 7. Upper gi bleed. EGD held for high WBC 8. Hematuria, resolved DW RN Subjective Subjective In ICU on the Vent off pressors. Failed weaning. In SR Objective Last 24 Hour Vital Signs Date Time Temp Pulse Resp B/P (MAP) Pulse Ox O2 Delivery O2 Flow Rate FiO2 02/26/19 19:00 106 32 104/68 (80) 98 02/26/19 18:00 110 29 116/78 (91) 97 02/26/19 17:23 105 31 40 02/26/19 17:00 98.2 107 33 115/72 (86) 98 02/26/19 16:00 107 02/26/19 16:00 40 02/26/19 16:00 Mechanical Ventilator 02/26/19 16:00 110 29 115/72 (86) 95 02/26/19 15:00 111 35 124/76 (92) 95 02/26/19 14:52 113 38 02/26/19 14:48 114 32 40 02/26/19 14:00 112 35 124/74 (91) 99 02/26/19 13:00 98.4 116 33 136/83 (100) 97 02/26/19 12:49 106 37 02/26/19 12:00 40 02/26/19 12:00 94 26 107/70 (82) 99 02/26/19 12:00 111 02/26/19 12:00 Mechanical Ventilator 02/26/19 11:56 98.4 02/26/19 11:00 105 26 117/68 (84) 99 02/26/19 10:00 96 26 108/64 (79) 99 02/26/19 09:11 119/76 02/26/19 09:00 104 41 121/74 (90) 97 02/26/19 09:00 105 29 104/68 (80) 97 02/26/19 08:16 100 37 40 02/26/19 08:15 99 02/26/19 08:00 Mechanical Ventilator 02/26/19 08:00 98.4 99 35 121/77 (92) 100 02/26/19 08:00 93 02/26/19 08:00 40 02/26/19 07:20 94 27 40 02/26/19 07:00 94 27 106/61 (76) 100 02/26/19 06:00 99 32 114/69 (84) 100 02/26/19 05:00 109 31 133/86 (102) 100 02/26/19 04:55 107 34 40 02/26/19 04:00 102 02/26/19 04:00 40 02/26/19 04:00 97.7 99 32 125/78 (94) 100 02/26/19 04:00 Mechanical Ventilator 02/26/19 03:04 105 35 40 02/26/19 03:00 101 32 111/68 (82) 97 02/26/19 02:00 109 35 122/79 (93) 100 02/26/19 01:00 111 29 119/73 (88) 100 02/26/19 00:52 109 33 40 02/26/19 00:00 112 02/26/19 00:00 Mechanical Ventilator 02/26/19 00:00 98.0 108 33 120/70 (87) 99 02/26/19 00:00 40 02/25/19 23:00 111 28 125/77 (93) 100 02/25/19 22:52 104 31 40 02/25/19 22:00 98 30 114/72 (86) 100 02/25/19 21:00 108 31 118/75 (89) 98 02/25/19 20:44 100 30 40 02/25/19 20:00 98 02/25/19 20:00 97.7 95 31 102/72 (82) 100 02/25/19 20:00 Mechanical Ventilator 02/25/19 20:00 40 Intake and Output 02/25/19 02/26/19 18:59 06:59 Intake Total 1462.500 ml 1030.000 ml Output Total 2315 ml 2585 ml Balance -852.500 ml -1555.000 ml IV Total 922.500 ml 630.000 ml Tube Feeding 480 ml 400 ml Other 60 ml Output Urine Total 1990 ml 2205 ml Stool Total 325 ml 380 ml Laboratory Tests Test 02/26/19 08:00 White Blood Count 27.8 K/UL (4.8-10.8) *H Red Blood Count 2.46 M/UL (4.70-6.10) L Hemoglobin 7.9 G/DL (14.2-18.0) L Hematocrit 23.9 % (42.0-52.0) L Mean Corpuscular Volume 97 FL (80-99) Mean Corpuscular Hemoglobin 32.2 PG (27.0-31.0) H Mean Corpuscular Hemoglobin Concent 33.3 G/DL (32.0-36.0) Red Cell Distribution Width 16.2 % (11.6-14.8) H Platelet Count 400 K/UL (150-450) Mean Platelet Volume 6.6 FL (6.5-10.1) Neutrophils (%) (Auto) % (45.0-75.0) Lymphocytes (%) (Auto) % (20.0-45.0) Monocytes (%) (Auto) % (1.0-10.0) Eosinophils (%) (Auto) % (0.0-3.0) Basophils (%) (Auto) % (0.0-2.0) Differential Total Cells Counted 100 Neutrophils % (Manual) 73 % (45-75) Lymphocytes % (Manual) 9 % (20-45) L Monocytes % (Manual) 12 % (1-10) H Eosinophils % (Manual) 2 % (0-3) Basophils % (Manual) 0 % (0-2) Metamyelocytes % 2 % (0-0) H Myelocytes % 1 % (0-0) H Band Neutrophils 1 % (0-8) Platelet Estimate Increased H Platelet Morphology Normal Anisocytosis 1+ Macrocytosis 1+ Sodium Level 137 MMOL/L (136-145) Potassium Level 3.0 MMOL/L (3.5-5.1) L Chloride Level 107 MMOL/L (98-107) Carbon Dioxide Level 29 MMOL/L (21-32) Anion Gap 1 mmol/L (5-15) L Blood Urea Nitrogen 6 mg/dL (7-18) L Creatinine 0.6 MG/DL (0.55-1.30) Estimat Glomerular Filtration Rate > 60 mL/min (>60) Glucose Level 85 MG/DL (74-106) Calcium Level 7.8 MG/DL (8.5-10.1) L Magnesium Level 1.6 MG/DL (1.8-2.4) L Total Bilirubin 9.9 MG/DL (0.2-1.0) H Direct Bilirubin 8.6 MG/DL (0.0-0.3) H Aspartate Amino Transf (AST/SGOT) 197 U/L (15-37) H Alanine Aminotransferase (ALT/SGPT) 68 U/L (12-78) Alkaline Phosphatase 279 U/L (46-116) H Total Protein 5.8 G/DL (6.4-8.2) L Albumin 1.4 G/DL (3.4-5.0) L Globulin 4.4 g/dL Albumin/Globulin Ratio 0.3 (1.0-2.7) L Microbiology Date/Time Source Procedure Growth Status 02/25/19 09:05 Indwelling Cath Urine Culture - Preliminary NO GROWTH Resulted Objective HEAD AND NECK: No JVD.Orally intubated with OG tube LUNGS: Decreased breath sounds. CARDIOVASCULAR: Regular S1 and S2 with no gallop or murmur. ABDOMEN: Soft. EXTREMITIES: No pitting edema. Fidencio Trevino MD Feb 26, 2019 19:43
--- NOTE | 2019-02-26 19:45 | NUR ---
REPARATORY NOTE: PT RECEIVED ON AC/PC 26, Pi 24, Ti .60, 40%, +5. ALARMS ARE ON AND AUDIBLE. PT HAS BILATERAL SOFT WRIST RESTRAINS. PT IS BEING VENTILATED WITH A ETT SIZE 7.5 @ 24 CM LIPLINE. PT IS SLEEPING BUT IS TACHYPNEIC AND TACHYCARDIC. DIMINISHED BS HEARD BILATERALLY. WILL CONTINUE TO MONITOR CLOSELY.
--- NOTE | 2019-02-26 19:45 | NUR ---
NURSE NOTES: SEEN THE PATIENT BY DR. SCHMIDT, NO MADE NEW ORDER.
--- NOTE | 2019-02-26 19:50 | NUR ---
NURSE NOTES: PATIENT AWOKE, AGITATED AND IRRITABLE STATUS, ON ETT TO VENT AC/PC MODE AC 26/PI 24/TV 500/FIO2 40%/ PEEP 5, O2 SATURATION OVER 97% NOTED, OGT INTACT AND PATENT ONGOING JEVITY 1.2 AT 40ML/HR, RESIDUE 30ML NOTED, ABDOMEN SOFT, RECTAL TUBE INTACT, GREENISH YELLOW COLOR STOOL DRAINING GRAVITY, 3-WAY F/C CATHETER INTACT AND PATENT, DARK KAYLA COLOR URINE OUTED, ON SCD'S TO BOTH LOWER LEGS, PICC LINE TO RIGHT UPPER ARM INTACT AND PATENT, 2 POINT SOFT RESTRAINTS FOR SAFETY STATUS, KEPT HOB OVER 30 DEGREE, MADE LOWER BED POSITION, PROVIDED CALL LIGHT WITHIN REACH, ON BED ALARM, WILL CONTINUE TO MONITOR.
[2019-02-26] MEDS: Dyna-Hex 2% Top Sol 2oz TOPIC SCH (19:57)
--- NOTE | 2019-02-26 20:26 | NUR ---
NURSE NOTES: PATIENT ANXIOUS, IRRITABLE, TRIED TO REMOVE LINE, DID NOT FOLLOWED COMMANDS THAT GIVEN ATIVAN 1MG BY IVP SLOWLY PRN ORDERED, WILL CONTINUE TO MONITOR.
--- NOTE | 2019-02-26 20:54 | NUR ---
RESPIRATORY NOTE: ABG WAS DRAWN @ 2018. RESULTS WERE GIVEN TO RN/MD. SPOKE TO DR SNYDER VIA TELEPHONE. PER DR. SNYDER T.O. Pi WAS INCREASED FROM 24 TO 26. ABG TO BE DRAWN AT 0600. WILL CONTINUE TO MONITOR.
--- NOTE | 2019-02-26 21:03 | Cardiology Report ---
APPROVED REPORT EKG Measurement Heart [id number] Sinus tachycardia with premature atrial complexes with aberrant conduction Rightward axis ST elevation, consider early repolarization, pericarditis, or injury T wave abnormality, consider inferior ischemia Abnormal ECG
--- NOTE | 2019-02-26 21:31 | General Progress Note ---
Assessment/Plan Status: unchanged Assessment/Plan: Assessment/Plan Status: doing well, stable Status Narrative Assessment/Plan: 54 year old male with pMH of seizure disorder and etoh abuse admitted for seizures 2/2 non-compliance and found to have septic shock due to bacteremia due to UTI. #severe septic shock likely 2/2 UTI #Gram negative bacteremia, E. Coli, now resolved by surveillance follow up blood culture #Acute respiratory failure requiting intubation -Vanc and Zosyn - gentamicin - Fluconazole per ID, changed to Micafungin. - Re culture ordered due to severe increase in the WBC from 15 to 26 to 29 to 39 thousand of unclear etiology - Hematology consult noted to be due to sepsis and negative B prolipherative disorders per flow cytometry. - CBC serial. - CT 02/18 with atelectasis primarily - Diuresis started and good response -ID consult appreciated - Immunoglobulin and hepatitis panel negative. -cont ICU care -intubated and mild sedation. He follows commands well. FAILED weaning trial. -vent management per pulmonary -Titrate pressors to goal map >65 -abg prn #Lactic acidosis -2/2 severe shock/ poss abd source/ seizures - 2 D Echo on 02/16 with EF 65%. Discussed with cardiology and etiology likely sepsis and not cardiogenic -CTM -Fluid boluses completed. -Cont mIVF #Coagulopathy # Thrombocytopenia - 40,000 stable Monitor. No active bleeding toay. - Hematology consult with Dr. Johnston appreciated. Flow cytometry negative. -likely 2/2 hepatic injury 2/2 shock vs other - Consumption coagulopathy. - Consider platelet transfusion if LESS than 30K with urine blood tinge color. #Coffee ground emesis likely in setting of GI bleed -H/H trending down. Monitor -GI consult appreciated -Plan for EGD once stable. Cancelled until the patient is hemodynamically more stable, OFF pressors transition and OFF today. - -surgery consult appreciated - HIDA scan ordered for persistent LFT elevation. #Seizures 2/2 noncomplaint with AED -s/p phenytoin load in ED -Cont Phenytoin -Neurology consult appreciated -pending EEG - no seizures noted in last 24 hours -Ativan PRN for seizures -NPO -Seizure precautions #Hypokalemia - Replete as needed #hypophosphatemia - Repleted. #Hypomagnesemia -repleted -CTM # Urethral hemorrhage and clot evacuation - Discussed with Dr. Matta over the phone and bleeding stopped spontaneously, No formal urology consult for now in place. - If recurrent hemorrhage will address. - H/H and INR stat today. - Consider PRBC and Platelets if Hb < 8 or Plt < 30 K # Urinary retention PVR > 300 cc WILKINSON replaced 02/[address] ( in case of repeat hemorrhage ) D/w RN Code: Full Subjective Date patient seen: Feb 25, 2019 Time patient seen: 15:00 ROS Limited/Unobtainable: Yes Respiratory: Reports: shortness of breath Allergies: Coded Allergies: No Known Allergies (Unverified , 02/10/15) All Systems: reviewed and negative except above Objective Last 24 Hour Vital Signs Date Time Temp Pulse Resp B/P (MAP) Pulse Ox O2 Delivery O2 Flow Rate FiO2 02/26/19 20:54 110 34 35 02/26/19 19:45 103 32 40 02/26/19 19:00 106 32 104/68 (80) 98 02/26/19 18:00 110 29 116/78 (91) 97 02/26/19 17:23 105 31 40 02/26/19 17:00 98.2 107 33 115/72 (86) 98 02/26/19 16:00 107 02/26/19 16:00 40 02/26/19 16:00 Mechanical Ventilator 02/26/19 16:00 110 29 115/72 (86) 95 02/26/19 15:00 111 35 124/76 (92) 95 02/26/19 14:52 113 38 02/26/19 14:48 114 32 40 02/26/19 14:00 112 35 124/74 (91) 99 02/26/19 13:00 98.4 116 33 136/83 (100) 97 02/26/19 12:49 106 37 02/26/19 12:00 40 02/26/19 12:00 94 26 107/70 (82) 99 02/26/19 12:00 111 02/26/19 12:00 Mechanical Ventilator 02/26/19 11:56 98.4 02/26/19 11:00 105 26 117/68 (84) 99 02/26/19 10:00 96 26 108/64 (79) 99 02/26/19 09:11 119/76 02/26/19 09:00 104 41 121/74 (90) 97 02/26/19 09:00 105 29 104/68 (80) 97 02/26/19 08:16 100 37 40 02/26/19 08:15 99 02/26/19 08:00 Mechanical Ventilator 02/26/19 08:00 98.4 99 35 121/77 (92) 100 02/26/19 08:00 93 02/26/19 08:00 40 02/26/19 07:20 94 27 40 02/26/19 07:00 94 27 106/61 (76) 100 02/26/19 06:00 99 32 114/69 (84) 100 02/26/19 05:00 109 31 133/86 (102) 100 02/26/19 04:55 107 34 40 02/26/19 04:00 102 02/26/19 04:00 40 02/26/19 04:00 97.7 99 32 125/78 (94) 100 02/26/19 04:00 Mechanical Ventilator 02/26/19 03:04 105 35 40 02/26/19 03:00 101 32 111/68 (82) 97 02/26/19 02:00 109 35 122/79 (93) 100 02/26/19 01:00 111 29 119/73 (88) 100 02/26/19 00:52 109 33 40 02/26/19 00:00 112 02/26/19 00:00 Mechanical Ventilator 02/26/19 00:00 98.0 108 33 120/70 (87) 99 02/26/19 00:00 40 02/25/19 23:00 111 28 125/77 (93) 100 02/25/19 22:52 104 31 40 02/25/19 22:00 98 30 114/72 (86) 100 Intake and Output 02/25/19 02/26/19 18:59 06:59 Intake Total 1462.500 ml 1030.000 ml Output Total 2315 ml 2585 ml Balance -852.500 ml -1555.000 ml IV Total 922.500 ml 630.000 ml Tube Feeding 480 ml 400 ml Other 60 ml Output Urine Total 1990 ml 2205 ml Stool Total 325 ml 380 ml Laboratory Tests 02/26/19 08:00: White Blood Count 27.8*H, Red Blood Count 2.46L, Hemoglobin 7.9L, Hematocrit 23.9L, Mean Corpuscular Volume 97, Mean Corpuscular Hemoglobin 32.2H, Mean Corpuscular Hemoglobin Concent 33.3, Red Cell Distribution Width 16.2H, Platelet Count 400, Mean Platelet Volume 6.6, Neutrophils (%) (Auto) , Lymphocytes (%) (Auto) , Monocytes (%) (Auto) , Eosinophils (%) (Auto) , Basophils (%) (Auto) , Differential Total Cells Counted 100, Neutrophils % ( Manual) 73, Lymphocytes % (Manual) 9L, Monocytes % (Manual) 12H, Eosinophils % ( Manual) 2, Basophils % (Manual) 0, Metamyelocytes % 2H, Myelocytes % 1H, Band Neutrophils 1, Platelet Estimate IncreasedH, Platelet Morphology Normal, Anisocytosis 1+, Macrocytosis 1+, Sodium Level 137, Potassium Level 3.0L, Chloride Level 107, Carbon Dioxide Level 29, Anion Gap 1L, Blood Urea Nitrogen 6L, Creatinine 0.6, Estimat Glomerular Filtration Rate > 60, Glucose Level 85, Calcium Level 7.8L, Magnesium Level 1.6L, Total Bilirubin 9.9H, Direct Bilirubin 8.6H, Aspartate Amino Transf (AST/SGOT) 197H, Alanine Aminotransferase (ALT/SGPT) 68, Alkaline Phosphatase 279H, Total Protein 5.8L, Albumin 1.4L, Globulin 4.4, Albumin/Globulin Ratio 0.3L 02/26/19 20:18: Arterial Blood pH 7.325L, Arterial Blood Partial Pressure CO2 57.9*H, Arterial Blood Partial Pressure O2 105.1H, Arterial Blood HCO3 29.5H, Arterial Blood Oxygen Saturation 97.0, Arterial Blood Base Excess 2.7H, Cesar Test Positive 02/26/19 21:00: Vancomycin Level Trough [Pending] Height (Feet): 5 Height (Inches): 5.00 Weight (Pounds): 182 General Appearance: moderate distress EENT: PERRL/EOMI Cardiovascular: normal peripheral pulses, normal rate Respiratory/Chest: lungs clear, decreased breath sounds Abdomen: non tender, hypoactive bowel sounds, tender - R UQ area Extremities: normal range of motion 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
[2019-02-26] MEDS: Phenylephrine 50 MG in D5W 245 ML IV SCH (22:30)
--- NOTE | 2019-02-26 23:00 | NUR ---
NURSE NOTES: PATIENT AWOKE, CALM STATUS AT THIS TIME, WILL CONTINUE TO MONITOR.
[2019-02-27] VITALS (24 sets, daily range): BP systolic 71–136; BP diastolic 39–83
--- NOTE | 2019-02-27 01:50 | NUR ---
NURSE NOTES: ORAL CARE WAS DONE, RELEASED RESTRAINTS AND REAPPLIED FOR SAFETY.
--- NOTE | 2019-02-27 02:25 | NUR ---
HAND-OFF: Report given to ESHA PINEDO.
--- NOTE | 2019-02-27 02:30 | NUR ---
NURSE NOTES: Received bedside report from ESHA Berrios.Patient stable,open eyes,not following commands,ST on electronic device monitor, ETT 7.5 24 cm tolerated setting well,OGT in place running with vital 1.2@ 40ml/hr no residual noted,rectal tube in place,BS active in all quadrants,3 way f/cath running toward gravity,IV asymptomatic,intact on BAUDILIO PICC line,dressing changed,bed secured,call light within a reach,will continue to monitor and follow POC.
--- NOTE | 2019-02-27 05:00 | NUR ---
NURSE NOTES: Patient clean and dry,restrains checked for sensation,blood withdraw and send to the lab.Will continue to monitor.
--- NOTE | 2019-02-27 05:10 | NUR ---
RESPIRATORY NOTE: PT REMAINED STABLE ON CMV WITH CURRENT SETTINGS. SXN'D PRN WITH NO ADVERSE REACTION. AIRWAY IS MIDLINE, SECURE AND PATENT. VENT CIRCUIT AND SX TUBBING ARE SECURE AND OUT OF THE WAY. NO S/S OF RESPIRATORY DISTRESS NOTED AT THIS TIME.
[2019-02-27 06:58] LABS: INR 1.4 (0.9-1.1)
--- NOTE | 2019-02-27 07:14 | NUR ---
HAND-OFF: Report given to ESHA Cool.Patient stable.
--- NOTE | 2019-02-27 07:25 | NUR ---
NURSE NOTES: Report received from Shwetha BALBUENA. Pt alert and oriented x1, opens eyes with tracking, does not follow commands. Pt on air sampling and monitoring, ST. Pt orally intubated ETT 7.5, 24 cm, AC 26, TV 500, 35% and PEEP 5. OGT noted and intact. Pt kept NPO for bronchoscopy at 10am. Rectal tube noted and intact. BAUDILIO PICC noted and intact with IVF at TKO. Bilateral soft wrist restraints noted and intact, with no injury. Pt continues to attempt to pull out tubes and lines. Safety measures in place with bed locked and in lowest position, side rails x 3 up and bed alarm on. Will continue to monitor and continue plan care.
[2019-02-27] MEDS: Vasopressin 100 UNITS in NS 95 ML IV SCH (07:47)
--- NOTE | 2019-02-27 07:48 | NUR ---
RESPIRATORY NOTES: Received Patient on Vent settings ACPC 26, RR 26, FIO2 35%, PEEP +5. Patient has a 7.5 ETT at 24cm at the lip, secured with anchorfast. Bilateral rhonchi noted throughout both lung sheikh. Suction small amount of thin white secretions Q2 and PRN through ETT. Vent alarms are on and audible. Vent plugged into red outlet. Will continue to monitor throughout the day.
--- NOTE | 2019-02-27 08:27 | GI Progress Note ---
Assessment/Plan Problems: (1) Coffee ground emesis ICD Codes: K92.0 - Hematemesis SNOMED: 42421808 (2) Episode of confusion ICD Codes: R41.0 - Disorientation, unspecified SNOMED: 29826896 (3) Gastrointestinal bleed ICD Codes: K92.2 - Gastrointestinal hemorrhage, unspecified SNOMED: 14420071 (4) Abnormal LFTs ICD Codes: R94.5 - Abnormal results of liver function studies SNOMED: 930768140 (5) Diarrhea ICD Codes: R19.7 - Diarrhea, unspecified SNOMED: 46246067 (6) Electrolyte and fluid disorder ICD Codes: E87.8 - Other disorders of electrolyte and fluid balance, not elsewhere classified SNOMED: 93827931 (7) Sepsis ICD Codes: A41.9 - Sepsis, unspecified organism SNOMED: 40436105 Status: not improved, unchanged Status Narrative Discussed with Dr. Bloom. Assessment/Plan Assessment - Resp failure - diarrhea - UGIB - abnormal LFT, negative hepatitis serologies, s/p U/S x 2 (no biliary dilation) - ? cirrhosis and sepsis/hypoperfusion - ? meds - ? cholecystitis - ? alcoholic hepatitis . ? liver failure - cholelithiasis - h/o EtOH, possible early cirrhosis Recommendations - vital TF - probiotics - monitor stool output - abx per ID - d/c tylenol - min duration antifungal Rx - supportive care - EGD once stable - Surgical f/u re GB - fu HIDA - Will consider doppler of hepatic vessels The patient was seen and examined at bedside and all new and available data was reviewed in the patients chart. I agree with the above findings, impression and plan. (Patient seen earlier today. Signature stamp does not reflect patient encounter time.). - Jones Bloom MD Subjective Subjective limited Objective Last 24 Hour Vital Signs Date Time Temp Pulse Resp B/P (MAP) Pulse Ox O2 Delivery O2 Flow Rate FiO2 02/27/19 08:00 98.2 113 32 127/73 (91) 97 02/27/19 08:00 35 02/27/19 08:00 Mechanical Ventilator 02/27/19 07:07 111 36 35 02/27/19 07:00 98 25 112/62 (79) 96 02/27/19 06:00 98.1 109 26 98/56 (70) 99 02/27/19 05:10 108 33 35 02/27/19 05:00 102 29 104/60 (75) 100 02/27/19 04:09 98 02/27/19 04:00 Mechanical Ventilator 02/27/19 04:00 35 02/27/19 04:00 101 24 108/64 (79) 99 02/27/19 03:05 97 27 35 02/27/19 03:00 99 28 98/58 (71) 100 02/27/19 02:00 106 31 105/72 (83) 99 02/27/19 01:18 103 30 35 02/27/19 01:00 105 32 103/62 (76) 96 02/27/19 00:00 35 02/27/19 00:00 98.4 113 31 118/81 (93) 96 02/27/19 00:00 113 02/27/19 00:00 Mechanical Ventilator 02/26/19 23:15 113 35 35 02/26/19 23:00 110 33 118/71 (87) 97 02/26/19 22:30 113 118/73 02/26/19 22:00 110 33 118/73 (88) 98 02/26/19 21:00 112 34 116/76 (89) 97 02/26/19 20:54 110 34 35 02/26/19 20:00 98.4 104 32 112/75 (87) 99 02/26/19 20:00 104 02/26/19 20:00 40 02/26/19 20:00 Mechanical Ventilator 02/26/19 19:45 103 32 40 02/26/19 19:00 106 32 104/68 (80) 98 02/26/19 18:00 110 29 116/78 (91) 97 02/26/19 17:23 105 31 40 02/26/19 17:00 98.2 107 33 115/72 (86) 98 02/26/19 16:00 107 02/26/19 16:00 40 02/26/19 16:00 Mechanical Ventilator 02/26/19 16:00 110 29 115/72 (86) 95 02/26/19 15:00 111 35 124/76 (92) 95 02/26/19 14:52 113 38 02/26/19 14:48 114 32 40 02/26/19 14:00 112 35 124/74 (91) 99 02/26/19 13:00 98.4 116 33 136/83 (100) 97 02/26/19 12:49 106 37 02/26/19 12:00 40 02/26/19 12:00 94 26 107/70 (82) 99 02/26/19 12:00 111 02/26/19 12:00 Mechanical Ventilator 02/26/19 11:56 98.4 02/26/19 11:00 105 26 117/68 (84) 99 02/26/19 10:00 96 26 108/64 (79) 99 02/26/19 09:11 119/76 02/26/19 09:00 104 41 121/74 (90) 97 02/26/19 09:00 105 29 104/68 (80) 97 Intake and Output 02/26/19 02/27/19 19:00 07:00 Intake Total 1461.333 ml 1130 ml Output Total 2730 ml 1705 ml Balance -1268.667 ml -575 ml Free Water 60 ml IV Total 1341.333 ml 530 ml Tube Feeding 120 ml 480 ml Other 60 ml Output Urine Total 2680 ml 1705 ml Stool Total 50 ml Laboratory Tests Test 02/26/19 20:18 02/26/19 21:00 02/27/19 05:30 Arterial Blood pH 7.325 (7.350-7.450) Arterial Blood Partial Pressure CO2 57.9 mmHg (35.0-45.0) *H Arterial Blood Partial Pressure O2 105.1 mmHg (75.0-100.0) H Arterial Blood HCO3 29.5 mmol/L (22.0-26.0) H Arterial Blood Oxygen Saturation 97.0 % (95-100) Arterial Blood Base Excess 2.7 (-2-2) H Cesar Test Positive Vancomycin Level Trough 17.5 ug/mL (5.0-12.0) H Prothrombin Time 14.9 SEC (9.30-11.50) H Prothromb Time International Ratio 1.4 (0.9-1.1) H Activated Partial Thromboplast Time 34 SEC (23-33) H Height (Feet): 5 Height (Inches): 5.00 Weight (Pounds): 182 General Appearance: no apparent distress Cardiovascular: normal rate Respiratory/Chest: normal breath sounds, no respiratory distress Abdominal Exam: normal bowel sounds, non tender, soft, GT site Extremities: non-tender Juno Naranjo NP Feb 27, 2019 08:27
--- NOTE | 2019-02-27 08:35 | NUR ---
RESPIRATORY NOTE: Weaning started at 0833. Placed on PS 10 PEEP +5. Will continue to monitor. ESHA powell.
[2019-02-27] MEDS: Lactobacillus-GG tablet ORAL SCH ×2 (09:00→20:54)
[2019-02-27] MEDS: Spironolactone 50mg tab NG SCH ×2 (09:00→20:54)
[2019-02-27] MEDS: Thiamine 100mg tab NG SCH (09:00)
[2019-02-27] MEDS: levETIRAcetam 500mg/NS100ml 100 ML IVPB SCH ×2 (09:18→20:27)
[2019-02-27] MEDS: Cefepime HCl 2 GM in D5W 55 ML IVPB SCH ×2 (09:19→20:29)
--- NOTE | 2019-02-27 09:30 | NUR ---
NURSE NOTES: Dr Iglesias here to see pt, labs ordered. Dr Johnston here to see pt, no new orders. Will continue to monitor.
--- NOTE | 2019-02-27 09:36 | General Progress Note ---
Assessment/Plan Status: not improved, unchanged Assessment/Plan: 54 year old male with pMH of seizure disorder and etoh abuse admitted for seizures 2/2 non-compliance # Transaminitis - f/u HIDA : non obstructive, findings c/w intracellular damage - ctm - appreciate GI and Sx input - us shows nodularity and chronic disease - hep panel negative - ggt increased - f/u GI # Hemoptysis - plan for bronch today - monitor ett output - monitor hgb #severe septic shock likely 2/2 UTI #Gram negative bacteremia, now resolved by surveillance follow up blood culture #Acute respiratory failure requiting intubation -Vanc and Zosyn - gentamicin - Fluconazole per ID - Re culture ordered due to severe increase in the WBC from 15 to 26 to 29 thousand of unclear etiology - Hematology consult noted to be due to sepsis. - CBC serial. - CT 02/18 with atelectasis primarily - Diuresis started and good response -ID consult appreciated - Immunoglobulin and hepatitis panel negative. -cont ICU care -intubated and mild sedation. He follows commands well. FAILED weaning trial. -vent management per pulmonary -Titrate pressors to goal map >65 -abg prn - Reviewed CT chest/abd/pel #Lactic acidosis -2/2 severe shock/ poss abd source/ seizures - 2 D Echo on 02/16 with EF 65%. Discussed with cardiology and etiology likely sepsis and not cardiogenic -CTM -Fluid boluses completed. -Cont mIVF #Coagulopathy # Thrombocytopenia - 40,000 stable Monitor. No active bleeding toay. - Hematology consult with Dr. Johnston appreciated. Flow cytometry pending. -likely 2/2 hepatic injury 2/2 shock - Consumption coagulopathy. - Consider platelet transfusion if LESS than 30K with urine blood tinge color. #Coffee ground emesis likely in setting of GI bleed -H/H trending down. Monitor -GI consult appreciated -Plan for EGD once stable. Cancelled until the patient is hemodynamically more stable, OFF pressors transition and now back on low dose LEVOPHED 3 mcg - -surgery consult appreciated #Seizures 2/2 noncomplaint with AED -s/p phenytoin load in ED -Cont Phenytoin -Neurology consult appreciated -pending EEG - no seizures noted in last 24 hours -Ativan PRN for seizures -NPO -Seizure precautions #Hypokalemia - Replete as needed #hypophosphatemia - Repleted. #Hypomagnesemia -repleted -CTM # Urethral hemorrhage and clot evacuation - Discussed with Dr. Matta over the phone and bleeding stopped spontaneously, No formal urology consult for now in place. - If recurrent hemorrhage will address. - H/H and INR stat today. - Consider PRBC and Platelets if Hb < 8 or Plt < 30 K # Urinary retention PVR > 300 cc WILKINSON replaced 02/[address] ( in case of repeat hemorrhage ) D/w RN Code: Full Subjective Date patient seen: Feb 27, 2019 Time patient seen: 08:00 ROS Limited/Unobtainable: Yes - intubated Allergies: Coded Allergies: No Known Allergies (Unverified , 02/10/15) Subjective patient is more alert this am notes reviewed patient had blood through ETT overnight planned for bronch this am HIDA from yesterday non diagnostic Objective Last 24 Hour Vital Signs Date Time Temp Pulse Resp B/P (MAP) Pulse Ox O2 Delivery O2 Flow Rate FiO2 02/27/19 09:22 127/73 02/27/19 08:37 98 02/27/19 08:33 108 32 35 02/27/19 08:00 98.2 113 32 127/73 (91) 97 02/27/19 08:00 35 02/27/19 08:00 Mechanical Ventilator 02/27/19 07:07 111 36 35 02/27/19 07:00 98 25 112/62 (79) 96 02/27/19 06:00 98.1 109 26 98/56 (70) 99 02/27/19 05:10 108 33 35 02/27/19 05:00 102 29 104/60 (75) 100 02/27/19 04:09 98 02/27/19 04:00 Mechanical Ventilator 02/27/19 04:00 35 02/27/19 04:00 101 24 108/64 (79) 99 02/27/19 03:05 97 27 35 02/27/19 03:00 99 28 98/58 (71) 100 02/27/19 02:00 106 31 105/72 (83) 99 02/27/19 01:18 103 30 35 02/27/19 01:00 105 32 103/62 (76) 96 02/27/19 00:00 35 02/27/19 00:00 98.4 113 31 118/81 (93) 96 02/27/19 00:00 113 02/27/19 00:00 Mechanical Ventilator 02/26/19 23:15 113 35 35 02/26/19 23:00 110 33 118/71 (87) 97 02/26/19 22:30 113 118/73 02/26/19 22:00 110 33 118/73 (88) 98 02/26/19 21:00 112 34 116/76 (89) 97 02/26/19 20:54 110 34 35 02/26/19 20:00 98.4 104 32 112/75 (87) 99 02/26/19 20:00 104 02/26/19 20:00 40 02/26/19 20:00 Mechanical Ventilator 02/26/19 19:45 103 32 40 02/26/19 19:00 106 32 104/68 (80) 98 02/26/19 18:00 110 29 116/78 (91) 97 02/26/19 17:23 105 31 40 02/26/19 17:00 98.2 107 33 115/72 (86) 98 02/26/19 16:00 107 02/26/19 16:00 40 02/26/19 16:00 Mechanical Ventilator 02/26/19 16:00 110 29 115/72 (86) 95 02/26/19 15:00 111 35 124/76 (92) 95 02/26/19 14:52 113 38 02/26/19 14:48 114 32 40 02/26/19 14:00 112 35 124/74 (91) 99 02/26/19 13:00 98.4 116 33 136/83 (100) 97 02/26/19 12:49 106 37 02/26/19 12:00 40 02/26/19 12:00 94 26 107/70 (82) 99 02/26/19 12:00 111 02/26/19 12:00 Mechanical Ventilator 02/26/19 11:56 98.4 02/26/19 11:00 105 26 117/68 (84) 99 02/26/19 10:00 96 26 108/64 (79) 99 Intake and Output 02/26/19 02/27/19 19:00 07:00 Intake Total 1461.333 ml 1130 ml Output Total 2730 ml 1705 ml Balance -1268.667 ml -575 ml Free Water 60 ml IV Total 1341.333 ml 530 ml Tube Feeding 120 ml 480 ml Other 60 ml Output Urine Total 2680 ml 1705 ml Stool Total 50 ml Laboratory Tests 02/26/19 20:18: Arterial Blood pH 7.325L, Arterial Blood Partial Pressure CO2 57.9*H, Arterial Blood Partial Pressure O2 105.1H, Arterial Blood HCO3 29.5H, Arterial Blood Oxygen Saturation 97.0, Arterial Blood Base Excess 2.7H, Cesar Test Positive 02/26/19 21:00: Vancomycin Level Trough 17.5H 02/27/19 05:30: Prothrombin Time 14.9H, Prothromb Time International Ratio 1.4H, Activated Partial Thromboplast Time 34H 02/27/19 08:20: Arterial Blood pH 7.463H, Arterial Blood Partial Pressure CO2 38.5, Arterial Blood Partial Pressure O2 84.5, Arterial Blood HCO3 27.0H, Arterial Blood Oxygen Saturation 96.1, Arterial Blood Base Excess 3H, Cesar Test Positive Height (Feet): 5 Height (Inches): 5.00 Weight (Pounds): 182 General Appearance: WD/WN, alert, mild distress EENT: other - ETT Neck: non-tender, normal alignment, supple Cardiovascular: regular rhythm, no JVD, tachycardia Respiratory/Chest: lungs clear, normal breath sounds, no respiratory distress Abdomen: non tender, soft, no organomegaly, no mass Extremities: non-tender, no calf tenderness Edema: trace edema - in all extremities Neurologic: other - unable to assess fully, able to follow commands Heather Iglesias DO Feb 27, 2019 09:36
[2019-02-27] MEDS: Vancomycin 275 ML IVPB SCH ×2 (10:11→22:55)
[2019-02-27] MEDS: Micafungin 100 MG in NS 110 ML IVPB SCH (10:45)
[2019-02-27 11:01] LABS: HEMATOCRIT 26.3 % (42.0-52.0); HEMOGLOBIN 8.5 G/DL (14.2-18.0); MEAN CORPUSCULAR VOLUME 99 FL (80-99); PLATELET COUNT 479 K/UL (150-450); RED BLOOD COUNT 2.65 M/UL (4.70-6.10)
--- NOTE | 2019-02-27 11:03 | Cardiac Electrophysiology PN ---
Assessment/Plan Assessment/Plan 1. Sinus tachycardia up to 170s. No evidence of acute myocardial infarction . Due to sepsis and anemia and alcohol withdrawal. EF 60%. HR better 2. S/P Septic shock and E Coli bacteremia, on broad-spectrum IV antibiotics. 3. Troponin leak. Type 2. Repeat level 0.16 and now negative 4. Respiratory failure on the vent. Failed weaning again Bronchoscopy today pending 5. ETOH withdrawal 6. Seizures with noncompliance. 7. Upper gi bleed. EGD held for high WBC 8. Hematuria, resolved DW RN and sister at bedside Subjective Subjective In ICU on the Vent off pressors. Failed weaning. In SR. NPO for bronchoscopy today by Dr Harris Objective Last 24 Hour Vital Signs Date Time Temp Pulse Resp B/P (MAP) Pulse Ox O2 Delivery O2 Flow Rate FiO2 02/27/19 10:00 117 38 131/80 (97) 98 02/27/19 09:22 127/73 02/27/19 09:00 112 36 122/78 (93) 95 02/27/19 08:37 98 02/27/19 08:33 108 32 35 02/27/19 08:00 114 02/27/19 08:00 98.2 113 32 127/73 (91) 97 02/27/19 08:00 35 02/27/19 08:00 Mechanical Ventilator 02/27/19 07:07 111 36 35 02/27/19 07:00 98 25 112/62 (79) 96 02/27/19 06:00 98.1 109 26 98/56 (70) 99 02/27/19 05:10 108 33 35 02/27/19 05:00 102 29 104/60 (75) 100 02/27/19 04:09 98 02/27/19 04:00 Mechanical Ventilator 02/27/19 04:00 35 02/27/19 04:00 101 24 108/64 (79) 99 02/27/19 03:05 97 27 35 02/27/19 03:00 99 28 98/58 (71) 100 02/27/19 02:00 106 31 105/72 (83) 99 02/27/19 01:18 103 30 35 02/27/19 01:00 105 32 103/62 (76) 96 02/27/19 00:00 35 02/27/19 00:00 98.4 113 31 118/81 (93) 96 02/27/19 00:00 113 02/27/19 00:00 Mechanical Ventilator 02/26/19 23:15 113 35 35 02/26/19 23:00 110 33 118/71 (87) 97 02/26/19 22:30 113 118/73 02/26/19 22:00 110 33 118/73 (88) 98 02/26/19 21:00 112 34 116/76 (89) 97 02/26/19 20:54 110 34 35 02/26/19 20:00 98.4 104 32 112/75 (87) 99 02/26/19 20:00 104 02/26/19 20:00 40 02/26/19 20:00 Mechanical Ventilator 02/26/19 19:45 103 32 40 02/26/19 19:00 106 32 104/68 (80) 98 02/26/19 18:00 110 29 116/78 (91) 97 02/26/19 17:23 105 31 40 02/26/19 17:00 98.2 107 33 115/72 (86) 98 02/26/19 16:00 107 02/26/19 16:00 40 02/26/19 16:00 Mechanical Ventilator 02/26/19 16:00 110 29 115/72 (86) 95 02/26/19 15:00 111 35 124/76 (92) 95 02/26/19 14:52 113 38 02/26/19 14:48 114 32 40 02/26/19 14:00 112 35 124/74 (91) 99 02/26/19 13:00 98.4 116 33 136/83 (100) 97 02/26/19 12:49 106 37 02/26/19 12:00 40 02/26/19 12:00 94 26 107/70 (82) 99 02/26/19 12:00 111 02/26/19 12:00 Mechanical Ventilator 02/26/19 11:56 98.4 EENT: normal ENT inspection Intake and Output 02/26/19 02/27/19 19:00 07:00 Intake Total 1461.333 ml 1130 ml Output Total 2730 ml 1705 ml Balance -1268.667 ml -575 ml Free Water 60 ml IV Total 1341.333 ml 530 ml Tube Feeding 120 ml 480 ml Other 60 ml Output Urine Total 2680 ml 1705 ml Stool Total 50 ml Laboratory Tests Test 02/26/19 20:18 02/26/19 21:00 02/27/19 05:30 02/27/19 08:20 Arterial Blood pH 7.325 (7.350-7.450) 7.463 (7.350-7.450) Arterial Blood Partial Pressure CO2 57.9 mmHg (35.0-45.0) *H 38.5 mmHg (35.0-45.0) Arterial Blood Partial Pressure O2 105.1 mmHg (75.0-100.0) H 84.5 mmHg (75.0-100.0) Arterial Blood HCO3 29.5 mmol/L (22.0-26.0) H 27.0 mmol/L (22.0-26.0) H Arterial Blood Oxygen Saturation 97.0 % (95-100) 96.1 % (95-100) Arterial Blood Base Excess 2.7 (-2-2) H 3 (-2-2) H Cesar Test Positive Positive Vancomycin Level Trough 17.5 ug/mL (5.0-12.0) H Prothrombin Time 14.9 SEC (9.30-11.50) H Prothromb Time International Ratio 1.4 (0.9-1.1) H Activated Partial Thromboplast Time 34 SEC (23-33) H Test 02/27/19 10:30 White Blood Count Pending Red Blood Count Pending Hemoglobin Pending Hematocrit Pending Mean Corpuscular Volume Pending Mean Corpuscular Hemoglobin Pending Mean Corpuscular Hemoglobin Concent Pending Red Cell Distribution Width Pending Platelet Count Pending Mean Platelet Volume Pending Neutrophils (%) (Auto) Pending Lymphocytes (%) (Auto) Pending Monocytes (%) (Auto) Pending Eosinophils (%) (Auto) Pending Basophils (%) (Auto) Pending Sodium Level Pending Potassium Level Pending Chloride Level Pending Carbon Dioxide Level Pending Blood Urea Nitrogen Pending Creatinine Pending Estimat Glomerular Filtration Rate Pending Glucose Level Pending Calcium Level Pending Ionized Calcium (Measured) Pending Phosphorus Level Pending Magnesium Level Pending Total Bilirubin Pending Direct Bilirubin Pending Aspartate Amino Transf (AST/SGOT) Pending Alanine Aminotransferase (ALT/SGPT) Pending Alkaline Phosphatase Pending Total Protein Pending Albumin Pending Microbiology Date/Time Source Procedure Growth Status 7/21/19 09:15 Blood Blood Culture - Preliminary NO GROWTH AFTER 24 HOURS Resulted 02/25/19 09:00 Blood Blood Culture - Preliminary NO GROWTH AFTER 24 HOURS Resulted 02/25/19 09:05 Indwelling Cath Urine Culture - Preliminary NO GROWTH AFTER 24 HOURS Resulted Objective HEAD AND NECK: No JVD.Orally intubated with OG tube LUNGS: Decreased breath sounds. CARDIOVASCULAR: Regular S1 and S2 with no gallop or murmur. ABDOMEN: Soft. EXTREMITIES: No pitting edema. Fidencio Trevino MD Feb 27, 2019 11:03
[2019-02-27 11:04] LABS: WHITE BLOOD COUNT 28.4 K/UL (4.8-10.8)
--- NOTE | 2019-02-27 11:06 | Diagnostic Imaging Report ---
Indication: Dyspnea Technique: One view of the chest Comparison: none Findings: Allowing for differences in technique, there is suggestion of slightly increased bilateral interstitial congestion and hazy airspace opacity. Suspect new/increasing pleural fluid on the left as well. The nasogastric tube has withdrawn somewhat, proximal port at or just below the gastroesophageal junction, tip at the level gastric antrum. Stable satisfactory position of PICC. Endotracheal tube is also withdrawn somewhat, tip projecting at the level of the thoracic inlet and just below the cords. Impression: Increasing bilateral interstitial and airspace disease, over one day High position of nasogastric tube. Advancement recommended Somewhat high position of endotracheal tube. Advancement should also be considered. ICU nurse notified of the findings at the time of interpretation
[2019-02-27 11:09] LABS: ANION GAP 4 mmol/L (5-15); BLOOD UREA NITROGEN 4 mg/dL (7-18); CALCIUM 6.2 MG/DL (8.5-10.1); CARBON DIOXIDE 24 MMOL/L (21-32); CHLORIDE 111 MMOL/L (98-107); CREATININE 0.5 MG/DL (0.55-1.30); PHOSPHORUS 2.2 MG/DL (2.5-4.9); SODIUM 139 MMOL/L (136-145)
[2019-02-27 11:17] LABS: ALANINE AMINOTRANSFERASE 11 U/L (12-78); ALBUMIN 2.5 G/DL (3.4-5.0); ALKALINE PHOSPHATASE 119 U/L (46-116); ASPARTATE AMINO TRANSFERASE 18 U/L (15-37); BILIRUBIN,DIRECT 0.2 MG/DL (0.0-0.3); BILIRUBIN,TOTAL 0.6 MG/DL (0.2-1.0)
[2019-02-27 11:20] LABS: POTASSIUM 2.3 MMOL/L (3.5-5.1)
--- NOTE | 2019-02-27 11:30 | NUR ---
NURSE NOTES: Dr Bailon and Dr Trevino here to see pt. No new orders. Will continue to monitor.
--- NOTE | 2019-02-27 12:35 | NUR ---
NURSE NOTES: Sister visiting with pt. Waiting for Dr Harris who will be doing bronchoscopy. VSS. No acute distress.
--- NOTE | 2019-02-27 13:32 | NUR ---
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 98.4 HR 117 RR 34 B/P 104/84 CPAP FIO2 35% PS 10 PEEP 5 WBC 28.4 K 2.3 ALK PHOS 119 PT 149 INR 1.4 APTT 34 IS: MICAFUNGIN IV FLAGYL IV CEFEPIME IV KEPPRA IV STEP DOWN STATUS
[2019-02-27] MEDS ORDERED: NS 275ml ONE (13:33)
[2019-02-27] MEDS ORDERED: Tubing IV Secondary IV ONE (13:33)
--- NOTE | 2019-02-27 13:37 | NUR ---
*-* INSURANCE *-* UPDATED CLINICAL AD REVIEWS HAVE BEEN FAXED TO: VANESSA COREA: ANTWON P- [id number] [id number] X [id number] [phone]..............REVIEW/CLINICAL
--- NOTE | 2019-02-27 13:38 | NUR ---
RD ASSESSMENT & RECOMMENDATIONS SEE CARE ACTIVITY FOR COMPLETE ASSESSMENT DAILY ESTIMATED NEEDS: Needs based on Critical care, sepsis 72.7kg 22-30 kcals/kg 8758-6144 total kcals 1.2-2 g protein/kg 87-145 g total protein 25-30 mL/kg 3672-3105 total fluid mLs NUTRITION DIAGNOSIS: 1) Swallowing difficulty r/t respiratory status as evidenced by pt now orally intubated, adm w/ seizures and GIB, now on OGT feeding, pressor support held at this time. 2) Altered nutrition related lab values r/t clinical condition as evidenced by pt w/ low lytes (K 2.3, phos 2.2, Mg 1.3), critically elev WBC, elev ammonia, elev T bili(1.4->9.9->wnl). CURRENT TF:Vital AF 1.2 @ 40ml/hr x 24 hrs -> held for bronchoscopy ENTERAL NUTRITION RECOMMENDATIONS: Vital AF 1.2 @ 60ml/hr x 24 hrs to provide 1440ml, 1728kcal, 102g prot, 1168ml free water - With HD stability, increase goal rate to 60ml/hr x 24 hrs - Flush per MD, HOB over 30 degrees FEED W/ HEMODYNAMIC STABILITY-> OTHERWISE TROPHIC FEEDS FOR 10-15ML/HR ADDITIONAL RECOMMENDATIONS: 1) Monitor HD stability: NE held at this time 2) Obtain a CALIBRATED BED SCALE Pt does not appear c/w WT of 130# per EMR 3) Replete lytes, check daily (low K, phos, mag) 4) Monitor LFTs and T bili (trending up T bili 1.4 -> 9.9 ) -> consider re-checking hepatic fxn panel (T bili wnl on 02/27?) .
--- NOTE | 2019-02-27 13:51 | Surgery Progress Note ---
Surgery Progress Note Subjective Procedure Performed left femoral central venous catheter insertion Additional Comments Patient seen and examined at bedside. Patient's sister at bedside. Patient tolerating more weaning trials for longer periods of time. Still not ready for extubation yet. Plan bronchoscopy by pulmonology today. Leukocytosis. LFTs abnormally resolved essentially lab abnormality will have to recheck tomorrow morning Objective Last 24 Hour Vital Signs Date Time Temp Pulse Resp B/P (MAP) Pulse Ox O2 Delivery O2 Flow Rate FiO2 02/27/19 13:19 110 37 35 02/27/19 13:00 114 35 104/54 (71) 94 02/27/19 12:00 116 02/27/19 12:00 35 02/27/19 12:00 Mechanical Ventilator 02/27/19 12:00 98.4 115 34 120/73 (89) 94 02/27/19 11:24 115 33 35 02/27/19 11:00 117 36 136/83 (100) 94 02/27/19 10:00 117 38 131/80 (97) 98 02/27/19 09:22 127/73 02/27/19 09:00 112 36 122/78 (93) 95 02/27/19 08:37 98 02/27/19 08:33 108 32 35 02/27/19 08:00 114 02/27/19 08:00 98.2 113 32 127/73 (91) 97 02/27/19 08:00 35 02/27/19 08:00 Mechanical Ventilator 02/27/19 07:07 111 36 35 02/27/19 07:00 98 25 112/62 (79) 96 02/27/19 06:00 98.1 109 26 98/56 (70) 99 02/27/19 05:10 108 33 35 02/27/19 05:00 102 29 104/60 (75) 100 02/27/19 04:09 98 02/27/19 04:00 Mechanical Ventilator 02/27/19 04:00 35 02/27/19 04:00 101 24 108/64 (79) 99 02/27/19 03:05 97 27 35 02/27/19 03:00 99 28 98/58 (71) 100 02/27/19 02:00 106 31 105/72 (83) 99 02/27/19 01:18 103 30 35 02/27/19 01:00 105 32 103/62 (76) 96 02/27/19 00:00 35 02/27/19 00:00 98.4 113 31 118/81 (93) 96 02/27/19 00:00 113 02/27/19 00:00 Mechanical Ventilator 02/26/19 23:15 113 35 35 02/26/19 23:00 110 33 118/71 (87) 97 02/26/19 22:30 113 118/73 02/26/19 22:00 110 33 118/73 (88) 98 02/26/19 21:00 112 34 116/76 (89) 97 02/26/19 20:54 110 34 35 02/26/19 20:00 98.4 104 32 112/75 (87) 99 02/26/19 20:00 104 02/26/19 20:00 40 02/26/19 20:00 Mechanical Ventilator 02/26/19 19:45 103 32 40 02/26/19 19:00 106 32 104/68 (80) 98 02/26/19 18:00 110 29 116/78 (91) 97 02/26/19 17:23 105 31 40 02/26/19 17:00 98.2 107 33 115/72 (86) 98 02/26/19 16:00 107 02/26/19 16:00 40 02/26/19 16:00 Mechanical Ventilator 02/26/19 16:00 110 29 115/72 (86) 95 02/26/19 15:00 111 35 124/76 (92) 95 02/26/19 14:52 113 38 02/26/19 14:48 114 32 40 02/26/19 14:00 112 35 124/74 (91) 99 I&O Intake and Output 02/26/19 02/27/19 19:00 07:00 Intake Total 1461.333 ml 1130 ml Output Total 2730 ml 1705 ml Balance -1268.667 ml -575 ml Free Water 60 ml IV Total 1341.333 ml 530 ml Tube Feeding 120 ml 480 ml Other 60 ml Output Urine Total 2680 ml 1705 ml Stool Total 50 ml Cardiovascular: RSR Respiratory: clear Abdomen: soft, present bowel sounds, non-distended Extremities: no tenderness, no cyanosis Laboratory Tests Test 02/26/19 20:18 02/26/19 21:00 02/27/19 05:30 7/23/19 08:20 Arterial Blood pH 7.325 (7.350-7.450) 7.463 (7.350-7.450) Arterial Blood Partial Pressure CO2 57.9 mmHg (35.0-45.0) *H 38.5 mmHg (35.0-45.0) Arterial Blood Partial Pressure O2 105.1 mmHg (75.0-100.0) H 84.5 mmHg (75.0-100.0) Arterial Blood HCO3 29.5 mmol/L (22.0-26.0) H 27.0 mmol/L (22.0-26.0) H Arterial Blood Oxygen Saturation 97.0 % (95-100) 96.1 % (95-100) Arterial Blood Base Excess 2.7 (-2-2) H 3 (-2-2) H Cesar Test Positive Positive Vancomycin Level Trough 17.5 ug/mL (5.0-12.0) H Prothrombin Time 14.9 SEC (9.30-11.50) H Prothromb Time International Ratio 1.4 (0.9-1.1) H Activated Partial Thromboplast Time 34 SEC (23-33) H Test 02/27/19 10:30 White Blood Count 28.4 K/UL (4.8-10.8) *H Red Blood Count 2.65 M/UL (4.70-6.10) L Hemoglobin 8.5 G/DL (14.2-18.0) L Hematocrit 26.3 % (42.0-52.0) L Mean Corpuscular Volume 99 FL (80-99) Mean Corpuscular Hemoglobin 32.0 PG (27.0-31.0) H Mean Corpuscular Hemoglobin Concent 32.3 G/DL (32.0-36.0) Red Cell Distribution Width 16.0 % (11.6-14.8) H Platelet Count 479 K/UL (150-450) H Mean Platelet Volume 6.3 FL (6.5-10.1) L Neutrophils (%) (Auto) % (45.0-75.0) Lymphocytes (%) (Auto) % (20.0-45.0) Monocytes (%) (Auto) % (1.0-10.0) Eosinophils (%) (Auto) % (0.0-3.0) Basophils (%) (Auto) % (0.0-2.0) Differential Total Cells Counted 100 Neutrophils % (Manual) 76 % (45-75) H Lymphocytes % (Manual) 10 % (20-45) L Monocytes % (Manual) 9 % (1-10) Eosinophils % (Manual) 2 % (0-3) Basophils % (Manual) 2 % (0-2) Band Neutrophils 1 % (0-8) Platelet Estimate Adequate Platelet Morphology Normal Hypochromasia 2+ Anisocytosis 1+ Sodium Level 139 MMOL/L (136-145) Potassium Level 2.3 MMOL/L (3.5-5.1) *L Chloride Level 111 MMOL/L (98-107) H Carbon Dioxide Level 24 MMOL/L (21-32) Anion Gap 4 mmol/L (5-15) L Blood Urea Nitrogen 4 mg/dL (7-18) L Creatinine 0.5 MG/DL (0.55-1.30) L Estimat Glomerular Filtration Rate > 60 mL/min (>60) Glucose Level 211 MG/DL (74-106) #H Calcium Level 6.2 MG/DL (8.5-10.1) #L Ionized Calcium (Measured) 1.04 mmol/L (1.10-1.35) L Phosphorus Level 2.2 MG/DL (2.5-4.9) L Magnesium Level 1.3 MG/DL (1.8-2.4) L Total Bilirubin 0.6 MG/DL (0.2-1.0) Direct Bilirubin 0.2 MG/DL (0.0-0.3) Aspartate Amino Transf (AST/SGOT) 18 U/L (15-37) Alanine Aminotransferase (ALT/SGPT) 11 U/L (12-78) L Alkaline Phosphatase 119 U/L (46-116) H Total Protein 7.0 G/DL (6.4-8.2) Albumin 2.5 G/DL (3.4-5.0) L Plan Problems: (1) Non-compliance Assessment & Plan: Noncompliance with seizure medication with known history of seizures Now had seizure Appreciate neurology input (2) Electrolyte and fluid disorder Assessment & Plan: Likely due to EtOH use and dehydration IV hydration Trend labs (3) Fever (4) Oral thrush (5) Diarrhea (6) Aspiration pneumonia (7) Seizure disorder (8) Tachycardia (9) Altered mental status (10) Alcohol withdrawal seizure (11) Alcohol withdrawal seizure (12) Episode of confusion (13) Coffee ground emesis (14) Gastrointestinal bleed Assessment & Plan: Patient on admission identified to have maroon-colored stool and coffee-ground emesis. Labs noted mild anemia with H&H trending down. No acute active bleed noted but given patient's history high risk for potential ulcers. PPI Appreciate GI input considerations for EGD once stable No evidence of pulmonary embolus, aortic dissection or aneurysm. Posterior basilar consolidation suspicious for pneumonia. Correlate clinically. Trace bilateral pleural effusions. Possible enterocolitis as described above. Please correlate clinically. Mild ascites Fatty liver Cholelithiasis with wall thickening. Cholecystitis not excluded. Small right inguinal hernia containing fat Extensive breathing motion artifact limiting evaluation. We will follow with recommendations thank you (15) Sinus tachycardia (16) Septic shock (17) Sepsis Assessment & Plan: Patient septic leukocytosis improved today lactic acidosis improving anemia renal function declining electrolyte disturbance US noted on pressors now but weaning on IV abx intubated on vent support cont with aggressive resuscitation US noted again. liver decompensated HIDA noted and likely cirrhosis delgado AM labs reordered (18) Lactic acid acidosis (19) STEFANI (acute kidney injury) (20) Abnormal LFTs (21) High anion gap metabolic acidosis Juanpablo Marcus Feb 27, 2019 13:51
--- NOTE | 2019-02-27 14:05 | NUR ---
RADIOLOGY DEPT., CHEST X-RAY DONE.-P.DYE
--- NOTE | 2019-02-27 14:19 | Pulmonolgy Critical Care Note ---
Critical Care - Asmt/Plan Problems: (1) Seizure disorder (2) Endotracheally intubated (3) Septic shock (4) Sepsis (5) Sinus tachycardia (6) Lactic acid acidosis (7) High anion gap metabolic acidosis (8) STEFANI (acute kidney injury) (9) Abnormal LFTs (10) Coffee ground emesis (11) Gastrointestinal bleed (12) Altered mental status (13) Alcohol withdrawal seizure (14) Ventilator dependent Assessment/Plan: Continue ventilatory support/settings reviewed Weaning trials as able - repeat SBT tommorrow am Monitor volumes, PRN lasi Off Abx per ID Will do bronch F/U GI recs, PPI, EGD when stable, ? colo Monitor counts, transfuse as neded Monitor for EtOH w/drawal, PRN ativan Continue AEDs, monitor for Sz's, F/U neuro recs FC CCT 55 Critical Care - Objective Last 24 Hour Vital Signs Date Time Temp Pulse Resp B/P (MAP) Pulse Ox O2 Delivery O2 Flow Rate FiO2 02/27/19 14:00 111 37 93/52 (66) 92 02/27/19 13:19 110 37 35 02/27/19 13:00 114 35 104/54 (71) 94 02/27/19 12:00 116 02/27/19 12:00 35 02/27/19 12:00 Mechanical Ventilator 02/27/19 12:00 98.4 115 34 120/73 (89) 94 02/27/19 11:24 115 33 35 02/27/19 11:00 117 36 136/83 (100) 94 02/27/19 10:00 117 38 131/80 (97) 98 02/27/19 09:22 127/73 02/27/19 09:00 112 36 122/78 (93) 95 02/27/19 08:37 98 02/27/19 08:33 108 32 35 02/27/19 08:00 114 02/27/19 08:00 98.2 113 32 127/73 (91) 97 02/27/19 08:00 35 02/27/19 08:00 Mechanical Ventilator 02/27/19 07:07 111 36 35 02/27/19 07:00 98 25 112/62 (79) 96 02/27/19 06:00 98.1 109 26 98/56 (70) 99 02/27/19 05:10 108 33 35 02/27/19 05:00 102 29 104/60 (75) 100 02/27/19 04:09 98 02/27/19 04:00 Mechanical Ventilator 02/27/19 04:00 35 02/27/19 04:00 101 24 108/64 (79) 99 02/27/19 03:05 97 27 35 02/27/19 03:00 99 28 98/58 (71) 100 02/27/19 02:00 106 31 105/72 (83) 99 02/27/19 01:18 103 30 35 02/27/19 01:00 105 32 103/62 (76) 96 02/27/19 00:00 35 02/27/19 00:00 98.4 113 31 118/81 (93) 96 02/27/19 00:00 113 02/27/19 00:00 Mechanical Ventilator 02/26/19 23:15 113 35 35 02/26/19 23:00 110 33 118/71 (87) 97 02/26/19 22:30 113 118/73 02/26/19 22:00 110 33 118/73 (88) 98 02/26/19 21:00 112 34 116/76 (89) 97 02/26/19 20:54 110 34 35 02/26/19 20:00 98.4 104 32 112/75 (87) 99 02/26/19 20:00 104 02/26/19 20:00 40 02/26/19 20:00 Mechanical Ventilator 02/26/19 19:45 103 32 40 02/26/19 19:00 106 32 104/68 (80) 98 02/26/19 18:00 110 29 116/78 (91) 97 02/26/19 17:23 105 31 40 02/26/19 17:00 98.2 107 33 115/72 (86) 98 02/26/19 16:00 107 02/26/19 16:00 40 02/26/19 16:00 Mechanical Ventilator 02/26/19 16:00 110 29 115/72 (86) 95 02/26/19 15:00 111 35 124/76 (92) 95 02/26/19 14:52 113 38 02/26/19 14:48 114 32 40 Status: other - awake intubated Condition: improving, other HEENT: atraumatic, normocephalic Lungs: rhonchi - @ bases Heart: HR/BP stable Abdomen: soft, non-tender, active bowel sounds Extremities: no C/C/E Micro: Microbiology Date/Time Source Procedure Growth Status 02/25/19 09:15 Blood Blood Culture - Preliminary NO GROWTH AFTER 24 HOURS Resulted 02/25/19 09:00 Blood Blood Culture - Preliminary NO GROWTH AFTER 24 HOURS Resulted 02/25/19 09:05 Indwelling Cath Urine Culture - Preliminary NO GROWTH AFTER 24 HOURS Resulted Accucheck: 33 Blood Sugars: BS controlled Critical Care - Subjective ROS Limited/Unobtainable: Yes ICU Day: 13 Intubation Day: 12 Interval Events: High peak pressures yesterday, now improved and good SBT x 8 hours, no sig secretions, AFVSS, off pressors Condition: critical IV Access: PICC EKG Rhythm: Sinus Rhythm FI02: 35 Vent Support Breath Rate: 26 Vent Support Mode: CPAP Vent Tidal Volume: 500 Sputum Amount: Moderate PEEP: 5.0 PIP: 16 Secretions: minimal secretions Fluids: SLIV Drips: N/A Tube Feeding Amount: 0 I&O: Intake and Output 02/26/19 02/27/19 19:00 07:00 Intake Total 1461.333 ml 1130 ml Output Total 2730 ml 1705 ml Balance -1268.667 ml -575 ml Free Water 60 ml IV Total 1341.333 ml 530 ml Tube Feeding 120 ml 480 ml Other 60 ml Output Urine Total 2680 ml 1705 ml Stool Total 50 ml Subjective: [place] CXR: Scatt b airspace opacities ET-Tube: 7.5 ET Position: 24 Labs: Laboratory Tests Test 02/26/19 20:18 02/26/19 21:00 02/27/19 05:30 02/27/19 08:20 Arterial Blood pH 7.325 (7.350-7.450) 7.463 (7.350-7.450) Arterial Blood Partial Pressure CO2 57.9 mmHg (35.0-45.0) *H 38.5 mmHg (35.0-45.0) Arterial Blood Partial Pressure O2 105.1 mmHg (75.0-100.0) H 84.5 mmHg (75.0-100.0) Arterial Blood HCO3 29.5 mmol/L (22.0-26.0) H 27.0 mmol/L (22.0-26.0) H Arterial Blood Oxygen Saturation 97.0 % (95-100) 96.1 % (95-100) Arterial Blood Base Excess 2.7 (-2-2) H 3 (-2-2) H Cesar Test Positive Positive Vancomycin Level Trough 17.5 ug/mL (5.0-12.0) H Prothrombin Time 14.9 SEC (9.30-11.50) H Prothromb Time International Ratio 1.4 (0.9-1.1) H Activated Partial Thromboplast Time 34 SEC (23-33) H Test 02/27/19 10:30 White Blood Count 28.4 K/UL (4.8-10.8) *H Red Blood Count 2.65 M/UL (4.70-6.10) L Hemoglobin 8.5 G/DL (14.2-18.0) L Hematocrit 26.3 % (42.0-52.0) L Mean Corpuscular Volume 99 FL (80-99) Mean Corpuscular Hemoglobin 32.0 PG (27.0-31.0) H Mean Corpuscular Hemoglobin Concent 32.3 G/DL (32.0-36.0) Red Cell Distribution Width 16.0 % (11.6-14.8) H Platelet Count 479 K/UL (150-450) H Mean Platelet Volume 6.3 FL (6.5-10.1) L Neutrophils (%) (Auto) % (45.0-75.0) Lymphocytes (%) (Auto) % (20.0-45.0) Monocytes (%) (Auto) % (1.0-10.0) Eosinophils (%) (Auto) % (0.0-3.0) Basophils (%) (Auto) % (0.0-2.0) Differential Total Cells Counted 100 Neutrophils % (Manual) 76 % (45-75) H Lymphocytes % (Manual) 10 % (20-45) L Monocytes % (Manual) 9 % (1-10) Eosinophils % (Manual) 2 % (0-3) Basophils % (Manual) 2 % (0-2) Band Neutrophils 1 % (0-8) Platelet Estimate Adequate Platelet Morphology Normal Hypochromasia 2+ Anisocytosis 1+ Sodium Level 139 MMOL/L (136-145) Potassium Level 2.3 MMOL/L (3.5-5.1) *L Chloride Level 111 MMOL/L (98-107) H Carbon Dioxide Level 24 MMOL/L (21-32) Anion Gap 4 mmol/L (5-15) L Blood Urea Nitrogen 4 mg/dL (7-18) L Creatinine 0.5 MG/DL (0.55-1.30) L Estimat Glomerular Filtration Rate > 60 mL/min (>60) Glucose Level 211 MG/DL (74-106) #H Calcium Level 6.2 MG/DL (8.5-10.1) #L Ionized Calcium (Measured) 1.04 mmol/L (1.10-1.35) L Phosphorus Level 2.2 MG/DL (2.5-4.9) L Magnesium Level 1.3 MG/DL (1.8-2.4) L Total Bilirubin 0.6 MG/DL (0.2-1.0) Direct Bilirubin 0.2 MG/DL (0.0-0.3) Aspartate Amino Transf (AST/SGOT) 18 U/L (15-37) Alanine Aminotransferase (ALT/SGPT) 11 U/L (12-78) L Alkaline Phosphatase 119 U/L (46-116) H Total Protein 7.0 G/DL (6.4-8.2) Albumin 2.5 G/DL (3.4-5.0) L Han Harris MD Feb 27, 2019 14:19
--- NOTE | 2019-02-27 14:20 | Pre-Procedure Note/Attestation ---
Pre-Procedure Note/Attestation Complete Prior to Procedure Planned Procedure: bilateral Procedure Narrative: FLEXIBLE FIBEROPTIC BRONCHOSCOPY Indications for Procedure Pre-Operative Diagnosis: LUNG INFILTRATES Attestation I attest that I discussed the nature of the procedure; its benefits; risks and complications; and alternatives (and the risks and benefits of such alternatives ), prior to the procedure, with the patient (or the patient's legal artist representative). I attest that, if there was a reasonable possibility of needing a blood transfusion, the patient (or the patient's legal artist representative) was given the [facility] standardized written summary, pursuant to the [place] Blood Safety Act ([place] Health and Safety Code # 1645, as amended). I attest that I re-evaluated the patient just prior to the surgery and that there has been no change in the patient's H&P, except as documented below: Han Harris MD Feb 27, 2019 14:20
--- NOTE | 2019-02-27 14:26 | Nephrology Progress Note ---
Assessment/Plan Problem List: (1) STEFANI (acute kidney injury) Assessment: Cr lower (2) Septic shock (3) Electrolyte and fluid disorder (4) Abnormal LFTs Assessment: fatty liver (5) Hyperbilirubinemia Assessment - STEFANI (acute kidney injury) - Septic shock - Lactic acid acidosis - Abnormal LFTs - Gastrointestinal bleed - Alcohol withdrawal seizure Plan K and Mag and Phos supplement as needed discussed with RN PRN Albumin bolus for low bp Midodrine start feeding Hemodynamic support Pressors / Fluids as needed Aim to correct the electrolyte and acid base imbalance monitor renal parameters gastric support switch dilantin to keppra as LFTs rising per orders Subjective ROS Limited/Unobtainable: Yes Objective Objective Last 24 Hour Vital Signs Date Time Temp Pulse Resp B/P (MAP) Pulse Ox O2 Delivery O2 Flow Rate FiO2 02/27/19 14:00 111 37 93/52 (66) 92 02/27/19 13:19 110 37 35 02/27/19 13:00 114 35 104/54 (71) 94 02/27/19 12:00 116 02/27/19 12:00 35 02/27/19 12:00 Mechanical Ventilator 02/27/19 12:00 98.4 115 34 120/73 (89) 94 02/27/19 11:24 115 33 35 02/27/19 11:00 117 36 136/83 (100) 94 02/27/19 10:00 117 38 131/80 (97) 98 02/27/19 09:22 127/73 02/27/19 09:00 112 36 122/78 (93) 95 02/27/19 08:37 98 02/27/19 08:33 108 32 35 02/27/19 08:00 114 02/27/19 08:00 98.2 113 32 127/73 (91) 97 02/27/19 08:00 35 02/27/19 08:00 Mechanical Ventilator 02/27/19 07:07 111 36 35 02/27/19 07:00 98 25 112/62 (79) 96 02/27/19 06:00 98.1 109 26 98/56 (70) 99 02/27/19 05:10 108 33 35 02/27/19 05:00 102 29 104/60 (75) 100 02/27/19 04:09 98 02/27/19 04:00 Mechanical Ventilator 02/27/19 04:00 35 02/27/19 04:00 101 24 108/64 (79) 99 02/27/19 03:05 97 27 35 02/27/19 03:00 99 28 98/58 (71) 100 02/27/19 02:00 106 31 105/72 (83) 99 02/27/19 01:18 103 30 35 02/27/19 01:00 105 32 103/62 (76) 96 02/27/19 00:00 35 02/27/19 00:00 98.4 113 31 118/81 (93) 96 02/27/19 00:00 113 02/27/19 00:00 Mechanical Ventilator 02/26/19 23:15 113 35 35 02/26/19 23:00 110 33 118/71 (87) 97 02/26/19 22:30 113 118/73 02/26/19 22:00 110 33 118/73 (88) 98 02/26/19 21:00 112 34 116/76 (89) 97 02/26/19 20:54 110 34 35 02/26/19 20:00 98.4 104 32 112/75 (87) 99 02/26/19 20:00 104 02/26/19 20:00 40 02/26/19 20:00 Mechanical Ventilator 02/26/19 19:45 103 32 40 02/26/19 19:00 106 32 104/68 (80) 98 02/26/19 18:00 110 29 116/78 (91) 97 02/26/19 17:23 105 31 40 02/26/19 17:00 98.2 107 33 115/72 (86) 98 02/26/19 16:00 107 02/26/19 16:00 40 02/26/19 16:00 Mechanical Ventilator 02/26/19 16:00 110 29 115/72 (86) 95 02/26/19 15:00 111 35 124/76 (92) 95 02/26/19 14:52 113 38 02/26/19 14:48 114 32 40 Intake and Output 02/26/19 02/27/19 19:00 07:00 Intake Total 1461.333 ml 1130 ml Output Total 2730 ml 1705 ml Balance -1268.667 ml -575 ml Free Water 60 ml IV Total 1341.333 ml 530 ml Tube Feeding 120 ml 480 ml Other 60 ml Output Urine Total 2680 ml 1705 ml Stool Total 50 ml Laboratory Tests 02/26/19 20:18: Arterial Blood pH 7.325L, Arterial Blood Partial Pressure CO2 57.9*H, Arterial Blood Partial Pressure O2 105.1H, Arterial Blood HCO3 29.5H, Arterial Blood Oxygen Saturation 97.0, Arterial Blood Base Excess 2.7H, Cesar Test Positive 02/26/19 21:00: Vancomycin Level Trough 17.5H 02/27/19 05:30: Prothrombin Time 14.9H, Prothromb Time International Ratio 1.4H, Activated Partial Thromboplast Time 34H 02/27/19 08:20: Arterial Blood pH 7.463H, Arterial Blood Partial Pressure CO2 38.5, Arterial Blood Partial Pressure O2 84.5, Arterial Blood HCO3 27.0H, Arterial Blood Oxygen Saturation 96.1, Arterial Blood Base Excess 3H, Cesar Test Positive 02/27/19 10:30: White Blood Count 28.4*H, Red Blood Count 2.65L, Hemoglobin 8.5L, Hematocrit 26.3L, Mean Corpuscular Volume 99, Mean Corpuscular Hemoglobin 32.0H, Mean Corpuscular Hemoglobin Concent 32.3, Red Cell Distribution Width 16.0H, Platelet Count 479H, Mean Platelet Volume 6.3L, Neutrophils (%) (Auto) , Lymphocytes (%) (Auto) , Monocytes (%) (Auto) , Eosinophils (%) (Auto) , Basophils (%) (Auto) , Differential Total Cells Counted 100, Neutrophils % ( Manual) 76H, Lymphocytes % (Manual) 10L, Monocytes % (Manual) 9, Eosinophils % ( Manual) 2, Basophils % (Manual) 2, Band Neutrophils 1, Platelet Estimate Adequate, Platelet Morphology Normal, Hypochromasia 2+, Anisocytosis 1+, Sodium Level 139, Potassium Level 2.3*L, Chloride Level 111H, Carbon Dioxide Level 24, Anion Gap 4L, Blood Urea Nitrogen 4L, Creatinine 0.5L, Estimat Glomerular Filtration Rate > 60, Glucose Level 211#H, Calcium Level 6.2#L, Ionized Calcium (Measured) 1.04L, Phosphorus Level 2.2L, Magnesium Level 1.3L, Total Bilirubin 0.6, Direct Bilirubin 0.2, Aspartate Amino Transf (AST/SGOT) 18, Alanine Aminotransferase (ALT/SGPT) 11L, Alkaline Phosphatase 119H, Total Protein 7.0, Albumin 2.5L Height (Feet): 5 Height (Inches): 5.00 Weight (Pounds): 174 General Appearance: no apparent distress EENT: other - vent Cardiovascular: tachycardia Respiratory/Chest: decreased breath sounds Abdomen: distended Objective no change Scotty Bailon MD Feb 27, 2019 14:26
[2019-02-27] MEDS ORDERED: KCl 20mEq 100ml Premix IVPB SCH (14:30)
[2019-02-27] MEDS: LORazepam Inj 2mg/ml 1ml IV PRN (14:34)
--- NOTE | 2019-02-27 14:35 | Urology Progress Note ---
Assessment/Plan Status: not improved, unchanged Assessment/Plan: 1. Gross hematuria history, improved. 2. Urinary retention. 3. Probable neurogenic bladder. 4. Urinary tract infection history. 5. Sepsis history. monitor clinically delgado indwelling hand irrigated and do PRN abx as ordered f/u on urine and blood cx's renal fxn stable Subjective Allergies: Coded Allergies: No Known Allergies (Unverified , 02/10/15) Subjective all noted, vent Objective Last 24 Hour Vital Signs Date Time Temp Pulse Resp B/P (MAP) Pulse Ox O2 Delivery O2 Flow Rate FiO2 02/27/19 14:00 111 37 93/52 (66) 92 02/27/19 13:19 110 37 35 02/27/19 13:00 114 35 104/54 (71) 94 02/27/19 12:00 116 02/27/19 12:00 35 02/27/19 12:00 Mechanical Ventilator 02/27/19 12:00 98.4 115 34 120/73 (89) 94 02/27/19 11:24 115 33 35 02/27/19 11:00 117 36 136/83 (100) 94 02/27/19 10:00 117 38 131/80 (97) 98 02/27/19 09:22 127/73 02/27/19 09:00 112 36 122/78 (93) 95 02/27/19 08:37 98 02/27/19 08:33 108 32 35 02/27/19 08:00 114 02/27/19 08:00 98.2 113 32 127/73 (91) 97 02/27/19 08:00 35 02/27/19 08:00 Mechanical Ventilator 02/27/19 07:07 111 36 35 02/27/19 07:00 98 25 112/62 (79) 96 02/27/19 06:00 98.1 109 26 98/56 (70) 99 02/27/19 05:10 108 33 35 02/27/19 05:00 102 29 104/60 (75) 100 02/27/19 04:09 98 02/27/19 04:00 Mechanical Ventilator 02/27/19 04:00 35 02/27/19 04:00 101 24 108/64 (79) 99 02/27/19 03:05 97 27 35 02/27/19 03:00 99 28 98/58 (71) 100 7/23/19 02:00 106 31 105/72 (83) 99 02/27/19 01:18 103 30 35 02/27/19 01:00 105 32 103/62 (76) 96 02/27/19 00:00 35 02/27/19 00:00 98.4 113 31 118/81 (93) 96 02/27/19 00:00 113 02/27/19 00:00 Mechanical Ventilator 02/26/19 23:15 113 35 35 02/26/19 23:00 110 33 118/71 (87) 97 02/26/19 22:30 113 118/73 02/26/19 22:00 110 33 118/73 (88) 98 02/26/19 21:00 112 34 116/76 (89) 97 02/26/19 20:54 110 34 35 02/26/19 20:00 98.4 104 32 112/75 (87) 99 02/26/19 20:00 104 02/26/19 20:00 40 02/26/19 20:00 Mechanical Ventilator 02/26/19 19:45 103 32 40 02/26/19 19:00 106 32 104/68 (80) 98 02/26/19 18:00 110 29 116/78 (91) 97 02/26/19 17:23 105 31 40 02/26/19 17:00 98.2 107 33 115/72 (86) 98 02/26/19 16:00 107 02/26/19 16:00 40 02/26/19 16:00 Mechanical Ventilator 02/26/19 16:00 110 29 115/72 (86) 95 02/26/19 15:00 111 35 124/76 (92) 95 02/26/19 14:52 113 38 02/26/19 14:48 114 32 40 Intake and Output 02/26/19 02/27/19 19:00 07:00 Intake Total 1461.333 ml 1130 ml Output Total 2730 ml 1705 ml Balance -1268.667 ml -575 ml Free Water 60 ml IV Total 1341.333 ml 530 ml Tube Feeding 120 ml 480 ml Other 60 ml Output Urine Total 2680 ml 1705 ml Stool Total 50 ml Microbiology Date/Time Source Procedure Growth Status 02/25/19 09:15 Blood Blood Culture - Preliminary NO GROWTH AFTER 24 HOURS Resulted 02/20/19 14:00 Sputum Induced Gram Stain - Final Complete 02/20/19 14:00 Sputum Culture - Final Luciana Albicans Complete 02/22/19 23:55 Stool Clostridium difficile Toxin Assay - Final Complete 02/25/19 09:05 Indwelling Cath Urine Culture - Preliminary NO GROWTH AFTER 24 HOURS Resulted Current Medications Medications (Trade) Dose Ordered Sig/Tonny Route PRN Reason Start Time Stop Time Status Last Admin Dose Admin Acetaminophen (Tylenol) 650 mg Q4H PRN ORAL Mild Pain (Pain Scale 1-3) 02/16/19 00:30 03/16/19 12:29 02/17/19 04:53 Acetaminophen (Tylenol) 650 mg Q4H PRN RECTAL Mild Pain (Pain Scale 1-3) 02/16/19 04:30 03/18/19 04:29 02/16/19 04:31 Cefepime HCl 2 gm/ Dextrose 55 ml @ 110 mls/hr EVERY 12 HOURS IVPB 02/25/19 11:30 03/04/19 11:29 02/27/19 09:19 Chlorhexidine Gluconate (Stephanie-Hex 2%) 1 applic DAILY@2000 TOPIC 02/19/19 20:00 03/21/19 19:59 02/26/19 19:57 Dextrose (Dextrose 50%) 25 ml Q30M PRN IV Hypoglycemia 02/15/19 22:15 03/16/19 16:14 Dextrose (Dextrose 50%) 50 ml Q30M PRN IV Hypoglycemia 02/15/19 22:15 03/16/19 16:14 02/16/19 06:32 Lactobacillus Acidophilus (Culturelle) 1 tab EVERY 12 HOURS ORAL 02/25/19 21:00 03/26/19 17:59 02/26/19 20:32 Lansoprazole (Prevacid) 30 mg EVERY 12 HOURS NG 02/25/19 21:00 03/26/19 17:59 02/26/19 20:32 Levetiracetam 100 ml @ 400 mls/hr Q12HR IVPB 02/19/19 09:00 03/21/19 08:59 02/27/19 09:18 Lorazepam (Ativan 2mg/ml 1ml) 1 mg Q4H PRN IV For Anxiety 02/25/19 11:00 03/04/19 10:59 02/27/19 14:34 Magnesium Sulfate 100 ml @ 100 mls/hr Q1H IVPB 02/27/19 14:30 02/27/19 18:29 Metronidazole 100 ml @ 100 mls/hr Q8HR IVPB 02/25/19 14:00 03/04/19 13:59 02/27/19 05:58 Micafungin Sodium 100 mg/Sodium Chloride 110 ml @ 110 mls/hr Q24H IVPB 02/25/19 10:30 03/04/19 10:29 02/27/19 10:45 Midodrine (Pro-Amatine) 5 mg THREE TIMES A DAY ORAL 02/27/19 18:00 03/26/19 14:59 Norepinephrine Bitartrate 8 mg/ Dextrose 508 ml @ 0 mls/hr Q24H IV 02/16/19 09:30 03/18/19 09:29 02/23/19 09:37 Ondansetron HCl (Zofran) 4 mg Q6H PRN IVP Nausea & Vomiting 02/16/19 01:00 03/16/19 12:59 02/24/19 18:50 Phenylephrine HCl 50 mg/Dextrose 250 ml @ 0 mls/hr Q24H IV 02/16/19 22:30 03/18/19 22:29 Potassium Phosphate 30 mm/ Sodium Chloride 285 ml @ 47.5 mls/hr ONCE ONCE IV 02/27/19 15:00 02/27/19 20:59 Potassium Chloride 100 ml @ 50 mls/hr Q2H IVPB 02/27/19 14:30 02/27/19 22:29 Spironolactone (Aldactone) 50 mg EVERY 12 HOURS NG 02/24/19 21:00 03/24/19 20:59 02/26/19 20:33 Thiamine HCl (Vitamin B1) 100 mg DAILY NG 02/25/19 09:00 03/27/19 08:59 02/26/19 09:09 Vancomycin HCl (Vanco rx to dose) 1 ea DAILY PRN MISC Per rx protocol 02/16/19 09:00 03/17/19 12:59 Vancomycin HCl/ Dextrose 275 ml @ 183.333 mls/hr Q12HR@1000,2200 IVPB 02/24/19 22:00 03/01/19 21:59 02/27/19 10:11 Vasopressin 100 units/Sodium Chloride 100 ml @ 0 mls/hr Q24H IV 02/16/19 08:15 03/18/19 08:14 02/16/19 08:15 Laboratory Tests 02/26/19 20:18: Arterial Blood pH 7.325L, Arterial Blood Partial Pressure CO2 57.9*H, Arterial Blood Partial Pressure O2 105.1H, Arterial Blood HCO3 29.5H, Arterial Blood Oxygen Saturation 97.0, Arterial Blood Base Excess 2.7H, Cesar Test Positive 02/26/19 21:00: Vancomycin Level Trough 17.5H 02/27/19 05:30: Prothrombin Time 14.9H, Prothromb Time International Ratio 1.4H, Activated Partial Thromboplast Time 34H 02/27/19 08:20: Arterial Blood pH 7.463H, Arterial Blood Partial Pressure CO2 38.5, Arterial Blood Partial Pressure O2 84.5, Arterial Blood HCO3 27.0H, Arterial Blood Oxygen Saturation 96.1, Arterial Blood Base Excess 3H, Cesar Test Positive 02/27/19 10:30: White Blood Count 28.4*H, Red Blood Count 2.65L, Hemoglobin 8.5L, Hematocrit 26.3L, Mean Corpuscular Volume 99, Mean Corpuscular Hemoglobin 32.0H, Mean Corpuscular Hemoglobin Concent 32.3, Red Cell Distribution Width 16.0H, Platelet Count 479H, Mean Platelet Volume 6.3L, Neutrophils (%) (Auto) , Lymphocytes (%) (Auto) , Monocytes (%) (Auto) , Eosinophils (%) (Auto) , Basophils (%) (Auto) , Differential Total Cells Counted 100, Neutrophils % ( Manual) 76H, Lymphocytes % (Manual) 10L, Monocytes % (Manual) 9, Eosinophils % ( Manual) 2, Basophils % (Manual) 2, Band Neutrophils 1, Platelet Estimate Adequate, Platelet Morphology Normal, Hypochromasia 2+, Anisocytosis 1+, Sodium Level 139, Potassium Level 2.3*L, Chloride Level 111H, Carbon Dioxide Level 24, Anion Gap 4L, Blood Urea Nitrogen 4L, Creatinine 0.5L, Estimat Glomerular Filtration Rate > 60, Glucose Level 211#H, Calcium Level 6.2#L, Ionized Calcium (Measured) 1.04L, Phosphorus Level 2.2L, Magnesium Level 1.3L, Total Bilirubin 0.6, Direct Bilirubin 0.2, Aspartate Amino Transf (AST/SGOT) 18, Alanine Aminotransferase (ALT/SGPT) 11L, Alkaline Phosphatase 119H, Total Protein 7.0, Albumin 2.5L Height (Feet): 5 Height (Inches): 5.00 Weight (Pounds): 174 Objective exam stable, urine clearing Jeremy Matta MD Feb 27, 2019 14:35
[2019-02-27] MEDS ORDERED: fentaNYL 100 mcg/2 mL IV SCH ×2 (14:42→14:45)
--- NOTE | 2019-02-27 14:59 | Operative Note - PDOC ---
Operative Note Operative Note Chief Complaint: DICT # [id number] Pre-op Diagnosis: LUNG INFILTRATES Procedure: Flexible fiberoptic bronchoscopy with bronchoalveolar lavage and therapeutic aspiration of mucous plug Post-op Diagnosis: same as pre-op Operative Findings: consistent w/pre-op dx studies Surgeon: Kimberly Anesthesia: moderate sedation Specimen: yes Complications: none Condition: stable Estimated Blood Loss: none Drains: none Implant(s) used?: No Han Harris MD Feb 27, 2019 14:59
[2019-02-27] MEDS ORDERED: Potassium Phosphate 30 MM in NS 275 ML IV ONE (15:00)
[2019-02-27] MEDS ORDERED: LORazepam Inj 2mg/ml 1ml IV SCH (15:15)
--- NOTE | 2019-02-27 15:46 | NUR ---
NURSE NOTES: Dr Harris here to do bronchoscopy. Pt given ativan for sedation. Sputum sent to lab for culture.
--- NOTE | 2019-02-27 15:47 | NUR ---
RESPIRATORY NOTES: Weaning stopped at 1430. Placed onto previous settings.
[2019-02-27] MEDS: KCl 20mEq 100ml Premix IVPB SCH ×4 (16:28→20:58)
--- NOTE | 2019-02-27 17:04 | Hematology/Onc Progress Note ---
Assessment/Plan Assessment/Plan # Bicytopenia with anemia likely due to Gi bleed -- stool occult blood +, requires further eval with gi, also with etoh withdrawal, also can be related to meds/abx, Hida shows Limited hepatic uptake and excretion, probably due to hepatocellular disease. Note that previous imaging studies suggest the presence of cirrhotic changes. --> anemia panel has been reviewed and results are acd --> peripheral smear reviewed and not noted to have blasts --> wbc remains elevated --> started on folate 1mg po daily (LOW FOLATE) --> Flow cytometry shows no evidence of b-lymphoproliferative disorder --> Hep panel negative # Anemia of chronic disease, per anemia panel --> hgb trend 8-->7-->8-->9-->8.6-->7.7-->7.9-->8.3-->7.9->8.5 --> may require gi eval when more stable with scope (EGD) --> transfuse if hb <7 --> cont folic acid and thiamine # Leukocytosis due to Septic shock and severe Lactic acidosis on Levophed and broad-spectrum IV antibiotics. --> per ID care, continue abx --> pressor as needed --> vanc/zosyn, flucon --> Hgb trend: 34.9 -->28k-->35k # Sinus tachycardia up to 170s. No evidence of acute myocardial infarction . --> This is likely due to sepsis and anemia, alcohol withdrawal --> Echo Nl EF 60% # Troponin leak, type 2. --> per cards # Respiratory failure on the vent. Failed weaning --> sbt trial per pulm --> on vent # ETOH withdrawal --> recommend cessation # Seizures with noncompliance Greatly appreciate consultation. Subjective Constitutional: Denies: no symptoms, chills, fever, malaise, weakness, other HEENT: Denies: no symptoms, eye pain, blurred vision, tearing, double vision, ear pain, ear discharge, nose pain, nose congestion, throat pain, throat swelling, mouth pain, mouth swelling, other Cardiovascular: Denies: no symptoms, chest pain, edema, irregular heart rate, lightheadedness, palpitations, syncope, other Respiratory: Denies: no symptoms, cough, shortness of breath, SOB with excertion, SOB at rest, sputum, wheezing, other Genitourinary: Denies: no symptoms, burning, discharge, frequency, flank pain, hematuria, incontinence, pain, urgency, other Neurologic/Psychiatric: Denies: no symptoms, anxiety, depressed, emotional problems, headache, numbness, paresthesia, pre-existing deficit, seizure, tingling, tremors, weakness, other Endocrine: Denies: no symptoms, excessive sweating, flushing, intolerance to cold, intolerance to heat, increased hunger, increased thirst, increased urine, unexplained weight gain, unexplained weight loss, other Allergies: Coded Allergies: No Known Allergies (Unverified , 02/10/15) Subjective 02/20: intubated, counts are better, on vent, sbt in process, no f/c, mag low 02/21: endoscopy on hold at this time, bloody stool, plt better, on abx 02/22: no events reported, remains intubated, no bleeding, plt better, k is low, repleted\ 02/23: remains in icu, letargic, flow cytometry showed no evidence of b- lymphoproliferative disorder, c-diif negative, labs reviewed, remains on levo 02/24: in icu, on vent, wbc at 32, id made aware. 02/25: icu, weaning off of vent, labs reviewed, continues on abx 02/26: no fc, no changes reported, wbc high, ongoing hida scan 02/27: no events, bronch to be done today, results pending Objective Objective Current Medications Medications (Trade) Dose Ordered Sig/Tonny Route PRN Reason Start Time Stop Time Status Last Admin Dose Admin Acetaminophen (Tylenol) 650 mg Q4H PRN ORAL Mild Pain (Pain Scale 1-3) 02/16/19 00:30 03/16/19 12:29 02/17/19 04:53 Acetaminophen (Tylenol) 650 mg Q4H PRN RECTAL Mild Pain (Pain Scale 1-3) 02/16/19 04:30 03/18/19 04:29 02/16/19 04:31 Cefepime HCl 2 gm/ Dextrose 55 ml @ 110 mls/hr EVERY 12 HOURS IVPB 02/25/19 11:30 03/04/19 11:29 02/27/19 09:19 Chlorhexidine Gluconate (Stephanie-Hex 2%) 1 applic DAILY@2000 TOPIC 02/19/19 20:00 03/21/19 19:59 02/26/19 19:57 Dextrose (Dextrose 50%) 25 ml Q30M PRN IV Hypoglycemia 02/15/19 22:15 03/16/19 16:14 Dextrose (Dextrose 50%) 50 ml Q30M PRN IV Hypoglycemia 02/15/19 22:15 03/16/19 16:14 02/16/19 06:32 Lactobacillus Acidophilus (Culturelle) 1 tab EVERY 12 HOURS ORAL 02/25/19 21:00 03/26/19 17:59 02/26/19 20:32 Lansoprazole (Prevacid) 30 mg EVERY 12 HOURS NG 02/25/19 21:00 03/26/19 17:59 02/26/19 20:32 Levetiracetam 100 ml @ 400 mls/hr Q12HR IVPB 02/19/19 09:00 03/21/19 08:59 02/27/19 09:18 Lorazepam (Ativan 2mg/ml 1ml) 1 mg Q4H PRN IV For Anxiety 02/25/19 11:00 03/04/19 10:59 02/27/19 14:34 Magnesium Sulfate 100 ml @ 100 mls/hr Q1H IVPB 02/27/19 14:30 02/27/19 18:29 02/27/19 16:28 Metronidazole 100 ml @ 100 mls/hr Q8HR IVPB 02/25/19 14:00 03/04/19 13:59 02/27/19 15:30 Micafungin Sodium 100 mg/Sodium Chloride 110 ml @ 110 mls/hr Q24H IVPB 02/25/19 10:30 03/04/19 10:29 02/27/19 10:45 Midodrine (Pro-Amatine) 5 mg THREE TIMES A DAY ORAL 02/27/19 18:00 03/26/19 14:59 Norepinephrine Bitartrate 8 mg/ Dextrose 508 ml @ 0 mls/hr Q24H IV 02/16/19 09:30 03/18/19 09:29 02/23/19 09:37 Ondansetron HCl (Zofran) 4 mg Q6H PRN IVP Nausea & Vomiting 02/16/19 01:00 8/9/19 12:59 02/24/19 18:50 Phenylephrine HCl 50 mg/Dextrose 250 ml @ 0 mls/hr Q24H IV 02/16/19 22:30 03/18/19 22:29 Potassium Phosphate 30 mm/ Sodium Chloride 285 ml @ 47.5 mls/hr ONCE ONCE IV 02/27/19 15:00 02/27/19 20:59 Potassium Chloride 100 ml @ 50 mls/hr Q2H IVPB 02/27/19 14:30 02/27/19 22:29 02/27/19 16:28 Spironolactone (Aldactone) 50 mg EVERY 12 HOURS NG 02/24/19 21:00 03/24/19 20:59 02/26/19 20:33 Thiamine HCl (Vitamin B1) 100 mg DAILY NG 02/25/19 09:00 03/27/19 08:59 02/26/19 09:09 Vancomycin HCl (Vanco rx to dose) 1 ea DAILY PRN MISC Per rx protocol 02/16/19 09:00 03/17/19 12:59 Vancomycin HCl/ Dextrose 275 ml @ 183.333 mls/hr Q12HR@1000,2200 IVPB 02/24/19 22:00 03/01/19 21:59 02/27/19 10:11 Vasopressin 100 units/Sodium Chloride 100 ml @ 0 mls/hr Q24H IV 02/16/19 08:15 03/18/19 08:14 02/16/19 08:15 Last 24 Hour Vital Signs Date Time Temp Pulse Resp B/P (MAP) Pulse Ox O2 Delivery O2 Flow Rate FiO2 02/27/19 16:00 35 02/27/19 16:00 116 02/27/19 16:00 98.6 109 36 93/60 (71) 100 02/27/19 16:00 Mechanical Ventilator 02/27/19 15:29 112 28 35 02/27/19 15:00 119 36 71/39 (50) 97 02/27/19 14:00 111 37 93/52 (66) 92 02/27/19 13:19 110 37 35 02/27/19 13:00 114 35 104/54 (71) 94 02/27/19 12:00 116 02/27/19 12:00 35 02/27/19 12:00 Mechanical Ventilator 02/27/19 12:00 98.4 115 34 120/73 (89) 94 02/27/19 11:24 115 33 35 02/27/19 11:00 117 36 136/83 (100) 94 02/27/19 10:00 117 38 131/80 (97) 98 02/27/19 09:22 127/73 02/27/19 09:00 112 36 122/78 (93) 95 02/27/19 08:37 98 02/27/19 08:33 108 32 35 02/27/19 08:00 114 02/27/19 08:00 98.2 113 32 127/73 (91) 97 02/27/19 08:00 35 02/27/19 08:00 Mechanical Ventilator 02/27/19 07:07 111 36 35 02/27/19 07:00 98 25 112/62 (79) 96 02/27/19 06:00 98.1 109 26 98/56 (70) 99 02/27/19 05:10 108 33 35 02/27/19 05:00 102 29 104/60 (75) 100 02/27/19 04:09 98 02/27/19 04:00 Mechanical Ventilator 02/27/19 04:00 35 02/27/19 04:00 101 24 108/64 (79) 99 02/27/19 03:05 97 27 35 02/27/19 03:00 99 28 98/58 (71) 100 02/27/19 02:00 106 31 105/72 (83) 99 02/27/19 01:18 103 30 35 02/27/19 01:00 105 32 103/62 (76) 96 02/27/19 00:00 35 02/27/19 00:00 98.4 113 31 118/81 (93) 96 02/27/19 00:00 113 02/27/19 00:00 Mechanical Ventilator 02/26/19 23:15 113 35 35 02/26/19 23:00 110 33 118/71 (87) 97 02/26/19 22:30 113 118/73 02/26/19 22:00 110 33 118/73 (88) 98 02/26/19 21:00 112 34 116/76 (89) 97 02/26/19 20:54 110 34 35 02/26/19 20:00 98.4 104 32 112/75 (87) 99 02/26/19 20:00 104 02/26/19 20:00 40 02/26/19 20:00 Mechanical Ventilator 02/26/19 19:45 103 32 40 02/26/19 19:00 106 32 104/68 (80) 98 02/26/19 18:00 110 29 116/78 (91) 97 02/26/19 17:23 105 31 40 02/26/19 17:00 98.2 107 33 115/72 (86) 98 02/26/19 16:00 107 02/26/19 16:00 40 02/26/19 16:00 Mechanical Ventilator 02/26/19 16:00 110 29 115/72 (86) 95 02/26/19 15:00 111 35 124/76 (92) 95 02/26/19 14:52 113 38 02/26/19 14:48 114 32 40 02/26/19 14:00 112 35 124/74 (91) 99 02/26/19 13:00 98.4 116 33 136/83 (100) 97 02/26/19 12:49 106 37 02/26/19 12:00 40 02/26/19 12:00 94 26 107/70 (82) 99 02/26/19 12:00 111 02/26/19 12:00 Mechanical Ventilator 02/26/19 11:56 98.4 02/26/19 11:00 105 26 117/68 (84) 99 02/26/19 10:00 96 26 108/64 (79) 99 02/26/19 09:11 119/76 02/26/19 09:00 104 41 121/74 (90) 97 02/26/19 09:00 105 29 104/68 (80) 97 02/26/19 08:16 100 37 40 02/26/19 08:15 99 02/26/19 08:00 Mechanical Ventilator 02/26/19 08:00 98.4 99 35 121/77 (92) 100 02/26/19 08:00 93 02/26/19 08:00 40 02/26/19 07:20 94 27 40 02/26/19 07:00 94 27 106/61 (76) 100 02/26/19 06:00 99 32 114/69 (84) 100 02/26/19 05:00 109 31 133/86 (102) 100 02/26/19 04:55 107 34 40 02/26/19 04:00 102 02/26/19 04:00 40 02/26/19 04:00 97.7 99 32 125/78 (94) 100 02/26/19 04:00 Mechanical Ventilator 02/26/19 03:04 105 35 40 02/26/19 03:00 101 32 111/68 (82) 97 02/26/19 02:00 109 35 122/79 (93) 100 02/26/19 01:00 111 29 119/73 (88) 100 02/26/19 00:52 109 33 40 02/26/19 00:00 112 02/26/19 00:00 Mechanical Ventilator 02/26/19 00:00 98.0 108 33 120/70 (87) 99 02/26/19 00:00 40 02/25/19 23:00 111 28 125/77 (93) 100 02/25/19 22:52 104 31 40 02/25/19 22:00 98 30 114/72 (86) 100 02/25/19 21:00 108 31 118/75 (89) 98 02/25/19 20:44 100 30 40 02/25/19 20:00 98 02/25/19 20:00 97.7 95 31 102/72 (82) 100 02/25/19 20:00 Mechanical Ventilator 02/25/19 20:00 40 02/25/19 19:00 100 33 109/77 (88) 100 02/25/19 18:47 103 34 40 02/25/19 18:00 107 30 117/74 (88) 98 Intake and Output 02/26/19 02/27/19 19:00 07:00 Intake Total 1461.333 ml 1130 ml Output Total 2730 ml 1705 ml Balance -1268.667 ml -575 ml Free Water 60 ml IV Total 1341.333 ml 530 ml Tube Feeding 120 ml 480 ml Other 60 ml Output Urine Total 2680 ml 1705 ml Stool Total 50 ml Labs Test 02/25/19 05:25 02/25/19 09:05 02/26/19 08:00 02/26/19 20:18 White Blood Count 36.3 K/UL (4.8-10.8) 27.8 K/UL (4.8-10.8) Red Blood Count 2.63 M/UL (4.70-6.10) 2.46 M/UL (4.70-6.10) Hemoglobin 8.3 G/DL (14.2-18.0) 7.9 G/DL (14.2-18.0) Hematocrit 25.8 % (42.0-52.0) 23.9 % (42.0-52.0) Mean Corpuscular Volume 98 FL (80-99) 97 FL (80-99) Mean Corpuscular Hemoglobin 31.5 PG (27.0-31.0) 32.2 PG (27.0-31.0) Mean Corpuscular Hemoglobin Concent 32.2 G/DL (32.0-36.0) 33.3 G/DL (32.0-36.0) Red Cell Distribution Width 16.8 % (11.6-14.8) 16.2 % (11.6-14.8) Platelet Count 410 K/UL (150-450) 400 K/UL (150-450) Mean Platelet Volume 6.8 FL (6.5-10.1) 6.6 FL (6.5-10.1) Neutrophils (%) (Auto) % (45.0-75.0) % (45.0-75.0) Lymphocytes (%) (Auto) % (20.0-45.0) % (20.0-45.0) Monocytes (%) (Auto) % (1.0-10.0) % (1.0-10.0) Eosinophils (%) (Auto) % (0.0-3.0) % (0.0-3.0) Basophils (%) (Auto) % (0.0-2.0) % (0.0-2.0) Differential Total Cells Counted 100 100 Neutrophils % (Manual) 79 % (45-75) 73 % (45-75) Lymphocytes % (Manual) 5 % (20-45) 9 % (20-45) Monocytes % (Manual) 9 % (1-10) 12 % (1-10) Eosinophils % (Manual) 1 % (0-3) 2 % (0-3) Basophils % (Manual) 0 % (0-2) 0 % (0-2) Band Neutrophils 6 % (0-8) 1 % (0-8) Platelet Estimate Adequate Increased Platelet Morphology Normal Normal Polychromasia 1+ Hypochromasia 2+ Anisocytosis 1+ 1+ Sodium Level 138 MMOL/L (136-145) 137 MMOL/L (136-145) Potassium Level 4.8 MMOL/L (3.5-5.1) 3.0 MMOL/L (3.5-5.1) Chloride Level 106 MMOL/L (98-107) 107 MMOL/L (98-107) Carbon Dioxide Level 26 MMOL/L (21-32) 29 MMOL/L (21-32) Anion Gap 7 mmol/L (5-15) 1 mmol/L (5-15) Blood Urea Nitrogen 4 mg/dL (7-18) 6 mg/dL (7-18) Creatinine 0.6 MG/DL (0.55-1.30) 0.6 MG/DL (0.55-1.30) Estimat Glomerular Filtration Rate > 60 mL/min (>60) > 60 mL/min (>60) Glucose Level 97 MG/DL (74-106) 85 MG/DL (74-106) Uric Acid 1.0 MG/DL (2.6-7.2) Calcium Level 7.9 MG/DL (8.5-10.1) 7.8 MG/DL (8.5-10.1) Phosphorus Level 3.5 MG/DL (2.5-4.9) Magnesium Level 1.7 MG/DL (1.8-2.4) 1.6 MG/DL (1.8-2.4) Total Bilirubin 9.6 MG/DL (0.2-1.0) 9.9 MG/DL (0.2-1.0) Direct Bilirubin 7.1 MG/DL (0.0-0.3) 8.6 MG/DL (0.0-0.3) Gamma Glutamyl Transpeptidase 661 U/L (5-85) Aspartate Amino Transf (AST/SGOT) 257 U/L (15-37) 197 U/L (15-37) Alanine Aminotransferase (ALT/SGPT) 82 U/L (12-78) 68 U/L (12-78) Alkaline Phosphatase 299 U/L (46-116) 279 U/L (46-116) C-Reactive Protein, Quantitative 5.8 mg/dL (0.00-0.90) Pro-B-Type Natriuretic Peptide 559 pg/mL (0-125) Total Protein 6.1 G/DL (6.4-8.2) 5.8 G/DL (6.4-8.2) Albumin 1.5 G/DL (3.4-5.0) 1.4 G/DL (3.4-5.0) Globulin 4.6 g/dL 4.4 g/dL Albumin/Globulin Ratio 0.3 (1.0-2.7) 0.3 (1.0-2.7) Folate 23.6 NG/ML (8.6-58.9) Urine Color Yellow Urine Appearance Clear Urine pH 7 (4.5-8.0) Urine Specific [place] 1.005 (1.005-1.035) Urine Protein Negative (NEGATIVE) Urine Glucose (UA) Negative (NEGATIVE) Urine Ketones Negative (NEGATIVE) Urine Blood 1+ (NEGATIVE) Urine Nitrite Negative (NEGATIVE) Urine Bilirubin 2+ (NEGATIVE) Urine Ictotest Positive (NEGATIVE) Urine Urobilinogen 1 MG/DL (0.0-1.0) Urine Leukocyte Esterase 1+ (NEGATIVE) Urine RBC 0-2 /HPF (0 - 0) Urine WBC 0-2 /HPF (0 - 0) Urine Squamous Epithelial Cells Occasional /LPF Urine Bacteria Occasional /HPF (NONE) Metamyelocytes % 2 % (0-0) Myelocytes % 1 % (0-0) Macrocytosis 1+ Arterial Blood pH 7.325 (7.350-7.450) Arterial Blood Partial Pressure CO2 57.9 mmHg (35.0-45.0) Arterial Blood Partial Pressure O2 105.1 mmHg (75.0-100.0) Arterial Blood HCO3 29.5 mmol/L (22.0-26.0) Arterial Blood Oxygen Saturation 97.0 % (95-100) Arterial Blood Base Excess 2.7 (-2-2) Cesar Test Positive Test 02/26/19 21:00 02/27/19 05:30 02/27/19 08:20 02/27/19 10:30 Vancomycin Level Trough 17.5 ug/mL (5.0-12.0) Prothrombin Time 14.9 SEC (9.30-11.50) Prothromb Time International Ratio 1.4 (0.9-1.1) Activated Partial Thromboplast Time 34 SEC (23-33) Arterial Blood pH 7.463 (7.350-7.450) Arterial Blood Partial Pressure CO2 38.5 mmHg (35.0-45.0) Arterial Blood Partial Pressure O2 84.5 mmHg (75.0-100.0) Arterial Blood HCO3 27.0 mmol/L (22.0-26.0) Arterial Blood Oxygen Saturation 96.1 % (95-100) Arterial Blood Base Excess 3 (-2-2) Cesar Test Positive White Blood Count 28.4 K/UL (4.8-10.8) Red Blood Count 2.65 M/UL (4.70-6.10) Hemoglobin 8.5 G/DL (14.2-18.0) Hematocrit 26.3 % (42.0-52.0) Mean Corpuscular Volume 99 FL (80-99) Mean Corpuscular Hemoglobin 32.0 PG (27.0-31.0) Mean Corpuscular Hemoglobin Concent 32.3 G/DL (32.0-36.0) Red Cell Distribution Width 16.0 % (11.6-14.8) Platelet Count 479 K/UL (150-450) Mean Platelet Volume 6.3 FL (6.5-10.1) Neutrophils (%) (Auto) % (45.0-75.0) Lymphocytes (%) (Auto) % (20.0-45.0) Monocytes (%) (Auto) % (1.0-10.0) Eosinophils (%) (Auto) % (0.0-3.0) Basophils (%) (Auto) % (0.0-2.0) Differential Total Cells Counted 100 Neutrophils % (Manual) 76 % (45-75) Lymphocytes % (Manual) 10 % (20-45) Monocytes % (Manual) 9 % (1-10) Eosinophils % (Manual) 2 % (0-3) Basophils % (Manual) 2 % (0-2) Band Neutrophils 1 % (0-8) Platelet Estimate Adequate Platelet Morphology Normal Hypochromasia 2+ Anisocytosis 1+ Sodium Level 139 MMOL/L (136-145) Potassium Level 2.3 MMOL/L (3.5-5.1) Chloride Level 111 MMOL/L (98-107) Carbon Dioxide Level 24 MMOL/L (21-32) Anion Gap 4 mmol/L (5-15) Blood Urea Nitrogen 4 mg/dL (7-18) Creatinine 0.5 MG/DL (0.55-1.30) Estimat Glomerular Filtration Rate > 60 mL/min (>60) Glucose Level 211 MG/DL (74-106) Calcium Level 6.2 MG/DL (8.5-10.1) Ionized Calcium (Measured) 1.04 mmol/L (1.10-1.35) Phosphorus Level 2.2 MG/DL (2.5-4.9) Magnesium Level 1.3 MG/DL (1.8-2.4) Total Bilirubin 0.6 MG/DL (0.2-1.0) Direct Bilirubin 0.2 MG/DL (0.0-0.3) Aspartate Amino Transf (AST/SGOT) 18 U/L (15-37) Alanine Aminotransferase (ALT/SGPT) 11 U/L (12-78) Alkaline Phosphatase 119 U/L (46-116) Total Protein 7.0 G/DL (6.4-8.2) Albumin 2.5 G/DL (3.4-5.0) Test 02/27/19 15:00 Height (Feet): 5 Height (Inches): 5.00 Weight (Pounds): 174 Objective Gen: NAD HEENT: atraumatic, other - OGT Lungs: clear, VENT++ Heart: HR/BP unstable Abdomen: soft, non-tender, active bowel sounds Extremities: no cce, L femoral cath+ Robert Johnston MD Feb 27, 2019 17:04
--- NOTE | 2019-02-27 18:29 | NUR ---
NURSE NOTES: Inserted new OGT. Awaiting xray to verify placement. Will continue to monitor.
--- NOTE | 2019-02-27 18:59 | NUR ---
RESPIRATORY NOTE: Received pt on AC/PC RR 26, Pi 26 (but switch it back to original setting of Pi 24), Ti .60, FIO2 35%, and Peep +5. Bite block is placed on left side which I switched it to the right side. Intubated with 7.5 size ett at 24 at the lip secured by anchor fast. Pt is on bilateral restraint. Small amount of clear, red specks thin secretion and will sxn as needed. Ambu bag on the bed side. Vent is plugged into red outlet and will continue to monitor pt's progress.
--- NOTE | 2019-02-27 19:27 | NUR ---
HAND-OFF: Report given to Donna BALBUENA.
--- NOTE | 2019-02-27 19:43 | NUR ---
NURSE NOTES: pt awake and alert x1 orally intubated o2 sat 100 o/o no acute resp distress reposition and suction
[2019-02-27] MEDS: Dyna-Hex 2% Top Sol 2oz TOPIC SCH (20:26)
--- NOTE | 2019-02-27 22:00 | NUR ---
NURSE NOTES: family visiting reposition no c/o pain iv infusing well no acute resp distress noted
[2019-02-27] MEDS: Phenylephrine 50 MG in D5W 245 ML IV SCH (22:30)
--- NOTE | 2019-02-27 23:21 | Diagnostic Imaging Report ---
Indication: NG tube placement Comparison: None A single view chest radiograph was obtained. Findings: Study obtained for purposes of NG tube localization. The proximal and distal ports are within the mid to distal stomach. IMPRESSION: Nasogastric tube satisfactory in position
[2019-02-28] VITALS (24 sets, daily range): BP systolic 96–117; BP diastolic 45–85
--- NOTE | 2019-02-28 | NUR ---
asleep o2 sat 100 o/o reposition
--- NOTE | 2019-02-28 02:00 | NUR ---
NURSE NOTES: asleep no acute resp distress noted
--- NOTE | 2019-02-28 02:00 | Operative Note - Dictated ---
DATE OF OPERATION: 02/27/2019 SURGEON: Han Harris M.D. PROCEDURE: Flexible fiberoptic bronchoscopy with bronchoalveolar lavage and therapeutic aspiration of mucus plugging. PREOPERATIVE DIAGNOSES: Pneumonia, respiratory failure, and high peak pressures on the ventilator. POSTOPERATIVE DIAGNOSES: Pneumonia, respiratory failure, high peak pressures on the ventilator, endotracheal tube debris and mucus plugs, right upper lobe mucous plugs, status post therapeutic aspiration. PROCEDURES: 1. Flexible fiberoptic bronchoscopy. 2. Moderate sedation. 3. Therapeutic aspiration and mucus plug from the endotracheal tube in right upper lobe. COMPLICATIONS: None. ESTIMATED BLOOD LOSS: None. SEDATION: Moderate sedation in the ICU with Ativan 2 mg IV x1. MONITORING: ICU monitoring. STUDIES: BAL specimen pooled sent. DISPOSITION: ICU room. DESCRIPTION OF PROCEDURE: After informed consent was obtained. The patient was verified as the patient in his ICU room. A time-out was then performed. The bronchoscope was advanced through the endotracheal tube into the trachea. The endotracheal tube is 3 cm above the [place]. There was marked mucus plugging within the endotracheal tube itself, which was aspirated. Thereafter, the bronchoscope was advanced into both mainstem bronchi and subsegmental bronchi. There was increased secretions bilaterally, mucopurulent including mucus plugging of the right upper lobe, which was therapeutically aspirated. BAL specimen was sent. All airways were patent at the end of the procedure. The bronchoscope was then withdrawn. Han Harris M.D. DR: BONI JOB#: [id number] CC:
--- NOTE | 2019-02-28 04:00 | NUR ---
NURSE NOTES: complete bed bath oral care and back care reposition suction tube feeding no residual
--- NOTE | 2019-02-28 06:00 | NUR ---
NURSE NOTES: reposition and suction no residual for weinning today
[2019-02-28 06:03] LABS: HEMOGLOBIN 7.5 G/DL (14.2-18.0); MEAN CORPUSCULAR VOLUME 98 FL (80-99); PLATELET COUNT 440 K/UL (150-450); RED BLOOD COUNT 2.36 M/UL (4.70-6.10); RED CELL DISTRIBUTION WIDTH 15.4 % (11.6-14.8)
[2019-02-28 06:41] LABS: WHITE BLOOD COUNT 22.2 K/UL (4.8-10.8)
--- NOTE | 2019-02-28 06:58 | Hematology/Onc Progress Note ---
Assessment/Plan Assessment/Plan # Bicytopenia with anemia likely due to Gi bleed -- stool occult blood +, requires further eval with gi, also with etoh withdrawal, also can be related to meds/abx, Hida shows Limited hepatic uptake and excretion, probably due to hepatocellular disease. Note that previous imaging studies suggest the presence of cirrhotic changes. --> anemia panel has been reviewed and results are acd --> peripheral smear reviewed and not noted to have blasts --> wbc remains elevated --> started on folate 1mg po daily (LOW FOLATE) --> Flow cytometry shows no evidence of b-lymphoproliferative disorder --> Hep panel negative # Anemia of chronic disease, per anemia panel --> hgb trend 8-->7-->8-->9-->8.6-->7.7-->7.9-->8.3-->7.9->8.5 --> may require gi eval when more stable with scope (EGD) --> transfuse if hb <7 --> cont folic acid and thiamine # Leukocytosis due to Septic shock and severe Lactic acidosis on Levophed and broad-spectrum IV antibiotics. --> per ID care, continue abx --> pressor as needed --> vanc/zosyn, flucon --> Hgb trend: 34.9 -->28k-->35k # Sinus tachycardia up to 170s. No evidence of acute myocardial infarction . --> This is likely due to sepsis and anemia, alcohol withdrawal --> Echo Nl EF 60% # Troponin leak, type 2. --> per cards # Respiratory failure on the vent. Failed weaning --> sbt trial per pulm --> on vent --> 02/27 the bronchoscope was advanced into both mainstem bronchi and subsegmental bronchi. There was increased secretions bilaterally, mucopurulent including mucus plugging of the right upper lobe, which was therapeutically aspirated. BAL specimen was sent. # Transaminitis with elev bilis --> as per gi # ETOH withdrawal --> recommend cessation # Seizures with noncompliance Greatly appreciate consultation. Subjective Constitutional: Denies: no symptoms, chills, fever, malaise, weakness, other HEENT: Denies: no symptoms, eye pain, blurred vision, tearing, double vision, ear pain, ear discharge, nose pain, nose congestion, throat pain, throat swelling, mouth pain, mouth swelling, other Cardiovascular: Denies: no symptoms, chest pain, edema, irregular heart rate, lightheadedness, palpitations, syncope, other Respiratory: Denies: no symptoms, cough, shortness of breath, SOB with excertion, SOB at rest, sputum, wheezing, other Gastrointestinal/Abdominal: Denies: no symptoms, abdomen distended, abdominal pain, black stools, tarry stools, blood in stool, constipated, diarrhea, difficulty swallowing, nausea, poor appetite, poor fluid intake, rectal bleeding , vomiting, other Genitourinary: Denies: no symptoms, burning, discharge, frequency, flank pain, hematuria, incontinence, pain, urgency, other Neurologic/Psychiatric: Denies: no symptoms, anxiety, depressed, emotional problems, headache, numbness, paresthesia, pre-existing deficit, seizure, tingling, tremors, weakness, other Endocrine: Denies: no symptoms, excessive sweating, flushing, intolerance to cold, intolerance to heat, increased hunger, increased thirst, increased urine, unexplained weight gain, unexplained weight loss, other Hematologic/Lymphatic: Denies: no symptoms, anemia, easy bleeding, easy bruising, adenopathy, other Allergies: Coded Allergies: No Known Allergies (Unverified , 02/10/15) Subjective 02/20: intubated, counts are better, on vent, sbt in process, no f/c, mag low 02/21: endoscopy on hold at this time, bloody stool, plt better, on abx 02/22: no events reported, remains intubated, no bleeding, plt better, k is low, repleted\ 02/23: remains in icu, letargic, flow cytometry showed no evidence of b- lymphoproliferative disorder, c-diif negative, labs reviewed, remains on levo 02/24: in icu, on vent, wbc at 32, id made aware. 02/25: icu, weaning off of vent, labs reviewed, continues on abx 02/26: no fc, no changes reported, wbc high, ongoing hida scan 02/27: no events, bronch to be done today, results pending 02/28: no f/c, restraints++, ogt was inserted Objective Objective Current Medications Medications (Trade) Dose Ordered Sig/Tonny Route PRN Reason Start Time Stop Time Status Last Admin Dose Admin Acetaminophen (Tylenol) 650 mg Q4H PRN ORAL Mild Pain (Pain Scale 1-3) 02/16/19 00:30 03/16/19 12:29 02/17/19 04:53 Acetaminophen (Tylenol) 650 mg Q4H PRN RECTAL Mild Pain (Pain Scale 1-3) 02/16/19 04:30 03/18/19 04:29 02/16/19 04:31 Cefepime HCl 2 gm/ Dextrose 55 ml @ 110 mls/hr EVERY 12 HOURS IVPB 02/25/19 11:30 03/04/19 11:29 02/27/19 20:29 Chlorhexidine Gluconate (Stephanie-Hex 2%) 1 applic DAILY@2000 TOPIC 02/19/19 20:00 03/21/19 19:59 02/27/19 20:26 Dextrose (Dextrose 50%) 25 ml Q30M PRN IV Hypoglycemia 02/15/19 22:15 03/16/19 16:14 Dextrose (Dextrose 50%) 50 ml Q30M PRN IV Hypoglycemia 02/15/19 22:15 03/16/19 16:14 02/16/19 06:32 Lactobacillus Acidophilus (Culturelle) 1 tab EVERY 12 HOURS ORAL 02/25/19 21:00 03/26/19 17:59 02/27/19 20:54 Lansoprazole (Prevacid) 30 mg EVERY 12 HOURS NG 02/25/19 21:00 03/26/19 17:59 02/27/19 20:54 Levetiracetam 100 ml @ 400 mls/hr Q12HR IVPB 02/19/19 09:00 03/21/19 08:59 02/27/19 20:27 Lorazepam (Ativan 2mg/ml 1ml) 1 mg Q4H PRN IV For Anxiety 02/25/19 11:00 03/04/19 10:59 02/27/19 14:34 Metronidazole 100 ml @ 100 mls/hr Q8HR IVPB 02/25/19 14:00 03/04/19 13:59 02/28/19 06:00 Micafungin Sodium 100 mg/Sodium Chloride 110 ml @ 110 mls/hr Q24H IVPB 02/25/19 10:30 03/04/19 10:29 02/27/19 10:45 Midodrine (Pro-Amatine) 5 mg THREE TIMES A DAY ORAL 02/27/19 18:00 03/26/19 14:59 Norepinephrine Bitartrate 8 mg/ Dextrose 508 ml @ 0 mls/hr Q24H IV 02/16/19 09:30 03/18/19 09:29 02/23/19 09:37 Ondansetron HCl (Zofran) 4 mg Q6H PRN IVP Nausea & Vomiting 02/16/19 01:00 03/16/19 12:59 02/24/19 18:50 Phenylephrine HCl 50 mg/Dextrose 250 ml @ 0 mls/hr Q24H IV 02/16/19 22:30 03/18/19 22:29 Spironolactone (Aldactone) 50 mg EVERY 12 HOURS NG 02/24/19 21:00 03/24/19 20:59 02/27/19 20:54 Thiamine HCl (Vitamin B1) 100 mg DAILY NG 02/25/19 09:00 03/27/19 08:59 02/26/19 09:09 Vancomycin HCl (Vanco rx to dose) 1 ea DAILY PRN MISC Per rx protocol 02/16/19 09:00 03/17/19 12:59 Vancomycin HCl/ Dextrose 275 ml @ 183.333 mls/hr Q12HR@1000,2200 IVPB 02/24/19 22:00 03/01/19 21:59 02/27/19 22:55 Vasopressin 100 units/Sodium Chloride 100 ml @ 0 mls/hr Q24H IV 02/16/19 08:15 03/18/19 08:14 02/16/19 08:15 Last 24 Hour Vital Signs Date Time Temp Pulse Resp B/P (MAP) Pulse Ox O2 Delivery O2 Flow Rate FiO2 02/28/19 06:00 95 29 100/66 (77) 100 02/28/19 05:09 93 31 35 02/28/19 05:00 90 29 109/80 (90) 100 02/28/19 04:00 98.2 89 26 99/45 (63) 100 02/28/19 04:00 Mechanical Ventilator 02/28/19 04:00 35 02/28/19 04:00 97 02/28/19 03:00 94 32 112/78 (89) 100 02/28/19 02:59 95 31 35 02/28/19 02:00 98.5 109 35 110/74 (86) 100 02/28/19 01:03 106 34 35 02/28/19 01:00 106 31 115/79 (91) 100 02/28/19 00:00 104 02/28/19 00:00 106 35 106/70 (82) 100 02/28/19 00:00 Mechanical Ventilator 02/28/19 00:00 35 02/27/19 23:00 100 35 101/67 (78) 100 02/27/19 22:38 98 32 35 02/27/19 22:30 101 111/72 02/27/19 22:00 100 33 90/63 (72) 100 02/27/19 21:13 103 33 35 02/27/19 21:00 98 31 90/63 (72) 100 02/27/19 20:00 104 02/27/19 20:00 98.5 98 26 88/54 (65) 100 02/27/19 20:00 Mechanical Ventilator 02/27/19 20:00 35 02/27/19 19:00 103 27 80/45 (57) 100 02/27/19 18:58 105 32 35 02/27/19 18:00 102 26 74/46 (55) 100 02/27/19 17:29 108 33 35 02/27/19 17:00 107 33 88/53 (65) 100 02/27/19 16:00 35 02/27/19 16:00 116 02/27/19 16:00 98.6 109 36 93/60 (71) 100 02/27/19 16:00 Mechanical Ventilator 02/27/19 15:29 112 28 35 02/27/19 15:00 119 36 71/39 (50) 97 02/27/19 14:00 111 37 93/52 (66) 92 02/27/19 13:19 110 37 35 02/27/19 13:00 114 35 104/54 (71) 94 02/27/19 12:00 116 02/27/19 12:00 35 02/27/19 12:00 Mechanical Ventilator 02/27/19 12:00 98.4 115 34 120/73 (89) 94 02/27/19 11:24 115 33 35 02/27/19 11:00 117 36 136/83 (100) 94 02/27/19 10:00 117 38 131/80 (97) 98 02/27/19 09:22 127/73 02/27/19 09:00 112 36 122/78 (93) 95 02/27/19 08:37 98 02/27/19 08:33 108 32 35 02/27/19 08:00 114 02/27/19 08:00 98.2 113 32 127/73 (91) 97 02/27/19 08:00 35 02/27/19 08:00 Mechanical Ventilator 02/27/19 07:07 111 36 35 02/27/19 07:00 98 25 112/62 (79) 96 02/27/19 06:00 98.1 109 26 98/56 (70) 99 02/27/19 05:10 108 33 35 02/27/19 05:00 102 29 104/60 (75) 100 02/27/19 04:09 98 02/27/19 04:00 Mechanical Ventilator 02/27/19 04:00 35 02/27/19 04:00 101 24 108/64 (79) 99 02/27/19 03:05 97 27 35 02/27/19 03:00 99 28 98/58 (71) 100 02/27/19 02:00 106 31 105/72 (83) 99 02/27/19 01:18 103 30 35 02/27/19 01:00 105 32 103/62 (76) 96 02/27/19 00:00 35 02/27/19 00:00 98.4 113 31 118/81 (93) 96 02/27/19 00:00 113 02/27/19 00:00 Mechanical Ventilator 02/26/19 23:15 113 35 35 02/26/19 23:00 110 33 118/71 (87) 97 02/26/19 22:30 113 118/73 02/26/19 22:00 110 33 118/73 (88) 98 02/26/19 21:00 112 34 116/76 (89) 97 02/26/19 20:54 110 34 35 02/26/19 20:00 98.4 104 32 112/75 (87) 99 02/26/19 20:00 104 02/26/19 20:00 40 02/26/19 20:00 Mechanical Ventilator 02/26/19 19:45 103 32 40 02/26/19 19:00 106 32 104/68 (80) 98 02/26/19 18:00 110 29 116/78 (91) 97 02/26/19 17:23 105 31 40 02/26/19 17:00 98.2 107 33 115/72 (86) 98 02/26/19 16:00 107 02/26/19 16:00 40 02/26/19 16:00 Mechanical Ventilator 02/26/19 16:00 110 29 115/72 (86) 95 02/26/19 15:00 111 35 124/76 (92) 95 02/26/19 14:52 113 38 02/26/19 14:48 114 32 40 02/26/19 14:00 112 35 124/74 (91) 99 02/26/19 13:00 98.4 116 33 136/83 (100) 97 02/26/19 12:49 106 37 02/26/19 12:00 40 02/26/19 12:00 94 26 107/70 (82) 99 02/26/19 12:00 111 02/26/19 12:00 Mechanical Ventilator 02/26/19 11:56 98.4 02/26/19 11:00 105 26 117/68 (84) 99 02/26/19 10:00 96 26 108/64 (79) 99 02/26/19 09:11 119/76 02/26/19 09:00 104 41 121/74 (90) 97 02/26/19 09:00 105 29 104/68 (80) 97 02/26/19 08:16 100 37 40 02/26/19 08:15 99 02/26/19 08:00 Mechanical Ventilator 02/26/19 08:00 98.4 99 35 121/77 (92) 100 02/26/19 08:00 93 02/26/19 08:00 40 02/26/19 07:20 94 27 40 02/26/19 07:00 94 27 106/61 (76) 100 Intake and Output 02/27/19 02/28/19 19:00 07:00 Intake Total 700.000 ml 1195 ml Output Total 1275 ml 1200 ml Balance -575.000 ml -5 ml Free Water 300 ml IV Total 540.000 ml 575 ml Tube Feeding 160 ml 320 ml Output Urine Total 1275 ml 1200 ml Labs Test 02/25/19 09:05 02/26/19 08:00 02/26/19 20:18 02/26/19 21:00 Urine Color Yellow Urine Appearance Clear Urine pH 7 (4.5-8.0) Urine Specific [place] 1.005 (1.005-1.035) Urine Protein Negative (NEGATIVE) Urine Glucose (UA) Negative (NEGATIVE) Urine Ketones Negative (NEGATIVE) Urine Blood 1+ (NEGATIVE) Urine Nitrite Negative (NEGATIVE) Urine Bilirubin 2+ (NEGATIVE) Urine Ictotest Positive (NEGATIVE) Urine Urobilinogen 1 MG/DL (0.0-1.0) Urine Leukocyte Esterase 1+ (NEGATIVE) Urine RBC 0-2 /HPF (0 - 0) Urine WBC 0-2 /HPF (0 - 0) Urine Squamous Epithelial Cells Occasional /LPF Urine Bacteria Occasional /HPF (NONE) White Blood Count 27.8 K/UL (4.8-10.8) Red Blood Count 2.46 M/UL (4.70-6.10) Hemoglobin 7.9 G/DL (14.2-18.0) Hematocrit 23.9 % (42.0-52.0) Mean Corpuscular Volume 97 FL (80-99) Mean Corpuscular Hemoglobin 32.2 PG (27.0-31.0) Mean Corpuscular Hemoglobin Concent 33.3 G/DL (32.0-36.0) Red Cell Distribution Width 16.2 % (11.6-14.8) Platelet Count 400 K/UL (150-450) Mean Platelet Volume 6.6 FL (6.5-10.1) Neutrophils (%) (Auto) % (45.0-75.0) Lymphocytes (%) (Auto) % (20.0-45.0) Monocytes (%) (Auto) % (1.0-10.0) Eosinophils (%) (Auto) % (0.0-3.0) Basophils (%) (Auto) % (0.0-2.0) Differential Total Cells Counted 100 Neutrophils % (Manual) 73 % (45-75) Lymphocytes % (Manual) 9 % (20-45) Monocytes % (Manual) 12 % (1-10) Eosinophils % (Manual) 2 % (0-3) Basophils % (Manual) 0 % (0-2) Metamyelocytes % 2 % (0-0) Myelocytes % 1 % (0-0) Band Neutrophils 1 % (0-8) Platelet Estimate Increased Platelet Morphology Normal Anisocytosis 1+ Macrocytosis 1+ Sodium Level 137 MMOL/L (136-145) Potassium Level 3.0 MMOL/L (3.5-5.1) Chloride Level 107 MMOL/L (98-107) Carbon Dioxide Level 29 MMOL/L (21-32) Anion Gap 1 mmol/L (5-15) Blood Urea Nitrogen 6 mg/dL (7-18) Creatinine 0.6 MG/DL (0.55-1.30) Estimat Glomerular Filtration Rate > 60 mL/min (>60) Glucose Level 85 MG/DL (74-106) Calcium Level 7.8 MG/DL (8.5-10.1) Magnesium Level 1.6 MG/DL (1.8-2.4) Total Bilirubin 9.9 MG/DL (0.2-1.0) Direct Bilirubin 8.6 MG/DL (0.0-0.3) Aspartate Amino Transf (AST/SGOT) 197 U/L (15-37) Alanine Aminotransferase (ALT/SGPT) 68 U/L (12-78) Alkaline Phosphatase 279 U/L (46-116) Total Protein 5.8 G/DL (6.4-8.2) Albumin 1.4 G/DL (3.4-5.0) Globulin 4.4 g/dL Albumin/Globulin Ratio 0.3 (1.0-2.7) Arterial Blood pH 7.325 (7.350-7.450) Arterial Blood Partial Pressure CO2 57.9 mmHg (35.0-45.0) Arterial Blood Partial Pressure O2 105.1 mmHg (75.0-100.0) Arterial Blood HCO3 29.5 mmol/L (22.0-26.0) Arterial Blood Oxygen Saturation 97.0 % (95-100) Arterial Blood Base Excess 2.7 (-2-2) Cesar Test Positive Vancomycin Level Trough 17.5 ug/mL (5.0-12.0) Test 02/27/19 05:30 02/27/19 08:20 02/27/19 10:30 02/27/19 15:00 Prothrombin Time 14.9 SEC (9.30-11.50) Prothromb Time International Ratio 1.4 (0.9-1.1) Activated Partial Thromboplast Time 34 SEC (23-33) Arterial Blood pH 7.463 (7.350-7.450) Arterial Blood Partial Pressure CO2 38.5 mmHg (35.0-45.0) Arterial Blood Partial Pressure O2 84.5 mmHg (75.0-100.0) Arterial Blood HCO3 27.0 mmol/L (22.0-26.0) Arterial Blood Oxygen Saturation 96.1 % (95-100) Arterial Blood Base Excess 3 (-2-2) Cesar Test Positive White Blood Count 28.4 K/UL (4.8-10.8) Red Blood Count 2.65 M/UL (4.70-6.10) Hemoglobin 8.5 G/DL (14.2-18.0) Hematocrit 26.3 % (42.0-52.0) Mean Corpuscular Volume 99 FL (80-99) Mean Corpuscular Hemoglobin 32.0 PG (27.0-31.0) Mean Corpuscular Hemoglobin Concent 32.3 G/DL (32.0-36.0) Red Cell Distribution Width 16.0 % (11.6-14.8) Platelet Count 479 K/UL (150-450) Mean Platelet Volume 6.3 FL (6.5-10.1) Neutrophils (%) (Auto) % (45.0-75.0) Lymphocytes (%) (Auto) % (20.0-45.0) Monocytes (%) (Auto) % (1.0-10.0) Eosinophils (%) (Auto) % (0.0-3.0) Basophils (%) (Auto) % (0.0-2.0) Differential Total Cells Counted 100 Neutrophils % (Manual) 76 % (45-75) Lymphocytes % (Manual) 10 % (20-45) Monocytes % (Manual) 9 % (1-10) Eosinophils % (Manual) 2 % (0-3) Basophils % (Manual) 2 % (0-2) Band Neutrophils 1 % (0-8) Platelet Estimate Adequate Platelet Morphology Normal Hypochromasia 2+ Anisocytosis 1+ Sodium Level 139 MMOL/L (136-145) Potassium Level 2.3 MMOL/L (3.5-5.1) Chloride Level 111 MMOL/L (98-107) Carbon Dioxide Level 24 MMOL/L (21-32) Anion Gap 4 mmol/L (5-15) Blood Urea Nitrogen 4 mg/dL (7-18) Creatinine 0.5 MG/DL (0.55-1.30) Estimat Glomerular Filtration Rate > 60 mL/min (>60) Glucose Level 211 MG/DL (74-106) Calcium Level 6.2 MG/DL (8.5-10.1) Ionized Calcium (Measured) 1.04 mmol/L (1.10-1.35) Phosphorus Level 2.2 MG/DL (2.5-4.9) Magnesium Level 1.3 MG/DL (1.8-2.4) Total Bilirubin 0.6 MG/DL (0.2-1.0) Direct Bilirubin 0.2 MG/DL (0.0-0.3) Aspartate Amino Transf (AST/SGOT) 18 U/L (15-37) Alanine Aminotransferase (ALT/SGPT) 11 U/L (12-78) Alkaline Phosphatase 119 U/L (46-116) Total Protein 7.0 G/DL (6.4-8.2) Albumin 2.5 G/DL (3.4-5.0) Body Fluid Source Bronchial lavage Body Fluid Volume 25 mL Body Fluid Appearance Hazy (Clear) Body Fluid RBC 5169 /CUMM Body Fluid Total Nucleated Cells 4635 /CUMM Body Fluid Polynuclear WBCs (%) 92 % Body Fluid Mononuclear WBCs (%) 6 % Body Fluid Mesothelial Cells (%) 2 % Test 02/28/19 05:00 White Blood Count 22.2 K/UL (4.8-10.8) Red Blood Count 2.36 M/UL (4.70-6.10) Hemoglobin 7.5 G/DL (14.2-18.0) Hematocrit 23.0 % (42.0-52.0) Mean Corpuscular Volume 98 FL (80-99) Mean Corpuscular Hemoglobin 31.9 PG (27.0-31.0) Mean Corpuscular Hemoglobin Concent 32.7 G/DL (32.0-36.0) Red Cell Distribution Width 15.4 % (11.6-14.8) Platelet Count 440 K/UL (150-450) Mean Platelet Volume 6.4 FL (6.5-10.1) Neutrophils (%) (Auto) % (45.0-75.0) Lymphocytes (%) (Auto) % (20.0-45.0) Monocytes (%) (Auto) % (1.0-10.0) Eosinophils (%) (Auto) % (0.0-3.0) Basophils (%) (Auto) % (0.0-2.0) Height (Feet): 5 Height (Inches): 5.00 Weight (Pounds): 174 Objective Gen: NAD HEENT: atraumatic, other - OGT Lungs: clear, VENT++ Heart: HR/BP unstable Abdomen: soft, non-tender, active bowel sounds Extremities: no cce, L femoral cath+ Robert Johnston MD Feb 28, 2019 06:58
--- NOTE | 2019-02-28 07:27 | NUR ---
HAND-OFF: Report given to jose kwan using sbar.
--- NOTE | 2019-02-28 07:28 | NUR ---
NURSE NOTES: RECEIVED PATIENT FROM Mauricio HENRY RN. PATIENT IS SEEN LYING IN BED, AWAKE AND ABLE TO FOLLOW SIMPLE COMMANDS. HOOKED TO CABLE TELEVISION TECHNICIAN, HR NOTED AT 97. ORALLY INTUBATED, ETT 7.5 AT 22CM LIP LINE, VENT SETTINGS AC 26, TV 500, FiO2 35%, PEEP 5. NO SIGNS OF CARDIO OR RESPI DISTRESS OF THE MOMENT. OGT NOTED WITH GTF RUNNING VITAL AF AT 40ML/HR. RECTAL TUBE AND WILKINSON CATH NOTED, CONNECTED TO BAG. L UA PICC NOTED, TKO. RESTRAINTS ON BW DUE TO PULLING OBJECT. CALL LIGHT WITHIN REACH. BED AT LOWEST POSITION. SIDE RAILS UP. WILL CONTINUE TO MONITOR.
[2019-02-28 07:39] LABS: ANION GAP 4 mmol/L (5-15); BLOOD UREA NITROGEN 14 mg/dL (7-18); CALCIUM 7.8 MG/DL (8.5-10.1); CARBON DIOXIDE 28 MMOL/L (21-32); CHLORIDE 110 MMOL/L (98-107); CREATININE 1.3 MG/DL (0.55-1.30); SODIUM 142 MMOL/L (136-145)
[2019-02-28 07:49] LABS: ALBUMIN 1.3 G/DL (3.4-5.0); ALBUMIN/GLOBULIN RATIO 0.3 (1.0-2.7); ALKALINE PHOSPHATASE 288 U/L (46-116); ASPARTATE AMINO TRANSFERASE 175 U/L (15-37); BILIRUBIN,TOTAL 11.1 MG/DL (0.2-1.0); PHOSPHORUS 3.5 MG/DL (2.5-4.9)
[2019-02-28 07:51] LABS: ALANINE AMINOTRANSFERASE 60 U/L (12-78); BILIRUBIN,DIRECT 9.7 MG/DL (0.0-0.3)
[2019-02-28] MEDS: Vasopressin 100 UNITS in NS 95 ML IV SCH (08:15)
--- NOTE | 2019-02-28 08:45 | NUR ---
RESPIRATORY NOTE: Started weaning pt on cpap 5 psv 10 fio2 35%. Pt is stable and showing no s/s of distress. RN aware of changes and will cont. to monitor pt.
[2019-02-28] MEDS: Spironolactone 50mg tab NG SCH ×2 (08:52→21:00)
[2019-02-28] MEDS: Lactobacillus-GG tablet ORAL SCH ×2 (08:52→21:00)
[2019-02-28] MEDS: levETIRAcetam 500mg/NS100ml 100 ML IVPB SCH ×2 (08:53→21:15)
[2019-02-28] MEDS: Cefepime HCl 2 GM in D5W 55 ML IVPB SCH ×2 (08:53→21:15)
[2019-02-28] MEDS: Thiamine 100mg tab NG SCH (08:54)
--- NOTE | 2019-02-28 09:00 | NUR ---
NURSE NOTES: WEANING STARTED AT 0845. TOLERATING SIMV ON PS 10. NO SIGNS OF DISTRESS OF THE MOMENT. WILL CONTINUE TO MONITOR.
--- NOTE | 2019-02-28 10:20 | GI Progress Note ---
Assessment/Plan Problems: (1) Coffee ground emesis ICD Codes: K92.0 - Hematemesis SNOMED: 80504327 (2) Episode of confusion ICD Codes: R41.0 - Disorientation, unspecified SNOMED: 94150938 (3) Gastrointestinal bleed ICD Codes: K92.2 - Gastrointestinal hemorrhage, unspecified SNOMED: 97141943 (4) Abnormal LFTs ICD Codes: R94.5 - Abnormal results of liver function studies SNOMED: 978850478 (5) Diarrhea ICD Codes: R19.7 - Diarrhea, unspecified SNOMED: 73636684 (6) Electrolyte and fluid disorder ICD Codes: E87.8 - Other disorders of electrolyte and fluid balance, not elsewhere classified SNOMED: 21710518 (7) Sepsis ICD Codes: A41.9 - Sepsis, unspecified organism SNOMED: 79353167 Status: unchanged Status Narrative Discussed with Dr. Bloom. Assessment/Plan Assessment - Resp failure - diarrhea - UGIB - abnormal LFT, negative hepatitis serologies, s/p U/S x 2 (no biliary dilation) - ? cirrhosis and sepsis/hypoperfusion - ? meds - ? cholecystitis - ? alcoholic hepatitis . ? liver failure - cholelithiasis - h/o EtOH, possible early cirrhosis Recommendations - EGD scheduled for tomorrow, npo at hi. - vital TF - probiotics - monitor stool output - abx per ID - d/c tylenol - min duration antifungal Rx - supportive care - Surgical f/u re GB - fu HIDA - Will consider doppler of hepatic vessels vs liver bx The patient was seen and examined at bedside and all new and available data was reviewed in the patients chart. I agree with the above findings, impression and plan. (Patient seen earlier today. Signature stamp does not reflect patient encounter time.). - Jones Bloom MD Subjective Subjective limited Objective Last 24 Hour Vital Signs Date Time Temp Pulse Resp B/P (MAP) Pulse Ox O2 Delivery O2 Flow Rate FiO2 02/28/19 10:00 102 38 117/76 (90) 100 02/28/19 09:00 100 32 113/69 (84) 100 02/28/19 08:54 112/72 02/28/19 08:45 92 29 35 35 02/28/19 08:45 100 02/28/19 08:45 35 02/28/19 08:00 98.6 98 32 100/70 (80) 100 02/28/19 08:00 Mechanical Ventilator 02/28/19 07:20 97 32 35 02/28/19 07:00 100 32 100/70 (80) 100 02/28/19 06:00 95 29 100/66 (77) 100 02/28/19 05:09 93 31 35 02/28/19 05:00 90 29 109/80 (90) 100 02/28/19 04:00 98.2 89 26 99/45 (63) 100 02/28/19 04:00 Mechanical Ventilator 02/28/19 04:00 35 02/28/19 04:00 97 02/28/19 03:00 94 32 112/78 (89) 100 02/28/19 02:59 95 31 35 02/28/19 02:00 98.5 109 35 110/74 (86) 100 02/28/19 01:03 106 34 35 02/28/19 01:00 106 31 115/79 (91) 100 02/28/19 00:00 104 02/28/19 00:00 106 35 106/70 (82) 100 02/28/19 00:00 Mechanical Ventilator 02/28/19 00:00 35 02/27/19 23:00 100 35 101/67 (78) 100 02/27/19 22:38 98 32 35 02/27/19 22:30 101 111/72 02/27/19 22:00 100 33 90/63 (72) 100 02/27/19 21:13 103 33 35 02/27/19 21:00 98 31 90/63 (72) 100 02/27/19 20:00 104 02/27/19 20:00 98.5 98 26 88/54 (65) 100 02/27/19 20:00 Mechanical Ventilator 02/27/19 20:00 35 02/27/19 19:00 103 27 80/45 (57) 100 02/27/19 18:58 105 32 35 02/27/19 18:00 102 26 74/46 (55) 100 02/27/19 17:29 108 33 35 02/27/19 17:00 107 33 88/53 (65) 100 02/27/19 16:00 35 02/27/19 16:00 116 02/27/19 16:00 98.6 109 36 93/60 (71) 100 02/27/19 16:00 Mechanical Ventilator 02/27/19 15:29 112 28 35 02/27/19 15:00 119 36 71/39 (50) 97 02/27/19 14:00 111 37 93/52 (66) 92 02/27/19 13:19 110 37 35 02/27/19 13:00 114 35 104/54 (71) 94 02/27/19 12:00 116 02/27/19 12:00 35 02/27/19 12:00 Mechanical Ventilator 02/27/19 12:00 98.4 115 34 120/73 (89) 94 02/27/19 11:24 115 33 35 02/27/19 11:00 117 36 136/83 (100) 94 Intake and Output 02/27/19 02/28/19 19:00 07:00 Intake Total 700.000 ml 1235 ml Output Total 1275 ml 1300 ml Balance -575.000 ml -65 ml Free Water 300 ml IV Total 540.000 ml 575 ml Tube Feeding 160 ml 360 ml Output Urine Total 1275 ml 1300 ml Laboratory Tests Test 02/27/19 10:30 02/27/19 15:00 02/28/19 05:00 02/28/19 07:15 White Blood Count 28.4 K/UL (4.8-10.8) *H 22.2 K/UL (4.8-10.8) *H Red Blood Count 2.65 M/UL (4.70-6.10) L 2.36 M/UL (4.70-6.10) L Hemoglobin 8.5 G/DL (14.2-18.0) L 7.5 G/DL (14.2-18.0) L Hematocrit 26.3 % (42.0-52.0) L 23.0 % (42.0-52.0) L Mean Corpuscular Volume 99 FL (80-99) 98 FL (80-99) Mean Corpuscular Hemoglobin 32.0 PG (27.0-31.0) H 31.9 PG (27.0-31.0) H Mean Corpuscular Hemoglobin Concent 32.3 G/DL (32.0-36.0) 32.7 G/DL (32.0-36.0) Red Cell Distribution Width 16.0 % (11.6-14.8) H 15.4 % (11.6-14.8) H Platelet Count 479 K/UL (150-450) H 440 K/UL (150-450) Mean Platelet Volume 6.3 FL (6.5-10.1) L 6.4 FL (6.5-10.1) L Neutrophils (%) (Auto) % (45.0-75.0) % (45.0-75.0) Lymphocytes (%) (Auto) % (20.0-45.0) % (20.0-45.0) Monocytes (%) (Auto) % (1.0-10.0) % (1.0-10.0) Eosinophils (%) (Auto) % (0.0-3.0) % (0.0-3.0) Basophils (%) (Auto) % (0.0-2.0) % (0.0-2.0) Differential Total Cells Counted 100 100 Neutrophils % (Manual) 76 % (45-75) H 73 % (45-75) Lymphocytes % (Manual) 10 % (20-45) L 9 % (20-45) L Monocytes % (Manual) 9 % (1-10) 12 % (1-10) H Eosinophils % (Manual) 2 % (0-3) 0 % (0-3) Basophils % (Manual) 2 % (0-2) 0 % (0-2) Band Neutrophils 1 % (0-8) 6 % (0-8) Platelet Estimate Adequate Adequate Platelet Morphology Normal Normal Hypochromasia 2+ 1+ Anisocytosis 1+ 1+ Sodium Level 139 MMOL/L (136-145) 142 MMOL/L (136-145) Potassium Level 2.3 MMOL/L (3.5-5.1) *L 4.0 MMOL/L (3.5-5.1) # Chloride Level 111 MMOL/L (98-107) H 110 MMOL/L (98-107) H Carbon Dioxide Level 24 MMOL/L (21-32) 28 MMOL/L (21-32) Anion Gap 4 mmol/L (5-15) L 4 mmol/L (5-15) L Blood Urea Nitrogen 4 mg/dL (7-18) L 14 mg/dL (7-18) Creatinine 0.5 MG/DL (0.55-1.30) L 1.3 MG/DL (0.55-1.30) # Estimat Glomerular Filtration Rate > 60 mL/min (>60) > 60 mL/min (>60) Glucose Level 211 MG/DL (74-106) #H 123 MG/DL (74-106) H Calcium Level 6.2 MG/DL (8.5-10.1) #L 7.8 MG/DL (8.5-10.1) #L Ionized Calcium (Measured) 1.04 mmol/L (1.10-1.35) L Phosphorus Level 2.2 MG/DL (2.5-4.9) L 3.5 MG/DL (2.5-4.9) Magnesium Level 1.3 MG/DL (1.8-2.4) L 2.5 MG/DL (1.8-2.4) H Total Bilirubin 0.6 MG/DL (0.2-1.0) 11.1 MG/DL (0.2-1.0) H Direct Bilirubin 0.2 MG/DL (0.0-0.3) 9.7 MG/DL (0.0-0.3) H Aspartate Amino Transf (AST/SGOT) 18 U/L (15-37) 175 U/L (15-37) H Alanine Aminotransferase (ALT/SGPT) 11 U/L (12-78) L 60 U/L (12-78) Alkaline Phosphatase 119 U/L (46-116) H 288 U/L (46-116) H Total Protein 7.0 G/DL (6.4-8.2) 5.9 G/DL (6.4-8.2) L Albumin 2.5 G/DL (3.4-5.0) L 1.3 G/DL (3.4-5.0) L Body Fluid Source Bronchial lavage Body Fluid Volume 25 mL Body Fluid Appearance Hazy (Clear) Body Fluid RBC 5169 /CUMM Body Fluid Total Nucleated Cells 4635 /CUMM Body Fluid Polynuclear WBCs (%) 92 % Body Fluid Mononuclear WBCs (%) 6 % Body Fluid Mesothelial Cells (%) 2 % Macrocytosis 1+ Uric Acid 3.0 MG/DL (2.6-7.2) C-Reactive Protein, Quantitative 7.4 mg/dL (0.00-0.90) H Pro-B-Type Natriuretic Peptide 2134 pg/mL (0-125) H Globulin 4.6 g/dL Albumin/Globulin Ratio 0.3 (1.0-2.7) L Test 02/28/19 09:15 Vancomycin Level Trough 32.5 ug/mL (5.0-12.0) H Height (Feet): 5 Height (Inches): 5.00 Weight (Pounds): 174 General Appearance: WD/WN, no apparent distress, alert Cardiovascular: normal rate Respiratory/Chest: normal breath sounds, no respiratory distress Abdominal Exam: normal bowel sounds, non tender, soft, GT site Extremities: non-tender Juno Naranjo NP Feb 28, 2019 10:20
[2019-02-28] MEDS: Micafungin 100 MG in NS 110 ML IVPB SCH (10:40)
--- NOTE | 2019-02-28 10:45 | NUR ---
RESPIRATORY NOTE:Placed pt back on previous vent settings after 2 hours of weaning. RN aware of change.
--- NOTE | 2019-02-28 10:56 | NUR ---
NURSE NOTES: TOLERATED WEANING FROM VENT FOR 2 HOURS. BACK ON AC MODE WITH SAME VENT SETTINGS. SUCTIONED AND REPOSITIONED PATIENT. SEEN AND EXAMINED BY DR SANTIZO. WILL CONTINUE TO MONITOR.
--- NOTE | 2019-02-28 11:21 | NUR ---
NURSE NOTES: SEEN FAMILY MEMBER AT THE BEDSIDE. TOLERATING GTF AND VENT SETTINGS. NOTED URINE OUTPUT AROUND 50-100ML/HR. WILL CONTINUE TO MONITOR.
--- NOTE | 2019-02-28 11:30 | NUR ---
NURSE NOTES: Dr Harris here to see the patient. Placed pt back on CPAP and PS 8. O2 sat 100%. RR 25. No respiratory distress noted. Dr Harris ordered to continue to place pt on CPAP until pt tolerates. Notified RT. Per Dr Harris, GI will do EGD tomorrow and ordered to leave pt intubated until EGD is done. Awaiting EGD order from GI.
--- NOTE | 2019-02-28 11:41 | Pulmonolgy Critical Care Note ---
Critical Care - Asmt/Plan Problems: (1) Seizure disorder (2) Endotracheally intubated (3) Septic shock (4) Sepsis (5) Sinus tachycardia (6) Lactic acid acidosis (7) High anion gap metabolic acidosis (8) STEFANI (acute kidney injury) (9) Abnormal LFTs (10) Coffee ground emesis (11) Gastrointestinal bleed (12) Altered mental status (13) Alcohol withdrawal seizure (14) Ventilator dependent Assessment/Plan: Continue ventilatory support/settings reviewed D/W Dr. Stockton, will hold extubation until after EGD SBT in am Monitor volumes, PRN lasix Off Abx per ID F/U BAL studies F/U GI recs, PPI, EGD tomorrow, ? colo Monitor counts, transfuse as needed Monitor for EtOH w/drawal, PRN ativan Continue AEDs, monitor for Sz's, F/U neuro recs FC CCT 35 Critical Care - Objective Last 24 Hour Vital Signs Date Time Temp Pulse Resp B/P (MAP) Pulse Ox O2 Delivery O2 Flow Rate FiO2 02/28/19 11:00 102 25 113/78 (90) 100 02/28/19 10:45 95 30 35 02/28/19 10:00 102 38 117/76 (90) 100 02/28/19 09:00 100 32 113/69 (84) 100 02/28/19 08:54 112/72 02/28/19 08:45 92 29 35 35 02/28/19 08:45 100 02/28/19 08:45 35 02/28/19 08:00 98.6 98 32 100/70 (80) 100 02/28/19 08:00 99 02/28/19 08:00 Mechanical Ventilator 02/28/19 07:20 97 32 35 02/28/19 07:00 100 32 100/70 (80) 100 02/28/19 06:00 95 29 100/66 (77) 100 02/28/19 05:09 93 31 35 02/28/19 05:00 90 29 109/80 (90) 100 02/28/19 04:00 98.2 89 26 99/45 (63) 100 02/28/19 04:00 Mechanical Ventilator 02/28/19 04:00 35 02/28/19 04:00 97 02/28/19 03:00 94 32 112/78 (89) 100 02/28/19 02:59 95 31 35 02/28/19 02:00 98.5 109 35 110/74 (86) 100 02/28/19 01:03 106 34 35 02/28/19 01:00 106 31 115/79 (91) 100 02/28/19 00:00 104 02/28/19 00:00 106 35 106/70 (82) 100 02/28/19 00:00 Mechanical Ventilator 02/28/19 00:00 35 02/27/19 23:00 100 35 101/67 (78) 100 02/27/19 22:38 98 32 35 02/27/19 22:30 101 111/72 02/27/19 22:00 100 33 90/63 (72) 100 02/27/19 21:13 103 33 35 02/27/19 21:00 98 31 90/63 (72) 100 02/27/19 20:00 104 02/27/19 20:00 98.5 98 26 88/54 (65) 100 02/27/19 20:00 Mechanical Ventilator 02/27/19 20:00 35 02/27/19 19:00 103 27 80/45 (57) 100 02/27/19 18:58 105 32 35 02/27/19 18:00 102 26 74/46 (55) 100 02/27/19 17:29 108 33 35 02/27/19 17:00 107 33 88/53 (65) 100 02/27/19 16:00 35 02/27/19 16:00 116 02/27/19 16:00 98.6 109 36 93/60 (71) 100 02/27/19 16:00 Mechanical Ventilator 02/27/19 15:29 112 28 35 02/27/19 15:00 119 36 71/39 (50) 97 02/27/19 14:00 111 37 93/52 (66) 92 02/27/19 13:19 110 37 35 02/27/19 13:00 114 35 104/54 (71) 94 02/27/19 12:00 116 02/27/19 12:00 35 02/27/19 12:00 Mechanical Ventilator 02/27/19 12:00 98.4 115 34 120/73 (89) 94 Status: awake Condition: improving HEENT: atraumatic, normocephalic Neck: full ROM Lungs: clear Heart: HR/BP stable Abdomen: soft, non-tender, active bowel sounds Extremities: no C/C/E Accucheck: 33 Blood Sugars: BS controlled Critical Care - Subjective ROS Limited/Unobtainable: Yes ICU Day: 14 Intubation Day: 13 Interval Events: S/P FOB Hb 7.5 Stable on vent No sig secretions Passed SBT Condition: stable IV Access: PICC EKG Rhythm: Sinus Rhythm FI02: 35 Vent Support Breath Rate: 26 Vent Support Mode: AC Vent Tidal Volume: 500 Sputum Amount: Moderate PEEP: 5.0 PIP: 32 Secretions: minimal Fluids: SLIV Drips: None Tube Feeding Amount: 40 I&O: Intake and Output 02/27/19 02/28/19 19:00 07:00 Intake Total 700.000 ml 1335 ml Output Total 1275 ml 1300 ml Balance -575.000 ml 35 ml Free Water 300 ml IV Total 540.000 ml 675 ml Tube Feeding 160 ml 360 ml Output Urine Total 1275 ml 1300 ml Subjective: Awake no complaints ET-Tube: 7.5 ET Position: 24 Labs: Laboratory Tests Test 02/27/19 15:00 02/28/19 05:00 02/28/19 07:15 02/28/19 09:15 Body Fluid Source Bronchial lavage Body Fluid Volume 25 mL Body Fluid Appearance Hazy (Clear) Body Fluid RBC 5169 /CUMM Body Fluid Total Nucleated Cells 4635 /CUMM Body Fluid Polynuclear WBCs (%) 92 % Body Fluid Mononuclear WBCs (%) 6 % Body Fluid Mesothelial Cells (%) 2 % White Blood Count 22.2 K/UL (4.8-10.8) *H Red Blood Count 2.36 M/UL (4.70-6.10) L Hemoglobin 7.5 G/DL (14.2-18.0) L Hematocrit 23.0 % (42.0-52.0) L Mean Corpuscular Volume 98 FL (80-99) Mean Corpuscular Hemoglobin 31.9 PG (27.0-31.0) H Mean Corpuscular Hemoglobin Concent 32.7 G/DL (32.0-36.0) Red Cell Distribution Width 15.4 % (11.6-14.8) H Platelet Count 440 K/UL (150-450) Mean Platelet Volume 6.4 FL (6.5-10.1) L Neutrophils (%) (Auto) % (45.0-75.0) Lymphocytes (%) (Auto) % (20.0-45.0) Monocytes (%) (Auto) % (1.0-10.0) Eosinophils (%) (Auto) % (0.0-3.0) Basophils (%) (Auto) % (0.0-2.0) Differential Total Cells Counted 100 Neutrophils % (Manual) 73 % (45-75) Lymphocytes % (Manual) 9 % (20-45) L Monocytes % (Manual) 12 % (1-10) H Eosinophils % (Manual) 0 % (0-3) Basophils % (Manual) 0 % (0-2) Band Neutrophils 6 % (0-8) Platelet Estimate Adequate Platelet Morphology Normal Hypochromasia 1+ Anisocytosis 1+ Macrocytosis 1+ Uric Acid 3.0 MG/DL (2.6-7.2) C-Reactive Protein, Quantitative 7.4 mg/dL (0.00-0.90) H Pro-B-Type Natriuretic Peptide 2134 pg/mL (0-125) H Sodium Level 142 MMOL/L (136-145) Potassium Level 4.0 MMOL/L (3.5-5.1) # Chloride Level 110 MMOL/L (98-107) H Carbon Dioxide Level 28 MMOL/L (21-32) Anion Gap 4 mmol/L (5-15) L Blood Urea Nitrogen 14 mg/dL (7-18) Creatinine 1.3 MG/DL (0.55-1.30) # Estimat Glomerular Filtration Rate > 60 mL/min (>60) Glucose Level 123 MG/DL (74-106) H Calcium Level 7.8 MG/DL (8.5-10.1) #L Phosphorus Level 3.5 MG/DL (2.5-4.9) Magnesium Level 2.5 MG/DL (1.8-2.4) H Total Bilirubin 11.1 MG/DL (0.2-1.0) H Direct Bilirubin 9.7 MG/DL (0.0-0.3) H Aspartate Amino Transf (AST/SGOT) 175 U/L (15-37) H Alanine Aminotransferase (ALT/SGPT) 60 U/L (12-78) Alkaline Phosphatase 288 U/L (46-116) H Total Protein 5.9 G/DL (6.4-8.2) L Albumin 1.3 G/DL (3.4-5.0) L Globulin 4.6 g/dL Albumin/Globulin Ratio 0.3 (1.0-2.7) L Vancomycin Level Trough 32.5 ug/mL (5.0-12.0) H Han Harris MD Feb 28, 2019 11:41
--- NOTE | 2019-02-28 12:04 | NUR ---
NURSE NOTES: SPOKE WITH THE SISTER AT THE BEDSIDE AND CONFIRMED THAT SHE HAS HIS BELONGINGS. PATIENT TOLERATED CPAP. WILL CONTINUE TO MONITOR.
--- NOTE | 2019-02-28 12:04 | Infectious Diseases Prog Note ---
Assessment/Plan Assessment/Plan ASSESSMENT AND PLAN: 1. sepsis, shock, e.coli bacteremia/uti, gram neg sepsis, pna/HCAP, ct noted, sirs, fevers, fungemia but blood cultures negative, leukocytosis worse, c.diff. negative, elevated lft's, ? cholecystitis, hida scan negative - cefepime, flagyl, vancomycin and micafungin - surveillance blood cultures negative, monitor labs and chest x-ray - icu and supportive care, on vent , off pressors - monitor lft's - improved overall but still elevated 2. History of seizures. Workup per Neurology. 3. Acute kidney injury, likely secondary to sepsis. 4. The patient is anemic. 5. Severe sepsis with leukocytosis. 6. History of ETOH abuse. 7. No known allergies. 8. Family history is noncontributory. 9. MAR was noted. 10. Case was discussed with RN. 11. Social history is positive for ETOH abuse. 12. Poor prognosis. Subjective Constitutional: Reports: fatigue, other - off pressors, more alert ; Denies: fever HEENT: Reports: congestion Respiratory: Reports: shortness of breath Gastrointestinal/Abdominal: Reports: diarrhea, other; Denies: nausea, vomiting Genitourinary: Reports: other - + delgado Neurologic: Denies: headache Psychiatric: Denies: depression Skin: Denies: rash Hematologic: Denies: bleeding Musculoskeletal: Denies: pain Allergies: Coded Allergies: No Known Allergies (Unverified , 02/10/15) Objective Vital Signs Last 24 Hour Vital Signs Date Time Temp Pulse Resp B/P (MAP) Pulse Ox O2 Delivery O2 Flow Rate FiO2 02/28/19 11:30 96 31 35 02/28/19 11:00 102 25 113/78 (90) 100 02/28/19 10:45 95 30 35 02/28/19 10:00 102 38 117/76 (90) 100 02/28/19 09:00 100 32 113/69 (84) 100 02/28/19 08:54 112/72 02/28/19 08:45 92 29 35 35 02/28/19 08:45 100 02/28/19 08:45 35 02/28/19 08:00 98.6 98 32 100/70 (80) 100 02/28/19 08:00 99 02/28/19 08:00 Mechanical Ventilator 02/28/19 07:20 97 32 35 02/28/19 07:00 100 32 100/70 (80) 100 02/28/19 06:00 95 29 100/66 (77) 100 02/28/19 05:09 93 31 35 02/28/19 05:00 90 29 109/80 (90) 100 02/28/19 04:00 98.2 89 26 99/45 (63) 100 02/28/19 04:00 Mechanical Ventilator 02/28/19 04:00 35 02/28/19 04:00 97 02/28/19 03:00 94 32 112/78 (89) 100 02/28/19 02:59 95 31 35 02/28/19 02:00 98.5 109 35 110/74 (86) 100 02/28/19 01:03 106 34 35 02/28/19 01:00 106 31 115/79 (91) 100 02/28/19 00:00 104 02/28/19 00:00 106 35 106/70 (82) 100 02/28/19 00:00 Mechanical Ventilator 02/28/19 00:00 35 02/27/19 23:00 100 35 101/67 (78) 100 02/27/19 22:38 98 32 35 02/27/19 22:30 101 111/72 02/27/19 22:00 100 33 90/63 (72) 100 02/27/19 21:13 103 33 35 02/27/19 21:00 98 31 90/63 (72) 100 02/27/19 20:00 104 02/27/19 20:00 98.5 98 26 88/54 (65) 100 02/27/19 20:00 Mechanical Ventilator 02/27/19 20:00 35 02/27/19 19:00 103 27 80/45 (57) 100 02/27/19 18:58 105 32 35 02/27/19 18:00 102 26 74/46 (55) 100 02/27/19 17:29 108 33 35 02/27/19 17:00 107 33 88/53 (65) 100 02/27/19 16:00 35 02/27/19 16:00 116 02/27/19 16:00 98.6 109 36 93/60 (71) 100 02/27/19 16:00 Mechanical Ventilator 02/27/19 15:29 112 28 35 02/27/19 15:00 119 36 71/39 (50) 97 02/27/19 14:00 111 37 93/52 (66) 92 02/27/19 13:19 110 37 35 02/27/19 13:00 114 35 104/54 (71) 94 Height (Feet): 5 Height (Inches): 5.00 Weight (Pounds): 174 General Appearance: no acute distress, other - on vent HEENT: normocephalic, atraumatic, anicteric, EOMI, no JVD, other - oral - intubated Respiratory/Chest: crackles/rales, rhonchi - bilaterally Cardiovascular: normal rate, regular rhythm Abdomen: normal bowel sounds, soft, non tender, no organomegaly Genitourinary: other - + delgado - urine clear Extremities: no cyanosis Skin: no rash Neurologic/Psychiatric: alert, responsive Lymphatic: no neck adenopathy Musculoskeletal: no effusion Objective CT abdomen and pelvis: IMPRESSION: No evidence of pulmonary embolus, aortic dissection or aneurysm. Posterior basilar consolidation suspicious for pneumonia. Correlate clinically. Trace bilateral pleural effusions. Possible enterocolitis as described above. Please correlate clinically. Mild ascites Fatty liver Cholelithiasis with wall thickening. Cholecystitis not excluded. Small right inguinal hernia containing fat Extensive breathing motion artifact limiting evaluation. Chest x-ray - 02/17/19 - Procedure: XRAY Chest 1v Indication: Dyspnea Comparison: 02/16/2019 A single view chest radiograph was obtained. Findings: Left basilar consolidation with air bronchograms demonstrated. Costophrenic angle is obscured. Heart size is normal. Tubes and lines are stable and satisfactory in position. IMPRESSION: No significant change from the previous exam Chest x-ray - 02/21/19 - Comparison: 02/17/2019 A single view chest radiograph was obtained. Findings: Diffuse groundglass opacities have increased since the previous occasion. Heart remains normal in size. There is a left pleural effusion likely present. Tubes and lines are stable. A right PICC line is present. The tip is projected over the SVC. IMPRESSION: Worsening pulmonary edema. PICC line in good position. No change otherwise Chest x-ray - 02/22/19 - Findings: Tubes and lines are satisfactory and stable. Heart size is normal and stable. Groundglass opacities noted diffusely. Bilateral basilar consolidation with air bronchograms demonstrated. A probable left pleural effusion is noted. IMPRESSION: Evidence of radiographically stable pulmonary edema which may be noncardiogenic. Basilar consolidation unchanged. Left pleural effusion Chest x-ray - 02/26/19- Technique: One view of the chest Comparison: 02/22/2019 Findings: Stable satisfactory positions of endotracheal tube, nasogastric tube, right arm PICC. There appears to be decreased pleural fluid on the left. Mild interstitial airspace congestion persists bilaterally. No new infiltrates Impression: Improved left pleural effusion, over 4 days Persistent largely unchanged bilateral interstitial and hazy airspace edema Stable tube and line positions as described 02/28/19 - Procedure: XRAY Chest 1v Indication: NG tube placement Comparison: None A single view chest radiograph was obtained. Findings: Study obtained for purposes of NG tube localization. The proximal and distal ports are within the mid to distal stomach. IMPRESSION: Nasogastric tube satisfactory in position Microbiology Date/Time Source Procedure Growth Status 02/25/19 09:15 Blood Blood Culture - Preliminary NO GROWTH AFTER 48 HOURS Resulted 02/20/19 14:00 Sputum Induced Gram Stain - Final Complete 02/20/19 14:00 Sputum Culture - Final Luciana Albicans Complete 02/22/19 23:55 Stool Clostridium difficile Toxin Assay - Final Complete 02/25/19 09:05 Indwelling Cath Urine Culture - Final NO GROWTH AFTER 48 HOURS Complete Laboratory Tests Test 02/27/19 15:00 02/28/19 05:00 02/28/19 07:15 02/28/19 09:15 Body Fluid Source Bronchial lavage Body Fluid Volume 25 mL Body Fluid Appearance Hazy (Clear) Body Fluid RBC 5169 /CUMM Body Fluid Total Nucleated Cells 4635 /CUMM Body Fluid Polynuclear WBCs (%) 92 % Body Fluid Mononuclear WBCs (%) 6 % Body Fluid Mesothelial Cells (%) 2 % White Blood Count 22.2 K/UL (4.8-10.8) *H Red Blood Count 2.36 M/UL (4.70-6.10) L Hemoglobin 7.5 G/DL (14.2-18.0) L Hematocrit 23.0 % (42.0-52.0) L Mean Corpuscular Volume 98 FL (80-99) Mean Corpuscular Hemoglobin 31.9 PG (27.0-31.0) H Mean Corpuscular Hemoglobin Concent 32.7 G/DL (32.0-36.0) Red Cell Distribution Width 15.4 % (11.6-14.8) H Platelet Count 440 K/UL (150-450) Mean Platelet Volume 6.4 FL (6.5-10.1) L Neutrophils (%) (Auto) % (45.0-75.0) Lymphocytes (%) (Auto) % (20.0-45.0) Monocytes (%) (Auto) % (1.0-10.0) Eosinophils (%) (Auto) % (0.0-3.0) Basophils (%) (Auto) % (0.0-2.0) Differential Total Cells Counted 100 Neutrophils % (Manual) 73 % (45-75) Lymphocytes % (Manual) 9 % (20-45) L Monocytes % (Manual) 12 % (1-10) H Eosinophils % (Manual) 0 % (0-3) Basophils % (Manual) 0 % (0-2) Band Neutrophils 6 % (0-8) Platelet Estimate Adequate Platelet Morphology Normal Hypochromasia 1+ Anisocytosis 1+ Macrocytosis 1+ Uric Acid 3.0 MG/DL (2.6-7.2) C-Reactive Protein, Quantitative 7.4 mg/dL (0.00-0.90) H Pro-B-Type Natriuretic Peptide 2134 pg/mL (0-125) H Sodium Level 142 MMOL/L (136-145) Potassium Level 4.0 MMOL/L (3.5-5.1) # Chloride Level 110 MMOL/L (98-107) H Carbon Dioxide Level 28 MMOL/L (21-32) Anion Gap 4 mmol/L (5-15) L Blood Urea Nitrogen 14 mg/dL (7-18) Creatinine 1.3 MG/DL (0.55-1.30) # Estimat Glomerular Filtration Rate > 60 mL/min (>60) Glucose Level 123 MG/DL (74-106) H Calcium Level 7.8 MG/DL (8.5-10.1) #L Phosphorus Level 3.5 MG/DL (2.5-4.9) Magnesium Level 2.5 MG/DL (1.8-2.4) H Total Bilirubin 11.1 MG/DL (0.2-1.0) H Direct Bilirubin 9.7 MG/DL (0.0-0.3) H Aspartate Amino Transf (AST/SGOT) 175 U/L (15-37) H Alanine Aminotransferase (ALT/SGPT) 60 U/L (12-78) Alkaline Phosphatase 288 U/L (46-116) H Total Protein 5.9 G/DL (6.4-8.2) L Albumin 1.3 G/DL (3.4-5.0) L Globulin 4.6 g/dL Albumin/Globulin Ratio 0.3 (1.0-2.7) L Vancomycin Level Trough 32.5 ug/mL (5.0-12.0) H Current Medications Medications (Trade) Dose Ordered Sig/Tonny Route PRN Reason Start Time Stop Time Status Last Admin Dose Admin Acetaminophen (Tylenol) 650 mg Q4H PRN ORAL Mild Pain (Pain Scale 1-3) 02/16/19 00:30 03/16/19 12:29 02/17/19 04:53 Acetaminophen (Tylenol) 650 mg Q4H PRN RECTAL Mild Pain (Pain Scale 1-3) 02/16/19 04:30 03/18/19 04:29 02/16/19 04:31 Cefepime HCl 2 gm/ Dextrose 55 ml @ 110 mls/hr EVERY 12 HOURS IVPB 02/25/19 11:30 03/04/19 11:29 02/28/19 08:53 Chlorhexidine Gluconate (Stephanie-Hex 2%) 1 applic DAILY@2000 TOPIC 02/19/19 20:00 03/21/19 19:59 02/27/19 20:26 Dextrose (Dextrose 50%) 25 ml Q30M PRN IV Hypoglycemia 02/15/19 22:15 03/16/19 16:14 Dextrose (Dextrose 50%) 50 ml Q30M PRN IV Hypoglycemia 02/15/19 22:15 03/16/19 16:14 02/16/19 06:32 Lactobacillus Acidophilus (Culturelle) 1 tab EVERY 12 HOURS ORAL 02/25/19 21:00 03/26/19 17:59 02/28/19 08:52 Lansoprazole (Prevacid) 30 mg EVERY 12 HOURS NG 02/25/19 21:00 03/26/19 17:59 02/28/19 08:52 Levetiracetam 100 ml @ 400 mls/hr Q12HR IVPB 02/19/19 09:00 03/21/19 08:59 02/28/19 08:53 Lorazepam (Ativan 2mg/ml 1ml) 1 mg Q4H PRN IV For Anxiety 02/25/19 11:00 03/04/19 10:59 02/27/19 14:34 Metronidazole 100 ml @ 100 mls/hr Q8HR IVPB 02/25/19 14:00 03/04/19 13:59 02/28/19 06:00 Micafungin Sodium 100 mg/Sodium Chloride 110 ml @ 110 mls/hr Q24H IVPB 02/25/19 10:30 03/04/19 10:29 02/28/19 10:40 Midodrine (Pro-Amatine) 5 mg THREE TIMES A DAY ORAL 02/27/19 18:00 03/26/19 14:59 Norepinephrine Bitartrate 8 mg/ Dextrose 508 ml @ 0 mls/hr Q24H IV 02/16/19 09:30 03/18/19 09:29 02/23/19 09:37 Ondansetron HCl (Zofran) 4 mg Q6H PRN IVP Nausea & Vomiting 02/16/19 01:00 03/16/19 12:59 02/24/19 18:50 Phenylephrine HCl 50 mg/Dextrose 250 ml @ 0 mls/hr Q24H IV 02/16/19 22:30 03/18/19 22:29 Spironolactone (Aldactone) 50 mg EVERY 12 HOURS NG 02/24/19 21:00 03/24/19 20:59 02/28/19 08:52 Thiamine HCl (Vitamin B1) 100 mg DAILY NG 02/25/19 09:00 03/27/19 08:59 02/28/19 08:54 Vancomycin HCl (Vanco rx to dose) 1 ea DAILY PRN MISC Per rx protocol 02/16/19 09:00 03/17/19 12:59 Vasopressin 100 units/Sodium Chloride 100 ml @ 0 mls/hr Q24H IV 02/16/19 08:15 03/18/19 08:14 02/16/19 08:15 Barry Plummer MD Feb 28, 2019 12:04
--- NOTE | 2019-02-28 13:00 | NUR ---
NURSE NOTES: CONSENT SIGNED BY THE SISTER FOR THE SCHEDULE PROCEDURE TOMORROW.
--- NOTE | 2019-02-28 13:12 | NUR ---
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 98.0 HR 103 RR 32 B/P 97/74 CPAP FIO2 35% PEEP 5 PS 10 WBC 22.2 H/H 7.5/23.0 ALK PHOS 288 AST 175 IS: CEFEPIME IV FLAGYL IV MICAFUNGIN IV EGD ICU STATUS
--- NOTE | 2019-02-28 13:15 | Cardiac Electrophysiology PN ---
Assessment/Plan Assessment/Plan 1. Sinus tachycardia up to 170s. No evidence of acute myocardial infarction . Due to sepsis and anemia and alcohol withdrawal. EF 60%. HR better 2. S/P Septic shock and E Coli bacteremia, on broad-spectrum IV antibiotics. 3. Troponin leak. Type 2. Repeat level 0.16 and now negative 4. Respiratory failure on the vent. Failed weaning again S/P Bronchoscopy and removal of mucus plug 5. ETOH withdrawal 6. Seizures with noncompliance. 7. Upper gi bleed. EGD held for high WBC 8. Hematuria, resolved DW RN and sister at bedside Subjective Subjective In ICU on the Vent off pressors.Had bronchoscopy by Dr Harris that showed mucus plug Objective Last 24 Hour Vital Signs Date Time Temp Pulse Resp B/P (MAP) Pulse Ox O2 Delivery O2 Flow Rate FiO2 02/28/19 12:39 97 32 35 35 02/28/19 12:09 100 02/28/19 12:00 Mechanical Ventilator 02/28/19 12:00 98.0 103 32 97/74 (82) 37 02/28/19 11:30 35 02/28/19 11:30 96 31 35 02/28/19 11:00 102 25 113/78 (90) 100 02/28/19 10:45 95 30 35 02/28/19 10:00 102 38 117/76 (90) 100 02/28/19 09:00 100 32 113/69 (84) 100 02/28/19 08:54 112/72 02/28/19 08:45 92 29 35 35 02/28/19 08:45 100 02/28/19 08:45 35 02/28/19 08:00 98.6 98 32 100/70 (80) 100 02/28/19 08:00 99 02/28/19 08:00 Mechanical Ventilator 02/28/19 07:20 97 32 35 02/28/19 07:00 100 32 100/70 (80) 100 02/28/19 06:00 95 29 100/66 (77) 100 02/28/19 05:09 93 31 35 02/28/19 05:00 90 29 109/80 (90) 100 02/28/19 04:00 98.2 89 26 99/45 (63) 100 02/28/19 04:00 Mechanical Ventilator 02/28/19 04:00 35 02/28/19 04:00 97 02/28/19 03:00 94 32 112/78 (89) 100 02/28/19 02:59 95 31 35 02/28/19 02:00 98.5 109 35 110/74 (86) 100 02/28/19 01:03 106 34 35 02/28/19 01:00 106 31 115/79 (91) 100 02/28/19 00:00 104 02/28/19 00:00 106 35 106/70 (82) 100 02/28/19 00:00 Mechanical Ventilator 02/28/19 00:00 35 02/27/19 23:00 100 35 101/67 (78) 100 02/27/19 22:38 98 32 35 02/27/19 22:30 101 111/72 02/27/19 22:00 100 33 90/63 (72) 100 02/27/19 21:13 103 33 35 02/27/19 21:00 98 31 90/63 (72) 100 02/27/19 20:00 104 02/27/19 20:00 98.5 98 26 88/54 (65) 100 02/27/19 20:00 Mechanical Ventilator 02/27/19 20:00 35 02/27/19 19:00 103 27 80/45 (57) 100 02/27/19 18:58 105 32 35 02/27/19 18:00 102 26 74/46 (55) 100 02/27/19 17:29 108 33 35 02/27/19 17:00 107 33 88/53 (65) 100 02/27/19 16:00 35 02/27/19 16:00 116 02/27/19 16:00 98.6 109 36 93/60 (71) 100 02/27/19 16:00 Mechanical Ventilator 02/27/19 15:29 112 28 35 02/27/19 15:00 119 36 71/39 (50) 97 02/27/19 14:00 111 37 93/52 (66) 92 02/27/19 13:19 110 37 35 Intake and Output 02/27/19 02/28/19 18:59 06:59 Intake Total 800.000 ml 1195 ml Output Total 1265 ml 1300 ml Balance -465.000 ml -105 ml Free Water 60 ml 300 ml IV Total 540.000 ml 575 ml Tube Feeding 200 ml 320 ml Output Urine Total 1265 ml 1300 ml Laboratory Tests Test 02/27/19 15:00 02/28/19 05:00 02/28/19 07:15 02/28/19 09:15 Body Fluid Source Bronchial lavage Body Fluid Volume 25 mL Body Fluid Appearance Hazy (Clear) Body Fluid RBC 5169 /CUMM Body Fluid Total Nucleated Cells 4635 /CUMM Body Fluid Polynuclear WBCs (%) 92 % Body Fluid Mononuclear WBCs (%) 6 % Body Fluid Mesothelial Cells (%) 2 % White Blood Count 22.2 K/UL (4.8-10.8) *H Red Blood Count 2.36 M/UL (4.70-6.10) L Hemoglobin 7.5 G/DL (14.2-18.0) L Hematocrit 23.0 % (42.0-52.0) L Mean Corpuscular Volume 98 FL (80-99) Mean Corpuscular Hemoglobin 31.9 PG (27.0-31.0) H Mean Corpuscular Hemoglobin Concent 32.7 G/DL (32.0-36.0) Red Cell Distribution Width 15.4 % (11.6-14.8) H Platelet Count 440 K/UL (150-450) Mean Platelet Volume 6.4 FL (6.5-10.1) L Neutrophils (%) (Auto) % (45.0-75.0) Lymphocytes (%) (Auto) % (20.0-45.0) Monocytes (%) (Auto) % (1.0-10.0) Eosinophils (%) (Auto) % (0.0-3.0) Basophils (%) (Auto) % (0.0-2.0) Differential Total Cells Counted 100 Neutrophils % (Manual) 73 % (45-75) Lymphocytes % (Manual) 9 % (20-45) L Monocytes % (Manual) 12 % (1-10) H Eosinophils % (Manual) 0 % (0-3) Basophils % (Manual) 0 % (0-2) Band Neutrophils 6 % (0-8) Platelet Estimate Adequate Platelet Morphology Normal Hypochromasia 1+ Anisocytosis 1+ Macrocytosis 1+ Uric Acid 3.0 MG/DL (2.6-7.2) C-Reactive Protein, Quantitative 7.4 mg/dL (0.00-0.90) H Pro-B-Type Natriuretic Peptide 2134 pg/mL (0-125) H Sodium Level 142 MMOL/L (136-145) Potassium Level 4.0 MMOL/L (3.5-5.1) # Chloride Level 110 MMOL/L (98-107) H Carbon Dioxide Level 28 MMOL/L (21-32) Anion Gap 4 mmol/L (5-15) L Blood Urea Nitrogen 14 mg/dL (7-18) Creatinine 1.3 MG/DL (0.55-1.30) # Estimat Glomerular Filtration Rate > 60 mL/min (>60) Glucose Level 123 MG/DL (74-106) H Calcium Level 7.8 MG/DL (8.5-10.1) #L Phosphorus Level 3.5 MG/DL (2.5-4.9) Magnesium Level 2.5 MG/DL (1.8-2.4) H Total Bilirubin 11.1 MG/DL (0.2-1.0) H Direct Bilirubin 9.7 MG/DL (0.0-0.3) H Aspartate Amino Transf (AST/SGOT) 175 U/L (15-37) H Alanine Aminotransferase (ALT/SGPT) 60 U/L (12-78) Alkaline Phosphatase 288 U/L (46-116) H Total Protein 5.9 G/DL (6.4-8.2) L Albumin 1.3 G/DL (3.4-5.0) L Globulin 4.6 g/dL Albumin/Globulin Ratio 0.3 (1.0-2.7) L Vancomycin Level Trough 32.5 ug/mL (5.0-12.0) H Objective HEAD AND NECK: No JVD.Orally intubated with OG tube LUNGS: Decreased breath sounds. CARDIOVASCULAR: Regular S1 and S2 with no gallop or murmur. ABDOMEN: Soft. EXTREMITIES: No pitting edema. Fidencio Trevino MD Feb 28, 2019 13:15
--- NOTE | 2019-02-28 13:51 | Urology Progress Note ---
Assessment/Plan Status: unchanged Assessment/Plan: 1. Gross hematuria history, improved. 2. Urinary retention. 3. Probable neurogenic bladder. 4. Urinary tract infection history. 5. Sepsis history. monitor clinically delgado indwelling hand irrigated and do PRN abx as ordered f/u on blood cx renal fxn stable Subjective Allergies: Coded Allergies: No Known Allergies (Unverified , 02/10/15) Subjective all noted, vent Objective Last 24 Hour Vital Signs Date Time Temp Pulse Resp B/P (MAP) Pulse Ox O2 Delivery O2 Flow Rate FiO2 02/28/19 12:39 97 32 35 35 02/28/19 12:09 100 02/28/19 12:00 Mechanical Ventilator 02/28/19 12:00 98.0 103 32 97/74 (82) 37 02/28/19 11:30 35 02/28/19 11:30 96 31 35 02/28/19 11:00 102 25 113/78 (90) 100 02/28/19 10:45 95 30 35 02/28/19 10:00 102 38 117/76 (90) 100 02/28/19 09:00 100 32 113/69 (84) 100 02/28/19 08:54 112/72 02/28/19 08:45 92 29 35 35 02/28/19 08:45 100 02/28/19 08:45 35 02/28/19 08:00 98.6 98 32 100/70 (80) 100 02/28/19 08:00 99 02/28/19 08:00 Mechanical Ventilator 02/28/19 07:20 97 32 35 02/28/19 07:00 100 32 100/70 (80) 100 02/28/19 06:00 95 29 100/66 (77) 100 02/28/19 05:09 93 31 35 02/28/19 05:00 90 29 109/80 (90) 100 02/28/19 04:00 98.2 89 26 99/45 (63) 100 02/28/19 04:00 Mechanical Ventilator 02/28/19 04:00 35 02/28/19 04:00 97 02/28/19 03:00 94 32 112/78 (89) 100 02/28/19 02:59 95 31 35 02/28/19 02:00 98.5 109 35 110/74 (86) 100 02/28/19 01:03 106 34 35 02/28/19 01:00 106 31 115/79 (91) 100 02/28/19 00:00 104 02/28/19 00:00 106 35 106/70 (82) 100 02/28/19 00:00 Mechanical Ventilator 02/28/19 00:00 35 02/27/19 23:00 100 35 101/67 (78) 100 02/27/19 22:38 98 32 35 02/27/19 22:30 101 111/72 02/27/19 22:00 100 33 90/63 (72) 100 02/27/19 21:13 103 33 35 02/27/19 21:00 98 31 90/63 (72) 100 02/27/19 20:00 104 02/27/19 20:00 98.5 98 26 88/54 (65) 100 02/27/19 20:00 Mechanical Ventilator 02/27/19 20:00 35 02/27/19 19:00 103 27 80/45 (57) 100 02/27/19 18:58 105 32 35 02/27/19 18:00 102 26 74/46 (55) 100 02/27/19 17:29 108 33 35 02/27/19 17:00 107 33 88/53 (65) 100 02/27/19 16:00 35 02/27/19 16:00 116 02/27/19 16:00 98.6 109 36 93/60 (71) 100 02/27/19 16:00 Mechanical Ventilator 02/27/19 15:29 112 28 35 02/27/19 15:00 119 36 71/39 (50) 97 02/27/19 14:00 111 37 93/52 (66) 92 Intake and Output 02/27/19 02/28/19 19:00 07:00 Intake Total 700.000 ml 1335 ml Output Total 1275 ml 1300 ml Balance -575.000 ml 35 ml Free Water 300 ml IV Total 540.000 ml 675 ml Tube Feeding 160 ml 360 ml Output Urine Total 1275 ml 1300 ml Microbiology Date/Time Source Procedure Growth Status 02/25/19 09:15 Blood Blood Culture - Preliminary NO GROWTH AFTER 48 HOURS Resulted 02/20/19 14:00 Sputum Induced Gram Stain - Final Complete 02/20/19 14:00 Sputum Culture - Final Luciana Albicans Complete 02/22/19 23:55 Stool Clostridium difficile Toxin Assay - Final Complete 02/25/19 09:05 Indwelling Cath Urine Culture - Final NO GROWTH AFTER 48 HOURS Complete Current Medications Medications (Trade) Dose Ordered Sig/Tonny Route PRN Reason Start Time Stop Time Status Last Admin Dose Admin Acetaminophen (Tylenol) 650 mg Q4H PRN ORAL Mild Pain (Pain Scale 1-3) 02/16/19 00:30 03/16/19 12:29 02/17/19 04:53 Acetaminophen (Tylenol) 650 mg Q4H PRN RECTAL Mild Pain (Pain Scale 1-3) 02/16/19 04:30 03/18/19 04:29 02/16/19 04:31 Cefepime HCl 2 gm/ Dextrose 55 ml @ 110 mls/hr EVERY 12 HOURS IVPB 02/25/19 11:30 03/04/19 11:29 02/28/19 08:53 Chlorhexidine Gluconate (Stephanie-Hex 2%) 1 applic DAILY@2000 TOPIC 02/19/19 20:00 03/21/19 19:59 02/27/19 20:26 Dextrose (Dextrose 50%) 25 ml Q30M PRN IV Hypoglycemia 02/15/19 22:15 03/16/19 16:14 Dextrose (Dextrose 50%) 50 ml Q30M PRN IV Hypoglycemia 02/15/19 22:15 03/16/19 16:14 02/16/19 06:32 Lactobacillus Acidophilus (Culturelle) 1 tab EVERY 12 HOURS ORAL 02/25/19 21:00 03/26/19 17:59 02/28/19 08:52 Lansoprazole (Prevacid) 30 mg EVERY 12 HOURS NG 02/25/19 21:00 03/26/19 17:59 02/28/19 08:52 Levetiracetam 100 ml @ 400 mls/hr Q12HR IVPB 02/19/19 09:00 03/21/19 08:59 02/28/19 08:53 Lorazepam (Ativan 2mg/ml 1ml) 1 mg Q4H PRN IV For Anxiety 02/25/19 11:00 03/04/19 10:59 02/27/19 14:34 Metronidazole 100 ml @ 100 mls/hr Q8HR IVPB 02/25/19 14:00 03/04/19 13:59 02/28/19 06:00 Micafungin Sodium 100 mg/Sodium Chloride 110 ml @ 110 mls/hr Q24H IVPB 02/25/19 10:30 03/04/19 10:29 02/28/19 10:40 Midodrine (Pro-Amatine) 5 mg THREE TIMES A DAY ORAL 02/27/19 18:00 03/26/19 14:59 Norepinephrine Bitartrate 8 mg/ Dextrose 508 ml @ 0 mls/hr Q24H IV 02/16/19 09:30 03/18/19 09:29 02/23/19 09:37 Ondansetron HCl (Zofran) 4 mg Q6H PRN IVP Nausea & Vomiting 02/16/19 01:00 03/16/19 12:59 02/24/19 18:50 Phenylephrine HCl 50 mg/Dextrose 250 ml @ 0 mls/hr Q24H IV 02/16/19 22:30 03/18/19 22:29 Spironolactone (Aldactone) 50 mg EVERY 12 HOURS NG 02/24/19 21:00 03/24/19 20:59 02/28/19 08:52 Thiamine HCl (Vitamin B1) 100 mg DAILY NG 02/25/19 09:00 03/27/19 08:59 02/28/19 08:54 Vancomycin HCl (Vanco rx to dose) 1 ea DAILY PRN MISC Per rx protocol 02/16/19 09:00 03/17/19 12:59 Vasopressin 100 units/Sodium Chloride 100 ml @ 0 mls/hr Q24H IV 02/16/19 08:15 03/18/19 08:14 02/16/19 08:15 Laboratory Tests 02/27/19 15:00: Body Fluid Source Bronchial lavage, Body Fluid Volume 25, Body Fluid Appearance Hazy, Body Fluid RBC 5169, Body Fluid Total Nucleated Cells 4635, Body Fluid Polynuclear WBCs (%) 92, Body Fluid Mononuclear WBCs (%) 6, Body Fluid Mesothelial Cells (%) 2 02/28/19 05:00: White Blood Count 22.2*H, Red Blood Count 2.36L, Hemoglobin 7.5L, Hematocrit 23.0L, Mean Corpuscular Volume 98, Mean Corpuscular Hemoglobin 31.9H, Mean Corpuscular Hemoglobin Concent 32.7, Red Cell Distribution Width 15.4H, Platelet Count 440, Mean Platelet Volume 6.4L, Neutrophils (%) (Auto) , Lymphocytes (%) (Auto) , Monocytes (%) (Auto) , Eosinophils (%) (Auto) , Basophils (%) (Auto) , Differential Total Cells Counted 100, Neutrophils % ( Manual) 73, Lymphocytes % (Manual) 9L, Monocytes % (Manual) 12H, Eosinophils % ( Manual) 0, Basophils % (Manual) 0, Band Neutrophils 6, Platelet Estimate Adequate, Platelet Morphology Normal, Hypochromasia 1+, Anisocytosis 1+, Macrocytosis 1+, Uric Acid 3.0, C-Reactive Protein, Quantitative 7.4H, Pro-B- Type Natriuretic Peptide 2134H 02/28/19 07:15: Sodium Level 142, Potassium Level 4.0#, Chloride Level 110H, Carbon Dioxide Level 28, Anion Gap 4L, Blood Urea Nitrogen 14, Creatinine 1.3#, Estimat Glomerular Filtration Rate > 60, Glucose Level 123H, Calcium Level 7.8#L, Phosphorus Level 3.5, Magnesium Level 2.5H, Total Bilirubin 11.1H, Direct Bilirubin 9.7H, Aspartate Amino Transf (AST/SGOT) 175H, Alanine Aminotransferase (ALT/SGPT) 60, Alkaline Phosphatase 288H, Total Protein 5.9L, Albumin 1.3L, Globulin 4.6, Albumin/Globulin Ratio 0.3L 02/28/19 09:15: Vancomycin Level Trough 32.5H Height (Feet): 5 Height (Inches): 5.00 Weight (Pounds): 174 Objective exam stable, urine clearing Jeremy Matta MD Feb 28, 2019 13:51
--- NOTE | 2019-02-28 14:00 | NUR ---
NURSE NOTES: PATIENT NOTED TO BE MORE RESPONSIVE. TRYING TO PULL TUBES OUT. STILL ON RESTRAINTS. SISTER SEEN AT THE BEDSIDE. TOLERATING ON CPAP PS OF 8. NO SIGNS OF DISTRESS. WILL CONTINUE TO MONITOR.
--- NOTE | 2019-02-28 14:24 | Neurology Progress Note ---
Interim History Interim History ROS Limited/Unobtainable: Yes Interim History tolerating cpap, pending extubation follows commands dw with sister Objective Physical Exam Last Vital Signs Date Time Temp Pulse Resp B/P (MAP) Pulse Ox O2 Delivery O2 Flow Rate FiO2 02/28/19 14:00 102 26 116/76 (89) 100 02/28/19 12:39 35 35 02/28/19 12:00 Mechanical Ventilator 02/28/19 12:00 98.0 Laboratory Tests Test 02/27/19 15:00 02/28/19 05:00 02/28/19 07:15 02/28/19 09:15 Body Fluid Source Bronchial lavage Body Fluid Volume 25 mL Body Fluid Appearance Hazy (Clear) Body Fluid RBC 5169 /CUMM Body Fluid Total Nucleated Cells 4635 /CUMM Body Fluid Polynuclear WBCs (%) 92 % Body Fluid Mononuclear WBCs (%) 6 % Body Fluid Mesothelial Cells (%) 2 % White Blood Count 22.2 K/UL (4.8-10.8) *H Red Blood Count 2.36 M/UL (4.70-6.10) L Hemoglobin 7.5 G/DL (14.2-18.0) L Hematocrit 23.0 % (42.0-52.0) L Mean Corpuscular Volume 98 FL (80-99) Mean Corpuscular Hemoglobin 31.9 PG (27.0-31.0) H Mean Corpuscular Hemoglobin Concent 32.7 G/DL (32.0-36.0) Red Cell Distribution Width 15.4 % (11.6-14.8) H Platelet Count 440 K/UL (150-450) Mean Platelet Volume 6.4 FL (6.5-10.1) L Neutrophils (%) (Auto) % (45.0-75.0) Lymphocytes (%) (Auto) % (20.0-45.0) Monocytes (%) (Auto) % (1.0-10.0) Eosinophils (%) (Auto) % (0.0-3.0) Basophils (%) (Auto) % (0.0-2.0) Differential Total Cells Counted 100 Neutrophils % (Manual) 73 % (45-75) Lymphocytes % (Manual) 9 % (20-45) L Monocytes % (Manual) 12 % (1-10) H Eosinophils % (Manual) 0 % (0-3) Basophils % (Manual) 0 % (0-2) Band Neutrophils 6 % (0-8) Platelet Estimate Adequate Platelet Morphology Normal Hypochromasia 1+ Anisocytosis 1+ Macrocytosis 1+ Uric Acid 3.0 MG/DL (2.6-7.2) C-Reactive Protein, Quantitative 7.4 mg/dL (0.00-0.90) H Pro-B-Type Natriuretic Peptide 2134 pg/mL (0-125) H Sodium Level 142 MMOL/L (136-145) Potassium Level 4.0 MMOL/L (3.5-5.1) # Chloride Level 110 MMOL/L (98-107) H Carbon Dioxide Level 28 MMOL/L (21-32) Anion Gap 4 mmol/L (5-15) L Blood Urea Nitrogen 14 mg/dL (7-18) Creatinine 1.3 MG/DL (0.55-1.30) # Estimat Glomerular Filtration Rate > 60 mL/min (>60) Glucose Level 123 MG/DL (74-106) H Calcium Level 7.8 MG/DL (8.5-10.1) #L Phosphorus Level 3.5 MG/DL (2.5-4.9) Magnesium Level 2.5 MG/DL (1.8-2.4) H Total Bilirubin 11.1 MG/DL (0.2-1.0) H Direct Bilirubin 9.7 MG/DL (0.0-0.3) H Aspartate Amino Transf (AST/SGOT) 175 U/L (15-37) H Alanine Aminotransferase (ALT/SGPT) 60 U/L (12-78) Alkaline Phosphatase 288 U/L (46-116) H Total Protein 5.9 G/DL (6.4-8.2) L Albumin 1.3 G/DL (3.4-5.0) L Globulin 4.6 g/dL Albumin/Globulin Ratio 0.3 (1.0-2.7) L Vancomycin Level Trough 32.5 ug/mL (5.0-12.0) H Head: normocophalic Neck: no rigidity EENT: benign Neurologic Exam Cranial Nerves III, IV, : PERRLA Motor System: no involuntary movement Objective pupils 3 mm reactive no nuchal rigidity minimal withdrawal intubated cc time 35 min Impression/Recommendations Problems: (1) Episode of confusion (2) Tachycardia (3) Fever (4) Diarrhea (5) Altered mental status (6) Alcohol withdrawal seizure (7) Oral thrush (8) Electrolyte and fluid disorder (9) Aspiration pneumonia (10) Alcohol withdrawal seizure (11) Non-compliance (12) Seizure disorder Status: unchanged Diagnostic Impression seizure due to non compliance septic shock with bacteremia broad sectrum atb sp intubation dilantin 100 mg tid Poor prognosis Myron Estrella MD Feb 28, 2019 14:24
--- NOTE | 2019-02-28 14:33 | NUR ---
*-* INSURANCE *-* UPDATED CLINICAL AD REVIEWS HAVE BEEN FAXED TO: VANESSA COREA: ANTWON P- [phone] [id number] F-[phone]..............REVIEW/CLINICAL
--- NOTE | 2019-02-28 14:48 | Nephrology Progress Note ---
Assessment/Plan Problem List: (1) STEFANI (acute kidney injury) Assessment: Cr lower (2) Septic shock (3) Electrolyte and fluid disorder (4) Abnormal LFTs Assessment: fatty liver (5) Hyperbilirubinemia Assessment - STEFANI (acute kidney injury) - Septic shock - Lactic acid acidosis - Abnormal LFTs - Gastrointestinal bleed - Alcohol withdrawal seizure Plan K and Mag and Phos supplement as needed discussed with RN PRN Albumin bolus for low bp Midodrine start feeding Hemodynamic support Pressors / Fluids as needed Aim to correct the electrolyte and acid base imbalance monitor renal parameters gastric support switch dilantin to keppra as LFTs rising per orders Subjective ROS Limited/Unobtainable: Yes Objective Objective Last 24 Hour Vital Signs Date Time Temp Pulse Resp B/P (MAP) Pulse Ox O2 Delivery O2 Flow Rate FiO2 02/28/19 14:00 102 26 116/76 (89) 100 02/28/19 13:00 104 26 116/85 (95) 100 02/28/19 12:39 97 32 35 35 02/28/19 12:09 100 02/28/19 12:00 Mechanical Ventilator 02/28/19 12:00 98.0 103 32 97/74 (82) 37 02/28/19 11:30 35 02/28/19 11:30 96 31 35 02/28/19 11:00 102 25 113/78 (90) 100 02/28/19 10:45 95 30 35 02/28/19 10:00 102 38 117/76 (90) 100 02/28/19 09:00 100 32 113/69 (84) 100 02/28/19 08:54 112/72 02/28/19 08:45 92 29 35 35 02/28/19 08:45 100 02/28/19 08:45 35 02/28/19 08:00 98.6 98 32 100/70 (80) 100 02/28/19 08:00 99 02/28/19 08:00 Mechanical Ventilator 02/28/19 07:20 97 32 35 02/28/19 07:00 100 32 100/70 (80) 100 02/28/19 06:00 95 29 100/66 (77) 100 02/28/19 05:09 93 31 35 02/28/19 05:00 90 29 109/80 (90) 100 02/28/19 04:00 98.2 89 26 99/45 (63) 100 02/28/19 04:00 Mechanical Ventilator 02/28/19 04:00 35 02/28/19 04:00 97 02/28/19 03:00 94 32 112/78 (89) 100 02/28/19 02:59 95 31 35 02/28/19 02:00 98.5 109 35 110/74 (86) 100 02/28/19 01:03 106 34 35 02/28/19 01:00 106 31 115/79 (91) 100 02/28/19 00:00 104 02/28/19 00:00 106 35 106/70 (82) 100 02/28/19 00:00 Mechanical Ventilator 02/28/19 00:00 35 02/27/19 23:00 100 35 101/67 (78) 100 02/27/19 22:38 98 32 35 02/27/19 22:30 101 111/72 02/27/19 22:00 100 33 90/63 (72) 100 02/27/19 21:13 103 33 35 02/27/19 21:00 98 31 90/63 (72) 100 02/27/19 20:00 104 02/27/19 20:00 98.5 98 26 88/54 (65) 100 02/27/19 20:00 Mechanical Ventilator 02/27/19 20:00 35 02/27/19 19:00 103 27 80/45 (57) 100 02/27/19 18:58 105 32 35 02/27/19 18:00 102 26 74/46 (55) 100 02/27/19 17:29 108 33 35 02/27/19 17:00 107 33 88/53 (65) 100 02/27/19 16:00 35 02/27/19 16:00 116 02/27/19 16:00 98.6 109 36 93/60 (71) 100 02/27/19 16:00 Mechanical Ventilator 02/27/19 15:29 112 28 35 02/27/19 15:00 119 36 71/39 (50) 97 Intake and Output 02/27/19 02/28/19 19:00 07:00 Intake Total 700.000 ml 1335 ml Output Total 1275 ml 1300 ml Balance -575.000 ml 35 ml Free Water 300 ml IV Total 540.000 ml 675 ml Tube Feeding 160 ml 360 ml Output Urine Total 1275 ml 1300 ml Laboratory Tests 02/27/19 15:00: Body Fluid Source Bronchial lavage, Body Fluid Volume 25, Body Fluid Appearance Hazy, Body Fluid RBC 5169, Body Fluid Total Nucleated Cells 4635, Body Fluid Polynuclear WBCs (%) 92, Body Fluid Mononuclear WBCs (%) 6, Body Fluid Mesothelial Cells (%) 2 02/28/19 05:00: White Blood Count 22.2*H, Red Blood Count 2.36L, Hemoglobin 7.5L, Hematocrit 23.0L, Mean Corpuscular Volume 98, Mean Corpuscular Hemoglobin 31.9H, Mean Corpuscular Hemoglobin Concent 32.7, Red Cell Distribution Width 15.4H, Platelet Count 440, Mean Platelet Volume 6.4L, Neutrophils (%) (Auto) , Lymphocytes (%) (Auto) , Monocytes (%) (Auto) , Eosinophils (%) (Auto) , Basophils (%) (Auto) , Differential Total Cells Counted 100, Neutrophils % ( Manual) 73, Lymphocytes % (Manual) 9L, Monocytes % (Manual) 12H, Eosinophils % ( Manual) 0, Basophils % (Manual) 0, Band Neutrophils 6, Platelet Estimate Adequate, Platelet Morphology Normal, Hypochromasia 1+, Anisocytosis 1+, Macrocytosis 1+, Uric Acid 3.0, C-Reactive Protein, Quantitative 7.4H, Pro-B- Type Natriuretic Peptide 2134H 02/28/19 07:15: Sodium Level 142, Potassium Level 4.0#, Chloride Level 110H, Carbon Dioxide Level 28, Anion Gap 4L, Blood Urea Nitrogen 14, Creatinine 1.3#, Estimat Glomerular Filtration Rate > 60, Glucose Level 123H, Calcium Level 7.8#L, Phosphorus Level 3.5, Magnesium Level 2.5H, Total Bilirubin 11.1H, Direct Bilirubin 9.7H, Aspartate Amino Transf (AST/SGOT) 175H, Alanine Aminotransferase (ALT/SGPT) 60, Alkaline Phosphatase 288H, Total Protein 5.9L, Albumin 1.3L, Globulin 4.6, Albumin/Globulin Ratio 0.3L 02/28/19 09:15: Vancomycin Level Trough 32.5H Height (Feet): 5 Height (Inches): 5.00 Weight (Pounds): 174 General Appearance: no apparent distress EENT: other - vented Cardiovascular: tachycardia Respiratory/Chest: decreased breath sounds Abdomen: distended Objective no change Scotty Bailon MD Feb 28, 2019 14:48
--- NOTE | 2019-02-28 16:06 | NUR ---
NURSE NOTES: STILL TOLERATING CPAP. NO SIGNS OF DISTRESS. ORAL CARE DONE. SUCTIONED AND REPOSITIONED PATIENT. WILL CONTINUE TO MONITOR.
--- NOTE | 2019-02-28 16:10 | NUR ---
NURSE NOTES: Pt is trying to reach ETT. Pt is strong enough to lift up his upper body. Reminded patient not to pull out ETT and the importance and risks of keeping ETT for now. Frequent reorientation and talk therapy given. Bilateral soft restraints tightened but roomy around wrists enough not to cause skins/tissues breakdown. O2 sat 100%. Pt is tolerating CPAP and PS 8. Will continue to monitor. Addendum: 02/28/19 at 1715 by KATHERIN ASHLEY RN RN Pt was trying to reach ETT, so continued bilateral soft wrist restraints on the patient. Reminded patient not to pull out ETT and the importance of keeping ETT and risks of removing it at 1610. Frequent reorientation and talk therapy given to patient at bedside. Bilateral soft restraints tightened but roomy around wrists enough not to cause skins/tissues breakdown. O2 sat 100%. Pt is tolerating CPAP and PS 8. Will continue to monitor.
--- NOTE | 2019-02-28 16:15 | NUR ---
RESPIRATORY NOTE: RT was called to pt's room by RN due to pt self extubating. Placed pt on 40% c/a. Pt has no s/s of distress. V/S stable. Small to moderate amount of secretions was suction from pts mouth. RN notified Dr. Meza of pt status. Will cont. to monitor pt.
--- NOTE | 2019-02-28 16:20 | NUR ---
NURSE NOTES: PATIENT PULLED OFF THE ETT. PLACED PT ON COOL AEROSOL AT 40%. SATING AT 97%, RR 33. PATIENT IS AWAKE, ALERT AND RESPONSIVE. NOTED MODERATE SECRETION FROM THE MOUTH. DR SNYDER MADE AWARE, AWAITING FOR CALL BACK. WILL CONTINUE TO MONITOR. Addendum: 02/28/19 at 1635 by CAMILO WEN RN NURSE NOTES: INSTRUCTED THE PATIENT TO DO DEEP BREATHING AND FOLLOWING COMMAND. PLACED PATIENT ON HIGH FOWLERS POSITION. NO NEW ORDER FROM DR SNYDER. WILL CONTINUE TO MONITOR. Addendum: 02/28/19 at 1641 by CAMILO WEN RN NURSE NOTES: PATIENT SELF EXTUBATED AROUND 1615.
--- NOTE | 2019-02-28 16:28 | Surgery Progress Note ---
Surgery Progress Note Subjective Procedure Performed left femoral central venous catheter insertion Additional Comments No acute events. Tolerating weaning very well. More awake and alert. Plan for EGD tomorrow and potentially extubation. Labs noted. Objective Last 24 Hour Vital Signs Date Time Temp Pulse Resp B/P (MAP) Pulse Ox O2 Delivery O2 Flow Rate FiO2 02/28/19 16:00 104 02/28/19 16:00 98.3 104 23 113/77 (89) 100 02/28/19 16:00 35 02/28/19 16:00 Mechanical Ventilator 02/28/19 15:13 103 33 35 35 02/28/19 15:00 110 36 109/74 (86) 100 02/28/19 14:00 102 26 116/76 (89) 100 02/28/19 13:00 104 26 116/85 (95) 100 02/28/19 12:39 97 32 35 35 02/28/19 12:09 100 02/28/19 12:00 Mechanical Ventilator 02/28/19 12:00 98.0 103 32 97/74 (82) 97 02/28/19 11:30 35 02/28/19 11:30 96 31 35 02/28/19 11:00 102 25 113/78 (90) 100 02/28/19 10:45 95 30 35 02/28/19 10:00 102 38 117/76 (90) 100 02/28/19 09:00 100 32 113/69 (84) 100 02/28/19 08:54 112/72 02/28/19 08:45 92 29 35 35 02/28/19 08:45 100 02/28/19 08:45 35 02/28/19 08:00 98.6 98 32 100/70 (80) 100 02/28/19 08:00 99 02/28/19 08:00 Mechanical Ventilator 02/28/19 07:20 97 32 35 02/28/19 07:00 100 32 100/70 (80) 100 02/28/19 06:00 95 29 100/66 (77) 100 02/28/19 05:09 93 31 35 02/28/19 05:00 90 29 109/80 (90) 100 02/28/19 04:00 98.2 89 26 99/45 (63) 100 02/28/19 04:00 Mechanical Ventilator 02/28/19 04:00 35 02/28/19 04:00 97 02/28/19 03:00 94 32 112/78 (89) 100 02/28/19 02:59 95 31 35 02/28/19 02:00 98.5 109 35 110/74 (86) 100 02/28/19 01:03 106 34 35 02/28/19 01:00 106 31 115/79 (91) 100 02/28/19 00:00 104 02/28/19 00:00 106 35 106/70 (82) 100 02/28/19 00:00 Mechanical Ventilator 02/28/19 00:00 35 02/27/19 23:00 100 35 101/67 (78) 100 02/27/19 22:38 98 32 35 02/27/19 22:30 101 111/72 02/27/19 22:00 100 33 90/63 (72) 100 02/27/19 21:13 103 33 35 02/27/19 21:00 98 31 90/63 (72) 100 02/27/19 20:00 104 02/27/19 20:00 98.5 98 26 88/54 (65) 100 02/27/19 20:00 Mechanical Ventilator 02/27/19 20:00 35 02/27/19 19:00 103 27 80/45 (57) 100 02/27/19 18:58 105 32 35 02/27/19 18:00 102 26 74/46 (55) 100 02/27/19 17:29 108 33 35 02/27/19 17:00 107 33 88/53 (65) 100 I&O Intake and Output 02/27/19 02/28/19 19:00 07:00 Intake Total 700.000 ml 1335 ml Output Total 1275 ml 1300 ml Balance -575.000 ml 35 ml Free Water 300 ml IV Total 540.000 ml 675 ml Tube Feeding 160 ml 360 ml Output Urine Total 1275 ml 1300 ml Cardiovascular: RSR Respiratory: decreased breath sounds Abdomen: soft, present bowel sounds, non-distended Extremities: no cyanosis Laboratory Tests Test 02/28/19 05:00 02/28/19 07:15 02/28/19 09:15 White Blood Count 22.2 K/UL (4.8-10.8) *H Red Blood Count 2.36 M/UL (4.70-6.10) L Hemoglobin 7.5 G/DL (14.2-18.0) L Hematocrit 23.0 % (42.0-52.0) L Mean Corpuscular Volume 98 FL (80-99) Mean Corpuscular Hemoglobin 31.9 PG (27.0-31.0) H Mean Corpuscular Hemoglobin Concent 32.7 G/DL (32.0-36.0) Red Cell Distribution Width 15.4 % (11.6-14.8) H Platelet Count 440 K/UL (150-450) Mean Platelet Volume 6.4 FL (6.5-10.1) L Neutrophils (%) (Auto) % (45.0-75.0) Lymphocytes (%) (Auto) % (20.0-45.0) Monocytes (%) (Auto) % (1.0-10.0) Eosinophils (%) (Auto) % (0.0-3.0) Basophils (%) (Auto) % (0.0-2.0) Differential Total Cells Counted 100 Neutrophils % (Manual) 73 % (45-75) Lymphocytes % (Manual) 9 % (20-45) L Monocytes % (Manual) 12 % (1-10) H Eosinophils % (Manual) 0 % (0-3) Basophils % (Manual) 0 % (0-2) Band Neutrophils 6 % (0-8) Platelet Estimate Adequate Platelet Morphology Normal Hypochromasia 1+ Anisocytosis 1+ Macrocytosis 1+ Uric Acid 3.0 MG/DL (2.6-7.2) C-Reactive Protein, Quantitative 7.4 mg/dL (0.00-0.90) H Pro-B-Type Natriuretic Peptide 2134 pg/mL (0-125) H Sodium Level 142 MMOL/L (136-145) Potassium Level 4.0 MMOL/L (3.5-5.1) # Chloride Level 110 MMOL/L (98-107) H Carbon Dioxide Level 28 MMOL/L (21-32) Anion Gap 4 mmol/L (5-15) L Blood Urea Nitrogen 14 mg/dL (7-18) Creatinine 1.3 MG/DL (0.55-1.30) # Estimat Glomerular Filtration Rate > 60 mL/min (>60) Glucose Level 123 MG/DL (74-106) H Calcium Level 7.8 MG/DL (8.5-10.1) #L Phosphorus Level 3.5 MG/DL (2.5-4.9) Magnesium Level 2.5 MG/DL (1.8-2.4) H Total Bilirubin 11.1 MG/DL (0.2-1.0) H Direct Bilirubin 9.7 MG/DL (0.0-0.3) H Aspartate Amino Transf (AST/SGOT) 175 U/L (15-37) H Alanine Aminotransferase (ALT/SGPT) 60 U/L (12-78) Alkaline Phosphatase 288 U/L (46-116) H Total Protein 5.9 G/DL (6.4-8.2) L Albumin 1.3 G/DL (3.4-5.0) L Globulin 4.6 g/dL Albumin/Globulin Ratio 0.3 (1.0-2.7) L Vancomycin Level Trough 32.5 ug/mL (5.0-12.0) H Plan Problems: (1) Non-compliance Assessment & Plan: Noncompliance with seizure medication with known history of seizures Now had seizure Appreciate neurology input (2) Electrolyte and fluid disorder Assessment & Plan: Likely due to EtOH use and dehydration IV hydration Trend labs (3) Fever (4) Oral thrush (5) Diarrhea (6) Aspiration pneumonia (7) Seizure disorder (8) Tachycardia (9) Altered mental status (10) Alcohol withdrawal seizure (11) Alcohol withdrawal seizure (12) Episode of confusion (13) Coffee ground emesis (14) Gastrointestinal bleed Assessment & Plan: Patient on admission identified to have maroon-colored stool and coffee-ground emesis. Labs noted mild anemia with H&H trending down. No acute active bleed noted but given patient's history high risk for potential ulcers. PPI Appreciate GI input considerations for EGD once stable No evidence of pulmonary embolus, aortic dissection or aneurysm. Posterior basilar consolidation suspicious for pneumonia. Correlate clinically. Trace bilateral pleural effusions. Possible enterocolitis as described above. Please correlate clinically. Mild ascites Fatty liver Cholelithiasis with wall thickening. Cholecystitis not excluded. Small right inguinal hernia containing fat Extensive breathing motion artifact limiting evaluation. We will follow with recommendations thank you (15) Sinus tachycardia (16) Septic shock (17) Sepsis Assessment & Plan: Patient septic leukocytosis improved today lactic acidosis improving anemia renal function declining electrolyte disturbance US noted on pressors now but weaning on IV abx intubated on vent support cont with aggressive resuscitation US noted again. liver decompensated HIDA noted and likely cirrhosis delgado AM labs reordered (18) Lactic acid acidosis (19) STEFANI (acute kidney injury) (20) Abnormal LFTs (21) High anion gap metabolic acidosis Juanpablo Marcus Feb 28, 2019 16:28
--- NOTE | 2019-02-28 18:34 | NUR ---
NURSE NOTES: PATIENT KEPT CLEAN AND DRY. STILL ON COOL AEROSOL AT 40%, SATING AT 100%. ORAL CARE DONE. NOTED SACRAL REDNESS MOISTURE RELATED. VSS. NO SIGNS OF DISTRESS OF THE MOMENT. WILL CONTINUE TO MONITOR.
--- NOTE | 2019-02-28 18:46 | NUR ---
NURSE NOTES: DR ROWAN MADE AWARE OF H/H AND THAT PT IS FOR PROCEDURE TOMORROW. ORDERED TO GIVE 1 "U" OF PRBC NOW. WILL CONTINUE TO MONITOR.
--- NOTE | 2019-02-28 18:54 | NUR ---
NURSE NOTES: Updated sister, Josee, that pt was extubated and will get blood transfusion as per order.
--- NOTE | 2019-02-28 19:21 | NUR ---
HAND-OFF: Report given to Yosef Castandea RN. Still awaiting for the blood to be ready. Sister was updated of the status of the pt.
--- NOTE | 2019-02-28 19:30 | NUR ---
NURSE NOTES:Received pt just newly self extubate, was on 40% cool aerosol mist, 02 sat 100%, now just placed on 02 at 2L/NC, 02 sat still 100%, suctioned tk whitish beige secretions moderate in amt. HOB kept elevated, watch for any resp. distress. SR-ST low 100s, Bp stable, afebrile, pt appeared sleepy but easily arousable to verbal stimuli, Bilateral soft wrist restrained on for safety to avoid pulling out therapeutic devices. Siderails up x3, , call light within reach, placed on fall precaution. Aguilar to gravity with moderate amt of eneida yellow urine, NPO at this time, oral care done. Rectal tube to gravity with moderate amt of brownish geenish stool.Will continue to monitor.
[2019-02-28] MEDS: Dyna-Hex 2% Top Sol 2oz TOPIC SCH (19:57)
--- NOTE | 2019-02-28 20:03 | General Progress Note ---
Assessment/Plan Status: unchanged Assessment/Plan: 54 year old male with pMH of seizure disorder and etoh abuse admitted for seizures 2/2 non-compliance # Transaminitis - f/u HIDA : non obstructive, findings c/w intracellular damage - ctm - appreciate GI and Sx input - us shows nodularity and chronic disease - hep panel negative - ggt increased - f/u GI # Hemoptysis - s/p bronch 02/27 with Therapeutic aspiration and mucus plug from the endotracheal tube in right upper lobe., - monitor ett output - monitor hgb #severe septic shock likely 2/2 UTI #Gram negative bacteremia, now resolved by surveillance follow up blood culture #Acute respiratory failure requiting intubation -Vanc and Zosyn - gentamicin - Fluconazole per ID - Re culture ordered due to severe increase in the WBC from 15 to 26 to 29 thousand of unclear etiology - Hematology consult noted to be due to sepsis. - CBC serial. - CT 02/18 with atelectasis primarily - Diuresis started and good response -ID consult appreciated - Immunoglobulin and hepatitis panel negative. -cont ICU care -intubated and mild sedation. He follows commands well. FAILED weaning trial. -vent management per pulmonary -Titrate pressors to goal map >65 -abg prn - Reviewed CT chest/abd/pel #Lactic acidosis -2/2 severe shock/ poss abd source/ seizures - 2 D Echo on 02/16 with EF 65%. Discussed with cardiology and etiology likely sepsis and not cardiogenic -CTM -Fluid boluses completed. -Cont mIVF #Coagulopathy # Thrombocytopenia - 40,000 stable Monitor. No active bleeding toay. - Hematology consult with Dr. Johnston appreciated. Flow cytometry pending. -likely 2/2 hepatic injury 2/2 shock - Consumption coagulopathy. - Consider platelet transfusion if LESS than 30K with urine blood tinge color. #Coffee ground emesis likely in setting of GI bleed -H/H trending down. Monitor -GI consult appreciated -Plan for EGD once stable. Cancelled until the patient is hemodynamically more stable, OFF pressors transition and now back on low dose LEVOPHED 3 mcg - -surgery consult appreciated #Seizures 2/2 noncomplaint with AED -s/p phenytoin load in ED -Cont Phenytoin -Neurology consult appreciated -pending EEG - no seizures noted in last 24 hours -Ativan PRN for seizures -NPO -Seizure precautions #Hypokalemia - Replete as needed #hypophosphatemia - Repleted. #Hypomagnesemia -repleted -CTM # Urethral hemorrhage and clot evacuation - Discussed with Dr. Matta over the phone and bleeding stopped spontaneously, No formal urology consult for now in place. - If recurrent hemorrhage will address. - H/H and INR stat today. - Consider PRBC and Platelets if Hb < 8 or Plt < 30 K # Urinary retention PVR > 300 cc WILKINSON replaced 02/[address] ( in case of repeat hemorrhage ) D/w RN Code: Full Subjective Allergies: Coded Allergies: No Known Allergies (Unverified , 02/10/15) Subjective Pt remains intubated and sedated, s/p bronch 02/27 with Therapeutic aspiration and mucus plug from the endotracheal tube in right upper lobe., Objective Last 24 Hour Vital Signs Date Time Temp Pulse Resp B/P (MAP) Pulse Ox O2 Delivery O2 Flow Rate FiO2 02/28/19 19:27 100 Nasal Cannula 2.0 28 02/28/19 19:00 101 25 105/72 (83) 100 02/28/19 18:00 106 28 111/79 (90) 99 02/28/19 17:00 106 28 101/68 (79) 100 02/28/19 16:20 Venturi Mask 02/28/19 16:15 Venturi Mask 12.0 40 02/28/19 16:15 98 Cool Aerosol 12.0 40 02/28/19 16:15 40 02/28/19 16:00 104 02/28/19 16:00 98.3 104 23 113/77 (89) 100 02/28/19 16:00 35 02/28/19 16:00 Mechanical Ventilator 02/28/19 15:13 103 33 35 35 02/28/19 15:00 110 36 109/74 (86) 100 02/28/19 14:00 102 26 116/76 (89) 100 02/28/19 13:00 104 26 116/85 (95) 100 02/28/19 12:39 97 32 35 35 02/28/19 12:09 100 02/28/19 12:00 Mechanical Ventilator 02/28/19 12:00 98.0 103 32 97/74 (82) 97 02/28/19 11:30 35 02/28/19 11:30 96 31 35 02/28/19 11:00 102 25 113/78 (90) 100 02/28/19 10:45 95 30 35 02/28/19 10:00 102 38 117/76 (90) 100 02/28/19 09:00 100 32 113/69 (84) 100 02/28/19 08:54 112/72 02/28/19 08:45 92 29 35 35 02/28/19 08:45 100 02/28/19 08:45 35 02/28/19 08:00 98.6 98 32 100/70 (80) 100 02/28/19 08:00 99 02/28/19 08:00 Mechanical Ventilator 02/28/19 07:20 97 32 35 02/28/19 07:00 100 32 100/70 (80) 100 02/28/19 06:00 95 29 100/66 (77) 100 02/28/19 05:09 93 31 35 02/28/19 05:00 90 29 109/80 (90) 100 02/28/19 04:00 98.2 89 26 99/45 (63) 100 02/28/19 04:00 Mechanical Ventilator 02/28/19 04:00 35 02/28/19 04:00 97 02/28/19 03:00 94 32 112/78 (89) 100 02/28/19 02:59 95 31 35 02/28/19 02:00 98.5 109 35 110/74 (86) 100 02/28/19 01:03 106 34 35 02/28/19 01:00 106 31 115/79 (91) 100 02/28/19 00:00 104 02/28/19 00:00 106 35 106/70 (82) 100 02/28/19 00:00 Mechanical Ventilator 02/28/19 00:00 35 02/27/19 23:00 100 35 101/67 (78) 100 02/27/19 22:38 98 32 35 02/27/19 22:30 101 111/72 02/27/19 22:00 100 33 90/63 (72) 100 02/27/19 21:13 103 33 35 02/27/19 21:00 98 31 90/63 (72) 100 Intake and Output 02/27/19 02/28/19 19:00 07:00 Intake Total 700.000 ml 1335 ml Output Total 1275 ml 1300 ml Balance -575.000 ml 35 ml Free Water 300 ml IV Total 540.000 ml 675 ml Tube Feeding 160 ml 360 ml Output Urine Total 1275 ml 1300 ml Laboratory Tests 02/28/19 05:00: White Blood Count 22.2*H, Red Blood Count 2.36L, Hemoglobin 7.5L, Hematocrit 23.0L, Mean Corpuscular Volume 98, Mean Corpuscular Hemoglobin 31.9H, Mean Corpuscular Hemoglobin Concent 32.7, Red Cell Distribution Width 15.4H, Platelet Count 440, Mean Platelet Volume 6.4L, Neutrophils (%) (Auto) , Lymphocytes (%) (Auto) , Monocytes (%) (Auto) , Eosinophils (%) (Auto) , Basophils (%) (Auto) , Differential Total Cells Counted 100, Neutrophils % ( Manual) 73, Lymphocytes % (Manual) 9L, Monocytes % (Manual) 12H, Eosinophils % ( Manual) 0, Basophils % (Manual) 0, Band Neutrophils 6, Platelet Estimate Adequate, Platelet Morphology Normal, Hypochromasia 1+, Anisocytosis 1+, Macrocytosis 1+, Uric Acid 3.0, C-Reactive Protein, Quantitative 7.4H, Pro-B- Type Natriuretic Peptide 2134H 02/28/19 07:15: Sodium Level 142, Potassium Level 4.0#, Chloride Level 110H, Carbon Dioxide Level 28, Anion Gap 4L, Blood Urea Nitrogen 14, Creatinine 1.3#, Estimat Glomerular Filtration Rate > 60, Glucose Level 123H, Calcium Level 7.8#L, Phosphorus Level 3.5, Magnesium Level 2.5H, Total Bilirubin 11.1H, Direct Bilirubin 9.7H, Aspartate Amino Transf (AST/SGOT) 175H, Alanine Aminotransferase (ALT/SGPT) 60, Alkaline Phosphatase 288H, Total Protein 5.9L, Albumin 1.3L, Globulin 4.6, Albumin/Globulin Ratio 0.3L 02/28/19 09:15: Vancomycin Level Trough 32.5H Height (Feet): 5 Height (Inches): 5.00 Weight (Pounds): 174 Objective General appearance: intubated and sedated Head: Normocephalic, without obvious abnormality, atraumatic Eyes: conjunctivae/corneas clear. PERRL, EOM's intact. Fundi benign Throat: Lips, mucosa, and tongue normal. Teeth and gums normal Neck: supple, symmetrical, trachea midline, no adenopathy, thyroid: not enlarged, symmetric, no tenderness/mass/nodules, no carotid bruit and no JVD Lungs: intubated, b/l air entry, no wheezing noted Heart: regular rate and rhythm, S1, S2 normal, no murmur, click, rub or gallop Abdomen: soft, non-tender. Bowel sounds normal. No masses, no organomegaly Extremities: extremities normal, atraumatic, no cyanosis or edema Pulses: 2+ and symmetric Skin: Skin color, texture, turgor normal. No rashes or lesions Neurologic: Grossly normal Lyn Cuevas MD Feb 28, 2019 20:03
--- NOTE | 2019-02-28 21:40 | NUR ---
NURSE NOTES: Transfused 1 unit PRBC unit no.[id number] o+. watch for any blood transfusion reactions
--- NOTE | 2019-02-28 22:00 | NUR ---
NURSE NOTES:Suctioned tk light beige secretions from Mouth.
[2019-02-28] MEDS: Phenylephrine 50 MG in D5W 245 ML IV SCH (22:30)
[2019-03-01] VITALS (25 sets, daily range): BP systolic 103–116; BP diastolic 67–81
--- NOTE | 2019-03-01 | NUR ---
NURSE NOTES:1 unit pRBC was finished, no reactions noted.
--- NOTE | 2019-03-01 02:00 | NUR ---
NURSE NOTES:No resp. distress with 02 at 2L/NC. 02 sat >95%
--- NOTE | 2019-03-01 03:30 | NUR ---
HAND-OFF: Report given to Wisam for continuity of care.
--- NOTE | 2019-03-01 03:30 | NUR ---
NURSE NOTES: Pt report received from [facility]. Pt appears to be stable resting in bed, alert and oriented times 1, pt pupils are round and reactive to light and accommodating bilaterally. pt is on 2L NC and able to sat at 99%, no signs symptoms of acute resp distress noted. pt is on a rn cardiac rehab, showing NSR, no signs symptoms of acute cardiac distress noted. pt has a R upper arm PICC line able to flush, no complications noted. bed locked and low, armed, bed rails up times 3. will continue plan of care.
[2019-03-01 05:20] LABS: BASOPHILS % (AUTO) 1.9 % (0.0-2.0); EOSINOPHILS % (AUTO) 2.3 % (0.0-3.0); HEMATOCRIT 27.8 % (42.0-52.0); MEAN CORPUSCULAR VOLUME 95 FL (80-99); MONOCYTES % (AUTO) 16.8 % (1.0-10.0); PLATELET COUNT 417 K/UL (150-450); RED BLOOD COUNT 2.91 M/UL (4.70-6.10); RED CELL DISTRIBUTION WIDTH 15.9 % (11.6-14.8); WHITE BLOOD COUNT 17.7 K/UL (4.8-10.8)
[2019-03-01 05:39] LABS: INR 1.5 (0.9-1.1)
[2019-03-01 06:02] LABS: ANION GAP 9 mmol/L (5-15); BLOOD UREA NITROGEN 20 mg/dL (7-18); CARBON DIOXIDE 25 MMOL/L (21-32); CHLORIDE 112 MMOL/L (98-107); CREATININE 1.8 MG/DL (0.55-1.30); PHOSPHORUS 3.8 MG/DL (2.5-4.9); POTASSIUM 3.5 MMOL/L (3.5-5.1); SODIUM 146 MMOL/L (136-145)
[2019-03-01 06:35] LABS: ALANINE AMINOTRANSFERASE 55 U/L (12-78); ALBUMIN 1.3 G/DL (3.4-5.0); ALKALINE PHOSPHATASE 281 U/L (46-116); ASPARTATE AMINO TRANSFERASE 158 U/L (15-37); BILIRUBIN,DIRECT 9.2 MG/DL (0.0-0.3); BILIRUBIN,TOTAL 11.2 MG/DL (0.2-1.0)
--- NOTE | 2019-03-01 07:33 | NUR ---
HAND-OFF: Report given to Laura LONG TERM. Pt is in stable condition.
--- NOTE | 2019-03-01 07:35 | NUR ---
NURSE NOTES: Received change of shift report from [facility]. Pt is asleep, awakens to name/voice, oriented x1 to name, drowsy/confused. Received pt on 3L of oxygen via nasal cannula with O2sat at 96-99% with bilateral mild rhonchi/rales upon auscultation. front desk monitor displays NSR to ST with heart heart fluctuating from upper 90's to 104. Bounding radial and weak peripheral pulses palpated, with trace edema noted on lower extremities. Per report, pt self extubated and pulled out OG tube last night. Per order pt has been NPO/hold tube feeding since midnight for plan/EGD this afternoon. Central line IV access is present on right upper arm, double lumen PICC, currently TKO, patent/intact. Abdomen is large, round, soft, nontender to touch with hypoactive bowel sounds in all quadrants. Aguilar catheter is in place, draining dark yellow urine. Rectal tube in place, draining liquid brown stool. Pt has bilateral soft wrist restraints to prevent self harm, as he is attempting to pull out IV line and get out of bed. Skin at restraint site is within normal limits. Bilateral SCDS are present on lower extremities for DVT prophylaxis per order. Bed is locked with three side rails up, in lowest position, head of bed in semi-lemus's and call light within reach. Will continue to monitor pt and follow plan of care per MD orders and protocol.
[2019-03-01] MEDS: Vasopressin 100 UNITS in NS 95 ML IV SCH (07:42)
--- NOTE | 2019-03-01 08:14 | Urology Progress Note ---
Assessment/Plan Status: unchanged Assessment/Plan: 1. Gross hematuria history, improved. 2. Urinary retention. 3. Probable neurogenic bladder. 4. Urinary tract infection history. 5. Sepsis history. monitor clinically delgado indwelling hand irrigated and do PRN abx as ordered f/u on blood cx renal fxn stable Subjective Allergies: Coded Allergies: No Known Allergies (Unverified , 02/10/15) Subjective all noted, pt self extubated yest Objective Last 24 Hour Vital Signs Date Time Temp Pulse Resp B/P (MAP) Pulse Ox O2 Delivery O2 Flow Rate FiO2 03/01/19 08:00 107 21 110/70 (83) 99 03/01/19 07:00 100 31 114/77 (89) 99 03/01/19 06:00 106 20 114/77 (89) 99 03/01/19 05:00 103 20 103/73 (83) 99 03/01/19 04:00 Nasal Cannula 3.0 Nasal Cannula 3.0 03/01/19 04:00 103 03/01/19 04:00 98.3 82 20 113/78 (90) 97 03/01/19 03:00 99 28 109/74 (86) 97 03/01/19 02:00 96 32 113/74 (87) 97 03/01/19 01:00 95 31 108/76 (87) 97 03/01/19 00:00 98.4 93 28 111/79 (90) 98 03/01/19 00:00 93 03/01/19 00:00 Nasal Cannula 3.0 Nasal Cannula 3.0 02/28/19 23:00 93 28 112/78 (89) 100 02/28/19 22:30 93 111/79 02/28/19 22:00 97 31 114/75 (88) 97 02/28/19 21:00 100 30 110/70 (83) 97 02/28/19 20:00 Nasal Cannula 3.0 Nasal Cannula 3.0 02/28/19 20:00 99.2 96 28 111/72 (85) 100 02/28/19 20:00 96 02/28/19 19:27 100 Nasal Cannula 2.0 28 02/28/19 19:00 101 25 105/72 (83) 100 02/28/19 18:00 106 28 111/79 (90) 99 02/28/19 17:00 106 28 101/68 (79) 100 02/28/19 16:20 Venturi Mask 02/28/19 16:15 Venturi Mask 12.0 40 02/28/19 16:15 98 Cool Aerosol 12.0 40 02/28/19 16:15 40 02/28/19 16:00 104 02/28/19 16:00 98.3 104 23 113/77 (89) 100 02/28/19 16:00 35 02/28/19 16:00 Mechanical Ventilator 02/28/19 15:13 103 33 35 35 02/28/19 15:00 110 36 109/74 (86) 100 02/28/19 14:00 102 26 116/76 (89) 100 02/28/19 13:00 104 26 116/85 (95) 100 02/28/19 12:39 97 32 35 35 02/28/19 12:09 100 02/28/19 12:00 Mechanical Ventilator 02/28/19 12:00 98.0 103 32 97/74 (82) 97 02/28/19 11:30 35 02/28/19 11:30 96 31 35 02/28/19 11:00 102 25 113/78 (90) 100 02/28/19 10:45 95 30 35 02/28/19 10:00 102 38 117/76 (90) 100 02/28/19 09:00 100 32 113/69 (84) 100 02/28/19 08:54 112/72 02/28/19 08:45 92 29 35 35 02/28/19 08:45 100 02/28/19 08:45 35 Intake and Output 02/28/19 03/01/19 19:00 07:00 Intake Total 1130 ml 655 ml Output Total 1200 ml 1200 ml Balance -70 ml -545 ml Free Water 50 ml IV Total 720 ml 355 ml Tube Feeding 360 ml 0 ml Blood Product 300 ml Output Urine Total 1200 ml 1100 ml Stool Total 100 ml # Bowel Movements 100 Microbiology Date/Time Source Procedure Growth Status 02/25/19 09:15 Blood Blood Culture - Preliminary NO GROWTH AFTER 72 HOURS Resulted 02/20/19 14:00 Sputum Induced Gram Stain - Final Complete 02/20/19 14:00 Sputum Culture - Final Luciana Albicans Complete 02/22/19 23:55 Stool Clostridium difficile Toxin Assay - Final Complete 02/25/19 09:05 Indwelling Cath Urine Culture - Final NO GROWTH AFTER 48 HOURS Complete Current Medications Medications (Trade) Dose Ordered Sig/Tonny Route PRN Reason Start Time Stop Time Status Last Admin Dose Admin Acetaminophen (Tylenol) 650 mg Q4H PRN ORAL Mild Pain (Pain Scale 1-3) 02/16/19 00:30 03/16/19 12:29 02/17/19 04:53 Acetaminophen (Tylenol) 650 mg Q4H PRN RECTAL Mild Pain (Pain Scale 1-3) 02/16/19 04:30 03/18/19 04:29 02/16/19 04:31 Cefepime HCl 2 gm/ Dextrose 55 ml @ 110 mls/hr EVERY 12 HOURS IVPB 02/25/19 11:30 03/04/19 11:29 02/28/19 21:15 Chlorhexidine Gluconate (Stephanie-Hex 2%) 1 applic DAILY@2000 TOPIC 02/19/19 20:00 03/21/19 19:59 02/28/19 19:57 Dextrose (Dextrose 50%) 25 ml Q30M PRN IV Hypoglycemia 02/15/19 22:15 03/16/19 16:14 Dextrose (Dextrose 50%) 50 ml Q30M PRN IV Hypoglycemia 02/15/19 22:15 03/16/19 16:14 02/16/19 06:32 Lactobacillus Acidophilus (Culturelle) 1 tab EVERY 12 HOURS ORAL 02/25/19 21:00 03/26/19 17:59 02/28/19 08:52 Lansoprazole (Prevacid) 30 mg EVERY 12 HOURS NG 02/25/19 21:00 03/26/19 17:59 02/28/19 08:52 Levetiracetam 100 ml @ 400 mls/hr Q12HR IVPB 02/19/19 09:00 03/21/19 08:59 02/28/19 21:15 Lorazepam (Ativan 2mg/ml 1ml) 1 mg Q4H PRN IV For Anxiety 02/25/19 11:00 03/04/19 10:59 02/27/19 14:34 Metronidazole 100 ml @ 100 mls/hr Q8HR IVPB 02/25/19 14:00 03/04/19 13:59 03/01/19 05:34 Micafungin Sodium 100 mg/Sodium Chloride 110 ml @ 110 mls/hr Q24H IVPB 02/25/19 10:30 03/04/19 10:29 02/28/19 10:40 Midodrine (Pro-Amatine) 5 mg THREE TIMES A DAY ORAL 02/27/19 18:00 03/26/19 14:59 Norepinephrine Bitartrate 8 mg/ Dextrose 508 ml @ 0 mls/hr Q24H IV 02/16/19 09:30 03/18/19 09:29 02/23/19 09:37 Ondansetron HCl (Zofran) 4 mg Q6H PRN IVP Nausea & Vomiting 02/16/19 01:00 03/16/19 12:59 02/24/19 18:50 Phenylephrine HCl 50 mg/Dextrose 250 ml @ 0 mls/hr Q24H IV 02/16/19 22:30 03/18/19 22:29 Spironolactone (Aldactone) 50 mg EVERY 12 HOURS NG 02/24/19 21:00 03/24/19 20:59 02/28/19 08:52 Thiamine HCl (Vitamin B1) 100 mg DAILY NG 02/25/19 09:00 03/27/19 08:59 02/28/19 08:54 Vancomycin HCl (Vanco rx to dose) 1 ea DAILY PRN MISC Per rx protocol 02/16/19 09:00 03/17/19 12:59 Vasopressin 100 units/Sodium Chloride 100 ml @ 0 mls/hr Q24H IV 02/16/19 08:15 03/18/19 08:14 02/16/19 08:15 Laboratory Tests 02/28/19 09:15: Vancomycin Level Trough 32.5H 03/01/19 04:30: White Blood Count 17.7H, Red Blood Count 2.91L, Hemoglobin 9.0L, Hematocrit 27.8L, Mean Corpuscular Volume 95, Mean Corpuscular Hemoglobin 31.0, Mean Corpuscular Hemoglobin Concent 32.5, Red Cell Distribution Width 15.9H, Platelet Count 417, Mean Platelet Volume 6.0L, Neutrophils (%) (Auto) 69.0, Lymphocytes (%) (Auto) 10.0L, Monocytes (%) (Auto) 16.8H, Eosinophils (%) (Auto ) 2.3, Basophils (%) (Auto) 1.9, Prothrombin Time 16.1H, Prothromb Time International Ratio 1.5H, Activated Partial Thromboplast Time 39H, Sodium Level 146H, Potassium Level 3.5, Chloride Level 112H, Carbon Dioxide Level 25, Anion Gap 9, Blood Urea Nitrogen 20H, Creatinine 1.8H, Estimat Glomerular Filtration Rate 47.8, Glucose Level 90, Uric Acid 4.0, Calcium Level 8.0L, Phosphorus Level 3.8, Magnesium Level 2.1, Total Bilirubin 11.2H, Direct Bilirubin 9.2H, Gamma Glutamyl Transpeptidase 586H, Aspartate Amino Transf (AST/SGOT) 158H, Alanine Aminotransferase (ALT/SGPT) 55, Alkaline Phosphatase 281H, C-Reactive Protein, Quantitative 7.0H, Pro-B-Type Natriuretic Peptide 1723H, Total Protein 6.1L, Albumin 1.3L, Random Vancomycin Level 25.3 Height (Feet): 5 Height (Inches): 5.00 Weight (Pounds): 174 Objective exam stable, urine clearing Jeremy Matta MD Mar 01, 2019 08:14
[2019-03-01] MEDS: levETIRAcetam 500mg/NS100ml 100 ML IVPB SCH ×2 (08:41→21:41)
[2019-03-01] MEDS: Cefepime HCl 2 GM in D5W 55 ML IVPB SCH (08:42)
--- NOTE | 2019-03-01 08:51 | Pulmonolgy Critical Care Note ---
Critical Care - Asmt/Plan Problems: (1) Seizure disorder (2) Endotracheally intubated (3) Septic shock (4) Sepsis (5) Sinus tachycardia (6) Lactic acid acidosis (7) High anion gap metabolic acidosis (8) STEFANI (acute kidney injury) (9) Abnormal LFTs (10) Coffee ground emesis (11) Gastrointestinal bleed (12) Altered mental status (13) Alcohol withdrawal seizure (14) Ventilator dependent Assessment/Plan: Optimize pulmonary hygiene/mobilize as tolerated PRN O2 CXR ABG EGD today Monitor volumes and renal function, PRN lasix Abx per ID F/U BAL studies PPI Monitor counts, transfuse as needed Monitor for EtOH w/drawal, PRN ativan Continue AEDs, monitor for Sz's, F/U neuro recs FC CCT 35 Critical Care - Objective Last 24 Hour Vital Signs Date Time Temp Pulse Resp B/P (MAP) Pulse Ox O2 Delivery O2 Flow Rate FiO2 03/01/19 08:00 98.8 107 21 110/70 (83) 99 03/01/19 07:00 100 31 114/77 (89) 99 03/01/19 06:00 106 20 114/77 (89) 99 03/01/19 05:00 103 20 103/73 (83) 99 03/01/19 04:00 Nasal Cannula 3.0 Nasal Cannula 3.0 03/01/19 04:00 103 03/01/19 04:00 98.3 82 20 113/78 (90) 97 03/01/19 03:00 99 28 109/74 (86) 97 03/01/19 02:00 96 32 113/74 (87) 97 03/01/19 01:00 95 31 108/76 (87) 97 03/01/19 00:00 98.4 93 28 111/79 (90) 98 03/01/19 00:00 93 03/01/19 00:00 Nasal Cannula 3.0 Nasal Cannula 3.0 02/28/19 23:00 93 28 112/78 (89) 100 02/28/19 22:30 93 111/79 02/28/19 22:00 97 31 114/75 (88) 97 02/28/19 21:00 100 30 110/70 (83) 97 02/28/19 20:00 Nasal Cannula 3.0 Nasal Cannula 3.0 02/28/19 20:00 99.2 96 28 111/72 (85) 100 02/28/19 20:00 96 02/28/19 19:27 100 Nasal Cannula 2.0 28 02/28/19 19:00 101 25 105/72 (83) 100 02/28/19 18:00 106 28 111/79 (90) 99 02/28/19 17:00 106 28 101/68 (79) 100 02/28/19 16:20 Venturi Mask 02/28/19 16:15 Venturi Mask 12.0 40 02/28/19 16:15 98 Cool Aerosol 12.0 40 02/28/19 16:15 40 02/28/19 16:00 104 02/28/19 16:00 98.3 104 23 113/77 (89) 100 02/28/19 16:00 35 02/28/19 16:00 Mechanical Ventilator 02/28/19 15:13 103 33 35 35 02/28/19 15:00 110 36 109/74 (86) 100 02/28/19 14:00 102 26 116/76 (89) 100 02/28/19 13:00 104 26 116/85 (95) 100 02/28/19 12:39 97 32 35 35 02/28/19 12:09 100 02/28/19 12:00 Mechanical Ventilator 02/28/19 12:00 98.0 103 32 97/74 (82) 97 02/28/19 11:30 35 02/28/19 11:30 96 31 35 02/28/19 11:00 102 25 113/78 (90) 100 02/28/19 10:45 95 30 35 02/28/19 10:00 102 38 117/76 (90) 100 02/28/19 09:00 100 32 113/69 (84) 100 02/28/19 08:54 112/72 Status: somnolent Condition: improving HEENT: atraumatic, normocephalic Lungs: clear Heart: HR/BP stable Abdomen: soft, non-tender, active bowel sounds Extremities: no C/C/E Accucheck: 33 Blood Sugars: BS controlled Critical Care - Subjective ROS Limited/Unobtainable: Yes ICU Day: 15 Intubation Day: N/A Interval Events: self extubated and pulled out OGT WCt better HH stable after PRBC Condition: improving IV Access: PICC EKG Rhythm: Sinus Rhythm FI02: 28 Vent Support Breath Rate: 26 Vent Support Mode: CPAP Vent Tidal Volume: 500 Sputum Amount: Small PEEP: 5.0 PIP: 14 Fluids: SLIV Drips: N/A Tube Feeding Amount: 0 I&O: Intake and Output 02/28/19 03/01/19 19:00 07:00 Intake Total 1130 ml 655 ml Output Total 1200 ml 1200 ml Balance -70 ml -545 ml Free Water 50 ml IV Total 720 ml 355 ml Tube Feeding 360 ml 0 ml Blood Product 300 ml Output Urine Total 1200 ml 1100 ml Stool Total 100 ml # Bowel Movements 100 Subjective: Awake lethargic but arousable ET-Tube: 7.5 ET Position: 24 Labs: Laboratory Tests Test 02/28/19 09:15 03/01/19 04:30 Vancomycin Level Trough 32.5 ug/mL (5.0-12.0) H White Blood Count 17.7 K/UL (4.8-10.8) H Red Blood Count 2.91 M/UL (4.70-6.10) L Hemoglobin 9.0 G/DL (14.2-18.0) L Hematocrit 27.8 % (42.0-52.0) L Mean Corpuscular Volume 95 FL (80-99) Mean Corpuscular Hemoglobin 31.0 PG (27.0-31.0) Mean Corpuscular Hemoglobin Concent 32.5 G/DL (32.0-36.0) Red Cell Distribution Width 15.9 % (11.6-14.8) H Platelet Count 417 K/UL (150-450) Mean Platelet Volume 6.0 FL (6.5-10.1) L Neutrophils (%) (Auto) 69.0 % (45.0-75.0) Lymphocytes (%) (Auto) 10.0 % (20.0-45.0) L Monocytes (%) (Auto) 16.8 % (1.0-10.0) H Eosinophils (%) (Auto) 2.3 % (0.0-3.0) Basophils (%) (Auto) 1.9 % (0.0-2.0) Prothrombin Time 16.1 SEC (9.30-11.50) H Prothromb Time International Ratio 1.5 (0.9-1.1) H Activated Partial Thromboplast Time 39 SEC (23-33) H Sodium Level 146 MMOL/L (136-145) H Potassium Level 3.5 MMOL/L (3.5-5.1) Chloride Level 112 MMOL/L (98-107) H Carbon Dioxide Level 25 MMOL/L (21-32) Anion Gap 9 mmol/L (5-15) Blood Urea Nitrogen 20 mg/dL (7-18) H Creatinine 1.8 MG/DL (0.55-1.30) H Estimat Glomerular Filtration Rate 47.8 mL/min (>60) Glucose Level 90 MG/DL (74-106) Uric Acid 4.0 MG/DL (2.6-7.2) Calcium Level 8.0 MG/DL (8.5-10.1) L Phosphorus Level 3.8 MG/DL (2.5-4.9) Magnesium Level 2.1 MG/DL (1.8-2.4) Total Bilirubin 11.2 MG/DL (0.2-1.0) H Direct Bilirubin 9.2 MG/DL (0.0-0.3) H Gamma Glutamyl Transpeptidase 586 U/L (5-85) H Aspartate Amino Transf (AST/SGOT) 158 U/L (15-37) H Alanine Aminotransferase (ALT/SGPT) 55 U/L (12-78) Alkaline Phosphatase 281 U/L (46-116) H C-Reactive Protein, Quantitative 7.0 mg/dL (0.00-0.90) H Pro-B-Type Natriuretic Peptide 1723 pg/mL (0-125) H Total Protein 6.1 G/DL (6.4-8.2) L Albumin 1.3 G/DL (3.4-5.0) L Random Vancomycin Level 25.3 ug/mL Han Harris MD Mar 01, 2019 08:51
--- NOTE | 2019-03-01 08:54 | Nephrology Progress Note ---
Assessment/Plan Problem List: (1) STEFANI (acute kidney injury) Assessment: Cr lower (2) Septic shock (3) Electrolyte and fluid disorder (4) Abnormal LFTs Assessment: fatty liver (5) Hyperbilirubinemia Assessment - STEFANI (acute kidney injury) - Septic shock - Lactic acid acidosis - Abnormal LFTs - Gastrointestinal bleed - Alcohol withdrawal seizure Plan K and Mag and Phos supplement as needed discussed with RN PRN Albumin bolus for low bp Midodrine post extubation care start feeding Hemodynamic support Pressors / Fluids as needed Aim to correct the electrolyte and acid base imbalance monitor renal parameters gastric support switch dilantin to keppra as LFTs rising per orders Subjective ROS Limited/Unobtainable: Yes Objective Objective Last 24 Hour Vital Signs Date Time Temp Pulse Resp B/P (MAP) Pulse Ox O2 Delivery O2 Flow Rate FiO2 03/01/19 08:00 98.8 107 21 110/70 (83) 99 03/01/19 07:00 100 31 114/77 (89) 99 03/01/19 06:00 106 20 114/77 (89) 99 03/01/19 05:00 103 20 103/73 (83) 99 03/01/19 04:00 Nasal Cannula 3.0 Nasal Cannula 3.0 03/01/19 04:00 103 03/01/19 04:00 98.3 82 20 113/78 (90) 97 03/01/19 03:00 99 28 109/74 (86) 97 03/01/19 02:00 96 32 113/74 (87) 97 03/01/19 01:00 95 31 108/76 (87) 97 03/01/19 00:00 98.4 93 28 111/79 (90) 98 03/01/19 00:00 93 03/01/19 00:00 Nasal Cannula 3.0 Nasal Cannula 3.0 02/28/19 23:00 93 28 112/78 (89) 100 02/28/19 22:30 93 111/79 02/28/19 22:00 97 31 114/75 (88) 97 02/28/19 21:00 100 30 110/70 (83) 97 02/28/19 20:00 Nasal Cannula 3.0 Nasal Cannula 3.0 02/28/19 20:00 99.2 96 28 111/72 (85) 100 02/28/19 20:00 96 02/28/19 19:27 100 Nasal Cannula 2.0 28 02/28/19 19:00 101 25 105/72 (83) 100 02/28/19 18:00 106 28 111/79 (90) 99 02/28/19 17:00 106 28 101/68 (79) 100 02/28/19 16:20 Venturi Mask 02/28/19 16:15 Venturi Mask 12.0 40 02/28/19 16:15 98 Cool Aerosol 12.0 40 02/28/19 16:15 40 02/28/19 16:00 104 02/28/19 16:00 98.3 104 23 113/77 (89) 100 02/28/19 16:00 35 02/28/19 16:00 Mechanical Ventilator 02/28/19 15:13 103 33 35 35 02/28/19 15:00 110 36 109/74 (86) 100 02/28/19 14:00 102 26 116/76 (89) 100 02/28/19 13:00 104 26 116/85 (95) 100 02/28/19 12:39 97 32 35 35 02/28/19 12:09 100 02/28/19 12:00 Mechanical Ventilator 02/28/19 12:00 98.0 103 32 97/74 (82) 97 02/28/19 11:30 35 02/28/19 11:30 96 31 35 02/28/19 11:00 102 25 113/78 (90) 100 02/28/19 10:45 95 30 35 02/28/19 10:00 102 38 117/76 (90) 100 02/28/19 09:00 100 32 113/69 (84) 100 02/28/19 08:54 112/72 Intake and Output 02/28/19 03/01/19 19:00 07:00 Intake Total 1130 ml 655 ml Output Total 1200 ml 1200 ml Balance -70 ml -545 ml Free Water 50 ml IV Total 720 ml 355 ml Tube Feeding 360 ml 0 ml Blood Product 300 ml Output Urine Total 1200 ml 1100 ml Stool Total 100 ml # Bowel Movements 100 Laboratory Tests 02/28/19 09:15: Vancomycin Level Trough 32.5H 03/01/19 04:30: White Blood Count 17.7H, Red Blood Count 2.91L, Hemoglobin 9.0L, Hematocrit 27.8L, Mean Corpuscular Volume 95, Mean Corpuscular Hemoglobin 31.0, Mean Corpuscular Hemoglobin Concent 32.5, Red Cell Distribution Width 15.9H, Platelet Count 417, Mean Platelet Volume 6.0L, Neutrophils (%) (Auto) 69.0, Lymphocytes (%) (Auto) 10.0L, Monocytes (%) (Auto) 16.8H, Eosinophils (%) (Auto ) 2.3, Basophils (%) (Auto) 1.9, Prothrombin Time 16.1H, Prothromb Time International Ratio 1.5H, Activated Partial Thromboplast Time 39H, Sodium Level 146H, Potassium Level 3.5, Chloride Level 112H, Carbon Dioxide Level 25, Anion Gap 9, Blood Urea Nitrogen 20H, Creatinine 1.8H, Estimat Glomerular Filtration Rate 47.8, Glucose Level 90, Uric Acid 4.0, Calcium Level 8.0L, Phosphorus Level 3.8, Magnesium Level 2.1, Total Bilirubin 11.2H, Direct Bilirubin 9.2H, Gamma Glutamyl Transpeptidase 586H, Aspartate Amino Transf (AST/SGOT) 158H, Alanine Aminotransferase (ALT/SGPT) 55, Alkaline Phosphatase 281H, C-Reactive Protein, Quantitative 7.0H, Pro-B-Type Natriuretic Peptide 1723H, Total Protein 6.1L, Albumin 1.3L, Random Vancomycin Level 25.3 Height (Feet): 5 Height (Inches): 5.00 Weight (Pounds): 174 General Appearance: no apparent distress EENT: other - now extubated self Cardiovascular: tachycardia Respiratory/Chest: decreased breath sounds Abdomen: soft Objective no change Scotty Bailon MD Mar 01, 2019 08:54
[2019-03-01] MEDS: Lactobacillus-GG tablet ORAL SCH ×2 (09:00→21:42)
[2019-03-01] MEDS: Thiamine 100mg tab NG SCH (09:00)
--- NOTE | 2019-03-01 09:14 | NUR ---
NURSE NOTES: AM meds were administered. Oral care given and pt repositioned. Pt is awake, however drowsy. VS stable. Pt was seen by Dr Kimberly MD aware of pt's self extubation and current status/ awaiting for EGD today. Order received for ABG today. Will process and follow.
[2019-03-01] MEDS: Spironolactone 50mg tab NG SCH ×2 (09:30→21:41)
[2019-03-01] MEDS: Micafungin 100 MG in NS 110 ML IVPB SCH (10:12)
--- NOTE | 2019-03-01 10:30 | NUR ---
NURSE NOTES: Pt was seen by Surinder GALINDO for GI. Order received for ST bedside eval after EGD today. Order processed. Pt is asleep now with stable VS and in no apparent distress.
--- NOTE | 2019-03-01 10:59 | Cardiac Electrophysiology PN ---
Assessment/Plan Assessment/Plan 1. Sinus tachycardia up to 170s. No evidence of acute myocardial infarction . Due to sepsis and anemia and alcohol withdrawal. EF 60%. HR better 2. S/P Septic shock and E Coli bacteremia, on broad-spectrum IV antibiotics. 3. Troponin leak. Type 2. Repeat level 0.16 and now negative 4. S/P Respiratory failure. Self extubated S/P Bronchoscopy and removal of mucus plug 5. ETOH withdrawal 6. Seizures with noncompliance. 7. Upper gi bleed. EGD today 8. Hematuria, resolved DW RN at bedside Subjective Subjective In ICU self extubated last night in SR off pressors.Bronchoscopy by Dr Harris that showed mucus plug. Going for EGD today Objective Last 24 Hour Vital Signs Date Time Temp Pulse Resp B/P (MAP) Pulse Ox O2 Delivery O2 Flow Rate FiO2 03/01/19 10:00 104 26 109/76 (87) 98 03/01/19 09:00 98 30 116/77 (90) 98 03/01/19 08:00 98.8 107 21 110/70 (83) 99 03/01/19 08:00 106 03/01/19 08:00 Nasal Cannula 3.0 Nasal Cannula 3.0 03/01/19 07:00 100 31 114/77 (89) 99 03/01/19 06:00 106 20 114/77 (89) 99 03/01/19 05:00 103 20 103/73 (83) 99 03/01/19 04:00 Nasal Cannula 3.0 Nasal Cannula 3.0 03/01/19 04:00 103 03/01/19 04:00 98.3 82 20 113/78 (90) 97 03/01/19 03:00 99 28 109/74 (86) 97 03/01/19 02:00 96 32 113/74 (87) 97 03/01/19 01:00 95 31 108/76 (87) 97 03/01/19 00:00 98.4 93 28 111/79 (90) 98 03/01/19 00:00 93 03/01/19 00:00 Nasal Cannula 3.0 Nasal Cannula 3.0 02/28/19 23:00 93 28 112/78 (89) 100 02/28/19 22:30 93 111/79 02/28/19 22:00 97 31 114/75 (88) 97 02/28/19 21:00 100 30 110/70 (83) 97 02/28/19 20:00 Nasal Cannula 3.0 Nasal Cannula 3.0 02/28/19 20:00 99.2 96 28 111/72 (85) 100 02/28/19 20:00 96 02/28/19 19:27 100 Nasal Cannula 2.0 28 02/28/19 19:00 101 25 105/72 (83) 100 02/28/19 18:00 106 28 111/79 (90) 99 02/28/19 17:00 106 28 101/68 (79) 100 02/28/19 16:20 Venturi Mask 02/28/19 16:15 Venturi Mask 12.0 40 02/28/19 16:15 98 Cool Aerosol 12.0 40 02/28/19 16:15 40 02/28/19 16:00 104 02/28/19 16:00 98.3 104 23 113/77 (89) 100 02/28/19 16:00 35 02/28/19 16:00 Mechanical Ventilator 02/28/19 15:13 103 33 35 35 02/28/19 15:00 110 36 109/74 (86) 100 02/28/19 14:00 102 26 116/76 (89) 100 02/28/19 13:00 104 26 116/85 (95) 100 02/28/19 12:39 97 32 35 35 02/28/19 12:09 100 02/28/19 12:00 Mechanical Ventilator 02/28/19 12:00 98.0 103 32 97/74 (82) 97 02/28/19 11:30 35 02/28/19 11:30 96 31 35 02/28/19 11:00 102 25 113/78 (90) 100 Intake and Output 02/28/19 03/01/19 19:00 07:00 Intake Total 1130 ml 655 ml Output Total 1200 ml 1200 ml Balance -70 ml -545 ml Free Water 50 ml IV Total 720 ml 355 ml Tube Feeding 360 ml 0 ml Blood Product 300 ml Output Urine Total 1200 ml 1100 ml Stool Total 100 ml # Bowel Movements 100 Laboratory Tests Test 03/01/19 04:30 03/01/19 09:47 White Blood Count 17.7 K/UL (4.8-10.8) H Red Blood Count 2.91 M/UL (4.70-6.10) L Hemoglobin 9.0 G/DL (14.2-18.0) L Hematocrit 27.8 % (42.0-52.0) L Mean Corpuscular Volume 95 FL (80-99) Mean Corpuscular Hemoglobin 31.0 PG (27.0-31.0) Mean Corpuscular Hemoglobin Concent 32.5 G/DL (32.0-36.0) Red Cell Distribution Width 15.9 % (11.6-14.8) H Platelet Count 417 K/UL (150-450) Mean Platelet Volume 6.0 FL (6.5-10.1) L Neutrophils (%) (Auto) 69.0 % (45.0-75.0) Lymphocytes (%) (Auto) 10.0 % (20.0-45.0) L Monocytes (%) (Auto) 16.8 % (1.0-10.0) H Eosinophils (%) (Auto) 2.3 % (0.0-3.0) Basophils (%) (Auto) 1.9 % (0.0-2.0) Prothrombin Time 16.1 SEC (9.30-11.50) H Prothromb Time International Ratio 1.5 (0.9-1.1) H Activated Partial Thromboplast Time 39 SEC (23-33) H Sodium Level 146 MMOL/L (136-145) H Potassium Level 3.5 MMOL/L (3.5-5.1) Chloride Level 112 MMOL/L (98-107) H Carbon Dioxide Level 25 MMOL/L (21-32) Anion Gap 9 mmol/L (5-15) Blood Urea Nitrogen 20 mg/dL (7-18) H Creatinine 1.8 MG/DL (0.55-1.30) H Estimat Glomerular Filtration Rate 47.8 mL/min (>60) Glucose Level 90 MG/DL (74-106) Uric Acid 4.0 MG/DL (2.6-7.2) Calcium Level 8.0 MG/DL (8.5-10.1) L Phosphorus Level 3.8 MG/DL (2.5-4.9) Magnesium Level 2.1 MG/DL (1.8-2.4) Total Bilirubin 11.2 MG/DL (0.2-1.0) H Direct Bilirubin 9.2 MG/DL (0.0-0.3) H Gamma Glutamyl Transpeptidase 586 U/L (5-85) H Aspartate Amino Transf (AST/SGOT) 158 U/L (15-37) H Alanine Aminotransferase (ALT/SGPT) 55 U/L (12-78) Alkaline Phosphatase 281 U/L (46-116) H C-Reactive Protein, Quantitative 7.0 mg/dL (0.00-0.90) H Pro-B-Type Natriuretic Peptide 1723 pg/mL (0-125) H Total Protein 6.1 G/DL (6.4-8.2) L Albumin 1.3 G/DL (3.4-5.0) L Random Vancomycin Level 25.3 ug/mL Arterial Blood pH 7.516 (7.350-7.450) Arterial Blood Partial Pressure CO2 31.8 mmHg (35.0-45.0) L Arterial Blood Partial Pressure O2 100.0 mmHg (75.0-100.0) Arterial Blood HCO3 25.2 mmol/L (22.0-26.0) Arterial Blood Oxygen Saturation 97.3 % (95-100) Arterial Blood Base Excess 2.5 (-2-2) H Cesar Test Positive Objective HEAD AND NECK: No JVD LUNGS: Decreased breath sounds. CARDIOVASCULAR: Regular S1 and S2 with no gallop or murmur. ABDOMEN: Soft. EXTREMITIES: No pitting edema. Fidencio Trevino MD Mar 01, 2019 10:59
--- NOTE | 2019-03-01 11:00 | NUR ---
NURSE NOTES: Pt was seen by Dr Trevino. No new orders at this time. Pt has been repositioned; asleep currently with stable VS.
--- NOTE | 2019-03-01 12:10 | NUR ---
NURSE NOTES: Pt is awake, with stable VS, heart rate slightly ST at 101. Pt remains on 3L of oxygen via nasal cannula with 100% O2sat. Remains NPO, while waiting for EGD at bedside. Aguilar catheter continues to drain clear/dark yellow urine at 60-100ml/hourly. Rectal tube remains in place with output of liquid/dark brown stool. Bilateral soft wrist restraints are maintained as the pt is still confused/impulsive and at risk for pulling out PICC line. Central line/PICC is intact/patent and TKO. Bed remains in lowest position, with three side rails up and call light within reach.
--- NOTE | 2019-03-01 12:23 | Anethesia Preoperative Eval ---
Anesthesia Pre-op PMH/ROS General Date of Evaluation: Mar 01, 2019 Time of Evaluation: 12:17 Anesthesiologist: Candi ASA Score: ASA 4 Mallampati Score Class I : Soft palate, uvula, fauces, pillars visible Class II: Soft palate, uvula, fauces visible Class III: Soft palate, base of uvula visible Class IV: Only hard plate visible Mallampati Classification: Class III Surgeon: Merle Diagnosis: Anemia Surgical Procedure: EGD Anesthesia History: none Social History: alcohol use - h/o abuse Family History: no anesthesia problems Allergies: Coded Allergies: No Known Allergies (Unverified , 02/10/15) Medications: see eMAR Patient NPO?: Yes Past Medical History Cardiovascular: Reports: HTN; Denies: CAD, PR, valve dz, arrhythmia, other Pulmonary: Denies: asthma, COPD, MENDOZA, other Gastrointestinal/Genitourinary: Reports: GERD, CRI, other - liver cirrosis; Denies: ESRD Neurologic/Psychiatric: Reports: dementia - hepatic encephalopathy, confused, other - recurrent seizers Endocrine: Reports: hypothyroidism; Denies: DM, steroids, other HEENT: Denies: cataract (L), cataract (R), glaucoma, [place] (L), [place] (R), other Hematology/Immune: Reports: anemia, bleeding disorder - h/o trhombocitopenia; Denies: DVT, other Musculoskeletal/Integumentary: Denies: OA, RA, DJD, DDD, edema, other Other: other - malnourished PMH Narrative: as above PSxH Narrative: see H&P Anesthesia Pre-op Phys. Exam Physician Exam Last Vital Signs Date Time Temp Pulse Resp B/P (MAP) Pulse Ox O2 Delivery O2 Flow Rate FiO2 03/01/19 12:00 103 03/01/19 12:00 30 107/73 (84) 100 03/01/19 12:00 Nasal Cannula 3.0 Nasal Cannula 3.0 03/01/19 08:00 98.8 02/28/19 19:27 28 Constitutional: NAD Neurologic: other - unable to obtaine Cardiovascular: RRR, no M/R/G Respiratory: other - diminished breath sounds bilaterally Airway Exam Mallampati Score: Class III MO: limited Neck: stiff ROM: limited Teeth: missing, broken Dentures: no upper, no lower Anesthesia Pre-op A/P Labs Hematology Test 03/01/19 04:30 White Blood Count 17.7 K/UL (4.8-10.8) H Red Blood Count 2.91 M/UL (4.70-6.10) L Hemoglobin 9.0 G/DL (14.2-18.0) L Hematocrit 27.8 % (42.0-52.0) L Mean Corpuscular Volume 95 FL (80-99) Mean Corpuscular Hemoglobin 31.0 PG (27.0-31.0) Mean Corpuscular Hemoglobin Concent 32.5 G/DL (32.0-36.0) Red Cell Distribution Width 15.9 % (11.6-14.8) H Platelet Count 417 K/UL (150-450) Mean Platelet Volume 6.0 FL (6.5-10.1) L Neutrophils (%) (Auto) 69.0 % (45.0-75.0) Lymphocytes (%) (Auto) 10.0 % (20.0-45.0) L Monocytes (%) (Auto) 16.8 % (1.0-10.0) H Eosinophils (%) (Auto) 2.3 % (0.0-3.0) Basophils (%) (Auto) 1.9 % (0.0-2.0) Coagulation Test 03/01/19 04:30 Prothrombin Time 16.1 SEC (9.30-11.50) H Prothromb Time International Ratio 1.5 (0.9-1.1) H Activated Partial Thromboplast Time 39 SEC (23-33) H Chemistry Test 03/01/19 04:30 Sodium Level 146 MMOL/L (136-145) H Potassium Level 3.5 MMOL/L (3.5-5.1) Chloride Level 112 MMOL/L (98-107) H Carbon Dioxide Level 25 MMOL/L (21-32) Anion Gap 9 mmol/L (5-15) Blood Urea Nitrogen 20 mg/dL (7-18) H Creatinine 1.8 MG/DL (0.55-1.30) H Estimat Glomerular Filtration Rate 47.8 mL/min (>60) Glucose Level 90 MG/DL (74-106) Uric Acid 4.0 MG/DL (2.6-7.2) Calcium Level 8.0 MG/DL (8.5-10.1) L Phosphorus Level 3.8 MG/DL (2.5-4.9) Magnesium Level 2.1 MG/DL (1.8-2.4) Total Bilirubin 11.2 MG/DL (0.2-1.0) H Direct Bilirubin 9.2 MG/DL (0.0-0.3) H Gamma Glutamyl Transpeptidase 586 U/L (5-85) H Aspartate Amino Transf (AST/SGOT) 158 U/L (15-37) H Alanine Aminotransferase (ALT/SGPT) 55 U/L (12-78) Alkaline Phosphatase 281 U/L (46-116) H C-Reactive Protein, Quantitative 7.0 mg/dL (0.00-0.90) H Pro-B-Type Natriuretic Peptide 1723 pg/mL (0-125) H Total Protein 6.1 G/DL (6.4-8.2) L Albumin 1.3 G/DL (3.4-5.0) L Risk Assessment & Plan Assessment: ASA 4 Plan: Bed side procedure in ICU MAC Status Change Before Surgery: Yohan Cormier MD Mar 01, 2019 12:23
[2019-03-01] MEDS ORDERED: Propofol 200mg/20ml IV ONE (12:30)
[2019-03-01] MEDS ORDERED: Midazolam 2mg/2ml Inj ONE (12:30)
--- NOTE | 2019-03-01 12:30 | NUR ---
NURSE NOTES: EGD was done at bedside by Dr Bloom, with anesthesiologist and RN at bedside. Pt tolerated procedure well with no adverse reaction/event. VS stable with heart rate slightly ST at 104 and O2sat fluctuating from 92-98% at 3L of oxygen via nasal cannula. Pt is being closely monitored.
--- NOTE | 2019-03-01 12:39 | Pre-Procedure Note/Attestation ---
Pre-Procedure Note/Attestation Complete Prior to Procedure Planned Procedure: not applicable Procedure Narrative: egd Indications for Procedure Pre-Operative Diagnosis: gib Attestation I attest that I discussed the nature of the procedure; its benefits; risks and complications; and alternatives (and the risks and benefits of such alternatives ), prior to the procedure, with the patient (or the patient's legal fuels sales representative). I attest that, if there was a reasonable possibility of needing a blood transfusion, the patient (or the patient's legal fuels sales representative) was given the [facility] standardized written summary, pursuant to the Tushar Marianela Blood Safety Act ([place] Health and Safety Code # 1645, as amended). I attest that I re-evaluated the patient just prior to the surgery and that there has been no change in the patient's H&P, except as documented below: Jones Bloom MD Mar 01, 2019 12:39
--- NOTE | 2019-03-01 12:45 | Endoscopy Procedure Note ---
Endoscopy Procedure Note General Indication for Procedure: gib Procedures Performed: EGD Operative Findings/Diagnosis: gstritis Specimen: yes Pt Tolerated Procedure Well: Yes Estimated Blood Loss: none Anesthesia Anesthesiologist: martha Anesthesia: MAC Inserted Devices Implant(s) used?: No GI Core Measures 50 yrs or older w/o bx or poly: Not Applicable 10yrs. F/U recommended: Not Applicable Jones Bloom MD Mar 01, 2019 12:45
--- NOTE | 2019-03-01 12:59 | Immediate Post-Op Evaluation ---
Immediate Post-Op Evalulation Immediate Post-Op Evalulation Procedure: EGD with Bx Date of Evaluation: Mar 01, 2019 Time of Evaluation: 12:58 IV Fluids: 200 Blood Products: none Estimated Blood Loss: none Urinary Output: none Blood Pressure Systolic: 98 Blood Pressure Diastolic: 52 Pulse Rate: 86 Respiratory Rate: 22 O2 Sat by Pulse Oximetry: 96 Temperature (Fahrenheit): 97.7 Pain Score (1-10): 1 Nausea: No Vomiting: No Complications none Patient Status: reacts, patent, none Hydration Status: adequate Yohan Christopher MD Mar 01, 2019 12:58
--- NOTE | 2019-03-01 13:06 | Surgery Progress Note ---
Surgery Progress Note Subjective Procedure Performed left femoral central venous catheter insertion Additional Comments Patient has been extubated. Awake alert responsive. States he is hungry and wants food. Leukocytosis trending down. Worsening liver function enzymes. More jaundiced. Objective Last 24 Hour Vital Signs Date Time Temp Pulse Resp B/P (MAP) Pulse Ox O2 Delivery O2 Flow Rate FiO2 03/01/19 12:58 86 22 96 03/01/19 12:00 103 03/01/19 12:00 100 30 107/73 (84) 100 03/01/19 12:00 Nasal Cannula 3.0 Nasal Cannula 3.0 03/01/19 11:00 98 28 114/76 (89) 98 03/01/19 10:00 104 26 109/76 (87) 98 03/01/19 09:00 98 30 116/77 (90) 98 03/01/19 08:00 98.8 107 21 110/70 (83) 99 03/01/19 08:00 106 03/01/19 08:00 Nasal Cannula 3.0 Nasal Cannula 3.0 03/01/19 07:00 100 31 114/77 (89) 99 03/01/19 06:00 106 20 114/77 (89) 99 03/01/19 05:00 103 20 103/73 (83) 99 03/01/19 04:00 Nasal Cannula 3.0 Nasal Cannula 3.0 03/01/19 04:00 103 03/01/19 04:00 98.3 82 20 113/78 (90) 97 03/01/19 03:00 99 28 109/74 (86) 97 03/01/19 02:00 96 32 113/74 (87) 97 03/01/19 01:00 95 31 108/76 (87) 97 03/01/19 00:00 98.4 93 28 111/79 (90) 98 03/01/19 00:00 93 03/01/19 00:00 Nasal Cannula 3.0 Nasal Cannula 3.0 02/28/19 23:00 93 28 112/78 (89) 100 02/28/19 22:30 93 111/79 02/28/19 22:00 97 31 114/75 (88) 97 02/28/19 21:00 100 30 110/70 (83) 97 02/28/19 20:00 Nasal Cannula 3.0 Nasal Cannula 3.0 02/28/19 20:00 99.2 96 28 111/72 (85) 100 02/28/19 20:00 96 02/28/19 19:27 100 Nasal Cannula 2.0 28 02/28/19 19:00 101 25 105/72 (83) 100 02/28/19 18:00 106 28 111/79 (90) 99 02/28/19 17:00 106 28 101/68 (79) 100 02/28/19 16:20 Venturi Mask 02/28/19 16:15 Venturi Mask 12.0 40 02/28/19 16:15 98 Cool Aerosol 12.0 40 02/28/19 16:15 40 02/28/19 16:00 104 02/28/19 16:00 98.3 104 23 113/77 (89) 100 02/28/19 16:00 35 02/28/19 16:00 Mechanical Ventilator 02/28/19 15:13 103 33 35 35 02/28/19 15:00 110 36 109/74 (86) 100 02/28/19 14:00 102 26 116/76 (89) 100 I&O Intake and Output 02/28/19 03/01/19 19:00 07:00 Intake Total 1130 ml 655 ml Output Total 1200 ml 1200 ml Balance -70 ml -545 ml Free Water 50 ml IV Total 720 ml 355 ml Tube Feeding 360 ml 0 ml Blood Product 300 ml Output Urine Total 1200 ml 1100 ml Stool Total 100 ml # Bowel Movements 100 Cardiovascular: RSR Respiratory: clear Abdomen: soft, distended, non-tender, present bowel sounds Extremities: no tenderness, no cyanosis Laboratory Tests Test 03/01/19 04:30 03/01/19 09:47 White Blood Count 17.7 K/UL (4.8-10.8) H Red Blood Count 2.91 M/UL (4.70-6.10) L Hemoglobin 9.0 G/DL (14.2-18.0) L Hematocrit 27.8 % (42.0-52.0) L Mean Corpuscular Volume 95 FL (80-99) Mean Corpuscular Hemoglobin 31.0 PG (27.0-31.0) Mean Corpuscular Hemoglobin Concent 32.5 G/DL (32.0-36.0) Red Cell Distribution Width 15.9 % (11.6-14.8) H Platelet Count 417 K/UL (150-450) Mean Platelet Volume 6.0 FL (6.5-10.1) L Neutrophils (%) (Auto) 69.0 % (45.0-75.0) Lymphocytes (%) (Auto) 10.0 % (20.0-45.0) L Monocytes (%) (Auto) 16.8 % (1.0-10.0) H Eosinophils (%) (Auto) 2.3 % (0.0-3.0) Basophils (%) (Auto) 1.9 % (0.0-2.0) Prothrombin Time 16.1 SEC (9.30-11.50) H Prothromb Time International Ratio 1.5 (0.9-1.1) H Activated Partial Thromboplast Time 39 SEC (23-33) H Sodium Level 146 MMOL/L (136-145) H Potassium Level 3.5 MMOL/L (3.5-5.1) Chloride Level 112 MMOL/L (98-107) H Carbon Dioxide Level 25 MMOL/L (21-32) Anion Gap 9 mmol/L (5-15) Blood Urea Nitrogen 20 mg/dL (7-18) H Creatinine 1.8 MG/DL (0.55-1.30) H Estimat Glomerular Filtration Rate 47.8 mL/min (>60) Glucose Level 90 MG/DL (74-106) Uric Acid 4.0 MG/DL (2.6-7.2) Calcium Level 8.0 MG/DL (8.5-10.1) L Phosphorus Level 3.8 MG/DL (2.5-4.9) Magnesium Level 2.1 MG/DL (1.8-2.4) Total Bilirubin 11.2 MG/DL (0.2-1.0) H Direct Bilirubin 9.2 MG/DL (0.0-0.3) H Gamma Glutamyl Transpeptidase 586 U/L (5-85) H Aspartate Amino Transf (AST/SGOT) 158 U/L (15-37) H Alanine Aminotransferase (ALT/SGPT) 55 U/L (12-78) Alkaline Phosphatase 281 U/L (46-116) H C-Reactive Protein, Quantitative 7.0 mg/dL (0.00-0.90) H Pro-B-Type Natriuretic Peptide 1723 pg/mL (0-125) H Total Protein 6.1 G/DL (6.4-8.2) L Albumin 1.3 G/DL (3.4-5.0) L Random Vancomycin Level 25.3 ug/mL Arterial Blood pH 7.516 (7.350-7.450) Arterial Blood Partial Pressure CO2 31.8 mmHg (35.0-45.0) L Arterial Blood Partial Pressure O2 100.0 mmHg (75.0-100.0) Arterial Blood HCO3 25.2 mmol/L (22.0-26.0) Arterial Blood Oxygen Saturation 97.3 % (95-100) Arterial Blood Base Excess 2.5 (-2-2) H Cesar Test Positive Plan Problems: (1) Non-compliance Assessment & Plan: Noncompliance with seizure medication with known history of seizures Now had seizure Appreciate neurology input (2) Electrolyte and fluid disorder Assessment & Plan: Likely due to EtOH use and dehydration IV hydration Trend labs (3) Fever (4) Oral thrush (5) Diarrhea (6) Aspiration pneumonia (7) Seizure disorder (8) Tachycardia (9) Altered mental status (10) Alcohol withdrawal seizure (11) Alcohol withdrawal seizure (12) Episode of confusion (13) Coffee ground emesis (14) Gastrointestinal bleed Assessment & Plan: Patient on admission identified to have maroon-colored stool and coffee-ground emesis. Labs noted mild anemia with H&H trending down. No acute active bleed noted but given patient's history high risk for potential ulcers. PPI Appreciate GI input considerations for EGD once stable No evidence of pulmonary embolus, aortic dissection or aneurysm. Posterior basilar consolidation suspicious for pneumonia. Correlate clinically. Trace bilateral pleural effusions. Possible enterocolitis as described above. Please correlate clinically. Mild ascites Fatty liver Cholelithiasis with wall thickening. Cholecystitis not excluded. Small right inguinal hernia containing fat Extensive breathing motion artifact limiting evaluation. We will follow with recommendations thank you (15) Sinus tachycardia (16) Septic shock (17) Sepsis Assessment & Plan: Patient septic leukocytosis improved today lactic acidosis resolved anemia renal function declining electrolyte disturbance US noted on IV abx extubated doing well US noted again. liver decompensated HIDA noted and likely cirrhosis delgado AM labs reordered (18) Lactic acid acidosis (19) STEFANI (acute kidney injury) (20) Abnormal LFTs (21) High anion gap metabolic acidosis Juanpablo Marcus Mar 01, 2019 13:06
--- NOTE | 2019-03-01 13:19 | NUR ---
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 98.8 HR 107 RR 30 B/P 107/73 3L NC O2 SAT @ 98% WBC 17.7 BUN 20 CR 1.8 GGT 506 BNP 1723 PT 16.1 INR 1.5 APTT 39 EGD=GASTRITIS IS: CEFEPIME IV FLAGYL IV MICAFUNGIN IV SWALLOW EVAL ICU STATUS
--- NOTE | 2019-03-01 14:00 | NUR ---
NURSE NOTES: Pt was cleaned and repositioned. Oral care done. VS stable. Family now at bedside.
--- NOTE | 2019-03-01 15:01 | General Progress Note ---
Assessment/Plan Status: unchanged Assessment/Plan: # Bicytopenia with anemia likely due to Gi bleed -- stool occult blood +, requires further eval with gi, also with etoh withdrawal, also can be related to meds/abx, Hida shows Limited hepatic uptake and excretion, probably due to hepatocellular disease. Note that previous imaging studies suggest the presence of cirrhotic changes. --> anemia panel has been reviewed and results are acd --> peripheral smear reviewed and not noted to have blasts --> wbc remains elevated --> started on folate 1mg po daily (LOW FOLATE) --> Flow cytometry shows no evidence of b-lymphoproliferative disorder --> Hep panel negative # Anemia of chronic disease, per anemia panel --> hgb trend 8-->7-->8-->9-->8.6-->7.7-->7.9-->8.3-->7.9->8.5-->9 --> may require gi eval when more stable with scope (EGD) --> transfuse if hb <7 --> cont folic acid and thiamine # Leukocytosis due to Septic shock and severe Lactic acidosis on Levophed and broad-spectrum IV antibiotics. --> per ID care, continue abx --> pressor as needed --> vanc/zosyn, flucon --> Hgb trend: 34.9 -->28k-->35k-->17k # Sinus tachycardia up to 170s. No evidence of acute myocardial infarction . --> This is likely due to sepsis and anemia, alcohol withdrawal --> Echo Nl EF 60% # Troponin leak, type 2. --> per cards # Respiratory failure on the vent. Failed weaning --> sbt trial per pulm, now extubated --> 02/27 the bronchoscope was advanced into both mainstem bronchi and subsegmental bronchi. There was increased secretions bilaterally, mucopurulent including mucus plugging of the right upper lobe, which was therapeutically aspirated. BAL specimen was sent. # Transaminitis with elev bilis --> as per gi # ETOH withdrawal --> recommend etoh cessation # Seizures with noncompliance Greatly appreciate consultation. Subjective Constitutional: Denies: no symptoms, chills, diaphoresis, fever, malaise, weakness, other HEENT: Denies: no symptoms, eye pain, blurred vision, tearing, double vision, ear pain, ear discharge, nose pain, nose congestion, throat pain, throat swelling, mouth pain, mouth swelling, other Respiratory: Denies: no symptoms, cough, orthopnea, shortness of breath, SOB with excertion, SOB at rest, sputum, stridor, wheezing, other Genitourinary: Denies: no symptoms, burning, discharge, frequency, flank pain, hematuria, incontinence, pain, urgency, other Endocrine: Denies: no symptoms, excessive sweating, flushing, intolerance to cold, intolerance to heat, increased hunger, increased thirst, increased urine, unexplained weight gain, unexplained weight loss, other Hematologic/Lymphatic: Denies: no symptoms, anemia, easy bleeding, easy bruising, other Allergies: Coded Allergies: No Known Allergies (Unverified , 02/10/15) Subjective 02/20: intubated, counts are better, on vent, sbt in process, no f/c, mag low 02/21: endoscopy on hold at this time, bloody stool, plt better, on abx 02/22: no events reported, remains intubated, no bleeding, plt better, k is low, repleted\ 02/23: remains in icu, letargic, flow cytometry showed no evidence of b- lymphoproliferative disorder, c-diif negative, labs reviewed, remains on levo 02/24: in icu, on vent, wbc at 32, id made aware. 02/25: icu, weaning off of vent, labs reviewed, continues on abx 02/26: no fc, no changes reported, wbc high, ongoing hida scan 02/27: no events, bronch to be done today, results pending 02/28: no f/c, restraints++, ogt was inserted 03/01: s/p extubation, self-extubated, otherwise on abx, off pressors Objective Last 24 Hour Vital Signs Date Time Temp Pulse Resp B/P (MAP) Pulse Ox O2 Delivery O2 Flow Rate FiO2 03/01/19 14:00 100 32 109/79 (89) 99 03/01/19 13:30 103 29 109/79 (89) 100 03/01/19 13:00 106 21 104/67 (79) 96 03/01/19 12:58 86 22 96 03/01/19 12:00 103 03/01/19 12:00 100 30 107/73 (84) 100 03/01/19 12:00 Nasal Cannula 3.0 Nasal Cannula 3.0 03/01/19 11:00 98 28 114/76 (89) 98 03/01/19 10:00 104 26 109/76 (87) 98 03/01/19 09:00 98 30 116/77 (90) 98 03/01/19 08:00 98.8 107 21 110/70 (83) 99 03/01/19 08:00 106 03/01/19 08:00 Nasal Cannula 3.0 Nasal Cannula 3.0 03/01/19 07:00 100 31 114/77 (89) 99 03/01/19 06:00 106 20 114/77 (89) 99 03/01/19 05:00 103 20 103/73 (83) 99 03/01/19 04:00 Nasal Cannula 3.0 Nasal Cannula 3.0 03/01/19 04:00 103 03/01/19 04:00 98.3 82 20 113/78 (90) 97 03/01/19 03:00 99 28 109/74 (86) 97 03/01/19 02:00 96 32 113/74 (87) 97 03/01/19 01:00 95 31 108/76 (87) 97 03/01/19 00:00 98.4 93 28 111/79 (90) 98 03/01/19 00:00 93 03/01/19 00:00 Nasal Cannula 3.0 Nasal Cannula 3.0 02/28/19 23:00 93 28 112/78 (89) 100 02/28/19 22:30 93 111/79 02/28/19 22:00 97 31 114/75 (88) 97 02/28/19 21:00 100 30 110/70 (83) 97 02/28/19 20:00 Nasal Cannula 3.0 Nasal Cannula 3.0 02/28/19 20:00 99.2 96 28 111/72 (85) 100 02/28/19 20:00 96 02/28/19 19:27 100 Nasal Cannula 2.0 28 02/28/19 19:00 101 25 105/72 (83) 100 02/28/19 18:00 106 28 111/79 (90) 99 02/28/19 17:00 106 28 101/68 (79) 100 02/28/19 16:20 Venturi Mask 02/28/19 16:15 Venturi Mask 12.0 40 02/28/19 16:15 98 Cool Aerosol 12.0 40 02/28/19 16:15 40 02/28/19 16:00 104 02/28/19 16:00 98.3 104 23 113/77 (89) 100 02/28/19 16:00 35 02/28/19 16:00 Mechanical Ventilator 02/28/19 15:13 103 33 35 35 Intake and Output 02/28/19 03/01/19 19:00 07:00 Intake Total 1130 ml 655 ml Output Total 1200 ml 1200 ml Balance -70 ml -545 ml Free Water 50 ml IV Total 720 ml 355 ml Tube Feeding 360 ml 0 ml Blood Product 300 ml Output Urine Total 1200 ml 1100 ml Stool Total 100 ml # Bowel Movements 100 Laboratory Tests 03/01/19 04:30: White Blood Count 17.7H, Red Blood Count 2.91L, Hemoglobin 9.0L, Hematocrit 27.8L, Mean Corpuscular Volume 95, Mean Corpuscular Hemoglobin 31.0, Mean Corpuscular Hemoglobin Concent 32.5, Red Cell Distribution Width 15.9H, Platelet Count 417, Mean Platelet Volume 6.0L, Neutrophils (%) (Auto) 69.0, Lymphocytes (%) (Auto) 10.0L, Monocytes (%) (Auto) 16.8H, Eosinophils (%) (Auto ) 2.3, Basophils (%) (Auto) 1.9, Prothrombin Time 16.1H, Prothromb Time International Ratio 1.5H, Activated Partial Thromboplast Time 39H, Sodium Level 146H, Potassium Level 3.5, Chloride Level 112H, Carbon Dioxide Level 25, Anion Gap 9, Blood Urea Nitrogen 20H, Creatinine 1.8H, Estimat Glomerular Filtration Rate 47.8, Glucose Level 90, Uric Acid 4.0, Calcium Level 8.0L, Phosphorus Level 3.8, Magnesium Level 2.1, Total Bilirubin 11.2H, Direct Bilirubin 9.2H, Gamma Glutamyl Transpeptidase 586H, Aspartate Amino Transf (AST/SGOT) 158H, Alanine Aminotransferase (ALT/SGPT) 55, Alkaline Phosphatase 281H, C-Reactive Protein, Quantitative 7.0H, Pro-B-Type Natriuretic Peptide 1723H, Total Protein 6.1L, Albumin 1.3L, Random Vancomycin Level 25.3 03/01/19 09:47: Arterial Blood pH 7.516H, Arterial Blood Partial Pressure CO2 31.8L, Arterial Blood Partial Pressure O2 100.0, Arterial Blood HCO3 25.2, Arterial Blood Oxygen Saturation 97.3, Arterial Blood Base Excess 2.5H, Cesar Test Positive Height (Feet): 5 Height (Inches): 5.00 Weight (Pounds): 170 Objective Gen: NAD HEENT: atraumatic, other - OGT Lungs: clear, ++nc 2l Heart: HR/BP unstable Abdomen: soft, non-tender, active bowel sounds Extremities: no cce, L femoral cath+ Robert Johnston MD Mar 01, 2019 15:01
--- NOTE | 2019-03-01 15:25 | NUR ---
*-* INSURANCE *-* UPDATED CLINICAL AD REVIEWS HAVE BEEN FAXED TO: VANESSA COREA: ANTWON P- [phone] [id number] X [id number] [phone]..............REVIEW/CLINICAL
--- NOTE | 2019-03-01 15:35 | NUR ---
NURSE NOTES: Abdominal ultrasound was just done at bedside as per Dr Bloom's order. Pt is asleep with stable VS in no apparent distress.
--- NOTE | 2019-03-01 16:31 | Diagnostic Imaging Report ---
Indication: Abdominal pain Technique: Grayscale and duplex Doppler imaging of the abdomen performed. Comparison: None Findings: Liver is nodular and heterogeneous. There is mild to moderate ascites. Doppler interrogation of the main portal vein shows monophasic flow. Spleen is normal size. No biliary ductal dilatation is identified. There is gallbladder wall thickening without definite demonstration of stones. There is no hydronephrosis demonstrated. However, there are small echogenic foci within the kidneys suspicious for small nonobstructive stones. CBD is 4 mm. IMPRESSION: Evidence of chronic liver disease/cirrhosis with ascites. Gallbladder wall thickening, nonspecific. Possible nonobstructive stones within the kidneys.
--- NOTE | 2019-03-01 17:45 | NUR ---
NURSE NOTES: Pt was cleaned, and gown/linens changed. Pt was repositioned with bilateral extremities elevated on pillows. Oral care done. Pt is resting with stable VS, while maintained on 3L of oxygen via nasal cannula at 98%.
--- NOTE | 2019-03-01 17:49 | General Progress Note ---
Assessment/Plan Status: unchanged Assessment/Plan: 54 year old male with pMH of seizure disorder and etoh abuse admitted for seizures 2/2 non-compliance # Transaminitis - f/u HIDA : non obstructive, findings c/w intracellular damage - ctm - appreciate GI and Sx input - us shows nodularity and chronic disease - hep panel negative - ggt increased - f/u GI # Hemoptysis - s/p bronch 02/27 with Therapeutic aspiration and mucus plug from the endotracheal tube in right upper lobe., - monitor ett output - monitor hgb #severe septic shock likely 2/2 UTI #Gram negative bacteremia, now resolved by surveillance follow up blood culture #Acute respiratory failure requiting intubation s/p extubation 03/01 -abx per ID - Re culture ordered due to severe increase in the WBC from 15 to 26 to 29 thousand of unclear etiology - Hematology consult noted to be due to sepsis. - CBC serial. - CT 02/18 with atelectasis primarily - Diuresis started and good response -ID consult appreciated - Immunoglobulin and hepatitis panel negative. -cont ICU care -abg prn - Reviewed CT chest/abd/pel #Lactic acidosis -2/2 severe shock/ poss abd source/ seizures - 2 D Echo on 02/16 with EF 65%. Discussed with cardiology and etiology likely sepsis and not cardiogenic -CTM -Fluid boluses completed. -Cont mIVF #Coagulopathy # Thrombocytopenia - 40,000 stable Monitor. No active bleeding toay. - Hematology consult with Dr. Johnston appreciated. Flow cytometry pending. -likely 2/2 hepatic injury 2/2 shock - Consumption coagulopathy. - Consider platelet transfusion if LESS than 30K with urine blood tinge color. #Coffee ground emesis likely in setting of GI bleed -H/H trending down. Monitor -GI consult appreciated -Plan for EGD today #Seizures 2/2 noncomplaint with AED -s/p phenytoin load in ED -Cont Phenytoin -Neurology consult appreciated -pending EEG - no seizures noted in last 24 hours -Ativan PRN for seizures -NPO -Seizure precautions #Hypokalemia - Replete as needed #hypophosphatemia - Repleted. #Hypomagnesemia -repleted -CTM # Urethral hemorrhage and clot evacuation - Discussed with Dr. Matta over the phone and bleeding stopped spontaneously, No formal urology consult for now in place. - If recurrent hemorrhage will address. - H/H and INR stat today. - Consider PRBC and Platelets if Hb < 8 or Plt < 30 K # Urinary retention PVR > 300 cc WILKINSON replaced 02/[address] ( in case of repeat hemorrhage ) D/w RN Code: Full Subjective Allergies: Coded Allergies: No Known Allergies (Unverified , 02/10/15) Subjective Pt self extubated last night, saturating well on NC this AM, plan for EGD today , sleepy but arousable, able to answer simple questions, still confused, has no complaints. Objective Last 24 Hour Vital Signs Date Time Temp Pulse Resp B/P (MAP) Pulse Ox O2 Delivery O2 Flow Rate FiO2 03/01/19 17:00 101 29 109/80 (90) 97 03/01/19 16:00 95 03/01/19 16:00 Nasal Cannula 3.0 Nasal Cannula 3.0 03/01/19 16:00 97.5 97 28 111/74 (86) 99 03/01/19 15:00 99 21 115/81 (92) 100 03/01/19 14:00 100 32 109/79 (89) 99 03/01/19 13:30 103 29 109/79 (89) 100 03/01/19 13:00 106 21 104/67 (79) 96 03/01/19 12:58 86 22 96 03/01/19 12:00 103 03/01/19 12:00 98.6 100 30 107/73 (84) 100 03/01/19 12:00 Nasal Cannula 3.0 Nasal Cannula 3.0 03/01/19 11:00 98 28 114/76 (89) 98 03/01/19 10:00 104 26 109/76 (87) 98 03/01/19 09:00 98 30 116/77 (90) 98 03/01/19 08:00 98.8 107 21 110/70 (83) 99 03/01/19 08:00 106 03/01/19 08:00 Nasal Cannula 3.0 Nasal Cannula 3.0 03/01/19 07:00 100 31 114/77 (89) 99 03/01/19 06:00 106 20 114/77 (89) 99 03/01/19 05:00 103 20 103/73 (83) 99 03/01/19 04:00 Nasal Cannula 3.0 Nasal Cannula 3.0 03/01/19 04:00 103 03/01/19 04:00 98.3 82 20 113/78 (90) 97 03/01/19 03:00 99 28 109/74 (86) 97 03/01/19 02:00 96 32 113/74 (87) 97 03/01/19 01:00 95 31 108/76 (87) 97 03/01/19 00:00 98.4 93 28 111/79 (90) 98 03/01/19 00:00 93 03/01/19 00:00 Nasal Cannula 3.0 Nasal Cannula 3.0 02/28/19 23:00 93 28 112/78 (89) 100 02/28/19 22:30 93 111/79 02/28/19 22:00 97 31 114/75 (88) 97 02/28/19 21:00 100 30 110/70 (83) 97 02/28/19 20:00 Nasal Cannula 3.0 Nasal Cannula 3.0 02/28/19 20:00 99.2 96 28 111/72 (85) 100 02/28/19 20:00 96 02/28/19 19:27 100 Nasal Cannula 2.0 28 02/28/19 19:00 101 25 105/72 (83) 100 02/28/19 18:00 106 28 111/79 (90) 99 Intake and Output 02/28/19 03/01/19 19:00 07:00 Intake Total 1130 ml 655 ml Output Total 1200 ml 1200 ml Balance -70 ml -545 ml Free Water 50 ml IV Total 720 ml 355 ml Tube Feeding 360 ml 0 ml Blood Product 300 ml Output Urine Total 1200 ml 1100 ml Stool Total 100 ml # Bowel Movements 100 Laboratory Tests 03/01/19 04:30: White Blood Count 17.7H, Red Blood Count 2.91L, Hemoglobin 9.0L, Hematocrit 27.8L, Mean Corpuscular Volume 95, Mean Corpuscular Hemoglobin 31.0, Mean Corpuscular Hemoglobin Concent 32.5, Red Cell Distribution Width 15.9H, Platelet Count 417, Mean Platelet Volume 6.0L, Neutrophils (%) (Auto) 69.0, Lymphocytes (%) (Auto) 10.0L, Monocytes (%) (Auto) 16.8H, Eosinophils (%) (Auto ) 2.3, Basophils (%) (Auto) 1.9, Prothrombin Time 16.1H, Prothromb Time International Ratio 1.5H, Activated Partial Thromboplast Time 39H, Sodium Level 146H, Potassium Level 3.5, Chloride Level 112H, Carbon Dioxide Level 25, Anion Gap 9, Blood Urea Nitrogen 20H, Creatinine 1.8H, Estimat Glomerular Filtration Rate 47.8, Glucose Level 90, Uric Acid 4.0, Calcium Level 8.0L, Phosphorus Level 3.8, Magnesium Level 2.1, Total Bilirubin 11.2H, Direct Bilirubin 9.2H, Gamma Glutamyl Transpeptidase 586H, Aspartate Amino Transf (AST/SGOT) 158H, Alanine Aminotransferase (ALT/SGPT) 55, Alkaline Phosphatase 281H, C-Reactive Protein, Quantitative 7.0H, Pro-B-Type Natriuretic Peptide 1723H, Total Protein 6.1L, Albumin 1.3L, Random Vancomycin Level 25.3 03/01/19 09:47: Arterial Blood pH 7.516H, Arterial Blood Partial Pressure CO2 31.8L, Arterial Blood Partial Pressure O2 100.0, Arterial Blood HCO3 25.2, Arterial Blood Oxygen Saturation 97.3, Arterial Blood Base Excess 2.5H, Cesar Test Positive Height (Feet): 5 Height (Inches): 5.00 Weight (Pounds): 170 Objective General appearance: extubated, calm Head: Normocephalic, without obvious abnormality, atraumatic Eyes: conjunctivae/corneas clear. PERRL, EOM's intact. Fundi benign Throat: Lips, mucosa, and tongue normal. Teeth and gums normal Neck: supple, symmetrical, trachea midline, no adenopathy, thyroid: not enlarged, symmetric, no tenderness/mass/nodules, no carotid bruit and no JVD Lungs: b/l air entry, no wheezing noted Heart: regular rate and rhythm, S1, S2 normal, no murmur, click, rub or gallop Abdomen: soft, non-tender. Bowel sounds normal. No masses, no organomegaly Extremities: extremities normal, atraumatic, no cyanosis or edema Pulses: 2+ and symmetric Skin: Skin color, texture, turgor normal. No rashes or lesions Neurologic: Grossly normal Lyn Cuevas MD Mar 01, 2019 17:49
--- NOTE | 2019-03-01 19:11 | NUR ---
HAND-OFF: Report given to Balaji BALBUENA. VS stable. Endorsed plan of care.
--- NOTE | 2019-03-01 19:30 | NUR ---
NURSE NOTES: Recvd.quiet in bed,awake confused and disoriented occ.Loud.Re-Oriented,Re-assured.Resp.unlabored.P.Ox-98-100% on 3l/NC inh.Lungs few scatt Rh.Enc.Deep breathing/couhing ex.See V/S.Scope SR-ST.denies CP.Pos chg.Made comfortable.NPO as ordered.[facility] for Poss.swallow eval.in am.F/Cath.patent diuresis well.
[2019-03-01] MEDS: Dyna-Hex 2% Top Sol 2oz TOPIC SCH (20:00)
--- NOTE | 2019-03-01 21:00 | Procedure Note ---
DATE OF PROCEDURE: 03/01/2019 PROCEDURE: Upper endoscopy with biopsy. SURGEON: Jones Bloom M.D. ANESTHESIA: Per Dr. Christopher. INSTRUMENT: Olympus adult flexible upper endoscope. INDICATION: Upper GI bleeding. REASON FOR PROCEDURE: The procedure, risks, benefits, and possible consequences, including hemorrhage, aspiration, perforation and infection, and alternative treatments, were explained to the patient/legal guardian by Dr. Jones Bloom and the patient/legal guardian understood and accepted these risks. DESCRIPTION OF PROCEDURE: After informed consent was obtained and the patient was adequately sedated, Olympus upper endoscope was advanced from mouth to the second portion of the duodenum and retroflexion was performed in the stomach. The patient had evidence of medium-sized hiatal hernia. No evidence of any esophageal or gastric varices. In the stomach, there was evidence of portal hypertensive gastropathy. Random biopsy from gastric body was obtained for diagnosis. The rest of the examination was grossly within normal limits. The patient tolerated the procedure very well without any complication. SUMMARY OF FINDINGS: 1. Medium-sized hiatal hernia. 2. Portal hypertensive gastropathy, status post biopsy. RECOMMENDATIONS: Follow up path. Resume diet. No evidence of any active GI bleeding at this time upper GI bleeding. Consider colonoscopy if needed. I want to thank Dr. Castrejon for this kind referral. Jones Bloom M.D. DR: URSZULA JOB#: [id number] CC: Diego Castrejon M.D.; Fax#: [phone]
[2019-03-01] MEDS: Phenylephrine 50 MG in D5W 245 ML IV SCH (22:30)
--- NOTE | 2019-03-01 22:30 | NUR ---
NURSE NOTES: HS Care provided.Pos. to comfort.Due med.recvd.PO meds crushed taken with some difficulty.Cont.to diuresis well See I/O.
[2019-03-02] VITALS (19 sets, daily range): BP systolic 104–122; BP diastolic 73–84
--- NOTE | 2019-03-02 00:10 | NUR ---
NURSE NOTES: Kept NPO clementine.for poss. swallow study in am.Pos. chg.Kept comfortable.No distress.
--- NOTE | 2019-03-02 02:00 | NUR ---
NURSE NOTES: Asleep.Resp. unlabored.Sat.96%.Status same.Cont.plan of care.
--- NOTE | 2019-03-02 05:00 | NUR ---
NURSE NOTES: romana Diaz.blood drawn for cbc/cmp vanco.etc.spec.to lab.VSS.Scope rhythm same.NO SZ.activity noted.Maintain NPO as ordered.Diuresis well.see I/O.
[2019-03-02 05:09] LABS: BASOPHILS % (AUTO) 1.6 % (0.0-2.0); EOSINOPHILS % (AUTO) 1.4 % (0.0-3.0); HEMATOCRIT 31.4 % (42.0-52.0); LYMPHOCYTES % (AUTO) 9.8 % (20.0-45.0); MEAN CORPUSCULAR VOLUME 95 FL (80-99); MONOCYTES % (AUTO) 15.1 % (1.0-10.0); NEUTROPHILS % (AUTO) 72.1 % (45.0-75.0); PLATELET COUNT 423 K/UL (150-450); RED BLOOD COUNT 3.29 M/UL (4.70-6.10); RED CELL DISTRIBUTION WIDTH 16.6 % (11.6-14.8); WHITE BLOOD COUNT 16.4 K/UL (4.8-10.8)
[2019-03-02 06:15] LABS: ALANINE AMINOTRANSFERASE 52 U/L (12-78); ALBUMIN 1.2 G/DL (3.4-5.0); ALBUMIN/GLOBULIN RATIO 0.2 (1.0-2.7); ALKALINE PHOSPHATASE 281 U/L (46-116); ANION GAP 11 mmol/L (5-15); ASPARTATE AMINO TRANSFERASE 146 U/L (15-37); BLOOD UREA NITROGEN 26 mg/dL (7-18); CALCIUM 8.1 MG/DL (8.5-10.1); CARBON DIOXIDE 24 MMOL/L (21-32); CHLORIDE 113 MMOL/L (98-107); CREATININE 1.9 MG/DL (0.55-1.30); POTASSIUM 3.3 MMOL/L (3.5-5.1); SODIUM 148 MMOL/L (136-145)
[2019-03-02 06:20] LABS: BILIRUBIN,DIRECT 8.8 MG/DL (0.0-0.3)
[2019-03-02] MEDS ORDERED: Vancomycin 1gm/D5W 275ml IVPB SCH ×4 (06:30)
--- NOTE | 2019-03-02 07:31 | NUR ---
HAND-OFF: Report given to ESHA JUDD.
--- NOTE | 2019-03-02 07:40 | NUR ---
NURSE NOTES: Received report from Balaji BALBUENA. Pt is resting in bed. Awakens to name. Pt AOx1 to name, bouts of confusion. pt connected to surveillance monitor ST 104. pt on 3L 02 via NC with O2sat at 96%. Lung upon auscultation bilateral rhonchi. Bounding radial pulse and weak peripheral pulses via palpation. Cap refill <3sec. Non pitting edema noted on lower extremities. Per order pt NPO pending swallow eval by speech therapist. IV access, double lumen PICC,TKO, patent and intact. Abdomen is round, soft, nontender. Hypoactive bowel sounds in all four quadrants. Rectal tube in place, draining liquid brown/greenish stool. Aguilar catheter is in place, draining light eneida urine. Bilateral soft wrist restraints noted for safety. circulation check and passive ROM. Bilateral SCDS on. Bed is locked, in lowest position. HOB>30. call light within reach. SZ precautions in place. Will continue to monitor pt.
--- NOTE | 2019-03-02 07:45 | NUR ---
NURSE NOTES: Radiology here to do CXR.
--- NOTE | 2019-03-02 08:18 | NUR ---
NURSE NOTES: MD. ESPAÑA HERE TO SEE PT. NO NEW ORDERS AT THIS TIME. Addendum: 03/02/19 at 1353 by Olivia Marks RN KCL 10 MEQ ADMINISTERED VIA IVP. A.M K 3.3
[2019-03-02] MEDS ORDERED: Cefepime 2gm/D5W 110ml IV SCH ×2 (09:00)
[2019-03-02] MEDS: Lactobacillus-GG tablet ORAL SCH ×2 (09:03→20:46)
[2019-03-02] MEDS: levETIRAcetam 500mg/NS100ml 100 ML IVPB SCH ×2 (09:03→20:47)
[2019-03-02] MEDS: Thiamine 100mg tab NG SCH (09:03)
[2019-03-02 09:05] LABS: PHOSPHORUS 4.7 MG/DL (2.5-4.9)
--- NOTE | 2019-03-02 09:24 | Hematology/Onc Progress Note ---
Assessment/Plan Assessment/Plan # Bicytopenia with anemia likely due to Gi bleed -- stool occult blood +, requires further eval with gi, also with etoh withdrawal, also can be related to meds/abx, Hida shows Limited hepatic uptake and excretion, probably due to hepatocellular disease. Note that previous imaging studies suggest the presence of cirrhotic changes. --> anemia panel has been reviewed and results are acd --> peripheral smear reviewed and not noted to have blasts --> wbc remains elevated --> started on folate 1mg po daily (LOW FOLATE) --> Flow cytometry shows no evidence of b-lymphoproliferative disorder --> Hep panel negative # Anemia of chronic disease, per anemia panel --> hgb trend 8-->7-->8-->9-->8.6-->7.7-->7.9-->8.3-->7.9->8.5-->9-->10 --> may require gi eval when more stable with scope (EGD) --> transfuse if hb <7 --> cont folic acid and thiamine # Leukocytosis due to Septic shock and severe Lactic acidosis on Levophed and broad-spectrum IV antibiotics. --> per ID care, continue abx --> pressor as needed --> vanc/zosyn, flucon --> Hgb trend: 34.9 -->28k-->35k-->17k # Sinus tachycardia up to 170s. No evidence of acute myocardial infarction . --> This is likely due to sepsis and anemia, alcohol withdrawal --> Echo Nl EF 60% # Troponin leak, type 2. --> per cards # Respiratory failure on the vent. Failed weaning --> sbt trial per pulm, now extubated --> 02/27 the bronchoscope was advanced into both mainstem bronchi and subsegmental bronchi. There was increased secretions bilaterally, mucopurulent including mucus plugging of the right upper lobe, which was therapeutically aspirated. BAL specimen was sent. # Transaminitis with elev bilis --> as per gi with ast/alt high --> monitor for resol of sepsis # ETOH withdrawal --> recommend etoh cessation # Seizures with noncompliance Greatly appreciate consultation. Subjective Constitutional: Denies: no symptoms, chills, fever, malaise, weakness, other HEENT: Denies: no symptoms, eye pain, blurred vision, tearing, double vision, ear pain, ear discharge, nose pain, nose congestion, throat pain, throat swelling, mouth pain, mouth swelling, other Respiratory: Denies: no symptoms, cough, shortness of breath, SOB with excertion, SOB at rest, sputum, wheezing, other Gastrointestinal/Abdominal: Denies: no symptoms, abdomen distended, abdominal pain, black stools, tarry stools, blood in stool, constipated, diarrhea, difficulty swallowing, nausea, poor appetite, poor fluid intake, rectal bleeding , vomiting, other Genitourinary: Denies: no symptoms, burning, discharge, frequency, flank pain, hematuria, incontinence, pain, urgency, other Neurologic/Psychiatric: Denies: no symptoms, anxiety, depressed, emotional problems, headache, numbness, paresthesia, pre-existing deficit, seizure, tingling, tremors, weakness, other Endocrine: Denies: no symptoms, excessive sweating, flushing, intolerance to cold, intolerance to heat, increased hunger, increased thirst, increased urine, unexplained weight gain, unexplained weight loss, other Allergies: Coded Allergies: No Known Allergies (Unverified , 02/10/15) Subjective 02/20: intubated, counts are better, on vent, sbt in process, no f/c, mag low 02/21: endoscopy on hold at this time, bloody stool, plt better, on abx 02/22: no events reported, remains intubated, no bleeding, plt better, k is low, repleted\ 02/23: remains in icu, letargic, flow cytometry showed no evidence of b- lymphoproliferative disorder, c-diif negative, labs reviewed, remains on levo 02/24: in icu, on vent, wbc at 32, id made aware. 02/25: icu, weaning off of vent, labs reviewed, continues on abx 02/26: no fc, no changes reported, wbc high, ongoing hida scan 02/27: no events, bronch to be done today, results pending 02/28: no f/c, restraints++, ogt was inserted 03/01: s/p extubation, self-extubated, otherwise on abx, off pressors 03/02: no events too report, labs have been reviewed, off abx, remains agitated Objective Objective Current Medications Medications (Trade) Dose Ordered Sig/Tonny Route PRN Reason Start Time Stop Time Status Last Admin Dose Admin Acetaminophen (Tylenol) 650 mg Q4H PRN ORAL Mild Pain (Pain Scale 1-3) 02/16/19 00:30 03/16/19 12:29 02/17/19 04:53 Acetaminophen (Tylenol) 650 mg Q4H PRN RECTAL Mild Pain (Pain Scale 1-3) 02/16/19 04:30 03/18/19 04:29 02/16/19 04:31 Cefepime HCl 2 gm/ Dextrose 110 ml @ 220 mls/hr Q24H IV 03/02/19 09:00 03/09/19 08:59 03/02/19 09:03 Chlorhexidine Gluconate (Stephanie-Hex 2%) 1 applic DAILY@2000 TOPIC 02/19/19 20:00 03/21/19 19:59 03/01/19 20:00 Dextrose (Dextrose 50%) 25 ml Q30M PRN IV Hypoglycemia 02/15/19 22:15 03/16/19 16:14 Dextrose (Dextrose 50%) 50 ml Q30M PRN IV Hypoglycemia 02/15/19 22:15 03/16/19 16:14 02/16/19 06:32 Lactobacillus Acidophilus (Culturelle) 1 tab EVERY 12 HOURS ORAL 02/25/19 21:00 03/26/19 17:59 03/02/19 09:03 Lansoprazole (Prevacid) 30 mg EVERY 12 HOURS NG 02/25/19 21:00 03/26/19 17:59 03/02/19 09:03 Levetiracetam 100 ml @ 400 mls/hr Q12HR IVPB 02/19/19 09:00 03/21/19 08:59 03/02/19 09:03 Lorazepam (Ativan 2mg/ml 1ml) 1 mg Q4H PRN IV For Anxiety 02/25/19 11:00 03/04/19 10:59 02/27/19 14:34 Metronidazole 100 ml @ 100 mls/hr Q8HR IVPB 02/25/19 14:00 03/04/19 13:59 03/02/19 05:33 Micafungin Sodium 100 mg/Sodium Chloride 110 ml @ 110 mls/hr Q24H IVPB 02/25/19 10:30 03/04/19 10:29 03/01/19 10:12 Norepinephrine Bitartrate 8 mg/ Dextrose 508 ml @ 0 mls/hr Q24H IV 02/16/19 09:30 03/18/19 09:29 02/23/19 09:37 Ondansetron HCl (Zofran) 4 mg Q6H PRN IVP Nausea & Vomiting 02/16/19 01:00 03/16/19 12:59 02/24/19 18:50 Phenylephrine HCl 50 mg/Dextrose 250 ml @ 0 mls/hr Q24H IV 02/16/19 22:30 03/18/19 22:29 Potassium Chloride 100 ml @ 100 mls/hr Q1H IV 03/02/19 08:15 03/02/19 12:14 03/02/19 09:02 Thiamine HCl (Vitamin B1) 100 mg DAILY NG 02/25/19 09:00 03/27/19 08:59 03/02/19 09:03 Vancomycin HCl (Vanco rx to dose) 1 ea DAILY PRN MISC Per rx protocol 02/16/19 09:00 03/17/19 12:59 Last 24 Hour Vital Signs Date Time Temp Pulse Resp B/P (MAP) Pulse Ox O2 Delivery O2 Flow Rate FiO2 03/02/19 09:04 107/75 03/02/19 08:00 102 27 107/75 (86) 97 03/02/19 07:00 107 26 122/74 (90) 96 03/02/19 06:00 109 28 112/78 (89) 96 03/02/19 05:00 106 26 110/80 (90) 96 03/02/19 04:00 100 03/02/19 04:00 98.2 100 31 108/77 (87) 98 03/02/19 04:00 Nasal Cannula 3.0 Nasal Cannula 3.0 03/02/19 03:00 106 29 109/76 (87) 96 03/02/19 02:00 106 29 110/78 (89) 96 03/02/19 01:00 102 31 108/74 (85) 96 03/02/19 00:00 97.8 100 28 107/73 (84) 96 03/02/19 00:00 Nasal Cannula 3.0 Nasal Cannula 3.0 03/02/19 00:00 102 03/01/19 23:00 98 30 103/77 (86) 96 03/01/19 22:30 101 113/68 03/01/19 22:00 101 26 113/68 (83) 98 03/01/19 21:30 99 Nasal Cannula 2.0 28 03/01/19 21:00 104 26 108/70 (83) 99 03/01/19 20:00 97.6 102 30 109/75 (86) 98 03/01/19 20:00 Nasal Cannula 3.0 Nasal Cannula 3.0 03/01/19 20:00 102 03/01/19 19:00 102 26 112/73 (86) 99 03/01/19 18:00 100 27 112/76 (88) 97 03/01/19 17:00 101 29 109/80 (90) 97 03/01/19 16:00 95 03/01/19 16:00 Nasal Cannula 3.0 Nasal Cannula 3.0 03/01/19 16:00 97.5 97 28 111/74 (86) 99 03/01/19 15:00 99 21 115/81 (92) 100 03/01/19 14:00 100 32 109/79 (89) 99 03/01/19 13:30 103 29 109/79 (89) 100 03/01/19 13:00 106 21 104/67 (79) 96 03/01/19 12:58 86 22 96 03/01/19 12:00 103 03/01/19 12:00 98.6 100 30 107/73 (84) 100 03/01/19 12:00 Nasal Cannula 3.0 Nasal Cannula 3.0 03/01/19 11:00 98 28 114/76 (89) 98 03/01/19 10:00 104 26 109/76 (87) 98 03/01/19 09:00 98 30 116/77 (90) 98 03/01/19 08:00 98.8 107 21 110/70 (83) 99 03/01/19 08:00 106 03/01/19 08:00 Nasal Cannula 3.0 Nasal Cannula 3.0 03/01/19 07:00 100 31 114/77 (89) 99 03/01/19 06:00 106 20 114/77 (89) 99 03/01/19 05:00 103 20 103/73 (83) 99 03/01/19 04:00 Nasal Cannula 3.0 Nasal Cannula 3.0 03/01/19 04:00 103 03/01/19 04:00 98.3 82 20 113/78 (90) 97 03/01/19 03:00 99 28 109/74 (86) 97 03/01/19 02:00 96 32 113/74 (87) 97 03/01/19 01:00 95 31 108/76 (87) 97 03/01/19 00:00 98.4 93 28 111/79 (90) 98 03/01/19 00:00 93 03/01/19 00:00 Nasal Cannula 3.0 Nasal Cannula 3.0 02/28/19 23:00 93 28 112/78 (89) 100 02/28/19 22:30 93 111/79 02/28/19 22:00 97 31 114/75 (88) 97 02/28/19 21:00 100 30 110/70 (83) 97 02/28/19 20:00 Nasal Cannula 3.0 Nasal Cannula 3.0 02/28/19 20:00 99.2 96 28 111/72 (85) 100 02/28/19 20:00 96 02/28/19 19:27 100 Nasal Cannula 2.0 28 02/28/19 19:00 101 25 105/72 (83) 100 02/28/19 18:00 106 28 111/79 (90) 99 02/28/19 17:00 106 28 101/68 (79) 100 02/28/19 16:20 Venturi Mask 02/28/19 16:15 Venturi Mask 12.0 40 02/28/19 16:15 98 Cool Aerosol 12.0 40 02/28/19 16:15 40 02/28/19 16:00 104 02/28/19 16:00 98.3 104 23 113/77 (89) 100 02/28/19 16:00 35 02/28/19 16:00 Mechanical Ventilator 02/28/19 15:13 103 33 35 35 02/28/19 15:00 110 36 109/74 (86) 100 02/28/19 14:00 102 26 116/76 (89) 100 02/28/19 13:00 104 26 116/85 (95) 100 02/28/19 12:39 97 32 35 35 02/28/19 12:09 100 02/28/19 12:00 Mechanical Ventilator 02/28/19 12:00 98.0 103 32 97/74 (82) 97 02/28/19 11:30 35 02/28/19 11:30 96 31 35 02/28/19 11:00 102 25 113/78 (90) 100 02/28/19 10:45 95 30 35 02/28/19 10:00 102 38 117/76 (90) 100 Intake and Output 03/01/19 03/02/19 18:59 06:59 Intake Total 420 ml 300 ml Output Total 860 ml 780 ml Balance -440 ml -480 ml IV Total 420 ml 300 ml Tube Feeding 0 ml 0 ml Output Urine Total 860 ml 780 ml # Bowel Movements 40 Labs Test 02/27/19 10:30 02/27/19 15:00 02/28/19 05:00 02/28/19 07:15 White Blood Count 28.4 K/UL (4.8-10.8) 22.2 K/UL (4.8-10.8) Red Blood Count 2.65 M/UL (4.70-6.10) 2.36 M/UL (4.70-6.10) Hemoglobin 8.5 G/DL (14.2-18.0) 7.5 G/DL (14.2-18.0) Hematocrit 26.3 % (42.0-52.0) 23.0 % (42.0-52.0) Mean Corpuscular Volume 99 FL (80-99) 98 FL (80-99) Mean Corpuscular Hemoglobin 32.0 PG (27.0-31.0) 31.9 PG (27.0-31.0) Mean Corpuscular Hemoglobin Concent 32.3 G/DL (32.0-36.0) 32.7 G/DL (32.0-36.0) Red Cell Distribution Width 16.0 % (11.6-14.8) 15.4 % (11.6-14.8) Platelet Count 479 K/UL (150-450) 440 K/UL (150-450) Mean Platelet Volume 6.3 FL (6.5-10.1) 6.4 FL (6.5-10.1) Neutrophils (%) (Auto) % (45.0-75.0) % (45.0-75.0) Lymphocytes (%) (Auto) % (20.0-45.0) % (20.0-45.0) Monocytes (%) (Auto) % (1.0-10.0) % (1.0-10.0) Eosinophils (%) (Auto) % (0.0-3.0) % (0.0-3.0) Basophils (%) (Auto) % (0.0-2.0) % (0.0-2.0) Differential Total Cells Counted 100 100 Neutrophils % (Manual) 76 % (45-75) 73 % (45-75) Lymphocytes % (Manual) 10 % (20-45) 9 % (20-45) Monocytes % (Manual) 9 % (1-10) 12 % (1-10) Eosinophils % (Manual) 2 % (0-3) 0 % (0-3) Basophils % (Manual) 2 % (0-2) 0 % (0-2) Band Neutrophils 1 % (0-8) 6 % (0-8) Platelet Estimate Adequate Adequate Platelet Morphology Normal Normal Hypochromasia 2+ 1+ Anisocytosis 1+ 1+ Sodium Level 139 MMOL/L (136-145) 142 MMOL/L (136-145) Potassium Level 2.3 MMOL/L (3.5-5.1) 4.0 MMOL/L (3.5-5.1) Chloride Level 111 MMOL/L (98-107) 110 MMOL/L (98-107) Carbon Dioxide Level 24 MMOL/L (21-32) 28 MMOL/L (21-32) Anion Gap 4 mmol/L (5-15) 4 mmol/L (5-15) Blood Urea Nitrogen 4 mg/dL (7-18) 14 mg/dL (7-18) Creatinine 0.5 MG/DL (0.55-1.30) 1.3 MG/DL (0.55-1.30) Estimat Glomerular Filtration Rate > 60 mL/min (>60) > 60 mL/min (>60) Glucose Level 211 MG/DL (74-106) 123 MG/DL (74-106) Calcium Level 6.2 MG/DL (8.5-10.1) 7.8 MG/DL (8.5-10.1) Ionized Calcium (Measured) 1.04 mmol/L (1.10-1.35) Phosphorus Level 2.2 MG/DL (2.5-4.9) 3.5 MG/DL (2.5-4.9) Magnesium Level 1.3 MG/DL (1.8-2.4) 2.5 MG/DL (1.8-2.4) Total Bilirubin 0.6 MG/DL (0.2-1.0) 11.1 MG/DL (0.2-1.0) Direct Bilirubin 0.2 MG/DL (0.0-0.3) 9.7 MG/DL (0.0-0.3) Aspartate Amino Transf (AST/SGOT) 18 U/L (15-37) 175 U/L (15-37) Alanine Aminotransferase (ALT/SGPT) 11 U/L (12-78) 60 U/L (12-78) Alkaline Phosphatase 119 U/L (46-116) 288 U/L (46-116) Total Protein 7.0 G/DL (6.4-8.2) 5.9 G/DL (6.4-8.2) Albumin 2.5 G/DL (3.4-5.0) 1.3 G/DL (3.4-5.0) Body Fluid Source Bronchial lavage Body Fluid Volume 25 mL Body Fluid Appearance Hazy (Clear) Body Fluid RBC 5169 /CUMM Body Fluid Total Nucleated Cells 4635 /CUMM Body Fluid Polynuclear WBCs (%) 92 % Body Fluid Mononuclear WBCs (%) 6 % Body Fluid Mesothelial Cells (%) 2 % Macrocytosis 1+ Uric Acid 3.0 MG/DL (2.6-7.2) C-Reactive Protein, Quantitative 7.4 mg/dL (0.00-0.90) Pro-B-Type Natriuretic Peptide 2134 pg/mL (0-125) Globulin 4.6 g/dL Albumin/Globulin Ratio 0.3 (1.0-2.7) Test 02/28/19 09:15 03/01/19 04:30 03/01/19 09:47 03/02/19 05:00 Vancomycin Level Trough 32.5 ug/mL (5.0-12.0) White Blood Count 17.7 K/UL (4.8-10.8) 16.4 K/UL (4.8-10.8) Red Blood Count 2.91 M/UL (4.70-6.10) 3.29 M/UL (4.70-6.10) Hemoglobin 9.0 G/DL (14.2-18.0) 10.0 G/DL (14.2-18.0) Hematocrit 27.8 % (42.0-52.0) 31.4 % (42.0-52.0) Mean Corpuscular Volume 95 FL (80-99) 95 FL (80-99) Mean Corpuscular Hemoglobin 31.0 PG (27.0-31.0) 30.5 PG (27.0-31.0) Mean Corpuscular Hemoglobin Concent 32.5 G/DL (32.0-36.0) 31.9 G/DL (32.0-36.0) Red Cell Distribution Width 15.9 % (11.6-14.8) 16.6 % (11.6-14.8) Platelet Count 417 K/UL (150-450) 423 K/UL (150-450) Mean Platelet Volume 6.0 FL (6.5-10.1) 5.8 FL (6.5-10.1) Neutrophils (%) (Auto) 69.0 % (45.0-75.0) 72.1 % (45.0-75.0) Lymphocytes (%) (Auto) 10.0 % (20.0-45.0) 9.8 % (20.0-45.0) Monocytes (%) (Auto) 16.8 % (1.0-10.0) 15.1 % (1.0-10.0) Eosinophils (%) (Auto) 2.3 % (0.0-3.0) 1.4 % (0.0-3.0) Basophils (%) (Auto) 1.9 % (0.0-2.0) 1.6 % (0.0-2.0) Prothrombin Time 16.1 SEC (9.30-11.50) Prothromb Time International Ratio 1.5 (0.9-1.1) Activated Partial Thromboplast Time 39 SEC (23-33) Sodium Level 146 MMOL/L (136-145) 148 MMOL/L (136-145) Potassium Level 3.5 MMOL/L (3.5-5.1) 3.3 MMOL/L (3.5-5.1) Chloride Level 112 MMOL/L (98-107) 113 MMOL/L (98-107) Carbon Dioxide Level 25 MMOL/L (21-32) 24 MMOL/L (21-32) Anion Gap 9 mmol/L (5-15) 11 mmol/L (5-15) Blood Urea Nitrogen 20 mg/dL (7-18) 26 mg/dL (7-18) Creatinine 1.8 MG/DL (0.55-1.30) 1.9 MG/DL (0.55-1.30) Estimat Glomerular Filtration Rate 47.8 mL/min (>60) 44.8 mL/min (>60) Glucose Level 90 MG/DL (74-106) 90 MG/DL (74-106) Uric Acid 4.0 MG/DL (2.6-7.2) Calcium Level 8.0 MG/DL (8.5-10.1) 8.1 MG/DL (8.5-10.1) Phosphorus Level 3.8 MG/DL (2.5-4.9) 4.7 MG/DL (2.5-4.9) Magnesium Level 2.1 MG/DL (1.8-2.4) 2.0 MG/DL (1.8-2.4) Total Bilirubin 11.2 MG/DL (0.2-1.0) 11.0 MG/DL (0.2-1.0) Direct Bilirubin 9.2 MG/DL (0.0-0.3) 8.8 MG/DL (0.0-0.3) Gamma Glutamyl Transpeptidase 586 U/L (5-85) Aspartate Amino Transf (AST/SGOT) 158 U/L (15-37) 146 U/L (15-37) Alanine Aminotransferase (ALT/SGPT) 55 U/L (12-78) 52 U/L (12-78) Alkaline Phosphatase 281 U/L (46-116) 281 U/L (46-116) C-Reactive Protein, Quantitative 7.0 mg/dL (0.00-0.90) Pro-B-Type Natriuretic Peptide 1723 pg/mL (0-125) Total Protein 6.1 G/DL (6.4-8.2) 6.2 G/DL (6.4-8.2) Albumin 1.3 G/DL (3.4-5.0) 1.2 G/DL (3.4-5.0) Random Vancomycin Level 25.3 ug/mL 18.3 ug/mL Arterial Blood pH 7.516 (7.350-7.450) Arterial Blood Partial Pressure CO2 31.8 mmHg (35.0-45.0) Arterial Blood Partial Pressure O2 100.0 mmHg (75.0-100.0) Arterial Blood HCO3 25.2 mmol/L (22.0-26.0) Arterial Blood Oxygen Saturation 97.3 % (95-100) Arterial Blood Base Excess 2.5 (-2-2) Cesar Test Positive Globulin 5.0 g/dL Albumin/Globulin Ratio 0.2 (1.0-2.7) Height (Feet): 5 Height (Inches): 5.00 Weight (Pounds): 170 Objective Gen: NAD HEENT: atraumatic, other - OGT Lungs: clear, ++nc 2l Heart: HR/BP unstable Abdomen: soft, non-tender, active bowel sounds Extremities: no cce, L femoral cath+ Robert Johnston MD Mar 02, 2019 09:24
--- NOTE | 2019-03-02 09:26 | Nephrology Progress Note ---
Assessment/Plan Problem List: (1) STEFANI (acute kidney injury) Assessment: Cr lower (2) Septic shock (3) Electrolyte and fluid disorder (4) Abnormal LFTs Assessment: fatty liver (5) Hyperbilirubinemia Assessment - STEFANI (acute kidney injury) - Septic shock - Lactic acid acidosis - Abnormal LFTs - Gastrointestinal bleed - Alcohol withdrawal seizure Plan K and Mag and Phos supplement as needed discussed with RN PRN Albumin bolus for low bp Midodrine post extubation care start feeding Hemodynamic support Pressors / Fluids as needed Aim to correct the electrolyte and acid base imbalance monitor renal parameters gastric support switch dilantin to keppra as LFTs rising per orders Subjective ROS Limited/Unobtainable: No Constitutional: Reports: malaise, weakness Objective Objective Last 24 Hour Vital Signs Date Time Temp Pulse Resp B/P (MAP) Pulse Ox O2 Delivery O2 Flow Rate FiO2 03/02/19 09:04 107/75 03/02/19 08:00 102 27 107/75 (86) 97 03/02/19 07:00 107 26 122/74 (90) 96 03/02/19 06:00 109 28 112/78 (89) 96 03/02/19 05:00 106 26 110/80 (90) 96 03/02/19 04:00 100 03/02/19 04:00 98.2 100 31 108/77 (87) 98 03/02/19 04:00 Nasal Cannula 3.0 Nasal Cannula 3.0 03/02/19 03:00 106 29 109/76 (87) 96 03/02/19 02:00 106 29 110/78 (89) 96 03/02/19 01:00 102 31 108/74 (85) 96 03/02/19 00:00 97.8 100 28 107/73 (84) 96 03/02/19 00:00 Nasal Cannula 3.0 Nasal Cannula 3.0 03/02/19 00:00 102 03/01/19 23:00 98 30 103/77 (86) 96 03/01/19 22:30 101 113/68 03/01/19 22:00 101 26 113/68 (83) 98 03/01/19 21:30 99 Nasal Cannula 2.0 28 03/01/19 21:00 104 26 108/70 (83) 99 03/01/19 20:00 97.6 102 30 109/75 (86) 98 7/25/19 20:00 Nasal Cannula 3.0 Nasal Cannula 3.0 03/01/19 20:00 102 03/01/19 19:00 102 26 112/73 (86) 99 03/01/19 18:00 100 27 112/76 (88) 97 03/01/19 17:00 101 29 109/80 (90) 97 03/01/19 16:00 95 03/01/19 16:00 Nasal Cannula 3.0 Nasal Cannula 3.0 03/01/19 16:00 97.5 97 28 111/74 (86) 99 03/01/19 15:00 99 21 115/81 (92) 100 03/01/19 14:00 100 32 109/79 (89) 99 03/01/19 13:30 103 29 109/79 (89) 100 03/01/19 13:00 106 21 104/67 (79) 96 03/01/19 12:58 86 22 96 03/01/19 12:00 103 03/01/19 12:00 98.6 100 30 107/73 (84) 100 03/01/19 12:00 Nasal Cannula 3.0 Nasal Cannula 3.0 03/01/19 11:00 98 28 114/76 (89) 98 03/01/19 10:00 104 26 109/76 (87) 98 Intake and Output 03/01/19 03/02/19 18:59 06:59 Intake Total 420 ml 300 ml Output Total 860 ml 780 ml Balance -440 ml -480 ml IV Total 420 ml 300 ml Tube Feeding 0 ml 0 ml Output Urine Total 860 ml 780 ml # Bowel Movements 40 Laboratory Tests 03/01/19 09:47: Arterial Blood pH 7.516H, Arterial Blood Partial Pressure CO2 31.8L, Arterial Blood Partial Pressure O2 100.0, Arterial Blood HCO3 25.2, Arterial Blood Oxygen Saturation 97.3, Arterial Blood Base Excess 2.5H, Cesar Test Positive 03/02/19 05:00: White Blood Count 16.4H, Red Blood Count 3.29L, Hemoglobin 10.0L, Hematocrit 31.4L, Mean Corpuscular Volume 95, Mean Corpuscular Hemoglobin 30.5, Mean Corpuscular Hemoglobin Concent 31.9L, Red Cell Distribution Width 16.6H, Platelet Count 423, Mean Platelet Volume 5.8L, Neutrophils (%) (Auto) 72.1, Lymphocytes (%) (Auto) 9.8L, Monocytes (%) (Auto) 15.1H, Eosinophils (%) (Auto) 1.4, Basophils (%) (Auto) 1.6, Sodium Level 148H, Potassium Level 3.3L, Chloride Level 113H, Carbon Dioxide Level 24, Anion Gap 11, Blood Urea Nitrogen 26H, Creatinine 1.9H, Estimat Glomerular Filtration Rate 44.8, Glucose Level 90 , Calcium Level 8.1L, Phosphorus Level 4.7, Magnesium Level 2.0, Total Bilirubin 11.0H, Direct Bilirubin 8.8H, Aspartate Amino Transf (AST/SGOT) 146H, Alanine Aminotransferase (ALT/SGPT) 52, Alkaline Phosphatase 281H, Total Protein 6.2L, Albumin 1.2L, Globulin 5.0, Albumin/Globulin Ratio 0.2L, Random Vancomycin Level 18.3 Height (Feet): 5 Height (Inches): 5.00 Weight (Pounds): 170 General Appearance: no apparent distress EENT: other - cannula Cardiovascular: tachycardia Respiratory/Chest: decreased breath sounds Abdomen: distended Objective no change Scotty Bailon MD Mar 02, 2019 09:26
--- NOTE | 2019-03-02 09:37 | NUR ---
NURSE NOTES: Dietitian here to see pt. Pt response unreliable unreliable. Addendum: 03/02/19 at 1354 by Olivia Marks RN KCL 10 MEQ ADMINISTERED VIA IVP. A.M K 3.3
--- NOTE | 2019-03-02 10:34 | NUR ---
NURSE NOTES: KCL 10 MEQ ADMINISTERED VIA IVP. A.M K 3.3
--- NOTE | 2019-03-02 11:11 | GI Progress Note ---
Assessment/Plan Problems: (1) Coffee ground emesis ICD Codes: K92.0 - Hematemesis SNOMED: 00564355 (2) Episode of confusion ICD Codes: R41.0 - Disorientation, unspecified SNOMED: 17526153 (3) Gastrointestinal bleed ICD Codes: K92.2 - Gastrointestinal hemorrhage, unspecified SNOMED: 21102333 (4) Abnormal LFTs ICD Codes: R94.5 - Abnormal results of liver function studies SNOMED: 180735023 (5) Diarrhea ICD Codes: R19.7 - Diarrhea, unspecified SNOMED: 91597838 (6) Electrolyte and fluid disorder ICD Codes: E87.8 - Other disorders of electrolyte and fluid balance, not elsewhere classified SNOMED: 39048454 (7) Sepsis ICD Codes: A41.9 - Sepsis, unspecified organism SNOMED: 13589676 Status: progressing Status Narrative Discussed with Dr. Bloom. Assessment/Plan SUMMARY OF FINDINGS: 1. Medium-sized hiatal hernia. 2. Portal hypertensive gastropathy, status post biopsy. US reviewed >> liver disease/cirrhosis with ascites. Assessment - Resp failure - diarrhea - UGIB - abnormal LFT, negative hepatitis serologies, s/p U/S x 2 (no biliary dilation) - ? cirrhosis and sepsis/hypoperfusion - h/o EtOH, possible early cirrhosis RECOMMENDATIONS: Follow up path. Check HSV IgM Check CMV Quant PCR Check EBV IGM No evidence of any active GI bleeding at this time. consider colonoscopy if needed. low dose lactulose + xifaxan will consider paracentesis OB stool r/o GI bleed - positive prn transfusions follow labs The patient was seen and examined at bedside and all new and available data was reviewed in the patients chart. I agree with the above findings, impression and plan. (Patient seen earlier today. Signature stamp does not reflect patient encounter time.). - Jones Bloom MD Subjective Subjective limited Objective Last 24 Hour Vital Signs Date Time Temp Pulse Resp B/P (MAP) Pulse Ox O2 Delivery O2 Flow Rate FiO2 03/02/19 09:04 107/75 03/02/19 08:00 Nasal Cannula 3.0 Nasal Cannula 3.0 03/02/19 08:00 102 27 107/75 (86) 97 03/02/19 07:00 107 26 122/74 (90) 96 03/02/19 06:00 109 28 112/78 (89) 96 03/02/19 05:00 106 26 110/80 (90) 96 03/02/19 04:00 100 03/02/19 04:00 98.2 100 31 108/77 (87) 98 03/02/19 04:00 Nasal Cannula 3.0 Nasal Cannula 3.0 03/02/19 03:00 106 29 109/76 (87) 96 03/02/19 02:00 106 29 110/78 (89) 96 03/02/19 01:00 102 31 108/74 (85) 96 03/02/19 00:00 97.8 100 28 107/73 (84) 96 03/02/19 00:00 Nasal Cannula 3.0 Nasal Cannula 3.0 03/02/19 00:00 102 03/01/19 23:00 98 30 103/77 (86) 96 03/01/19 22:30 101 113/68 03/01/19 22:00 101 26 113/68 (83) 98 03/01/19 21:30 99 Nasal Cannula 2.0 28 03/01/19 21:00 104 26 108/70 (83) 99 03/01/19 20:00 97.6 102 30 109/75 (86) 98 03/01/19 20:00 Nasal Cannula 3.0 Nasal Cannula 3.0 03/01/19 20:00 102 03/01/19 19:00 102 26 112/73 (86) 99 03/01/19 18:00 100 27 112/76 (88) 97 03/01/19 17:00 101 29 109/80 (90) 97 03/01/19 16:00 95 03/01/19 16:00 Nasal Cannula 3.0 Nasal Cannula 3.0 03/01/19 16:00 97.5 97 28 111/74 (86) 99 03/01/19 15:00 99 21 115/81 (92) 100 03/01/19 14:00 100 32 109/79 (89) 99 03/01/19 13:30 103 29 109/79 (89) 100 03/01/19 13:00 106 21 104/67 (79) 96 03/01/19 12:58 86 22 96 03/01/19 12:00 103 03/01/19 12:00 98.6 100 30 107/73 (84) 100 03/01/19 12:00 Nasal Cannula 3.0 Nasal Cannula 3.0 Intake and Output 03/01/19 03/02/19 19:00 07:00 Intake Total 420 ml 300 ml Output Total 850 ml 780 ml Balance -430 ml -480 ml IV Total 420 ml 300 ml Tube Feeding 0 ml 0 ml Output Urine Total 850 ml 780 ml # Bowel Movements 40 Laboratory Tests Test 03/02/19 05:00 White Blood Count 16.4 K/UL (4.8-10.8) H Red Blood Count 3.29 M/UL (4.70-6.10) L Hemoglobin 10.0 G/DL (14.2-18.0) L Hematocrit 31.4 % (42.0-52.0) L Mean Corpuscular Volume 95 FL (80-99) Mean Corpuscular Hemoglobin 30.5 PG (27.0-31.0) Mean Corpuscular Hemoglobin Concent 31.9 G/DL (32.0-36.0) L Red Cell Distribution Width 16.6 % (11.6-14.8) H Platelet Count 423 K/UL (150-450) Mean Platelet Volume 5.8 FL (6.5-10.1) L Neutrophils (%) (Auto) 72.1 % (45.0-75.0) Lymphocytes (%) (Auto) 9.8 % (20.0-45.0) L Monocytes (%) (Auto) 15.1 % (1.0-10.0) H Eosinophils (%) (Auto) 1.4 % (0.0-3.0) Basophils (%) (Auto) 1.6 % (0.0-2.0) Sodium Level 148 MMOL/L (136-145) H Potassium Level 3.3 MMOL/L (3.5-5.1) L Chloride Level 113 MMOL/L (98-107) H Carbon Dioxide Level 24 MMOL/L (21-32) Anion Gap 11 mmol/L (5-15) Blood Urea Nitrogen 26 mg/dL (7-18) H Creatinine 1.9 MG/DL (0.55-1.30) H Estimat Glomerular Filtration Rate 44.8 mL/min (>60) Glucose Level 90 MG/DL (74-106) Calcium Level 8.1 MG/DL (8.5-10.1) L Phosphorus Level 4.7 MG/DL (2.5-4.9) Magnesium Level 2.0 MG/DL (1.8-2.4) Total Bilirubin 11.0 MG/DL (0.2-1.0) H Direct Bilirubin 8.8 MG/DL (0.0-0.3) H Aspartate Amino Transf (AST/SGOT) 146 U/L (15-37) H Alanine Aminotransferase (ALT/SGPT) 52 U/L (12-78) Alkaline Phosphatase 281 U/L (46-116) H Total Protein 6.2 G/DL (6.4-8.2) L Albumin 1.2 G/DL (3.4-5.0) L Globulin 5.0 g/dL Albumin/Globulin Ratio 0.2 (1.0-2.7) L Random Vancomycin Level 18.3 ug/mL Height (Feet): 5 Height (Inches): 5.00 Weight (Pounds): 170 General Appearance: WD/WN, no apparent distress, alert Cardiovascular: normal rate Respiratory/Chest: normal breath sounds, no respiratory distress Abdominal Exam: normal bowel sounds, non tender, soft Extremities: non-tender Juno Naranjo NP Mar 02, 2019 11:11
[2019-03-02] MEDS: Micafungin 100 MG in NS 110 ML IVPB SCH (11:18)
[2019-03-02] MEDS ORDERED: NS 275ml ONE ×2 (11:28)
[2019-03-02] MEDS ORDERED: Tubing IV Secondary IV ONE ×2 (11:28→11:30)
--- NOTE | 2019-03-02 11:28 | NUR ---
EVENTS ADMINISTRATIVE ASSISTANTHUMAN SERVICES ASSISTANT SI: S/P SELF EXTUBATION, LEUKOCYTOSIS T. 98.7 HR 109 RR 30 B/P 104/80 3L NC O2 SAT @98% WBC 16.4 NA 148 K 3.3 BUN 26 CR 1.9 AST 146 ALK PHOS 287 IS: CEFEPIME IV FLAGYL IV KCL IV MICAFUNGIN IV KEPPRA IV SWALLOW EVAL ICU STATUS
--- NOTE | 2019-03-02 11:42 | NUR ---
*-* INSURANCE *-* UPDATED CLINICAL AD REVIEWS HAVE BEEN FAXED TO: VANESSA COREA: [place] P- [phone]..............REVIEW/CLINICAL
--- NOTE | 2019-03-02 12:20 | NUR ---
NURSE NOTES: MD PACHECO HERE TO SEE PT. OK WITH TRANSFER PT TO TELE. ON 3LNC SATING 99%.
--- NOTE | 2019-03-02 12:45 | NUR ---
NURSE NOTES: CALLED TO SEE IF ABLE TO EVALUATE PT TODAY, RECEIVED REPLY "ON HER WAY". Addendum: 03/02/19 at 1355 by Olivia Marks RN KCL 10 MEQ ADMINISTERED VIA IVP. A.M K 3.3
--- NOTE | 2019-03-02 12:53 | Surgery Progress Note ---
Surgery Progress Note Subjective Procedure Performed left femoral central venous catheter insertion Additional Comments Patient seen and examined bedside. He is a lot more relaxed and comfortable today. He is breathing well off the ventilator without respiratory issues at this time. Liver functions about the same and relatively unchanged. Overall prognosis is concerning but patient is showing some improvement. Objective Last 24 Hour Vital Signs Date Time Temp Pulse Resp B/P (MAP) Pulse Ox O2 Delivery O2 Flow Rate FiO2 03/02/19 10:00 100 30 110/73 (85) 95 03/02/19 09:04 107/75 03/02/19 09:00 98.7 101 25 104/80 (88) 98 03/02/19 08:00 Nasal Cannula 3.0 Nasal Cannula 3.0 03/02/19 08:00 103 03/02/19 08:00 102 27 107/75 (86) 97 03/02/19 07:00 107 26 122/74 (90) 96 03/02/19 06:00 109 28 112/78 (89) 96 03/02/19 05:00 106 26 110/80 (90) 96 03/02/19 04:00 100 03/02/19 04:00 98.2 100 31 108/77 (87) 98 03/02/19 04:00 Nasal Cannula 3.0 Nasal Cannula 3.0 03/02/19 03:00 106 29 109/76 (87) 96 03/02/19 02:00 106 29 110/78 (89) 96 03/02/19 01:00 102 31 108/74 (85) 96 03/02/19 00:00 97.8 100 28 107/73 (84) 96 03/02/19 00:00 Nasal Cannula 3.0 Nasal Cannula 3.0 03/02/19 00:00 102 03/01/19 23:00 98 30 103/77 (86) 96 03/01/19 22:30 101 113/68 03/01/19 22:00 101 26 113/68 (83) 98 03/01/19 21:30 99 Nasal Cannula 2.0 28 03/01/19 21:00 104 26 108/70 (83) 99 03/01/19 20:00 97.6 102 30 109/75 (86) 98 03/01/19 20:00 Nasal Cannula 3.0 Nasal Cannula 3.0 03/01/19 20:00 102 03/01/19 19:00 102 26 112/73 (86) 99 03/01/19 18:00 100 27 112/76 (88) 97 03/01/19 17:00 101 29 109/80 (90) 97 03/01/19 16:00 95 03/01/19 16:00 Nasal Cannula 3.0 Nasal Cannula 3.0 03/01/19 16:00 97.5 97 28 111/74 (86) 99 03/01/19 15:00 99 21 115/81 (92) 100 03/01/19 14:00 100 32 109/79 (89) 99 03/01/19 13:30 103 29 109/79 (89) 100 03/01/19 13:00 106 21 104/67 (79) 96 03/01/19 12:58 86 22 96 I&O Intake and Output 03/01/19 03/02/19 19:00 07:00 Intake Total 420 ml 300 ml Output Total 850 ml 780 ml Balance -430 ml -480 ml IV Total 420 ml 300 ml Tube Feeding 0 ml 0 ml Output Urine Total 850 ml 780 ml # Bowel Movements 40 Drains: none Cardiovascular: RSR Respiratory: clear Abdomen: soft, distended, non-tender, present bowel sounds Extremities: no edema, no tenderness, no cyanosis Laboratory Tests Test 03/02/19 05:00 White Blood Count 16.4 K/UL (4.8-10.8) H Red Blood Count 3.29 M/UL (4.70-6.10) L Hemoglobin 10.0 G/DL (14.2-18.0) L Hematocrit 31.4 % (42.0-52.0) L Mean Corpuscular Volume 95 FL (80-99) Mean Corpuscular Hemoglobin 30.5 PG (27.0-31.0) Mean Corpuscular Hemoglobin Concent 31.9 G/DL (32.0-36.0) L Red Cell Distribution Width 16.6 % (11.6-14.8) H Platelet Count 423 K/UL (150-450) Mean Platelet Volume 5.8 FL (6.5-10.1) L Neutrophils (%) (Auto) 72.1 % (45.0-75.0) Lymphocytes (%) (Auto) 9.8 % (20.0-45.0) L Monocytes (%) (Auto) 15.1 % (1.0-10.0) H Eosinophils (%) (Auto) 1.4 % (0.0-3.0) Basophils (%) (Auto) 1.6 % (0.0-2.0) Sodium Level 148 MMOL/L (136-145) H Potassium Level 3.3 MMOL/L (3.5-5.1) L Chloride Level 113 MMOL/L (98-107) H Carbon Dioxide Level 24 MMOL/L (21-32) Anion Gap 11 mmol/L (5-15) Blood Urea Nitrogen 26 mg/dL (7-18) H Creatinine 1.9 MG/DL (0.55-1.30) H Estimat Glomerular Filtration Rate 44.8 mL/min (>60) Glucose Level 90 MG/DL (74-106) Calcium Level 8.1 MG/DL (8.5-10.1) L Phosphorus Level 4.7 MG/DL (2.5-4.9) Magnesium Level 2.0 MG/DL (1.8-2.4) Total Bilirubin 11.0 MG/DL (0.2-1.0) H Direct Bilirubin 8.8 MG/DL (0.0-0.3) H Aspartate Amino Transf (AST/SGOT) 146 U/L (15-37) H Alanine Aminotransferase (ALT/SGPT) 52 U/L (12-78) Alkaline Phosphatase 281 U/L (46-116) H Total Protein 6.2 G/DL (6.4-8.2) L Albumin 1.2 G/DL (3.4-5.0) L Globulin 5.0 g/dL Albumin/Globulin Ratio 0.2 (1.0-2.7) L Random Vancomycin Level 18.3 ug/mL Plan Problems: (1) Non-compliance Assessment & Plan: Noncompliance with seizure medication with known history of seizures Now had seizure Appreciate neurology input (2) Electrolyte and fluid disorder Assessment & Plan: Likely due to EtOH use and dehydration IV hydration Trend labs (3) Fever (4) Oral thrush (5) Diarrhea (6) Aspiration pneumonia (7) Seizure disorder (8) Tachycardia (9) Altered mental status (10) Alcohol withdrawal seizure (11) Alcohol withdrawal seizure (12) Episode of confusion (13) Coffee ground emesis (14) Gastrointestinal bleed Assessment & Plan: Patient on admission identified to have maroon-colored stool and coffee-ground emesis. Labs noted mild anemia with H&H trending down. No acute active bleed noted but given patient's history high risk for potential ulcers. PPI Appreciate GI input considerations for EGD once stable No evidence of pulmonary embolus, aortic dissection or aneurysm. Posterior basilar consolidation suspicious for pneumonia. Correlate clinically. Trace bilateral pleural effusions. Possible enterocolitis as described above. Please correlate clinically. Mild ascites Fatty liver Cholelithiasis with wall thickening. Cholecystitis not excluded. Small right inguinal hernia containing fat Extensive breathing motion artifact limiting evaluation. We will follow with recommendations thank you (15) Sinus tachycardia (16) Septic shock (17) Sepsis Assessment & Plan: Patient septic leukocytosis improved today lactic acidosis resolved anemia renal function declining electrolyte disturbance US noted on IV abx extubated doing well US noted again. liver decompensated HIDA noted and likely cirrhosis delgado AM labs reordered (18) Lactic acid acidosis (19) STEFANI (acute kidney injury) (20) Abnormal LFTs (21) High anion gap metabolic acidosis Juanpablo Marcus Mar 02, 2019 12:53
[2019-03-02] MEDS ORDERED: Lactulose 10gm/15ml UDC ORAL SCH (13:00)
--- NOTE | 2019-03-02 13:00 | NUR ---
NURSE NOTES: sister Josee here to see pt. pt in no distress. cleaned and repositioned. Given updated on possible transfer today and speech eval for diet or further instructions. Would like a call if transferred and for the results of swallow eval.
--- NOTE | 2019-03-02 13:08 | Infectious Diseases Prog Note ---
Assessment/Plan Assessment/Plan ASSESSMENT AND PLAN: 1. sepsis, shock, e.coli bacteremia/uti, gram neg sepsis, pna/HCAP, ct noted, sirs, fevers, fungemia but blood cultures negative, leukocytosis worse, c.diff. negative, elevated lft's, ? cholecystitis, hida scan negative, respiratory failure/ vent but now extubated - cefepime, flagyl, vancomycin and micafungin - day # 5 combination - surveillance blood cultures negative, monitor labs and chest x-ray - icu and supportive care, off vent , off pressors, clinically improving - monitor lft's - still elevated 2. History of seizures. Workup per Neurology. 3. Acute kidney injury, likely secondary to sepsis. 4. The patient is anemic. 5. Severe sepsis with leukocytosis. 6. History of ETOH abuse. 7. No known allergies. 8. Family history is noncontributory. 9. MAR was noted. 10. Case was discussed with RN. 11. Social history is positive for ETOH abuse. 12. Poor prognosis. Subjective Constitutional: Reports: other - self-extubated ; Denies: fever HEENT: Denies: congestion Respiratory: Denies: shortness of breath Cardiovascular: Denies: chest pain Gastrointestinal/Abdominal: Reports: diarrhea; Denies: nausea, vomiting Neurologic: Denies: headache Psychiatric: Denies: depression Skin: Denies: rash Hematologic: Denies: bleeding Musculoskeletal: Denies: pain Allergies: Coded Allergies: No Known Allergies (Unverified , 02/10/15) Objective Vital Signs Last 24 Hour Vital Signs Date Time Temp Pulse Resp B/P (MAP) Pulse Ox O2 Delivery O2 Flow Rate FiO2 03/02/19 12:00 114 03/02/19 10:00 100 30 110/73 (85) 95 03/02/19 09:04 107/75 03/02/19 09:00 98.7 101 25 104/80 (88) 98 03/02/19 08:00 Nasal Cannula 3.0 Nasal Cannula 3.0 03/02/19 08:00 103 03/02/19 08:00 102 27 107/75 (86) 97 03/02/19 07:00 107 26 122/74 (90) 96 03/02/19 06:00 109 28 112/78 (89) 96 03/02/19 05:00 106 26 110/80 (90) 96 03/02/19 04:00 100 03/02/19 04:00 98.2 100 31 108/77 (87) 98 03/02/19 04:00 Nasal Cannula 3.0 Nasal Cannula 3.0 03/02/19 03:00 106 29 109/76 (87) 96 03/02/19 02:00 106 29 110/78 (89) 96 03/02/19 01:00 102 31 108/74 (85) 96 03/02/19 00:00 97.8 100 28 107/73 (84) 96 03/02/19 00:00 Nasal Cannula 3.0 Nasal Cannula 3.0 03/02/19 00:00 102 03/01/19 23:00 98 30 103/77 (86) 96 03/01/19 22:30 101 113/68 03/01/19 22:00 101 26 113/68 (83) 98 03/01/19 21:30 99 Nasal Cannula 2.0 28 03/01/19 21:00 104 26 108/70 (83) 99 03/01/19 20:00 97.6 102 30 109/75 (86) 98 03/01/19 20:00 Nasal Cannula 3.0 Nasal Cannula 3.0 03/01/19 20:00 102 03/01/19 19:00 102 26 112/73 (86) 99 03/01/19 18:00 100 27 112/76 (88) 97 03/01/19 17:00 101 29 109/80 (90) 97 03/01/19 16:00 95 03/01/19 16:00 Nasal Cannula 3.0 Nasal Cannula 3.0 03/01/19 16:00 97.5 97 28 111/74 (86) 99 03/01/19 15:00 99 21 115/81 (92) 100 03/01/19 14:00 100 32 109/79 (89) 99 03/01/19 13:30 103 29 109/79 (89) 100 Height (Feet): 5 Height (Inches): 5.00 Weight (Pounds): 170 General Appearance: no acute distress HEENT: normocephalic, atraumatic, anicteric, mucous membranes moist Respiratory/Chest: crackles/rales, rhonchi - bilaterally Cardiovascular: normal rate, regular rhythm, no gallop/murmur Abdomen: normal bowel sounds, soft, non tender, no organomegaly, non distended Genitourinary: other - + delgado - Extremities: no cyanosis Skin: no rash 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 Posterior basilar consolidation suspicious for pneumonia. Correlate clinically. Trace bilateral pleural effusions. Possible enterocolitis as described above. Please correlate clinically. Mild ascites Fatty liver Cholelithiasis with wall thickening. Cholecystitis not excluded. Small right inguinal hernia containing fat Extensive breathing motion artifact limiting evaluation. Chest x-ray - 02/17/19 - Procedure: XRAY Chest 1v Indication: Dyspnea Comparison: 02/16/2019 A single view chest radiograph was obtained. Findings: Left basilar consolidation with air bronchograms demonstrated. Costophrenic angle is obscured. Heart size is normal. Tubes and lines are stable and satisfactory in position. IMPRESSION: No significant change from the previous exam Chest x-ray - 02/21/19 - Comparison: 02/17/2019 A single view chest radiograph was obtained. Findings: Diffuse groundglass opacities have increased since the previous occasion. Heart remains normal in size. There is a left pleural effusion likely present. Tubes and lines are stable. A right PICC line is present. The tip is projected over the SVC. IMPRESSION: Worsening pulmonary edema. PICC line in good position. No change otherwise Chest x-ray - 02/22/19 - Findings: Tubes and lines are satisfactory and stable. Heart size is normal and stable. Groundglass opacities noted diffusely. Bilateral basilar consolidation with air bronchograms demonstrated. A probable left pleural effusion is noted. IMPRESSION: Evidence of radiographically stable pulmonary edema which may be noncardiogenic. Basilar consolidation unchanged. Left pleural effusion Chest x-ray - 02/26/19- Technique: One view of the chest Comparison: 02/22/2019 Findings: Stable satisfactory positions of endotracheal tube, nasogastric tube, right arm PICC. There appears to be decreased pleural fluid on the left. Mild interstitial airspace congestion persists bilaterally. No new infiltrates Impression: Improved left pleural effusion, over 4 days Persistent largely unchanged bilateral interstitial and hazy airspace edema Stable tube and line positions as described 02/28/19 - Procedure: XRAY Chest 1v Indication: NG tube placement Comparison: None A single view chest radiograph was obtained. Findings: Study obtained for purposes of NG tube localization. The proximal and distal ports are within the mid to distal stomach. IMPRESSION: Nasogastric tube satisfactory in position Microbiology Date/Time Source Procedure Growth Status 02/25/19 09:15 Blood Blood Culture - Preliminary NO GROWTH AFTER 4 DAYS Resulted 02/27/19 15:00 Sputum Expectorated Pneumocystis jiroveci Smear (DFA) - Final Complete 02/22/19 23:55 Stool Clostridium difficile Toxin Assay - Final Complete 02/25/19 09:05 Indwelling Cath Urine Culture - Final NO GROWTH AFTER 48 HOURS Complete Microbiology Date/Time Source Procedure Growth Status 02/27/19 15:00 Sputum Expectorated Pneumocystis jiroveci Smear (DFA) - Final Complete Laboratory Tests Test 03/02/19 05:00 White Blood Count 16.4 K/UL (4.8-10.8) H Red Blood Count 3.29 M/UL (4.70-6.10) L Hemoglobin 10.0 G/DL (14.2-18.0) L Hematocrit 31.4 % (42.0-52.0) L Mean Corpuscular Volume 95 FL (80-99) Mean Corpuscular Hemoglobin 30.5 PG (27.0-31.0) Mean Corpuscular Hemoglobin Concent 31.9 G/DL (32.0-36.0) L Red Cell Distribution Width 16.6 % (11.6-14.8) H Platelet Count 423 K/UL (150-450) Mean Platelet Volume 5.8 FL (6.5-10.1) L Neutrophils (%) (Auto) 72.1 % (45.0-75.0) Lymphocytes (%) (Auto) 9.8 % (20.0-45.0) L Monocytes (%) (Auto) 15.1 % (1.0-10.0) H Eosinophils (%) (Auto) 1.4 % (0.0-3.0) Basophils (%) (Auto) 1.6 % (0.0-2.0) Sodium Level 148 MMOL/L (136-145) H Potassium Level 3.3 MMOL/L (3.5-5.1) L Chloride Level 113 MMOL/L (98-107) H Carbon Dioxide Level 24 MMOL/L (21-32) Anion Gap 11 mmol/L (5-15) Blood Urea Nitrogen 26 mg/dL (7-18) H Creatinine 1.9 MG/DL (0.55-1.30) H Estimat Glomerular Filtration Rate 44.8 mL/min (>60) Glucose Level 90 MG/DL (74-106) Calcium Level 8.1 MG/DL (8.5-10.1) L Phosphorus Level 4.7 MG/DL (2.5-4.9) Magnesium Level 2.0 MG/DL (1.8-2.4) Total Bilirubin 11.0 MG/DL (0.2-1.0) H Direct Bilirubin 8.8 MG/DL (0.0-0.3) H Aspartate Amino Transf (AST/SGOT) 146 U/L (15-37) H Alanine Aminotransferase (ALT/SGPT) 52 U/L (12-78) Alkaline Phosphatase 281 U/L (46-116) H Total Protein 6.2 G/DL (6.4-8.2) L Albumin 1.2 G/DL (3.4-5.0) L Globulin 5.0 g/dL Albumin/Globulin Ratio 0.2 (1.0-2.7) L Random Vancomycin Level 18.3 ug/mL Current Medications Medications (Trade) Dose Ordered Sig/Tonny Route PRN Reason Start Time Stop Time Status Last Admin Dose Admin Acetaminophen (Tylenol) 650 mg Q4H PRN ORAL Mild Pain (Pain Scale 1-3) 02/16/19 00:30 03/16/19 12:29 02/17/19 04:53 Acetaminophen (Tylenol) 650 mg Q4H PRN RECTAL Mild Pain (Pain Scale 1-3) 02/16/19 04:30 03/18/19 04:29 02/16/19 04:31 Cefepime HCl 2 gm/ Dextrose 110 ml @ 220 mls/hr Q24H IV 03/02/19 09:00 03/09/19 08:59 03/02/19 09:03 Chlorhexidine Gluconate (Stephanie-Hex 2%) 1 applic DAILY@2000 TOPIC 02/19/19 20:00 03/21/19 19:59 03/01/19 20:00 Dextrose (Dextrose 50%) 25 ml Q30M PRN IV Hypoglycemia 02/15/19 22:15 03/16/19 16:14 Dextrose (Dextrose 50%) 50 ml Q30M PRN IV Hypoglycemia 02/15/19 22:15 03/16/19 16:14 02/16/19 06:32 Lactobacillus Acidophilus (Culturelle) 1 tab EVERY 12 HOURS ORAL 02/25/19 21:00 03/26/19 17:59 03/02/19 09:03 Lactulose (Cephulac) 10 gm THREE TIMES A DAY ORAL 03/02/19 13:00 04/01/19 12:59 03/02/19 12:35 Lansoprazole (Prevacid) 30 mg EVERY 12 HOURS NG 02/25/19 21:00 03/26/19 17:59 03/02/19 09:03 Levetiracetam 100 ml @ 400 mls/hr Q12HR IVPB 02/19/19 09:00 03/21/19 08:59 03/02/19 09:03 Lorazepam (Ativan 2mg/ml 1ml) 1 mg Q4H PRN IV For Anxiety 02/25/19 11:00 03/04/19 10:59 02/27/19 14:34 Metronidazole 100 ml @ 100 mls/hr Q8HR IVPB 02/25/19 14:00 03/04/19 13:59 03/02/19 05:33 Micafungin Sodium 100 mg/Sodium Chloride 110 ml @ 110 mls/hr Q24H IVPB 02/25/19 10:30 03/04/19 10:29 03/02/19 11:18 Norepinephrine Bitartrate 8 mg/ Dextrose 508 ml @ 0 mls/hr Q24H IV 02/16/19 09:30 03/18/19 09:29 02/23/19 09:37 Ondansetron HCl (Zofran) 4 mg Q6H PRN IVP Nausea & Vomiting 02/16/19 01:00 03/16/19 12:59 02/24/19 18:50 Phenylephrine HCl 50 mg/Dextrose 250 ml @ 0 mls/hr Q24H IV 02/16/19 22:30 03/18/19 22:29 Rifaximin (Xifaxan) 550 mg EVERY 12 HOURS ORAL 03/02/19 21:00 03/09/19 20:59 Thiamine HCl (Vitamin B1) 100 mg DAILY NG 02/25/19 09:00 03/27/19 08:59 03/02/19 09:03 Vancomycin HCl (Vanco rx to dose) 1 ea DAILY PRN MISC Per rx protocol 02/16/19 09:00 03/17/19 12:59 Barry Plummer MD Mar 02, 2019 13:08
--- NOTE | 2019-03-02 13:15 | NUR ---
RD ASSESSMENT & RECOMMENDATIONS SEE CARE ACTIVITY FOR COMPLETE ASSESSMENT DAILY ESTIMATED NEEDS: Needs based on Pulmonary, liver dysfunction, sepsis 72.7kg 25-30 kcals/kg 4058-7912 total kcals 1-2 g protein/kg 73-145 g total protein 25-30 mL/kg 8749-8437 total fluid mLs NUTRITION DIAGNOSIS: 1) Swallowing difficulty r/t respiratory status as evidenced by pt now s/p extubation, OGT removed, NPO, pending GLUING MACHINE FEEDER evaluation. 2) Altered nutrition related lab values r/t clinical condition as evidenced by pt w/ low lytes (K 3.3, phos now wnl, Mg now wnl), critically elev WBC trending down, elev ammonia, elev T bili(1.4->11.0 trend up). CURRENT DIET:NPO, PENDING GLUING MACHINE FEEDER EVALUATION PO DIET RECOMMENDATIONS: LOW NA/ texture per GLUING MACHINE FEEDER ADDITIONAL RECOMMENDATIONS: 1) Obtain a CALIBRATED BED SCALE wt 2) F/up with GLUING MACHINE FEEDER evaluation, initiation of PO diet and acceptance -> Consult RD for TF rec if pt unsafe to eat by mouth 3) Monitor lytes daily, replete as needed (low K) 4) Monitor LFTs and T bili (trending up T bili 1.4 -> 11.0 ) 5) Consider IVF: Na elev, BUN and creat trend up .
--- NOTE | 2019-03-02 14:12 | NUR ---
NURSE NOTES: SPEECH THERAPIST GERA VAZQUEZ HERE TO ASSESS PT.
--- NOTE | 2019-03-02 14:29 | NUR ---
NURSE NOTES: called MD Castrejon office, spoke with call center Raf regarding clarification for diet order. Speech therapist recommends regular diet, puree, with nectar thick, no straws, total assist, crush medications and aspiration precautions. Awaiting call back.
--- NOTE | 2019-03-02 15:56 | Cardiac Electrophysiology PN ---
Assessment/Plan Assessment/Plan 1. Sinus tachycardia up to 170s. No evidence of myocardial infarction . Due to sepsis and anemia and alcohol withdrawal. EF 60%. HR better 2. S/P Septic shock and E Coli bacteremia, on broad-spectrum IV antibiotics. 3. Troponin leak. Type 2. Repeat level 0.16 and now negative 4. S/P Respiratory failure. Self extubated S/P Bronchoscopy and removal of mucus plug 5. ETOH withdrawal 6. Seizures with noncompliance. 7. Upper gi bleed. S/P EGD yesterday and passed swallow eval today 8. Hematuria, resolved DW RN Subjective Subjective In ICU in SR off pressors.Bronchoscopy by Dr Harris showed mucus plug. Had EGD yesterday and passed swallow eval today. Objective Last 24 Hour Vital Signs Date Time Temp Pulse Resp B/P (MAP) Pulse Ox O2 Delivery O2 Flow Rate FiO2 03/02/19 13:59 99 Nasal Cannula 2.0 28 03/02/19 13:00 99 23 110/81 (91) 97 03/02/19 12:00 114 03/02/19 12:00 98.4 99 21 108/75 (86) 97 03/02/19 12:00 Nasal Cannula 3.0 Nasal Cannula 3.0 03/02/19 11:00 104 24 114/81 (92) 97 03/02/19 10:00 100 30 110/73 (85) 95 03/02/19 09:04 107/75 03/02/19 09:00 98.7 101 25 104/80 (88) 98 03/02/19 08:00 Nasal Cannula 3.0 Nasal Cannula 3.0 03/02/19 08:00 103 03/02/19 08:00 102 27 107/75 (86) 97 03/02/19 07:00 107 26 122/74 (90) 96 03/02/19 06:00 109 28 112/78 (89) 96 03/02/19 05:00 106 26 110/80 (90) 96 03/02/19 04:00 100 03/02/19 04:00 98.2 100 31 108/77 (87) 98 03/02/19 04:00 Nasal Cannula 3.0 Nasal Cannula 3.0 03/02/19 03:00 106 29 109/76 (87) 96 03/02/19 02:00 106 29 110/78 (89) 96 03/02/19 01:00 102 31 108/74 (85) 96 03/02/19 00:00 97.8 100 28 107/73 (84) 96 03/02/19 00:00 Nasal Cannula 3.0 Nasal Cannula 3.0 03/02/19 00:00 102 03/01/19 23:00 98 30 103/77 (86) 96 03/01/19 22:30 101 113/68 03/01/19 22:00 101 26 113/68 (83) 98 03/01/19 21:30 99 Nasal Cannula 2.0 28 03/01/19 21:00 104 26 108/70 (83) 99 03/01/19 20:00 97.6 102 30 109/75 (86) 98 03/01/19 20:00 Nasal Cannula 3.0 Nasal Cannula 3.0 03/01/19 20:00 102 03/01/19 19:00 102 26 112/73 (86) 99 03/01/19 18:00 100 27 112/76 (88) 97 03/01/19 17:00 101 29 109/80 (90) 97 03/01/19 16:00 95 03/01/19 16:00 Nasal Cannula 3.0 Nasal Cannula 3.0 03/01/19 16:00 97.5 97 28 111/74 (86) 99 Intake and Output 03/01/19 03/02/19 19:00 07:00 Intake Total 420 ml 300 ml Output Total 850 ml 780 ml Balance -430 ml -480 ml IV Total 420 ml 300 ml Tube Feeding 0 ml 0 ml Output Urine Total 850 ml 780 ml # Bowel Movements 40 Laboratory Tests Test 03/02/19 05:00 White Blood Count 16.4 K/UL (4.8-10.8) H Red Blood Count 3.29 M/UL (4.70-6.10) L Hemoglobin 10.0 G/DL (14.2-18.0) L Hematocrit 31.4 % (42.0-52.0) L Mean Corpuscular Volume 95 FL (80-99) Mean Corpuscular Hemoglobin 30.5 PG (27.0-31.0) Mean Corpuscular Hemoglobin Concent 31.9 G/DL (32.0-36.0) L Red Cell Distribution Width 16.6 % (11.6-14.8) H Platelet Count 423 K/UL (150-450) Mean Platelet Volume 5.8 FL (6.5-10.1) L Neutrophils (%) (Auto) 72.1 % (45.0-75.0) Lymphocytes (%) (Auto) 9.8 % (20.0-45.0) L Monocytes (%) (Auto) 15.1 % (1.0-10.0) H Eosinophils (%) (Auto) 1.4 % (0.0-3.0) Basophils (%) (Auto) 1.6 % (0.0-2.0) Sodium Level 148 MMOL/L (136-145) H Potassium Level 3.3 MMOL/L (3.5-5.1) L Chloride Level 113 MMOL/L (98-107) H Carbon Dioxide Level 24 MMOL/L (21-32) Anion Gap 11 mmol/L (5-15) Blood Urea Nitrogen 26 mg/dL (7-18) H Creatinine 1.9 MG/DL (0.55-1.30) H Estimat Glomerular Filtration Rate 44.8 mL/min (>60) Glucose Level 90 MG/DL (74-106) Calcium Level 8.1 MG/DL (8.5-10.1) L Phosphorus Level 4.7 MG/DL (2.5-4.9) Magnesium Level 2.0 MG/DL (1.8-2.4) Total Bilirubin 11.0 MG/DL (0.2-1.0) H Direct Bilirubin 8.8 MG/DL (0.0-0.3) H Aspartate Amino Transf (AST/SGOT) 146 U/L (15-37) H Alanine Aminotransferase (ALT/SGPT) 52 U/L (12-78) Alkaline Phosphatase 281 U/L (46-116) H Total Protein 6.2 G/DL (6.4-8.2) L Albumin 1.2 G/DL (3.4-5.0) L Globulin 5.0 g/dL Albumin/Globulin Ratio 0.2 (1.0-2.7) L Random Vancomycin Level 18.3 ug/mL Objective HEAD AND NECK: No JVD LUNGS: Decreased breath sounds. CARDIOVASCULAR: Regular S1 and S2 with no gallop or murmur. ABDOMEN: Soft. EXTREMITIES: No pitting edema. Toluie,Fidencio MD Mar 02, 2019 15:56
--- NOTE | 2019-03-02 16:00 | NUR ---
NURSE NOTES: Awake in bed. Resp. unlabored. Pt removed NC, currently on R.A sating 96%. will monitor pt closely. pulled up in bed.
--- NOTE | 2019-03-02 17:07 | NUR ---
SPEECH PATHOLOGY: BEDSIDE SWALLOW EVALUATION COMPLETED POST CHART REVIEW AND INTERVIEW WITH ESHA MOORE. DYSPHAGIA RISK FACTORS FOR THIS 54 YEAR OLD MALE: DECREASED MENTATION, RECENT SELF/EXTUBATION WITH NG TUBE, MULTIPLE MEDICAL COMPLICATIONS, NON/PRODUCTIVE, NON/CLEARING COUGH, MULTIPLE SWALLOWS REQUIRED TO CLEAR BOLUS THROUGH PHARYNX, RESPIRATION RATE CHANGES DURING P.O. TRIALS, THROAT CLEAR POST SWALLOW, WET UPPER AIRWAY SOUNDS POST SWALLOW PER CERVICAL AUSCULTATION. RECOMMENDATIONS: 1. SAFE TO RESUME P.O. WITH PUREE, NECTAR THICK LIQUIDS, 2. MEALTIME PROTOCOL: NO STRAWS, TOTAL ASSIST WITH MEALS, CRUSH CRUSHABLE MEDS/PRESENT IN PUREE, SLOW RATE OF INTAKE, ORAL CARE POST P.O. 3. VIDEOFLUROSCOPIC SWALLOW STUDY 4. ONGOING ASSESSMENT 5. PATIENT/FAMILY/CAREGIVER EDUCATION
--- NOTE | 2019-03-02 17:15 | NUR ---
TRANSFER TO FLOOR: Patient transferred to [facility], per . Report given to . Belongings and medications given to Josias. Family and or S/O informed of transfer. Informed sister while visiting ICU that pt would transfer to tele today; endorsed f/u to Josias RN/ PM RN
[2019-03-02] MEDS ORDERED: Acetaminophen 650 MG SUPP RECTAL PRN (18:00)
[2019-03-02] MEDS ORDERED: LORazepam Inj 2mg/ml 1ml IV PRN (18:30)
[2019-03-02] MEDS: Lactulose 10gm/15ml UDC ORAL SCH (18:40)
--- NOTE | 2019-03-02 19:33 | Pulmonolgy Critical Care Note ---
Critical Care - Asmt/Plan Assessment/Plan: Pulmonary CCM Progress Note Asmt/Plan Problems: (1) Seizure disorder (2) Endotracheally intubated (3) Septic shock (4) Sepsis (5) Sinus tachycardia (6) Lactic acid acidosis (7) High anion gap metabolic acidosis (8) STEFANI (acute kidney injury) (9) Abnormal LFTs (10) Coffee ground emesis (11) Gastrointestinal bleed (12) Altered mental status (13) Alcohol withdrawal seizure (14) Ventilator dependent Assessment/Plan: Optimize pulmonary hygiene/mobilize as tolerated PRN O2 CXR ABG EGD today Monitor volumes and renal function, PRN lasix Abx per ID F/U BAL studies PPI Monitor counts, transfuse as needed Monitor for EtOH w/drawal, PRN ativan Continue AEDs, monitor for Sz's, F/U neuro recs FC CCT 35 Critical Care - Objective Vital Signs Noted Condition: improving HEENT: atraumatic, normocephalic Lungs: clear Heart: HR/BP stable Abdomen: soft, non-tender, active bowel sounds Extremities: no C/C/E Critical Care - Subjective ROS Limited/Unobtainable: Yes ICU Day: 16 Interval Events: self extubated and pulled out OGT WCt better HH stable after PRBC Condition: improving IV Access: PICC EKG Rhythm: Sinus Rhythm FI02: 28 Vent Support Breath Rate: 26 Vent Support Mode: CPAP Vent Tidal Volume: 500 Sputum Amount: Small PEEP: 5.0 PIP: 14 Fluids: SLIV Drips: N/A Tube Feeding Amount: 0 Subjective: Awake lethargic but arousable Labs: Laboratory Tests Test 02/28/19 09:15 03/01/19 04:30 Vancomycin Level Trough 32.5 ug/mL (5.0-12.0) H White Blood Count 17.7 K/UL (4.8-10.8) H Red Blood Count 2.91 M/UL (4.70-6.10) L Hemoglobin 9.0 G/DL (14.2-18.0) L Hematocrit 27.8 % (42.0-52.0) L Mean Corpuscular Volume 95 FL (80-99) Mean Corpuscular Hemoglobin 31.0 PG (27.0-31.0) Mean Corpuscular Hemoglobin Concent 32.5 G/DL (32.0-36.0) Red Cell Distribution Width 15.9 % (11.6-14.8) H Platelet Count 417 K/UL (150-450) Mean Platelet Volume 6.0 FL (6.5-10.1) L Neutrophils (%) (Auto) 69.0 % (45.0-75.0) Lymphocytes (%) (Auto) 10.0 % (20.0-45.0) L Monocytes (%) (Auto) 16.8 % (1.0-10.0) H Eosinophils (%) (Auto) 2.3 % (0.0-3.0) Basophils (%) (Auto) 1.9 % (0.0-2.0) Prothrombin Time 16.1 SEC (9.30-11.50) H Prothromb Time International Ratio 1.5 (0.9-1.1) H Activated Partial Thromboplast Time 39 SEC (23-33) H Sodium Level 146 MMOL/L (136-145) H Potassium Level 3.5 MMOL/L (3.5-5.1) Chloride Level 112 MMOL/L (98-107) H Carbon Dioxide Level 25 MMOL/L (21-32) Anion Gap 9 mmol/L (5-15) Blood Urea Nitrogen 20 mg/dL (7-18) H Creatinine 1.8 MG/DL (0.55-1.30) H Estimat Glomerular Filtration Rate 47.8 mL/min (>60) Glucose Level 90 MG/DL (74-106) Uric Acid 4.0 MG/DL (2.6-7.2) Calcium Level 8.0 MG/DL (8.5-10.1) L Phosphorus Level 3.8 MG/DL (2.5-4.9) Magnesium Level 2.1 MG/DL (1.8-2.4) Total Bilirubin 11.2 MG/DL (0.2-1.0) H Direct Bilirubin 9.2 MG/DL (0.0-0.3) H Gamma Glutamyl Transpeptidase 586 U/L (5-85) H Aspartate Amino Transf (AST/SGOT) 158 U/L (15-37) H Alanine Aminotransferase (ALT/SGPT) 55 U/L (12-78) Alkaline Phosphatase 281 U/L (46-116) H C-Reactive Protein, Quantitative 7.0 mg/dL (0.00-0.90) H Pro-B-Type Natriuretic Peptide 1723 pg/mL (0-125) H Total Protein 6.1 G/DL (6.4-8.2) L Albumin 1.3 G/DL (3.4-5.0) L Random Vancomycin Level 25.3 ug/mL Critical Care - Objective Last 24 Hour Vital Signs Date Time Temp Pulse Resp B/P (MAP) Pulse Ox O2 Delivery O2 Flow Rate FiO2 03/02/19 17:00 103 29 109/79 (89) 97 03/02/19 16:00 Room Air Room Air 03/02/19 16:00 98.6 102 30 114/75 (88) 97 03/02/19 16:00 111 03/02/19 15:00 105 27 114/79 (91) 96 03/02/19 14:00 99 25 109/78 (88) 97 03/02/19 13:59 99 Nasal Cannula 2.0 28 03/02/19 13:00 99 23 110/81 (91) 97 03/02/19 12:00 114 03/02/19 12:00 98.4 99 21 108/75 (86) 97 03/02/19 12:00 Nasal Cannula 3.0 Nasal Cannula 3.0 03/02/19 11:00 104 24 114/81 (92) 97 03/02/19 10:00 100 30 110/73 (85) 95 03/02/19 09:04 107/75 03/02/19 09:00 98.7 101 25 104/80 (88) 98 03/02/19 08:00 Nasal Cannula 3.0 Nasal Cannula 3.0 03/02/19 08:00 103 03/02/19 08:00 102 27 107/75 (86) 97 03/02/19 07:00 107 26 122/74 (90) 96 03/02/19 06:00 109 28 112/78 (89) 96 03/02/19 05:00 106 26 110/80 (90) 96 03/02/19 04:00 100 03/02/19 04:00 98.2 100 31 108/77 (87) 98 03/02/19 04:00 Nasal Cannula 3.0 Nasal Cannula 3.0 03/02/19 03:00 106 29 109/76 (87) 96 03/02/19 02:00 106 29 110/78 (89) 96 03/02/19 01:00 102 31 108/74 (85) 96 03/02/19 00:00 97.8 100 28 107/73 (84) 96 03/02/19 00:00 Nasal Cannula 3.0 Nasal Cannula 3.0 03/02/19 00:00 102 03/01/19 23:00 98 30 103/77 (86) 96 03/01/19 22:30 101 113/68 03/01/19 22:00 101 26 113/68 (83) 98 03/01/19 21:30 99 Nasal Cannula 2.0 28 03/01/19 21:00 104 26 108/70 (83) 99 03/01/19 20:00 97.6 102 30 109/75 (86) 98 03/01/19 20:00 Nasal Cannula 3.0 Nasal Cannula 3.0 03/01/19 20:00 102 Accucheck: 33 Critical Care - Subjective ROS Limited/Unobtainable: No Condition: stable FI02: 28 Vent Support Breath Rate: 26 Vent Support Mode: CPAP Vent Tidal Volume: 500 Sputum Amount: Small PEEP: 5.0 PIP: 14 Tube Feeding Amount: 0 I&O: Intake and Output 03/01/19 03/02/19 19:00 07:00 Intake Total 420 ml 300 ml Output Total 850 ml 780 ml Balance -430 ml -480 ml IV Total 420 ml 300 ml Tube Feeding 0 ml 0 ml Output Urine Total 850 ml 780 ml # Bowel Movements 40 ET-Tube: 7.5 ET Position: 24 Jeromy Slaughter MD Mar 02, 2019 19:33
--- NOTE | 2019-03-02 19:39 | NUR ---
HAND-OFF: Report RECEIVED FROM MARTINEZ)AND FERNY TO JES BALBUENA. Addendum: 03/02/19 at 1940 by JEWELS CORONADO RN RN Report RECEIVED FROM MARTINEZ)AND GIVEN TO JES BALBUENA.
--- NOTE | 2019-03-02 19:40 | NUR ---
NURSE NOTES: Received report from ESHA Barreto. Pt is awake and resting in bed. In no acute distress. PICC line on BAUDILIO intact and patent. Bed in lowest position, call light within reach. Will continue plan of care.
[2019-03-02] MEDS ORDERED: Dyna-Hex 2% Top Sol 2oz TOPIC SCH (20:00)
--- NOTE | 2019-03-02 20:21 | Urology Progress Note ---
Assessment/Plan Status: progressing Assessment/Plan: 1. Gross hematuria history, improved. 2. Urinary retention. 3. Probable neurogenic bladder. 4. Urinary tract infection history. 5. Sepsis history. monitor clinically delgado indwelling hand irrigated and do PRN abx as ordered f/u on blood cx renal fxn stable Subjective Allergies: Coded Allergies: No Known Allergies (Unverified , 02/10/15) Subjective all noted, pt self extubated yest Objective Last 24 Hour Vital Signs Date Time Temp Pulse Resp B/P (MAP) Pulse Ox O2 Delivery O2 Flow Rate FiO2 03/02/19 19:55 97 Room Air 21 03/02/19 17:00 103 29 109/79 (89) 97 03/02/19 16:00 Room Air Room Air 03/02/19 16:00 98.6 102 30 114/75 (88) 97 03/02/19 16:00 111 03/02/19 15:00 105 27 114/79 (91) 96 03/02/19 14:00 99 25 109/78 (88) 97 03/02/19 13:59 99 Nasal Cannula 2.0 28 03/02/19 13:00 99 23 110/81 (91) 97 03/02/19 12:00 114 03/02/19 12:00 98.4 99 21 108/75 (86) 97 03/02/19 12:00 Nasal Cannula 3.0 Nasal Cannula 3.0 03/02/19 11:00 104 24 114/81 (92) 97 03/02/19 10:00 100 30 110/73 (85) 95 03/02/19 09:04 107/75 03/02/19 09:00 98.7 101 25 104/80 (88) 98 03/02/19 08:00 Nasal Cannula 3.0 Nasal Cannula 3.0 03/02/19 08:00 103 03/02/19 08:00 102 27 107/75 (86) 97 03/02/19 07:00 107 26 122/74 (90) 96 03/02/19 06:00 109 28 112/78 (89) 96 03/02/19 05:00 106 26 110/80 (90) 96 03/02/19 04:00 100 03/02/19 04:00 98.2 100 31 108/77 (87) 98 03/02/19 04:00 Nasal Cannula 3.0 Nasal Cannula 3.0 03/02/19 03:00 106 29 109/76 (87) 96 03/02/19 02:00 106 29 110/78 (89) 96 03/02/19 01:00 102 31 108/74 (85) 96 03/02/19 00:00 97.8 100 28 107/73 (84) 96 03/02/19 00:00 Nasal Cannula 3.0 Nasal Cannula 3.0 03/02/19 00:00 102 03/01/19 23:00 98 30 103/77 (86) 96 03/01/19 22:30 101 113/68 03/01/19 22:00 101 26 113/68 (83) 98 03/01/19 21:30 99 Nasal Cannula 2.0 28 03/01/19 21:00 104 26 108/70 (83) 99 Intake and Output 03/01/19 03/02/19 19:00 07:00 Intake Total 420 ml 300 ml Output Total 850 ml 780 ml Balance -430 ml -480 ml IV Total 420 ml 300 ml Tube Feeding 0 ml 0 ml Output Urine Total 850 ml 780 ml # Bowel Movements 40 Microbiology Date/Time Source Procedure Growth Status 02/25/19 09:15 Blood Blood Culture - Preliminary NO GROWTH AFTER 4 DAYS Resulted 02/27/19 15:00 Sputum Expectorated Pneumocystis jiroveci Smear (DFA) - Final Complete 02/22/19 23:55 Stool Clostridium difficile Toxin Assay - Final Complete 02/25/19 09:05 Indwelling Cath Urine Culture - Final NO GROWTH AFTER 48 HOURS Complete Current Medications Medications (Trade) Dose Ordered Sig/Tonny Route PRN Reason Start Time Stop Time Status Last Admin Dose Admin Acetaminophen (Tylenol) 650 mg Q4H PRN ORAL Mild Pain (Pain Scale 1-3) 03/02/19 18:00 03/16/19 17:59 Acetaminophen (Tylenol) 650 mg Q4H PRN RECTAL Mild Pain (Pain Scale 1-3) 03/02/19 18:00 03/18/19 17:59 Cefepime HCl 2 gm/ Dextrose 110 ml @ 220 mls/hr Q24H IV 03/03/19 09:00 03/09/19 08:59 Chlorhexidine Gluconate (Stephanie-Hex 2%) 1 applic DAILY@1999 TOPIC 03/02/19 20:00 8/14/19 19:59 Dextrose (Dextrose 50%) 25 ml Q30M PRN IV Hypoglycemia 03/02/19 17:45 03/16/19 16:14 Dextrose (Dextrose 50%) 50 ml Q30M PRN IV Hypoglycemia 03/02/19 17:45 03/16/19 16:14 Lactobacillus Acidophilus (Culturelle) 1 tab EVERY 12 HOURS ORAL 03/02/19 21:00 03/26/19 17:59 Lactulose (Cephulac) 10 gm THREE TIMES A DAY ORAL 03/02/19 18:00 04/01/19 12:59 03/02/19 18:40 Lansoprazole (Prevacid) 30 mg EVERY 12 HOURS ORAL 03/02/19 21:00 03/26/19 17:59 UNV Levetiracetam 100 ml @ 400 mls/hr Q12HR IVPB 03/02/19 21:00 03/21/19 08:59 Lorazepam (Ativan 2mg/ml 1ml) 1 mg Q4H PRN IV For Anxiety 03/02/19 18:30 03/04/19 18:29 Metronidazole 100 ml @ 100 mls/hr Q8HR IVPB 03/02/19 22:00 03/09/19 13:59 Micafungin Sodium 100 mg/Sodium Chloride 110 ml @ 110 mls/hr Q24H IVPB 03/03/19 10:30 03/10/19 10:29 Ondansetron HCl (Zofran) 4 mg Q6H PRN IVP Nausea & Vomiting 03/02/19 18:30 03/16/19 18:29 Rifaximin (Xifaxan) 550 mg EVERY 12 HOURS ORAL 03/02/19 21:00 03/09/19 20:59 Thiamine HCl (Vitamin B1) 100 mg DAILY NG 03/03/19 09:00 03/27/19 08:59 Vancomycin HCl (Vanco rx to dose) 1 ea DAILY PRN MISC Per rx protocol 03/03/19 09:00 03/17/19 12:59 Laboratory Tests 03/02/19 05:00: White Blood Count 16.4H, Red Blood Count 3.29L, Hemoglobin 10.0L, Hematocrit 31.4L, Mean Corpuscular Volume 95, Mean Corpuscular Hemoglobin 30.5, Mean Corpuscular Hemoglobin Concent 31.9L, Red Cell Distribution Width 16.6H, Platelet Count 423, Mean Platelet Volume 5.8L, Neutrophils (%) (Auto) 72.1, Lymphocytes (%) (Auto) 9.8L, Monocytes (%) (Auto) 15.1H, Eosinophils (%) (Auto) 1.4, Basophils (%) (Auto) 1.6, Sodium Level 148H, Potassium Level 3.3L, Chloride Level 113H, Carbon Dioxide Level 24, Anion Gap 11, Blood Urea Nitrogen 26H, Creatinine 1.9H, Estimat Glomerular Filtration Rate 44.8, Glucose Level 90 , Calcium Level 8.1L, Phosphorus Level 4.7, Magnesium Level 2.0, Total Bilirubin 11.0H, Direct Bilirubin 8.8H, Aspartate Amino Transf (AST/SGOT) 146H, Alanine Aminotransferase (ALT/SGPT) 52, Alkaline Phosphatase 281H, Total Protein 6.2L, Albumin 1.2L, Globulin 5.0, Albumin/Globulin Ratio 0.2L, Random Vancomycin Level 18.3 Height (Feet): 5 Height (Inches): 5.00 Weight (Pounds): 170 Objective exam stable, urine clearing Jeremy Matta MD Mar 02, 2019 20:21
--- NOTE | 2019-03-02 23:51 | General Progress Note ---
Assessment/Plan Status: progressing Assessment/Plan: 54 year old male with pMH of seizure disorder and etoh abuse admitted for seizures 2/2 non-compliance # Transaminitis - f/u HIDA : non obstructive, findings c/w intracellular damage - ctm - appreciate GI and Sx input - us shows nodularity and chronic disease - hep panel negative - ggt increased - f/u GI # Hemoptysis - resolved - s/p bronch 02/27 with Therapeutic aspiration and mucus plug from the endotracheal tube in right upper lobe., - monitor ett output - monitor hgb #severe septic shock likely 2/2 UTI - imprved #Gram negative bacteremia, now resolved by surveillance follow up blood culture #Acute respiratory failure requiting intubation s/p extubation 03/01 -abx per ID - Re culture ordered due to severe increase in the WBC from 15 to 26 to 29 thousand of unclear etiology - Hematology consult noted to be due to sepsis. - CBC serial. - CT 02/18 with atelectasis primarily - Diuresis started and good response -ID consult appreciated - Immunoglobulin and hepatitis panel negative. -cont ICU care --> plan to downgrade today -abg prn - Reviewed CT chest/abd/pel #Lactic acidosis - resolved -2/2 severe shock/ poss abd source/ seizures - 2 D Echo on 02/16 with EF 65%. Discussed with cardiology and etiology likely sepsis and not cardiogenic -CTM -Fluid boluses completed. -Cont mIVF #Coagulopathy # Thrombocytopenia - 40,000 stable Monitor. No active bleeding toay. - Hematology consult with Dr. Johnston appreciated. Flow cytometry pending. -likely 2/2 hepatic injury 2/2 shock - Consumption coagulopathy. - Consider platelet transfusion if LESS than 30K with urine blood tinge color. #Coffee ground emesis likely in setting of GI bleed -H/H trending down. Monitor -GI consult appreciated -s/p EGD, no significant findings, f/u biopsies #Seizures 2/2 noncomplaint with AED -s/p phenytoin load in ED -Cont Phenytoin -Neurology consult appreciated -pending EEG - no seizures noted in last 24 hours -Ativan PRN for seizures -NPO -Seizure precautions #Hypokalemia - Replete as needed #hypophosphatemia - Repleted. #Hypomagnesemia -repleted -CTM # Urethral hemorrhage and clot evacuation - stable - appreciate urology consult - If recurrent hemorrhage will address. - H/H and INR stat today. - Consider PRBC and Platelets if Hb < 8 or Plt < 30 K # Urinary retention PVR > 300 cc WILKINSON replaced 02/[address] ( in case of repeat hemorrhage ) D/w RN Code: Full Subjective Date patient seen: Mar 02, 2019 Allergies: Coded Allergies: No Known Allergies (Unverified , 02/10/15) Subjective No acute overnight events, had EGD yesterday, no sign sof acute bleed, f/u biopsy, states he feels better, denies pain, wants to eat, diet advanced after speech assessment Objective Last 24 Hour Vital Signs Date Time Temp Pulse Resp B/P (MAP) Pulse Ox O2 Delivery O2 Flow Rate FiO2 03/02/19 23:40 Room Air Room Air 03/02/19 19:55 97 Room Air 21 03/02/19 17:00 103 29 109/79 (89) 97 03/02/19 16:00 Room Air Room Air 03/02/19 16:00 98.6 102 30 114/75 (88) 97 03/02/19 16:00 111 03/02/19 15:00 105 27 114/79 (91) 96 03/02/19 14:00 99 25 109/78 (88) 97 03/02/19 13:59 99 Nasal Cannula 2.0 28 03/02/19 13:00 99 23 110/81 (91) 97 03/02/19 12:00 114 03/02/19 12:00 98.4 99 21 108/75 (86) 97 03/02/19 12:00 Nasal Cannula 3.0 Nasal Cannula 3.0 03/02/19 11:00 104 24 114/81 (92) 97 03/02/19 10:00 100 30 110/73 (85) 95 03/02/19 09:04 107/75 03/02/19 09:00 98.7 101 25 104/80 (88) 98 03/02/19 08:00 Nasal Cannula 3.0 Nasal Cannula 3.0 03/02/19 08:00 103 03/02/19 08:00 102 27 107/75 (86) 97 03/02/19 07:00 107 26 122/74 (90) 96 03/02/19 06:00 109 28 112/78 (89) 96 03/02/19 05:00 106 26 110/80 (90) 96 03/02/19 04:00 100 03/02/19 04:00 98.2 100 31 108/77 (87) 98 03/02/19 04:00 Nasal Cannula 3.0 Nasal Cannula 3.0 03/02/19 03:00 106 29 109/76 (87) 96 03/02/19 02:00 106 29 110/78 (89) 96 03/02/19 01:00 102 31 108/74 (85) 96 03/02/19 00:00 97.8 100 28 107/73 (84) 96 03/02/19 00:00 Nasal Cannula 3.0 Nasal Cannula 3.0 03/02/19 00:00 102 Intake and Output 03/01/19 03/02/19 19:00 07:00 Intake Total 420 ml 300 ml Output Total 850 ml 780 ml Balance -430 ml -480 ml IV Total 420 ml 300 ml Tube Feeding 0 ml 0 ml Output Urine Total 850 ml 780 ml # Bowel Movements 40 Laboratory Tests 03/02/19 05:00: White Blood Count 16.4H, Red Blood Count 3.29L, Hemoglobin 10.0L, Hematocrit 31.4L, Mean Corpuscular Volume 95, Mean Corpuscular Hemoglobin 30.5, Mean Corpuscular Hemoglobin Concent 31.9L, Red Cell Distribution Width 16.6H, Platelet Count 423, Mean Platelet Volume 5.8L, Neutrophils (%) (Auto) 72.1, Lymphocytes (%) (Auto) 9.8L, Monocytes (%) (Auto) 15.1H, Eosinophils (%) (Auto) 1.4, Basophils (%) (Auto) 1.6, Sodium Level 148H, Potassium Level 3.3L, Chloride Level 113H, Carbon Dioxide Level 24, Anion Gap 11, Blood Urea Nitrogen 26H, Creatinine 1.9H, Estimat Glomerular Filtration Rate 44.8, Glucose Level 90 , Calcium Level 8.1L, Phosphorus Level 4.7, Magnesium Level 2.0, Total Bilirubin 11.0H, Direct Bilirubin 8.8H, Aspartate Amino Transf (AST/SGOT) 146H, Alanine Aminotransferase (ALT/SGPT) 52, Alkaline Phosphatase 281H, Total Protein 6.2L, Albumin 1.2L, Globulin 5.0, Albumin/Globulin Ratio 0.2L, Random Vancomycin Level 18.3 Height (Feet): 5 Height (Inches): 5.00 Weight (Pounds): 170 Objective General appearance: extubated, calm Head: Normocephalic, without obvious abnormality, atraumatic Eyes: conjunctivae/corneas clear. PERRL, EOM's intact. Fundi benign Throat: Lips, mucosa, and tongue normal. Teeth and gums normal Neck: supple, symmetrical, trachea midline, no adenopathy, thyroid: not enlarged, symmetric, no tenderness/mass/nodules, no carotid bruit and no JVD Lungs: b/l air entry, no wheezing noted Heart: regular rate and rhythm, S1, S2 normal, no murmur, click, rub or gallop Abdomen: soft, non-tender. Bowel sounds normal. No masses, no organomegaly Extremities: extremities normal, atraumatic, no cyanosis or edema Pulses: 2+ and symmetric Skin: Skin color, texture, turgor normal. No rashes or lesions Neurologic: Grossly normal Lyn Cuevas MD Mar 02, 2019 23:51
[2019-03-03] VITALS: BP 119/73
[2019-03-03 04:00] VITALS: BP 118/88
[2019-03-03 05:35] LABS: BASOPHILS % (AUTO) 1.8 % (0.0-2.0); EOSINOPHILS % (AUTO) 2.2 % (0.0-3.0); HEMATOCRIT 30.3 % (42.0-52.0); HEMOGLOBIN 9.9 G/DL (14.2-18.0); LYMPHOCYTES % (AUTO) 11.6 % (20.0-45.0); MEAN CORPUSCULAR VOLUME 95 FL (80-99); MONOCYTES % (AUTO) 15.3 % (1.0-10.0); NEUTROPHILS % (AUTO) 69.2 % (45.0-75.0); PLATELET COUNT 400 K/UL (150-450); RED CELL DISTRIBUTION WIDTH 16.1 % (11.6-14.8); WHITE BLOOD COUNT 17.3 K/UL (4.8-10.8)
[2019-03-03 05:42] LABS: INR 1.6 (0.9-1.1)
[2019-03-03 05:43] LABS: AMMONIA 18 umol/L (11-32)
[2019-03-03 05:55] LABS: ALANINE AMINOTRANSFERASE 46 U/L (12-78); ALBUMIN 1.3 G/DL (3.4-5.0); ALBUMIN/GLOBULIN RATIO 0.2 (1.0-2.7); ALKALINE PHOSPHATASE 254 U/L (46-116); ANION GAP 10 mmol/L (5-15); ASPARTATE AMINO TRANSFERASE 113 U/L (15-37); BLOOD UREA NITROGEN 27 mg/dL (7-18); CALCIUM 7.8 MG/DL (8.5-10.1); CARBON DIOXIDE 24 MMOL/L (21-32); CHLORIDE 115 MMOL/L (98-107); PHOSPHORUS 3.6 MG/DL (2.5-4.9); POTASSIUM 3.3 MMOL/L (3.5-5.1); SODIUM 149 MMOL/L (136-145)
[2019-03-03 05:59] LABS: BILIRUBIN,DIRECT 8.1 MG/DL (0.0-0.3)
--- NOTE | 2019-03-03 07:15 | NUR ---
HAND-OFF: Report given to ESHA Almanza.
--- NOTE | 2019-03-03 07:42 | NUR ---
NURSE NOTES: Received report from Jessy Jimenez. Pt is sitting p in bed. Bed is in lowest position, side rails up X2, and call light is within reach. Will continue to monitor.
[2019-03-03 08:00] VITALS: BP 113/80
[2019-03-03] MEDS: Lactulose 10gm/15ml UDC ORAL SCH ×3 (08:19→18:28)
[2019-03-03] MEDS: Lactobacillus-GG tablet ORAL SCH ×2 (08:19→21:39)
[2019-03-03] MEDS: Thiamine 100mg tab NG SCH (08:19)
[2019-03-03] MEDS: Cefepime HCl 2 GM in D5W 110 ML IV SCH (08:20)
[2019-03-03] MEDS: levETIRAcetam 500mg/NS100ml 100 ML IVPB SCH (08:20)
[2019-03-03] MEDS ORDERED: NS 275ml ONE ×4 (09:44→15:47)
[2019-03-03] MEDS ORDERED: Tubing IV Secondary IV ONE ×2 (09:44→10:00)
[2019-03-03] MEDS: Micafungin 100 MG in NS 110 ML IVPB SCH (09:50)
[2019-03-03] MEDS ORDERED: D5W 275ml ONE (10:00)
[2019-03-03] MEDS ORDERED: Micafungin 100 MG in NS 110 ML IVPB SCH (10:30)
--- NOTE | 2019-03-03 10:54 | Nephrology Progress Note ---
Assessment/Plan Problem List: (1) STEFANI (acute kidney injury) Assessment: Cr lower (2) Septic shock (3) Electrolyte and fluid disorder (4) Abnormal LFTs Assessment: fatty liver (5) Hyperbilirubinemia Assessment - STEFANI (acute kidney injury) - Septic shock - Lactic acid acidosis - Abnormal LFTs - Gastrointestinal bleed - Alcohol withdrawal seizure Plan K and Mag and Phos supplement as needed discussed with RN PRN Albumin bolus for low bp Midodrine post extubation care start feeding Hemodynamic support Pressors / Fluids as needed Aim to correct the electrolyte and acid base imbalance monitor renal parameters gastric support switch dilantin to keppra as LFTs rising per orders Subjective ROS Limited/Unobtainable: No Constitutional: Reports: malaise Objective Objective Last 24 Hour Vital Signs Date Time Temp Pulse Resp B/P (MAP) Pulse Ox O2 Delivery O2 Flow Rate FiO2 03/03/19 09:00 Room Air Room Air 03/03/19 08:00 97.9 96 20 113/80 (91) 96 03/03/19 08:00 95 03/03/19 06:36 96 Room Air 21 03/03/19 04:00 98.4 95 20 118/88 (98) 96 03/03/19 04:00 95 03/03/19 00:00 99 03/03/19 00:00 98.1 99 18 119/73 (88) 96 03/02/19 23:40 Room Air Room Air 03/02/19 20:00 104 03/02/19 20:00 97.8 104 18 114/84 (94) 97 03/02/19 19:55 97 Room Air 21 03/02/19 17:00 103 29 109/79 (89) 97 03/02/19 16:00 Room Air Room Air 03/02/19 16:00 98.6 102 30 114/75 (88) 97 03/02/19 16:00 111 03/02/19 15:00 105 27 114/79 (91) 96 03/02/19 14:00 99 25 109/78 (88) 97 03/02/19 13:59 99 Nasal Cannula 2.0 28 03/02/19 13:00 99 23 110/81 (91) 97 03/02/19 12:00 114 03/02/19 12:00 98.4 99 21 108/75 (86) 97 03/02/19 12:00 Nasal Cannula 3.0 Nasal Cannula 3.0 03/02/19 11:00 104 24 114/81 (92) 97 Intake and Output 03/02/19 03/03/19 18:59 06:59 Intake Total 1320 ml 500 ml Output Total 650 ml 1100 ml Balance 670 ml -600 ml Intake Oral 90 ml 500 ml IV Total 1230 ml Tube Feeding 0 ml Output Urine Total 600 ml 1000 ml Stool Total 50 ml 100 ml Laboratory Tests 03/03/19 05:00: White Blood Count 17.3H, Red Blood Count 3.20L, Hemoglobin 9.9L, Hematocrit 30.3L, Mean Corpuscular Volume 95, Mean Corpuscular Hemoglobin 30.9, Mean Corpuscular Hemoglobin Concent 32.6, Red Cell Distribution Width 16.1H, Platelet Count 400, Mean Platelet Volume 5.8L, Neutrophils (%) (Auto) 69.2, Lymphocytes (%) (Auto) 11.6L, Monocytes (%) (Auto) 15.3H, Eosinophils (%) (Auto ) 2.2, Basophils (%) (Auto) 1.8, Prothrombin Time 16.6H, Prothromb Time International Ratio 1.6H, Activated Partial Thromboplast Time 39H, Sodium Level 149H, Potassium Level 3.3L, Chloride Level 115H, Carbon Dioxide Level 24, Anion Gap 10, Blood Urea Nitrogen 27H, Creatinine 2.0H, Estimat Glomerular Filtration Rate 42.3, Glucose Level 116H, Calcium Level 7.8L, Phosphorus Level 3.6, Magnesium Level 1.7L, Total Bilirubin 10.0H, Direct Bilirubin 8.1H, Aspartate Amino Transf (AST/SGOT) 113H, Alanine Aminotransferase (ALT/SGPT) 46, Alkaline Phosphatase 254H, Ammonia 18, Total Protein 6.5, Albumin 1.3L, Globulin 5.2, Albumin/Globulin Ratio 0.2L Height (Feet): 5 Height (Inches): 5.00 Weight (Pounds): 169 General Appearance: no apparent distress Objective no change Scotty Bailon MD Mar 03, 2019 10:54
[2019-03-03 12:00] VITALS: BP 118/59
--- NOTE | 2019-03-03 13:29 | NUR ---
CASE MANAGEMENT: REVIEW 03/03/2019 SI:SEPSIS. ACUTE RESP FAILURE. T 97.3 HR 102 RR 23 B/P 118/59 SATS 96% ON RA WBC 17.3 NA 149 K 3.3 CL 115 BUN 27 CR 2 GLU 116 CA 7.8 PHOS 1.7 TBILI 10 DBILI 8.1 AST 113 ALP 254 IS:RIFAXIMIN PO Q12H PREVACID PO Q12H THIAMINE NG QD KEPPRA IV Q12H KCL IV X1 CEFEPIME IV Q24H MICAFUNGIN IV Q24H FLAGYL IV Q8H TELE STATUS
--- NOTE | 2019-03-03 15:20 | General Progress Note ---
Assessment/Plan Status: progressing Assessment/Plan: Assessment (1) Coffee ground emesis ICD Codes: K92.0 - Hematemesis SNOMED: 77997763 (2) Episode of confusion ICD Codes: R41.0 - Disorientation, unspecified SNOMED: 58609499 (3) Gastrointestinal bleed ICD Codes: K92.2 - Gastrointestinal hemorrhage, unspecified SNOMED: 00515746 (4) Abnormal LFTs ICD Codes: R94.5 - Abnormal results of liver function studies SNOMED: 260010621 (5) Diarrhea ICD Codes: R19.7 - Diarrhea, unspecified SNOMED: 71951813 (6) Electrolyte and fluid disorder ICD Codes: E87.8 - Other disorders of electrolyte and fluid balance, not elsewhere classified SNOMED: 39563801 (7) Sepsis ICD Codes: A41.9 - Sepsis, unspecified organism Assessment/Plan SUMMARY OF FINDINGS: 1. Medium-sized hiatal hernia. 2. Portal hypertensive gastropathy, status post biopsy. US reviewed >> liver disease/cirrhosis with ascites. Assessment - Resp failure - diarrhea - UGIB - abnormal LFT, negative hepatitis serologies, s/p U/S x 2 (no biliary dilation) - ? cirrhosis and sepsis/hypoperfusion - h/o EtOH, possible early cirrhosis RECOMMENDATIONS: Follow up path. No evidence of any active GI bleeding at this time. consider colonoscopy if needed. await ST evaluation to advance diet low dose lactulose + xifaxan will consider paracentesis OB stool r/o GI bleed prn transfusions follow labs Recommendations - vital TF - probiotics - monitor stool output - abx per ID - d/c tylenol - min duration antifungal Rx - supportive care - EGD once stable - Surgical f/u re GB - Will consider doppler of hepatic vessels Subjective Allergies: Coded Allergies: No Known Allergies (Unverified , 02/10/15) Subjective above noted awake, conversant d/w community health nurse staff Objective Last 24 Hour Vital Signs Date Time Temp Pulse Resp B/P (MAP) Pulse Ox O2 Delivery O2 Flow Rate FiO2 03/03/19 12:00 103 03/03/19 12:00 97.3 102 23 118/59 (78) 96 03/03/19 09:00 Room Air Room Air 03/03/19 08:00 97.9 96 20 113/80 (91) 96 03/03/19 08:00 95 03/03/19 06:36 96 Room Air 21 03/03/19 04:00 98.4 95 20 118/88 (98) 96 03/03/19 04:00 95 03/03/19 00:00 99 03/03/19 00:00 98.1 99 18 119/73 (88) 96 03/02/19 23:40 Room Air Room Air 03/02/19 20:00 104 03/02/19 20:00 97.8 104 18 114/84 (94) 97 03/02/19 19:55 97 Room Air 21 03/02/19 17:00 103 29 109/79 (89) 97 03/02/19 16:00 Room Air Room Air 03/02/19 16:00 98.6 102 30 114/75 (88) 97 03/02/19 16:00 111 Intake and Output 03/02/19 03/03/19 19:00 07:00 Intake Total 1320 ml 500 ml Output Total 580 ml 1100 ml Balance 740 ml -600 ml Intake Oral 90 ml 500 ml IV Total 1230 ml Tube Feeding 0 ml Output Urine Total 530 ml 1000 ml Stool Total 50 ml 100 ml Laboratory Tests 03/03/19 05:00: White Blood Count 17.3H, Red Blood Count 3.20L, Hemoglobin 9.9L, Hematocrit 30.3L, Mean Corpuscular Volume 95, Mean Corpuscular Hemoglobin 30.9, Mean Corpuscular Hemoglobin Concent 32.6, Red Cell Distribution Width 16.1H, Platelet Count 400, Mean Platelet Volume 5.8L, Neutrophils (%) (Auto) 69.2, Lymphocytes (%) (Auto) 11.6L, Monocytes (%) (Auto) 15.3H, Eosinophils (%) (Auto ) 2.2, Basophils (%) (Auto) 1.8, Prothrombin Time 16.6H, Prothromb Time International Ratio 1.6H, Activated Partial Thromboplast Time 39H, Sodium Level 149H, Potassium Level 3.3L, Chloride Level 115H, Carbon Dioxide Level 24, Anion Gap 10, Blood Urea Nitrogen 27H, Creatinine 2.0H, Estimat Glomerular Filtration Rate 42.3, Glucose Level 116H, Calcium Level 7.8L, Phosphorus Level 3.6, Magnesium Level 1.7L, Total Bilirubin 10.0H, Direct Bilirubin 8.1H, Aspartate Amino Transf (AST/SGOT) 113H, Alanine Aminotransferase (ALT/SGPT) 46, Alkaline Phosphatase 254H, Ammonia 18, Total Protein 6.5, Albumin 1.3L, Globulin 5.2, Albumin/Globulin Ratio 0.2L Height (Feet): 5 Height (Inches): 5.00 Weight (Pounds): 169 Objective Debilitated awake, interactive NCAT supple CTA RRR abd soft, slightly distended no edema Madhav Goldberg MD Mar 03, 2019 15:20
[2019-03-03 16:18] VITALS: BP 112/72
--- NOTE | 2019-03-03 16:55 | NUR ---
NURSE NOTES: Pt managed to pull his hand out of the restraint and pulled out his PICC line. There is no bleeding noted. Pt denies pain. Placed patient back into restraints. Notified Dr. Cuevas. We will attempt to start a peripheral line. I will notify Dr. Cuevas if we are successful.
--- NOTE | 2019-03-03 17:21 | Cardiac Electrophysiology PN ---
Assessment/Plan Assessment/Plan 1. Sinus tachycardia up to 170s. No evidence of myocardial infarction . Due to sepsis and anemia and alcohol withdrawal. EF 60%. Now in SR in 90s 2. S/P Septic shock and E Coli bacteremia, on broad-spectrum IV antibiotics. 3. Troponin leak. Type 2. Repeat level 0.16 and now negative 4. S/P Respiratory failure. Self extubated S/P Bronchoscopy and removal of mucus plug 5. ETOH withdrawal 6. Seizures with noncompliance. 7. Upper gi bleed. S/P EGD and passed swallow eval 8. Hematuria, resolved 9. Coffe ground emesis. EGD showed a. Medium-sized hiatal hernia. b. Portal hypertensive gastropathy, status post biopsy. US >> liver disease/cirrhosis with ascites.FU Dr Yusuf NOLASCO RN Subjective Subjective Transferred out of ICU. Just pulled out his central line despite being in restraints. Confused. RN at bedside Objective Last 24 Hour Vital Signs Date Time Temp Pulse Resp B/P (MAP) Pulse Ox O2 Delivery O2 Flow Rate FiO2 03/03/19 16:18 97.0 98 22 112/72 (85) 96 03/03/19 16:00 57 03/03/19 12:00 103 03/03/19 12:00 97.3 102 23 118/59 (78) 96 03/03/19 09:00 Room Air Room Air 03/03/19 08:00 97.9 96 20 113/80 (91) 96 03/03/19 08:00 95 03/03/19 06:36 96 Room Air 21 03/03/19 04:00 98.4 95 20 118/88 (98) 96 03/03/19 04:00 95 03/03/19 00:00 99 03/03/19 00:00 98.1 99 18 119/73 (88) 96 03/02/19 23:40 Room Air Room Air 03/02/19 20:00 104 03/02/19 20:00 97.8 104 18 114/84 (94) 97 03/02/19 19:55 97 Room Air 21 Intake and Output 03/02/19 03/03/19 19:00 07:00 Intake Total 1320 ml 500 ml Output Total 580 ml 1100 ml Balance 740 ml -600 ml Intake Oral 90 ml 500 ml IV Total 1230 ml Tube Feeding 0 ml Output Urine Total 530 ml 1000 ml Stool Total 50 ml 100 ml Laboratory Tests Test 03/03/19 05:00 White Blood Count 17.3 K/UL (4.8-10.8) H Red Blood Count 3.20 M/UL (4.70-6.10) L Hemoglobin 9.9 G/DL (14.2-18.0) L Hematocrit 30.3 % (42.0-52.0) L Mean Corpuscular Volume 95 FL (80-99) Mean Corpuscular Hemoglobin 30.9 PG (27.0-31.0) Mean Corpuscular Hemoglobin Concent 32.6 G/DL (32.0-36.0) Red Cell Distribution Width 16.1 % (11.6-14.8) H Platelet Count 400 K/UL (150-450) Mean Platelet Volume 5.8 FL (6.5-10.1) L Neutrophils (%) (Auto) 69.2 % (45.0-75.0) Lymphocytes (%) (Auto) 11.6 % (20.0-45.0) L Monocytes (%) (Auto) 15.3 % (1.0-10.0) H Eosinophils (%) (Auto) 2.2 % (0.0-3.0) Basophils (%) (Auto) 1.8 % (0.0-2.0) Prothrombin Time 16.6 SEC (9.30-11.50) H Prothromb Time International Ratio 1.6 (0.9-1.1) H Activated Partial Thromboplast Time 39 SEC (23-33) H Sodium Level 149 MMOL/L (136-145) H Potassium Level 3.3 MMOL/L (3.5-5.1) L Chloride Level 115 MMOL/L (98-107) H Carbon Dioxide Level 24 MMOL/L (21-32) Anion Gap 10 mmol/L (5-15) Blood Urea Nitrogen 27 mg/dL (7-18) H Creatinine 2.0 MG/DL (0.55-1.30) H Estimat Glomerular Filtration Rate 42.3 mL/min (>60) Glucose Level 116 MG/DL (74-106) H Calcium Level 7.8 MG/DL (8.5-10.1) L Phosphorus Level 3.6 MG/DL (2.5-4.9) Magnesium Level 1.7 MG/DL (1.8-2.4) L Total Bilirubin 10.0 MG/DL (0.2-1.0) H Direct Bilirubin 8.1 MG/DL (0.0-0.3) H Aspartate Amino Transf (AST/SGOT) 113 U/L (15-37) H Alanine Aminotransferase (ALT/SGPT) 46 U/L (12-78) Alkaline Phosphatase 254 U/L (46-116) H Ammonia 18 umol/L (11-32) Total Protein 6.5 G/DL (6.4-8.2) Albumin 1.3 G/DL (3.4-5.0) L Globulin 5.2 g/dL Albumin/Globulin Ratio 0.2 (1.0-2.7) L Objective HEAD AND NECK: No JVD LUNGS: Decreased breath sounds. CARDIOVASCULAR: Regular S1 and S2 with no gallop or murmur. ABDOMEN: Soft. EXTREMITIES: No pitting edema. Fidencio Trevino MD Mar 03, 2019 17:21
--- NOTE | 2019-03-03 17:21 | General Progress Note ---
Assessment/Plan Status: progressing Assessment/Plan: 54 year old male with pMH of seizure disorder and etoh abuse admitted for seizures 2/2 non-compliance # Transaminitis - f/u HIDA : non obstructive, findings c/w intracellular damage - ctm - appreciate GI and Sx input - us shows nodularity and chronic disease - hep panel negative - ggt increased - f/u GI # Hemoptysis - resolved - s/p bronch 02/27 with Therapeutic aspiration and mucus plug from the endotracheal tube in right upper lobe., - monitor ett output - monitor hgb #severe septic shock likely 2/2 UTI - imprved #Gram negative bacteremia, now resolved by surveillance follow up blood culture #Acute respiratory failure requiting intubation s/p extubation 03/01 -abx per ID - Re culture ordered due to severe increase in the WBC from 15 to 26 to 29 thousand of unclear etiology - Hematology consult noted to be due to sepsis. - CBC serial. - CT 02/18 with atelectasis primarily - Diuresis -ID consult appreciated - Immunoglobulin and hepatitis panel negative. -abg prn - Reviewed CT chest/abd/pel #Lactic acidosis - resolved -2/2 severe shock/ poss abd source/ seizures - 2 D Echo on 02/16 with EF 65%. Discussed with cardiology and etiology likely sepsis and not cardiogenic -CTM -Fluid boluses completed. -Cont mIVF #Coagulopathy # Thrombocytopenia - 40,000 stable Monitor. No active bleeding toay. - Hematology consult with Dr. Johnston appreciated. Flow cytometry pending. -likely 2/2 hepatic injury 2/2 shock - Consumption coagulopathy. - Consider platelet transfusion if LESS than 30K with urine blood tinge color. #Coffee ground emesis likely in setting of GI bleed -H/H trending down. Monitor -GI consult appreciated -s/p EGD, no significant findings, f/u biopsies #Seizures 2/2 noncomplaint with AED -s/p phenytoin load in ED -Cont Phenytoin -Neurology consult appreciated -pending EEG - no seizures noted in last 24 hours -Ativan PRN for seizures -NPO -Seizure precautions #Hypokalemia - Replete as needed #hypophosphatemia - Repleted. #Hypomagnesemia -repleted -CTM # Urethral hemorrhage and clot evacuation - stable - appreciate urology consult - If recurrent hemorrhage will address. - H/H and INR stat today. - Consider PRBC and Platelets if Hb < 8 or Plt < 30 K # Urinary retention PVR > 300 cc WILKINSON replaced 02/[address] ( in case of repeat hemorrhage ) D/w RN Code: Full Subjective Date patient seen: Mar 03, 2019 Allergies: Coded Allergies: No Known Allergies (Unverified , 02/10/15) Subjective No acute overnight events, had EGD with no sign sof acute bleed, f/u biopsy, states he feels better, denies pain, wants to eat, diet advanced tolerating well Objective Last 24 Hour Vital Signs Date Time Temp Pulse Resp B/P (MAP) Pulse Ox O2 Delivery O2 Flow Rate FiO2 03/03/19 16:18 97.0 98 22 112/72 (85) 96 03/03/19 16:00 57 03/03/19 12:00 103 03/03/19 12:00 97.3 102 23 118/59 (78) 96 03/03/19 09:00 Room Air Room Air 03/03/19 08:00 97.9 96 20 113/80 (91) 96 03/03/19 08:00 95 03/03/19 06:36 96 Room Air 21 03/03/19 04:00 98.4 95 20 118/88 (98) 96 03/03/19 04:00 95 03/03/19 00:00 99 03/03/19 00:00 98.1 99 18 119/73 (88) 96 03/02/19 23:40 Room Air Room Air 03/02/19 20:00 104 03/02/19 20:00 97.8 104 18 114/84 (94) 97 03/02/19 19:55 97 Room Air 21 Intake and Output 03/02/19 03/03/19 19:00 07:00 Intake Total 1320 ml 500 ml Output Total 580 ml 1100 ml Balance 740 ml -600 ml Intake Oral 90 ml 500 ml IV Total 1230 ml Tube Feeding 0 ml Output Urine Total 530 ml 1000 ml Stool Total 50 ml 100 ml Laboratory Tests 03/03/19 05:00: White Blood Count 17.3H, Red Blood Count 3.20L, Hemoglobin 9.9L, Hematocrit 30.3L, Mean Corpuscular Volume 95, Mean Corpuscular Hemoglobin 30.9, Mean Corpuscular Hemoglobin Concent 32.6, Red Cell Distribution Width 16.1H, Platelet Count 400, Mean Platelet Volume 5.8L, Neutrophils (%) (Auto) 69.2, Lymphocytes (%) (Auto) 11.6L, Monocytes (%) (Auto) 15.3H, Eosinophils (%) (Auto ) 2.2, Basophils (%) (Auto) 1.8, Prothrombin Time 16.6H, Prothromb Time International Ratio 1.6H, Activated Partial Thromboplast Time 39H, Sodium Level 149H, Potassium Level 3.3L, Chloride Level 115H, Carbon Dioxide Level 24, Anion Gap 10, Blood Urea Nitrogen 27H, Creatinine 2.0H, Estimat Glomerular Filtration Rate 42.3, Glucose Level 116H, Calcium Level 7.8L, Phosphorus Level 3.6, Magnesium Level 1.7L, Total Bilirubin 10.0H, Direct Bilirubin 8.1H, Aspartate Amino Transf (AST/SGOT) 113H, Alanine Aminotransferase (ALT/SGPT) 46, Alkaline Phosphatase 254H, Ammonia 18, Total Protein 6.5, Albumin 1.3L, Globulin 5.2, Albumin/Globulin Ratio 0.2L Height (Feet): 5 Height (Inches): 5.00 Weight (Pounds): 169 Objective General appearance: extubated, calm Head: Normocephalic, without obvious abnormality, atraumatic Eyes: conjunctivae/corneas clear. PERRL, EOM's intact. Fundi benign Throat: Lips, mucosa, and tongue normal. Teeth and gums normal Neck: supple, symmetrical, trachea midline, no adenopathy, thyroid: not enlarged, symmetric, no tenderness/mass/nodules, no carotid bruit and no JVD Lungs: b/l air entry, no wheezing noted Heart: regular rate and rhythm, S1, S2 normal, no murmur, click, rub or gallop Abdomen: soft, non-tender. Bowel sounds normal. No masses, no organomegaly Extremities: extremities normal, atraumatic, no cyanosis or edema Pulses: 2+ and symmetric Skin: Skin color, texture, turgor normal. No rashes or lesions Neurologic: Grossly normal Lyn Cuevas MD Mar 03, 2019 17:21
--- NOTE | 2019-03-03 17:30 | NUR ---
NURSE NOTES: Several attempts to start a peripheral line were unsuccessful. Called ICU to ask if they could attempt IV insertion. Per ICU, pt is a very hard stick and he will likely need a picc line placed. Contacted Dr. Cuevas regarding the unsuccessful attempts. Also informed her that Pt has keppra IV tonight and IV antibiotics tomorrow morning. Will await response.
--- NOTE | 2019-03-03 18:48 | NUR ---
NURSE NOTES: Dr. Cuevas replied, stating to change the keppra for lily to PO.
--- NOTE | 2019-03-03 19:15 | NUR ---
NURSE NOTES: Per Dr. Faith sun to change IV keppra and FLagyl to PO until Access is established. Per Dr. Faith sun to contact Dr. Marcus tomorrow and ask if he can insert a PICC line at bedside.
--- NOTE | 2019-03-03 19:16 | NUR ---
HAND-OFF: Report given to Jessy Jimenez. Plan of care endorsed
--- NOTE | 2019-03-03 19:20 | NUR ---
NURSE NOTES: Received report from ESHA Almanza. Pt is awake and resting in bed. In no acute distress. No IV access at this time, MD aware. Bed in lowest position, call light within reach. Will continue plan of care.
[2019-03-03 20:00] VITALS: BP 120/80
--- NOTE | 2019-03-03 20:20 | Urology Progress Note ---
Assessment/Plan Status: progressing Assessment/Plan: 1. Gross hematuria history, improved. 2. Urinary retention. 3. Probable neurogenic bladder. 4. Urinary tract infection history. 5. Sepsis history. monitor clinically delgado indwelling hand irrigate PRN abx as ordered renal fxn stable add flomax voding trial soon? Subjective Allergies: Coded Allergies: No Known Allergies (Unverified , 02/10/15) Subjective all noted, transferred out of ICU Objective Last 24 Hour Vital Signs Date Time Temp Pulse Resp B/P (MAP) Pulse Ox O2 Delivery O2 Flow Rate FiO2 03/03/19 16:18 97.0 98 22 112/72 (85) 96 03/03/19 16:00 57 03/03/19 12:00 103 03/03/19 12:00 97.3 102 23 118/59 (78) 96 03/03/19 09:00 Room Air Room Air 03/03/19 08:00 97.9 96 20 113/80 (91) 96 03/03/19 08:00 95 03/03/19 06:36 96 Room Air 21 03/03/19 04:00 98.4 95 20 118/88 (98) 96 03/03/19 04:00 95 03/03/19 00:00 99 03/03/19 00:00 98.1 99 18 119/73 (88) 96 03/02/19 23:40 Room Air Room Air Intake and Output 03/02/19 03/03/19 19:00 07:00 Intake Total 1320 ml 500 ml Output Total 580 ml 1100 ml Balance 740 ml -600 ml Intake Oral 90 ml 500 ml IV Total 1230 ml Tube Feeding 0 ml Output Urine Total 530 ml 1000 ml Stool Total 50 ml 100 ml Microbiology Date/Time Source Procedure Growth Status 02/25/19 09:15 Blood Blood Culture - Final NO GROWTH AFTER 5 DAYS Complete 02/27/19 15:00 Sputum Expectorated Pneumocystis jiroveci Smear (DFA) - Final Complete 02/22/19 23:55 Stool Clostridium difficile Toxin Assay - Final Complete 02/25/19 09:05 Indwelling Cath Urine Culture - Final NO GROWTH AFTER 48 HOURS Complete Current Medications Medications (Trade) Dose Ordered Sig/Tonny Route PRN Reason Start Time Stop Time Status Last Admin Dose Admin Acetaminophen (Tylenol) 650 mg Q4H PRN ORAL Mild Pain (Pain Scale 1-3) 03/02/19 18:00 03/16/19 17:59 Acetaminophen (Tylenol) 650 mg Q4H PRN RECTAL Mild Pain (Pain Scale 1-3) 03/02/19 18:00 03/18/19 17:59 Cefepime HCl 2 gm/ Dextrose 110 ml @ 220 mls/hr Q24H IV 03/03/19 09:00 03/09/19 08:59 03/03/19 08:20 Chlorhexidine Gluconate (Stephanie-Hex 2%) 1 applic DAILY@2000 TOPIC 03/02/19 20:00 03/21/19 19:59 03/02/19 20:46 Dextrose (Dextrose 50%) 25 ml Q30M PRN IV Hypoglycemia 03/02/19 17:45 03/16/19 16:14 Dextrose (Dextrose 50%) 50 ml Q30M PRN IV Hypoglycemia 03/02/19 17:45 03/16/19 16:14 Lactobacillus Acidophilus (Culturelle) 1 tab EVERY 12 HOURS ORAL 03/02/19 21:00 03/26/19 17:59 03/03/19 08:19 Lactulose (Cephulac) 10 gm THREE TIMES A DAY ORAL 03/02/19 18:00 04/01/19 12:59 03/03/19 18:28 Lansoprazole (Prevacid) 30 mg EVERY 12 HOURS ORAL 03/02/19 21:00 03/26/19 17:59 03/03/19 08:19 Levetiracetam (Keppra) 500 mg Q12HR ORAL 03/03/19 21:00 04/02/19 20:59 Lorazepam (Ativan 2mg/ml 1ml) 1 mg Q4H PRN IV For Anxiety 03/02/19 18:30 03/04/19 18:29 Metronidazole (Flagyl) 500 mg Q8HR ORAL 03/03/19 22:00 03/10/19 21:59 Micafungin Sodium 100 mg/Sodium Chloride 110 ml @ 110 mls/hr Q24H IVPB 03/03/19 10:30 03/10/19 10:29 03/03/19 09:50 Ondansetron HCl (Zofran) 4 mg Q6H PRN IVP Nausea & Vomiting 03/02/19 18:30 03/16/19 18:29 Rifaximin (Xifaxan) 550 mg EVERY 12 HOURS ORAL 03/02/19 21:00 03/09/19 20:59 03/03/19 08:19 Thiamine HCl (Vitamin B1) 100 mg DAILY NG 03/03/19 09:00 03/27/19 08:59 03/03/19 08:19 Vancomycin HCl (Vanco rx to dose) 1 ea DAILY PRN MISC Per rx protocol 03/03/19 09:00 03/17/19 12:59 Laboratory Tests 03/03/19 05:00: White Blood Count 17.3H, Red Blood Count 3.20L, Hemoglobin 9.9L, Hematocrit 30.3L, Mean Corpuscular Volume 95, Mean Corpuscular Hemoglobin 30.9, Mean Corpuscular Hemoglobin Concent 32.6, Red Cell Distribution Width 16.1H, Platelet Count 400, Mean Platelet Volume 5.8L, Neutrophils (%) (Auto) 69.2, Lymphocytes (%) (Auto) 11.6L, Monocytes (%) (Auto) 15.3H, Eosinophils (%) (Auto ) 2.2, Basophils (%) (Auto) 1.8, Prothrombin Time 16.6H, Prothromb Time International Ratio 1.6H, Activated Partial Thromboplast Time 39H, Sodium Level 149H, Potassium Level 3.3L, Chloride Level 115H, Carbon Dioxide Level 24, Anion Gap 10, Blood Urea Nitrogen 27H, Creatinine 2.0H, Estimat Glomerular Filtration Rate 42.3, Glucose Level 116H, Calcium Level 7.8L, Phosphorus Level 3.6, Magnesium Level 1.7L, Total Bilirubin 10.0H, Direct Bilirubin 8.1H, Aspartate Amino Transf (AST/SGOT) 113H, Alanine Aminotransferase (ALT/SGPT) 46, Alkaline Phosphatase 254H, Ammonia 18, Total Protein 6.5, Albumin 1.3L, Globulin 5.2, Albumin/Globulin Ratio 0.2L Height (Feet): 5 Height (Inches): 5.00 Weight (Pounds): 169 Objective exam stable, urine clearing Jeremy Matta MD Mar 03, 2019 20:20
--- NOTE | 2019-03-03 21:33 | Hematology/Onc Progress Note ---
Assessment/Plan Assessment/Plan # Bicytopenia with anemia likely due to Gi bleed -- stool occult blood +, requires further eval with gi, also with etoh withdrawal, also can be related to meds/abx, Hida shows Limited hepatic uptake and excretion, probably due to hepatocellular disease. Note that previous imaging studies suggest the presence of cirrhotic changes. --> anemia panel has been reviewed and results are acd --> peripheral smear reviewed and not noted to have blasts --> wbc remains elevated --> started on folate 1mg po daily (LOW FOLATE) --> Flow cytometry shows no evidence of b-lymphoproliferative disorder --> Hep panel negative # Anemia of chronic disease, per anemia panel --> hgb trend 8-->7-->8-->9-->8.6-->7.7-->7.9-->8.3-->7.9->8.5-->9-->10-->9.9 --> may require gi eval when more stable with scope (EGD) --> transfuse if hb <7 --> cont folic acid and thiamine # Leukocytosis due to Septic shock and severe Lactic acidosis on Levophed and broad-spectrum IV antibiotics. --> per ID care, continue abx --> pressor as needed --> vanc/zosyn, flucon --> Hgb trend: 34.9 -->28k-->35k-->17k # Sinus tachycardia up to 170s. No evidence of acute myocardial infarction . --> This is likely due to sepsis and anemia, alcohol withdrawal --> Echo Nl EF 60% # Troponin leak, type 2. --> per cards # Respiratory failure on the vent. Failed weaning --> sbt trial per pulm, now extubated --> 02/27 the bronchoscope was advanced into both mainstem bronchi and subsegmental bronchi. There was increased secretions bilaterally, mucopurulent including mucus plugging of the right upper lobe, which was therapeutically aspirated. BAL specimen was sent. # Transaminitis with elev bilis --> as per gi with ast/alt high --> monitor for resol of sepsis # ETOH withdrawal --> recommend etoh cessation # Seizures with noncompliance Greatly appreciate consultation. Subjective Constitutional: Denies: no symptoms, chills, fever, malaise, weakness, other Cardiovascular: Denies: no symptoms, chest pain, edema, irregular heart rate, lightheadedness, palpitations, syncope, other Respiratory: Denies: no symptoms, cough, shortness of breath, SOB with excertion, SOB at rest, sputum, wheezing, other Gastrointestinal/Abdominal: Denies: no symptoms, abdomen distended, abdominal pain, black stools, tarry stools, blood in stool, constipated, diarrhea, difficulty swallowing, nausea, poor appetite, poor fluid intake, rectal bleeding , vomiting, other Allergies: Coded Allergies: No Known Allergies (Unverified , 02/10/15) Subjective 02/20: intubated, counts are better, on vent, sbt in process, no f/c, mag low 02/21: endoscopy on hold at this time, bloody stool, plt better, on abx 02/22: no events reported, remains intubated, no bleeding, plt better, k is low, repleted\ 02/23: remains in icu, letargic, flow cytometry showed no evidence of b- lymphoproliferative disorder, c-diif negative, labs reviewed, remains on levo 02/24: in icu, on vent, wbc at 32, id made aware. 02/25: icu, weaning off of vent, labs reviewed, continues on abx 02/26: no fc, no changes reported, wbc high, ongoing hida scan 02/27: no events, bronch to be done today, results pending 02/28: no f/c, restraints++, ogt was inserted 03/01: s/p extubation, self-extubated, otherwise on abx, off pressors 03/02: no events too report, labs have been reviewed, off abx, remains agitated 03/03 no fevers or chills, no changes, breathing better, less altered Objective Objective Current Medications Medications (Trade) Dose Ordered Sig/Tonny Route PRN Reason Start Time Stop Time Status Last Admin Dose Admin Acetaminophen (Tylenol) 650 mg Q4H PRN ORAL Mild Pain (Pain Scale 1-3) 03/02/19 18:00 03/16/19 17:59 Acetaminophen (Tylenol) 650 mg Q4H PRN RECTAL Mild Pain (Pain Scale 1-3) 03/02/19 18:00 03/18/19 17:59 Cefepime HCl 2 gm/ Dextrose 110 ml @ 220 mls/hr Q24H IV 03/03/19 09:00 03/09/19 08:59 03/03/19 08:20 Dextrose (Dextrose 50%) 25 ml Q30M PRN IV Hypoglycemia 03/02/19 17:45 03/16/19 16:14 Dextrose (Dextrose 50%) 50 ml Q30M PRN IV Hypoglycemia 03/02/19 17:45 03/16/19 16:14 Lactobacillus Acidophilus (Culturelle) 1 tab EVERY 12 HOURS ORAL 03/02/19 21:00 03/26/19 17:59 03/03/19 08:19 Lactulose (Cephulac) 10 gm THREE TIMES A DAY ORAL 03/02/19 18:00 04/01/19 12:59 03/03/19 18:28 Lansoprazole (Prevacid) 30 mg EVERY 12 HOURS ORAL 03/02/19 21:00 03/26/19 17:59 03/03/19 08:19 Levetiracetam (Keppra) 500 mg Q12HR ORAL 03/03/19 21:00 04/02/19 20:59 Lorazepam (Ativan 2mg/ml 1ml) 1 mg Q4H PRN IV For Anxiety 03/02/19 18:30 03/04/19 18:29 Metronidazole (Flagyl) 500 mg Q8HR ORAL 03/03/19 22:00 03/10/19 21:59 Micafungin Sodium 100 mg/Sodium Chloride 110 ml @ 110 mls/hr Q24H IVPB 03/03/19 10:30 03/10/19 10:29 03/03/19 09:50 Ondansetron HCl (Zofran) 4 mg Q6H PRN IVP Nausea & Vomiting 03/02/19 18:30 03/16/19 18:29 Rifaximin (Xifaxan) 550 mg EVERY 12 HOURS ORAL 03/02/19 21:00 03/09/19 20:59 03/03/19 08:19 Tamsulosin HCl (Flomax) 0.4 mg BEDTIME ORAL 03/03/19 21:00 04/02/19 20:59 Thiamine HCl (Vitamin B1) 100 mg DAILY NG 03/03/19 09:00 03/27/19 08:59 03/03/19 08:19 Vancomycin HCl (Vanco rx to dose) 1 ea DAILY PRN MISC Per rx protocol 03/03/19 09:00 03/17/19 12:59 Last 24 Hour Vital Signs Date Time Temp Pulse Resp B/P (MAP) Pulse Ox O2 Delivery O2 Flow Rate FiO2 03/03/19 16:18 97.0 98 22 112/72 (85) 96 03/03/19 16:00 57 03/03/19 12:00 103 03/03/19 12:00 97.3 102 23 118/59 (78) 96 03/03/19 09:00 Room Air Room Air 03/03/19 08:00 97.9 96 20 113/80 (91) 96 03/03/19 08:00 95 03/03/19 06:36 96 Room Air 21 03/03/19 04:00 98.4 95 20 118/88 (98) 96 03/03/19 04:00 95 03/03/19 00:00 99 03/03/19 00:00 98.1 99 18 119/73 (88) 96 03/02/19 23:40 Room Air Room Air 03/02/19 20:00 104 03/02/19 20:00 97.8 104 18 114/84 (94) 97 03/02/19 19:55 97 Room Air 21 03/02/19 17:00 103 29 109/79 (89) 97 03/02/19 16:00 Room Air Room Air 03/02/19 16:00 98.6 102 30 114/75 (88) 97 03/02/19 16:00 111 03/02/19 15:00 105 27 114/79 (91) 96 03/02/19 14:00 99 25 109/78 (88) 97 03/02/19 13:59 99 Nasal Cannula 2.0 28 03/02/19 13:00 99 23 110/81 (91) 97 03/02/19 12:00 114 03/02/19 12:00 98.4 99 21 108/75 (86) 97 03/02/19 12:00 Nasal Cannula 3.0 Nasal Cannula 3.0 03/02/19 11:00 104 24 114/81 (92) 97 03/02/19 10:00 100 30 110/73 (85) 95 03/02/19 09:04 107/75 03/02/19 09:00 98.7 101 25 104/80 (88) 98 03/02/19 08:00 Nasal Cannula 3.0 Nasal Cannula 3.0 03/02/19 08:00 103 03/02/19 08:00 102 27 107/75 (86) 97 03/02/19 07:00 107 26 122/74 (90) 96 03/02/19 06:00 109 28 112/78 (89) 96 03/02/19 05:00 106 26 110/80 (90) 96 03/02/19 04:00 100 03/02/19 04:00 98.2 100 31 108/77 (87) 98 03/02/19 04:00 Nasal Cannula 3.0 Nasal Cannula 3.0 03/02/19 03:00 106 29 109/76 (87) 96 03/02/19 02:00 106 29 110/78 (89) 96 03/02/19 01:00 102 31 108/74 (85) 96 03/02/19 00:00 97.8 100 28 107/73 (84) 96 03/02/19 00:00 Nasal Cannula 3.0 Nasal Cannula 3.0 03/02/19 00:00 102 03/01/19 23:00 98 30 103/77 (86) 96 03/01/19 22:30 101 113/68 03/01/19 22:00 101 26 113/68 (83) 98 Intake and Output 03/02/19 03/03/19 19:00 07:00 Intake Total 1320 ml 500 ml Output Total 580 ml 1100 ml Balance 740 ml -600 ml Intake Oral 90 ml 500 ml IV Total 1230 ml Tube Feeding 0 ml Output Urine Total 530 ml 1000 ml Stool Total 50 ml 100 ml Labs Test 03/01/19 04:30 03/01/19 09:47 03/02/19 05:00 03/03/19 05:00 White Blood Count 17.7 K/UL (4.8-10.8) 16.4 K/UL (4.8-10.8) 17.3 K/UL (4.8-10.8) Red Blood Count 2.91 M/UL (4.70-6.10) 3.29 M/UL (4.70-6.10) 3.20 M/UL (4.70-6.10) Hemoglobin 9.0 G/DL (14.2-18.0) 10.0 G/DL (14.2-18.0) 9.9 G/DL (14.2-18.0) Hematocrit 27.8 % (42.0-52.0) 31.4 % (42.0-52.0) 30.3 % (42.0-52.0) Mean Corpuscular Volume 95 FL (80-99) 95 FL (80-99) 95 FL (80-99) Mean Corpuscular Hemoglobin 31.0 PG (27.0-31.0) 30.5 PG (27.0-31.0) 30.9 PG (27.0-31.0) Mean Corpuscular Hemoglobin Concent 32.5 G/DL (32.0-36.0) 31.9 G/DL (32.0-36.0) 32.6 G/DL (32.0-36.0) Red Cell Distribution Width 15.9 % (11.6-14.8) 16.6 % (11.6-14.8) 16.1 % (11.6-14.8) Platelet Count 417 K/UL (150-450) 423 K/UL (150-450) 400 K/UL (150-450) Mean Platelet Volume 6.0 FL (6.5-10.1) 5.8 FL (6.5-10.1) 5.8 FL (6.5-10.1) Neutrophils (%) (Auto) 69.0 % (45.0-75.0) 72.1 % (45.0-75.0) 69.2 % (45.0-75.0) Lymphocytes (%) (Auto) 10.0 % (20.0-45.0) 9.8 % (20.0-45.0) 11.6 % (20.0-45.0) Monocytes (%) (Auto) 16.8 % (1.0-10.0) 15.1 % (1.0-10.0) 15.3 % (1.0-10.0) Eosinophils (%) (Auto) 2.3 % (0.0-3.0) 1.4 % (0.0-3.0) 2.2 % (0.0-3.0) Basophils (%) (Auto) 1.9 % (0.0-2.0) 1.6 % (0.0-2.0) 1.8 % (0.0-2.0) Prothrombin Time 16.1 SEC (9.30-11.50) 16.6 SEC (9.30-11.50) Prothromb Time International Ratio 1.5 (0.9-1.1) 1.6 (0.9-1.1) Activated Partial Thromboplast Time 39 SEC (23-33) 39 SEC (23-33) Sodium Level 146 MMOL/L (136-145) 148 MMOL/L (136-145) 149 MMOL/L (136-145) Potassium Level 3.5 MMOL/L (3.5-5.1) 3.3 MMOL/L (3.5-5.1) 3.3 MMOL/L (3.5-5.1) Chloride Level 112 MMOL/L (98-107) 113 MMOL/L (98-107) 115 MMOL/L (98-107) Carbon Dioxide Level 25 MMOL/L (21-32) 24 MMOL/L (21-32) 24 MMOL/L (21-32) Anion Gap 9 mmol/L (5-15) 11 mmol/L (5-15) 10 mmol/L (5-15) Blood Urea Nitrogen 20 mg/dL (7-18) 26 mg/dL (7-18) 27 mg/dL (7-18) Creatinine 1.8 MG/DL (0.55-1.30) 1.9 MG/DL (0.55-1.30) 2.0 MG/DL (0.55-1.30) Estimat Glomerular Filtration Rate 47.8 mL/min (>60) 44.8 mL/min (>60) 42.3 mL/min (>60) Glucose Level 90 MG/DL (74-106) 90 MG/DL (74-106) 116 MG/DL (74-106) Uric Acid 4.0 MG/DL (2.6-7.2) Calcium Level 8.0 MG/DL (8.5-10.1) 8.1 MG/DL (8.5-10.1) 7.8 MG/DL (8.5-10.1) Phosphorus Level 3.8 MG/DL (2.5-4.9) 4.7 MG/DL (2.5-4.9) 3.6 MG/DL (2.5-4.9) Magnesium Level 2.1 MG/DL (1.8-2.4) 2.0 MG/DL (1.8-2.4) 1.7 MG/DL (1.8-2.4) Total Bilirubin 11.2 MG/DL (0.2-1.0) 11.0 MG/DL (0.2-1.0) 10.0 MG/DL (0.2-1.0) Direct Bilirubin 9.2 MG/DL (0.0-0.3) 8.8 MG/DL (0.0-0.3) 8.1 MG/DL (0.0-0.3) Gamma Glutamyl Transpeptidase 586 U/L (5-85) Aspartate Amino Transf (AST/SGOT) 158 U/L (15-37) 146 U/L (15-37) 113 U/L (15-37) Alanine Aminotransferase (ALT/SGPT) 55 U/L (12-78) 52 U/L (12-78) 46 U/L (12-78) Alkaline Phosphatase 281 U/L (46-116) 281 U/L (46-116) 254 U/L (46-116) C-Reactive Protein, Quantitative 7.0 mg/dL (0.00-0.90) Pro-B-Type Natriuretic Peptide 1723 pg/mL (0-125) Total Protein 6.1 G/DL (6.4-8.2) 6.2 G/DL (6.4-8.2) 6.5 G/DL (6.4-8.2) Albumin 1.3 G/DL (3.4-5.0) 1.2 G/DL (3.4-5.0) 1.3 G/DL (3.4-5.0) Random Vancomycin Level 25.3 ug/mL 18.3 ug/mL Arterial Blood pH 7.516 (7.350-7.450) Arterial Blood Partial Pressure CO2 31.8 mmHg (35.0-45.0) Arterial Blood Partial Pressure O2 100.0 mmHg (75.0-100.0) Arterial Blood HCO3 25.2 mmol/L (22.0-26.0) Arterial Blood Oxygen Saturation 97.3 % (95-100) Arterial Blood Base Excess 2.5 (-2-2) Cesar Test Positive Globulin 5.0 g/dL 5.2 g/dL Albumin/Globulin Ratio 0.2 (1.0-2.7) 0.2 (1.0-2.7) Ammonia 18 umol/L (11-32) Height (Feet): 5 Height (Inches): 5.00 Weight (Pounds): 169 Objective Gen: NAD HEENT: atraumatic, other - OGT Lungs: clear, ++nc 2l Heart: HR/BP unstable Abdomen: soft, non-tender, active bowel sounds Extremities: no cce, L femoral cath+ Robert Johnston MD Mar 03, 2019 21:33
[2019-03-03] MEDS: metroNIDAZOLE 500mg tab ORAL SCH (21:39)
[2019-03-03] MEDS: Tamsulosin 0.4mg cap ORAL SCH (21:39)
--- NOTE | 2019-03-03 22:04 | Surgery Progress Note ---
Surgery Progress Note Subjective Procedure Performed left femoral central venous catheter insertion Additional Comments pulled out picc line downgraded overall stable and improving slowly labs noted exam unchanged. Objective Last 24 Hour Vital Signs Date Time Temp Pulse Resp B/P (MAP) Pulse Ox O2 Delivery O2 Flow Rate FiO2 03/03/19 16:18 97.0 98 22 112/72 (85) 96 03/03/19 16:00 57 03/03/19 12:00 103 03/03/19 12:00 97.3 102 23 118/59 (78) 96 03/03/19 09:00 Room Air Room Air 03/03/19 08:00 97.9 96 20 113/80 (91) 96 03/03/19 08:00 95 03/03/19 06:36 96 Room Air 21 03/03/19 04:00 98.4 95 20 118/88 (98) 96 03/03/19 04:00 95 03/03/19 00:00 99 03/03/19 00:00 98.1 99 18 119/73 (88) 96 03/02/19 23:40 Room Air Room Air I&O Intake and Output 03/02/19 03/03/19 19:00 07:00 Intake Total 1320 ml 500 ml Output Total 580 ml 1100 ml Balance 740 ml -600 ml Intake Oral 90 ml 500 ml IV Total 1230 ml Tube Feeding 0 ml Output Urine Total 530 ml 1000 ml Stool Total 50 ml 100 ml Dressing: dry Wound: clean Cardiovascular: RSR Respiratory: clear Abdomen: soft, distended - fluid, present bowel sounds, non-distended Extremities: no cyanosis Laboratory Tests Test 03/03/19 05:00 White Blood Count 17.3 K/UL (4.8-10.8) H Red Blood Count 3.20 M/UL (4.70-6.10) L Hemoglobin 9.9 G/DL (14.2-18.0) L Hematocrit 30.3 % (42.0-52.0) L Mean Corpuscular Volume 95 FL (80-99) Mean Corpuscular Hemoglobin 30.9 PG (27.0-31.0) Mean Corpuscular Hemoglobin Concent 32.6 G/DL (32.0-36.0) Red Cell Distribution Width 16.1 % (11.6-14.8) H Platelet Count 400 K/UL (150-450) Mean Platelet Volume 5.8 FL (6.5-10.1) L Neutrophils (%) (Auto) 69.2 % (45.0-75.0) Lymphocytes (%) (Auto) 11.6 % (20.0-45.0) L Monocytes (%) (Auto) 15.3 % (1.0-10.0) H Eosinophils (%) (Auto) 2.2 % (0.0-3.0) Basophils (%) (Auto) 1.8 % (0.0-2.0) Prothrombin Time 16.6 SEC (9.30-11.50) H Prothromb Time International Ratio 1.6 (0.9-1.1) H Activated Partial Thromboplast Time 39 SEC (23-33) H Sodium Level 149 MMOL/L (136-145) H Potassium Level 3.3 MMOL/L (3.5-5.1) L Chloride Level 115 MMOL/L (98-107) H Carbon Dioxide Level 24 MMOL/L (21-32) Anion Gap 10 mmol/L (5-15) Blood Urea Nitrogen 27 mg/dL (7-18) H Creatinine 2.0 MG/DL (0.55-1.30) H Estimat Glomerular Filtration Rate 42.3 mL/min (>60) Glucose Level 116 MG/DL (74-106) H Calcium Level 7.8 MG/DL (8.5-10.1) L Phosphorus Level 3.6 MG/DL (2.5-4.9) Magnesium Level 1.7 MG/DL (1.8-2.4) L Total Bilirubin 10.0 MG/DL (0.2-1.0) H Direct Bilirubin 8.1 MG/DL (0.0-0.3) H Aspartate Amino Transf (AST/SGOT) 113 U/L (15-37) H Alanine Aminotransferase (ALT/SGPT) 46 U/L (12-78) Alkaline Phosphatase 254 U/L (46-116) H Ammonia 18 umol/L (11-32) Total Protein 6.5 G/DL (6.4-8.2) Albumin 1.3 G/DL (3.4-5.0) L Globulin 5.2 g/dL Albumin/Globulin Ratio 0.2 (1.0-2.7) L Plan Problems: (1) Non-compliance Assessment & Plan: Noncompliance with seizure medication with known history of seizures Now had seizure Appreciate neurology input (2) Electrolyte and fluid disorder Assessment & Plan: Likely due to EtOH use and dehydration IV hydration Trend labs (3) Fever (4) Oral thrush (5) Diarrhea (6) Aspiration pneumonia (7) Seizure disorder (8) Tachycardia (9) Altered mental status (10) Alcohol withdrawal seizure (11) Alcohol withdrawal seizure (12) Episode of confusion (13) Coffee ground emesis (14) Gastrointestinal bleed Assessment & Plan: Patient on admission identified to have maroon-colored stool and coffee-ground emesis. Labs noted mild anemia with H&H trending down. No acute active bleed noted but given patient's history high risk for potential ulcers. PPI Appreciate GI input considerations for EGD once stable No evidence of pulmonary embolus, aortic dissection or aneurysm. Posterior basilar consolidation suspicious for pneumonia. Correlate clinically. Trace bilateral pleural effusions. Possible enterocolitis as described above. Please correlate clinically. Mild ascites Fatty liver Cholelithiasis with wall thickening. Cholecystitis not excluded. Small right inguinal hernia containing fat Extensive breathing motion artifact limiting evaluation. We will follow with recommendations thank you (15) Sinus tachycardia (16) Septic shock (17) Sepsis Assessment & Plan: Patient septic leukocytosis improved today lactic acidosis resolved anemia renal function declining electrolyte disturbance US noted picc out transition to oral meds extubated doing well US noted again. liver decompensated HIDA noted and likely cirrhosis delgado AM labs reordered (18) Lactic acid acidosis (19) STEFANI (acute kidney injury) (20) Abnormal LFTs (21) High anion gap metabolic acidosis Juanpablo Marcus Mar 03, 2019 22:04
--- NOTE | 2019-03-03 22:12 | Pulmonolgy Critical Care Note ---
Critical Care - Asmt/Plan Assessment/Plan: Pulmonary CCM Progress Note Asmt/Plan Problems: (1) Seizure disorder (2) Previously Endotracheally intubated (3) Septic shock (4) Sepsis (5) Sinus tachycardia (6) Lactic acid acidosis (7) High anion gap metabolic acidosis (8) STEFANI (acute kidney injury) (9) Abnormal LFTs (10) Coffee ground emesis (11) Gastrointestinal bleed (12) Altered mental status (13) Alcohol withdrawal seizure (14) Ventilator dependent Assessment/Plan: Optimize pulmonary hygiene/mobilize as tolerated PRN O2 CXR Monitor renal function, PRN lasix Abx per ID F/U BAL studies PPI Monitor counts, transfuse as needed Monitor for EtOH w/drawal, monitor LFT Continue AEDs, monitor for Sz's, F/U neuro recs FC CCT 35 Critical Care - Objective Vital Signs Noted Condition: improving HEENT: atraumatic, normocephalic Lungs: clear Heart: HR/BP stable Abdomen: soft, non-tender, active bowel sounds Extremities: no C/C/E Critical Care - Subjective Interval Events: self extubated and pulled out OGT WCt better HH stable after PRBC Condition: improving IV Access: PICC EKG Rhythm: Sinus Rhythm FI02: 28 Vent Support Breath Rate: 26 Vent Support Mode: CPAP Vent Tidal Volume: 500 Sputum Amount: Small PEEP: 5.0 PIP: 14 Fluids: SLIV Drips: N/A Tube Feeding Amount: 0 Subjective: Awake lethargic but arousable Labs: Laboratory Tests Test 02/28/19 09:15 03/01/19 04:30 Vancomycin Level Trough 32.5 ug/mL (5.0-12.0) H White Blood Count 17.7 K/UL (4.8-10.8) H Red Blood Count 2.91 M/UL (4.70-6.10) L Hemoglobin 9.0 G/DL (14.2-18.0) L Hematocrit 27.8 % (42.0-52.0) L Mean Corpuscular Volume 95 FL (80-99) Mean Corpuscular Hemoglobin 31.0 PG (27.0-31.0) Mean Corpuscular Hemoglobin Concent 32.5 G/DL (32.0-36.0) Red Cell Distribution Width 15.9 % (11.6-14.8) H Platelet Count 417 K/UL (150-450) Mean Platelet Volume 6.0 FL (6.5-10.1) L Neutrophils (%) (Auto) 69.0 % (45.0-75.0) Lymphocytes (%) (Auto) 10.0 % (20.0-45.0) L Monocytes (%) (Auto) 16.8 % (1.0-10.0) H Eosinophils (%) (Auto) 2.3 % (0.0-3.0) Basophils (%) (Auto) 1.9 % (0.0-2.0) Prothrombin Time 16.1 SEC (9.30-11.50) H Prothromb Time International Ratio 1.5 (0.9-1.1) H Activated Partial Thromboplast Time 39 SEC (23-33) H Sodium Level 146 MMOL/L (136-145) H Potassium Level 3.5 MMOL/L (3.5-5.1) Chloride Level 112 MMOL/L (98-107) H Carbon Dioxide Level 25 MMOL/L (21-32) Anion Gap 9 mmol/L (5-15) Blood Urea Nitrogen 20 mg/dL (7-18) H Creatinine 1.8 MG/DL (0.55-1.30) H Estimat Glomerular Filtration Rate 47.8 mL/min (>60) Glucose Level 90 MG/DL (74-106) Uric Acid 4.0 MG/DL (2.6-7.2) Calcium Level 8.0 MG/DL (8.5-10.1) L Phosphorus Level 3.8 MG/DL (2.5-4.9) Magnesium Level 2.1 MG/DL (1.8-2.4) Total Bilirubin 11.2 MG/DL (0.2-1.0) H Direct Bilirubin 9.2 MG/DL (0.0-0.3) H Gamma Glutamyl Transpeptidase 586 U/L (5-85) H Aspartate Amino Transf (AST/SGOT) 158 U/L (15-37) H Alanine Aminotransferase (ALT/SGPT) 55 U/L (12-78) Alkaline Phosphatase 281 U/L (46-116) H C-Reactive Protein, Quantitative 7.0 mg/dL (0.00-0.90) H Pro-B-Type Natriuretic Peptide 1723 pg/mL (0-125) H Total Protein 6.1 G/DL (6.4-8.2) L Albumin 1.3 G/DL (3.4-5.0) L Random Vancomycin Level 25.3 ug/mL Critical Care - Objective Last 24 Hour Vital Signs Date Time Temp Pulse Resp B/P (MAP) Pulse Ox O2 Delivery O2 Flow Rate FiO2 03/03/19 16:18 97.0 98 22 112/72 (85) 96 03/03/19 16:00 57 03/03/19 12:00 103 03/03/19 12:00 97.3 102 23 118/59 (78) 96 03/03/19 09:00 Room Air Room Air 03/03/19 08:00 97.9 96 20 113/80 (91) 96 03/03/19 08:00 95 03/03/19 06:36 96 Room Air 21 03/03/19 04:00 98.4 95 20 118/88 (98) 96 03/03/19 04:00 95 03/03/19 00:00 99 03/03/19 00:00 98.1 99 18 119/73 (88) 96 03/02/19 23:40 Room Air Room Air Accucheck: 33 Critical Care - Subjective ROS Limited/Unobtainable: No FI02: 21 Vent Support Breath Rate: 26 Vent Support Mode: CPAP Vent Tidal Volume: 500 Sputum Amount: Small PEEP: 5.0 PIP: 14 Tube Feeding Amount: 0 I&O: Intake and Output 03/02/19 03/03/19 19:00 07:00 Intake Total 1320 ml 500 ml Output Total 580 ml 1100 ml Balance 740 ml -600 ml Intake Oral 90 ml 500 ml IV Total 1230 ml Tube Feeding 0 ml Output Urine Total 530 ml 1000 ml Stool Total 50 ml 100 ml ET-Tube: 7.5 ET Position: 24 Jeromy Slaughter MD Mar 03, 2019 22:12
[2019-03-04] VITALS: BP 120/80
[2019-03-04 04:00] VITALS: BP 114/77
[2019-03-04] MEDS: metroNIDAZOLE 500mg tab ORAL SCH ×3 (05:58→21:34)
--- NOTE | 2019-03-04 07:04 | NUR ---
HAND-OFF: Report given to ESHA Almanza.
--- NOTE | 2019-03-04 07:05 | NUR ---
NURSE NOTES: Received report from from ESHA Jimenez. Pt is sitting up in bed. He is alert and oriented X1. Bed is in lowest position, side rails up X2, and call light is within reach. Will continue to monitor.
[2019-03-04 08:00] VITALS: BP 105/76
[2019-03-04] MEDS: Cefepime HCl 2 GM in D5W 110 ML IV SCH (09:00)
[2019-03-04] MEDS: Lactobacillus-GG tablet ORAL SCH ×2 (09:01→21:34)
[2019-03-04] MEDS: Lactulose 10gm/15ml UDC ORAL SCH ×3 (09:01→18:00)
[2019-03-04] MEDS: Thiamine 100mg tab NG SCH (09:01)
[2019-03-04] MEDS: Micafungin 100 MG in NS 110 ML IVPB SCH (10:28)
--- NOTE | 2019-03-04 11:47 | Cardiac Electrophysiology PN ---
Assessment/Plan Assessment/Plan 1. Sinus tachycardia up to 170s. No myocardial infarction . Due to sepsis and anemia and alcohol withdrawal. EF 60%. In SR in 90s 2. S/P Septic shock and E Coli bacteremia, on broad-spectrum IV antibiotics. 3. Troponin leak. Type 2. No CP 4. S/P Respiratory failure. Self extubated S/P Bronchoscopy and removal of mucus plug 5. ETOH withdrawal 6. Seizures with noncompliance. 7. Upper gi bleed. S/P EGD and passed swallow eval 8. Hematuria, resolved 9. Coffee ground emesis. EGD showed a. Medium-sized hiatal hernia. b. Portal hypertensive gastropathy, status post biopsy. US >> liver disease/cirrhosis with ascites.FU Dr Goldberg 10. Pulled out PICC and Rectal tube despite being in restraints DW RN Subjective Subjective Pulled out his central line yesterday despite being in restraints. Confused. RN at bedside. Pulled out rectal tube last nigh. Objective Last 24 Hour Vital Signs Date Time Temp Pulse Resp B/P (MAP) Pulse Ox O2 Delivery O2 Flow Rate FiO2 03/04/19 09:00 Room Air Room Air 03/04/19 08:00 97.0 103 24 105/76 (86) 99 03/04/19 08:00 99 03/04/19 04:00 98.1 84 18 114/77 (89) 99 03/04/19 04:00 84 03/04/19 00:00 97.7 96 18 120/80 (93) 98 03/04/19 00:00 96 03/03/19 21:00 Room Air Room Air 03/03/19 20:18 97 Room Air 21 03/03/19 20:00 98.1 104 20 120/80 (93) 96 03/03/19 20:00 104 03/03/19 16:18 97.0 98 22 112/72 (85) 96 03/03/19 16:00 57 03/03/19 12:00 103 03/03/19 12:00 97.3 102 23 118/59 (78) 96 Intake and Output 03/03/19 03/04/19 18:59 06:59 Intake Total 480 ml Output Total 750 ml 700 ml Balance -750 ml -220 ml Intake Oral 480 ml Output Urine Total 750 ml 700 ml Objective HEAD AND NECK: No JVD LUNGS: Decreased breath sounds. CARDIOVASCULAR: Regular S1 and S2 with no gallop or murmur. ABDOMEN: Soft. EXTREMITIES: No pitting edema. Fidencio Trevino MD Mar 04, 2019 11:47
[2019-03-04 12:00] VITALS: BP 112/75
--- NOTE | 2019-03-04 12:13 | Urology Progress Note ---
Assessment/Plan Status: progressing Assessment/Plan: 1. Gross hematuria history, improved. 2. Urinary retention. 3. Probable neurogenic bladder. 4. Urinary tract infection history. 5. Sepsis history. monitor clinically delgado indwelling hand irrigate PRN abx as ordered renal fxn stable flomax aaded voding trial soon? Subjective Allergies: Coded Allergies: No Known Allergies (Unverified , 02/10/15) Subjective all noted, transferred out of ICU Objective Last 24 Hour Vital Signs Date Time Temp Pulse Resp B/P (MAP) Pulse Ox O2 Delivery O2 Flow Rate FiO2 03/04/19 09:00 Room Air Room Air 03/04/19 08:00 97.0 103 24 105/76 (86) 99 03/04/19 08:00 99 03/04/19 04:00 98.1 84 18 114/77 (89) 99 03/04/19 04:00 84 03/04/19 00:00 97.7 96 18 120/80 (93) 98 03/04/19 00:00 96 03/03/19 21:00 Room Air Room Air 03/03/19 20:18 97 Room Air 21 03/03/19 20:00 98.1 104 20 120/80 (93) 96 03/03/19 20:00 104 03/03/19 16:18 97.0 98 22 112/72 (85) 96 03/03/19 16:00 57 Intake and Output 03/03/19 03/04/19 18:59 06:59 Intake Total 480 ml Output Total 750 ml 700 ml Balance -750 ml -220 ml Intake Oral 480 ml Output Urine Total 750 ml 700 ml Microbiology Date/Time Source Procedure Growth Status 02/25/19 09:15 Blood Blood Culture - Final NO GROWTH AFTER 5 DAYS Complete 02/27/19 15:00 Sputum Expectorated Pneumocystis jiroveci Smear (DFA) - Final Complete 02/22/19 23:55 Stool Clostridium difficile Toxin Assay - Final Complete 02/25/19 09:05 Indwelling Cath Urine Culture - Final NO GROWTH AFTER 48 HOURS Complete Current Medications Medications (Trade) Dose Ordered Sig/Tonny Route PRN Reason Start Time Stop Time Status Last Admin Dose Admin Acetaminophen (Tylenol) 650 mg Q4H PRN ORAL Mild Pain (Pain Scale 1-3) 03/02/19 18:00 03/16/19 17:59 Acetaminophen (Tylenol) 650 mg Q4H PRN RECTAL Mild Pain (Pain Scale 1-3) 03/02/19 18:00 03/18/19 17:59 Cefepime HCl 2 gm/ Dextrose 110 ml @ 220 mls/hr Q24H IV 03/03/19 09:00 03/09/19 08:59 03/03/19 08:20 Dextrose (Dextrose 50%) 25 ml Q30M PRN IV Hypoglycemia 03/02/19 17:45 03/16/19 16:14 Dextrose (Dextrose 50%) 50 ml Q30M PRN IV Hypoglycemia 03/02/19 17:45 03/16/19 16:14 Lactobacillus Acidophilus (Culturelle) 1 tab EVERY 12 HOURS ORAL 03/02/19 21:00 03/26/19 17:59 03/04/19 09:01 Lactulose (Cephulac) 10 gm THREE TIMES A DAY ORAL 03/02/19 18:00 04/01/19 12:59 03/04/19 09:01 Lansoprazole (Prevacid) 30 mg EVERY 12 HOURS ORAL 03/02/19 21:00 03/26/19 17:59 03/04/19 09:01 Levetiracetam (Keppra) 500 mg Q12HR ORAL 03/03/19 21:00 04/02/19 20:59 03/04/19 09:01 Lorazepam (Ativan 2mg/ml 1ml) 1 mg Q4H PRN IV For Anxiety 03/02/19 18:30 03/04/19 18:29 Metronidazole (Flagyl) 500 mg Q8HR ORAL 03/03/19 22:00 03/10/19 21:59 03/04/19 05:58 Micafungin Sodium 100 mg/Sodium Chloride 110 ml @ 110 mls/hr Q24H IVPB 03/03/19 10:30 03/10/19 10:29 03/03/19 09:50 Ondansetron HCl (Zofran) 4 mg Q6H PRN IVP Nausea & Vomiting 03/02/19 18:30 03/16/19 18:29 Rifaximin (Xifaxan) 550 mg EVERY 12 HOURS ORAL 03/02/19 21:00 03/09/19 20:59 03/04/19 09:01 Tamsulosin HCl (Flomax) 0.4 mg BEDTIME ORAL 03/03/19 21:00 04/02/19 20:59 03/03/19 21:39 Thiamine HCl (Vitamin B1) 100 mg DAILY NG 03/03/19 09:00 03/27/19 08:59 03/04/19 09:01 Vancomycin HCl (Vanco rx to dose) 1 ea DAILY PRN MISC Per rx protocol 03/03/19 09:00 03/17/19 12:59 Height (Feet): 5 Height (Inches): 5.00 Weight (Pounds): 165 Objective exam stable, urine clearing Jeremy Matta MD Mar 04, 2019 12:13
--- NOTE | 2019-03-04 12:56 | Surgery Progress Note ---
Surgery Progress Note Subjective Procedure Performed left femoral central venous catheter insertion Additional Comments Patient more alert and awake today. States he is feeling well. Denies any pain. Labs noted. Objective Last 24 Hour Vital Signs Date Time Temp Pulse Resp B/P (MAP) Pulse Ox O2 Delivery O2 Flow Rate FiO2 03/04/19 12:00 89 03/04/19 12:00 97.0 95 22 112/75 (87) 96 03/04/19 09:00 Room Air Room Air 03/04/19 08:00 97.0 103 24 105/76 (86) 99 03/04/19 08:00 99 03/04/19 04:00 98.1 84 18 114/77 (89) 99 03/04/19 04:00 84 03/04/19 00:00 97.7 96 18 120/80 (93) 98 03/04/19 00:00 96 03/03/19 21:00 Room Air Room Air 03/03/19 20:18 97 Room Air 21 03/03/19 20:00 98.1 104 20 120/80 (93) 96 03/03/19 20:00 104 03/03/19 16:18 97.0 98 22 112/72 (85) 96 03/03/19 16:00 57 I&O Intake and Output 03/03/19 03/04/19 18:59 06:59 Intake Total 480 ml Output Total 750 ml 700 ml Balance -750 ml -220 ml Intake Oral 480 ml Output Urine Total 750 ml 700 ml Cardiovascular: RSR Respiratory: clear Abdomen: soft, distended - Fluid-filled, non-tender, present bowel sounds Extremities: no cyanosis Plan Problems: (1) Non-compliance Assessment & Plan: Noncompliance with seizure medication with known history of seizures Now had seizure Appreciate neurology input (2) Electrolyte and fluid disorder Assessment & Plan: Likely due to EtOH use and dehydration IV hydration Trend labs (3) Fever (4) Oral thrush (5) Diarrhea (6) Aspiration pneumonia (7) Seizure disorder (8) Tachycardia (9) Altered mental status (10) Alcohol withdrawal seizure (11) Alcohol withdrawal seizure (12) Episode of confusion (13) Coffee ground emesis (14) Gastrointestinal bleed Assessment & Plan: Patient on admission identified to have maroon-colored stool and coffee-ground emesis. Labs noted mild anemia with H&H trending down. No acute active bleed noted but given patient's history high risk for potential ulcers. PPI Appreciate GI input considerations for EGD once stable No evidence of pulmonary embolus, aortic dissection or aneurysm. Posterior basilar consolidation suspicious for pneumonia. Correlate clinically. Trace bilateral pleural effusions. Possible enterocolitis as described above. Please correlate clinically. Mild ascites Fatty liver Cholelithiasis with wall thickening. Cholecystitis not excluded. Small right inguinal hernia containing fat Extensive breathing motion artifact limiting evaluation. We will follow with recommendations thank you (15) Sinus tachycardia (16) Septic shock (17) Sepsis Assessment & Plan: Patient septic leukocytosis improved today lactic acidosis resolved anemia renal function declining electrolyte disturbance US noted picc out transition to oral meds extubated doing well US noted again. liver decompensated HIDA noted and likely cirrhosis delgado AM labs reordered We will discuss with GI about paracentesis. Patient's abdominal and becoming more distended and fluid-filled with ascites (18) Lactic acid acidosis (19) STEFANI (acute kidney injury) (20) Abnormal LFTs (21) High anion gap metabolic acidosis Juanpablo Marcus Mar 04, 2019 12:56
--- NOTE | 2019-03-04 13:55 | NUR ---
NURSE NOTES: Patient was discharged per MD order. Heart monitor removed and returned to panel monitor. IV removed. No redness or swelling noted. Belongings accounted for. Signed belonging list is in chart. Pt stable at time of discharge. Addendum: 03/04/19 at 2003 by Cami Mott RN Above note is for different pt.
--- NOTE | 2019-03-04 14:23 | Infectious Diseases Prog Note ---
Assessment/Plan Assessment/Plan ASSESSMENT AND PLAN: 1. sepsis, shock, e.coli bacteremia/uti, gram neg sepsis, pna/HCAP, ct noted, sirs, fevers, fungemia but blood cultures negative, leukocytosis worse, c.diff. negative, elevated lft's, ? cholecystitis, hida scan negative, respiratory failure/ vent but now extubated distended abdomen, ? ascites, + bm making sbo less likely - cefepime, flagyl, vancomycin and micafungin - day # 7 combination - surveillance blood cultures negative, monitor labs and chest x-ray - off vent , off pressors, clinically improving - monitor lft's - still elevated - paracentesis planned - s/p femoral line 2. History of seizures. Workup per Neurology. 3. Acute kidney injury, likely secondary to sepsis. 4. The patient is anemic. 5. Severe sepsis with leukocytosis. 6. History of ETOH abuse. 7. No known allergies. 8. Family history is noncontributory. 9. MAR was noted. 10. Case was discussed with RN. 11. Social history is positive for ETOH abuse. 12. Poor prognosis. Subjective Constitutional: Denies: fever HEENT: Denies: congestion Respiratory: Denies: shortness of breath Cardiovascular: Denies: chest pain Gastrointestinal/Abdominal: Reports: other - distended ; Denies: nausea, vomiting Genitourinary: Reports: other - + delgado Neurologic: Denies: headache Psychiatric: Denies: depression Skin: Denies: rash Hematologic: Denies: bleeding Musculoskeletal: Reports: pain - distended Allergies: Coded Allergies: No Known Allergies (Unverified , 02/10/15) Objective Vital Signs Last 24 Hour Vital Signs Date Time Temp Pulse Resp B/P (MAP) Pulse Ox O2 Delivery O2 Flow Rate FiO2 03/04/19 12:00 89 03/04/19 12:00 97.0 95 22 112/75 (87) 96 03/04/19 09:00 Room Air Room Air 03/04/19 08:00 97.0 103 24 105/76 (86) 99 03/04/19 08:00 99 03/04/19 04:00 98.1 84 18 114/77 (89) 99 03/04/19 04:00 84 03/04/19 00:00 97.7 96 18 120/80 (93) 98 03/04/19 00:00 96 03/03/19 21:00 Room Air Room Air 03/03/19 20:18 97 Room Air 21 03/03/19 20:00 98.1 104 20 120/80 (93) 96 03/03/19 20:00 104 03/03/19 16:18 97.0 98 22 112/72 (85) 96 03/03/19 16:00 57 Height (Feet): 5 Height (Inches): 5.00 Weight (Pounds): 165 General Appearance: no acute distress HEENT: normocephalic, atraumatic, anicteric, mucous membranes moist Respiratory/Chest: crackles/rales, rhonchi - bilaterally Cardiovascular: normal rate, regular rhythm Abdomen: hypoactive bowel sounds, distended, other - non-tender Genitourinary: other - + delgado Extremities: no cyanosis Skin: no rash 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 Posterior basilar consolidation suspicious for pneumonia. Correlate clinically. Trace bilateral pleural effusions. Possible enterocolitis as described above. Please correlate clinically. Mild ascites Fatty liver Cholelithiasis with wall thickening. Cholecystitis not excluded. Small right inguinal hernia containing fat Extensive breathing motion artifact limiting evaluation. Chest x-ray - 02/17/19 - Procedure: XRAY Chest 1v Indication: Dyspnea Comparison: 02/16/2019 A single view chest radiograph was obtained. Findings: Left basilar consolidation with air bronchograms demonstrated. Costophrenic angle is obscured. Heart size is normal. Tubes and lines are stable and satisfactory in position. IMPRESSION: No significant change from the previous exam Chest x-ray - 02/21/19 - Comparison: 02/17/2019 A single view chest radiograph was obtained. Findings: Diffuse groundglass opacities have increased since the previous occasion. Heart remains normal in size. There is a left pleural effusion likely present. Tubes and lines are stable. A right PICC line is present. The tip is projected over the SVC. IMPRESSION: Worsening pulmonary edema. PICC line in good position. No change otherwise Chest x-ray - 02/22/19 - Findings: Tubes and lines are satisfactory and stable. Heart size is normal and stable. Groundglass opacities noted diffusely. Bilateral basilar consolidation with air bronchograms demonstrated. A probable left pleural effusion is noted. IMPRESSION: Evidence of radiographically stable pulmonary edema which may be noncardiogenic. Basilar consolidation unchanged. Left pleural effusion Chest x-ray - 02/26/19- Technique: One view of the chest Comparison: 02/22/2019 Findings: Stable satisfactory positions of endotracheal tube, nasogastric tube, right arm PICC. There appears to be decreased pleural fluid on the left. Mild interstitial airspace congestion persists bilaterally. No new infiltrates Impression: Improved left pleural effusion, over 4 days Persistent largely unchanged bilateral interstitial and hazy airspace edema Stable tube and line positions as described 02/28/19 - Procedure: XRAY Chest 1v Indication: NG tube placement Comparison: None A single view chest radiograph was obtained. Findings: Study obtained for purposes of NG tube localization. The proximal and distal ports are within the mid to distal stomach. IMPRESSION: Nasogastric tube satisfactory in position Microbiology Date/Time Source Procedure Growth Status 02/25/19 09:15 Blood Blood Culture - Final NO GROWTH AFTER 5 DAYS Complete 02/27/19 15:00 Sputum Expectorated Pneumocystis jiroveci Smear (DFA) - Final Complete 02/22/19 23:55 Stool Clostridium difficile Toxin Assay - Final Complete 02/25/19 09:05 Indwelling Cath Urine Culture - Final NO GROWTH AFTER 48 HOURS Complete Labs Test 03/02/19 05:00 03/03/19 05:00 White Blood Count 16.4 K/UL (4.8-10.8) 17.3 K/UL (4.8-10.8) Red Blood Count 3.29 M/UL (4.70-6.10) 3.20 M/UL (4.70-6.10) Hemoglobin 10.0 G/DL (14.2-18.0) 9.9 G/DL (14.2-18.0) Hematocrit 31.4 % (42.0-52.0) 30.3 % (42.0-52.0) Mean Corpuscular Volume 95 FL (80-99) 95 FL (80-99) Mean Corpuscular Hemoglobin 30.5 PG (27.0-31.0) 30.9 PG (27.0-31.0) Mean Corpuscular Hemoglobin Concent 31.9 G/DL (32.0-36.0) 32.6 G/DL (32.0-36.0) Red Cell Distribution Width 16.6 % (11.6-14.8) 16.1 % (11.6-14.8) Platelet Count 423 K/UL (150-450) 400 K/UL (150-450) Mean Platelet Volume 5.8 FL (6.5-10.1) 5.8 FL (6.5-10.1) Neutrophils (%) (Auto) 72.1 % (45.0-75.0) 69.2 % (45.0-75.0) Lymphocytes (%) (Auto) 9.8 % (20.0-45.0) 11.6 % (20.0-45.0) Monocytes (%) (Auto) 15.1 % (1.0-10.0) 15.3 % (1.0-10.0) Eosinophils (%) (Auto) 1.4 % (0.0-3.0) 2.2 % (0.0-3.0) Basophils (%) (Auto) 1.6 % (0.0-2.0) 1.8 % (0.0-2.0) Sodium Level 148 MMOL/L (136-145) 149 MMOL/L (136-145) Potassium Level 3.3 MMOL/L (3.5-5.1) 3.3 MMOL/L (3.5-5.1) Chloride Level 113 MMOL/L (98-107) 115 MMOL/L (98-107) Carbon Dioxide Level 24 MMOL/L (21-32) 24 MMOL/L (21-32) Anion Gap 11 mmol/L (5-15) 10 mmol/L (5-15) Blood Urea Nitrogen 26 mg/dL (7-18) 27 mg/dL (7-18) Creatinine 1.9 MG/DL (0.55-1.30) 2.0 MG/DL (0.55-1.30) Estimat Glomerular Filtration Rate 44.8 mL/min (>60) 42.3 mL/min (>60) Glucose Level 90 MG/DL (74-106) 116 MG/DL (74-106) Calcium Level 8.1 MG/DL (8.5-10.1) 7.8 MG/DL (8.5-10.1) Phosphorus Level 4.7 MG/DL (2.5-4.9) 3.6 MG/DL (2.5-4.9) Magnesium Level 2.0 MG/DL (1.8-2.4) 1.7 MG/DL (1.8-2.4) Total Bilirubin 11.0 MG/DL (0.2-1.0) 10.0 MG/DL (0.2-1.0) Direct Bilirubin 8.8 MG/DL (0.0-0.3) 8.1 MG/DL (0.0-0.3) Aspartate Amino Transf (AST/SGOT) 146 U/L (15-37) 113 U/L (15-37) Alanine Aminotransferase (ALT/SGPT) 52 U/L (12-78) 46 U/L (12-78) Alkaline Phosphatase 281 U/L (46-116) 254 U/L (46-116) Total Protein 6.2 G/DL (6.4-8.2) 6.5 G/DL (6.4-8.2) Albumin 1.2 G/DL (3.4-5.0) 1.3 G/DL (3.4-5.0) Globulin 5.0 g/dL 5.2 g/dL Albumin/Globulin Ratio 0.2 (1.0-2.7) 0.2 (1.0-2.7) Random Vancomycin Level 18.3 ug/mL Prothrombin Time 16.6 SEC (9.30-11.50) Prothromb Time International Ratio 1.6 (0.9-1.1) Activated Partial Thromboplast Time 39 SEC (23-33) Ammonia 18 umol/L (11-32) Current Medications Medications (Trade) Dose Ordered Sig/Tonny Route PRN Reason Start Time Stop Time Status Last Admin Dose Admin Acetaminophen (Tylenol) 650 mg Q4H PRN ORAL Mild Pain (Pain Scale 1-3) 03/02/19 18:00 03/16/19 17:59 Acetaminophen (Tylenol) 650 mg Q4H PRN RECTAL Mild Pain (Pain Scale 1-3) 03/02/19 18:00 03/18/19 17:59 Cefepime HCl 2 gm/ Dextrose 110 ml @ 220 mls/hr Q24H IV 03/03/19 09:00 03/09/19 08:59 03/03/19 08:20 Dextrose (Dextrose 50%) 25 ml Q30M PRN IV Hypoglycemia 03/02/19 17:45 03/16/19 16:14 Dextrose (Dextrose 50%) 50 ml Q30M PRN IV Hypoglycemia 03/02/19 17:45 03/16/19 16:14 Lactobacillus Acidophilus (Culturelle) 1 tab EVERY 12 HOURS ORAL 03/02/19 21:00 03/26/19 17:59 03/04/19 09:01 Lactulose (Cephulac) 10 gm THREE TIMES A DAY ORAL 03/02/19 18:00 04/01/19 12:59 03/04/19 09:01 Lansoprazole (Prevacid) 30 mg EVERY 12 HOURS ORAL 03/02/19 21:00 03/26/19 17:59 03/04/19 09:01 Levetiracetam (Keppra) 500 mg Q12HR ORAL 03/03/19 21:00 04/02/19 20:59 03/04/19 09:01 Lorazepam (Ativan 2mg/ml 1ml) 1 mg Q4H PRN IV For Anxiety 03/02/19 18:30 03/04/19 18:29 Metronidazole (Flagyl) 500 mg Q8HR ORAL 03/03/19 22:00 03/10/19 21:59 03/04/19 14:01 Micafungin Sodium 100 mg/Sodium Chloride 110 ml @ 110 mls/hr Q24H IVPB 03/03/19 10:30 03/10/19 10:29 03/03/19 09:50 Ondansetron HCl (Zofran) 4 mg Q6H PRN IVP Nausea & Vomiting 03/02/19 18:30 03/16/19 18:29 Rifaximin (Xifaxan) 550 mg EVERY 12 HOURS ORAL 03/02/19 21:00 03/09/19 20:59 03/04/19 09:01 Tamsulosin HCl (Flomax) 0.4 mg BEDTIME ORAL 03/03/19 21:00 04/02/19 20:59 03/03/19 21:39 Thiamine HCl (Vitamin B1) 100 mg DAILY NG 03/03/19 09:00 03/27/19 08:59 03/04/19 09:01 Vancomycin HCl (Vanco rx to dose) 1 ea DAILY PRN MISC Per rx protocol 03/03/19 09:00 03/17/19 12:59 Barry Plummer MD Mar 04, 2019 14:23
--- NOTE | 2019-03-04 14:53 | General Progress Note ---
Assessment/Plan Status: progressing Assessment/Plan: Assessment (1) Coffee ground emesis ICD Codes: K92.0 - Hematemesis SNOMED: 24810179 (2) Episode of confusion ICD Codes: R41.0 - Disorientation, unspecified SNOMED: 81755757 (3) Gastrointestinal bleed ICD Codes: K92.2 - Gastrointestinal hemorrhage, unspecified SNOMED: 18847788 (4) Abnormal LFTs ICD Codes: R94.5 - Abnormal results of liver function studies SNOMED: 388822413 (5) Diarrhea ICD Codes: R19.7 - Diarrhea, unspecified SNOMED: 34545340 (6) Electrolyte and fluid disorder ICD Codes: E87.8 - Other disorders of electrolyte and fluid balance, not elsewhere classified SNOMED: 57062937 (7) Sepsis ICD Codes: A41.9 - Sepsis, unspecified organism Assessment/Plan SUMMARY OF FINDINGS: 1. Medium-sized hiatal hernia. 2. Portal hypertensive gastropathy, status post biopsy. US reviewed >> liver disease/cirrhosis with ascites. Assessment - Resp failure - diarrhea - UGIB - abnormal LFT, negative hepatitis serologies, s/p U/S x 2 (no biliary dilation) - ? cirrhosis and sepsis/hypoperfusion - h/o EtOH, possible early cirrhosis RECOMMENDATIONS: Follow up path. Check HSV IgM Check CMV Quant PCR Check EBV IGM No evidence of any active GI bleeding at this time. consider colonoscopy if needed. low dose lactulose + xifaxan will consider paracentesis OB stool r/o GI bleed - positive prn transfusions follow labs Recommendations - probiotics - abx per ID - d/c tylenol - min duration antifungal Rx - supportive care - Surgical f/u re GB - Will consider doppler of hepatic vessels Subjective Allergies: Coded Allergies: No Known Allergies (Unverified , 02/10/15) Subjective above noted awake no new complaints LFT rising and remain elevated Objective Last 24 Hour Vital Signs Date Time Temp Pulse Resp B/P (MAP) Pulse Ox O2 Delivery O2 Flow Rate FiO2 03/04/19 12:00 89 03/04/19 12:00 97.0 95 22 112/75 (87) 96 03/04/19 09:00 Room Air Room Air 03/04/19 08:00 97.0 103 24 105/76 (86) 99 03/04/19 08:00 99 03/04/19 04:00 98.1 84 18 114/77 (89) 99 03/04/19 04:00 84 03/04/19 00:00 97.7 96 18 120/80 (93) 98 03/04/19 00:00 96 03/03/19 21:00 Room Air Room Air 03/03/19 20:18 97 Room Air 21 03/03/19 20:00 98.1 104 20 120/80 (93) 96 03/03/19 20:00 104 03/03/19 16:18 97.0 98 22 112/72 (85) 96 03/03/19 16:00 57 Intake and Output 03/03/19 03/04/19 18:59 06:59 Intake Total 480 ml Output Total 750 ml 700 ml Balance -750 ml -220 ml Intake Oral 480 ml Output Urine Total 750 ml 700 ml Laboratory Tests 03/04/19 14:10: Random Vancomycin Level 12.9 Height (Feet): 5 Height (Inches): 5.00 Weight (Pounds): 165 Objective Debilitated awake, interactive NCAT supple CTA RRR abd soft, slightly distended no edema Madhav Goldberg MD Mar 04, 2019 14:53
--- NOTE | 2019-03-04 14:58 | Pulmonolgy Critical Care Note ---
Critical Care - Asmt/Plan Assessment/Plan: Pulmonary CCM Progress Note Asmt/Plan Problems: (1) Seizure disorder (2) Previously Endotracheally intubated (3) Septic shock resolved (4) Sepsis - e.coli bacteremia/uti, gram neg sepsis, pna/HCAP, ct noted, sirs, fevers, fungemia (5) Sinus tachycardia (6) Lactic acid acidosis (7) High anion gap metabolic acidosis (8) STEFANI (acute kidney injury) (9) Abnormal LFTs (10) Coffee ground emesis (11) Gastrointestinal bleed (12) Altered mental status (13) Alcohol withdrawal seizure (14) Ventilator dependent Assessment/Plan: Optimize pulmonary hygiene/mobilize as tolerated PRN O2 CXR Monitor renal function, PRN lasix Abx per ID F/U BAL studies PPI Monitor counts, transfuse as needed Monitor for EtOH w/drawal, monitor LFT Continue AEDs, monitor for Sz's, F/U neuro recs FC Critical Care - Objective Vital Signs Noted Condition: improving, jaundiced HEENT: atraumatic, normocephalic Lungs: clear Heart: HR/BP stable Abdomen: soft, non-tender, active bowel sounds Extremities: no C/C/E Critical Care - Subjective Interval Events: self extubated and pulled out OGT WCt better HH stable after PRBC Condition: improving IV Access: PICC EKG Rhythm: Sinus Rhythm FI02: 28 Vent Support Breath Rate: 26 Vent Support Mode: CPAP Vent Tidal Volume: 500 Sputum Amount: Small PEEP: 5.0 PIP: 14 Fluids: SLIV Drips: N/A Tube Feeding Amount: 0 Subjective: Awake lethargic but arousable Labs: Laboratory Tests Test 02/28/19 09:15 03/01/19 04:30 Vancomycin Level Trough 32.5 ug/mL (5.0-12.0) H White Blood Count 17.7 K/UL (4.8-10.8) H Red Blood Count 2.91 M/UL (4.70-6.10) L Hemoglobin 9.0 G/DL (14.2-18.0) L Hematocrit 27.8 % (42.0-52.0) L Mean Corpuscular Volume 95 FL (80-99) Mean Corpuscular Hemoglobin 31.0 PG (27.0-31.0) Mean Corpuscular Hemoglobin Concent 32.5 G/DL (32.0-36.0) Red Cell Distribution Width 15.9 % (11.6-14.8) H Platelet Count 417 K/UL (150-450) Mean Platelet Volume 6.0 FL (6.5-10.1) L Neutrophils (%) (Auto) 69.0 % (45.0-75.0) Lymphocytes (%) (Auto) 10.0 % (20.0-45.0) L Monocytes (%) (Auto) 16.8 % (1.0-10.0) H Eosinophils (%) (Auto) 2.3 % (0.0-3.0) Basophils (%) (Auto) 1.9 % (0.0-2.0) Prothrombin Time 16.1 SEC (9.30-11.50) H Prothromb Time International Ratio 1.5 (0.9-1.1) H Activated Partial Thromboplast Time 39 SEC (23-33) H Sodium Level 146 MMOL/L (136-145) H Potassium Level 3.5 MMOL/L (3.5-5.1) Chloride Level 112 MMOL/L (98-107) H Carbon Dioxide Level 25 MMOL/L (21-32) Anion Gap 9 mmol/L (5-15) Blood Urea Nitrogen 20 mg/dL (7-18) H Creatinine 1.8 MG/DL (0.55-1.30) H Estimat Glomerular Filtration Rate 47.8 mL/min (>60) Glucose Level 90 MG/DL (74-106) Uric Acid 4.0 MG/DL (2.6-7.2) Calcium Level 8.0 MG/DL (8.5-10.1) L Phosphorus Level 3.8 MG/DL (2.5-4.9) Magnesium Level 2.1 MG/DL (1.8-2.4) Total Bilirubin 11.2 MG/DL (0.2-1.0) H Direct Bilirubin 9.2 MG/DL (0.0-0.3) H Gamma Glutamyl Transpeptidase 586 U/L (5-85) H Aspartate Amino Transf (AST/SGOT) 158 U/L (15-37) H Alanine Aminotransferase (ALT/SGPT) 55 U/L (12-78) Alkaline Phosphatase 281 U/L (46-116) H C-Reactive Protein, Quantitative 7.0 mg/dL (0.00-0.90) H Pro-B-Type Natriuretic Peptide 1723 pg/mL (0-125) H Total Protein 6.1 G/DL (6.4-8.2) L Albumin 1.3 G/DL (3.4-5.0) L Random Vancomycin Level 25.3 ug/mL Critical Care - Objective Last 24 Hour Vital Signs Date Time Temp Pulse Resp B/P (MAP) Pulse Ox O2 Delivery O2 Flow Rate FiO2 03/04/19 12:00 89 03/04/19 12:00 97.0 95 22 112/75 (87) 96 03/04/19 09:00 Room Air Room Air 03/04/19 08:00 97.0 103 24 105/76 (86) 99 03/04/19 08:00 99 03/04/19 04:00 98.1 84 18 114/77 (89) 99 03/04/19 04:00 84 03/04/19 00:00 97.7 96 18 120/80 (93) 98 03/04/19 00:00 96 03/03/19 21:00 Room Air Room Air 03/03/19 20:18 97 Room Air 21 03/03/19 20:00 98.1 104 20 120/80 (93) 96 03/03/19 20:00 104 03/03/19 16:18 97.0 98 22 112/72 (85) 96 03/03/19 16:00 57 Accucheck: 33 Critical Care - Subjective ROS Limited/Unobtainable: No FI02: 21 Vent Support Breath Rate: 26 Vent Support Mode: CPAP Vent Tidal Volume: 500 Sputum Amount: Small PEEP: 5.0 PIP: 14 Tube Feeding Amount: 0 I&O: Intake and Output 03/03/19 03/04/19 18:59 06:59 Intake Total 480 ml Output Total 750 ml 700 ml Balance -750 ml -220 ml Intake Oral 480 ml Output Urine Total 750 ml 700 ml ET-Tube: 7.5 ET Position: 24 Jeromy Slaughter MD Mar 04, 2019 14:58
--- NOTE | 2019-03-04 14:59 | Nephrology Progress Note ---
Assessment/Plan Problem List: (1) STEFANI (acute kidney injury) Assessment: Cr lower (2) Septic shock (3) Electrolyte and fluid disorder (4) Abnormal LFTs Assessment: fatty liver (5) Hyperbilirubinemia Assessment - STEFANI (acute kidney injury) - Septic shock - Lactic acid acidosis - Abnormal LFTs - Gastrointestinal bleed - Alcohol withdrawal seizure Plan K and Mag and Phos supplement as needed discussed with RN PRN Albumin bolus for low bp Midodrine post extubation care start feeding Hemodynamic support Pressors / Fluids as needed Aim to correct the electrolyte and acid base imbalance monitor renal parameters gastric support switch dilantin to keppra as LFTs rising per orders Subjective ROS Limited/Unobtainable: No Objective Objective Last 24 Hour Vital Signs Date Time Temp Pulse Resp B/P (MAP) Pulse Ox O2 Delivery O2 Flow Rate FiO2 03/04/19 12:00 89 03/04/19 12:00 97.0 95 22 112/75 (87) 96 03/04/19 09:00 Room Air Room Air 03/04/19 08:00 97.0 103 24 105/76 (86) 99 03/04/19 08:00 99 03/04/19 04:00 98.1 84 18 114/77 (89) 99 03/04/19 04:00 84 03/04/19 00:00 97.7 96 18 120/80 (93) 98 03/04/19 00:00 96 03/03/19 21:00 Room Air Room Air 03/03/19 20:18 97 Room Air 21 03/03/19 20:00 98.1 104 20 120/80 (93) 96 03/03/19 20:00 104 03/03/19 16:18 97.0 98 22 112/72 (85) 96 03/03/19 16:00 57 Intake and Output 03/03/19 03/04/19 18:59 06:59 Intake Total 480 ml Output Total 750 ml 700 ml Balance -750 ml -220 ml Intake Oral 480 ml Output Urine Total 750 ml 700 ml Laboratory Tests 03/04/19 14:10: Random Vancomycin Level 12.9 Height (Feet): 5 Height (Inches): 5.00 Weight (Pounds): 165 General Appearance: no apparent distress Cardiovascular: normal rate Respiratory/Chest: decreased breath sounds Abdomen: soft Objective no change Scotty Bailon MD Mar 04, 2019 14:59
--- NOTE | 2019-03-04 15:33 | NUR ---
CASE MANAGEMENT: REVIEW 03/04/2019 SI:SEPSIS. ACUTE RESP FAILURE. T 97.7 HR 96 RR 18 B/P 120/80 SATS 98% ON RA NO LABS TODAY IS:RIFAXIMIN PO Q12H PREVACID PO Q12H THIAMINE NG QD KEPPRA IV Q12H KCL IV X1 CEFEPIME IV Q24H MICAFUNGIN IV Q24H FLAGYL IV Q8H TELE STATUS
[2019-03-04 16:00] VITALS: BP 113/80
[2019-03-04] MEDS ORDERED: Vancomycin 1.25gm Premix IVPB SCH (16:00)
[2019-03-04] MEDS ORDERED: Heparin1,000 units/500ml Premix(Conc:2 units/ml) IV PRN (19:15)
[2019-03-04] MEDS ORDERED: Lidocaine 1% Plain 30 ml INJ PRN (19:15)
--- NOTE | 2019-03-04 19:41 | NUR ---
NURSE NOTES: Consents for both procedures in the chart.
--- NOTE | 2019-03-04 19:54 | NUR ---
NURSE NOTES: Report received from ESHA Almanza. Observed pt sleeping in bed. A/O x2. SR with potline monitor. RA with no signs of SOB. Abd soft, non-tender. Bilateral soft restraints noted, skin intact, bilateral pulse checked. Bed in the lowest position. Side rails padded and up x3. Call light within reach. Will continue to monitor.
--- NOTE | 2019-03-04 19:55 | NUR ---
HAND-OFF: Report given to ESHA Hernández. Plan of care endorsed
[2019-03-04 20:00] VITALS: BP 124/100
[2019-03-04] MEDS: Dyna-Hex 2% Top Sol 2oz TOPIC SCH (20:00)
--- NOTE | 2019-03-04 20:39 | General Progress Note ---
Assessment/Plan Status: progressing Assessment/Plan: 54 year old male with pMH of seizure disorder and etoh abuse admitted for seizures 2/2 non-compliance #severe septic shock likely 2/2 UTI - imprved #Gram negative bacteremia, now resolved by surveillance follow up blood culture #Acute respiratory failure requiting intubation s/p extubation 03/01 -abx per ID - Re culture ordered due to severe increase in the WBC from 15 to 26 to 29 thousand of unclear etiology - Hematology consult noted to be due to sepsis. - CBC serial. - CT 02/18 with atelectasis primarily - Diuresis -ID consult appreciated - Immunoglobulin and hepatitis panel negative. -abg prn - Reviewed CT chest/abd/pel -PICC placement in AM # Transaminitis - f/u HIDA : non obstructive, findings c/w intracellular damage - ctm - appreciate GI and Sx input - us shows nodularity and chronic disease - hep panel negative - ggt increased - f/u GI # Hemoptysis - resolved - s/p bronch 02/27 with Therapeutic aspiration and mucus plug from the endotracheal tube in right upper lobe., - monitor ett output - monitor hgb #Lactic acidosis - resolved -2/2 severe shock/ poss abd source/ seizures - 2 D Echo on 02/16 with EF 65%. Discussed with cardiology and etiology likely sepsis and not cardiogenic -CTM -Fluid boluses completed. -Cont mIVF #Coagulopathy # Thrombocytopenia - 40,000 stable Monitor. No active bleeding toay. - Hematology consult with Dr. Johnston appreciated. Flow cytometry pending. -likely 2/2 hepatic injury 2/2 shock - Consumption coagulopathy. - Consider platelet transfusion if LESS than 30K with urine blood tinge color. #Coffee ground emesis likely in setting of GI bleed -H/H trending down. Monitor -GI consult appreciated -s/p EGD, no significant findings, f/u biopsies #Seizures 2/2 noncomplaint with AED -s/p phenytoin load in ED -Cont Phenytoin -Neurology consult appreciated -pending EEG - no seizures noted in last 24 hours -Ativan PRN for seizures -NPO -Seizure precautions #Hypokalemia - Replete as needed #hypophosphatemia - Repleted. #Hypomagnesemia -repleted -CTM # Urethral hemorrhage and clot evacuation - stable - appreciate urology consult - If recurrent hemorrhage will address. - H/H and INR stat today. - Consider PRBC and Platelets if Hb < 8 or Plt < 30 K # Urinary retention PVR > 300 cc WILKINSON replaced 02/[address] ( in case of repeat hemorrhage ) D/w RN Code: Full Subjective Date patient seen: Mar 04, 2019 Allergies: Coded Allergies: No Known Allergies (Unverified , 02/10/15) Subjective Pt pulled out PICC, unable to obtain PIV line, IV meds changed to PO, discussed with ID, pt still needs IV abx/antifungal, Plan for PICC placement in AM, pt with no complaints, tolerating PO intake, ABD noted to be more distended, may need paracenthesis, will discuss with GI in AM Objective Last 24 Hour Vital Signs Date Time Temp Pulse Resp B/P (MAP) Pulse Ox O2 Delivery O2 Flow Rate FiO2 03/04/19 20:00 97.8 89 22 124/100 (108) 99 03/04/19 16:00 97.2 88 21 113/80 (91) 98 03/04/19 16:00 86 03/04/19 12:00 89 03/04/19 12:00 97.0 95 22 112/75 (87) 96 03/04/19 09:00 Room Air Room Air 03/04/19 08:00 97.0 103 24 105/76 (86) 99 03/04/19 08:00 99 03/04/19 04:00 98.1 84 18 114/77 (89) 99 03/04/19 04:00 84 03/04/19 00:00 97.7 96 18 120/80 (93) 98 03/04/19 00:00 96 03/03/19 21:00 Room Air Room Air Intake and Output 03/03/19 03/04/19 19:00 07:00 Intake Total 480 ml Output Total 750 ml 700 ml Balance -750 ml -220 ml Intake Oral 480 ml Output Urine Total 750 ml 700 ml Laboratory Tests 03/04/19 14:10: Random Vancomycin Level 12.9 Height (Feet): 5 Height (Inches): 5.00 Weight (Pounds): 165 Objective General appearance: extubated, calm Head: Normocephalic, without obvious abnormality, atraumatic Eyes: conjunctivae/corneas clear. PERRL, EOM's intact. Fundi benign Throat: Lips, mucosa, and tongue normal. Teeth and gums normal Neck: supple, symmetrical, trachea midline, no adenopathy, thyroid: not enlarged, symmetric, no tenderness/mass/nodules, no carotid bruit and no JVD Lungs: b/l air entry, no wheezing noted Heart: regular rate and rhythm, S1, S2 normal, no murmur, click, rub or gallop Abdomen: soft, non-tender. Bowel sounds normal. No masses, no organomegaly, distended Extremities: extremities normal, atraumatic, no cyanosis or edema Pulses: 2+ and symmetric Skin: Skin color, texture, turgor normal. No rashes or lesions Neurologic: Grossly normal Lyn Cuevas MD Mar 04, 2019 20:39
[2019-03-04] MEDS: Tamsulosin 0.4mg cap ORAL SCH (21:34)
--- NOTE | 2019-03-04 22:43 | Neurology Progress Note ---
Interim History Interim History ROS Limited/Unobtainable: No Interim History more alert, confused at times, pulled picc line Objective Physical Exam Last Vital Signs Date Time Temp Pulse Resp B/P (MAP) Pulse Ox O2 Delivery O2 Flow Rate FiO2 03/04/19 21:00 Room Air Room Air 03/04/19 20:00 97.8 89 22 124/100 (108) 99 03/03/19 20:18 21 03/02/19 13:59 2.0 Laboratory Tests Test 03/04/19 14:10 Random Vancomycin Level 12.9 ug/mL Head: normocophalic Neck: no rigidity EENT: benign Neurologic Exam Mental Status: awake Speech: normal speech Cranial Nerves III, IV, : PERRLA Motor System: no involuntary movement Objective no nuchal rigidity Impression/Recommendations Problems: (1) Episode of confusion (2) Tachycardia (3) Fever (4) Diarrhea (5) Altered mental status (6) Alcohol withdrawal seizure (7) Oral thrush (8) Electrolyte and fluid disorder (9) Aspiration pneumonia (10) Alcohol withdrawal seizure (11) Non-compliance (12) Seizure disorder Status: progressing Diagnostic Impression seizure due to non compliance septic shock with bacteremia - improved broad sectrum atb dilantin 100 mg tid Myron Estrella MD Mar 04, 2019 22:43
[2019-03-05] VITALS: BP 115/8
--- NOTE | 2019-03-05 01:00 | NUR ---
NURSE NOTES: Observed pt sleeping in the bed. SR with powder press operator noted. No acute distress noted at this time.
[2019-03-05 04:00] VITALS: BP 110/77
--- NOTE | 2019-03-05 04:00 | NUR ---
NURSE NOTES: BM x1 noted, brown, soft, moderate amount noted. Bed bath given. Reposition done. Active ROM done. Will continue to monitor.
[2019-03-05] MEDS: metroNIDAZOLE 500mg tab ORAL SCH ×3 (05:20→21:38)
--- NOTE | 2019-03-05 07:21 | NUR ---
NURSE NOTES: Report received from ESHA Mcgrath. Patient awake. AOx2 at this time. Denies any pain or SOB. No IV access at this time. Picc line and paracentesis scheduled for today. Reminder given to Pt. consent in file. Pt. demanding breakfast. Per Alyson he can have breakfast but to hold lunch. Aguilar intact, draining. Pt. on restraint for safety. Bed on lowest position, side rails upx2, brakes engaged, alarm on. Call light within easy reach.
--- NOTE | 2019-03-05 07:30 | NUR ---
HAND-OFF: Report given to ESHA Sprague. No distress noted at this time.
[2019-03-05 07:33] LABS: HEMOGLOBIN 7.7 G/DL (14.2-18.0); MEAN CORPUSCULAR VOLUME 97 FL (80-99); PLATELET COUNT 309 K/UL (150-450); RED BLOOD COUNT 2.47 M/UL (4.70-6.10); RED CELL DISTRIBUTION WIDTH 15.9 % (11.6-14.8)
--- NOTE | 2019-03-05 07:35 | NUR ---
NURSE NOTES: Pt. +ve for jaundice, abd distended, hypoactive x4 quadrants. Denies any pain.
[2019-03-05 07:41] LABS: INR 1.6 (0.9-1.1)
[2019-03-05 07:49] LABS: WHITE BLOOD COUNT 25.4 K/UL (4.8-10.8)
[2019-03-05 08:00] VITALS: BP 117/87
[2019-03-05 08:03] LABS: ALANINE AMINOTRANSFERASE 43 U/L (12-78); ALBUMIN 1.4 G/DL (3.4-5.0); ALBUMIN/GLOBULIN RATIO 0.2 (1.0-2.7); ALKALINE PHOSPHATASE 235 U/L (46-116); ANION GAP 10 mmol/L (5-15); ASPARTATE AMINO TRANSFERASE 103 U/L (15-37); BILIRUBIN,TOTAL 8.2 MG/DL (0.2-1.0); BLOOD UREA NITROGEN 25 mg/dL (7-18); CALCIUM 8.2 MG/DL (8.5-10.1); CARBON DIOXIDE 21 MMOL/L (21-32); CHLORIDE 109 MMOL/L (98-107); CREATININE 1.9 MG/DL (0.55-1.30); POTASSIUM 4.2 MMOL/L (3.5-5.1); SODIUM 140 MMOL/L (136-145)
--- NOTE | 2019-03-05 08:26 | NUR ---
RADIOLOGY DEPT., CHEST X-RAY DONE.-P.DYE
--- NOTE | 2019-03-05 08:37 | Hematology/Onc Progress Note ---
Assessment/Plan Assessment/Plan # Bicytopenia with anemia likely due to Gi bleed -- stool occult blood +, requires further eval with gi, also with etoh withdrawal, also can be related to meds/abx, Hida shows Limited hepatic uptake and excretion, probably due to hepatocellular disease. Note that previous imaging studies suggest the presence of cirrhotic changes. --> anemia panel has been reviewed and results are acd --> peripheral smear reviewed and not noted to have blasts --> wbc remains elevated --> started on folate 1mg po daily (LOW FOLATE) --> Flow cytometry shows no evidence of b-lymphoproliferative disorder --> Hep panel negative # Anemia of chronic disease, per anemia panel --> hgb trend 8-->7-->8-->9-->8.6-->7.7-->7.9-->8.3-->7.9->8.5-->9-->10-->9.9--> 7.7 --> may require gi eval when more stable with scope (EGD) --> transfuse if hb <7 --> cont folic acid and thiamine # Leukocytosis due to Septic shock and severe Lactic acidosis on Levophed and broad-spectrum IV antibiotics. --> per ID care, continue abx --> pressor as needed --> flagyl, cefepime, carmen --> Hgb trend: 34.9 -->28k-->35k-->17k # Sinus tachycardia up to 170s. No evidence of acute myocardial infarction . --> This is likely due to sepsis and anemia, alcohol withdrawal --> Echo Nl EF 60% # Troponin leak, type 2. --> per cards # Respiratory failure on the vent. Failed weaning --> sbt trial per pulm, now extubated --> 02/27 the bronchoscope was advanced into both mainstem bronchi and subsegmental bronchi. There was increased secretions bilaterally, mucopurulent including mucus plugging of the right upper lobe, which was therapeutically aspirated. BAL specimen was sent. # Transaminitis with elev bilis --> as per gi with ast/alt high --> monitor for resol of sepsis # ETOH withdrawal --> recommend etoh cessation # Seizures with noncompliance Greatly appreciate consultation. Subjective Constitutional: Denies: no symptoms, chills, fever, malaise, weakness, other HEENT: Denies: no symptoms, eye pain, blurred vision, tearing, double vision, ear pain, ear discharge, nose pain, nose congestion, throat pain, throat swelling, mouth pain, mouth swelling, other Cardiovascular: Denies: no symptoms, chest pain, edema, irregular heart rate, lightheadedness, palpitations, syncope, other Respiratory: Denies: no symptoms, cough, shortness of breath, SOB with excertion, SOB at rest, sputum, wheezing, other Gastrointestinal/Abdominal: Denies: no symptoms, abdomen distended, abdominal pain, black stools, tarry stools, blood in stool, constipated, diarrhea, difficulty swallowing, nausea, poor appetite, poor fluid intake, rectal bleeding , vomiting, other Genitourinary: Denies: no symptoms, burning, discharge, frequency, flank pain, hematuria, incontinence, pain, urgency, other Neurologic/Psychiatric: Denies: no symptoms, anxiety, depressed, emotional problems, headache, numbness, paresthesia, pre-existing deficit, seizure, tingling, tremors, weakness, other Allergies: Coded Allergies: No Known Allergies (Unverified , 02/10/15) Subjective 02/20: intubated, counts are better, on vent, sbt in process, no f/c, mag low 02/21: endoscopy on hold at this time, bloody stool, plt better, on abx 02/22: no events reported, remains intubated, no bleeding, plt better, k is low, repleted\ 02/23: remains in icu, letargic, flow cytometry showed no evidence of b- lymphoproliferative disorder, c-diif negative, labs reviewed, remains on levo 02/24: in icu, on vent, wbc at 32, id made aware. 02/25: icu, weaning off of vent, labs reviewed, continues on abx 02/26: no fc, no changes reported, wbc high, ongoing hida scan 02/27: no events, bronch to be done today, results pending 02/28: no f/c, restraints++, ogt was inserted 03/01: s/p extubation, self-extubated, otherwise on abx, off pressors 03/02: no events too report, labs have been reviewed, off abx, remains agitated 03/03 no fevers or chills, no changes, breathing better, less altered 03/05: no events, no bleeding, hgb 7.7, on RA only, sating well Objective Objective Current Medications Medications (Trade) Dose Ordered Sig/Tonny Route PRN Reason Start Time Stop Time Status Last Admin Dose Admin Cefepime HCl 2 gm/ Dextrose 110 ml @ 220 mls/hr Q24H IV 03/03/19 09:00 03/09/19 08:59 03/03/19 08:20 Chlorhexidine Gluconate (Stephanie-Hex 2%) 1 applic DAILY@2000 TOPIC 03/04/19 20:00 04/03/19 19:59 Dextrose (Dextrose 50%) 25 ml Q30M PRN IV Hypoglycemia 03/02/19 17:45 03/16/19 16:14 Dextrose (Dextrose 50%) 50 ml Q30M PRN IV Hypoglycemia 03/02/19 17:45 03/16/19 16:14 Lactobacillus Acidophilus (Culturelle) 1 tab EVERY 12 HOURS ORAL 03/02/19 21:00 03/26/19 17:59 03/04/19 21:34 Lactulose (Cephulac) 10 gm THREE TIMES A DAY ORAL 03/02/19 18:00 04/01/19 12:59 03/04/19 09:01 Lansoprazole (Prevacid) 30 mg EVERY 12 HOURS ORAL 03/02/19 21:00 03/26/19 17:59 03/04/19 21:34 Levetiracetam (Keppra) 500 mg Q12HR ORAL 03/03/19 21:00 04/02/19 20:59 03/04/19 21:34 Metronidazole (Flagyl) 500 mg Q8HR ORAL 03/03/19 22:00 03/10/19 21:59 03/05/19 05:20 Micafungin Sodium 100 mg/Sodium Chloride 110 ml @ 110 mls/hr Q24H IVPB 03/03/19 10:30 03/10/19 10:29 03/03/19 09:50 Ondansetron HCl (Zofran) 4 mg Q6H PRN IVP Nausea & Vomiting 03/02/19 18:30 03/16/19 18:29 Rifaximin (Xifaxan) 550 mg EVERY 12 HOURS ORAL 03/02/19 21:00 03/09/19 20:59 03/04/19 21:34 Tamsulosin HCl (Flomax) 0.4 mg BEDTIME ORAL 03/03/19 21:00 04/02/19 20:59 03/04/19 21:34 Thiamine HCl (Vitamin B1) 100 mg DAILY NG 03/03/19 09:00 03/27/19 08:59 03/04/19 09:01 Vancomycin HCl (Vanco rx to dose) 1 ea DAILY PRN MISC Per rx protocol 03/03/19 09:00 03/17/19 12:59 Last 24 Hour Vital Signs Date Time Temp Pulse Resp B/P (MAP) Pulse Ox O2 Delivery O2 Flow Rate FiO2 03/05/19 04:00 88 03/05/19 04:00 97.5 87 20 110/77 (88) 96 03/05/19 00:00 81 03/05/19 00:00 97.5 85 20 115/8 (43) 97 03/04/19 21:00 Room Air Room Air 03/04/19 20:00 97.8 89 22 124/100 (108) 99 03/04/19 20:00 88 03/04/19 19:05 96 Room Air 21 03/04/19 16:00 97.2 88 21 113/80 (91) 98 03/04/19 16:00 86 03/04/19 12:00 89 03/04/19 12:00 97.0 95 22 112/75 (87) 96 03/04/19 09:00 Room Air Room Air 03/04/19 08:00 97.0 103 24 105/76 (86) 99 03/04/19 08:00 99 03/04/19 04:00 98.1 84 18 114/77 (89) 99 03/04/19 04:00 84 03/04/19 00:00 97.7 96 18 120/80 (93) 98 03/04/19 00:00 96 03/03/19 21:00 Room Air Room Air 03/03/19 20:18 97 Room Air 21 03/03/19 20:00 98.1 104 20 120/80 (93) 96 03/03/19 20:00 104 03/03/19 16:18 97.0 98 22 112/72 (85) 96 03/03/19 16:00 57 03/03/19 12:00 103 03/03/19 12:00 97.3 102 23 118/59 (78) 96 03/03/19 09:00 Room Air Room Air Intake and Output 03/04/19 03/05/19 19:00 07:00 Intake Total 48 ml 600 ml Output Total 650 ml 650 ml Balance -602 ml -50 ml Intake Oral 48 ml 600 ml Output Urine Total 650 ml 650 ml # Bowel Movements 1 1 Labs Test 03/03/19 05:00 03/04/19 14:10 03/05/19 07:03 White Blood Count 17.3 K/UL (4.8-10.8) 25.4 K/UL (4.8-10.8) Red Blood Count 3.20 M/UL (4.70-6.10) 2.47 M/UL (4.70-6.10) Hemoglobin 9.9 G/DL (14.2-18.0) 7.7 G/DL (14.2-18.0) Hematocrit 30.3 % (42.0-52.0) 24.0 % (42.0-52.0) Mean Corpuscular Volume 95 FL (80-99) 97 FL (80-99) Mean Corpuscular Hemoglobin 30.9 PG (27.0-31.0) 31.0 PG (27.0-31.0) Mean Corpuscular Hemoglobin Concent 32.6 G/DL (32.0-36.0) 32.0 G/DL (32.0-36.0) Red Cell Distribution Width 16.1 % (11.6-14.8) 15.9 % (11.6-14.8) Platelet Count 400 K/UL (150-450) 309 K/UL (150-450) Mean Platelet Volume 5.8 FL (6.5-10.1) 6.1 FL (6.5-10.1) Neutrophils (%) (Auto) 69.2 % (45.0-75.0) % (45.0-75.0) Lymphocytes (%) (Auto) 11.6 % (20.0-45.0) % (20.0-45.0) Monocytes (%) (Auto) 15.3 % (1.0-10.0) % (1.0-10.0) Eosinophils (%) (Auto) 2.2 % (0.0-3.0) % (0.0-3.0) Basophils (%) (Auto) 1.8 % (0.0-2.0) % (0.0-2.0) Prothrombin Time 16.6 SEC (9.30-11.50) 17.1 SEC (9.30-11.50) Prothromb Time International Ratio 1.6 (0.9-1.1) 1.6 (0.9-1.1) Activated Partial Thromboplast Time 39 SEC (23-33) 37 SEC (23-33) Sodium Level 149 MMOL/L (136-145) 140 MMOL/L (136-145) Potassium Level 3.3 MMOL/L (3.5-5.1) 4.2 MMOL/L (3.5-5.1) Chloride Level 115 MMOL/L (98-107) 109 MMOL/L (98-107) Carbon Dioxide Level 24 MMOL/L (21-32) 21 MMOL/L (21-32) Anion Gap 10 mmol/L (5-15) 10 mmol/L (5-15) Blood Urea Nitrogen 27 mg/dL (7-18) 25 mg/dL (7-18) Creatinine 2.0 MG/DL (0.55-1.30) 1.9 MG/DL (0.55-1.30) Estimat Glomerular Filtration Rate 42.3 mL/min (>60) 44.8 mL/min (>60) Glucose Level 116 MG/DL (74-106) 113 MG/DL (74-106) Calcium Level 7.8 MG/DL (8.5-10.1) 8.2 MG/DL (8.5-10.1) Phosphorus Level 3.6 MG/DL (2.5-4.9) Magnesium Level 1.7 MG/DL (1.8-2.4) Total Bilirubin 10.0 MG/DL (0.2-1.0) 8.2 MG/DL (0.2-1.0) Direct Bilirubin 8.1 MG/DL (0.0-0.3) 6.0 MG/DL (0.0-0.3) Aspartate Amino Transf (AST/SGOT) 113 U/L (15-37) 103 U/L (15-37) Alanine Aminotransferase (ALT/SGPT) 46 U/L (12-78) 43 U/L (12-78) Alkaline Phosphatase 254 U/L (46-116) 235 U/L (46-116) Ammonia 18 umol/L (11-32) Total Protein 6.5 G/DL (6.4-8.2) 7.3 G/DL (6.4-8.2) Albumin 1.3 G/DL (3.4-5.0) 1.4 G/DL (3.4-5.0) Globulin 5.2 g/dL 5.9 g/dL Albumin/Globulin Ratio 0.2 (1.0-2.7) 0.2 (1.0-2.7) Random Vancomycin Level 12.9 ug/mL Height (Feet): 5 Height (Inches): 5.00 Weight (Pounds): 165 Objective Gen: NAD HEENT: atraumatic, other - OGT Lungs: clear, ++RA sating 95% Heart: HR/BP unstable Abdomen: soft, non-tender, active bowel sounds Extremities: no cce, L femoral cath+ Robert Johnston MD Mar 05, 2019 08:37
--- NOTE | 2019-03-05 08:54 | Urology Progress Note ---
Assessment/Plan Status: progressing Assessment/Plan: 1. Gross hematuria history, improved. 2. Urinary retention. 3. Probable neurogenic bladder. 4. Urinary tract infection history. 5. Sepsis history. monitor clinically delgado indwelling hand irrigate PRN abx as ordered renal fxn stable flomax aaded voding trial today d/w Dr. Cuevas Subjective Allergies: Coded Allergies: No Known Allergies (Unverified , 02/10/15) Subjective all noted, more alert Objective Last 24 Hour Vital Signs Date Time Temp Pulse Resp B/P (MAP) Pulse Ox O2 Delivery O2 Flow Rate FiO2 03/05/19 04:00 88 03/05/19 04:00 97.5 87 20 110/77 (88) 96 03/05/19 00:00 81 03/05/19 00:00 97.5 85 20 115/8 (43) 97 03/04/19 21:00 Room Air Room Air 03/04/19 20:00 97.8 89 22 124/100 (108) 99 03/04/19 20:00 88 03/04/19 19:05 96 Room Air 21 03/04/19 16:00 97.2 88 21 113/80 (91) 98 03/04/19 16:00 86 03/04/19 12:00 89 03/04/19 12:00 97.0 95 22 112/75 (87) 96 03/04/19 09:00 Room Air Room Air Intake and Output 03/04/19 03/05/19 19:00 07:00 Intake Total 48 ml 600 ml Output Total 650 ml 650 ml Balance -602 ml -50 ml Intake Oral 48 ml 600 ml Output Urine Total 650 ml 650 ml # Bowel Movements 1 1 Microbiology Date/Time Source Procedure Growth Status 02/25/19 09:15 Blood Blood Culture - Final NO GROWTH AFTER 5 DAYS Complete 02/27/19 15:00 Sputum Expectorated Pneumocystis jiroveci Smear (DFA) - Final Complete 02/22/19 23:55 Stool Clostridium difficile Toxin Assay - Final Complete 02/25/19 09:05 Indwelling Cath Urine Culture - Final NO GROWTH AFTER 48 HOURS Complete Current Medications Medications (Trade) Dose Ordered Sig/Tonny Route PRN Reason Start Time Stop Time Status Last Admin Dose Admin Cefepime HCl 2 gm/ Dextrose 110 ml @ 220 mls/hr Q24H IV 03/03/19 09:00 8/2/19 08:59 03/03/19 08:20 Chlorhexidine Gluconate (Stephanie-Hex 2%) 1 applic DAILY@2000 TOPIC 03/04/19 20:00 04/03/19 19:59 Dextrose (Dextrose 50%) 25 ml Q30M PRN IV Hypoglycemia 03/02/19 17:45 03/16/19 16:14 Dextrose (Dextrose 50%) 50 ml Q30M PRN IV Hypoglycemia 03/02/19 17:45 03/16/19 16:14 Lactobacillus Acidophilus (Culturelle) 1 tab EVERY 12 HOURS ORAL 03/02/19 21:00 03/26/19 17:59 03/04/19 21:34 Lactulose (Cephulac) 10 gm THREE TIMES A DAY ORAL 03/02/19 18:00 04/01/19 12:59 03/04/19 09:01 Lansoprazole (Prevacid) 30 mg EVERY 12 HOURS ORAL 03/02/19 21:00 03/26/19 17:59 03/04/19 21:34 Levetiracetam (Keppra) 500 mg Q12HR ORAL 03/03/19 21:00 04/02/19 20:59 03/04/19 21:34 Metronidazole (Flagyl) 500 mg Q8HR ORAL 03/03/19 22:00 03/10/19 21:59 03/05/19 05:20 Micafungin Sodium 100 mg/Sodium Chloride 110 ml @ 110 mls/hr Q24H IVPB 03/03/19 10:30 03/10/19 10:29 03/03/19 09:50 Ondansetron HCl (Zofran) 4 mg Q6H PRN IVP Nausea & Vomiting 03/02/19 18:30 03/16/19 18:29 Rifaximin (Xifaxan) 550 mg EVERY 12 HOURS ORAL 03/02/19 21:00 03/09/19 20:59 03/04/19 21:34 Tamsulosin HCl (Flomax) 0.4 mg BEDTIME ORAL 03/03/19 21:00 04/02/19 20:59 03/04/19 21:34 Thiamine HCl (Vitamin B1) 100 mg DAILY NG 03/03/19 09:00 03/27/19 08:59 03/04/19 09:01 Vancomycin HCl (Vanco rx to dose) 1 ea DAILY PRN MISC Per rx protocol 03/03/19 09:00 03/17/19 12:59 Laboratory Tests 03/04/19 14:10: Random Vancomycin Level 12.9 03/05/19 07:03: White Blood Count 25.4*H, Red Blood Count 2.47L, Hemoglobin 7.7L, Hematocrit 24.0L, Mean Corpuscular Volume 97, Mean Corpuscular Hemoglobin 31.0, Mean Corpuscular Hemoglobin Concent 32.0, Red Cell Distribution Width 15.9H, Platelet Count 309, Mean Platelet Volume 6.1L, Neutrophils (%) (Auto) , Lymphocytes (%) (Auto) , Monocytes (%) (Auto) , Eosinophils (%) (Auto) , Basophils (%) (Auto) , Neutrophils % (Manual) [Pending], Lymphocytes % (Manual) [Pending], Platelet Estimate [Pending], Platelet Morphology [Pending], Prothrombin Time 17.1H, Prothromb Time International Ratio 1.6H, Activated Partial Thromboplast Time 37H, Sodium Level 140, Potassium Level 4.2, Chloride Level 109H, Carbon Dioxide Level 21, Anion Gap 10, Blood Urea Nitrogen 25H, Creatinine 1.9H, Estimat Glomerular Filtration Rate 44.8, Glucose Level 113H, Calcium Level 8.2L, Total Bilirubin 8.2H, Direct Bilirubin 6.0H, Aspartate Amino Transf (AST/SGOT) 103H, Alanine Aminotransferase (ALT/SGPT) 43, Alkaline Phosphatase 235H, Total Protein 7.3, Albumin 1.4L, Globulin 5.9, Albumin/ Globulin Ratio 0.2L, Nick-Mckeon Virus Capsid Ag IgM Ab [Pending], Herpes Simplex Virus I IgM Ab (IFA) [Pending], Herpes Simplex Virus II IgM Ab (IFA [ Pending] Height (Feet): 5 Height (Inches): 5.00 Weight (Pounds): 165 Objective exam stable, urine clearing Jeremy Matta MD Mar 05, 2019 08:54
[2019-03-05] MEDS: Lactobacillus-GG tablet ORAL SCH ×2 (09:13→21:39)
[2019-03-05] MEDS: Lactulose 10gm/15ml UDC ORAL SCH ×3 (09:13→18:26)
[2019-03-05] MEDS: Thiamine 100mg tab NG SCH (09:13)
[2019-03-05] MEDS ORDERED: Lidocaine 1% Plain 30 ml INJ PRN (09:15)
[2019-03-05] MEDS ORDERED: Heparin1,000 units/500ml Premix(Conc:2 units/ml) IV PRN (09:15)
--- NOTE | 2019-03-05 09:41 | Pre-Procedure Note/Attestation ---
Pre-Procedure Note/Attestation Complete Prior to Procedure Planned Procedure: not applicable Procedure Narrative: paracentesis Indications for Procedure Pre-Operative Diagnosis: ascites Attestation I attest that I discussed the nature of the procedure; its benefits; risks and complications; and alternatives (and the risks and benefits of such alternatives ), prior to the procedure, with the patient (or the patient's legal escrow representative). I attest that, if there was a reasonable possibility of needing a blood transfusion, the patient (or the patient's legal escrow representative) was given the [facility] standardized written summary, pursuant to the Tushar Marianela Blood Safety Act ([place] Health and Safety Code # 1645, as amended). I attest that I re-evaluated the patient just prior to the surgery and that there has been no change in the patient's H&P, except as documented below: Jaguar Kearney MD Mar 05, 2019 09:41
--- NOTE | 2019-03-05 10:22 | Diagnostic Imaging Report ---
Indication: Shortness of breath Technique: One view of the chest Comparison: 02/27/2019 Findings: Interim removal of endotracheal and nasogastric tubes. There is some atelectasis at both lung bases. There is likely some pleural fluid and possibly some consolidation at the left lung base. The heart size is normal the aorta is tortuous. There is a calcification at the inferior aspect of the left shoulder joint. Impression: Bilateral basilar atelectasis. Possible left-sided pleural fluid and consolidation Interim endotracheal and nasogastric extubation
--- NOTE | 2019-03-05 10:27 | Nephrology Progress Note ---
Assessment/Plan Problem List: (1) STEFANI (acute kidney injury) (2) Septic shock (3) Electrolyte and fluid disorder (4) Abnormal LFTs Assessment: fatty liver (5) Hyperbilirubinemia Assessment - STEFANI (acute kidney injury) - Septic shock - Lactic acid acidosis - Abnormal LFTs - Gastrointestinal bleed - Alcohol withdrawal seizure Plan trial Albumin and one liter D5w K and Mag and Phos supplement as needed discussed with RN PRN Albumin bolus for low bp Midodrine post extubation care start feeding Hemodynamic support Pressors / Fluids as needed Aim to correct the electrolyte and acid base imbalance monitor renal parameters gastric support switch dilantin to keppra as LFTs rising per orders Subjective ROS Limited/Unobtainable: No Constitutional: Reports: malaise, weakness Objective Objective Last 24 Hour Vital Signs Date Time Temp Pulse Resp B/P (MAP) Pulse Ox O2 Delivery O2 Flow Rate FiO2 03/05/19 04:00 88 03/05/19 04:00 97.5 87 20 110/77 (88) 96 03/05/19 00:00 81 03/05/19 00:00 97.5 85 20 115/8 (43) 97 03/04/19 21:00 Room Air Room Air 03/04/19 20:00 97.8 89 22 124/100 (108) 99 03/04/19 20:00 88 03/04/19 19:05 96 Room Air 21 03/04/19 16:00 97.2 88 21 113/80 (91) 98 03/04/19 16:00 86 03/04/19 12:00 89 03/04/19 12:00 97.0 95 22 112/75 (87) 96 Intake and Output 03/04/19 03/05/19 19:00 07:00 Intake Total 48 ml 740 ml Output Total 650 ml 650 ml Balance -602 ml 90 ml Intake Oral 48 ml 740 ml Output Urine Total 650 ml 650 ml # Bowel Movements 1 1 Laboratory Tests 03/04/19 14:10: Random Vancomycin Level 12.9 03/05/19 07:03: White Blood Count 25.4*H, Red Blood Count 2.47L, Hemoglobin 7.7L, Hematocrit 24.0L, Mean Corpuscular Volume 97, Mean Corpuscular Hemoglobin 31.0, Mean Corpuscular Hemoglobin Concent 32.0, Red Cell Distribution Width 15.9H, Platelet Count 309, Mean Platelet Volume 6.1L, Neutrophils (%) (Auto) , Lymphocytes (%) (Auto) , Monocytes (%) (Auto) , Eosinophils (%) (Auto) , Basophils (%) (Auto) , Differential Total Cells Counted 100, Neutrophils % ( Manual) 75, Lymphocytes % (Manual) 10L, Monocytes % (Manual) 10, Eosinophils % ( Manual) 4H, Basophils % (Manual) 1, Band Neutrophils 0, Platelet Estimate Adequate, Platelet Morphology Normal, Hypochromasia 3+, Spherocytes 1+, Prothrombin Time 17.1H, Prothromb Time International Ratio 1.6H, Activated Partial Thromboplast Time 37H, Sodium Level 140, Potassium Level 4.2, Chloride Level 109H, Carbon Dioxide Level 21, Anion Gap 10, Blood Urea Nitrogen 25H, Creatinine 1.9H, Estimat Glomerular Filtration Rate 44.8, Glucose Level 113H, Calcium Level 8.2L, Total Bilirubin 8.2H, Direct Bilirubin 6.0H, Aspartate Amino Transf (AST/SGOT) 103H, Alanine Aminotransferase (ALT/SGPT) 43, Alkaline Phosphatase 235H, Total Protein 7.3, Albumin 1.4L, Globulin 5.9, Albumin/ Globulin Ratio 0.2L, Cytomegalovirus DNA PCR copies/ml [Pending], Cytomegalovirus DNA PCR log10 [Pending], Nick-Mckeon Virus Capsid Ag IgM Ab [ Pending], Herpes Simplex Virus I IgM Ab (IFA) [Pending], Herpes Simplex Virus II IgM Ab (IFA [Pending] Height (Feet): 5 Height (Inches): 5.00 Weight (Pounds): 165 General Appearance: no apparent distress Objective no change Scotty Bailon MD Mar 05, 2019 10:26
--- NOTE | 2019-03-05 10:41 | NUR ---
SPINDLE FRAME CARVERRESIDENT SURGEON SI: SEPSIS,SEIZURES,ACUTE KIDNEY INJURY T. 97.5 HR 87 RR 20 B/P 115/77 WBC 25.4 H/H 7.7/24.0 BUN 25 CR 1.9 CXR= BILATERAL BASILAR ATELECTASIS, LEFT SIDED PLEURAL FLUID AND CONGESTION IS: IVF D5@ 100ML MICAFUNGIN IV CEFEPIME IV LACTULOSE PO FLAGYL PO TELE STATUS
--- NOTE | 2019-03-05 11:09 | Diagnostic Imaging Report ---
Indications: Needs long-term IV access Technique: Ultrasound confirms patent compressible left basilic vein. Total sterile technique, including sterile probe cover and sterile gel, hat, mask, sterile gown, large sterile drape, and preparation with 2% chlorhexidine utilized. Local anesthesia with 1% lidocaine. Under real-time ultrasound guidance, puncture is vein using 21-gauge needle, documented and archived, passage 0.018 guidewire under direct fluoroscopy, which was used to determine appropriate catheter length, exchange for 4 And[place]ran peel-away sheath. 4 [place] Bard dual-lumen power PICC cut to 4 cm. It was inserted through the peel-away sheath. Peel-away sheath and guidewire removed. Catheter fixed to the skin. Both catheter ports aspirated and flushed. Patient tolerated procedure well, without immediate complication. Digital radiograph documents satisfactory catheter tip position, at the cavoatrial junction. Total fluoroscopy time 16.7 seconds. Total dose area product 1.4 mGym2 Total number of images: 1 Impression: Successful placement of left arm PICC under sonographic and fluoroscopic guidance, as described above.
--- NOTE | 2019-03-05 11:19 | NUR ---
*-* INSURANCE *-* UPDATED CLINICAL AD REVIEWS HAVE BEEN FAXED TO: VANESSA COREA: ANTWON P- [phone] X [phone] F-[phone]..............REVIEW/CLINICAL
[2019-03-05 12:00] VITALS: BP 118/81
--- NOTE | 2019-03-05 12:00 | NUR ---
NURSE NOTE: Waiting for an order to use PICC line for IV meds.
--- NOTE | 2019-03-05 12:15 | Surgery Progress Note ---
Surgery Progress Note Subjective Procedure Performed left femoral central venous catheter insertion Additional Comments Leukocytosis elevated this morning on blood work. H&H stable LFT's slightly improved no n/v/f/c exam stable Objective Last 24 Hour Vital Signs Date Time Temp Pulse Resp B/P (MAP) Pulse Ox O2 Delivery O2 Flow Rate FiO2 03/05/19 09:00 Room Air Room Air 03/05/19 08:00 88 03/05/19 08:00 96.9 90 18 117/87 (97) 95 03/05/19 04:00 88 03/05/19 04:00 97.5 87 20 110/77 (88) 96 03/05/19 00:00 81 03/05/19 00:00 97.5 85 20 115/8 (43) 97 03/04/19 21:00 Room Air Room Air 03/04/19 20:00 97.8 89 22 124/100 (108) 99 03/04/19 20:00 88 03/04/19 19:05 96 Room Air 21 03/04/19 16:00 97.2 88 21 113/80 (91) 98 03/04/19 16:00 86 I&O Intake and Output 03/04/19 03/05/19 19:00 07:00 Intake Total 48 ml 740 ml Output Total 650 ml 650 ml Balance -602 ml 90 ml Intake Oral 48 ml 740 ml Output Urine Total 650 ml 650 ml # Bowel Movements 1 1 Cardiovascular: RSR Respiratory: clear Abdomen: soft, distended, non-tender, present bowel sounds Laboratory Tests Test 03/04/19 14:10 03/05/19 07:03 Random Vancomycin Level 12.9 ug/mL White Blood Count 25.4 K/UL (4.8-10.8) *H Red Blood Count 2.47 M/UL (4.70-6.10) L Hemoglobin 7.7 G/DL (14.2-18.0) L Hematocrit 24.0 % (42.0-52.0) L Mean Corpuscular Volume 97 FL (80-99) Mean Corpuscular Hemoglobin 31.0 PG (27.0-31.0) Mean Corpuscular Hemoglobin Concent 32.0 G/DL (32.0-36.0) Red Cell Distribution Width 15.9 % (11.6-14.8) H Platelet Count 309 K/UL (150-450) Mean Platelet Volume 6.1 FL (6.5-10.1) L Neutrophils (%) (Auto) % (45.0-75.0) Lymphocytes (%) (Auto) % (20.0-45.0) Monocytes (%) (Auto) % (1.0-10.0) Eosinophils (%) (Auto) % (0.0-3.0) Basophils (%) (Auto) % (0.0-2.0) Differential Total Cells Counted 100 Neutrophils % (Manual) 75 % (45-75) Lymphocytes % (Manual) 10 % (20-45) L Monocytes % (Manual) 10 % (1-10) Eosinophils % (Manual) 4 % (0-3) H Basophils % (Manual) 1 % (0-2) Band Neutrophils 0 % (0-8) Platelet Estimate Adequate Platelet Morphology Normal Hypochromasia 3+ Spherocytes 1+ Prothrombin Time 17.1 SEC (9.30-11.50) H Prothromb Time International Ratio 1.6 (0.9-1.1) H Activated Partial Thromboplast Time 37 SEC (23-33) H Sodium Level 140 MMOL/L (136-145) Potassium Level 4.2 MMOL/L (3.5-5.1) Chloride Level 109 MMOL/L (98-107) H Carbon Dioxide Level 21 MMOL/L (21-32) Anion Gap 10 mmol/L (5-15) Blood Urea Nitrogen 25 mg/dL (7-18) H Creatinine 1.9 MG/DL (0.55-1.30) H Estimat Glomerular Filtration Rate 44.8 mL/min (>60) Glucose Level 113 MG/DL (74-106) H Calcium Level 8.2 MG/DL (8.5-10.1) L Total Bilirubin 8.2 MG/DL (0.2-1.0) H Direct Bilirubin 6.0 MG/DL (0.0-0.3) H Aspartate Amino Transf (AST/SGOT) 103 U/L (15-37) H Alanine Aminotransferase (ALT/SGPT) 43 U/L (12-78) Alkaline Phosphatase 235 U/L (46-116) H Total Protein 7.3 G/DL (6.4-8.2) Albumin 1.4 G/DL (3.4-5.0) L Globulin 5.9 g/dL Albumin/Globulin Ratio 0.2 (1.0-2.7) L Cytomegalovirus DNA PCR copies/ml Pending Cytomegalovirus DNA PCR log10 Pending Nick-Mckeon Virus Capsid Ag IgM Ab Pending Herpes Simplex Virus I IgM Ab (IFA) Pending Herpes Simplex Virus II IgM Ab (IFA Pending Plan Problems: (1) Non-compliance Assessment & Plan: Noncompliance with seizure medication with known history of seizures Now had seizure Appreciate neurology input (2) Electrolyte and fluid disorder Assessment & Plan: Likely due to EtOH use and dehydration IV hydration Trend labs (3) Fever (4) Oral thrush (5) Diarrhea (6) Aspiration pneumonia (7) Seizure disorder (8) Tachycardia (9) Altered mental status (10) Alcohol withdrawal seizure (11) Alcohol withdrawal seizure (12) Episode of confusion (13) Coffee ground emesis (14) Gastrointestinal bleed Assessment & Plan: Patient on admission identified to have maroon-colored stool and coffee-ground emesis. Labs noted mild anemia with H&H trending down. No acute active bleed noted but given patient's history high risk for potential ulcers. PPI Appreciate GI input considerations for EGD once stable No evidence of pulmonary embolus, aortic dissection or aneurysm. Posterior basilar consolidation suspicious for pneumonia. Correlate clinically. Trace bilateral pleural effusions. Possible enterocolitis as described above. Please correlate clinically. Mild ascites Fatty liver Cholelithiasis with wall thickening. Cholecystitis not excluded. Small right inguinal hernia containing fat Extensive breathing motion artifact limiting evaluation. We will follow with recommendations thank you (15) Sinus tachycardia (16) Septic shock (17) Sepsis Assessment & Plan: Patient septic leukocytosis improved today lactic acidosis resolved anemia renal function declining electrolyte disturbance US noted picc out transition to oral meds extubated doing well US noted again. liver decompensated HIDA noted and likely cirrhosis delgado AM labs reordered We will discuss with GI about paracentesis. Patient's abdominal and becoming more distended and fluid-filled with ascites US paracentesis ordered (18) Lactic acid acidosis (19) STEFANI (acute kidney injury) (20) Abnormal LFTs (21) High anion gap metabolic acidosis Juanpablo Marcus Mar 05, 2019 12:15
[2019-03-05] MEDS: Cefepime HCl 2 GM in D5W 110 ML IV SCH (13:23)
--- NOTE | 2019-03-05 13:37 | NUR ---
RD ASSESSMENT & RECOMMENDATIONS SEE CARE ACTIVITY FOR COMPLETE ASSESSMENT DAILY ESTIMATED NEEDS: Needs based on Pulmonary, liver dysfunction, sepsis 72.7kg 25-30 kcals/kg 6844-3498 total kcals 1-2 g protein/kg 73-145 g total protein 25-30 mL/kg 9183-3343 total fluid mLs NUTRITION DIAGNOSIS: 1) Swallowing difficulty r/t respiratory status as evidenced by pt now s/p extubation, OGT removed, on pureed moist, NTL per PICK UP AND DELIVERY DRIVER rec. 2) Altered nutrition related lab values r/t clinical condition as evidenced by pt w/ low lytes (K now wnl, phos now wnl, Mg 1.7), critically elev WBC, elev ammonia-> now wnl, elev T bili (1.4->11.0-> 8.2 trend back down). CURRENT DIET:REGULAR, pureed moist, NTL PO DIET RECOMMENDATIONS: LOW NA/ texture per PICK UP AND DELIVERY DRIVER ADDITIONAL RECOMMENDATIONS: 1) Obtain a CALIBRATED BED SCALE wt 2) Monitor lytes daily, replete as needed (low mag) 3) Monitor LFTs and T bili ( T bili 1.4 ->11.0 -> now trend back down 8.2 ) 4) Monitor PO intake closely- mostly good PO intake at this time . . .
--- NOTE | 2019-03-05 14:24 | Brief Operative Note ---
Immediate Post Operative Note Operative Note Pre-op Diagnosis: ascites Procedure: paracentesis Post-op Diagnosis: same as pre-op Surgeon: Jonathon KEARNEY Anesthesia: local Specimen: yes - fluid sent to the lab Complications: none Fluids: none Implant(s) used?: No Jaguar Kearney MD Mar 05, 2019 14:24
--- NOTE | 2019-03-05 15:31 | Diagnostic Imaging Report ---
Indications: Ascites Technique: Ultrasound used to localize optimal puncture site. Sterile prepping and draping right lower quadrant. Local anesthesia with 1% lidocaine. Under real-time ultrasound guidance, puncture peritoneal space using paracentesis needle. Stylet removed. Catheter placed to vacuum bottle suction. Total 4.35 liters of fluid aspirated. Patient tolerated procedure well, without immediate complication. A specimen was sent to the lab for analysis Findings: Followup sonography demonstrates complete resolution of peritoneal fluid. Impression: Successful ultrasound-guided paracentesis, yielding 4.35 liters of fluid
--- NOTE | 2019-03-05 15:34 | Cardiac Electrophysiology PN ---
Assessment/Plan Assessment/Plan 1. Sinus tachycardia up to 170s. No myocardial infarction . Due to sepsis and anemia and alcohol withdrawal. EF 60%. In SR in 90s 2. S/P Septic shock and E Coli bacteremia, on broad-spectrum IV antibiotics. 3. Troponin leak. Type 2. No CP 4. S/P Respiratory failure. Self extubated S/P Bronchoscopy and removal of mucus plug 5. ETOH withdrawal 6. Seizures with noncompliance. 7. Upper gi bleed. S/P EGD and passed swallow eval 8. Hematuria, resolved 9. Coffee ground emesis. EGD showed a. Medium-sized hiatal hernia. b. Portal hypertensive gastropathy, status post biopsy. 10. Liver cirrhosis with ascites.Billirubin down [address] Yusuf NOLASCO RN Subjective Subjective Confused in restraints. In SR Objective Last 24 Hour Vital Signs Date Time Temp Pulse Resp B/P (MAP) Pulse Ox O2 Delivery O2 Flow Rate FiO2 03/05/19 12:00 96.7 85 18 118/81 (93) 98 03/05/19 09:00 Room Air Room Air 03/05/19 08:00 88 03/05/19 08:00 96.9 90 18 117/87 (97) 95 03/05/19 04:00 88 03/05/19 04:00 97.5 87 20 110/77 (88) 96 03/05/19 00:00 81 03/05/19 00:00 97.5 85 20 115/8 (43) 97 03/04/19 21:00 Room Air Room Air 03/04/19 20:00 97.8 89 22 124/100 (108) 99 03/04/19 20:00 88 03/04/19 19:05 96 Room Air 21 03/04/19 16:00 97.2 88 21 113/80 (91) 98 03/04/19 16:00 86 Neck: abnormal alignment Intake and Output 03/04/19 03/05/19 18:59 06:59 Intake Total 48 ml 600 ml Output Total 650 ml 650 ml Balance -602 ml -50 ml Intake Oral 48 ml 600 ml Output Urine Total 650 ml 650 ml # Bowel Movements 1 1 Laboratory Tests Test 03/05/19 07:03 White Blood Count 25.4 K/UL (4.8-10.8) *H Red Blood Count 2.47 M/UL (4.70-6.10) L Hemoglobin 7.7 G/DL (14.2-18.0) L Hematocrit 24.0 % (42.0-52.0) L Mean Corpuscular Volume 97 FL (80-99) Mean Corpuscular Hemoglobin 31.0 PG (27.0-31.0) Mean Corpuscular Hemoglobin Concent 32.0 G/DL (32.0-36.0) Red Cell Distribution Width 15.9 % (11.6-14.8) H Platelet Count 309 K/UL (150-450) Mean Platelet Volume 6.1 FL (6.5-10.1) L Neutrophils (%) (Auto) % (45.0-75.0) Lymphocytes (%) (Auto) % (20.0-45.0) Monocytes (%) (Auto) % (1.0-10.0) Eosinophils (%) (Auto) % (0.0-3.0) Basophils (%) (Auto) % (0.0-2.0) Differential Total Cells Counted 100 Neutrophils % (Manual) 75 % (45-75) Lymphocytes % (Manual) 10 % (20-45) L Monocytes % (Manual) 10 % (1-10) Eosinophils % (Manual) 4 % (0-3) H Basophils % (Manual) 1 % (0-2) Band Neutrophils 0 % (0-8) Platelet Estimate Adequate Platelet Morphology Normal Hypochromasia 3+ Spherocytes 1+ Prothrombin Time 17.1 SEC (9.30-11.50) H Prothromb Time International Ratio 1.6 (0.9-1.1) H Activated Partial Thromboplast Time 37 SEC (23-33) H Sodium Level 140 MMOL/L (136-145) Potassium Level 4.2 MMOL/L (3.5-5.1) Chloride Level 109 MMOL/L (98-107) H Carbon Dioxide Level 21 MMOL/L (21-32) Anion Gap 10 mmol/L (5-15) Blood Urea Nitrogen 25 mg/dL (7-18) H Creatinine 1.9 MG/DL (0.55-1.30) H Estimat Glomerular Filtration Rate 44.8 mL/min (>60) Glucose Level 113 MG/DL (74-106) H Calcium Level 8.2 MG/DL (8.5-10.1) L Total Bilirubin 8.2 MG/DL (0.2-1.0) H Direct Bilirubin 6.0 MG/DL (0.0-0.3) H Aspartate Amino Transf (AST/SGOT) 103 U/L (15-37) H Alanine Aminotransferase (ALT/SGPT) 43 U/L (12-78) Alkaline Phosphatase 235 U/L (46-116) H Total Protein 7.3 G/DL (6.4-8.2) Albumin 1.4 G/DL (3.4-5.0) L Globulin 5.9 g/dL Albumin/Globulin Ratio 0.2 (1.0-2.7) L Cytomegalovirus DNA PCR copies/ml Pending Cytomegalovirus DNA PCR log10 Pending Nick-Mckeon Virus Capsid Ag IgM Ab Pending Herpes Simplex Virus I IgM Ab (IFA) Pending Herpes Simplex Virus II IgM Ab (IFA Pending Objective HEAD AND NECK: No JV. Icteric sclera LUNGS: Decreased breath sounds. CARDIOVASCULAR: Regular S1 and S2 with no gallop or murmur. ABDOMEN: Soft. EXTREMITIES: No pitting edema. Fidencio Trevino MD Mar 05, 2019 15:34
[2019-03-05] MEDS: Micafungin 100 MG in NS 110 ML IVPB SCH (15:50)
[2019-03-05 16:00] VITALS: BP 119/77
--- NOTE | 2019-03-05 19:00 | NUR ---
NURSE NOTES: Dr. Johnston made aware of Hgb and Hct results. No orders at this time.
--- NOTE | 2019-03-05 19:10 | NUR ---
NURSE NOTES: Received pt and report from ESHA Sprague. Observed pt resting in bed with both eyes open and watching television. Pt is A/Ox2. manager monitoring is in placed, IV site intact, asymptomatic, and patent. Bed is in the lowest position and locked, call light within reach. Pt is on bilateral non-behavioral soft wrist restraints. Skin color is normal and intact, pulses and sensations present. Pt is on seizure precaution. No seizure activity noted. No signs/symptoms of acute distress noted at this time. Will continue plan of care.
[2019-03-05 20:00] VITALS: BP 109/74
--- NOTE | 2019-03-05 20:14 | General Progress Note ---
Assessment/Plan Status: progressing Assessment/Plan: 54 year old male with pMH of seizure disorder and etoh abuse admitted for seizures 2/2 non-compliance #severe septic shock likely 2/2 UTI - imprved #Gram negative bacteremia, now resolved by surveillance follow up blood culture #Acute respiratory failure requiting intubation s/p extubation 03/01 -abx per ID - Re culture ordered due to severe increase in the WBC from 15 to 26 to 29 thousand of unclear etiology - Hematology consult noted to be due to sepsis. - CBC serial. - CT 02/18 with atelectasis primarily - Diuresis -ID consult appreciated - Immunoglobulin and hepatitis panel negative. -abg prn - Reviewed CT chest/abd/pel -PICC placement in AM # Transaminitis - improved #Ascites - paracenthesis today - f/u HIDA : non obstructive, findings c/w intracellular damage - ctm - appreciate GI and Sx input - us shows nodularity and chronic disease - hep panel negative - ggt increased - f/u GI # Hemoptysis - resolved - s/p bronch 02/27 with Therapeutic aspiration and mucus plug from the endotracheal tube in right upper lobe., - monitor ett output - monitor hgb #Lactic acidosis - resolved -2/2 severe shock/ poss abd source/ seizures - 2 D Echo on 02/16 with EF 65%. Discussed with cardiology and etiology likely sepsis and not cardiogenic -CTM -Fluid boluses completed. -Cont mIVF #Coagulopathy # Thrombocytopenia - 40,000 stable Monitor. No active bleeding toay. - Hematology consult with Dr. Johnston appreciated. Flow cytometry pending. -likely 2/2 hepatic injury 2/2 shock - Consumption coagulopathy. - Consider platelet transfusion if LESS than 30K with urine blood tinge color. #Coffee ground emesis likely in setting of GI bleed -H/H trending down. Monitor -GI consult appreciated -s/p EGD, no significant findings, f/u biopsies #Seizures 2/2 noncomplaint with AED -s/p phenytoin load in ED -Cont Phenytoin -Neurology consult appreciated -pending EEG - no seizures noted in last 24 hours -Ativan PRN for seizures -NPO -Seizure precautions #Hypokalemia - Replete as needed #hypophosphatemia - Repleted. #Hypomagnesemia -repleted -CTM # Urethral hemorrhage and clot evacuation - stable - appreciate urology consult - If recurrent hemorrhage will address. - Consider PRBC and Platelets if Hb < 8 or Plt < 30 K # Urinary retention PVR > 300 cc WILKINSON replaced 02/[address] ( in case of repeat hemorrhage ) - TRIAL OF VOID TODAY D/w RN Code: Full Subjective Date patient seen: Mar 05, 2019 Allergies: Coded Allergies: No Known Allergies (Unverified , 02/10/15) Subjective Pt seen with sister at bedside, had PICC placed today, s/p paracenthesis, TOV per urology. Pt states he is feeling ok has no complaints. Objective Last 24 Hour Vital Signs Date Time Temp Pulse Resp B/P (MAP) Pulse Ox O2 Delivery O2 Flow Rate FiO2 03/05/19 16:00 92 03/05/19 16:00 98.6 86 20 119/77 (91) 97 03/05/19 12:00 83 03/05/19 12:00 96.7 85 18 118/81 (93) 98 03/05/19 09:00 Room Air Room Air 03/05/19 08:00 88 03/05/19 08:00 96.9 90 18 117/87 (97) 95 03/05/19 04:00 88 03/05/19 04:00 97.5 87 20 110/77 (88) 96 03/05/19 00:00 81 03/05/19 00:00 97.5 85 20 115/8 (43) 97 03/04/19 21:00 Room Air Room Air Intake and Output 03/04/19 03/05/19 19:00 07:00 Intake Total 48 ml 740 ml Output Total 650 ml 650 ml Balance -602 ml 90 ml Intake Oral 48 ml 740 ml Output Urine Total 650 ml 650 ml # Bowel Movements 1 1 Laboratory Tests 03/05/19 07:03: White Blood Count 25.4*H, Red Blood Count 2.47L, Hemoglobin 7.7L, Hematocrit 24.0L, Mean Corpuscular Volume 97, Mean Corpuscular Hemoglobin 31.0, Mean Corpuscular Hemoglobin Concent 32.0, Red Cell Distribution Width 15.9H, Platelet Count 309, Mean Platelet Volume 6.1L, Neutrophils (%) (Auto) , Lymphocytes (%) (Auto) , Monocytes (%) (Auto) , Eosinophils (%) (Auto) , Basophils (%) (Auto) , Differential Total Cells Counted 100, Neutrophils % ( Manual) 75, Lymphocytes % (Manual) 10L, Monocytes % (Manual) 10, Eosinophils % ( Manual) 4H, Basophils % (Manual) 1, Band Neutrophils 0, Platelet Estimate Adequate, Platelet Morphology Normal, Hypochromasia 3+, Spherocytes 1+, Prothrombin Time 17.1H, Prothromb Time International Ratio 1.6H, Activated Partial Thromboplast Time 37H, Sodium Level 140, Potassium Level 4.2, Chloride Level 109H, Carbon Dioxide Level 21, Anion Gap 10, Blood Urea Nitrogen 25H, Creatinine 1.9H, Estimat Glomerular Filtration Rate 44.8, Glucose Level 113H, Calcium Level 8.2L, Total Bilirubin 8.2H, Direct Bilirubin 6.0H, Aspartate Amino Transf (AST/SGOT) 103H, Alanine Aminotransferase (ALT/SGPT) 43, Alkaline Phosphatase 235H, Total Protein 7.3, Albumin 1.4L, Globulin 5.9, Albumin/ Globulin Ratio 0.2L, Cytomegalovirus DNA PCR copies/ml [Pending], Cytomegalovirus DNA PCR log10 [Pending], Nick-Mckeon Virus Capsid Ag IgM Ab [ Pending], Herpes Simplex Virus I IgM Ab (IFA) [Pending], Herpes Simplex Virus II IgM Ab (IFA [Pending] Height (Feet): 5 Height (Inches): 5.00 Weight (Pounds): 165 Objective General appearance: extubated, calm Head: Normocephalic, without obvious abnormality, atraumatic Eyes: conjunctivae/corneas clear. PERRL, EOM's intact. Fundi benign Throat: Lips, mucosa, and tongue normal. Teeth and gums normal Neck: supple, symmetrical, trachea midline, no adenopathy, thyroid: not enlarged, symmetric, no tenderness/mass/nodules, no carotid bruit and no JVD Lungs: b/l air entry, no wheezing noted Heart: regular rate and rhythm, S1, S2 normal, no murmur, click, rub or gallop Abdomen: soft, non-tender. Bowel sounds normal. No masses, no organomegaly, distended Extremities: extremities normal, atraumatic, no cyanosis or edema Pulses: 2+ and symmetric Skin: Skin color, texture, turgor normal. No rashes or lesions Neurologic: Grossly normal Lyn Cuevas MD Mar 05, 2019:14
[2019-03-05] MEDS: Dyna-Hex 2% Top Sol 2oz TOPIC SCH (20:37)
--- NOTE | 2019-03-05 21:10 | NUR ---
NURSE NOTES: Dr. Matta completed bladder scan at bedside. Bladder scan residual revealed 325ml. Dr. Matta gave orders to insert Aguilar if bladder scan reveals residual >400ml.
--- NOTE | 2019-03-05 21:30 | NUR ---
NURSE NOTES: Received order from Dr. Matta to increase Flomax from 0.4mg to 0.8mg. Will input order and carry out.
[2019-03-05] MEDS: Tamsulosin 0.4mg cap ORAL SCH (21:38)
--- NOTE | 2019-03-05 22:09 | Neurology Progress Note ---
Interim History Interim History ROS Limited/Unobtainable: No Interim History no seizures Review of Systems All Systems: reviewed and negative except above Objective Physical Exam Last Vital Signs Date Time Temp Pulse Resp B/P (MAP) Pulse Ox O2 Delivery O2 Flow Rate FiO2 03/05/19 16:00 92 03/05/19 16:00 98.6 20 119/77 (91) 97 03/05/19 09:00 Room Air Room Air 03/04/19 19:05 21 03/02/19 13:59 2.0 Laboratory Tests Test 03/05/19 07:03 White Blood Count 25.4 K/UL (4.8-10.8) *H Red Blood Count 2.47 M/UL (4.70-6.10) L Hemoglobin 7.7 G/DL (14.2-18.0) L Hematocrit 24.0 % (42.0-52.0) L Mean Corpuscular Volume 97 FL (80-99) Mean Corpuscular Hemoglobin 31.0 PG (27.0-31.0) Mean Corpuscular Hemoglobin Concent 32.0 G/DL (32.0-36.0) Red Cell Distribution Width 15.9 % (11.6-14.8) H Platelet Count 309 K/UL (150-450) Mean Platelet Volume 6.1 FL (6.5-10.1) L Neutrophils (%) (Auto) % (45.0-75.0) Lymphocytes (%) (Auto) % (20.0-45.0) Monocytes (%) (Auto) % (1.0-10.0) Eosinophils (%) (Auto) % (0.0-3.0) Basophils (%) (Auto) % (0.0-2.0) Differential Total Cells Counted 100 Neutrophils % (Manual) 75 % (45-75) Lymphocytes % (Manual) 10 % (20-45) L Monocytes % (Manual) 10 % (1-10) Eosinophils % (Manual) 4 % (0-3) H Basophils % (Manual) 1 % (0-2) Band Neutrophils 0 % (0-8) Platelet Estimate Adequate Platelet Morphology Normal Hypochromasia 3+ Spherocytes 1+ Prothrombin Time 17.1 SEC (9.30-11.50) H Prothromb Time International Ratio 1.6 (0.9-1.1) H Activated Partial Thromboplast Time 37 SEC (23-33) H Sodium Level 140 MMOL/L (136-145) Potassium Level 4.2 MMOL/L (3.5-5.1) Chloride Level 109 MMOL/L (98-107) H Carbon Dioxide Level 21 MMOL/L (21-32) Anion Gap 10 mmol/L (5-15) Blood Urea Nitrogen 25 mg/dL (7-18) H Creatinine 1.9 MG/DL (0.55-1.30) H Estimat Glomerular Filtration Rate 44.8 mL/min (>60) Glucose Level 113 MG/DL (74-106) H Calcium Level 8.2 MG/DL (8.5-10.1) L Total Bilirubin 8.2 MG/DL (0.2-1.0) H Direct Bilirubin 6.0 MG/DL (0.0-0.3) H Aspartate Amino Transf (AST/SGOT) 103 U/L (15-37) H Alanine Aminotransferase (ALT/SGPT) 43 U/L (12-78) Alkaline Phosphatase 235 U/L (46-116) H Total Protein 7.3 G/DL (6.4-8.2) Albumin 1.4 G/DL (3.4-5.0) L Globulin 5.9 g/dL Albumin/Globulin Ratio 0.2 (1.0-2.7) L Cytomegalovirus DNA PCR copies/ml Pending Cytomegalovirus DNA PCR log10 Pending Nick-Mckeon Virus Capsid Ag IgM Ab Pending Herpes Simplex Virus I IgM Ab (IFA) Pending Herpes Simplex Virus II IgM Ab (IFA Pending Head: normocophalic Neck: no rigidity EENT: benign Neurologic Exam Mental Status: awake Speech: normal speech Cranial Nerves III, IV, : PERRLA Motor System: no involuntary movement Objective no nuchal rigidity Impression/Recommendations Problems: (1) Episode of confusion (2) Tachycardia (3) Fever (4) Diarrhea (5) Altered mental status (6) Alcohol withdrawal seizure (7) Oral thrush (8) Electrolyte and fluid disorder (9) Aspiration pneumonia (10) Alcohol withdrawal seizure (11) Non-compliance (12) Seizure disorder Status: progressing Diagnostic Impression seizure due to non compliance septic shock with bacteremia - improved broad sectrum atb dilantin 100 mg tid Myron Estrella MD Mar 05, 2019 22:09
--- NOTE | 2019-03-05 22:29 | NUR ---
NURSE NOTES: Pt had a BM and voided 320ml. Dr. Matta was made aware.
[2019-03-06] VITALS: BP 110/75
[2019-03-06 04:00] VITALS: BP 112/69
[2019-03-06 05:24] LABS: HEMATOCRIT 27.5 % (42.0-52.0); HEMOGLOBIN 8.9 G/DL (14.2-18.0); MEAN CORPUSCULAR VOLUME 97 FL (80-99); PLATELET COUNT 174 K/UL (150-450); RED BLOOD COUNT 2.85 M/UL (4.70-6.10); WHITE BLOOD COUNT 18.2 K/UL (4.8-10.8)
[2019-03-06 05:35] LABS: PHOSPHORUS 3.2 MG/DL (2.5-4.9)
[2019-03-06 05:44] LABS: ALANINE AMINOTRANSFERASE 37 U/L (12-78); ALBUMIN 1.5 G/DL (3.4-5.0); ALBUMIN/GLOBULIN RATIO 0.4 (1.0-2.7); ALKALINE PHOSPHATASE 184 U/L (46-116); ANION GAP 7 mmol/L (5-15); ASPARTATE AMINO TRANSFERASE 82 U/L (15-37); BILIRUBIN,TOTAL 7.2 MG/DL (0.2-1.0); BLOOD UREA NITROGEN 23 mg/dL (7-18); CALCIUM 7.6 MG/DL (8.5-10.1); CARBON DIOXIDE 24 MMOL/L (21-32); CHLORIDE 106 MMOL/L (98-107); CREATININE 1.8 MG/DL (0.55-1.30); POTASSIUM 3.8 MMOL/L (3.5-5.1); SODIUM 137 MMOL/L (136-145)
[2019-03-06 05:57] LABS: BILIRUBIN,DIRECT 5.9 MG/DL (0.0-0.3)
[2019-03-06] MEDS ORDERED: Vancomycin 1.25gm Premix IVPB SCH (06:00)
[2019-03-06] MEDS: metroNIDAZOLE 500mg tab ORAL SCH ×3 (06:07→21:48)
--- NOTE | 2019-03-06 06:30 | NUR ---
NURSE NOTES: Bladder scan showed 184ml.
--- NOTE | 2019-03-06 07:15 | NUR ---
NURSE NOTES: Nurse report given by My, RN. Patient's awake and comfortable in bed, denies pain, AO x 3, no s/s of distress or SOB. PICC line is on left side, double lumen, no sign of infection/redness or bleeding, will change dressing today. Bed at lowest position, break engaged, call light within reach. Will continue to monitor.
--- NOTE | 2019-03-06 07:35 | NUR ---
NURSE NOTES: D/C bilateral soft wrist restraints. Pt is no longer agitated. Pt is calm, pleasant, cooperative, and able to follow commands.
[2019-03-06 08:00] VITALS: BP 105/77
[2019-03-06] MEDS: Lactobacillus-GG tablet ORAL SCH ×2 (08:13→20:56)
[2019-03-06] MEDS: Cefepime HCl 2 GM in D5W 110 ML IV SCH (08:13)
[2019-03-06] MEDS: Thiamine 100mg tab NG SCH (08:13)
[2019-03-06] MEDS: Lactulose 10gm/15ml UDC ORAL SCH ×3 (08:13→17:47)
--- NOTE | 2019-03-06 08:25 | Urology Progress Note ---
Assessment/Plan Status: progressing Assessment/Plan: 1. Gross hematuria history, improved. 2. Urinary retention. 3. Probable neurogenic bladder. 4. Urinary tract infection history. 5. Sepsis history. 6. STEFANI. monitor clinically delgado out and voiding abx as ordered monitor renal flomax 0.8 mg Subjective Allergies: Coded Allergies: No Known Allergies (Unverified , 02/10/15) Subjective all noted, more alert, delgado out, voiding Objective Last 24 Hour Vital Signs Date Time Temp Pulse Resp B/P (MAP) Pulse Ox O2 Delivery O2 Flow Rate FiO2 03/06/19 04:00 97.2 92 17 112/69 (83) 97 03/06/19 04:00 88 03/06/19 01:45 94 Room Air 21 03/06/19 00:00 98.4 83 18 110/75 (87) 97 03/06/19 00:00 83 03/05/19 21:00 Room Air Room Air 03/05/19 20:00 97.9 81 18 109/74 (86) 97 03/05/19 20:00 95 03/05/19 16:00 92 03/05/19 16:00 98.6 86 20 119/77 (91) 97 03/05/19 12:00 83 03/05/19 12:00 96.7 85 18 118/81 (93) 98 03/05/19 09:00 Room Air Room Air Intake and Output 03/05/19 03/06/19 19:00 07:00 Intake Total 120 ml Balance 120 ml Intake Oral 120 ml # Voids 6 # Bowel Movements 5 Microbiology Date/Time Source Procedure Growth Status 02/25/19 09:15 Blood Blood Culture - Final NO GROWTH AFTER 5 DAYS Complete 03/05/19 12:30 Body Fluid Gram Stain - Final Resulted 03/05/19 12:30 Body Fluid Body Fluid Culture - Preliminary NO GROWTH Resulted 02/27/19 15:00 Sputum Expectorated Pneumocystis jiroveci Smear (DFA) - Final Complete 02/22/19 23:55 Stool Clostridium difficile Toxin Assay - Final Complete 02/25/19 09:05 Indwelling Cath Urine Culture - Final NO GROWTH AFTER 48 HOURS Complete Current Medications Medications (Trade) Dose Ordered Sig/Tonny Route PRN Reason Start Time Stop Time Status Last Admin Dose Admin Cefepime HCl 2 gm/ Dextrose 110 ml @ 220 mls/hr Q24H IV 03/03/19 09:00 03/09/19 08:59 03/06/19 08:13 Chlorhexidine Gluconate (Stephanie-Hex 2%) 1 applic DAILY@2000 TOPIC 03/04/19 20:00 04/03/19 19:59 03/05/19 20:37 Dextrose (Dextrose 50%) 25 ml Q30M PRN IV Hypoglycemia 03/02/19 17:45 03/16/19 16:14 Dextrose (Dextrose 50%) 50 ml Q30M PRN IV Hypoglycemia 03/02/19 17:45 03/16/19 16:14 Heparin Sodium/ Sodium Chloride (Heparin 1000 units/500ml Premix) 1,000 unit ONCE PRN IV picc line placement 03/05/19 09:15 03/07/19 09:14 Lactobacillus Acidophilus (Culturelle) 1 tab EVERY 12 HOURS ORAL 03/02/19 21:00 03/26/19 17:59 03/06/19 08:13 Lactulose (Cephulac) 10 gm THREE TIMES A DAY ORAL 03/02/19 18:00 04/01/19 12:59 03/06/19 08:13 Lansoprazole (Prevacid) 30 mg EVERY 12 HOURS ORAL 03/02/19 21:00 03/26/19 17:59 03/06/19 08:13 Levetiracetam (Keppra) 500 mg Q12HR ORAL 03/03/19 21:00 04/02/19 20:59 03/06/19 08:12 Lidocaine HCl (Xylocaine 1% 30ml) 30 ml ONCE PRN INJ picc line placement 03/05/19 09:15 03/07/19 09:14 Metronidazole (Flagyl) 500 mg Q8HR ORAL 03/03/19 22:00 03/10/19 21:59 03/06/19 06:07 Micafungin Sodium 100 mg/Sodium Chloride 110 ml @ 110 mls/hr Q24H IVPB 03/03/19 10:30 03/10/19 10:29 03/05/19 15:50 Ondansetron HCl (Zofran) 4 mg Q6H PRN IVP Nausea & Vomiting 03/02/19 18:30 03/16/19 18:29 Rifaximin (Xifaxan) 550 mg EVERY 12 HOURS ORAL 03/02/19 21:00 03/09/19 20:59 03/06/19 08:13 Tamsulosin HCl (Flomax) 0.8 mg BEDTIME ORAL 03/05/19 21:30 04/04/19 21:29 03/05/19 21:38 Thiamine HCl (Vitamin B1) 100 mg DAILY NG 03/03/19 09:00 03/27/19 08:59 03/06/19 08:13 Vancomycin HCl (Vanco rx to dose) 1 ea DAILY PRN MISC Per rx protocol 03/03/19 09:00 03/17/19 12:59 Laboratory Tests 03/06/19 05:00: White Blood Count 18.2H, Red Blood Count 2.85L, Hemoglobin 8.9L, Hematocrit 27.5L, Mean Corpuscular Volume 97, Mean Corpuscular Hemoglobin 31.3H, Mean Corpuscular Hemoglobin Concent 32.4, Red Cell Distribution Width 16.0H, Platelet Count 174, Mean Platelet Volume 6.5, Neutrophils (%) (Auto) , Lymphocytes (%) (Auto) , Monocytes (%) (Auto) , Eosinophils (%) (Auto) , Basophils (%) (Auto) , Differential Total Cells Counted 100, Neutrophils % ( Manual) 74, Lymphocytes % (Manual) 7L, Monocytes % (Manual) 11H, Eosinophils % ( Manual) 4H, Basophils % (Manual) 1, Band Neutrophils 3, Platelet Estimate Adequate, Platelet Morphology Normal, Anisocytosis 1+, Target Cells 2+, Carmichaels Cells 1+, Sodium Level 137, Potassium Level 3.8, Chloride Level 106, Carbon Dioxide Level 24, Anion Gap 7, Blood Urea Nitrogen 23H, Creatinine 1.8H, Estimat Glomerular Filtration Rate 47.8, Glucose Level 119H, Uric Acid 4.0, Calcium Level 7.6L, Phosphorus Level 3.2, Magnesium Level 1.4L, Total Bilirubin 7.2H, Direct Bilirubin 5.9H, Aspartate Amino Transf (AST/SGOT) 82H, Alanine Aminotransferase (ALT/SGPT) 37, Alkaline Phosphatase 184H, C-Reactive Protein, Quantitative 3.8H, Total Protein 5.7L, Albumin 1.5L, Globulin 4.2, Albumin/ Globulin Ratio 0.4L, Random Vancomycin Level 7.9 Height (Feet): 5 Height (Inches): 5.00 Weight (Pounds): 165 Objective exam stable Jeremy Matta MD Mar 06, 2019 08:25
--- NOTE | 2019-03-06 08:28 | NUR ---
HAND-OFF: Report given to ESHA Howe.
--- NOTE | 2019-03-06 08:58 | Pulmonology Progress Note ---
Assessment/Plan Problems: (1) Hyperbilirubinemia (2) Gastrointestinal bleed (3) Alcohol withdrawal seizure (4) Seizure disorder (5) Electrolyte and fluid disorder Assessment/Plan Optimize pulmonary hygiene/mobilize as tolerated PRN O2 Monitor volumes and renal function Abx per ID F/U GI recs, monitor LFT's Monitor counts, transfuse as needed Monitor for EtOH w/drawal, PRN ativan Continue AEDs, monitor for Sz's, F/U neuro recs FC Subjective Allergies: Coded Allergies: No Known Allergies (Unverified , 02/10/15) Subjective AFVSS on RA TB better still jaundiced Has not been OOB feels weak No F/C/CP/SOB/N/V/D/C Objective Last 24 Hour Vital Signs Date Time Temp Pulse Resp B/P (MAP) Pulse Ox O2 Delivery O2 Flow Rate FiO2 03/06/19 04:00 97.2 92 17 112/69 (83) 97 03/06/19 04:00 88 03/06/19 01:45 94 Room Air 21 03/06/19 00:00 98.4 83 18 110/75 (87) 97 03/06/19 00:00 83 03/05/19 21:00 Room Air Room Air 03/05/19 20:00 97.9 81 18 109/74 (86) 97 03/05/19 20:00 95 03/05/19 16:00 92 03/05/19 16:00 98.6 86 20 119/77 (91) 97 03/05/19 12:00 83 03/05/19 12:00 96.7 85 18 118/81 (93) 98 03/05/19 09:00 Room Air Room Air Intake and Output 03/05/19 03/06/19 19:00 07:00 Intake Total 120 ml Balance 120 ml Intake Oral 120 ml # Voids 6 # Bowel Movements 5 General Appearance: WD/WN, no acute distress HEENT: normocephalic, atraumatic, mucous membranes moist, other - icteric sclera Respiratory/Chest: chest wall non-tender, lungs clear, normal breath sounds, no respiratory distress, no accessory muscle use Cardiovascular: normal peripheral pulses, normal rate, regular rhythm Abdomen: normal bowel sounds, soft, non tender, no organomegaly, non distended , no mass Extremities: no cyanosis, no clubbing, no edema Microbiology Date/Time Source Procedure Growth Status 03/05/19 12:30 Body Fluid Gram Stain - Final Resulted 03/05/19 12:30 Body Fluid Body Fluid Culture - Preliminary NO GROWTH Resulted Laboratory Tests 03/06/19 05:00: White Blood Count 18.2H, Red Blood Count 2.85L, Hemoglobin 8.9L, Hematocrit 27.5L, Mean Corpuscular Volume 97, Mean Corpuscular Hemoglobin 31.3H, Mean Corpuscular Hemoglobin Concent 32.4, Red Cell Distribution Width 16.0H, Platelet Count 174, Mean Platelet Volume 6.5, Neutrophils (%) (Auto) , Lymphocytes (%) (Auto) , Monocytes (%) (Auto) , Eosinophils (%) (Auto) , Basophils (%) (Auto) , Differential Total Cells Counted 100, Neutrophils % ( Manual) 74, Lymphocytes % (Manual) 7L, Monocytes % (Manual) 11H, Eosinophils % ( Manual) 4H, Basophils % (Manual) 1, Band Neutrophils 3, Platelet Estimate Adequate, Platelet Morphology Normal, Anisocytosis 1+, Target Cells 2+, Rainier Cells 1+, Sodium Level 137, Potassium Level 3.8, Chloride Level 106, Carbon Dioxide Level 24, Anion Gap 7, Blood Urea Nitrogen 23H, Creatinine 1.8H, Estimat Glomerular Filtration Rate 47.8, Glucose Level 119H, Uric Acid 4.0, Calcium Level 7.6L, Phosphorus Level 3.2, Magnesium Level 1.4L, Total Bilirubin 7.2H, Direct Bilirubin 5.9H, Aspartate Amino Transf (AST/SGOT) 82H, Alanine Aminotransferase (ALT/SGPT) 37, Alkaline Phosphatase 184H, C-Reactive Protein, Quantitative 3.8H, Total Protein 5.7L, Albumin 1.5L, Globulin 4.2, Albumin/ Globulin Ratio 0.4L, Random Vancomycin Level 7.9 Current Medications Medications (Trade) Dose Ordered Sig/Tonny Route PRN Reason Start Time Stop Time Status Last Admin Dose Admin Cefepime HCl 2 gm/ Dextrose 110 ml @ 220 mls/hr Q24H IV 03/03/19 09:00 03/09/19 08:59 03/06/19 08:13 Chlorhexidine Gluconate (Stephanie-Hex 2%) 1 applic DAILY@1999 TOPIC 03/04/19 20:00 04/03/19 19:59 03/05/19 20:37 Dextrose (Dextrose 50%) 25 ml Q30M PRN IV Hypoglycemia 03/02/19 17:45 03/16/19 16:14 Dextrose (Dextrose 50%) 50 ml Q30M PRN IV Hypoglycemia 03/02/19 17:45 03/16/19 16:14 Heparin Sodium/ Sodium Chloride (Heparin 1000 units/500ml Premix) 1,000 unit ONCE PRN IV picc line placement 03/05/19 09:15 03/07/19 09:14 Lactobacillus Acidophilus (Culturelle) 1 tab EVERY 12 HOURS ORAL 03/02/19 21:00 03/26/19 17:59 03/06/19 08:13 Lactulose (Cephulac) 10 gm THREE TIMES A DAY ORAL 03/02/19 18:00 04/01/19 12:59 03/06/19 08:13 Lansoprazole (Prevacid) 30 mg EVERY 12 HOURS ORAL 03/02/19 21:00 03/26/19 17:59 03/06/19 08:13 Levetiracetam (Keppra) 500 mg Q12HR ORAL 03/03/19 21:00 04/02/19 20:59 03/06/19 08:12 Lidocaine HCl (Xylocaine 1% 30ml) 30 ml ONCE PRN INJ picc line placement 03/05/19 09:15 03/07/19 09:14 Magnesium Sulfate 100 ml @ 100 mls/hr Q1H IVPB 03/06/19 08:30 03/06/19 12:29 03/06/19 08:54 Metronidazole (Flagyl) 500 mg Q8HR ORAL 03/03/19 22:00 03/10/19 21:59 03/06/19 06:07 Micafungin Sodium 100 mg/Sodium Chloride 110 ml @ 110 mls/hr Q24H IVPB 03/03/19 10:30 03/10/19 10:29 03/05/19 15:50 Ondansetron HCl (Zofran) 4 mg Q6H PRN IVP Nausea & Vomiting 03/02/19 18:30 03/16/19 18:29 Rifaximin (Xifaxan) 550 mg EVERY 12 HOURS ORAL 03/02/19 21:00 03/09/19 20:59 03/06/19 08:13 Tamsulosin HCl (Flomax) 0.8 mg BEDTIME ORAL 03/05/19 21:30 04/04/19 21:29 03/05/19 21:38 Thiamine HCl (Vitamin B1) 100 mg DAILY NG 03/03/19 09:00 03/27/19 08:59 03/06/19 08:13 Vancomycin HCl (Vanco rx to dose) 1 ea DAILY PRN MISC Per rx protocol 03/03/19 09:00 03/17/19 12:59 Han Harris MD Mar 06, 2019 08:58
--- NOTE | 2019-03-06 09:42 | Hematology/Onc Progress Note ---
Assessment/Plan Assessment/Plan # Bicytopenia with anemia likely due to Gi bleed -- stool occult blood +, requires further eval with gi, also with etoh withdrawal, also can be related to meds/abx, Hida shows Limited hepatic uptake and excretion, probably due to hepatocellular disease. Note that previous imaging studies suggest the presence of cirrhotic changes. --> anemia panel has been reviewed and results are acd --> peripheral smear reviewed and not noted to have blasts --> wbc remains elevated --> continue on folate 1mg po daily (LOW FOLATE) --> Flow cytometry shows no evidence of b-lymphoproliferative disorder --> Hep panel negative # Anemia of chronic disease, per anemia panel --> hgb trend 8-->7-->8-->9-->8.6-->7.7-->7.9-->8.3-->7.9->8.5-->9-->10-->9.9--> 7.7 --> may require gi eval when more stable with scope (EGD) --> transfuse if hb <7 --> cont folic acid and thiamine # Leukocytosis due to Septic shock and severe Lactic acidosis on Levophed and broad-spectrum IV antibiotics. --> per ID care, continue abx --> pressor as needed --> flagyl, cefepime, carmen, vanc --> wbc trend: 34.9 -->28k-->35k-->17k # Sinus tachycardia up to 170s. No evidence of acute mi --> This is likely due to sepsis and anemia, alcohol withdrawal --> Echo Nl EF 60% # Troponin leak, type 2 --> per cards # Respiratory failure on the vent. Failed weaning --> sbt trial per pulm, now extubated --> 02/27 the bronchoscope was advanced into both mainstem bronchi and subsegmental bronchi. There was increased secretions bilaterally, mucopurulent including mucus plugging of the right upper lobe, which was therapeutically aspirated. BAL specimen was sent. # Transaminitis with elev bilis --> as per gi with ast/alt high --> monitor for resol of sepsis # ETOH withdrawal --> recommend etoh cessation # Seizures with noncompliance Greatly appreciate consultation. Subjective Constitutional: Denies: no symptoms, chills, fever, malaise, weakness, other HEENT: Denies: no symptoms, eye pain, blurred vision, tearing, double vision, ear pain, ear discharge, nose pain, nose congestion, throat pain, throat swelling, mouth pain, mouth swelling, other Cardiovascular: Denies: no symptoms, chest pain, edema, irregular heart rate, lightheadedness, palpitations, syncope, other Respiratory: Denies: no symptoms, cough, shortness of breath, SOB with excertion, SOB at rest, sputum, wheezing, other Genitourinary: Denies: no symptoms, burning, discharge, frequency, flank pain, hematuria, incontinence, pain, urgency, other Neurologic/Psychiatric: Denies: no symptoms, anxiety, depressed, emotional problems, headache, numbness, paresthesia, pre-existing deficit, seizure, tingling, tremors, weakness, other Endocrine: Denies: no symptoms, excessive sweating, flushing, intolerance to cold, intolerance to heat, increased hunger, increased thirst, increased urine, unexplained weight gain, unexplained weight loss, other Allergies: Coded Allergies: No Known Allergies (Unverified , 02/10/15) Subjective 02/20: intubated, counts are better, on vent, sbt in process, no f/c, mag low 02/21: endoscopy on hold at this time, bloody stool, plt better, on abx 02/22: no events reported, remains intubated, no bleeding, plt better, k is low, repleted\ 02/23: remains in icu, letargic, flow cytometry showed no evidence of b- lymphoproliferative disorder, c-diif negative, labs reviewed, remains on levo 02/24: in icu, on vent, wbc at 32, id made aware. 02/25: icu, weaning off of vent, labs reviewed, continues on abx 02/26: no fc, no changes reported, wbc high, ongoing hida scan 02/27: no events, bronch to be done today, results pending 02/28: no f/c, restraints++, ogt was inserted 03/01: s/p extubation, self-extubated, otherwise on abx, off pressors 03/02: no events too report, labs have been reviewed, off abx, remains agitated 03/03 no fevers or chills, no changes, breathing better, less altered 03/05: no events, no bleeding, hgb 7.7, on RA only, sating well 03/06: hgb is low, otherwise without event, slightly improved, as per gi transaminitis, bilis are better Objective Objective Current Medications Medications (Trade) Dose Ordered Sig/Tonny Route PRN Reason Start Time Stop Time Status Last Admin Dose Admin Cefepime HCl 2 gm/ Dextrose 110 ml @ 220 mls/hr Q24H IV 03/03/19 09:00 03/09/19 08:59 03/06/19 08:13 Chlorhexidine Gluconate (Stephanie-Hex 2%) 1 applic DAILY@2000 TOPIC 03/04/19 20:00 04/03/19 19:59 03/05/19 20:37 Dextrose (Dextrose 50%) 25 ml Q30M PRN IV Hypoglycemia 03/02/19 17:45 03/16/19 16:14 Dextrose (Dextrose 50%) 50 ml Q30M PRN IV Hypoglycemia 03/02/19 17:45 03/16/19 16:14 Heparin Sodium/ Sodium Chloride (Heparin 1000 units/500ml Premix) 1,000 unit ONCE PRN IV picc line placement 03/05/19 09:15 03/07/19 09:14 Lactobacillus Acidophilus (Culturelle) 1 tab EVERY 12 HOURS ORAL 03/02/19 21:00 03/26/19 17:59 03/06/19 08:13 Lactulose (Cephulac) 10 gm THREE TIMES A DAY ORAL 03/02/19 18:00 04/01/19 12:59 03/06/19 08:13 Lansoprazole (Prevacid) 30 mg EVERY 12 HOURS ORAL 03/02/19 21:00 03/26/19 17:59 03/06/19 08:13 Levetiracetam (Keppra) 500 mg Q12HR ORAL 03/03/19 21:00 04/02/19 20:59 03/06/19 08:12 Lidocaine HCl (Xylocaine 1% 30ml) 30 ml ONCE PRN INJ picc line placement 03/05/19 09:15 03/07/19 09:14 Magnesium Sulfate 100 ml @ 100 mls/hr Q1H IVPB 03/06/19 08:30 03/06/19 12:29 03/06/19 08:54 Metronidazole (Flagyl) 500 mg Q8HR ORAL 03/03/19 22:00 03/10/19 21:59 03/06/19 06:07 Micafungin Sodium 100 mg/Sodium Chloride 110 ml @ 110 mls/hr Q24H IVPB 03/03/19 10:30 03/10/19 10:29 03/05/19 15:50 Ondansetron HCl (Zofran) 4 mg Q6H PRN IVP Nausea & Vomiting 03/02/19 18:30 03/16/19 18:29 Rifaximin (Xifaxan) 550 mg EVERY 12 HOURS ORAL 03/02/19 21:00 03/09/19 20:59 03/06/19 08:13 Tamsulosin HCl (Flomax) 0.8 mg BEDTIME ORAL 03/05/19 21:30 04/04/19 21:29 03/05/19 21:38 Thiamine HCl (Vitamin B1) 100 mg DAILY ORAL 03/07/19 09:00 03/27/19 08:59 Vancomycin HCl (Vanco rx to dose) 1 ea DAILY PRN MISC Per rx protocol 03/03/19 09:00 03/17/19 12:59 Last 24 Hour Vital Signs Date Time Temp Pulse Resp B/P (MAP) Pulse Ox O2 Delivery O2 Flow Rate FiO2 03/06/19 04:00 97.2 92 17 112/69 (83) 97 03/06/19 04:00 88 03/06/19 01:45 94 Room Air 21 03/06/19 00:00 98.4 83 18 110/75 (87) 97 03/06/19 00:00 83 03/05/19 21:00 Room Air Room Air 03/05/19 20:00 97.9 81 18 109/74 (86) 97 03/05/19 20:00 95 03/05/19 16:00 92 03/05/19 16:00 98.6 86 20 119/77 (91) 97 03/05/19 12:00 83 03/05/19 12:00 96.7 85 18 118/81 (93) 98 03/05/19 09:00 Room Air Room Air 03/05/19 08:00 88 03/05/19 08:00 96.9 90 18 117/87 (97) 95 03/05/19 04:00 88 03/05/19 04:00 97.5 87 20 110/77 (88) 96 03/05/19 00:00 81 03/05/19 00:00 97.5 85 20 115/8 (43) 97 03/04/19 21:00 Room Air Room Air 03/04/19 20:00 97.8 89 22 124/100 (108) 99 03/04/19 20:00 88 03/04/19 19:05 96 Room Air 21 03/04/19 16:00 97.2 88 21 113/80 (91) 98 03/04/19 16:00 86 03/04/19 12:00 89 03/04/19 12:00 97.0 95 22 112/75 (87) 96 Intake and Output 03/05/19 03/06/19 19:00 07:00 Intake Total 120 ml Balance 120 ml Intake Oral 120 ml # Voids 6 # Bowel Movements 5 Labs Test 03/04/19 14:10 03/05/19 07:03 03/06/19 05:00 Random Vancomycin Level 12.9 ug/mL 7.9 ug/mL White Blood Count 25.4 K/UL (4.8-10.8) 18.2 K/UL (4.8-10.8) Red Blood Count 2.47 M/UL (4.70-6.10) 2.85 M/UL (4.70-6.10) Hemoglobin 7.7 G/DL (14.2-18.0) 8.9 G/DL (14.2-18.0) Hematocrit 24.0 % (42.0-52.0) 27.5 % (42.0-52.0) Mean Corpuscular Volume 97 FL (80-99) 97 FL (80-99) Mean Corpuscular Hemoglobin 31.0 PG (27.0-31.0) 31.3 PG (27.0-31.0) Mean Corpuscular Hemoglobin Concent 32.0 G/DL (32.0-36.0) 32.4 G/DL (32.0-36.0) Red Cell Distribution Width 15.9 % (11.6-14.8) 16.0 % (11.6-14.8) Platelet Count 309 K/UL (150-450) 174 K/UL (150-450) Mean Platelet Volume 6.1 FL (6.5-10.1) 6.5 FL (6.5-10.1) Neutrophils (%) (Auto) % (45.0-75.0) % (45.0-75.0) Lymphocytes (%) (Auto) % (20.0-45.0) % (20.0-45.0) Monocytes (%) (Auto) % (1.0-10.0) % (1.0-10.0) Eosinophils (%) (Auto) % (0.0-3.0) % (0.0-3.0) Basophils (%) (Auto) % (0.0-2.0) % (0.0-2.0) Differential Total Cells Counted 100 100 Neutrophils % (Manual) 75 % (45-75) 74 % (45-75) Lymphocytes % (Manual) 10 % (20-45) 7 % (20-45) Monocytes % (Manual) 10 % (1-10) 11 % (1-10) Eosinophils % (Manual) 4 % (0-3) 4 % (0-3) Basophils % (Manual) 1 % (0-2) 1 % (0-2) Band Neutrophils 0 % (0-8) 3 % (0-8) Platelet Estimate Adequate Adequate Platelet Morphology Normal Normal Hypochromasia 3+ Spherocytes 1+ Prothrombin Time 17.1 SEC (9.30-11.50) Prothromb Time International Ratio 1.6 (0.9-1.1) Activated Partial Thromboplast Time 37 SEC (23-33) Sodium Level 140 MMOL/L (136-145) 137 MMOL/L (136-145) Potassium Level 4.2 MMOL/L (3.5-5.1) 3.8 MMOL/L (3.5-5.1) Chloride Level 109 MMOL/L (98-107) 106 MMOL/L (98-107) Carbon Dioxide Level 21 MMOL/L (21-32) 24 MMOL/L (21-32) Anion Gap 10 mmol/L (5-15) 7 mmol/L (5-15) Blood Urea Nitrogen 25 mg/dL (7-18) 23 mg/dL (7-18) Creatinine 1.9 MG/DL (0.55-1.30) 1.8 MG/DL (0.55-1.30) Estimat Glomerular Filtration Rate 44.8 mL/min (>60) 47.8 mL/min (>60) Glucose Level 113 MG/DL (74-106) 119 MG/DL (74-106) Calcium Level 8.2 MG/DL (8.5-10.1) 7.6 MG/DL (8.5-10.1) Total Bilirubin 8.2 MG/DL (0.2-1.0) 7.2 MG/DL (0.2-1.0) Direct Bilirubin 6.0 MG/DL (0.0-0.3) 5.9 MG/DL (0.0-0.3) Aspartate Amino Transf (AST/SGOT) 103 U/L (15-37) 82 U/L (15-37) Alanine Aminotransferase (ALT/SGPT) 43 U/L (12-78) 37 U/L (12-78) Alkaline Phosphatase 235 U/L (46-116) 184 U/L (46-116) Total Protein 7.3 G/DL (6.4-8.2) 5.7 G/DL (6.4-8.2) Albumin 1.4 G/DL (3.4-5.0) 1.5 G/DL (3.4-5.0) Globulin 5.9 g/dL 4.2 g/dL Albumin/Globulin Ratio 0.2 (1.0-2.7) 0.4 (1.0-2.7) Anisocytosis 1+ Target Cells 2+ [place] Cells 1+ Uric Acid 4.0 MG/DL (2.6-7.2) Phosphorus Level 3.2 MG/DL (2.5-4.9) Magnesium Level 1.4 MG/DL (1.8-2.4) C-Reactive Protein, Quantitative 3.8 mg/dL (0.00-0.90) Micro Microbiology Date/Time Source Procedure Growth Status 03/05/19 12:30 Body Fluid Gram Stain - Final Resulted 03/05/19 12:30 Body Fluid Body Fluid Culture - Preliminary NO GROWTH Resulted Height (Feet): 5 Height (Inches): 5.00 Weight (Pounds): 165 Objective Gen: NAD HEENT: atraumatic, other - OGT Lungs: clear, ++RA sating 95% Heart: HR/BP unstable Abdomen: soft, non-tender, active bowel sounds Extremities: no cce, L femoral cath+, bilateral wrist restraints are off Robert Johnston MD Mar 06, 2019 09:42
--- NOTE | 2019-03-06 10:00 | GI Progress Note ---
Assessment/Plan Problems: (1) Coffee ground emesis ICD Codes: K92.0 - Hematemesis SNOMED: 53681306 (2) Episode of confusion ICD Codes: R41.0 - Disorientation, unspecified SNOMED: 98940377 (3) Gastrointestinal bleed ICD Codes: K92.2 - Gastrointestinal hemorrhage, unspecified SNOMED: 34157500 (4) Abnormal LFTs ICD Codes: R94.5 - Abnormal results of liver function studies SNOMED: 288823637 (5) Diarrhea ICD Codes: R19.7 - Diarrhea, unspecified SNOMED: 12912198 (6) Electrolyte and fluid disorder ICD Codes: E87.8 - Other disorders of electrolyte and fluid balance, not elsewhere classified SNOMED: 64009609 (7) Sepsis ICD Codes: A41.9 - Sepsis, unspecified organism SNOMED: 30489450 Status: progressing Status Narrative Discussed with Dr. Bloom. Assessment/Plan SUMMARY OF FINDINGS: 1. Medium-sized hiatal hernia. 2. Portal hypertensive gastropathy, status post biopsy. US reviewed >> liver disease/cirrhosis with ascites. Assessment - Resp failure - diarrhea - UGIB - abnormal LFT, negative hepatitis serologies, s/p U/S x 2 (no biliary dilation) , downtrending - ? cirrhosis and sepsis/hypoperfusion - h/o EtOH, possible early cirrhosis RECOMMENDATIONS: Follow up path. Check HSV IgM Check CMV Quant PCR Check EBV IGM No evidence of any active GI bleeding at this time. consider colonoscopy if needed. low dose lactulose + xifaxan will consider paracentesis OB stool r/o GI bleed - positive prn transfusions follow labs The patient was seen and examined at bedside and all new and available data was reviewed in the patients chart. I agree with the above findings, impression and plan. (Patient seen earlier today. Signature stamp does not reflect patient encounter time.). - Jones Bloom MD Subjective Subjective limited Objective Last 24 Hour Vital Signs Date Time Temp Pulse Resp B/P (MAP) Pulse Ox O2 Delivery O2 Flow Rate FiO2 03/06/19 04:00 97.2 92 17 112/69 (83) 97 03/06/19 04:00 88 03/06/19 01:45 94 Room Air 21 03/06/19 00:00 98.4 83 18 110/75 (87) 97 03/06/19 00:00 83 03/05/19 21:00 Room Air Room Air 03/05/19 20:00 97.9 81 18 109/74 (86) 97 03/05/19 20:00 95 03/05/19 16:00 92 03/05/19 16:00 98.6 86 20 119/77 (91) 97 03/05/19 12:00 83 03/05/19 12:00 96.7 85 18 118/81 (93) 98 Intake and Output 03/05/19 03/06/19 19:00 07:00 Intake Total 120 ml Balance 120 ml Intake Oral 120 ml # Voids 6 # Bowel Movements 5 Laboratory Tests Test 03/06/19 05:00 White Blood Count 18.2 K/UL (4.8-10.8) H Red Blood Count 2.85 M/UL (4.70-6.10) L Hemoglobin 8.9 G/DL (14.2-18.0) L Hematocrit 27.5 % (42.0-52.0) L Mean Corpuscular Volume 97 FL (80-99) Mean Corpuscular Hemoglobin 31.3 PG (27.0-31.0) H Mean Corpuscular Hemoglobin Concent 32.4 G/DL (32.0-36.0) Red Cell Distribution Width 16.0 % (11.6-14.8) H Platelet Count 174 K/UL (150-450) Mean Platelet Volume 6.5 FL (6.5-10.1) Neutrophils (%) (Auto) % (45.0-75.0) Lymphocytes (%) (Auto) % (20.0-45.0) Monocytes (%) (Auto) % (1.0-10.0) Eosinophils (%) (Auto) % (0.0-3.0) Basophils (%) (Auto) % (0.0-2.0) Differential Total Cells Counted 100 Neutrophils % (Manual) 74 % (45-75) Lymphocytes % (Manual) 7 % (20-45) L Monocytes % (Manual) 11 % (1-10) H Eosinophils % (Manual) 4 % (0-3) H Basophils % (Manual) 1 % (0-2) Band Neutrophils 3 % (0-8) Platelet Estimate Adequate Platelet Morphology Normal Anisocytosis 1+ Target Cells 2+ [place] Cells 1+ Sodium Level 137 MMOL/L (136-145) Potassium Level 3.8 MMOL/L (3.5-5.1) Chloride Level 106 MMOL/L (98-107) Carbon Dioxide Level 24 MMOL/L (21-32) Anion Gap 7 mmol/L (5-15) Blood Urea Nitrogen 23 mg/dL (7-18) H Creatinine 1.8 MG/DL (0.55-1.30) H Estimat Glomerular Filtration Rate 47.8 mL/min (>60) Glucose Level 119 MG/DL (74-106) H Uric Acid 4.0 MG/DL (2.6-7.2) Calcium Level 7.6 MG/DL (8.5-10.1) L Phosphorus Level 3.2 MG/DL (2.5-4.9) Magnesium Level 1.4 MG/DL (1.8-2.4) L Total Bilirubin 7.2 MG/DL (0.2-1.0) H Direct Bilirubin 5.9 MG/DL (0.0-0.3) H Aspartate Amino Transf (AST/SGOT) 82 U/L (15-37) H Alanine Aminotransferase (ALT/SGPT) 37 U/L (12-78) Alkaline Phosphatase 184 U/L (46-116) H C-Reactive Protein, Quantitative 3.8 mg/dL (0.00-0.90) H Total Protein 5.7 G/DL (6.4-8.2) L Albumin 1.5 G/DL (3.4-5.0) L Globulin 4.2 g/dL Albumin/Globulin Ratio 0.4 (1.0-2.7) L Random Vancomycin Level 7.9 ug/mL Microbiology Date/Time Source Procedure Growth Status 03/05/19 12:30 Body Fluid Gram Stain - Final Resulted 03/05/19 12:30 Body Fluid Body Fluid Culture - Preliminary NO GROWTH Resulted Height (Feet): 5 Height (Inches): 5.00 Weight (Pounds): 165 General Appearance: WD/WN, no apparent distress, alert Cardiovascular: normal rate Respiratory/Chest: normal breath sounds, no respiratory distress Abdominal Exam: normal bowel sounds, non tender, soft Extremities: non-tender Juno Naranjo [employer] Mar 06, 2019 10:00
[2019-03-06] MEDS: Micafungin 100 MG in NS 110 ML IVPB SCH (11:33)
--- NOTE | 2019-03-06 11:59 | Surgery Progress Note ---
Surgery Progress Note Subjective Procedure Performed \ Symptoms: improved, tolerating diet, passing flatus Additional Comments had paracentesis yesterday. abd exam improved today Objective Last 24 Hour Vital Signs Date Time Temp Pulse Resp B/P (MAP) Pulse Ox O2 Delivery O2 Flow Rate FiO2 03/06/19 09:00 Room Air Room Air 03/06/19 08:00 96.6 98 20 105/77 (86) 97 03/06/19 08:00 96 03/06/19 04:00 97.2 92 17 112/69 (83) 97 03/06/19 04:00 88 03/06/19 01:45 94 Room Air 21 03/06/19 00:00 98.4 83 18 110/75 (87) 97 03/06/19 00:00 83 03/05/19 21:00 Room Air Room Air 03/05/19 20:00 97.9 81 18 109/74 (86) 97 03/05/19 20:00 95 03/05/19 16:00 92 03/05/19 16:00 98.6 86 20 119/77 (91) 97 03/05/19 12:00 83 03/05/19 12:00 96.7 85 18 118/81 (93) 98 I&O Intake and Output 03/05/19 03/06/19 19:00 07:00 Intake Total 120 ml Balance 120 ml Intake Oral 120 ml # Voids 6 # Bowel Movements 5 Cardiovascular: RSR Respiratory: clear Abdomen: soft, present bowel sounds Extremities: no edema, no tenderness, no cyanosis Laboratory Tests Test 03/06/19 05:00 White Blood Count 18.2 K/UL (4.8-10.8) H Red Blood Count 2.85 M/UL (4.70-6.10) L Hemoglobin 8.9 G/DL (14.2-18.0) L Hematocrit 27.5 % (42.0-52.0) L Mean Corpuscular Volume 97 FL (80-99) Mean Corpuscular Hemoglobin 31.3 PG (27.0-31.0) H Mean Corpuscular Hemoglobin Concent 32.4 G/DL (32.0-36.0) Red Cell Distribution Width 16.0 % (11.6-14.8) H Platelet Count 174 K/UL (150-450) Mean Platelet Volume 6.5 FL (6.5-10.1) Neutrophils (%) (Auto) % (45.0-75.0) Lymphocytes (%) (Auto) % (20.0-45.0) Monocytes (%) (Auto) % (1.0-10.0) Eosinophils (%) (Auto) % (0.0-3.0) Basophils (%) (Auto) % (0.0-2.0) Differential Total Cells Counted 100 Neutrophils % (Manual) 74 % (45-75) Lymphocytes % (Manual) 7 % (20-45) L Monocytes % (Manual) 11 % (1-10) H Eosinophils % (Manual) 4 % (0-3) H Basophils % (Manual) 1 % (0-2) Band Neutrophils 3 % (0-8) Platelet Estimate Adequate Platelet Morphology Normal Anisocytosis 1+ Target Cells 2+ [place] Cells 1+ Sodium Level 137 MMOL/L (136-145) Potassium Level 3.8 MMOL/L (3.5-5.1) Chloride Level 106 MMOL/L (98-107) Carbon Dioxide Level 24 MMOL/L (21-32) Anion Gap 7 mmol/L (5-15) Blood Urea Nitrogen 23 mg/dL (7-18) H Creatinine 1.8 MG/DL (0.55-1.30) H Estimat Glomerular Filtration Rate 47.8 mL/min (>60) Glucose Level 119 MG/DL (74-106) H Uric Acid 4.0 MG/DL (2.6-7.2) Calcium Level 7.6 MG/DL (8.5-10.1) L Phosphorus Level 3.2 MG/DL (2.5-4.9) Magnesium Level 1.4 MG/DL (1.8-2.4) L Total Bilirubin 7.2 MG/DL (0.2-1.0) H Direct Bilirubin 5.9 MG/DL (0.0-0.3) H Aspartate Amino Transf (AST/SGOT) 82 U/L (15-37) H Alanine Aminotransferase (ALT/SGPT) 37 U/L (12-78) Alkaline Phosphatase 184 U/L (46-116) H C-Reactive Protein, Quantitative 3.8 mg/dL (0.00-0.90) H Total Protein 5.7 G/DL (6.4-8.2) L Albumin 1.5 G/DL (3.4-5.0) L Globulin 4.2 g/dL Albumin/Globulin Ratio 0.4 (1.0-2.7) L Random Vancomycin Level 7.9 ug/mL Plan Problems: (1) Non-compliance Assessment & Plan: Noncompliance with seizure medication with known history of seizures Now had seizure Appreciate neurology input (2) Electrolyte and fluid disorder Assessment & Plan: Likely due to EtOH use and dehydration IV hydration Trend labs (3) Fever (4) Oral thrush (5) Diarrhea (6) Aspiration pneumonia (7) Seizure disorder (8) Tachycardia (9) Altered mental status (10) Alcohol withdrawal seizure (11) Alcohol withdrawal seizure (12) Episode of confusion (13) Coffee ground emesis (14) Gastrointestinal bleed Assessment & Plan: Patient on admission identified to have maroon-colored stool and coffee-ground emesis. Labs noted mild anemia with H&H trending down. No acute active bleed noted but given patient's history high risk for potential ulcers. PPI Appreciate GI input considerations for EGD once stable No evidence of pulmonary embolus, aortic dissection or aneurysm. Posterior basilar consolidation suspicious for pneumonia. Correlate clinically. Trace bilateral pleural effusions. Possible enterocolitis as described above. Please correlate clinically. Mild ascites Fatty liver Cholelithiasis with wall thickening. Cholecystitis not excluded. Small right inguinal hernia containing fat Extensive breathing motion artifact limiting evaluation. We will follow with recommendations thank you (15) Sinus tachycardia (16) Septic shock (17) Sepsis Assessment & Plan: Patient septic leukocytosis improved today lactic acidosis resolved anemia renal function declining electrolyte disturbance US noted picc out transition to oral meds extubated doing well US noted again. liver decompensated HIDA noted and likely cirrhosis delgado AM labs reordered We will discuss with GI about paracentesis. Patient's abdominal and becoming more distended and fluid-filled with ascites US paracentesis ordered (18) Lactic acid acidosis (19) STEFANI (acute kidney injury) (20) Abnormal LFTs (21) High anion gap metabolic acidosis Juanpablo Marcus Mar 06, 2019 11:59
[2019-03-06 12:00] VITALS: BP 96/63
--- NOTE | 2019-03-06 12:20 | NUR ---
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 96.6 HR 98 RR 20 B/P 105/77 RA 98% WBC 18.2 BUN 23 CR. 1.8 MG 1.4 IS: MAGNESIUM SULFATE IV X 1 CEFEPIME IV FLAGYL PO KEPPRA PO TELE STATUS
--- NOTE | 2019-03-06 13:09 | Infectious Diseases Prog Note ---
Assessment/Plan Assessment/Plan ASSESSMENT AND PLAN: 1. sepsis, shock, e.coli bacteremia/uti, gram neg sepsis, pna/HCAP, ct noted, sirs, fevers, fungemia risk, s/p paracentesis, ? sbp, elevated lft's - cefepime, flagyl, vancomycin and micafungin - day # 9 combination (missed one day abx but now has new picc line) - surveillance blood cultures negative, monitor labs and chest x-ray - off vent , off pressors, clinically improving - monitor lft's - improved - new picc line (03/05/19) 2. History of seizures. Workup per Neurology. 3. Acute kidney injury, likely secondary to sepsis. 4. The patient is anemic. 5. Severe sepsis with leukocytosis. 6. History of ETOH abuse. 7. No known allergies. 8. Family history is noncontributory. 9. MAR was noted. 10. Case was discussed with RN. 11. Social history is positive for ETOH abuse. 12. Poor prognosis. Subjective Constitutional: Reports: fatigue; Denies: fever HEENT: Denies: congestion Respiratory: Denies: shortness of breath Cardiovascular: Denies: chest pain Gastrointestinal/Abdominal: Reports: diarrhea; Denies: nausea, vomiting Genitourinary: Reports: other - no delgado Neurologic: Denies: headache Psychiatric: Denies: depression Skin: Denies: rash Hematologic: Denies: bleeding Musculoskeletal: Denies: pain Allergies: Coded Allergies: No Known Allergies (Unverified , 02/10/15) Objective Vital Signs Last 24 Hour Vital Signs Date Time Temp Pulse Resp B/P (MAP) Pulse Ox O2 Delivery O2 Flow Rate FiO2 03/06/19 12:00 96.8 90 18 96/63 (74) 99 03/06/19 09:00 Room Air Room Air 03/06/19 08:00 96.6 98 20 105/77 (86) 97 03/06/19 08:00 96 03/06/19 04:00 97.2 92 17 112/69 (83) 97 03/06/19 04:00 88 03/06/19 01:45 94 Room Air 21 03/06/19 00:00 98.4 83 18 110/75 (87) 97 03/06/19 00:00 83 03/05/19 21:00 Room Air Room Air 03/05/19 20:00 97.9 81 18 109/74 (86) 97 03/05/19 20:00 95 03/05/19 16:00 92 03/05/19 16:00 98.6 86 20 119/77 (91) 97 Height (Feet): 5 Height (Inches): 5.00 Weight (Pounds): 165 General Appearance: no acute distress HEENT: normocephalic, atraumatic, EOMI, supple, no JVD, other - possible icterus Respiratory/Chest: crackles/rales, rhonchi - bilaterally Cardiovascular: normal rate, regular rhythm, no gallop/murmur, no JVD Abdomen: normal bowel sounds, soft, non tender, no organomegaly, non distended Genitourinary: other - no delgado Extremities: no cyanosis Skin: no rash Neurologic/Psychiatric: java mobile developer II-XII grossly normal, alert, oriented x 3, responsive Lymphatic: no neck adenopathy Musculoskeletal: no effusion Objective CT abdomen and pelvis: IMPRESSION: No evidence of pulmonary embolus, aortic dissection or aneurysm. Posterior basilar consolidation suspicious for pneumonia. Correlate clinically. Trace bilateral pleural effusions. Possible enterocolitis as described above. Please correlate clinically. Mild ascites Fatty liver Cholelithiasis with wall thickening. Cholecystitis not excluded. Small right inguinal hernia containing fat Extensive breathing motion artifact limiting evaluation. Chest x-ray - 03/05/19 - Comparison: 02/27/2019 Findings: Interim removal of endotracheal and nasogastric tubes. There is some atelectasis at both lung bases. There is likely some pleural fluid and possibly some consolidation at the left lung base. The heart size is normal the aorta is tortuous. There is a calcification at the inferior aspect of the left shoulder joint. Impression: Bilateral basilar atelectasis. Possible left-sided pleural fluid and consolidation Interim endotracheal and nasogastric extubation Microbiology Date/Time Source Procedure Growth Status 02/25/19 09:15 Blood Blood Culture - Final NO GROWTH AFTER 5 DAYS Complete 03/05/19 12:30 Body Fluid Gram Stain - Final Resulted 03/05/19 12:30 Body Fluid Body Fluid Culture - Preliminary NO GROWTH Resulted 02/27/19 15:00 Sputum Expectorated Pneumocystis jiroveci Smear (DFA) - Final Complete 02/22/19 23:55 Stool Clostridium difficile Toxin Assay - Final Complete 02/25/19 09:05 Indwelling Cath Urine Culture - Final NO GROWTH AFTER 48 HOURS Complete Microbiology Date/Time Source Procedure Growth Status 03/05/19 12:30 Body Fluid Gram Stain - Final Resulted 03/05/19 12:30 Body Fluid Body Fluid Culture - Preliminary NO GROWTH Resulted Laboratory Tests Test 03/06/19 05:00 White Blood Count 18.2 K/UL (4.8-10.8) H Red Blood Count 2.85 M/UL (4.70-6.10) L Hemoglobin 8.9 G/DL (14.2-18.0) L Hematocrit 27.5 % (42.0-52.0) L Mean Corpuscular Volume 97 FL (80-99) Mean Corpuscular Hemoglobin 31.3 PG (27.0-31.0) H Mean Corpuscular Hemoglobin Concent 32.4 G/DL (32.0-36.0) Red Cell Distribution Width 16.0 % (11.6-14.8) H Platelet Count 174 K/UL (150-450) Mean Platelet Volume 6.5 FL (6.5-10.1) Neutrophils (%) (Auto) % (45.0-75.0) Lymphocytes (%) (Auto) % (20.0-45.0) Monocytes (%) (Auto) % (1.0-10.0) Eosinophils (%) (Auto) % (0.0-3.0) Basophils (%) (Auto) % (0.0-2.0) Differential Total Cells Counted 100 Neutrophils % (Manual) 74 % (45-75) Lymphocytes % (Manual) 7 % (20-45) L Monocytes % (Manual) 11 % (1-10) H Eosinophils % (Manual) 4 % (0-3) H Basophils % (Manual) 1 % (0-2) Band Neutrophils 3 % (0-8) Platelet Estimate Adequate Platelet Morphology Normal Anisocytosis 1+ Target Cells 2+ [place] Cells 1+ Sodium Level 137 MMOL/L (136-145) Potassium Level 3.8 MMOL/L (3.5-5.1) Chloride Level 106 MMOL/L (98-107) Carbon Dioxide Level 24 MMOL/L (21-32) Anion Gap 7 mmol/L (5-15) Blood Urea Nitrogen 23 mg/dL (7-18) H Creatinine 1.8 MG/DL (0.55-1.30) H Estimat Glomerular Filtration Rate 47.8 mL/min (>60) Glucose Level 119 MG/DL (74-106) H Uric Acid 4.0 MG/DL (2.6-7.2) Calcium Level 7.6 MG/DL (8.5-10.1) L Phosphorus Level 3.2 MG/DL (2.5-4.9) Magnesium Level 1.4 MG/DL (1.8-2.4) L Total Bilirubin 7.2 MG/DL (0.2-1.0) H Direct Bilirubin 5.9 MG/DL (0.0-0.3) H Aspartate Amino Transf (AST/SGOT) 82 U/L (15-37) H Alanine Aminotransferase (ALT/SGPT) 37 U/L (12-78) Alkaline Phosphatase 184 U/L (46-116) H C-Reactive Protein, Quantitative 3.8 mg/dL (0.00-0.90) H Total Protein 5.7 G/DL (6.4-8.2) L Albumin 1.5 G/DL (3.4-5.0) L Globulin 4.2 g/dL Albumin/Globulin Ratio 0.4 (1.0-2.7) L Random Vancomycin Level 7.9 ug/mL Current Medications Medications (Trade) Dose Ordered Sig/Tonny Route PRN Reason Start Time Stop Time Status Last Admin Dose Admin Cefepime HCl 2 gm/ Dextrose 110 ml @ 220 mls/hr Q24H IV 03/03/19 09:00 03/09/19 08:59 03/06/19 08:13 Chlorhexidine Gluconate (Stephanie-Hex 2%) 1 applic DAILY@2000 TOPIC 03/04/19 20:00 04/03/19 19:59 03/05/19 20:37 Dextrose (Dextrose 50%) 25 ml Q30M PRN IV Hypoglycemia 03/02/19 17:45 03/16/19 16:14 Dextrose (Dextrose 50%) 50 ml Q30M PRN IV Hypoglycemia 03/02/19 17:45 03/16/19 16:14 Lactobacillus Acidophilus (Culturelle) 1 tab EVERY 12 HOURS ORAL 03/02/19 21:00 03/26/19 17:59 03/06/19 08:13 Lactulose (Cephulac) 10 gm THREE TIMES A DAY ORAL 03/02/19 18:00 04/01/19 12:59 03/06/19 12:37 Lansoprazole (Prevacid) 30 mg EVERY 12 HOURS ORAL 03/02/19 21:00 03/26/19 17:59 03/06/19 08:13 Levetiracetam (Keppra) 500 mg Q12HR ORAL 03/03/19 21:00 04/02/19 20:59 03/06/19 08:12 Lidocaine HCl (Xylocaine 1% 30ml) 30 ml ONCE PRN INJ picc line placement 03/05/19 09:15 03/07/19 09:14 Metronidazole (Flagyl) 500 mg Q8HR ORAL 03/03/19 22:00 03/10/19 21:59 03/06/19 06:07 Micafungin Sodium 100 mg/Sodium Chloride 110 ml @ 110 mls/hr Q24H IVPB 03/03/19 10:30 03/10/19 10:29 03/06/19 11:33 Ondansetron HCl (Zofran) 4 mg Q6H PRN IVP Nausea & Vomiting 03/02/19 18:30 03/16/19 18:29 Rifaximin (Xifaxan) 550 mg EVERY 12 HOURS ORAL 03/02/19 21:00 03/09/19 20:59 03/06/19 08:13 Tamsulosin HCl (Flomax) 0.8 mg BEDTIME ORAL 03/05/19 21:30 04/04/19 21:29 03/05/19 21:38 Thiamine HCl (Vitamin B1) 100 mg DAILY ORAL 03/07/19 09:00 03/27/19 08:59 Vancomycin HCl (Vanco rx to dose) 1 ea DAILY PRN MISC Per rx protocol 03/03/19 09:00 03/17/19 12:59 Barry Plummer MD Mar 06, 2019 13:09
--- NOTE | 2019-03-06 14:55 | NUR ---
*-* INSURANCE *-* UPDATED CLINICAL AD REVIEWS HAVE BEEN FAXED TO: VANESSA COREA: ANTWON P- [phone] F-[phone]..............REVIEW/CLINICAL
[2019-03-06] MEDS ORDERED: Tubing IV Secondary IV ONE (15:02)
[2019-03-06 16:00] VITALS: BP 111/76
--- NOTE | 2019-03-06 16:17 | Nephrology Progress Note ---
Assessment/Plan Problem List: (1) STEFANI (acute kidney injury) (2) Septic shock (3) Electrolyte and fluid disorder (4) Abnormal LFTs Assessment: fatty liver (5) Hyperbilirubinemia Assessment - STEFANI (acute kidney injury) - Septic shock - Lactic acid acidosis - Abnormal LFTs - Gastrointestinal bleed - Alcohol withdrawal seizure Plan mag IV trial Albumin and one liter D5w K and Mag and Phos supplement as needed discussed with RN PRN Albumin bolus for low bp Midodrine post extubation care start feeding Hemodynamic support Pressors / Fluids as needed Aim to correct the electrolyte and acid base imbalance monitor renal parameters gastric support switch dilantin to keppra as LFTs rising per orders Subjective ROS Limited/Unobtainable: No Constitutional: Reports: malaise Objective Objective Last 24 Hour Vital Signs Date Time Temp Pulse Resp B/P (MAP) Pulse Ox O2 Delivery O2 Flow Rate FiO2 03/06/19 16:00 96.6 93 20 111/76 (88) 97 03/06/19 12:00 88 03/06/19 12:00 96.8 90 18 96/63 (74) 99 03/06/19 09:00 Room Air Room Air 03/06/19 08:00 96.6 98 20 105/77 (86) 97 03/06/19 08:00 96 03/06/19 04:00 97.2 92 17 112/69 (83) 97 03/06/19 04:00 88 03/06/19 01:45 94 Room Air 21 03/06/19 00:00 98.4 83 18 110/75 (87) 97 03/06/19 00:00 83 03/05/19 21:00 Room Air Room Air 03/05/19 20:00 97.9 81 18 109/74 (86) 97 03/05/19 20:00 95 Intake and Output 03/05/19 03/06/19 19:00 07:00 Intake Total 120 ml Balance 120 ml Intake Oral 120 ml # Voids 6 # Bowel Movements 5 Laboratory Tests 03/06/19 05:00: White Blood Count 18.2H, Red Blood Count 2.85L, Hemoglobin 8.9L, Hematocrit 27.5L, Mean Corpuscular Volume 97, Mean Corpuscular Hemoglobin 31.3H, Mean Corpuscular Hemoglobin Concent 32.4, Red Cell Distribution Width 16.0H, Platelet Count 174, Mean Platelet Volume 6.5, Neutrophils (%) (Auto) , Lymphocytes (%) (Auto) , Monocytes (%) (Auto) , Eosinophils (%) (Auto) , Basophils (%) (Auto) , Differential Total Cells Counted 100, Neutrophils % ( Manual) 74, Lymphocytes % (Manual) 7L, Monocytes % (Manual) 11H, Eosinophils % ( Manual) 4H, Basophils % (Manual) 1, Band Neutrophils 3, Platelet Estimate Adequate, Platelet Morphology Normal, Anisocytosis 1+, Target Cells 2+, [place] Cells 1+, Sodium Level 137, Potassium Level 3.8, Chloride Level 106, Carbon Dioxide Level 24, Anion Gap 7, Blood Urea Nitrogen 23H, Creatinine 1.8H, Estimat Glomerular Filtration Rate 47.8, Glucose Level 119H, Uric Acid 4.0, Calcium Level 7.6L, Phosphorus Level 3.2, Magnesium Level 1.4L, Total Bilirubin 7.2H, Direct Bilirubin 5.9H, Aspartate Amino Transf (AST/SGOT) 82H, Alanine Aminotransferase (ALT/SGPT) 37, Alkaline Phosphatase 184H, C-Reactive Protein, Quantitative 3.8H, Total Protein 5.7L, Albumin 1.5L, Globulin 4.2, Albumin/ Globulin Ratio 0.4L, Random Vancomycin Level 7.9 Height (Feet): 5 Height (Inches): 5.00 Weight (Pounds): 165 General Appearance: no apparent distress Objective no change Scotty Bailon MD Mar 06, 2019 16:17
--- NOTE | 2019-03-06 17:17 | Cardiac Electrophysiology PN ---
Assessment/Plan Assessment/Plan 1. Sinus tachycardia up to 170s. No myocardial infarction . Due to sepsis and anemia and alcohol withdrawal. EF 60%. In SR in 90s 2. S/P Septic shock and E Coli bacteremia, on broad-spectrum IV antibiotics. 3. Troponin leak. Type 2. No CP 4. S/P Respiratory failure. Self extubated S/P Bronchoscopy and removal of mucus plug 5. ETOH withdrawal 6. Seizures with noncompliance. 7. Upper gi bleed. S/P EGD 8. Hematuria, resolved 9. Coffee ground emesis. EGD showed a. Medium-sized hiatal hernia. b. Portal hypertensive gastropathy, status post biopsy. 10. Liver cirrhosis with ascites.Billirubin down [address] Goldberg S/P Paracentesis DW RN Subjective Subjective Alert off restraints. In SR. Had 4 liter paracentesis on 03/04/19 Objective Last 24 Hour Vital Signs Date Time Temp Pulse Resp B/P (MAP) Pulse Ox O2 Delivery O2 Flow Rate FiO2 03/06/19 16:00 96.6 93 20 111/76 (88) 97 03/06/19 16:00 88 03/06/19 12:00 88 03/06/19 12:00 96.8 90 18 96/63 (74) 99 03/06/19 09:00 Room Air Room Air 03/06/19 08:00 96.6 98 20 105/77 (86) 97 03/06/19 08:00 96 03/06/19 04:00 97.2 92 17 112/69 (83) 97 03/06/19 04:00 88 03/06/19 01:45 94 Room Air 21 03/06/19 00:00 98.4 83 18 110/75 (87) 97 03/06/19 00:00 83 03/05/19 21:00 Room Air Room Air 03/05/19 20:00 97.9 81 18 109/74 (86) 97 03/05/19 20:00 95 Intake and Output 03/05/19 03/06/19 18:59 06:59 Intake Total 140 ml 120 ml Balance 140 ml 120 ml Intake Oral 140 ml 120 ml # Voids 6 # Bowel Movements 5 Laboratory Tests Test 03/06/19 05:00 White Blood Count 18.2 K/UL (4.8-10.8) H Red Blood Count 2.85 M/UL (4.70-6.10) L Hemoglobin 8.9 G/DL (14.2-18.0) L Hematocrit 27.5 % (42.0-52.0) L Mean Corpuscular Volume 97 FL (80-99) Mean Corpuscular Hemoglobin 31.3 PG (27.0-31.0) H Mean Corpuscular Hemoglobin Concent 32.4 G/DL (32.0-36.0) Red Cell Distribution Width 16.0 % (11.6-14.8) H Platelet Count 174 K/UL (150-450) Mean Platelet Volume 6.5 FL (6.5-10.1) Neutrophils (%) (Auto) % (45.0-75.0) Lymphocytes (%) (Auto) % (20.0-45.0) Monocytes (%) (Auto) % (1.0-10.0) Eosinophils (%) (Auto) % (0.0-3.0) Basophils (%) (Auto) % (0.0-2.0) Differential Total Cells Counted 100 Neutrophils % (Manual) 74 % (45-75) Lymphocytes % (Manual) 7 % (20-45) L Monocytes % (Manual) 11 % (1-10) H Eosinophils % (Manual) 4 % (0-3) H Basophils % (Manual) 1 % (0-2) Band Neutrophils 3 % (0-8) Platelet Estimate Adequate Platelet Morphology Normal Anisocytosis 1+ Target Cells 2+ [place] Cells 1+ Sodium Level 137 MMOL/L (136-145) Potassium Level 3.8 MMOL/L (3.5-5.1) Chloride Level 106 MMOL/L (98-107) Carbon Dioxide Level 24 MMOL/L (21-32) Anion Gap 7 mmol/L (5-15) Blood Urea Nitrogen 23 mg/dL (7-18) H Creatinine 1.8 MG/DL (0.55-1.30) H Estimat Glomerular Filtration Rate 47.8 mL/min (>60) Glucose Level 119 MG/DL (74-106) H Uric Acid 4.0 MG/DL (2.6-7.2) Calcium Level 7.6 MG/DL (8.5-10.1) L Phosphorus Level 3.2 MG/DL (2.5-4.9) Magnesium Level 1.4 MG/DL (1.8-2.4) L Total Bilirubin 7.2 MG/DL (0.2-1.0) H Direct Bilirubin 5.9 MG/DL (0.0-0.3) H Aspartate Amino Transf (AST/SGOT) 82 U/L (15-37) H Alanine Aminotransferase (ALT/SGPT) 37 U/L (12-78) Alkaline Phosphatase 184 U/L (46-116) H C-Reactive Protein, Quantitative 3.8 mg/dL (0.00-0.90) H Total Protein 5.7 G/DL (6.4-8.2) L Albumin 1.5 G/DL (3.4-5.0) L Globulin 4.2 g/dL Albumin/Globulin Ratio 0.4 (1.0-2.7) L Random Vancomycin Level 7.9 ug/mL Microbiology Date/Time Source Procedure Growth Status 03/05/19 12:30 Body Fluid Gram Stain - Final Resulted 03/05/19 12:30 Body Fluid Body Fluid Culture - Preliminary NO GROWTH Resulted Objective HEAD AND NECK: No JV. Icteric sclera LUNGS: Decreased breath sounds. CARDIOVASCULAR: Regular S1 and S2 with no gallop or murmur. ABDOMEN: Soft. EXTREMITIES: No pitting edema. Fidencio Trevino MD Mar 06, 2019 17:17
--- NOTE | 2019-03-06 18:36 | General Progress Note ---
Assessment/Plan Status: progressing Assessment/Plan: 54 year old male with pMH of seizure disorder and etoh abuse admitted for seizures 2/2 non-compliance #severe septic shock likely 2/2 UTI - imprved #Gram negative bacteremia, now resolved by surveillance follow up blood culture #Acute respiratory failure requiting intubation s/p extubation 03/01 -abx per ID - Re culture ordered due to severe increase in the WBC from 15 to 26 to 29 thousand of unclear etiology - Hematology consult noted to be due to sepsis. - CBC serial. - CT 02/18 with atelectasis primarily - Diuresis -ID consult appreciated - Immunoglobulin and hepatitis panel negative. -abg prn - Reviewed CT chest/abd/pel -PICC placed # Transaminitis - improved #Ascites - paracenthesis 03/05 - f/u HIDA : non obstructive, findings c/w intracellular damage - ctm - appreciate GI and Sx input - us shows nodularity and chronic disease - hep panel negative - f/u GI # Hemoptysis - resolved - s/p bronch 02/27 with Therapeutic aspiration and mucus plug from the endotracheal tube in right upper lobe., - monitor ett output - monitor hgb #Lactic acidosis - resolved -2/2 severe shock/ poss abd source/ seizures - 2 D Echo on 02/16 with EF 65%. Discussed with cardiology and etiology likely sepsis and not cardiogenic -CTM -Fluid boluses completed. -Cont mIVF #Coagulopathy # Thrombocytopenia - 40,000 stable Monitor. No active bleeding toay. - Hematology consult with Dr. Johnston appreciated. Flow cytometry pending. -likely 2/2 hepatic injury 2/2 shock - Consumption coagulopathy. - Consider platelet transfusion if LESS than 30K with urine blood tinge color. #Coffee ground emesis likely in setting of GI bleed -H/H trending down. Monitor -GI consult appreciated -s/p EGD, no significant findings, f/u biopsies #Seizures 2/2 noncomplaint with AED -s/p phenytoin load in ED -Cont Phenytoin -Neurology consult appreciated -pending EEG - no seizures noted in last 24 hours -Ativan PRN for seizures -NPO -Seizure precautions #Hypokalemia - Replete as needed #hypophosphatemia - Repleted. #Hypomagnesemia -repleted -CTM # Urethral hemorrhage and clot evacuation - stable - appreciate urology consult - If recurrent hemorrhage will address. - Consider PRBC and Platelets if Hb < 8 or Plt < 30 K # Urinary retention PVR > 300 cc WILKINSON replaced 02/[address] ( in case of repeat hemorrhage ) - WILKINSON REMOVED 03/05 - VOIDING WELL D/w RN Code: Full Subjective Date patient seen: Mar 06, 2019 ROS Limited/Unobtainable: No Allergies: Coded Allergies: No Known Allergies (Unverified , 02/10/15) Subjective No acute overnight events, urinating well per nursing staff, leukocytosis improved, has no complaints. Objective Last 24 Hour Vital Signs Date Time Temp Pulse Resp B/P (MAP) Pulse Ox O2 Delivery O2 Flow Rate FiO2 03/06/19 16:00 96.6 93 20 111/76 (88) 97 03/06/19 16:00 88 03/06/19 12:00 88 03/06/19 12:00 96.8 90 18 96/63 (74) 99 03/06/19 09:00 Room Air Room Air 03/06/19 08:00 96.6 98 20 105/77 (86) 97 03/06/19 08:00 96 03/06/19 07:00 96 Room Air 21 03/06/19 04:00 97.2 92 17 112/69 (83) 97 03/06/19 04:00 88 03/06/19 01:45 94 Room Air 21 03/06/19 00:00 98.4 83 18 110/75 (87) 97 03/06/19 00:00 83 03/05/19 21:00 Room Air Room Air 03/05/19 20:00 97.9 81 18 109/74 (86) 97 03/05/19 20:00 95 Intake and Output 03/05/19 03/06/19 18:59 06:59 Intake Total 140 ml 120 ml Balance 140 ml 120 ml Intake Oral 140 ml 120 ml # Voids 6 # Bowel Movements 5 Laboratory Tests 03/06/19 05:00: White Blood Count 18.2H, Red Blood Count 2.85L, Hemoglobin 8.9L, Hematocrit 27.5L, Mean Corpuscular Volume 97, Mean Corpuscular Hemoglobin 31.3H, Mean Corpuscular Hemoglobin Concent 32.4, Red Cell Distribution Width 16.0H, Platelet Count 174, Mean Platelet Volume 6.5, Neutrophils (%) (Auto) , Lymphocytes (%) (Auto) , Monocytes (%) (Auto) , Eosinophils (%) (Auto) , Basophils (%) (Auto) , Differential Total Cells Counted 100, Neutrophils % ( Manual) 74, Lymphocytes % (Manual) 7L, Monocytes % (Manual) 11H, Eosinophils % ( Manual) 4H, Basophils % (Manual) 1, Band Neutrophils 3, Platelet Estimate Adequate, Platelet Morphology Normal, Anisocytosis 1+, Target Cells 2+, [place] Cells 1+, Sodium Level 137, Potassium Level 3.8, Chloride Level 106, Carbon Dioxide Level 24, Anion Gap 7, Blood Urea Nitrogen 23H, Creatinine 1.8H, Estimat Glomerular Filtration Rate 47.8, Glucose Level 119H, Uric Acid 4.0, Calcium Level 7.6L, Phosphorus Level 3.2, Magnesium Level 1.4L, Total Bilirubin 7.2H, Direct Bilirubin 5.9H, Aspartate Amino Transf (AST/SGOT) 82H, Alanine Aminotransferase (ALT/SGPT) 37, Alkaline Phosphatase 184H, C-Reactive Protein, Quantitative 3.8H, Total Protein 5.7L, Albumin 1.5L, Globulin 4.2, Albumin/ Globulin Ratio 0.4L, Random Vancomycin Level 7.9 Height (Feet): 5 Height (Inches): 5.00 Weight (Pounds): 165 Objective General appearance: extubated, calm Head: Normocephalic, without obvious abnormality, atraumatic Eyes: conjunctivae/corneas clear. PERRL, EOM's intact. Fundi benign Throat: Lips, mucosa, and tongue normal. Teeth and gums normal Neck: supple, symmetrical, trachea midline, no adenopathy, thyroid: not enlarged, symmetric, no tenderness/mass/nodules, no carotid bruit and no JVD Lungs: b/l air entry, no wheezing noted Heart: regular rate and rhythm, S1, S2 normal, no murmur, click, rub or gallop Abdomen: soft, non-tender. Bowel sounds normal. No masses, no organomegaly, distended Extremities: extremities normal, atraumatic, no cyanosis or edema Pulses: 2+ and symmetric Skin: Skin color, texture, turgor normal. No rashes or lesions Neurologic: Grossly normal Lyn Cuevas MD Mar 06, 2019 18:36
--- NOTE | 2019-03-06 19:20 | NUR ---
NURSE NOTES: Received pt and report from ESHA Howe. Observed pt resting in bed with both eyes open and watching television. Pt is A/Ox3. school lunch monitor is in placed, IV site intact, asymptomatic and patent. Bed is in the lowest position and locked. Call light within reach. No signs and symptoms of acute distress noted at this time. Will continue plan of care.
--- NOTE | 2019-03-06 19:30 | NUR ---
HAND-OFF: Report given to ESHA Bashir. Patient's in stable condition, comfortable, no s/s of distress or SOB. Plan of care endorsed. .
[2019-03-06 20:00] VITALS: BP 110/71
[2019-03-06] MEDS: Dyna-Hex 2% Top Sol 2oz TOPIC SCH (20:56)
[2019-03-06] MEDS: Tamsulosin 0.4mg cap ORAL SCH (20:57)
--- NOTE | 2019-03-06 21:03 | Neurology Progress Note ---
Interim History Interim History ROS Limited/Unobtainable: No Interim History no seizures, infection improving Review of Systems All Systems: reviewed and negative except above Objective Physical Exam Last Vital Signs Date Time Temp Pulse Resp B/P (MAP) Pulse Ox O2 Delivery O2 Flow Rate FiO2 03/06/19 16:00 96.6 93 20 111/76 (88) 97 03/06/19 09:00 Room Air Room Air 03/06/19 07:00 21 03/02/19 13:59 2.0 Laboratory Tests Test 03/06/19 05:00 White Blood Count 18.2 K/UL (4.8-10.8) H Red Blood Count 2.85 M/UL (4.70-6.10) L Hemoglobin 8.9 G/DL (14.2-18.0) L Hematocrit 27.5 % (42.0-52.0) L Mean Corpuscular Volume 97 FL (80-99) Mean Corpuscular Hemoglobin 31.3 PG (27.0-31.0) H Mean Corpuscular Hemoglobin Concent 32.4 G/DL (32.0-36.0) Red Cell Distribution Width 16.0 % (11.6-14.8) H Platelet Count 174 K/UL (150-450) Mean Platelet Volume 6.5 FL (6.5-10.1) Neutrophils (%) (Auto) % (45.0-75.0) Lymphocytes (%) (Auto) % (20.0-45.0) Monocytes (%) (Auto) % (1.0-10.0) Eosinophils (%) (Auto) % (0.0-3.0) Basophils (%) (Auto) % (0.0-2.0) Differential Total Cells Counted 100 Neutrophils % (Manual) 74 % (45-75) Lymphocytes % (Manual) 7 % (20-45) L Monocytes % (Manual) 11 % (1-10) H Eosinophils % (Manual) 4 % (0-3) H Basophils % (Manual) 1 % (0-2) Band Neutrophils 3 % (0-8) Platelet Estimate Adequate Platelet Morphology Normal Anisocytosis 1+ Target Cells 2+ Hickman Cells 1+ Sodium Level 137 MMOL/L (136-145) Potassium Level 3.8 MMOL/L (3.5-5.1) Chloride Level 106 MMOL/L (98-107) Carbon Dioxide Level 24 MMOL/L (21-32) Anion Gap 7 mmol/L (5-15) Blood Urea Nitrogen 23 mg/dL (7-18) H Creatinine 1.8 MG/DL (0.55-1.30) H Estimat Glomerular Filtration Rate 47.8 mL/min (>60) Glucose Level 119 MG/DL (74-106) H Uric Acid 4.0 MG/DL (2.6-7.2) Calcium Level 7.6 MG/DL (8.5-10.1) L Phosphorus Level 3.2 MG/DL (2.5-4.9) Magnesium Level 1.4 MG/DL (1.8-2.4) L Total Bilirubin 7.2 MG/DL (0.2-1.0) H Direct Bilirubin 5.9 MG/DL (0.0-0.3) H Aspartate Amino Transf (AST/SGOT) 82 U/L (15-37) H Alanine Aminotransferase (ALT/SGPT) 37 U/L (12-78) Alkaline Phosphatase 184 U/L (46-116) H C-Reactive Protein, Quantitative 3.8 mg/dL (0.00-0.90) H Total Protein 5.7 G/DL (6.4-8.2) L Albumin 1.5 G/DL (3.4-5.0) L Globulin 4.2 g/dL Albumin/Globulin Ratio 0.4 (1.0-2.7) L Random Vancomycin Level 7.9 ug/mL Head: normocophalic Neck: no rigidity EENT: benign Neurologic Exam Mental Status: awake Speech: normal speech Cranial Nerves III, IV, : PERRLA Motor System: no involuntary movement Objective no nuchal rigidity Impression/Recommendations Problems: (1) Episode of confusion (2) Tachycardia (3) Fever (4) Diarrhea (5) Altered mental status (6) Alcohol withdrawal seizure (7) Oral thrush (8) Electrolyte and fluid disorder (9) Aspiration pneumonia (10) Alcohol withdrawal seizure (11) Non-compliance (12) Seizure disorder Status: progressing Diagnostic Impression seizure due to non compliance septic shock with bacteremia - improved broad sectrum atb dilantin 100 mg tid Myron Estrella MD Mar 06, 2019 21:03
[2019-03-07] VITALS: BP 112/76
[2019-03-07 04:00] VITALS: BP 113/76
[2019-03-07 05:44] LABS: HEMATOCRIT 29.6 % (42.0-52.0); HEMOGLOBIN 9.4 G/DL (14.2-18.0); MEAN CORPUSCULAR VOLUME 97 FL (80-99); PLATELET COUNT 160 K/UL (150-450); RED BLOOD COUNT 3.07 M/UL (4.70-6.10); RED CELL DISTRIBUTION WIDTH 15.7 % (11.6-14.8); WHITE BLOOD COUNT 20.7 K/UL (4.8-10.8)
[2019-03-07] MEDS: metroNIDAZOLE 500mg tab ORAL SCH ×3 (06:05→21:01)
[2019-03-07 06:15] LABS: ALANINE AMINOTRANSFERASE 36 U/L (12-78); ALBUMIN 1.4 G/DL (3.4-5.0); ALBUMIN/GLOBULIN RATIO 0.3 (1.0-2.7); ALKALINE PHOSPHATASE 188 U/L (46-116); ANION GAP 8 mmol/L (5-15); ASPARTATE AMINO TRANSFERASE 81 U/L (15-37); BILIRUBIN,TOTAL 6.8 MG/DL (0.2-1.0); BLOOD UREA NITROGEN 21 mg/dL (7-18); CALCIUM 7.8 MG/DL (8.5-10.1); CARBON DIOXIDE 23 MMOL/L (21-32); CHLORIDE 103 MMOL/L (98-107); CREATININE 1.8 MG/DL (0.55-1.30); POTASSIUM 3.9 MMOL/L (3.5-5.1); SODIUM 133 MMOL/L (136-145)
[2019-03-07 06:20] LABS: BILIRUBIN,DIRECT 5.7 MG/DL (0.0-0.3)
--- NOTE | 2019-03-07 07:53 | NUR ---
NURSE NOTES: Contacted Dr. Matta regarding blood discharged from pt's penis. Dr. Matta said it is due to his [place]. No orders at this time.
--- NOTE | 2019-03-07 07:55 | NUR ---
HAND-OFF: Report given to ESHA [place].
--- NOTE | 2019-03-07 07:56 | NUR ---
NURSE NOTES: Received pt and report from Krysten RN. in bed resting. Patient is A/Ox2. library monitor is in placed, IV site intact, and patent. Bed is in the lowest position and locked, bed alarm on, call light is within reach. Patient is on seizure precaution. No seizure activity noted. Denies any pain at this time. No signs/symptoms of acute distress noted at this time. Will continue with the plan of care.
[2019-03-07 08:00] VITALS: BP 122/79
--- NOTE | 2019-03-07 08:39 | Urology Progress Note ---
Assessment/Plan Status: progressing Assessment/Plan: 1. Gross hematuria history, improved. 2. Urinary retention. 3. Probable neurogenic bladder. 4. Urinary tract infection history. 5. Sepsis history. 6. STEFANI. monitor clinically delgado out and voiding abx as ordered monitor renal flomax 0.8 mg Subjective Allergies: Coded Allergies: No Known Allergies (Unverified , 02/10/15) Subjective all noted, more alert, delgado out, voiding, slight bloody urethral discharge reported, but urine otherwise reported clear Objective Last 24 Hour Vital Signs Date Time Temp Pulse Resp B/P (MAP) Pulse Ox O2 Delivery O2 Flow Rate FiO2 03/07/19 04:00 90 03/07/19 04:00 97.6 90 19 113/76 (88) 96 03/07/19 00:00 77 03/07/19 00:00 97.8 77 17 112/76 (88) 97 03/06/19 21:38 97 Room Air 21 03/06/19 21:00 Room Air Room Air 03/06/19 20:00 97.0 93 18 110/71 (84) 98 03/06/19 20:00 93 03/06/19 16:00 96.6 93 20 111/76 (88) 97 03/06/19 16:00 88 03/06/19 12:00 88 03/06/19 12:00 96.8 90 18 96/63 (74) 99 03/06/19 09:00 Room Air Room Air Intake and Output 03/06/19 03/07/19 19:00 07:00 Intake Total 1030 ml Output Total 500 ml Balance 530 ml Intake Oral 810 ml IV Total 220 ml Output Urine Total 500 ml # Voids 3 3 # Bowel Movements 4 4 Microbiology Date/Time Source Procedure Growth Status 02/25/19 09:15 Blood Blood Culture - Final NO GROWTH AFTER 5 DAYS Complete 03/05/19 12:30 Body Fluid Gram Stain - Final Resulted 03/05/19 12:30 Body Fluid Body Fluid Culture - Preliminary NO GROWTH AFTER 48 HOURS Resulted 02/27/19 15:00 Sputum Expectorated Pneumocystis jiroveci Smear (DFA) - Final Complete 02/22/19 23:55 Stool Clostridium difficile Toxin Assay - Final Complete 02/25/19 09:05 Indwelling Cath Urine Culture - Final NO GROWTH AFTER 48 HOURS Complete Current Medications Medications (Trade) Dose Ordered Sig/Tonny Route PRN Reason Start Time Stop Time Status Last Admin Dose Admin Cefepime HCl 2 gm/ Dextrose 110 ml @ 220 mls/hr Q24H IV 03/03/19 09:00 03/09/19 08:59 03/06/19 08:13 Chlorhexidine Gluconate (Stephanie-Hex 2%) 1 applic DAILY@2000 TOPIC 03/04/19 20:00 04/03/19 19:59 03/06/19 20:56 Dextrose (Dextrose 50%) 25 ml Q30M PRN IV Hypoglycemia 03/02/19 17:45 03/16/19 16:14 Dextrose (Dextrose 50%) 50 ml Q30M PRN IV Hypoglycemia 03/02/19 17:45 03/16/19 16:14 Lactobacillus Acidophilus (Culturelle) 1 tab EVERY 12 HOURS ORAL 03/02/19 21:00 03/26/19 17:59 03/06/19 20:56 Lactulose (Cephulac) 10 gm THREE TIMES A DAY ORAL 03/02/19 18:00 04/01/19 12:59 03/06/19 12:37 Lansoprazole (Prevacid) 30 mg EVERY 12 HOURS ORAL 03/02/19 21:00 03/26/19 17:59 03/06/19 20:56 Levetiracetam (Keppra) 500 mg Q12HR ORAL 03/03/19 21:00 04/02/19 20:59 03/06/19 20:56 Lidocaine HCl (Xylocaine 1% 30ml) 30 ml ONCE PRN INJ picc line placement 03/05/19 09:15 03/07/19 09:14 Metronidazole (Flagyl) 500 mg Q8HR ORAL 03/03/19 22:00 03/10/19 21:59 03/07/19 06:05 Micafungin Sodium 100 mg/Sodium Chloride 110 ml @ 110 mls/hr Q24H IVPB 03/03/19 10:30 03/10/19 10:29 03/06/19 11:33 Ondansetron HCl (Zofran) 4 mg Q6H PRN IVP Nausea & Vomiting 03/02/19 18:30 03/16/19 18:29 Rifaximin (Xifaxan) 550 mg EVERY 12 HOURS ORAL 03/02/19 21:00 03/09/19 20:59 03/06/19 20:56 Tamsulosin HCl (Flomax) 0.8 mg BEDTIME ORAL 03/05/19 21:30 04/04/19 21:29 03/06/19 20:57 Thiamine HCl (Vitamin B1) 100 mg DAILY ORAL 03/07/19 09:00 03/27/19 08:59 Vancomycin HCl (Vanco rx to dose) 1 ea DAILY PRN MISC Per rx protocol 03/03/19 09:00 03/17/19 12:59 Vancomycin HCl 1 gm/Dextrose 275 ml @ 183.708 mls/hr Q12HR IVPB 03/07/19 09:00 03/12/19 08:59 Laboratory Tests 03/07/19 05:30: White Blood Count 20.7H, Red Blood Count 3.07L, Hemoglobin 9.4L, Hematocrit 29.6L, Mean Corpuscular Volume 97, Mean Corpuscular Hemoglobin 30.8, Mean Corpuscular Hemoglobin Concent 31.9L, Red Cell Distribution Width 15.7H, Platelet Count 160, Mean Platelet Volume 6.9, Neutrophils (%) (Auto) , Lymphocytes (%) (Auto) , Monocytes (%) (Auto) , Eosinophils (%) (Auto) , Basophils (%) (Auto) , Differential Total Cells Counted 100, Neutrophils % ( Manual) 83H, Lymphocytes % (Manual) 4L, Monocytes % (Manual) 10, Eosinophils % ( Manual) 3, Basophils % (Manual) 0, Band Neutrophils 0, Platelet Estimate Adequate, Platelet Morphology Normal, Hypochromasia 2+, Anisocytosis 1+, Sodium Level 133L, Potassium Level 3.9, Chloride Level 103, Carbon Dioxide Level 23, Anion Gap 8, Blood Urea Nitrogen 21H, Creatinine 1.8H, Estimat Glomerular Filtration Rate 47.8, Glucose Level 132H, Calcium Level 7.8L, Total Bilirubin 6.8H, Direct Bilirubin 5.7H, Aspartate Amino Transf (AST/SGOT) 81H, Alanine Aminotransferase (ALT/SGPT) 36, Alkaline Phosphatase 188H, Total Protein 6.6, Albumin 1.4L, Globulin 5.2, Albumin/Globulin Ratio 0.3L, Random Vancomycin Level 16.4 Height (Feet): 5 Height (Inches): 5.00 Weight (Pounds): 268 Objective exam stable Bamshad,Jeremy Jaguar MD Mar 07, 2019 08:39
[2019-03-07] MEDS: Lactobacillus-GG tablet ORAL SCH ×2 (09:30→21:01)
[2019-03-07] MEDS: Lactulose 10gm/15ml UDC ORAL SCH ×3 (09:31→17:14)
[2019-03-07] MEDS: Thiamine 100mg tab ORAL SCH (09:31)
[2019-03-07] MEDS: Vancomycin 1gm/D5W 275ml IVPB SCH ×4 (09:32→21:00)
--- NOTE | 2019-03-07 09:50 | NUR ---
PT EVALUATION NOTE Patient seen for PT evaluation, see complete evaluation for details. Patient previously seen for PT evaluation on 02/15/19 however patient was transferred to ICU and PT was discontinued. Received new MD order for PT evaluation. Patient presents with generalized weakness and deconditioning. Patient requires mod/max assist to perform bed mobility tasks and min assist to maintain sitting at the EOB. Patient unable to perform transfers or ambulation at this time due to weakness. Patient able to follow simple commands. Patient will benefit from skilled inpatient PT intervention to address strength, balance and endurance for increased functional mobility and safety. Recommend discharge to SNF for further rehab to improve level of function once medically cleared by MD. Addendum: 03/07/19 at 1236 by DILCIA BHARDWAJ PT Amended: Links added.
--- NOTE | 2019-03-07 10:10 | GI Progress Note ---
Assessment/Plan Problems: (1) Coffee ground emesis ICD Codes: K92.0 - Hematemesis SNOMED: 29223818 (2) Episode of confusion ICD Codes: R41.0 - Disorientation, unspecified SNOMED: 71095414 (3) Gastrointestinal bleed ICD Codes: K92.2 - Gastrointestinal hemorrhage, unspecified SNOMED: 74349471 (4) Abnormal LFTs ICD Codes: R94.5 - Abnormal results of liver function studies SNOMED: 104732152 (5) Diarrhea ICD Codes: R19.7 - Diarrhea, unspecified SNOMED: 82136016 (6) Electrolyte and fluid disorder ICD Codes: E87.8 - Other disorders of electrolyte and fluid balance, not elsewhere classified SNOMED: 96289050 (7) Sepsis ICD Codes: A41.9 - Sepsis, unspecified organism SNOMED: 85310112 Status: unchanged Status Narrative Discussed with Dr. Bloom. Assessment/Plan SUMMARY OF FINDINGS: 1. Medium-sized hiatal hernia. 2. Portal hypertensive gastropathy, status post biopsy. US reviewed >> liver disease/cirrhosis with ascites s/p paracentesis. Assessment - Resp failure - diarrhea - UGIB - abnormal LFT, negative hepatitis serologies, s/p U/S x 2 (no biliary dilation) , downtrending - ? cirrhosis and sepsis/hypoperfusion - h/o EtOH, possible early cirrhosis EBV IGM elevation Hepatitis Panel negative OB stool r/o GI bleed - positive RECOMMENDATIONS: Follow up path. Check HSV IgM Check CMV Quant PCR No evidence of any active GI bleeding at this time. consider colonoscopy if needed. low dose lactulose + xifaxan PT evaluation prn transfusions follow labs The patient was seen and examined at bedside and all new and available data was reviewed in the patients chart. I agree with the above findings, impression and plan. (Patient seen earlier today. Signature stamp does not reflect patient encounter time.). - Jones Bloom MD Subjective Gastrointestinal/Abdominal: Reports: no symptoms Objective Last 24 Hour Vital Signs Date Time Temp Pulse Resp B/P (MAP) Pulse Ox O2 Delivery O2 Flow Rate FiO2 03/07/19 07:57 95 03/07/19 07:37 97 Room Air 21 03/07/19 04:00 90 03/07/19 04:00 97.6 90 19 113/76 (88) 96 03/07/19 00:00 77 03/07/19 00:00 97.8 77 17 112/76 (88) 97 03/06/19 21:38 97 Room Air 21 03/06/19 21:00 Room Air Room Air 03/06/19 20:00 97.0 93 18 110/71 (84) 98 03/06/19 20:00 93 03/06/19 16:00 96.6 93 20 111/76 (88) 97 03/06/19 16:00 88 03/06/19 12:00 88 03/06/19 12:00 96.8 90 18 96/63 (74) 99 Intake and Output 03/06/19 03/07/19 19:00 07:00 Intake Total 1030 ml Output Total 500 ml Balance 530 ml Intake Oral 810 ml IV Total 220 ml Output Urine Total 500 ml # Voids 3 3 # Bowel Movements 4 4 Laboratory Tests Test 03/07/19 05:30 White Blood Count 20.7 K/UL (4.8-10.8) H Red Blood Count 3.07 M/UL (4.70-6.10) L Hemoglobin 9.4 G/DL (14.2-18.0) L Hematocrit 29.6 % (42.0-52.0) L Mean Corpuscular Volume 97 FL (80-99) Mean Corpuscular Hemoglobin 30.8 PG (27.0-31.0) Mean Corpuscular Hemoglobin Concent 31.9 G/DL (32.0-36.0) L Red Cell Distribution Width 15.7 % (11.6-14.8) H Platelet Count 160 K/UL (150-450) Mean Platelet Volume 6.9 FL (6.5-10.1) Neutrophils (%) (Auto) % (45.0-75.0) Lymphocytes (%) (Auto) % (20.0-45.0) Monocytes (%) (Auto) % (1.0-10.0) Eosinophils (%) (Auto) % (0.0-3.0) Basophils (%) (Auto) % (0.0-2.0) Differential Total Cells Counted 100 Neutrophils % (Manual) 83 % (45-75) H Lymphocytes % (Manual) 4 % (20-45) L Monocytes % (Manual) 10 % (1-10) Eosinophils % (Manual) 3 % (0-3) Basophils % (Manual) 0 % (0-2) Band Neutrophils 0 % (0-8) Platelet Estimate Adequate Platelet Morphology Normal Hypochromasia 2+ Anisocytosis 1+ Sodium Level 133 MMOL/L (136-145) L Potassium Level 3.9 MMOL/L (3.5-5.1) Chloride Level 103 MMOL/L (98-107) Carbon Dioxide Level 23 MMOL/L (21-32) Anion Gap 8 mmol/L (5-15) Blood Urea Nitrogen 21 mg/dL (7-18) H Creatinine 1.8 MG/DL (0.55-1.30) H Estimat Glomerular Filtration Rate 47.8 mL/min (>60) Glucose Level 132 MG/DL (74-106) H Calcium Level 7.8 MG/DL (8.5-10.1) L Total Bilirubin 6.8 MG/DL (0.2-1.0) H Direct Bilirubin 5.7 MG/DL (0.0-0.3) H Aspartate Amino Transf (AST/SGOT) 81 U/L (15-37) H Alanine Aminotransferase (ALT/SGPT) 36 U/L (12-78) Alkaline Phosphatase 188 U/L (46-116) H Total Protein 6.6 G/DL (6.4-8.2) Albumin 1.4 G/DL (3.4-5.0) L Globulin 5.2 g/dL Albumin/Globulin Ratio 0.3 (1.0-2.7) L Random Vancomycin Level 16.4 ug/mL Height (Feet): 5 Height (Inches): 5.00 Weight (Pounds): 268 General Appearance: WD/WN, no apparent distress, alert Cardiovascular: normal rate Respiratory/Chest: normal breath sounds, no respiratory distress Abdominal Exam: normal bowel sounds, non tender, soft Extremities: normal range of motion, non-tender Juno Naranjo NP Mar 07, 2019 10:10
[2019-03-07] MEDS: Cefepime HCl 2 GM in D5W 110 ML IV SCH (10:17)
--- NOTE | 2019-03-07 10:50 | Nephrology Progress Note ---
Assessment/Plan Problem List: (1) STEFANI (acute kidney injury) (2) Septic shock (3) Electrolyte and fluid disorder (4) Abnormal LFTs Assessment: fatty liver (5) Hyperbilirubinemia Assessment - STEFANI (acute kidney injury) - Septic shock - Lactic acid acidosis - Abnormal LFTs - Gastrointestinal bleed - Alcohol withdrawal seizure Plan mag IV trial Albumin and one liter D5w K and Mag and Phos supplement as needed discussed with RN PRN Albumin bolus for low bp Midodrine post extubation care start feeding Hemodynamic support Pressors / Fluids as needed Aim to correct the electrolyte and acid base imbalance monitor renal parameters gastric support switch dilantin to keppra as LFTs rising per orders Subjective Constitutional: Reports: malaise Objective Objective Last 24 Hour Vital Signs Date Time Temp Pulse Resp B/P (MAP) Pulse Ox O2 Delivery O2 Flow Rate FiO2 03/07/19 07:57 95 03/07/19 07:37 97 Room Air 21 03/07/19 04:00 90 03/07/19 04:00 97.6 90 19 113/76 (88) 96 03/07/19 00:00 77 03/07/19 00:00 97.8 77 17 112/76 (88) 97 03/06/19 21:38 97 Room Air 21 03/06/19 21:00 Room Air Room Air 03/06/19 20:00 97.0 93 18 110/71 (84) 98 03/06/19 20:00 93 03/06/19 16:00 96.6 93 20 111/76 (88) 97 03/06/19 16:00 88 03/06/19 12:00 88 03/06/19 12:00 96.8 90 18 96/63 (74) 99 Intake and Output 03/06/19 03/07/19 19:00 07:00 Intake Total 1030 ml Output Total 500 ml Balance 530 ml Intake Oral 810 ml IV Total 220 ml Output Urine Total 500 ml # Voids 3 3 # Bowel Movements 4 4 Laboratory Tests 03/07/19 05:30: White Blood Count 20.7H, Red Blood Count 3.07L, Hemoglobin 9.4L, Hematocrit 29.6L, Mean Corpuscular Volume 97, Mean Corpuscular Hemoglobin 30.8, Mean Corpuscular Hemoglobin Concent 31.9L, Red Cell Distribution Width 15.7H, Platelet Count 160, Mean Platelet Volume 6.9, Neutrophils (%) (Auto) , Lymphocytes (%) (Auto) , Monocytes (%) (Auto) , Eosinophils (%) (Auto) , Basophils (%) (Auto) , Differential Total Cells Counted 100, Neutrophils % ( Manual) 83H, Lymphocytes % (Manual) 4L, Monocytes % (Manual) 10, Eosinophils % ( Manual) 3, Basophils % (Manual) 0, Band Neutrophils 0, Platelet Estimate Adequate, Platelet Morphology Normal, Hypochromasia 2+, Anisocytosis 1+, Sodium Level 133L, Potassium Level 3.9, Chloride Level 103, Carbon Dioxide Level 23, Anion Gap 8, Blood Urea Nitrogen 21H, Creatinine 1.8H, Estimat Glomerular Filtration Rate 47.8, Glucose Level 132H, Calcium Level 7.8L, Total Bilirubin 6.8H, Direct Bilirubin 5.7H, Aspartate Amino Transf (AST/SGOT) 81H, Alanine Aminotransferase (ALT/SGPT) 36, Alkaline Phosphatase 188H, Total Protein 6.6, Albumin 1.4L, Globulin 5.2, Albumin/Globulin Ratio 0.3L, Random Vancomycin Level 16.4 Height (Feet): 5 Height (Inches): 5.00 Weight (Pounds): 268 General Appearance: no apparent distress Objective no change Scotty Bailon MD Mar 07, 2019 10:50
[2019-03-07 12:00] VITALS: BP 109/71
--- NOTE | 2019-03-07 12:16 | NUR ---
[employer] SI: RECURRENT SEIZURES,LEUKOCYTOSIS T. 97.6 HR 90 RR 19 B/P 113/76 RA 98% WBC 20.7 NA 133 BUN 21 CR 1.5 AST 81 IS: VANCO IV MICAFUNGIN IV CEFEPIME IV FLAGYL PO KEPPRA PO THIAMINE PO TELE STATUS
[2019-03-07] MEDS: Micafungin 100 MG in NS 110 ML IVPB SCH (12:18)
--- NOTE | 2019-03-07 12:18 | Pulmonology Progress Note ---
Assessment/Plan Problems: (1) Hyperbilirubinemia (2) Gastrointestinal bleed (3) Alcohol withdrawal seizure (4) Seizure disorder (5) Electrolyte and fluid disorder Assessment/Plan Optimize pulmonary hygiene/mobilize as tolerated PRN O2 Monitor volumes and renal function Abx per ID F/U GI recs, monitor LFT's Monitor counts, transfuse as needed Monitor for EtOH w/drawal, PRN ativan Continue AEDs, monitor for Sz's, F/U neuro recs FC Respiratory status stable, will sign off and follow peripherally. Please call with any questions or change in condition. Subjective Allergies: Coded Allergies: No Known Allergies (Unverified , 02/10/15) Subjective AFVSS on RA TB better still jaundiced Has not been OOB feels weak No F/C/CP/SOB/N/V/D/C Objective Last 24 Hour Vital Signs Date Time Temp Pulse Resp B/P (MAP) Pulse Ox O2 Delivery O2 Flow Rate FiO2 03/07/19 07:57 95 03/07/19 07:37 97 Room Air 21 03/07/19 04:00 90 03/07/19 04:00 97.6 90 19 113/76 (88) 96 03/07/19 00:00 77 03/07/19 00:00 97.8 77 17 112/76 (88) 97 03/06/19 21:38 97 Room Air 21 03/06/19 21:00 Room Air Room Air 03/06/19 20:00 97.0 93 18 110/71 (84) 98 03/06/19 20:00 93 03/06/19 16:00 96.6 93 20 111/76 (88) 97 03/06/19 16:00 88 Intake and Output 03/06/19 03/07/19 19:00 07:00 Intake Total 1030 ml Output Total 500 ml Balance 530 ml Intake Oral 810 ml IV Total 220 ml Output Urine Total 500 ml # Voids 3 3 # Bowel Movements 4 4 General Appearance: no acute distress, cachetic HEENT: normocephalic, atraumatic, anicteric, mucous membranes moist, other - scleral icterus Respiratory/Chest: chest wall non-tender, lungs clear, normal breath sounds, no respiratory distress, no accessory muscle use Cardiovascular: normal peripheral pulses, normal rate, regular rhythm Abdomen: normal bowel sounds, soft, non tender, no organomegaly, non distended , no mass Extremities: no cyanosis, no clubbing, no edema Microbiology Date/Time Source Procedure Growth Status 03/05/19 12:30 Body Fluid Gram Stain - Final Resulted 03/05/19 12:30 Body Fluid Body Fluid Culture - Preliminary NO GROWTH AFTER 48 HOURS Resulted Laboratory Tests 03/07/19 05:30: White Blood Count 20.7H, Red Blood Count 3.07L, Hemoglobin 9.4L, Hematocrit 29.6L, Mean Corpuscular Volume 97, Mean Corpuscular Hemoglobin 30.8, Mean Corpuscular Hemoglobin Concent 31.9L, Red Cell Distribution Width 15.7H, Platelet Count 160, Mean Platelet Volume 6.9, Neutrophils (%) (Auto) , Lymphocytes (%) (Auto) , Monocytes (%) (Auto) , Eosinophils (%) (Auto) , Basophils (%) (Auto) , Differential Total Cells Counted 100, Neutrophils % ( Manual) 83H, Lymphocytes % (Manual) 4L, Monocytes % (Manual) 10, Eosinophils % ( Manual) 3, Basophils % (Manual) 0, Band Neutrophils 0, Platelet Estimate Adequate, Platelet Morphology Normal, Hypochromasia 2+, Anisocytosis 1+, Sodium Level 133L, Potassium Level 3.9, Chloride Level 103, Carbon Dioxide Level 23, Anion Gap 8, Blood Urea Nitrogen 21H, Creatinine 1.8H, Estimat Glomerular Filtration Rate 47.8, Glucose Level 132H, Calcium Level 7.8L, Total Bilirubin 6.8H, Direct Bilirubin 5.7H, Aspartate Amino Transf (AST/SGOT) 81H, Alanine Aminotransferase (ALT/SGPT) 36, Alkaline Phosphatase 188H, Total Protein 6.6, Albumin 1.4L, Globulin 5.2, Albumin/Globulin Ratio 0.3L, Random Vancomycin Level 16.4 Current Medications Medications (Trade) Dose Ordered Sig/Tonny Route PRN Reason Start Time Stop Time Status Last Admin Dose Admin Cefepime HCl 2 gm/ Dextrose 110 ml @ 220 mls/hr Q24H IV 03/03/19 09:00 03/09/19 08:59 03/07/19 10:17 Chlorhexidine Gluconate (Stephanie-Hex 2%) 1 applic DAILY@2000 TOPIC 03/04/19 20:00 04/03/19 19:59 03/06/19 20:56 Dextrose (Dextrose 50%) 25 ml Q30M PRN IV Hypoglycemia 03/02/19 17:45 03/16/19 16:14 Dextrose (Dextrose 50%) 50 ml Q30M PRN IV Hypoglycemia 03/02/19 17:45 03/16/19 16:14 Lactobacillus Acidophilus (Culturelle) 1 tab EVERY 12 HOURS ORAL 03/02/19 21:00 03/26/19 17:59 03/07/19 09:30 Lactulose (Cephulac) 10 gm THREE TIMES A DAY ORAL 03/02/19 18:00 04/01/19 12:59 03/07/19 09:31 Lansoprazole (Prevacid) 30 mg EVERY 12 HOURS ORAL 03/02/19 21:00 03/26/19 17:59 03/07/19 09:30 Levetiracetam (Keppra) 500 mg Q12HR ORAL 03/03/19 21:00 04/02/19 20:59 03/07/19 09:31 Metronidazole (Flagyl) 500 mg Q8HR ORAL 03/03/19 22:00 03/10/19 21:59 03/07/19 06:05 Micafungin Sodium 100 mg/Sodium Chloride 110 ml @ 110 mls/hr Q24H IVPB 03/03/19 10:30 03/10/19 10:29 03/06/19 11:33 Ondansetron HCl (Zofran) 4 mg Q6H PRN IVP Nausea & Vomiting 03/02/19 18:30 03/16/19 18:29 Rifaximin (Xifaxan) 550 mg EVERY 12 HOURS ORAL 03/02/19 21:00 03/09/19 20:59 03/07/19 09:30 Tamsulosin HCl (Flomax) 0.8 mg BEDTIME ORAL 03/05/19 21:30 04/04/19 21:29 03/06/19 20:57 Thiamine HCl (Vitamin B1) 100 mg DAILY ORAL 03/07/19 09:00 03/27/19 08:59 03/07/19 09:31 Vancomycin HCl (Vanco rx to dose) 1 ea DAILY PRN MISC Per rx protocol 03/03/19 09:00 03/17/19 12:59 Vancomycin HCl 1 gm/Dextrose 275 ml @ 183.708 mls/hr Q12HR IVPB 03/07/19 09:00 03/12/19 08:59 03/07/19 09:32 Han Harris MD Mar 07, 2019 12:18
--- NOTE | 2019-03-07 13:50 | Hematology/Onc Progress Note ---
Assessment/Plan Assessment/Plan # Bicytopenia with anemia likely due to Gi bleed -- stool occult blood +, requires further eval with gi, also with etoh withdrawal, also can be related to meds/abx, Hida shows Limited hepatic uptake and excretion, probably due to hepatocellular disease. Note that previous imaging studies suggest the presence of cirrhotic changes. --> anemia panel has been reviewed and results are acd --> peripheral smear reviewed and not noted to have blasts --> wbc remains elevated --> continue on folate 1mg po daily (LOW FOLATE) --> Flow cytometry shows no evidence of b-lymphoproliferative disorder --> Hep panel negative --> thoracentesis cytology negative for malignant cells # Anemia of chronic disease, per anemia panel --> hgb trend 8-->7-->8-->9-->8.6-->7.7-->7.9-->8.3-->7.9->8.5-->9-->10-->9.9--> 7.7-->9.4 --> may require gi eval when more stable with scope (EGD) --> transfuse if hgb <7 --> cont folic acid and thiamine # Leukocytosis due to Septic shock and severe Lactic acidosis on Levophed and broad-spectrum IV antibiotics. --> per ID care, continue abx --> pressor as needed --> flagyl, cefepime, caremn, vanc --> wbc trend: 34.9 -->28k-->35k-->17k-->20.7 # Sinus tachycardia up to 170s. No evidence of acute mi --> This is likely due to sepsis and anemia, alcohol withdrawal --> Echo Nl EF 60% # Troponin leak, type 2 --> per cards # Respiratory failure on the vent. Failed weaning --> sbt trial per pulm, now extubated --> 02/27 the bronchoscope was advanced into both mainstem bronchi and subsegmental bronchi. There was increased secretions bilaterally, mucopurulent including mucus plugging of the right upper lobe, which was therapeutically aspirated. BAL specimen was sent. # Transaminitis with elev bilis --> as per gi with ast/alt high --> monitor for resol of sepsis # ETOH withdrawal --> recommend etoh cessation # Seizures with noncompliance Greatly appreciate consultation. Subjective Hematologic/Lymphatic: Reports: anemia Allergies: Coded Allergies: No Known Allergies (Unverified , 02/10/15) All Systems: reviewed and negative except above Subjective 02/20: intubated, counts are better, on vent, sbt in process, no f/c, mag low 02/21: endoscopy on hold at this time, bloody stool, plt better, on abx 02/22: no events reported, remains intubated, no bleeding, plt better, k is low, repleted\ 02/23: remains in icu, letargic, flow cytometry showed no evidence of b- lymphoproliferative disorder, c-diif negative, labs reviewed, remains on levo 02/24: in icu, on vent, wbc at 32, id made aware. 02/25: icu, weaning off of vent, labs reviewed, continues on abx 02/26: no fc, no changes reported, wbc high, ongoing hida scan 02/27: no events, bronch to be done today, results pending 02/28: no f/c, restraints++, ogt was inserted 03/01: s/p extubation, self-extubated, otherwise on abx, off pressors 03/02: no events too report, labs have been reviewed, off abx, remains agitated 03/03 no fevers or chills, no changes, breathing better, less altered 03/05: no events, no bleeding, hgb 7.7, on RA only, sating well 03/06: hgb is low, otherwise without event, slightly improved, as per gi transaminitis, bilis are better 03/07: no overnight events, still jaundiced, delgado removed, h/h stable, thoracentesis cytology negative for malignant cells Objective Objective Current Medications Medications (Trade) Dose Ordered Sig/Tonny Route PRN Reason Start Time Stop Time Status Last Admin Dose Admin Cefepime HCl 2 gm/ Dextrose 110 ml @ 220 mls/hr Q24H IV 03/03/19 09:00 03/09/19 08:59 03/07/19 10:17 Chlorhexidine Gluconate (Stephanie-Hex 2%) 1 applic DAILY@1999 TOPIC 03/04/19 20:00 04/03/19 19:59 03/06/19 20:56 Dextrose (Dextrose 50%) 25 ml Q30M PRN IV Hypoglycemia 03/02/19 17:45 03/16/19 16:14 Dextrose (Dextrose 50%) 50 ml Q30M PRN IV Hypoglycemia 03/02/19 17:45 03/16/19 16:14 Lactobacillus Acidophilus (Culturelle) 1 tab EVERY 12 HOURS ORAL 03/02/19 21:00 03/26/19 17:59 03/07/19 09:30 Lactulose (Cephulac) 10 gm THREE TIMES A DAY ORAL 03/02/19 18:00 04/01/19 12:59 03/07/19 13:09 Lansoprazole (Prevacid) 30 mg EVERY 12 HOURS ORAL 03/02/19 21:00 03/26/19 17:59 03/07/19 09:30 Levetiracetam (Keppra) 500 mg Q12HR ORAL 03/03/19 21:00 04/02/19 20:59 03/07/19 09:31 Metronidazole (Flagyl) 500 mg Q8HR ORAL 03/03/19 22:00 03/10/19 21:59 03/07/19 13:09 Micafungin Sodium 100 mg/Sodium Chloride 110 ml @ 110 mls/hr Q24H IVPB 03/03/19 10:30 03/10/19 10:29 03/07/19 12:18 Ondansetron HCl (Zofran) 4 mg Q6H PRN IVP Nausea & Vomiting 03/02/19 18:30 03/16/19 18:29 Rifaximin (Xifaxan) 550 mg EVERY 12 HOURS ORAL 03/02/19 21:00 03/09/19 20:59 03/07/19 09:30 Tamsulosin HCl (Flomax) 0.8 mg BEDTIME ORAL 03/05/19 21:30 04/04/19 21:29 03/06/19 20:57 Thiamine HCl (Vitamin B1) 100 mg DAILY ORAL 03/07/19 09:00 03/27/19 08:59 03/07/19 09:31 Vancomycin HCl (Vanco rx to dose) 1 ea DAILY PRN MISC Per rx protocol 03/03/19 09:00 03/17/19 12:59 Vancomycin HCl 1 gm/Dextrose 275 ml @ 183.708 mls/hr Q12HR IVPB 03/07/19 09:00 03/12/19 08:59 03/07/19 09:32 Last 24 Hour Vital Signs Date Time Temp Pulse Resp B/P (MAP) Pulse Ox O2 Delivery O2 Flow Rate FiO2 03/07/19 12:00 98.6 85 20 109/71 (84) 03/07/19 11:57 97 03/07/19 09:00 Room Air Room Air 03/07/19 08:00 96.6 88 20 122/79 (93) 93 03/07/19 07:57 95 03/07/19 07:37 97 Room Air 21 03/07/19 04:00 90 03/07/19 04:00 97.6 90 19 113/76 (88) 96 03/07/19 00:00 77 03/07/19 00:00 97.8 77 17 112/76 (88) 97 03/06/19 21:38 97 Room Air 21 03/06/19 21:00 Room Air Room Air 03/06/19 20:00 97.0 93 18 110/71 (84) 98 03/06/19 20:00 93 03/06/19 16:00 96.6 93 20 111/76 (88) 97 03/06/19 16:00 88 03/06/19 12:00 88 03/06/19 12:00 96.8 90 18 96/63 (74) 99 03/06/19 09:00 Room Air Room Air 03/06/19 08:00 96.6 98 20 105/77 (86) 97 03/06/19 08:00 96 03/06/19 07:00 96 Room Air 21 03/06/19 04:00 97.2 92 17 112/69 (83) 97 03/06/19 04:00 88 03/06/19 01:45 94 Room Air 21 03/06/19 00:00 98.4 83 18 110/75 (87) 97 03/06/19 00:00 83 03/05/19 21:00 Room Air Room Air 03/05/19 20:00 97.9 81 18 109/74 (86) 97 03/05/19 20:00 95 03/05/19 16:00 92 03/05/19 16:00 98.6 86 20 119/77 (91) 97 Intake and Output 03/06/19 03/07/19 19:00 07:00 Intake Total 1030 ml Output Total 500 ml Balance 530 ml Intake Oral 810 ml IV Total 220 ml Output Urine Total 500 ml # Voids 3 3 # Bowel Movements 4 4 Labs Test 03/04/19 14:10 03/05/19 07:03 03/06/19 05:00 03/07/19 05:30 Random Vancomycin Level 12.9 ug/mL 7.9 ug/mL 16.4 ug/mL White Blood Count 25.4 K/UL (4.8-10.8) 18.2 K/UL (4.8-10.8) 20.7 K/UL (4.8-10.8) Red Blood Count 2.47 M/UL (4.70-6.10) 2.85 M/UL (4.70-6.10) 3.07 M/UL (4.70-6.10) Hemoglobin 7.7 G/DL (14.2-18.0) 8.9 G/DL (14.2-18.0) 9.4 G/DL (14.2-18.0) Hematocrit 24.0 % (42.0-52.0) 27.5 % (42.0-52.0) 29.6 % (42.0-52.0) Mean Corpuscular Volume 97 FL (80-99) 97 FL (80-99) 97 FL (80-99) Mean Corpuscular Hemoglobin 31.0 PG (27.0-31.0) 31.3 PG (27.0-31.0) 30.8 PG (27.0-31.0) Mean Corpuscular Hemoglobin Concent 32.0 G/DL (32.0-36.0) 32.4 G/DL (32.0-36.0) 31.9 G/DL (32.0-36.0) Red Cell Distribution Width 15.9 % (11.6-14.8) 16.0 % (11.6-14.8) 15.7 % (11.6-14.8) Platelet Count 309 K/UL (150-450) 174 K/UL (150-450) 160 K/UL (150-450) Mean Platelet Volume 6.1 FL (6.5-10.1) 6.5 FL (6.5-10.1) 6.9 FL (6.5-10.1) Neutrophils (%) (Auto) % (45.0-75.0) % (45.0-75.0) % (45.0-75.0) Lymphocytes (%) (Auto) % (20.0-45.0) % (20.0-45.0) % (20.0-45.0) Monocytes (%) (Auto) % (1.0-10.0) % (1.0-10.0) % (1.0-10.0) Eosinophils (%) (Auto) % (0.0-3.0) % (0.0-3.0) % (0.0-3.0) Basophils (%) (Auto) % (0.0-2.0) % (0.0-2.0) % (0.0-2.0) Differential Total Cells Counted 100 100 100 Neutrophils % (Manual) 75 % (45-75) 74 % (45-75) 83 % (45-75) Lymphocytes % (Manual) 10 % (20-45) 7 % (20-45) 4 % (20-45) Monocytes % (Manual) 10 % (1-10) 11 % (1-10) 10 % (1-10) Eosinophils % (Manual) 4 % (0-3) 4 % (0-3) 3 % (0-3) Basophils % (Manual) 1 % (0-2) 1 % (0-2) 0 % (0-2) Band Neutrophils 0 % (0-8) 3 % (0-8) 0 % (0-8) Platelet Estimate Adequate Adequate Adequate Platelet Morphology Normal Normal Normal Hypochromasia 3+ 2+ Spherocytes 1+ Prothrombin Time 17.1 SEC (9.30-11.50) Prothromb Time International Ratio 1.6 (0.9-1.1) Activated Partial Thromboplast Time 37 SEC (23-33) Sodium Level 140 MMOL/L (136-145) 137 MMOL/L (136-145) 133 MMOL/L (136-145) Potassium Level 4.2 MMOL/L (3.5-5.1) 3.8 MMOL/L (3.5-5.1) 3.9 MMOL/L (3.5-5.1) Chloride Level 109 MMOL/L (98-107) 106 MMOL/L (98-107) 103 MMOL/L (98-107) Carbon Dioxide Level 21 MMOL/L (21-32) 24 MMOL/L (21-32) 23 MMOL/L (21-32) Anion Gap 10 mmol/L (5-15) 7 mmol/L (5-15) 8 mmol/L (5-15) Blood Urea Nitrogen 25 mg/dL (7-18) 23 mg/dL (7-18) 21 mg/dL (7-18) Creatinine 1.9 MG/DL (0.55-1.30) 1.8 MG/DL (0.55-1.30) 1.8 MG/DL (0.55-1.30) Estimat Glomerular Filtration Rate 44.8 mL/min (>60) 47.8 mL/min (>60) 47.8 mL/min (>60) Glucose Level 113 MG/DL (74-106) 119 MG/DL (74-106) 132 MG/DL (74-106) Calcium Level 8.2 MG/DL (8.5-10.1) 7.6 MG/DL (8.5-10.1) 7.8 MG/DL (8.5-10.1) Total Bilirubin 8.2 MG/DL (0.2-1.0) 7.2 MG/DL (0.2-1.0) 6.8 MG/DL (0.2-1.0) Direct Bilirubin 6.0 MG/DL (0.0-0.3) 5.9 MG/DL (0.0-0.3) 5.7 MG/DL (0.0-0.3) Aspartate Amino Transf (AST/SGOT) 103 U/L (15-37) 82 U/L (15-37) 81 U/L (15-37) Alanine Aminotransferase (ALT/SGPT) 43 U/L (12-78) 37 U/L (12-78) 36 U/L (12-78) Alkaline Phosphatase 235 U/L (46-116) 184 U/L (46-116) 188 U/L (46-116) Total Protein 7.3 G/DL (6.4-8.2) 5.7 G/DL (6.4-8.2) 6.6 G/DL (6.4-8.2) Albumin 1.4 G/DL (3.4-5.0) 1.5 G/DL (3.4-5.0) 1.4 G/DL (3.4-5.0) Globulin 5.9 g/dL 4.2 g/dL 5.2 g/dL Albumin/Globulin Ratio 0.2 (1.0-2.7) 0.4 (1.0-2.7) 0.3 (1.0-2.7) Nick-Mckeon Virus Capsid Ag IgM Ab 57.3 U/mL (0.0-35.9) Herpes Simplex Virus I IgM Ab (IFA) <1:10 titer (<1:10) Herpes Simplex Virus II IgM Ab (IFA <1:10 titer (<1:10) Anisocytosis 1+ 1+ Target Cells 2+ [place] Cells 1+ Uric Acid 4.0 MG/DL (2.6-7.2) Phosphorus Level 3.2 MG/DL (2.5-4.9) Magnesium Level 1.4 MG/DL (1.8-2.4) C-Reactive Protein, Quantitative 3.8 mg/dL (0.00-0.90) Height (Feet): 5 Height (Inches): 5.00 Weight (Pounds): 268 Objective Gen: NAD HEENT: atraumatic, other - OGT Lungs: clear, ++RA sating 95% Heart: HR/BP unstable Abdomen: soft, non-tender, active bowel sounds Extremities: no cce, L femoral cath+, bilateral wrist restraints are off Robert Johnston MD Mar 07, 2019 13:50
--- NOTE | 2019-03-07 13:50 | Surgery Progress Note ---
Surgery Progress Note Subjective Procedure Performed \ Additional Comments leukocytosis anemia tolerating diet hepatic function improved Objective Last 24 Hour Vital Signs Date Time Temp Pulse Resp B/P (MAP) Pulse Ox O2 Delivery O2 Flow Rate FiO2 03/07/19 12:00 98.6 85 20 109/71 (84) 03/07/19 11:57 97 03/07/19 09:00 Room Air Room Air 03/07/19 08:00 96.6 88 20 122/79 (93) 93 03/07/19 07:57 95 03/07/19 07:37 97 Room Air 21 03/07/19 04:00 90 03/07/19 04:00 97.6 90 19 113/76 (88) 96 03/07/19 00:00 77 03/07/19 00:00 97.8 77 17 112/76 (88) 97 03/06/19 21:38 97 Room Air 21 03/06/19 21:00 Room Air Room Air 03/06/19 20:00 97.0 93 18 110/71 (84) 98 03/06/19 20:00 93 03/06/19 16:00 96.6 93 20 111/76 (88) 97 03/06/19 16:00 88 I&O Intake and Output 03/06/19 03/07/19 19:00 07:00 Intake Total 1030 ml Output Total 500 ml Balance 530 ml Intake Oral 810 ml IV Total 220 ml Output Urine Total 500 ml # Voids 3 3 # Bowel Movements 4 4 Cardiovascular: RSR Respiratory: clear Abdomen: soft, present bowel sounds, non-distended Extremities: no cyanosis Laboratory Tests Test 03/07/19 05:30 White Blood Count 20.7 K/UL (4.8-10.8) H Red Blood Count 3.07 M/UL (4.70-6.10) L Hemoglobin 9.4 G/DL (14.2-18.0) L Hematocrit 29.6 % (42.0-52.0) L Mean Corpuscular Volume 97 FL (80-99) Mean Corpuscular Hemoglobin 30.8 PG (27.0-31.0) Mean Corpuscular Hemoglobin Concent 31.9 G/DL (32.0-36.0) L Red Cell Distribution Width 15.7 % (11.6-14.8) H Platelet Count 160 K/UL (150-450) Mean Platelet Volume 6.9 FL (6.5-10.1) Neutrophils (%) (Auto) % (45.0-75.0) Lymphocytes (%) (Auto) % (20.0-45.0) Monocytes (%) (Auto) % (1.0-10.0) Eosinophils (%) (Auto) % (0.0-3.0) Basophils (%) (Auto) % (0.0-2.0) Differential Total Cells Counted 100 Neutrophils % (Manual) 83 % (45-75) H Lymphocytes % (Manual) 4 % (20-45) L Monocytes % (Manual) 10 % (1-10) Eosinophils % (Manual) 3 % (0-3) Basophils % (Manual) 0 % (0-2) Band Neutrophils 0 % (0-8) Platelet Estimate Adequate Platelet Morphology Normal Hypochromasia 2+ Anisocytosis 1+ Sodium Level 133 MMOL/L (136-145) L Potassium Level 3.9 MMOL/L (3.5-5.1) Chloride Level 103 MMOL/L (98-107) Carbon Dioxide Level 23 MMOL/L (21-32) Anion Gap 8 mmol/L (5-15) Blood Urea Nitrogen 21 mg/dL (7-18) H Creatinine 1.8 MG/DL (0.55-1.30) H Estimat Glomerular Filtration Rate 47.8 mL/min (>60) Glucose Level 132 MG/DL (74-106) H Calcium Level 7.8 MG/DL (8.5-10.1) L Total Bilirubin 6.8 MG/DL (0.2-1.0) H Direct Bilirubin 5.7 MG/DL (0.0-0.3) H Aspartate Amino Transf (AST/SGOT) 81 U/L (15-37) H Alanine Aminotransferase (ALT/SGPT) 36 U/L (12-78) Alkaline Phosphatase 188 U/L (46-116) H Total Protein 6.6 G/DL (6.4-8.2) Albumin 1.4 G/DL (3.4-5.0) L Globulin 5.2 g/dL Albumin/Globulin Ratio 0.3 (1.0-2.7) L Random Vancomycin Level 16.4 ug/mL Plan Problems: (1) Non-compliance Assessment & Plan: Noncompliance with seizure medication with known history of seizures Now had seizure Appreciate neurology input (2) Electrolyte and fluid disorder Assessment & Plan: Likely due to EtOH use and dehydration IV hydration Trend labs (3) Fever (4) Oral thrush (5) Diarrhea (6) Aspiration pneumonia (7) Seizure disorder (8) Tachycardia (9) Altered mental status (10) Alcohol withdrawal seizure (11) Alcohol withdrawal seizure (12) Episode of confusion (13) Coffee ground emesis (14) Gastrointestinal bleed Assessment & Plan: Patient on admission identified to have maroon-colored stool and coffee-ground emesis. Labs noted mild anemia with H&H trending down. No acute active bleed noted but given patient's history high risk for potential ulcers. PPI Appreciate GI input considerations for EGD once stable No evidence of pulmonary embolus, aortic dissection or aneurysm. Posterior basilar consolidation suspicious for pneumonia. Correlate clinically. Trace bilateral pleural effusions. Possible enterocolitis as described above. Please correlate clinically. Mild ascites Fatty liver Cholelithiasis with wall thickening. Cholecystitis not excluded. Small right inguinal hernia containing fat Extensive breathing motion artifact limiting evaluation. We will follow with recommendations thank you (15) Sinus tachycardia (16) Septic shock (17) Sepsis Assessment & Plan: Patient septic leukocytosis improved today lactic acidosis resolved anemia renal function declining electrolyte disturbance US noted picc out transition to oral meds extubated doing well US noted again. liver decompensated HIDA noted and likely cirrhosis delgado AM labs reordered s/p para micro negative improving overall (18) Lactic acid acidosis (19) STEFANI (acute kidney injury) (20) Abnormal LFTs (21) High anion gap metabolic acidosis Juanpablo Marcus Mar 07, 2019 13:50
--- NOTE | 2019-03-07 14:55 | NUR ---
*-* INSURANCE *-* UPDATED CLINICAL AD REVIEWS HAVE BEEN FAXED TO: VANESSA COREA: ANTWON P- [id number] [id number] [phone] [id number] [phone]..............REVIEW/CLINICAL
--- NOTE | 2019-03-07 15:59 | Cardiac Electrophysiology PN ---
Assessment/Plan Assessment/Plan 1. Sinus tachycardia up to 170s. No myocardial infarction . Due to sepsis and anemia and alcohol withdrawal. EF 60%. In SR in 70s 2. S/P Septic shock and E Coli bacteremia, on broad-spectrum IV antibiotics. 3. Troponin leak. Type 2. No CP 4. S/P Respiratory failure. Self extubated S/P Bronchoscopy and removal of mucus plug 5. ETOH withdrawal 6. Seizures with noncompliance. 7. Upper gi bleed. S/P EGD 8. Hematuria, resolved 9. Coffee ground emesis. EGD showed a. Medium-sized hiatal hernia. b. Portal hypertensive gastropathy, status post biopsy. 10. Liver cirrhosis with ascites. Billirubin down [address] Goldberg S/P Paracentesis 4.35 on 03/04. On Lactulose DW RN Subjective Subjective Alert off restraints. In SR. Objective Last 24 Hour Vital Signs Date Time Temp Pulse Resp B/P (MAP) Pulse Ox O2 Delivery O2 Flow Rate FiO2 03/07/19 12:00 98.6 85 20 109/71 (84) 03/07/19 11:57 97 03/07/19 09:00 Room Air Room Air 03/07/19 08:00 96.6 88 20 122/79 (93) 93 03/07/19 07:57 95 03/07/19 07:37 97 Room Air 21 03/07/19 04:00 90 03/07/19 04:00 97.6 90 19 113/76 (88) 96 03/07/19 00:00 77 03/07/19 00:00 97.8 77 17 112/76 (88) 97 03/06/19 21:38 97 Room Air 21 03/06/19 21:00 Room Air Room Air 03/06/19 20:00 97.0 93 18 110/71 (84) 98 03/06/19 20:00 93 03/06/19 16:00 96.6 93 20 111/76 (88) 97 03/06/19 16:00 88 Intake and Output 03/06/19 03/07/19 19:00 07:00 Intake Total 1030 ml Output Total 500 ml Balance 530 ml Intake Oral 810 ml IV Total 220 ml Output Urine Total 500 ml # Voids 3 3 # Bowel Movements 4 4 Laboratory Tests Test 03/07/19 05:30 White Blood Count 20.7 K/UL (4.8-10.8) H Red Blood Count 3.07 M/UL (4.70-6.10) L Hemoglobin 9.4 G/DL (14.2-18.0) L Hematocrit 29.6 % (42.0-52.0) L Mean Corpuscular Volume 97 FL (80-99) Mean Corpuscular Hemoglobin 30.8 PG (27.0-31.0) Mean Corpuscular Hemoglobin Concent 31.9 G/DL (32.0-36.0) L Red Cell Distribution Width 15.7 % (11.6-14.8) H Platelet Count 160 K/UL (150-450) Mean Platelet Volume 6.9 FL (6.5-10.1) Neutrophils (%) (Auto) % (45.0-75.0) Lymphocytes (%) (Auto) % (20.0-45.0) Monocytes (%) (Auto) % (1.0-10.0) Eosinophils (%) (Auto) % (0.0-3.0) Basophils (%) (Auto) % (0.0-2.0) Differential Total Cells Counted 100 Neutrophils % (Manual) 83 % (45-75) H Lymphocytes % (Manual) 4 % (20-45) L Monocytes % (Manual) 10 % (1-10) Eosinophils % (Manual) 3 % (0-3) Basophils % (Manual) 0 % (0-2) Band Neutrophils 0 % (0-8) Platelet Estimate Adequate Platelet Morphology Normal Hypochromasia 2+ Anisocytosis 1+ Sodium Level 133 MMOL/L (136-145) L Potassium Level 3.9 MMOL/L (3.5-5.1) Chloride Level 103 MMOL/L (98-107) Carbon Dioxide Level 23 MMOL/L (21-32) Anion Gap 8 mmol/L (5-15) Blood Urea Nitrogen 21 mg/dL (7-18) H Creatinine 1.8 MG/DL (0.55-1.30) H Estimat Glomerular Filtration Rate 47.8 mL/min (>60) Glucose Level 132 MG/DL (74-106) H Calcium Level 7.8 MG/DL (8.5-10.1) L Total Bilirubin 6.8 MG/DL (0.2-1.0) H Direct Bilirubin 5.7 MG/DL (0.0-0.3) H Aspartate Amino Transf (AST/SGOT) 81 U/L (15-37) H Alanine Aminotransferase (ALT/SGPT) 36 U/L (12-78) Alkaline Phosphatase 188 U/L (46-116) H Total Protein 6.6 G/DL (6.4-8.2) Albumin 1.4 G/DL (3.4-5.0) L Globulin 5.2 g/dL Albumin/Globulin Ratio 0.3 (1.0-2.7) L Random Vancomycin Level 16.4 ug/mL Microbiology Date/Time Source Procedure Growth Status 03/05/19 12:30 Body Fluid Gram Stain - Final Resulted 03/05/19 12:30 Body Fluid Body Fluid Culture - Preliminary NO GROWTH AFTER 48 HOURS Resulted Objective HEAD AND NECK: No JV. Icteric sclera LUNGS: Decreased breath sounds. CARDIOVASCULAR: Regular S1 and S2 with no gallop or murmur. ABDOMEN: Soft. EXTREMITIES: No pitting edema. Fidencio Trevino MD Mar 07, 2019 15:59
[2019-03-07 16:00] VITALS: BP 117/70
--- NOTE | 2019-03-07 17:22 | General Progress Note ---
Assessment/Plan Status: unchanged Assessment/Plan: 54 year old male with pMH of seizure disorder and etoh abuse admitted for seizures 2/2 non-compliance #severe septic shock likely 2/2 UTI - imprved #Gram negative bacteremia, now resolved by surveillance follow up blood culture #Acute respiratory failure requiting intubation s/p extubation 03/01 -abx per ID - Re culture ordered due to severe increase in the WBC from 15 to 26 to 29 thousand of unclear etiology - Hematology consult noted to be due to sepsis. - CBC serial. - CT 02/18 with atelectasis primarily - Diuresis -ID consult appreciated - Immunoglobulin and hepatitis panel negative. -abg prn - Reviewed CT chest/abd/pel -PICC placed # Transaminitis - improved #Ascites - paracenthesis 03/05 - f/u HIDA : non obstructive, findings c/w intracellular damage - ctm - appreciate GI and Sx input - us shows nodularity and chronic disease - hep panel negative - f/u GI # Hemoptysis - resolved - s/p bronch 02/27 with Therapeutic aspiration and mucus plug from the endotracheal tube in right upper lobe., - monitor ett output - monitor hgb #Lactic acidosis - resolved -2/2 severe shock/ poss abd source/ seizures - 2 D Echo on 02/16 with EF 65%. Discussed with cardiology and etiology likely sepsis and not cardiogenic -CTM -Fluid boluses completed. -Cont mIVF #Coagulopathy # Thrombocytopenia - 40,000 stable Monitor. No active bleeding toay. - Hematology consult with Dr. Johnston appreciated. Flow cytometry pending. -likely 2/2 hepatic injury 2/2 shock - Consumption coagulopathy. - Consider platelet transfusion if LESS than 30K with urine blood tinge color. #Coffee ground emesis likely in setting of GI bleed -H/H trending down. Monitor -GI consult appreciated -s/p EGD, no significant findings, f/u biopsies #Seizures 2/2 noncomplaint with AED -s/p phenytoin load in ED -Cont Phenytoin -Neurology consult appreciated -pending EEG - no seizures noted in last 24 hours -Ativan PRN for seizures -NPO -Seizure precautions #Hypokalemia - Replete as needed #hypophosphatemia - Repleted. #Hypomagnesemia -repleted -CTM # Urethral hemorrhage and clot evacuation - stable - appreciate urology consult - If recurrent hemorrhage will address. - Consider PRBC and Platelets if Hb < 8 or Plt < 30 K # Urinary retention PVR > 300 cc WILKINSON replaced 02/[address] ( in case of repeat hemorrhage ) - WILKINSON REMOVED 03/05 - VOIDING WELL D/w RN Code: Full Subjective Date patient seen: Mar 07, 2019 Allergies: Coded Allergies: No Known Allergies (Unverified , 02/10/15) Subjective No acute overnight events, urinating well per nursing staff, has no complaints. Objective Last 24 Hour Vital Signs Date Time Temp Pulse Resp B/P (MAP) Pulse Ox O2 Delivery O2 Flow Rate FiO2 03/07/19 16:00 98.2 88 20 117/70 (86) 98 03/07/19 16:00 88 03/07/19 12:00 98.6 85 20 109/71 (84) 03/07/19 11:57 97 03/07/19 09:00 Room Air Room Air 03/07/19 08:00 96.6 88 20 122/79 (93) 93 03/07/19 07:57 95 03/07/19 07:37 97 Room Air 21 03/07/19 04:00 90 03/07/19 04:00 97.6 90 19 113/76 (88) 96 03/07/19 00:00 77 03/07/19 00:00 97.8 77 17 112/76 (88) 97 03/06/19 21:38 97 Room Air 21 03/06/19 21:00 Room Air Room Air 03/06/19 20:00 97.0 93 18 110/71 (84) 98 03/06/19 20:00 93 Intake and Output 03/06/19 03/07/19 19:00 07:00 Intake Total 1030 ml Output Total 500 ml Balance 530 ml Intake Oral 810 ml IV Total 220 ml Output Urine Total 500 ml # Voids 3 3 # Bowel Movements 4 4 Laboratory Tests 03/07/19 05:30: White Blood Count 20.7H, Red Blood Count 3.07L, Hemoglobin 9.4L, Hematocrit 29.6L, Mean Corpuscular Volume 97, Mean Corpuscular Hemoglobin 30.8, Mean Corpuscular Hemoglobin Concent 31.9L, Red Cell Distribution Width 15.7H, Platelet Count 160, Mean Platelet Volume 6.9, Neutrophils (%) (Auto) , Lymphocytes (%) (Auto) , Monocytes (%) (Auto) , Eosinophils (%) (Auto) , Basophils (%) (Auto) , Differential Total Cells Counted 100, Neutrophils % ( Manual) 83H, Lymphocytes % (Manual) 4L, Monocytes % (Manual) 10, Eosinophils % ( Manual) 3, Basophils % (Manual) 0, Band Neutrophils 0, Platelet Estimate Adequate, Platelet Morphology Normal, Hypochromasia 2+, Anisocytosis 1+, Sodium Level 133L, Potassium Level 3.9, Chloride Level 103, Carbon Dioxide Level 23, Anion Gap 8, Blood Urea Nitrogen 21H, Creatinine 1.8H, Estimat Glomerular Filtration Rate 47.8, Glucose Level 132H, Calcium Level 7.8L, Total Bilirubin 6.8H, Direct Bilirubin 5.7H, Aspartate Amino Transf (AST/SGOT) 81H, Alanine Aminotransferase (ALT/SGPT) 36, Alkaline Phosphatase 188H, Total Protein 6.6, Albumin 1.4L, Globulin 5.2, Albumin/Globulin Ratio 0.3L, Random Vancomycin Level 16.4 Height (Feet): 5 Height (Inches): 5.00 Weight (Pounds): 268 Objective General appearance: extubated, calm Head: Normocephalic, without obvious abnormality, atraumatic Eyes: conjunctivae/corneas clear. PERRL, EOM's intact. Fundi benign Throat: Lips, mucosa, and tongue normal. Teeth and gums normal Neck: supple, symmetrical, trachea midline, no adenopathy, thyroid: not enlarged, symmetric, no tenderness/mass/nodules, no carotid bruit and no JVD Lungs: b/l air entry, no wheezing noted Heart: regular rate and rhythm, S1, S2 normal, no murmur, click, rub or gallop Abdomen: soft, non-tender. Bowel sounds normal. No masses, no organomegaly, distended Extremities: extremities normal, atraumatic, no cyanosis or edema Pulses: 2+ and symmetric Skin: Skin color, texture, turgor normal. No rashes or lesions Neurologic: Grossly normal Lyn Cuevas MD Mar 07, 2019 17:22
--- NOTE | 2019-03-07 19:22 | NUR ---
HAND-OFF: Report given to ESHA Mata. Endorsed plan of care.
--- NOTE | 2019-03-07 19:25 | NUR ---
NURSE NOTES: Received report from ESHA [place]. Patient in bed asleep showing no signs of acute distress. HOB 30deg. Respiration even and non labored on room air. AOx3. PICC on left UA 2 lumen patent, dressing intact. Seizure precaution observed, bed side rails padded. No episode of seizure noted. Bed in lowest position, wheels locked and alarm on. Call light within reach. All needs attended and met. Will continue plan of care.
[2019-03-07 20:00] VITALS: BP 116/75
[2019-03-07] MEDS: Dyna-Hex 2% Top Sol 2oz TOPIC SCH (21:00)
[2019-03-07] MEDS: Tamsulosin 0.4mg cap ORAL SCH (21:01)
[2019-03-08] VITALS: BP 117/76
--- NOTE | 2019-03-08 00:45 | NUR ---
HAND-OFF: Report given to ESHA Cobb.
[2019-03-08 04:00] VITALS: BP 114/79
[2019-03-08] MEDS: metroNIDAZOLE 500mg tab ORAL SCH ×2 (05:45→14:29)
[2019-03-08 06:15] LABS: HEMATOCRIT 27.5 % (42.0-52.0); HEMOGLOBIN 8.9 G/DL (14.2-18.0); MEAN CORPUSCULAR VOLUME 97 FL (80-99); PLATELET COUNT 138 K/UL (150-450); RED BLOOD COUNT 2.84 M/UL (4.70-6.10); RED CELL DISTRIBUTION WIDTH 15.5 % (11.6-14.8); WHITE BLOOD COUNT 21.8 K/UL (4.8-10.8)
[2019-03-08 06:40] LABS: PHOSPHORUS 3.5 MG/DL (2.5-4.9)
--- NOTE | 2019-03-08 07:15 | NUR ---
HAND-OFF: Report given to ESHA Ortega, plan of care endorsed.
--- NOTE | 2019-03-08 07:41 | NUR ---
NURSE NOTES: Received report from ESHA Hull. Patient in bed resting, no active s/s cardiac, respiratory distress noticed at this time, denies pain at this time. Endorsed no seizure activity during the night. AOx3, patient on room air, SR with HR 93. Patient on condom catheter, draining well to gravity, PICC line on left upper arm , endorsed dressing changed on 03/06/19, intact. Seizure precaution on , side rails upx3, padded, Bed in lowest position, call light within reach. Will continue to monitor.
[2019-03-08 07:42] LABS: ALANINE AMINOTRANSFERASE 31 U/L (12-78); ALBUMIN 1.4 G/DL (3.4-5.0); ALBUMIN/GLOBULIN RATIO 0.3 (1.0-2.7); ALKALINE PHOSPHATASE 183 U/L (46-116); ANION GAP 7 mmol/L (5-15); ASPARTATE AMINO TRANSFERASE 69 U/L (15-37); BILIRUBIN,TOTAL 6.4 MG/DL (0.2-1.0); BLOOD UREA NITROGEN 20 mg/dL (7-18); CALCIUM 7.9 MG/DL (8.5-10.1); CARBON DIOXIDE 22 MMOL/L (21-32); CHLORIDE 102 MMOL/L (98-107); CREATININE 1.7 MG/DL (0.55-1.30); SODIUM 131 MMOL/L (136-145)
[2019-03-08 07:43] LABS: BILIRUBIN,DIRECT 5.1 MG/DL (0.0-0.3)
[2019-03-08 08:00] VITALS: BP 103/72
--- NOTE | 2019-03-08 08:39 | Urology Progress Note ---
Assessment/Plan Status: unchanged Assessment/Plan: 1. Gross hematuria history, improved. 2. Urinary retention. 3. Probable neurogenic bladder. 4. Urinary tract infection history. 5. Sepsis history. 6. STEFANI. monitor clinically delgado out and voiding abx as ordered monitor renal flomax 0.8 mg Subjective Allergies: Coded Allergies: No Known Allergies (Unverified , 02/10/15) Subjective all noted, more alert, delgado out, voiding, slight bloody urethral discharge reported, but urine otherwise reported clear Objective Last 24 Hour Vital Signs Date Time Temp Pulse Resp B/P (MAP) Pulse Ox O2 Delivery O2 Flow Rate FiO2 03/08/19 04:00 97.5 93 18 114/79 (91) 97 03/08/19 04:00 91 03/08/19 00:00 97.7 97 18 117/76 (90) 98 03/08/19 00:00 100 03/07/19 21:00 Room Air Room Air 03/07/19 20:00 97.0 103 18 116/75 (89) 96 03/07/19 20:00 93 03/07/19 16:00 98.2 88 20 117/70 (86) 98 03/07/19 16:00 88 03/07/19 12:00 98.6 85 20 109/71 (84) 03/07/19 11:57 97 03/07/19 09:00 Room Air Room Air Intake and Output 03/07/19 03/08/19 19:00 07:00 Intake Total 240 ml 239 ml Output Total 200 ml 600 ml Balance 40 ml -361 ml Intake Oral 240 ml 239 ml Output Urine Total 200 ml 600 ml # Voids 5 # Bowel Movements 1 8 Microbiology Date/Time Source Procedure Growth Status 02/25/19 09:15 Blood Blood Culture - Final NO GROWTH AFTER 5 DAYS Complete 03/05/19 12:30 Body Fluid Gram Stain - Final Resulted 03/05/19 12:30 Body Fluid Body Fluid Culture - Preliminary NO GROWTH AFTER 72 HOURS Resulted 02/27/19 15:00 Sputum Expectorated Pneumocystis jiroveci Smear (DFA) - Final Complete 02/22/19 23:55 Stool Clostridium difficile Toxin Assay - Final Complete 02/25/19 09:05 Indwelling Cath Urine Culture - Final NO GROWTH AFTER 48 HOURS Complete Current Medications Medications (Trade) Dose Ordered Sig/Tonny Route PRN Reason Start Time Stop Time Status Last Admin Dose Admin Cefepime HCl 2 gm/ Dextrose 110 ml @ 220 mls/hr Q24H IV 03/03/19 09:00 03/09/19 08:59 03/07/19 10:17 Chlorhexidine Gluconate (Stephanie-Hex 2%) 1 applic DAILY@2000 TOPIC 03/04/19 20:00 04/03/19 19:59 03/07/19 21:00 Dextrose (Dextrose 50%) 25 ml Q30M PRN IV Hypoglycemia 03/02/19 17:45 03/16/19 16:14 Dextrose (Dextrose 50%) 50 ml Q30M PRN IV Hypoglycemia 03/02/19 17:45 03/16/19 16:14 Lactobacillus Acidophilus (Culturelle) 1 tab EVERY 12 HOURS ORAL 03/02/19 21:00 03/26/19 17:59 03/07/19 21:01 Lactulose (Cephulac) 10 gm THREE TIMES A DAY ORAL 03/02/19 18:00 04/01/19 12:59 03/07/19 17:14 Lansoprazole (Prevacid) 30 mg EVERY 12 HOURS ORAL 03/02/19 21:00 03/26/19 17:59 03/07/19 21:01 Levetiracetam (Keppra) 500 mg Q12HR ORAL 03/03/19 21:00 04/02/19 20:59 03/07/19 21:01 Metronidazole (Flagyl) 500 mg Q8HR ORAL 03/03/19 22:00 03/10/19 21:59 03/08/19 05:45 Micafungin Sodium 100 mg/Sodium Chloride 110 ml @ 110 mls/hr Q24H IVPB 03/03/19 10:30 03/10/19 10:29 03/07/19 12:18 Ondansetron HCl (Zofran) 4 mg Q6H PRN IVP Nausea & Vomiting 03/02/19 18:30 03/16/19 18:29 Rifaximin (Xifaxan) 550 mg EVERY 12 HOURS ORAL 03/02/19 21:00 03/09/19 20:59 03/07/19 21:01 Tamsulosin HCl (Flomax) 0.8 mg BEDTIME ORAL 03/05/19 21:30 04/04/19 21:29 03/07/19 21:01 Thiamine HCl (Vitamin B1) 100 mg DAILY ORAL 03/07/19 09:00 03/27/19 08:59 03/07/19 09:31 Vancomycin HCl (Vanco rx to dose) 1 ea DAILY PRN MISC Per rx protocol 03/03/19 09:00 03/17/19 12:59 Vancomycin HCl 1 gm/Dextrose 275 ml @ 183.708 mls/hr Q12HR IVPB 03/07/19 09:00 03/12/19 08:59 03/07/19 21:00 Laboratory Tests 03/08/19 05:45: White Blood Count 21.8H, Red Blood Count 2.84L, Hemoglobin 8.9L, Hematocrit 27.5L, Mean Corpuscular Volume 97, Mean Corpuscular Hemoglobin 31.4H, Mean Corpuscular Hemoglobin Concent 32.4, Red Cell Distribution Width 15.5H, Platelet Count 138L, Mean Platelet Volume 7.3, Neutrophils (%) (Auto) , Lymphocytes (%) (Auto) , Monocytes (%) (Auto) , Eosinophils (%) (Auto) , Basophils (%) (Auto) , Neutrophils % (Manual) [Pending], Lymphocytes % (Manual) [Pending], Platelet Estimate [Pending], Platelet Morphology [Pending], Sodium Level 131L, Potassium Level 4.0, Chloride Level 102, Carbon Dioxide Level 22, Anion Gap 7, Blood Urea Nitrogen 20H, Creatinine 1.7H, Estimat Glomerular Filtration Rate 51.0, Glucose Level 127H, Uric Acid 4.0, Calcium Level 7.9L, Phosphorus Level 3.5, Magnesium Level 1.7L, Total Bilirubin 6.4H, Direct Bilirubin 5.1H, Gamma Glutamyl Transpeptidase 343H, Aspartate Amino Transf (AST/ SGOT) 69H, Alanine Aminotransferase (ALT/SGPT) 31, Alkaline Phosphatase 183H, Total Protein 6.5, Albumin 1.4L, Globulin 5.1, Albumin/Globulin Ratio 0.3L Height (Feet): 5 Height (Inches): 5.00 Weight (Pounds): 169 Objective exam stable Jeremy Matta MD Mar 08, 2019 08:39
--- NOTE | 2019-03-08 09:00 | NUR ---
NURSE NOTES: Dr. Bailon at the nursing station, made aware of Na level, Mg level today. No order given at this time. Will continue to monitor.
[2019-03-08] MEDS: Lactulose 10gm/15ml UDC ORAL SCH ×3 (09:15→17:54)
[2019-03-08] MEDS: Vancomycin 1gm/D5W 275ml IVPB SCH ×2 (09:15)
[2019-03-08] MEDS: Cefepime HCl 2 GM in D5W 110 ML IV SCH (09:15)
[2019-03-08] MEDS: Thiamine 100mg tab ORAL SCH (09:15)
[2019-03-08] MEDS: Lactobacillus-GG tablet ORAL SCH ×2 (09:16→20:44)
--- NOTE | 2019-03-08 09:42 | Hematology/Onc Progress Note ---
Assessment/Plan Assessment/Plan # Bicytopenia with anemia likely due to Gi bleed -- stool occult blood +, requires further eval with gi, also with etoh withdrawal, also can be related to meds/abx, Hida shows Limited hepatic uptake and excretion, probably due to hepatocellular disease. Note that previous imaging studies suggest the presence of cirrhotic changes. --> anemia panel has been reviewed and results are acd --> peripheral smear reviewed and not noted to have blasts --> wbc remains elevated --> continue on folate 1mg po daily (LOW FOLATE) --> Flow cytometry shows no evidence of b-lymphoproliferative disorder --> Hep panel negative --> thoracentesis cytology negative for malignant cells --> plt trend 300k-->170k-->138k # Anemia of chronic disease, per anemia panel --> hgb trend 8-->7-->8-->9-->8.6-->7.7-->7.9-->8.3-->7.9->8.5-->9-->10-->9.9--> 7.7-->9.4-->8.9 --> may require gi eval when more stable with scope (EGD) --> transfuse if hgb <7 --> cont folic acid and thiamine # Leukocytosis due to Septic shock and severe Lactic acidosis on Levophed and broad-spectrum IV antibiotics. --> per ID care, continue abx --> pressor as needed --> flagyl, cefepime, carmen --> wbc trend: 34.9 -->28k-->35k-->17k-->20.7-->22 # Coagulopathy with a history of liver disease/cirrhosis (HX OF ETOH abuse) --> no evidence of gi bleed at this time --> vit K to be given sq on prn basis # Sinus tachycardia up to 170s. No evidence of acute mi --> This is likely due to sepsis and anemia, alcohol withdrawal --> Echo Nl EF 60% # Troponin leak, type 2 --> per cards # Respiratory failure on the vent. Failed weaning --> sbt trial per pulm, now extubated --> 02/27 the bronchoscope was advanced into both mainstem bronchi and subsegmental bronchi. There was increased secretions bilaterally, mucopurulent including mucus plugging of the right upper lobe, which was therapeutically aspirated. BAL specimen was sent. # Transaminitis with elev bilis --> as per gi with ast/alt high --> monitor for resol of sepsis # ETOH withdrawal --> recommend etoh cessation # Seizures with noncompliance Greatly appreciate consultation. Subjective HEENT: Denies: no symptoms, eye pain, blurred vision, tearing, double vision, ear pain, ear discharge, nose pain, nose congestion, throat pain, throat swelling, mouth pain, mouth swelling, other Cardiovascular: Denies: no symptoms, chest pain, edema, irregular heart rate, lightheadedness, palpitations, syncope, other Respiratory: Denies: no symptoms, cough, shortness of breath, SOB with excertion, SOB at rest, sputum, wheezing, other Gastrointestinal/Abdominal: Denies: no symptoms, abdomen distended, abdominal pain, black stools, tarry stools, blood in stool, constipated, diarrhea, difficulty swallowing, nausea, poor appetite, poor fluid intake, rectal bleeding , vomiting, other Genitourinary: Denies: no symptoms, burning, discharge, frequency, flank pain, hematuria, incontinence, pain, urgency, other Neurologic/Psychiatric: Denies: no symptoms, anxiety, depressed, emotional problems, headache, numbness, paresthesia, pre-existing deficit, seizure, tingling, tremors, weakness, other Endocrine: Denies: no symptoms, excessive sweating, flushing, intolerance to cold, intolerance to heat, increased hunger, increased thirst, increased urine, unexplained weight gain, unexplained weight loss, other Hematologic/Lymphatic: Denies: no symptoms, anemia, easy bleeding, easy bruising, adenopathy, other Allergies: Coded Allergies: No Known Allergies (Unverified , 02/10/15) Subjective 02/20: intubated, counts are better, on vent, sbt in process, no f/c, mag low 02/21: endoscopy on hold at this time, bloody stool, plt better, on abx 02/22: no events reported, remains intubated, no bleeding, plt better, k is low, repleted\ 02/23: remains in icu, letargic, flow cytometry showed no evidence of b- lymphoproliferative disorder, c-diif negative, labs reviewed, remains on levo 02/24: in icu, on vent, wbc at 32, id made aware. 02/25: icu, weaning off of vent, labs reviewed, continues on abx 02/26: no fc, no changes reported, wbc high, ongoing hida scan 02/27: no events, bronch to be done today, results pending 02/28: no f/c, restraints++, ogt was inserted 03/01: s/p extubation, self-extubated, otherwise on abx, off pressors 03/02: no events too report, labs have been reviewed, off abx, remains agitated 03/03 no fevers or chills, no changes, breathing better, less altered 03/05: no events, no bleeding, hgb 7.7, on RA only, sating well 03/06: hgb is low, otherwise without event, slightly improved, as per gi transaminitis, bilis are better 03/07: no overnight events, still jaundiced, delgado removed, h/h stable, thoracentesis cytology negative for malignant cells 03/08: patient is asleep, delgado draining well to gravity, no f/c, no major changes , seen by uro Objective Objective Current Medications Medications (Trade) Dose Ordered Sig/Tonny Route PRN Reason Start Time Stop Time Status Last Admin Dose Admin Cefepime HCl 2 gm/ Dextrose 110 ml @ 220 mls/hr Q24H IV 03/03/19 09:00 03/09/19 08:59 03/08/19 09:15 Chlorhexidine Gluconate (Stephanie-Hex 2%) 1 applic DAILY@1999 TOPIC 03/04/19 20:00 04/03/19 19:59 03/07/19 21:00 Dextrose (Dextrose 50%) 25 ml Q30M PRN IV Hypoglycemia 03/02/19 17:45 03/16/19 16:14 Dextrose (Dextrose 50%) 50 ml Q30M PRN IV Hypoglycemia 03/02/19 17:45 03/16/19 16:14 Lactobacillus Acidophilus (Culturelle) 1 tab EVERY 12 HOURS ORAL 03/02/19 21:00 03/26/19 17:59 03/08/19 09:16 Lactulose (Cephulac) 10 gm THREE TIMES A DAY ORAL 03/02/19 18:00 8/25/19 12:59 03/08/19 09:15 Lansoprazole (Prevacid) 30 mg EVERY 12 HOURS ORAL 03/02/19 21:00 03/26/19 17:59 03/08/19 09:16 Levetiracetam (Keppra) 500 mg Q12HR ORAL 03/03/19 21:00 04/02/19 20:59 03/08/19 09:15 Metronidazole (Flagyl) 500 mg Q8HR ORAL 03/03/19 22:00 03/10/19 21:59 03/08/19 05:45 Micafungin Sodium 100 mg/Sodium Chloride 110 ml @ 110 mls/hr Q24H IVPB 03/03/19 10:30 03/10/19 10:29 03/07/19 12:18 Ondansetron HCl (Zofran) 4 mg Q6H PRN IVP Nausea & Vomiting 03/02/19 18:30 03/16/19 18:29 Rifaximin (Xifaxan) 550 mg EVERY 12 HOURS ORAL 03/02/19 21:00 03/09/19 20:59 03/08/19 09:16 Tamsulosin HCl (Flomax) 0.8 mg BEDTIME ORAL 03/05/19 21:30 04/04/19 21:29 03/07/19 21:01 Thiamine HCl (Vitamin B1) 100 mg DAILY ORAL 03/07/19 09:00 03/27/19 08:59 03/08/19 09:15 Vancomycin HCl (Vanco rx to dose) 1 ea DAILY PRN MISC Per rx protocol 03/03/19 09:00 03/17/19 12:59 Vancomycin HCl 1 gm/Dextrose 275 ml @ 183.708 mls/hr Q12HR IVPB 03/07/19 09:00 03/12/19 08:59 03/08/19 09:15 Last 24 Hour Vital Signs Date Time Temp Pulse Resp B/P (MAP) Pulse Ox O2 Delivery O2 Flow Rate FiO2 03/08/19 04:00 97.5 93 18 114/79 (91) 97 03/08/19 04:00 91 03/08/19 00:00 97.7 97 18 117/76 (90) 98 03/08/19 00:00 100 03/07/19 21:00 Room Air Room Air 03/07/19 20:00 97.0 103 18 116/75 (89) 96 03/07/19 20:00 93 03/07/19 16:00 98.2 88 20 117/70 (86) 98 03/07/19 16:00 88 03/07/19 12:00 98.6 85 20 109/71 (84) 03/07/19 11:57 97 03/07/19 09:00 Room Air Room Air 03/07/19 08:00 96.6 88 20 122/79 (93) 93 03/07/19 07:57 95 03/07/19 07:37 97 Room Air 21 03/07/19 04:00 90 03/07/19 04:00 97.6 90 19 113/76 (88) 96 03/07/19 00:00 77 03/07/19 00:00 97.8 77 17 112/76 (88) 97 03/06/19 21:38 97 Room Air 21 03/06/19 21:00 Room Air Room Air 03/06/19 20:00 97.0 93 18 110/71 (84) 98 03/06/19 20:00 93 03/06/19 16:00 96.6 93 20 111/76 (88) 97 03/06/19 16:00 88 03/06/19 12:00 88 03/06/19 12:00 96.8 90 18 96/63 (74) 99 Intake and Output 03/07/19 03/08/19 19:00 07:00 Intake Total 240 ml 239 ml Output Total 200 ml 600 ml Balance 40 ml -361 ml Intake Oral 240 ml 239 ml Output Urine Total 200 ml 600 ml # Voids 5 # Bowel Movements 1 8 Labs Test 03/06/19 05:00 03/07/19 05:30 03/08/19 05:45 White Blood Count 18.2 K/UL (4.8-10.8) 20.7 K/UL (4.8-10.8) 21.8 K/UL (4.8-10.8) Red Blood Count 2.85 M/UL (4.70-6.10) 3.07 M/UL (4.70-6.10) 2.84 M/UL (4.70-6.10) Hemoglobin 8.9 G/DL (14.2-18.0) 9.4 G/DL (14.2-18.0) 8.9 G/DL (14.2-18.0) Hematocrit 27.5 % (42.0-52.0) 29.6 % (42.0-52.0) 27.5 % (42.0-52.0) Mean Corpuscular Volume 97 FL (80-99) 97 FL (80-99) 97 FL (80-99) Mean Corpuscular Hemoglobin 31.3 PG (27.0-31.0) 30.8 PG (27.0-31.0) 31.4 PG (27.0-31.0) Mean Corpuscular Hemoglobin Concent 32.4 G/DL (32.0-36.0) 31.9 G/DL (32.0-36.0) 32.4 G/DL (32.0-36.0) Red Cell Distribution Width 16.0 % (11.6-14.8) 15.7 % (11.6-14.8) 15.5 % (11.6-14.8) Platelet Count 174 K/UL (150-450) 160 K/UL (150-450) 138 K/UL (150-450) Mean Platelet Volume 6.5 FL (6.5-10.1) 6.9 FL (6.5-10.1) 7.3 FL (6.5-10.1) Neutrophils (%) (Auto) % (45.0-75.0) % (45.0-75.0) % (45.0-75.0) Lymphocytes (%) (Auto) % (20.0-45.0) % (20.0-45.0) % (20.0-45.0) Monocytes (%) (Auto) % (1.0-10.0) % (1.0-10.0) % (1.0-10.0) Eosinophils (%) (Auto) % (0.0-3.0) % (0.0-3.0) % (0.0-3.0) Basophils (%) (Auto) % (0.0-2.0) % (0.0-2.0) % (0.0-2.0) Differential Total Cells Counted 100 100 Neutrophils % (Manual) 74 % (45-75) 83 % (45-75) Lymphocytes % (Manual) 7 % (20-45) 4 % (20-45) Monocytes % (Manual) 11 % (1-10) 10 % (1-10) Eosinophils % (Manual) 4 % (0-3) 3 % (0-3) Basophils % (Manual) 1 % (0-2) 0 % (0-2) Band Neutrophils 3 % (0-8) 0 % (0-8) Platelet Estimate Adequate Adequate Platelet Morphology Normal Normal Anisocytosis 1+ 1+ Target Cells 2+ Pierre Cells 1+ Sodium Level 137 MMOL/L (136-145) 133 MMOL/L (136-145) 131 MMOL/L (136-145) Potassium Level 3.8 MMOL/L (3.5-5.1) 3.9 MMOL/L (3.5-5.1) 4.0 MMOL/L (3.5-5.1) Chloride Level 106 MMOL/L (98-107) 103 MMOL/L (98-107) 102 MMOL/L (98-107) Carbon Dioxide Level 24 MMOL/L (21-32) 23 MMOL/L (21-32) 22 MMOL/L (21-32) Anion Gap 7 mmol/L (5-15) 8 mmol/L (5-15) 7 mmol/L (5-15) Blood Urea Nitrogen 23 mg/dL (7-18) 21 mg/dL (7-18) 20 mg/dL (7-18) Creatinine 1.8 MG/DL (0.55-1.30) 1.8 MG/DL (0.55-1.30) 1.7 MG/DL (0.55-1.30) Estimat Glomerular Filtration Rate 47.8 mL/min (>60) 47.8 mL/min (>60) 51.0 mL/min (>60) Glucose Level 119 MG/DL (74-106) 132 MG/DL (74-106) 127 MG/DL (74-106) Uric Acid 4.0 MG/DL (2.6-7.2) 4.0 MG/DL (2.6-7.2) Calcium Level 7.6 MG/DL (8.5-10.1) 7.8 MG/DL (8.5-10.1) 7.9 MG/DL (8.5-10.1) Phosphorus Level 3.2 MG/DL (2.5-4.9) 3.5 MG/DL (2.5-4.9) Magnesium Level 1.4 MG/DL (1.8-2.4) 1.7 MG/DL (1.8-2.4) Total Bilirubin 7.2 MG/DL (0.2-1.0) 6.8 MG/DL (0.2-1.0) 6.4 MG/DL (0.2-1.0) Direct Bilirubin 5.9 MG/DL (0.0-0.3) 5.7 MG/DL (0.0-0.3) 5.1 MG/DL (0.0-0.3) Aspartate Amino Transf (AST/SGOT) 82 U/L (15-37) 81 U/L (15-37) 69 U/L (15-37) Alanine Aminotransferase (ALT/SGPT) 37 U/L (12-78) 36 U/L (12-78) 31 U/L (12-78) Alkaline Phosphatase 184 U/L (46-116) 188 U/L (46-116) 183 U/L (46-116) C-Reactive Protein, Quantitative 3.8 mg/dL (0.00-0.90) Total Protein 5.7 G/DL (6.4-8.2) 6.6 G/DL (6.4-8.2) 6.5 G/DL (6.4-8.2) Albumin 1.5 G/DL (3.4-5.0) 1.4 G/DL (3.4-5.0) 1.4 G/DL (3.4-5.0) Globulin 4.2 g/dL 5.2 g/dL 5.1 g/dL Albumin/Globulin Ratio 0.4 (1.0-2.7) 0.3 (1.0-2.7) 0.3 (1.0-2.7) Random Vancomycin Level 7.9 ug/mL 16.4 ug/mL Hypochromasia 2+ Gamma Glutamyl Transpeptidase 343 U/L (5-85) Height (Feet): 5 Height (Inches): 5.00 Weight (Pounds): 169 General Appearance: WD/WN Objective Gen: NAD HEENT: atraumatic, other - OGT Lungs: clear, ++RA sating 95% Heart: HR/BP unstable Abdomen: soft, non-tender, active bowel sounds Extremities: no cce, L femoral cath+, bilateral wrist restraints are off Robert Johnston MD Mar 08, 2019 09:42
[2019-03-08] MEDS ORDERED: Phytonadione 10 mg/mL 1ml amp SUBQ SCH (09:45)
--- NOTE | 2019-03-08 09:46 | Nephrology Progress Note ---
Assessment/Plan Problem List: (1) STEFANI (acute kidney injury) (2) Septic shock (3) Electrolyte and fluid disorder (4) Abnormal LFTs Assessment: fatty liver (5) Hyperbilirubinemia Assessment - STEFANI (acute kidney injury) - Septic shock - Lactic acid acidosis - Abnormal LFTs - Gastrointestinal bleed - Alcohol withdrawal seizure Plan mag IV trial Albumin and one liter D5w K and Mag and Phos supplement as needed discussed with RN PRN Albumin bolus for low bp Midodrine post extubation care start feeding Hemodynamic support Pressors / Fluids as needed Aim to correct the electrolyte and acid base imbalance monitor renal parameters gastric support switch dilantin to keppra as LFTs rising per orders Subjective ROS Limited/Unobtainable: No Constitutional: Reports: malaise Objective Objective Last 24 Hour Vital Signs Date Time Temp Pulse Resp B/P (MAP) Pulse Ox O2 Delivery O2 Flow Rate FiO2 03/08/19 08:00 97.3 105 18 103/72 (82) 96 03/08/19 04:00 97.5 93 18 114/79 (91) 97 03/08/19 04:00 91 03/08/19 00:00 97.7 97 18 117/76 (90) 98 03/08/19 00:00 100 03/07/19 21:00 Room Air Room Air 03/07/19 20:00 97.0 103 18 116/75 (89) 96 03/07/19 20:00 93 03/07/19 16:00 98.2 88 20 117/70 (86) 98 03/07/19 16:00 88 03/07/19 12:00 98.6 85 20 109/71 (84) 03/07/19 11:57 97 Intake and Output 03/07/19 03/08/19 19:00 07:00 Intake Total 240 ml 239 ml Output Total 200 ml 600 ml Balance 40 ml -361 ml Intake Oral 240 ml 239 ml Output Urine Total 200 ml 600 ml # Voids 5 # Bowel Movements 1 8 Laboratory Tests 03/08/19 05:45: White Blood Count 21.8H, Red Blood Count 2.84L, Hemoglobin 8.9L, Hematocrit 27.5L, Mean Corpuscular Volume 97, Mean Corpuscular Hemoglobin 31.4H, Mean Corpuscular Hemoglobin Concent 32.4, Red Cell Distribution Width 15.5H, Platelet Count 138L, Mean Platelet Volume 7.3, Neutrophils (%) (Auto) , Lymphocytes (%) (Auto) , Monocytes (%) (Auto) , Eosinophils (%) (Auto) , Basophils (%) (Auto) , Neutrophils % (Manual) [Pending], Lymphocytes % (Manual) [Pending], Platelet Estimate [Pending], Platelet Morphology [Pending], Sodium Level 131L, Potassium Level 4.0, Chloride Level 102, Carbon Dioxide Level 22, Anion Gap 7, Blood Urea Nitrogen 20H, Creatinine 1.7H, Estimat Glomerular Filtration Rate 51.0, Glucose Level 127H, Uric Acid 4.0, Calcium Level 7.9L, Phosphorus Level 3.5, Magnesium Level 1.7L, Total Bilirubin 6.4H, Direct Bilirubin 5.1H, Gamma Glutamyl Transpeptidase 343H, Aspartate Amino Transf (AST/ SGOT) 69H, Alanine Aminotransferase (ALT/SGPT) 31, Alkaline Phosphatase 183H, Total Protein 6.5, Albumin 1.4L, Globulin 5.1, Albumin/Globulin Ratio 0.3L Height (Feet): 5 Height (Inches): 5.00 Weight (Pounds): 169 Cardiovascular: normal rate Respiratory/Chest: lungs clear Abdomen: soft Objective no change Scotty Bailon MD Mar 08, 2019 09:46
--- NOTE | 2019-03-08 09:50 | NUR ---
NURSE NOTES: Dr. Cuevas made aware of Na , Mg level today. Per Dr. Cuevas 4 g Mg IV, and for Na Dr. Bailon will take care. Order noted, entered, carried out. Will continue to monitor.
--- NOTE | 2019-03-08 10:19 | GI Progress Note ---
Assessment/Plan Problems: (1) Coffee ground emesis ICD Codes: K92.0 - Hematemesis SNOMED: 56945044 (2) Episode of confusion ICD Codes: R41.0 - Disorientation, unspecified SNOMED: 37561469 (3) Gastrointestinal bleed ICD Codes: K92.2 - Gastrointestinal hemorrhage, unspecified SNOMED: 88842755 (4) Abnormal LFTs ICD Codes: R94.5 - Abnormal results of liver function studies SNOMED: 609741164 (5) Diarrhea ICD Codes: R19.7 - Diarrhea, unspecified SNOMED: 20767453 (6) Electrolyte and fluid disorder ICD Codes: E87.8 - Other disorders of electrolyte and fluid balance, not elsewhere classified SNOMED: 29378616 (7) Sepsis ICD Codes: A41.9 - Sepsis, unspecified organism SNOMED: 80311705 Status: progressing Status Narrative Discussed with Dr. Bloom. Assessment/Plan SUMMARY OF FINDINGS: 1. Medium-sized hiatal hernia. 2. Portal hypertensive gastropathy, status post biopsy. US reviewed >> liver disease/cirrhosis with ascites s/p paracentesis. Assessment - Resp failure - diarrhea - UGIB - abnormal LFT, negative hepatitis serologies, s/p U/S x 2 (no biliary dilation) , downtrending - ?cirrhosis and sepsis/hypoperfusion - h/o EtOH, possible early cirrhosis EBV IGM elevation Hepatitis Panel negative OB stool r/o GI bleed - positive RECOMMENDATIONS: Follow up path. Check HSV IgM Check CMV Quant PCR No evidence of any active GI bleeding at this time. consider colonoscopy if needed. low dose lactulose + Xifaxan PT evaluation prn transfusions follow labs The patient was seen and examined at bedside and all new and available data was reviewed in the patients chart. I agree with the above findings, impression and plan. (Patient seen earlier today. Signature stamp does not reflect patient encounter time.). - Jones Bloom MD Objective Last 24 Hour Vital Signs Date Time Temp Pulse Resp B/P (MAP) Pulse Ox O2 Delivery O2 Flow Rate FiO2 03/08/19 08:00 97.3 105 18 103/72 (82) 96 03/08/19 07:39 93 03/08/19 04:00 97.5 93 18 114/79 (91) 97 03/08/19 04:00 91 03/08/19 00:00 97.7 97 18 117/76 (90) 98 03/08/19 00:00 100 03/07/19 21:00 Room Air Room Air 03/07/19 20:00 97.0 103 18 116/75 (89) 96 03/07/19 20:00 93 03/07/19 16:00 98.2 88 20 117/70 (86) 98 03/07/19 16:00 88 03/07/19 12:00 98.6 85 20 109/71 (84) 03/07/19 11:57 97 Intake and Output 03/07/19 03/08/19 19:00 07:00 Intake Total 240 ml 239 ml Output Total 200 ml 600 ml Balance 40 ml -361 ml Intake Oral 240 ml 239 ml Output Urine Total 200 ml 600 ml # Voids 5 # Bowel Movements 1 8 Laboratory Tests Test 03/08/19 05:45 White Blood Count 21.8 K/UL (4.8-10.8) H Red Blood Count 2.84 M/UL (4.70-6.10) L Hemoglobin 8.9 G/DL (14.2-18.0) L Hematocrit 27.5 % (42.0-52.0) L Mean Corpuscular Volume 97 FL (80-99) Mean Corpuscular Hemoglobin 31.4 PG (27.0-31.0) H Mean Corpuscular Hemoglobin Concent 32.4 G/DL (32.0-36.0) Red Cell Distribution Width 15.5 % (11.6-14.8) H Platelet Count 138 K/UL (150-450) L Mean Platelet Volume 7.3 FL (6.5-10.1) Neutrophils (%) (Auto) % (45.0-75.0) Lymphocytes (%) (Auto) % (20.0-45.0) Monocytes (%) (Auto) % (1.0-10.0) Eosinophils (%) (Auto) % (0.0-3.0) Basophils (%) (Auto) % (0.0-2.0) Differential Total Cells Counted 100 Neutrophils % (Manual) 75 % (45-75) Lymphocytes % (Manual) 10 % (20-45) L Monocytes % (Manual) 10 % (1-10) Eosinophils % (Manual) 3 % (0-3) Basophils % (Manual) 2 % (0-2) Band Neutrophils 0 % (0-8) Platelet Estimate Decreased L Platelet Morphology Normal Hypochromasia 2+ Anisocytosis 1+ Sodium Level 131 MMOL/L (136-145) L Potassium Level 4.0 MMOL/L (3.5-5.1) Chloride Level 102 MMOL/L (98-107) Carbon Dioxide Level 22 MMOL/L (21-32) Anion Gap 7 mmol/L (5-15) Blood Urea Nitrogen 20 mg/dL (7-18) H Creatinine 1.7 MG/DL (0.55-1.30) H Estimat Glomerular Filtration Rate 51.0 mL/min (>60) Glucose Level 127 MG/DL (74-106) H Uric Acid 4.0 MG/DL (2.6-7.2) Calcium Level 7.9 MG/DL (8.5-10.1) L Phosphorus Level 3.5 MG/DL (2.5-4.9) Magnesium Level 1.7 MG/DL (1.8-2.4) L Total Bilirubin 6.4 MG/DL (0.2-1.0) H Direct Bilirubin 5.1 MG/DL (0.0-0.3) H Gamma Glutamyl Transpeptidase 343 U/L (5-85) H Aspartate Amino Transf (AST/SGOT) 69 U/L (15-37) H Alanine Aminotransferase (ALT/SGPT) 31 U/L (12-78) Alkaline Phosphatase 183 U/L (46-116) H Total Protein 6.5 G/DL (6.4-8.2) Albumin 1.4 G/DL (3.4-5.0) L Globulin 5.1 g/dL Albumin/Globulin Ratio 0.3 (1.0-2.7) L Height (Feet): 5 Height (Inches): 5.00 Weight (Pounds): 169 General Appearance: no apparent distress Cardiovascular: normal rate Respiratory/Chest: normal breath sounds, no respiratory distress Abdominal Exam: normal bowel sounds, non tender, soft Extremities: normal range of motion, non-tender Juno Naranjo NP Mar 08, 2019 10:19
[2019-03-08] MEDS: Micafungin 100 MG in NS 110 ML IVPB SCH (10:35)
--- NOTE | 2019-03-08 10:43 | Surgery Progress Note ---
Surgery Progress Note Subjective Procedure Performed \ Additional Comments jaundice improving leukocytosis lft's / t bili improved no complaints. tolerating diet Objective Last 24 Hour Vital Signs Date Time Temp Pulse Resp B/P (MAP) Pulse Ox O2 Delivery O2 Flow Rate FiO2 03/08/19 08:00 97.3 105 18 103/72 (82) 96 03/08/19 07:39 93 03/08/19 04:00 97.5 93 18 114/79 (91) 97 03/08/19 04:00 91 03/08/19 00:00 97.7 97 18 117/76 (90) 98 03/08/19 00:00 100 03/07/19 21:00 Room Air Room Air 03/07/19 20:00 97.0 103 18 116/75 (89) 96 03/07/19 20:00 93 03/07/19 16:00 98.2 88 20 117/70 (86) 98 03/07/19 16:00 88 03/07/19 12:00 98.6 85 20 109/71 (84) 03/07/19 11:57 97 I&O Intake and Output 03/07/19 03/08/19 19:00 07:00 Intake Total 240 ml 239 ml Output Total 200 ml 600 ml Balance 40 ml -361 ml Intake Oral 240 ml 239 ml Output Urine Total 200 ml 600 ml # Voids 5 # Bowel Movements 1 8 Cardiovascular: RSR Respiratory: clear Abdomen: soft, non-tender, present bowel sounds, non-distended Extremities: no edema, no tenderness, no cyanosis Laboratory Tests Test 03/08/19 05:45 White Blood Count 21.8 K/UL (4.8-10.8) H Red Blood Count 2.84 M/UL (4.70-6.10) L Hemoglobin 8.9 G/DL (14.2-18.0) L Hematocrit 27.5 % (42.0-52.0) L Mean Corpuscular Volume 97 FL (80-99) Mean Corpuscular Hemoglobin 31.4 PG (27.0-31.0) H Mean Corpuscular Hemoglobin Concent 32.4 G/DL (32.0-36.0) Red Cell Distribution Width 15.5 % (11.6-14.8) H Platelet Count 138 K/UL (150-450) L Mean Platelet Volume 7.3 FL (6.5-10.1) Neutrophils (%) (Auto) % (45.0-75.0) Lymphocytes (%) (Auto) % (20.0-45.0) Monocytes (%) (Auto) % (1.0-10.0) Eosinophils (%) (Auto) % (0.0-3.0) Basophils (%) (Auto) % (0.0-2.0) Differential Total Cells Counted 100 Neutrophils % (Manual) 75 % (45-75) Lymphocytes % (Manual) 10 % (20-45) L Monocytes % (Manual) 10 % (1-10) Eosinophils % (Manual) 3 % (0-3) Basophils % (Manual) 2 % (0-2) Band Neutrophils 0 % (0-8) Platelet Estimate Decreased L Platelet Morphology Normal Hypochromasia 2+ Anisocytosis 1+ Sodium Level 131 MMOL/L (136-145) L Potassium Level 4.0 MMOL/L (3.5-5.1) Chloride Level 102 MMOL/L (98-107) Carbon Dioxide Level 22 MMOL/L (21-32) Anion Gap 7 mmol/L (5-15) Blood Urea Nitrogen 20 mg/dL (7-18) H Creatinine 1.7 MG/DL (0.55-1.30) H Estimat Glomerular Filtration Rate 51.0 mL/min (>60) Glucose Level 127 MG/DL (74-106) H Uric Acid 4.0 MG/DL (2.6-7.2) Calcium Level 7.9 MG/DL (8.5-10.1) L Phosphorus Level 3.5 MG/DL (2.5-4.9) Magnesium Level 1.7 MG/DL (1.8-2.4) L Total Bilirubin 6.4 MG/DL (0.2-1.0) H Direct Bilirubin 5.1 MG/DL (0.0-0.3) H Gamma Glutamyl Transpeptidase 343 U/L (5-85) H Aspartate Amino Transf (AST/SGOT) 69 U/L (15-37) H Alanine Aminotransferase (ALT/SGPT) 31 U/L (12-78) Alkaline Phosphatase 183 U/L (46-116) H Total Protein 6.5 G/DL (6.4-8.2) Albumin 1.4 G/DL (3.4-5.0) L Globulin 5.1 g/dL Albumin/Globulin Ratio 0.3 (1.0-2.7) L Plan Problems: (1) Non-compliance Assessment & Plan: Noncompliance with seizure medication with known history of seizures Now had seizure Appreciate neurology input (2) Electrolyte and fluid disorder Assessment & Plan: Likely due to EtOH use and dehydration IV hydration Trend labs (3) Fever (4) Oral thrush (5) Diarrhea (6) Aspiration pneumonia (7) Seizure disorder (8) Tachycardia (9) Altered mental status (10) Alcohol withdrawal seizure (11) Alcohol withdrawal seizure (12) Episode of confusion (13) Coffee ground emesis (14) Gastrointestinal bleed Assessment & Plan: Patient on admission identified to have maroon-colored stool and coffee-ground emesis. Labs noted mild anemia with H&H trending down. No acute active bleed noted but given patient's history high risk for potential ulcers. PPI Appreciate GI input considerations for EGD once stable No evidence of pulmonary embolus, aortic dissection or aneurysm. Posterior basilar consolidation suspicious for pneumonia. Correlate clinically. Trace bilateral pleural effusions. Possible enterocolitis as described above. Please correlate clinically. Mild ascites Fatty liver Cholelithiasis with wall thickening. Cholecystitis not excluded. Small right inguinal hernia containing fat Extensive breathing motion artifact limiting evaluation. We will follow with recommendations thank you (15) Sinus tachycardia (16) Septic shock (17) Sepsis Assessment & Plan: Patient septic leukocytosis improved today lactic acidosis resolved anemia renal function declining electrolyte disturbance US noted picc out transition to oral meds extubated doing well US noted again. liver decompensated HIDA noted and likely cirrhosis delgado AM labs reordered s/p para micro negative improving overall (18) Lactic acid acidosis (19) STEFANI (acute kidney injury) (20) Abnormal LFTs (21) High anion gap metabolic acidosis Juanpablo Marcus Mar 08, 2019 10:43
--- NOTE | 2019-03-08 11:10 | Cardiac Electrophysiology PN ---
Assessment/Plan Assessment/Plan 1. Sinus tachycardia up to 170s. No myocardial infarction . Due to sepsis and anemia and alcohol withdrawal. EF 60%. In SR in 70s 2. S/P Septic shock and E Coli bacteremia, on 3 broad-spectrum IV antibiotics. 3. Troponin leak. Type 2. No CP 4. S/P Respiratory failure. Self extubated S/P Bronchoscopy and removal of mucus plug 5. ETOH withdrawal 6. Seizures with noncompliance. 7. Upper gi bleed. S/P EGD 8. Hematuria, resolved 9. Coffee ground emesis. EGD showed a. Medium-sized hiatal hernia. b. Portal hypertensive gastropathy, status post biopsy. 10. Liver cirrhosis with ascites. Billirubin down [address] Goldberg S/P Paracentesis 4.35 on 03/04. On Lactulose DW RN Subjective Subjective Alert off restraints. In SR in NAD Objective Last 24 Hour Vital Signs Date Time Temp Pulse Resp B/P (MAP) Pulse Ox O2 Delivery O2 Flow Rate FiO2 03/08/19 09:00 Room Air Room Air 03/08/19 08:00 97.3 105 18 103/72 (82) 96 03/08/19 07:39 93 03/08/19 04:00 97.5 93 18 114/79 (91) 97 03/08/19 04:00 91 03/08/19 00:00 97.7 97 18 117/76 (90) 98 03/08/19 00:00 100 03/07/19 21:00 Room Air Room Air 03/07/19 20:00 97.0 103 18 116/75 (89) 96 03/07/19 20:00 93 03/07/19 16:00 98.2 88 20 117/70 (86) 98 03/07/19 16:00 88 03/07/19 12:00 98.6 85 20 109/71 (84) 03/07/19 11:57 97 Intake and Output 03/07/19 03/08/19 19:00 07:00 Intake Total 240 ml 239 ml Output Total 200 ml 600 ml Balance 40 ml -361 ml Intake Oral 240 ml 239 ml Output Urine Total 200 ml 600 ml # Voids 5 # Bowel Movements 1 8 Laboratory Tests Test 03/08/19 05:45 White Blood Count 21.8 K/UL (4.8-10.8) H Red Blood Count 2.84 M/UL (4.70-6.10) L Hemoglobin 8.9 G/DL (14.2-18.0) L Hematocrit 27.5 % (42.0-52.0) L Mean Corpuscular Volume 97 FL (80-99) Mean Corpuscular Hemoglobin 31.4 PG (27.0-31.0) H Mean Corpuscular Hemoglobin Concent 32.4 G/DL (32.0-36.0) Red Cell Distribution Width 15.5 % (11.6-14.8) H Platelet Count 138 K/UL (150-450) L Mean Platelet Volume 7.3 FL (6.5-10.1) Neutrophils (%) (Auto) % (45.0-75.0) Lymphocytes (%) (Auto) % (20.0-45.0) Monocytes (%) (Auto) % (1.0-10.0) Eosinophils (%) (Auto) % (0.0-3.0) Basophils (%) (Auto) % (0.0-2.0) Differential Total Cells Counted 100 Neutrophils % (Manual) 75 % (45-75) Lymphocytes % (Manual) 10 % (20-45) L Monocytes % (Manual) 10 % (1-10) Eosinophils % (Manual) 3 % (0-3) Basophils % (Manual) 2 % (0-2) Band Neutrophils 0 % (0-8) Platelet Estimate Decreased L Platelet Morphology Normal Hypochromasia 2+ Anisocytosis 1+ Sodium Level 131 MMOL/L (136-145) L Potassium Level 4.0 MMOL/L (3.5-5.1) Chloride Level 102 MMOL/L (98-107) Carbon Dioxide Level 22 MMOL/L (21-32) Anion Gap 7 mmol/L (5-15) Blood Urea Nitrogen 20 mg/dL (7-18) H Creatinine 1.7 MG/DL (0.55-1.30) H Estimat Glomerular Filtration Rate 51.0 mL/min (>60) Glucose Level 127 MG/DL (74-106) H Uric Acid 4.0 MG/DL (2.6-7.2) Calcium Level 7.9 MG/DL (8.5-10.1) L Phosphorus Level 3.5 MG/DL (2.5-4.9) Magnesium Level 1.7 MG/DL (1.8-2.4) L Total Bilirubin 6.4 MG/DL (0.2-1.0) H Direct Bilirubin 5.1 MG/DL (0.0-0.3) H Gamma Glutamyl Transpeptidase 343 U/L (5-85) H Aspartate Amino Transf (AST/SGOT) 69 U/L (15-37) H Alanine Aminotransferase (ALT/SGPT) 31 U/L (12-78) Alkaline Phosphatase 183 U/L (46-116) H Total Protein 6.5 G/DL (6.4-8.2) Albumin 1.4 G/DL (3.4-5.0) L Globulin 5.1 g/dL Albumin/Globulin Ratio 0.3 (1.0-2.7) L Microbiology Date/Time Source Procedure Growth Status 03/05/19 12:30 Body Fluid Gram Stain - Final Resulted 03/05/19 12:30 Body Fluid Body Fluid Culture - Preliminary NO GROWTH AFTER 72 HOURS Resulted Objective HEAD AND NECK: No JV. Icteric sclera LUNGS: Decreased breath sounds. CARDIOVASCULAR: Regular S1 and S2 with no gallop or murmur. ABDOMEN: Soft. EXTREMITIES: No pitting edema. Fidencio Trevino MD Mar 08, 2019 11:10
--- NOTE | 2019-03-08 11:53 | NUR ---
ENGLISH LECTURERTRANSLATOR SI: RECURRENT SEIZURE,LEUKOCYTOSIS T. 97.3 HR 105 RR 18 B/P 103/72 RA 98% WBC 21.8 NA 131 BUN 20 CR 1.7 MG 1.7 GGT 343 AST 69 ALK PHOS 103 IS: MICAFUNGIN IV CEFEPIME IV VANCO IV FLAGYL PREVACID PO TELE STATUS
--- NOTE | 2019-03-08 11:57 | NUR ---
OCCUPATIONAL THERAPY ASSIST NOTES MESSAGE LEFT FOR ANTWON COREA FROM [employer] TO DISCUSS PLAN OF CARE.
--- NOTE | 2019-03-08 11:58 | NUR ---
RD ASSESSMENT & RECOMMENDATIONS SEE CARE ACTIVITY FOR COMPLETE ASSESSMENT DAILY ESTIMATED NEEDS: Needs based on Pulmonary, liver dysfunction, sepsis 72.7kg 25-30 kcals/kg 1325-9732 total kcals 1-2 g protein/kg 73-145 g total protein 25-30 mL/kg 4859-9145 total fluid mLs NUTRITION DIAGNOSIS: 1) Swallowing difficulty r/t respiratory status as evidenced by pt now s/p extubation, OGT removed, on pureed moist, NTL per BLEACHER LARD rec. 2) Altered nutrition related lab values r/t clinical condition as evidenced by pt w/ low lytes (K now wnl, phos now wnl, Mg 1.7), critically elev WBC-> trend down, elev ammonia-> now wnl, elev T bili (1.4->11.0-> 6.4 trend back down). CURRENT DIET:REGULAR, pureed moist, NTL PO DIET RECOMMENDATIONS: LOW NA/ texture per BLEACHER LARD ADDITIONAL RECOMMENDATIONS: 1) Obtain a CALIBRATED BED SCALE wt 2) Monitor lytes daily, replete as needed (low mag) 3) Monitor LFTs and T bili ( T bili 1.4 ->11.0 -> now trend back down 6.4 ) 4) BLEACHER LARD re-eval for possible texture upgrade for improved PO acceptance 5) MVI x 1 as supplement 6) Consider decreasing lactulose- NH3 wnl on 03/03, frequent diarrhea 7) Ensure Enlive BID w/ poor PO intake
[2019-03-08 12:00] VITALS: BP 114/75
--- NOTE | 2019-03-08 12:01 | NUR ---
SWALLOW/SPEECH THERAPY NOTE: ADDITIONAL H/O LIVER DZ AND CIRRHOSIS, ON GERD MEDS 03/05/19 CXR BILATERAL BASILAR ATELECTASIS POSS L SIDED PLEURAL FLUID AND CONSOLIDATION SWALLOW STATUS: NOT SEEN RECENTLY DUE TO SCHEDULE CONFLICTS. ALERT ABLE TO EXPRESS THAT HE DISLIKES NECTAR THICK LIQUIDS. PO TRIALS WITH THIN LIQUIDS VIA STRAW SEQUENTIAL SIPS, NOT ABLE TO SWALLOW ENTIRE 3 OUNCES WITHOUT STOPPING (COUGHED ONCE ABOUT [address] ON COUGHING WITH ONE SIP AT A TIME AND REFUSES NECTAR THICK LIQUIDS. PO TRIALS WITH PUREED GROSSLY FUNCTIONAL BUT DID CHEW IT A FEW SECONDS, NO ORAL RESIDUE NOR OVERT ASP. GROSSLY FUNCTIONAL WITH MASTICATED SOLID (1/2 CRACKER) BUT MISSING MOLARS (DISLIKES PUREED) HAS POSSIBLE SILENT ASP RISK DUE TO NEURO HX (ETOH ABUSE, SEIZURE HX THOUGH CT HEAD SCAN 07/31/17 NEG ACUTE BUT HAS CHRONIC SMALL WHITE MATTER ISCHEMIC CHANGES). INTAKE ON PUREED AND NECTAR THICK LIQUIDS 25-50% BUT HE DISLIKES THIS DIET/LIQUIDS. SPEECH STATUS: VOICE IS STILL HOARSE AND BREATHY(INTUBATED 02/16 TO 02/28/19 THEN ON CPAP. PLAN: STILL NEEDS A MODIFIED BARIUM SWALLOW STUDY IP OR OP IF DC TO FURTHER ASSESS SWALLOW, DETERMINE SILENT ASP RISK/ETIOLOGY, AND ATTEMPT TRIAL TX TECHNIQUES. CONTINUE WITH PO BUT CHANGE TO LOW NA (PER RD) AND UPGRADE TO MECH SOFT FINELY CHOPPED AND THIN LIQUIDS WITH ASPIRATION AND REFLUX PRECAUTIONS. WOULD BENEFIT FROM ENT CONSULT TO CHECK VOCAL FOLDS. LEFT MESSAGE WITH DR SANTIZO. CONTINUE WITH PLAN OF CARE IN SPEECH AND SWALLOW EVAL REPORTS. D/W RN HAE AND PT AND LEFT MESSAGE WITH DR SANTIZO
--- NOTE | 2019-03-08 14:08 | NUR ---
*-* INSURANCE *-* UPDATED CLINICAL AD REVIEWS HAVE BEEN FAXED TO: VANESSA COREA: ANTWON P- [phone] [phone]..............REVIEW/CLINICAL
[2019-03-08 16:00] VITALS: BP 105/72
--- NOTE | 2019-03-08 16:45 | Infectious Diseases Prog Note ---
Assessment/Plan Assessment/Plan ASSESSMENT AND PLAN: 1. sepsis, shock, e.coli bacteremia/uti, gram neg sepsis, pna/HCAP, ct noted, sirs, fevers, fungemia risk, s/p paracentesis, ? sbp, elevated lft's, persistent leukocytosis - rocephin and flagyl - surveillance cultures, monitor labs and chest x-ray - off vent , off pressors, clinically improving - monitor lft's - improved - picc line (03/05/19) 2. History of seizures. Workup per Neurology. 3. Acute kidney injury, likely secondary to sepsis. 4. The patient is anemic. 5. Severe sepsis with leukocytosis. 6. History of ETOH abuse. 7. No known allergies. 8. Family history is noncontributory. 9. MAR was noted. 10. Case was discussed with RN. 11. Social history is positive for ETOH abuse. 12. Poor prognosis. Subjective Constitutional: Reports: fatigue; Denies: fever HEENT: Reports: congestion - mild Respiratory: Denies: shortness of breath Cardiovascular: Denies: chest pain Gastrointestinal/Abdominal: Denies: nausea, vomiting Genitourinary: Reports: other - + delgado Neurologic: Denies: headache Psychiatric: Denies: depression Skin: Denies: rash Hematologic: Denies: bleeding Musculoskeletal: Denies: pain Allergies: Coded Allergies: No Known Allergies (Unverified , 02/10/15) Objective Vital Signs Last 24 Hour Vital Signs Date Time Temp Pulse Resp B/P (MAP) Pulse Ox O2 Delivery O2 Flow Rate FiO2 03/08/19 16:00 97.6 93 18 105/72 (83) 98 03/08/19 15:51 93 03/08/19 12:00 106 03/08/19 12:00 97.2 102 18 114/75 (88) 95 03/08/19 09:00 Room Air Room Air 03/08/19 08:00 97.3 105 18 103/72 (82) 96 03/08/19 07:39 93 03/08/19 04:00 97.5 93 18 114/79 (91) 97 03/08/19 04:00 91 03/08/19 00:00 97.7 97 18 117/76 (90) 98 03/08/19 00:00 100 03/07/19 21:00 Room Air Room Air 03/07/19 20:00 97.0 103 18 116/75 (89) 96 03/07/19 20:00 93 Height (Feet): 5 Height (Inches): 5.00 Weight (Pounds): 169 General Appearance: no acute distress HEENT: normocephalic, atraumatic, other - + icterus Respiratory/Chest: crackles/rales, rhonchi - bilaterally Cardiovascular: normal rate, regular rhythm, no JVD Abdomen: normal bowel sounds, soft, non tender, no organomegaly, non distended Genitourinary: normal external genitalia, other - + delgado - urine slt cloudy Extremities: no cyanosis Skin: no rash 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 Posterior basilar consolidation suspicious for pneumonia. Correlate clinically. Trace bilateral pleural effusions. Possible enterocolitis as described above. Please correlate clinically. Mild ascites Fatty liver Cholelithiasis with wall thickening. Cholecystitis not excluded. Small right inguinal hernia containing fat Extensive breathing motion artifact limiting evaluation. Chest x-ray - 03/05/19 - Comparison: 02/27/2019 Findings: Interim removal of endotracheal and nasogastric tubes. There is some atelectasis at both lung bases. There is likely some pleural fluid and possibly some consolidation at the left lung base. The heart size is normal the aorta is tortuous. There is a calcification at the inferior aspect of the left shoulder joint. Impression: Bilateral basilar atelectasis. Possible left-sided pleural fluid and consolidation Interim endotracheal and nasogastric extubation Microbiology Date/Time Source Procedure Growth Status 02/25/19 09:15 Blood Blood Culture - Final NO GROWTH AFTER 5 DAYS Complete 03/05/19 12:30 Body Fluid Gram Stain - Final Resulted 03/05/19 12:30 Body Fluid Body Fluid Culture - Preliminary NO GROWTH AFTER 72 HOURS Resulted 02/27/19 15:00 Sputum Expectorated Pneumocystis jiroveci Smear (DFA) - Final Complete 02/22/19 23:55 Stool Clostridium difficile Toxin Assay - Final Complete 02/25/19 09:05 Indwelling Cath Urine Culture - Final NO GROWTH AFTER 48 HOURS Complete Laboratory Tests Test 03/08/19 05:45 White Blood Count 21.8 K/UL (4.8-10.8) H Red Blood Count 2.84 M/UL (4.70-6.10) L Hemoglobin 8.9 G/DL (14.2-18.0) L Hematocrit 27.5 % (42.0-52.0) L Mean Corpuscular Volume 97 FL (80-99) Mean Corpuscular Hemoglobin 31.4 PG (27.0-31.0) H Mean Corpuscular Hemoglobin Concent 32.4 G/DL (32.0-36.0) Red Cell Distribution Width 15.5 % (11.6-14.8) H Platelet Count 138 K/UL (150-450) L Mean Platelet Volume 7.3 FL (6.5-10.1) Neutrophils (%) (Auto) % (45.0-75.0) Lymphocytes (%) (Auto) % (20.0-45.0) Monocytes (%) (Auto) % (1.0-10.0) Eosinophils (%) (Auto) % (0.0-3.0) Basophils (%) (Auto) % (0.0-2.0) Differential Total Cells Counted 100 Neutrophils % (Manual) 75 % (45-75) Lymphocytes % (Manual) 10 % (20-45) L Monocytes % (Manual) 10 % (1-10) Eosinophils % (Manual) 3 % (0-3) Basophils % (Manual) 2 % (0-2) Band Neutrophils 0 % (0-8) Platelet Estimate Decreased L Platelet Morphology Normal Hypochromasia 2+ Anisocytosis 1+ Sodium Level 131 MMOL/L (136-145) L Potassium Level 4.0 MMOL/L (3.5-5.1) Chloride Level 102 MMOL/L (98-107) Carbon Dioxide Level 22 MMOL/L (21-32) Anion Gap 7 mmol/L (5-15) Blood Urea Nitrogen 20 mg/dL (7-18) H Creatinine 1.7 MG/DL (0.55-1.30) H Estimat Glomerular Filtration Rate 51.0 mL/min (>60) Glucose Level 127 MG/DL (74-106) H Uric Acid 4.0 MG/DL (2.6-7.2) Calcium Level 7.9 MG/DL (8.5-10.1) L Phosphorus Level 3.5 MG/DL (2.5-4.9) Magnesium Level 1.7 MG/DL (1.8-2.4) L Total Bilirubin 6.4 MG/DL (0.2-1.0) H Direct Bilirubin 5.1 MG/DL (0.0-0.3) H Gamma Glutamyl Transpeptidase 343 U/L (5-85) H Aspartate Amino Transf (AST/SGOT) 69 U/L (15-37) H Alanine Aminotransferase (ALT/SGPT) 31 U/L (12-78) Alkaline Phosphatase 183 U/L (46-116) H Total Protein 6.5 G/DL (6.4-8.2) Albumin 1.4 G/DL (3.4-5.0) L Globulin 5.1 g/dL Albumin/Globulin Ratio 0.3 (1.0-2.7) L Current Medications Medications (Trade) Dose Ordered Sig/Tonny Route PRN Reason Start Time Stop Time Status Last Admin Dose Admin Cefepime HCl 2 gm/ Dextrose 110 ml @ 220 mls/hr Q24H IV 03/03/19 09:00 03/09/19 23:59 03/08/19 09:15 Chlorhexidine Gluconate (Stephanie-Hex 2%) 1 applic DAILY@2000 TOPIC 03/04/19 20:00 04/03/19 19:59 03/07/19 21:00 Dextrose (Dextrose 50%) 25 ml Q30M PRN IV Hypoglycemia 03/02/19 17:45 03/16/19 16:14 Dextrose (Dextrose 50%) 50 ml Q30M PRN IV Hypoglycemia 03/02/19 17:45 03/16/19 16:14 Lactobacillus Acidophilus (Culturelle) 1 tab EVERY 12 HOURS ORAL 03/02/19 21:00 03/26/19 17:59 03/08/19 09:16 Lactulose (Cephulac) 10 gm THREE TIMES A DAY ORAL 03/02/19 18:00 04/01/19 12:59 03/08/19 12:41 Lansoprazole (Prevacid) 30 mg EVERY 12 HOURS ORAL 03/02/19 21:00 03/26/19 17:59 03/08/19 09:16 Levetiracetam (Keppra) 500 mg Q12HR ORAL 03/03/19 21:00 04/02/19 20:59 03/08/19 09:15 Metronidazole (Flagyl) 500 mg Q8HR ORAL 03/03/19 22:00 03/10/19 21:59 03/08/19 14:29 Micafungin Sodium 100 mg/Sodium Chloride 110 ml @ 110 mls/hr Q24H IVPB 03/03/19 10:30 03/10/19 10:29 03/08/19 10:35 Ondansetron HCl (Zofran) 4 mg Q6H PRN IVP Nausea & Vomiting 03/02/19 18:30 03/16/19 18:29 Rifaximin (Xifaxan) 550 mg EVERY 12 HOURS ORAL 03/02/19 21:00 03/15/19 20:59 03/08/19 09:16 Tamsulosin HCl (Flomax) 0.8 mg BEDTIME ORAL 03/05/19 21:30 04/04/19 21:29 03/07/19 21:01 Thiamine HCl (Vitamin B1) 100 mg DAILY ORAL 03/07/19 09:00 03/27/19 08:59 03/08/19 09:15 Vancomycin HCl (Vanco rx to dose) 1 ea DAILY PRN MISC Per rx protocol 03/03/19 09:00 03/17/19 12:59 Vancomycin HCl 1 gm/Dextrose 275 ml @ 183.708 mls/hr Q12HR IVPB 03/07/19 09:00 03/12/19 08:59 03/08/19 09:15 Barry Plummer MD Mar 08, 2019 16:45
[2019-03-08] MEDS: cefTRIAXone 1 GM in D5W 50 ML IVPB SCH (18:12)
--- NOTE | 2019-03-08 19:30 | NUR ---
NURSE NOTES: Received patient from Shannon BALBUENA. Patient on room air, no s/s respiratory distress. Bilateral scds on lower extremities. PICC on DANIELLE, dressing intact, last changed 03/06/19. Bed in low position, locked, bed alarm on, call light within reach.
--- NOTE | 2019-03-08 19:38 | NUR ---
HAND-OFF: Report given to ESHA Merino.
[2019-03-08 20:00] VITALS: BP 110/72
[2019-03-08] MEDS: Dyna-Hex 2% Top Sol 2oz TOPIC SCH (20:44)
[2019-03-08] MEDS: Tamsulosin 0.4mg cap ORAL SCH (20:45)
--- NOTE | 2019-03-08 21:09 | General Progress Note ---
Assessment/Plan Status: progressing Assessment/Plan: 54 year old male with pMH of seizure disorder and etoh abuse admitted for seizures 2/2 non-compliance #severe septic shock likely 2/2 UTI - imprved #Gram negative bacteremia, now resolved by surveillance follow up blood culture #Acute respiratory failure requiting intubation s/p extubation 03/01 -abx per ID - Re culture ordered due to severe increase in the WBC from 15 to 26 to 29 thousand of unclear etiology - Hematology consult noted to be due to sepsis. - CBC serial. - CT 02/18 with atelectasis primarily - Diuresis -ID consult appreciated - Immunoglobulin and hepatitis panel negative. -abg prn - Reviewed CT chest/abd/pel -PICC placed # Transaminitis - improved #Ascites - paracenthesis 03/05 - f/u HIDA : non obstructive, findings c/w intracellular damage - ctm - appreciate GI and Sx input - us shows nodularity and chronic disease - hep panel negative - f/u GI # Hemoptysis - resolved - s/p bronch 02/27 with Therapeutic aspiration and mucus plug from the endotracheal tube in right upper lobe., - monitor ett output - monitor hgb #Lactic acidosis - resolved -2/2 severe shock/ poss abd source/ seizures - 2 D Echo on 02/16 with EF 65%. Discussed with cardiology and etiology likely sepsis and not cardiogenic -CTM -Fluid boluses completed. -Cont mIVF #Coagulopathy # Thrombocytopenia - 40,000 stable Monitor. No active bleeding toay. - Hematology consult with Dr. Johnston appreciated. Flow cytometry pending. -likely 2/2 hepatic injury 2/2 shock - Consumption coagulopathy. - Consider platelet transfusion if LESS than 30K with urine blood tinge color. #Coffee ground emesis likely in setting of GI bleed -H/H trending down. Monitor -GI consult appreciated -s/p EGD, no significant findings, f/u biopsies #Seizures 2/2 noncomplaint with AED -s/p phenytoin load in ED -Cont Phenytoin -Neurology consult appreciated -pending EEG - no seizures noted in last 24 hours -Ativan PRN for seizures -NPO -Seizure precautions #Hypokalemia - Replete as needed #hypophosphatemia - Repleted. #Hypomagnesemia -repleted -CTM # Urethral hemorrhage and clot evacuation - stable - appreciate urology consult - If recurrent hemorrhage will address. - Consider PRBC and Platelets if Hb < 8 or Plt < 30 K # Urinary retention PVR > 300 cc WILKINSON replaced 02/[address] ( in case of repeat hemorrhage ) - WILKINSON REMOVED 03/05 - VOIDING WELL D/w RN Code: Full Subjective Date patient seen: Mar 08, 2019 Allergies: Coded Allergies: No Known Allergies (Unverified , 02/10/15) Subjective No acute overnight events, more awake and alert today, urinating well with condom cath in place, WBC trending up, no diarrhea, has no complaints. Objective Last 24 Hour Vital Signs Date Time Temp Pulse Resp B/P (MAP) Pulse Ox O2 Delivery O2 Flow Rate FiO2 03/08/19 16:00 97.6 93 18 105/72 (83) 98 03/08/19 15:51 93 03/08/19 12:00 106 03/08/19 12:00 97.2 102 18 114/75 (88) 95 03/08/19 09:00 Room Air Room Air 03/08/19 08:00 97.3 105 18 103/72 (82) 96 03/08/19 07:39 93 03/08/19 04:00 97.5 93 18 114/79 (91) 97 03/08/19 04:00 91 03/08/19 00:00 97.7 97 18 117/76 (90) 98 03/08/19 00:00 100 03/07/19 21:00 Room Air Room Air Intake and Output 03/07/19 03/08/19 19:00 07:00 Intake Total 240 ml 239 ml Output Total 200 ml 600 ml Balance 40 ml -361 ml Intake Oral 240 ml 239 ml Output Urine Total 200 ml 600 ml # Voids 5 # Bowel Movements 1 8 Laboratory Tests 03/08/19 05:45: White Blood Count 21.8H, Red Blood Count 2.84L, Hemoglobin 8.9L, Hematocrit 27.5L, Mean Corpuscular Volume 97, Mean Corpuscular Hemoglobin 31.4H, Mean Corpuscular Hemoglobin Concent 32.4, Red Cell Distribution Width 15.5H, Platelet Count 138L, Mean Platelet Volume 7.3, Neutrophils (%) (Auto) , Lymphocytes (%) (Auto) , Monocytes (%) (Auto) , Eosinophils (%) (Auto) , Basophils (%) (Auto) , Differential Total Cells Counted 100, Neutrophils % ( Manual) 75, Lymphocytes % (Manual) 10L, Monocytes % (Manual) 10, Eosinophils % ( Manual) 3, Basophils % (Manual) 2, Band Neutrophils 0, Platelet Estimate DecreasedL, Platelet Morphology Normal, Hypochromasia 2+, Anisocytosis 1+, Sodium Level 131L, Potassium Level 4.0, Chloride Level 102, Carbon Dioxide Level 22, Anion Gap 7, Blood Urea Nitrogen 20H, Creatinine 1.7H, Estimat Glomerular Filtration Rate 51.0, Glucose Level 127H, Uric Acid 4.0, Calcium Level 7.9L, Phosphorus Level 3.5, Magnesium Level 1.7L, Total Bilirubin 6.4H, Direct Bilirubin 5.1H, Gamma Glutamyl Transpeptidase 343H, Aspartate Amino Transf (AST/SGOT) 69H, Alanine Aminotransferase (ALT/SGPT) 31, Alkaline Phosphatase 183H, Total Protein 6.5, Albumin 1.4L, Globulin 5.1, Albumin/ Globulin Ratio 0.3L Height (Feet): 5 Height (Inches): 5.00 Weight (Pounds): 169 Objective General appearance: extubated, calm Head: Normocephalic, without obvious abnormality, atraumatic Eyes: conjunctivae/corneas clear. PERRL, EOM's intact. Fundi benign Throat: Lips, mucosa, and tongue normal. Teeth and gums normal Neck: supple, symmetrical, trachea midline, no adenopathy, thyroid: not enlarged, symmetric, no tenderness/mass/nodules, no carotid bruit and no JVD Lungs: b/l air entry, no wheezing noted Heart: regular rate and rhythm, S1, S2 normal, no murmur, click, rub or gallop Abdomen: soft, non-tender. Bowel sounds normal. No masses, no organomegaly, distended Extremities: extremities normal, atraumatic, no cyanosis or edema Pulses: 2+ and symmetric Skin: Skin color, texture, turgor normal. No rashes or lesions Neurologic: Grossly normal Lyn Cuevas MD Mar 08, 2019 21:09
[2019-03-09] VITALS: BP 115/76
[2019-03-09 04:00] VITALS: BP 111/71
[2019-03-09 07:12] LABS: HEMATOCRIT 26.6 % (42.0-52.0); HEMOGLOBIN 8.7 G/DL (14.2-18.0); MEAN CORPUSCULAR VOLUME 96 FL (80-99); PLATELET COUNT 130 K/UL (150-450); RED BLOOD COUNT 2.77 M/UL (4.70-6.10); RED CELL DISTRIBUTION WIDTH 15.4 % (11.6-14.8)
[2019-03-09 07:18] LABS: ALANINE AMINOTRANSFERASE 32 U/L (12-78); ALBUMIN 1.4 G/DL (3.4-5.0); ALBUMIN/GLOBULIN RATIO 0.3 (1.0-2.7); ALKALINE PHOSPHATASE 188 U/L (46-116); ANION GAP 6 mmol/L (5-15); ASPARTATE AMINO TRANSFERASE 64 U/L (15-37); BILIRUBIN,TOTAL 5.6 MG/DL (0.2-1.0); BLOOD UREA NITROGEN 22 mg/dL (7-18); CALCIUM 7.7 MG/DL (8.5-10.1); CARBON DIOXIDE 22 MMOL/L (21-32); CHLORIDE 103 MMOL/L (98-107); CREATININE 1.8 MG/DL (0.55-1.30); POTASSIUM 4.2 MMOL/L (3.5-5.1); SODIUM 131 MMOL/L (136-145)
[2019-03-09 07:19] LABS: BILIRUBIN,DIRECT 4.5 MG/DL (0.0-0.3)
[2019-03-09 07:26] LABS: WHITE BLOOD COUNT 23.8 K/UL (4.8-10.8)
[2019-03-09 08:07] VITALS: BP 109/70
--- NOTE | 2019-03-09 08:32 | Urology Progress Note ---
Assessment/Plan Status: progressing Assessment/Plan: 1. Gross hematuria history, improved. 2. Urinary retention. 3. Probable neurogenic bladder. 4. Urinary tract infection history. 5. Sepsis history. 6. STEFANI. monitor clinically delgado out and voiding abx as ordered monitor renal flomax 0.8 mg Subjective Allergies: Coded Allergies: No Known Allergies (Unverified , 02/10/15) Subjective all noted, more alert, delgado out, voiding, slight bloody urethral discharge reported, but urine otherwise reported clear Objective Last 24 Hour Vital Signs Date Time Temp Pulse Resp B/P (MAP) Pulse Ox O2 Delivery O2 Flow Rate FiO2 03/09/19 08:07 97.4 108 18 109/70 (83) 98 96 03/09/19 04:00 105 03/09/19 04:00 97.7 96 18 111/71 (84) 98 03/09/19 00:00 97.6 94 18 115/76 (89) 94 03/09/19 00:00 94 03/08/19 21:00 Room Air Room Air 03/08/19 20:00 98 03/08/19 20:00 98.2 92 18 110/72 (85) 97 03/08/19 16:00 97.6 93 18 105/72 (83) 98 03/08/19 15:51 93 03/08/19 12:00 106 03/08/19 12:00 97.2 102 18 114/75 (88) 95 03/08/19 09:00 Room Air Room Air Intake and Output 03/08/19 03/09/19 19:00 07:00 Intake Total 240 ml Output Total 600 ml 400 ml Balance -360 ml -400 ml Intake Oral 240 ml Output Urine Total 600 ml 400 ml # Bowel Movements 1 1 Microbiology Date/Time Source Procedure Growth Status 02/25/19 09:15 Blood Blood Culture - Final NO GROWTH AFTER 5 DAYS Complete 03/05/19 12:30 Body Fluid Gram Stain - Final Complete 03/05/19 12:30 Body Fluid Body Fluid Culture - Final NO GROWTH Complete 02/27/19 15:00 Sputum Expectorated Pneumocystis jiroveci Smear (DFA) - Final Complete 02/22/19 23:55 Stool Clostridium difficile Toxin Assay - Final Complete 02/25/19 09:05 Indwelling Cath Urine Culture - Final NO GROWTH AFTER 48 HOURS Complete Current Medications Medications (Trade) Dose Ordered Sig/Tonny Route PRN Reason Start Time Stop Time Status Last Admin Dose Admin Ceftriaxone Sodium 1 gm/ Dextrose 50 ml @ 100 mls/hr Q24H IVPB 03/08/19 18:00 03/15/19 17:59 03/08/19 18:12 Chlorhexidine Gluconate (Stephanie-Hex 2%) 1 applic DAILY@2000 TOPIC 03/04/19 20:00 04/03/19 19:59 03/08/19 20:44 Dextrose (Dextrose 50%) 25 ml Q30M PRN IV Hypoglycemia 03/02/19 17:45 03/16/19 16:14 Dextrose (Dextrose 50%) 50 ml Q30M PRN IV Hypoglycemia 03/02/19 17:45 03/16/19 16:14 Lactobacillus Acidophilus (Culturelle) 1 tab EVERY 12 HOURS ORAL 03/02/19 21:00 03/26/19 17:59 03/08/19 20:44 Lactulose (Cephulac) 10 gm THREE TIMES A DAY ORAL 03/02/19 18:00 04/01/19 12:59 03/08/19 17:54 Lansoprazole (Prevacid) 30 mg EVERY 12 HOURS ORAL 03/02/19 21:00 03/26/19 17:59 03/08/19 20:45 Levetiracetam (Keppra) 500 mg Q12HR ORAL 03/03/19 21:00 04/02/19 20:59 03/08/19 20:45 Metronidazole 100 ml @ 100 mls/hr Q8HR IVPB 03/08/19 22:00 03/15/19 21:59 03/09/19 06:44 Ondansetron HCl (Zofran) 4 mg Q6H PRN IVP Nausea & Vomiting 03/02/19 18:30 03/16/19 18:29 Rifaximin (Xifaxan) 550 mg EVERY 12 HOURS ORAL 03/02/19 21:00 03/15/19 20:59 03/08/19 20:45 Tamsulosin HCl (Flomax) 0.8 mg BEDTIME ORAL 03/05/19 21:30 04/04/19 21:29 03/08/19 20:45 Thiamine HCl (Vitamin B1) 100 mg DAILY ORAL 03/07/19 09:00 03/27/19 08:59 03/08/19 09:15 Laboratory Tests 03/09/19 06:15: White Blood Count 23.8*H, Red Blood Count 2.77L, Hemoglobin 8.7L, Hematocrit 26.6L, Mean Corpuscular Volume 96, Mean Corpuscular Hemoglobin 31.3H, Mean Corpuscular Hemoglobin Concent 32.6, Red Cell Distribution Width 15.4H, Platelet Count 130L, Mean Platelet Volume 7.8, Neutrophils (%) (Auto) , Lymphocytes (%) (Auto) , Monocytes (%) (Auto) , Eosinophils (%) (Auto) , Basophils (%) (Auto) , Neutrophils % (Manual) [Pending], Lymphocytes % (Manual) [Pending], Platelet Estimate [Pending], Platelet Morphology [Pending], Sodium Level 131L, Potassium Level 4.2, Chloride Level 103, Carbon Dioxide Level 22, Anion Gap 6, Blood Urea Nitrogen 22H, Creatinine 1.8H, Estimat Glomerular Filtration Rate 47.8, Glucose Level 121H, Calcium Level 7.7L, Total Bilirubin 5.6H, Direct Bilirubin 4.5H, Aspartate Amino Transf (AST/SGOT) 64H, Alanine Aminotransferase (ALT/SGPT) 32, Alkaline Phosphatase 188H, Total Protein 6.7, Albumin 1.4L, Globulin 5.3, Albumin/Globulin Ratio 0.3L 03/09/19 07:55: Urine Color [Pending], Urine Appearance [Pending], Urine pH [Pending], Urine Specific [place] [Pending], Urine Protein [Pending], Urine Glucose (UA) [Pending ], Urine Ketones [Pending], Urine Blood [Pending], Urine Nitrite [Pending], Urine Bilirubin [Pending], Urine Urobilinogen [Pending], Urine Leukocyte Esterase [Pending] Height (Feet): 5 Height (Inches): 5.00 Weight (Pounds): 169 Objective exam stable Jeremy Matta MD Mar 09, 2019 08:32
--- NOTE | 2019-03-09 08:35 | NUR ---
RADIOLOGY DEPT., CHEST X-RAY DONE.-P.DYE
--- NOTE | 2019-03-09 08:47 | Hematology/Onc Progress Note ---
Assessment/Plan Assessment/Plan # Bicytopenia with anemia likely due to Gi bleed -- stool occult blood +, requires further eval with gi, also with etoh withdrawal, also can be related to meds/abx, Hida shows Limited hepatic uptake and excretion, probably due to hepatocellular disease. Note that previous imaging studies suggest the presence of cirrhotic changes. Also there is potential component of active infection of causing bicytopenia --> anemia panel has been reviewed and results are acd --> continue on folate 1mg po daily (LOW FOLATE) --> Flow cytometry shows no evidence of b-lymphoproliferative disorder --> Hep panel negative --> thoracentesis cytology negative for malignant cells --> plt trend 300k-->170k-->138k-->130k # Anemia of chronic disease, per anemia panel --> hgb trend 8-->7-->8-->9-->8.6-->7.7-->7.9-->8.3-->7.9->8.5-->9-->10-->9.9--> 7.7-->9.4-->8.9-->8.7 --> peripheral smear reviewed and not noted to have blasts --> may require gi eval when more stable with scope (EGD) --> transfuse if hgb <7 --> cont folic acid and thiamine # Leukocytosis due to Septic shock and severe Lactic acidosis on Levophed and broad-spectrum IV antibiotics. --> per ID care, continue abx --> pressor as needed --> flagyl, cefepime, carmen--> NOW flagyl, ceftriaxone --> wbc trend: 34.9 -->28k-->35k-->17k-->20.7-->22k-->24k # Coagulopathy with a history of liver disease/cirrhosis (HX OF ETOH abuse) --> no evidence of gi bleed at this time --> vit K to be given sq on prn basis # Sinus tachycardia up to 170s. No evidence of acute mi --> This is likely due to sepsis and anemia, alcohol withdrawal --> Echo Nl EF 60% # Troponin leak, type 2 --> per cards # Respiratory failure on the vent. Failed weaning --> sbt trial per pulm, now extubated --> 02/27 the bronchoscope was advanced into both mainstem bronchi and subsegmental bronchi. There was increased secretions bilaterally, mucopurulent including mucus plugging of the right upper lobe, which was therapeutically aspirated. BAL specimen was sent. # Transaminitis with elev bilis --> as per gi with ast/alt high --> monitor for resol of sepsis # ETOH withdrawal --> recommend etoh cessation # Seizures with noncompliance Greatly appreciate consultation. Subjective Constitutional: Denies: no symptoms, chills, fever, malaise, weakness, other HEENT: Denies: no symptoms, eye pain, blurred vision, tearing, double vision, ear pain, ear discharge, nose pain, nose congestion, throat pain, throat swelling, mouth pain, mouth swelling, other Respiratory: Denies: no symptoms, cough, shortness of breath, SOB with excertion, SOB at rest, sputum, wheezing, other Gastrointestinal/Abdominal: Denies: no symptoms, abdomen distended, abdominal pain, black stools, tarry stools, blood in stool, constipated, diarrhea, difficulty swallowing, nausea, poor appetite, poor fluid intake, rectal bleeding , vomiting, other Genitourinary: Denies: no symptoms, burning, discharge, frequency, flank pain, hematuria, incontinence, pain, urgency, other Neurologic/Psychiatric: Denies: no symptoms, anxiety, depressed, emotional problems, headache, numbness, paresthesia, pre-existing deficit, seizure, tingling, tremors, weakness, other Endocrine: Denies: no symptoms, excessive sweating, flushing, intolerance to cold, intolerance to heat, increased hunger, increased thirst, increased urine, unexplained weight gain, unexplained weight loss, other Allergies: Coded Allergies: No Known Allergies (Unverified , 02/10/15) Subjective 02/20: intubated, counts are better, on vent, sbt in process, no f/c, mag low 02/21: endoscopy on hold at this time, bloody stool, plt better, on abx 02/22: no events reported, remains intubated, no bleeding, plt better, k is low, repleted\ 02/23: remains in icu, letargic, flow cytometry showed no evidence of b- lymphoproliferative disorder, c-diif negative, labs reviewed, remains on levo 02/24: in icu, on vent, wbc at 32, id made aware. 02/25: icu, weaning off of vent, labs reviewed, continues on abx 02/26: no fc, no changes reported, wbc high, ongoing hida scan 02/27: no events, bronch to be done today, results pending 02/28: no f/c, restraints++, ogt was inserted 03/01: s/p extubation, self-extubated, otherwise on abx, off pressors 03/02: no events too report, labs have been reviewed, off abx, remains agitated 03/03 no fevers or chills, no changes, breathing better, less altered 03/05: no events, no bleeding, hgb 7.7, on RA only, sating well 03/06: hgb is low, otherwise without event, slightly improved, as per gi transaminitis, bilis are better 03/07: no overnight events, still jaundiced, delgado removed, h/h stable, thoracentesis cytology negative for malignant cells 03/08: patient is asleep, delgado draining well to gravity, no f/c, no major changes , seen by uro 03/09: gross hematuria has improved, seen by uro, no f/c Objective Objective Current Medications Medications (Trade) Dose Ordered Sig/Tonny Route PRN Reason Start Time Stop Time Status Last Admin Dose Admin Ceftriaxone Sodium 1 gm/ Dextrose 50 ml @ 100 mls/hr Q24H IVPB 03/08/19 18:00 03/15/19 17:59 03/08/19 18:12 Chlorhexidine Gluconate (Stephanie-Hex 2%) 1 applic DAILY@1999 TOPIC 03/04/19 20:00 04/03/19 19:59 03/08/19 20:44 Dextrose (Dextrose 50%) 25 ml Q30M PRN IV Hypoglycemia 03/02/19 17:45 03/16/19 16:14 Dextrose (Dextrose 50%) 50 ml Q30M PRN IV Hypoglycemia 03/02/19 17:45 03/16/19 16:14 Lactobacillus Acidophilus (Culturelle) 1 tab EVERY 12 HOURS ORAL 03/02/19 21:00 03/26/19 17:59 03/08/19 20:44 Lactulose (Cephulac) 10 gm THREE TIMES A DAY ORAL 03/02/19 18:00 04/01/19 12:59 03/08/19 17:54 Lansoprazole (Prevacid) 30 mg EVERY 12 HOURS ORAL 03/02/19 21:00 03/26/19 17:59 03/08/19 20:45 Levetiracetam (Keppra) 500 mg Q12HR ORAL 03/03/19 21:00 04/02/19 20:59 03/08/19 20:45 Metronidazole 100 ml @ 100 mls/hr Q8HR IVPB 03/08/19 22:00 03/15/19 21:59 03/09/19 06:44 Ondansetron HCl (Zofran) 4 mg Q6H PRN IVP Nausea & Vomiting 03/02/19 18:30 03/16/19 18:29 Rifaximin (Xifaxan) 550 mg EVERY 12 HOURS ORAL 03/02/19 21:00 03/15/19 20:59 03/08/19 20:45 Tamsulosin HCl (Flomax) 0.8 mg BEDTIME ORAL 03/05/19 21:30 04/04/19 21:29 03/08/19 20:45 Thiamine HCl (Vitamin B1) 100 mg DAILY ORAL 03/07/19 09:00 03/27/19 08:59 03/08/19 09:15 Last 24 Hour Vital Signs Date Time Temp Pulse Resp B/P (MAP) Pulse Ox O2 Delivery O2 Flow Rate FiO2 03/09/19 08:07 97.4 108 18 109/70 (83) 98 96 03/09/19 04:00 105 03/09/19 04:00 97.7 96 18 111/71 (84) 98 03/09/19 00:00 97.6 94 18 115/76 (89) 94 03/09/19 00:00 94 03/08/19 21:00 Room Air Room Air 03/08/19 20:00 98 03/08/19 20:00 98.2 92 18 110/72 (85) 97 03/08/19 16:00 97.6 93 18 105/72 (83) 98 03/08/19 15:51 93 03/08/19 12:00 106 03/08/19 12:00 97.2 102 18 114/75 (88) 95 03/08/19 09:00 Room Air Room Air 03/08/19 08:00 97.3 105 18 103/72 (82) 96 03/08/19 07:39 93 03/08/19 04:00 97.5 93 18 114/79 (91) 97 03/08/19 04:00 91 03/08/19 00:00 97.7 97 18 117/76 (90) 98 03/08/19 00:00 100 03/07/19 21:00 Room Air Room Air 03/07/19 20:00 97.0 103 18 116/75 (89) 96 03/07/19 20:00 93 03/07/19 16:00 98.2 88 20 117/70 (86) 98 03/07/19 16:00 88 03/07/19 12:00 98.6 85 20 109/71 (84) 03/07/19 11:57 97 03/07/19 09:00 Room Air Room Air Intake and Output 03/08/19 03/09/19 19:00 07:00 Intake Total 240 ml Output Total 600 ml 400 ml Balance -360 ml -400 ml Intake Oral 240 ml Output Urine Total 600 ml 400 ml # Bowel Movements 1 1 Labs Test 03/07/19 05:30 03/08/19 05:45 03/09/19 06:15 03/09/19 07:55 White Blood Count 20.7 K/UL (4.8-10.8) 21.8 K/UL (4.8-10.8) 23.8 K/UL (4.8-10.8) Red Blood Count 3.07 M/UL (4.70-6.10) 2.84 M/UL (4.70-6.10) 2.77 M/UL (4.70-6.10) Hemoglobin 9.4 G/DL (14.2-18.0) 8.9 G/DL (14.2-18.0) 8.7 G/DL (14.2-18.0) Hematocrit 29.6 % (42.0-52.0) 27.5 % (42.0-52.0) 26.6 % (42.0-52.0) Mean Corpuscular Volume 97 FL (80-99) 97 FL (80-99) 96 FL (80-99) Mean Corpuscular Hemoglobin 30.8 PG (27.0-31.0) 31.4 PG (27.0-31.0) 31.3 PG (27.0-31.0) Mean Corpuscular Hemoglobin Concent 31.9 G/DL (32.0-36.0) 32.4 G/DL (32.0-36.0) 32.6 G/DL (32.0-36.0) Red Cell Distribution Width 15.7 % (11.6-14.8) 15.5 % (11.6-14.8) 15.4 % (11.6-14.8) Platelet Count 160 K/UL (150-450) 138 K/UL (150-450) 130 K/UL (150-450) Mean Platelet Volume 6.9 FL (6.5-10.1) 7.3 FL (6.5-10.1) 7.8 FL (6.5-10.1) Neutrophils (%) (Auto) % (45.0-75.0) % (45.0-75.0) % (45.0-75.0) Lymphocytes (%) (Auto) % (20.0-45.0) % (20.0-45.0) % (20.0-45.0) Monocytes (%) (Auto) % (1.0-10.0) % (1.0-10.0) % (1.0-10.0) Eosinophils (%) (Auto) % (0.0-3.0) % (0.0-3.0) % (0.0-3.0) Basophils (%) (Auto) % (0.0-2.0) % (0.0-2.0) % (0.0-2.0) Differential Total Cells Counted 100 100 Neutrophils % (Manual) 83 % (45-75) 75 % (45-75) Lymphocytes % (Manual) 4 % (20-45) 10 % (20-45) Monocytes % (Manual) 10 % (1-10) 10 % (1-10) Eosinophils % (Manual) 3 % (0-3) 3 % (0-3) Basophils % (Manual) 0 % (0-2) 2 % (0-2) Band Neutrophils 0 % (0-8) 0 % (0-8) Platelet Estimate Adequate Decreased Platelet Morphology Normal Normal Hypochromasia 2+ 2+ Anisocytosis 1+ 1+ Sodium Level 133 MMOL/L (136-145) 131 MMOL/L (136-145) 131 MMOL/L (136-145) Potassium Level 3.9 MMOL/L (3.5-5.1) 4.0 MMOL/L (3.5-5.1) 4.2 MMOL/L (3.5-5.1) Chloride Level 103 MMOL/L (98-107) 102 MMOL/L (98-107) 103 MMOL/L (98-107) Carbon Dioxide Level 23 MMOL/L (21-32) 22 MMOL/L (21-32) 22 MMOL/L (21-32) Anion Gap 8 mmol/L (5-15) 7 mmol/L (5-15) 6 mmol/L (5-15) Blood Urea Nitrogen 21 mg/dL (7-18) 20 mg/dL (7-18) 22 mg/dL (7-18) Creatinine 1.8 MG/DL (0.55-1.30) 1.7 MG/DL (0.55-1.30) 1.8 MG/DL (0.55-1.30) Estimat Glomerular Filtration Rate 47.8 mL/min (>60) 51.0 mL/min (>60) 47.8 mL/min (>60) Glucose Level 132 MG/DL (74-106) 127 MG/DL (74-106) 121 MG/DL (74-106) Calcium Level 7.8 MG/DL (8.5-10.1) 7.9 MG/DL (8.5-10.1) 7.7 MG/DL (8.5-10.1) Total Bilirubin 6.8 MG/DL (0.2-1.0) 6.4 MG/DL (0.2-1.0) 5.6 MG/DL (0.2-1.0) Direct Bilirubin 5.7 MG/DL (0.0-0.3) 5.1 MG/DL (0.0-0.3) 4.5 MG/DL (0.0-0.3) Aspartate Amino Transf (AST/SGOT) 81 U/L (15-37) 69 U/L (15-37) 64 U/L (15-37) Alanine Aminotransferase (ALT/SGPT) 36 U/L (12-78) 31 U/L (12-78) 32 U/L (12-78) Alkaline Phosphatase 188 U/L (46-116) 183 U/L (46-116) 188 U/L (46-116) Total Protein 6.6 G/DL (6.4-8.2) 6.5 G/DL (6.4-8.2) 6.7 G/DL (6.4-8.2) Albumin 1.4 G/DL (3.4-5.0) 1.4 G/DL (3.4-5.0) 1.4 G/DL (3.4-5.0) Globulin 5.2 g/dL 5.1 g/dL 5.3 g/dL Albumin/Globulin Ratio 0.3 (1.0-2.7) 0.3 (1.0-2.7) 0.3 (1.0-2.7) Random Vancomycin Level 16.4 ug/mL Uric Acid 4.0 MG/DL (2.6-7.2) Phosphorus Level 3.5 MG/DL (2.5-4.9) Magnesium Level 1.7 MG/DL (1.8-2.4) Gamma Glutamyl Transpeptidase 343 U/L (5-85) Height (Feet): 5 Height (Inches): 5.00 Weight (Pounds): 169 Objective Gen: NAD HEENT: atraumatic, other - OGT Lungs: clear, ++RA sating 95% Heart: HR/BP unstable Abdomen: soft, non-tender, active bowel sounds Extremities: no cce, L femoral cath+, bilateral wrist restraints are off Robert Johnston MD Mar 09, 2019 08:47
[2019-03-09 08:52] LABS: APPEARANCE,URINE SLIGHTLY CLOUDY; BILIRUBIN, URINE NEGATIVE (NEGATIVE); COLOR,URINE BROWN; GLUCOSE, URINE (UA) NEGATIVE (NEGATIVE); KETONES,URINE NEGATIVE (NEGATIVE); LEUKOCYTE ESTERASE ,URINE 2+ (NEGATIVE); NITRITE,URINE NEGATIVE (NEGATIVE); PH,URINE 6 (4.5-8.0); PROTEIN,URINE 2+ (NEGATIVE); UROBILINOGEN,URINE NORMAL MG/DL (0.0-1.0)
--- NOTE | 2019-03-09 09:02 | Diagnostic Imaging Report ---
Indication: Shortness of breath Technique: One view of the chest Comparison: 03/05/2019 Findings: There is persistent left basilar infiltrate. There is persistent pleural fluid on the left. Hazy opacity the right lung base may indicate a small amount of pleural fluid as well. The heart size is normal. There is a left arm PICC. Findings are unchanged Impression: Unchanged, over 4 days, findings as above.
[2019-03-09] MEDS: Thiamine 100mg tab ORAL SCH (09:24)
[2019-03-09] MEDS: Lactulose 10gm/15ml UDC ORAL SCH ×3 (09:24→17:16)
[2019-03-09] MEDS: Lactobacillus-GG tablet ORAL SCH ×2 (09:25→20:25)
[2019-03-09] MEDS ORDERED: NS 275ml ONE (10:16)
[2019-03-09] MEDS ORDERED: Tubing IV Secondary IV ONE (10:16)
--- NOTE | 2019-03-09 10:44 | GI Progress Note ---
Assessment/Plan Problems: (1) Coffee ground emesis ICD Codes: K92.0 - Hematemesis SNOMED: 44626696 (2) Episode of confusion ICD Codes: R41.0 - Disorientation, unspecified SNOMED: 75608273 (3) Gastrointestinal bleed ICD Codes: K92.2 - Gastrointestinal hemorrhage, unspecified SNOMED: 50686971 (4) Abnormal LFTs ICD Codes: R94.5 - Abnormal results of liver function studies SNOMED: 005453767 (5) Diarrhea ICD Codes: R19.7 - Diarrhea, unspecified SNOMED: 83613783 (6) Electrolyte and fluid disorder ICD Codes: E87.8 - Other disorders of electrolyte and fluid balance, not elsewhere classified SNOMED: 61390252 (7) Sepsis ICD Codes: A41.9 - Sepsis, unspecified organism SNOMED: 57769910 Status: unchanged Status Narrative Discussed with Dr. Bloom Assessment/Plan SUMMARY OF FINDINGS: 1. Medium-sized hiatal hernia. 2. Portal hypertensive gastropathy, status post biopsy. US reviewed >> liver disease/cirrhosis with ascites s/p paracentesis. Assessment - Resp failure - diarrhea - UGIB abnormal LFT, negative hepatitis serologies, s/p U/S x 2 (no biliary dilation), downtrending - ?cirrhosis and sepsis/hypoperfusion - h/o EtOH, possible early cirrhosis EBV IGM elevation Check HSV IgM, negative Hepatitis Panel negative OB stool r/o GI bleed - positive Follow up path of EGD noted with portal hypertensive gastropathy. Negative for H. Pylori. RECOMMENDATIONS: Check CMV Quant PCR No evidence of any active GI bleeding at this time. consider colonoscopy if needed. low dose lactulose + Xifaxan PT evaluation prn transfusions follow labs The patient was seen and examined at bedside and all new and available data was reviewed in the patients chart. I agree with the above findings, impression and plan. (Patient seen earlier today. Signature stamp does not reflect patient encounter time.). - Jones Bloom MD Subjective Gastrointestinal/Abdominal: Reports: no symptoms Objective Last 24 Hour Vital Signs Date Time Temp Pulse Resp B/P (MAP) Pulse Ox O2 Delivery O2 Flow Rate FiO2 03/09/19 10:22 Room Air Room Air 03/09/19 08:07 97.4 108 18 109/70 (83) 98 96 03/09/19 04:00 105 03/09/19 04:00 97.7 96 18 111/71 (84) 98 03/09/19 00:00 97.6 94 18 115/76 (89) 94 03/09/19 00:00 94 03/08/19 21:00 Room Air Room Air 03/08/19 20:00 98 03/08/19 20:00 98.2 92 18 110/72 (85) 97 03/08/19 16:00 97.6 93 18 105/72 (83) 98 03/08/19 15:51 93 03/08/19 12:00 106 03/08/19 12:00 97.2 102 18 114/75 (88) 95 Intake and Output 03/08/19 03/09/19 19:00 07:00 Intake Total 240 ml Output Total 600 ml 400 ml Balance -360 ml -400 ml Intake Oral 240 ml Output Urine Total 600 ml 400 ml # Bowel Movements 1 1 Laboratory Tests Test 03/09/19 06:15 03/09/19 07:55 White Blood Count 23.8 K/UL (4.8-10.8) *H Red Blood Count 2.77 M/UL (4.70-6.10) L Hemoglobin 8.7 G/DL (14.2-18.0) L Hematocrit 26.6 % (42.0-52.0) L Mean Corpuscular Volume 96 FL (80-99) Mean Corpuscular Hemoglobin 31.3 PG (27.0-31.0) H Mean Corpuscular Hemoglobin Concent 32.6 G/DL (32.0-36.0) Red Cell Distribution Width 15.4 % (11.6-14.8) H Platelet Count 130 K/UL (150-450) L Mean Platelet Volume 7.8 FL (6.5-10.1) Neutrophils (%) (Auto) % (45.0-75.0) Lymphocytes (%) (Auto) % (20.0-45.0) Monocytes (%) (Auto) % (1.0-10.0) Eosinophils (%) (Auto) % (0.0-3.0) Basophils (%) (Auto) % (0.0-2.0) Differential Total Cells Counted 100 Neutrophils % (Manual) 73 % (45-75) Lymphocytes % (Manual) 8 % (20-45) L Monocytes % (Manual) 12 % (1-10) H Eosinophils % (Manual) 4 % (0-3) H Basophils % (Manual) 3 % (0-2) H Band Neutrophils 0 % (0-8) Platelet Estimate Decreased L Platelet Morphology Normal Red Blood Cell Morphology Normal Hypochromasia 2+ Sodium Level 131 MMOL/L (136-145) L Potassium Level 4.2 MMOL/L (3.5-5.1) Chloride Level 103 MMOL/L (98-107) Carbon Dioxide Level 22 MMOL/L (21-32) Anion Gap 6 mmol/L (5-15) Blood Urea Nitrogen 22 mg/dL (7-18) H Creatinine 1.8 MG/DL (0.55-1.30) H Estimat Glomerular Filtration Rate 47.8 mL/min (>60) Glucose Level 121 MG/DL (74-106) H Calcium Level 7.7 MG/DL (8.5-10.1) L Total Bilirubin 5.6 MG/DL (0.2-1.0) H Direct Bilirubin 4.5 MG/DL (0.0-0.3) H Aspartate Amino Transf (AST/SGOT) 64 U/L (15-37) H Alanine Aminotransferase (ALT/SGPT) 32 U/L (12-78) Alkaline Phosphatase 188 U/L (46-116) H Total Protein 6.7 G/DL (6.4-8.2) Albumin 1.4 G/DL (3.4-5.0) L Globulin 5.3 g/dL Albumin/Globulin Ratio 0.3 (1.0-2.7) L Urine Color Brown Urine Appearance Slightly cloudy Urine pH 6 (4.5-8.0) Urine Specific [place] 1.015 (1.005-1.035) Urine Protein 2+ (NEGATIVE) H Urine Glucose (UA) Negative (NEGATIVE) Urine Ketones Negative (NEGATIVE) Urine Blood 5+ (NEGATIVE) H Urine Nitrite Negative (NEGATIVE) Urine Bilirubin Negative (NEGATIVE) Urine Urobilinogen Normal MG/DL (0.0-1.0) Urine Leukocyte Esterase 2+ (NEGATIVE) H Urine RBC 40-60 /HPF (0 - 0) H Urine WBC 2-4 /HPF (0 - 0) Urine Squamous Epithelial Cells None /LPF (NONE/OCC) Urine Bacteria Few /HPF (NONE) Microbiology Date/Time Source Procedure Growth Status 03/08/19 21:20 Indwelling Cath Urine Culture - Preliminary NO GROWTH Resulted Height (Feet): 5 Height (Inches): 5.00 Weight (Pounds): 169 General Appearance: WD/WN, no apparent distress, alert Cardiovascular: normal rate Respiratory/Chest: normal breath sounds, no respiratory distress Abdominal Exam: normal bowel sounds, non tender, soft Extremities: normal range of motion, non-tender Juno Naranjo [employer] INST[employer]ER Mar 09, 2019 10:44
[2019-03-09 12:00] VITALS: BP 110/75
--- NOTE | 2019-03-09 13:33 | NUR ---
TELEHEALTH COORDINATORPROPERTY FIELD ADJUSTER SI: RECURRENT SEIZURES,LEUKOCYTOSIS T. 97.4 HR 108 RR 18 B/P 109/70 RA 98% WBC 23.8 BUN 22 CR 1.8 NA 131 IS: FLAGYL IV CEFTRIAXONE IV KEPPRA FLOMAX TELE STATUS
--- NOTE | 2019-03-09 14:00 | NUR ---
patient off the floor foe paracentesis
--- NOTE | 2019-03-09 14:16 | Pre-Procedure Note/Attestation ---
Pre-Procedure Note/Attestation Complete Prior to Procedure Planned Procedure: not applicable Procedure Narrative: paracentesis Indications for Procedure Pre-Operative Diagnosis: ascites Attestation I attest that I discussed the nature of the procedure; its benefits; risks and complications; and alternatives (and the risks and benefits of such alternatives ), prior to the procedure, with the patient (or the patient's legal human resources hr representative). I attest that, if there was a reasonable possibility of needing a blood transfusion, the patient (or the patient's legal human resources hr representative) was given the [facility] standardized written summary, pursuant to the Tushar Marianela Blood Safety Act ([place] Health and Safety Code # 1645, as amended). I attest that I re-evaluated the patient just prior to the surgery and that there has been no change in the patient's H&P, except as documented below: Jaguar Kearney MD Mar 09, 2019 14:16
--- NOTE | 2019-03-09 14:24 | NUR ---
*-* INSURANCE *-* UPDATED CLINICAL AD REVIEWS HAVE BEEN FAXED TO: VANESSA COREA: ANTWON [phone]..............REVIEW/CLINICAL
--- NOTE | 2019-03-09 14:26 | Brief Operative Note ---
Immediate Post Operative Note Operative Note Pre-op Diagnosis: ascites Procedure: paracentesis Post-op Diagnosis: same as pre-op Surgeon: Jonathon KEARNEY Anesthesia: local Specimen: none Complications: none Condition: stable Fluids: none Implant(s) used?: No Jaguar Kearney MD Mar 09, 2019 14:26
--- NOTE | 2019-03-09 14:28 | General Progress Note ---
Assessment/Plan Status: unchanged Assessment/Plan: 54 year old male with pMH of seizure disorder and etoh abuse admitted for seizures 2/2 non-compliance #severe septic shock likely 2/2 UTI - imprved #Gram negative bacteremia, now resolved by surveillance follow up blood culture #Acute respiratory failure requiting intubation s/p extubation 03/01 -abx per ID -WBC cont to increase - pending repeat CT abd/pel today - CBC serial. - CT 02/18 with atelectasis primarily - Diuresis -ID consult appreciated - Immunoglobulin and hepatitis panel negative. -abg prn - Reviewed CT chest/abd/pel -PICC placed # Transaminitis - improved #Ascites - paracenthesis 03/05 - repeat today - f/u HIDA : non obstructive, findings c/w intracellular damage - ctm - appreciate GI and Sx input - us shows nodularity and chronic disease - hep panel negative - f/u GI # Hemoptysis - resolved - s/p bronch 02/27 with Therapeutic aspiration and mucus plug from the endotracheal tube in right upper lobe., - monitor ett output - monitor hgb #Lactic acidosis - resolved -2/2 severe shock/ poss abd source/ seizures - 2 D Echo on 02/16 with EF 65%. Discussed with cardiology and etiology likely sepsis and not cardiogenic -CTM -Fluid boluses completed. -Cont mIVF #Coagulopathy # Thrombocytopenia - 40,000 stable Monitor. No active bleeding toay. - Hematology consult with Dr. Johnston appreciated. Flow cytometry pending. -likely 2/2 hepatic injury 2/2 shock - Consumption coagulopathy. - Consider platelet transfusion if LESS than 30K with urine blood tinge color. #Coffee ground emesis likely in setting of GI bleed -H/H trending down. Monitor -GI consult appreciated -s/p EGD, no significant findings, f/u biopsies #Seizures 2/2 noncomplaint with AED -s/p phenytoin load in ED -Cont Phenytoin -Neurology consult appreciated -pending EEG - no seizures noted in last 24 hours -Ativan PRN for seizures -NPO -Seizure precautions #Hypokalemia - Replete as needed #hypophosphatemia - Repleted. #Hypomagnesemia -repleted -CTM # Urethral hemorrhage and clot evacuation - stable - appreciate urology consult - If recurrent hemorrhage will address. - Consider PRBC and Platelets if Hb < 8 or Plt < 30 K # Urinary retention PVR > 300 cc WILKINSON replaced 02/[address] ( in case of repeat hemorrhage ) - WILKINSON REMOVED 03/05 - VOIDING WELL D/w RN Code: Full Subjective Allergies: Coded Allergies: No Known Allergies (Unverified , 02/10/15) Subjective mental status improved, WBC still elevated, repeating CT ABD pel today, urinating well, will have paracenthesis today, will need placement Objective Last 24 Hour Vital Signs Date Time Temp Pulse Resp B/P (MAP) Pulse Ox O2 Delivery O2 Flow Rate FiO2 03/09/19 10:22 Room Air Room Air 03/09/19 08:07 97.4 108 18 109/70 (83) 98 96 03/09/19 04:00 105 03/09/19 04:00 97.7 96 18 111/71 (84) 98 03/09/19 00:00 97.6 94 18 115/76 (89) 94 03/09/19 00:00 94 03/08/19 21:00 Room Air Room Air 03/08/19 20:00 98 03/08/19 20:00 98.2 92 18 110/72 (85) 97 03/08/19 16:00 97.6 93 18 105/72 (83) 98 03/08/19 15:51 93 Intake and Output 03/08/19 03/09/19 19:00 07:00 Intake Total 240 ml Output Total 600 ml 400 ml Balance -360 ml -400 ml Intake Oral 240 ml Output Urine Total 600 ml 400 ml # Bowel Movements 1 1 Laboratory Tests 03/09/19 06:15: White Blood Count 23.8*H, Red Blood Count 2.77L, Hemoglobin 8.7L, Hematocrit 26.6L, Mean Corpuscular Volume 96, Mean Corpuscular Hemoglobin 31.3H, Mean Corpuscular Hemoglobin Concent 32.6, Red Cell Distribution Width 15.4H, Platelet Count 130L, Mean Platelet Volume 7.8, Neutrophils (%) (Auto) , Lymphocytes (%) (Auto) , Monocytes (%) (Auto) , Eosinophils (%) (Auto) , Basophils (%) (Auto) , Differential Total Cells Counted 100, Neutrophils % ( Manual) 73, Lymphocytes % (Manual) 8L, Monocytes % (Manual) 12H, Eosinophils % ( Manual) 4H, Basophils % (Manual) 3H, Band Neutrophils 0, Platelet Estimate DecreasedL, Platelet Morphology Normal, Red Blood Cell Morphology Normal, Hypochromasia 2+, Sodium Level 131L, Potassium Level 4.2, Chloride Level 103, Carbon Dioxide Level 22, Anion Gap 6, Blood Urea Nitrogen 22H, Creatinine 1.8H, Estimat Glomerular Filtration Rate 47.8, Glucose Level 121H, Calcium Level 7.7L , Total Bilirubin 5.6H, Direct Bilirubin 4.5H, Aspartate Amino Transf (AST/SGOT ) 64H, Alanine Aminotransferase (ALT/SGPT) 32, Alkaline Phosphatase 188H, Total Protein 6.7, Albumin 1.4L, Globulin 5.3, Albumin/Globulin Ratio 0.3L 03/09/19 07:55: Urine Color Brown, Urine Appearance Slightly cloudy, Urine pH 6, Urine Specific [place] 1.015, Urine Protein 2+H, Urine Glucose (UA) Negative, Urine Ketones Negative, Urine Blood 5+H, Urine Nitrite Negative, Urine Bilirubin Negative, Urine Urobilinogen Normal, Urine Leukocyte Esterase 2+H, Urine RBC 40-60H, Urine WBC 2-4, Urine Squamous Epithelial Cells None, Urine Bacteria Few Height (Feet): 5 Height (Inches): 5.00 Weight (Pounds): 169 Objective General appearance: extubated, calm Head: Normocephalic, without obvious abnormality, atraumatic Eyes: conjunctivae/corneas clear. PERRL, EOM's intact. Fundi benign Throat: Lips, mucosa, and tongue normal. Teeth and gums normal Neck: supple, symmetrical, trachea midline, no adenopathy, thyroid: not enlarged, symmetric, no tenderness/mass/nodules, no carotid bruit and no JVD Lungs: b/l air entry, no wheezing noted Heart: regular rate and rhythm, S1, S2 normal, no murmur, click, rub or gallop Abdomen: soft, non-tender. Bowel sounds normal. No masses, no organomegaly, distended Extremities: extremities normal, atraumatic, no cyanosis or edema Pulses: 2+ and symmetric Skin: Skin color, texture, turgor normal. No rashes or lesions Neurologic: Grossly normal VuuLyn MD Mar 09, 2019 14:28
--- NOTE | 2019-03-09 14:52 | NUR ---
Patient requested to sign AMA at 9:20am. Called Dr. Gentile x 2 about AMA. Patient started screaming and crying. Patient removed monitoring and evaluation advisor and IV access. 10:15 am- Security was called. Nursing planning supervisor Alexa and Advertising Copywriter Jamilah was made aware. Charge nurse Seb is aware. Dr. Perdomo was notified by Dr. Henao. RN called Dr. Perdomo at 11:14am and received orders for medications- Ativan 2mg IM INJ x 1 and Benadryl 25 mg IM INJ x 1. Notified 11:57am that mediation was not effective. Patient is still agitated and yelling. Patient made attempts to leave. Patient asked when is the doctor arriving soon. In addition, RN asked at NOON if patient should be placed in restraints. Dr. Perdomo asked to contact Neurology. The RN called Dr. Stapleton's emergency line x 2. The RN called Dr. Henao's emergency line about patient refused CXR, removed IV line, and refused medications, refused accucheck, and refused monitoring and evaluation advisor. Patient was disruptive on unit. Visitors and other units were stating complaints about noise and asked What is going on? Patient was cursing as security officers. Patient threw water basing and hospital supplies at health staff. Multiple health staff made multiple attempts to calm patient. Dr. Perdomo was notified about Dr. Stapleton had no call back and patient's noncompliance with staying. Charge nurse and RN asked Dr. Perdomo about ETA. Dr. Perdomo states she will come as soon as possible. 12:15 - Alexa, nursing planning supervisor notified Dr. Henao about patient leaving AMA. Patient signed AMA form at 12:28 pm. Patient had no IV access, and monitoring and evaluation advisor was removed. Patient belonging checklist was signed. Patient received her medications from pharmacy. Patient left at 12:30pm. Patient stated she is taking a cab to her house. 12:33pm Dr. Perdomo states to put patient on restraints. Notified Dr. Perdomo that patient left AMA @1230 PM. Addendum: 03/09/19 at 1455 by JEWELS CORONADO RN RN wrong patient the above note not belong to patient Geovanni Brar
--- NOTE | 2019-03-09 15:11 | NUR ---
patient back from paracentesis 2.95 ml out per report vital signs stable
--- NOTE | 2019-03-09 15:44 | Surgery Progress Note ---
Surgery Progress Note Subjective Procedure Performed \ Symptoms: improved Objective Last 24 Hour Vital Signs Date Time Temp Pulse Resp B/P (MAP) Pulse Ox O2 Delivery O2 Flow Rate FiO2 03/09/19 10:22 Room Air Room Air 03/09/19 08:07 97.4 108 18 109/70 (83) 98 96 03/09/19 04:00 105 03/09/19 04:00 97.7 96 18 111/71 (84) 98 03/09/19 00:00 97.6 94 18 115/76 (89) 94 03/09/19 00:00 94 03/08/19 21:00 Room Air Room Air 03/08/19 20:00 98 03/08/19 20:00 98.2 92 18 110/72 (85) 97 03/08/19 16:00 97.6 93 18 105/72 (83) 98 03/08/19 15:51 93 I&O Intake and Output 03/08/19 03/09/19 19:00 07:00 Intake Total 240 ml Output Total 600 ml 400 ml Balance -360 ml -400 ml Intake Oral 240 ml Output Urine Total 600 ml 400 ml # Bowel Movements 1 1 Cardiovascular: RSR Respiratory: clear Abdomen: soft, distended, non-tender, present bowel sounds Extremities: no edema, no tenderness, no cyanosis Laboratory Tests Test 03/09/19 06:15 03/09/19 07:55 White Blood Count 23.8 K/UL (4.8-10.8) *H Red Blood Count 2.77 M/UL (4.70-6.10) L Hemoglobin 8.7 G/DL (14.2-18.0) L Hematocrit 26.6 % (42.0-52.0) L Mean Corpuscular Volume 96 FL (80-99) Mean Corpuscular Hemoglobin 31.3 PG (27.0-31.0) H Mean Corpuscular Hemoglobin Concent 32.6 G/DL (32.0-36.0) Red Cell Distribution Width 15.4 % (11.6-14.8) H Platelet Count 130 K/UL (150-450) L Mean Platelet Volume 7.8 FL (6.5-10.1) Neutrophils (%) (Auto) % (45.0-75.0) Lymphocytes (%) (Auto) % (20.0-45.0) Monocytes (%) (Auto) % (1.0-10.0) Eosinophils (%) (Auto) % (0.0-3.0) Basophils (%) (Auto) % (0.0-2.0) Differential Total Cells Counted 100 Neutrophils % (Manual) 73 % (45-75) Lymphocytes % (Manual) 8 % (20-45) L Monocytes % (Manual) 12 % (1-10) H Eosinophils % (Manual) 4 % (0-3) H Basophils % (Manual) 3 % (0-2) H Band Neutrophils 0 % (0-8) Platelet Estimate Decreased L Platelet Morphology Normal Red Blood Cell Morphology Normal Hypochromasia 2+ Sodium Level 131 MMOL/L (136-145) L Potassium Level 4.2 MMOL/L (3.5-5.1) Chloride Level 103 MMOL/L (98-107) Carbon Dioxide Level 22 MMOL/L (21-32) Anion Gap 6 mmol/L (5-15) Blood Urea Nitrogen 22 mg/dL (7-18) H Creatinine 1.8 MG/DL (0.55-1.30) H Estimat Glomerular Filtration Rate 47.8 mL/min (>60) Glucose Level 121 MG/DL (74-106) H Calcium Level 7.7 MG/DL (8.5-10.1) L Total Bilirubin 5.6 MG/DL (0.2-1.0) H Direct Bilirubin 4.5 MG/DL (0.0-0.3) H Aspartate Amino Transf (AST/SGOT) 64 U/L (15-37) H Alanine Aminotransferase (ALT/SGPT) 32 U/L (12-78) Alkaline Phosphatase 188 U/L (46-116) H Total Protein 6.7 G/DL (6.4-8.2) Albumin 1.4 G/DL (3.4-5.0) L Globulin 5.3 g/dL Albumin/Globulin Ratio 0.3 (1.0-2.7) L Urine Color Brown Urine Appearance Slightly cloudy Urine pH 6 (4.5-8.0) Urine Specific [place] 1.015 (1.005-1.035) Urine Protein 2+ (NEGATIVE) H Urine Glucose (UA) Negative (NEGATIVE) Urine Ketones Negative (NEGATIVE) Urine Blood 5+ (NEGATIVE) H Urine Nitrite Negative (NEGATIVE) Urine Bilirubin Negative (NEGATIVE) Urine Urobilinogen Normal MG/DL (0.0-1.0) Urine Leukocyte Esterase 2+ (NEGATIVE) H Urine RBC 40-60 /HPF (0 - 0) H Urine WBC 2-4 /HPF (0 - 0) Urine Squamous Epithelial Cells None /LPF (NONE/OCC) Urine Bacteria Few /HPF (NONE) Plan Problems: (1) Non-compliance Assessment & Plan: Noncompliance with seizure medication with known history of seizures Now had seizure Appreciate neurology input (2) Electrolyte and fluid disorder Assessment & Plan: Likely due to EtOH use and dehydration IV hydration Trend labs (3) Fever (4) Oral thrush (5) Diarrhea (6) Aspiration pneumonia (7) Seizure disorder (8) Tachycardia (9) Altered mental status (10) Alcohol withdrawal seizure (11) Alcohol withdrawal seizure (12) Episode of confusion (13) Coffee ground emesis (14) Gastrointestinal bleed Assessment & Plan: Patient on admission identified to have maroon-colored stool and coffee-ground emesis. Labs noted mild anemia with H&H trending down. No acute active bleed noted but given patient's history high risk for potential ulcers. PPI Appreciate GI input considerations for EGD once stable No evidence of pulmonary embolus, aortic dissection or aneurysm. Posterior basilar consolidation suspicious for pneumonia. Correlate clinically. Trace bilateral pleural effusions. Possible enterocolitis as described above. Please correlate clinically. Mild ascites Fatty liver Cholelithiasis with wall thickening. Cholecystitis not excluded. Small right inguinal hernia containing fat Extensive breathing motion artifact limiting evaluation. We will follow with recommendations thank you (15) Sinus tachycardia (16) Septic shock (17) Sepsis Assessment & Plan: Patient septic leukocytosis improved today lactic acidosis resolved anemia renal function declining electrolyte disturbance US noted picc out transition to oral meds extubated doing well US noted again. liver decompensated HIDA noted and likely cirrhosis delgado AM labs reordered s/p para micro negative improving overall (18) Lactic acid acidosis (19) STEFANI (acute kidney injury) (20) Abnormal LFTs (21) High anion gap metabolic acidosis Juanpablo Marcus Mar 09, 2019 15:44
--- NOTE | 2019-03-09 15:48 | Cardiac Electrophysiology PN ---
Assessment/Plan Assessment/Plan 1. Sinus tachycardia up to 170s. No myocardial infarction . Due to sepsis and anemia and alcohol withdrawal. EF 60%. In SR in 70s 2. S/P Septic shock and E Coli bacteremia, on 3 broad-spectrum IV antibiotics. 3. Troponin leak. Type 2. No CP 4. S/P Respiratory failure. Self extubated S/P Bronchoscopy and removal of mucus plug 5. ETOH withdrawal 6. Seizures with noncompliance. 7. Upper gi bleed. S/P EGD 8. Hematuria, resolved 9. Coffee ground emesis. EGD showed a. Medium-sized hiatal hernia. b. Portal hypertensive gastropathy, status post biopsy. 10. Liver cirrhosis with ascites. Billirubin down [address] Goldberg S/P Paracentesis 4.35 on 03/04. On Lactulose S/P Paracentesis today again CONSTANCE RN Subjective Subjective Alert off restraints. In SR in NAD. Just had Paracentesis. Awaiting CT abdomen and Pelvis Objective Last 24 Hour Vital Signs Date Time Temp Pulse Resp B/P (MAP) Pulse Ox O2 Delivery O2 Flow Rate FiO2 03/09/19 10:22 Room Air Room Air 03/09/19 08:07 97.4 108 18 109/70 (83) 98 96 03/09/19 04:00 105 03/09/19 04:00 97.7 96 18 111/71 (84) 98 03/09/19 00:00 97.6 94 18 115/76 (89) 94 03/09/19 00:00 94 03/08/19 21:00 Room Air Room Air 03/08/19 20:00 98 03/08/19 20:00 98.2 92 18 110/72 (85) 97 03/08/19 16:00 97.6 93 18 105/72 (83) 98 03/08/19 15:51 93 Intake and Output 03/08/19 03/09/19 19:00 07:00 Intake Total 240 ml Output Total 600 ml 400 ml Balance -360 ml -400 ml Intake Oral 240 ml Output Urine Total 600 ml 400 ml # Bowel Movements 1 1 Laboratory Tests Test 03/09/19 06:15 03/09/19 07:55 White Blood Count 23.8 K/UL (4.8-10.8) *H Red Blood Count 2.77 M/UL (4.70-6.10) L Hemoglobin 8.7 G/DL (14.2-18.0) L Hematocrit 26.6 % (42.0-52.0) L Mean Corpuscular Volume 96 FL (80-99) Mean Corpuscular Hemoglobin 31.3 PG (27.0-31.0) H Mean Corpuscular Hemoglobin Concent 32.6 G/DL (32.0-36.0) Red Cell Distribution Width 15.4 % (11.6-14.8) H Platelet Count 130 K/UL (150-450) L Mean Platelet Volume 7.8 FL (6.5-10.1) Neutrophils (%) (Auto) % (45.0-75.0) Lymphocytes (%) (Auto) % (20.0-45.0) Monocytes (%) (Auto) % (1.0-10.0) Eosinophils (%) (Auto) % (0.0-3.0) Basophils (%) (Auto) % (0.0-2.0) Differential Total Cells Counted 100 Neutrophils % (Manual) 73 % (45-75) Lymphocytes % (Manual) 8 % (20-45) L Monocytes % (Manual) 12 % (1-10) H Eosinophils % (Manual) 4 % (0-3) H Basophils % (Manual) 3 % (0-2) H Band Neutrophils 0 % (0-8) Platelet Estimate Decreased L Platelet Morphology Normal Red Blood Cell Morphology Normal Hypochromasia 2+ Sodium Level 131 MMOL/L (136-145) L Potassium Level 4.2 MMOL/L (3.5-5.1) Chloride Level 103 MMOL/L (98-107) Carbon Dioxide Level 22 MMOL/L (21-32) Anion Gap 6 mmol/L (5-15) Blood Urea Nitrogen 22 mg/dL (7-18) H Creatinine 1.8 MG/DL (0.55-1.30) H Estimat Glomerular Filtration Rate 47.8 mL/min (>60) Glucose Level 121 MG/DL (74-106) H Calcium Level 7.7 MG/DL (8.5-10.1) L Total Bilirubin 5.6 MG/DL (0.2-1.0) H Direct Bilirubin 4.5 MG/DL (0.0-0.3) H Aspartate Amino Transf (AST/SGOT) 64 U/L (15-37) H Alanine Aminotransferase (ALT/SGPT) 32 U/L (12-78) Alkaline Phosphatase 188 U/L (46-116) H Total Protein 6.7 G/DL (6.4-8.2) Albumin 1.4 G/DL (3.4-5.0) L Globulin 5.3 g/dL Albumin/Globulin Ratio 0.3 (1.0-2.7) L Urine Color Brown Urine Appearance Slightly cloudy Urine pH 6 (4.5-8.0) Urine Specific [place] 1.015 (1.005-1.035) Urine Protein 2+ (NEGATIVE) H Urine Glucose (UA) Negative (NEGATIVE) Urine Ketones Negative (NEGATIVE) Urine Blood 5+ (NEGATIVE) H Urine Nitrite Negative (NEGATIVE) Urine Bilirubin Negative (NEGATIVE) Urine Urobilinogen Normal MG/DL (0.0-1.0) Urine Leukocyte Esterase 2+ (NEGATIVE) H Urine RBC 40-60 /HPF (0 - 0) H Urine WBC 2-4 /HPF (0 - 0) Urine Squamous Epithelial Cells None /LPF (NONE/OCC) Urine Bacteria Few /HPF (NONE) Microbiology Date/Time Source Procedure Growth Status 03/08/19 21:20 Indwelling Cath Urine Culture - Preliminary NO GROWTH Resulted Objective HEAD AND NECK: No JV. Icteric sclera LUNGS: Decreased breath sounds. CARDIOVASCULAR: Regular S1 and S2 with no gallop or murmur. ABDOMEN: Soft. EXTREMITIES: No pitting edema. Fidencio Trevino MD Mar 09, 2019 15:48
[2019-03-09 16:00] VITALS: BP 111/74
--- NOTE | 2019-03-09 16:19 | Nephrology Progress Note ---
Assessment/Plan Problem List: (1) STEFANI (acute kidney injury) (2) Seizure disorder (3) Septic shock (4) Abnormal LFTs Plan abxs follow labs Discussed with sister at bed side Subjective Subjective In NAD Objective Objective Last 24 Hour Vital Signs Date Time Temp Pulse Resp B/P (MAP) Pulse Ox O2 Delivery O2 Flow Rate FiO2 03/09/19 10:22 Room Air Room Air 03/09/19 08:07 97.4 108 18 109/70 (83) 98 96 03/09/19 04:00 105 03/09/19 04:00 97.7 96 18 111/71 (84) 98 03/09/19 00:00 97.6 94 18 115/76 (89) 94 03/09/19 00:00 94 03/08/19 21:00 Room Air Room Air 03/08/19 20:00 98 03/08/19 20:00 98.2 92 18 110/72 (85) 97 Intake and Output 03/08/19 03/09/19 19:00 07:00 Intake Total 240 ml Output Total 600 ml 400 ml Balance -360 ml -400 ml Intake Oral 240 ml Output Urine Total 600 ml 400 ml # Bowel Movements 1 1 Laboratory Tests 03/09/19 06:15: White Blood Count 23.8*H, Red Blood Count 2.77L, Hemoglobin 8.7L, Hematocrit 26.6L, Mean Corpuscular Volume 96, Mean Corpuscular Hemoglobin 31.3H, Mean Corpuscular Hemoglobin Concent 32.6, Red Cell Distribution Width 15.4H, Platelet Count 130L, Mean Platelet Volume 7.8, Neutrophils (%) (Auto) , Lymphocytes (%) (Auto) , Monocytes (%) (Auto) , Eosinophils (%) (Auto) , Basophils (%) (Auto) , Differential Total Cells Counted 100, Neutrophils % ( Manual) 73, Lymphocytes % (Manual) 8L, Monocytes % (Manual) 12H, Eosinophils % ( Manual) 4H, Basophils % (Manual) 3H, Band Neutrophils 0, Platelet Estimate DecreasedL, Platelet Morphology Normal, Red Blood Cell Morphology Normal, Hypochromasia 2+, Sodium Level 131L, Potassium Level 4.2, Chloride Level 103, Carbon Dioxide Level 22, Anion Gap 6, Blood Urea Nitrogen 22H, Creatinine 1.8H, Estimat Glomerular Filtration Rate 47.8, Glucose Level 121H, Calcium Level 7.7L , Total Bilirubin 5.6H, Direct Bilirubin 4.5H, Aspartate Amino Transf (AST/SGOT ) 64H, Alanine Aminotransferase (ALT/SGPT) 32, Alkaline Phosphatase 188H, Total Protein 6.7, Albumin 1.4L, Globulin 5.3, Albumin/Globulin Ratio 0.3L 03/09/19 07:55: Urine Color Brown, Urine Appearance Slightly cloudy, Urine pH 6, Urine Specific [place] 1.015, Urine Protein 2+H, Urine Glucose (UA) Negative, Urine Ketones Negative, Urine Blood 5+H, Urine Nitrite Negative, Urine Bilirubin Negative, Urine Urobilinogen Normal, Urine Leukocyte Esterase 2+H, Urine RBC 40-60H, Urine WBC 2-4, Urine Squamous Epithelial Cells None, Urine Bacteria Few Height (Feet): 5 Height (Inches): 5.00 Weight (Pounds): 169 Cardiovascular: normal rate Respiratory/Chest: lungs clear Extremities: other - no edema Jmaes Nick MD Mar 09, 2019 16:19
[2019-03-09] MEDS: cefTRIAXone 1 GM in D5W 50 ML IVPB SCH (17:21)
--- NOTE | 2019-03-09 17:32 | Diagnostic Imaging Report ---
Indications: Ascites Technique: Ultrasound used to localize optimal puncture site. Sterile prepping and draping . Local anesthesia with 1% lidocaine. Under real-time ultrasound guidance, puncture peritoneal space using paracentesis needle. Stylet removed. Catheter placed to vacuum bottle suction. Total 3 liters of fluid aspirated. Patient tolerated procedure well, without immediate complication. Findings: Followup sonography demonstrates complete resolution of peritoneal fluid. Impression: Successful ultrasound-guided paracentesis, yielding 3 liters of fluid
--- NOTE | 2019-03-09 19:17 | NUR ---
HAND-OFF: Report given to Wilber BALBUENA.
--- NOTE | 2019-03-09 19:50 | NUR ---
NURSE NOTES: Patient back from CT. On room air, no signs of respiratory distress. Patient off NPO status, gave patient dinner tray, patient refused everything except ensure. Condom catheter intact and patent with dark eneida output. PICC on DANIELLE, dressing intact. Bilateral SCDs on. Bed in low position, locked, bed alarm on, call light within reach.
[2019-03-09 20:00] VITALS: BP 116/77
[2019-03-09] MEDS: Dyna-Hex 2% Top Sol 2oz TOPIC SCH (20:20)
[2019-03-09] MEDS: Tamsulosin 0.4mg cap ORAL SCH (20:25)
--- NOTE | 2019-03-09 21:13 | Diagnostic Imaging Report ---
Indication: Abdominal pain Technique: Continuous helical transaxial imaging of the abdomen and pelvis was obtained from the lung bases to the pubic symphysis. No intravenous contrast was administered. Coronal 2-D reformats were also obtained. Automatic Exposure Control was utilized. Total Dose length Product (DLP): 913.[address] Dose Index Volume (CTDIvol): 15.47 mGy Comparison: none Findings: There is moderate generalized bronchiectasis at both lung bases. This is associated with intervening parenchymal groundglass opacification and interstitial particularly opacities. A portion of the disease is likely chronic and may be due to fibrosis. Superimposed pneumonia is not excluded. The esophagus is distended. Gallstones are present. There is mild ascites. There is nodularity of the liver surface indicative of cirrhosis/chronic disease. Anasarca noted. Faint calcifications are noted in the central portions of the kidneys probably small nonobstructive stones bowel gas pattern is nonobstructive. There is a small right inguinal hernia containing fat. There is no hydronephrosis. Mild calcification of aorta demonstrated. Small mesenteric and retroperitoneal nodes are present. There is mild thickening of the wall of the cecum which is not completely distended. Possibility of colitis not excluded. Please correlate clinically. The stomach is mostly nondistended. There is prominence of the wall as such. There is generalized mesenteric stranding which may be associated with ascites. IMPRESSION: Evidence of chronic liver disease/cirrhosis. Ascites may be associated with portal hypertension. Cholelithiasis Thickening of the wall of the cecum questionable for mild colitis. Correlate clinically. Faint calcifications within the central portions of both kidneys consistent with tiny nonobstructive stones. Anasarca Trace basilar pleural effusions. Suggestion of fibrosis involving the posterior basal aspects of both lungs. Traction bronchiectasis noted. Small right inguinal hernia containing fat. The CT scanner at [facility] is accredited by the [employer] and the scans are performed using dose optimization techniques as appropriate to a performed exam including Automatic Exposure control.
[2019-03-10] VITALS: BP 99/66
[2019-03-10 04:00] VITALS: BP 104/69
--- NOTE | 2019-03-10 07:30 | NUR ---
HAND-OFF: Report given to Juan Pablo BALBUENA.
--- NOTE | 2019-03-10 07:41 | NUR ---
NURSE NOTES: Received patient from ESHA Merino. Patient is resting in bed, eating his breakfast. On room air, no s/s respiratory distress. Bilateral SCD's on lower extremities. PICC on Left upper arm, dressing intact. Bed in low position, locked, bed alarm on, call light and bed side table within reach. Will continue plan of care.
[2019-03-10 07:43] LABS: HEMATOCRIT 25.6 % (42.0-52.0); HEMOGLOBIN 8.3 G/DL (14.2-18.0); MEAN CORPUSCULAR VOLUME 97 FL (80-99); PLATELET COUNT 137 K/UL (150-450); RED BLOOD COUNT 2.63 M/UL (4.70-6.10); RED CELL DISTRIBUTION WIDTH 15.3 % (11.6-14.8); WHITE BLOOD COUNT 21.4 K/UL (4.8-10.8)
[2019-03-10 08:00] VITALS: BP 107/72
[2019-03-10 08:03] LABS: ALANINE AMINOTRANSFERASE 28 U/L (12-78); ALBUMIN 1.3 G/DL (3.4-5.0); ALBUMIN/GLOBULIN RATIO 0.2 (1.0-2.7); ALKALINE PHOSPHATASE 184 U/L (46-116); ANION GAP 6 mmol/L (5-15); ASPARTATE AMINO TRANSFERASE 61 U/L (15-37); BILIRUBIN,TOTAL 4.4 MG/DL (0.2-1.0); BLOOD UREA NITROGEN 22 mg/dL (7-18); CALCIUM 7.9 MG/DL (8.5-10.1); CARBON DIOXIDE 25 MMOL/L (21-32); CHLORIDE 103 MMOL/L (98-107); CREATININE 1.7 MG/DL (0.55-1.30); POTASSIUM 4.6 MMOL/L (3.5-5.1); SODIUM 133 MMOL/L (136-145)
[2019-03-10 08:20] LABS: BILIRUBIN,DIRECT 3.8 MG/DL (0.0-0.3)
[2019-03-10] MEDS: Lactobacillus-GG tablet ORAL SCH ×2 (08:43→21:00)
[2019-03-10] MEDS: Lactulose 10gm/15ml UDC ORAL SCH ×3 (08:43→17:38)
[2019-03-10] MEDS: Thiamine 100mg tab ORAL SCH (08:43)
--- NOTE | 2019-03-10 09:33 | Urology Progress Note ---
Assessment/Plan Status: unchanged Assessment/Plan: 1. Gross hematuria history, improved. 2. Urinary retention. 3. Probable neurogenic bladder. 4. Urinary tract infection history. 5. Sepsis history. 6. STEFANI. monitor clinically delgado out and voiding abx as ordered monitor renal flomax 0.8 mg Subjective Allergies: Coded Allergies: No Known Allergies (Unverified , 02/10/15) Subjective all noted, voiding, paracentesis done yest Objective Last 24 Hour Vital Signs Date Time Temp Pulse Resp B/P (MAP) Pulse Ox O2 Delivery O2 Flow Rate FiO2 03/10/19 08:00 97.8 105 20 107/72 (84) 96 03/10/19 04:00 98.1 102 18 104/69 (81) 97 03/10/19 04:00 100 03/10/19 03:49 100 03/10/19 00:00 97.5 103 18 99/66 (77) 98 03/09/19 23:31 105 03/09/19 21:00 Room Air Room Air 03/09/19 20:18 99 03/09/19 20:00 98.2 102 18 116/77 (90) 98 03/09/19 16:00 94 03/09/19 16:00 97.2 95 18 111/74 (86) 98 96 03/09/19 12:00 98 03/09/19 12:00 97.2 106 20 110/75 (87) 98 96 03/09/19 10:22 Room Air Room Air Intake and Output 03/09/19 03/10/19 19:00 07:00 Intake Total 120 ml Output Total 550 ml Balance -430 ml Intake Oral 120 ml Output Urine Total 550 ml # Voids 2 # Bowel Movements 1 1 Microbiology Date/Time Source Procedure Growth Status 03/08/19 18:15 Blood Blood Culture - Preliminary NO GROWTH AFTER 24 HOURS Resulted 03/05/19 12:30 Body Fluid Gram Stain - Final Complete 03/05/19 12:30 Body Fluid Body Fluid Culture - Final NO GROWTH Complete 02/27/19 15:00 Sputum Expectorated Pneumocystis jiroveci Smear (DFA) - Final Complete 02/22/19 23:55 Stool Clostridium difficile Toxin Assay - Final Complete 03/08/19 21:20 Indwelling Cath Urine Culture - Final NO GROWTH AFTER 48 HOURS Complete Current Medications Medications (Trade) Dose Ordered Sig/Tonny Route PRN Reason Start Time Stop Time Status Last Admin Dose Admin Ceftriaxone Sodium 1 gm/ Dextrose 50 ml @ 100 mls/hr Q24H IVPB 03/08/19 18:00 03/15/19 17:59 03/09/19 17:21 Chlorhexidine Gluconate (Stephanie-Hex 2%) 1 applic DAILY@2000 TOPIC 03/04/19 20:00 04/03/19 19:59 03/09/19 20:20 Dextrose (Dextrose 50%) 25 ml Q30M PRN IV Hypoglycemia 03/02/19 17:45 03/16/19 16:14 Dextrose (Dextrose 50%) 50 ml Q30M PRN IV Hypoglycemia 03/02/19 17:45 03/16/19 16:14 Lactobacillus Acidophilus (Culturelle) 1 tab EVERY 12 HOURS ORAL 03/02/19 21:00 03/26/19 17:59 03/10/19 08:43 Lactulose (Cephulac) 10 gm THREE TIMES A DAY ORAL 03/02/19 18:00 04/01/19 12:59 03/10/19 08:43 Lansoprazole (Prevacid) 30 mg EVERY 12 HOURS ORAL 03/02/19 21:00 03/26/19 17:59 03/10/19 08:43 Levetiracetam (Keppra) 500 mg Q12HR ORAL 03/03/19 21:00 04/02/19 20:59 03/10/19 08:43 Metronidazole 100 ml @ 100 mls/hr Q8HR IVPB 03/08/19 22:00 03/15/19 21:59 03/10/19 06:27 Ondansetron HCl (Zofran) 4 mg Q6H PRN IVP Nausea & Vomiting 03/02/19 18:30 03/16/19 18:29 Rifaximin (Xifaxan) 550 mg EVERY 12 HOURS ORAL 03/02/19 21:00 03/15/19 20:59 03/10/19 08:43 Tamsulosin HCl (Flomax) 0.8 mg BEDTIME ORAL 03/05/19 21:30 04/04/19 21:29 03/09/19 20:25 Thiamine HCl (Vitamin B1) 100 mg DAILY ORAL 03/07/19 09:00 03/27/19 08:59 03/10/19 08:43 Laboratory Tests 03/10/19 06:23: White Blood Count 21.4H, Red Blood Count 2.63L, Hemoglobin 8.3L, Hematocrit 25.6L, Mean Corpuscular Volume 97, Mean Corpuscular Hemoglobin 31.7H, Mean Corpuscular Hemoglobin Concent 32.6, Red Cell Distribution Width 15.3H, Platelet Count 137L, Mean Platelet Volume 7.6, Neutrophils (%) (Auto) , Lymphocytes (%) (Auto) , Monocytes (%) (Auto) , Eosinophils (%) (Auto) , Basophils (%) (Auto) , Neutrophils % (Manual) [Pending], Lymphocytes % (Manual) [Pending], Platelet Estimate [Pending], Platelet Morphology [Pending], Sodium Level 133L, Potassium Level 4.6, Chloride Level 103, Carbon Dioxide Level 25, Anion Gap 6, Blood Urea Nitrogen 22H, Creatinine 1.7H, Estimat Glomerular Filtration Rate 51.0, Glucose Level 106, Calcium Level 7.9L, Total Bilirubin 4.4H, Direct Bilirubin 3.8H, Aspartate Amino Transf (AST/SGOT) 61H, Alanine Aminotransferase (ALT/SGPT) 28, Alkaline Phosphatase 184H, Total Protein 6.5, Albumin 1.3L, Globulin 5.2, Albumin/Globulin Ratio 0.2L Height (Feet): 5 Height (Inches): 5.00 Weight (Pounds): 169 Objective exam stable Jeremy Matta MD Mar 10, 2019 09:33
--- NOTE | 2019-03-10 09:44 | General Progress Note ---
Assessment/Plan Status: unchanged Assessment/Plan: 1) Coffee ground emesis ICD Codes: K92.0 - Hematemesis SNOMED: 38783586 (2) Episode of confusion ICD Codes: R41.0 - Disorientation, unspecified SNOMED: 60353587 (3) Gastrointestinal bleed ICD Codes: K92.2 - Gastrointestinal hemorrhage, unspecified SNOMED: 97551229 (4) Abnormal LFTs ICD Codes: R94.5 - Abnormal results of liver function studies SNOMED: 385271647 (5) Diarrhea ICD Codes: R19.7 - Diarrhea, unspecified SNOMED: 89646347 (6) Electrolyte and fluid disorder ICD Codes: E87.8 - Other disorders of electrolyte and fluid balance, not elsewhere classified SNOMED: 07811740 (7) Sepsis ICD Codes: A41.9 - Sepsis, unspecified organism SNOMED: 95409011 Status: unchanged Status Narrative Discussed with Dr. Bloom Assessment/Plan SUMMARY OF FINDINGS: 1. Medium-sized hiatal hernia. 2. Portal hypertensive gastropathy, status post biopsy. US reviewed >> liver disease/cirrhosis with ascites s/p paracentesis. Assessment - Resp failure - diarrhea - UGIB abnormal LFT, negative hepatitis serologies, s/p U/S x 2 (no biliary dilation), downtrending - ?cirrhosis and sepsis/hypoperfusion - h/o EtOH, possible early cirrhosis EBV IGM elevation Check HSV IgM, negative Hepatitis Panel negative OB stool r/o GI bleed - positive Follow up path of EGD noted with portal hypertensive gastropathy. Negative for H. Pylori. RECOMMENDATIONS: Check CMV Quant PCR No evidence of any active GI bleeding at this time. consider colonoscopy if needed. low dose lactulose + Xifaxan PT evaluation prn transfusions follow labs Subjective ROS Limited/Unobtainable: Yes Allergies: Coded Allergies: No Known Allergies (Unverified , 02/10/15) Objective Last 24 Hour Vital Signs Date Time Temp Pulse Resp B/P (MAP) Pulse Ox O2 Delivery O2 Flow Rate FiO2 03/10/19 08:00 97.8 105 20 107/72 (84) 96 03/10/19 04:00 98.1 102 18 104/69 (81) 97 03/10/19 04:00 100 03/10/19 03:49 100 03/10/19 00:00 97.5 103 18 99/66 (77) 98 03/09/19 23:31 105 03/09/19 21:00 Room Air Room Air 03/09/19 20:18 99 03/09/19 20:00 98.2 102 18 116/77 (90) 98 03/09/19 16:00 94 03/09/19 16:00 97.2 95 18 111/74 (86) 98 96 03/09/19 12:00 98 03/09/19 12:00 97.2 106 20 110/75 (87) 98 96 03/09/19 10:22 Room Air Room Air Intake and Output 03/09/19 03/10/19 19:00 07:00 Intake Total 120 ml Output Total 550 ml Balance -430 ml Intake Oral 120 ml Output Urine Total 550 ml # Voids 2 # Bowel Movements 1 1 Laboratory Tests 03/10/19 06:23: White Blood Count 21.4H, Red Blood Count 2.63L, Hemoglobin 8.3L, Hematocrit 25.6L, Mean Corpuscular Volume 97, Mean Corpuscular Hemoglobin 31.7H, Mean Corpuscular Hemoglobin Concent 32.6, Red Cell Distribution Width 15.3H, Platelet Count 137L, Mean Platelet Volume 7.6, Neutrophils (%) (Auto) , Lymphocytes (%) (Auto) , Monocytes (%) (Auto) , Eosinophils (%) (Auto) , Basophils (%) (Auto) , Neutrophils % (Manual) [Pending], Lymphocytes % (Manual) [Pending], Platelet Estimate [Pending], Platelet Morphology [Pending], Sodium Level 133L, Potassium Level 4.6, Chloride Level 103, Carbon Dioxide Level 25, Anion Gap 6, Blood Urea Nitrogen 22H, Creatinine 1.7H, Estimat Glomerular Filtration Rate 51.0, Glucose Level 106, Calcium Level 7.9L, Total Bilirubin 4.4H, Direct Bilirubin 3.8H, Aspartate Amino Transf (AST/SGOT) 61H, Alanine Aminotransferase (ALT/SGPT) 28, Alkaline Phosphatase 184H, Total Protein 6.5, Albumin 1.3L, Globulin 5.2, Albumin/Globulin Ratio 0.2L Height (Feet): 5 Height (Inches): 5.00 Weight (Pounds): 169 General Appearance: WD/WN, no apparent distress EENT: normal ENT inspection Neck: supple Cardiovascular: normal rate Respiratory/Chest: decreased breath sounds Abdomen: normal bowel sounds, non tender, soft Extremities: non-tender Jones Bloom MD Mar 10, 2019 09:44
[2019-03-10 12:00] VITALS: BP 108/72
--- NOTE | 2019-03-10 12:09 | Surgery Progress Note ---
Surgery Progress Note Subjective Procedure Performed \ Symptoms: improved, tolerating diet, voiding well, passing flatus, BM Additional Comments jaundice improved labs improved Objective Last 24 Hour Vital Signs Date Time Temp Pulse Resp B/P (MAP) Pulse Ox O2 Delivery O2 Flow Rate FiO2 03/10/19 09:00 Room Air Room Air 03/10/19 08:00 104 03/10/19 08:00 97.8 105 20 107/72 (84) 96 03/10/19 04:00 98.1 102 18 104/69 (81) 97 03/10/19 04:00 100 03/10/19 03:49 100 03/10/19 00:00 97.5 103 18 99/66 (77) 98 03/09/19 23:31 105 03/09/19 21:00 Room Air Room Air 03/09/19 20:18 99 03/09/19 20:00 98.2 102 18 116/77 (90) 98 03/09/19 16:00 94 03/09/19 16:00 97.2 95 18 111/74 (86) 98 96 I&O Intake and Output 03/09/19 03/10/19 19:00 07:00 Intake Total 120 ml Output Total 550 ml Balance -430 ml Intake Oral 120 ml Output Urine Total 550 ml # Voids 2 # Bowel Movements 1 1 Drains: none Cardiovascular: RSR Respiratory: clear Abdomen: soft, non-tender, present bowel sounds, non-distended Extremities: no edema, no tenderness, no cyanosis Laboratory Tests Test 03/10/19 06:23 White Blood Count 21.4 K/UL (4.8-10.8) H Red Blood Count 2.63 M/UL (4.70-6.10) L Hemoglobin 8.3 G/DL (14.2-18.0) L Hematocrit 25.6 % (42.0-52.0) L Mean Corpuscular Volume 97 FL (80-99) Mean Corpuscular Hemoglobin 31.7 PG (27.0-31.0) H Mean Corpuscular Hemoglobin Concent 32.6 G/DL (32.0-36.0) Red Cell Distribution Width 15.3 % (11.6-14.8) H Platelet Count 137 K/UL (150-450) L Mean Platelet Volume 7.6 FL (6.5-10.1) Neutrophils (%) (Auto) % (45.0-75.0) Lymphocytes (%) (Auto) % (20.0-45.0) Monocytes (%) (Auto) % (1.0-10.0) Eosinophils (%) (Auto) % (0.0-3.0) Basophils (%) (Auto) % (0.0-2.0) Differential Total Cells Counted 100 Neutrophils % (Manual) 80 % (45-75) H Lymphocytes % (Manual) 7 % (20-45) L Monocytes % (Manual) 9 % (1-10) Eosinophils % (Manual) 4 % (0-3) H Basophils % (Manual) 0 % (0-2) Band Neutrophils 0 % (0-8) Platelet Estimate Decreased L Platelet Morphology Normal Hypochromasia 2+ Anisocytosis 1+ Sodium Level 133 MMOL/L (136-145) L Potassium Level 4.6 MMOL/L (3.5-5.1) Chloride Level 103 MMOL/L (98-107) Carbon Dioxide Level 25 MMOL/L (21-32) Anion Gap 6 mmol/L (5-15) Blood Urea Nitrogen 22 mg/dL (7-18) H Creatinine 1.7 MG/DL (0.55-1.30) H Estimat Glomerular Filtration Rate 51.0 mL/min (>60) Glucose Level 106 MG/DL (74-106) Calcium Level 7.9 MG/DL (8.5-10.1) L Total Bilirubin 4.4 MG/DL (0.2-1.0) H Direct Bilirubin 3.8 MG/DL (0.0-0.3) H Aspartate Amino Transf (AST/SGOT) 61 U/L (15-37) H Alanine Aminotransferase (ALT/SGPT) 28 U/L (12-78) Alkaline Phosphatase 184 U/L (46-116) H Total Protein 6.5 G/DL (6.4-8.2) Albumin 1.3 G/DL (3.4-5.0) L Globulin 5.2 g/dL Albumin/Globulin Ratio 0.2 (1.0-2.7) L Plan Problems: (1) Non-compliance Assessment & Plan: Noncompliance with seizure medication with known history of seizures Now had seizure Appreciate neurology input (2) Electrolyte and fluid disorder Assessment & Plan: Likely due to EtOH use and dehydration IV hydration Trend labs (3) Fever (4) Oral thrush (5) Diarrhea (6) Aspiration pneumonia (7) Seizure disorder (8) Tachycardia (9) Altered mental status (10) Alcohol withdrawal seizure (11) Alcohol withdrawal seizure (12) Episode of confusion (13) Coffee ground emesis (14) Gastrointestinal bleed Assessment & Plan: Patient on admission identified to have maroon-colored stool and coffee-ground emesis. Labs noted mild anemia with H&H trending down. No acute active bleed noted but given patient's history high risk for potential ulcers. PPI Appreciate GI input considerations for EGD once stable No evidence of pulmonary embolus, aortic dissection or aneurysm. Posterior basilar consolidation suspicious for pneumonia. Correlate clinically. Trace bilateral pleural effusions. Possible enterocolitis as described above. Please correlate clinically. Mild ascites Fatty liver Cholelithiasis with wall thickening. Cholecystitis not excluded. Small right inguinal hernia containing fat Extensive breathing motion artifact limiting evaluation. We will follow with recommendations thank you (15) Sinus tachycardia (16) Septic shock (17) Sepsis Assessment & Plan: Patient septic leukocytosis improved today lactic acidosis resolved anemia renal function declining electrolyte disturbance US noted picc out transition to oral meds extubated doing well US noted again. liver decompensated HIDA noted and likely cirrhosis delgado AM labs reordered s/p para micro negative improving overall (18) Lactic acid acidosis (19) STEFANI (acute kidney injury) (20) Abnormal LFTs (21) High anion gap metabolic acidosis Juanpablo Mracus Mar 10, 2019 12:09
--- NOTE | 2019-03-10 13:50 | General Progress Note ---
Assessment/Plan Status: unchanged Assessment/Plan: Assessment/Plan Status: unchanged Assessment/Plan: 54 year old male with PMH of seizure disorder and etoh abuse admitted for seizures 2/2 non-compliance #severe septic shock likely 2/2 UTI - improved #Gram negative bacteremia, now resolved by surveillance follow up blood culture #Acute respiratory failure requiting intubation s/p extubation 03/01 -abx per ID -WBC cont to be elevated and mild decrease from 23.8 to 21.4 K today - CBC serial. Last Bcx and Ucx 03/08 NGT - CT 02/18 with atelectasis primarily and CT 03/09 with lower lung nodularity possibly pneumonia, gastric prominence, bladder thickness-reticulation - ADD incentive spirometry as the patient is not getting it. - Diuresis -ID consult appreciated - Immunoglobulin and hepatitis panel negative. - ABG prn - Reviewed CT chest/abd/pel -PICC placed # Transaminitis - improved #Ascites - paracenthesis 03/05 - repeat 03/09 with 3 lt removed. - f/u HIDA : non obstructive, findings c/w intracellular damage - appreciate GI and Sx input - us shows nodularity and chronic disease - hep panel negative - f/u GI who recommends Lactulose and Rixamin, CMV PCR ordered. # Hemoptysis - resolved - s/p bronch 02/27 with Therapeutic aspiration and mucus plug from the endotracheal tube in right upper lobe., - monitor ett output - monitor hgb #Lactic acidosis - resolved -2/2 severe shock/ poss abd source/ seizures - 2 D Echo on 02/16 with EF 65%. Discussed with cardiology and etiology likely sepsis and not cardiogenic -CTM -Fluid boluses completed. -Cont mIVF #Coagulopathy # Thrombocytopenia - 40,000 lowest level and now at 137 K without active bleeding. - Hematology consult with Dr. Johnston appreciated. Flow cytometry pending. -likely 2/2 hepatic injury 2/2 shock - Consumption coagulopathy. - Consider platelet transfusion if LESS than 30K with urine blood tinge color. #Coffee ground emesis likely in setting of GI bleed -H/H trending down. Hb 8.3 -GI consult appreciated -s/p EGD, no significant findings, f/u biopsies #Seizures 2/2 noncomplaint with AED -s/p phenytoin load in ED -Cont Phenytoin -Neurology consult appreciated -pending EEG - no seizures noted in last 24 hours -Ativan PRN for seizures -Seizure precautions #Hypokalemia - Replete as needed #hypophosphatemia - Repleted. #Hypomagnesemia -repleted -CTM # Urethral hemorrhage and clot evacuation - stable - appreciate urology consult - If recurrent hemorrhage will address. - Consider PRBC and Platelets if Hb < 8 or Plt < 30 K # Urinary retention PVR > 300 cc WILKINSON replaced 02/[address] ( in case of repeat hemorrhage ) - WILKINSON REMOVED 03/05 - VOIDING WELL with condom cath D/w RN # Generalized weakness due to prolonged hospitalization - PT evaluation and plan for rehabilitation. Likely SNF is needed. patient lives near [facility] area. Family updated at the bedside, multiple questions asked and answered as best as possible. Code: Full Subjective ROS Limited/Unobtainable: No Respiratory: Reports: shortness of breath Gastrointestinal/Abdominal: Reports: abdomen distended Genitourinary: Reports: no symptoms Hematologic/Lymphatic: Reports: no symptoms Allergies: Coded Allergies: No Known Allergies (Unverified , 02/10/15) Objective Last 24 Hour Vital Signs Date Time Temp Pulse Resp B/P (MAP) Pulse Ox O2 Delivery O2 Flow Rate FiO2 03/10/19 12:00 97.7 103 20 108/72 (84) 98 03/10/19 09:00 Room Air Room Air 03/10/19 08:00 104 03/10/19 08:00 97.8 105 20 107/72 (84) 96 03/10/19 04:00 98.1 102 18 104/69 (81) 97 03/10/19 04:00 100 03/10/19 03:49 100 03/10/19 00:00 97.5 103 18 99/66 (77) 98 03/09/19 23:31 105 03/09/19 21:00 Room Air Room Air 03/09/19 20:18 99 03/09/19 20:00 98.2 102 18 116/77 (90) 98 03/09/19 16:00 94 03/09/19 16:00 97.2 95 18 111/74 (86) 98 96 Intake and Output 03/09/19 03/10/19 19:00 07:00 Intake Total 120 ml Output Total 550 ml Balance -430 ml Intake Oral 120 ml Output Urine Total 550 ml # Voids 2 # Bowel Movements 1 1 Laboratory Tests 03/10/19 06:23: White Blood Count 21.4H, Red Blood Count 2.63L, Hemoglobin 8.3L, Hematocrit 25.6L, Mean Corpuscular Volume 97, Mean Corpuscular Hemoglobin 31.7H, Mean Corpuscular Hemoglobin Concent 32.6, Red Cell Distribution Width 15.3H, Platelet Count 137L, Mean Platelet Volume 7.6, Neutrophils (%) (Auto) , Lymphocytes (%) (Auto) , Monocytes (%) (Auto) , Eosinophils (%) (Auto) , Basophils (%) (Auto) , Differential Total Cells Counted 100, Neutrophils % ( Manual) 80H, Lymphocytes % (Manual) 7L, Monocytes % (Manual) 9, Eosinophils % ( Manual) 4H, Basophils % (Manual) 0, Band Neutrophils 0, Platelet Estimate DecreasedL, Platelet Morphology Normal, Hypochromasia 2+, Anisocytosis 1+, Sodium Level 133L, Potassium Level 4.6, Chloride Level 103, Carbon Dioxide Level 25, Anion Gap 6, Blood Urea Nitrogen 22H, Creatinine 1.7H, Estimat Glomerular Filtration Rate 51.0, Glucose Level 106, Calcium Level 7.9L, Total Bilirubin 4.4H, Direct Bilirubin 3.8H, Aspartate Amino Transf (AST/SGOT) 61H, Alanine Aminotransferase (ALT/SGPT) 28, Alkaline Phosphatase 184H, Total Protein 6.5, Albumin 1.3L, Globulin 5.2, Albumin/Globulin Ratio 0.2L Height (Feet): 5 Height (Inches): 5.00 Weight (Pounds): 169 General Appearance: moderate distress EENT: PERRL/EOMI, scleral icterus Cardiovascular: normal rate Respiratory/Chest: lungs clear, normal breath sounds Abdomen: soft, hypoactive bowel sounds, distended, hepatomegaly Edema: trace edema 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
--- NOTE | 2019-03-10 15:09 | Cardiac Electrophysiology PN ---
Assessment/Plan Assessment/Plan 1. Sinus tachycardia up to 170s. No myocardial infarction . Due to sepsis and anemia and alcohol withdrawal. EF 60%. In SR in 90-100s 2. S/P Septic shock and E Coli bacteremia, on 3 broad-spectrum IV antibiotics. 3. Troponin leak. Type 2. No CP 4. S/P Respiratory failure. Self extubated S/P Bronchoscopy and removal of mucus plug 5. ETOH withdrawal 6. Seizures with noncompliance. 7. Upper gi bleed. S/P EGD 8. Hematuria, resolved 9. Coffee ground emesis. EGD showed a. Medium-sized hiatal hernia. b. Portal hypertensive gastropathy, status post biopsy. 10. Liver cirrhosis with ascites. Billirubin down [address] Goldberg S/P Paracentesis 4 liters on 03/04/19. On Lactulose S/P Paracentesis 3 liters 03/15/19 DW RN DC planning Subjective Subjective Alert off restraints. In SR in NAD. Had [address] abdomen and Pelvis 03/09/19 Objective Last 24 Hour Vital Signs Date Time Temp Pulse Resp B/P (MAP) Pulse Ox O2 Delivery O2 Flow Rate FiO2 03/10/19 12:00 103 03/10/19 12:00 97.7 103 20 108/72 (84) 98 03/10/19 09:00 Room Air Room Air 03/10/19 08:00 104 03/10/19 08:00 97.8 105 20 107/72 (84) 96 03/10/19 04:00 98.1 102 18 104/69 (81) 97 03/10/19 04:00 100 03/10/19 03:49 100 03/10/19 00:00 97.5 103 18 99/66 (77) 98 03/09/19 23:31 105 03/09/19 21:00 Room Air Room Air 03/09/19 20:18 99 03/09/19 20:00 98.2 102 18 116/77 (90) 98 03/09/19 16:00 94 03/09/19 16:00 97.2 95 18 111/74 (86) 98 96 Intake and Output 03/09/19 03/10/19 19:00 07:00 Intake Total 120 ml Output Total 550 ml Balance -430 ml Intake Oral 120 ml Output Urine Total 550 ml # Voids 2 # Bowel Movements 1 1 Laboratory Tests Test 03/10/19 06:23 White Blood Count 21.4 K/UL (4.8-10.8) H Red Blood Count 2.63 M/UL (4.70-6.10) L Hemoglobin 8.3 G/DL (14.2-18.0) L Hematocrit 25.6 % (42.0-52.0) L Mean Corpuscular Volume 97 FL (80-99) Mean Corpuscular Hemoglobin 31.7 PG (27.0-31.0) H Mean Corpuscular Hemoglobin Concent 32.6 G/DL (32.0-36.0) Red Cell Distribution Width 15.3 % (11.6-14.8) H Platelet Count 137 K/UL (150-450) L Mean Platelet Volume 7.6 FL (6.5-10.1) Neutrophils (%) (Auto) % (45.0-75.0) Lymphocytes (%) (Auto) % (20.0-45.0) Monocytes (%) (Auto) % (1.0-10.0) Eosinophils (%) (Auto) % (0.0-3.0) Basophils (%) (Auto) % (0.0-2.0) Differential Total Cells Counted 100 Neutrophils % (Manual) 80 % (45-75) H Lymphocytes % (Manual) 7 % (20-45) L Monocytes % (Manual) 9 % (1-10) Eosinophils % (Manual) 4 % (0-3) H Basophils % (Manual) 0 % (0-2) Band Neutrophils 0 % (0-8) Platelet Estimate Decreased L Platelet Morphology Normal Hypochromasia 2+ Anisocytosis 1+ Sodium Level 133 MMOL/L (136-145) L Potassium Level 4.6 MMOL/L (3.5-5.1) Chloride Level 103 MMOL/L (98-107) Carbon Dioxide Level 25 MMOL/L (21-32) Anion Gap 6 mmol/L (5-15) Blood Urea Nitrogen 22 mg/dL (7-18) H Creatinine 1.7 MG/DL (0.55-1.30) H Estimat Glomerular Filtration Rate 51.0 mL/min (>60) Glucose Level 106 MG/DL (74-106) Calcium Level 7.9 MG/DL (8.5-10.1) L Total Bilirubin 4.4 MG/DL (0.2-1.0) H Direct Bilirubin 3.8 MG/DL (0.0-0.3) H Aspartate Amino Transf (AST/SGOT) 61 U/L (15-37) H Alanine Aminotransferase (ALT/SGPT) 28 U/L (12-78) Alkaline Phosphatase 184 U/L (46-116) H Total Protein 6.5 G/DL (6.4-8.2) Albumin 1.3 G/DL (3.4-5.0) L Globulin 5.2 g/dL Albumin/Globulin Ratio 0.2 (1.0-2.7) L Microbiology Date/Time Source Procedure Growth Status 03/08/19 18:15 Blood Blood Culture - Preliminary NO GROWTH AFTER 24 HOURS Resulted 03/08/19 18:00 Blood Blood Culture - Preliminary NO GROWTH AFTER 24 HOURS Resulted 03/08/19 21:20 Indwelling Cath Urine Culture - Final NO GROWTH AFTER 48 HOURS Complete Objective HEAD AND NECK: No JV. Icteric sclera LUNGS: Decreased breath sounds. CARDIOVASCULAR: Regular S1 and S2 with no gallop or murmur. ABDOMEN: Soft. EXTREMITIES: No pitting edema. Fidencio Trevino MD Mar 10, 2019 15:09
--- NOTE | 2019-03-10 15:09 | NUR ---
CASE MANAGEMENT: REVIEW SI: SEIZURE . LUNG INFILTRATES . ASCITES PARACENTESIS 03/09 EGD w/BIOPSY 03/01 BRONCHOSCOPY w/BRONCHOALVEOLAR LAVAGE . ASPIRATION OF MUCOUS PLUG 02/27 IS: FLAGYL IV Q8HR CEFTRIAXONE IV Q24HR THIAMINE PO QD KEPPRA PO Q12HR RIFAXIMIN PO Q12HR LACTULOSE PO TID TELEMETRY UNIT STATUS DCP: PATIENT IS FROM HOME
--- NOTE | 2019-03-10 15:10 | NUR ---
CASE MANAGEMENT: REVIEW SI: SEIZURE . LUNG INFILTRATES . ASCITES PARACENTESIS 03/09 EGD w/BIOPSY 03/01 BRONCHOSCOPY w/BRONCHOALVEOLAR LAVAGE . ASPIRATION OF MUCOUS PLUG 02/27 T 97.7 HR 105 RR 20 BP 107/72 SAT 96% ROOM AIR WBC 21.4 H/H 8.3/25.6 NA 133 BUN 22 CR 1.7 IS: FLAGYL IV Q8HR CEFTRIAXONE IV Q24HR THIAMINE PO QD KEPPRA PO Q12HR RIFAXIMIN PO Q12HR LACTULOSE PO TID TELEMETRY UNIT STATUS DCP: PATIENT IS FROM HOME
[2019-03-10 16:00] VITALS: BP 108/69
--- NOTE | 2019-03-10 16:41 | Infectious Diseases Prog Note ---
Assessment/Plan Assessment/Plan ASSESSMENT AND PLAN: 1. sepsis, shock, e.coli bacteremia/uti, gram neg sepsis, pna/HCAP, ct noted, sirs, fevers, fungemia risk, ascites, s/p paracentesis, ? sbp, elevated lft's, persistent leukocytosis - rocephin and flagyl - surveillance cultures negative - off vent , off pressors, clinically improving - monitor labs - picc line (03/05/19) - will order indium scan for persistent leukocytosis 2. History of seizures. Workup per Neurology. 3. Acute kidney injury, likely secondary to sepsis. 4. The patient is anemic. 5. Severe sepsis with leukocytosis. 6. History of ETOH abuse. 7. No known allergies. 8. Family history is noncontributory. 9. MAR was noted. 10. Case was discussed with RN. 11. Social history is positive for ETOH abuse. 12. Poor prognosis. Subjective Constitutional: Reports: fatigue; Denies: fever HEENT: Denies: congestion Respiratory: Denies: shortness of breath Cardiovascular: Denies: chest pain Gastrointestinal/Abdominal: Denies: nausea, vomiting, diarrhea Genitourinary: Reports: other - + delgado Neurologic: Denies: headache Psychiatric: Denies: depression Skin: Denies: rash Hematologic: Denies: bleeding Musculoskeletal: Denies: pain Allergies: Coded Allergies: No Known Allergies (Unverified , 02/10/15) Objective Vital Signs Last 24 Hour Vital Signs Date Time Temp Pulse Resp B/P (MAP) Pulse Ox O2 Delivery O2 Flow Rate FiO2 03/10/19 16:00 97.5 103 20 108/69 (82) 99 03/10/19 12:00 103 03/10/19 12:00 97.7 103 20 108/72 (84) 98 03/10/19 09:00 Room Air Room Air 03/10/19 08:00 104 03/10/19 08:00 97.8 105 20 107/72 (84) 96 03/10/19 04:00 98.1 102 18 104/69 (81) 97 03/10/19 04:00 100 03/10/19 03:49 100 03/10/19 00:00 97.5 103 18 99/66 (77) 98 03/09/19 23:31 105 03/09/19 21:00 Room Air Room Air 03/09/19 20:18 99 03/09/19 20:00 98.2 102 18 116/77 (90) 98 Height (Feet): 5 Height (Inches): 5.00 Weight (Pounds): 169 General Appearance: no acute distress HEENT: normocephalic, atraumatic, mucous membranes moist, supple, no JVD, other - ? 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 Posterior basilar consolidation suspicious for pneumonia. Correlate clinically. Trace bilateral pleural effusions. Possible enterocolitis as described above. Please correlate clinically. Mild ascites Fatty liver Cholelithiasis with wall thickening. Cholecystitis not excluded. Small right inguinal hernia containing fat Extensive breathing motion artifact limiting evaluation. Chest x-ray - 03/05/19 - Comparison: 02/27/2019 Findings: Interim removal of endotracheal and nasogastric tubes. There is some atelectasis at both lung bases. There is likely some pleural fluid and possibly some consolidation at the left lung base. The heart size is normal the aorta is tortuous. There is a calcification at the inferior aspect of the left shoulder joint. Impression: Bilateral basilar atelectasis. Possible left-sided pleural fluid and consolidation Interim endotracheal and nasogastric extubation CT abdomen and pelvis - 03/09/19 - CT ABDOMEN + PELVIS Without Contrast: Comparison: 02/17/19 Evaluation limited by the absence of IV contrast enhancement. Patchy nodular consolidation in both lung bases consistent with pneumonia. Small adjacent bilateral pleural effusions left greater than right. Follow-up to complete radiographic resolution is required to exclude neoplasm. Small hiatal hernia. Enteric contrast within the distal esophagus secondary to recent administration are gastro-esophageal reflux. Mild scalloping of the hepatic contour is consistent with cirrhosis. No interval change and nodular thickening bilateral adrenal glands. Cholelithiasis without evidence of biliary ductal dilatation. Significant increase in ascites in the abdomen and pelvis that is now a large amount. Nonspecific gastric wall prominence, recommend endoscopy for further evaluation. The lower GI tract demonstrates no obstruction or pneumatosis. There is mild wall thickening distal right colon extending just distal to the hepatic flexure that is nonspecific can be seen with focal colitis as well as sequela from portal hypertension and cirrhosis. Moderate liquid stool in the distal rectosigmoid colon partially obscuring wall thickness. Diffuse saniya mesentery. Negative for loculated fluid collections. Bladder wall thickening with reticulation is nonspecific and can be seen with chronic outlet obstruction. Cystoscopy can provide more definitive evaluation. Negative for pneumoperitoneum. Microbiology Date/Time Source Procedure Growth Status 03/08/19 18:15 Blood Blood Culture - Preliminary NO GROWTH AFTER 24 HOURS Resulted 03/08/19 18:00 Blood Blood Culture - Preliminary NO GROWTH AFTER 24 HOURS Resulted 03/08/19 21:20 Indwelling Cath Urine Culture - Final NO GROWTH AFTER 48 HOURS Complete Laboratory Tests Test 03/10/19 06:23 White Blood Count 21.4 K/UL (4.8-10.8) H Red Blood Count 2.63 M/UL (4.70-6.10) L Hemoglobin 8.3 G/DL (14.2-18.0) L Hematocrit 25.6 % (42.0-52.0) L Mean Corpuscular Volume 97 FL (80-99) Mean Corpuscular Hemoglobin 31.7 PG (27.0-31.0) H Mean Corpuscular Hemoglobin Concent 32.6 G/DL (32.0-36.0) Red Cell Distribution Width 15.3 % (11.6-14.8) H Platelet Count 137 K/UL (150-450) L Mean Platelet Volume 7.6 FL (6.5-10.1) Neutrophils (%) (Auto) % (45.0-75.0) Lymphocytes (%) (Auto) % (20.0-45.0) Monocytes (%) (Auto) % (1.0-10.0) Eosinophils (%) (Auto) % (0.0-3.0) Basophils (%) (Auto) % (0.0-2.0) Differential Total Cells Counted 100 Neutrophils % (Manual) 80 % (45-75) H Lymphocytes % (Manual) 7 % (20-45) L Monocytes % (Manual) 9 % (1-10) Eosinophils % (Manual) 4 % (0-3) H Basophils % (Manual) 0 % (0-2) Band Neutrophils 0 % (0-8) Platelet Estimate Decreased L Platelet Morphology Normal Hypochromasia 2+ Anisocytosis 1+ Sodium Level 133 MMOL/L (136-145) L Potassium Level 4.6 MMOL/L (3.5-5.1) Chloride Level 103 MMOL/L (98-107) Carbon Dioxide Level 25 MMOL/L (21-32) Anion Gap 6 mmol/L (5-15) Blood Urea Nitrogen 22 mg/dL (7-18) H Creatinine 1.7 MG/DL (0.55-1.30) H Estimat Glomerular Filtration Rate 51.0 mL/min (>60) Glucose Level 106 MG/DL (74-106) Calcium Level 7.9 MG/DL (8.5-10.1) L Total Bilirubin 4.4 MG/DL (0.2-1.0) H Direct Bilirubin 3.8 MG/DL (0.0-0.3) H Aspartate Amino Transf (AST/SGOT) 61 U/L (15-37) H Alanine Aminotransferase (ALT/SGPT) 28 U/L (12-78) Alkaline Phosphatase 184 U/L (46-116) H Total Protein 6.5 G/DL (6.4-8.2) Albumin 1.3 G/DL (3.4-5.0) L Globulin 5.2 g/dL Albumin/Globulin Ratio 0.2 (1.0-2.7) L Current Medications Medications (Trade) Dose Ordered Sig/Tonny Route PRN Reason Start Time Stop Time Status Last Admin Dose Admin Ceftriaxone Sodium 1 gm/ Dextrose 50 ml @ 100 mls/hr Q24H IVPB 03/08/19 18:00 03/15/19 17:59 03/09/19 17:21 Chlorhexidine Gluconate (Stephanie-Hex 2%) 1 applic DAILY@1999 TOPIC 03/04/19 20:00 04/03/19 19:59 03/09/19 20:20 Dextrose (Dextrose 50%) 25 ml Q30M PRN IV Hypoglycemia 03/02/19 17:45 03/16/19 16:14 Dextrose (Dextrose 50%) 50 ml Q30M PRN IV Hypoglycemia 03/02/19 17:45 03/16/19 16:14 Lactobacillus Acidophilus (Culturelle) 1 tab EVERY 12 HOURS ORAL 03/02/19 21:00 03/26/19 17:59 03/10/19 08:43 Lactulose (Cephulac) 10 gm THREE TIMES A DAY ORAL 03/02/19 18:00 04/01/19 12:59 03/10/19 13:50 Lansoprazole (Prevacid) 30 mg EVERY 12 HOURS ORAL 03/02/19 21:00 03/26/19 17:59 03/10/19 08:43 Levetiracetam (Keppra) 500 mg Q12HR ORAL 03/03/19 21:00 04/02/19 20:59 03/10/19 08:43 Metronidazole 100 ml @ 100 mls/hr Q8HR IVPB 03/08/19 22:00 03/15/19 21:59 03/10/19 13:50 Ondansetron HCl (Zofran) 4 mg Q6H PRN IVP Nausea & Vomiting 03/02/19 18:30 03/16/19 18:29 Rifaximin (Xifaxan) 550 mg EVERY 12 HOURS ORAL 03/02/19 21:00 03/15/19 20:59 03/10/19 08:43 Tamsulosin HCl (Flomax) 0.8 mg BEDTIME ORAL 03/05/19 21:30 04/04/19 21:29 03/09/19 20:25 Thiamine HCl (Vitamin B1) 100 mg DAILY ORAL 03/07/19 09:00 03/27/19 08:59 03/10/19 08:43 Barry Plummer MD Mar 10, 2019 16:41
[2019-03-10] MEDS: cefTRIAXone 1 GM in D5W 50 ML IVPB SCH (17:38)
--- NOTE | 2019-03-10 19:24 | NUR ---
HAND-OFF: Report given to ESHA Hull.
--- NOTE | 2019-03-10 19:25 | NUR ---
NURSE NOTES: Received patient from ESHA Almeida. Patient on room air, no s/s respiratory distress. Bilateral scds on lower extremities. PICC on DANIELLE, dressing intact, last changed 03/06/19. Bed in low position, locked, bed alarm on, call light within reach.Will continue to monitor and reassess.
[2019-03-10 20:00] VITALS: BP 108/74
--- NOTE | 2019-03-10 20:23 | Nephrology Progress Note ---
Assessment/Plan Problem List: (1) STEFANI (acute kidney injury) Assessment: renal function stable (2) Seizure disorder (3) Septic shock (4) Abnormal LFTs Plan abxs follow labs Subjective Subjective In NAD Objective Objective Last 24 Hour Vital Signs Date Time Temp Pulse Resp B/P (MAP) Pulse Ox O2 Delivery O2 Flow Rate FiO2 03/10/19 16:00 97.5 103 20 108/69 (82) 99 03/10/19 16:00 107 03/10/19 12:00 103 03/10/19 12:00 97.7 103 20 108/72 (84) 98 03/10/19 09:00 Room Air Room Air 03/10/19 08:00 104 03/10/19 08:00 97.8 105 20 107/72 (84) 96 03/10/19 04:00 98.1 102 18 104/69 (81) 97 03/10/19 04:00 100 03/10/19 03:49 100 03/10/19 00:00 97.5 103 18 99/66 (77) 98 03/09/19 23:31 105 03/09/19 21:00 Room Air Room Air Intake and Output 03/09/19 03/10/19 19:00 07:00 Intake Total 120 ml Output Total 550 ml Balance -430 ml Intake Oral 120 ml Output Urine Total 550 ml # Voids 2 # Bowel Movements 1 1 Laboratory Tests 03/10/19 06:23: White Blood Count 21.4H, Red Blood Count 2.63L, Hemoglobin 8.3L, Hematocrit 25.6L, Mean Corpuscular Volume 97, Mean Corpuscular Hemoglobin 31.7H, Mean Corpuscular Hemoglobin Concent 32.6, Red Cell Distribution Width 15.3H, Platelet Count 137L, Mean Platelet Volume 7.6, Neutrophils (%) (Auto) , Lymphocytes (%) (Auto) , Monocytes (%) (Auto) , Eosinophils (%) (Auto) , Basophils (%) (Auto) , Differential Total Cells Counted 100, Neutrophils % ( Manual) 80H, Lymphocytes % (Manual) 7L, Monocytes % (Manual) 9, Eosinophils % ( Manual) 4H, Basophils % (Manual) 0, Band Neutrophils 0, Platelet Estimate DecreasedL, Platelet Morphology Normal, Hypochromasia 2+, Anisocytosis 1+, Sodium Level 133L, Potassium Level 4.6, Chloride Level 103, Carbon Dioxide Level 25, Anion Gap 6, Blood Urea Nitrogen 22H, Creatinine 1.7H, Estimat Glomerular Filtration Rate 51.0, Glucose Level 106, Calcium Level 7.9L, Total Bilirubin 4.4H, Direct Bilirubin 3.8H, Aspartate Amino Transf (AST/SGOT) 61H, Alanine Aminotransferase (ALT/SGPT) 28, Alkaline Phosphatase 184H, Total Protein 6.5, Albumin 1.3L, Globulin 5.2, Albumin/Globulin Ratio 0.2L Height (Feet): 5 Height (Inches): 5.00 Weight (Pounds): 169 Cardiovascular: normal rate Respiratory/Chest: lungs clear Extremities: other - no edema James Nick MD Mar 10, 2019 20:23
[2019-03-10] MEDS: Dyna-Hex 2% Top Sol 2oz TOPIC SCH (20:59)
[2019-03-10] MEDS: Tamsulosin 0.4mg cap ORAL SCH (21:00)
[2019-03-11] VITALS: BP 109/67
[2019-03-11 04:00] VITALS: BP 97/70
--- NOTE | 2019-03-11 04:00 | NUR ---
NURSE NOTES: Received patient from ESHA Hull. Patient on room air, no s/s respiratory distress. Bilateral scds on lower extremities. PICC on ADNIELLE, dressing intact, last changed 03/06/19. Bed in low position, locked, bed alarm on, call light within reach.Will continue to monitor and reassess.
--- NOTE | 2019-03-11 06:19 | General Progress Note ---
Assessment/Plan Status: unchanged Assessment/Plan: 1) Coffee ground emesis ICD Codes: K92.0 - Hematemesis SNOMED: 84929991 (2) Episode of confusion ICD Codes: R41.0 - Disorientation, unspecified SNOMED: 07724838 (3) Gastrointestinal bleed ICD Codes: K92.2 - Gastrointestinal hemorrhage, unspecified SNOMED: 92655015 (4) Abnormal LFTs ICD Codes: R94.5 - Abnormal results of liver function studies SNOMED: 452127264 (5) Diarrhea ICD Codes: R19.7 - Diarrhea, unspecified SNOMED: 80624404 (6) Electrolyte and fluid disorder ICD Codes: E87.8 - Other disorders of electrolyte and fluid balance, not elsewhere classified SNOMED: 28532830 (7) Sepsis ICD Codes: A41.9 - Sepsis, unspecified organism SNOMED: 44920599 Status: unchanged Status Narrative Discussed with Dr. Bloom Assessment/Plan SUMMARY OF FINDINGS: 1. Medium-sized hiatal hernia. 2. Portal hypertensive gastropathy, status post biopsy. US reviewed >> liver disease/cirrhosis with ascites s/p paracentesis. Assessment - UGIB abnormal LFT, negative hepatitis serologies, s/p U/S x 2 (no biliary dilation), downtrending - ?cirrhosis and sepsis/hypoperfusion - h/o EtOH, possible early cirrhosis EBV IGM elevation Check HSV IgM, negative Hepatitis Panel negative Follow up path of EGD noted with portal hypertensive gastropathy. Negative for H. Pylori. RECOMMENDATIONS: Check CMV Quant PCR No evidence of any active GI bleeding at this time. consider colonoscopy if needed. low dose lactulose + Xifaxan PT evaluation prn transfusions follow labs Subjective Allergies: Coded Allergies: No Known Allergies (Unverified , 02/10/15) Objective Last 24 Hour Vital Signs Date Time Temp Pulse Resp B/P (MAP) Pulse Ox O2 Delivery O2 Flow Rate FiO2 03/11/19 04:00 94 03/11/19 04:00 97.7 86 17 97/70 (79) 98 03/11/19 00:00 98.3 106 18 109/67 (81) 98 03/11/19 00:00 81 03/10/19 21:00 Room Air Room Air 03/10/19 20:00 98.1 106 20 108/74 (85) 98 03/10/19 20:00 103 03/10/19 16:00 97.5 103 20 108/69 (82) 99 03/10/19 16:00 107 03/10/19 12:00 103 03/10/19 12:00 97.7 103 20 108/72 (84) 98 03/10/19 09:00 Room Air Room Air 03/10/19 08:00 104 03/10/19 08:00 97.8 105 20 107/72 (84) 96 Intake and Output 03/10/19 03/11/19 18:59 06:59 Intake Total 840 ml Output Total 1220 ml Balance -380 ml Intake Oral 840 ml Output Urine Total 1220 ml # Bowel Movements 3 Laboratory Tests 03/10/19 06:23: White Blood Count 21.4H, Red Blood Count 2.63L, Hemoglobin 8.3L, Hematocrit 25.6L, Mean Corpuscular Volume 97, Mean Corpuscular Hemoglobin 31.7H, Mean Corpuscular Hemoglobin Concent 32.6, Red Cell Distribution Width 15.3H, Platelet Count 137L, Mean Platelet Volume 7.6, Neutrophils (%) (Auto) , Lymphocytes (%) (Auto) , Monocytes (%) (Auto) , Eosinophils (%) (Auto) , Basophils (%) (Auto) , Differential Total Cells Counted 100, Neutrophils % ( Manual) 80H, Lymphocytes % (Manual) 7L, Monocytes % (Manual) 9, Eosinophils % ( Manual) 4H, Basophils % (Manual) 0, Band Neutrophils 0, Platelet Estimate DecreasedL, Platelet Morphology Normal, Hypochromasia 2+, Anisocytosis 1+, Sodium Level 133L, Potassium Level 4.6, Chloride Level 103, Carbon Dioxide Level 25, Anion Gap 6, Blood Urea Nitrogen 22H, Creatinine 1.7H, Estimat Glomerular Filtration Rate 51.0, Glucose Level 106, Calcium Level 7.9L, Total Bilirubin 4.4H, Direct Bilirubin 3.8H, Aspartate Amino Transf (AST/SGOT) 61H, Alanine Aminotransferase (ALT/SGPT) 28, Alkaline Phosphatase 184H, Total Protein 6.5, Albumin 1.3L, Globulin 5.2, Albumin/Globulin Ratio 0.2L Height (Feet): 5 Height (Inches): 5.00 Weight (Pounds): 169 General Appearance: no apparent distress EENT: normal ENT inspection Neck: supple Cardiovascular: normal rate Respiratory/Chest: decreased breath sounds Abdomen: normal bowel sounds, non tender, soft Extremities: non-tender Jones Bloom MD Mar 11, 2019 06:18
--- NOTE | 2019-03-11 07:04 | NUR ---
HAND-OFF: Report given to ESHA Almeida.
--- NOTE | 2019-03-11 07:05 | NUR ---
NURSE NOTES: Received patient from ESHA Yanez. Patient is resting in bed, sleeping in stable condition. On room air, no s/s respiratory distress. Bed in low position, locked, bed alarm on, call light and bed side table within reach. Will continue plan of care.
[2019-03-11 07:11] LABS: HEMATOCRIT 26.6 % (42.0-52.0); HEMOGLOBIN 8.5 G/DL (14.2-18.0); MEAN CORPUSCULAR VOLUME 98 FL (80-99); PLATELET COUNT 126 K/UL (150-450); RED CELL DISTRIBUTION WIDTH 15.6 % (11.6-14.8)
[2019-03-11 07:18] LABS: WHITE BLOOD COUNT 22.4 K/UL (4.8-10.8)
[2019-03-11 07:33] LABS: ALANINE AMINOTRANSFERASE 26 U/L (12-78); ALBUMIN 1.4 G/DL (3.4-5.0); ALBUMIN/GLOBULIN RATIO 0.3 (1.0-2.7); ALKALINE PHOSPHATASE 190 U/L (46-116); ANION GAP 6 mmol/L (5-15); ASPARTATE AMINO TRANSFERASE 59 U/L (15-37); BILIRUBIN,TOTAL 4.4 MG/DL (0.2-1.0); BLOOD UREA NITROGEN 23 mg/dL (7-18); CALCIUM 7.9 MG/DL (8.5-10.1); CARBON DIOXIDE 26 MMOL/L (21-32); CHLORIDE 102 MMOL/L (98-107); CREATININE 1.7 MG/DL (0.55-1.30); POTASSIUM 4.9 MMOL/L (3.5-5.1); SODIUM 133 MMOL/L (136-145)
[2019-03-11 07:34] LABS: BILIRUBIN,DIRECT 3.5 MG/DL (0.0-0.3)
[2019-03-11 08:00] VITALS: BP 110/69
[2019-03-11] MEDS: Thiamine 100mg tab ORAL SCH (08:34)
[2019-03-11] MEDS: Lactulose 10gm/15ml UDC ORAL SCH ×3 (08:34→17:18)
[2019-03-11] MEDS: Lactobacillus-GG tablet ORAL SCH ×2 (08:34→21:11)
--- NOTE | 2019-03-11 09:05 | Urology Progress Note ---
Assessment/Plan Status: unchanged Assessment/Plan: 1. Gross hematuria history, improved. 2. Urinary retention. 3. Probable neurogenic bladder. 4. Urinary tract infection history. 5. Sepsis history. 6. STEFANI. monitor clinically delgado out and voiding abx as ordered monitor renal flomax 0.8 mg Subjective Allergies: Coded Allergies: No Known Allergies (Unverified , 02/10/15) Subjective all noted, voiding Objective Last 24 Hour Vital Signs Date Time Temp Pulse Resp B/P (MAP) Pulse Ox O2 Delivery O2 Flow Rate FiO2 03/11/19 08:00 97.5 108 20 110/69 (83) 98 03/11/19 04:00 94 03/11/19 04:00 97.7 86 17 97/70 (79) 98 03/11/19 00:00 98.3 106 18 109/67 (81) 98 03/11/19 00:00 81 03/10/19 21:00 Room Air Room Air 03/10/19 20:00 98.1 106 20 108/74 (85) 98 03/10/19 20:00 103 03/10/19 16:00 97.5 103 20 108/69 (82) 99 03/10/19 16:00 107 03/10/19 12:00 103 03/10/19 12:00 97.7 103 20 108/72 (84) 98 Intake and Output 03/10/19 03/11/19 18:59 06:59 Intake Total 840 ml Output Total 1220 ml 550 ml Balance -380 ml -550 ml Intake Oral 840 ml Output Urine Total 1220 ml 550 ml # Bowel Movements 3 Microbiology Date/Time Source Procedure Growth Status 03/08/19 18:15 Blood Blood Culture - Preliminary NO GROWTH AFTER 48 HOURS Resulted 03/05/19 12:30 Body Fluid Gram Stain - Final Complete 03/05/19 12:30 Body Fluid Body Fluid Culture - Final NO GROWTH Complete 02/27/19 15:00 Sputum Expectorated Pneumocystis jiroveci Smear (DFA) - Final Complete 02/22/19 23:55 Stool Clostridium difficile Toxin Assay - Final Complete 03/08/19 21:20 Indwelling Cath Urine Culture - Final NO GROWTH AFTER 48 HOURS Complete Current Medications Medications (Trade) Dose Ordered Sig/Tonny Route PRN Reason Start Time Stop Time Status Last Admin Dose Admin Ceftriaxone Sodium 1 gm/ Dextrose 50 ml @ 100 mls/hr Q24H IVPB 03/08/19 18:00 03/15/19 17:59 03/10/19 17:38 Chlorhexidine Gluconate (Stephanie-Hex 2%) 1 applic DAILY@2000 TOPIC 03/04/19 20:00 04/03/19 19:59 03/10/19 20:59 Dextrose (Dextrose 50%) 25 ml Q30M PRN IV Hypoglycemia 03/02/19 17:45 03/16/19 16:14 Dextrose (Dextrose 50%) 50 ml Q30M PRN IV Hypoglycemia 03/02/19 17:45 03/16/19 16:14 Lactobacillus Acidophilus (Culturelle) 1 tab EVERY 12 HOURS ORAL 03/02/19 21:00 03/26/19 17:59 03/11/19 08:34 Lactulose (Cephulac) 10 gm THREE TIMES A DAY ORAL 03/02/19 18:00 04/01/19 12:59 03/11/19 08:34 Lansoprazole (Prevacid) 30 mg EVERY 12 HOURS ORAL 03/02/19 21:00 03/26/19 17:59 03/11/19 08:34 Levetiracetam (Keppra) 500 mg Q12HR ORAL 03/03/19 21:00 04/02/19 20:59 03/11/19 08:34 Metronidazole 100 ml @ 100 mls/hr Q8HR IVPB 03/08/19 22:00 03/15/19 21:59 03/11/19 06:02 Ondansetron HCl (Zofran) 4 mg Q6H PRN IVP Nausea & Vomiting 03/02/19 18:30 03/16/19 18:29 Rifaximin (Xifaxan) 550 mg EVERY 12 HOURS ORAL 03/02/19 21:00 03/15/19 20:59 03/11/19 08:34 Tamsulosin HCl (Flomax) 0.8 mg BEDTIME ORAL 03/05/19 21:30 04/04/19 21:29 03/10/19 21:00 Thiamine HCl (Vitamin B1) 100 mg DAILY ORAL 03/07/19 09:00 03/27/19 08:59 03/11/19 08:34 Laboratory Tests 03/11/19 04:00: White Blood Count 22.4*H, Red Blood Count 2.70L, Hemoglobin 8.5L, Hematocrit 26.6L, Mean Corpuscular Volume 98, Mean Corpuscular Hemoglobin 31.6H, Mean Corpuscular Hemoglobin Concent 32.1, Red Cell Distribution Width 15.6H, Platelet Count 126L, Mean Platelet Volume 7.5, Neutrophils (%) (Auto) , Lymphocytes (%) (Auto) , Monocytes (%) (Auto) , Eosinophils (%) (Auto) , Basophils (%) (Auto) , Differential Total Cells Counted 100, Neutrophils % ( Manual) 79H, Lymphocytes % (Manual) 8L, Monocytes % (Manual) 12H, Eosinophils % (Manual) 1, Basophils % (Manual) 0, Band Neutrophils 0, Platelet Estimate DecreasedL, Platelet Morphology Normal, Hypochromasia 1+, Anisocytosis 1+, Sodium Level 133L, Potassium Level 4.9, Chloride Level 102, Carbon Dioxide Level 26, Anion Gap 6, Blood Urea Nitrogen 23H, Creatinine 1.7H, Estimat Glomerular Filtration Rate 51.0, Glucose Level 108H, Calcium Level 7.9L, Total Bilirubin 4.4H, Direct Bilirubin 3.5H, Aspartate Amino Transf (AST/SGOT) 59H, Alanine Aminotransferase (ALT/SGPT) 26, Alkaline Phosphatase 190H, Total Protein 6.8, Albumin 1.4L, Globulin 5.4, Albumin/Globulin Ratio 0.3L Height (Feet): 5 Height (Inches): 5.00 Weight (Pounds): 165 Objective exam stable Jeremy Matta MD Mar 11, 2019 09:05
--- NOTE | 2019-03-11 09:14 | Hematology/Onc Progress Note ---
Assessment/Plan Assessment/Plan # Bicytopenia with anemia likely due to Gi bleed -- stool occult blood +, requires further eval with gi, also with etoh withdrawal, also can be related to meds/abx, Hida shows Limited hepatic uptake and excretion, probably due to hepatocellular disease. Note that previous imaging studies suggest the presence of cirrhotic changes. Also there is potential component of active infection of causing bicytopenia --> anemia panel has been reviewed and results are acd --> continue on folate 1mg po daily (LOW FOLATE) --> Flow cytometry shows no evidence of b-lymphoproliferative disorder --> Hep panel negative --> thoracentesis cytology negative for malignant cells --> plt trend 300k-->170k-->138k-->130k-->126k # Anemia of chronic disease, per anemia panel --> hgb trend 8-->7-->8-->9-->8.6-->7.7-->7.9-->8.3-->7.9->8.5-->9-->10-->9.9--> 7.7-->9.4-->8.9-->8.7-->8.5 --> peripheral smear reviewed and not noted to have blasts --> may require gi eval when more stable with scope (EGD) --> transfuse if hgb <7 --> cont folic acid and thiamine # Leukocytosis due to Septic shock and severe Lactic acidosis on Levophed and broad-spectrum IV antibiotics. --> per ID care, continue abx --> pressor as needed --> flagyl, cefepime, carmen--> NOW flagyl, ceftriaxone --> wbc trend: 34.9 -->28k-->35k-->17k-->20.7-->22k-->24k-->22k # Coagulopathy with a history of liver disease/cirrhosis (HX OF ETOH abuse) --> no evidence of gi bleed at this time --> vit K to be given sq on prn basis # Sinus tachycardia up to 170s. No evidence of acute mi --> This is likely due to sepsis and anemia, alcohol withdrawal --> Echo Nl EF 60% # Troponin leak, type 2 --> per cards # Respiratory failure on the vent. Has failed weaning --> sbt trial per pulm, now extubated --> 02/27 the bronchoscope was advanced into both mainstem bronchi and subsegmental bronchi. There was increased secretions b/l, mucopurulent including mucus plugging of the right upper lobe, which was therapeutically aspirated. BAL specimen was sent. # Transaminitis with elev bilis --> as per gi with ast/alt high --> monitor for resolution of sepsis # ETOH withdrawal --> recommend etoh cessation # Seizures with noncompliance --> per neuro Greatly appreciate consultation. Subjective Constitutional: Denies: no symptoms, chills, fever, malaise, weakness, other HEENT: Denies: no symptoms, eye pain, blurred vision, tearing, double vision, ear pain, ear discharge, nose pain, nose congestion, throat pain, throat swelling, mouth pain, mouth swelling, other Respiratory: Denies: no symptoms, cough, shortness of breath, SOB with excertion, SOB at rest, sputum, wheezing, other Gastrointestinal/Abdominal: Denies: no symptoms, abdomen distended, abdominal pain, black stools, tarry stools, blood in stool, constipated, diarrhea, difficulty swallowing, nausea, poor appetite, poor fluid intake, rectal bleeding , vomiting, other Genitourinary: Denies: no symptoms, burning, discharge, frequency, flank pain, hematuria, incontinence, pain, urgency, other Neurologic/Psychiatric: Denies: no symptoms, anxiety, depressed, emotional problems, headache, numbness, paresthesia, pre-existing deficit, seizure, tingling, tremors, weakness, other Endocrine: Denies: no symptoms, excessive sweating, flushing, intolerance to cold, intolerance to heat, increased hunger, increased thirst, increased urine, unexplained weight gain, unexplained weight loss, other Allergies: Coded Allergies: No Known Allergies (Unverified , 02/10/15) Subjective 02/20: intubated, counts are better, on vent, sbt in process, no f/c, mag low 02/21: endoscopy on hold at this time, bloody stool, plt better, on abx 02/22: no events reported, remains intubated, no bleeding, plt better, k is low, repleted\ 02/23: remains in icu, letargic, flow cytometry showed no evidence of b- lymphoproliferative disorder, c-diif negative, labs reviewed, remains on levo 02/24: in icu, on vent, wbc at 32, id made aware. 02/25: icu, weaning off of vent, labs reviewed, continues on abx 02/26: no fc, no changes reported, wbc high, ongoing hida scan 02/27: no events, bronch to be done today, results pending 02/28: no f/c, restraints++, ogt was inserted 03/01: s/p extubation, self-extubated, otherwise on abx, off pressors 03/02: no events too report, labs have been reviewed, off abx, remains agitated 03/03 no fevers or chills, no changes, breathing better, less altered 03/05: no events, no bleeding, hgb 7.7, on RA only, sating well 03/06: hgb is low, otherwise without event, slightly improved, as per gi transaminitis, bilis are better 03/07: no overnight events, still jaundiced, delgado removed, h/h stable, thoracentesis cytology negative for malignant cells 03/08: patient is asleep, delgado draining well to gravity, no f/c, no major changes , seen by uro 03/09: gross hematuria has improved, seen by uro, no f/c 03/11: is resting in bed, is comfortable, remains relatively unchanged, remains on abx Objective Objective Current Medications Medications (Trade) Dose Ordered Sig/Tonny Route PRN Reason Start Time Stop Time Status Last Admin Dose Admin Ceftriaxone Sodium 1 gm/ Dextrose 50 ml @ 100 mls/hr Q24H IVPB 03/08/19 18:00 03/15/19 17:59 03/10/19 17:38 Chlorhexidine Gluconate (Stephanie-Hex 2%) 1 applic DAILY@1999 TOPIC 03/04/19 20:00 04/03/19 19:59 03/10/19 20:59 Dextrose (Dextrose 50%) 25 ml Q30M PRN IV Hypoglycemia 03/02/19 17:45 03/16/19 16:14 Dextrose (Dextrose 50%) 50 ml Q30M PRN IV Hypoglycemia 03/02/19 17:45 03/16/19 16:14 Lactobacillus Acidophilus (Culturelle) 1 tab EVERY 12 HOURS ORAL 03/02/19 21:00 03/26/19 17:59 03/11/19 08:34 Lactulose (Cephulac) 10 gm THREE TIMES A DAY ORAL 03/02/19 18:00 04/01/19 12:59 03/11/19 08:34 Lansoprazole (Prevacid) 30 mg EVERY 12 HOURS ORAL 03/02/19 21:00 03/26/19 17:59 03/11/19 08:34 Levetiracetam (Keppra) 500 mg Q12HR ORAL 03/03/19 21:00 04/02/19 20:59 03/11/19 08:34 Metronidazole 100 ml @ 100 mls/hr Q8HR IVPB 03/08/19 22:00 03/15/19 21:59 03/11/19 06:02 Ondansetron HCl (Zofran) 4 mg Q6H PRN IVP Nausea & Vomiting 03/02/19 18:30 03/16/19 18:29 Rifaximin (Xifaxan) 550 mg EVERY 12 HOURS ORAL 03/02/19 21:00 03/15/19 20:59 03/11/19 08:34 Tamsulosin HCl (Flomax) 0.8 mg BEDTIME ORAL 03/05/19 21:30 04/04/19 21:29 03/10/19 21:00 Thiamine HCl (Vitamin B1) 100 mg DAILY ORAL 03/07/19 09:00 03/27/19 08:59 03/11/19 08:34 Last 24 Hour Vital Signs Date Time Temp Pulse Resp B/P (MAP) Pulse Ox O2 Delivery O2 Flow Rate FiO2 03/11/19 08:00 97.5 108 20 110/69 (83) 98 03/11/19 04:00 94 03/11/19 04:00 97.7 86 17 97/70 (79) 98 03/11/19 00:00 98.3 106 18 109/67 (81) 98 03/11/19 00:00 81 03/10/19 21:00 Room Air Room Air 03/10/19 20:00 98.1 106 20 108/74 (85) 98 03/10/19 20:00 103 03/10/19 16:00 97.5 103 20 108/69 (82) 99 03/10/19 16:00 107 03/10/19 12:00 103 03/10/19 12:00 97.7 103 20 108/72 (84) 98 03/10/19 09:00 Room Air Room Air 03/10/19 08:00 104 03/10/19 08:00 97.8 105 20 107/72 (84) 96 03/10/19 04:00 98.1 102 18 104/69 (81) 97 03/10/19 04:00 100 03/10/19 03:49 100 03/10/19 00:00 97.5 103 18 99/66 (77) 98 03/09/19 23:31 105 03/09/19 21:00 Room Air Room Air 03/09/19 20:18 99 03/09/19 20:00 98.2 102 18 116/77 (90) 98 03/09/19 16:00 94 03/09/19 16:00 97.2 95 18 111/74 (86) 98 96 03/09/19 12:00 98 03/09/19 12:00 97.2 106 20 110/75 (87) 98 96 03/09/19 10:22 Room Air Room Air Intake and Output 03/10/19 03/11/19 18:59 06:59 Intake Total 840 ml Output Total 1220 ml 550 ml Balance -380 ml -550 ml Intake Oral 840 ml Output Urine Total 1220 ml 550 ml # Bowel Movements 3 Labs Test 03/09/19 06:15 03/09/19 07:55 03/10/19 06:23 03/11/19 04:00 White Blood Count 23.8 K/UL (4.8-10.8) 21.4 K/UL (4.8-10.8) 22.4 K/UL (4.8-10.8) Red Blood Count 2.77 M/UL (4.70-6.10) 2.63 M/UL (4.70-6.10) 2.70 M/UL (4.70-6.10) Hemoglobin 8.7 G/DL (14.2-18.0) 8.3 G/DL (14.2-18.0) 8.5 G/DL (14.2-18.0) Hematocrit 26.6 % (42.0-52.0) 25.6 % (42.0-52.0) 26.6 % (42.0-52.0) Mean Corpuscular Volume 96 FL (80-99) 97 FL (80-99) 98 FL (80-99) Mean Corpuscular Hemoglobin 31.3 PG (27.0-31.0) 31.7 PG (27.0-31.0) 31.6 PG (27.0-31.0) Mean Corpuscular Hemoglobin Concent 32.6 G/DL (32.0-36.0) 32.6 G/DL (32.0-36.0) 32.1 G/DL (32.0-36.0) Red Cell Distribution Width 15.4 % (11.6-14.8) 15.3 % (11.6-14.8) 15.6 % (11.6-14.8) Platelet Count 130 K/UL (150-450) 137 K/UL (150-450) 126 K/UL (150-450) Mean Platelet Volume 7.8 FL (6.5-10.1) 7.6 FL (6.5-10.1) 7.5 FL (6.5-10.1) Neutrophils (%) (Auto) % (45.0-75.0) % (45.0-75.0) % (45.0-75.0) Lymphocytes (%) (Auto) % (20.0-45.0) % (20.0-45.0) % (20.0-45.0) Monocytes (%) (Auto) % (1.0-10.0) % (1.0-10.0) % (1.0-10.0) Eosinophils (%) (Auto) % (0.0-3.0) % (0.0-3.0) % (0.0-3.0) Basophils (%) (Auto) % (0.0-2.0) % (0.0-2.0) % (0.0-2.0) Differential Total Cells Counted 100 100 100 Neutrophils % (Manual) 73 % (45-75) 80 % (45-75) 79 % (45-75) Lymphocytes % (Manual) 8 % (20-45) 7 % (20-45) 8 % (20-45) Monocytes % (Manual) 12 % (1-10) 9 % (1-10) 12 % (1-10) Eosinophils % (Manual) 4 % (0-3) 4 % (0-3) 1 % (0-3) Basophils % (Manual) 3 % (0-2) 0 % (0-2) 0 % (0-2) Band Neutrophils 0 % (0-8) 0 % (0-8) 0 % (0-8) Platelet Estimate Decreased Decreased Decreased Platelet Morphology Normal Normal Normal Red Blood Cell Morphology Normal Hypochromasia 2+ 2+ 1+ Sodium Level 131 MMOL/L (136-145) 133 MMOL/L (136-145) 133 MMOL/L (136-145) Potassium Level 4.2 MMOL/L (3.5-5.1) 4.6 MMOL/L (3.5-5.1) 4.9 MMOL/L (3.5-5.1) Chloride Level 103 MMOL/L (98-107) 103 MMOL/L (98-107) 102 MMOL/L (98-107) Carbon Dioxide Level 22 MMOL/L (21-32) 25 MMOL/L (21-32) 26 MMOL/L (21-32) Anion Gap 6 mmol/L (5-15) 6 mmol/L (5-15) 6 mmol/L (5-15) Blood Urea Nitrogen 22 mg/dL (7-18) 22 mg/dL (7-18) 23 mg/dL (7-18) Creatinine 1.8 MG/DL (0.55-1.30) 1.7 MG/DL (0.55-1.30) 1.7 MG/DL (0.55-1.30) Estimat Glomerular Filtration Rate 47.8 mL/min (>60) 51.0 mL/min (>60) 51.0 mL/min (>60) Glucose Level 121 MG/DL (74-106) 106 MG/DL (74-106) 108 MG/DL (74-106) Calcium Level 7.7 MG/DL (8.5-10.1) 7.9 MG/DL (8.5-10.1) 7.9 MG/DL (8.5-10.1) Total Bilirubin 5.6 MG/DL (0.2-1.0) 4.4 MG/DL (0.2-1.0) 4.4 MG/DL (0.2-1.0) Direct Bilirubin 4.5 MG/DL (0.0-0.3) 3.8 MG/DL (0.0-0.3) 3.5 MG/DL (0.0-0.3) Aspartate Amino Transf (AST/SGOT) 64 U/L (15-37) 61 U/L (15-37) 59 U/L (15-37) Alanine Aminotransferase (ALT/SGPT) 32 U/L (12-78) 28 U/L (12-78) 26 U/L (12-78) Alkaline Phosphatase 188 U/L (46-116) 184 U/L (46-116) 190 U/L (46-116) Total Protein 6.7 G/DL (6.4-8.2) 6.5 G/DL (6.4-8.2) 6.8 G/DL (6.4-8.2) Albumin 1.4 G/DL (3.4-5.0) 1.3 G/DL (3.4-5.0) 1.4 G/DL (3.4-5.0) Globulin 5.3 g/dL 5.2 g/dL 5.4 g/dL Albumin/Globulin Ratio 0.3 (1.0-2.7) 0.2 (1.0-2.7) 0.3 (1.0-2.7) Urine Color Brown Urine Appearance Slightly cloudy Urine pH 6 (4.5-8.0) Urine Specific [place] 1.015 (1.005-1.035) Urine Protein 2+ (NEGATIVE) Urine Glucose (UA) Negative (NEGATIVE) Urine Ketones Negative (NEGATIVE) Urine Blood 5+ (NEGATIVE) Urine Nitrite Negative (NEGATIVE) Urine Bilirubin Negative (NEGATIVE) Urine Urobilinogen Normal MG/DL (0.0-1.0) Urine Leukocyte Esterase 2+ (NEGATIVE) Urine RBC 40-60 /HPF (0 - 0) Urine WBC 2-4 /HPF (0 - 0) Urine Squamous Epithelial Cells None /LPF (NONE/OCC) Urine Bacteria Few /HPF (NONE) Anisocytosis 1+ 1+ Height (Feet): 5 Height (Inches): 5.00 Weight (Pounds): 165 Objective Gen: NAD Heent: atraumatic, other - OGT Lungs: clear, ++RA sating 95% Heart: HR/BP unstable Abdomen: soft, non-tender, active bowel sounds Extremities: no cce, L femoral cath+, bilateral wrist restraints are off Robert Johnston MD Mar 11, 2019 09:14
[2019-03-11 12:00] VITALS: BP 109/80
--- NOTE | 2019-03-11 12:00 | Nephrology Progress Note ---
Assessment/Plan Problem List: (1) STEFANI (acute kidney injury) Assessment: renal function stable (2) Seizure disorder (3) Septic shock (4) Abnormal LFTs Plan abxs follow labs Subjective Subjective In NAD Objective Objective Last 24 Hour Vital Signs Date Time Temp Pulse Resp B/P (MAP) Pulse Ox O2 Delivery O2 Flow Rate FiO2 03/11/19 09:00 Room Air Room Air 03/11/19 08:00 113 03/11/19 08:00 97.5 108 20 110/69 (83) 98 03/11/19 04:00 94 03/11/19 04:00 97.7 86 17 97/70 (79) 98 03/11/19 00:00 98.3 106 18 109/67 (81) 98 03/11/19 00:00 81 03/10/19 21:00 Room Air Room Air 03/10/19 20:00 98.1 106 20 108/74 (85) 98 03/10/19 20:00 103 03/10/19 16:00 97.5 103 20 108/69 (82) 99 03/10/19 16:00 107 03/10/19 12:00 103 03/10/19 12:00 97.7 103 20 108/72 (84) 98 Intake and Output 03/10/19 03/11/19 18:59 06:59 Intake Total 840 ml Output Total 1220 ml 550 ml Balance -380 ml -550 ml Intake Oral 840 ml Output Urine Total 1220 ml 550 ml # Bowel Movements 3 Laboratory Tests 03/11/19 04:00: White Blood Count 22.4*H, Red Blood Count 2.70L, Hemoglobin 8.5L, Hematocrit 26.6L, Mean Corpuscular Volume 98, Mean Corpuscular Hemoglobin 31.6H, Mean Corpuscular Hemoglobin Concent 32.1, Red Cell Distribution Width 15.6H, Platelet Count 126L, Mean Platelet Volume 7.5, Neutrophils (%) (Auto) , Lymphocytes (%) (Auto) , Monocytes (%) (Auto) , Eosinophils (%) (Auto) , Basophils (%) (Auto) , Differential Total Cells Counted 100, Neutrophils % ( Manual) 79H, Lymphocytes % (Manual) 8L, Monocytes % (Manual) 12H, Eosinophils % (Manual) 1, Basophils % (Manual) 0, Band Neutrophils 0, Platelet Estimate DecreasedL, Platelet Morphology Normal, Hypochromasia 1+, Anisocytosis 1+, Sodium Level 133L, Potassium Level 4.9, Chloride Level 102, Carbon Dioxide Level 26, Anion Gap 6, Blood Urea Nitrogen 23H, Creatinine 1.7H, Estimat Glomerular Filtration Rate 51.0, Glucose Level 108H, Calcium Level 7.9L, Total Bilirubin 4.4H, Direct Bilirubin 3.5H, Aspartate Amino Transf (AST/SGOT) 59H, Alanine Aminotransferase (ALT/SGPT) 26, Alkaline Phosphatase 190H, Total Protein 6.8, Albumin 1.4L, Globulin 5.4, Albumin/Globulin Ratio 0.3L Height (Feet): 5 Height (Inches): 5.00 Weight (Pounds): 165 Cardiovascular: normal rate Respiratory/Chest: lungs clear Extremities: other - no edema James Nick MD Mar 11, 2019 12:00
--- NOTE | 2019-03-11 13:19 | Cardiac Electrophysiology PN ---
Assessment/Plan Assessment/Plan 1. Sinus tachycardia up to 170s. No myocardial infarction . Due to sepsis and anemia and alcohol withdrawal. EF 60%. In SR in 90-100s 2. S/P Septic shock and E Coli bacteremia, on 3 broad-spectrum IV antibiotics. 3. Troponin leak. Type 2. No CP 4. S/P Respiratory failure. Self extubated S/P Bronchoscopy and removal of mucus plug 5. ETOH withdrawal 6. Seizures with noncompliance. 7. Upper gi bleed. S/P EGD 8. Hematuria, resolved 9. Coffee ground emesis. EGD showed a. Medium-sized hiatal hernia. b. Portal hypertensive gastropathy, status post biopsy. 10. Liver cirrhosis with ascites. Billirubin down [address] Goldberg S/P Paracentesis 4 liters on 03/04/19. On Lactulose S/P Paracentesis 3 liters 03/15/19 CONSTANCE RN DC planning on Tuesday vs Paracentesis if US more Ascites Subjective Subjective In SR in NAD. Had [address] abdomen and Pelvis 03/09/19. Plan possible repeat US Tuesday Objective Last 24 Hour Vital Signs Date Time Temp Pulse Resp B/P (MAP) Pulse Ox O2 Delivery O2 Flow Rate FiO2 03/11/19 12:00 98.2 103 20 109/80 (90) 99 03/11/19 09:00 Room Air Room Air 03/11/19 08:00 113 03/11/19 08:00 97.5 108 20 110/69 (83) 98 03/11/19 04:00 94 03/11/19 04:00 97.7 86 17 97/70 (79) 98 03/11/19 00:00 98.3 106 18 109/67 (81) 98 03/11/19 00:00 81 03/10/19 21:00 Room Air Room Air 03/10/19 20:00 98.1 106 20 108/74 (85) 98 03/10/19 20:00 103 03/10/19 16:00 97.5 103 20 108/69 (82) 99 03/10/19 16:00 107 Intake and Output 03/10/19 03/11/19 19:00 07:00 Intake Total 840 ml Output Total 1220 ml 550 ml Balance -380 ml -550 ml Intake Oral 840 ml Output Urine Total 1220 ml 550 ml # Bowel Movements 3 Laboratory Tests Test 03/11/19 04:00 White Blood Count 22.4 K/UL (4.8-10.8) *H Red Blood Count 2.70 M/UL (4.70-6.10) L Hemoglobin 8.5 G/DL (14.2-18.0) L Hematocrit 26.6 % (42.0-52.0) L Mean Corpuscular Volume 98 FL (80-99) Mean Corpuscular Hemoglobin 31.6 PG (27.0-31.0) H Mean Corpuscular Hemoglobin Concent 32.1 G/DL (32.0-36.0) Red Cell Distribution Width 15.6 % (11.6-14.8) H Platelet Count 126 K/UL (150-450) L Mean Platelet Volume 7.5 FL (6.5-10.1) Neutrophils (%) (Auto) % (45.0-75.0) Lymphocytes (%) (Auto) % (20.0-45.0) Monocytes (%) (Auto) % (1.0-10.0) Eosinophils (%) (Auto) % (0.0-3.0) Basophils (%) (Auto) % (0.0-2.0) Differential Total Cells Counted 100 Neutrophils % (Manual) 79 % (45-75) H Lymphocytes % (Manual) 8 % (20-45) L Monocytes % (Manual) 12 % (1-10) H Eosinophils % (Manual) 1 % (0-3) Basophils % (Manual) 0 % (0-2) Band Neutrophils 0 % (0-8) Platelet Estimate Decreased L Platelet Morphology Normal Hypochromasia 1+ Anisocytosis 1+ Sodium Level 133 MMOL/L (136-145) L Potassium Level 4.9 MMOL/L (3.5-5.1) Chloride Level 102 MMOL/L (98-107) Carbon Dioxide Level 26 MMOL/L (21-32) Anion Gap 6 mmol/L (5-15) Blood Urea Nitrogen 23 mg/dL (7-18) H Creatinine 1.7 MG/DL (0.55-1.30) H Estimat Glomerular Filtration Rate 51.0 mL/min (>60) Glucose Level 108 MG/DL (74-106) H Calcium Level 7.9 MG/DL (8.5-10.1) L Total Bilirubin 4.4 MG/DL (0.2-1.0) H Direct Bilirubin 3.5 MG/DL (0.0-0.3) H Aspartate Amino Transf (AST/SGOT) 59 U/L (15-37) H Alanine Aminotransferase (ALT/SGPT) 26 U/L (12-78) Alkaline Phosphatase 190 U/L (46-116) H Total Protein 6.8 G/DL (6.4-8.2) Albumin 1.4 G/DL (3.4-5.0) L Globulin 5.4 g/dL Albumin/Globulin Ratio 0.3 (1.0-2.7) L Microbiology Date/Time Source Procedure Growth Status 03/08/19 18:15 Blood Blood Culture - Preliminary NO GROWTH AFTER 48 HOURS Resulted 03/08/19 18:00 Blood Blood Culture - Preliminary NO GROWTH AFTER 48 HOURS Resulted 03/08/19 21:20 Indwelling Cath Urine Culture - Final NO GROWTH AFTER 48 HOURS Complete Objective HEAD AND NECK: No JV. Icteric sclera LUNGS: Decreased breath sounds. CARDIOVASCULAR: Regular S1 and S2 with no gallop or murmur. ABDOMEN: Soft. EXTREMITIES: No pitting edema. Fidencio Trevino MD Mar 11, 2019 13:19
[2019-03-11] MEDS ORDERED: NS 275ml ONE (15:33)
[2019-03-11] MEDS ORDERED: Tubing IV Secondary IV ONE (15:33)
--- NOTE | 2019-03-11 15:57 | NUR ---
CASE MANAGEMENT: REVIEW SI: SEIZURE . LUNG INFILTRATES . ASCITES PARACENTESIS 03/09 EGD w/BIOPSY 03/01 BRONCHOSCOPY w/BRONCHOALVEOLAR LAVAGE . ASPIRATION OF MUCOUS PLUG 02/27 T 97.5 HR 108 RR 20 BP 97/70 SAT 98% ROOM AIR WBC 22.4 H/H 8.5/26.6 NA 133 BUN 23 CR 1.7 I S: FLAGYL IV Q8HR CEFTRIAXONE IV Q24HR THIAMINE PO QD KEPPRA PO Q12HR RIFAXIMIN PO Q12HR LACTULOSE PO TID TELEMETRY UNIT STATUS DCP: PATIENT IS FROM HOME
[2019-03-11 16:00] VITALS: BP 108/68
[2019-03-11] MEDS: cefTRIAXone 1 GM in D5W 50 ML IVPB SCH (17:18)
--- NOTE | 2019-03-11 19:10 | NUR ---
HAND-OFF: Report given to ESHA Hull.
[2019-03-11 20:00] VITALS: BP 112/74
--- NOTE | 2019-03-11 20:27 | Surgery Progress Note ---
Surgery Progress Note Subjective Procedure Performed \ Additional Comments late entry as patient seen earlier today. afebrile, HD stable, exam stable. persistent leukocytosis. lfts improved Objective Last 24 Hour Vital Signs Date Time Temp Pulse Resp B/P (MAP) Pulse Ox O2 Delivery O2 Flow Rate FiO2 03/11/19 16:00 98.6 96 18 108/68 (81) 100 03/11/19 16:00 107 03/11/19 12:00 98.2 103 20 109/80 (90) 99 03/11/19 11:49 105 03/11/19 09:00 Room Air Room Air 03/11/19 08:00 113 03/11/19 08:00 97.5 108 20 110/69 (83) 98 03/11/19 04:00 94 03/11/19 04:00 97.7 86 17 97/70 (79) 98 03/11/19 00:00 98.3 106 18 109/67 (81) 98 03/11/19 00:00 81 03/10/19 21:00 Room Air Room Air I&O Intake and Output 03/10/19 03/11/19 19:00 07:00 Intake Total 840 ml Output Total 1220 ml 550 ml Balance -380 ml -550 ml Intake Oral 840 ml Output Urine Total 1220 ml 550 ml # Bowel Movements 3 Cardiovascular: RSR Respiratory: clear Abdomen: soft, distended, non-tender, present bowel sounds Extremities: no edema, no tenderness, no cyanosis Laboratory Tests Test 03/11/19 04:00 White Blood Count 22.4 K/UL (4.8-10.8) *H Red Blood Count 2.70 M/UL (4.70-6.10) L Hemoglobin 8.5 G/DL (14.2-18.0) L Hematocrit 26.6 % (42.0-52.0) L Mean Corpuscular Volume 98 FL (80-99) Mean Corpuscular Hemoglobin 31.6 PG (27.0-31.0) H Mean Corpuscular Hemoglobin Concent 32.1 G/DL (32.0-36.0) Red Cell Distribution Width 15.6 % (11.6-14.8) H Platelet Count 126 K/UL (150-450) L Mean Platelet Volume 7.5 FL (6.5-10.1) Neutrophils (%) (Auto) % (45.0-75.0) Lymphocytes (%) (Auto) % (20.0-45.0) Monocytes (%) (Auto) % (1.0-10.0) Eosinophils (%) (Auto) % (0.0-3.0) Basophils (%) (Auto) % (0.0-2.0) Differential Total Cells Counted 100 Neutrophils % (Manual) 79 % (45-75) H Lymphocytes % (Manual) 8 % (20-45) L Monocytes % (Manual) 12 % (1-10) H Eosinophils % (Manual) 1 % (0-3) Basophils % (Manual) 0 % (0-2) Band Neutrophils 0 % (0-8) Platelet Estimate Decreased L Platelet Morphology Normal Hypochromasia 1+ Anisocytosis 1+ Sodium Level 133 MMOL/L (136-145) L Potassium Level 4.9 MMOL/L (3.5-5.1) Chloride Level 102 MMOL/L (98-107) Carbon Dioxide Level 26 MMOL/L (21-32) Anion Gap 6 mmol/L (5-15) Blood Urea Nitrogen 23 mg/dL (7-18) H Creatinine 1.7 MG/DL (0.55-1.30) H Estimat Glomerular Filtration Rate 51.0 mL/min (>60) Glucose Level 108 MG/DL (74-106) H Calcium Level 7.9 MG/DL (8.5-10.1) L Total Bilirubin 4.4 MG/DL (0.2-1.0) H Direct Bilirubin 3.5 MG/DL (0.0-0.3) H Aspartate Amino Transf (AST/SGOT) 59 U/L (15-37) H Alanine Aminotransferase (ALT/SGPT) 26 U/L (12-78) Alkaline Phosphatase 190 U/L (46-116) H Total Protein 6.8 G/DL (6.4-8.2) Albumin 1.4 G/DL (3.4-5.0) L Globulin 5.4 g/dL Albumin/Globulin Ratio 0.3 (1.0-2.7) L Plan Problems: (1) Non-compliance Assessment & Plan: Noncompliance with seizure medication with known history of seizures Now had seizure Appreciate neurology input (2) Electrolyte and fluid disorder Assessment & Plan: Likely due to EtOH use and dehydration IV hydration Trend labs (3) Fever (4) Oral thrush (5) Diarrhea (6) Aspiration pneumonia (7) Seizure disorder (8) Tachycardia (9) Altered mental status (10) Alcohol withdrawal seizure (11) Alcohol withdrawal seizure (12) Episode of confusion (13) Coffee ground emesis (14) Gastrointestinal bleed Assessment & Plan: Patient on admission identified to have maroon-colored stool and coffee-ground emesis. Labs noted mild anemia with H&H trending down. No acute active bleed noted but given patient's history high risk for potential ulcers. PPI Appreciate GI input considerations for EGD once stable No evidence of pulmonary embolus, aortic dissection or aneurysm. Posterior basilar consolidation suspicious for pneumonia. Correlate clinically. Trace bilateral pleural effusions. Possible enterocolitis as described above. Please correlate clinically. Mild ascites Fatty liver Cholelithiasis with wall thickening. Cholecystitis not excluded. Small right inguinal hernia containing fat Extensive breathing motion artifact limiting evaluation. We will follow with recommendations thank you (15) Sinus tachycardia (16) Septic shock (17) Sepsis Assessment & Plan: Patient septic leukocytosis improved today lactic acidosis resolved anemia renal function declining electrolyte disturbance US noted picc out transition to oral meds extubated doing well US noted again. liver decompensated HIDA noted and likely cirrhosis delgado AM labs reordered s/p para micro negative improving overall (18) Lactic acid acidosis (19) STEFANI (acute kidney injury) (20) Abnormal LFTs (21) High anion gap metabolic acidosis Juanpablo Marcus Mar 11, 2019 20:27
[2019-03-11] MEDS: Tamsulosin 0.4mg cap ORAL SCH (21:11)
[2019-03-11] MEDS: Dyna-Hex 2% Top Sol 2oz TOPIC SCH (21:12)
[2019-03-12] VITALS: BP 115/70
[2019-03-12 04:00] VITALS: BP 116/69
--- NOTE | 2019-03-12 07:15 | NUR ---
HAND-OFF: Report given to ESHA Mantilla, patient in stable condition, plan of care endorsed..
--- NOTE | 2019-03-12 07:16 | NUR ---
NURSE NOTES: Received pt from ESHA Hull in stable condition with no cardiopulmonary distress noted. Pt is awake in bed, AAOx3 on RA. Condom cath noted draining yellow urine. Skin alterations noted. DANIELLE PICC noted. Side rails padded per seizure precaution. Bed is in lowest position with alarm on, side rails up x 2, call light within reach. Will continue to monitor.
[2019-03-12 07:46] LABS: HEMATOCRIT 25.4 % (42.0-52.0); HEMOGLOBIN 8.2 G/DL (14.2-18.0); MEAN CORPUSCULAR VOLUME 98 FL (80-99); PLATELET COUNT 148 K/UL (150-450); RED BLOOD COUNT 2.58 M/UL (4.70-6.10); RED CELL DISTRIBUTION WIDTH 15.3 % (11.6-14.8); WHITE BLOOD COUNT 20.1 K/UL (4.8-10.8)
[2019-03-12 08:00] VITALS: BP 98/69
--- NOTE | 2019-03-12 08:31 | Urology Progress Note ---
Assessment/Plan Status: unchanged Assessment/Plan: 1. Gross hematuria history, improved. 2. Urinary retention. 3. Probable neurogenic bladder. 4. Urinary tract infection history. 5. Sepsis history. 6. STEFANI. monitor clinically delgado out and voiding abx as ordered monitor renal flomax 0.8 mg Subjective Allergies: Coded Allergies: No Known Allergies (Unverified , 02/10/15) Subjective all noted, voiding Objective Last 24 Hour Vital Signs Date Time Temp Pulse Resp B/P (MAP) Pulse Ox O2 Delivery O2 Flow Rate FiO2 03/12/19 08:00 97.0 111 22 98/69 (79) 98 03/12/19 04:00 97.5 95 18 116/69 (85) 99 03/12/19 04:00 114 03/12/19 00:00 77 03/12/19 00:00 97.5 98 18 115/70 (85) 100 03/11/19 21:00 Room Air Room Air 03/11/19 20:00 97.6 106 19 112/74 (87) 100 03/11/19 20:00 101 03/11/19 16:00 98.6 96 18 108/68 (81) 100 03/11/19 16:00 107 03/11/19 12:00 98.2 103 20 109/80 (90) 99 03/11/19 11:49 105 03/11/19 09:00 Room Air Room Air Intake and Output 03/11/19 03/12/19 18:59 06:59 Intake Total 480 ml Output Total 500 ml 700 ml Balance -20 ml -700 ml Intake Oral 480 ml Output Urine Total 500 ml 700 ml # Voids 3 # Bowel Movements 2 Microbiology Date/Time Source Procedure Growth Status 03/08/19 18:15 Blood Blood Culture - Preliminary NO GROWTH AFTER 72 HOURS Resulted 03/05/19 12:30 Body Fluid Gram Stain - Final Complete 03/05/19 12:30 Body Fluid Body Fluid Culture - Final NO GROWTH Complete 02/27/19 15:00 Sputum Expectorated Pneumocystis jiroveci Smear (DFA) - Final Complete 02/22/19 23:55 Stool Clostridium difficile Toxin Assay - Final Complete 03/08/19 21:20 Indwelling Cath Urine Culture - Final NO GROWTH AFTER 48 HOURS Complete Current Medications Medications (Trade) Dose Ordered Sig/Tonny Route PRN Reason Start Time Stop Time Status Last Admin Dose Admin Ceftriaxone Sodium 1 gm/ Dextrose 50 ml @ 100 mls/hr Q24H IVPB 03/08/19 18:00 03/15/19 17:59 03/11/19 17:18 Chlorhexidine Gluconate (Stephanie-Hex 2%) 1 applic DAILY@2000 TOPIC 03/04/19 20:00 04/03/19 19:59 03/11/19 21:12 Dextrose (Dextrose 50%) 25 ml Q30M PRN IV Hypoglycemia 03/02/19 17:45 03/16/19 16:14 Dextrose (Dextrose 50%) 50 ml Q30M PRN IV Hypoglycemia 03/02/19 17:45 03/16/19 16:14 Lactobacillus Acidophilus (Culturelle) 1 tab EVERY 12 HOURS ORAL 03/02/19 21:00 03/26/19 17:59 03/11/19 21:11 Lactulose (Cephulac) 10 gm THREE TIMES A DAY ORAL 03/02/19 18:00 04/01/19 12:59 03/11/19 17:18 Lansoprazole (Prevacid) 30 mg EVERY 12 HOURS ORAL 03/02/19 21:00 03/26/19 17:59 03/11/19 21:11 Levetiracetam (Keppra) 500 mg Q12HR ORAL 03/03/19 21:00 04/02/19 20:59 03/11/19 21:11 Metronidazole 100 ml @ 100 mls/hr Q8HR IVPB 03/08/19 22:00 03/15/19 21:59 03/12/19 05:58 Ondansetron HCl (Zofran) 4 mg Q6H PRN IVP Nausea & Vomiting 03/02/19 18:30 03/16/19 18:29 Rifaximin (Xifaxan) 550 mg EVERY 12 HOURS ORAL 03/02/19 21:00 03/15/19 20:59 03/11/19 21:11 Tamsulosin HCl (Flomax) 0.8 mg BEDTIME ORAL 03/05/19 21:30 04/04/19 21:29 03/11/19 21:11 Thiamine HCl (Vitamin B1) 100 mg DAILY ORAL 03/07/19 09:00 03/27/19 08:59 03/11/19 08:34 Laboratory Tests 03/12/19 06:00: White Blood Count 20.1H, Red Blood Count 2.58L, Hemoglobin 8.2L, Hematocrit 25.4L, Mean Corpuscular Volume 98, Mean Corpuscular Hemoglobin 31.6H, Mean Corpuscular Hemoglobin Concent 32.2, Red Cell Distribution Width 15.3H, Platelet Count 148L, Mean Platelet Volume 7.6, Neutrophils (%) (Auto) , Lymphocytes (%) (Auto) , Monocytes (%) (Auto) , Eosinophils (%) (Auto) , Basophils (%) (Auto) , Differential Total Cells Counted 100, Neutrophils % ( Manual) 76H, Lymphocytes % (Manual) 9L, Monocytes % (Manual) 12H, Eosinophils % (Manual) 3, Basophils % (Manual) 0, Band Neutrophils 0, Platelet Estimate DecreasedL, Platelet Morphology Normal, Hypochromasia 1+, Anisocytosis 1+, Sodium Level [Pending], Potassium Level [Pending], Chloride Level [Pending], Carbon Dioxide Level [Pending], Blood Urea Nitrogen [Pending], Creatinine [ Pending], Estimat Glomerular Filtration Rate [Pending], Glucose Level [Pending] , Calcium Level [Pending], Total Bilirubin [Pending], Aspartate Amino Transf ( AST/SGOT) [Pending], Alanine Aminotransferase (ALT/SGPT) [Pending], Alkaline Phosphatase [Pending], Total Protein [Pending], Albumin [Pending], Globulin [ Pending] Height (Feet): 5 Height (Inches): 5.00 Weight (Pounds): 167 Objective exam stable Jeremy Matta MD Mar 12, 2019 08:31
[2019-03-12 08:32] LABS: ALANINE AMINOTRANSFERASE 21 U/L (12-78); ALBUMIN 1.4 G/DL (3.4-5.0); ALBUMIN/GLOBULIN RATIO 0.3 (1.0-2.7); ALKALINE PHOSPHATASE 186 U/L (46-116); ANION GAP 5 mmol/L (5-15); ASPARTATE AMINO TRANSFERASE 55 U/L (15-37); BILIRUBIN,DIRECT 3.1 MG/DL (0.0-0.3); BILIRUBIN,TOTAL 3.7 MG/DL (0.2-1.0); BLOOD UREA NITROGEN 22 mg/dL (7-18); CALCIUM 8.1 MG/DL (8.5-10.1); CARBON DIOXIDE 25 MMOL/L (21-32); CHLORIDE 103 MMOL/L (98-107); CREATININE 1.7 MG/DL (0.55-1.30); SODIUM 133 MMOL/L (136-145)
[2019-03-12] MEDS: Lactulose 10gm/15ml UDC ORAL SCH ×3 (08:52→17:00)
[2019-03-12] MEDS: Thiamine 100mg tab ORAL SCH (08:52)
[2019-03-12] MEDS: Lactobacillus-GG tablet ORAL SCH ×2 (08:53→20:42)
--- NOTE | 2019-03-12 09:58 | NUR ---
WEEKLY SWALLOW/SPEECH THERAPY SUMMARY PATIENT SEEN FOR MOSTLY FOR DYSPHAGIA AND SOME SPEECH/COG/LANGUAGE ISSUES. GOALS FOR INTAKE NOT MET (25%) BUT MAY IMPROVE WITH DIET AND LIQUID UPGRADES TO MECH SOFT FINELY CHOPPED AND THIN LIQUIDS (DISLIKES NECTAR THICK LIQUIDS). NO OVERT S/S OF ASPIRATION WITH PO TRIALS OF THIN LIQUIDS WITH [employer] DEVELOPMENT MANAGER TODAY LONG HE TAKES ONE SIP AT A TIME. STILL NEEDS MODIFIED BARIUM SWALLOW STUDY IT HAS NOT BEEN COMPLETED DUE TO SCHEDULING CONFLICTS. GOALS MET FOR STAFF EDUCATED/TRAINED IN POSTED ASP PRECAUTIONS. SPEECH STATUS: NOT DIRECTLY WORKED ON DUE TO SWALLOWING NEEDS MORE OF A CONCERN. PATIENT IS ABLE TO COMMUNICATE BASIC NEEDS FOR NOW. PLAN: CONTINUE WITH PLAN OF CARE (GOALS IN SWALLOW AND SPEECH EVALUATIONS). CONTINUE WITH UPGRADED DIET/LIQUIDS USING POSTED ASPIRATION PRECAUTIONS. COMPLETE MODIFIED BARIUM SWALLOW STUDY INPATIENT OR OUTPATIENT IF D/C. ASKED RD FOR CALORIE COUNT AND SEND PHOTO MANAGER FOR FOODS OF PREFERENCE. CONSIDER APPETITE STIMULANT. D/W ESHA WHIPPLE AND PATIENT.
--- NOTE | 2019-03-12 10:47 | General Progress Note ---
Assessment/Plan Status: unchanged Assessment/Plan: 1) Coffee ground emesis ICD Codes: K92.0 - Hematemesis SNOMED: 78878790 (2) Episode of confusion ICD Codes: R41.0 - Disorientation, unspecified SNOMED: 00780098 (3) Gastrointestinal bleed ICD Codes: K92.2 - Gastrointestinal hemorrhage, unspecified SNOMED: 19149247 (4) Abnormal LFTs ICD Codes: R94.5 - Abnormal results of liver function studies SNOMED: 782604797 (5) Diarrhea ICD Codes: R19.7 - Diarrhea, unspecified SNOMED: 40457181 (6) Electrolyte and fluid disorder ICD Codes: E87.8 - Other disorders of electrolyte and fluid balance, not elsewhere classified SNOMED: 37004534 (7) Sepsis ICD Codes: A41.9 - Sepsis, unspecified organism SNOMED: 49777287 Status: unchanged Status Narrative Discussed with Dr. Bloom Assessment/Plan SUMMARY OF FINDINGS: 1. Medium-sized hiatal hernia. 2. Portal hypertensive gastropathy, status post biopsy. US reviewed >> liver disease/cirrhosis with ascites s/p paracentesis. Assessment - UGIB abnormal LFT, negative hepatitis serologies, s/p U/S x 2 (no biliary dilation), downtrending - ?cirrhosis and sepsis/hypoperfusion - h/o EtOH, possible early cirrhosis EBV IGM elevation Check HSV IgM, negative Hepatitis Panel negative Follow up path of EGD noted with portal hypertensive gastropathy. Negative for H. Pylori. RECOMMENDATIONS: Check CMV Quant PCR No evidence of any active GI bleeding at this time. consider colonoscopy if needed. low dose lactulose + Xifaxan prn transfusions follow labs improving LFTS hold paracentesis for now given elevated Production [place] Subjective ROS Limited/Unobtainable: Yes Allergies: Coded Allergies: No Known Allergies (Unverified , 02/10/15) Objective Last 24 Hour Vital Signs Date Time Temp Pulse Resp B/P (MAP) Pulse Ox O2 Delivery O2 Flow Rate FiO2 03/12/19 09:00 Room Air Room Air 03/12/19 08:00 111 03/12/19 08:00 97.0 111 22 98/69 (79) 98 03/12/19 04:00 97.5 95 18 116/69 (85) 99 03/12/19 04:00 114 03/12/19 00:00 77 8/5/19 00:00 97.5 98 18 115/70 (85) 100 03/11/19 21:00 Room Air Room Air 03/11/19 20:00 97.6 106 19 112/74 (87) 100 03/11/19 20:00 101 03/11/19 16:00 98.6 96 18 108/68 (81) 100 03/11/19 16:00 107 03/11/19 12:00 98.2 103 20 109/80 (90) 99 03/11/19 11:49 105 Intake and Output 03/11/19 03/12/19 18:59 06:59 Intake Total 480 ml Output Total 500 ml 700 ml Balance -20 ml -700 ml Intake Oral 480 ml Output Urine Total 500 ml 700 ml # Voids 3 # Bowel Movements 2 Laboratory Tests 03/12/19 06:00: White Blood Count 20.1H, Red Blood Count 2.58L, Hemoglobin 8.2L, Hematocrit 25.4L, Mean Corpuscular Volume 98, Mean Corpuscular Hemoglobin 31.6H, Mean Corpuscular Hemoglobin Concent 32.2, Red Cell Distribution Width 15.3H, Platelet Count 148L, Mean Platelet Volume 7.6, Neutrophils (%) (Auto) , Lymphocytes (%) (Auto) , Monocytes (%) (Auto) , Eosinophils (%) (Auto) , Basophils (%) (Auto) , Differential Total Cells Counted 100, Neutrophils % ( Manual) 76H, Lymphocytes % (Manual) 9L, Monocytes % (Manual) 12H, Eosinophils % (Manual) 3, Basophils % (Manual) 0, Band Neutrophils 0, Platelet Estimate DecreasedL, Platelet Morphology Normal, Hypochromasia 1+, Anisocytosis 1+, Sodium Level 133L, Potassium Level 5.0, Chloride Level 103, Carbon Dioxide Level 25, Anion Gap 5, Blood Urea Nitrogen 22H, Creatinine 1.7H, Estimat Glomerular Filtration Rate 51.0, Glucose Level 106, Calcium Level 8.1L, Total Bilirubin 3.7H, Direct Bilirubin 3.1H, Aspartate Amino Transf (AST/SGOT) 55H, Alanine Aminotransferase (ALT/SGPT) 21, Alkaline Phosphatase 186H, Total Protein 6.8, Albumin 1.4L, Globulin 5.4, Albumin/Globulin Ratio 0.3L Height (Feet): 5 Height (Inches): 5.00 Weight (Pounds): 167 General Appearance: alert EENT: normal ENT inspection Neck: supple Cardiovascular: normal rate Respiratory/Chest: decreased breath sounds Abdomen: soft, hypoactive bowel sounds, distended Extremities: non-tender Jones Bloom MD Mar 12, 2019 10:47
[2019-03-12 12:00] VITALS: BP 104/70
--- NOTE | 2019-03-12 12:17 | NUR ---
Indium WBC Scan: Blood drawn for Indium-111 WBC labeling and picked up by [facility] at 1205hrs. Return time for re-injection of Indium-111 labeled WBCs is 3-6 hours. Addendum: 03/12/19 at 1543 by KRISTAL JIANG Indium-111 labeled WBCs re-injected at 1530hrs. Scan will be performed tomorrow per protocol.
--- NOTE | 2019-03-12 12:22 | Hematology/Onc Progress Note ---
Assessment/Plan Assessment/Plan # Bicytopenia with anemia likely due to liver cirrhosis and hronic etoh use -- stool occult blood +, also with etoh withdrawal, also can be related to meds/abx , Hida shows Limited hepatic uptake and excretion, probably due to hepatocellular disease. Note that previous imaging studies suggest the presence of cirrhotic changes. Also there is potential component of active infection of causing bicytopenia --> anemia panel has been reviewed and results are acd --> continue on folate 1mg po daily (LOW FOLATE) --> Flow cytometry shows no evidence of b-lymphoproliferative disorder --> Hep panel negative --> thoracentesis cytology negative for malignant cells --> plt trend 300k-->170k-->138k-->130k-->126k-->148k # Anemia of chronic disease, per anemia panel --> hgb trend 8-->7-->8-->9-->8.6-->7.7-->7.9-->8.3-->7.9->8.5-->9-->10-->9.9--> 7.7-->9.4-->8.9-->8.7-->8.5-->8.2 --> peripheral smear reviewed and not noted to have blasts --> may require gi eval when more stable with scope (EGD) --> transfuse if hgb <7 --> cont folic acid and thiamine tabs # Leukocytosis due to Septic shock and severe Lactic acidosis on Levophed and broad-spectrum IV antibiotics. --> per ID care, continue abx --> pressor as needed --> flagyl, cefepime, carmen--> NOW flagyl, ceftriaxone --> wbc trend: 34.9 -->28k-->35k-->17k-->20.7-->22k-->24k-->22k-->20k # Coagulopathy with a history of liver disease/cirrhosis (HX OF ETOH abuse) with portal htn --> no evidence of gi bleed at this time --> vit K to be given sq on prn basis --> gi on board # Sinus tachycardia up to 170s. No evidence of acute mi --> This is likely due to sepsis and anemia, alcohol withdrawal --> Echo Nl EF 60% # Troponin leak, type 2 --> per cards # Respiratory failure on the vent. Has failed weaning --> sbt trial per pulm, now extubated --> 02/27 the bronchoscope was advanced into both mainstem bronchi and subsegmental bronchi. There was increased secretions b/l, mucopurulent including mucus plugging of the right upper lobe, which was therapeutically aspirated. BAL specimen was sent. # Transaminitis with elev bilis --> as per gi with ast/alt high --> monitor for resolution of sepsis # ETOH withdrawal --> recommend etoh cessation # Seizures with noncompliance --> per neuro Greatly appreciate consultation. Subjective Constitutional: Denies: no symptoms, chills, fever, malaise, weakness, other HEENT: Denies: no symptoms, eye pain, blurred vision, tearing, double vision, ear pain, ear discharge, nose pain, nose congestion, throat pain, throat swelling, mouth pain, mouth swelling, other Cardiovascular: Denies: no symptoms, chest pain, edema, irregular heart rate, lightheadedness, palpitations, syncope, other Gastrointestinal/Abdominal: Denies: no symptoms, abdomen distended, abdominal pain, black stools, tarry stools, blood in stool, constipated, diarrhea, difficulty swallowing, nausea, poor appetite, poor fluid intake, rectal bleeding , vomiting, other Genitourinary: Denies: no symptoms, burning, discharge, frequency, flank pain, hematuria, incontinence, pain, urgency, other Neurologic/Psychiatric: Denies: no symptoms, anxiety, depressed, emotional problems, headache, numbness, paresthesia, pre-existing deficit, seizure, tingling, tremors, weakness, other Endocrine: Denies: no symptoms, excessive sweating, flushing, intolerance to cold, intolerance to heat, increased hunger, increased thirst, increased urine, unexplained weight gain, unexplained weight loss, other Allergies: Coded Allergies: No Known Allergies (Unverified , 02/10/15) Subjective 02/20: intubated, counts are better, on vent, sbt in process, no f/c, mag low 02/21: endoscopy on hold at this time, bloody stool, plt better, on abx 02/22: no events reported, remains intubated, no bleeding, plt better, k is low, repleted\ 02/23: remains in icu, letargic, flow cytometry showed no evidence of b- lymphoproliferative disorder, c-diif negative, labs reviewed, remains on levo 02/24: in icu, on vent, wbc at 32, id made aware. 02/25: icu, weaning off of vent, labs reviewed, continues on abx 02/26: no fc, no changes reported, wbc high, ongoing hida scan 02/27: no events, bronch to be done today, results pending 02/28: no f/c, restraints++, ogt was inserted 03/01: s/p extubation, self-extubated, otherwise on abx, off pressors 03/02: no events too report, labs have been reviewed, off abx, remains agitated 03/03 no fevers or chills, no changes, breathing better, less altered 03/05: no events, no bleeding, hgb 7.7, on RA only, sating well 03/06: hgb is low, otherwise without event, slightly improved, as per gi transaminitis, bilis are better 03/07: no overnight events, still jaundiced, delgado removed, h/h stable, thoracentesis cytology negative for malignant cells 03/08: patient is asleep, delgado draining well to gravity, no f/c, no major changes , seen by uro 03/09: gross hematuria has improved, seen by uro, no f/c 03/11: is resting in bed, is comfortable, remains relatively unchanged, remains on abx 03/12: no major hematuria noted, in bed, comfortable, labs reviewed, hgb 8.2 Objective Objective Current Medications Medications (Trade) Dose Ordered Sig/Tonny Route PRN Reason Start Time Stop Time Status Last Admin Dose Admin Ceftriaxone Sodium 1 gm/ Dextrose 50 ml @ 100 mls/hr Q24H IVPB 03/08/19 18:00 03/15/19 17:59 03/11/19 17:18 Chlorhexidine Gluconate (Stephanie-Hex 2%) 1 applic DAILY@1999 TOPIC 03/04/19 20:00 04/03/19 19:59 03/11/19 21:12 Dextrose (Dextrose 50%) 25 ml Q30M PRN IV Hypoglycemia 03/02/19 17:45 03/16/19 16:14 Dextrose (Dextrose 50%) 50 ml Q30M PRN IV Hypoglycemia 03/02/19 17:45 03/16/19 16:14 Lactobacillus Acidophilus (Culturelle) 1 tab EVERY 12 HOURS ORAL 03/02/19 21:00 03/26/19 17:59 03/12/19 08:53 Lactulose (Cephulac) 10 gm THREE TIMES A DAY ORAL 03/02/19 18:00 04/01/19 12:59 03/12/19 08:52 Lansoprazole (Prevacid) 30 mg EVERY 12 HOURS ORAL 03/12/19 21:00 04/11/19 20:59 Levetiracetam (Keppra) 500 mg Q12HR ORAL 03/03/19 21:00 04/02/19 20:59 03/12/19 08:52 Metronidazole 100 ml @ 100 mls/hr Q8HR IVPB 03/08/19 22:00 03/15/19 21:59 03/12/19 05:58 Ondansetron HCl (Zofran) 4 mg Q6H PRN IVP Nausea & Vomiting 03/02/19 18:30 03/16/19 18:29 Rifaximin (Xifaxan) 550 mg EVERY 12 HOURS ORAL 03/02/19 21:00 03/15/19 20:59 03/12/19 08:52 Tamsulosin HCl (Flomax) 0.8 mg BEDTIME ORAL 03/05/19 21:30 04/04/19 21:29 03/11/19 21:11 Thiamine HCl (Vitamin B1) 100 mg DAILY ORAL 03/07/19 09:00 03/27/19 08:59 03/12/19 08:52 Last 24 Hour Vital Signs Date Time Temp Pulse Resp B/P (MAP) Pulse Ox O2 Delivery O2 Flow Rate FiO2 03/12/19 09:00 Room Air Room Air 03/12/19 08:00 111 03/12/19 08:00 97.0 111 22 98/69 (79) 98 03/12/19 04:00 97.5 95 18 116/69 (85) 99 03/12/19 04:00 114 03/12/19 00:00 77 03/12/19 00:00 97.5 98 18 115/70 (85) 100 03/11/19 21:00 Room Air Room Air 03/11/19 20:00 97.6 106 19 112/74 (87) 100 03/11/19 20:00 101 03/11/19 16:00 98.6 96 18 108/68 (81) 100 03/11/19 16:00 107 03/11/19 12:00 98.2 103 20 109/80 (90) 99 03/11/19 11:49 105 03/11/19 09:00 Room Air Room Air 03/11/19 08:00 113 03/11/19 08:00 97.5 108 20 110/69 (83) 98 03/11/19 04:00 94 03/11/19 04:00 97.7 86 17 97/70 (79) 98 03/11/19 00:00 98.3 106 18 109/67 (81) 98 03/11/19 00:00 81 03/10/19 21:00 Room Air Room Air 03/10/19 20:00 98.1 106 20 108/74 (85) 98 03/10/19 20:00 103 03/10/19 16:00 97.5 103 20 108/69 (82) 99 03/10/19 16:00 107 Intake and Output 03/11/19 03/12/19 18:59 06:59 Intake Total 480 ml Output Total 500 ml 700 ml Balance -20 ml -700 ml Intake Oral 480 ml Output Urine Total 500 ml 700 ml # Voids 3 # Bowel Movements 2 Labs Test 03/10/19 06:23 03/11/19 04:00 03/12/19 06:00 White Blood Count 21.4 K/UL (4.8-10.8) 22.4 K/UL (4.8-10.8) 20.1 K/UL (4.8-10.8) Red Blood Count 2.63 M/UL (4.70-6.10) 2.70 M/UL (4.70-6.10) 2.58 M/UL (4.70-6.10) Hemoglobin 8.3 G/DL (14.2-18.0) 8.5 G/DL (14.2-18.0) 8.2 G/DL (14.2-18.0) Hematocrit 25.6 % (42.0-52.0) 26.6 % (42.0-52.0) 25.4 % (42.0-52.0) Mean Corpuscular Volume 97 FL (80-99) 98 FL (80-99) 98 FL (80-99) Mean Corpuscular Hemoglobin 31.7 PG (27.0-31.0) 31.6 PG (27.0-31.0) 31.6 PG (27.0-31.0) Mean Corpuscular Hemoglobin Concent 32.6 G/DL (32.0-36.0) 32.1 G/DL (32.0-36.0) 32.2 G/DL (32.0-36.0) Red Cell Distribution Width 15.3 % (11.6-14.8) 15.6 % (11.6-14.8) 15.3 % (11.6-14.8) Platelet Count 137 K/UL (150-450) 126 K/UL (150-450) 148 K/UL (150-450) Mean Platelet Volume 7.6 FL (6.5-10.1) 7.5 FL (6.5-10.1) 7.6 FL (6.5-10.1) Neutrophils (%) (Auto) % (45.0-75.0) % (45.0-75.0) % (45.0-75.0) Lymphocytes (%) (Auto) % (20.0-45.0) % (20.0-45.0) % (20.0-45.0) Monocytes (%) (Auto) % (1.0-10.0) % (1.0-10.0) % (1.0-10.0) Eosinophils (%) (Auto) % (0.0-3.0) % (0.0-3.0) % (0.0-3.0) Basophils (%) (Auto) % (0.0-2.0) % (0.0-2.0) % (0.0-2.0) Differential Total Cells Counted 100 100 100 Neutrophils % (Manual) 80 % (45-75) 79 % (45-75) 76 % (45-75) Lymphocytes % (Manual) 7 % (20-45) 8 % (20-45) 9 % (20-45) Monocytes % (Manual) 9 % (1-10) 12 % (1-10) 12 % (1-10) Eosinophils % (Manual) 4 % (0-3) 1 % (0-3) 3 % (0-3) Basophils % (Manual) 0 % (0-2) 0 % (0-2) 0 % (0-2) Band Neutrophils 0 % (0-8) 0 % (0-8) 0 % (0-8) Platelet Estimate Decreased Decreased Decreased Platelet Morphology Normal Normal Normal Hypochromasia 2+ 1+ 1+ Anisocytosis 1+ 1+ 1+ Sodium Level 133 MMOL/L (136-145) 133 MMOL/L (136-145) 133 MMOL/L (136-145) Potassium Level 4.6 MMOL/L (3.5-5.1) 4.9 MMOL/L (3.5-5.1) 5.0 MMOL/L (3.5-5.1) Chloride Level 103 MMOL/L (98-107) 102 MMOL/L (98-107) 103 MMOL/L (98-107) Carbon Dioxide Level 25 MMOL/L (21-32) 26 MMOL/L (21-32) 25 MMOL/L (21-32) Anion Gap 6 mmol/L (5-15) 6 mmol/L (5-15) 5 mmol/L (5-15) Blood Urea Nitrogen 22 mg/dL (7-18) 23 mg/dL (7-18) 22 mg/dL (7-18) Creatinine 1.7 MG/DL (0.55-1.30) 1.7 MG/DL (0.55-1.30) 1.7 MG/DL (0.55-1.30) Estimat Glomerular Filtration Rate 51.0 mL/min (>60) 51.0 mL/min (>60) 51.0 mL/min (>60) Glucose Level 106 MG/DL (74-106) 108 MG/DL (74-106) 106 MG/DL (74-106) Calcium Level 7.9 MG/DL (8.5-10.1) 7.9 MG/DL (8.5-10.1) 8.1 MG/DL (8.5-10.1) Total Bilirubin 4.4 MG/DL (0.2-1.0) 4.4 MG/DL (0.2-1.0) 3.7 MG/DL (0.2-1.0) Direct Bilirubin 3.8 MG/DL (0.0-0.3) 3.5 MG/DL (0.0-0.3) 3.1 MG/DL (0.0-0.3) Aspartate Amino Transf (AST/SGOT) 61 U/L (15-37) 59 U/L (15-37) 55 U/L (15-37) Alanine Aminotransferase (ALT/SGPT) 28 U/L (12-78) 26 U/L (12-78) 21 U/L (12-78) Alkaline Phosphatase 184 U/L (46-116) 190 U/L (46-116) 186 U/L (46-116) Total Protein 6.5 G/DL (6.4-8.2) 6.8 G/DL (6.4-8.2) 6.8 G/DL (6.4-8.2) Albumin 1.3 G/DL (3.4-5.0) 1.4 G/DL (3.4-5.0) 1.4 G/DL (3.4-5.0) Globulin 5.2 g/dL 5.4 g/dL 5.4 g/dL Albumin/Globulin Ratio 0.2 (1.0-2.7) 0.3 (1.0-2.7) 0.3 (1.0-2.7) Height (Feet): 5 Height (Inches): 5.00 Weight (Pounds): 167 Objective Gen: NAD Heent: atraumatic Lungs: clear, ++RA sating 95% Heart: HR/BP unstable Abdomen: soft, non-tender, active bowel sounds Extremities: no cce, L femoral cath+, bilateral wrist restraints are off Robert Johnston MD Mar 12, 2019 12:22
--- NOTE | 2019-03-12 13:27 | Cardiac Electrophysiology PN ---
Assessment/Plan Assessment/Plan 1. Sinus tachycardia up to 170s. No myocardial infarction . Due to sepsis, anemia and alcohol withdrawal. EF 60%. In SR in 90s 2. S/P Septic shock and E Coli bacteremia, on 3 broad-spectrum IV antibiotics. Indium scan pending today per Dr Negrete 3. Troponin leak. Type 2. No CP 4. S/P Respiratory failure. Self extubated S/P Bronchoscopy and removal of mucus plug 5. ETOH withdrawal 6. Seizures with noncompliance. 7. Upper gi bleed. S/P EGD 8. Hematuria, resolved 9. Coffee ground emesis. EGD showed Medium-sized hiatal hernia and Portal hypertensive gastropathy 10. Liver cirrhosis with ascites. Billirubin down [address] Goldberg S/P Paracentesis 4 liters on 03/04/19. On Lactulose S/P Paracentesis 3 liters 03/15/19 DW RN DC planning vs Paracentesis if US more Ascites DW Dr. Negrete Subjective Subjective In SR in NAD. Had 3 liter Paracentesis on 03/09/19. Repeat US Tuesday. Indium scan pending Objective Last 24 Hour Vital Signs Date Time Temp Pulse Resp B/P (MAP) Pulse Ox O2 Delivery O2 Flow Rate FiO2 03/12/19 12:00 98.5 108 21 104/70 (81) 99 03/12/19 12:00 114 03/12/19 09:00 Room Air Room Air 03/12/19 08:00 111 03/12/19 08:00 97.0 111 22 98/69 (79) 98 03/12/19 04:00 97.5 95 18 116/69 (85) 99 03/12/19 04:00 114 03/12/19 00:00 77 03/12/19 00:00 97.5 98 18 115/70 (85) 100 03/11/19 21:00 Room Air Room Air 03/11/19 20:00 97.6 106 19 112/74 (87) 100 03/11/19 20:00 101 03/11/19 16:00 98.6 96 18 108/68 (81) 100 03/11/19 16:00 107 Intake and Output 03/11/19 03/12/19 18:59 06:59 Intake Total 480 ml Output Total 500 ml 700 ml Balance -20 ml -700 ml Intake Oral 480 ml Output Urine Total 500 ml 700 ml # Voids 3 # Bowel Movements 2 Laboratory Tests Test 03/12/19 06:00 White Blood Count 20.1 K/UL (4.8-10.8) H Red Blood Count 2.58 M/UL (4.70-6.10) L Hemoglobin 8.2 G/DL (14.2-18.0) L Hematocrit 25.4 % (42.0-52.0) L Mean Corpuscular Volume 98 FL (80-99) Mean Corpuscular Hemoglobin 31.6 PG (27.0-31.0) H Mean Corpuscular Hemoglobin Concent 32.2 G/DL (32.0-36.0) Red Cell Distribution Width 15.3 % (11.6-14.8) H Platelet Count 148 K/UL (150-450) L Mean Platelet Volume 7.6 FL (6.5-10.1) Neutrophils (%) (Auto) % (45.0-75.0) Lymphocytes (%) (Auto) % (20.0-45.0) Monocytes (%) (Auto) % (1.0-10.0) Eosinophils (%) (Auto) % (0.0-3.0) Basophils (%) (Auto) % (0.0-2.0) Differential Total Cells Counted 100 Neutrophils % (Manual) 76 % (45-75) H Lymphocytes % (Manual) 9 % (20-45) L Monocytes % (Manual) 12 % (1-10) H Eosinophils % (Manual) 3 % (0-3) Basophils % (Manual) 0 % (0-2) Band Neutrophils 0 % (0-8) Platelet Estimate Decreased L Platelet Morphology Normal Hypochromasia 1+ Anisocytosis 1+ Sodium Level 133 MMOL/L (136-145) L Potassium Level 5.0 MMOL/L (3.5-5.1) Chloride Level 103 MMOL/L (98-107) Carbon Dioxide Level 25 MMOL/L (21-32) Anion Gap 5 mmol/L (5-15) Blood Urea Nitrogen 22 mg/dL (7-18) H Creatinine 1.7 MG/DL (0.55-1.30) H Estimat Glomerular Filtration Rate 51.0 mL/min (>60) Glucose Level 106 MG/DL (74-106) Calcium Level 8.1 MG/DL (8.5-10.1) L Total Bilirubin 3.7 MG/DL (0.2-1.0) H Direct Bilirubin 3.1 MG/DL (0.0-0.3) H Aspartate Amino Transf (AST/SGOT) 55 U/L (15-37) H Alanine Aminotransferase (ALT/SGPT) 21 U/L (12-78) Alkaline Phosphatase 186 U/L (46-116) H Total Protein 6.8 G/DL (6.4-8.2) Albumin 1.4 G/DL (3.4-5.0) L Globulin 5.4 g/dL Albumin/Globulin Ratio 0.3 (1.0-2.7) L Objective HEAD AND NECK: No JV. Icteric sclera LUNGS: Decreased breath sounds. CARDIOVASCULAR: Regular S1 and S2 with no gallop or murmur. ABDOMEN: Soft with ascites EXTREMITIES: No pitting edema. Fidencio Trevino MD Mar 12, 2019 13:27
--- NOTE | 2019-03-12 13:31 | Infectious Diseases Prog Note ---
Assessment/Plan Assessment/Plan ASSESSMENT AND PLAN: 1. sepsis, shock, e.coli bacteremia/uti, gram neg sepsis, pna/HCAP, ct noted, sirs, fevers, fungemia risk, ascites, s/p paracentesis, ? sbp, elevated lft's, persistent leukocytosis - rocephin and flagyl - surveillance cultures negative - off vent , off pressors, clinically improving - monitor labs - picc line (03/05/19) - await indium scan for persistent leukocytosis 2. History of seizures. Workup per Neurology. 3. Acute kidney injury, likely secondary to sepsis. 4. The patient is anemic. 5. Severe sepsis with leukocytosis. 6. History of ETOH abuse. 7. No known allergies. 8. Family history is noncontributory. 9. MAR was noted. 10. Case was discussed with RN. 11. Social history is positive for ETOH abuse. 12. Poor prognosis. Subjective Constitutional: Denies: fever HEENT: Reports: congestion - mild Respiratory: Reports: shortness of breath - mild Cardiovascular: Denies: chest pain Gastrointestinal/Abdominal: Denies: nausea, vomiting, diarrhea Genitourinary: Reports: other - + delgado Neurologic: Denies: headache Psychiatric: Denies: depression Skin: Denies: rash Hematologic: Denies: bleeding Musculoskeletal: Denies: pain Allergies: Coded Allergies: No Known Allergies (Unverified , 02/10/15) Objective Vital Signs Last 24 Hour Vital Signs Date Time Temp Pulse Resp B/P (MAP) Pulse Ox O2 Delivery O2 Flow Rate FiO2 03/12/19 12:00 98.5 108 21 104/70 (81) 99 03/12/19 12:00 114 03/12/19 09:00 Room Air Room Air 03/12/19 08:00 111 03/12/19 08:00 97.0 111 22 98/69 (79) 98 03/12/19 04:00 97.5 95 18 116/69 (85) 99 03/12/19 04:00 114 03/12/19 00:00 77 03/12/19 00:00 97.5 98 18 115/70 (85) 100 03/11/19 21:00 Room Air Room Air 03/11/19 20:00 97.6 106 19 112/74 (87) 100 03/11/19 20:00 101 03/11/19 16:00 98.6 96 18 108/68 (81) 100 03/11/19 16:00 107 Height (Feet): 5 Height (Inches): 5.00 Weight (Pounds): 167 General Appearance: no acute distress HEENT: normocephalic, atraumatic, anicteric, supple, no JVD Respiratory/Chest: crackles/rales, rhonchi - bilaterally Cardiovascular: normal rate, regular rhythm, no gallop/murmur, no JVD Abdomen: normal bowel sounds, soft, non tender, no organomegaly, distended Genitourinary: other - + delgado Extremities: no cyanosis Skin: no rash Neurologic/Psychiatric: clinical nursing coordinator II-XII grossly normal, alert, responsive Lymphatic: no neck adenopathy Musculoskeletal: no effusion Objective CT abdomen and pelvis - 02/17/19 - IMPRESSION: No evidence of pulmonary embolus, aortic dissection or aneurysm. Posterior basilar consolidation suspicious for pneumonia. Correlate clinically. Trace bilateral pleural effusions. Possible enterocolitis as described above. Please correlate clinically. Mild ascites Fatty liver Cholelithiasis with wall thickening. Cholecystitis not excluded. Small right inguinal hernia containing fat Extensive breathing motion artifact limiting evaluation. Chest x-ray - 03/05/19 - Comparison: 02/27/2019 Findings: Interim removal of endotracheal and nasogastric tubes. There is some atelectasis at both lung bases. There is likely some pleural fluid and possibly some consolidation at the left lung base. The heart size is normal the aorta is tortuous. There is a calcification at the inferior aspect of the left shoulder joint. Impression: Bilateral basilar atelectasis. Possible left-sided pleural fluid and consolidation Interim endotracheal and nasogastric extubation CT abdomen and pelvis - 03/09/19 - CT ABDOMEN + PELVIS Without Contrast: Comparison: 02/17/19 Evaluation limited by the absence of IV contrast enhancement. Patchy nodular consolidation in both lung bases consistent with pneumonia. Small adjacent bilateral pleural effusions left greater than right. Follow-up to complete radiographic resolution is required to exclude neoplasm. Small hiatal hernia. Enteric contrast within the distal esophagus secondary to recent administration are gastro-esophageal reflux. Mild scalloping of the hepatic contour is consistent with cirrhosis. No interval change and nodular thickening bilateral adrenal glands. Cholelithiasis without evidence of biliary ductal dilatation. Significant increase in ascites in the abdomen and pelvis that is now a large amount. Nonspecific gastric wall prominence, recommend endoscopy for further evaluation. The lower GI tract demonstrates no obstruction or pneumatosis. There is mild wall thickening distal right colon extending just distal to the hepatic flexure that is nonspecific can be seen with focal colitis as well as sequela from portal hypertension and cirrhosis. Moderate liquid stool in the distal rectosigmoid colon partially obscuring wall thickness. Diffuse saniya mesentery. Negative for loculated fluid collections. Bladder wall thickening with reticulation is nonspecific and can be seen with chronic outlet obstruction. Cystoscopy can provide more definitive evaluation. Negative for pneumoperitoneum. 03/09/19 - chest x-ray - no change, report noted Microbiology Date/Time Source Procedure Growth Status 03/08/19 18:15 Blood Blood Culture - Preliminary NO GROWTH AFTER 72 HOURS Resulted 03/05/19 12:30 Body Fluid Gram Stain - Final Complete 03/05/19 12:30 Body Fluid Body Fluid Culture - Final NO GROWTH Complete 02/27/19 15:00 Sputum Expectorated Pneumocystis jiroveci Smear (DFA) - Final Complete 02/22/19 23:55 Stool Clostridium difficile Toxin Assay - Final Complete 03/08/19 21:20 Indwelling Cath Urine Culture - Final NO GROWTH AFTER 48 HOURS Complete Laboratory Tests Test 03/12/19 06:00 White Blood Count 20.1 K/UL (4.8-10.8) H Red Blood Count 2.58 M/UL (4.70-6.10) L Hemoglobin 8.2 G/DL (14.2-18.0) L Hematocrit 25.4 % (42.0-52.0) L Mean Corpuscular Volume 98 FL (80-99) Mean Corpuscular Hemoglobin 31.6 PG (27.0-31.0) H Mean Corpuscular Hemoglobin Concent 32.2 G/DL (32.0-36.0) Red Cell Distribution Width 15.3 % (11.6-14.8) H Platelet Count 148 K/UL (150-450) L Mean Platelet Volume 7.6 FL (6.5-10.1) Neutrophils (%) (Auto) % (45.0-75.0) Lymphocytes (%) (Auto) % (20.0-45.0) Monocytes (%) (Auto) % (1.0-10.0) Eosinophils (%) (Auto) % (0.0-3.0) Basophils (%) (Auto) % (0.0-2.0) Differential Total Cells Counted 100 Neutrophils % (Manual) 76 % (45-75) H Lymphocytes % (Manual) 9 % (20-45) L Monocytes % (Manual) 12 % (1-10) H Eosinophils % (Manual) 3 % (0-3) Basophils % (Manual) 0 % (0-2) Band Neutrophils 0 % (0-8) Platelet Estimate Decreased L Platelet Morphology Normal Hypochromasia 1+ Anisocytosis 1+ Sodium Level 133 MMOL/L (136-145) L Potassium Level 5.0 MMOL/L (3.5-5.1) Chloride Level 103 MMOL/L (98-107) Carbon Dioxide Level 25 MMOL/L (21-32) Anion Gap 5 mmol/L (5-15) Blood Urea Nitrogen 22 mg/dL (7-18) H Creatinine 1.7 MG/DL (0.55-1.30) H Estimat Glomerular Filtration Rate 51.0 mL/min (>60) Glucose Level 106 MG/DL (74-106) Calcium Level 8.1 MG/DL (8.5-10.1) L Total Bilirubin 3.7 MG/DL (0.2-1.0) H Direct Bilirubin 3.1 MG/DL (0.0-0.3) H Aspartate Amino Transf (AST/SGOT) 55 U/L (15-37) H Alanine Aminotransferase (ALT/SGPT) 21 U/L (12-78) Alkaline Phosphatase 186 U/L (46-116) H Total Protein 6.8 G/DL (6.4-8.2) Albumin 1.4 G/DL (3.4-5.0) L Globulin 5.4 g/dL Albumin/Globulin Ratio 0.3 (1.0-2.7) L Current Medications Medications (Trade) Dose Ordered Sig/Tonny Route PRN Reason Start Time Stop Time Status Last Admin Dose Admin Ceftriaxone Sodium 1 gm/ Dextrose 50 ml @ 100 mls/hr Q24H IVPB 03/08/19 18:00 03/15/19 17:59 03/11/19 17:18 Chlorhexidine Gluconate (Stephanie-Hex 2%) 1 applic DAILY@1999 TOPIC 03/04/19 20:00 04/03/19 19:59 03/11/19 21:12 Dextrose (Dextrose 50%) 25 ml Q30M PRN IV Hypoglycemia 03/02/19 17:45 03/16/19 16:14 Dextrose (Dextrose 50%) 50 ml Q30M PRN IV Hypoglycemia 03/02/19 17:45 03/16/19 16:14 Lactobacillus Acidophilus (Culturelle) 1 tab EVERY 12 HOURS ORAL 03/02/19 21:00 03/26/19 17:59 03/12/19 08:53 Lactulose (Cephulac) 10 gm THREE TIMES A DAY ORAL 03/02/19 18:00 04/01/19 12:59 03/12/19 13:12 Lansoprazole (Prevacid) 30 mg EVERY 12 HOURS ORAL 03/12/19 21:00 04/11/19 20:59 Levetiracetam (Keppra) 500 mg Q12HR ORAL 03/03/19 21:00 04/02/19 20:59 03/12/19 08:52 Metronidazole 100 ml @ 100 mls/hr Q8HR IVPB 03/08/19 22:00 03/15/19 21:59 03/12/19 13:12 Ondansetron HCl (Zofran) 4 mg Q6H PRN IVP Nausea & Vomiting 03/02/19 18:30 03/16/19 18:29 Rifaximin (Xifaxan) 550 mg EVERY 12 HOURS ORAL 03/02/19 21:00 03/15/19 20:59 03/12/19 08:52 Tamsulosin HCl (Flomax) 0.8 mg BEDTIME ORAL 03/05/19 21:30 04/04/19 21:29 03/11/19 21:11 Thiamine HCl (Vitamin B1) 100 mg DAILY ORAL 03/07/19 09:00 03/27/19 08:59 03/12/19 08:52 Barry Plummer MD Mar 12, 2019 13:31
--- NOTE | 2019-03-12 14:25 | NUR ---
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 98.5 HR 114 RR 22 B/P 98/69 WBC 20.1 NA 133 BUN 22 CR 1.7 AST 85 ALK PHOS 186 IS; FLAGYL IV CEFTRIAXONE IV FLAGYL IV INDIUM SCAN TELE STATUS
--- NOTE | 2019-03-12 14:27 | NUR ---
ENGINEERING DIRECTOR NOTES INQUIRY FAXED TO [facility]
--- NOTE | 2019-03-12 15:00 | Surgery Progress Note ---
Surgery Progress Note Subjective Procedure Performed \ Additional Comments Patient seen and examined at bedside. Overall looks much better. Leukocytosis trending down. Abdominal ascites still present. Liver function improving. CT identified and noted. Objective Last 24 Hour Vital Signs Date Time Temp Pulse Resp B/P (MAP) Pulse Ox O2 Delivery O2 Flow Rate FiO2 03/12/19 12:00 98.5 108 21 104/70 (81) 99 03/12/19 12:00 114 03/12/19 09:00 Room Air Room Air 03/12/19 08:00 111 03/12/19 08:00 97.0 111 22 98/69 (79) 98 03/12/19 04:00 97.5 95 18 116/69 (85) 99 03/12/19 04:00 114 03/12/19 00:00 77 03/12/19 00:00 97.5 98 18 115/70 (85) 100 03/11/19 21:00 Room Air Room Air 03/11/19 20:00 97.6 106 19 112/74 (87) 100 03/11/19 20:00 101 03/11/19 16:00 98.6 96 18 108/68 (81) 100 03/11/19 16:00 107 I&O Intake and Output 03/11/19 03/12/19 18:59 06:59 Intake Total 480 ml Output Total 500 ml 700 ml Balance -20 ml -700 ml Intake Oral 480 ml Output Urine Total 500 ml 700 ml # Voids 3 # Bowel Movements 2 Cardiovascular: RSR Respiratory: clear Abdomen: soft, distended, non-tender, present bowel sounds Extremities: no edema, no tenderness, no cyanosis Laboratory Tests Test 03/12/19 06:00 White Blood Count 20.1 K/UL (4.8-10.8) H Red Blood Count 2.58 M/UL (4.70-6.10) L Hemoglobin 8.2 G/DL (14.2-18.0) L Hematocrit 25.4 % (42.0-52.0) L Mean Corpuscular Volume 98 FL (80-99) Mean Corpuscular Hemoglobin 31.6 PG (27.0-31.0) H Mean Corpuscular Hemoglobin Concent 32.2 G/DL (32.0-36.0) Red Cell Distribution Width 15.3 % (11.6-14.8) H Platelet Count 148 K/UL (150-450) L Mean Platelet Volume 7.6 FL (6.5-10.1) Neutrophils (%) (Auto) % (45.0-75.0) Lymphocytes (%) (Auto) % (20.0-45.0) Monocytes (%) (Auto) % (1.0-10.0) Eosinophils (%) (Auto) % (0.0-3.0) Basophils (%) (Auto) % (0.0-2.0) Differential Total Cells Counted 100 Neutrophils % (Manual) 76 % (45-75) H Lymphocytes % (Manual) 9 % (20-45) L Monocytes % (Manual) 12 % (1-10) H Eosinophils % (Manual) 3 % (0-3) Basophils % (Manual) 0 % (0-2) Band Neutrophils 0 % (0-8) Platelet Estimate Decreased L Platelet Morphology Normal Hypochromasia 1+ Anisocytosis 1+ Sodium Level 133 MMOL/L (136-145) L Potassium Level 5.0 MMOL/L (3.5-5.1) Chloride Level 103 MMOL/L (98-107) Carbon Dioxide Level 25 MMOL/L (21-32) Anion Gap 5 mmol/L (5-15) Blood Urea Nitrogen 22 mg/dL (7-18) H Creatinine 1.7 MG/DL (0.55-1.30) H Estimat Glomerular Filtration Rate 51.0 mL/min (>60) Glucose Level 106 MG/DL (74-106) Calcium Level 8.1 MG/DL (8.5-10.1) L Total Bilirubin 3.7 MG/DL (0.2-1.0) H Direct Bilirubin 3.1 MG/DL (0.0-0.3) H Aspartate Amino Transf (AST/SGOT) 55 U/L (15-37) H Alanine Aminotransferase (ALT/SGPT) 21 U/L (12-78) Alkaline Phosphatase 186 U/L (46-116) H Total Protein 6.8 G/DL (6.4-8.2) Albumin 1.4 G/DL (3.4-5.0) L Globulin 5.4 g/dL Albumin/Globulin Ratio 0.3 (1.0-2.7) L Plan Problems: (1) Non-compliance Assessment & Plan: Noncompliance with seizure medication with known history of seizures Now had seizure Appreciate neurology input (2) Electrolyte and fluid disorder Assessment & Plan: Likely due to EtOH use and dehydration IV hydration Trend labs (3) Fever (4) Oral thrush (5) Diarrhea (6) Aspiration pneumonia (7) Seizure disorder (8) Tachycardia (9) Altered mental status (10) Alcohol withdrawal seizure (11) Alcohol withdrawal seizure (12) Episode of confusion (13) Coffee ground emesis (14) Gastrointestinal bleed Assessment & Plan: Patient on admission identified to have maroon-colored stool and coffee-ground emesis. Labs noted mild anemia with H&H trending down. No acute active bleed noted but given patient's history high risk for potential ulcers. PPI Appreciate GI input considerations for EGD once stable No evidence of pulmonary embolus, aortic dissection or aneurysm. Posterior basilar consolidation suspicious for pneumonia. Correlate clinically. Trace bilateral pleural effusions. Possible enterocolitis as described above. Please correlate clinically. Mild ascites Fatty liver Cholelithiasis with wall thickening. Cholecystitis not excluded. Small right inguinal hernia containing fat Extensive breathing motion artifact limiting evaluation. We will follow with recommendations thank you (15) Sinus tachycardia (16) Septic shock (17) Sepsis Assessment & Plan: Patient septic leukocytosis improved today lactic acidosis resolved anemia renal function declining electrolyte disturbance US noted picc out transition to oral meds extubated doing well US noted again. liver decompensated HIDA noted and likely cirrhosis delgado AM labs reordered s/p para micro negative improving overall May need repeat paracentesis soon (18) Lactic acid acidosis (19) STEFANI (acute kidney injury) (20) Abnormal LFTs (21) High anion gap metabolic acidosis Juanpablo Marcus Mar 12, 2019 15:00
--- NOTE | 2019-03-12 15:02 | Nephrology Progress Note ---
Assessment/Plan Problem List: (1) STEFANI (acute kidney injury) Assessment: renal function stable (2) Seizure disorder (3) Septic shock (4) Abnormal LFTs Plan abxs follow labs Indium scan for leucocytosis Subjective Subjective In NAD Objective Objective Last 24 Hour Vital Signs Date Time Temp Pulse Resp B/P (MAP) Pulse Ox O2 Delivery O2 Flow Rate FiO2 03/12/19 12:00 98.5 108 21 104/70 (81) 99 03/12/19 12:00 114 03/12/19 09:00 Room Air Room Air 03/12/19 08:00 111 03/12/19 08:00 97.0 111 22 98/69 (79) 98 03/12/19 04:00 97.5 95 18 116/69 (85) 99 03/12/19 04:00 114 03/12/19 00:00 77 03/12/19 00:00 97.5 98 18 115/70 (85) 100 03/11/19 21:00 Room Air Room Air 03/11/19 20:00 97.6 106 19 112/74 (87) 100 03/11/19 20:00 101 03/11/19 16:00 98.6 96 18 108/68 (81) 100 03/11/19 16:00 107 Intake and Output 03/11/19 03/12/19 18:59 06:59 Intake Total 480 ml Output Total 500 ml 700 ml Balance -20 ml -700 ml Intake Oral 480 ml Output Urine Total 500 ml 700 ml # Voids 3 # Bowel Movements 2 Laboratory Tests 03/12/19 06:00: White Blood Count 20.1H, Red Blood Count 2.58L, Hemoglobin 8.2L, Hematocrit 25.4L, Mean Corpuscular Volume 98, Mean Corpuscular Hemoglobin 31.6H, Mean Corpuscular Hemoglobin Concent 32.2, Red Cell Distribution Width 15.3H, Platelet Count 148L, Mean Platelet Volume 7.6, Neutrophils (%) (Auto) , Lymphocytes (%) (Auto) , Monocytes (%) (Auto) , Eosinophils (%) (Auto) , Basophils (%) (Auto) , Differential Total Cells Counted 100, Neutrophils % ( Manual) 76H, Lymphocytes % (Manual) 9L, Monocytes % (Manual) 12H, Eosinophils % (Manual) 3, Basophils % (Manual) 0, Band Neutrophils 0, Platelet Estimate DecreasedL, Platelet Morphology Normal, Hypochromasia 1+, Anisocytosis 1+, Sodium Level 133L, Potassium Level 5.0, Chloride Level 103, Carbon Dioxide Level 25, Anion Gap 5, Blood Urea Nitrogen 22H, Creatinine 1.7H, Estimat Glomerular Filtration Rate 51.0, Glucose Level 106, Calcium Level 8.1L, Total Bilirubin 3.7H, Direct Bilirubin 3.1H, Aspartate Amino Transf (AST/SGOT) 55H, Alanine Aminotransferase (ALT/SGPT) 21, Alkaline Phosphatase 186H, Total Protein 6.8, Albumin 1.4L, Globulin 5.4, Albumin/Globulin Ratio 0.3L Height (Feet): 5 Height (Inches): 5.00 Weight (Pounds): 167 Cardiovascular: normal rate Respiratory/Chest: lungs clear Extremities: other - no James Sweet MD Mar 12, 2019 15:02
[2019-03-12] MEDS ORDERED: NS 275ml ONE (15:57)
[2019-03-12 16:00] VITALS: BP 102/72
--- NOTE | 2019-03-12 16:42 | NUR ---
*-* INSURANCE *-* UPDATED CLINICAL AD REVIEWS HAVE BEEN FAXED TO: VANESSA COREA: ANTWON P- [phone]..............REVIEW/CLINICAL
--- NOTE | 2019-03-12 16:52 | NUR ---
DISCHARGE PLANNING Discharge order noted Patient has been referred to: [phone] [phone] Await Acceptance and Room Number
[2019-03-12] MEDS: cefTRIAXone 1 GM in D5W 50 ML IVPB SCH (17:00)
--- NOTE | 2019-03-12 19:13 | General Progress Note ---
Assessment/Plan Status: unchanged Assessment/Plan: 54 year old male with pMH of seizure disorder and etoh abuse admitted for seizures 2/2 non-compliance # Transaminitis- improving - f/u HIDA : non obstructive, findings c/w intracellular damage - ctm - appreciate GI and Sx input - us shows nodularity and chronic disease - hep panel negative - ggt increased - f/u GI - h/o EtOH, possible early cirrhosis EBV IGM elevation Check HSV IgM, negative Hepatitis Panel negative Follow up path of EGD noted with portal hypertensive gastropathy. Negative for H. Pylori. - paracentesis prn # Hemoptysis- resolved - s/p bronch - monitor hgb #severe septic shock likely 2/2 UTI- resolved #Gram negative bacteremia, now resolved by surveillance follow up blood culture (last 02/20) - s/p treatment #Acute respiratory failure requiting intubation, s/p extubation -s/p Vanc and Zosyn - gentamicin - s/p Fluconazole per ID - CBC serial. - CT 02/18 with atelectasis primarily - Diuresis started and good response -ID consult appreciated - Immunoglobulin and hepatitis panel negative. -cont ICU care - Reviewed CT chest/abd/pel #Lactic acidosis -2/2 severe shock/ poss abd source/ seizures - 2 D Echo on 02/16 with EF 65%. Discussed with cardiology and etiology likely sepsis and not cardiogenic -CTM -Fluid boluses completed. -Cont mIVF #Coagulopathy # Thrombocytopenia - 40,000 stable Monitor. No active bleeding - Hematology consult with Dr. Johnston appreciated. Flow cytometry pending. -likely 2/2 hepatic injury 2/2 shock - Consumption coagulopathy. - Consider platelet transfusion if LESS than 30K with urine blood tinge color. #Coffee ground emesis likely in setting of GI bleed- resolved -H/H trending down. Monitor -GI consult appreciated - s/p egd as above, reviewed: gastritis -surgery consult appreciated #Seizures 2/2 noncomplaint with AED- controlled -s/p phenytoin load in ED -Cont Phenytoin -Neurology consult appreciated -pending EEG - no seizures noted in last 24 hours -Ativan PRN for seizures -NPO -Seizure precautions #Hypokalemia - Replete as needed #hypophosphatemia - Repleted. #Hypomagnesemia -repleted -CTM # Urethral hemorrhage and clot evacuation - Discussed with Dr. Matta over the phone and bleeding stopped spontaneously, No formal urology consult for now in place. - If recurrent hemorrhage will address. - H/H and INR stat today. - Consider PRBC and Platelets if Hb < 8 or Plt < 30 K # Urinary retention PVR > 300 cc WILKINSON replaced 02/[address] ( in case of repeat hemorrhage ) D/w RN Code: Full Subjective Date patient seen: Mar 12, 2019 Allergies: Coded Allergies: No Known Allergies (Unverified , 02/10/15) Subjective patient is alert he complains of fatigue and unable to speak loudly denies abdominal pain, although abd is distended Objective Last 24 Hour Vital Signs Date Time Temp Pulse Resp B/P (MAP) Pulse Ox O2 Delivery O2 Flow Rate FiO2 03/12/19 16:00 98.1 103 22 102/72 (82) 100 03/12/19 16:00 102 03/12/19 12:00 98.5 108 21 104/70 (81) 99 03/12/19 12:00 114 03/12/19 09:00 Room Air Room Air 03/12/19 08:00 111 03/12/19 08:00 97.0 111 22 98/69 (79) 98 03/12/19 04:00 97.5 95 18 116/69 (85) 99 03/12/19 04:00 114 03/12/19 00:00 77 03/12/19 00:00 97.5 98 18 115/70 (85) 100 03/11/19 21:00 Room Air Room Air 03/11/19 20:00 97.6 106 19 112/74 (87) 100 03/11/19 20:00 101 Intake and Output 03/11/19 03/12/19 19:00 07:00 Intake Total 480 ml Output Total 500 ml 700 ml Balance -20 ml -700 ml Intake Oral 480 ml Output Urine Total 500 ml 700 ml # Voids 3 # Bowel Movements 2 Laboratory Tests 03/12/19 06:00: White Blood Count 20.1H, Red Blood Count 2.58L, Hemoglobin 8.2L, Hematocrit 25.4L, Mean Corpuscular Volume 98, Mean Corpuscular Hemoglobin 31.6H, Mean Corpuscular Hemoglobin Concent 32.2, Red Cell Distribution Width 15.3H, Platelet Count 148L, Mean Platelet Volume 7.6, Neutrophils (%) (Auto) , Lymphocytes (%) (Auto) , Monocytes (%) (Auto) , Eosinophils (%) (Auto) , Basophils (%) (Auto) , Differential Total Cells Counted 100, Neutrophils % ( Manual) 76H, Lymphocytes % (Manual) 9L, Monocytes % (Manual) 12H, Eosinophils % (Manual) 3, Basophils % (Manual) 0, Band Neutrophils 0, Platelet Estimate DecreasedL, Platelet Morphology Normal, Hypochromasia 1+, Anisocytosis 1+, Sodium Level 133L, Potassium Level 5.0, Chloride Level 103, Carbon Dioxide Level 25, Anion Gap 5, Blood Urea Nitrogen 22H, Creatinine 1.7H, Estimat Glomerular Filtration Rate 51.0, Glucose Level 106, Calcium Level 8.1L, Total Bilirubin 3.7H, Direct Bilirubin 3.1H, Aspartate Amino Transf (AST/SGOT) 55H, Alanine Aminotransferase (ALT/SGPT) 21, Alkaline Phosphatase 186H, Total Protein 6.8, Albumin 1.4L, Globulin 5.4, Albumin/Globulin Ratio 0.3L Height (Feet): 5 Height (Inches): 5.00 Weight (Pounds): 167 General Appearance: WD/WN, no apparent distress, alert, lethargic EENT: PERRL/EOMI, normal ENT inspection Neck: non-tender, normal alignment, supple Cardiovascular: normal peripheral pulses, normal rate, regular rhythm, regularly irregular Respiratory/Chest: chest wall non-tender, lungs clear, normal breath sounds, no respiratory distress Abdomen: other - ascites, no ttp, no organomagaly, soft Extremities: normal range of motion, non-tender Edema: no edema noted Arm (L), no edema noted Arm (R), no edema noted Leg (L), no edema noted Leg (R), no edema noted Pedal (L), no edema noted Pedal (R), no edema noted 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
--- NOTE | 2019-03-12 19:34 | NUR ---
HAND-OFF: Report given to ESHA Alberts. Pt in stbale condition.
--- NOTE | 2019-03-12 19:41 | NUR ---
NURSE NOTES: Received pt from ESHA Mantilla. Pt awake, alert, and talkative. Bed in lowest position. Call light within reach. Condom cath on. Side rails covered. Will continue to monitor.
[2019-03-12 20:00] VITALS: BP 98/61
[2019-03-12] MEDS: Dyna-Hex 2% Top Sol 2oz TOPIC SCH (20:42)
[2019-03-12] MEDS: Tamsulosin 0.4mg cap ORAL SCH (20:43)
[2019-03-12] MEDS ORDERED: Lansoprazole 15mg cap ORAL SCH (21:00)
--- NOTE | 2019-03-12 22:07 | General Progress Note ---
Assessment/Plan Status: unchanged Assessment/Plan: Assessment/Plan Status: unchanged Assessment/Plan: 54 year old male with PMH of seizure disorder and etoh abuse admitted for seizures 2/2 non-compliance #severe septic shock likely 2/2 UTI - resolve #Gram negative bacteremia, resolved by surveillance follow up blood cultures #Acute respiratory failure requiting intubation s/p extubation 03/01 -WBC cont to be elevated and mild decrease and around 20 thousand. - CBC serial. Last Bcx and Ucx 03/08 NGT - CT 02/18 with atelectasis primarily and CT 03/09 with lower lung nodularity possibly pneumonia, gastric prominence, bladder thickness-reticulation - ADDED incentive spirometry - Diuresis -ID consult appreciated - Immunoglobulin and hepatitis panel negative. - ABG prn - Reviewed CT chest/abd/pel -PICC placed # Transaminitis - improved #Ascites - paracenthesis 03/05 - repeat 03/09 with 3 lt removed. - f/u HIDA : non obstructive, findings c/w intracellular damage - appreciate GI and Sx input - us shows nodularity and chronic disease - hep panel negative - f/u GI who recommends Lactulose and Rixamin, CMV PCR ordered. # Hemoptysis - resolved - s/p bronch 02/27 with Therapeutic aspiration and mucus plug from the endotracheal tube in right upper lobe., #Lactic acidosis - resolved -2/2 severe shock/ poss abd source/ seizures - 2 D Echo on 02/16 with EF 65%. Discussed with cardiology and etiology likely sepsis and not cardiogenic -CTM #Coagulopathy # Thrombocytopenia - 40,000 lowest level and now at 137 K without active bleeding. - Hematology consult with Dr. Johnston appreciated. Flow cytometry negative for B proliferative cell disease. -likely 2/2 hepatic injury 2/2 shock - Consumption coagulopathy. - Consider platelet transfusion if LESS than 30K with urine blood tinge color. #Coffee ground emesis likely in setting of GI bleed -H/H trending down. Hb 8.3 -GI consult appreciated -s/p EGD, no significant findings, f/u biopsies with gastritis #Seizures 2/2 noncomplaint with AED -s/p phenytoin load in ED -Cont Phenytoin -Neurology consult appreciated -pending EEG - no seizures noted in last 24 hours -Ativan PRN for seizures -Seizure precautions #Hypokalemia - Replete as needed #hypophosphatemia - Repleted. #Hypomagnesemia -repleted -CTM # Urethral hemorrhage and clot evacuation - stable - appreciate urology consult - If recurrent hemorrhage will address. - Consider PRBC and Platelets if Hb < 8 or Plt < 30 K # Urinary retention VOIDING WELL with condom cath # Generalized weakness due to prolonged hospitalization - PT evaluation and plan for rehabilitation. Likely SNF is needed. patient lives near [facility] area. Family updated at the bedside, multiple questions asked and answered as best as possible. Code: Full Subjective Date patient seen: Mar 11, 2019 Time patient seen: 14:00 ROS Limited/Unobtainable: No Gastrointestinal/Abdominal: Reports: abdomen distended, abdominal pain Allergies: Coded Allergies: No Known Allergies (Unverified , 02/10/15) Objective Last 24 Hour Vital Signs Date Time Temp Pulse Resp B/P (MAP) Pulse Ox O2 Delivery O2 Flow Rate FiO2 03/12/19 20:59 Room Air Room Air 03/12/19 16:00 98.1 103 22 102/72 (82) 100 03/12/19 16:00 102 03/12/19 12:00 98.5 108 21 104/70 (81) 99 03/12/19 12:00 114 03/12/19 09:00 Room Air Room Air 03/12/19 08:00 111 03/12/19 08:00 97.0 111 22 98/69 (79) 98 03/12/19 04:00 97.5 95 18 116/69 (85) 99 03/12/19 04:00 114 03/12/19 00:00 77 03/12/19 00:00 97.5 98 18 115/70 (85) 100 Intake and Output 03/11/19 03/12/19 19:00 07:00 Intake Total 480 ml Output Total 500 ml 700 ml Balance -20 ml -700 ml Intake Oral 480 ml Output Urine Total 500 ml 700 ml # Voids 3 # Bowel Movements 2 Laboratory Tests 03/12/19 06:00: White Blood Count 20.1H, Red Blood Count 2.58L, Hemoglobin 8.2L, Hematocrit 25.4L, Mean Corpuscular Volume 98, Mean Corpuscular Hemoglobin 31.6H, Mean Corpuscular Hemoglobin Concent 32.2, Red Cell Distribution Width 15.3H, Platelet Count 148L, Mean Platelet Volume 7.6, Neutrophils (%) (Auto) , Lymphocytes (%) (Auto) , Monocytes (%) (Auto) , Eosinophils (%) (Auto) , Basophils (%) (Auto) , Differential Total Cells Counted 100, Neutrophils % ( Manual) 76H, Lymphocytes % (Manual) 9L, Monocytes % (Manual) 12H, Eosinophils % (Manual) 3, Basophils % (Manual) 0, Band Neutrophils 0, Platelet Estimate DecreasedL, Platelet Morphology Normal, Hypochromasia 1+, Anisocytosis 1+, Sodium Level 133L, Potassium Level 5.0, Chloride Level 103, Carbon Dioxide Level 25, Anion Gap 5, Blood Urea Nitrogen 22H, Creatinine 1.7H, Estimat Glomerular Filtration Rate 51.0, Glucose Level 106, Calcium Level 8.1L, Total Bilirubin 3.7H, Direct Bilirubin 3.1H, Aspartate Amino Transf (AST/SGOT) 55H, Alanine Aminotransferase (ALT/SGPT) 21, Alkaline Phosphatase 186H, Total Protein 6.8, Albumin 1.4L, Globulin 5.4, Albumin/Globulin Ratio 0.3L Height (Feet): 5 Height (Inches): 5.00 Weight (Pounds): 167 General Appearance: moderate distress EENT: scleral icterus Cardiovascular: normal rate Respiratory/Chest: normal breath sounds Abdomen: non tender, distended, hepatomegaly 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
[2019-03-13 04:00] VITALS: BP 113/69
--- NOTE | 2019-03-13 05:53 | NUR ---
NURSE NOTES: Called and left a message with Dr. Florin saucedo regarding pts abnormal labs. Awaiting call back.
--- NOTE | 2019-03-13 07:24 | NUR ---
NURSE NOTES: Report received from ESHA Alberts. Patient AOx4. IN 2L NC. Denies any pain or SOB. Finished breakfast. No distress noted. PiCC line dressing intact. Bed on lowest position, side rails upx2, brakes engaged, alarm on. Seizures precaution in place. Call light within easy reach.
--- NOTE | 2019-03-13 07:29 | NUR ---
HAND-OFF: Report given to ESHA Soto. Pt stable.
--- NOTE | 2019-03-13 07:37 | Urology Progress Note ---
Assessment/Plan Status: unchanged Assessment/Plan: 1. Gross hematuria history, improved. 2. Urinary retention. 3. Probable neurogenic bladder. 4. Urinary tract infection history. 5. Sepsis history. 6. STEFANI. monitor clinically delgado out and voiding abx as ordered monitor renal flomax 0.8 mg f/u on blood cx Subjective Allergies: Coded Allergies: No Known Allergies (Unverified , 02/10/15) Subjective all noted, voiding Objective Last 24 Hour Vital Signs Date Time Temp Pulse Resp B/P (MAP) Pulse Ox O2 Delivery O2 Flow Rate FiO2 03/13/19 04:00 97.4 92 19 113/69 (84) 98 03/13/19 04:00 104 03/13/19 00:00 114 03/12/19 20:59 Room Air Room Air 03/12/19 20:00 97.4 101 20 98/61 (73) 99 03/12/19 20:00 104 03/12/19 16:00 98.1 103 22 102/72 (82) 100 03/12/19 16:00 102 03/12/19 12:00 98.5 108 21 104/70 (81) 99 03/12/19 12:00 114 03/12/19 09:00 Room Air Room Air 03/12/19 08:00 111 03/12/19 08:00 97.0 111 22 98/69 (79) 98 Intake and Output 03/12/19 03/13/19 19:00 07:00 Intake Total 520 ml Output Total 600 ml Balance 520 ml -600 ml Intake Oral 520 ml Output Urine Total 600 ml # Voids 2 # Bowel Movements 2 1 Microbiology Date/Time Source Procedure Growth Status 03/08/19 18:15 Blood Blood Culture - Preliminary NO GROWTH AFTER 4 DAYS Resulted 03/05/19 12:30 Body Fluid Gram Stain - Final Complete 03/05/19 12:30 Body Fluid Body Fluid Culture - Final NO GROWTH Complete 02/27/19 15:00 Sputum Expectorated Pneumocystis jiroveci Smear (DFA) - Final Complete 02/22/19 23:55 Stool Clostridium difficile Toxin Assay - Final Complete 03/08/19 21:20 Indwelling Cath Urine Culture - Final NO GROWTH AFTER 48 HOURS Complete Current Medications Medications (Trade) Dose Ordered Sig/Tonny Route PRN Reason Start Time Stop Time Status Last Admin Dose Admin Ceftriaxone Sodium 1 gm/ Dextrose 50 ml @ 100 mls/hr Q24H IVPB 03/08/19 18:00 03/15/19 17:59 03/12/19 17:00 Chlorhexidine Gluconate (Stephanie-Hex 2%) 1 applic DAILY@2000 TOPIC 03/04/19 20:00 04/03/19 19:59 03/12/19 20:42 Dextrose (Dextrose 50%) 25 ml Q30M PRN IV Hypoglycemia 03/02/19 17:45 03/16/19 16:14 Dextrose (Dextrose 50%) 50 ml Q30M PRN IV Hypoglycemia 03/02/19 17:45 03/16/19 16:14 Lactobacillus Acidophilus (Culturelle) 1 tab EVERY 12 HOURS ORAL 03/02/19 21:00 03/26/19 17:59 03/12/19 20:42 Lactulose (Cephulac) 10 gm THREE TIMES A DAY ORAL 03/02/19 18:00 04/01/19 12:59 03/12/19 17:00 Lansoprazole (Prevacid) 30 mg EVERY 12 HOURS ORAL 03/12/19 21:00 04/11/19 20:59 03/12/19 20:43 Levetiracetam (Keppra) 500 mg Q12HR ORAL 03/03/19 21:00 04/02/19 20:59 03/12/19 20:43 Metronidazole 100 ml @ 100 mls/hr Q8HR IVPB 03/08/19 22:00 03/15/19 21:59 03/13/19 06:02 Ondansetron HCl (Zofran) 4 mg Q6H PRN IVP Nausea & Vomiting 03/02/19 18:30 03/16/19 18:29 Rifaximin (Xifaxan) 550 mg EVERY 12 HOURS ORAL 03/02/19 21:00 03/15/19 20:59 03/12/19 20:42 Tamsulosin HCl (Flomax) 0.8 mg BEDTIME ORAL 03/05/19 21:30 04/04/19 21:29 03/12/19 20:43 Thiamine HCl (Vitamin B1) 100 mg DAILY ORAL 03/07/19 09:00 03/27/19 08:59 03/12/19 08:52 Height (Feet): 5 Height (Inches): 5.00 Weight (Pounds): 172 Objective exam stable Jeremy Matta MD Mar 13, 2019 07:37
[2019-03-13 08:00] VITALS: BP 118/75
[2019-03-13] MEDS: Lactobacillus-GG tablet ORAL SCH ×2 (09:23→20:41)
[2019-03-13] MEDS: Lactulose 10gm/15ml UDC ORAL SCH ×3 (09:23→17:26)
[2019-03-13] MEDS: Thiamine 100mg tab ORAL SCH (09:23)
[2019-03-13 10:36] LABS: HEMATOCRIT 24.9 % (42.0-52.0); MEAN CORPUSCULAR VOLUME 98 FL (80-99); PLATELET COUNT 160 K/UL (150-450); RED BLOOD COUNT 2.55 M/UL (4.70-6.10); RED CELL DISTRIBUTION WIDTH 16.2 % (11.6-14.8); WHITE BLOOD COUNT 20.1 K/UL (4.8-10.8)
--- NOTE | 2019-03-13 10:36 | Surgery Progress Note ---
Surgery Progress Note Subjective Procedure Performed \ Symptoms: improved, pain absent, tolerating diet, passing flatus, BM Additional Comments AM labs pending will likely need repeat paracentesis Objective Last 24 Hour Vital Signs Date Time Temp Pulse Resp B/P (MAP) Pulse Ox O2 Delivery O2 Flow Rate FiO2 03/13/19 08:00 96.6 91 18 118/75 (89) 95 03/13/19 04:00 97.4 92 19 113/69 (84) 98 03/13/19 04:00 104 03/13/19 00:00 114 03/12/19 20:59 Room Air Room Air 03/12/19 20:00 97.4 101 20 98/61 (73) 99 03/12/19 20:00 104 03/12/19 16:00 98.1 103 22 102/72 (82) 100 03/12/19 16:00 102 03/12/19 12:00 98.5 108 21 104/70 (81) 99 03/12/19 12:00 114 I&O Intake and Output 03/12/19 03/13/19 19:00 07:00 Intake Total 520 ml Output Total 600 ml Balance 520 ml -600 ml Intake Oral 520 ml Output Urine Total 600 ml # Voids 2 # Bowel Movements 2 1 Cardiovascular: RSR Respiratory: clear Abdomen: soft, distended, non-tender, present bowel sounds Extremities: no edema, no tenderness, no cyanosis Laboratory Tests Test 03/13/19 10:20 White Blood Count Pending Red Blood Count Pending Hemoglobin Pending Hematocrit Pending Mean Corpuscular Volume Pending Mean Corpuscular Hemoglobin Pending Mean Corpuscular Hemoglobin Concent Pending Red Cell Distribution Width Pending Platelet Count Pending Mean Platelet Volume Pending Neutrophils (%) (Auto) Pending Lymphocytes (%) (Auto) Pending Monocytes (%) (Auto) Pending Eosinophils (%) (Auto) Pending Basophils (%) (Auto) Pending Sodium Level Pending Potassium Level Pending Chloride Level Pending Carbon Dioxide Level Pending Blood Urea Nitrogen Pending Creatinine Pending Estimat Glomerular Filtration Rate Pending Glucose Level Pending Calcium Level Pending Plan Problems: (1) Non-compliance Assessment & Plan: Noncompliance with seizure medication with known history of seizures Now had seizure Appreciate neurology input (2) Electrolyte and fluid disorder Assessment & Plan: Likely due to EtOH use and dehydration IV hydration Trend labs (3) Fever (4) Oral thrush (5) Diarrhea (6) Aspiration pneumonia (7) Seizure disorder (8) Tachycardia (9) Altered mental status (10) Alcohol withdrawal seizure (11) Alcohol withdrawal seizure (12) Episode of confusion (13) Coffee ground emesis (14) Gastrointestinal bleed Assessment & Plan: Patient on admission identified to have maroon-colored stool and coffee-ground emesis. Labs noted mild anemia with H&H trending down. No acute active bleed noted but given patient's history high risk for potential ulcers. PPI Appreciate GI input considerations for EGD once stable No evidence of pulmonary embolus, aortic dissection or aneurysm. Posterior basilar consolidation suspicious for pneumonia. Correlate clinically. Trace bilateral pleural effusions. Possible enterocolitis as described above. Please correlate clinically. Mild ascites Fatty liver Cholelithiasis with wall thickening. Cholecystitis not excluded. Small right inguinal hernia containing fat Extensive breathing motion artifact limiting evaluation. We will follow with recommendations thank you (15) Sinus tachycardia (16) Septic shock (17) Sepsis Assessment & Plan: Patient septic leukocytosis improved today lactic acidosis resolved anemia renal function declining electrolyte disturbance US noted picc out transition to oral meds extubated doing well US noted again. liver decompensated HIDA noted and likely cirrhosis delgado AM labs reordered s/p para micro negative improving overall May need repeat paracentesis soon (18) Lactic acid acidosis (19) STEFANI (acute kidney injury) (20) Abnormal LFTs (21) High anion gap metabolic acidosis Juanpablo Marcus Mar 13, 2019 10:35
--- NOTE | 2019-03-13 10:40 | GI Progress Note ---
Assessment/Plan Problems: (1) Coffee ground emesis ICD Codes: K92.0 - Hematemesis SNOMED: 58233363 (2) Episode of confusion ICD Codes: R41.0 - Disorientation, unspecified SNOMED: 99149571 (3) Gastrointestinal bleed ICD Codes: K92.2 - Gastrointestinal hemorrhage, unspecified SNOMED: 10096255 (4) Abnormal LFTs ICD Codes: R94.5 - Abnormal results of liver function studies SNOMED: 736833639 (5) Diarrhea ICD Codes: R19.7 - Diarrhea, unspecified SNOMED: 23599460 (6) Electrolyte and fluid disorder ICD Codes: E87.8 - Other disorders of electrolyte and fluid balance, not elsewhere classified SNOMED: 68747775 (7) Sepsis ICD Codes: A41.9 - Sepsis, unspecified organism SNOMED: 31942126 Status: unchanged Status Narrative Discussed with Dr. Bloom. Assessment/Plan SUMMARY OF FINDINGS: 1. Medium-sized hiatal hernia. 2. Portal hypertensive gastropathy, status post biopsy. US reviewed >> liver disease/cirrhosis with ascites s/p paracentesis. Assessment - Resp failure - diarrhea - UGIB abnormal LFT, negative hepatitis serologies, s/p U/S x 2 (no biliary dilation), downtrending - cirrhosis and sepsis/hypoperfusion - h/o EtOH, possible early cirrhosis EBV IGM elevation Check HSV IgM, negative Hepatitis Panel negative OB stool r/o GI bleed - positive Negative for H. Pylori. CMV negative RECOMMENDATIONS: No evidence of any active GI bleeding at this time. consider colonoscopy if needed. low dose lactulose + Xifaxan PT evaluation prn transfusions follow labs The patient was seen and examined at bedside and all new and available data was reviewed in the patients chart. I agree with the above findings, impression and plan. (Patient seen earlier today. Signature stamp does not reflect patient encounter time.). - Jones Bloom MD Subjective Gastrointestinal/Abdominal: Reports: no symptoms Objective Last 24 Hour Vital Signs Date Time Temp Pulse Resp B/P (MAP) Pulse Ox O2 Delivery O2 Flow Rate FiO2 03/13/19 08:00 115 03/13/19 08:00 96.6 91 18 118/75 (89) 95 03/13/19 04:00 97.4 92 19 113/69 (84) 98 03/13/19 04:00 104 03/13/19 00:00 114 03/12/19 20:59 Room Air Room Air 03/12/19 20:00 97.4 101 20 98/61 (73) 99 03/12/19 20:00 104 03/12/19 16:00 98.1 103 22 102/72 (82) 100 03/12/19 16:00 102 03/12/19 12:00 98.5 108 21 104/70 (81) 99 03/12/19 12:00 114 Intake and Output 03/12/19 03/13/19 19:00 07:00 Intake Total 520 ml Output Total 600 ml Balance 520 ml -600 ml Intake Oral 520 ml Output Urine Total 600 ml # Voids 2 # Bowel Movements 2 1 Laboratory Tests Test 03/13/19 10:20 White Blood Count Pending Red Blood Count Pending Hemoglobin Pending Hematocrit Pending Mean Corpuscular Volume Pending Mean Corpuscular Hemoglobin Pending Mean Corpuscular Hemoglobin Concent Pending Red Cell Distribution Width Pending Platelet Count Pending Mean Platelet Volume Pending Neutrophils (%) (Auto) Pending Lymphocytes (%) (Auto) Pending Monocytes (%) (Auto) Pending Eosinophils (%) (Auto) Pending Basophils (%) (Auto) Pending Sodium Level Pending Potassium Level Pending Chloride Level Pending Carbon Dioxide Level Pending Blood Urea Nitrogen Pending Creatinine Pending Estimat Glomerular Filtration Rate Pending Glucose Level Pending Calcium Level Pending Height (Feet): 5 Height (Inches): 5.00 Weight (Pounds): 172 General Appearance: no apparent distress Cardiovascular: normal rate Respiratory/Chest: normal breath sounds, no respiratory distress Abdominal Exam: normal bowel sounds, non tender, soft, GT site Extremities: non-tender Juno Naranjo FAMILY CONSUMER SCIENCE [employer] TEACHER Mar 13, 2019 10:40
[2019-03-13 10:48] LABS: ANION GAP 7 mmol/L (5-15); BLOOD UREA NITROGEN 22 mg/dL (7-18); CARBON DIOXIDE 25 MMOL/L (21-32); CHLORIDE 101 MMOL/L (98-107); CREATININE 1.8 MG/DL (0.55-1.30); POTASSIUM 4.9 MMOL/L (3.5-5.1); SODIUM 133 MMOL/L (136-145)
--- NOTE | 2019-03-13 11:48 | Cardiac Electrophysiology PN ---
Assessment/Plan Assessment/Plan 1. Sinus tachycardia up to 170s. No myocardial infarction . Due to sepsis, anemia and alcohol withdrawal. EF 60%. In SR now in 90s 2. S/P Septic shock and E Coli bacteremia, on 3 broad-spectrum IV antibiotics. Indium scan pending per Dr Negrete 3. Troponin leak. Type 2. No CP 4. S/P Respiratory failure. Self extubated S/P Bronchoscopy and removal of mucus plug 5. ETOH withdrawal 6. Seizures with noncompliance. 7. Upper gi bleed. S/P EGD 8. Hematuria, resolved 9. Coffee ground emesis. EGD showed Medium-sized hiatal hernia and Portal hypertensive gastropathy 10. Liver cirrhosis with ascites. Billirubin down [address] Goldberg S/P Paracentesis 4 liters on 03/04/19. On Lactulose S/P Paracentesis 3 liters 03/15/19 DW RN and sister DC planning vs Paracentesis if US more Ascites Subjective Subjective In SR in NAD. Had 3 liter Paracentesis on 03/09/19. Repeat US pending for another paracentesis Objective Last 24 Hour Vital Signs Date Time Temp Pulse Resp B/P (MAP) Pulse Ox O2 Delivery O2 Flow Rate FiO2 03/13/19 08:00 115 03/13/19 08:00 96.6 91 18 118/75 (89) 95 03/13/19 04:00 97.4 92 19 113/69 (84) 98 03/13/19 04:00 104 03/13/19 00:00 114 03/12/19 20:59 Room Air Room Air 03/12/19 20:00 97.4 101 20 98/61 (73) 99 03/12/19 20:00 104 03/12/19 16:00 98.1 103 22 102/72 (82) 100 03/12/19 16:00 102 03/12/19 12:00 98.5 108 21 104/70 (81) 99 03/12/19 12:00 114 Intake and Output 03/12/19 03/13/19 19:00 07:00 Intake Total 520 ml Output Total 600 ml Balance 520 ml -600 ml Intake Oral 520 ml Output Urine Total 600 ml # Voids 2 # Bowel Movements 2 1 Laboratory Tests Test 03/13/19 10:20 White Blood Count 20.1 K/UL (4.8-10.8) H Red Blood Count 2.55 M/UL (4.70-6.10) L Hemoglobin 8.0 G/DL (14.2-18.0) L Hematocrit 24.9 % (42.0-52.0) L Mean Corpuscular Volume 98 FL (80-99) Mean Corpuscular Hemoglobin 31.5 PG (27.0-31.0) H Mean Corpuscular Hemoglobin Concent 32.2 G/DL (32.0-36.0) Red Cell Distribution Width 16.2 % (11.6-14.8) H Platelet Count 160 K/UL (150-450) Mean Platelet Volume 6.9 FL (6.5-10.1) Neutrophils (%) (Auto) % (45.0-75.0) Lymphocytes (%) (Auto) % (20.0-45.0) Monocytes (%) (Auto) % (1.0-10.0) Eosinophils (%) (Auto) % (0.0-3.0) Basophils (%) (Auto) % (0.0-2.0) Differential Total Cells Counted 100 Neutrophils % (Manual) 78 % (45-75) H Lymphocytes % (Manual) 9 % (20-45) L Monocytes % (Manual) 7 % (1-10) Eosinophils % (Manual) 4 % (0-3) H Basophils % (Manual) 2 % (0-2) Band Neutrophils 0 % (0-8) Platelet Estimate Adequate Platelet Morphology Normal Hypochromasia 2+ Anisocytosis 1+ Sodium Level 133 MMOL/L (136-145) L Potassium Level 4.9 MMOL/L (3.5-5.1) Chloride Level 101 MMOL/L (98-107) Carbon Dioxide Level 25 MMOL/L (21-32) Anion Gap 7 mmol/L (5-15) Blood Urea Nitrogen 22 mg/dL (7-18) H Creatinine 1.8 MG/DL (0.55-1.30) H Estimat Glomerular Filtration Rate 47.8 mL/min (>60) Glucose Level 135 MG/DL (74-106) H Calcium Level 8.0 MG/DL (8.5-10.1) L Objective HEAD AND NECK: No JV. Icteric sclera LUNGS: Decreased breath sounds. CARDIOVASCULAR: Regular S1 and S2 with no gallop or murmur. ABDOMEN: Soft with ascites EXTREMITIES: No pitting edema. Fidencio Trevino MD Mar 13, 2019 11:48
[2019-03-13 12:00] VITALS: BP 109/77
--- NOTE | 2019-03-13 12:16 | NUR ---
RD ASSESSMENT & RECOMMENDATIONS SEE CARE ACTIVITY FOR COMPLETE ASSESSMENT DAILY ESTIMATED NEEDS: Needs based on Pulmonary, liver dysfunction, sepsis 72.7kg 25-30 kcals/kg 0710-3534 total kcals 1-2 g protein/kg 73-145 g total protein 25-30 mL/kg 0804-3360 total fluid mLs NUTRITION DIAGNOSIS: 1) Swallowing difficulty r/t respiratory status as evidenced by pt now s/p extubation, OGT removed, on pureed moist-> now ms finely chopped w/ thin liquids per ENTERPRISE ACCOUNT EXECUTIVE rec. 2) Altered nutrition related lab values r/t clinical condition as evidenced by pt w/ low lytes (K now wnl, phos now wnl, Mg 1.7), critically elev WBC-> trend down, elev ammonia-> now wnl, elev T bili (1.4->11.0-> 6.4-> 3.7 trend back down). CURRENT DIET:REGULAR, ms finely chopped w/ thin liquids PO DIET RECOMMENDATIONS: LOW NA/ texture per ENTERPRISE ACCOUNT EXECUTIVE ADDITIONAL RECOMMENDATIONS: 1) Obtain a CALIBRATED BED SCALE wt 2) Monitor lytes daily, replete as needed (low mag) 3) Monitor LFTs and T bili ( T bili 1.4 ->11.0 -> now trend back down 3.7 ) 4) Noted improved intake on texture upgrade to MS finely chopped 5) MVI x 1 as supplement 6) Consider decreasing lactulose- NH3 wnl on 03/03, frequent diarrhea 7) Ensure Enlive BID w/ poor PO intake
--- NOTE | 2019-03-13 13:23 | Nephrology Progress Note ---
Assessment/Plan Problem List: (1) STEFANI (acute kidney injury) (2) Septic shock (3) Electrolyte and fluid disorder (4) Abnormal LFTs Assessment: fatty liver (5) Hyperbilirubinemia Assessment - STEFANI (acute kidney injury) - Septic shock - Lactic acid acidosis - Abnormal LFTs - Gastrointestinal bleed - Alcohol withdrawal seizure Plan mag IV as needed K and Mag and Phos supplement as needed PRN Albumin bolus for low bp Midodrine post extubation care Pressors / Fluids as needed Aim to correct the electrolyte and acid base imbalance monitor renal parameters gastric support switch dilantin to keppra as LFTs rising per orders Subjective ROS Limited/Unobtainable: No Constitutional: Reports: malaise Objective Objective Last 24 Hour Vital Signs Date Time Temp Pulse Resp B/P (MAP) Pulse Ox O2 Delivery O2 Flow Rate FiO2 03/13/19 12:00 97.1 105 20 109/77 (88) 95 03/13/19 12:00 112 03/13/19 09:00 Room Air Room Air 03/13/19 08:00 115 03/13/19 08:00 96.6 91 18 118/75 (89) 95 03/13/19 04:00 97.4 92 19 113/69 (84) 98 03/13/19 04:00 104 03/13/19 00:00 114 03/12/19 20:59 Room Air Room Air 03/12/19 20:00 97.4 101 20 98/61 (73) 99 03/12/19 20:00 104 03/12/19 16:00 98.1 103 22 102/72 (82) 100 03/12/19 16:00 102 Intake and Output 03/12/19 03/13/19 18:59 06:59 Intake Total 520 ml Output Total 600 ml Balance 520 ml -600 ml Intake Oral 520 ml Output Urine Total 600 ml # Voids 2 # Bowel Movements 2 1 Laboratory Tests 03/13/19 10:20: White Blood Count 20.1H, Red Blood Count 2.55L, Hemoglobin 8.0L, Hematocrit 24.9L, Mean Corpuscular Volume 98, Mean Corpuscular Hemoglobin 31.5H, Mean Corpuscular Hemoglobin Concent 32.2, Red Cell Distribution Width 16.2H, Platelet Count 160, Mean Platelet Volume 6.9, Neutrophils (%) (Auto) , Lymphocytes (%) (Auto) , Monocytes (%) (Auto) , Eosinophils (%) (Auto) , Basophils (%) (Auto) , Differential Total Cells Counted 100, Neutrophils % ( Manual) 78H, Lymphocytes % (Manual) 9L, Monocytes % (Manual) 7, Eosinophils % ( Manual) 4H, Basophils % (Manual) 2, Band Neutrophils 0, Platelet Estimate Adequate, Platelet Morphology Normal, Hypochromasia 2+, Anisocytosis 1+, Sodium Level 133L, Potassium Level 4.9, Chloride Level 101, Carbon Dioxide Level 25, Anion Gap 7, Blood Urea Nitrogen 22H, Creatinine 1.8H, Estimat Glomerular Filtration Rate 47.8, Glucose Level 135H, Calcium Level 8.0L Height (Feet): 5 Height (Inches): 5.00 Weight (Pounds): 172 General Appearance: no apparent distress Objective no change Scotty Bailon MD Mar 13, 2019 13:23
--- NOTE | 2019-03-13 14:19 | NUR ---
MICROELECTRONICS TECHNICIANEXERCISER HORSE SI; SEIZURES,LEUKOCYTOSIS T. 97.1 HR 114 RR 19 B/P 109/77 RA 98% WBC 20.1 NA 133 BUN 22 CR 1.8 IS: FLAGYL IV CEFTRIAXONE IV KEPPRA PO NM INDIUM RESULTS PENDING TELE STATUS
--- NOTE | 2019-03-13 14:21 | NUR ---
WOODYARD OPERATOR NOTES SPOKE WITH ANTWON, MADE AWARE OF ONGOING DCP. DC PACKET FAXED TO [phone]. WILL CONTINUE TO FOLLOW UP.
--- NOTE | 2019-03-13 14:26 | General Progress Note ---
Assessment/Plan Status: unchanged Assessment/Plan: 54 year old male with pMH of seizure disorder and etoh abuse admitted for seizures 2/2 non-compliance # Transaminitis- improving - s/p paracentesis today, 3L removed - f/u HIDA : non obstructive, findings c/w intracellular damage - ctm - appreciate GI and Sx input - us shows nodularity and chronic disease - hep panel negative - ggt increased - f/u GI - h/o EtOH, possible early cirrhosis EBV IGM elevation Check HSV IgM, negative Hepatitis Panel negative Follow up path of EGD noted with portal hypertensive gastropathy. Negative for H. Pylori. - paracentesis prn # Hemoptysis- resolved - s/p bronch - monitor hgb #severe septic shock likely 2/2 UTI- resolved #Gram negative bacteremia, now resolved by surveillance follow up blood culture (last 02/20) - s/p treatment #Acute respiratory failure requiting intubation, s/p extubation -s/p Vanc and Zosyn - gentamicin - s/p Fluconazole per ID - CBC serial. - CT 02/18 with atelectasis primarily - Diuresis started and good response -ID consult appreciated - Immunoglobulin and hepatitis panel negative. -cont ICU care - Reviewed CT chest/abd/pel #Lactic acidosis -2/2 severe shock/ poss abd source/ seizures - 2 D Echo on 02/16 with EF 65%. Discussed with cardiology and etiology likely sepsis and not cardiogenic -CTM -Fluid boluses completed. -Cont mIVF #Coagulopathy # Thrombocytopenia - 40,000 stable Monitor. No active bleeding - Hematology consult with Dr. Johnston appreciated. Flow cytometry pending. -likely 2/2 hepatic injury 2/2 shock - Consumption coagulopathy. - Consider platelet transfusion if LESS than 30K with urine blood tinge color. #Coffee ground emesis likely in setting of GI bleed- resolved -H/H trending down. Monitor -GI consult appreciated - s/p egd as above, reviewed: gastritis -surgery consult appreciated #Seizures 2/2 noncomplaint with AED- controlled -s/p phenytoin load in ED -Cont Phenytoin -Neurology consult appreciated -pending EEG - no seizures noted in last 24 hours -Ativan PRN for seizures -NPO -Seizure precautions #Hypokalemia - Replete as needed #hypophosphatemia - Repleted. #Hypomagnesemia -repleted -CTM # Urethral hemorrhage and clot evacuation - Discussed with Dr. Matta over the phone and bleeding stopped spontaneously, No formal urology consult for now in place. - If recurrent hemorrhage will address. - H/H and INR stat today. - Consider PRBC and Platelets if Hb < 8 or Plt < 30 K # Urinary retention PVR > 300 cc WILKINSON replaced 02/[address] ( in case of repeat hemorrhage ) D/w RN Code: Full Subjective Date patient seen: Mar 13, 2019 Time patient seen: 12:30 Allergies: Coded Allergies: No Known Allergies (Unverified , 02/10/15) Subjective patient is alert para centesis today removed 3L TREY Objective Last 24 Hour Vital Signs Date Time Temp Pulse Resp B/P (MAP) Pulse Ox O2 Delivery O2 Flow Rate FiO2 03/13/19 12:00 97.1 105 20 109/77 (88) 95 03/13/19 12:00 112 03/13/19 09:00 Room Air Room Air 03/13/19 08:00 115 03/13/19 08:00 96.6 91 18 118/75 (89) 95 03/13/19 04:00 97.4 92 19 113/69 (84) 98 03/13/19 04:00 104 03/13/19 00:00 114 03/12/19 20:59 Room Air Room Air 03/12/19 20:00 97.4 101 20 98/61 (73) 99 03/12/19 20:00 104 03/12/19 16:00 98.1 103 22 102/72 (82) 100 03/12/19 16:00 102 Intake and Output 03/12/19 03/13/19 18:59 06:59 Intake Total 520 ml Output Total 600 ml Balance 520 ml -600 ml Intake Oral 520 ml Output Urine Total 600 ml # Voids 2 # Bowel Movements 2 1 Laboratory Tests 03/13/19 10:20: White Blood Count 20.1H, Red Blood Count 2.55L, Hemoglobin 8.0L, Hematocrit 24.9L, Mean Corpuscular Volume 98, Mean Corpuscular Hemoglobin 31.5H, Mean Corpuscular Hemoglobin Concent 32.2, Red Cell Distribution Width 16.2H, Platelet Count 160, Mean Platelet Volume 6.9, Neutrophils (%) (Auto) , Lymphocytes (%) (Auto) , Monocytes (%) (Auto) , Eosinophils (%) (Auto) , Basophils (%) (Auto) , Differential Total Cells Counted 100, Neutrophils % ( Manual) 78H, Lymphocytes % (Manual) 9L, Monocytes % (Manual) 7, Eosinophils % ( Manual) 4H, Basophils % (Manual) 2, Band Neutrophils 0, Platelet Estimate Adequate, Platelet Morphology Normal, Hypochromasia 2+, Anisocytosis 1+, Sodium Level 133L, Potassium Level 4.9, Chloride Level 101, Carbon Dioxide Level 25, Anion Gap 7, Blood Urea Nitrogen 22H, Creatinine 1.8H, Estimat Glomerular Filtration Rate 47.8, Glucose Level 135H, Calcium Level 8.0L Height (Feet): 5 Height (Inches): 5.00 Weight (Pounds): 172 General Appearance: WD/WN, no apparent distress, alert EENT: normal ENT inspection, TMs normal Neck: non-tender, normal alignment, supple Cardiovascular: normal peripheral pulses, normal rate, no JVD Respiratory/Chest: chest wall non-tender, lungs clear, normal breath sounds Abdomen: normal bowel sounds, non tender, soft Extremities: normal range of motion, non-tender Edema: no edema noted Arm (L), no edema noted Arm (R), no edema noted Leg (L), no edema noted Leg (R), no edema noted Pedal (L), no edema noted Pedal (R), no edema noted Generalized Neurologic: psychodramatist II-XII grossly normal, oriented x 3, responsive Heather Iglesias DO Mar 13, 2019 14:26
--- NOTE | 2019-03-13 15:17 | NUR ---
Indium WBC Scan complete.
--- NOTE | 2019-03-13 15:19 | Hematology/Onc Progress Note ---
Assessment/Plan Assessment/Plan # Bicytopenia with anemia likely due to liver cirrhosis and hronic etoh use -- stool occult blood +, also with etoh withdrawal, also can be related to meds/abx , Hida shows Limited hepatic uptake and excretion, probably due to hepatocellular disease. Note that previous imaging studies suggest the presence of cirrhotic changes. Also there is potential component of active infection of causing bicytopenia --> anemia panel has been reviewed and results are acd --> continue on folate 1mg po daily (LOW FOLATE) --> Flow cytometry shows no evidence of b-lymphoproliferative disorder --> Hep panel negative --> thoracentesis cytology negative for malignant cells --> plt trend 300k-->170k-->138k-->130k-->126k-->148k-->160k # Anemia of chronic disease, per anemia panel --> hgb trend 8-->7-->8-->9-->8.6-->7.7-->7.9-->8.3-->7.9->8.5-->9-->10-->9.9--> 7.7-->9.4-->8.9-->8.7-->8.5-->8.2 --> peripheral smear reviewed and not noted to have blasts --> may require gi eval when more stable with scope (EGD) --> transfuse if hgb <7 --> cont folic acid and thiamine tabs # Leukocytosis due to Septic shock and severe Lactic acidosis on Levophed and broad-spectrum IV antibiotics. --> per ID care, continue abx --> pressor as needed --> flagyl, cefepime, carmen--> NOW flagyl, ceftriaxone --> wbc trend: 34.9 -->28k-->35k-->17k-->20.7-->22k-->24k-->22k-->20k-->20k # Coagulopathy with a history of liver disease/cirrhosis (HX OF ETOH abuse) with portal htn --> no evidence of gi bleed at this time --> vit K to be given sq on prn basis --> gi on board # Sinus tachycardia up to 170s. No evidence of acute mi --> This is likely due to sepsis and anemia, alcohol withdrawal --> Echo Nl EF 60% # Troponin leak, type 2 --> per cards # Respiratory failure on the vent. Has failed weaning --> sbt trial per pulm, now extubated --> 02/27 the bronchoscope was advanced into both mainstem bronchi and subsegmental bronchi. There was increased secretions b/l, mucopurulent including mucus plugging of the right upper lobe, which was therapeutically aspirated. BAL specimen was sent. # Transaminitis with elev bilis --> as per gi with ast/alt high --> monitor for resolution of sepsis # ETOH withdrawal --> recommend etoh cessation # Seizures with noncompliance --> per neuro Greatly appreciate consultation. Subjective Constitutional: Denies: no symptoms, chills, fever, malaise, weakness, other Respiratory: Denies: no symptoms, cough, shortness of breath, SOB with excertion, SOB at rest, sputum, wheezing, other Gastrointestinal/Abdominal: Denies: no symptoms, abdomen distended, abdominal pain, black stools, tarry stools, blood in stool, constipated, diarrhea, difficulty swallowing, nausea, poor appetite, poor fluid intake, rectal bleeding , vomiting, other Genitourinary: Denies: no symptoms, burning, discharge, frequency, flank pain, hematuria, incontinence, pain, urgency, other Neurologic/Psychiatric: Denies: no symptoms, anxiety, depressed, emotional problems, headache, numbness, paresthesia, pre-existing deficit, seizure, tingling, tremors, weakness, other Endocrine: Denies: no symptoms, excessive sweating, flushing, intolerance to cold, intolerance to heat, increased hunger, increased thirst, increased urine, unexplained weight gain, unexplained weight loss, other Allergies: Coded Allergies: No Known Allergies (Unverified , 02/10/15) Subjective 02/20: intubated, counts are better, on vent, sbt in process, no f/c, mag low 02/21: endoscopy on hold at this time, bloody stool, plt better, on abx 02/22: no events reported, remains intubated, no bleeding, plt better, k is low, repleted\ 02/23: remains in icu, letargic, flow cytometry showed no evidence of b- lymphoproliferative disorder, c-diif negative, labs reviewed, remains on levo 02/24: in icu, on vent, wbc at 32, id made aware. 02/25: icu, weaning off of vent, labs reviewed, continues on abx 02/26: no fc, no changes reported, wbc high, ongoing hida scan 02/27: no events, bronch to be done today, results pending 02/28: no f/c, restraints++, ogt was inserted 03/01: s/p extubation, self-extubated, otherwise on abx, off pressors 03/02: no events too report, labs have been reviewed, off abx, remains agitated 03/03 no fevers or chills, no changes, breathing better, less altered 03/05: no events, no bleeding, hgb 7.7, on RA only, sating well 03/06: hgb is low, otherwise without event, slightly improved, as per gi transaminitis, bilis are better 03/07: no overnight events, still jaundiced, delgado removed, h/h stable, thoracentesis cytology negative for malignant cells 03/08: patient is asleep, delgado draining well to gravity, no f/c, no major changes , seen by uro 03/09: gross hematuria has improved, seen by uro, no f/c 03/11: is resting in bed, is comfortable, remains relatively unchanged, remains on abx 03/12: no major hematuria noted, in bed, comfortable, labs reviewed, hgb 8.2 03/13: no events to report, no f/c, no major changes, seen by gi Objective Objective Current Medications Medications (Trade) Dose Ordered Sig/Tonny Route PRN Reason Start Time Stop Time Status Last Admin Dose Admin Ceftriaxone Sodium 1 gm/ Dextrose 50 ml @ 100 mls/hr Q24H IVPB 03/08/19 18:00 03/15/19 17:59 03/12/19 17:00 Chlorhexidine Gluconate (Stephanie-Hex 2%) 1 applic DAILY@1999 TOPIC 03/04/19 20:00 04/03/19 19:59 03/12/19 20:42 Dextrose (Dextrose 50%) 25 ml Q30M PRN IV Hypoglycemia 03/02/19 17:45 03/16/19 16:14 Dextrose (Dextrose 50%) 50 ml Q30M PRN IV Hypoglycemia 03/02/19 17:45 03/16/19 16:14 Lactobacillus Acidophilus (Culturelle) 1 tab EVERY 12 HOURS ORAL 03/02/19 21:00 03/26/19 17:59 03/13/19 09:23 Lactulose (Cephulac) 10 gm THREE TIMES A DAY ORAL 03/02/19 18:00 04/01/19 12:59 03/13/19 13:17 Lansoprazole (Prevacid) 30 mg EVERY 12 HOURS ORAL 03/13/19 10:30 04/12/19 10:29 03/13/19 11:56 Levetiracetam (Keppra) 500 mg Q12HR ORAL 03/03/19 21:00 04/02/19 20:59 03/13/19 09:23 Metronidazole 100 ml @ 100 mls/hr Q8HR IVPB 03/08/19 22:00 03/15/19 21:59 03/13/19 15:07 Ondansetron HCl (Zofran) 4 mg Q6H PRN IVP Nausea & Vomiting 03/02/19 18:30 03/16/19 18:29 Rifaximin (Xifaxan) 550 mg EVERY 12 HOURS ORAL 03/02/19 21:00 03/15/19 23:00 03/13/19 09:23 Tamsulosin HCl (Flomax) 0.8 mg BEDTIME ORAL 03/05/19 21:30 04/04/19 21:29 03/12/19 20:43 Thiamine HCl (Vitamin B1) 100 mg DAILY ORAL 03/07/19 09:00 03/27/19 08:59 03/13/19 09:23 Last 24 Hour Vital Signs Date Time Temp Pulse Resp B/P (MAP) Pulse Ox O2 Delivery O2 Flow Rate FiO2 03/13/19 12:00 97.1 105 20 109/77 (88) 95 03/13/19 12:00 112 03/13/19 09:00 Room Air Room Air 03/13/19 08:00 115 03/13/19 08:00 96.6 91 18 118/75 (89) 95 03/13/19 04:00 97.4 92 19 113/69 (84) 98 03/13/19 04:00 104 03/13/19 00:00 114 03/12/19 20:59 Room Air Room Air 03/12/19 20:00 97.4 101 20 98/61 (73) 99 03/12/19 20:00 104 03/12/19 16:00 98.1 103 22 102/72 (82) 100 03/12/19 16:00 102 03/12/19 12:00 98.5 108 21 104/70 (81) 99 03/12/19 12:00 114 03/12/19 09:00 Room Air Room Air 03/12/19 08:00 111 03/12/19 08:00 97.0 111 22 98/69 (79) 98 03/12/19 04:00 97.5 95 18 116/69 (85) 99 03/12/19 04:00 114 03/12/19 00:00 77 03/12/19 00:00 97.5 98 18 115/70 (85) 100 03/11/19 21:00 Room Air Room Air 03/11/19 20:00 97.6 106 19 112/74 (87) 100 03/11/19 20:00 101 03/11/19 16:00 98.6 96 18 108/68 (81) 100 03/11/19 16:00 107 Intake and Output 03/12/19 03/13/19 18:59 06:59 Intake Total 520 ml Output Total 600 ml Balance 520 ml -600 ml Intake Oral 520 ml Output Urine Total 600 ml # Voids 2 # Bowel Movements 2 1 Labs Test 03/11/19 04:00 03/12/19 06:00 03/13/19 10:20 White Blood Count 22.4 K/UL (4.8-10.8) 20.1 K/UL (4.8-10.8) 20.1 K/UL (4.8-10.8) Red Blood Count 2.70 M/UL (4.70-6.10) 2.58 M/UL (4.70-6.10) 2.55 M/UL (4.70-6.10) Hemoglobin 8.5 G/DL (14.2-18.0) 8.2 G/DL (14.2-18.0) 8.0 G/DL (14.2-18.0) Hematocrit 26.6 % (42.0-52.0) 25.4 % (42.0-52.0) 24.9 % (42.0-52.0) Mean Corpuscular Volume 98 FL (80-99) 98 FL (80-99) 98 FL (80-99) Mean Corpuscular Hemoglobin 31.6 PG (27.0-31.0) 31.6 PG (27.0-31.0) 31.5 PG (27.0-31.0) Mean Corpuscular Hemoglobin Concent 32.1 G/DL (32.0-36.0) 32.2 G/DL (32.0-36.0) 32.2 G/DL (32.0-36.0) Red Cell Distribution Width 15.6 % (11.6-14.8) 15.3 % (11.6-14.8) 16.2 % (11.6-14.8) Platelet Count 126 K/UL (150-450) 148 K/UL (150-450) 160 K/UL (150-450) Mean Platelet Volume 7.5 FL (6.5-10.1) 7.6 FL (6.5-10.1) 6.9 FL (6.5-10.1) Neutrophils (%) (Auto) % (45.0-75.0) % (45.0-75.0) % (45.0-75.0) Lymphocytes (%) (Auto) % (20.0-45.0) % (20.0-45.0) % (20.0-45.0) Monocytes (%) (Auto) % (1.0-10.0) % (1.0-10.0) % (1.0-10.0) Eosinophils (%) (Auto) % (0.0-3.0) % (0.0-3.0) % (0.0-3.0) Basophils (%) (Auto) % (0.0-2.0) % (0.0-2.0) % (0.0-2.0) Differential Total Cells Counted 100 100 100 Neutrophils % (Manual) 79 % (45-75) 76 % (45-75) 78 % (45-75) Lymphocytes % (Manual) 8 % (20-45) 9 % (20-45) 9 % (20-45) Monocytes % (Manual) 12 % (1-10) 12 % (1-10) 7 % (1-10) Eosinophils % (Manual) 1 % (0-3) 3 % (0-3) 4 % (0-3) Basophils % (Manual) 0 % (0-2) 0 % (0-2) 2 % (0-2) Band Neutrophils 0 % (0-8) 0 % (0-8) 0 % (0-8) Platelet Estimate Decreased Decreased Adequate Platelet Morphology Normal Normal Normal Hypochromasia 1+ 1+ 2+ Anisocytosis 1+ 1+ 1+ Sodium Level 133 MMOL/L (136-145) 133 MMOL/L (136-145) 133 MMOL/L (136-145) Potassium Level 4.9 MMOL/L (3.5-5.1) 5.0 MMOL/L (3.5-5.1) 4.9 MMOL/L (3.5-5.1) Chloride Level 102 MMOL/L (98-107) 103 MMOL/L (98-107) 101 MMOL/L (98-107) Carbon Dioxide Level 26 MMOL/L (21-32) 25 MMOL/L (21-32) 25 MMOL/L (21-32) Anion Gap 6 mmol/L (5-15) 5 mmol/L (5-15) 7 mmol/L (5-15) Blood Urea Nitrogen 23 mg/dL (7-18) 22 mg/dL (7-18) 22 mg/dL (7-18) Creatinine 1.7 MG/DL (0.55-1.30) 1.7 MG/DL (0.55-1.30) 1.8 MG/DL (0.55-1.30) Estimat Glomerular Filtration Rate 51.0 mL/min (>60) 51.0 mL/min (>60) 47.8 mL/min (>60) Glucose Level 108 MG/DL (74-106) 106 MG/DL (74-106) 135 MG/DL (74-106) Calcium Level 7.9 MG/DL (8.5-10.1) 8.1 MG/DL (8.5-10.1) 8.0 MG/DL (8.5-10.1) Total Bilirubin 4.4 MG/DL (0.2-1.0) 3.7 MG/DL (0.2-1.0) Direct Bilirubin 3.5 MG/DL (0.0-0.3) 3.1 MG/DL (0.0-0.3) Aspartate Amino Transf (AST/SGOT) 59 U/L (15-37) 55 U/L (15-37) Alanine Aminotransferase (ALT/SGPT) 26 U/L (12-78) 21 U/L (12-78) Alkaline Phosphatase 190 U/L (46-116) 186 U/L (46-116) Total Protein 6.8 G/DL (6.4-8.2) 6.8 G/DL (6.4-8.2) Albumin 1.4 G/DL (3.4-5.0) 1.4 G/DL (3.4-5.0) Globulin 5.4 g/dL 5.4 g/dL Albumin/Globulin Ratio 0.3 (1.0-2.7) 0.3 (1.0-2.7) Height (Feet): 5 Height (Inches): 5.00 Weight (Pounds): 172 Objective Gen: NAD Heent: atraumatic Lungs: clear, ++RA sating 95% Heart: HR/BP unstable Abdomen: soft, non-tender, active bowel sounds Extremities: no cce, L femoral cath+, bilateral wrist restraints are off Robert Johnston MD Mar 13, 2019 15:19
--- NOTE | 2019-03-13 15:25 | NUR ---
*-* INSURANCE *-* UPDATED CLINICAL AD REVIEWS HAVE BEEN FAXED TO: VANESSA COREA: ANTWON P- [phone]..............REVIEW/CLINICAL
--- NOTE | 2019-03-13 15:27 | Diagnostic Imaging Report ---
Indication: Unexplained leukocytosis Technique: 530 microcuries of Indium labelled WBCs was injected intravenously. Labelling performed using an in-vitro technique. A whole-body bone scan was then performed in anterior and posterior projections after a 24 hour delay. Comparison: None Findings: . Full body images cannot be obtained due to camera malfunction. Spot images of the chest abdomen, head and neck show no abnormal uptake. Impression: Somewhat limited evaluation but no abnormalities identified.
[2019-03-13 16:00] VITALS: BP 116/74
[2019-03-13] MEDS: cefTRIAXone 1 GM in D5W 50 ML IVPB SCH (17:27)
--- NOTE | 2019-03-13 18:00 | NUR ---
NURSE NOTES: Communicated with Dr. Marcus, Dr. Bloom and Surinder Patient's feeling of fatigue and non progressive abd distension.
--- NOTE | 2019-03-13 19:35 | NUR ---
HAND-OFF: Report given to ESHA Rodriguez. Patient in stable condition. In RA. No complaints of pain or SOB.
--- NOTE | 2019-03-13 19:46 | NUR ---
NURSE NOTES: RECEIVED PATIENT RESTING IN BED, NO COMPLAINTS OF PAIN AT THIS TIME. FALL, SEIZURE AND ASPIRATION PRECAUTIONS IN PLACE: CALL LIGHT AND BEDSIDE TABLE WITHIN REACH, BED IN LOW POSITION AND BED ALARM ON, SIDE RAILS PADDED AND HOB ELEVATED. PLAN OF CARE REVIEWED.
[2019-03-13 20:00] VITALS: BP 110/74
[2019-03-13] MEDS: Dyna-Hex 2% Top Sol 2oz TOPIC SCH (20:41)
[2019-03-13] MEDS: Tamsulosin 0.4mg cap ORAL SCH (20:42)
[2019-03-14] VITALS: BP 115/76
[2019-03-14 04:00] VITALS: BP 96/58
[2019-03-14 04:31] LABS: HEMATOCRIT 22.8 % (42.0-52.0); HEMOGLOBIN 7.3 G/DL (14.2-18.0); MEAN CORPUSCULAR VOLUME 98 FL (80-99); PLATELET COUNT 156 K/UL (150-450); RED BLOOD COUNT 2.32 M/UL (4.70-6.10); RED CELL DISTRIBUTION WIDTH 15.2 % (11.6-14.8); WHITE BLOOD COUNT 16.3 K/UL (4.8-10.8)
[2019-03-14 05:28] LABS: % IRON SATURATION 87 % (15-50); IRON 55 ug/dL (50-175); TOTAL IRON BINDING CAPACITY 63 ug/dL (250-450)
[2019-03-14 06:42] LABS: FERRITIN 396 NG/ML (8-388); GAMMA GLUTAMYL TRANSPEPTIDASE 343 U/L (5-85)
--- NOTE | 2019-03-14 07:12 | NUR ---
NURSE NOTES: Report received from ESHA Rodriguez. Patient AOx4. In RA. Denies any pain or SOB. PICC line dressing intact. Changed position and made comfortable in bed. Done with breakfast. Bed on lowest position, side rails upx2, brakes engaged, alarm on. Seizure precautions in place. Call light within reach.
[2019-03-14 07:35] LABS: ALANINE AMINOTRANSFERASE 29 U/L (12-78); ALBUMIN 1.5 G/DL (3.4-5.0); ALBUMIN/GLOBULIN RATIO 0.3 (1.0-2.7); ALKALINE PHOSPHATASE 186 U/L (46-116); ANION GAP 9 mmol/L (5-15); ASPARTATE AMINO TRANSFERASE 48 U/L (15-37); BILIRUBIN,TOTAL 3.2 MG/DL (0.2-1.0); BLOOD UREA NITROGEN 26 mg/dL (7-18); CALCIUM 7.7 MG/DL (8.5-10.1); CARBON DIOXIDE 23 MMOL/L (21-32); CHLORIDE 103 MMOL/L (98-107); CREATININE 1.9 MG/DL (0.55-1.30); SODIUM 135 MMOL/L (136-145)
--- NOTE | 2019-03-14 07:35 | NUR ---
HAND-OFF: Report given to Jennifer ESTRADA RN. PATIENT RESTING IN BED, NO SIGNS OF DISTRESS NOTED.
[2019-03-14 08:00] VITALS: BP 110/67
--- NOTE | 2019-03-14 09:12 | Urology Progress Note ---
Assessment/Plan Status: unchanged Assessment/Plan: 1. Gross hematuria history, improved. 2. Urinary retention. 3. Probable neurogenic bladder. 4. Urinary tract infection history. 5. Sepsis history. 6. STEFANI. monitor clinically delgado out and voiding abx as ordered monitor renal flomax 0.8 mg Subjective Allergies: Coded Allergies: No Known Allergies (Unverified , 02/10/15) Subjective all noted, voiding Objective Last 24 Hour Vital Signs Date Time Temp Pulse Resp B/P (MAP) Pulse Ox O2 Delivery O2 Flow Rate FiO2 03/14/19 08:00 97.7 116 18 110/67 (81) 97 03/14/19 04:00 104 03/14/19 04:00 97.3 105 19 96/58 (71) 97 03/14/19 00:00 107 03/14/19 00:00 97.4 93 18 115/76 (89) 98 03/13/19 21:00 Room Air Room Air 03/13/19 20:00 109 03/13/19 20:00 97.3 110 19 110/74 (86) 98 03/13/19 16:00 105 03/13/19 16:00 97.9 106 18 116/74 (88) 99 03/13/19 12:00 97.1 105 20 109/77 (88) 95 03/13/19 12:00 112 Intake and Output 03/13/19 03/14/19 19:00 07:00 Intake Total 810 ml 560 ml Output Total 450 ml 650 ml Balance 360 ml -90 ml Intake Oral 810 ml 360 ml IV Total 200 ml Output Urine Total 450 ml 650 ml # Bowel Movements 1 2 Microbiology Date/Time Source Procedure Growth Status 03/08/19 18:15 Blood Blood Culture - Final NO GROWTH AFTER 5 DAYS Complete 03/05/19 12:30 Body Fluid Gram Stain - Final Complete 03/05/19 12:30 Body Fluid Body Fluid Culture - Final NO GROWTH Complete 02/27/19 15:00 Sputum Expectorated Pneumocystis jiroveci Smear (DFA) - Final Complete 02/22/19 23:55 Stool Clostridium difficile Toxin Assay - Final Complete 03/08/19 21:20 Indwelling Cath Urine Culture - Final NO GROWTH AFTER 48 HOURS Complete Current Medications Medications (Trade) Dose Ordered Sig/Tonny Route PRN Reason Start Time Stop Time Status Last Admin Dose Admin Ceftriaxone Sodium 1 gm/ Dextrose 50 ml @ 100 mls/hr Q24H IVPB 03/08/19 18:00 03/15/19 17:59 03/13/19 17:27 Chlorhexidine Gluconate (Stephanie-Hex 2%) 1 applic DAILY@2000 TOPIC 03/04/19 20:00 04/03/19 19:59 03/13/19 20:41 Dextrose (Dextrose 50%) 25 ml Q30M PRN IV Hypoglycemia 03/02/19 17:45 03/16/19 16:14 Dextrose (Dextrose 50%) 50 ml Q30M PRN IV Hypoglycemia 03/02/19 17:45 03/16/19 16:14 Lactobacillus Acidophilus (Culturelle) 1 tab EVERY 12 HOURS ORAL 03/02/19 21:00 03/26/19 17:59 03/13/19 20:41 Lactulose (Cephulac) 10 gm THREE TIMES A DAY ORAL 03/02/19 18:00 04/01/19 12:59 03/13/19 17:26 Lansoprazole (Prevacid) 30 mg EVERY 12 HOURS ORAL 03/13/19 10:30 04/12/19 10:29 03/13/19 20:42 Levetiracetam (Keppra) 500 mg Q12HR ORAL 03/03/19 21:00 04/02/19 20:59 03/13/19 20:42 Metronidazole 100 ml @ 100 mls/hr Q8HR IVPB 03/13/19 22:00 03/15/19 23:00 03/14/19 05:22 Ondansetron HCl (Zofran) 4 mg Q6H PRN IVP Nausea & Vomiting 03/02/19 18:30 03/16/19 18:29 Rifaximin (Xifaxan) 550 mg EVERY 12 HOURS ORAL 03/02/19 21:00 03/15/19 23:00 03/13/19 20:42 Tamsulosin HCl (Flomax) 0.8 mg BEDTIME ORAL 03/05/19 21:30 04/04/19 21:29 03/13/19 20:42 Thiamine HCl (Vitamin B1) 100 mg DAILY ORAL 03/07/19 09:00 03/27/19 08:59 03/13/19 09:23 Laboratory Tests 03/13/19 10:20: White Blood Count 20.1H, Red Blood Count 2.55L, Hemoglobin 8.0L, Hematocrit 24.9L, Mean Corpuscular Volume 98, Mean Corpuscular Hemoglobin 31.5H, Mean Corpuscular Hemoglobin Concent 32.2, Red Cell Distribution Width 16.2H, Platelet Count 160, Mean Platelet Volume 6.9, Neutrophils (%) (Auto) , Lymphocytes (%) (Auto) , Monocytes (%) (Auto) , Eosinophils (%) (Auto) , Basophils (%) (Auto) , Differential Total Cells Counted 100, Neutrophils % ( Manual) 78H, Lymphocytes % (Manual) 9L, Monocytes % (Manual) 7, Eosinophils % ( Manual) 4H, Basophils % (Manual) 2, Band Neutrophils 0, Platelet Estimate Adequate, Platelet Morphology Normal, Hypochromasia 2+, Anisocytosis 1+, Sodium Level 133L, Potassium Level 4.9, Chloride Level 101, Carbon Dioxide Level 25, Anion Gap 7, Blood Urea Nitrogen 22H, Creatinine 1.8H, Estimat Glomerular Filtration Rate 47.8, Glucose Level 135H, Calcium Level 8.0L 03/14/19 04:00: White Blood Count 16.3H, Red Blood Count 2.32L, Hemoglobin 7.3L, Hematocrit 22.8L, Mean Corpuscular Volume 98, Mean Corpuscular Hemoglobin 31.5H, Mean Corpuscular Hemoglobin Concent 32.0, Red Cell Distribution Width 15.2H, Platelet Count 156, Mean Platelet Volume 6.7, Neutrophils (%) (Auto) , Lymphocytes (%) (Auto) , Monocytes (%) (Auto) , Eosinophils (%) (Auto) , Basophils (%) (Auto) , Differential Total Cells Counted 100, Neutrophils % ( Manual) 82H, Lymphocytes % (Manual) 7L, Monocytes % (Manual) 7, Eosinophils % ( Manual) 4H, Basophils % (Manual) 0, Band Neutrophils 0, Platelet Estimate Adequate, Platelet Morphology Normal, Hypochromasia 1+, Anisocytosis 1+, Sodium Level 135L, Potassium Level 5.0, Chloride Level 103, Carbon Dioxide Level 23, Anion Gap 9, Blood Urea Nitrogen 26H, Creatinine 1.9H, Estimat Glomerular Filtration Rate 44.8, Glucose Level 111H, Calcium Level 7.7L, Uric Acid 4.6, Phosphorus Level 4.0, Magnesium Level 1.3L, Iron Level 55, Total Iron Binding Capacity 63L, Percent Iron Saturation 87H, Unsaturated Iron Binding 8L, Ferritin 396H, Total Bilirubin 3.2H, Direct Bilirubin 0.0, Gamma Glutamyl Transpeptidase 343H, Aspartate Amino Transf (AST/SGOT) 48H, Alanine Aminotransferase (ALT/SGPT) 29, Alkaline Phosphatase 186H, C-Reactive Protein, Quantitative 2.6H, Pro-B-Type Natriuretic Peptide 245H, Total Protein 6.2L, Albumin 1.5L, Globulin 4.7, Albumin/Globulin Ratio 0.3L, Vitamin B12 Level > 2000H, Folate 16.0 Height (Feet): 5 Height (Inches): 5.00 Weight (Pounds): 165 Objective exam stable Jeremy Matta MD Mar 14, 2019 09:11
[2019-03-14] MEDS: Thiamine 100mg tab ORAL SCH (09:39)
[2019-03-14] MEDS: Lactobacillus-GG tablet ORAL SCH ×2 (09:39→21:42)
[2019-03-14] MEDS: Lactulose 10gm/15ml UDC ORAL SCH ×3 (09:40→17:44)
--- NOTE | 2019-03-14 10:35 | GI Progress Note ---
Assessment/Plan Problems: (1) Coffee ground emesis ICD Codes: K92.0 - Hematemesis SNOMED: 59452124 (2) Episode of confusion ICD Codes: R41.0 - Disorientation, unspecified SNOMED: 61458922 (3) Gastrointestinal bleed ICD Codes: K92.2 - Gastrointestinal hemorrhage, unspecified SNOMED: 45646374 (4) Abnormal LFTs ICD Codes: R94.5 - Abnormal results of liver function studies SNOMED: 528394644 (5) Diarrhea ICD Codes: R19.7 - Diarrhea, unspecified SNOMED: 54873804 (6) Electrolyte and fluid disorder ICD Codes: E87.8 - Other disorders of electrolyte and fluid balance, not elsewhere classified SNOMED: 73244669 (7) Sepsis ICD Codes: A41.9 - Sepsis, unspecified organism SNOMED: 77196796 Status: unchanged Status Narrative Discussed with Dr. Bloom. Assessment/Plan SUMMARY OF FINDINGS: 1. Medium-sized hiatal hernia. 2. Portal hypertensive gastropathy, status post biopsy. US reviewed >> liver disease/cirrhosis with ascites Assessment - Resp failure - diarrhea - UGIB abnormal LFT, negative hepatitis serologies, s/p U/S x 2 (no biliary dilation), downtrending - cirrhosis and sepsis/hypoperfusion - h/o EtOH, possible early cirrhosis EBV IGM elevation Check HSV IgM, negative Hepatitis Panel negative OB stool r/o GI bleed - positive Negative for H. Pylori. CMV negative RECOMMENDATIONS: No evidence of any active GI bleeding at this time. consider colonoscopy if needed. paracentesis, r/o SBP hold venofer given elevated ferritin levels low dose lactulose + Xifaxan PT evaluation prn transfusions follow labs The patient was seen and examined at bedside and all new and available data was reviewed in the patients chart. I agree with the above findings, impression and plan. (Patient seen earlier today. Signature stamp does not reflect patient encounter time.). - Jones Bloom MD Subjective Gastrointestinal/Abdominal: Reports: abdomen distended Objective Last 24 Hour Vital Signs Date Time Temp Pulse Resp B/P (MAP) Pulse Ox O2 Delivery O2 Flow Rate FiO2 03/14/19 08:00 116 03/14/19 08:00 97.7 116 18 110/67 (81) 97 03/14/19 04:00 104 03/14/19 04:00 97.3 105 19 96/58 (71) 97 03/14/19 00:00 107 03/14/19 00:00 97.4 93 18 115/76 (89) 98 03/13/19 21:00 Room Air Room Air 03/13/19 20:00 109 03/13/19 20:00 97.3 110 19 110/74 (86) 98 03/13/19 16:00 105 03/13/19 16:00 97.9 106 18 116/74 (88) 99 03/13/19 12:00 97.1 105 20 109/77 (88) 95 03/13/19 12:00 112 Intake and Output 03/13/19 03/14/19 19:00 07:00 Intake Total 810 ml 560 ml Output Total 450 ml 650 ml Balance 360 ml -90 ml Intake Oral 810 ml 360 ml IV Total 200 ml Output Urine Total 450 ml 650 ml # Bowel Movements 1 2 Laboratory Tests Test 03/14/19 04:00 White Blood Count 16.3 K/UL (4.8-10.8) H Red Blood Count 2.32 M/UL (4.70-6.10) L Hemoglobin 7.3 G/DL (14.2-18.0) L Hematocrit 22.8 % (42.0-52.0) L Mean Corpuscular Volume 98 FL (80-99) Mean Corpuscular Hemoglobin 31.5 PG (27.0-31.0) H Mean Corpuscular Hemoglobin Concent 32.0 G/DL (32.0-36.0) Red Cell Distribution Width 15.2 % (11.6-14.8) H Platelet Count 156 K/UL (150-450) Mean Platelet Volume 6.7 FL (6.5-10.1) Neutrophils (%) (Auto) % (45.0-75.0) Lymphocytes (%) (Auto) % (20.0-45.0) Monocytes (%) (Auto) % (1.0-10.0) Eosinophils (%) (Auto) % (0.0-3.0) Basophils (%) (Auto) % (0.0-2.0) Differential Total Cells Counted 100 Neutrophils % (Manual) 82 % (45-75) H Lymphocytes % (Manual) 7 % (20-45) L Monocytes % (Manual) 7 % (1-10) Eosinophils % (Manual) 4 % (0-3) H Basophils % (Manual) 0 % (0-2) Band Neutrophils 0 % (0-8) Platelet Estimate Adequate Platelet Morphology Normal Hypochromasia 1+ Anisocytosis 1+ Sodium Level 135 MMOL/L (136-145) L Potassium Level 5.0 MMOL/L (3.5-5.1) Chloride Level 103 MMOL/L (98-107) Carbon Dioxide Level 23 MMOL/L (21-32) Anion Gap 9 mmol/L (5-15) Blood Urea Nitrogen 26 mg/dL (7-18) H Creatinine 1.9 MG/DL (0.55-1.30) H Estimat Glomerular Filtration Rate 44.8 mL/min (>60) Glucose Level 111 MG/DL (74-106) H Uric Acid 4.6 MG/DL (2.6-7.2) Calcium Level 7.7 MG/DL (8.5-10.1) L Phosphorus Level 4.0 MG/DL (2.5-4.9) Magnesium Level 1.3 MG/DL (1.8-2.4) L Iron Level 55 ug/dL (50-175) Total Iron Binding Capacity 63 ug/dL (250-450) L Percent Iron Saturation 87 % (15-50) H Unsaturated Iron Binding 8 ug/dL (112-346) L Ferritin 396 NG/ML (8-388) H Total Bilirubin 3.2 MG/DL (0.2-1.0) H Direct Bilirubin 0.0 MG/DL (0.0-0.3) Gamma Glutamyl Transpeptidase 343 U/L (5-85) H Aspartate Amino Transf (AST/SGOT) 48 U/L (15-37) H Alanine Aminotransferase (ALT/SGPT) 29 U/L (12-78) Alkaline Phosphatase 186 U/L (46-116) H C-Reactive Protein, Quantitative 2.6 mg/dL (0.00-0.90) H Pro-B-Type Natriuretic Peptide 245 pg/mL (0-125) H Total Protein 6.2 G/DL (6.4-8.2) L Albumin 1.5 G/DL (3.4-5.0) L Globulin 4.7 g/dL Albumin/Globulin Ratio 0.3 (1.0-2.7) L Vitamin B12 Level > 2000 PG/ML (193-986) H Folate 16.0 NG/ML (8.6-58.9) Height (Feet): 5 Height (Inches): 5.00 Weight (Pounds): 165 General Appearance: WD/WN, no apparent distress, alert Cardiovascular: normal rate Respiratory/Chest: normal breath sounds, no respiratory distress Abdominal Exam: normal bowel sounds, non tender, soft Extremities: normal range of motion, non-tender Juno Naranjo NP Mar 14, 2019 10:35
--- NOTE | 2019-03-14 10:39 | Nephrology Progress Note ---
Assessment/Plan Problem List: (1) STEFANI (acute kidney injury) (2) Septic shock (3) Electrolyte and fluid disorder (4) Abnormal LFTs Assessment: fatty liver (5) Hyperbilirubinemia Assessment - STEFANI (acute kidney injury) - Septic shock - Lactic acid acidosis - Abnormal LFTs - Gastrointestinal bleed - Alcohol withdrawal seizure Plan mag IV as needed 3% saline as needed PRN Albumin bolus for low bp Midodrine post extubation care Pressors / Fluids as needed Aim to correct the electrolyte and acid base imbalance monitor renal parameters gastric support switch dilantin to keppra as LFTs rising per orders Subjective ROS Limited/Unobtainable: No Constitutional: Reports: malaise, weakness Objective Objective Last 24 Hour Vital Signs Date Time Temp Pulse Resp B/P (MAP) Pulse Ox O2 Delivery O2 Flow Rate FiO2 03/14/19 09:00 Room Air Room Air 03/14/19 08:00 116 03/14/19 08:00 97.7 116 18 110/67 (81) 97 03/14/19 04:00 104 03/14/19 04:00 97.3 105 19 96/58 (71) 97 03/14/19 00:00 107 03/14/19 00:00 97.4 93 18 115/76 (89) 98 03/13/19 21:00 Room Air Room Air 03/13/19 20:00 109 03/13/19 20:00 97.3 110 19 110/74 (86) 98 03/13/19 16:00 105 03/13/19 16:00 97.9 106 18 116/74 (88) 99 03/13/19 12:00 97.1 105 20 109/77 (88) 95 03/13/19 12:00 112 Intake and Output 03/13/19 03/14/19 19:00 07:00 Intake Total 810 ml 560 ml Output Total 450 ml 650 ml Balance 360 ml -90 ml Intake Oral 810 ml 360 ml IV Total 200 ml Output Urine Total 450 ml 650 ml # Bowel Movements 1 2 Laboratory Tests 03/14/19 04:00: White Blood Count 16.3H, Red Blood Count 2.32L, Hemoglobin 7.3L, Hematocrit 22.8L, Mean Corpuscular Volume 98, Mean Corpuscular Hemoglobin 31.5H, Mean Corpuscular Hemoglobin Concent 32.0, Red Cell Distribution Width 15.2H, Platelet Count 156, Mean Platelet Volume 6.7, Neutrophils (%) (Auto) , Lymphocytes (%) (Auto) , Monocytes (%) (Auto) , Eosinophils (%) (Auto) , Basophils (%) (Auto) , Differential Total Cells Counted 100, Neutrophils % ( Manual) 82H, Lymphocytes % (Manual) 7L, Monocytes % (Manual) 7, Eosinophils % ( Manual) 4H, Basophils % (Manual) 0, Band Neutrophils 0, Platelet Estimate Adequate, Platelet Morphology Normal, Hypochromasia 1+, Anisocytosis 1+, Sodium Level 135L, Potassium Level 5.0, Chloride Level 103, Carbon Dioxide Level 23, Anion Gap 9, Blood Urea Nitrogen 26H, Creatinine 1.9H, Estimat Glomerular Filtration Rate 44.8, Glucose Level 111H, Uric Acid 4.6, Calcium Level 7.7L, Phosphorus Level 4.0, Magnesium Level 1.3L, Iron Level 55, Total Iron Binding Capacity 63L, Percent Iron Saturation 87H, Unsaturated Iron Binding 8L, Ferritin 396H, Total Bilirubin 3.2H, Direct Bilirubin 0.0, Gamma Glutamyl Transpeptidase 343H, Aspartate Amino Transf (AST/SGOT) 48H, Alanine Aminotransferase (ALT/SGPT) 29, Alkaline Phosphatase 186H, C-Reactive Protein, Quantitative 2.6H, Pro-B-Type Natriuretic Peptide 245H, Total Protein 6.2L, Albumin 1.5L, Globulin 4.7, Albumin/Globulin Ratio 0.3L, Vitamin B12 Level > 2000H, Folate 16.0 Height (Feet): 5 Height (Inches): 5.00 Weight (Pounds): 165 General Appearance: no apparent distress Cardiovascular: tachycardia Respiratory/Chest: decreased breath sounds Abdomen: soft Objective no change Scotty Bailon MD Mar 14, 2019 10:39
--- NOTE | 2019-03-14 10:45 | NUR ---
NURSE NOTES: BP supine 108/64 HR 90, Sitting 100/55 HR 105, Standing 80/36 HR 120.
--- NOTE | 2019-03-14 11:00 | NUR ---
NURSE NOTES: Communicated ortostatic vitals with Dr. Hughes. Pt to be on Midodrine 3x daily.
--- NOTE | 2019-03-14 11:16 | Cardiac Electrophysiology PN ---
Assessment/Plan Assessment/Plan 1. Sinus tachycardia up to 170s. No myocardial infarction . Due to sepsis, anemia and alcohol withdrawal. EF 60%. In SR now in 90s 2. S/P Septic shock and E Coli bacteremia, on 3 broad-spectrum IV antibiotics. S/P Indium scan but no abnormalities identified. FU Dr Negrete 3. Troponin leak. Type 2. No CP 4. S/P Respiratory failure. Self extubated S/P Bronchoscopy and removal of mucus plug 5. ETOH withdrawal 6. Seizures with noncompliance. 7. Upper gi bleed. S/P EGD 8. Hematuria, resolved 9. Coffee ground emesis. EGD showed Medium-sized hiatal hernia and Portal hypertensive gastropathy 10. Liver cirrhosis with ascites. Billirubin down [address] Goldberg S/P Paracentesis 4 liters on 03/04/19. On Lactulose S/P Paracentesis 3 liters 03/15/19 Another paracentesis pending today DW RN Subjective Subjective In SR in NAD. Had 3 liter Paracentesis on 03/09/19.NPO for another paracentesis today Objective Last 24 Hour Vital Signs Date Time Temp Pulse Resp B/P (MAP) Pulse Ox O2 Delivery O2 Flow Rate FiO2 03/14/19 09:00 Room Air Room Air 03/14/19 08:00 116 03/14/19 08:00 97.7 116 18 110/67 (81) 97 03/14/19 04:00 104 03/14/19 04:00 97.3 105 19 96/58 (71) 97 03/14/19 00:00 107 03/14/19 00:00 97.4 93 18 115/76 (89) 98 03/13/19 21:00 Room Air Room Air 03/13/19 20:00 109 03/13/19 20:00 97.3 110 19 110/74 (86) 98 03/13/19 16:00 105 03/13/19 16:00 97.9 106 18 116/74 (88) 99 03/13/19 12:00 97.1 105 20 109/77 (88) 95 03/13/19 12:00 112 Intake and Output 03/13/19 03/14/19 19:00 07:00 Intake Total 810 ml 560 ml Output Total 450 ml 650 ml Balance 360 ml -90 ml Intake Oral 810 ml 360 ml IV Total 200 ml Output Urine Total 450 ml 650 ml # Bowel Movements 1 2 Laboratory Tests Test 03/14/19 04:00 White Blood Count 16.3 K/UL (4.8-10.8) H Red Blood Count 2.32 M/UL (4.70-6.10) L Hemoglobin 7.3 G/DL (14.2-18.0) L Hematocrit 22.8 % (42.0-52.0) L Mean Corpuscular Volume 98 FL (80-99) Mean Corpuscular Hemoglobin 31.5 PG (27.0-31.0) H Mean Corpuscular Hemoglobin Concent 32.0 G/DL (32.0-36.0) Red Cell Distribution Width 15.2 % (11.6-14.8) H Platelet Count 156 K/UL (150-450) Mean Platelet Volume 6.7 FL (6.5-10.1) Neutrophils (%) (Auto) % (45.0-75.0) Lymphocytes (%) (Auto) % (20.0-45.0) Monocytes (%) (Auto) % (1.0-10.0) Eosinophils (%) (Auto) % (0.0-3.0) Basophils (%) (Auto) % (0.0-2.0) Differential Total Cells Counted 100 Neutrophils % (Manual) 82 % (45-75) H Lymphocytes % (Manual) 7 % (20-45) L Monocytes % (Manual) 7 % (1-10) Eosinophils % (Manual) 4 % (0-3) H Basophils % (Manual) 0 % (0-2) Band Neutrophils 0 % (0-8) Platelet Estimate Adequate Platelet Morphology Normal Hypochromasia 1+ Anisocytosis 1+ Sodium Level 135 MMOL/L (136-145) L Potassium Level 5.0 MMOL/L (3.5-5.1) Chloride Level 103 MMOL/L (98-107) Carbon Dioxide Level 23 MMOL/L (21-32) Anion Gap 9 mmol/L (5-15) Blood Urea Nitrogen 26 mg/dL (7-18) H Creatinine 1.9 MG/DL (0.55-1.30) H Estimat Glomerular Filtration Rate 44.8 mL/min (>60) Glucose Level 111 MG/DL (74-106) H Uric Acid 4.6 MG/DL (2.6-7.2) Calcium Level 7.7 MG/DL (8.5-10.1) L Phosphorus Level 4.0 MG/DL (2.5-4.9) Magnesium Level 1.3 MG/DL (1.8-2.4) L Iron Level 55 ug/dL (50-175) Total Iron Binding Capacity 63 ug/dL (250-450) L Percent Iron Saturation 87 % (15-50) H Unsaturated Iron Binding 8 ug/dL (112-346) L Ferritin 396 NG/ML (8-388) H Total Bilirubin 3.2 MG/DL (0.2-1.0) H Direct Bilirubin 0.0 MG/DL (0.0-0.3) Gamma Glutamyl Transpeptidase 343 U/L (5-85) H Aspartate Amino Transf (AST/SGOT) 48 U/L (15-37) H Alanine Aminotransferase (ALT/SGPT) 29 U/L (12-78) Alkaline Phosphatase 186 U/L (46-116) H C-Reactive Protein, Quantitative 2.6 mg/dL (0.00-0.90) H Pro-B-Type Natriuretic Peptide 245 pg/mL (0-125) H Total Protein 6.2 G/DL (6.4-8.2) L Albumin 1.5 G/DL (3.4-5.0) L Globulin 4.7 g/dL Albumin/Globulin Ratio 0.3 (1.0-2.7) L Vitamin B12 Level > 2000 PG/ML (193-986) H Folate 16.0 NG/ML (8.6-58.9) Objective HEAD AND NECK: No JV. Icteric sclera LUNGS: Decreased breath sounds. CARDIOVASCULAR: Regular S1 and S2 with no gallop or murmur. ABDOMEN: Soft with ascites EXTREMITIES: 1 plus pitting edema. Fidencio Trveino MD Mar 14, 2019 11:16
--- NOTE | 2019-03-14 11:57 | Surgery Progress Note ---
Surgery Progress Note Subjective Procedure Performed \ Additional Comments abd fluid filled again repeat para ordered labs improved Objective Last 24 Hour Vital Signs Date Time Temp Pulse Resp B/P (MAP) Pulse Ox O2 Delivery O2 Flow Rate FiO2 03/14/19 09:00 Room Air Room Air 03/14/19 08:00 116 03/14/19 08:00 97.7 116 18 110/67 (81) 97 03/14/19 04:00 104 03/14/19 04:00 97.3 105 19 96/58 (71) 97 03/14/19 00:00 107 03/14/19 00:00 97.4 93 18 115/76 (89) 98 03/13/19 21:00 Room Air Room Air 03/13/19 20:00 109 03/13/19 20:00 97.3 110 19 110/74 (86) 98 03/13/19 16:00 105 03/13/19 16:00 97.9 106 18 116/74 (88) 99 03/13/19 12:00 97.1 105 20 109/77 (88) 95 03/13/19 12:00 112 I&O Intake and Output 03/13/19 03/14/19 19:00 07:00 Intake Total 810 ml 560 ml Output Total 450 ml 650 ml Balance 360 ml -90 ml Intake Oral 810 ml 360 ml IV Total 200 ml Output Urine Total 450 ml 650 ml # Bowel Movements 1 2 Cardiovascular: RSR Respiratory: clear Abdomen: soft, distended, non-tender, present bowel sounds Extremities: no tenderness, no cyanosis Laboratory Tests Test 03/14/19 04:00 White Blood Count 16.3 K/UL (4.8-10.8) H Red Blood Count 2.32 M/UL (4.70-6.10) L Hemoglobin 7.3 G/DL (14.2-18.0) L Hematocrit 22.8 % (42.0-52.0) L Mean Corpuscular Volume 98 FL (80-99) Mean Corpuscular Hemoglobin 31.5 PG (27.0-31.0) H Mean Corpuscular Hemoglobin Concent 32.0 G/DL (32.0-36.0) Red Cell Distribution Width 15.2 % (11.6-14.8) H Platelet Count 156 K/UL (150-450) Mean Platelet Volume 6.7 FL (6.5-10.1) Neutrophils (%) (Auto) % (45.0-75.0) Lymphocytes (%) (Auto) % (20.0-45.0) Monocytes (%) (Auto) % (1.0-10.0) Eosinophils (%) (Auto) % (0.0-3.0) Basophils (%) (Auto) % (0.0-2.0) Differential Total Cells Counted 100 Neutrophils % (Manual) 82 % (45-75) H Lymphocytes % (Manual) 7 % (20-45) L Monocytes % (Manual) 7 % (1-10) Eosinophils % (Manual) 4 % (0-3) H Basophils % (Manual) 0 % (0-2) Band Neutrophils 0 % (0-8) Platelet Estimate Adequate Platelet Morphology Normal Hypochromasia 1+ Anisocytosis 1+ Sodium Level 135 MMOL/L (136-145) L Potassium Level 5.0 MMOL/L (3.5-5.1) Chloride Level 103 MMOL/L (98-107) Carbon Dioxide Level 23 MMOL/L (21-32) Anion Gap 9 mmol/L (5-15) Blood Urea Nitrogen 26 mg/dL (7-18) H Creatinine 1.9 MG/DL (0.55-1.30) H Estimat Glomerular Filtration Rate 44.8 mL/min (>60) Glucose Level 111 MG/DL (74-106) H Uric Acid 4.6 MG/DL (2.6-7.2) Calcium Level 7.7 MG/DL (8.5-10.1) L Phosphorus Level 4.0 MG/DL (2.5-4.9) Magnesium Level 1.3 MG/DL (1.8-2.4) L Iron Level 55 ug/dL (50-175) Total Iron Binding Capacity 63 ug/dL (250-450) L Percent Iron Saturation 87 % (15-50) H Unsaturated Iron Binding 8 ug/dL (112-346) L Ferritin 396 NG/ML (8-388) H Total Bilirubin 3.2 MG/DL (0.2-1.0) H Direct Bilirubin 0.0 MG/DL (0.0-0.3) Gamma Glutamyl Transpeptidase 343 U/L (5-85) H Aspartate Amino Transf (AST/SGOT) 48 U/L (15-37) H Alanine Aminotransferase (ALT/SGPT) 29 U/L (12-78) Alkaline Phosphatase 186 U/L (46-116) H C-Reactive Protein, Quantitative 2.6 mg/dL (0.00-0.90) H Pro-B-Type Natriuretic Peptide 245 pg/mL (0-125) H Total Protein 6.2 G/DL (6.4-8.2) L Albumin 1.5 G/DL (3.4-5.0) L Globulin 4.7 g/dL Albumin/Globulin Ratio 0.3 (1.0-2.7) L Vitamin B12 Level > 2000 PG/ML (193-986) H Folate 16.0 NG/ML (8.6-58.9) Plan Problems: (1) Non-compliance Assessment & Plan: Noncompliance with seizure medication with known history of seizures Now had seizure Appreciate neurology input (2) Electrolyte and fluid disorder Assessment & Plan: Likely due to EtOH use and dehydration IV hydration Trend labs (3) Fever (4) Oral thrush (5) Diarrhea (6) Aspiration pneumonia (7) Seizure disorder (8) Tachycardia (9) Altered mental status (10) Alcohol withdrawal seizure (11) Alcohol withdrawal seizure (12) Episode of confusion (13) Coffee ground emesis (14) Gastrointestinal bleed Assessment & Plan: Patient on admission identified to have maroon-colored stool and coffee-ground emesis. Labs noted mild anemia with H&H trending down. No acute active bleed noted but given patient's history high risk for potential ulcers. PPI Appreciate GI input considerations for EGD once stable No evidence of pulmonary embolus, aortic dissection or aneurysm. Posterior basilar consolidation suspicious for pneumonia. Correlate clinically. Trace bilateral pleural effusions. Possible enterocolitis as described above. Please correlate clinically. Mild ascites Fatty liver Cholelithiasis with wall thickening. Cholecystitis not excluded. Small right inguinal hernia containing fat Extensive breathing motion artifact limiting evaluation. We will follow with recommendations thank you (15) Sinus tachycardia (16) Septic shock (17) Sepsis Assessment & Plan: Patient septic leukocytosis improved today lactic acidosis resolved anemia renal function declining electrolyte disturbance US noted picc out transition to oral meds extubated doing well US noted again. liver decompensated HIDA noted and likely cirrhosis delgado AM labs reordered s/p para micro negative repeat paracentesis soon (18) Lactic acid acidosis (19) STEFANI (acute kidney injury) (20) Abnormal LFTs (21) High anion gap metabolic acidosis Juanpablo Marcus Mar 14, 2019 11:57
[2019-03-14 12:00] VITALS: BP 111/74
--- NOTE | 2019-03-14 12:10 | NUR ---
NURSE NOTES: BP communicated with Dr. Iglesias.
[2019-03-14] MEDS: Midodrine 10mg tab ORAL SCH ×2 (12:26→17:44)
--- NOTE | 2019-03-14 13:22 | General Progress Note ---
Assessment/Plan Status: unchanged Assessment/Plan: 54 year old male with pMH of seizure disorder and etoh abuse admitted for seizures 2/2 non-compliance # Transaminitis- improving - f/u HIDA : non obstructive, findings c/w intracellular damage - ctm - appreciate GI and Sx input - us shows nodularity and chronic disease - hep panel negative - ggt increased - f/u GI - h/o EtOH, possible early cirrhosis EBV IGM elevation Check HSV IgM, negative Hepatitis Panel negative Follow up path of EGD noted with portal hypertensive gastropathy. Negative for H. Pylori. - paracentesis prn # Iron deficiency anemia - venofer 03/14- - b12, folate - check fobt - tx <7 # Leukocytosis - h/o follow - ID following - wbc scan negative but limited study - wbc improving # Hemoptysis- resolved - s/p bronch - monitor hgb #severe septic shock likely 2/2 UTI- resolved #Gram negative bacteremia, now resolved by surveillance follow up blood culture (last 02/20) - s/p treatment #Acute respiratory failure requiting intubation, s/p extubation -s/p Vanc and Zosyn - gentamicin - s/p Fluconazole per ID - CBC serial. - CT 02/18 with atelectasis primarily - Diuresis started and good response -ID consult appreciated - Immunoglobulin and hepatitis panel negative. -cont ICU care - Reviewed CT chest/abd/pel #Lactic acidosis -2/2 severe shock/ poss abd source/ seizures - 2 D Echo on 02/16 with EF 65%. Discussed with cardiology and etiology likely sepsis and not cardiogenic -CTM -Fluid boluses completed. -Cont mIVF #Coagulopathy # Thrombocytopenia - 40,000 stable Monitor. No active bleeding - Hematology consult with Dr. Johnston appreciated. Flow cytometry pending. -likely 2/2 hepatic injury 2/2 shock - Consumption coagulopathy. - Consider platelet transfusion if LESS than 30K with urine blood tinge color. #Coffee ground emesis likely in setting of GI bleed- resolved -H/H trending down. Monitor -GI consult appreciated - s/p egd as above, reviewed: gastritis -surgery consult appreciated #Seizures 2/2 noncomplaint with AED- controlled -s/p phenytoin load in ED -Cont Phenytoin -Neurology consult appreciated -pending EEG - no seizures noted in last 24 hours -Ativan PRN for seizures -NPO -Seizure precautions #Hypokalemia - Replete as needed #hypophosphatemia - Repleted. #Hypomagnesemia -repleted -CTM # Urethral hemorrhage and clot evacuation - Discussed with Dr. Matta over the phone and bleeding stopped spontaneously, No formal urology consult for now in place. - If recurrent hemorrhage will address. - H/H and INR stat today. - Consider PRBC and Platelets if Hb < 8 or Plt < 30 K # Urinary retention PVR > 300 cc WILKINSON replaced 02/[address] ( in case of repeat hemorrhage ) D/w RN Code: Full Subjective Allergies: Coded Allergies: No Known Allergies (Unverified , 02/10/15) Subjective patient is alert para centesis today removed 3L TREY Objective Last 24 Hour Vital Signs Date Time Temp Pulse Resp B/P (MAP) Pulse Ox O2 Delivery O2 Flow Rate FiO2 03/14/19 12:00 96.7 112 20 111/74 (86) 98 03/14/19 09:00 Room Air Room Air 03/14/19 08:00 116 03/14/19 08:00 97.7 116 18 110/67 (81) 97 03/14/19 04:00 104 03/14/19 04:00 97.3 105 19 96/58 (71) 97 03/14/19 00:00 107 03/14/19 00:00 97.4 93 18 115/76 (89) 98 03/13/19 21:00 Room Air Room Air 03/13/19 20:00 109 03/13/19 20:00 97.3 110 19 110/74 (86) 98 03/13/19 16:00 105 03/13/19 16:00 97.9 106 18 116/74 (88) 99 Intake and Output 03/13/19 03/14/19 19:00 07:00 Intake Total 810 ml 560 ml Output Total 450 ml 650 ml Balance 360 ml -90 ml Intake Oral 810 ml 360 ml IV Total 200 ml Output Urine Total 450 ml 650 ml # Bowel Movements 1 2 Laboratory Tests 03/14/19 04:00: White Blood Count 16.3H, Red Blood Count 2.32L, Hemoglobin 7.3L, Hematocrit 22.8L, Mean Corpuscular Volume 98, Mean Corpuscular Hemoglobin 31.5H, Mean Corpuscular Hemoglobin Concent 32.0, Red Cell Distribution Width 15.2H, Platelet Count 156, Mean Platelet Volume 6.7, Neutrophils (%) (Auto) , Lymphocytes (%) (Auto) , Monocytes (%) (Auto) , Eosinophils (%) (Auto) , Basophils (%) (Auto) , Differential Total Cells Counted 100, Neutrophils % ( Manual) 82H, Lymphocytes % (Manual) 7L, Monocytes % (Manual) 7, Eosinophils % ( Manual) 4H, Basophils % (Manual) 0, Band Neutrophils 0, Platelet Estimate Adequate, Platelet Morphology Normal, Hypochromasia 1+, Anisocytosis 1+, Sodium Level 135L, Potassium Level 5.0, Chloride Level 103, Carbon Dioxide Level 23, Anion Gap 9, Blood Urea Nitrogen 26H, Creatinine 1.9H, Estimat Glomerular Filtration Rate 44.8, Glucose Level 111H, Uric Acid 4.6, Calcium Level 7.7L, Phosphorus Level 4.0, Magnesium Level 1.3L, Iron Level 55, Total Iron Binding Capacity 63L, Percent Iron Saturation 87H, Unsaturated Iron Binding 8L, Ferritin 396H, Total Bilirubin 3.2H, Direct Bilirubin 0.0, Gamma Glutamyl Transpeptidase 343H, Aspartate Amino Transf (AST/SGOT) 48H, Alanine Aminotransferase (ALT/SGPT) 29, Alkaline Phosphatase 186H, C-Reactive Protein, Quantitative 2.6H, Pro-B-Type Natriuretic Peptide 245H, Total Protein 6.2L, Albumin 1.5L, Globulin 4.7, Albumin/Globulin Ratio 0.3L, Vitamin B12 Level > 2000H, Folate 16.0 Height (Feet): 5 Height (Inches): 5.00 Weight (Pounds): 165 Heather Iglesias DO Mar 14, 2019 13:22
--- NOTE | 2019-03-14 14:12 | NUR ---
P.T WEEKLY PROGRESS NOTES: PATIENT DEMONSTRATED SLOW PROGRESS DURING THE COURSE OF THERAPY SESSION. PROGRESS IS LIMITED BY DECREASED FOOD INTAKE, POOR ACTIVITY TOLERANCE ATTRIBUTED TO DIZZINESS SECONDARY TO ORTHOSTATIC HYPOTENSION LIMITING PARTICIPATION. PATIENT CURRENTLY REQUIRE MIN A X 1 FOR BED MOBILITIES, MIN/MOD A X 1 FOR TRANSFERS DEPENDING ON ENDURANCE LEVEL. PATIENT AMBULATES AND TOLERATES 4-8 STEPS WITH FWW , MOD A X 1. PATIENT IS HIGHLY MOTIVATED IN ACHIEVING GOALS TO RETURN HIS PLOF. WILL CONTINUE WITH POC WITH PROGRESSION OF ACTIVITIES. RECOMMEND SNF FOR FURTHER REHAB WHEN MEDICALLY STABLE.
--- NOTE | 2019-03-14 15:00 | NUR ---
NURSE NOTES: Report given (Tricia), paracentesis removed 3.65L.
--- NOTE | 2019-03-14 15:53 | Infectious Diseases Prog Note ---
Assessment/Plan Assessment/Plan ASSESSMENT AND PLAN: 1. sepsis, shock, e.coli bacteremia/uti, gram neg sepsis, pna/HCAP, ct noted, sirs, fevers, fungemia risk, ascites, s/p paracentesis, ? sbp, elevated lft's, persistent leukocytosis - rocephin and flagyl x 5 days - leukocytosis better - if wbc less than or equal to 15 then consider discharge - surveillance cultures negative, indium scan negative - off vent , off pressors, clinically improving - monitor labs - picc line (03/05/19) 2. History of seizures. Workup per Neurology. 3. Acute kidney injury, likely secondary to sepsis. 4. The patient is anemic. 5. Severe sepsis with leukocytosis. 6. History of ETOH abuse. 7. No known allergies. 8. Family history is noncontributory. 9. MAR was noted. 10. Case was discussed with RN. 11. Social history is positive for ETOH abuse. 12. Poor prognosis. Subjective Constitutional: Denies: fever HEENT: Denies: dysphagia Respiratory: Denies: shortness of breath Cardiovascular: Denies: chest pain Gastrointestinal/Abdominal: Denies: nausea, vomiting, diarrhea Genitourinary: Denies: dysuria, hematuria Neurologic: Reports: other - alert and responsive Psychiatric: Denies: depression Skin: Denies: rash Hematologic: Denies: bleeding Musculoskeletal: Denies: pain Allergies: Coded Allergies: No Known Allergies (Unverified , 02/10/15) Objective Vital Signs Last 24 Hour Vital Signs Date Time Temp Pulse Resp B/P (MAP) Pulse Ox O2 Delivery O2 Flow Rate FiO2 03/14/19 12:00 109 03/14/19 12:00 96.7 112 20 111/74 (86) 98 03/14/19 09:00 Room Air Room Air 03/14/19 08:00 116 03/14/19 08:00 97.7 116 18 110/67 (81) 97 03/14/19 04:00 104 03/14/19 04:00 97.3 105 19 96/58 (71) 97 03/14/19 00:00 107 03/14/19 00:00 97.4 93 18 115/76 (89) 98 03/13/19 21:00 Room Air Room Air 03/13/19 20:00 109 03/13/19 20:00 97.3 110 19 110/74 (86) 98 03/13/19 16:00 105 03/13/19 16:00 97.9 106 18 116/74 (88) 99 Height (Feet): 5 Height (Inches): 5.00 Weight (Pounds): 165 General Appearance: no acute distress HEENT: normocephalic, atraumatic, anicteric, mucous membranes moist Respiratory/Chest: lungs clear, normal breath sounds, no respiratory distress, no accessory muscle use Cardiovascular: normal rate, regular rhythm, no gallop/murmur, no JVD Abdomen: normal bowel sounds, soft, non tender, no organomegaly, distended Genitourinary: other - + delgado - urine clear Extremities: no cyanosis Skin: no rash 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 Posterior basilar consolidation suspicious for pneumonia. Correlate clinically. Trace bilateral pleural effusions. Possible enterocolitis as described above. Please correlate clinically. Mild ascites Fatty liver Cholelithiasis with wall thickening. Cholecystitis not excluded. Small right inguinal hernia containing fat Extensive breathing motion artifact limiting evaluation. Chest x-ray - 03/05/19 - Comparison: 02/27/2019 Findings: Interim removal of endotracheal and nasogastric tubes. There is some atelectasis at both lung bases. There is likely some pleural fluid and possibly some consolidation at the left lung base. The heart size is normal the aorta is tortuous. There is a calcification at the inferior aspect of the left shoulder joint. Impression: Bilateral basilar atelectasis. Possible left-sided pleural fluid and consolidation Interim endotracheal and nasogastric extubation CT abdomen and pelvis - 03/09/19 - CT ABDOMEN + PELVIS Without Contrast: Comparison: 02/17/19 Evaluation limited by the absence of IV contrast enhancement. Patchy nodular consolidation in both lung bases consistent with pneumonia. Small adjacent bilateral pleural effusions left greater than right. Follow-up to complete radiographic resolution is required to exclude neoplasm. Small hiatal hernia. Enteric contrast within the distal esophagus secondary to recent administration are gastro-esophageal reflux. Mild scalloping of the hepatic contour is consistent with cirrhosis. No interval change and nodular thickening bilateral adrenal glands. Cholelithiasis without evidence of biliary ductal dilatation. Significant increase in ascites in the abdomen and pelvis that is now a large amount. Nonspecific gastric wall prominence, recommend endoscopy for further evaluation. The lower GI tract demonstrates no obstruction or pneumatosis. There is mild wall thickening distal right colon extending just distal to the hepatic flexure that is nonspecific can be seen with focal colitis as well as sequela from portal hypertension and cirrhosis. Moderate liquid stool in the distal rectosigmoid colon partially obscuring wall thickness. Diffuse saniya mesentery. Negative for loculated fluid collections. Bladder wall thickening with reticulation is nonspecific and can be seen with chronic outlet obstruction. Cystoscopy can provide more definitive evaluation. Negative for pneumoperitoneum. 03/09/19 - chest x-ray - no change, report noted Indium scan: Findings: . Full body images cannot be obtained due to camera malfunction. Spot images of the chest abdomen, head and neck show no abnormal uptake. Impression: Somewhat limited evaluation but no abnormalities identified. Microbiology Date/Time Source Procedure Growth Status 03/08/19 18:15 Blood Blood Culture - Final NO GROWTH AFTER 5 DAYS Complete 03/05/19 12:30 Body Fluid Gram Stain - Final Complete 03/05/19 12:30 Body Fluid Body Fluid Culture - Final NO GROWTH Complete 02/27/19 15:00 Sputum Expectorated Pneumocystis jiroveci Smear (DFA) - Final Complete 02/22/19 23:55 Stool Clostridium difficile Toxin Assay - Final Complete 03/08/19 21:20 Indwelling Cath Urine Culture - Final NO GROWTH AFTER 48 HOURS Complete Laboratory Tests Test 03/14/19 04:00 White Blood Count 16.3 K/UL (4.8-10.8) H Red Blood Count 2.32 M/UL (4.70-6.10) L Hemoglobin 7.3 G/DL (14.2-18.0) L Hematocrit 22.8 % (42.0-52.0) L Mean Corpuscular Volume 98 FL (80-99) Mean Corpuscular Hemoglobin 31.5 PG (27.0-31.0) H Mean Corpuscular Hemoglobin Concent 32.0 G/DL (32.0-36.0) Red Cell Distribution Width 15.2 % (11.6-14.8) H Platelet Count 156 K/UL (150-450) Mean Platelet Volume 6.7 FL (6.5-10.1) Neutrophils (%) (Auto) % (45.0-75.0) Lymphocytes (%) (Auto) % (20.0-45.0) Monocytes (%) (Auto) % (1.0-10.0) Eosinophils (%) (Auto) % (0.0-3.0) Basophils (%) (Auto) % (0.0-2.0) Differential Total Cells Counted 100 Neutrophils % (Manual) 82 % (45-75) H Lymphocytes % (Manual) 7 % (20-45) L Monocytes % (Manual) 7 % (1-10) Eosinophils % (Manual) 4 % (0-3) H Basophils % (Manual) 0 % (0-2) Band Neutrophils 0 % (0-8) Platelet Estimate Adequate Platelet Morphology Normal Hypochromasia 1+ Anisocytosis 1+ Sodium Level 135 MMOL/L (136-145) L Potassium Level 5.0 MMOL/L (3.5-5.1) Chloride Level 103 MMOL/L (98-107) Carbon Dioxide Level 23 MMOL/L (21-32) Anion Gap 9 mmol/L (5-15) Blood Urea Nitrogen 26 mg/dL (7-18) H Creatinine 1.9 MG/DL (0.55-1.30) H Estimat Glomerular Filtration Rate 44.8 mL/min (>60) Glucose Level 111 MG/DL (74-106) H Uric Acid 4.6 MG/DL (2.6-7.2) Calcium Level 7.7 MG/DL (8.5-10.1) L Phosphorus Level 4.0 MG/DL (2.5-4.9) Magnesium Level 1.3 MG/DL (1.8-2.4) L Iron Level 55 ug/dL (50-175) Total Iron Binding Capacity 63 ug/dL (250-450) L Percent Iron Saturation 87 % (15-50) H Unsaturated Iron Binding 8 ug/dL (112-346) L Ferritin 396 NG/ML (8-388) H Total Bilirubin 3.2 MG/DL (0.2-1.0) H Direct Bilirubin 0.0 MG/DL (0.0-0.3) Gamma Glutamyl Transpeptidase 343 U/L (5-85) H Aspartate Amino Transf (AST/SGOT) 48 U/L (15-37) H Alanine Aminotransferase (ALT/SGPT) 29 U/L (12-78) Alkaline Phosphatase 186 U/L (46-116) H C-Reactive Protein, Quantitative 2.6 mg/dL (0.00-0.90) H Pro-B-Type Natriuretic Peptide 245 pg/mL (0-125) H Total Protein 6.2 G/DL (6.4-8.2) L Albumin 1.5 G/DL (3.4-5.0) L Globulin 4.7 g/dL Albumin/Globulin Ratio 0.3 (1.0-2.7) L Vitamin B12 Level > 2000 PG/ML (193-986) H Folate 16.0 NG/ML (8.6-58.9) Current Medications Medications (Trade) Dose Ordered Sig/Tonny Route PRN Reason Start Time Stop Time Status Last Admin Dose Admin Ceftriaxone Sodium 1 gm/ Dextrose 50 ml @ 100 mls/hr Q24H IVPB 03/08/19 18:00 03/15/19 17:59 03/13/19 17:27 Chlorhexidine Gluconate (Stephanie-Hex 2%) 1 applic DAILY@2000 TOPIC 03/04/19 20:00 04/03/19 19:59 03/13/19 20:41 Dextrose (Dextrose 50%) 25 ml Q30M PRN IV Hypoglycemia 03/02/19 17:45 03/16/19 16:14 Dextrose (Dextrose 50%) 50 ml Q30M PRN IV Hypoglycemia 03/02/19 17:45 03/16/19 16:14 Iron Sucrose 100 mg/Sodium Chloride 60 ml @ 240 mls/hr BEDTIME IV 03/14/19 21:00 03/18/19 21:14 Lactobacillus Acidophilus (Culturelle) 1 tab EVERY 12 HOURS ORAL 03/02/19 21:00 03/26/19 17:59 03/14/19 09:39 Lactulose (Cephulac) 10 gm THREE TIMES A DAY ORAL 03/02/19 18:00 04/01/19 12:59 03/14/19 12:26 Lansoprazole (Prevacid) 30 mg EVERY 12 HOURS ORAL 03/13/19 10:30 04/12/19 10:29 03/14/19 09:40 Levetiracetam (Keppra) 500 mg Q12HR ORAL 03/03/19 21:00 04/02/19 20:59 03/14/19 09:39 Metronidazole 100 ml @ 100 mls/hr Q8HR IVPB 03/13/19 22:00 03/15/19 23:00 03/14/19 15:33 Midodrine (Pro-Amatine) 5 mg THREE TIMES A DAY ORAL 03/14/19 13:00 04/13/19 12:59 03/14/19 12:26 Ondansetron HCl (Zofran) 4 mg Q6H PRN IVP Nausea & Vomiting 03/02/19 18:30 03/16/19 18:29 Rifaximin (Xifaxan) 550 mg EVERY 12 HOURS ORAL 03/02/19 21:00 03/15/19 23:00 03/14/19 09:40 Sodium Chloride 250 ml @ 30 mls/hr ONCE ONCE IV 03/14/19 11:30 03/14/19 19:49 03/14/19 11:32 Tamsulosin HCl (Flomax) 0.8 mg BEDTIME ORAL 03/05/19 21:30 04/04/19 21:29 03/13/19 20:42 Thiamine HCl (Vitamin B1) 100 mg DAILY ORAL 03/07/19 09:00 03/27/19 08:59 03/14/19 09:39 Barry Plummer MD Mar 14, 2019 15:53
[2019-03-14 16:00] VITALS: BP 110/72
--- NOTE | 2019-03-14 16:00 | NUR ---
NURSE NOTES: Paracentesis site checked. Dressing noted with serosanguineous fluid.
--- NOTE | 2019-03-14 16:20 | NUR ---
*-* INSURANCE *-* UPDATED CLINICAL HAVE BEEN FAXED TO: VANESSA WATTERSM: ANTWON P- [phone] [phone]..............REVIEW/CLINICAL
--- NOTE | 2019-03-14 17:01 | Hematology/Onc Progress Note ---
Assessment/Plan Assessment/Plan # Bicytopenia with anemia likely due to liver cirrhosis and hronic etoh use -- stool occult blood +, also with etoh withdrawal, also can be related to meds/abx , Hida shows Limited hepatic uptake and excretion, probably due to hepatocellular disease. Note that previous imaging studies suggest the presence of cirrhotic changes. Also there is potential component of active infection of causing bicytopenia --> anemia panel has been reviewed and results are acd --> continue on folate 1mg po daily (LOW FOLATE) --> Flow cytometry shows no evidence of b-lymphoproliferative disorder --> Hep panel negative --> thoracentesis cytology negative for malignant cells --> plt trend 300k-->170k-->138k-->130k-->126k-->148k-->160k # Anemia of chronic disease, per anemia panel --> hgb trend 8-->7-->8-->9-->8.6-->7.7-->7.9-->8.3-->7.9->8.5-->9-->10-->9.9--> 7.7-->9.4-->8.9-->8.7-->8.5-->8.2-->7.3 --> peripheral smear reviewed and not noted to have blasts --> may require gi eval when more stable with scope (EGD) --> transfuse if hgb <7 --> cont folic acid and thiamine tabs # Leukocytosis due to Septic shock and severe Lactic acidosis on Levophed and broad-spectrum IV antibiotics. --> per ID care, continue abx --> pressor as needed --> flagyl, cefepime, carmen--> NOW flagyl, ceftriaxone --> wbc trend: 34.9 -->28k-->35k-->17k-->20.7-->22k-->24k-->22k-->20k-->20k # Coagulopathy with a history of liver disease/cirrhosis (HX OF ETOH abuse) with portal htn --> no evidence of gi bleed at this time --> vit K to be given sq on prn basis --> gi on board # Sinus tachycardia up to 170s. No evidence of acute mi --> This is likely due to sepsis and anemia, alcohol withdrawal --> Echo Nl EF 60% # Troponin leak, type 2 --> per cards # Respiratory failure on the vent, now off --> now extubated --> 02/27 the bronchoscope was advanced into both mainstem bronchi and subsegmental bronchi. There was increased secretions b/l, mucopurulent including mucus plugging of the right upper lobe, which was therapeutically aspirated. BAL specimen was sent. --> on nc prn # Transaminitis with elev bilis --> as per gi with ast/alt high --> monitor for resolution of sepsis # ETOH withdrawal --> recommend etoh cessation # Seizures with noncompliance --> per neuro # Abd ascites due to liver disease --> para prn The timing of this note does not necessarily reflect the time of the patient was seen. GREATLY APPRECIATE CONSULTATION. Subjective Gastrointestinal/Abdominal: Denies: no symptoms, abdomen distended, abdominal pain, black stools, tarry stools, blood in stool, constipated, diarrhea, difficulty swallowing, nausea, poor appetite, poor fluid intake, rectal bleeding , vomiting, other Genitourinary: Denies: no symptoms, burning, discharge, frequency, flank pain, hematuria, incontinence, pain, urgency, other Neurologic/Psychiatric: Denies: no symptoms, anxiety, depressed, emotional problems, headache, numbness, paresthesia, pre-existing deficit, seizure, tingling, tremors, weakness, other Endocrine: Denies: no symptoms, excessive sweating, flushing, intolerance to cold, intolerance to heat, increased hunger, increased thirst, increased urine, unexplained weight gain, unexplained weight loss, other Hematologic/Lymphatic: Denies: no symptoms, anemia, easy bleeding, easy bruising, adenopathy, other Allergies: Coded Allergies: No Known Allergies (Unverified , 02/10/15) Subjective 02/20: intubated, counts are better, on vent, sbt in process, no f/c, mag low 02/21: endoscopy on hold at this time, bloody stool, plt better, on abx 02/22: no events reported, remains intubated, no bleeding, plt better, k is low, repleted\ 02/23: remains in icu, letargic, flow cytometry showed no evidence of b- lymphoproliferative disorder, c-diif negative, labs reviewed, remains on levo 02/24: in icu, on vent, wbc at 32, id made aware. 02/25: icu, weaning off of vent, labs reviewed, continues on abx 02/26: no fc, no changes reported, wbc high, ongoing hida scan 02/27: no events, bronch to be done today, results pending 02/28: no f/c, restraints++, ogt was inserted 03/01: s/p extubation, self-extubated, otherwise on abx, off pressors 03/02: no events too report, labs have been reviewed, off abx, remains agitated 03/03 no fevers or chills, no changes, breathing better, less altered 03/05: no events, no bleeding, hgb 7.7, on RA only, sating well 03/06: hgb is low, otherwise without event, slightly improved, as per gi transaminitis, bilis are better 03/07: no overnight events, still jaundiced, delgado removed, h/h stable, thoracentesis cytology negative for malignant cells 03/08: patient is asleep, delgado draining well to gravity, no f/c, no major changes , seen by uro 03/09: gross hematuria has improved, seen by uro, no f/c 03/11: is resting in bed, is comfortable, remains relatively unchanged, remains on abx 03/12: no major hematuria noted, in bed, comfortable, labs reviewed, hgb 8.2 03/13: no events to report, no f/c, no major changes, seen by gi 03/14: remains off vent, wbc improved, hgb is lower, para for today Objective Objective Current Medications Medications (Trade) Dose Ordered Sig/Tonny Route PRN Reason Start Time Stop Time Status Last Admin Dose Admin Ceftriaxone Sodium 1 gm/ Dextrose 50 ml @ 100 mls/hr Q24H IVPB 03/14/19 18:00 03/21/19 17:59 Chlorhexidine Gluconate (Stephanie-Hex 2%) 1 applic DAILY@1999 TOPIC 03/04/19 20:00 04/03/19 19:59 03/13/19 20:41 Dextrose (Dextrose 50%) 25 ml Q30M PRN IV Hypoglycemia 03/02/19 17:45 03/16/19 16:14 Dextrose (Dextrose 50%) 50 ml Q30M PRN IV Hypoglycemia 03/02/19 17:45 03/16/19 16:14 Iron Sucrose 100 mg/Sodium Chloride 60 ml @ 240 mls/hr BEDTIME IV 03/14/19 21:00 03/18/19 21:14 Lactobacillus Acidophilus (Culturelle) 1 tab EVERY 12 HOURS ORAL 03/02/19 21:00 03/26/19 17:59 03/14/19 09:39 Lactulose (Cephulac) 10 gm THREE TIMES A DAY ORAL 03/02/19 18:00 04/01/19 12:59 03/14/19 12:26 Lansoprazole (Prevacid) 30 mg EVERY 12 HOURS ORAL 03/13/19 10:30 04/12/19 10:29 03/14/19 09:40 Levetiracetam (Keppra) 500 mg Q12HR ORAL 03/03/19 21:00 04/02/19 20:59 03/14/19 09:39 Metronidazole (Flagyl) 500 mg Q8HR ORAL 03/14/19 22:00 03/21/19 21:59 Midodrine (Pro-Amatine) 5 mg THREE TIMES A DAY ORAL 03/14/19 13:00 04/13/19 12:59 03/14/19 12:26 Ondansetron HCl (Zofran) 4 mg Q6H PRN IVP Nausea & Vomiting 03/02/19 18:30 03/16/19 18:29 Rifaximin (Xifaxan) 550 mg EVERY 12 HOURS ORAL 03/02/19 21:00 03/15/19 23:00 03/14/19 09:40 Sodium Chloride 250 ml @ 30 mls/hr ONCE ONCE IV 03/14/19 11:30 03/14/19 19:49 03/14/19 11:32 Tamsulosin HCl (Flomax) 0.8 mg BEDTIME ORAL 03/05/19 21:30 04/04/19 21:29 03/13/19 20:42 Thiamine HCl (Vitamin B1) 100 mg DAILY ORAL 03/07/19 09:00 03/27/19 08:59 03/14/19 09:39 Last 24 Hour Vital Signs Date Time Temp Pulse Resp B/P (MAP) Pulse Ox O2 Delivery O2 Flow Rate FiO2 03/14/19 12:00 109 03/14/19 12:00 96.7 112 20 111/74 (86) 98 03/14/19 09:00 Room Air Room Air 03/14/19 08:00 116 03/14/19 08:00 97.7 116 18 110/67 (81) 97 03/14/19 04:00 104 03/14/19 04:00 97.3 105 19 96/58 (71) 97 03/14/19 00:00 107 03/14/19 00:00 97.4 93 18 115/76 (89) 98 03/13/19 21:00 Room Air Room Air 03/13/19 20:00 109 03/13/19 20:00 97.3 110 19 110/74 (86) 98 03/13/19 16:00 105 03/13/19 16:00 97.9 106 18 116/74 (88) 99 03/13/19 12:00 97.1 105 20 109/77 (88) 95 03/13/19 12:00 112 03/13/19 09:00 Room Air Room Air 03/13/19 08:00 115 03/13/19 08:00 96.6 91 18 118/75 (89) 95 03/13/19 04:00 97.4 92 19 113/69 (84) 98 03/13/19 04:00 104 03/13/19 00:00 114 03/12/19 20:59 Room Air Room Air 03/12/19 20:00 97.4 101 20 98/61 (73) 99 03/12/19 20:00 104 Intake and Output 03/13/19 03/14/19 18:59 06:59 Intake Total 810 ml 560 ml Output Total 450 ml 650 ml Balance 360 ml -90 ml Intake Oral 810 ml 360 ml IV Total 200 ml Output Urine Total 450 ml 650 ml # Bowel Movements 1 2 Labs Test 03/12/19 06:00 03/13/19 10:20 03/14/19 04:00 White Blood Count 20.1 K/UL (4.8-10.8) 20.1 K/UL (4.8-10.8) 16.3 K/UL (4.8-10.8) Red Blood Count 2.58 M/UL (4.70-6.10) 2.55 M/UL (4.70-6.10) 2.32 M/UL (4.70-6.10) Hemoglobin 8.2 G/DL (14.2-18.0) 8.0 G/DL (14.2-18.0) 7.3 G/DL (14.2-18.0) Hematocrit 25.4 % (42.0-52.0) 24.9 % (42.0-52.0) 22.8 % (42.0-52.0) Mean Corpuscular Volume 98 FL (80-99) 98 FL (80-99) 98 FL (80-99) Mean Corpuscular Hemoglobin 31.6 PG (27.0-31.0) 31.5 PG (27.0-31.0) 31.5 PG (27.0-31.0) Mean Corpuscular Hemoglobin Concent 32.2 G/DL (32.0-36.0) 32.2 G/DL (32.0-36.0) 32.0 G/DL (32.0-36.0) Red Cell Distribution Width 15.3 % (11.6-14.8) 16.2 % (11.6-14.8) 15.2 % (11.6-14.8) Platelet Count 148 K/UL (150-450) 160 K/UL (150-450) 156 K/UL (150-450) Mean Platelet Volume 7.6 FL (6.5-10.1) 6.9 FL (6.5-10.1) 6.7 FL (6.5-10.1) Neutrophils (%) (Auto) % (45.0-75.0) % (45.0-75.0) % (45.0-75.0) Lymphocytes (%) (Auto) % (20.0-45.0) % (20.0-45.0) % (20.0-45.0) Monocytes (%) (Auto) % (1.0-10.0) % (1.0-10.0) % (1.0-10.0) Eosinophils (%) (Auto) % (0.0-3.0) % (0.0-3.0) % (0.0-3.0) Basophils (%) (Auto) % (0.0-2.0) % (0.0-2.0) % (0.0-2.0) Differential Total Cells Counted 100 100 100 Neutrophils % (Manual) 76 % (45-75) 78 % (45-75) 82 % (45-75) Lymphocytes % (Manual) 9 % (20-45) 9 % (20-45) 7 % (20-45) Monocytes % (Manual) 12 % (1-10) 7 % (1-10) 7 % (1-10) Eosinophils % (Manual) 3 % (0-3) 4 % (0-3) 4 % (0-3) Basophils % (Manual) 0 % (0-2) 2 % (0-2) 0 % (0-2) Band Neutrophils 0 % (0-8) 0 % (0-8) 0 % (0-8) Platelet Estimate Decreased Adequate Adequate Platelet Morphology Normal Normal Normal Hypochromasia 1+ 2+ 1+ Anisocytosis 1+ 1+ 1+ Sodium Level 133 MMOL/L (136-145) 133 MMOL/L (136-145) 135 MMOL/L (136-145) Potassium Level 5.0 MMOL/L (3.5-5.1) 4.9 MMOL/L (3.5-5.1) 5.0 MMOL/L (3.5-5.1) Chloride Level 103 MMOL/L (98-107) 101 MMOL/L (98-107) 103 MMOL/L (98-107) Carbon Dioxide Level 25 MMOL/L (21-32) 25 MMOL/L (21-32) 23 MMOL/L (21-32) Anion Gap 5 mmol/L (5-15) 7 mmol/L (5-15) 9 mmol/L (5-15) Blood Urea Nitrogen 22 mg/dL (7-18) 22 mg/dL (7-18) 26 mg/dL (7-18) Creatinine 1.7 MG/DL (0.55-1.30) 1.8 MG/DL (0.55-1.30) 1.9 MG/DL (0.55-1.30) Estimat Glomerular Filtration Rate 51.0 mL/min (>60) 47.8 mL/min (>60) 44.8 mL/min (>60) Glucose Level 106 MG/DL (74-106) 135 MG/DL (74-106) 111 MG/DL (74-106) Calcium Level 8.1 MG/DL (8.5-10.1) 8.0 MG/DL (8.5-10.1) 7.7 MG/DL (8.5-10.1) Total Bilirubin 3.7 MG/DL (0.2-1.0) 3.2 MG/DL (0.2-1.0) Direct Bilirubin 3.1 MG/DL (0.0-0.3) 0.0 MG/DL (0.0-0.3) Aspartate Amino Transf (AST/SGOT) 55 U/L (15-37) 48 U/L (15-37) Alanine Aminotransferase (ALT/SGPT) 21 U/L (12-78) 29 U/L (12-78) Alkaline Phosphatase 186 U/L (46-116) 186 U/L (46-116) Total Protein 6.8 G/DL (6.4-8.2) 6.2 G/DL (6.4-8.2) Albumin 1.4 G/DL (3.4-5.0) 1.5 G/DL (3.4-5.0) Globulin 5.4 g/dL 4.7 g/dL Albumin/Globulin Ratio 0.3 (1.0-2.7) 0.3 (1.0-2.7) Uric Acid 4.6 MG/DL (2.6-7.2) Phosphorus Level 4.0 MG/DL (2.5-4.9) Magnesium Level 1.3 MG/DL (1.8-2.4) Iron Level 55 ug/dL (50-175) Total Iron Binding Capacity 63 ug/dL (250-450) Percent Iron Saturation 87 % (15-50) Unsaturated Iron Binding 8 ug/dL (112-346) Ferritin 396 NG/ML (8-388) Gamma Glutamyl Transpeptidase 343 U/L (5-85) C-Reactive Protein, Quantitative 2.6 mg/dL (0.00-0.90) Pro-B-Type Natriuretic Peptide 245 pg/mL (0-125) Vitamin B12 Level > 2000 PG/ML (193-986) Folate 16.0 NG/ML (8.6-58.9) Height (Feet): 5 Height (Inches): 5.00 Weight (Pounds): 165 Objective Gen: NAD Heent: atraumatic Lungs: clear, ++RA sating 95% Heart: HR/BP unstable Abdomen: soft, non-tender, active bowel sounds Extremities: no cce, L femoral cath+, bilateral wrist restraints are off Robert Johnston MD Mar 14, 2019 17:01
[2019-03-14] MEDS ORDERED: cefTRIAXone 1 GM in D5W 50 ML IVPB SCH (18:00)
--- NOTE | 2019-03-14 19:30 | NUR ---
NURSE NOTES: JOSIE Cadena, aware of paracentesis fluid.
--- NOTE | 2019-03-14 19:40 | NUR ---
HAND-OFF: Report given to Maxin. Pt in stable condition. Dressing intact.
[2019-03-14 20:00] VITALS: BP 99/63
--- NOTE | 2019-03-14 20:04 | NUR ---
NURSE NOTES: Report received from Brittany BALBUENA. Patient is observed in bed, awake, alert, oriented, and able to make needs known. Respiratory even and unlabored. DANIELLE PICC is asymptomatic, patent, and intact. IVF is running at a prescribed rate. Bed is in lowest position with side rails up x2 and brakes are engaged. Bed alarm is on. Encouraged patient to use call light when in need of assistance; pt verbalized understanding. Will continue to monitor.
[2019-03-14] MEDS ORDERED: Iron Sucrose 100 MG in NS 55 ML IV SCH (21:00)
[2019-03-14] MEDS: Tamsulosin 0.4mg cap ORAL SCH (21:43)
[2019-03-14] MEDS: metroNIDAZOLE 500mg tab ORAL SCH (21:43)
[2019-03-14] MEDS: Dyna-Hex 2% Top Sol 2oz TOPIC SCH (21:45)
[2019-03-15] VITALS: BP 104/68
--- NOTE | 2019-03-15 00:23 | NUR ---
NURSE NOTES: Patient is asleep and kept clean. Patient has no s/s of acute distress. SR on the monitor. Will continue to monitor.
[2019-03-15 04:00] VITALS: BP 109/77
[2019-03-15] MEDS: metroNIDAZOLE 500mg tab ORAL SCH (05:58)
[2019-03-15 07:36] LABS: HEMATOCRIT 23.1 % (42.0-52.0); HEMOGLOBIN 7.4 G/DL (14.2-18.0); MEAN CORPUSCULAR VOLUME 99 FL (80-99); PLATELET COUNT 181 K/UL (150-450); RED BLOOD COUNT 2.33 M/UL (4.70-6.10); RED CELL DISTRIBUTION WIDTH 15.3 % (11.6-14.8); WHITE BLOOD COUNT 15.3 K/UL (4.8-10.8)
--- NOTE | 2019-03-15 07:45 | NUR ---
HAND-OFF: Report given to Mary Lou BALBUENA. Endorsed plan of care. Patient is in stable condition.
[2019-03-15 08:00] VITALS: BP 108/73
--- NOTE | 2019-03-15 08:34 | Urology Progress Note ---
Assessment/Plan Status: unchanged Assessment/Plan: 1. Gross hematuria history, improved. 2. Urinary retention. 3. Probable neurogenic bladder. 4. Urinary tract infection history. 5. Sepsis history. 6. STEFANI. monitor clinically delgado out and voiding abx as ordered monitor renal flomax 0.8 mg Subjective Allergies: Coded Allergies: No Known Allergies (Unverified , 02/10/15) Subjective all noted, voiding Objective Last 24 Hour Vital Signs Date Time Temp Pulse Resp B/P (MAP) Pulse Ox O2 Delivery O2 Flow Rate FiO2 03/15/19 04:00 97.7 92 18 109/77 (88) 97 03/15/19 03:57 90 03/15/19 00:00 97.0 99 18 104/68 (80) 97 03/14/19 23:32 96 03/14/19 20:45 Room Air Room Air 03/14/19 20:00 98.1 105 18 99/63 (75) 97 03/14/19 19:02 97 03/14/19 16:00 97.9 101 18 110/72 (85) 97 03/14/19 16:00 99 03/14/19 12:00 109 03/14/19 12:00 96.7 112 20 111/74 (86) 98 03/14/19 09:00 Room Air Room Air Intake and Output 03/14/19 03/15/19 19:00 07:00 Intake Total 500 ml Output Total 720 ml Balance 500 ml -720 ml Other 500 ml Output Urine Total 720 ml Microbiology Date/Time Source Procedure Growth Status 03/08/19 18:15 Blood Blood Culture - Final NO GROWTH AFTER 5 DAYS Complete 03/05/19 12:30 Body Fluid Gram Stain - Final Complete 03/05/19 12:30 Body Fluid Body Fluid Culture - Final NO GROWTH Complete 02/27/19 15:00 Sputum Expectorated Pneumocystis jiroveci Smear (DFA) - Final Complete 02/22/19 23:55 Stool Clostridium difficile Toxin Assay - Final Complete 03/08/19 21:20 Indwelling Cath Urine Culture - Final NO GROWTH AFTER 48 HOURS Complete Current Medications Medications (Trade) Dose Ordered Sig/Tonny Route PRN Reason Start Time Stop Time Status Last Admin Dose Admin Ceftriaxone Sodium 1 gm/ Dextrose 50 ml @ 100 mls/hr Q24H IVPB 03/14/19 18:00 03/21/19 17:59 Chlorhexidine Gluconate (Stephanie-Hex 2%) 1 applic DAILY@2000 TOPIC 03/04/19 20:00 04/03/19 19:59 03/14/19 21:45 Dextrose (Dextrose 50%) 25 ml Q30M PRN IV Hypoglycemia 03/02/19 17:45 03/16/19 16:14 Dextrose (Dextrose 50%) 50 ml Q30M PRN IV Hypoglycemia 03/02/19 17:45 03/16/19 16:14 Iron Sucrose 100 mg/Sodium Chloride 60 ml @ 240 mls/hr BEDTIME IV 03/14/19 21:00 03/18/19 21:14 03/14/19 21:45 Lactobacillus Acidophilus (Culturelle) 1 tab EVERY 12 HOURS ORAL 03/02/19 21:00 03/26/19 17:59 03/14/19 21:42 Lactulose (Cephulac) 10 gm THREE TIMES A DAY ORAL 03/02/19 18:00 04/01/19 12:59 03/14/19 17:44 Lansoprazole (Prevacid) 30 mg EVERY 12 HOURS ORAL 03/13/19 10:30 04/12/19 10:29 03/14/19 21:42 Levetiracetam (Keppra) 500 mg Q12HR ORAL 03/03/19 21:00 04/02/19 20:59 03/14/19 21:42 Metronidazole (Flagyl) 500 mg Q8HR ORAL 03/14/19 22:00 03/21/19 21:59 03/15/19 05:58 Midodrine (Pro-Amatine) 5 mg THREE TIMES A DAY ORAL 03/14/19 13:00 04/13/19 12:59 03/14/19 17:44 Ondansetron HCl (Zofran) 4 mg Q6H PRN IVP Nausea & Vomiting 03/02/19 18:30 03/16/19 18:29 Rifaximin (Xifaxan) 550 mg EVERY 12 HOURS ORAL 03/02/19 21:00 03/15/19 23:00 03/14/19 21:42 Tamsulosin HCl (Flomax) 0.8 mg BEDTIME ORAL 03/05/19 21:30 04/04/19 21:29 03/14/19 21:43 Thiamine HCl (Vitamin B1) 100 mg DAILY ORAL 03/07/19 09:00 03/27/19 08:59 03/14/19 09:39 Laboratory Tests 03/14/19 20:00: Stool Occult Blood [Pending] 03/15/19 05:30: White Blood Count 15.3H, Red Blood Count 2.33L, Hemoglobin 7.4L, Hematocrit 23.1L, Mean Corpuscular Volume 99, Mean Corpuscular Hemoglobin 31.8H, Mean Corpuscular Hemoglobin Concent 32.0, Red Cell Distribution Width 15.3H, Platelet Count 181, Mean Platelet Volume 6.5, Neutrophils (%) (Auto) , Lymphocytes (%) (Auto) , Monocytes (%) (Auto) , Eosinophils (%) (Auto) , Basophils (%) (Auto) , Neutrophils % (Manual) [Pending], Lymphocytes % (Manual) [Pending], Platelet Estimate [Pending], Platelet Morphology [Pending], Sodium Level [Pending], Potassium Level [Pending], Chloride Level [Pending], Carbon Dioxide Level [Pending], Blood Urea Nitrogen [Pending], Creatinine [Pending], Estimat Glomerular Filtration Rate [Pending], Glucose Level [Pending], Calcium Level [Pending], Total Bilirubin [Pending], Aspartate Amino Transf (AST/SGOT) [ Pending], Alanine Aminotransferase (ALT/SGPT) [Pending], Alkaline Phosphatase [ Pending], Total Protein [Pending], Albumin [Pending], Globulin [Pending] Height (Feet): 5 Height (Inches): 5.00 Weight (Pounds): 165 Objective exam stable Jeremy Matta MD Mar 15, 2019 08:34
[2019-03-15 08:44] LABS: ALANINE AMINOTRANSFERASE 25 U/L (12-78); ALBUMIN 1.5 G/DL (3.4-5.0); ALBUMIN/GLOBULIN RATIO 0.3 (1.0-2.7); ALKALINE PHOSPHATASE 178 U/L (46-116); ANION GAP 6 mmol/L (5-15); ASPARTATE AMINO TRANSFERASE 51 U/L (15-37); BILIRUBIN,TOTAL 3.1 MG/DL (0.2-1.0); BLOOD UREA NITROGEN 23 mg/dL (7-18); CALCIUM 7.9 MG/DL (8.5-10.1); CARBON DIOXIDE 25 MMOL/L (21-32); CHLORIDE 104 MMOL/L (98-107); CREATININE 1.8 MG/DL (0.55-1.30); POTASSIUM 4.6 MMOL/L (3.5-5.1); SODIUM 135 MMOL/L (136-145)
[2019-03-15 08:59] LABS: BILIRUBIN,DIRECT 2.4 MG/DL (0.0-0.3)
[2019-03-15] MEDS: Lactulose 10gm/15ml UDC ORAL SCH ×3 (09:08→17:07)
[2019-03-15] MEDS: Midodrine 10mg tab ORAL SCH ×3 (09:09→17:07)
[2019-03-15] MEDS: Thiamine 100mg tab ORAL SCH (09:09)
[2019-03-15] MEDS: Lactobacillus-GG tablet ORAL SCH (09:09)
--- NOTE | 2019-03-15 10:01 | GI Progress Note ---
Assessment/Plan Problems: (1) Coffee ground emesis ICD Codes: K92.0 - Hematemesis SNOMED: 17307949 (2) Episode of confusion ICD Codes: R41.0 - Disorientation, unspecified SNOMED: 01433590 (3) Gastrointestinal bleed ICD Codes: K92.2 - Gastrointestinal hemorrhage, unspecified SNOMED: 89616900 (4) Abnormal LFTs ICD Codes: R94.5 - Abnormal results of liver function studies SNOMED: 388864887 (5) Diarrhea ICD Codes: R19.7 - Diarrhea, unspecified SNOMED: 00119329 (6) Electrolyte and fluid disorder ICD Codes: E87.8 - Other disorders of electrolyte and fluid balance, not elsewhere classified SNOMED: 49826012 (7) Sepsis ICD Codes: A41.9 - Sepsis, unspecified organism SNOMED: 79425848 Status: unchanged Status Narrative Discussed with Dr. Bloom. Assessment/Plan SUMMARY OF FINDINGS: 1. Medium-sized hiatal hernia. 2. Portal hypertensive gastropathy, status post biopsy. US reviewed >> liver disease/cirrhosis with ascites s/p paracentesis yesterday yielding 3.7L Assessment - Resp failure - diarrhea - UGIB abnormal LFT, negative hepatitis serologies, s/p U/S x 2 (no biliary dilation), downtrending - cirrhosis and sepsis/hypoperfusion - h/o EtOH, possible early cirrhosis EBV IGM elevation Check HSV IgM, negative Hepatitis Panel negative OB stool r/o GI bleed - positive Negative for H. Pylori. CMV negative RECOMMENDATIONS: No evidence of any active GI bleeding at this time. consider colonoscopy if needed. hold venofer given elevated ferritin levels low dose lactulose + Xifaxan PT evaluation prn transfusions follow labs The patient was seen and examined at bedside and all new and available data was reviewed in the patients chart. I agree with the above findings, impression and plan. (Patient seen earlier today. Signature stamp does not reflect patient encounter time.). - Jones Bloom MD Subjective Gastrointestinal/Abdominal: Reports: no symptoms Objective Last 24 Hour Vital Signs Date Time Temp Pulse Resp B/P (MAP) Pulse Ox O2 Delivery O2 Flow Rate FiO2 03/15/19 09:42 Room Air Room Air 03/15/19 08:00 96.7 107 20 108/73 (85) 99 03/15/19 04:00 97.7 92 18 109/77 (88) 97 03/15/19 03:57 90 03/15/19 00:00 97.0 99 18 104/68 (80) 97 03/14/19 23:32 96 03/14/19 20:45 Room Air Room Air 03/14/19 20:00 98.1 105 18 99/63 (75) 97 03/14/19 19:02 97 03/14/19 16:00 97.9 101 18 110/72 (85) 97 03/14/19 16:00 99 03/14/19 12:00 109 03/14/19 12:00 96.7 112 20 111/74 (86) 98 Intake and Output 03/14/19 03/15/19 19:00 07:00 Intake Total 500 ml Output Total 720 ml Balance 500 ml -720 ml Other 500 ml Output Urine Total 720 ml Laboratory Tests Test 03/14/19 20:00 03/15/19 05:30 Stool Occult Blood Pending White Blood Count 15.3 K/UL (4.8-10.8) H Red Blood Count 2.33 M/UL (4.70-6.10) L Hemoglobin 7.4 G/DL (14.2-18.0) L Hematocrit 23.1 % (42.0-52.0) L Mean Corpuscular Volume 99 FL (80-99) Mean Corpuscular Hemoglobin 31.8 PG (27.0-31.0) H Mean Corpuscular Hemoglobin Concent 32.0 G/DL (32.0-36.0) Red Cell Distribution Width 15.3 % (11.6-14.8) H Platelet Count 181 K/UL (150-450) Mean Platelet Volume 6.5 FL (6.5-10.1) Neutrophils (%) (Auto) % (45.0-75.0) Lymphocytes (%) (Auto) % (20.0-45.0) Monocytes (%) (Auto) % (1.0-10.0) Eosinophils (%) (Auto) % (0.0-3.0) Basophils (%) (Auto) % (0.0-2.0) Neutrophils % (Manual) Pending Lymphocytes % (Manual) Pending Platelet Estimate Pending Platelet Morphology Pending Sodium Level 135 MMOL/L (136-145) L Potassium Level 4.6 MMOL/L (3.5-5.1) Chloride Level 104 MMOL/L (98-107) Carbon Dioxide Level 25 MMOL/L (21-32) Anion Gap 6 mmol/L (5-15) Blood Urea Nitrogen 23 mg/dL (7-18) H Creatinine 1.8 MG/DL (0.55-1.30) H Estimat Glomerular Filtration Rate 47.8 mL/min (>60) Glucose Level 108 MG/DL (74-106) H Calcium Level 7.9 MG/DL (8.5-10.1) L Phosphorus Level Pending Magnesium Level Pending Total Bilirubin 3.1 MG/DL (0.2-1.0) H Direct Bilirubin 2.4 MG/DL (0.0-0.3) H Aspartate Amino Transf (AST/SGOT) 51 U/L (15-37) H Alanine Aminotransferase (ALT/SGPT) 25 U/L (12-78) Alkaline Phosphatase 178 U/L (46-116) H Total Protein 6.6 G/DL (6.4-8.2) Albumin 1.5 G/DL (3.4-5.0) L Globulin 5.1 g/dL Albumin/Globulin Ratio 0.3 (1.0-2.7) L Height (Feet): 5 Height (Inches): 5.00 Weight (Pounds): 165 General Appearance: WD/WN, no apparent distress, alert Cardiovascular: normal rate Respiratory/Chest: normal breath sounds, no respiratory distress Abdominal Exam: normal bowel sounds, non tender, soft Extremities: normal range of motion, non-tender Juno Naranjo CANDY DIPPER HAND Mar 15, 2019 10:00
--- NOTE | 2019-03-15 10:01 | NUR ---
*-* INSURANCE *-* UPDATED CLINICAL HAVE BEEN FAXED TO: VANESSA WATTERSM: ANTWON P- [phone]..............REVIEW/CLINICAL
[2019-03-15 10:05] LABS: PHOSPHORUS 4.1 MG/DL (2.5-4.9)
--- NOTE | 2019-03-15 10:41 | Cardiac Electrophysiology PN ---
Assessment/Plan Assessment/Plan 1. Sinus tachycardia up to 170s. No myocardial infarction . Due to sepsis, anemia and alcohol withdrawal. EF 60%. In SR now in 90s 2. S/P Septic shock and E Coli bacteremia, on 3 broad-spectrum IV antibiotics. S/P Indium scan but no abnormalities identified. FU Dr Negrete 3. Troponin leak. Type 2. No CP 4. S/P Respiratory failure. Self extubated S/P Bronchoscopy and removal of mucus plug 5. ETOH withdrawal 6. Seizures with noncompliance. 7. Upper gi bleed. S/P EGD 8. Hematuria, resolved 9. Coffee ground emesis. EGD showed Medium-sized hiatal hernia and Portal hypertensive gastropathy 10. Liver cirrhosis with ascites. Billirubin down [address] Goldberg S/P Paracentesis 4 liters on 03/04/19. On Lactulose S/P Paracentesis 3 liters 03/09/19 S/P paracentesis 3 liters again 03/14/19 CONSTANCE RN Subjective Subjective In SR in NAD. Had 3 liter Paracentesis on 03/09/19.Had another > 3liter paracentesis yesterday Objective Last 24 Hour Vital Signs Date Time Temp Pulse Resp B/P (MAP) Pulse Ox O2 Delivery O2 Flow Rate FiO2 03/15/19 09:42 Room Air Room Air 03/15/19 08:00 96.7 107 20 108/73 (85) 99 03/15/19 04:00 97.7 92 18 109/77 (88) 97 03/15/19 03:57 90 03/15/19 00:00 97.0 99 18 104/68 (80) 97 03/14/19 23:32 96 03/14/19 20:45 Room Air Room Air 03/14/19 20:00 98.1 105 18 99/63 (75) 97 03/14/19 19:02 97 03/14/19 16:00 97.9 101 18 110/72 (85) 97 03/14/19 16:00 99 03/14/19 12:00 109 03/14/19 12:00 96.7 112 20 111/74 (86) 98 Intake and Output 03/14/19 03/15/19 19:00 07:00 Intake Total 500 ml Output Total 720 ml Balance 500 ml -720 ml Other 500 ml Output Urine Total 720 ml Laboratory Tests Test 03/14/19 20:00 03/15/19 05:30 Stool Occult Blood Pending White Blood Count 15.3 K/UL (4.8-10.8) H Red Blood Count 2.33 M/UL (4.70-6.10) L Hemoglobin 7.4 G/DL (14.2-18.0) L Hematocrit 23.1 % (42.0-52.0) L Mean Corpuscular Volume 99 FL (80-99) Mean Corpuscular Hemoglobin 31.8 PG (27.0-31.0) H Mean Corpuscular Hemoglobin Concent 32.0 G/DL (32.0-36.0) Red Cell Distribution Width 15.3 % (11.6-14.8) H Platelet Count 181 K/UL (150-450) Mean Platelet Volume 6.5 FL (6.5-10.1) Neutrophils (%) (Auto) % (45.0-75.0) Lymphocytes (%) (Auto) % (20.0-45.0) Monocytes (%) (Auto) % (1.0-10.0) Eosinophils (%) (Auto) % (0.0-3.0) Basophils (%) (Auto) % (0.0-2.0) Neutrophils % (Manual) Pending Lymphocytes % (Manual) Pending Platelet Estimate Pending Platelet Morphology Pending Sodium Level 135 MMOL/L (136-145) L Potassium Level 4.6 MMOL/L (3.5-5.1) Chloride Level 104 MMOL/L (98-107) Carbon Dioxide Level 25 MMOL/L (21-32) Anion Gap 6 mmol/L (5-15) Blood Urea Nitrogen 23 mg/dL (7-18) H Creatinine 1.8 MG/DL (0.55-1.30) H Estimat Glomerular Filtration Rate 47.8 mL/min (>60) Glucose Level 108 MG/DL (74-106) H Calcium Level 7.9 MG/DL (8.5-10.1) L Phosphorus Level 4.1 MG/DL (2.5-4.9) Magnesium Level 2.0 MG/DL (1.8-2.4) Total Bilirubin 3.1 MG/DL (0.2-1.0) H Direct Bilirubin 2.4 MG/DL (0.0-0.3) H Aspartate Amino Transf (AST/SGOT) 51 U/L (15-37) H Alanine Aminotransferase (ALT/SGPT) 25 U/L (12-78) Alkaline Phosphatase 178 U/L (46-116) H Total Protein 6.6 G/DL (6.4-8.2) Albumin 1.5 G/DL (3.4-5.0) L Globulin 5.1 g/dL Albumin/Globulin Ratio 0.3 (1.0-2.7) L Objective HEAD AND NECK: No JV. Icteric sclera LUNGS: Decreased breath sounds. CARDIOVASCULAR: Regular S1 and S2 with no gallop or murmur. ABDOMEN: Soft with ascites EXTREMITIES: 1 plus pitting edema. Fidencio Trevino MD Mar 15, 2019 10:41
--- NOTE | 2019-03-15 11:11 | Nephrology Progress Note ---
Assessment/Plan Problem List: (1) STEFANI (acute kidney injury) (2) Septic shock (3) Electrolyte and fluid disorder (4) Abnormal LFTs Assessment: fatty liver (5) Hyperbilirubinemia Assessment - Lytes improved - STEFANI (acute kidney injury) - Septic shock - Lactic acid acidosis - Abnormal LFTs - Gastrointestinal bleed - Alcohol withdrawal seizure Plan mag IV as needed 3% saline as needed PRN Albumin bolus for low bp Midodrine post extubation care Pressors / Fluids as needed Aim to correct the electrolyte and acid base imbalance monitor renal parameters gastric support switch dilantin to keppra as LFTs rising per orders Subjective ROS Limited/Unobtainable: No Objective Objective Last 24 Hour Vital Signs Date Time Temp Pulse Resp B/P (MAP) Pulse Ox O2 Delivery O2 Flow Rate FiO2 03/15/19 09:42 Room Air Room Air 03/15/19 08:00 96.7 107 20 108/73 (85) 99 03/15/19 04:00 97.7 92 18 109/77 (88) 97 03/15/19 03:57 90 03/15/19 00:00 97.0 99 18 104/68 (80) 97 03/14/19 23:32 96 03/14/19 20:45 Room Air Room Air 03/14/19 20:00 98.1 105 18 99/63 (75) 97 03/14/19 19:02 97 03/14/19 16:00 97.9 101 18 110/72 (85) 97 03/14/19 16:00 99 03/14/19 12:00 109 03/14/19 12:00 96.7 112 20 111/74 (86) 98 Intake and Output 03/14/19 03/15/19 19:00 07:00 Intake Total 500 ml Output Total 720 ml Balance 500 ml -720 ml Other 500 ml Output Urine Total 720 ml Laboratory Tests 03/14/19 20:00: Stool Occult Blood [Pending] 03/15/19 05:30: White Blood Count 15.3H, Red Blood Count 2.33L, Hemoglobin 7.4L, Hematocrit 23.1L, Mean Corpuscular Volume 99, Mean Corpuscular Hemoglobin 31.8H, Mean Corpuscular Hemoglobin Concent 32.0, Red Cell Distribution Width 15.3H, Platelet Count 181, Mean Platelet Volume 6.5, Neutrophils (%) (Auto) , Lymphocytes (%) (Auto) , Monocytes (%) (Auto) , Eosinophils (%) (Auto) , Basophils (%) (Auto) , Differential Total Cells Counted 100, Neutrophils % ( Manual) 84H, Lymphocytes % (Manual) 8L, Monocytes % (Manual) 4, Eosinophils % ( Manual) 2, Basophils % (Manual) 2, Band Neutrophils 0, Platelet Estimate Adequate, Platelet Morphology Normal, Hypochromasia 3+, Anisocytosis 1+, Sodium Level 135L, Potassium Level 4.6, Chloride Level 104, Carbon Dioxide Level 25, Anion Gap 6, Blood Urea Nitrogen 23H, Creatinine 1.8H, Estimat Glomerular Filtration Rate 47.8, Glucose Level 108H, Calcium Level 7.9L, Phosphorus Level 4.1, Magnesium Level 2.0, Total Bilirubin 3.1H, Direct Bilirubin 2.4H, Aspartate Amino Transf (AST/SGOT) 51H, Alanine Aminotransferase (ALT/SGPT) 25, Alkaline Phosphatase 178H, Total Protein 6.6, Albumin 1.5L, Globulin 5.1, Albumin/Globulin Ratio 0.3L Height (Feet): 5 Height (Inches): 5.00 Weight (Pounds): 165 General Appearance: no apparent distress Objective no change Scotty Bailon MD Mar 15, 2019 11:11
[2019-03-15 12:00] VITALS: BP 101/73
[2019-03-15] MEDS ORDERED: XIFAXAN550 MG ORAL (13:50)
[2019-03-15] MEDS ORDERED: PRO-AMATINE10 MG ORAL (13:50)
[2019-03-15] MEDS ORDERED: ZOFRAN 4 MG4 MG/2 ML IVP (13:50)
[2019-03-15] MEDS ORDERED: D50w IV (13:50)
[2019-03-15] MEDS ORDERED: LACTULOSE10 GM/155 ORAL (13:50)
[2019-03-15] MEDS ORDERED: VITAMIN B-1100 M2 ORAL (13:50)
[2019-03-15] MEDS ORDERED: FLOMAX0.4 MG ORAL (13:50)
[2019-03-15] MEDS ORDERED: FLAGYL500 MG ORAL (13:50)
[2019-03-15] MEDS ORDERED: KEPPRA500 MG ORAL (13:50)
[2019-03-15] MEDS ORDERED: LANSOPRAZOLE30 MG ORAL (13:50)
[2019-03-15] MEDS ORDERED: CULTURELLE1 EACH ORAL (13:50)
[2019-03-15] MEDS ORDERED: HIBICLENS118 ML TOPIC (13:50)
--- NOTE | 2019-03-15 13:52 | Discharge Instructions ---
Discharge Instructions Discharge Instructions Follow up with: Dr. Sen at SN[facility] Diet: 2 GM sodium (low sodium) Resume Normal Activity?: Yes Activity: as tolerated Follow Up Orders wbc and cmp daily x 3 days and then decrease as seen fit Special Instructions Follow up with Primary Care Doctor For Surgical Patients Elevate: right leg with pillow May shower: Yes Contact your physician for: bleeding, pain, redness, swelling For Congestive Heart Failure Reminder Report to your physician any weight gain of 5 pounds or more in one week. Heather Iglesias DO Mar 15, 2019 13:52
[2019-03-15] MEDS ORDERED: metroNIDAZOLE 500mg tab ORAL SCH (14:00)
--- NOTE | 2019-03-15 14:05 | Discharge Summary ---
Discharge Summary Hospital Course Date of Admission Feb 14, 2019 at 16:10 Date of Discharge 03/15/19 Admitting Diagnosis RECURRANT SEIZURES Reason for Hospitalization: hypoxic respiratory falure HPI Geovanni Brar is a 54 year old male who was admitted on Feb 14, 2019 at 16:10 for Recurrant Seizures Consultations Nephrology, Cardiology, Pulmonology, Infectious Disease, Gastroenterology, Urology, Heme/Onc, Procedures EGD, Bronchoscopy, Paracentesis Hospital Course 54 year old male with pMH of seizure disorder and etoh abuse admitted for seizures was initially intubated for hypoxic respiratory failure. He had a long course in the ICU where he was found to have liver cirrhosis likely from Etoh, unexplained leukocytosis, and anemia. He was placed on broad abx and once improved and stable after procedures above patient was downgraded to tele. Since , patient has been awake, alert, and all labs improving. ID recommends to continue Rocephin 1 gram IV daily x 5 days and Flagyl 500 mg po Q8H x 5 days. I also recommended continuation of trending CBC and CMP for continued improvement.Few labs from today: sodium 135, cr 1.8, wbc 15.3 (downtrending), AST 51. Details below: # Transaminitis- improving - f/u HIDA : non obstructive, findings c/w intracellular damage - ctm - appreciate GI and Sx input - us shows nodularity and chronic disease - hep panel negative - ggt increased - f/u GI - h/o EtOH, possible early cirrhosis EBV IGM elevation Check HSV IgM, negative Hepatitis Panel negative Follow up path of EGD noted with portal hypertensive gastropathy. Negative for H. Pylori. - paracentesis prn # Iron deficiency anemia - venofer 03/14- - b12, folate - check fobt - tx <7 # Leukocytosis - h/o follow - ID following - wbc scan negative but limited study - wbc improving # Hemoptysis- resolved - s/p bronch - monitor hgb #severe septic shock likely 2/2 UTI- resolved #Gram negative bacteremia, now resolved by surveillance follow up blood culture (last 02/20) - s/p treatment #Acute respiratory failure requiting intubation, s/p extubation -s/p Vanc and Zosyn - gentamicin - s/p Fluconazole per ID - CBC serial. - CT 02/18 with atelectasis primarily - Diuresis started and good response -ID consult appreciated - Immunoglobulin and hepatitis panel negative. -cont ICU care - Reviewed CT chest/abd/pel #Lactic acidosis -2/2 severe shock/ poss abd source/ seizures - 2 D Echo on 02/16 with EF 65%. Discussed with cardiology and etiology likely sepsis and not cardiogenic -CTM -Fluid boluses completed. -Cont mIVF #Coagulopathy # Thrombocytopenia - 40,000 stable Monitor. No active bleeding - Hematology consult with Dr. Johnston appreciated. Flow cytometry pending. -likely 2/2 hepatic injury 2/2 shock - Consumption coagulopathy. - Consider platelet transfusion if LESS than 30K with urine blood tinge color. #Coffee ground emesis likely in setting of GI bleed- resolved -H/H trending down. Monitor -GI consult appreciated - s/p egd as above, reviewed: gastritis -surgery consult appreciated #Seizures 2/2 noncomplaint with AED- controlled -s/p phenytoin load in ED -Cont Phenytoin -Neurology consult appreciated -pending EEG - no seizures noted in last 24 hours -Ativan PRN for seizures -NPO -Seizure precautions #Hypokalemia - Replete as needed #hypophosphatemia - Repleted. #Hypomagnesemia -repleted -CTM # Urethral hemorrhage and clot evacuation - Discussed with Dr. Matta over the phone and bleeding stopped spontaneously, No formal urology consult for now in place. - If recurrent hemorrhage will address. - H/H and INR stat today. - Consider PRBC and Platelets if Hb < 8 or Plt < 30 K # Urinary retention PVR > 300 cc WILKINSON replaced 02/[address] ( in case of repeat hemorrhage ) D/w RN Code: Full Discharge Medications New Medications: Chlorhexidine Gluconate* (Hibiclens*) 118 Ml Liquid 1 APPLIC TOPIC DAILY@1999 for 30 Days, #30 ML [D50w] () 50 ML SOLN 25 ML IV Q30M PRN [D50w] () 50 ML SOLN 50 ML IV Q30M PRN Lactobacillus Rhamnosus Gg* (Culturelle*) 1 Each Capsule 1 TAB ORAL EVERY 12 HOURS for 30 Days, #30 CAP Lactulose (Lactulose) 10 Gm/15 Ml Solution 10 GM ORAL THREE TIMES A DAY for 30 Days, #30 UNIT Lansoprazole* (Lansoprazole*) 30 Mg Capsule.dr 30 MG ORAL EVERY 12 HOURS for 30 Days, #30 CAP Levetiracetam (Keppra) 250 Mg Tablet 500 MG ORAL Q12HR for 30 Days, #30 TAB Metronidazole* (Flagyl*) 500 Mg Tablet 500 MG ORAL Q8HR for 30 Days, #30 TAB Midodrine (Midodrine HCl) 10 Mg Tablet 5 MG ORAL THREE TIMES A DAY for 30 Days, #30 TAB Ondansetron* (Zofran*) 4 Mg/2 Ml Vial 4 MG IVP Q6H PRN for 30 Days, #30 VIAL Rifaximin* (Xifaxan*) 550 Mg Tablet 550 MG ORAL EVERY 12 HOURS for 30 Days, #30 TAB Tamsulosin HCl (Flomax) 0.4 Mg Cap.er.24h 0.8 MG ORAL BEDTIME for 30 Days, #30 CAP Thiamine Mononitrate (Vitamin B-1) 100 Mg Tablet 100 MG ORAL DAILY for 30 Days, #30 TAB Discontinued Medications: Phenytoin Sodium Extended* (Dilantin*) 100 Mg Capsule 100 MG ORAL THREE TIMES A DAY, #90 CAP 0 Refills Discharge Condition Upon Discharge: improving, stable Discharge Disposition Patient was discharged to [facility] in [place] Discharge Diagnoses: (1) Leukocytosis (2) Abnormal LFTs (3) ATN (acute tubular necrosis) (4) Iron deficiency anemia (5) GI bleed Discharge Instructions Discharge Instructions Follow up with: Dr. Sen at [facility] Activity: as tolerated For Surgical Patients Elevate: right leg with pillow May shower: Yes Contact your physician for: bleeding, pain, redness, swelling Heather Iglesias DO Mar 15, 2019 14:05
--- NOTE | 2019-03-15 15:07 | Surgery Progress Note ---
Surgery Progress Note Subjective Procedure Performed \ Additional Comments liver function improved renal improved paracentesis with 3.5L wbc trending down h/h stable tolerating diet needs fluid restriction Objective Last 24 Hour Vital Signs Date Time Temp Pulse Resp B/P (MAP) Pulse Ox O2 Delivery O2 Flow Rate FiO2 03/15/19 09:42 Room Air Room Air 03/15/19 08:00 96.7 107 20 108/73 (85) 99 03/15/19 04:00 97.7 92 18 109/77 (88) 97 03/15/19 03:57 90 03/15/19 00:00 97.0 99 18 104/68 (80) 97 03/14/19 23:32 96 03/14/19 20:45 Room Air Room Air 03/14/19 20:00 98.1 105 18 99/63 (75) 97 03/14/19 19:02 97 03/14/19 16:00 97.9 101 18 110/72 (85) 97 03/14/19 16:00 99 I&O Intake and Output 03/14/19 03/15/19 19:00 07:00 Intake Total 500 ml Output Total 720 ml Balance 500 ml -720 ml Other 500 ml Output Urine Total 720 ml Cardiovascular: RSR Respiratory: clear Abdomen: soft, distended - fluid, non-tender, present bowel sounds Extremities: no tenderness, no cyanosis Laboratory Tests Test 03/14/19 20:00 03/15/19 05:30 Stool Occult Blood Negative (NEGATIVE) White Blood Count 15.3 K/UL (4.8-10.8) H Red Blood Count 2.33 M/UL (4.70-6.10) L Hemoglobin 7.4 G/DL (14.2-18.0) L Hematocrit 23.1 % (42.0-52.0) L Mean Corpuscular Volume 99 FL (80-99) Mean Corpuscular Hemoglobin 31.8 PG (27.0-31.0) H Mean Corpuscular Hemoglobin Concent 32.0 G/DL (32.0-36.0) Red Cell Distribution Width 15.3 % (11.6-14.8) H Platelet Count 181 K/UL (150-450) Mean Platelet Volume 6.5 FL (6.5-10.1) Neutrophils (%) (Auto) % (45.0-75.0) Lymphocytes (%) (Auto) % (20.0-45.0) Monocytes (%) (Auto) % (1.0-10.0) Eosinophils (%) (Auto) % (0.0-3.0) Basophils (%) (Auto) % (0.0-2.0) Differential Total Cells Counted 100 Neutrophils % (Manual) 84 % (45-75) H Lymphocytes % (Manual) 8 % (20-45) L Monocytes % (Manual) 4 % (1-10) Eosinophils % (Manual) 2 % (0-3) Basophils % (Manual) 2 % (0-2) Band Neutrophils 0 % (0-8) Platelet Estimate Adequate Platelet Morphology Normal Hypochromasia 3+ Anisocytosis 1+ Sodium Level 135 MMOL/L (136-145) L Potassium Level 4.6 MMOL/L (3.5-5.1) Chloride Level 104 MMOL/L (98-107) Carbon Dioxide Level 25 MMOL/L (21-32) Anion Gap 6 mmol/L (5-15) Blood Urea Nitrogen 23 mg/dL (7-18) H Creatinine 1.8 MG/DL (0.55-1.30) H Estimat Glomerular Filtration Rate 47.8 mL/min (>60) Glucose Level 108 MG/DL (74-106) H Calcium Level 7.9 MG/DL (8.5-10.1) L Phosphorus Level 4.1 MG/DL (2.5-4.9) Magnesium Level 2.0 MG/DL (1.8-2.4) Total Bilirubin 3.1 MG/DL (0.2-1.0) H Direct Bilirubin 2.4 MG/DL (0.0-0.3) H Aspartate Amino Transf (AST/SGOT) 51 U/L (15-37) H Alanine Aminotransferase (ALT/SGPT) 25 U/L (12-78) Alkaline Phosphatase 178 U/L (46-116) H Total Protein 6.6 G/DL (6.4-8.2) Albumin 1.5 G/DL (3.4-5.0) L Globulin 5.1 g/dL Albumin/Globulin Ratio 0.3 (1.0-2.7) L Plan Problems: (1) Non-compliance Assessment & Plan: Noncompliance with seizure medication with known history of seizures Now had seizure Appreciate neurology input (2) Electrolyte and fluid disorder Assessment & Plan: Likely due to EtOH use and dehydration IV hydration Trend labs (3) Fever (4) Oral thrush (5) Diarrhea (6) Aspiration pneumonia (7) Seizure disorder (8) Tachycardia (9) Altered mental status (10) Alcohol withdrawal seizure (11) Alcohol withdrawal seizure (12) Episode of confusion (13) Coffee ground emesis (14) Gastrointestinal bleed Assessment & Plan: Patient on admission identified to have maroon-colored stool and coffee-ground emesis. Labs noted mild anemia with H&H trending down. No acute active bleed noted but given patient's history high risk for potential ulcers. PPI Appreciate GI input considerations for EGD once stable No evidence of pulmonary embolus, aortic dissection or aneurysm. Posterior basilar consolidation suspicious for pneumonia. Correlate clinically. Trace bilateral pleural effusions. Possible enterocolitis as described above. Please correlate clinically. Mild ascites Fatty liver Cholelithiasis with wall thickening. Cholecystitis not excluded. Small right inguinal hernia containing fat Extensive breathing motion artifact limiting evaluation. We will follow with recommendations thank you (15) Sinus tachycardia (16) Septic shock (17) Sepsis Assessment & Plan: Patient septic leukocytosis improved today lactic acidosis resolved anemia renal function declining electrolyte disturbance US noted picc out transition to oral meds extubated doing well US noted again. liver decompensated HIDA noted and likely cirrhosis delgado AM labs reordered s/p para micro negative improving d/c planning fluid restriction 1.5L (18) Lactic acid acidosis (19) STEFANI (acute kidney injury) (20) Abnormal LFTs (21) High anion gap metabolic acidosis Juanpablo Marcus Mar 15, 2019 15:07
--- NOTE | 2019-03-15 15:37 | Hematology/Onc Progress Note ---
Assessment/Plan Assessment/Plan # Bicytopenia with anemia likely due to liver cirrhosis and hronic etoh use -- stool occult blood +, also with etoh withdrawal, also can be related to meds/abx , Hida shows Limited hepatic uptake and excretion, probably due to hepatocellular disease. Note that previous imaging studies suggest the presence of cirrhotic changes. Also there is potential component of active infection of causing bicytopenia --> anemia panel has been reviewed and results are acd --> continue on folate 1mg po daily (LOW FOLATE) --> Flow cytometry shows no evidence of b-lymphoproliferative disorder --> Hep panel negative --> thoracentesis cytology negative for malignant cells --> plt trend 300k-->170k-->138k-->130k-->126k-->148k-->160k # Anemia of chronic disease, per anemia panel --> hgb trend 8-->7-->8-->9-->8.6-->7.7-->7.9-->8.3-->7.9->8.5-->9-->10-->9.9--> 7.7-->9.4-->8.9-->8.7-->8.5-->8.2-->7.3->7.4 --> peripheral smear reviewed and not noted to have blasts --> may require gi eval when more stable with scope (EGD) --> transfuse if hgb <7 --> cont folic acid and thiamine tabs # Leukocytosis due to Septic shock and severe Lactic acidosis on Levophed and broad-spectrum IV antibiotics. --> per ID care, continue abx --> pressor as needed --> flagyl, cefepime, carmen--> NOW flagyl, ceftriaxone --> wbc trend: 34.9 -->28k-->35k-->17k-->20.7-->22k-->24k-->22k-->20k-->20k # Coagulopathy with a history of liver disease/cirrhosis (HX OF ETOH abuse) with portal htn --> no evidence of gi bleed at this time --> vit K to be given sq on prn basis --> gi on board # Sinus tachycardia up to 170s. No evidence of acute mi --> This is likely due to sepsis and anemia, alcohol withdrawal --> Echo Nl EF 60% # Troponin leak, type 2 --> per cards # Respiratory failure on the vent, now off --> now extubated --> 02/27 the bronchoscope was advanced into both mainstem bronchi and subsegmental bronchi. There was increased secretions b/l, mucopurulent including mucus plugging of the right upper lobe, which was therapeutically aspirated. BAL specimen was sent. --> on nc prn # Transaminitis with elev bilis --> as per gi with ast/alt high --> monitor for resolution of sepsis # ETOH withdrawal --> recommend etoh cessation --> gi is aware # Seizures with noncompliance --> per neuro # Abd ascites due to liver disease --> para prn --> done on 03/14/19 The timing of this note does not necessarily reflect the time of the patient was seen. GREATLY APPRECIATE CONSULTATION. Subjective Constitutional: Denies: no symptoms, chills, fever, malaise, weakness, other HEENT: Denies: no symptoms, eye pain, blurred vision, tearing, double vision, ear pain, ear discharge, nose pain, nose congestion, throat pain, throat swelling, mouth pain, mouth swelling, other Cardiovascular: Denies: no symptoms, chest pain, edema, irregular heart rate, lightheadedness, palpitations, syncope, other Respiratory: Denies: no symptoms, cough, shortness of breath, SOB with excertion, SOB at rest, sputum, wheezing, other Gastrointestinal/Abdominal: Denies: no symptoms, abdomen distended, abdominal pain, black stools, tarry stools, blood in stool, constipated, diarrhea, difficulty swallowing, nausea, poor appetite, poor fluid intake, rectal bleeding , vomiting, other Genitourinary: Denies: no symptoms, burning, discharge, frequency, flank pain, hematuria, incontinence, pain, urgency, other Neurologic/Psychiatric: Denies: no symptoms, anxiety, depressed, emotional problems, headache, numbness, paresthesia, pre-existing deficit, seizure, tingling, tremors, weakness, other Endocrine: Denies: no symptoms, excessive sweating, flushing, intolerance to cold, intolerance to heat, increased hunger, increased thirst, increased urine, unexplained weight gain, unexplained weight loss, other Allergies: Coded Allergies: No Known Allergies (Unverified , 02/10/15) Subjective 02/20: intubated, counts are better, on vent, sbt in process, no f/c, mag low 02/21: endoscopy on hold at this time, bloody stool, plt better, on abx 02/22: no events reported, remains intubated, no bleeding, plt better, k is low, repleted\ 02/23: remains in icu, letargic, flow cytometry showed no evidence of b- lymphoproliferative disorder, c-diif negative, labs reviewed, remains on levo 02/24: in icu, on vent, wbc at 32, id made aware. 02/25: icu, weaning off of vent, labs reviewed, continues on abx 02/26: no fc, no changes reported, wbc high, ongoing hida scan 02/27: no events, bronch to be done today, results pending 02/28: no f/c, restraints++, ogt was inserted 03/01: s/p extubation, self-extubated, otherwise on abx, off pressors 03/02: no events too report, labs have been reviewed, off abx, remains agitated 03/03 no fevers or chills, no changes, breathing better, less altered 03/05: no events, no bleeding, hgb 7.7, on RA only, sating well 03/06: hgb is low, otherwise without event, slightly improved, as per gi transaminitis, bilis are better 03/07: no overnight events, still jaundiced, delgado removed, h/h stable, thoracentesis cytology negative for malignant cells 03/08: patient is asleep, delgado draining well to gravity, no f/c, no major changes , seen by uro 03/09: gross hematuria has improved, seen by uro, no f/c 03/11: is resting in bed, is comfortable, remains relatively unchanged, remains on abx 03/12: no major hematuria noted, in bed, comfortable, labs reviewed, hgb 8.2 03/13: no events to report, no f/c, no major changes, seen by gi 03/14: remains off vent, wbc improved, hgb is lower, para for today 03/15: no events, no bleeding, no fevers, para was done tolerated well yest Objective Objective Current Medications Medications (Trade) Dose Ordered Sig/Tonny Route PRN Reason Start Time Stop Time Status Last Admin Dose Admin Ceftriaxone Sodium 1 gm/ Dextrose 50 ml @ 100 mls/hr Q24H IVPB 03/15/19 18:00 03/20/19 17:59 Chlorhexidine Gluconate (Stephanie-Hex 2%) 1 applic DAILY@2000 TOPIC 03/04/19 20:00 04/03/19 19:59 03/14/19 21:45 Dextrose (Dextrose 50%) 25 ml Q30M PRN IV Hypoglycemia 03/02/19 17:45 03/16/19 16:14 Dextrose (Dextrose 50%) 50 ml Q30M PRN IV Hypoglycemia 03/02/19 17:45 03/16/19 16:14 Iron Sucrose 100 mg/Sodium Chloride 60 ml @ 240 mls/hr BEDTIME IV 03/14/19 21:00 03/18/19 21:14 03/14/19 21:45 Lactobacillus Acidophilus (Culturelle) 1 tab EVERY 12 HOURS ORAL 03/02/19 21:00 03/26/19 17:59 03/15/19 09:09 Lactulose (Cephulac) 10 gm THREE TIMES A DAY ORAL 03/02/19 18:00 04/01/19 12:59 03/15/19 12:01 Lansoprazole (Prevacid) 30 mg EVERY 12 HOURS ORAL 03/13/19 10:30 04/12/19 10:29 03/15/19 09:08 Levetiracetam (Keppra) 500 mg Q12HR ORAL 03/03/19 21:00 04/02/19 20:59 03/15/19 09:08 Metronidazole (Flagyl) 500 mg Q8HR ORAL 03/15/19 14:00 03/20/19 21:59 Midodrine (Pro-Amatine) 5 mg THREE TIMES A DAY ORAL 03/14/19 13:00 04/13/19 12:59 03/15/19 12:01 Ondansetron HCl (Zofran) 4 mg Q6H PRN IVP Nausea & Vomiting 03/02/19 18:30 03/16/19 18:29 Rifaximin (Xifaxan) 550 mg EVERY 12 HOURS ORAL 03/02/19 21:00 03/15/19 23:00 03/15/19 09:08 Tamsulosin HCl (Flomax) 0.8 mg BEDTIME ORAL 03/05/19 21:30 04/04/19 21:29 03/14/19 21:43 Thiamine HCl (Vitamin B1) 100 mg DAILY ORAL 03/07/19 09:00 03/27/19 08:59 03/15/19 09:09 Last 24 Hour Vital Signs Date Time Temp Pulse Resp B/P (MAP) Pulse Ox O2 Delivery O2 Flow Rate FiO2 03/15/19 09:42 Room Air Room Air 03/15/19 08:00 96.7 107 20 108/73 (85) 99 03/15/19 04:00 97.7 92 18 109/77 (88) 97 03/15/19 03:57 90 03/15/19 00:00 97.0 99 18 104/68 (80) 97 03/14/19 23:32 96 03/14/19 20:45 Room Air Room Air 03/14/19 20:00 98.1 105 18 99/63 (75) 97 03/14/19 19:02 97 03/14/19 16:00 97.9 101 18 110/72 (85) 97 03/14/19 16:00 99 03/14/19 12:00 109 03/14/19 12:00 96.7 112 20 111/74 (86) 98 03/14/19 09:00 Room Air Room Air 03/14/19 08:00 116 03/14/19 08:00 97.7 116 18 110/67 (81) 97 03/14/19 04:00 104 03/14/19 04:00 97.3 105 19 96/58 (71) 97 03/14/19 00:00 107 03/14/19 00:00 97.4 93 18 115/76 (89) 98 03/13/19 21:00 Room Air Room Air 03/13/19 20:00 109 03/13/19 20:00 97.3 110 19 110/74 (86) 98 03/13/19 16:00 105 03/13/19 16:00 97.9 106 18 116/74 (88) 99 Intake and Output 03/14/19 03/15/19 19:00 07:00 Intake Total 500 ml Output Total 720 ml Balance 500 ml -720 ml Other 500 ml Output Urine Total 720 ml Labs Test 03/13/19 10:20 03/14/19 04:00 03/14/19 20:00 03/15/19 05:30 White Blood Count 20.1 K/UL (4.8-10.8) 16.3 K/UL (4.8-10.8) 15.3 K/UL (4.8-10.8) Red Blood Count 2.55 M/UL (4.70-6.10) 2.32 M/UL (4.70-6.10) 2.33 M/UL (4.70-6.10) Hemoglobin 8.0 G/DL (14.2-18.0) 7.3 G/DL (14.2-18.0) 7.4 G/DL (14.2-18.0) Hematocrit 24.9 % (42.0-52.0) 22.8 % (42.0-52.0) 23.1 % (42.0-52.0) Mean Corpuscular Volume 98 FL (80-99) 98 FL (80-99) 99 FL (80-99) Mean Corpuscular Hemoglobin 31.5 PG (27.0-31.0) 31.5 PG (27.0-31.0) 31.8 PG (27.0-31.0) Mean Corpuscular Hemoglobin Concent 32.2 G/DL (32.0-36.0) 32.0 G/DL (32.0-36.0) 32.0 G/DL (32.0-36.0) Red Cell Distribution Width 16.2 % (11.6-14.8) 15.2 % (11.6-14.8) 15.3 % (11.6-14.8) Platelet Count 160 K/UL (150-450) 156 K/UL (150-450) 181 K/UL (150-450) Mean Platelet Volume 6.9 FL (6.5-10.1) 6.7 FL (6.5-10.1) 6.5 FL (6.5-10.1) Neutrophils (%) (Auto) % (45.0-75.0) % (45.0-75.0) % (45.0-75.0) Lymphocytes (%) (Auto) % (20.0-45.0) % (20.0-45.0) % (20.0-45.0) Monocytes (%) (Auto) % (1.0-10.0) % (1.0-10.0) % (1.0-10.0) Eosinophils (%) (Auto) % (0.0-3.0) % (0.0-3.0) % (0.0-3.0) Basophils (%) (Auto) % (0.0-2.0) % (0.0-2.0) % (0.0-2.0) Differential Total Cells Counted 100 100 100 Neutrophils % (Manual) 78 % (45-75) 82 % (45-75) 84 % (45-75) Lymphocytes % (Manual) 9 % (20-45) 7 % (20-45) 8 % (20-45) Monocytes % (Manual) 7 % (1-10) 7 % (1-10) 4 % (1-10) Eosinophils % (Manual) 4 % (0-3) 4 % (0-3) 2 % (0-3) Basophils % (Manual) 2 % (0-2) 0 % (0-2) 2 % (0-2) Band Neutrophils 0 % (0-8) 0 % (0-8) 0 % (0-8) Platelet Estimate Adequate Adequate Adequate Platelet Morphology Normal Normal Normal Hypochromasia 2+ 1+ 3+ Anisocytosis 1+ 1+ 1+ Sodium Level 133 MMOL/L (136-145) 135 MMOL/L (136-145) 135 MMOL/L (136-145) Potassium Level 4.9 MMOL/L (3.5-5.1) 5.0 MMOL/L (3.5-5.1) 4.6 MMOL/L (3.5-5.1) Chloride Level 101 MMOL/L (98-107) 103 MMOL/L (98-107) 104 MMOL/L (98-107) Carbon Dioxide Level 25 MMOL/L (21-32) 23 MMOL/L (21-32) 25 MMOL/L (21-32) Anion Gap 7 mmol/L (5-15) 9 mmol/L (5-15) 6 mmol/L (5-15) Blood Urea Nitrogen 22 mg/dL (7-18) 26 mg/dL (7-18) 23 mg/dL (7-18) Creatinine 1.8 MG/DL (0.55-1.30) 1.9 MG/DL (0.55-1.30) 1.8 MG/DL (0.55-1.30) Estimat Glomerular Filtration Rate 47.8 mL/min (>60) 44.8 mL/min (>60) 47.8 mL/min (>60) Glucose Level 135 MG/DL (74-106) 111 MG/DL (74-106) 108 MG/DL (74-106) Calcium Level 8.0 MG/DL (8.5-10.1) 7.7 MG/DL (8.5-10.1) 7.9 MG/DL (8.5-10.1) Uric Acid 4.6 MG/DL (2.6-7.2) Phosphorus Level 4.0 MG/DL (2.5-4.9) 4.1 MG/DL (2.5-4.9) Magnesium Level 1.3 MG/DL (1.8-2.4) 2.0 MG/DL (1.8-2.4) Iron Level 55 ug/dL (50-175) Total Iron Binding Capacity 63 ug/dL (250-450) Percent Iron Saturation 87 % (15-50) Unsaturated Iron Binding 8 ug/dL (112-346) Ferritin 396 NG/ML (8-388) Total Bilirubin 3.2 MG/DL (0.2-1.0) 3.1 MG/DL (0.2-1.0) Direct Bilirubin 0.0 MG/DL (0.0-0.3) 2.4 MG/DL (0.0-0.3) Gamma Glutamyl Transpeptidase 343 U/L (5-85) Aspartate Amino Transf (AST/SGOT) 48 U/L (15-37) 51 U/L (15-37) Alanine Aminotransferase (ALT/SGPT) 29 U/L (12-78) 25 U/L (12-78) Alkaline Phosphatase 186 U/L (46-116) 178 U/L (46-116) C-Reactive Protein, Quantitative 2.6 mg/dL (0.00-0.90) Pro-B-Type Natriuretic Peptide 245 pg/mL (0-125) Total Protein 6.2 G/DL (6.4-8.2) 6.6 G/DL (6.4-8.2) Albumin 1.5 G/DL (3.4-5.0) 1.5 G/DL (3.4-5.0) Globulin 4.7 g/dL 5.1 g/dL Albumin/Globulin Ratio 0.3 (1.0-2.7) 0.3 (1.0-2.7) Vitamin B12 Level > 2000 PG/ML (193-986) Folate 16.0 NG/ML (8.6-58.9) Stool Occult Blood Negative (NEGATIVE) Height (Feet): 5 Height (Inches): 5.00 Weight (Pounds): 165 Objective Gen: NAD Heent: atraumatic Lungs: clear, ++RA sating 95% Heart: HR/BP unstable Abdomen: soft, non-tender, active bowel sounds less dist Extremities: no cce, L femoral cath+, bilateral wrist restraints are off Robert Johnston MD Mar 15, 2019 15:37
[2019-03-15 16:00] VITALS: BP 105/70
--- NOTE | 2019-03-15 17:41 | NUR ---
REHAB/PRE VOCATIONAL COUNSELOR NOTES PT ACCEPTED TO [facility] ROOM 29 BED B SKILLED. [facility] TO TRANSPORT THE PT. [place] [id number] [place], [place] [phone]
[2019-03-15] MEDS ORDERED: cefTRIAXone 1 GM in D5W 50 ML IVPB SCH (18:00)
--- NOTE | 2019-03-15 19:22 | NUR ---
NURSE NOTES: PATIENT VITAL SIGNS STABLE DURING MY SHIFT, NO C/O pain and SOB. PLAN IS TO D/C the patient to [facility] contact # [phone] Report given to Bart BALBUENA @ [facility].patient going to room 29 bed B.
--- NOTE | 2019-03-15 19:50 | NUR ---
NURSE NOTES: Called Dr. Iglesias's exchange regarding clarification of whether or not patient's PICC line will stay upon discharge. Awaiting callback.
--- NOTE | 2019-03-15 19:56 | NUR ---
NURSE NOTES: Received call from Dr. Casanova to keep PICC line in prior to discharge to [facility]. Noted and carried out.
--- NOTE | 2019-03-15 19:58 | NUR ---
NURSE NOTES: blood transfusion ordered d/t HGB 7.4, TYPE AND CROSS DONE, BLOOD BANK CALLED AT 1800 NOTED BLOOD IS READY HOWEVER, PATIENT SCHEDULED TO D/C @ [address] BLANCO " DO NOT HOLD PATIENT FOR BLOOD TRANSFUSION" REPORT GIVEN TO MERARI BALBUENA
[2019-03-15 20:00] VITALS: BP 107/70
--- NOTE | 2019-03-15 20:01 | NUR ---
NURSE NOTES: Received call from Slim from [facility] with information that patient will be picked up by a different company called Ambulance according to insurance purposes with ETA of 2100.
--- NOTE | 2019-03-15 20:02 | NUR ---
NURSE NOTES: Received report from ESHA Barreto. Patient is asleep lying semi-lemus's; resting comfortably. Arousable to verbal and tactile stimuli. No signs of acute distress noted; denies pain at this time. AOx4; able to make needs known. Checked left upper arm PICC line; patent and flushed. No erythema, bleeding, or infiltration noted. Condom catheter draining well to gravity. Bed at lowest position, brakes on, siderails up x3. Siderails padded following seizure precautions. Call light within reach. Will continue to monitor.
[2019-03-15] MEDS ORDERED: Tubing IV Secondary IV ONE (21:19)
--- NOTE | 2019-03-15 21:38 | NUR ---
NURSE NOTES: Patient was discharged to [facility] via draw sheet method, 3 ambulance staff member assist without incident. No signs of acute distress noted; denies pain at this time. Vital signs stable upon discharge. Patient taken off Tele box; tolerated well. PICC line kept in place as ordered. Discharge packet with medication list given and explained to ambulance staff; verbalized understanding. Belongings list checked. Report given to RUBEN Bolton.
--- NOTE | 2019-03-16 08:14 | Diagnostic Imaging Report ---
Indications: Ascites Technique: Ultrasound used to localize optimal puncture site. Sterile prepping and draping was utilized. Local anesthesia with 1% lidocaine. Under real-time ultrasound guidance, peritoneal space was accessed using paracentesis needle. Stylet removed. Catheter placed to vacuum bottle suction. Total 3.65 liters of cloudy fluid aspirated. Patient tolerated procedure well, without immediate complication. Findings: Followup sonography demonstrates significant reduction in peritoneal fluid. Impression: Successful ultrasound-guided paracentesis, yielding 3.65 liters of fluid
== END 2019-03-15 21:20 | DRG 720 ==
LOC: EDBD 11:10 → EMR 11:56 → EDBEDREQ 14:39 → 2E 16:10 → 2W 02-15 12:40 → ICU 02-15 22:03 → 2E 03-02 17:30
PROC: 06HM33Z Insertion of Infusion Device into Right Femoral Vein, Percutaneous Approach (ICD-10-PCS; 2019-02-15)
PROC: 5A1955Z Respiratory Ventilation, Greater than 96 Consecutive Hours (ICD-10-PCS; principal; 2019-02-16)
PROC: 0BH18EZ Insertion of Endotracheal Airway into Trachea, Via Natural or Artificial Opening Endoscopic (ICD-10-PCS; principal; 2019-02-16)
PROC: B548ZZA Ultrasonography of Superior Vena Cava, Guidance (ICD-10-PCS; 2019-02-19)
PROC: 02HV33Z Insertion of Infusion Device into Superior Vena Cava, Percutaneous Approach (ICD-10-PCS; 2019-02-19)
PROC: 0B9C7ZX Drainage of Right Upper Lung Lobe, Via Natural or Artificial Opening, Diagnostic (ICD-10-PCS; 2019-02-27)
PROC: 0DB78ZX Excision of Stomach, Pylorus, Via Natural or Artificial Opening Endoscopic, Diagnostic (ICD-10-PCS; 2019-03-01)
PROC: 0W9G3ZZ Drainage of Peritoneal Cavity, Percutaneous Approach (ICD-10-PCS; 2019-03-04)
PROC: B518ZZA Fluoroscopy of Superior Vena Cava, Guidance (ICD-10-PCS; 2019-03-04)
PROC: 02HV33Z Insertion of Infusion Device into Superior Vena Cava, Percutaneous Approach (ICD-10-PCS; 2019-03-04)
PROC: 0W9G3ZZ Drainage of Peritoneal Cavity, Percutaneous Approach (ICD-10-PCS; 2019-03-09)
PROC: 0W9G3ZZ Drainage of Peritoneal Cavity, Percutaneous Approach (ICD-10-PCS; 2019-03-14)
DX: A41.51 Sepsis due to Escherichia coli [E. coli] (principal); R65.21 Severe sepsis with septic shock; J69.0 Pneumonitis due to inhalation of food and vomit; Z99.11 Dependence on respirator [ventilator] status; J18.9 Pneumonia, unspecified organism; N17.9 Acute kidney failure, unspecified; B37.0 Candidal stomatitis; N39.0 Urinary tract infection, site not specified; F10.239 Alcohol dependence with withdrawal, unspecified; J96.01 Acute respiratory failure with hypoxia; Z91.14 Patient's other noncompliance with medication regimen; E86.0 Dehydration; K92.0 Hematemesis; G40.802 Other epilepsy, not intractable, without status epilepticus; E87.6 Hypokalemia; D64.9 Anemia, unspecified; R31.0 Gross hematuria; R33.9 Retention of urine, unspecified; N31.9 Neuromuscular dysfunction of bladder, unspecified; K70.31 Alcoholic cirrhosis of liver with ascites; K44.9 Diaphragmatic hernia without obstruction or gangrene; K76.6 Portal hypertension; K31.89 Other diseases of stomach and duodenum; R19.7 Diarrhea, unspecified; R04.2 Hemoptysis; D69.6 Thrombocytopenia, unspecified; E83.39 Other disorders of phosphorus metabolism; E83.42 Hypomagnesemia; D65 Disseminated intravascular coagulation [defibrination syndrome]
CPT/HCPCS: 31645; 36415; 36569; 36600; 71045; 71275; 74018; 74175; 74176; 76700; 76937; 76942; 78266; 78807; 80048; 80053; 80061; 80076; 80170; 80185; 80202; 80299; 80307; 81001; 81003; 82140; 82150; 82248; 82270; 82330; 82533; 82550; 82553; 82607; 82728; 82746; 82784; 82787; 82803; 82962; 82977; 83036; 83540; 83550; 83605; 83690; 83735; 83880; 84100; 84443; 84484; 84550; 85007; 85025; 85379; 85610; 85651; 85730; 86140; 86665; 86695; 86705; 86709; 86803; 86850; 86900; 86901; 86920; 86927; 87040; 87070; 87086; 87181; 87205; 87324; 87340; 87497; 89051; 93005; 93306; 93970; 94002; 94003; 94150; 94660; 94664; 95819; 99285; A9570; J1165; J2250; J2370; J2405; J3430